=== PATIENT | male | born 1950 | race Caucasian/White ===

== ENCOUNTER 2023-12-16 09:33 | Outpatient (OUT) | payer MEDICARE, SELFPAY ==
--- OUTSIDE RECORDS SUMMARY | 2023-12-16 09:43 | XMS_ITS | CCD ---
Author Name Unknown Address [address] [place] [address] Organization [facility] Care Team Providers Care Linux Programmer Name Role Phone PHYSICIAN, DEFAULT Unavailable Unavailable PHYSICIAN, DEFAULT Unavailable Unavailable PHYSICIAN, DEFAULT Unavailable Unavailable PHYSICIAN, DEFAULT Unavailable Unavailable Cabrera Dupont Unavailable Cabrera Dupont MD Primary Care Provider Unavailable Unavailable Dr. Cabrera Dupont Primary Care Unavailab delilah Osborne, Dr. Mandie Piper Attending Irmai tiffanyle India, Dr. Mandie Piper Referring Unavai lable Self, Referral Referring Unavailable Hatipoglu, Dr. Mandie Piper Attending Syed Dupnot, Dr. Cabrera Gaspar Primary Care Unavailab delilah QUIROZ, DR JOSELUIS Austin Primary Care Unavailable TONY ADHIKARI Attending Unavailable TONY ADHIKARI Admitting Unavailable MISC, DR LOZADA Attending Unavailable GLOUCESTER, DR GEORGIE Erwin Consulting Unavailable QUIROZ, DR JOSELUIS Austin Primary Care Unavailable MISC, DR LOZADA Admitting Unavailable MISC, DR LOZADA Consulting Unavailable ELICEO ROSENBERG Admitting Unavailable QUIROZ, DR JOSELUIS Austin Primary Care Unavailable ELICEO ROSENBERG Attending Unavailable SHAKIRAELICEO Shepherd Consulting Unavailable MAUREENJANEE Consulting Unavailable MAUREENJANEE Admitting Unavailable MAUREENJANEE Attending Unavailable QUIROZ, DR JOSELUIS Austin Primary Care Unavailable QUIROZ, DR JOSELUIS Austin Consulting Unavailable RICHIE, DR JOSELUIS Austin Primary Care Unavailable MISC, DR LOZADA Attending Unavailable MISC, DR LOZADA Admitting Unavailable RICHIE, DR JOSELUIS Austin Primary Care Unavailable QUIROZ, DR JOSELUIS Austin Attending Unavailable QUIROZ, DR JOSELUIS Austin Admitting Unavailable ZIEBER, DR RAPHAEL Dacosta Consulting Unavailable PAY ., DR CARDOSO Attending Unavailable QUIROZ, DR JOSELUIS Austin Primary Care Unavailable PAY ., DR CARDOSO Admitting Unavailable PAY ., DR CARDOSO Consulting Unavailable HAY ., DR ANGEL Admitting Unavailable RICHIE, DR JOSELUIS Austin Primary Care Unavailable ALEJANDRO ., DR ANGEL Attending Unavailable HAY ., DR ANGEL Consulting Unavailable OZ, RY Consulting Unavailable BARAMALIAI, JESÚS Attending Unavailable SHAKIRA, ELICEO Attending Unavailable BARAZI, JESÚS Attending Unavailable SHAKIRA, ELICEO Admitting Unavailable SHAKIRA, ELICEO Attending Unavailable JACOB, DIDI Admitting Unavailable MEGAN, MARY Attending Unavailable SHAKIRA, ELICEO Admitting Unavailable SHAKIRA, ELICEO Attending Unavailable YEARTY, TONY Attending Unavailable BARAZI, JESÚS Attending Unavailable BARAZI, JESÚS Attending Unavailable SHAKIRA, ELICEO Referring Unavailable SHAKIRA, ELICEO Referring Unavailable SHAKIRA, ELICEO Referring Unavailable SHAKIRA, ELICEO Referring Unavailable SHAKIRA, ELICEO Attending Unavailable SHAKIRA, ELICEO Referring Unavailable MCKOY, LORY Referring Unavailable MCKOY, LORY Referring Unavailable MAUREEN, JANEE Attending Unavailable Joseluis Quiroz Unavailable Allergies Allergy Classification Reported Allergen(s) Allergy Type Date of Onset Reaction(s) Facility (2 sources) Lisinopril; Translations: [LISINOPRIL] Drug Allergy 04-28-2015 Other: See Comments [facility] Work Phone: Medications Current Medications Medication Drug Class(es) Dates Sig (Normalized) Sig (Original) Amiodarone (1 source) Antiarrhythmic Amiodarone Activ e apixaban 5 mg oral tablet (6 sources) Factor Xa Inhibitor take 1 tablet by mouth every twelve hours Eliquis 5 MG 1 tablet twice a day Active Ascorbic Acid / Beta Carotene / cuprous oxide / Lutein / sodium selenate / Vitamin E / Zinc Oxide (20 sources) Vitamin C Start: 07-12-2022 Ocuvite Adult 50+ Ocuvite Adult 50+( Oral 1 capusle every other day ) Active -Hx Entry Oral every other day for 0 *Pick strength-form from [facility] for eRX* Jul, Active Ocuvite TABS WYATT E 1 TABLET DAILY. Quantity: 0 Refills: 0 Ordered: 30-Nov-2020 DO Active BD Pen Needle Mini U/F (6 sources) BD Pen Needle Mi ni U/F BD Pen Needle Mini U/F , 2 (two) Injection Injection as directed # 2, 11/16/2021, Ref. x1. Active as directed for 90 days patient takes 2 injections daily Active 24 hr buPROPion hydrochloride 150 mg extended release oral tablet (20 sources) Aminoketone Start: 07-23-2022 take 1 tablet by mouth every twenty-four hours buPROPion HCl ER (XL) 150 MG 1 tablet in the morning Oral Once a day *Pick strength-form from [facility] for eRX* Jul, Active Start: 07-23-2022 take 1 tablet by woody th twice daily buPROPion HCl ER (XL) 150MG buPROPion HCl ER (XL) 150MG, 1 (one) Tablet Tablet two times daily # 180, 07/23/2022, Ref. x1. Active Oral two times daily for 0 *Pick strength-form from [facility] for eRX* Jul, Active Start: 04-13-2020 take 1 tablet by woody th twice daily buPROPion SR (ZYBAN SR; WELLBUTRIN SR) 150 mg 12 hr tablet Take 1 tablet by mouth twice daily. 180 tablet 1 04/13/2020 Active take 1 tablet by woody twice daily buPROPion HCl ER (XL) 150 MG TAKE 1 TABLET BY MOUTH TWICE A DAY Active take 1 tablet by woody once daily Wellbutrin SR 150 MG Oral Tablet Extended Release 12 Hour TAKE 1 TABLET EVERY 12 HOURS DAILY. Quantity: 0 Refills: 0 Ordered: 30-Nov-2020 DO Active Comment on above: Take 1 tablet by woody th twice daily. cabergoline 0.5 mg oral tablet (20 sources) Ergot Derivative Start: 04-13-20 20 Cabergoline 0.5MG Cabergoline( 0.5MG Oral every other day ) Active -Hx Entry Oral every other day for 0 *Pick strength-form from [facility] for eRX* Jul, Active Comment on above: Take one tablet ever y other day carvedilol 6.25 mg oral tablet (6 sources) alpha-Adrenergic Argelia, beta-Adrenergic Argelia take 1 tablet by mouth every twelve hours Carvedilol 6.25 MG 1 tablet twice a day Active Citracal Plus (5 sources) Citracal Plus Ac tive dapagliflozin 10 mg oral tablet (6 sources) Sodium-Glucose Cotransporter 2 Inhibitor take 1 tablet by mouth every twenty-four hours Farxiga 10 MG 1 tablet once a day Active escitalopram 10 mg oral tablet (5 sources) Serotonin Reuptake Inhibitor Start: 08-19-20 23 take 1 tablet by mouth every twenty-four hours Lexapro 10 MG 1 tablet Orally Once a day for 30 day(s) Aug, Active esomeprazole 40 mg delayed release oral capsule (20 sources) Proton Pump Inhibitor Esomeprazo le Magnesium 40 MG TAKE 1 CAPSULE DAILY for 90 Active take 1 capsule by mouth once karen ly esomeprazole 20 mg capsule Indications: Thyroid nodule , 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HCC) , Type II or unspecified type diabetes mellitus without mention of complication, uncontrolled , Hypogonadism male , Hypercalcemia Take 20 mg by mouth once daily. 0 Active Comment on above: Take 20 mg by mouth once daily. lisinopril 5 mg oral tablet (6 sources) Angiotensin Converting Enzyme Inhibitor take 1 tablet by mouth every twenty-four hours Lisinopril 5 MG 1 tablet once a day for 90 days Active sildenafil 25 mg oral tablet (6 sources) Phosphodiesterase 5 Inhibitor Start: 07-12-20 22 take 1 tablet by mouth once daily Sildenafil Citrate 25MG Sildenafil Citrate 25MG, 1 (one) Tablet daily as directed # 10, 07/12/2022, Ref. x2. Active Oral daily as directed for 30 *Pick strength-form from [facility] for eRX* Jul, Active take 1 tablet by woody once daily as needed Sildenafil Citrate 50 MG 1 tablet as nee ded Orally daily as directed for 30 days *Pick strength-form from [facility] for eRX* Active spironolactone 25 mg oral tablet (6 sources) Aldosterone Antagonist Aldactone 25 MG 1/2 tablet once a day Active Testosterone (20 sources) Androgen Start: 07-12-2022 AndroGel 50 MG/5GM(1%) AndroGel( 50 MG/5GM(1%) Transdermal daily ) Active -Hx Entry Transdermal daily for 0 *Reorder from [facility] for eRx and Interaction Alerts* Jul, Active Start: 11-30-2020 Testosterone 5 0 MG/5GM (1%) Transdermal Gel APPLY 1 PACKET ONE TIME DAILY DIRECTED Quantity: 90 Refills: 1 Ordered: 10-Oct-2022 Mandie Osborne MD Start : 30-Nov-2020 Active Start: 05-27-2020 End: 05-22-2024 Testosterone 50 MG/5GM (1%) 1 pump to skin in the morning to the underarm Transdermal Once a day for 90 days Jul, Active Comment on above: APPLY CONTENTS OF 1 PACKET TO AFFECTED AREA ONCE DAILY DIRECTED Completed/Discontinued Medications Medication Drug Class(es) Dates Sig (Normalized) Sig (Original) Ascorbic Acid (1 source) Vitamin C ASCORBIC ACID (VITAMIN C ORAL) Take by mouth once daily. 0 Active Comment on above: Take by mouth once d aily. aspirin 81 mg delayed release oral tablet (1 source) Platelet Aggregation Inhibitor, Nonsteroidal Anti-inflammatory Drug take 1 tablet by mouth once daily aspirin, enteric coated (ASPIRIN, ENTERIC COATED) 81 mg EC tablet Take 81 mg by mouth once daily. 0 Active Comment on above: Take 81 mg by mouth once daily. atorvastatin 10 mg oral tablet (20 sources) HMG-CoA Reductase Inhibitor Start: 01-21-2019 take 1 tablet by mouth once daily at bedtime atorvastatin (LIPITOR) 10 mg tablet Take 1 tablet by mouth daily at bedtime. 0 01/21/2019 Active Atorvastatin Wilfrid cium 40 MG 1/2 tab once a day Active take 1 tablet by mouth once chip y Atorvastatin Calcium 20 MG Oral Tablet TAKE 1 TABLET DAILY. Quantity: 90 Refills: 3 Ordered: 24-Apr-2022 Mandie Osborne MD Active Comment on above: Take 1 tablet by woody th daily at bedtime. Calcium Citrate (16 sources) Citracal TABS TA KE 1 TABLET TWICE DAILY. Quantity: 0 Refills: 0 Ordered: 30-Nov-2020 DO Active clopidogrel 75 mg oral tablet (16 sources) P2Y12 Platelet Inhibitor take 1 tablet by mouth once daily Plavix 75 MG Oral Tablet TAKE 1 TABLET DAILY. Quantity: 30 Refills: 6 Ordered: 30-Nov-2020 DO Active CYANOCOBALAMIN, VITAMIN B-12, (VITAMIN B-12 ORAL) (1 source) CYANOCOBALAMIN, VITAMIN B-12, (VITAMIN B-12 ORAL) Take by mouth once daily. 0 Active Comment on above: Take by mouth once d aily. docosahexaenoic acid 120 mg / eicosapentaenoic acid 180 mg oral capsule (16 sources) take 1 capsule by mouth once daily Fish Oil 1000 MG Oral Capsule Take one capsule daily Quantity: 0 Refills: 0 Ordered: 30-Nov-2020 DO Active hydrOXYzine hydrochloride 25 mg oral tablet (6 sources) Antihistamine take 1 tablet by mouth at bedtime as needed hydrOXYzine HCl - 25 MG Oral Tablet TAKE 1 TABLET AT BEDTIME NEEDED Quantity: 0 Refills: 0 Ordered: 30-Nov-2020 DO Active 3 ml insulin glargine 100 unt/ml pen injector (20 sources) Insulin Analog Start: 04-13-20 20 insulin glargine (LANTUS SOLOSTAR U-100 INSULIN) 100 unit/mL (3 mL) INJECT 50 UNITS UNDER THE SKIN TWICE A DAY 45 mL 1 04/13/2020 Active Lantus 30 Subcut aneous daily Active Lantus SoloStar 100 UNIT/ML Subcutaneous Solution Pen-injector INJECT 30 UNITS IN THE MORNING Quantity: 3 Refills: 3 Ordered: 10-Oct-2022 Mandie Osborne MD Active inject 25 [IU] by berrios bcutaneous injection in the morning, then inject 12 [IU] by subcutaneous injection at bedtime Lantus SoloStar 100 UNIT/ML Subcutaneous Solution Pen-injector Inject 25 units in the morning and 12 units at bedtime Quantity: 3 Refills: 3 Ordered: 21-Aug-2021 Mandie Osborne MD Active Comment on above: INJECT 50 UNITS UNDE R THE SKIN TWICE A DAY iv contrast (will be provided with radiology test) (1 source) Start: 01-22-20 19 iv contrast (will be provided with radiology test) Indications: Abnormal weight loss , Pituitary adenoma with extrasellar extension (HCC) MRI Pituitary Inject, intravenously, once for 1 dose. No IV access, insert saline lock prior to the beginning of sedation, infusion, injection of imaging exam. Discontinue saline lock post exam. If Pt. has a central line or IVAD, may access for administration according to line specific nursing protocol. Once exam is complete flush line and de-access according to line specific nursing protocol in the MR contrast administration guidelines link. 1 Each 1 01/21/2019 Active Comment on above: MRI Pituitary Inject , intravenously, once for 1 dose. No IV access, insert saline lock prior to the beginning of sedation, infusion, injection of imaging exam. Discontinue saline lock post exam. If Pt. has a central line or IVAD, may access for administration according to line specific nursing protocol. Once exam is complete flush line and de-access according to line specific nursing protocol in the MR contrast administration guidelines link. levothyroxine sodium 0.075 mg oral tablet (20 sources) l-Thyroxine Start: 04-13-20 take 0.5 tablet by mouth once daily Levothyroxine Sodium 75 MCG Oral Tablet take 1/2 tablet daily Quantity: 45 Refills: 1 Ordered: 29-May-2023 Mandie Osborne MD Start : 14-Nov-2021 Active Levothyroxine So dium 75 MCG 1/2 tab once a day Active Comment on above: Take 0.5 tablets by mouth once daily. melatonin 5 mg oral capsule (10 sources) Start: 04-24-2022 Melatonin 5 MG Oral Capsule TAKE 1 CAPSULE BY MOUTH NEEDED. Quantity: 0 Refills: 0 Ordered: 24-Apr-2022 DO Start : 24-Apr-2022 Active metFORMIN hydrochloride 500 mg oral tablet (20 sources) Biguanide Start: 12-20-2021 metFORMIN HCl - 1000 MG Oral Tablet Quantity: 180 Refills: 0 Ordered: 20-Dec-2021 DO Start : 20-Dec-2021 Active Start: 11-27-2021 take 1 tablet by woody th twice daily metFORMIN HCl 500 MG metFORMIN HCl 500MG, 1 (one) Tablet Tablet two times daily # 60, 11/27/2021, No Refill. Active Oral nightly for 0 days Nov, Active Start: 09-25-2019 metFORMIN (GLU COPHAGE) 500 mg tablet TAKE 2 TABLETS TWICE A DAY WITH MEALS 360 tablet 4 09/25/2019 Active take 1 tablet by woody th once daily metFORMIN HCl - 500 MG Oral Tablet TAKE 1 TABLET DAILY. Quantity: 90 Refills: 1 Ordered: 08-Nov-2021 Mandie Osborne MD Active Comment on above: TAKE 2 TABLETS TWICE A DAY WITH MEALS MULTIVIT &MINERALS/FERROUS FUM (MULTI VITAMIN ORAL) (1 source) MULTIVIT &MINERALS/FERROUS FUM (MULTI VITAMIN ORAL) Take by mouth once daily. 0 Active Comment on above: Take by mouth once d aily. 24 hr oxybutynin chloride 5 mg extended release oral tablet (6 sources) Cholinergic Muscarinic Antagonist take 1 tablet by mouth twice daily Oxybutynin Chloride ER 5 MG Oral Tablet Extended Release 24 Hour Take one tablet twice daily Quantity: 0 Refills: 0 Ordered: 30-Nov-2020 DO Active ramipril 5 mg oral capsule (6 sources) Angiotensin Converting Enzyme Inhibitor Start: take 1 capsule by mouth once daily Ramipril 5 MG Oral Capsule TAKE 1 CAPSULE ONCE DAILY. Quantity: 30 Refills: 11 Ordered: 10-Oct-2022 Mandie Osborne MD Start : 10-Oct-2022 Active Problems Active Problems Problem Classification Problem Date Documented Date Episodic/Chronic Abdominal pain (6 sources) Abdominal pain; Translations: [Unspecified abdominal pain] Episodic Anxiety disorders (9 sources) Anxiety; Translations: [Anxiety disorder, unspecified] Chronic Cardiac and circulatory congenital anomalies (2 sources) Patent foramen ovale; Translations: [Patent foramen ovale] Onset: 11-28-2022 Chronic Cardiac dysrhythmias (15 sources) Paroxysmal atrial fibrillation; Translations: [Unspecified atrial fibrillation] Onset: 10-16-2022 Chronic Conduction disorders (1 source) Unspecified right bundle-branch block; Translations: [UNSPECIFIED RT BUNDLE-BRANCH BLOCK] Onset: 11-13-2022 Chronic Congestive heart failure; nonhypertensive (15 sources) Chronic systolic (congestive) heart failure; Translations: [Acute on chronic systolic (congestive) heart failure] Onset: 11-13-2022 Chronic Diabetes mellitus with complications (20 sources) Type 2 diabetes mellitus; Translations: [Diabetes with other specified manifestations, type II or unspecified type, not stated as uncontrolled] Onset: 09-24-2012 09-08-2015 Chronic Diabetes mellitus without complication (3 sources) Type 2 diabetes mellitus without complications; Translations: [TYPE 2 DM WITHOUT COMPLICATIONS] Onset: 10-26-2022 Chronic Disorders of lipid metabolism (20 sources) Hyperlipidemia; Translations: [Other and unspecified hyperlipidemia] Onset: 06-26-2022 Chronic Esophageal disorders (1 source) Gastro-esophageal reflux disease without esophagitis; Translations: [GERD WITHOUT ESOPHAGITIS] Onset: 11-13-2022 Chronic Nausea and vomiting (6 sources) Nausea; Translations: [Nausea] Episodic Osteoarthritis (1 source) Unspecified osteoarthritis, unspecified site; Translations: [UNSPECIFIED OSTEOARTHRITIS UNS SITE] Onset: 11-13-2022 Chronic Other aftercare (6 sources) Long-term current use of insulin; Translations: [MCC (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 insulin] Episodic Other and unspecified benign neoplasm (16 sources) Pituitary macroadenoma; 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] Episodic Other circulatory disease (2 sources) Personal history of other diseases of the circulatory system; Translations: [Personal history of other diseases of the circulatory system] Onset: 05-03-2023 Episodic Other endocrine disorders (17 sources) Male hypogonadism; Translations: [Other testicular hypofunction] Onset: 12-23-2012 12-23-2012 Chronic Other endocrine disorders (6 sources) Hypogonadotropic hypogonadism; Translations: [Other anterior pituitary disorders] Chronic Other endocrine disorders (1 source) Testicular hypofunction; Translations: [TESTICULAR HYPOFUNCTION] Onset: 11-13-2022 Chronic Other male genital disorders (5 sources) Secondary erectile dysfunction; Translations: [Erectile dysfunction due to diseases classified elsewhere] Chronic Other male genital disorders (1 source) Erectile dysfunction due to diseases classified elsewhere Chronic Other nutritional; endocrine; and metabolic disorders (1 source) Hypercalcemia; Translations: [Hypercalcemia] Onset: 12-23-2012 12-23-2012 Chronic Other nutritional; endocrine; and metabolic disorders (6 sources) Loss of appetite; Translations: [Anorexia] Episodic Other nutritional; endocrine; and metabolic disorders (6 sources) Weight loss; Translations: [Abnormal weight loss] Episodic Other screening for suspected conditions (not mental disorders or infectious disease) (2 sources) Cardiovascular stress test abnormal; Translations: [Abnormal result of other cardiovascular function study] Onset: 04-28-2015 04-28-2015 Episodic Angelica-; endo-; and myocarditis; cardiomyopathy (except that caused by tuberculosis or sexually transmitted disease) (2 sources) Cardiomyopathy, unspecified; Translations: [Cardiomyopathy, unspecified] Onset: 10-26-2022 Chronic Residual codes; unclassified (2 sources) Other specified postprocedural states; Translations: [Other specified postprocedural states] Onset: 05-03-2023 Episodic 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; 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] Onset: 11-16-2009 11-16-2009 Chronic Unclassified (1 source) CONTACT W/AND (SUSP) EXPOS COVID-19; Translations: [CONTACT W/AND (SUSP) EXPOS COVID-19] Onset: 11-13-2022 Unclassified (2 sources) Other persistent atrial fibrillation; Translations: [Other persistent atrial fibrillation] Onset: 05-03-2023 Past or Other Problems Problem Classification Problem Date Documented Da te Episodic/Chronic Menopausal disorders (1 source) Hormone replacement therapy; Translations: [HORMONE REPLACEMENT THERAPY] Onset: 11-13-2022 Episodic Other aftercare (1 source) Other precision lens polisher (current) drug therapy; Translations: [OTH SNF CURRENT DRUG THERAPY] Onset: 11-13-2022 Episodic Other aftercare (1 source) budget counselor (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 oral hypoglycemic drugs; Translations: [SNF USE ORAL HYPOGLYCEMIC DX] Onset: 11-13-2022 Episodic Other aftercare (1 source) MCC (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 insulin; Translations: [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 CONVERTER OPERATOR CURRENT USE OF INSULIN] Onset: 11-13-2022 Episodic Other aftercare (1 source) MCC (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 aspirin; Translations: [SNF CURRENT USE OF ASPIRIN] Onset: 10-17-2022 Episodic Other and unspecified benign neoplasm (1 source) Prolactinoma; 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 gland] Onset: 11-16-2009 11-16-2009 Episodic Other and unspecified benign neoplasm (4 sources) Benign neoplasm of pituitary gland; Translations: [BENIGN NEOPLASM OF PITUITARY GLAND] Onset: 06-22-2022 Episodic Other circulatory disease (1 source) Personal history of transient ischemic attack (TIA), and cerebral infarction without residual deficits; Translations: [PERS HX TIA AND CI NO RESID DEFICIT] Onset: 11-13-2022 Episodic Other lower respiratory disease (5 sources) Shortness of breath; Translations: [SHORTNESS OF BREATH] Onset: 10-26-2022 Episodic Other lower respiratory disease (1 source) Dyspnea, unspecified; Translations: [DYSPNEA UNSPECIFIED] Onset: 10-17-2022 Episodic Screening and history of mental health and substance abuse codes (1 source) Personal history of nicotine dependence; Translations: [PERSONAL HISTORY OF NICOTINE DEPEND] Onset: 11-13-2022 Episodic Sprains and strains (1 source) Strain of rotator cuff of shoulder; Translations: [Strain of muscle(s) and tendon(s) of the rotator cuff of unspecified shoulder, initial encounter] Onset: 06-16-2013 06-16-2013 Episodic Syncope (2 sources) Syncope and collapse; Translations: [Syncope and collapse] Onset: 10-26-2022 Episodic Results Test Name Value Interpretation Reference Range Facility Office Visiton 07-30-2023 Follow-up visit [id number] Gadiel Liang 1950 M Date Provider Department Center 07/30/2023 JESÚS SIMPSON [facility] Family History Problem Relation Age of Onset No Known Problems Mother No Known Problems Father No Known Problems Sister No Known Problems Brother No Known Problems Mother's Sister No Known Problems Mother's Brother No Known Problems Father's Sister No Known Problems Father's Brother No Known Problems Maternal Grandmother No Known Problems Maternal Grandfather No Known Problems Paternal Grandmother No Known Problems Paternal Grandfather No Known Problems Other Family Status - Relation Status Age at Mother Father Sister Brother Mother's Sister Mother's Brother Father's Sister Father's Brother Maternal Grandmother Maternal Grandfather Paternal Grandmother Paternal Grandfather Other Level of Service:69171 [place] OFFICE/OUTPATIENT ESTABLISHED MOD MDM 30-39 MIN Normal [facility] Follow-Upon 06-05-2023 Follow-Up [id number] Gadiel Liang 1950 [facility] Provider Department Center 06/05/2023 JESÚS SIMPSON Family History Problem Relation Age of Onset No Known Problems Mother No Known Problems Father No Known Problems Sister No Known Problems Brother No Known Problems Mother's Sister No Known Problems Mother's Brother No Known Problems Father's Sister No Known Problems Father's Brother No Known Problems Maternal Grandmother No Known Problems Maternal Grandfather No Known Problems Paternal Grandmother No Known Problems Paternal Grandfather No Known Problems Other Family Status - Relation Status Age at Mother Father Sister Brother Mother's Sister Mother's Brother Father's Sister Father's Brother Maternal Grandmother Maternal Grandfather Paternal Grandmother Paternal Grandfather Other Level of Service:[id number] [place] OFFICE/OUTPATIENT ESTABLISHED MOD MDM 30-39 MIN Normal [facility] Telephoneon 05-30-2023 Telephone [id number] Gadiel Liang 1950 Date Provider Department Center 05/30/2023 Faride[facility] Family History Problem Relation Age of Onset No Known Problems Mother No Known Problems Father No Known Problems Sister No Known Problems Brother No Known Problems Mother's Sister No Known Problems Mother's Brother No Known Problems Father's Sister No Known Problems Father's Brother No Known Problems Maternal Grandmother No Known Problems Maternal Grandfather No Known Problems Paternal Grandmother No Known Problems Paternal Grandfather No Known Problems Other Family Status - Relation Status Age at Mother Father Sister Brother Mother's Sister Mother's Brother Father's Sister Father's Brother Maternal Grandmother Maternal Grandfather Paternal Grandmother Paternal Grandfather Other Normal [facility] Telephone [id number] GarthGadiel 1950 [facility] Provider Department Cyril 05/30/20231986MARLEY MORALES [facility] Family History Problem Relation Age of Onset No Known Problems Mother No Known Problems Father No Known Problems Sister No Known Problems Brother No Known Problems Mother's Sister No Known Problems Mother's Brother No Known Problems Father's Sister No Known Problems Father's Brother No Known Problems Maternal Grandmother No Known Problems Maternal Grandfather No Known Problems Paternal Grandmother No Known Problems Paternal Grandfather No Known Problems Other Family Status - Relation Status Age at Mother Father Sister Brother Mother's Sister Mother's Brother Father's Sister Father's Brother Maternal Grandmother Maternal Grandfather Paternal Grandmother Paternal Grandfather Other Reason for Visit and Comments: 3 week post ablation f/u [Other] [facility] Telephoneon 05-10-2023 Telephone [phone] GarthGadiel 1950 [facility] Department Cyril 05/10/20231986-[facility] [place] HeartVAS Family History Problem Relation Age of Onset No Known Problems Mother No Known Problems Father No Known Problems Sister No Known Problems Brother No Known Problems Mother's Sister No Known Problems Mother's Brother No Known Problems Father's Sister No Known Problems Father's Brother No Known Problems Maternal Grandmother No Known Problems Maternal Grandfather No Known Problems Paternal Grandmother No Known Problems Paternal Grandfather No Known Problems Other Family Status - Relation Status Age at Mother Father Sister Brother Mother's Sister Mother's Brother Father's Sister Father's Brother Maternal Grandmother Maternal Grandfather Paternal Grandmother Paternal Grandfather Other Reason for Visit and Comments: week f/u post ablation [Other] Normal [facility] BASIC METABOLIC PANELon 06-2 Anion gap [Moles/Vol] 9 mmol/L Normal 7-20 [facility] Comment on above: Performed By: #### L [id number] #### [facility] ([facility]) [address] [place] [address] Calcium [Mass/Vol] 8.9 mg/dL Normal 8.6-10.3 [facility] Comment on above: Performed By: #### L [id number] #### [facility] ([facility]) [address] [place] [address] Chloride [Moles/Vol] 104 mmol/L Normal 98-107 [facility] Comment on above: Performed By: #### L [id number] #### [facility] ([facility]) [address] [place] [address] CO2 [Moles/Vol] 28 mmol/L Normal 21-31 [facility] Comment on above: Performed By: #### L [id number] #### [facility] ([facility]) [address] [place] [address] Creatinine [Mass/Vol] 0.79 mg/dL Normal 0.70-1.30 [facility] Comment on above: Performed By: #### L [id number] #### [facility] ([facility]) [address] [place] [address] GLOMERULAR FILTRATION RATE ML/MIN/1.73 SQ M.PREDICTED 95.0 mL/min/1.73m*2 Normal >60.0 [place] [facility] Comment on above: Result Comment: The [facility]???s estimated glomerular filtration rate (eGFR) will no longer include consideration of race in its calculation. The National Kidney Foundation???s eGFR Task Force developed new recommendations for the estimation of the glomerular filtration rate in the [place] They recommend immediate implementation of the new equation refit without the race variable in all laboratories because the calculation does not include race. In addition to not including race in the calculation and reporting, it included diversity in its development, and has acceptable performance characteristics and potential consequences that do not disproportionately affect any one group of individuals. Performed By: #### L [id number] #### [facility] ([facility]) [address] [place] [address] Glucose [Mass/Vol] 176 mg/dL High 70-100 [facility] Comment on above: Performed By: #### L [id number] #### [facility] ([facility]) [address] [place] [address] Potassium [Moles/Vol] 3.6 mmol/L Normal 3.5-5.1 [facility] Comment on above: Performed By: #### L [id number] #### [facility] ([facility]) [address] [place] [address] Sodium [Moles/Vol] 137 mmol/L Normal 136-145 [facility] Comment on above: Performed By: #### L [id number] #### [facility] ([facility]) [address] [place] [address] Urea nitrogen [Mass/Vol] 11 mg/dL Normal 7-25 [facility] Comment on above: Performed By: #### L [id number] #### [facility] ([facility]) [address] [place] [address] UREA NITROGEN/CREATININE (MASS RATIO) IN SER/PLAS 13.9 Normal [facility] Comment on above: Performed By: #### L [id number] #### [facility] ([facility]) [address] [place] [address] CBCon 05-03-2023 Erythrocyte distribution width (RBC) [Ratio] 12.8 % Normal 11.5-15.0 [facility] Comment on above: Performed By: #### L [id number] #### [facility] ([facility]) [address] [place] [address] ERYTHROCYTE MEAN CORPUSCULAR HEMOGLOBIN CONCENTRATION (G/DL) BY AUTOMATED 32.1 g/dL Normal 32.0-35.0 [facility] Comment on above: Performed By: #### L [id number] #### [facility] ([facility]) [address] [place] [address] Hematocrit (Bld) [Volume fraction] 39.3 % Normal 39.0-55.0 [facility] Comment on above: Performed By: #### L [id number] #### [facility] ([facility]) [address] [place] [address] Hemoglobin (Bld) [Mass/Vol] 12.6 g/dL Low 13.0-17.0 [facility] Comment on above: Performed By: #### L [id number] #### [facility] ([facility]) [address] [place] [address] MCH (RBC) [Entitic mass] 29.9 pg Normal 27.0-33.0 [facility] Comment on above: Performed By: #### L [id number] #### [facility] ([facility]) [address] [place] [address] MCV (RBC) [Entitic vol] 93.3 fL Normal 82.0-98.0 [facility] Comment on above: Performed By: #### L [id number] #### [facility] ([facility]) [address] [place] [address] PLATELETS (10*3/UL) IN BLOOD AUTOMATED COUNT 179 10*3/uL Normal 150-400 [facility] Comment on above: Performed By: #### L [id number] #### [facility] ([facility]) [address] [place] [address] RBC (Bld) [#/Vol] 4.21 10*6/uL Normal 4.20-5.70 [facility] Comment on above: Performed By: #### L [id number] #### [facility] ([facility]) [address] [place] [address] WBC (Bld) [#/Vol] 8.32 10*3/uL Normal 4.00-10.60 [facility] Comment on above: Performed By: #### L [id number] #### [facility]) [place] [address] DSon 05-03-2023 DS -- Attestation signed by Eliceo Rosenberg MD at 05/05/2023 4:30 PM By using the attestations below, the signing clinician agrees that I have read and verify that the documentation has been personally reviewed by me and ensure that the documentation accurately reflects the encounter. GC: I personally saw this patient on the day of the encounter, performed the chappell portion(s) of the service and participated in the management and confirm the resident's documentation. Please note there may be an additional personal documentation from me. Admission Admitted 05/02/2023 for Persistent atrial fibrillation (CM* Discharge Diagnosis Persistent atrial fibrillation (CMS/HCC) s/p ablation Discharge Disposition Home or Self Care Discharge Medications Your medication list START taking these medications Instructions Last Dose Given Next Dose Due famotidine 20 mg tablet Commonly known as: Pepcid Take 1 tablet (20 mg) by mouth in the morning and at bedtime. sucralfate 1 gram tablet Commonly known as: Carafate Take 1 tablet (1 g) by mouth in the morning, at noon, and at bedtime for 14 days. CHANGE how you take these medications Instructions Last Dose Given Next Dose Due amiodarone 200 mg tablet Commonly known as: Pacerone What changed: Another medication with the same name was removed. Continue taking this medication, and follow the directions you see here. Take 1 tablet (200 mg) by mouth in the morning. atorvastatin 40 mg tablet Commonly known as: Lipitor What changed: Another medication with the same name was removed. Continue taking this medication, and follow the directions you see here. Take 1 tablet (40 mg) by mouth at bedtime for 30 doses. carvedilol 6.25 mg tablet Commonly known as: Coreg What changed: Another medication with the same name was removed. Continue taking this medication, and follow the directions you see here. Take 1 tablet (6.25 mg) by mouth in the morning and at bedtime for 60 doses. dapagliflozin 10 mg Commonly known as: Farxiga What changed: Another medication with the same name was removed. Continue taking this medication, and follow the directions you see here. Take 1 tablet (10 mg) by mouth in the morning. furosemide 40 mg tablet Commonly known as: Lasix What changed: when to take this reasons to take this Take 1 tablet by mouth daily for fluid retention as directed CONTINUE taking these medications Instructions Last Dose Given Next Dose Due apixaban 5 mg tablet Commonly known as: Eliquis Take 1 tablet (5 mg) by mouth in the morning and at bedtime. buPROPion SR 150 mg 12 hr tablet Commonly known as: Wellbutrin SR cabergoline 0.5 mg tablet Commonly known as: Dostinex esomeprazole [address] capsule Commonly known as: NexIUM Lantus Solostar U-100 Insulin 100 unit/mL (3 mL) pen Generic drug: insulin glargine levothyroxine 75 mcg tablet Commonly known as: Synthroid, Levoxyl lisinopril 5 mg tablet Take 1 tablet (5 mg) by mouth in the morning. metFORMIN 500 mg tablet Commonly known as: Glucophage sildenafil 25 mg tablet Commonly known as: Viagra spironolactone 25 mg tablet Commonly known as: Aldactone Take 0.5 tablets (12.5 mg) by mouth in the evening. Do not start before November 02, 2022. testosterone 50 mg/5 gram (1 %) gel Commonly known as: Androgel STOP taking these medications donepezil 5 mg tablet Commonly known as: Aricept oxybutynin 5 mg tablet Commonly known as: Ditropan Where to Get Your Medications These medications were sent to [facility]/pharmacy #[id number] - [place], [facility] [address] [facility] [address] [address] famotidine 20 mg tablet sucralfate 1 gram tablet Activity No lifting > / = 5 lbs for 1 week No strenuous activity for 1 week No driving for 24 hours following surgery or while using narcotic pain medication. May shower starting 24 hours after procedure May tub bathe/swim starting 1 week after procedure Diet Resume previous diet Allergies Lisinopril and No known allergies Hospital Course Patient is a 72 y/o M with known PMHx of PAF, HFrEF (recovered after sustaining SR), TIA x2, DM type II, HTN, vasovagal syncope who presented to [facility] for an elective a.fib ablation on 05/02/2023. He tolerated procedure well. No acute events overnight. He denies c/o CP, dyspnea, orthopnea, PND, LE edema, dizziness/LH, palpitations, bleeding issues. His BP has been higher than goal. He reports it is typically well controlled when he goes to cardiac rehab. Discussed increasing medications. He would like to hold off on increasing his medications and he will monitor his BP at home. He will call the clinic if he continues to have issues with high BP readings, otherwise he will (more content not included)... Normal [facility] POCT GLUCOSE METER UNSOLICIT ED RESULTSon 05-03-2023 Glucose [Mass/Vol] 289 mg/dL High 70-105 [facility] Comment on above: Order Comment: Waive d Testing in the ED is performed under the ED CLIA certificate #[id number]. Result Comment: libia [email or web address] Performed By: #### L [id number] #### [facility] ([facility]) [address] [place] [address] Glucose [Mass/Vol] 176 mg/dL High 70-105 [facility] Comment on above: Order Comment: Waive d Testing in the ED is performed under the ED CLIA certificate #[id number]. Result Comment: libia dou2 Performed By: #### L [id number] ####[facility] ([facility])[address] [place] [address] HPon 05-02-2023 HP -- Attestation signed by Eliceo Rosenberg MD at 05/05/2023 4:30 PM By using the attestations below, the signing clinician agrees that I have read and verify that the documentation has been personally reviewed by me and ensure that the documentation accurately reflects the encounter. GC: I personally saw this patient on the day of the encounter, performed the chappell portion(s) of the service and participated in the management and confirm the resident's documentation. Please note there may be an additional personal documentation from me. H&P reviewed. The patient was examined and there are no changes to the H&P. Normal [facility] NURSNOTEon 05-02-2023 NURSNOTE went home for t he evening. Will call with room number when patient gets a bed. Normal [facility] POCT GLUCOSE METER UNSOLICIT ED RESULTSon 05-02-2023 Glucose [Mass/Vol] 125 mg/dL High 70-105 [facility] Comment on above: Order Comment: Waive d Testing in the ED is performed under the ED CLIA certificate #[id number]. Result Comment: [email or web address] Performed By: #### L [id number] #### [facility] ([place]) [address] [place] [address] Glucose [Mass/Vol] 113 mg/dL High 70-105 [facility] Comment on above: Order Comment: Waive d Testing in the ED is performed under the ED CLIA certificate #[id number]. Result Comment: lwag enh Performed By: #### L [id number] #### [facility] ([facility]) [address] [place] [address] Glucose [Mass/Vol] 108 mg/dL High 70-105 [facility] Comment on above: Order Comment: Waive d Testing in the ED is performed under the ED CLIA certificate #[id number]. Result Comment: mwer nert Performed By: #### L [id number] #### [facility] ([facility]) [address] [place] [address] Glucose [Mass/Vol] 198 mg/dL High 70-105 [facility] Comment on above: Order Comment: Waive d Testing in the ED is performed under the ED CLIA certificate #[id number]. Result Comment: aepp ink Performed By: #### L [id number] #### [facility] ([facility]) [address] [place] [address] PROTIME-INRon 05-02-2023 INR IN PPP BY COAGULATION ASSAY 0.98 Normal 0.90-1.10 [facility] Comment on above: Result Comment: ACCC P RECOMMENDED INR FOR WARFARIN THERAPY CONDITION INR PROPHYLAXIS OF VENOUS THROMBOSIS 2-3 (HIGH-RISK SURGERY) TREATMENT OF VENOUS THROMBOSIS 2-3 TREATMENT OF PULMONARY EMBOLISM 2-3 PREVENTION OF SYSTEMIC EMBOLISM: 2-3 ACUTE MYOCARDIAL INFARCTION TISSUE HEART VALVES VALVULAR HEART DISEASE ATRIAL FIBRILLATION RECURRENT SYSTEMIC EMBOLISM MECHANICAL HEART VALVE 2.5-3.5 FROM: ORAL ANTICOAGULANTS. MECHANISM OF ACTION, CLINICAL EFFECTIVENESS, AND OPTIMAL THERAPEUTIC RANGE. CHEST 1995;108:231S-246S. Performed By: #### L [id number] #### [facility] ([facility]) [address] [place] [address] PROTHROMBIN TIME (PT) IN PPP BY COAGULATION ASSAY 12.9 Seconds Normal 12.3-14.8 [facility] Comment on above: Performed By: #### L [id number] #### [facility] ([place]) [address] [place] [address] HPon 04-30-2023 [facility] Electrophysiology Consult Note [facility] Date of Telehealth Visit: 04/30/23 The patient was notified that using 3rd republican telecommunication application (e.g., [employer]) is not HIPPA compliant and may carry some privacy risks. Yes The visit was conducted [id number] with the use of audio and video technology Doxy[employer] between patient and provider for a virtual visit. Verbal consent to provide and bill this service was obtained on 04/30/23 . No signature was obtained due to the COVID-19 pandemic. Patient Location: Patient Home I spent 16 minutes of total time on the day of the visit. This time was spent preparing for the visit, obtaining and reviewing any outside history/data, taking a history, performing an exam/evaluation, counseling and educating patient/family about the diagnosis and plan, performing medical decision making, referring to and communicating with other health care referrals, independently interpreting results and documenting in the EMR, and coordinating care. Please see the additional documentation in this note for specific details. Reason for Consultation: Atrial fibrillation HPI: Patient is wanting to discuss about ablation as he s/p conversion to sinus rhythm with Amio. Echocardiogram showed improved EF which was done 02/28/2023 shows normal EF 55 to 60%, moderate dilatation of left atrium. Patient feels well denies any chest pain, shortness of breath, LE edema, EKG 01/29/23 SR. Prior HPI: Gadiel Liang is a 72 y.o. 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 Gadiel is here regarding feeling lightheaded with palpitations on 10/15 and he went to the [facility] emergency department was found to be in A. fib. They did not start him on anything for rate control, rhythm control, or blood thinners. He has not had a cardioversion in the past. And has not received treatment for A. fib in the past. At this time he denies chest pain palpitations lightheadedness dizziness and presyncope. His is on the phone on speaker phone during exam. PMH: Past Medical History: Diagnosis Date Atrial fibrillation (CMS/HCC) AV block, 1st degree CHF (congestive heart failure) (CMS/HCC) Diabetes mellitus (CMS/HCC) GERD (gastroesophageal reflux disease) Hypothyroidism Memory changes PFO (patent foramen ovale) 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CMS/HCC) Stroke (CMS/HCC) TIA (transient ischemic attack) PSH: Past Surgical History: Procedure Laterality Date CARDIAC CATHETERIZATION CARPAL TUNNEL RELEASE CATARACT EXTRACTION COLONOSCOPY PARATHYROIDECTOMY SHOULDER SURGERY VASECTOMY SH: Social Determinants of Health Tobacco Use: Medium Risk Smoking Tobacco Use: Former Smokeless Tobacco Use: Never Passive Exposure: Not on file Alcohol Use: Not on file Financial Resource Strain: Not on file Food Insecurity: Not on file Transportation Needs: Not on file Physical Activity: Not on file Stress: Not on file Social Connections: Not on file Intimate Partner Violence: Not on file Depression: Not on file Housing Stability: Not on file Allergies: Allergies Allergen Reactions Lisinopril Overwhelming fatigue still takes daily Weight: No results found for: PTWEIGHT Meds: Current Outpatient Medications on File Prior to Visit Medication Sig Dispense Refill amiodarone (Pacerone) 200 mg tablet Take 1 tablet (200 mg) by mouth with breakfast and with evening meal for 198 doses. Do not start before November 27, 2022. 60 tablet 3 amiodarone (Pacerone) 200 mg tablet Take 1 tablet (200 mg) by mouth in the morning. 90 tablet 3 apixaban (Eliquis) 5 mg tablet Take 1 tablet (5 mg) by mouth in the morning and at bedtime. 60 tablet 11 atorvastatin (Lipitor) 40 mg tablet Take 1 tablet (40 mg) by mouth at bedtime for 30 doses. 90 tablet 3 atorvastatin (Lipitor) 40 mg tablet Take 40 mg by mouth in the morning. buPROPion SR (Wellbutrin SR) 150 mg 12 hr tablet Take 1 tablet twice a day by oral route. cabergoline (Dostinex) 0.5 mg tablet Take 1 tablet every other day by oral route. carvedilol (Coreg) 6.25 mg tablet Take 1 tablet (6.25 mg) by mouth in the morning and at bedtime for 60 doses. 180 tablet 3 carvedilol (Coreg) 6.25 mg tablet Take by mouth with breakfast and with evening meal. dapagliflozin (Farxiga) 10 mg Take 1 tablet (10 mg) by mouth in the morning. 90 tablet 3 dapagliflozin (Farxiga) 10 mg Take by mouth. donepezil (Aricept) 5 mg tablet TAKE 1 TABLET BY MOUTH EVERY DAY AT BEDTIME FOR 30 DAYS esomeprazole (NexIUM) [address] capsule Take 40 mg by mouth before breakfast. Do not open capsule. furosemide (Lasix) 40 mg tablet Take 1 tablet by mouth daily for fluid retention as directed (Patient taking differently: if needed each day. Take 1 tablet by mouth daily for fluid retention as directed) 90 tablet 3 Lantus Solost (more content not included)... [facility] Telemedicineon 04-30-2023 Telemedicine [id number] Gadiel Liang 1950 M Date Provider Department Center 04/30/2023 ELICEO FORTE RO [facility] Family History Problem Relation Age of Onset No Known Problems Mother No Known Problems Father No Known Problems Sister No Known Problems Brother No Known Problems Mother's Sister No Known Problems Mother's Brother No Known Problems Father's Sister No Known Problems Father's Brother No Known Problems Maternal Grandmother No Known Problems Maternal Grandfather No Known Problems Paternal Grandmother No Known Problems Paternal Grandfather No Known Problems Other Family Status - Relation Status Age at Mother Father Sister Brother Mother's Sister Mother's Brother Father's Sister Father's Brother Maternal Grandmother Maternal Grandfather Paternal Grandmother Paternal Grandfather Other Level of Service:[address] [place] PHYS/QHP TELEPHONE EVALUATION 11-20 MIN [facility] [id number] 04-26-2023 [id number] Nothing to eat or drink after midnight Hold MVI, Herbal Supplements, NSAIDS x 7 days Hold the prescription meds we spoke about: ELIQUIS 48 HRS PRIOR TO PROCEDURE Take the meds we spoke about w/a sip of water DOS: LANTUS, SYNTHROID, AMIODARONE, COREG, WELBUTRIN, NEXIUM [facility] B-TYPE NATRIURETIC PEPTIDEon 04-26-2023 Natriuretic peptide B (Bld) [Mass/Vol] 87 pg/mL Normal 0-100 [facility] Comment on above: Performed By: #### L [id number] #### [facility] ([facility]) [address] [place] [address] CBC WITH AUTO DIFFERENTIALon 04-26-2023 Basophils (Bld) [#/Vol] 0.04 10*3/uL Normal 0.00-0.20 [facility] Comment on above: Performed By: #### L [id number] #### [facility] ([facility]) [address] [place] [address] Basophils/100 WBC (Bld) 0.6 % Normal 0.0-1.0 [facility] Comment on above: Performed By: #### L [id number] #### [facility] ([facility]) [address] [place] [address] Eosinophils (Bld) [#/Vol] 0.21 10*3/uL Normal 0.00-0.50 [facility] Comment on above: Performed By: #### L [id number] #### [facility] ([facility]) [address] [place] [address] Eosinophils/100 WBC (Bld) 3.2 % Normal 0.0-6.0 [facility] Comment on above: Performed By: #### L [id number] #### [facility] ([facility]) [address] [place] [address] Erythrocyte distribution width (RBC) [Ratio] 13.2 % Normal 11.5-15.0 [facility] Comment on above: Performed By: #### L [id number] #### [facility] ([facility]) [address] [place] [address] ERYTHROCYTE MEAN CORPUSCULAR HEMOGLOBIN CONCENTRATION (G/DL) BY AUTOMATED 33.6 g/dL Normal 32.0-35.0 [facility] Comment on above: Performed By: #### L [id number] #### [facility] ([facility]) [address] [place] [address] Hematocrit (Bld) [Volume fraction] 39.9 % Normal 39.0-55.0 [facility] Comment on above: Performed By: #### L [id number] #### [facility] ([facility]) [address] [place] [address] Hemoglobin (Bld) [Mass/Vol] 13.4 g/dL Normal 13.0-17.0 [facility] Comment on above: Performed By: #### L [id number] #### [facility] ([facility]) [address] [place] [address] Immature granulocytes (Bld) [#/Vol] 0.09 10*3/uL Normal 0.00-0.20 [facility] Comment on above: Performed By: #### L [id number] #### [facility] ([facility]) [address] [place] [address] Immature granulocytes/100 WBC (Bld) 1.4 % High 0.0-1.0 [facility] Comment on above: Performed By: #### L [id number] #### [facility] ([facility]) [address] [place] [address] Lymphocytes (Bld) [#/Vol] 1.30 10*3/uL Normal 1.20-4.00 [facility] Comment on above: Performed By: #### L [id number] #### [facility] ([facility]) [address] [place] [address] Lymphocytes/100 WBC (Bld) 19.9 % Low 20.0-45.0 [facility] Comment on above: Performed By: #### L [id number] #### [facility] (BEAKER) [address] [place] [address] MCH (RBC) [Entitic mass] 30.8 pg Normal 27.0-33.0 [facility] Comment on above: Performed By: #### L [id number] #### [facility] (BEAKER) [address] [place] [address] MCV (RBC) [Entitic vol] 91.7 fL Normal 82.0-98.0 [facility] Comment on above: Performed By: #### L [id number] #### [facility] (BANNER) [address] [place] [address] Monocytes (Bld) [#/Vol] 0.77 10*3/uL Normal 0.10-1.00 [facility] Comment on above: Performed By: #### L [id number] #### [facility] ([facility]) [address] [place] [address] Monocytes/100 WBC (Bld) 11.8 % Normal 5.0-12.0 [facility] Comment on above: Performed By: #### L [id number] #### [facility] ([facility]) [address] [place] [address] Neutrophils (Bld) [#/Vol] 4.12 10*3/uL Normal 1.60-7.60 [facility] Comment on above: Performed By: #### L [id number] #### [facility] ([facility]) [address] [place] [address] Neutrophils/100 WBC (Bld) 63.1 % Normal 40.0-72.0 [facility] Comment on above: Performed By: #### L [id number] #### [facility] ([facility]) [address] [place] [address] NRBC (PER 100 WBCS) BY AUTOMATED COUNT 0.0 % Normal 0 [facility] Comment on above: Performed By: #### L [id number] #### [facility] ([facility]) [address] [place] [address] PLATELETS (10*3/UL) IN BLOOD AUTOMATED COUNT 183 10*3/uL Normal 150-400 [facility] Comment on above: Performed By: #### L [id number] #### [facility] ([facility]) [address] [place] [address] RBC (Bld) [#/Vol] 4.35 10*6/uL Normal 4.20-5.70 [facility] Comment on above: Performed By: #### L [id number] #### [facility] ([facility]) [address] [place] [address] WBC (Bld) [#/Vol] 6.53 10*3/uL Normal 4.00-10.60 [facility] Comment on above: Performed By: #### L [id number] #### [facility] ([facility]) [address] [place] [address] COMPREHENSIVE METABOLIC PANE Harlan 04-26-2023 Albumin [Mass/Vol] 4.1 g/dL Normal 3.5-5.7 [facility] Comment on above: Performed By: #### L [id number] ####[facility] ([facility])[address] [place] [address] ALP [Catalytic activity/Vol] 57 U/L Normal 34-104 [facility] Comment on above: Performed By: #### L [id number] ####[facility] ([facility])[address] [place] [address] ALT [Catalytic activity/Vol] 42 U/L Normal 7-52 [facility] Comment on above: Performed By: #### L [id number] ####[facility] ([facility])[address] [place] [address] Anion gap [Moles/Vol] 13 mmol/L Normal 7-20 [facility] Comment on above: Performed By: #### L [id number] ####[facility] ([facility])[address] [place] [address] AST [Catalytic activity/Vol] 29 U/L Normal 13-39 [facility] Comment on above: Performed By: #### L [id number] ####[facility] ([facility])[address] [place] [address] Bilirubin [Mass/Vol] 0.9 mg/dL Normal 0.3-1.0 [facility] Comment on above: Performed By: #### L [id number] ####[facility] (BEAKER)[address] [place] [address] Calcium [Mass/Vol] 9.2 mg/dL Normal 8.6-10.3 [facility] Comment on above: Performed By: #### L [id number] ####[facility] ([facility])[address] [place] [address] Chloride [Moles/Vol] 106 mmol/L Normal 98-107 [facility] Comment on above: Performed By: #### L [id number] ####[facility] ([facility]NER)[address] [place] [address] CO2 [Moles/Vol] 23 mmol/L Normal 21-31 [facility] Comment on above: Performed By: #### L [id number] ####[facility] ([facility])[address] [place] [address] Creatinine [Mass/Vol] 1.11 mg/dL Normal 0.70-1.30 [facility] Comment on above: Performed By: #### L [id number] ####[facility] ([facility])[address] [place] [address] GLOMERULAR FILTRATION RATE ML/MIN/1.73 SQ M.PREDICTED 71.0 mL/min/1.73m*2 Normal >60.0 [facility] Comment on above: Result Comment: The [facility]???s estimated glomerular filtration rate (eGFR) will no longer include consideration of race in its calculation. The National Kidney Foundation???s eGFR Task Force developed new recommendations for the estimation of the glomerular filtration rate in the [place] They recommend immediate implementation of the new equation refit without the race variable in all laboratories because the calculation does not include race. In addition to not including race in the calculation and reporting, it included diversity in its development, and has acceptable performance characteristics and potential consequences that do not disproportionately affect any one group of individuals. Performed By: #### L [id number] ####[facility] ([facility])[address] [place] [address] Glucose [Mass/Vol] 224 mg/dL High 70-100 [facility] Comment on above: Performed By: #### L [id number] ####[facility] ([facility])[address] [place] [address] Potassium [Moles/Vol] 4.2 mmol/L Normal 3.5-5.1 [facility] Comment on above: Performed By: #### L [id number] ####[facility] ([facility])[address] [place] [address] Protein [Mass/Vol] 6.9 g/dL Normal 6.0-8.3 [facility] Comment on above: Performed By: #### L [id number] ####[facility] ([facility])[address] [place] [address] Sodium [Moles/Vol] 138 mmol/L Normal 136-145 [facility] Comment on above: Performed By: #### L [id number] ####[facility] ([facility])[address] [place] [address] Urea nitrogen [Mass/Vol] 22 mg/dL Normal 7-25 [facility] Comment on above: Performed By: #### L [id number] ####[facility] ([facility])[address] [place] [address] UREA NITROGEN/CREATININE (MASS RATIO) IN SER/PLAS 19.8 Normal [facility] Comment on above: Performed By: #### L [id number] ####[facility] ([facility])[address] [place] [address] MAGNESIUMon 04-26-2023 Magnesium [Mass/Vol] 1.9 mg/dL Normal 1.9-2.7 [facility] Comment on above: Performed By: #### L [id number] #### [facility] ([facility]) [address] [place] [address] Orders Onlyon 04-26-2023 Orders Only [id number] Gadiel Liang 1950 M Date Provider Department Center 04/26/2023 [id number], TONY Alt[place]irano Family History Problem Relation Age of Onset No Known Problems Mother No Known Problems Father No Known Problems Sister No Known Problems Brother No Known Problems Mother's Sister No Known Problems Mother's Brother No Known Problems Father's Sister No Known Problems Father's Brother No Known Problems Maternal Grandmother No Known Problems Maternal Grandfather No Known Problems Paternal Grandmother No Known Problems Paternal Grandfather No Known Problems Other Family Status - Relation Status Age at Mother Father Sister Brother Mother's Sister Mother's Brother Father's Sister Father's Brother Maternal Grandmother Maternal Grandfather Paternal Grandmother Paternal Grandfather Other Normal [facility] Orders Only [id number] Gadiel Liang 1950 [facility] Provider Department Center 04/26/2023 JES[facility]S SIMPSON [facility] Family History Problem Relation Age of Onset No Known Problems Mother No Known Problems Father No Known Problems Sister No Known Problems Brother No Known Problems Mother's Sister No Known Problems Mother's Brother No Known Problems Father's Sister No Known Problems Father's Brother No Known Problems Maternal Grandmother No Known Problems Maternal Grandfather No Known Problems Paternal Grandmother No Known Problems Paternal Grandfather No Known Problems Other Family Status - Relation Status Age at Mother Father Sister Brother Mother's Sister Mother's Brother Father's Sister Father's Brother Maternal Grandmother Maternal Grandfather Paternal Grandmother Paternal Grandfather Other Normal [facility] Orders Only [id number] Gadiel Liang 1950 [facility] Department Center 04/26/2023 JANEE JAIME [facility] Family History Problem Relation Age of Onset No Known Problems Mother No Known Problems Father No Known Problems Sister No Known Problems Brother No Known Problems Mother's Sister No Known Problems Mother's Brother No Known Problems Father's Sister No Known Problems Father's Brother No Known Problems Maternal Grandmother No Known Problems Maternal Grandfather No Known Problems Paternal Grandmother No Known Problems Paternal Grandfather No Known Problems Other Family Status - Relation Status Age at Mother Father Sister Brother Mother's Sister Mother's Brother Father's Sister Father's Brother Maternal Grandmother Maternal Grandfather Paternal Grandmother Paternal Grandfather Other Normal [facility] PROTIME-INRon 04-26-2023 INR IN PPP BY COAGULATION ASSAY 1.27 High 0.90-1.10 [facility] Comment on above: Result Comment: ACCC P RECOMMENDED INR FOR WARFARIN THERAPY CONDITION INR PROPHYLAXIS OF VENOUS THROMBOSIS 2-3 (HIGH-RISK SURGERY) TREATMENT OF VENOUS THROMBOSIS 2-3 TREATMENT OF PULMONARY EMBOLISM 2-3 PREVENTION OF SYSTEMIC EMBOLISM: 2-3 ACUTE MYOCARDIAL INFARCTION TISSUE HEART VALVES VALVULAR HEART DISEASE ATRIAL FIBRILLATION RECURRENT SYSTEMIC EMBOLISM MECHANICAL HEART VALVE 2.5-3.5 FROM: ORAL ANTICOAGULANTS. MECHANISM OF ACTION, CLINICAL EFFECTIVENESS, AND OPTIMAL THERAPEUTIC RANGE. CHEST 1995;108:231S-246S. Performed By: #### L [id number] ####[facility] (BEAKER)[address] [place] [address] PROTHROMBIN TIME (PT) IN PPP BY COAGULATION ASSAY 15.9 Seconds High 12.3-14.8 [facility] Comment on above: Performed By: #### L [id number] ####[facility] (BEAKER)[address] [place] [address] Prep for Procedureon 023 Prep for Procedure [id number] Gadiel Liang 1950 M Date Provider Department Center 03/29/20231986-MARLEY MORALES [facility] Count includes the [facility] Family History Problem Relation Age of Onset No Known Problems Mother No Known Problems Father No Known Problems Sister No Known Problems Brother No Known Problems Mother's Sister No Known Problems Mother's Brother No Known Problems Father's Sister No Known Problems Father's Brother No Known Problems Maternal Grandmother No Known Problems Maternal Grandfather No Known Problems Paternal Grandmother No Known Problems Paternal Grandfather No Known Problems Other Family Status - Relation Status Age at Mother Father Sister Brother Mother's Sister Mother's Brother Father's Sister Father's Brother Maternal Grandmother Maternal Grandfather Paternal Grandmother Paternal Grandfather Other Normal [facility] Office Visiton 03-20-2023 Follow-up visit [id number] Gadiel Liang 1950 M Date Provider Department Center 03/20/2023 Uriah6-JESÚS BOLA[facility]OS [facility] Family History Problem Relation Age of Onset No Known Problems Mother No Known Problems Father No Known Problems Sister No Known Problems Brother No Known Problems Mother's Sister No Known Problems Mother's Brother No Known Problems Father's Sister No Known Problems Father's Brother No Known Problems Maternal Grandmother No Known Problems Maternal Grandfather No Known Problems Paternal Grandmother No Known Problems Paternal Grandfather No Known Problems Other Family Status - Relation Status Age at Mother Father Sister Brother Mother's Sister Mother's Brother Father's Sister Father's Brother Maternal Grandmother Maternal Grandfather Paternal Grandmother Paternal Grandfather Other Level of Service:19184 [place] OFFICE/OUTPATIENT ESTABLISHED MOD MDM 30-39 MIN Reason for Visit and Comments: Atrial Fibrillation [80] Congestive Heart Failure [127] Normal [facility] ECHOCARDIO M/2D COMPLETEon 0 02-28-2023 ECHOCARDIO M/2D COMPLETE Patient: GADIEL LIANG Exam Date: 02/28/2023 : 1950 Gender:M Ordering : ELICEO ROSENBERG Admission #: [id number] Family : DR JOSELUIS QUIROZ M.D. Order #: [id number] CLICK HERE TO VIEW EXAM ECHOCARDIOGRAM REPORT PROCEDURE: CARDIO PULMONARY ECHOCARDIO M/2D COMP INDICATIONS: Paroxysmal atrial fibrilation COMPARISON: None. DESCRIPTION: COMPLETE ECHOCARDIOGRAM Real-time transthoracic echocardiography with 2D, M-mode, spectral and color flow Doppler performed. QUALITY: Technical quality was good. LEFT VENTRICLE: Normal chamber size. Mild concentric left ventricular hypertrophy. Systolic function is normal. LV EF: Normal left ventricular ejection fraction, (55-60%). DIASTOLIC: Diastolic function is indeterminate. ATRIAL SEPTUM: LEFT ATRIUM: Moderate dilatation. RIGHT ATRIUM: Mild dilatation. RIGHT VENTRICLE: Normal chamber size. Normal right ventricular systolic function. TRICUSPID VALVE: Normal mobility and thickness. No stenosis with trivial regurgitation. No evidence of pulmonary hypertension. RVSP 30 mmHg MITRAL VALVE: Normal mobility and thickness. No mitral valve prolapse. No evidence of mitral valve stenosis. There is no mitral annular calcification. Mild mitral regurgitation. AORTIC VALVE: Normal trileaflet appearance. Mildly calcified aortic valve. Normal leaflet mobility. No evidence of aortic valve stenosis. Trivial aortic regurgitation. AORTIC ROOT: Normal diameter and appearance. PULMONIC VALVE: Normal thickness and mobility. No stenosis. Trivial regurgitation. PERICARDIUM: No evidence of pericardial effusion. IVC: Collapses with inspirations. Normal size. PLEURA: CONCLUSION: 1. Mild concentric left ventricular hypertrophy. Normal ventricular systolic function. LVEF is 55 to 60%. 2. Normal right ventricular size and systolic function. 3. Mild to moderate biatrial dilatation. 4. Mild mitral regurgitation. 5. Normal right-sided pressures. 6. No pericardial effusion. Adult Echocardiography Procedure Report Left Ventricle LVEDD (3.7 - 5.6 cm): 4.78 cm LVESD (2.2 - 4.0 cm): 3.57 cm LVIVS thickness (0.6 - 1.2 cm): 1.22 cm LVPW thickness (0.5 - 1.0 cm): 1.10 cm LVOT Max Gradient: 3 mm[Hg] Peak Velocity (LVOT): 80.50 cm/s Mean Velocity (LVOT): 54.80 cm/s LVOT Diameter 2.50 cm Left Ventricular Ejection Fraction: 55-60 % Left Atrium LA Volume Index (2D A2C): 57712 mm3 Left Atrium Systolic Dimension: 4.90 cm Mitral Valve MV E to A Ratio: 0.60 Mitral Valve A-Wave Peak Velocity: 70.30 cm/s Mitral Valve E-Wave Peak Velocity: 40.10 cm/s Right Ventricle Aorta AO Root Diam: 3.50 cm Aortic Valve AoV Area (Peak Sean): 3.27 cm2 AoV Area (VTI): 3.73 cm2 Peak Velocity(Antegrade Flow): 121.00 cm/s Peak Gradient(Antegrade Flow): 6 mm[Hg] Mean Velocity(Antegrade Flow): 83.60 cm/s Mean Gradient(Antegrade Flow): 3 mm[Hg] Velocity Time Integral: 22.90 cm Tricuspid Valve Peak Velocity (Regurgitant Flow): 261.00 cm/s Peak Velocity: 38.70 cm/s Pulmonic Valve Peak Velocity: 81.40 cm/s, 86.90 cm/s Peak Gradient: 3 mm[Hg] Right Atrium Dictated by: Bryant Patten M.D. on 02/28/2023 at 20:09 Approved by: Bryant Patten M.D. on 02/28/2023 at 20:13 Normal [facility] Office Visiton 01-29-2023 Follow-up visit [id number] Gadiel Liang 1950 [facility] Provider Department Center 01/29/2023 ELICEO FORTE [facility] Family History Problem Relation Age of Onset No Known Problems Mother No Known Problems Father No Known Problems Sister No Known Problems Brother No Known Problems Mother's Sister No Known Problems Mother's Brother No Known Problems Father's Sister No Known Problems Father's Brother No Known Problems Maternal Grandmother No Known Problems Maternal Grandfather No Known Problems Paternal Grandmother No Known Problems Paternal Grandfather No Known Problems Other Family Status - Relation Status Age at Mother Father Sister Brother Mother's Sister Mother's Brother Father's Sister Father's Brother Maternal Grandmother Maternal Grandfather Paternal Grandmother Paternal Grandfather Other Level of Service:44878 [place] OFFICE/OUTPATIENT NEW MODERATE MDM 45-59 MINUTES Reason for Visit and Comments: Follow-up [240421] - 2 month Normal [facility] Orders Onlyon 12-04-2022 Orders Only [id number] Gadiel Liang 1950 [facility] Provider Department Center 12/04/2022 TONY MARIEE [facility] Family History Problem Relation Age of Onset No Known Problems Mother No Known Problems Father No Known Problems Sister No Known Problems Brother No Known Problems Mother's Sister No Known Problems Mother's Brother No Known Problems Father's Sister No Known Problems Father's Brother No Known Problems Maternal Grandmother No Known Problems Maternal Grandfather No Known Problems Paternal Grandmother No Known Problems Paternal Grandfather No Known Problems Other Family Status - Relation Status Age at Mother Father Sister Brother Mother's Sister Mother's Brother Father's Sister Father's Brother Maternal Grandmother Maternal Grandfather Paternal Grandmother Paternal Grandfather Other Normal [facility] Follow-Upon 11-28-2022 Follow-Up [id number] Gadiel Liang Geovanna 1950 M Date Provider Department Center 11/28/2022 JANEE JAIME [facility] Family History Problem Relation Age of Onset No Known Problems Mother No Known Problems Father No Known Problems Sister No Known Problems Brother No Known Problems Mother's Sister No Known Problems Mother's Brother No Known Problems Father's Sister No Known Problems Father's Brother No Known Problems Maternal Grandmother No Known Problems Maternal Grandfather No Known Problems Paternal Grandmother No Known Problems Paternal Grandfather No Known Problems Other Family Status - Relation Status Age at Mother Father Sister Brother Mother's Sister Mother's Brother Father's Sister Father's Brother Maternal Grandmother Maternal Grandfather Paternal Grandmother Paternal Grandfather Other Level of Service:93806 [place] TRANSJ CARE MGMT HIGH MDM F2F 7 WILFRID D DISCHARGE Reason for Visit and Comments: Congestive Heart Failure [127] Atrial Fibrillation [80] Normal [facility] PROF 14(COMP METB)on 023 Albumin [Mass/Vol] 3.7 g/dL Normal 3.4-5.0 [facility] Comment on above: Performed By: #### C MP #### [facility] [address] [place] [address] Dr. Esme Jackson Albumin/Globulin [Mass ratio] 1.1 {ratio} Normal [facility] Comment on above: Performed By: #### C MP #### [facility] [address] [address] [address] Esme Jackson ALP [Catalytic activity/Vol] 65 U/L Normal 46-116 [facility] Comment on above: Performed By: #### C MP #### [facility] [address] [address] [address] Esme Jackson ALT [Catalytic activity/Vol] 26 U/L Normal 16-63 [facility] Comment on above: Performed By: #### C MP #### [facility] [address] [address] [address] Esme Jackson Anion gap [Moles/Vol] 10.8 mmol/L Normal [facility] Comment on above: Performed By: #### C MP #### [facility] [address] [address] [address] Esme Jackson AST [Catalytic activity/Vol] 16 U/L Normal 15-37 [facility] Comment on above: Performed By: #### C MP #### [facility] [address] [address] [address] Esme Jackson Bilirubin [Mass/Vol] 1.1 mg/dL Critically high 0.2-1.0 [facility] Comment on above: Performed By: #### C MP #### [facility] [address] [address] [address] Esme Jackson Calcium [Mass/Vol] 9.4 mg/dL Normal 8.5-10.1 [facility] Comment on above: Performed By: #### C MP #### [facility] [address] [address] [address] Esme Jackson Chloride [Moles/Vol] 103 mmol/L Normal 98-107 [facility] Comment on above: Performed By: #### C MP #### [facility] [address] [address] [address] Esme Jackson CO2 [Moles/Vol] 28.5 mmol/L Normal 21.0-32.0 [facility] Comment on above: Performed By: #### C MP #### [facility] [address] [address] [address] Esme Jackson Creatinine [Mass/Vol] 1.07 mg/dL Normal 0.70-1.30 [facility] Comment on above: Performed By: #### C MP #### [facility] [address] [address] [address] Esme Jackson EGFR-AF EMIRATI >60 Normal >=60 [facility] Comment on above: Performed By: #### C MP #### [facility] [address] [address] [address] Esme Jackson EGFR-NON AF EMIRATI >60 Normal >=60 [facility] Comment on above: Performed By: #### C MP #### [facility] [address] [address] [address] Esme Jackson Globulin (S) [Mass/Vol] 3.5 g/dL Normal [facility] Comment on above: Performed By: #### C MP #### [facility] [address] [address] [address] Esme Jackson Glucose [Mass/Vol] 190 mg/dL Critically high 74-106 [facility] Comment on above: Performed By: #### C MP #### [facility] [address] [address] [address] Esme Jackson Potassium [Moles/Vol] 5.3 mmol/L Critically high 3.5-5.1 [facility] Comment on above: Performed By: #### C MP #### [facility] [address] [place] [address] Dr. Esme Jackson Protein [Mass/Vol] 7.2 g/dL Normal 6.4-8.[address] [facility] Comment on above: Performed By: #### C MP #### [facility] [address] [address] [address] Esme Jackson Sodium [Moles/Vol] 137 mmol/L Normal 136-145 [facility] Comment on above: Performed By: #### C MP #### [facility] [address] [address] [address] Esme Jackson Urea nitrogen [Mass/Vol] 14.0 mg/dL Normal 7.0-18.0 [facility] Comment on above: Performed By: #### C MP #### [facility] [address] [address] [address] Esme Jackson Urea nitrogen/Creatinine [Mass ratio] 13.1 mg/mg Normal [facility] Comment on above: Performed By: #### C MP #### [facility] [address] [place] [address] Dr. Esme Jackson 36on 11-21-2022 36 Heart failure discharge call back Normal [facility] Telephoneon 11-21-2022 Telephone [id number] Gadiel Liang 1950 M Date Provider Department Center 11/21/2022 [facility] F[facility] Family History Problem Relation Age of Onset No Known Problems Mother No Known Problems Father No Known Problems Sister No Known Problems Brother No Known Problems Mother's Sister No Known Problems Mother's Brother No Known Problems Father's Sister No Known Problems Father's Brother No Known Problems Maternal Grandmother No Known Problems Maternal Grandfather No Known Problems Paternal Grandmother No Known Problems Paternal Grandfather No Known Problems Other Family Status - Relation Status Age at Mother Father Sister Brother Mother's Sister Mother's Brother Father's Sister Father's Brother Maternal Grandmother Maternal Grandfather Paternal Grandmother Paternal Grandfather Other Reason for Visit and Comments: Heart Failure Discharge Call Back [Other] - Discharge date: 11/20/22 Call date: 11/21/22 Spoke with: Dia Follow-up date: 11/28/22 at 14:55 Home meds were reviewed with pt's . stated pt no longer takes the hydroxyzine and oxybutynin that is on his med list. She acknowledged the follow-up appt on 11/28. Per , pt is doing well and able to breathe now. Normal [facility] 30on 11-20-2022 30 The patient is Moderately Stable - Low risk of patient condition declining or worsening The patient's goals for the shift include comfort The clinical goals for the shift include comfort and safety Over the shift, the patient did not make progress toward the following goals. Barriers to progression include . Recommendations to address these barriers include . Problem: Pain - Adult Goal: Verbalizes/displays adequate comfort level or baseline comfort level Outcome: Progressing Note: Pt states no pain at this time Problem: Safety - Adult Goal: Free from fall injury Outcome: Progressing Flowsheets (Taken 11/20/2022 1335) Free from fall injury: Assess patient frequently for physical needs Sidell fall precautions as indicated by assessment Educate patient/family on patient safety, including physical limitations Note: Pt free from falls, safety maintained with call light in reach. Normal [facility] APTTon 11-20-2022 ACTIVATED PARTIAL THROMBOPLASTIN TIME IN PPP BY COAGULATION ASSAY 83.5 Seconds Critically high 25.0-35.0 [facility] Comment on above: Result Comment: Clin ical significance of the PTT result is questionable in the presence of Heparin. Performed By: #### L [id number] ####[facility] ([facility])[address] [facility] [place] [address] BASIC METABOLIC PANELon 11-11 Anion gap [Moles/Vol] 11 mmol/L Normal 7-20 [facility] Comment on above: Performed By: #### L [id number] ####[facility] ([facility])[address] [place] [address] Calcium [Mass/Vol] 9.0 mg/dL Normal 8.6-10.3 [facility] Comment on above: Performed By: #### L [id number] ####[facility] [place] [address] Chloride [Moles/Vol] 101 mmol/L Normal 98-107 [facility] Comment on above: Performed By: #### L [id number] ####[facility])[address] [place] [address] CO2 [Moles/Vol] 26 mmol/L Normal 21-31 [facility] Comment on above: Performed By: #### L [id number] ####[facility] ([facility])[address] [place] [address] Creatinine [Mass/Vol] 1.13 mg/dL Normal 0.70-1.30 [facility] Comment on above: Performed By: #### L [id number] ####[facility] ([facility])[address] [place] [address] GLOMERULAR FILTRATION RATE ML/MIN/1.73 SQ M.PREDICTED 65.0 mL/min/1.73m*2 Normal >60.0 [facility] Comment on above: Result Comment: The [facility]???s estimated glomerular filtration rate (eGFR) will no longer include consideration of race in its calculation. The National Kidney Foundation???s eGFR Task Force developed new recommendations for the estimation of the glomerular filtration rate in the [place] They recommend immediate implementation of the new equation refit without the race variable in all laboratories because the calculation does not include race. In addition to not including race in the calculation and reporting, it included diversity in its development, and has acceptable performance characteristics and potential consequences that do not disproportionately affect any one group of individuals. Performed By: #### L [id number] ####[facility] ([facility])[address] [place] [address] Glucose [Mass/Vol] 135 mg/dL High 70-100 [facility] Comment on above: Performed By: #### L [id number] ####[facility] ([facility])[address] [place] [address] Potassium [Moles/Vol] 4.1 mmol/L Normal 3.5-5.1 [facility] Comment on above: Performed By: #### L [id number] ####[facility] ([facility])[address] [place] [address] Sodium [Moles/Vol] 138 mmol/L Normal 136-145 [facility] Comment on above: Performed By: #### L [id number] ####[facility] ([facility])[address] [place] [address] Urea nitrogen [Mass/Vol] 22 mg/dL Normal 7-25 [facility] Comment on above: Performed By: #### L [id number] ####[facility] ([facility])[address] [place] [address] UREA NITROGEN/CREATININE (MASS RATIO) IN SER/PLAS 19.47 Normal [facility] Comment on above: Performed By: #### L [id number] ####[facility] ([facility])[address] [place] [address] CBC WITH AUTO DIFFERENTIALon 11-20-2022 Basophils (Bld) [#/Vol] 0.03 10*3/uL Normal 0.00-0.20 [facility] Comment on above: Performed By: #### L [id number] #### [facility] ([facility]) [address] [place] [address] Basophils/100 WBC (Bld) 0.5 % Normal 0.0-1.0 [facility] Comment on above: Performed By: #### L [id number] #### [facility] ([facility]) [address] [place] [address] Eosinophils (Bld) [#/Vol] 0.23 10*3/uL Normal 0.00-0.50 [facility] Comment on above: Performed By: #### L [id number] #### [facility] ([facility]) [address] [place] [address] Eosinophils/100 WBC (Bld) 3.6 % Normal 0.0-6.0 [facility] Comment on above: Performed By: #### L [id number] #### [facility] ([facility]) [address] [place] [address] Erythrocyte distribution width (RBC) [Ratio] 14.8 % Normal 11.5-15.0 [facility] Comment on above: Performed By: #### L [id number] #### [facility] ([facility]) [address] [place] [address] ERYTHROCYTE MEAN CORPUSCULAR HEMOGLOBIN CONCENTRATION (G/DL) BY AUTOMATED 32.3 g/dL Normal 32.0-35.0 [facility] Comment on above: Performed By: #### L [id number] #### [facility] ([facility]) [address] [place] [address] Hematocrit (Bld) [Volume fraction] 40.9 % Normal 39.0-55.0 [facility] Comment on above: Performed By: #### L [id number] #### [facility]) [address] [place] [address] Hemoglobin (Bld) [Mass/Vol] 13.2 g/dL Normal 13.0-17.0 [facility] Comment on above: Performed By: #### L [id number] #### [facility] ([facility]) [address] [place] [address] Immature granulocytes (Bld) [#/Vol] 0.01 10*3/uL Normal 0.00-0.20 [facility] Comment on above: Performed By: #### L [id number] #### [facility] ([facility]) [address] [place] [address] Immature granulocytes/100 WBC (Bld) 0.2 % Normal 0.0-1.0 [facility] Comment on above: Performed By: #### L [id number] #### [facility]) [address] [address] Lymphocytes (Bld) [#/Vol] 1.39 10*3/uL Normal 1.20-4.00 [facility] Comment on above: Performed By: #### L [id number] #### [facility]) [address] [place] [address] Lymphocytes/100 WBC (Bld) 21.8 % Normal 20.0-45.0 [facility] Comment on above: Performed By: #### L [id number] #### [facility] ([facility]) [address] [place] [address] MCH (RBC) [Entitic mass] 27.8 pg Normal 27.0-33.0 [facility] Comment on above: Performed By: #### L [id number] #### [facility] ([facility]) [address] [place] [address] MCV (RBC) [Entitic vol] 86.3 fL Normal 82.0-98.0 [facility] Comment on above: Performed By: #### L [id number] #### [facility]) [address] [facility] [place] [address] Monocytes (Bld) [#/Vol] 0.79 10*3/uL Normal 0.10-1.00 [facility] Comment on above: Performed By: #### L [id number] #### [facility] ([facility]) [address] [place] [address] Monocytes/100 WBC (Bld) 12.4 % High 5.0-12.0 [facility] Comment on above: Performed By: #### L [id number] #### [facility] ([facility]) [address] [place] [address] Neutrophils (Bld) [#/Vol] 3.93 10*3/uL Normal 1.60-7.60 [facility] Comment on above: Performed By: #### L [id number] #### [facility]) [address] [place] [address] Neutrophils/100 WBC (Bld) 61.5 % Normal 40.0-72.0 [facility] Comment on above: Performed By: #### L [id number] #### [facility] ([facility]) [address] [place] [address] NRBC (PER 100 WBCS) BY AUTOMATED COUNT 0.0 % Normal 0.0-0.0 [facility] Comment on above: Performed By: #### L [id number] #### [facility] ([facility]) [address] [place] [address] PLATELETS (10*3/UL) IN BLOOD AUTOMATED COUNT 222 10*3/uL Normal 150-400 [facility] Comment on above: Performed By: #### L [id number] #### [facility] ([facility]) [address] [place] [address] RBC (Bld) [#/Vol] 4.74 10*6/uL Normal 4.20-5.70 [facility] Comment on above: Performed By: #### L [id number] #### [facility] ([facility]) [address] [place] [address] WBC (Bld) [#/Vol] 6.38 10*3/uL Normal 4.00-10.60 [facility] Comment on above: Performed By: #### L [id number] #### [facility] ([facility]) [address] [place] [address] HEPARIN LEVELon 11-20-2022 HEPARIN UNFRACTIONATED (U/ML) IN PPP BY CHROMOGENIC METHOD >1.00 Critically high 0.3-0.7 [facility] Comment on above: Result Comment: [place] roxaban and Apixaban will interfere with the anti Xa assay used to monitor UFH and LMWH. Performed By: #### L [id number] ####[facility] ([facility])[address] [place] [place] [address] MAGNESIUMon 11-20-2022 Magnesium [Mass/Vol] 2.4 mg/dL Normal 1.9-2.7 [facility] Comment on above: Performed By: #### L [id number] ####[facility] ([facility])[address] [place] [place] [address] POCT GLUCOSE METER UNSOLICIT ED RESULTSon 11-20-2022 Glucose [Mass/Vol] 194 mg/dL High 70-105 [facility] Comment on above: Result Comment: mtuc ker Performed By: #### L [id number] #### [facility]) [address] [place] [address] Glucose [Mass/Vol] 140 mg/dL High 70-105 [facility] Comment on above: Result Comment: mtuc ker Performed By: #### L [id number] #### [facility]) [address] [place] [address] 30on 11-19-2022 30 The patient is Moderately Stable - Low risk of patient condition declining or worsening The patient's goals for the shift include comfort The clinical goals for the shift include comfort, safety Over the shift, the patient did not make progress toward the following goals. Barriers to progression include poc. Recommendations to address these barriers include teaching. Problem: Pain - Adult Goal: Verbalizes/displays adequate comfort level or baseline comfort level Outcome: Progressing Problem: Safety - Adult Goal: Free from fall injury Outcome: Progressing Problem: Discharge Planning Goal: Discharge to home or other facility with appropriate resources Outcome: Progressing Problem: Chronic Conditions and Co-morbidities Goal: Patient's chronic conditions and co-morbidity symptoms are monitored and maintained or improved Outcome: Progressing Problem: Risk for excess fluid volume Goal: I will remain free from complications r/t CHF Outcome: Progressing Problem: Heart Failure diagnosis knowledge deficit Goal: Patient will verbalize understanding of how heart failure affects the body Outcome: Progressing Goal: Patient will verbalize understanding of how other conditions affect the heart Outcome: Progressing Problem: Fluid retention/overload Goal: Patient will be able to identify signs and symptoms of fluid retention Outcome: Progressing Problem: Heart failure medication adherence Goal: Consistently take heart failure medication as prescribed Outcome: Progressing Problem: Insufficient exercise regimen Goal: Patient will engage in physical activity safely Outcome: Progressing Problem: Heart failure progression and care needs Goal: Patient will verbalize understanding of heart failure progression Outcome: Progressing Problem: Heart failure maintenance Goal: Patient will not experience any symptoms of shortness of breath or body swelling over the next 3 months Outcome: Progressing Normal [facility] APTTon 11-19-2022 ACTIVATED PARTIAL THROMBOPLASTIN TIME IN PPP BY COAGULATION ASSAY 90.3 Seconds Critically high 25.0-35.0 [facility] Comment on above: Result Comment: Clin ical significance of the PTT result is questionable in the presence of Heparin. Performed By: #### L [id number] ####[facility] ([facility])[address] [place] [address] BASIC METABOLIC PANELon Anion gap [Moles/Vol] 10 mmol/L Normal 7-20 [facility] Comment on above: Performed By: #### L [id number] #### [facility]) [address] [place] [address] Calcium [Mass/Vol] 8.9 mg/dL Normal 8.6-10.3 [facility] Comment on above: Performed By: #### L [id number] #### [facility] ([facility]) [address] [place] [address] Chloride [Moles/Vol] 103 mmol/L Normal 98-107 [facility] Comment on above: Performed By: #### L [id number] #### [facility] ([facility]) [address] [place] [address] CO2 [Moles/Vol] 26 mmol/L Normal 21-31 [facility] Comment on above: Performed By: #### L [id number] #### [facility]) [address] [facility] [place] [address] Creatinine [Mass/Vol] 1.13 mg/dL Normal 0.70-1.30 [facility] Comment on above: Performed By: #### L [id number] #### [facility] ([facility]) [address] [place] [address] GLOMERULAR FILTRATION RATE ML/MIN/1.73 SQ M.PREDICTED 65.0 mL/min/1.73m*2 Normal >60.0 [facility] Comment on above: Result Comment: The [facility]???s estimated glomerular filtration rate (eGFR) will no longer include consideration of race in its calculation. The National Kidney Foundation???s eGFR Task Force developed new recommendations for the estimation of the glomerular filtration rate in the [place] They recommend immediate implementation of the new equation refit without the race variable in all laboratories because the calculation does not include race. In addition to not including race in the calculation and reporting, it included diversity in its development, and has acceptable performance characteristics and potential consequences that do not disproportionately affect any one group of individuals. Performed By: #### L [id number] #### [facility]) [address] [place] [address] Glucose [Mass/Vol] 112 mg/dL High 70-100 [facility] Comment on above: Performed By: #### L [id number] #### [facility]) [address] [place] [address] Potassium [Moles/Vol] 3.9 mmol/L Normal 3.5-5.1 [facility] Comment on above: Performed By: #### L [id number] #### [facility]) [address] [place] [address] Sodium [Moles/Vol] 139 mmol/L Normal 136-145 [facility] Comment on above: Performed By: #### L [id number] #### [facility]) [address] [place] [address] Urea nitrogen [Mass/Vol] 17 mg/dL Normal 7-25 [facility] Comment on above: Performed By: #### L [id number] #### [facility]) [address] [place] [address] UREA NITROGEN/CREATININE (MASS RATIO) IN SER/PLAS 15.04 Normal [facility] Comment on above: Performed By: #### L [id number] #### [facility]) [address] [place] [address] CBC WITH AUTO DIFFERENTIALon 11-19-2022 Basophils (Bld) [#/Vol] 0.03 10*3/uL Normal 0.00-0.20 [facility] Comment on above: Performed By: #### L [id number] #### [facility]) [address] [place] [address] Basophils/100 WBC (Bld) 0.5 % Normal 0.0-1.0 [facility] Comment on above: Performed By: #### L [id number] #### [facility]) [address] [place] [address] Eosinophils (Bld) [#/Vol] 0.24 10*3/uL Normal 0.00-0.50 [facility] Comment on above: Performed By: #### L [id number] #### [facility]) [address] [place] [address] Eosinophils/100 WBC (Bld) 3.8 % Normal 0.0-6.0 [facility] Comment on above: Performed By: #### L [id number] #### [facility]) [address] [place] [address] Erythrocyte distribution width (RBC) [Ratio] 14.8 % Normal 11.5-15.0 [facility] Comment on above: Performed By: #### L [id number] #### [facility]) [address] [place] [address] ERYTHROCYTE MEAN CORPUSCULAR HEMOGLOBIN CONCENTRATION (G/DL) BY AUTOMATED 32.5 g/dL Normal 32.0-35.0 [facility] Comment on above: Performed By: #### L [id number] #### [facility] ([facility]) [address] [place] [address] Hematocrit (Bld) [Volume fraction] 39.1 % Normal 39.0-55.0 [facility] Comment on above: Performed By: #### L [id number] #### [facility] ([facility]) [address] [place] [address] Hemoglobin (Bld) [Mass/Vol] 12.7 g/dL Low 13.0-17.0 [facility] Comment on above: Performed By: #### L [id number] #### [facility]) [address] [place] [address] Immature granulocytes (Bld) [#/Vol] 0.03 10*3/uL Normal 0.00-0.20 [facility] Comment on above: Performed By: #### L [id number] #### [facility]) [address] [place] [address] Immature granulocytes/100 WBC (Bld) 0.5 % Normal 0.0-1.0 [facility] Comment on above: Performed By: #### L [id number] #### [facility]) [address] [place] [address] Lymphocytes (Bld) [#/Vol] 1.62 10*3/uL Normal 1.20-4.00 [facility] Comment on above: Performed By: #### L [id number] #### [facility]) [address] [place] [address] Lymphocytes/100 WBC (Bld) 25.7 % Normal 20.0-45.0 [facility] Comment on above: Performed By: #### L [id number] #### [facility]) [address] [place] [address] MCH (RBC) [Entitic mass] 28.0 pg Normal 27.0-33.0 [facility] Comment on above: Performed By: #### L [id number] #### [facility] ([facility]) [address] [place] [address] MCV (RBC) [Entitic vol] 86.3 fL Normal 82.0-98.0 [facility] Comment on above: Performed By: #### L [id number] #### [facility]) [address] [place] [address] Monocytes (Bld) [#/Vol] 0.73 10*3/uL Normal 0.10-1.00 [facility] Comment on above: Performed By: #### L [id number] #### [facility]) [address] [place] [address] Monocytes/100 WBC (Bld) 11.6 % Normal 5.0-12.0 [facility] Comment on above: Performed By: #### L [id number] #### [facility]) [address] [place] [address] Neutrophils (Bld) [#/Vol] 3.66 10*3/uL Normal 1.60-7.60 [facility] Comment on above: Performed By: #### L [id number] #### [facility]) [address] [place] [address] Neutrophils/100 WBC (Bld) 57.9 % Normal 40.0-72.0 [facility] Comment on above: Performed By: #### L [id number] #### [facility]) [address] [place] [address] NRBC (PER 100 WBCS) BY AUTOMATED COUNT 0.0 % Normal 0.0-0.0 [facility] Comment on above: Performed By: #### L [id number] #### [facility]) [address] [place] [address] PLATELETS (10*3/UL) IN BLOOD AUTOMATED COUNT 218 10*3/uL Normal 150-400 [facility] Comment on above: Performed By: #### L [id number] #### [facility]) [address] [place] [address] RBC (Bld) [#/Vol] 4.53 10*6/uL Normal 4.20-5.70 [facility] Comment on above: Performed By: #### L [id number] #### [facility]) [address] [place] [address] WBC (Bld) [#/Vol] 6.31 10*3/uL Normal 4.00-10.60 [facility] Comment on above: Performed By: #### L [id number] #### [facility]) [address] [place] [address] HEPARIN LEVELon 11-19-2022 HEPARIN UNFRACTIONATED (U/ML) IN PPP BY CHROMOGENIC METHOD >1.00 Critically high 0.3-0.7 [facility] Comment on above: Result Comment: [place] roxaban and Apixaban will interfere with the anti Xa assay used to monitor UFH and LMWH. Performed By: #### L [id number] #### [facility]) [address] [place] [address] HPon 11-19-2022 HP H&P reviewed. The patient was examined and there are no changes to the H&P. Normal [facility] MAGNESIUMon 11-19-2022 Magnesium [Mass/Vol] 2.2 mg/dL Normal 1.9-2.7 [facility] Comment on above: Performed By: #### L [id number] #### [facility]) [address] [place] [address] POCT GLUCOSE METER UNSOLICIT ED RESULTSon 11-19-2022 Glucose [Mass/Vol] 372 mg/dL High 70-105 [facility] Comment on above: Result Comment: troy adams Performed By: #### L [id number] #### [facility]) [address] [place] [address] Glucose [Mass/Vol] 149 mg/dL High 70-105 [facility] Comment on above: Result Comment: lisha braun Performed By: #### L [id number] #### [facility] ([facility]) [address] [place] [address] APTTon 11-18-2022 ACTIVATED PARTIAL THROMBOPLASTIN TIME IN PPP BY COAGULATION ASSAY 89.9 Seconds Critically high 25.0-35.0 [facility] Comment on above: Performed By: #### L [id number] ####[facility] ([facility])[address] [place] [address] ACTIVATED PARTIAL THROMBOPLASTIN TIME IN PPP BY COAGULATION ASSAY 83.7 Seconds Critically high 25.0-35.0 [facility] Comment on above: Order Comment: Check aPTT every 6 hours while on heparin infusion, or per protocol. Result Comment: Clin ical significance of the PTT result is questionable in the presence of Heparin. Performed By: #### L [id number] #### [facility] ([facility]) [address] [place] [address] BASIC METABOLIC PANELon Anion gap [Moles/Vol] 12 mmol/L Normal 7-20 [facility] Comment on above: Performed By: #### L [id number] ####[facility] ([facility])[address] [place] [address] Calcium [Mass/Vol] 9.0 mg/dL Normal 8.6-10.3 [facility] Comment on above: Performed By: #### L [id number] ####[facility] ([facility])[address] [place] [address] Chloride [Moles/Vol] 103 mmol/L Normal 98-107 [facility] Comment on above: Performed By: #### L [id number] ####[facility] ([facility])[address] [place] [address] CO2 [Moles/Vol] 24 mmol/L Normal 21-31 [facility] Comment on above: Performed By: #### L [id number] ####[facility] ([facility])[address] [place] [address] Creatinine [Mass/Vol] 0.98 mg/dL Normal 0.70-1.30 [facility] Comment on above: Performed By: #### L [id number] ####[facility] ([facility])[address] [place] [address] GLOMERULAR FILTRATION RATE ML/MIN/1.73 SQ M.PREDICTED 77.3 mL/min/1.73m*2 Normal >60.0 [facility] Comment on above: Result Comment: [facility]???s estimated glomerular filtration rate (eGFR) will no longer include consideration of race in its calculation. The National Kidney Foundation???s eGFR Task Force developed new recommendations for the estimation of the glomerular filtration rate in the [place] They recommend immediate implementation of the new equation refit without the race variable in all laboratories because the calculation does not include race. In addition to not including race in the calculation and reporting, it included diversity in its development, and has acceptable performance characteristics and potential consequences that do not disproportionately affect any one group of individuals. Performed By: #### L [id number] ####[facility] ([facility])[address] [place] [address] Glucose [Mass/Vol] 132 mg/dL High 70-100 [facility] Comment on above: Performed By: #### L [id number] ####[facility] ([facility])[address] [place] [address] Potassium [Moles/Vol] 4.1 mmol/L Normal 3.5-5.1 [facility] Comment on above: Performed By: #### L [id number] ####[facility] ([facility])[address] [place] [address] Sodium [Moles/Vol] 139 mmol/L Normal 136-145 [facility] Comment on above: Performed By: #### L [id number] ####[facility] ([facility])[address] [place] [address] Urea nitrogen [Mass/Vol] 17 mg/dL Normal 7-25 [facility] Comment on above: Performed By: #### L [id number] ####[facility] ([facility])[address] [place] [address] UREA NITROGEN/CREATININE (MASS RATIO) IN SER/PLAS 17.35 Normal [facility] Comment on above: Performed By: #### L [id number] ####[facility] ([facility])[address] [place] [address] CBC WITH AUTO DIFFERENTIALon 11-18-2022 Basophils (Bld) [#/Vol] 0.05 10*3/uL Normal 0.00-0.20 [facility] Comment on above: Performed By: #### L [id number] ####[facility] ([facility])[address] [place] [address] Basophils/100 WBC (Bld) 0.7 % Normal 0.0-1.0 [facility] Comment on above: Performed By: #### L [id number] ####[facility] ([facility])[address] [place] [address] Eosinophils (Bld) [#/Vol] 0.34 10*3/uL Normal 0.00-0.50 [facility] Comment on above: Performed By: #### L [id number] ####[facility] ([facility])[address] [place] [address] Eosinophils/100 WBC (Bld) 4.7 % Normal 0.0-6.0 [facility] Comment on above: Performed By: #### L [id number] ####[facility] ([facility])[address] [place] [address] Erythrocyte distribution width (RBC) [Ratio] 14.5 % Normal 11.5-15.0 [facility] Comment on above: Performed By: #### L [id number] ####[facility] ([facility])[address] [place] [address] ERYTHROCYTE MEAN CORPUSCULAR HEMOGLOBIN CONCENTRATION (G/DL) BY AUTOMATED 32.1 g/dL Normal 32.0-35.0 [facility] Comment on above: Performed By: #### L [id number] ####[facility] ([facility])[address] [place] [address] Hematocrit (Bld) [Volume fraction] 41.4 % Normal 39.0-55.0 [facility] Comment on above: Performed By: #### L [id number] ####[facility] ([facility])[address] [place] [address] Hemoglobin (Bld) [Mass/Vol] 13.3 g/dL Normal 13.0-17.0 [facility] Comment on above: Performed By: #### L [id number] ####[facility] ([facility])[address] [place] [address] Immature granulocytes (Bld) [#/Vol] 0.03 10*3/uL Normal 0.00-0.20 [facility] Comment on above: Performed By: #### L [id number] ####[facility] ([facility])[address] [place] [address] Immature granulocytes/100 WBC (Bld) 0.4 % Normal 0.0-1.0 [facility] Comment on above: Performed By: #### L [id number] ####[facility] ([facility])[address] [place] [address] Lymphocytes (Bld) [#/Vol] 1.48 10*3/uL Normal 1.20-4.00 [facility] Comment on above: Performed By: #### L [id number] ####[facility] ([facility])[address] [place] [address] Lymphocytes/100 WBC (Bld) 20.5 % Normal 20.0-45.0 [facility] Comment on above: Performed By: #### L [id number] ####[facility] ([facility])[address] [place] [address] MCH (RBC) [Entitic mass] 27.4 pg Normal 27.0-33.0 [facility] Comment on above: Performed By: #### L [id number] ####[facility] ([facility])[address] [place] [address] MCV (RBC) [Entitic vol] 85.2 fL Normal 82.0-98.0 [facility] Comment on above: Performed By: #### L [id number] ####[facility] ([facility])[address] [place] [address] Monocytes (Bld) [#/Vol] 0.61 10*3/uL Normal 0.10-1.00 [facility] Comment on above: Performed By: #### L [id number] ####[facility] ([facility])[address] [place] [address] Monocytes/100 WBC (Bld) 8.5 % Normal 5.0-12.0 [facility] Comment on above: Performed By: #### L [id number] ####[facility] ([facility])[address] [place] [address] Neutrophils (Bld) [#/Vol] 4.70 10*3/uL Normal 1.60-7.60 [facility] Comment on above: Performed By: #### L [id number] ####[facility] ([facility])[address] [place] [address] Neutrophils/100 WBC (Bld) 65.2 % Normal 40.0-72.0 [facility] Comment on above: Performed By: #### L [id number] ####[facility] ([facility])[address] [place] [address] NRBC (PER 100 WBCS) BY AUTOMATED COUNT 0.0 % Normal 0.0-0.0 [facility] Comment on above: Performed By: #### L [id number] ####[facility] ([facility])[address] [place] [address] PLATELETS (10*3/UL) IN BLOOD AUTOMATED COUNT 238 10*3/uL Normal 150-400 [facility] Comment on above: Performed By: #### L [id number] ####[facility] ([facility])[address] [place] [address] RBC (Bld) [#/Vol] 4.86 10*6/uL Normal 4.20-5.70 [facility] Comment on above: Performed By: #### L [id number] ####[facility] ([facility])[address] [place] [address] WBC (Bld) [#/Vol] 7.21 10*3/uL Normal 4.00-10.60 [facility] Comment on above: Performed By: #### L [id number] ####[facility] ([facility])[address] [place] [address] HEPARIN LEVELon 11-18-2022 HEPARIN UNFRACTIONATED (U/ML) IN PPP BY CHROMOGENIC METHOD >1.00 Critically high 0.3-0.7 [facility] Comment on above: Result Comment: Annabelle roxaban and Apixaban will interfere with the anti Xa assay used to monitor UFH and LMWH. Performed By: #### L [id number] #### [facility] ([facility]) [address] [place] [address] HEPARIN UNFRACTIONATED (U/ML) IN PPP BY CHROMOGENIC METHOD >1.00 Critically high 0.3-0.7 [facility] Comment on above: Result Comment: UFH added per protocol UFH=1.85 Performed By: #### L [id number] ####[facility] ([facility])[address] [place] [address] MAGNESIUMon 11-18-2022 Magnesium [Mass/Vol] 2.2 mg/dL Normal 1.9-2.7 [facility] Comment on above: Performed By: #### L [id number] #### [facility] ([facility]) [address] [place] [address] NURSNOTEon 11-18-2022 NURSNOTE Lab contacted regarding patient's ptt level being drawn. Lab worker states somebody will be up to draw the blood Normal [facility] POCT GLUCOSE METER UNSOLICIT ED RESULTSon 11-18-2022 Glucose [Mass/Vol] 215 mg/dL High 70-105 [facility] Comment on above: Result Comment: [email or web address] Performed By: #### L [id number] #### [facility] ([facility]) [address] [place] [address] Glucose [Mass/Vol] 171 mg/dL High 70-105 [facility] Comment on above: Result Comment: ybak er Performed By: #### L [id number] #### [facility] ([facility]) [address] [place] [address] Glucose [Mass/Vol] 217 mg/dL High 70-105 [facility] Comment on above: Result Comment: lhal co Performed By: #### L [id number] #### [facility] ([facility]) [address] [place] [address] Glucose [Mass/Vol] 131 mg/dL High 70-105 [facility] Comment on above: Result Comment: lhal co Performed By: #### L [id number] #### [facility] ([facility]) [address] [place] [address] BASIC METABOLIC PANELon 01-0 Anion gap [Moles/Vol] 9 mmol/L Normal 7-20 [facility] Comment on above: Performed By: #### L [id number] ####[facility] ([facility])[address] [place] [address] Calcium [Mass/Vol] 9.0 mg/dL Normal 8.6-10.3 [facility] Comment on above: Performed By: #### L [id number] ####[facility] ([facility])[address] [place] [address] Chloride [Moles/Vol] 105 mmol/L Normal 98-107 [facility] Comment on above: Performed By: #### L [id number] ####[facility] ([facility])[address] [place] [address] CO2 [Moles/Vol] 24 mmol/L Normal 21-31 [facility] Comment on above: Performed By: #### L [id number] ####[facility] ([facility])[address] [place] [address] Creatinine [Mass/Vol] 1.00 mg/dL Normal 0.70-1.30 [facility] Comment on above: Performed By: #### L [id number] ####[facility] ([facility])[address] [place] [address] GLOMERULAR FILTRATION RATE ML/MIN/1.73 SQ M.PREDICTED 75.4 mL/min/1.73m*2 Normal >60.0 [facility] Comment on above: Result Comment: The [facility]???s estimated glomerular filtration rate (eGFR) will no longer include consideration of race in its calculation. The National Kidney Foundation???s eGFR Task Force developed new recommendations for the estimation of the glomerular filtration rate in the [place] They recommend immediate implementation of the new equation refit without the race variable in all laboratories because the calculation does not include race. In addition to not including race in the calculation and reporting, it included diversity in its development, and has acceptable performance characteristics and potential consequences that do not disproportionately affect any one group of individuals. Performed By: #### L [id number] ####[facility] ([facility])[address] [place] [address] Glucose [Mass/Vol] 103 mg/dL High 70-100 [facility] Comment on above: Performed By: #### L [id number] ####[facility] ([facility])[address] [place] [address] Potassium [Moles/Vol] 4.1 mmol/L Normal 3.5-5.1 [facility] Comment on above: Performed By: #### L [id number] ####[facility] ([facility])[address] [place] [address] Sodium [Moles/Vol] 138 mmol/L Normal 136-145 [facility] Comment on above: Performed By: #### L [id number] ####[facility] ([facility])[address] [place] [address] Urea nitrogen [Mass/Vol] 18 mg/dL Normal 7-25 [facility] Comment on above: Performed By: #### L [id number] ####[facility] ([facility])[address] [facility] [place] [address] UREA NITROGEN/CREATININE (MASS RATIO) IN SER/PLAS 18.00 Normal [facility] Comment on above: Performed By: #### L [id number] ####[facility] ([facility])[address] [place] [address] CBC WITH AUTO DIFFERENTIALon 11-17-2022 Basophils (Bld) [#/Vol] 0.03 10*3/uL Normal 0.00-0.20 [facility] Comment on above: Performed By: #### L [id number] #### [facility] ([facility]) [address] [place] [address] Basophils/100 WBC (Bld) 0.4 % Normal 0.0-1.0 [facility] Comment on above: Performed By: #### L [id number] #### [facility] ([facility]) [address] [place] [address] Eosinophils (Bld) [#/Vol] 0.35 10*3/uL Normal 0.00-0.50 [facility] Comment on above: Performed By: #### L [id number] #### [facility] ([facility]) [address] [place] [address] Eosinophils/100 WBC (Bld) 4.8 % Normal 0.0-6.0 [facility] Comment on above: Performed By: #### L [id number] #### [facility] ([facility]) [address] [place] [address] Erythrocyte distribution width (RBC) [Ratio] 14.6 % Normal 11.5-15.0 [facility] Comment on above: Performed By: #### L [id number] #### [facility] ([facility]) [address] [place] [address] ERYTHROCYTE MEAN CORPUSCULAR HEMOGLOBIN CONCENTRATION (G/DL) BY AUTOMATED 32.1 g/dL Normal 32.0-35.0 [facility] Comment on above: Performed By: #### L [id number] #### [facility] ([facility]) [address] [place] [address] Hematocrit (Bld) [Volume fraction] 38.3 % Low 39.0-55.0 [facility] Comment on above: Performed By: #### L [id number] #### [facility] ([facility]) [address] [place] [address] Hemoglobin (Bld) [Mass/Vol] 12.3 g/dL Low 13.0-17.0 [facility] Comment on above: Performed By: #### L [id number] #### [facility] ([facility]) [address] [place] [address] Immature granulocytes (Bld) [#/Vol] 0.03 10*3/uL Normal 0.00-0.20 [facility] Comment on above: Performed By: #### L [id number] #### [facility] ([facility]) [address] [place] [address] Immature granulocytes/100 WBC (Bld) 0.4 % Normal 0.0-1.0 [facility] Comment on above: Performed By: #### L [id number] #### [facility] ([facility]) [address] [place] [address] Lymphocytes (Bld) [#/Vol] 1.80 10*3/uL Normal 1.20-4.00 [facility] Comment on above: Performed By: #### L [id number] #### [facility] ([facility]) [address] [place] [address] Lymphocytes/100 WBC (Bld) 24.8 % Normal 20.0-45.0 [facility] Comment on above: Performed By: #### L [id number] #### [facility] ([facility]) [address] [place] [address] MCH (RBC) [Entitic mass] 27.5 pg Normal 27.0-33.0 [facility] Comment on above: Performed By: #### L [id number] #### [facility] ([facility]) [address] [place] [address] MCV (RBC) [Entitic vol] 85.5 fL Normal 82.0-98.0 [facility] Comment on above: Performed By: #### L [id number] #### [facility] ([facility]) [address] [place] [address] Monocytes (Bld) [#/Vol] 0.62 10*3/uL Normal 0.10-1.00 [facility] Comment on above: Performed By: #### L [id number] #### [facility] ([facility]) [address] [place] [address] Monocytes/100 WBC (Bld) 8.5 % Normal 5.0-12.0 [facility] Comment on above: Performed By: #### L [id number] #### [facility] ([facility]) [address] [place] [address] Neutrophils (Bld) [#/Vol] 4.43 10*3/uL Normal 1.60-7.60 [facility] Comment on above: Performed By: #### L [id number] #### [facility] ([facility]) [address] [place] [address] Neutrophils/100 WBC (Bld) 61.1 % Normal 40.0-72.0 [facility] Comment on above: Performed By: #### L [id number] #### [facility] ([facility]) [address] [place] [address] NRBC (PER 100 WBCS) BY AUTOMATED COUNT 0.0 % Normal 0.0-0.0 [facility] Comment on above: Performed By: #### L [id number] #### [facility] ([facility]) [address] [place] [address] PLATELETS (10*3/UL) IN BLOOD AUTOMATED COUNT 228 10*3/uL Normal 150-400 [facility] Comment on above: Performed By: #### L [id number] #### [facility] ([facility]) [address] [place] [address] RBC (Bld) [#/Vol] 4.48 10*6/uL Normal 4.20-5.70 [facility] Comment on above: Performed By: #### L [id number] #### [facility] ([facility]) [address] [place] [address] WBC (Bld) [#/Vol] 7.26 10*3/uL Normal 4.00-10.60 [facility] Comment on above: Performed By: #### L [id number] #### [facility] ([facility]) [address] [place] [address] MAGNESIUMon 11-17-2022 Magnesium [Mass/Vol] 2.2 mg/dL Normal 1.9-2.7 [facility] Comment on above: Performed By: #### L [id number] #### [facility] ([facility]) [address] [place] [address] PLATELET COUNTon 11-17-2022 PLATELETS (10*3/UL) IN BLOOD AUTOMATED COUNT 225 10*3/uL Normal 150-400 [facility] Comment on above: Order Comment: Waive d Testing in the ED is performed under the ED CLIA certificate #[id number]. Performed By: #### L [id number] #### [facility] ([facility]) [address] [place] [address] POCT GLUCOSE METER UNSOLICIT ED RESULTSon 11-17-2022 Glucose [Mass/Vol] 156 mg/dL High 70-105 [facility] Comment on above: Result Comment: sros [email or web address] Performed By: #### L [id number] #### [facility] ([facility]) [address] [place] [address] Glucose [Mass/Vol] 163 mg/dL High 70-105 [facility] Comment on above: Result Comment: ybak er Performed By: #### L [id number] ####[facility] ([facility])[address] [place] [address] Glucose [Mass/Vol] 190 mg/dL High 70-105 [facility] Comment on above: Result Comment: scam [email or web address] Performed By: #### L [id number] #### [facility] ([facility]) [address] [place] [address] Glucose [Mass/Vol] 131 mg/dL High 70-105 [facility] Comment on above: Result Comment: scam [email or web address] Performed By: #### L [id number] #### [facility] ([facility]) [address] [place] [address] B-TYPE NATRIURETIC PEPTIDEon 11-16-2022 Natriuretic peptide B (Bld) [Mass/Vol] 1630 pg/mL High 0-100 [facility] Comment on above: Performed By: #### L [id number] #### [facility] ([facility]) [address] [place] [address] BASIC METABOLIC PANELon Anion gap [Moles/Vol] 8 mmol/L Normal 7-20 [facility] Comment on above: Performed By: #### L [id number] #### [facility] ([facility]) [address] [place] [address] Calcium [Mass/Vol] 9.1 mg/dL Normal 8.6-10.3 [facility] Comment on above: Performed By: #### L [id number] #### [facility] ([facility]) [address] [place] [address] Chloride [Moles/Vol] 103 mmol/L Normal 98-107 [facility] Comment on above: Performed By: #### L [id number] #### [facility] ([facility]) [address] [place] [address] CO2 [Moles/Vol] 27 mmol/L Normal 21-31 [facility] Comment on above: Performed By: #### L [id number] #### [facility] ([facility]) [address] [place] [address] Creatinine [Mass/Vol] 1.07 mg/dL Normal 0.70-1.30 [facility] Comment on above: Performed By: #### L [id number] #### [facility] ([facility]) [address] [place] [address] GLOMERULAR FILTRATION RATE ML/MIN/1.73 SQ M.PREDICTED 69.5 mL/min/1.73m*2 Normal >60.0 [facility] Comment on above: Result Comment: [facility]???s estimated glomerular filtration rate (eGFR) will no longer include consideration of race in its calculation. The National Kidney Foundation???s eGFR Task Force developed new recommendations for the estimation of the glomerular filtration rate in the [place] They recommend immediate implementation of the new equation refit without the race variable in all laboratories because the calculation does not include race. In addition to not including race in the calculation and reporting, it included diversity in its development, and has acceptable performance characteristics and potential consequences that do not disproportionately affect any one group of individuals. Performed By: #### L [id number] #### [facility] ([facility]) [address] [place] [address] Glucose [Mass/Vol] 149 mg/dL High 70-100 [facility] Comment on above: Performed By: #### L [id number] #### [facility] ([facility]) [address] [place] [address] Potassium [Moles/Vol] 3.9 mmol/L Normal 3.5-5.1 [facility] Comment on above: Performed By: #### L [id number] #### [facility] ([facility]) [address] [place] [address] Sodium [Moles/Vol] 138 mmol/L Normal 136-145 [facility] Comment on above: Performed By: #### L [id number] #### [facility] ([facility]) [address] [place] [address] Urea nitrogen [Mass/Vol] 20 mg/dL Normal 7-25 [facility] Comment on above: Performed By: #### L [id number] #### [facility] ([facility]) [address] [place] [address] UREA NITROGEN/CREATININE (MASS RATIO) IN SER/PLAS 18.69 Normal [facility] Comment on above: Performed By: #### L [id number] #### [facility] ([facility]) [address] [place] [address] CBCon 11-16-2022 Erythrocyte distribution width (RBC) [Ratio] 14.6 % Normal 11.5-15.0 [facility] Comment on above: Performed By: #### L [id number] #### [facility] ([facility]) [address] [place] [address] ERYTHROCYTE MEAN CORPUSCULAR HEMOGLOBIN CONCENTRATION (G/DL) BY AUTOMATED 31.9 g/dL Low 32.0-35.0 [facility] Comment on above: Performed By: #### L [id number] #### [facility] ([facility]) [address] [place] [address] Hematocrit (Bld) [Volume fraction] 37.9 % Low 39.0-55.0 [facility] Comment on above: Performed By: #### L [id number] #### [facility] ([facility]) [address] [place] [address] Hemoglobin (Bld) [Mass/Vol] 12.1 g/dL Low 13.0-17.0 [facility] Comment on above: Performed By: #### L [id number] #### [facility] ([facility]) [address] [place] [address] MCH (RBC) [Entitic mass] 27.4 pg Normal 27.0-33.0 [facility] Comment on above: Performed By: #### L [id number] #### [facility] ([facility]) [address] [place] [address] MCV (RBC) [Entitic vol] 85.9 fL Normal 82.0-98.0 [facility] Comment on above: Performed By: #### L [id number] #### [facility] ([facility]) [address] [place] [address] PLATELETS (10*3/UL) IN BLOOD AUTOMATED COUNT 224 10*3/uL Normal 150-400 [facility] Comment on above: Performed By: #### L [id number] #### [facility] ([facility]) [address] [place] [address] RBC (Bld) [#/Vol] 4.41 10*6/uL Normal 4.20-5.70 [facility] Comment on above: Performed By: #### L [id number] #### [facility] ([facility]) [address] [place] [address] WBC (Bld) [#/Vol] 8.23 10*3/uL Normal 4.00-10.60 [facility] Comment on above: Performed By: #### L [id number] #### [facility] ([facility]) [address] [place] [address] CONSULTon 11-16-2022 CONSULT Adult Nutrition Consult Name: Gadiel Liang Date: 1950 Date of Visit: 11/16/22 Admission Dx: Acute on chronic systolic congestive heart failure ([facility]/HCC) [I50.23] Reason for assessment: high risk and HF Past Medical History: Diagnosis Date Atrial fibrillation ([facility]) AV block, 1st degree CHF (congestive heart failure) ([facility]) Stroke ([facility]) Additional: DM, hypothyroid, GERD, TIA Information obtained from: patient and medical record Nutrition Problems: Swallowing Assessment: Pt denies difficulty swallowing Mouth: Pt denies difficulty chewing Abdominal Assessment: Pt denies N/V/D/C Cognition: A/O x4 Appetite: Pt reports good appetite now but stated it was decreased for the past few weeks [employer] Other factors: edema and SOB, generalized fatigue, weakness [employer] with worsening BLE edema: 1+ pitting upon admission Allergies: No Known Allergies Pt confirms NKFA Current Medications: apixaban, 5 mg, oral, BID atorvastatin, 20 mg, oral, Nightly buPROPion SR, 150 mg, oral, BID carvedilol, 6.25 mg, oral, BID dapagliflozin, 10 mg, oral, Daily furosemide, 40 mg, intravenous, Daily insulin aspart, 0-20 Units, subcutaneous, TID with meals And insulin aspart, 0-20 Units, subcutaneous, Nightly levothyroxine, 37.5 mcg, oral, Daily lisinopril, 5 mg, oral, Daily [Held by provider] metoprolol succinate XL, 50 mg, oral, Daily oxybutynin, 5 mg, oral, BID pantoprazole, 40 mg, oral, Daily Anthropometrics: Height: 182.9 cm (6') Weight: 81.6 kg (179 lb 14.3 oz) BMI (Calculated): 24.39 Wt change: Per Epic review: 88.5kg 12/29/2019 85.7kg 10/16/2022 Diet Info: Dietary Orders (From admission, onward) Start Ordered 11/15/22 1512 Regular Diet Yes Diet effective now Question Answer Comment Room Service? Yes Sodium restriction: HF/Cirrhosis/CKD/ESRD( 2gm NA) Carbohydrate restriction: Diabetic Male (carb 60g/meal) 11/15/22 1514 Percent Meals Eaten (%): 75 (11/16/22 0900 : Nickie Schwarz RN) Meal Intakes: 75-100% Labs: 0 Lab Value Date/Time POCGLU 233 (H) 11/16/2022 1216 BUN 20 11/16/2022 0418 CREATININE 1.07 11/16/2022 0418 NA 138 11/16/2022 0418 K 3.9 11/16/2022 0418 MG 1.9 11/16/2022 0418 HGB 12.1 (L) 11/16/2022 0418 WBC 8.23 11/16/2022 0418 I/O: Intake/Output Summary (Last 24 hours) at 11/16/2022 1356 Last data filed at 11/16/2022 1130 Gross per 24 hour Intake 460 ml Output 500 ml Net -40 ml Nutrition Data: Nutrition history: Pt weighs himself daily and states it ranges 181-185# (82.3-84.1kg). He does not add salt when cooking or eating but otherwise does not limit sodium in his diet. Avoids eating high sugar foods r/t DM. 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 Nutrition Recommendations Check weight: daily Plan: Discussed rationale for diet <2g Na/day as well as daily weights r/t HF. Encouraged pt to continue to weigh himself daily and to continue to avoid adding extra salt when cooking and eating. Discussed label reading to keep total Na intake to <2g/day. Pt verbalized understanding. Diet Education: Diet: 2g Na Diet Literature: given to patient: Heart Failure Nutrition Therapy from Nutrition Care Manual Expect Comply: good Teach back method: teach back used to show pt understanding: pt stated he will look at the food he has at home and review the label for Na content Goals: Nutrition Goals: intake > 75% meals and compliance w/ MNT Normal [facility] CONSULT Consults Heart failu re with reduced ejection fraction. History Of Present Illness Gadiel Liang is a 72 y.o. male presenting with Past medical history of heart failure with reduced ejection fraction 20 to 25%, paroxysmal atrial fibrillation on anticoagulation, insulin-dependent diabetes mellitus, hypothyroidism who presented to the ER for shortness of breath and orthopnea. Patient denied any previous left heart catheterization. Patient has been compliant with GDMT. Patient denied any syncope or presyncope. Patient denied any chest pain.BNP on admission 1500. Bilateral vascular congestion on chest x-ray. Past Medical History He has a past medical history of Atrial fibrillation (CMS/HCC), AV block, 1st degree, CHF (congestive heart failure) (CMS/HCC), and Stroke (CMS/HCC). Surgical History He has a past surgical history that includes Carpal tunnel release; Shoulder surgery; and Vasectomy. Social History He reports that he quit smoking about 31 years ago. His smoking use included cigarettes. He has never used smokeless tobacco. He reports that he does not currently use alcohol. He reports that he does not use drugs. Allergies Patient has no known allergies. Medications Medications Prior to Admission Medication Sig Dispense Refill Last Dose apixaban (Eliquis) 5 mg tablet Take 1 tablet (5 mg) by mouth in the morning and at bedtime. 60 tablet 11 atorvastatin (Lipitor) 20 mg tablet Take 20 mg by mouth at bedtime. buPROPion SR (Wellbutrin SR) 150 mg 12 hr tablet Take 1 tablet twice a day by oral route. 11/15/2022 cabergoline (Dostinex) 0.5 mg tablet Take 1 tablet every other day by oral route. 11/14/2022 esomeprazole (NexIUM) [address] capsule Take 40 mg by mouth before breakfast. Do not open capsule. 11/15/2022 furosemide (Lasix) 20 mg tablet Take 1 tablet by mouth daily for fluid retention as directed 30 tablet 11 11/15/2022 hydrOXYzine HCL (Atarax) 25 mg tablet Take 25 mg by mouth 1 (one) time. Lantus Solostar U-100 Insulin 100 unit/mL (3 mL) pen Inject 30 Units under the skin in the morning. 11/15/2022 levothyroxine (Synthroid, Levoxyl) 75 mcg tablet 37.5 mcg in the morning. 11/15/2022 lisinopril 5 mg tablet Take 1 tablet (5 mg) by mouth in the morning. 30 tablet 11 11/15/2022 metFORMIN (Glucophage) 500 mg tablet Take 500 mg by mouth with breakfast and with evening meal. 11/15/2022 metoprolol succinate XL (Toprol-XL) 50 mg 24 hr tablet Take 1 tablet (50 mg) by mouth in the morning. Do not crush or chew. 30 tablet 11 11/15/2022 oxybutynin (Ditropan) 5 mg tablet Take 5 mg by mouth in the morning and at bedtime. sildenafil (Viagra) 25 mg tablet TAKE 1 TABLET BY MOUTH DAILY DIRECTED 30 MINUTES BEFORE INTERCOURSE Unknown spironolactone (Aldactone) 25 mg tablet Take 0.5 tablets (12.5 mg) by mouth in the evening. Do not start before November 02, 2022. 15 tablet 6 testosterone (Androgel) 50 mg/5 gram (1 %) gel Place 50 mg on the skin in the morning. As directed 11/15/2022 Review of Systems Constitutional: Negative for activity change. Respiratory: Positive for shortness of breath. Negative for cough and wheezing. Cardiovascular: Positive for leg swelling. Negative for chest pain and palpitations. Gastrointestinal: Negative for abdominal distention. Physical Exam Cardiovascular: Rate and Rhythm: Normal rate. Rhythm irregular. Pulses: Normal pulses. Heart sounds: Normal heart sounds. No murmur heard. No friction rub. No gallop. Pulmonary: Effort: Pulmonary effort is normal. Breath sounds: Rales present. Abdominal: General: Abdomen is flat. Neurological: Mental Status: He is alert. Last Recorded Vitals Blood pressure (!) 153/93, pulse 98, temperature 36.5 ???C (97.7 ???F), temperature source Oral, resp. rate 20, height 1.829 m (6'), weight 81.6 kg (179 lb 14.3 oz), SpO2 98 %. Relevant Results Patient had abnormal myocardial perfusion study in 11/08/2022. Inferior perfusion defect probably related to prior infarct. Perfusion Defect There is a left ventricular function defect that is moderate in size with moderate reduction in uptake present in the apical to mid inferior location(s) that is fixed. The possibility of infarction cannot be excluded. Assessment/Plan Principal Problem: Acute on chronic systolic congestive heart failure (CMS/HCC) Assessment: 1/Acute on chronic systolic congestive heart failure, HFrEF with EF 20 to 25%. NYHA class III 2/paroxysmal atrial fibrillation on anticoagulation. Status post DC cardioversion in 10/24. 3/PFO with [id number] shunt. 4/hypertension, uncontrolled Plan: 1/continue GDMT with lisinopril 5 mg daily. We will switch metoprolol succinate to carvedilol 6.25 twice daily daily. We will start the patient on Farxiga 10 mg daily. 2/continue Lasix 40 mg daily, monitor ins and outs, daily weight, 2 L fluid restriction, 2 g sodium restriction. 3/we will switch Eliquis 5 mg twice daily for high [id number] 2 h (more content not included)... Normal [facility] 11-16-2022 -- Attestation signed by Ever Arora MD at 11/16/2022 1:59 PM I personally saw and examined the patient on the same date of service as resident/fellow Dr. Richards. I discussed the findings and therapeutic plan with the resident/fellow Dr. Richards. I agree with the documentation, except for any edits/updates below. Teaching Physician's Revisions: Physical examination was consistent with atrial fibrllation with fibrillatory waves in the JVP, an irregular pulse, and a variable first heart sound. In addition the JVP is elevated c/w right heart failure. I agree with the residents plan, including right and left heart catheterization for an abnormal stress test, reduced ejection fraction, and heart failure. Consults Heart failure with reduced ejection fraction. History Of Present Illness Gadiel Liang is a 72 y.o. male presenting with Past medical history of heart failure with reduced ejection fraction 20 to 25%, paroxysmal atrial fibrillation on anticoagulation, insulin-dependent diabetes mellitus, hypothyroidism who presented to the ER for shortness of breath and orthopnea. Patient denied any previous left heart catheterization. Patient has been compliant with GDMT. Patient denied any syncope or presyncope. Patient denied any chest pain.BNP on admission 1500. Bilateral vascular congestion on chest x-ray. Past Medical History He has a past medical history of Atrial fibrillation (CMS/[facility]), AV block, 1st degree, CHF (congestive heart failure) ([facility]), and Stroke (CMS/[facility]). Surgical History He has a past surgical history that includes Carpal tunnel release; Shoulder surgery; and Vasectomy. Social History He reports that he quit smoking about 31 years ago. His smoking use included cigarettes. He has never used smokeless tobacco. He reports that he does not currently use alcohol. He reports that he does not use drugs. Allergies Patient has no known allergies. Medications Medications Prior to Admission Medication Sig Dispense Refill Last Dose apixaban (Eliquis) 5 mg tablet Take 1 tablet (5 mg) by mouth in the morning and at bedtime. 60 tablet 11 atorvastatin (Lipitor) 20 mg tablet Take 20 mg by mouth at bedtime. buPROPion SR (Wellbutrin SR) 150 mg 12 hr tablet Take 1 tablet twice a day by oral route. 11/15/2022 cabergoline (Dostinex) 0.5 mg tablet Take 1 tablet every other day by oral route. 11/14/2022 esomeprazole (NexIUM) [address] capsule Take 40 mg by mouth before breakfast. Do not open capsule. 11/15/2022 furosemide (Lasix) 20 mg tablet Take 1 tablet by mouth daily for fluid retention as directed 30 tablet 11 11/15/2022 hydrOXYzine HCL (Atarax) 25 mg tablet Take 25 mg by mouth 1 (one) time. Lantus Solostar U-100 Insulin 100 unit/mL (3 mL) pen Inject 30 Units under the skin in the morning. 11/15/2022 levothyroxine (Synthroid, Levoxyl) 75 mcg tablet 37.5 mcg in the morning. 11/15/2022 lisinopril 5 mg tablet Take 1 tablet (5 mg) by mouth in the morning. 30 tablet 11 11/15/2022 metFORMIN (Glucophage) 500 mg tablet Take 500 mg by mouth with breakfast and with evening meal. 11/15/2022 metoprolol succinate XL (Toprol-XL) 50 mg 24 hr tablet Take 1 tablet (50 mg) by mouth in the morning. Do not crush or chew. 30 tablet 11 11/15/2022 oxybutynin (Ditropan) 5 mg tablet Take 5 mg by mouth in the morning and at bedtime. sildenafil (Viagra) 25 mg tablet TAKE 1 TABLET BY MOUTH DAILY DIRECTED 30 MINUTES BEFORE INTERCOURSE Unknown spironolactone (Aldactone) 25 mg tablet Take 0.5 tablets (12.5 mg) by mouth in the evening. Do not start before November 02, 2022. 15 tablet 6 testosterone (Androgel) 50 mg/5 gram (1 %) gel Place 50 mg on the skin in the morning. As directed 11/15/2022 Review of Systems Constitutional: Negative for activity change. Respiratory: Positive for shortness of breath. Negative for cough and wheezing. Cardiovascular: Positive for leg swelling. Negative for chest pain and palpitations. Gastrointestinal: Negative for abdominal distention. Physical Exam Cardiovascular: Rate and Rhythm: Normal rate. Rhythm irregular. Pulses: Normal pulses. Heart sounds: Normal heart sounds. No murmur heard. No friction rub. No gallop. Pulmonary: Effort: Pulmonary effort is normal. Breath sounds: Rales present. Abdominal: General: Abdomen is flat. Neurological: Mental Status: He is alert. Last Recorded Vitals Blood pressure (!) 153/93, pulse 98, temperature 36.5 ???C (97.7 ???F), temperature source Oral, resp. rate 20, height 1.829 m (6'), weight 81.6 kg (179 lb 14.3 oz), SpO2 98 %. Relevant Results Patient had abnormal myocardial perfusion study in 11/08/2022. Inferior perfusion defect probably related to prior infarct. Perfusion Defect There is a left ventricular function defect that is moderate in (more content not included)... Normal [facility] MAGNESIUMon 11-16-2022 Magnesium [Mass/Vol] 2.3 mg/dL Normal 1.9-2.7 [facility] Comment on above: Performed By: #### L [id number] #### [facility] ([facility]) [address] [place] [address] Magnesium [Mass/Vol] 1.9 mg/dL Normal 1.9-2.7 [facility] Comment on above: Performed By: #### L [id number] #### [facility] ([facility]) [address] [place] [address] NURSNOTEon 11-16-2022 NURSNOTE Personnel Clerk Notified Sri MALCOLM that [facility] stated this pt was in 80 A-Flutter. No new orders given. Will continue to monitor. Normal [facility] POCT GLUCOSE METER UNSOLICIT ED RESULTSon 11-16-2022 Glucose [Mass/Vol] 151 mg/dL High 70-105 [facility] Comment on above: Result Comment: [email or web address] Performed By: #### L [id number] ####[facility] ([facility])[address] [place] [address] Glucose [Mass/Vol] 118 mg/dL High 70-105 [facility] Comment on above: Result Comment: [email or web address] Performed By: #### L [id number] ####[facility] ([facility])[address] [place] [address] Glucose [Mass/Vol] 233 mg/dL High 70-105 [facility] Comment on above: Result Comment: anau Performed By: #### L [id number] #### [facility] ([facility]) [address] [place] [address] Glucose [Mass/Vol] 121 mg/dL High 70-105 [facility] Comment on above: Result Comment: anau Performed By: #### L [id number] ####[facility] ([facility])[address] [place] [address] Glucose [Mass/Vol] 144 mg/dL High 70-105 [facility] Comment on above: Result Comment: [email or web address] Performed By: #### L [id number] #### [facility] ([facility]) [address] [place] [address] APTTon 11-15-2022 ACTIVATED PARTIAL THROMBOPLASTIN TIME IN PPP BY COAGULATION ASSAY 30.7 Seconds Normal 25.0-35.0 [facility] Comment on above: Performed By: #### L [id number] #### [facility] ([facility]) [address] [place] [address] B-TYPE NATRIURETIC PEPTIDEon 11-15-2022 Natriuretic peptide B (Bld) [Mass/Vol] 1517 pg/mL High 0-100 [facility] Comment on above: Performed By: #### L [id number] #### [facility] ([facility]) [address] [place] [address] BASIC METABOLIC PANELon Anion gap [Moles/Vol] 10 mmol/L Normal 7-20 [facility] Comment on above: Performed By: #### L [id number] #### [facility] ([facility]) [address] [place] [address] Calcium [Mass/Vol] 9.3 mg/dL Normal 8.6-10.3 [facility] Comment on above: Performed By: #### L [id number] #### [facility] ([facility]) [address] [place] [address] Chloride [Moles/Vol] 104 mmol/L Normal 98-107 [facility] Comment on above: Performed By: #### L [id number] #### [facility] ([facility]) [address] [place] [address] CO2 [Moles/Vol] 22 mmol/L Normal 21-31 [facility] Comment on above: Performed By: #### L [id number] #### [facility] ([facility]) [address] [place] [address] Creatinine [Mass/Vol] 1.05 mg/dL Normal 0.70-1.30 [facility] Comment on above: Performed By: #### L [id number] #### [facility] ([facility]) [address] [place] [address] GLOMERULAR FILTRATION RATE ML/MIN/1.73 SQ M.PREDICTED 71.1 mL/min/1.73m*2 Normal >60.0 [facility] Comment on above: Result Comment: The [facility]???s estimated glomerular filtration rate (eGFR) will no longer include consideration of race in its calculation. The National Kidney Foundation???s eGFR Task Force developed new recommendations for the estimation of the glomerular filtration rate in the [place] They recommend immediate implementation of the new equation refit without the race variable in all laboratories because the calculation does not include race. In addition to not including race in the calculation and reporting, it included diversity in its development, and has acceptable performance characteristics and potential consequences that do not disproportionately affect any one group of individuals. Performed By: #### L [id number] #### [facility] ([facility]) [address] [place] [address] Glucose [Mass/Vol] 229 mg/dL High 70-100 [facility] Comment on above: Performed By: #### L [id number] #### [facility] ([facility]) [address] [place] [address] Potassium [Moles/Vol] 4.2 mmol/L Normal 3.5-5.1 [facility] Comment on above: Performed By: #### L [id number] #### [facility] ([facility]) [address] [place] [address] Sodium [Moles/Vol] 136 mmol/L Normal 136-145 [facility] Comment on above: Performed By: #### L [id number] #### [facility] ([facility]) [address] [place] [address] Urea nitrogen [Mass/Vol] 20 mg/dL Normal 7-25 [facility] Comment on above: Performed By: #### L [id number] #### [facility] ([facility]) [address] [place] [address] UREA NITROGEN/CREATININE (MASS RATIO) IN SER/PLAS 19.05 Normal [facility] Comment on above: Performed By: #### L [id number] #### [facility] ([facility]) [address] [place] [address] CBC WITH AUTO DIFFERENTIALon 11-15-2022 Basophils (Bld) [#/Vol] 0.03 10*3/uL Normal 0.00-0.20 [facility] Comment on above: Performed By: #### L [id number] #### [facility] ([facility]) [address] [place] [address] Basophils/100 WBC (Bld) 0.4 % Normal 0.0-1.0 [facility] Comment on above: Performed By: #### L [id number] #### [facility] ([facility]) [address] [place] [address] Eosinophils (Bld) [#/Vol] 0.07 10*3/uL Normal 0.00-0.50 [facility] Comment on above: Performed By: #### L [id number] #### [facility] ([facility]) [address] [place] [address] Eosinophils/100 WBC (Bld) 1.0 % Normal 0.0-6.0 [facility] Comment on above: Performed By: #### L [id number] #### [facility] ([facility]) [address] [place] [address] Erythrocyte distribution width (RBC) [Ratio] 14.7 % Normal 11.5-15.0 [facility] Comment on above: Performed By: #### L [id number] #### [facility] ([facility]) [address] [place] [address] ERYTHROCYTE MEAN CORPUSCULAR HEMOGLOBIN CONCENTRATION (G/DL) BY AUTOMATED 31.8 g/dL Low 32.0-35.0 [facility] Comment on above: Performed By: #### L [id number] #### [facility] ([facility]) [address] [place] [address] Hematocrit (Bld) [Volume fraction] 40.2 % Normal 39.0-55.0 [facility] Comment on above: Performed By: #### L [id number] #### [facility] ([facility]) [address] [place] [address] Hemoglobin (Bld) [Mass/Vol] 12.8 g/dL Low 13.0-17.0 [facility] Comment on above: Performed By: #### L [id number] #### [facility] ([facility]) [address] [place] [address] Immature granulocytes (Bld) [#/Vol] 0.04 10*3/uL Normal 0.00-0.20 [facility] Comment on above: Performed By: #### L [id number] #### [facility] ([facility]) [address] [place] [address] Immature granulocytes/100 WBC (Bld) 0.6 % Normal 0.0-1.0 [facility] Comment on above: Performed By: #### L [id number] #### [facility] ([facility]) [address] [place] [address] Lymphocytes (Bld) [#/Vol] 0.73 10*3/uL Low 1.20-4.00 [facility] Comment on above: Performed By: #### L [id number] #### [facility] ([facility]) [address] [place] [address] Lymphocytes/100 WBC (Bld) 10.2 % Low 20.0-45.0 [facility] Comment on above: Performed By: #### L [id number] #### [facility] ([facility]) [address] [place] [address] MCH (RBC) [Entitic mass] 27.4 pg Normal 27.0-33.0 [facility] Comment on above: Performed By: #### L [id number] #### [facility] ([facility]) [address] [place] [address] MCV (RBC) [Entitic vol] 85.9 fL Normal 82.0-98.0 [facility] Comment on above: Performed By: #### L [id number] #### [facility] ([facility]) [address] [place] [address] Monocytes (Bld) [#/Vol] 0.59 10*3/uL Normal 0.10-1.00 [facility] Comment on above: Performed By: #### L [id number] #### [facility] ([facility]) [address] [place] [address] Monocytes/100 WBC (Bld) 8.2 % Normal 5.0-12.0 [facility] Comment on above: Performed By: #### L [id number] #### [facility] [address] [place] [address] Neutrophils (Bld) [#/Vol] 5.72 10*3/uL Normal 1.60-7.60 [facility] Comment on above: Performed By: #### L [id number] #### [facility] ([facility] [address] [place] [address] Neutrophils/100 WBC (Bld) 79.6 % High 40.0-72.0 [facility] Comment on above: Performed By: #### L [id number] #### [facility] ([facility] [address] [place] [address] NRBC (PER 100 WBCS) BY AUTOMATED COUNT 0.0 % Normal 0.0-0.0 [facility] Comment on above: Performed By: #### L [id number] #### [facility] ([facility]) [address] [place] [address] PLATELETS (10*3/UL) IN BLOOD AUTOMATED COUNT 245 10*3/uL Normal 150-400 [facility] Comment on above: Performed By: #### L [id number] #### [facility] ([facility]) [address] [facility] [place] [address] RBC (Bld) [#/Vol] 4.68 10*6/uL Normal 4.20-5.70 [facility] Comment on above: Performed By: #### L [id number] #### [facility] ([facility]) [address] [place] [address] WBC (Bld) [#/Vol] 7.18 10*3/uL Normal 4.00-10.60 [facility] Comment on above: Performed By: #### L [id number] #### [facility] ([facility]) [address] [facility] [address] EDPROVon 11-15-2022 EDPROV [facility] [address] [facility] [address] EMERGENCY DEPARTMENT ENCOUNTER CHIEF COMPLAINT Chief Complaint Patient presents with Shortness of Breath Dec the it all started with the Sob HISTORY OF PRESENT ILLNESS 72-year-old male with past medical history of recently diagnosed systolic congestive heart failure and persistent atrial fibrillation is brought to the emergency department by his from the town of [place] for progressive fatigue, weakness, decreased appetite and shortness of breath. Patient and his state that he was initially diagnosed with atrial fibrillation back in October. He underwent a MOMO which demonstrated an EF of 20% . He then underwent electrical cardioversion which successfully restored sinus rhythm however he subsequently went back into atrial fibrillation and according to the patient, he has remained in A. fib since that time. He follows with our [facility] cardiology clinic. He was seen at the [facility] emergency department on November 10 for the same symptoms of today. They state that he had a chest x-ray and some lab work done but was ultimately discharged home. He reports that the next appointment for him to be seen in the cardiology clinic is not until November 20 and his does not believe he will make it that far due to his progressive decline. Patient states he is not currently short of breath at rest but with minimal exertion he becomes very winded. He denies any chest pain or angina. He denies any history of coronary artery disease or heart attack. His believes he had an abnormal stress test at the very end of October but he has not followed up with cardiology since this. He denies any history of lung disease or smoking. He denies any fever, chills or flulike symptoms. No cough or congestion. REVIEW OF SYSTEMS Review of Systems Constitutional: Negative for chills and fever. Negative other than stated in HPI, ten systems reviewed. HENT: Negative for congestion, ear pain, postnasal drip, rhinorrhea and sore throat. Eyes: Negative for visual disturbance. Respiratory: Negative for cough, shortness of breath and wheezing. Cardiovascular: Negative for chest pain, palpitations and leg swelling. Gastrointestinal: Negative for abdominal pain, constipation, diarrhea, nausea and vomiting. Genitourinary: Negative for dysuria, flank pain and hematuria. Musculoskeletal: Negative for myalgias. Skin: Negative for rash and wound. Neurological: Negative for syncope, weakness and headaches. Psychiatric/Behavioral : Negative for behavioral problems, confusion, hallucinations and suicidal ideas. All other systems reviewed and are negative. PAST MEDICAL HISTORY has a past medical history of Atrial fibrillation ([facility]), AV block, 1st degree, CHF (congestive heart failure) ([facility]), and Stroke ([facility]). SURGICAL HISTORY has a past surgical history that includes Carpal tunnel release; Shoulder surgery; and Vasectomy. CURRENT MEDICATIONS Discharge Medication List as of 11/20/2022 4:58 PM CONTINUE these medications which have NOT CHANGED Details apixaban (Eliquis) 5 mg tablet Take 1 tablet (5 mg) by mouth in the morning and at bedtime., Starting Sat10/16/2022, Until Sat10/16/2023, Normal buPROPion SR (Wellbutrin SR) 150 mg 12 hr tablet Take 1 tablet twice a day by oral route., Historical Med cabergoline (Dostinex) 0.5 mg tablet Take 1 tablet every other day by oral route., Historical Med esomeprazole (NexIUM) [address] capsule Take 40 mg by mouth before breakfast. Do not open capsule., Historical Med levothyroxine (Synthroid, Levoxyl) 75 mcg tablet 37.5 mcg in the morning., Starting Sat04/13/2020, Historical Med lisinopril 5 mg tablet Take 1 tablet (5 mg) by mouth in the morning., Starting Sat10/26/2022, Normal metFORMIN (Glucophage) 500 mg tablet Take 500 mg by mouth with breakfast and with evening meal., Starting Sat10/14/2022, Historical Med spironolactone (Aldactone) 25 mg tablet Take 0.5 tablets (12.5 mg) by mouth in the evening. Do not start before November 02, 2022., Starting Sat11/02/2022, Normal Lantus Solostar U-100 Insulin 100 unit/mL (3 mL) pen Inject 30 Units under the skin in the morning., Starting Sat10/10/2022, Historical Med testosterone (Androgel) 50 mg/5 gram (1 %) gel Place 50 mg on the skin in the morning. As directed, Historical Med hydrOXYzine HCL (Atarax) 25 mg tablet Take 25 mg by mouth 1 (one) time., Historical Med oxybutynin (Ditropan) 5 mg tablet Take 5 mg by mouth in the morning and at bedtime., Historical Med sildenafil (Viagra) 25 mg tablet TAKE 1 TABLET BY MOUTH DAILY DIRECTED 30 MINUTES BEFORE INTERCOURSE, Historical Med ALLERGIES is allergic to lisinopril. FAMILY HISTORY He indicated that the status of his mother is unknown. He indicated that the status of his father is unknown. He indic (more content not included)... Normal [facility] MAGNESIUMon 11-15-2022 Magnesium [Mass/Vol] 1.9 mg/dL Normal 1.9-2.7 [facility] Comment on above: Performed By: #### L [id number] #### [facility] ([facility]AKER) [address] [place] [address] POCT GLUCOSE METER UNSOLICIT ED RESULTSon 11-15-2022 Glucose [Mass/Vol] 268 mg/dL High 70-105 [facility] Comment on above: Result Comment: bpen anita Performed By: #### L [id number] #### [facility] ([place]) [address] [place] [address] PROTIME-INRon 11-15-2022 INR IN PPP BY COAGULATION ASSAY 1.87 High 0.90-1.10 [facility] Comment on above: Result Comment: ACCC P RECOMMENDED INR FOR WARFARIN THERAPY CONDITION INR PROPHYLAXIS OF VENOUS THROMBOSIS 2-3 (HIGH-RISK SURGERY) TREATMENT OF VENOUS THROMBOSIS 2-3 TREATMENT OF PULMONARY EMBOLISM 2-3 PREVENTION OF SYSTEMIC EMBOLISM: 2-3 ACUTE MYOCARDIAL INFARCTION TISSUE HEART VALVES VALVULAR HEART DISEASE ATRIAL FIBRILLATION RECURRENT SYSTEMIC EMBOLISM MECHANICAL HEART VALVE 2.5-3.5 FROM: ORAL ANTICOAGULANTS. MECHANISM OF ACTION, CLINICAL EFFECTIVENESS, AND OPTIMAL THERAPEUTIC RANGE. CHEST 1995;108:231S-246S. Performed By: #### L [id number] #### [facility] Prep[employer]amps) [address] [place] [address] PROTHROMBIN TIME (PT) IN PPP BY COAGULATION ASSAY 21.2 Seconds High 12.3-14.8 [facility] Comment on above: Performed By: #### L [id number] #### [facility] ([place]) [address] [place] [address] TROPONIN Ion 11-15-2022 Troponin I.cardiac [Mass/Vol] 0.03 ng/mL Normal 0.00-0.04 [facility] Comment on above: Performed By: #### L [id number] #### [facility] ([place]) [address] [place] [address] TSH3 REFLEX TO FT4on 023 THYROTROPIN (MIU/L) IN SER/PLAS BY DETECTION LIMIT <= 0.05 MIU/L 4.08 mIU/L Normal 0.34-5.60 [facility] Comment on above: Performed By: #### L [id number] ####[facility] ([facility])[address] [place] [address] URINALYSIS MICROSCOPIC WITH REFLEX CULTUREon 11-15-2022 CASTS IN URINE Present Abnormal None Seen [facility] Comment on above: Performed By: #### L [id number] #### [facility] ([place]) [address] [place] [address] CRYSTALS IN URINE Normal [facility] Comment on above: Performed By: #### L [id number] #### [facility] ([facility]) [address] [facility] [place] [address] HYALINE CASTS /LPF IN URINE SEDIMENT BY MICROSCOPY 1 /LPF High <1 [facility] Comment on above: Performed By: #### L [id number] #### [facility] ([facility]) [address] [place] [address] LEUKOCYTE ESTERASE PRESENCE IN URINE BY TEST STRIP Negative Normal Negative [facility] Comment on above: Performed By: #### L [id number] #### [facility] ([facility]) [address] [place] [address] Order Comment: 0000 MUCUS (#/HPF) IN URINE SEDIMENT Occasional Normal None Seen, Occasional, Few [facility] Comment on above: Performed By: #### L [id number] #### [facility] ([facility]) [address] [place] [address] NITRITE PRESENCE IN URINE Negative Normal Negative [facility] Comment on above: Performed By: #### L [id number] #### [facility] ([facility]) [address] [place] [address] Order Comment: 0000 OTHER MICROSCOPIC ELEMENTS Normal [facility] Comment on above: Performed By: #### L [id number] #### [facility] ([facility]AKER) [address] [place] [address] RBC (#/HPF) IN URINE SEDIMENT 0-2 Abnormal None Seen [facility] Comment on above: Performed By: #### L [id number] #### [facility] ([facility]ER) [address] [place] [address] SQUAMOUS EPITHELIAL CELLS (#/HPF) IN URINE SEDIMENT Occasional Normal None Seen, Occasional [facility] Comment on above: Performed By: #### L [id number] #### [facility] ([facility]ER) [address] [place] [address] WBC (LEUKOCYTE) (#/HPF) IN URINE SEDIMENT 0-2 Abnormal None Seen [facility] Comment on above: Performed By: #### L [id number] #### [facility] ([facility]) [address] [place] [address] URINALYSIS WITH REFLEX CULTU REon 11-15-2022 BILIRUBIN, TOTAL PRESENCE IN URINE Negative Normal Negative [facility] Comment on above: Order Comment: 0000 Performed By: #### L [id number] #### [facility] ([facility]) [address] [place] [address] Clarity (U) Clear Normal Clear [facility] Comment on above: Order Comment: 0000 Performed By: #### L [id number] #### [facility] ([facility]) [address] [place] [address] Color (U) Yellow Normal Yellow, Dark Yellow, Straw [facility] Comment on above: Order Comment: 0000 Performed By: #### L [id number] #### [facility] ([facility]) [address] [place] [address] Glucose (U) [Mass/Vol] Negative Normal Negative [facility] Comment on above: Order Comment: 0000 Performed By: #### L [id number] #### [facility] ([facility]) [address] [place] [address] HEMOGLOBIN PRESENCE IN URINE Negative Normal Negative [facility] Comment on above: Order Comment: 0000 Performed By: #### L [id number] #### [facility] ([facility]) [address] [place] [address] Ketones Ql (U) Negative Normal Negative [facility] Comment on above: Order Comment: 0000 Performed By: #### L [id number] #### [facility] ([facility]) [address] [place] [address] pH (U) 6.0 [pH] Normal 5.0-8.0 [facility] Comment on above: Order Comment: 0000 Performed By: #### L [id number] #### [facility] ([facility]) [address] [place] [address] Protein (U) [Mass/Vol] 30 mg/dL Abnormal Negative [facility] Comment on above: Order Comment: 0000 Performed By: #### L [id number] #### [facility] ([facility]) [address] [place] [address] Specific gravity (U) [Rel density] 1.020 Normal 1.015-1.020 [facility] Comment on above: Order Comment: 0000 Performed By: #### L [id number] #### [facility] ([place]) [address] [place] [address] UROBILINOGEN (EU/DL) IN URINE 1.0 EU/dL Normal Negative [facility] Comment on above: Order Comment: 0000 Performed By: #### L [id number] #### [facility] ([place]) [address] [place] [address] BNPon 11-10-2022 Natriuretic peptide B (Bld) [Mass/Vol] 6259.0 pg/mL Critically high <=900.0 [facility] Comment on above: Performed By: #### B CHIEF INTERNAL AUDITOR, BMP, HSTROPN #### [facility] [address] [place] [address] Dr. Esme Jackson CBC AUTO DIFFon 11-10-2022 BASO # 0.0 103/ul Normal 0.0-0.1 [facility] Comment on above: Performed By: #### C BC #### [facility] [address] [place] [address] [address] Esme Jackson Basophils/100 WBC (Bld) 0.5 % Normal 0.2-2.0 [facility] Comment on above: Performed By: #### C BC #### [facility] [address] [place] [address] Dr. Esme Jackson EO # 0.3 103/ul Normal 0.0-0.7 [facility] Comment on above: Performed By: #### C BC #### [facility] [address] [address] [address] Esme Jackson Eosinophils/100 WBC (Bld) 3.6 % Normal 0.9-7.0 [facility] Comment on above: Performed By: #### C BC #### [facility] [address] [place] [address] Dr. Esme Jackson Erythrocyte distribution width (RBC) [Ratio] 14.8 % Normal 11.0-15.0 [facility] Comment on above: Performed By: #### C BC #### [facility] [address] [place] [address] Dr. Esme Jackson Hematocrit (Bld) [Volume fraction] 36.9 % Critically low 42.0-54.0 [facility] Comment on above: Performed By: #### C BC #### [facility] [address] [place] [address] Dr. Esme Jackson Hemoglobin (Bld) [Mass/Vol] 12.0 g/dL Critically low 14.0-18.0 [facility] Comment on above: Performed By: #### C BC #### [facility] [address] [place] [address] Dr. Esme Jackson IG # 0.04 10e3/ul Critically high 0.00-0.03 [facility] Comment on above: Performed By: #### C BC #### [facility] [address] [place] [address] Dr. Esme Jackson IG % 0.5 % Normal 0.0-0.5 [facility] Comment on above: Performed By: #### C BC #### [facility] [address] [place] [address] Dr. Esme Jackson LYMPH # 1.3 103/ul Normal 1.2-3.8 [facility] Comment on above: Performed By: #### C BC #### [facility] [address] [place] [address] Dr. Esme Jackson Lymphocytes/100 WBC (Bld) 18.2 % Critically low 20.5-60.0 [facility] Comment on above: Performed By: #### C BC #### [facility] [address] [place] [address] Dr. Esme Jackson MANUAL DIFF REQ NO Normal [facility] Comment on above: Performed By: #### C BC #### [facility] [address] [place] [address] Dr. Esme aJckson MCH (RBC) [Entitic mass] 28.0 pg Normal 25.9-34.0 [facility] Comment on above: Performed By: #### C BC #### [facility] [address] [place] [address] Dr. Esme Jackson MCHC (RBC) [Mass/Vol] 32.5 g/dL Normal 29.9-35.2 [facility] Comment on above: Performed By: #### C BC #### [facility] [address] [place] [address] Dr. Esme Jackson MCV (RBC) [Entitic vol] 86.0 fL Normal 80.0-94.0 [facility] Comment on above: Performed By: #### C BC #### [facility] [address] [place] [address] Dr. Esme Jackson MONO # 0.5 103/ul Normal 0.3-0.8 [facility] Comment on above: Performed By: #### C BC #### [facility] [address] [place] [address] Dr. Esme Jackson Monocytes/100 WBC (Bld) 7.3 % Normal 1.7-12.0 [facility] Comment on above: Performed By: #### C BC #### [facility] [address] [place] [address] Dr. Esme Jackson NEUT # 5.1 103/ul Normal 1.4-6.5 [facility] Comment on above: Performed By: #### C BC #### [facility] [address] [place] [address] Dr. Esme Jackson Neutrophils/100 WBC (Bld) 69.9 % Normal 43.0-75.0 [facility] Comment on above: Performed By: #### C BC #### [facility] [address] [place] [address] Dr. Esme Jackson Platelet mean volume (Bld) [Entitic vol] 10.3 fL Normal 9.5-13.5 [facility] Comment on above: Performed By: #### C BC #### [facility] [address] [place] [address] Dr. Esme Jackson PLT 220 103/ul Normal 150-450 [facility] Comment on above: Performed By: #### C BC #### [facility] [address] [place] [address] Dr. Esme Jackson RBC 4.29 106/ul Critically low 4.70-6.10 [facility] Comment on above: Performed By: #### C BC #### [facility] [address] [place] [address] Dr. Esme Jackson WBC 7.3 103/ul Normal 4.0-11.0 [facility] Comment on above: Performed By: #### C BC #### [facility] [address] [place] [address] Dr. Esme Jackson [facility]13 SARS-CoV-2 (COVID-19) RNA HANSA+probe Ql (Unsp spec) Not detected Normal NOT DETECTED [facility] Comment on above: Result Comment: When diagnostic testing is negative, the possibility of a false negative should be considered in the context of a patient's recent exposures and the presence of clinical signs and symptoms consistent with SARS-CoV-2. This test is not yet approved or cleared by the [place] FDA. When there are no FDA-approved or cleared tests available, and other criteria are met, FDA can make tests available under an emergency access mechanism called an Emergency Use Authorization (EUA). The EUA for this test is supported by the [place] of Health and Human Service's declaration that circumstances exist to justify the emergency use of in vitro diagnostics for the detection and/or diagnosis of the virus that causes COVID-19. This EUA will remain in effect for the duration of the COVID-19 declaration justifying emergency of IVDs, unless it is terminated or revoked by the FDA (after which the test may no longer be used). Performed By: #### C VDTBH #### [facility] [address] [place] [address] Dr. Esme Jackson INFL[facility]ENZA [facility] Normal [facility] Comment on above: Result Comment: Nega tive for Flu A protein angiten. Infection due to Flu A cannot be ruled out. Flu A angiten in the sample may be below the detection limit of the test. Performed By: #### F T4 #### [facility] [address] [place] [address] Dr. [facility] Normal [facility] Comment on above: Result Comment: Nega tive for Flu B protein antigen. Infection due to Flu B cannot be ruled out. Flu B antigen in the sample may be below the detection limit of the test. Performed By: #### F T4 #### [facility] [address] [place] [address] Dr. Esme Jackson INFLUENZA A AG Negative Normal NEGATIVE SEE COMMENT [facility] Comment on above: Performed By: #### F T4 #### [facility] [address] [place] [address] Dr. Esme Jackson INFLUENZA B AG Negative Normal NEGATIVE SEE COMMENT [facility] Comment on above: Performed By: #### F T4 #### [facility] [address] [place] [address] Dr. Esme Jacskon PROF CHEM 8 (BAS METB)on Anion gap [Moles/Vol] 13.9 mmol/L Normal [facility] Comment on above: Performed By: #### B CHIEF INTERNAL AUDITOR, BMP, HSTROPN #### [facility] [address] [address] [address] Esme Jackson Calcium [Mass/Vol] 8.7 mg/dL Normal 8.5-10.1 [facility] Comment on above: Performed By: #### B CHIEF INTERNAL AUDITOR, BMP, HSTROPN #### [facility] [address] [address] [address] Esme Jackson Chloride [Moles/Vol] 104 mmol/L Normal 98-107 [facility] Comment on above: Performed By: #### B CHIEF INTERNAL AUDITOR, BMP, HSTROPN #### [facility] [address] [address] [address] Esme Jackson CO2 [Moles/Vol] 25.2 mmol/L Normal 21.0-32.0 [facility] Comment on above: Performed By: #### B CHIEF INTERNAL AUDITOR, BMP, HSTROPN #### [facility] [address] [place] [address] Dr. Esme Jackson Creatinine [Mass/Vol] 1.04 mg/dL Normal 0.70-1.30 [facility] Comment on above: Performed By: #### B CHIEF INTERNAL AUDITOR, BMP, HSTROPN #### [facility] [address] [place] [address] Dr. Esme Jackson EGFR-AF EMIRATI >60 Normal >=60 [facility] Comment on above: Performed By: #### B CHIEF INTERNAL AUDITOR, BMP, HSTROPN #### [facility] [address] [place] [address] Dr. Esme Jackson EGFR-NON AF EMIRATI >60 Normal >=60 [facility] Comment on above: Performed By: #### B CHIEF INTERNAL AUDITOR, BMP, HSTROPN #### [facility] [address] [place] [address] Dr. Esme Jackson Glucose [Mass/Vol] 199 mg/dL Critically high 74-106 [facility] Comment on above: Performed By: #### B CHIEF INTERNAL AUDITOR, BMP, HSTROPN #### [facility] [address] [place] [address] Dr. Esme Jackson Potassium [Moles/Vol] 4.1 mmol/L Normal 3.5-5.1 [facility] Comment on above: Performed By: #### B CHIEF INTERNAL AUDITOR, BMP, HSTROPN #### [facility] [address] [address] [address] Esme Jackson Sodium [Moles/Vol] 139 mmol/L Normal 136-145 [facility] Comment on above: Performed By: #### B CHIEF INTERNAL AUDITOR, BMP, HSTROPN #### [facility] [address] [address] [address] Esme Jackson Urea nitrogen [Mass/Vol] 18.0 mg/dL Normal 7.0-18.0 [facility] Comment on above: Performed By: #### B CHIEF INTERNAL AUDITOR, BMP, HSTROPN #### [facility] [address] [place] [address] Dr. Esme Jackson Urea nitrogen/Creatinine [Mass ratio] 17.3 mg/mg Normal [facility] Comment on above: Performed By: #### B CHIEF INTERNAL AUDITOR, BMP, HSTROPN #### [facility] [address] [place] [address] Dr. Esme Jackson TROPONIN, HIGH SENSITIVITYon 11-10-2022 HSTROP 35.5 pg/mL Normal 4.0-76.1 [facility] Comment on above: Result Comment: CUT- OFF POINTS HAVE BEEN ESTABLISHED BASED ON THE FOURTH UNIVERSAL DEFINITIONS OF MYOCARDIAL INFARCTION. THE UPPER REFERENCE LIMIT (URL) OF TROPONIN, DEFINED THE 99TH PERCENTILE OF cTnI DISTRIBUTION IN A REFERENCE POPULATION, HAS BEEN CONFIRMED THE DECISION THRESHOLD FOR [place] DIAGNOSIS. Performed By: #### B CHIEF INTERNAL AUDITOR, BMP, HSTROPN #### [facility] [address] [place] [address] Dr. Esme Jackson XR CHEST 1 Von 11-10-2022 XR CHEST 1 V EXAM: XR CHEST 1 V 11/10/2022 COMPARISON STUDY: PA and lateral chest 10/15/2022. FINDINGS: Upright AP chest image was obtained. HISTORY: SHORTNESS OF BREATH. IMPRESSION: 1. The cardiomediastinal contours are stable. Mild enlargement of the cardiac silhouette noted. 2. Mild acute interstitial edema pattern persists. Small bilateral pleural effusions with bibasilar atelectatic changes suspected again. There is no pneumothorax. The osseous structures are stable. Electronically authenticated by: RY [place] Date: 2022-11-10 09:24 [facility] 29on 10-26-2022 29 Addended by: TONY ADHIKARI on: 10/26/2022 06:54 PM Modules accepted: Level of Service [facility] 29 Addended by: VINI CRAWFORD on: 10/26/2022 12:29 PM Modules accepted: Orders [facility] 29 Addended by: TONY ADHIKARI on: 10/26/2022 12:21 PM Modules accepted: Orders [facility] 37on 10-26-2022 37 Take Furosemide 20mg once per day for 3 days. If this makes your breathing better, then continue daily. If not, then only take for weight gain of 2lbs in 1 day or 5lbs in 1 233k. Stop metoprolol tartrate Start Metoprolol: Succinate (long acting) 50mg daily. Start Lisinopril 5mg daily (instead of Ramipril). Take in evening if this makes you dizzy during daytime After 1 week, start Spironolactone 1/2 of 25mg tablet, in the evening. Weigh daily. Call for wt up 2lbs in 1 day or 5lbs in 1 week. Call for BP top number below 100 AND lighteaded or dizzy. Continue very low salt Limit oral fluids to 1 1/2 Liters/Quarts or 46 ounces. Labs in 2 weeks, okay to eat prior Kind Tony briones [facility] Cardiovascular Medicine [phone] [facility] Appointmenton 10-26-2022 Appointment [phone] Gadiel Liang 1950 M Date Provider Department Center 10/26/2022 [id number] ADHIKARI [facility] Family History Problem Relation Age of Onset No Known Problems Mother No Known Problems Father No Known Problems Sister No Known Problems Brother No Known Problems Mother's Sister No Known Problems Mother's Brother No Known Problems Father's Sister No Known Problems Father's Brother No Known Problems Maternal Grandmother No Known Problems Maternal Grandfather No Known Problems Paternal Grandmother No Known Problems Paternal Grandfather No Known Problems Other Family Status - Relation Status Age at Mother Father Sister Brother Mother's Sister Mother's Brother Father's Sister Father's Brother Maternal Grandmother Maternal Grandfather Paternal Grandmother Paternal Grandfather Other Level of Service:[address] [place] OFFICE/OUTPATIENT ESTABLISHED MOD [facility] 30-39 MIN Reason for Visit and Comments: Atrial Fibrillation [80] Congestive Heart Failure [127] Normal [facility] ANESon 10-24-2022 ANES -- Attestation signed by Clem Wylie MD at 10/24/2022 7:05 PM By using the attestations below, the signing clinician agrees that I have read and verify that the documentation has been personally reviewed by me and ensure that the documentation accurately reflects the encounter. GC: I personally saw this patient on the day of the encounter, performed the chappell portion(s) of the service and participated in the management and confirm the resident's documentation. Please note there may be an additional personal documentation from me. Patient: Gadiel Liang Procedure Information Date/Time: 10/24/22 1200 Procedure: Cardioversion - w MOMO to be done the week of Oct 22 2022 Location: [facility] 3 / [facility] (Cath) Providers: Eliceo Rosenberg MD Clinical information reviewed: Allergies Meds Physical Exam Airway Mallampati: II TM distance: >3 FB Neck ROM: full Cardiovascular Rhythm: irregular Rate: normal Dental Pulmonary Abdominal Anesthesia Plan ASA 3 Anesthetic plan and risks discussed with patient. Use of blood products discussed with patient who consented to blood products. Plan discussed with attending. Additional Equipment Requests Lavern Lang MD Major Assembly Lineman - PGY4 [facility] Normal [facility] BASIC METABOLIC PANELon 12-1 Anion gap [Moles/Vol] 10 mmol/L Normal 7-20 [facility] Comment on above: Performed By: #### L [id number] #### [facility] ([facility]) [address] [place] [address] Calcium [Mass/Vol] 8.7 mg/dL Normal 8.6-10.3 [facility] Comment on above: Performed By: #### L [id number] #### [facility] ([facility]) [address] [place] [address] Chloride [Moles/Vol] 109 mmol/L High 98-107 [facility] Comment on above: Performed By: #### L [id number] #### [facility] ([facility]) [address] [place] [address] CO2 [Moles/Vol] 22 mmol/L Normal 21-31 [facility] Comment on above: Performed By: #### L [id number] #### [facility] ([facility]) [address] [place] [address] Creatinine [Mass/Vol] 0.78 mg/dL Normal 0.70-1.30 [facility] Comment on above: Performed By: #### L [id number] #### [facility] ([facility]) [address] [place] [address] GLOMERULAR FILTRATION RATE ML/MIN/1.73 SQ M.PREDICTED 90.8 mL/min/1.73m*2 Normal >60.0 [facility] Comment on above: Result Comment: The [facility]???s estimated glomerular filtration rate (eGFR) will no longer include consideration of race in its calculation. The National Kidney Foundation???s eGFR Task Force developed new recommendations for the estimation of the glomerular filtration rate in the [place] They recommend immediate implementation of the new equation refit without the race variable in all laboratories because the calculation does not include race. In addition to not including race in the calculation and reporting, it included diversity in its development, and has acceptable performance characteristics and potential consequences that do not disproportionately affect any one group of individuals. Performed By: #### L [id number] #### [facility] ([facility]) [address] [place] [address] Glucose [Mass/Vol] 171 mg/dL High 70-100 [facility] Comment on above: Performed By: #### L [id number] #### [facility] ([facility]) [address] [place] [address] Potassium [Moles/Vol] 4.0 mmol/L Normal 3.5-5.1 [facility] Comment on above: Performed By: #### L [id number] #### [facility] ([facility]) [address] [place] [address] Sodium [Moles/Vol] 141 mmol/L Normal 136-145 [facility] Comment on above: Performed By: #### L [id number] #### [facility] ([facility] [address] [place] [address] Urea nitrogen [Mass/Vol] 21 mg/dL Normal 7-25 [facility] Comment on above: Performed By: #### L [id number] #### [facility] ([facility]) [address] [place] [address] UREA NITROGEN/CREATININE (MASS RATIO) IN SER/PLAS 26.92 Normal [facility] Comment on above: Performed By: #### L [id number] #### [facility] ([facility]) [address] [place] [address] CBCon 10-24-2022 Erythrocyte distribution width (RBC) [Ratio] 14.4 % Normal 11.5-15.0 [facility] Comment on above: Performed By: #### L [id number] #### [facility] ([facility]) [address] [place] [address] ERYTHROCYTE MEAN CORPUSCULAR HEMOGLOBIN CONCENTRATION (G/DL) BY AUTOMATED 33.0 g/dL Normal 32.0-35.0 [facility] Comment on above: Performed By: #### L [id number] #### [facility] ([facility]) [address] [place] [address] Hematocrit (Bld) [Volume fraction] 36.1 % Low 39.0-55.0 [facility] Comment on above: Performed By: #### L [id number] #### [facility] ([facility]) [address] [place] [address] Hemoglobin (Bld) [Mass/Vol] 11.9 g/dL Low 13.0-17.0 [facility] Comment on above: Performed By: #### L [id number] #### [facility] ([facility]) [address] [place] [address] MCH (RBC) [Entitic mass] 28.2 pg Normal 27.0-33.0 [facility] Comment on above: Performed By: #### L [id number] #### [facility]) [address] [place] [address] MCV (RBC) [Entitic vol] 85.5 fL Normal 82.0-98.0 [facility] Comment on above: Performed By: #### L [id number] #### [facility] ([facility]) [address] [place] [address] PLATELETS (10*3/UL) IN BLOOD AUTOMATED COUNT 241 10*3/uL Normal 150-400 [facility] Comment on above: Performed By: #### L [id number] #### [facility] ([facility]) [address] [place] [address] RBC (Bld) [#/Vol] 4.22 10*6/uL Normal 4.20-5.70 [facility] Comment on above: Performed By: #### L [id number] #### [facility] ([facility]) [address] [place] [address] WBC (Bld) [#/Vol] 8.39 10*3/uL Normal 4.00-10.60 [facility] Comment on above: Performed By: #### L [id number] #### [facility] [address]) [place] [address] HPon 10-24-2022 HP -- Attestation signed by Clem Wylie MD at 10/24/2022 7:05 PM By using the attestations below, the signing clinician agrees that I have read and verify that the documentation has been personally reviewed by me and ensure that the documentation accurately reflects the encounter. GC: I personally saw this patient on the day of the encounter, performed the chappell portion(s) of the service and participated in the management and confirm the resident's documentation. Please note there may be an additional personal documentation from me. H&P reviewed. The patient was examined and there are no changes to the H&P. Risks and benefits of the procedure were explained to the patient who has elected to move forward with the procedure. Lavern Lang MD Major Assembly Lineman - PGY4 [facility] Office Visiton 10-16-2022 Follow-up visit [id number] Gadiel Liang 1950 M Date Provider Department Center 10/16/2022 [id number]-[id number] [facility] Family History Problem Relation Age of Onset No Known Problems Mother No Known Problems Father No Known Problems Sister No Known Problems Brother No Known Problems Mother's Sister No Known Problems Mother's Brother No Known Problems Father's Sister No Known Problems Father's Brother No Known Problems Maternal Grandmother No Known Problems Maternal Grandfather No Known Problems Paternal Grandmother No Known Problems Paternal Grandfather No Known Problems Other Family Status - Relation Status Age at Mother Father Sister Brother Mother's Sister Mother's Brother Father's Sister Father's Brother Maternal Grandmother Maternal Grandfather Paternal Grandmother Paternal Grandfather Other Level of Service:[address] [place] OFFICE/OUTPATIENT NEW LOW MDM 30-44 MINUTES Normal [facility] Covid-19 PCR (CVDTB)on SARS-CoV-2 (COVID-19) RNA HANSA+probe Ql (Unsp spec) Not detected Normal NOT DETECTED [facility] Comment on above: Result Comment: When diagnostic testing is negative, the possibility of a false negative should be considered in the context of a patient's recent exposures and the presence of clinical signs and symptoms consistent with SARS-CoV-2. This test is not yet approved or cleared by the [place] FDA. When there are no FDA-approved or cleared tests available, and other criteria are met, FDA can make tests available under an emergency access mechanism called an Emergency Use Authorization (EUA). The EUA for this test is supported by the [employer] Supervisor of Health and Human Service's declaration that circumstances exist to justify the emergency use of in vitro diagnostics for the detection and/or diagnosis of the virus that causes COVID-19. This EUA will remain in effect for the duration of the COVID-19 declaration justifying emergency of IVDs, unless it is terminated or revoked by the FDA (after which the test may no longer be used). Performed By: #### C VDTB #### [facility] [address] [place] [address] Dr. Esme Jackson INFLUENZA A AND B AGon 10-15 INFLUANE SEE BELOW Normal [facility] Comment on above: Result Comment: Nega tive for Flu A protein angiten. Infection due to Flu A cannot be ruled out. Flu A angiten in the sample may be below the detection limit of the test. Performed By: #### F T4 #### [facility] [address] [place] [address] Dr. Esme Jackson INFLUBNEG SEE BELOW Normal [facility] Comment on above: Result Comment: Nega tive for Flu B protein antigen. Infection due to Flu B cannot be ruled out. Flu B antigen in the sample may be below the detection limit of the test. Performed By: #### F T4 #### [facility] [address] [place] [address] Dr. Esme Jackson INFLUENZA A AG Negative Normal NEGATIVE SEE COMMENT [facility] Comment on above: Performed By: #### F T4 #### [facility] [address] [address] [address] Esme Jackson INFLUENZA B AG Negative Normal NEGATIVE SEE COMMENT [facility] Comment on above: Performed By: #### F T4 #### [facility] [address] [place] [address] Dr. Esme Jackson INTERNAL CONTROLS Within Normal Limits Normal Wi thin Normal Limits [facility] Comment on above: Performed By: #### F T4 #### [facility] [address] [place] [address] Dr. Esme Jackson XR CHEST 2 Von 10-15-2022 XR CHEST 2 V EXAMINATION: XR CHES T 2 V HISTORY: SHORTNESS OF BREATH COMPARISON: No relevant comparison available. FINDINGS: LUNGS: Mild haziness and stranding throughout the lungs. Bilateral peripheral septal thickening. VASCULATURE: No increased pulmonary vasculature. PLEURA: Blunting of posterior costophrenic angles suggestive of pleural fluid. No pneumothorax. CARDIAC: No cardiomegaly or cardiac silhouette abnormality. MEDIASTINUM: No visible mass or adenopathy. BONES: No fracture or visible bone lesion. OTHER: Negative. IMPRESSION: 1. Mild bilateral pulmonary edema and small pleural effusions. 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) Orders Central hypogonadism, Central hypothyroidism, Hyperlipemia, Hypogonadism male, Pituitary macroadenoma, Thyroid nodule, Type 2 diabetes mellitus with other specified complication, with long-term current use of insulin Dexa Bone Density Axial Skeleton; Status:Hold For - Scheduling; Requested for:10Oct2022; Perform: Radiology Services Imaging; Due:08Jan2023;Ordered; For:Central hypogonadism, Central hypothyroidism, Hyperlipemia, Hypogonadism male, Pituitary macroadenoma, Thyroid nodule, Type 2 diabetes mellitus with other specified complication, with long-term current use of insulin; Ordered By:Mandie Osborne; Radiologist to Determine Optimal Study : Y What are the patient's signs and symptoms? : pituitary insufficiency Central hypothyroidism, Hyperlipemia, Hypogonadism male, Pituitary macroadenoma, Thyroid nodule, Type 2 diabetes mellitus with other specified complication, with long-term current use of insulin Start: Ramipril 5 MG Oral Capsule; TAKE 1 CAPSULE ONCE DAILY Rx By: Mandie Osborne; Dispense: 30 Days ; #:30 Capsule; Refill: 11;For: Central hypothyroidism, Hyperlipemia, Hypogonadism male, Pituitary macroadenoma, Thyroid nodule, Type 2 diabetes mellitus with other specified complication, with long-term current use of insulin; CATIE = N; Verified Transmission to [id number]; Last Updated By: GabbyQuintiles; 10/10/2022 11:29:03 AM Albumin, Urine Spot; Status:Active; Requested for:10Oct2022; Perform:Lab Services - Lab To Draw (Non-Blood Test); Due:08Jan2023;Ordered; For:Central hypothyroidism, Hyperlipemia, Hypogonadism male, Pituitary macroadenoma, Thyroid nodule, Type 2 diabetes mellitus with other specified complication, with long-term current use of insulin; Ordered By:Mandie Osborne; Brain Natriuretic Peptide BNP; Status:Active; Requested for:10Oct2022; Perform:Lab Services - Lab To Draw (Blood Test); Due:08Jan2023;Ordered; For:Central hypothyroidism, Hyperlipemia, Hypogonadism male, Pituitary macroadenoma, Thyroid nodule, Type 2 diabetes mellitus with other specified complication, with long-term current use of insulin; Ordered By:Mandie Osborne; Complete Blood Count + Differential; Status:Active; Requested for:10Oct2022; Perform:Lab Services - Lab To Draw (Blood Test); Due:[id number];Ordered; For:Central hypothyroidism, Hyperlipemia, Hypogonadism male, Pituitary macroadenoma, Thyroid nodule, Type 2 diabetes mellitus with other specified complication, with long-term current use of insulin; Ordered By:Mandie Osborne; Comprehensive Metabolic Panel; Status:Active; Requested for:10Oct2022; Perform:Lab Services - Lab To Draw (Blood Test); Due:[id number];Ordered; For:Central hypothyroidism, Hyperlipemia, Hypogonadism male, Pituitary macroadenoma, Thyroid nodule, Type 2 diabetes mellitus with other specified complication, with long-term current use of insulin; Ordered By:Mandie Osborne; Cortisol, Unspecified; Status:Active; Requested for:10Oct2022; Perform:Lab Services - Lab To Draw (Blood Test); Due:[id number];Ordered; For:Central hypothyroidism, Hyperlipemia, Hypogonadism male, Pituitary macroadenoma, Thyroid nodule, Type 2 diabetes mellitus with other specified complication, with long-term current use of insulin; Ordered By:Mandie Osborne; Hemoglobin A1C; Status:Active; Requested for:10Oct2022; Perform:Lab Services - Lab To Draw (Blood Test); Due:[id number];Ordered; For:Central hypothyroidism, Hyperlipemia, Hypogonadism male, Pituitary macroadenoma, Thyroid nodule, Type 2 diabetes mellitus with other specified complication, with long-term current use of insulin; Ordered By:Mandie Osborne; Lipid Panel; Status:Active; Requested for:10Oct2022; Perform:Lab Services - Lab To Draw (Blood Test); Due:[id number];Ordered; For:Central hypothyroidism, Hyperlipemia, Hypogonadism male, Pituitary macroadenoma, Thyroid nodule, Type 2 diabetes mellitus with other specified complication, with long-term current use of insulin; Ordered By:Mandie Osborne; Prolactin, Serum; Status:Active; Requested for:10Oct2022; Perform:Lab Services - Lab To Draw (Blood Test); Due:[id number];Ordered; For:Central hypothyroidism, Hyperlipemia, Hypogonadism male, Pituitary macroadenoma, Thyroid nodule, Type 2 diabetes mellitus with other specified complication, with long-term current use of insulin; Ordered By:Mandie Osborne; T4 - Free Thyroxine, Serum; Status:Active; Requested for:10Oct2022; Perform:Lab Services - Lab To Draw (Blood Test); Due:08Jan2023;Ordered; For:Central hypothyroidism, Hyperlipemia, Hypogonadism male, Pituitary macroadenoma, Thyroid nodule, Type 2 (more content not included)... Normal [facility] CNPNon 07-02-2022 CNPN Telephone (ENDOMN) GADIEL LIANG ([id number]) 1950 M Date Time Provider Department 07/02/22 MANDIE OSBORNE ENDOMN During your visit today, we recorded the following information about you: Janee Saul 07/02/2022 2:40 PM Signed Received Thyroid US report from [facility]. Indexed into chart. Allergies As of Date: 07/02/2022 Noted Allergy Reaction LISINOPRIL 04/28/2015 14 - Other: See Comments Comments: Fatigue Date Reviewed: 01/21/2019 Reviewed by: Maricruz Allison Ma - Fully Assessed Reason for Visit: Received Outside Medical Records [[id number]] Cmt: Received Thyroid US report from [facility]. Indexed into chart. Prescriptions as of 07/02/2022 - testosterone (ANDROGEL) 50 mg / 5 g (1%) APPLY CONTENTS OF 1 PACKET TO AFFECTED AREA ONCE DAILY DIRECTED - buPROPion SR (ZYBAN SR; WELLBUTRIN SR) 150 mg 12 hr tablet Take 1 tablet by mouth twice daily. - levothyroxine (SYNTHROID) 75 mcg tablet Take 0.5 tablets by mouth once daily. - cabergoline (DOSTINEX) 0.5 mg tablet Take one tablet every other day - insulin glargine (LANTUS SOLOSTAR U-100 INSULIN) 100 unit/mL (3 mL) INJECT 50 UNITS UNDER THE SKIN TWICE A DAY - metFORMIN (GLUCOPHAGE) 500 mg tablet TAKE 2 TABLETS TWICE A DAY WITH MEALS - atorvastatin (LIPITOR) 10 mg tablet Take 1 tablet by mouth daily at bedtime. - iv contrast (will be provided with radiology test) MRI Pituitary Inject, intravenously, once for 1 dose. No IV access, insert saline lock prior to the beginning of sedation, infusion, injection of imaging exam. Discontinue saline lock post exam. If Pt. has a central line or IVAD, may access for administration according to line specific nursing protocol. Once exam is complete flush line and de-access according to line specific nursing protocol in the MR contrast administration guidelines link. - blood sugar diagnostic (ACCU-CHEK ALICIA PLUS TEST STRP) test strip Use as instructed - Lancets (ACCU-CHEK SOFTCLIX LANCETS) lancets Use as instructed - Insulin [place], Disposable, (BD ULTRAFINE III MINI PEN) 31 gauge x 3/16 ndle USE WITH INSULIN PENS three times a day - aspirin, enteric coated (ASPIRIN, ENTERIC COATED) 81 mg EC tablet Take 81 mg by mouth once daily. - MULTIVIT ANDMINERALS/FERROUS FUM (MULTI VITAMIN ORAL) Take by mouth once daily. - ASCORBIC ACID (VITAMIN C ORAL) Take by mouth once daily. - CYANOCOBALAMIN, VITAMIN B-12, (VITAMIN B-12 ORAL) Take by mouth once daily. - esomeprazole 20 mg capsule Take 20 mg by mouth once daily. 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 Esme Jackson MICROALBUMIN URINEon 022 Albumin, Urine 36.5 ug/mL Normal Not Estab. [facility] Comment on above: Performed By: #### F T4 #### [facility] [address] [address] [address] Esme Jackson FREE T4on 06-22-2022 Free T4 [Mass/Vol] 1.22 ng/dL Normal 0.76-1.[address] [facility] Comment on above: Performed By: #### F T4 #### [facility] [address] [place] [address] Dr. Esme Jackson GLYCOHEMOGLOBIN A1Con 2021 ADA RECOMMENDATION SEE BELOW Normal [facility] Comment on above: Result Comment: ADA RECOMMENDED LIMIT 4.0 - 6.0 ADA THERAPEUTIC TARGET < 7.0 ACTION SUGGESTED > 7.0 Performed By: #### F T4 #### [facility] [address] [place] [address] Dr. Esme Jackson Glucose [Mass/Vol] 194 mg/dL Normal [facility] Comment on above: Performed By: #### F T4 #### [facility] [address] [place] [address] Dr. Esme Jackson HbA1c (Bld) [Mass fraction] 8.4 % Critically high 4.5-6.2 [facility] Comment on above: Performed By: #### F T4 #### [facility] [address] [place] [address] Dr. Esme Jackson LIPID PROFILEon 06-22-2022 CHOL-HDL RATIO NORM SEE BELOW Normal [facility] Comment on above: Result Comment: 3.3 - 4.4 LOW RISK 4.4 - 7.1 AVERAGE RISK 7.1 - 11.0 MODERATE RISK >11.0 HIGH RISK Performed By: #### F T4 #### [facility] [address] [place] [address] Dr. Esme Jackson Cholesterol [Mass/Vol] 153 mg/dL Normal <=200 [facility] Comment on above: Performed By: #### F T4 #### [facility] [address] [address] [address] Esme Jackson Cholesterol in HDL [Mass/Vol] 55 mg/dL Normal 40-60 [facility] Comment on above: Performed By: #### F T4 #### [facility] [address] [address] [address] Esme Jackson Cholesterol in LDL [Mass/Vol] 82.2 mg/dL Normal [facility] Comment on above: Performed By: #### F T4 #### [facility] [address] [address] [address] Esme Jackson Cholesterol.total/C holesterol in HDL [Mass ratio] 2.8 {ratio} Normal [facility] Comment on above: Performed By: #### F T4 #### [facility] [address] [place] [address] Dr. Esme Jackson HDL NORMAL > or = 60 mg/dl - LO W CARDIOVASCULAR RISK <40 mg/dl - HIGH CARDIOVASCULAR RISK Normal [facility] Comment on above: Performed By: #### F T4 #### [facility] [address] [place] [address] Dr. Esme Jackson LDL CALC NORMAL SEE BELOW Normal [facility] Comment on above: Result Comment: <100 mg/dl OPTIMAL 100 - 129 mg/dl NEAR OR ABOVE OPTIMAL 130 - 159 mg/dl BORDERLINE HIGH 160 - 189 mg/dl HIGH >190 mg/dl VERY HIGH Performed By: #### F T4 #### [facility] [address] [place] [address] Dr. Esme Jackson Triglyceride [Mass/Vol] 79 mg/dL Normal <=150 [facility] Comment on above: Performed By: #### F T4 #### [facility] [address] [place] [address] Dr. Esme Jackson VLDL CALC 15.8 mg/dL Normal [facility] Comment on above: Performed By: #### F T4 #### [facility] [address] [address] [address] Esme Jackson PROF 14(COMP METB)on 022 Albumin [Mass/Vol] 3.9 g/dL Normal 3.4-5.0 [facility] Comment on above: Performed By: #### F T4 #### [facility] [address] [place] [address] Dr. Esme Jackson Albumin/Globulin [Mass ratio] 1.1 {ratio} Normal [facility] Comment on above: Performed By: #### F T4 #### [facility] [address] [place] [address] Dr. Esme Jackson ALP [Catalytic activity/Vol] 57 U/L Normal 46-116 [facility] Comment on above: Performed By: #### F T4 #### [facility] [address] [place] [address] Dr. Esme Jackson ALT [Catalytic activity/Vol] 22 U/L Normal 16-63 [facility] Comment on above: Performed By: #### F T4 #### [facility] [address] [place] [address] Dr. Esme Jackson Anion gap [Moles/Vol] 12.6 mmol/L Normal [facility] Comment on above: Performed By: #### F T4 #### [facility] [address] [place] [address] Dr. Esme Jackson AST [Catalytic activity/Vol] 18 U/L Normal 15-37 [facility] Comment on above: Performed By: #### F T4 #### [facility] [address] [place] [address] Dr. Esme Jackson Bilirubin [Mass/Vol] 1.1 mg/dL Critically high 0.2-1.0 [facility] Comment on above: Performed By: #### F T4 #### [facility] [address] [place] [address] Dr. Esme Jackson Calcium [Mass/Vol] 9.0 mg/dL Normal 8.5-10.[address] [facility] Comment on above: Performed By: #### F T4 #### [facility] [address] [place] [address] Dr. Esme Jackson Chloride [Moles/Vol] 103 mmol/L Normal 98-107 [facility] Comment on above: Performed By: #### F T4 #### [facility] [address] [place] [address] Dr. Esme Jackson CO2 [Moles/Vol] 27.2 mmol/L Normal 21.0-32.0 [facility] Comment on above: Performed By: #### F T4 #### [facility] [address] [address] [address] Esme Jackson Creatinine [Mass/Vol] 0.90 mg/dL Normal 0.70-1.30 [facility] Comment on above: Performed By: #### F T4 #### [facility] [address] [place] [address] Dr. Esme Jackson EGFR-AF EMIRATI >60 Normal >=60 [facility] Comment on above: Performed By: #### F T4 #### [facility] [address] [place] [address] Dr. Esme Jackson EGFR-NON AF EMIRATI >60 Normal >=60 [facility] Comment on above: Performed By: #### F T4 #### [facility] [address] [address] [address] Esme Jackson Globulin (S) [Mass/Vol] 3.4 g/dL Normal [facility] Comment on above: Performed By: #### F T4 #### [facility] [address] [place] [address] Dr. Esme Jackson Glucose [Mass/Vol] 185 mg/dL Critically high 74-106 [facility] Comment on above: Performed By: #### F T4 #### [facility] [address] [place] [address] Dr. Esme Jackson Potassium [Moles/Vol] 3.8 mmol/L Normal 3.5-5.1 [facility] Comment on above: Performed By: #### F T4 #### [facility] [address] [place] [address] Dr. Esme Jackson Protein [Mass/Vol] 7.3 g/dL Normal 6.4-8.2 [facility] Comment on above: Performed By: #### F T4 #### [facility] [address] [place], [place] [address] Dr. Esme Jackson Sodium [Moles/Vol] 139 mmol/L Normal 136-145 [facility] Comment on above: Performed By: #### F T4 #### [facility] [address] [place], [place] [address] Dr. Esme Jackson Urea nitrogen [Mass/Vol] 12.0 mg/dL Normal 7.0-18.0 [facility] Comment on above: Performed By: #### F T4 #### [facility] [address] [place], [place] [address] Dr. Esme Jackson Urea nitrogen/Creatinine [Mass ratio] 13.3 mg/mg Normal [facility] Comment on above: Performed By: #### F T4 #### [facility] [address] [place], [place] [address] Dr. Esme Jackson US THYROIDon 06-22-2022 US THYROID EXAMINATION: US THYROID HISTORY: Non-toxic uninodular goiter COMPARISON: 12/31/2020 TECHNIQUE: Sonographic images of the thyroid gland were obtained. FINDINGS: The right thyroid lobe measures 4.4 x 2.1 x 1.2 cm. 2 focal nodules. Nodule 1: Inferior. 0.9 x 0.7 x 0.8 cm. Solid, hypoechoic, tall, ill-defined margins, macrocalcifications. TR 5 Nodule 2: Inferior. 1.0 x 0.9 x 0.8 cm. Solid, hypoechoic, wide, lobular margins, no calcifications. TR 4 Thyroid isthmus is thickened measuring 5 mm, nodule The left thyroid lobe measures 3.4 x 1.7 x 1.0 cm. Single nodule over 5 mm Nodule 1: Inferior. 0.7 0.5 to 0.6 cm. Mixed solid and cystic, hypoechoic, wide, smooth margins, no calcifications. TR 3 IMPRESSION: Stable bilateral thyroid nodules. 1 year follow-up recommended TI-RADS: The [employer] TI-RADS committee's white paper recommendations for thyroid lesions classified as TR5 (highly suspicious) are listed below: > 0.5 cm. Annual ultrasound follow-up for up to 5 years. > 1.0 cm. FNA. J. Am Dionicio Radiol 2017;14:587-595. 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) Thyroid nodule (241.0) (E04.1) Type 2 diabetes mellitus with other specified complication, with long-term current use of insulin (250.80,V58.67) (E11.69,Z79.4) Orders Central hypothyroidism, Hyperlipemia, Hypogonadism male, Pituitary macroadenoma, Thyroid nodule, Type 2 diabetes mellitus with other specified complication, with long-term current use of insulin Albumin, Urine Spot; Status:Active; Requested for:24Apr2022; Perform:Lab Services - Lab To Draw (Non-Blood Test); Due:23Jul2022;Ordered; For:Central hypothyroidism, Hyperlipemia, Hypogonadism male, Pituitary macroadenoma, Thyroid nodule, Type 2 diabetes mellitus with other specified complication, with long-term current use of insulin; Ordered By:Mandie Osborne; Comprehensive Metabolic Panel; Status:Active; Requested for:24Apr2022; Perform:Lab Services - Lab To Draw (Blood Test); Due:[id number];Ordered; For:Central hypothyroidism, Hyperlipemia, Hypogonadism male, Pituitary macroadenoma, Thyroid nodule, Type 2 diabetes mellitus with other specified complication, with long-term current use of insulin; Ordered By:Mandie Osborne; Cortisol A.M.; Status:Active; Requested for:24Apr2022; Perform:Lab Services - Lab To Draw (Blood Test); Due:[id number];Ordered; For:Central hypothyroidism, Hyperlipemia, Hypogonadism male, Pituitary macroadenoma, Thyroid nodule, Type 2 diabetes mellitus with other specified complication, with long-term current use of insulin; Ordered By:Mandie Osborne; Hemoglobin A1C; Status:Active; Requested for:24Apr2022; Perform:Lab Services - Lab To Draw (Blood Test); Due:23Jul2022;Ordered; For:Central hypothyroidism, Hyperlipemia, Hypogonadism male, Pituitary macroadenoma, Thyroid nodule, Type 2 diabetes mellitus with other specified complication, with long-term current use of insulin; Ordered By:Mandie Osborne; Lipid Panel; Status:Active; Requested for:24Apr2022; Perform:Lab Services - Lab To Draw (Blood Test); Due:23Jul2022;Ordered; For:Central hypothyroidism, Hyperlipemia, Hypogonadism male, Pituitary macroadenoma, Thyroid nodule, Type 2 diabetes mellitus with other specified complication, with long-term current use of insulin; Ordered By:Mandie Osborne; T4 - Free Thyroxine, Serum; Status:Active; Requested for:24Apr2022; Perform:Lab Services - Lab To Draw (Blood Test); Due:23Jul2022;Ordered; For:Central hypothyroidism, Hyperlipemia, Hypogonadism male, Pituitary macroadenoma, Thyroid nodule, Type 2 diabetes mellitus with other specified complication, with long-term current use of insulin; Ordered By:Mandie Osborne; Testosterone, Level; Status:Active; Requested for:24Apr2022; Perform:Lab Services - Lab To Draw (Blood Test); Due:23Jul2022;Ordered; For:Central hypothyroidism, Hyperlipemia, Hypogonadism male, Pituitary macroadenoma, Thyroid nodule, Type 2 diabetes mellitus with other specified complication, with long-term current use of insulin; Ordered By:Mandie Osborne; Ultrasound Thyroid; Status:Hold For - Scheduling; Requested for:24Apr2022; Perform:[facility]; Due:23Jul2022;Ordered; For:Central hypothyroidism, Hyperlipemia, Hypogonadism male, Pituitary macroadenoma, Thyroid nodule, Type 2 diabetes mellitus with other specified complication, with long-term current use of insulin; Ordered By:Mandie Osborne; Radiologist to Determine Optimal Study : Y What are the patient's signs and symptoms? : thyroid nodule Central hypothyroidism, Thyroid nodule Renew: Levothyroxine Sodium 75 MCG Oral Tablet (Synthroid); TAKE 1/2 TABLET DAILY. Please make a follow up appointment Rx By: Mandie Osborne; Dispense: 90 Days ; #:45 Tablet; Refill: 3;For: Central hypothyroidism, Thyroid nodule; CATIE = N; Verified Transmission to [facility]; Last Updated By: [employer]; 04/24/2022 10:33:22 AM Hypogonadism male, Pituitary macroadenoma Renew: Testosterone 50 MG/5GM (1%) Transdermal Gel; APPLY 1 PACKET ONE TIME DAILY DIRECTED Rx By: Mandie Osborne; Dispense: 0 Days ; #:90 X 5 GM Package; Refill: 1;For: Hypogonadism male, Pituitary macroadenoma; CATIE = N; [facility]; Last Updated By: [employer]; 04/24/2022 10:33:21 AM Pituitary macroadenoma Renew: Cabergoline 0.5 MG Oral Tablet; Take 1 tablet every other day Rx By: Mandie Osborne; Dispense: 80 Days ; #:40 Tablet; Refill: 3;For: Pituitary macroadenoma; CATIE = N; Verified [facility]; Last Updated By: [employer]; 04/24/2022 10:33:26 AM Type 2 diabetes mellitus with other specified complication, with long-term current use of insulin Renew: Accu-Chek Alicia Plus In Vitro Strip; TEST TWICE DAILY Rx B (more content not included)... Normal [facility] Tobacco Screening.on 022 Adult depression screening assessment No [facility] [address] Work Phone: Fall risk assessment a) No falls within the last year [facility] [address] Work Phone: Tobacco use status [facility] b) No [facility] [address] Work Phone: ISTAT XRay CREon 10-13-2021 Creatinine [Mass/Vol] 0.8 mg/dL Normal 0.6-1.3 [facility] Comment on above: Result Comment: ER/E SD physician is notified/shown all ISTAT results. Critical values may be confirmed by laboratory testing if deemed necessary by ER attending doctor. Performed By: #### I SCRE #### [address] Point of Care testing , ISTAT GFR ( > 60 Normal [facility] Comment on above: Result Comment: GFR estimated reference range: According to KDOQI guidelines, <60 ml/min/1.73m2 is sufficient to diagnose a patient with chronic kidney disease. PERFORMED BY: [place] [address] PATHOLOGIST [employer]EDER ANJANA SEWELL M.D. Performed By: #### I SCRE #### [address] Point of Care testing , ISTAT GFR (Non- Am > 60 Normal [facility] Comment on above: Performed By: #### I SCRE #### [address] Point of Care testing , MR head/brain wo/w conon MR head/brain wo/w con [facility] [place] [address] [place] [address] MRI Report Signed Patient: Gadiel Liang MR#: [id number] : 1950 Acct:[id number] Age/Sex: 71 / M ADM Date: 10/13/21 Loc: [facility] Room: Type: [facility] Attending Dr: Rj Oropeza DO Ordering Provider: Ever Oropeza DO Date of Service: 10/13/21 MR/MR head/brain wo/w con: G30.1, Z86.73, F02.80 Copies to: Ever Oropeza DO MRI head 10/13/2021. CLINICAL DATA: Late onset Alzheimer disease. Dementia. History of ischemic stroke. TECHNIQUE: MRI of the head was performed without and with intravenous contrast. COMPARISON: None. FINDINGS: There is generalized parenchymal volume loss. There are also nonspecific cerebral white matter changes most consistent with chronic microvascular ischemic disease. There is a remote white matter infarct adjacent to the body of the right lateral ventricle. Other smaller remote infarcts are suspected in both lentiform nuclei and in the subinsular region posteriorly on the right. This findings could alternatively represent enlarged perivascular spaces. There is no restricted diffusion to indicate acute ischemia or infarction. 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 The pituitary gland is compressed and the sella is expanded. Differential considerations include but are not limited to Rathke cleft cyst, craniopharyngioma, and cystic pituitary adenoma. No other intracranial mass or abnormal contrast enhancement is identified. No abnormal extra-axial fluid collection is seen. The paranasal sinuses and the mastoids appear unremarkable. MR/MR head/brain wo/w con IMPRESSION: 1. Chronic findings as described. 2. 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 Follow-up high-field MRI with attention to the pituitary/sella turcica without and with int ravenous contrast is suggested. Impression dictated by: Carlos Lugo Jr., M.D.10/13/2021 2:48 PM Dictation Location: [place] [address] Transcribed By: [facility] 10/13/21 1448 Dictated By: Carlos Lugo Jr, MD 10/13/21 1423 Signed By: 10/13/21 1448 [facility] Vital Signs Date Time Vital Sign Value Performing Clinician Facility 10-29-2023 13:30-0500 Body height 182.88 cm Joseluis Quiroz [facility] [employer] [facility] Other 10-29-2023 13:30-0500 Body mass index (BMI) [Ratio] 26.09 kg/m2 Joseluis Quiroz [facility] [employer] [facility] Other 10-29-2023 13:30-0500 Body weight 87.27 kg Joseluis Quiroz [facility] [employer] [facility] Other 10-29-2023 13:30-0500 Diastolic blood pressure 72 mm[Hg] Joseluis Quiroz [facility] [employer] [facility] Other 10-29-2023 13:30-0500 SaO2% (BldA) [Mass fraction] 93 % Joseluis Quiroz [facility] [employer] [facility] Other 10-29-2023 13:30-0500 Systolic blood pressure 130 mm[Hg] Joseluis Quiroz [facility] [employer] [facility] Other 08-19-2023 11:00-0400 Body height 182.88 cm Joseluis Quiroz [facility] [employer] [facility] Other 08-19-2023 11:00-0400 Body mass index (BMI) [Ratio] 25.36 kg/m2 Joseluis Quiroz [facility] [employer] [facility] Other 08-19-2023 11:00-0400 Body weight 84.82 kg Joseluis Quiroz [facility] [employer] [facility] Other 08-19-2023 11:00-0400 Diastolic blood pressure 61 mm[Hg] Joseluis Quiroz [facility] [employer] [facility] Other 08-19-2023 11:00-0400 Systolic blood pressure 126 mm[Hg] Joseluis Quiroz [facility] [employer] [facility] Other Encounters Encounter Date Encounter Type Care Provider Facility Start: 10-29-2023 End: 10-29-2023 ambulatory Joseluis Quiroz [facility] [employer] [facility] Other Start: 10-29-2023 Office outpatient visit 15 minutes Joseluis Quiroz [facility] Start: 10-16-2023 End: 10-16-2023 ambulatory Joseluis Quiroz [facility] [employer] [facility] Other Start: 10-16-2023 Telephone encounter Joseluis Quiroz [facility] Start: 09-13-2023 End: 09-13-2023 ambulatory Joseluis Quiroz [facility] [employer] [facility] Other Start: 09-13-2023 Telephone encounter Joseluis Quiroz [facility] Start: 09-10-2023 End: 09-10-2023 ambulatory Joseluis Quiroz [facility] [employer] [facility] Other Start: 09-10-2023 Telephone encounter Joseluis Quiroz [facility] Start: 08-19-2023 End: 08-19-2023 ambulatory Joseluis Quiroz [facility] [employer] [facility] Other Start: 08-19-2023 Office outpatient visit 15 minutes Joseluis Quiroz [facility] Start: 07-31-2023 End: 07-31-2023 ambulatory Joseluis Quiroz [facility] [employer] [facility] Other Start: 07-31-2023 Telephone encounter Joseluis Quiroz [facility] Start: 07-30-2023 End: 07-30-2023 ambulatory [facility] Start: 06-05-2023 End: 06-05-2023 ambulatory [facility] Start: 05-29-2023 Rx Renewal Cabrera Dupont Work Phone: [facility] [address] Work Phone: Start: 05-02-2023 ambulatory [facility] Start: 05-02-2023 End: 05-03-2023 Evaluation and management of inpatient [facility] Start: 04-30-2023 End: 05-03-2023 ambulatory [facility] Start: 04-26-2023 End: 04-27-2023 ambulatory [facility] Start: 04-08-2023 Rx Renewal Cabrera Dupont Work Phone: [facility] [address] [place] Work Phone: Start: 03-20-2023 End: 03-20-2023 ambulatory [facility] Start: 02-28-2023 End: 03-01-2023 ambulatory ELICEO ROSENBERG Facility:H1 Start: 01-30-[address] JOSELUIS QUIROZ Facil ity:H1 Start: 01-29-2023 End: 01-29-2023 ambulatory [facility] Start: 01-22-2023 AUDIT Cabrera Dupont Work Phone: [facility] Work Phone: Start: 01-22-2023 Rx Renewal Carbera Dupont Work Phone: [facility] [address] [place] Work Phone: Start: 01-03-2023 End: 01-29-[address] JOSELUIS QUIROZ Facility:H1 Start: 11-28-2022 End: 11-29-2022 ambulatory JANEE REDDY Facility:H1 Start: 11-28-2022 End: 11-28-[address] [facility] Start: 11-15-2022 [facility] Start: 11-15-2022 End: 11-20-2022 [facility] Start: 11-12-[address] JOSELUIS QUIROZ Facil ity:H1 Start: 11-10-2022 End: 11-10-[address] JEANNE ALLEN . Facility:H1 Start: 10-26-2022 End: 10-26-2022 ambulatory TONY ADHIKARI [facility] Start: 10-24-2022 ambulatory [facility] Start: 10-24-2022 End: 10-24-2022 ambulatory [facility] Start: 10-16-2022 ambulatory JESÚS BOLAÑOS [facility] Start: 10-15-2022 End: 10-15-[address] RAPHAEL NUNEZ Facility:H1 Start: 10-10-2022 Office outpatient visit 25 minutes Cabrera Dupont Work Phone: LZ-Kzuafomcpazkx-PWE [address] Work Phone: Start: 10-10-2022 ambulatory Referral Self Facility: [id number] Start: 09-28-2022 AUDIT Cabrera Dupont Work Phone: [facility] Work Phone: Start: 07-13-2022 Rx Renewal Cabrera Dupont Work Phone: [facility] [place] [address] [place] Work Phone: Start: 07-02-2022 Telephone encounter Mandie sun MD Work Phone: Endocrinology Comment on above: Received Outside [employer] Records (Received Thyroid US report from [facility]. Indexed into chart. ) Start: 06-22-2022 End: 06-23-[address] DOCTOR BUSBY Facility:H1 Start: 04-24-2022 Office outpatient visit 40 minutes Cabrera Dupont Work Phone: [facility] [address] Work Phone: Start: 04-24-[address] Cabrera Duenas acility:[id number] Start: 03-27-2022 AUDIT Cabrera Dupont Work Phone: NT[facility]cse[facility]xdafaen[facility] Work Phone: Start: 01-23-2022 KALPESH Dupont Work Phone: WP-Vxssturqojcsq-[facility]sg[facility] Work Phone: Start: 12-11-2021 Rx Renewal Cabrera Dupont Work Phone: [place]Rvnzqpyxnksbp[facility] Work Phone: Start: 11-08-2021 KALPESH Dupont Work Phone: EA[facility]Zokzzqjamxdyj[facility] Work Phone: Start: 08-21-2021 AUDIT Cabrera Dupont Work Phone: XH-Nmmshqitwcezy-CDE [address] Work Phone: Start: 05-31-2021 AUDIT Cabrera Dupont Work Phone: MX-Gpmiijghsglym-QRB [address] Work Phone: Start: 06-20-2017 End: 06-21-2017 Ambulatory DEFAULT PHYSICIAN Facility:[facility] Procedures Date Procedure Procedure Detail Performing Clinician Start: 01-29-2023 Follow-up visit Follow-up ELICEO PARKER ACKVNG Appendectomy Cabrera Dupont Work Phone: Arthroscopy of knee Cabrera Austin Cresencio Work Phone: Parathyroidectomy Cabrera Geovanna Dacosta oss Work Phone: Vasectomy [facility]rera [facility] Work Phone: Plan of Treatment Date Care Activity Detail Author Start: 10-10-2022 AMY, Provider: Mandie Osborne, Status: Pen, Time: 11:15 AM AMY, Provider: Mandie Osborne, Status: Pen, Time: 11:15 AM [facility] Work Phone: Start: 07-12-2022 Influenza vaccination INFLUENZA (#1) [facility] Start: 04-24-2022 AMY, Provider: Ynes Sahni, Status: Pen, Time: 1:00 PM [facility]: Ynes Sahni, Status: Pen, Time: 1:00 PM [facility] Work Phone: Start: 11-11-2021 ADVANCE DIRECTIVE DISCUSSION ADVANCE DIRECTIVE DISCUSSION [facility] Start: 07-24-2019 Hemoglobin A1c/Hemoglobin.total in Blood HBA1C [facility] Start: 08-24-2017 Hepatitis B screening URINE ALBUMIN:CREATININE RATIO [facility] Start: 08-24-2017 Hepatitis B surface antibody level LDL CHOLESTEROL [facility] Start: 08-14-2017 3 comp foot exam completed DIABETIC FOOT EXAM [facility] Start: 11-22-2016 Hepatitis C antibody, confirmatory test DILATED RETINAL EXAM [facility] Start: 2016 PNEUMOCOCCAL: 65+ (1 - PCV) PNEUMOCOCCAL: 65+ (1 - PCV) [facility] Start: 2001 SHINGRIX VACCINE (1 of 2) SHINGRIX VACCINE (1 of 2) [facility] Start: 1996 COLOGUARD (FIT-DNA) COLOGUARD (FIT-DNA) [facility] Start: 1996 Colonoscopy COLONOSCOPY [facility] Start: 1996 COLORECTAL CANCER SCREENING COLORECTAL CANCER SCREENING [facility] Start: [address] COLONOGRAPHY [facility] Start: 1996 FECAL OCCULT BLOOD FECAL OCCULT BLOOD [facility] Start: 1996 SIGMOIDOSCOPY SIGMOIDOSCOPY [facility] Start: 1970 Urine microalbumin profile DTAP,TDAP,TD (1 - Tdap) [facility] Start: 1969 HEPATITIS C SCREENING HEPATITIS C SCREENING [facility] Start: 1963 Adult depression screening assessment DEPRESSION SCREENING [facility] Start: 02-08-1951 COVID-19 VACCINE (#1) COVID-19 VACCINE (#1) [facility] Start: 1950 ABDOMINAL AORTIC ANEURYSM SCREENING ABDOMINAL AORTIC ANEURYSM SCREENING [facility] Immunizations Immunization Date Immunization Notes Care Provider Kennedy lowe 08-15-2022 Fluzone High-Dose Quadrivalent 0.7 ML Intramuscular Suspension Prefilled Syringe Cabrera Dupont Work Phone: UY-Vloengbbprcwx-R [facility] [place] [address] Work Phone: 09-06-2021 Fluad Quadrivalent 0 .5 ML Intramuscular Prefilled Syringe Cabrera Dupont Work Phone: BP-Iiskdhhudkmmo-G [facility] [address] Work Phone: 01-18-2021 Neva COVID-19 Vac cine 0.5 ML Intramuscular Suspension Cabrera Dupont Work Phone: GW-Oytjgpnjuhfcy-O [facility] [place] [address] Work Phone: 09-08-2020 Fluad Quadrivalent 0 .5 ML Intramuscular Prefilled Syringe Cabrera Dupont Work Phone: HV-Yxtnoyoqmioya-E [facility] [address] Work Phone: 08-24-2020 influenza, seasonal, injectable Cabrera Dupont Work Phone: FP-Diayyzdohkjns-L [facility] [place] [address] Work Phone: 08-24-2019 Seasonal trivalent influenza vaccine, adjuvanted, preservative free Cabrera Dupont Work Phone: QL-Dqazrmzssunui-I [facility] [address] Work Phone: 08-04-2018 influenza, injectabl e, quadrivalent, preservative free Cabrera Dupont Work Phone: JG-Ilqisbyjsqown-Y [facility] [place] [address] Work Phone: 07-19-2018 influenza, high dose seasonal, preservative-free Cabrera Dupont Work Phone: OY-Epydpkyrvxlcu-H [facility] [place] [address] Work Phone: 08-21-2017 influenza, high dose seasonal, preservative-free Cabrera Dupont Work Phone: UO-Xeojpdvihczhw-S [facility] [address] Work Phone: 08-12-2017 pneumococcal polysaccharide vaccine, 23 valent Cabrera Dupont Work Phone: WT-Hdzzjhmvveepi-L [facility] [place] [facility] Work Phone: 08-12-2017 zoster vaccine recombinant [facility]rera Dupont Work Phone: VX-Bykhjdgtbwovs-E [facility] [address] Work Phone: 08-21-2016 influenza, high dose seasonal, preservative-free Cabrera Dupont Work Phone: NJ-Xwdbjfbsfeucs-X [facility] Work Phone: 2015 influenza, seasonal, injectable, preservative free Cabrera Dupont Work Phone: HR-Fohjzvjklcxms-C [facility] [place] [facility] Work Phone: 08-04-2014 influenza, seasonal, injectable Cabrera Austin Cresencio Work Phone: GB-Nveusoqpsuldz-E [facility] [place] [facility] Work Phone: 08-04-2014 pneumococcal polysaccharide vaccine, 23 valent Cabrera Austin Cresencio Work Phone: ZI-Ylbsmhjqnarub-R [facility] [address] Work Phone: 08-04-2014 zoster vaccine, live Cabrera Dupont Work Phone: IQ-Pgzphgpkygejb-J [facility] [address] Work Phone: Payers Date Payer Category Payer Unknown 1958 Self-pay [id number] 1958 Unknown [id number] 1950 Unknown [id number] 2.16. [id number] 1950 Unknown [id number] 2.16. [id number] 1950 Unknown [id number] 2.16.84 [id number] 1950 Unknown [id number] 2.16.84 [id number] 1950 Unknown [id number] 2.16.84 [id number] 1950 Unknown [id number] 2.16.84 [id number] 1950 Unknown [id number] 2.16.84 [id number] 1950 Unknown [id number] 2.16.84 [id number] 1950 Unknown [id number] 2.16.84 [id number] Unknown [id number] 2.16.84 [id number] Social History Date Type Detail Facility Former smoker Former smoker [facility] [place] [facility] Work Phone: Start: 06-30-2013 Tobacco smoking status NHIS Ex-smoker [facility] End: 12-12-1992 History of tobacco use Current smoker [facility] End: 12-12-1992 History of tobacco use Cigarette Smoker [facility] Start: 06-30-2013 Tobacco use and exposure Smokeless tobacco non-user [facility] Start: 01-21-2019 Alcohol intake Current non-dr hand presser of alcohol (finding) [facility] Start: 1950 Sex Assigned At Not on file C [facility] Sex Assigned At Sex Assigned At Bir th [employer] Other Medical Equipment Procedure Code Equipment Code Equipment Original Text Equipment Identifier Dates Start: 09-15-2018 Comment on above: Use as instructed USE WITH INSULIN PEN S three times a day Clinical Notes 04-24-2022 to 10-29-2023 Note Date & Type Note Facility 10-29-2023 Evaluation note Encounter Date Diagnosis Assessment Notes Oct, Type 2 diabetes mellitus with hyperglycemia (ICD-10 - E11.65) Educated patient on the importance of meal content and meal timing. Patient is to have a snack at bedtime to avoid Hypoglycemic episodes. Increase daily exercise routine and watch diet. Continue with above medication and we will continue to monitor every 3 months. Oct, Mixed hyperlipidemia (ICD-10 - E78.2) Patient to continue to watch diet and increase exercise routine. Remain active as tolerated and we will continue to monitor with routine blood work. Patient is to continue with above medication as directed. Oct, Screening PSA (prostate specific antigen) (ICD-10 - Z12.5) Oct, Anxiety (ICD-10 - F41.9) Pt improved w present med increase in dose. [employer] Other 11-03-2023 Evaluation note* Encounter Date Diagnosis Assessment Notes Treatment Notes Treatment Clinical Notes Sep, Anxiety (ICD-10 - F41.9) [employer] Other 10-31-2023 Evaluation note* Encounter Date Diagnosis Assessment Notes Treatment Notes Treatment Clinical Notes Aug, Anxiety (ICD-10 - F41.9) [employer] Other 10-09-2023 Evaluation note* Encounter Date Diagnosis Assessment Notes Treatment Notes Treatment Clinical Notes Aug, Anxiety (ICD-10 - F41.9) Has been on the wellbutren at the same dose for 30 years. Notes increased anxiety. Denies insomnia. Denies headaches. Agrees to decrease to 1 tablet daily and add lexapro. Explained that med is often used more for depression than anxiety. Possibly SNRIs are actually increasing his anxiety. Will monitor in 3-4 weeks. 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 [employer] Other 09-19-2023 NotePatient here for 2 mo follow up persistent afib and systolic heart failure. Doing great. Denies chest pain, SOB, palpitations, and bleeding on Eliquis. Review of Systems All other systems reviewed and are negative.[facility] 07-30-2023 NoteUT Electrophysiology Consult Note [facility] Reason for Consultation: Atrial fibrillation, s/p PVI/CTI 04/2023 HPI: Patient here for 3 month follow-up s/p A-fib ablation patient had A-fib ablation s/p PVI, circumferential lesion on all 4 veins as well as CTI ablation with confirmed block 04/2023 He was also noted to have mildly elevated LA filling pressures with tachycardia during EP study of ablation. Patient has been doing well with no complaints of palpitations, chest pain, shortness of breath, MANNING, LE edema. Has been increasing his activity and has been tolerating it well. Continues to tolerate Eliquis with no concerns for bleeding, we discussed risk of bleeding with Eliquis and fear of falls and at that warrant an ER visit for CT scan. We discussed trialing off antiarrhythmics now that we are 3 months post ablation and patient opted to trial off amiodarone and see how he does. Discussed with patient and if he ever has symptoms of palpitations, racing heart, MANNING, LE edema could be indicative of him going back in A-fib and return to clinic sooner than 6 months EC07/30/23 SR 06/05/2023 SR 1st degree Av block 01/29/[address] Rosenberg 04/2023: HPI: Patient is wanting to discuss about ablation as he s/p conversion to sinus rhythm with Amio. Echocardiogram showed improved EF which was done 02/28/2023 shows normal EF 55 to 60%, moderate dilatation of left atrium. Patient feels well denies any chest pain, shortness of breath, LE edema, EKG 01/29/23 SR. Prior HPI: Gadiel Liang is a 72 y.o. 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 Gadiel is here regarding feeling lightheaded with palpitations on 10/15 and he went to the [facility] emergency department was found to be in A. fib. They did not start him on anything for rate control, rhythm control, or blood thinners. He has not had a cardioversion in the past. And has not received treatment for A. fib in the past. At this time he denies chest pain palpitations lightheadedness dizziness and presyncope. His is on the phone on speaker phone during exam. PMH: Past Medical History: Diagnosis Date Atrial fibrillation (CMS/HCC) AV block, 1st degree CHF (congestive heart failure) (CMS/HCC) Diabetes mellitus (CMS/HCC) GERD (gastroesophageal reflux disease) Hypothyroidism Memory changes PFO (patent foramen ovale) 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CMS/HCC) Stroke (CMS/HCC) TIA (transient ischemic attack) PSH: Past Surgical History: Procedure Laterality Date CARDIAC CATHETERIZATION CARPAL TUNNEL RELEASE CATARACT EXTRACTION COLONOSCOPY PARATHYROIDECTOMY SHOULDER SURGERY VASECTOMY SH: Social Determinants of Health Tobacco Use: Medium Risk (05/02/2023) Patient History Smoking Tobacco Use: Former Smokeless Tobacco Use: Never Passive Exposure: Not on file Alcohol Use: Not on file Financial Resource Strain: Low Risk (05/02/2023) Overall Financial Resource Strain (CARDIA) Difficulty of Paying Living Expenses: Not hard at all Food Insecurity: Unknown (05/02/2023) Hunger Vital Sign Worried About Running Out of Food in the Last Year: Never true Ran Out of Food in the Last Year: Not on file Transportation Needs: Unknown (05/02/2023) PRAPARE - Transportation Lack of Transportation (Medical): No Lack of Transportation (Non-Medical): Not on file Physical Activity: Not on file Stress: Not on file Social Connections: Not on file Intimate Partner Violence: Unknown (05/02/2023) Humiliation, Afraid, Rape, and Kick questionnaire Fear of Current or Ex-Partner: No Emotionally Abused: Not on file Physically Abused: Not on file Sexually Abused: Not on file Depression: Not on file Housing Stability: Unknown (05/02/2023) Housing Stability Vital Sign Unable to Pay for Housing in the Last Year: Not on file Number of Places Lived in the Last Year: Not on file Unstable Housing in the Last Year: No Allergies: Allergies Allergen Reactions No Known Allergies Weight: No results found for: PTWEIGHT Meds: Current Outpatient Medications on File Prior to Visit Medication Sig Dispense Refill amiodarone (Pacerone) 200 mg tablet Take 1 tablet (200 mg) by mouth in the morning. 90 tablet 3 apixaban (Eliquis) 5 mg tablet Take 1 tablet (5 mg) by mouth in the morning and at bedtime. 60 tablet 11 atorvastatin (Lipitor) 20 mg tablet Take 20 mg by mouth in the morning. buPROPion SR (Wellbutrin SR) 150 mg 12 hr tablet Take 1 tablet twice a day by oral route. cabergoline (Dostinex) 0.5 mg tablet Take 1 tablet every other day by oral route. carvedilol (Coreg) 6.25 mg tablet Take 1 tablet (6.25 mg) by mouth in the morning and at bedtime for 60 doses. 180 tablet 3 dapagliflozin (Farx (more content not included)...[facility]07-26-2023 NoteUT Electrophysiology Consult Note [facility] Reason for Consultation: Atrial fibrillation, s/p PVI/CTI 04/2023 HPI: Patient here for 1 month follow-up s/p A-fib ablation patient had A-fib ablation s/p PVI, circumferential lesion on all 4 veins as well as CTI ablation with confirmed block. He was also noted to have mildly elevated LA filling pressures with tachycardia. he completed all GI medications with no concern. Groin site has healed well with no concern for hematoma or ecchymosis. EC06/05/2023 SR 1st degree Av block 01/29/[address] Rosenberg 04/2023: HPI: Patient is wanting to discuss about ablation as he s/p conversion to sinus rhythm with Amio. Echocardiogram showed improved EF which was done 02/28/2023 shows normal EF 55 to 60%, moderate dilatation of left atrium. Patient feels well denies any chest pain, shortness of breath, LE edema, EKG 01/29/23 SR. Prior HPI: Gadiel Liang is a 72 y.o. 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 Gadiel is here regarding feeling lightheaded with palpitations on 10/15 and he went to the [facility] emergency department was found to be in A. fib. They did not start him on anything for rate control, rhythm control, or blood thinners. He has not had a cardioversion in the past. And has not received treatment for A. fib in the past. At this time he denies chest pain palpitations lightheadedness dizziness and presyncope. His is on the phone on speaker phone during exam. PMH: Past Medical History: Diagnosis Date Atrial fibrillation (CMS/HCC) AV block, 1st degree CHF (congestive heart failure) (CMS/HCC) Diabetes mellitus (CMS/HCC) GERD (gastroesophageal reflux disease) Hypothyroidism Memory changes PFO (patent foramen ovale) 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CMS/HCC) Stroke (CMS/HCC) TIA (transient ischemic attack) PSH: Past Surgical History: Procedure Laterality Date CARDIAC CATHETERIZATION CARPAL TUNNEL RELEASE CATARACT EXTRACTION COLONOSCOPY PARATHYROIDECTOMY SHOULDER SURGERY VASECTOMY SH: Social Determinants of Health Tobacco Use: Medium Risk (05/02/2023) Patient History Smoking Tobacco Use: Former Smokeless Tobacco Use: Never Passive Exposure: Not on file Alcohol Use: Not on file Financial Resource Strain: Low Risk (05/02/2023) Overall Financial Resource Strain (CARDIA) Difficulty of Paying Living Expenses: Not hard at all Food Insecurity: Unknown (05/02/2023) Hunger Vital Sign Worried About Running Out of Food in the Last Year: Never true Ran Out of Food in the Last Year: Not on file Transportation Needs: Unknown (05/02/2023) PRAPARE - Transportation Lack of Transportation (Medical): No Lack of Transportation (Non-Medical): Not on file Physical Activity: Not on file Stress: Not on file Social Connections: Not on file Intimate Partner Violence: Unknown (05/02/2023) Humiliation, Afraid, Rape, and Kick questionnaire Fear of Current or Ex-Partner: No Emotionally Abused: Not on file Physically Abused: Not on file Sexually Abused: Not on file Depression: Not on file Housing Stability: Unknown (05/02/2023) Housing Stability Vital Sign Unable to Pay for Housing in the Last Year: Not on file Number of Places Lived in the Last Year: Not on file Unstable Housing in the Last Year: No Allergies: Allergies Allergen Reactions Lisinopril Overwhelming fatigue still takes daily No Known Allergies Weight: No results found for: PTWEIGHT Meds: Current Outpatient Medications on File Prior to Visit Medication Sig Dispense Refill amiodarone (Pacerone) 200 mg tablet Take 1 tablet (200 mg) by mouth in the morning. 90 tablet 3 apixaban (Eliquis) 5 mg tablet Take 1 tablet (5 mg) by mouth in the morning and at bedtime. 60 tablet 11 atorvastatin (Lipitor) 40 mg tablet Take 1 tablet (40 mg) by mouth at bedtime for 30 doses. 90 tablet 3 buPROPion SR (Wellbutrin SR) 150 mg 12 hr tablet Take 1 tablet twice a day by oral route. cabergoline (Dostinex) 0.5 mg tablet Take 1 tablet every other day by oral route. carvedilol (Coreg) 6.25 mg tablet Take 1 tablet (6.25 mg) by mouth in the morning and at bedtime for 60 doses. 180 tablet 3 dapagliflozin (Farxiga) 10 mg Take 1 tablet (10 mg) by mouth in the morning. 90 tablet 3 esomeprazole (NexIUM) [address] capsule Take 40 mg by mouth before breakfast. Do not open capsule. famotidine (Pepcid) 20 mg tablet Take 1 tablet (20 mg) by mouth in the morning and at bedtime. 60 tablet 0 furosemide (Lasix) 40 mg tablet Take 1 tablet by mouth daily for fluid retention as directed (Patient taking differently: if needed each day. Take 1 tablet by mouth daily for fluid retention as directed) 90 tablet 3 Lantus Solostar U-100 Insul (more content not included)...[facility]07-26-2023 NotePatient here for follow up ablation. Doing very well. Denies chest pain, SOB, palpitations, and bleeding on Eliquis. Review of Systems All other systems reviewed and are negative.[facility] 05-03-2023 NoteProblem: Safety - Adult Goal: Free from fall injury Outcome: Progressing Problem: Chronic Conditions and Co-morbidities Goal: Patient's chronic conditions and co-morbidity symptoms are monitored and maintained or improved Outcome: Progressing Problem: Cardiovascular - Adult Goal: Maintains optimal cardiac output and hemodynamic stability Outcome: Progressing The patient is Moderately Stable - Low risk of patient condition declining or worsening The patient's goals for the shift include comfort The clinical goals for the shift include comfortUnDayton [facility]06-[facility]-2023 NoteATRIAL FIBRILLATION ABLATION PROCEDURE NOTE DATE OF PROCEDURE: 05/02/2023 PERFORMING PHYSICIAN: Dr. Eliceo Rosenberg AMMUNITION AND EXPLOSIVES HANDLER: Dr. Louisa Bowers CONSENT: Patient NAME OF THE PROCEDURE: Pulmonary Vein Isolation and Comprehensive EP study. INDICATIONS FOR PROCEDURE: 1. Persistent atrial fibrillation. FLUROSCOPY: 2.1minutes/11mGy. EBL: 25cc SPECIMEN REMOVED: None PROCEDURES PERFORMED: 1. Sonosite guided venous access as noted below and images stored in PACS. 2. Comprehensive EP study and catheter ablation for persistent atrial fibrillation through the pulmonary vein isolation technique. This includes right atrial recording and pacing, His bundle recording and right ventricular recording and pacing. 3. Intracardiac EP 3D mapping. 4. Intracardiac echocardiogram 5. Left atrial and coronary sinus recording and pacing to assess ablation results. 6. Left heart pressure measurements and LV pacing and recording. 7. Induction of arrhythmia and testing of ablation results using intravenous adenosine infusion. 8. Fluroscopy. INDICATION: 72 y.o. 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 He was diagnosed at [facility] emergency department with Chris andrade. He was then seen in clinic and opted for ablation over medications due to side effects. PROCEDURE NOTE: On the day of presentation, he was noted to be in sinus rhythm following which the MOMO was deferred. Risks, benefits and alternatives of the procedure were discussed with the patient and family who agreed to proceed. Please refer to my consult note for details of the discussion and of indications. The patient was prepped and draped following which four venous access was procured on right side as noted below. Ultrasound was used to determine the course and patency of the femoral veins on both sides and they were noted to be patent and the image stored in PACS. After infiltration with 1% lidocaine, 4 venous sheaths were placed in the right as noted below and a radial arterial line was placed by Anesthesia team. RFV: 8Fx3, [employer] ThermoCool SF Bi-Directional over SL1/ Vizigo, SL1: Pentaray, CS Catheter (EZ Steer). 9F: ICE catheter, Following venous access, heparin bolus was given followed by continuous intravenous drip to target ACT around 350. An intracardiac ultrasound catheter was inserted into the right atrium to examine the right atrial anatomy, atrial septum, pulmonary vein anatomy and to monitor for pericardial effusion and guide transseptal access. The LA and RA was only moderately dilated. At baseline, there was no pericardial effusion and no LALO clot but noted a very prominent Coumadin ridge. Esophagus was mapped using the Litigain[employer] 3D mapping software and noted to be towards the middle of LA. Transeptal access was procured with ICE guidance using a SL-1 sheath and Silviano needle. LV pacing was performed and no VA conduction was seen. Following this, pentaray catheter was advanced and the multipolar mapping performed of the LA creating a geometry as well as bipolar voltage assessment was made. The LA was noted to be healthy. After FAM geometry was performed, a 2nd transseptal was performed with an SL1 sheath using a Silviano needle. Following transseptal, the SL1 sheath was removed and Vizigo sheath was advanced over which the ablation catheter ST-SF thermocol ablation catheter was advanced. Ablation was then performed. A temperature probe was advanced to the middle of the LA to monitor the temperature. Ablation was performed using 40 barros for 10-12s in the anterior LA and 5-8seconds in the posterior wall and roof area. Since the veins were seperated I decided to perform individual circumferential ablation. After completion of the left sided ablation, no signals were noted in the LSPV or LIPV and entrance and exit block was noted. After this, I proceeded to perform ablation of the right-sided vein. Following right circumferential ablation, the veins were isolated. I ensured that on the anterior aspect of right veins and in soto area, phrenic capture was ruled out before any ablation was performed. A temperature elevation was noted from a baseline of 35.2 and remained steady. After this, perivenous pacing was performed around each individual vein, ensuring there was isolation. Adenosine was given a 12 mg dose and AV block and hypotension was noted. No reconnection was seen. Burst pacing at 300ms induced non sustained atrial flutter. I proceeded to perform CTI ablation. Using ICE, the His and IVC junctions were marked with 3D CARTO mapping software. ICE revealed a small subeustachian pouch. Vizigo sheath was dana to the right side. Ablation was performed on the CTI line starting at the tricuspid valve aspect. 40W was utilized and I extended the ablation from the TV to the IVC aspect. Foll (more content not included)...[facility]06-22-2023 Note Patient: Gadiel Liang Procedure Summary Date: 05/02/23 Room / Location: [facility] AIR INTERCEPT [facility]OLL[facility] 1 / [facility]ASCULAR [facility] (Cath) Anesthesia Start: 1357 Anesthesia Stop: 1710 Procedure: Ablation atrial fibrillation Diagnosis: Persistent atrial fibrillation (CMS/HCC) (Persistent atrial fibrillation (CMS/HCC) [I48.19]) Providers: Eliceo Rosenberg MD Responsible Provider: Rony Pretty MD Anesthesia Type: general ASA Status: 4 Anesthesia Type: general Vitals Value Taken Time BP 164/68 05/02/231709 Temp 36.4 ???C (97.5 ???F) 05/02/231709 Pulse 58 05/02/231709 Resp 14 05/02/231709 SpO2 99 % 05/02/231709 Anesthesia Post Evaluation Patient location during evaluation: PACU Patient participation: complete - patient participated Level of consciousness: awake and alert Pain management: adequate Multimodal analgesia pain management approach Airway patency: patent Cardiovascular status: acceptable Respiratory status: acceptable and room air Hydration status: acceptable Patient is hemodynamically stable and is able to be discharged from PACU per anesthesia protocol. No notable events documented.[facility]06-22-2023 Note Patient: Gadiel Liang Procedure Summary Date: 05/02/23 Room / Location: [facility] AIR INTERCEPT CONTROLL[facility] 1 / [facility] VASCULAR LAB (Cath) Anesthesia Start: 1357 Anesthesia Stop: Procedure: Ablation atrial fibrillation Diagnosis: Persistent atrial fibrillation (CMS/HCC) (Persistent atrial fibrillation (CMS/HCC) [I48.19]) Providers: Eliceo Rosenberg MD Responsible Provider: Rony Pretty MD Anesthesia Type: general ASA Status: 4 Anesthesia Post Transport Note Transport to: PACU O2 Route: room air Patient Monitor: transport monitor Transport monitor type: Art Line Transport: uneventful Patient condition is: stable Comments: ECG, SuF2FhfcwblpgaDayton [facility]06-22-2023 NoteArterial Line: Date/Time: 05/02/2023 1:55 PM An arterial line was placed Procedure performed using surface landmarks.in the pre-op for the following indication(s): continuous blood pressure monitoring and blood sampling needed. A 22 G (size), 1 and 3/4 inch (length), Arrow (type) catheter was placed, Seldinger technique used , into the Left radial artery, secured by tape, Tegaderm and Biodisc/Biopatch. Events: patient tolerated procedure well with no complications. Medications Administered Lidocaine (XYLOCAINE) 1 % SubQ, 2 mL Staffing Performed: resident/CHIEF ENVIRONMENTAL COMMITMENT OFFICER/CAA Anesthesiologist: Rony Pretty MD Resident/CHIEF ENVIRONMENTAL COMMITMENT OFFICER: Wallace Atkinson MDUnDayton Children's Hospital06-22-2023 Note Airway Date/Time: 05/02/2023 2:19 PM Urgency: elective Airway not difficult General Information and Staff Patient location during procedure: OR Anesthesiologist: Rony Pretty MD Resident/CHIEF ENVIRONMENTAL COMMITMENT OFFICER/CAA: Dean Madison DO Performed: resident/CHIEF ENVIRONMENTAL COMMITMENT OFFICER/SANTOS Indications and Patient Condition Indications for airway management: anesthesia Spontaneous Ventilation: absent Sedation level: deep Preoxygenated: yes Patient position: sniffing Mask difficulty assessment: 1 - vent by mask Final Airway Details Final airway type: endotracheal airway Successful airway: ETT Cuffed: yes Successful intubation technique: video laryngoscopy Facilitating devices/methods: intubating stylet Endotracheal tube insertion site: oral Blade: Crooks Blade size: #3 ETT size (mm): 7.5 Cormack-Lehane Classification: grade I - full view of glottis Placement verified by: chest auscultation and capnometry Measured from: lips ETT to lips (cm): 22 Number of attempts at approach: 1 Number of other approaches attempted: 0[facility] 05-02-2023 NotePatient: Gadiel Liang Procedure Information Date/Time: 05/02/23 1230 Procedure: Ablation atrial fibrillation Location: [facility] AIR INTERCEPT CONTROLLER 1 EP / [facility] (Cath) Providers: Eliceo Rosenberg MD Relevant Problems Cardio (+) Acute on chronic systolic congestive heart failure (CMS/HCC) (+) Atrial flutter (CMS/HCC) (+) Paroxysmal atrial fibrillation (CMS/HCC) (+) Persistent atrial fibrillation (CMS/HCC) Endo (+) 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+) Diabetes mellitus type II, non insulin dependent (CMS/HCC) Neuro/Psych (+) CVA (cerebral vascular accident) (CMS/HCC) Clinical information reviewed: Tobacco Allergies Meds Problems Med Hx Surg Hx Fam Hx Soc Hx Physical Exam Airway Mallampati: I TM distance: >3 FB Neck ROM: full Cardiovascular Rhythm: regular Rate: normal Dental (+) upper dentures, lower dentures Pulmonary Abdominal - normal exam Other findings: Quit smoking 1991; 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 Converted to SR on amiodarone; 11/19/2022 showed diffuse noncritical stenosis - no intervention; 02/28/2023 Echo showed EF 55-60% in sinus rhythm (CHF much improved per pt.'s ); patient is insulin dependent diabetic (takes Lantus) with poor control - DOS FSBS is 198. Bilateral hearing aids; had cataract surgery recently per . Anesthesia Plan ASA 4 general The patient is not a current smoker. intravenous induction Anesthetic plan and risks discussed with patient and spouse. Use of blood products discussed with patient and spouse who. Plan discussed with resident. Additional [facility] Note [place] Electrophysiology Consult Note [facility] Date of Telehealth Visit: 04/30/23 The patient was notified that using 3rd republican telecommunication application (e.g., [employer]) is not HIPPA compliant and may carry some privacy risks. Yes The visit was conducted [id number] with the use of audio and video technology between patient and provider for a virtual visit. Verbal consent to provide and bill this service was obtained on 04/30/23 . No signature was obtained due to the COVID-19 pandemic. Patient Location: Patient Home I spent 16 minutes of total time on the day of the visit. This time was spent preparing for the visit, obtaining and reviewing any outside history/data, taking a history, performing an exam/evaluation, counseling and educating patient/family about the diagnosis and plan, performing medical decision making, referring to and communicating with other health care referrals, independently interpreting results and documenting in the EMR, and coordinating care. Please see the additional documentation in this note for specific details. Reason for Consultation: Atrial fibrillation HPI: Patient is wanting to discuss about ablation as he s/p conversion to sinus rhythm with Amio. Echocardiogram showed improved EF which was done 02/28/2023 shows normal EF 55 to 60%, moderate dilatation of left atrium. Patient feels well denies any chest pain, shortness of breath, LE edema, EKG 01/29/23 SR. Prior HPI: Gadiel Liang is a 72 y.o. 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 Gadiel is here regarding feeling lightheaded with palpitations on 10/15 and he went to the [facility] emergency department was found to be in A. fib. They did not start him on anything for rate control, rhythm control, or blood thinners. He has not had a cardioversion in the past. And has not received treatment for A. fib in the past. At this time he denies chest pain palpitations lightheadedness dizziness and presyncope. His is on the phone on speaker phone during exam. PMH: Past Medical History: Diagnosis Date Atrial fibrillation (CMS/HCC) AV block, 1st degree CHF (congestive heart failure) (CMS/HCC) Diabetes mellitus (CMS/HCC) GERD (gastroesophageal reflux disease) Hypothyroidism Memory changes PFO (patent foramen ovale) 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CMS/HCC) Stroke (CMS/HCC) TIA (transient ischemic attack) PSH: Past Surgical History: Procedure Laterality Date CARDIAC CATHETERIZATION CARPAL TUNNEL RELEASE CATARACT EXTRACTION COLONOSCOPY PARATHYROIDECTOMY SHOULDER SURGERY VASECTOMY SH: Social Determinants of Health Tobacco Use: Medium Risk Smoking Tobacco Use: Former Smokeless Tobacco Use: Never Passive Exposure: Not on file Alcohol Use: Not on file Financial Resource Strain: Not on file Food Insecurity: Not on file Transportation Needs: Not on file Physical Activity: Not on file Stress: Not on file Social Connections: Not on file Intimate Partner Violence: Not on file Depression: Not on file Housing Stability: Not on file Allergies: Allergies Allergen Reactions Lisinopril Overwhelming fatigue still takes daily Weight: No results found for: PTWEIGHT Meds: Current Outpatient Medications on File Prior to Visit Medication Sig Dispense Refill amiodarone (Pacerone) 200 mg tablet Take 1 tablet (200 mg) by mouth with breakfast and with evening meal for 198 doses. Do not start before November 27, 2022. 60 tablet 3 amiodarone (Pacerone) 200 mg tablet Take 1 tablet (200 mg) by mouth in the morning. 90 tablet 3 apixaban (Eliquis) 5 mg tablet Take 1 tablet (5 mg) by mouth in the morning and at bedtime. 60 tablet 11 atorvastatin (Lipitor) 40 mg tablet Take 1 tablet (40 mg) by mouth at bedtime for 30 doses. 90 tablet 3 atorvastatin (Lipitor) 40 mg tablet Take 40 mg by mouth in the morning. buPROPion SR (Wellbutrin SR) 150 mg 12 hr tablet Take 1 tablet twice a day by oral route. cabergoline (Dostinex) 0.5 mg tablet Take 1 tablet every other day by oral route. carvedilol (Coreg) 6.25 mg tablet Take 1 tablet (6.25 mg) by mouth in the morning and at bedtime for 60 doses. 180 tablet 3 carvedilol (Coreg) 6.25 mg tablet Take by mouth with breakfast and with evening meal. dapagliflozin (Farxiga) 10 mg Take 1 tablet (10 mg) by mouth in the morning. 90 tablet 3 dapagliflozin (Farxiga) 10 mg Take by mouth. donepezil (Aricept) 5 mg tablet TAKE 1 TABLET BY MOUTH EVERY DAY AT BEDTIME FOR 30 DAYS esomeprazole (NexIUM) [address] capsule Take 40 mg by mouth before breakfast. Do not open capsule. furosemide (Lasix) 40 mg tablet Take 1 tablet by mouth daily for fluid retention as directed (Patient taking differently: if needed each day. Take 1 tablet by mouth daily for fluid retention as directed) 90 tablet 3 Lantus Solost (more content not included)...[facility] 04-26-2023 NoteProcedure: Multidetector CT thoracic Angiogram performed with IV contrast without complication, including 3 -D Maximum intensity projection reconstructions constructed under concurrent physician supervision on a independent workstation to optimize sensitivity for pulmonary emboli.. Automated exposure control was utilized. CTA CHEST W AND/OR WO IV CONTRAST 05/08/2023 3:34 PM History: pre ablation Findings: The lungs demonstrate no acute changes. The mediastinum and allan show no acute changes. Thoracic aorta appropriate caliber No thrombi within left atrium or left atrial appendage Left atrial appendage ostial 1.65 x 1.81 cm Left superior pulmonary vein 15 mm. Left inferior pulmonary vein 10 mm Right inferior pulmonary vein 15 mm and right superior pulmonary vein 12 mm 3D reformatted images confirm the source data findings. IMPRESSION: Impression: *Measurements performed for preprocedure planning for atrial fibrillation *No acute pulmonary abnormality. All CT scans at this facility use dose modulation, iterative reconstruction, and/or weight based dosing when appropriate to reduce radiation dose to as low as reasonably achievable. Electronically signed: Eulalio Georges.[facility] HospitalComment on above:Order Comment: Please schedule prior to April [id number] NotePatient here for follow up echo done 02/28/2023. Review of Systems Constitutional: Positive for malaise/fatigue. Cardiovascular: Positive for dyspnea on exertion. Musculoskeletal: Positive for muscle weakness. Neurological: Positive for excessive daytime sleepiness, loss of balance and weakness. All other systems reviewed and are negative.[facility] 03-20-2023 NoteUT Electrophysiology Consult Note [facility] Reason for Consultation: Atrial fibrillation HPI: Patient is here for follow-up s/p initiation of amiodarone with conversion to sinus rhythm. he had echocardiogram to reevaluate ejection fraction as it was reduced when he was in A-fib. echocardiogram done 02/28/2023 shows normal EF 55 to 60%, moderate dilatation of left atrium. Discussed with patient per previous documentation since he is improved EF and normal rhythm we should aim for ablation. Patient feels well denies any chest pain, shortness of breath, LE edema, 01/29/23 HPI: Pt feels better. DCCV was attempted without Amio and he did not convert. So Amio was started and he converted to SR. He feels better and more energy. EKG 01/29/23 SR. Prior HPI: Gadiel Liang is a 72 y.o. 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 Gadiel is here regarding feeling lightheaded with palpitations on 10/15 and he went to the [facility] emergency department was found to be in A. fib. They did not start him on anything for rate control, rhythm control, or blood thinners. He has not had a cardioversion in the past. And has not received treatment for A. fib in the past. At this time he denies chest pain palpitations lightheadedness dizziness and presyncope. His is on the phone on speaker phone during exam. PMH: Past Medical History: Diagnosis Date Atrial fibrillation ([facility]) AV block, 1st degree CHF (congestive heart failure) ([facility]) Stroke ([facility]) PSH: Past Surgical History: Procedure Laterality Date CARPAL TUNNEL RELEASE SHOULDER SURGERY VASECTOMY SH: Social Determinants of Health Tobacco Use: Medium Risk Smoking Tobacco Use: Former Smokeless Tobacco Use: Never Passive Exposure: Not on file Alcohol Use: Not on file Financial Resource Strain: Not on file Food Insecurity: Not on file Transportation Needs: Not on file Physical Activity: Not on file Stress: Not on file Social Connections: Not on file Intimate Partner Violence: Not on file Depression: Not on file Housing Stability: Not on file Allergies: Allergies Allergen Reactions Lisinopril Overwhelming fatigue Weight: No results found for: PTWEIGHT Meds: Current Outpatient Medications on File Prior to Visit Medication Sig Dispense Refill amiodarone (Pacerone) 200 mg tablet Take 1 tablet (200 mg) by mouth in the morning. 90 tablet 3 apixaban (Eliquis) 5 mg tablet Take 1 tablet (5 mg) by mouth in the morning and at bedtime. 60 tablet 11 atorvastatin (Lipitor) 40 mg tablet Take 40 mg by mouth in the morning. buPROPion SR (Wellbutrin SR) 150 mg 12 hr tablet Take 1 tablet twice a day by oral route. cabergoline (Dostinex) 0.5 mg tablet Take 1 tablet every other day by oral route. carvedilol (Coreg) 6.25 mg tablet Take by mouth with breakfast and with evening meal. celecoxib (CeleBREX) 200 mg capsule 1 capsule in the morning. dapagliflozin (Farxiga) 10 mg Take by mouth. donepezil (Aricept) 5 mg tablet TAKE 1 TABLET BY MOUTH EVERY DAY AT BEDTIME FOR 30 DAYS esomeprazole (NexIUM) [address] capsule Take 40 mg by mouth before breakfast. Do not open capsule. furosemide (Lasix) 40 mg tablet Take 1 tablet by mouth daily for fluid retention as directed (Patient taking differently: if needed each day. Take 1 tablet by mouth daily for fluid retention as directed) 90 tablet 3 Lantus Solostar U-100 Insulin 100 unit/mL (3 mL) pen Inject 30 Units under the skin in the morning. levothyroxine (Synthroid, Levoxyl) 75 mcg tablet 37.5 mcg in the morning. lisinopril 5 mg tablet Take 1 tablet (5 mg) by mouth in the morning. 30 tablet 11 metFORMIN (Glucophage) 500 mg tablet Take 500 mg by mouth 1 (one) time each day. oxybutynin (Ditropan) 5 mg tablet every 12 (twelve) hours. sildenafil (Viagra) 25 mg tablet Take 25 mg by mouth if needed each day. spironolactone (Aldactone) 25 mg tablet Take 0.5 tablets (12.5 mg) by mouth in the evening. Do not start before November 02, 2022. 15 tablet 6 testosterone (Androgel) 50 mg/5 gram (1 %) gel Place 50 mg on the skin in the morning. As directed [DISCONTINUED] aspirin 81 mg EC tablet in the morning. amiodarone (Pacerone) 200 mg tablet Take 1 tablet (200 mg) by mouth with breakfast and with evening meal for 198 doses. Do not start before November 27, 2022. 60 tablet 3 atorvastatin (Lipitor) 40 mg tablet Take 1 tablet (40 mg) by mouth at bedtime for 30 doses. 90 tablet 3 carvedilol (Coreg) 6.25 mg tablet Take 1 tablet (6.25 mg) by mouth in the morning and at bedtime for 60 doses. 180 tablet 3 dapagliflozin (Farxiga) 10 mg Take 1 tablet (10 mg) by mouth in the morning. 90 tablet 3 [DISCONTINUED] Accu-Chek Alicia Plus test strp strip [DISCONTINUED (more content not included)...[facility] 01-29-2023 NoteUT Electrophysiology Consult Note [facility] Reason for Consultation: Atrial fibrillation HPI: Pt feels better. DCCV was attempted without Amio and he did not convert. So Amio was started and he converted to SR. He feels better and more energy. EKG 01/29/23 SR. Prior HPI: Gadiel Liang is a 72 y.o. 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 Gadiel is here regarding feeling lightheaded with palpitations on 10/15 and he went to the [facility] emergency department was found to be in A. fib. They did not start him on anything for rate control, rhythm control, or blood thinners. He has not had a cardioversion in the past. And has not received treatment for A. fib in the past. At this time he denies chest pain palpitations lightheadedness dizziness and presyncope. His is on the phone on speaker phone during exam. PMH: Past Medical History: Diagnosis Date Atrial fibrillation (CMS/HCC) AV block, 1st degree CHF (congestive heart failure) (CMS/HCC) Stroke (CMS/HCC) PSH: Past Surgical History: Procedure Laterality Date CARPAL TUNNEL RELEASE SHOULDER SURGERY VASECTOMY SH: Social Determinants of Health Tobacco Use: Medium Risk Smoking Tobacco Use: Former Smokeless Tobacco Use: Never Passive Exposure: Not on file Alcohol Use: Not on file Financial Resource Strain: Not on file Food Insecurity: Not on file Transportation Needs: Not on file Physical Activity: Not on file Stress: Not on file Social Connections: Not on file Intimate Partner Violence: Not on file Depression: Not on file Housing Stability: Not on file Allergies: Allergies Allergen Reactions Lisinopril Overwhelming fatigue Weight: No results found for: PTWEIGHT Meds: Current Outpatient Medications on File Prior to Visit Medication Sig Dispense Refill Accu-Chek Alicia Plus test strp strip amiodarone (Pacerone) 200 mg tablet Take 1 tablet (200 mg) by mouth with breakfast and with evening meal for 198 doses. Do not start before November 27, 2022. 60 tablet 3 apixaban (Eliquis) 5 mg tablet Take 1 tablet (5 mg) by mouth in the morning and at bedtime. 60 tablet 11 atorvastatin (Lipitor) 40 mg tablet Take 40 mg by mouth in the morning. buPROPion SR (Wellbutrin SR) 150 mg 12 hr tablet Take 1 tablet twice a day by oral route. cabergoline (Dostinex) 0.5 mg tablet Take 1 tablet every other day by oral route. carvedilol (Coreg) 6.25 mg tablet Take by mouth with breakfast and with evening meal. dapagliflozin (Farxiga) 10 mg Take by mouth. esomeprazole (NexIUM) [address] capsule Take 40 mg by mouth before breakfast. Do not open capsule. lancets [facility] See administration instructions. levothyroxine (Synthroid, Levoxyl) 75 mcg tablet 37.5 mcg in the morning. lisinopril 5 mg tablet Take 1 tablet (5 mg) by mouth in the morning. 30 tablet 11 metFORMIN (Glucophage) 500 mg tablet Take 500 mg by mouth 1 (one) time each day. pen needle, diabetic 31 gauge x 3/16 needle USE WITH INSULIN PENS three times a day spironolactone (Aldactone) 25 mg tablet Take 0.5 tablets (12.5 mg) by mouth in the evening. Do not start before November 02, 2022. 15 tablet 6 amiodarone (Pacerone) 200 mg tablet Take 1 tablet (200 mg) by mouth in the morning. (Patient not taking: Reported on 01/29/2023) 90 tablet 3 aspirin 81 mg EC tablet in the morning. atorvastatin (Lipitor) 40 mg tablet Take 1 tablet (40 mg) by mouth at bedtime for 30 doses. 90 tablet 3 carvedilol (Coreg) 6.25 mg tablet Take 1 tablet (6.25 mg) by mouth in the morning and at bedtime for 60 doses. 180 tablet 3 celecoxib (CeleBREX) 200 mg capsule 1 capsule in the morning. dapagliflozin (Farxiga) 10 mg Take 1 tablet (10 mg) by mouth in the morning. 90 tablet 3 donepezil (Aricept) 5 mg tablet TAKE 1 TABLET BY MOUTH EVERY DAY AT BEDTIME FOR 30 DAYS furosemide (Lasix) 40 mg tablet Take 1 tablet by mouth daily for fluid retention as directed 90 tablet 3 Lantus Solostar U-100 Insulin 100 unit/mL (3 mL) pen Inject 30 Units under the skin in the morning. oxybutynin (Ditropan) 5 mg tablet every 12 (twelve) hours. sildenafil (Viagra) 25 mg tablet Take 25 mg by mouth if needed each day. testosterone (Androgel) 50 mg/5 gram (1 %) gel Place 50 mg on the skin in the morning. As directed No current facility-administered medications on file prior to visit. ROS: Cardio Basic Cardiovascular Symptoms: + lightheadedness, no leg edema, no syncope, no orthopnea, no PND, no claudication, +shortness of breath and palpitations Constitutional Constitutional: no fever, no night sweats, no significant weight gain, no significant weight loss, no exercise intolerance Eyes Eyes: no dry eyes, no irritation, no vision change ENMT Ears: no difficulty hearing, no ear pain Nose: no frequent nosebleeds, Mouth/Throat: no so (more content not included)...[facility]01-18-2023 [facility] Note Continue to monitorUnDayton Children's Hospital01-18-2023 Noteas above- s/p DCCV on 10/24. Continue Eliquis and Carvedilol. [id number], D/W Dr Rosenberg- EP and he recommends pt to start amiodarone for antiarrythmic and plan for outpt cardioversionUnDayton Children's Hospital01-18-2023 Note Plan for cardioversion outpt- CVL to call with scheduling s/p DCCV on 10/24. Continue Eliquis and Carvedilol. [id number], D/W Dr Rosenberg- DIMA and he recommends pt to start amiodarone for antiarrythmic and plan for outpt cardioversionUnDayton Children's Hospital01-18-2023 NoteNYHC II-III Currently euvolemic, without excerbation. Continue GDMT- lipitor, coreg, farxiga, lasix, lisinopril and aldactone Check CMP today Monitor daily weights, I&O, fluid restriction 1.5-2L/day, renal function and electrolytesUnDayton Children's Hospital01-18-2023 NotePatient here for follow up right heart cath and [facility] for CHF. states he's still very weak s/p hospital stay. She says he isn't eating like he should. Denies chest pain and bleeding on Eliquis. Review of Systems Constitutional: Positive for malaise/fatigue. Musculoskeletal: Positive for muscle weakness. Neurological: Positive for excessive daytime sleepiness and weakness. All other systems reviewed and are negative.[facility] 11-28-2022 NoteUTP CARDIOLOGY PROGRESS NOTE HPI: Gadiel Liang is a 72 y.o. male here for Congestive Heart Failure and Atrial Fibrillation Patient here for follow up right heart cath and [facility] for CHF. states he's still very weak s/p hospital stay. She says he isn't eating like he should. Denies chest pain and bleeding on Eliquis. Weight remains stable, denied chest pain, SOB or orthopnea. Denied any leg swelling. Admits generalized fatigue and poor appetite. Denied palpitations, lightheadedness/dizziness. Review of Systems Constitutional: Positive for malaise/fatigue. Musculoskeletal: Positive for muscle weakness. Neurological: Positive for excessive daytime sleepiness and weakness. All other systems reviewed and are negative. Visit Vitals BP 109/72 (BP Location: Left arm, Patient Position: Sitting) Pulse 79 Ht 1.829 m (6') Wt 79.4 kg (175 lb) SpO2 98% BMI 23.73 kg/m??? Smoking Status Former BSA 2.01 m??? No Known Allergies Medications: Current Outpatient Medications on File Prior to Visit Medication Sig Dispense Refill amiodarone (Pacerone) 200 mg tablet Take 1 tablet (200 mg) by mouth with breakfast and with evening meal for 198 doses. Do not start before November 27, 2022. 60 tablet 3 apixaban (Eliquis) 5 mg tablet Take 1 tablet (5 mg) by mouth in the morning and at bedtime. 60 tablet 11 buPROPion SR (Wellbutrin SR) 150 mg 12 hr tablet Take 1 tablet twice a day by oral route. cabergoline (Dostinex) 0.5 mg tablet Take 1 tablet every other day by oral route. esomeprazole (NexIUM) [address] capsule Take 40 mg by mouth before breakfast. Do not open capsule. Lantus Solostar U-100 Insulin 100 unit/mL (3 mL) pen Inject 30 Units under the skin in the morning. levothyroxine (Synthroid, Levoxyl) 75 mcg tablet 37.5 mcg in the morning. lisinopril 5 mg tablet Take 1 tablet (5 mg) by mouth in the morning. 30 tablet 11 metFORMIN (Glucophage) 500 mg tablet Take 500 mg by mouth 1 (one) time each day. spironolactone (Aldactone) 25 mg tablet Take 0.5 tablets (12.5 mg) by mouth in the evening. Do not start before November 02, 2022. 15 tablet 6 testosterone (Androgel) 50 mg/5 gram (1 %) gel Place 50 mg on the skin in the morning. As directed [DISCONTINUED] atorvastatin (Lipitor) 40 mg tablet Take 1 tablet (40 mg) by mouth at bedtime for 30 doses. 30 tablet 0 [DISCONTINUED] carvedilol (Coreg) 6.25 mg tablet Take 1 tablet (6.25 mg) by mouth in the morning and at bedtime for 60 doses. 60 tablet 0 [DISCONTINUED] dapagliflozin (Farxiga) 10 mg Take 1 tablet (10 mg) by mouth in the morning. Do not start before November 21, 2022. 30 tablet 0 [DISCONTINUED] furosemide (Lasix) 40 mg tablet Take 1 tablet by mouth daily for fluid retention as directed 30 tablet 0 [START ON 12/04/2022] amiodarone (Pacerone) 200 mg tablet Take 1 tablet (200 mg) by mouth in the morning for 99 doses. Do not start before December 04, 2022. (Patient not taking: Reported on 11/28/2022 Do not start before December 04, 2022.) 30 tablet 3 amiodarone (Pacerone) 400 mg tablet Take 1 tablet (400 mg) by mouth in the morning for 99 doses. (Patient not taking: Reported on 11/28/2022) 30 tablet 3 [DISCONTINUED] hydrOXYzine HCL (Atarax) 25 mg tablet Take 25 mg by mouth 1 (one) time. [DISCONTINUED] oxybutynin (Ditropan) 5 mg tablet Take 5 mg by mouth in the morning and at bedtime. [DISCONTINUED] sildenafil (Viagra) 25 mg tablet TAKE 1 TABLET BY MOUTH DAILY DIRECTED 30 MINUTES BEFORE INTERCOURSE No current facility-administered medications on file prior to visit. Physical Exam: Constitutional: Appearance: Normal appearance. Without apparent distress, chronically ill, thin appearing HENT: Head: Normocephalic and atraumatic. Nose: Nose normal. Mouth/Throat: Mouth: Mucous membranes are moist. Eyes: Extraocular Movements: Extraocular movements intact. Conjunctiva/sclera: Conjunctivae normal. Neck: Vascular: No JVD. Cardiovascular: Rate and Rhythm: Irreg/Irreg rhythm. Pulses: Dorsalis pedis pulses are 3 on the right side and 3on the left side. Posterior tibial pulses are 3 on the right side and 3 on the left side. Heart sounds: Normal heart sounds, S1 normal and S2 normal. Pulmonary: Effort: Pulmonary effort is normal. Breath sounds: Normal breath sounds. Abdominal: General: Bowel sounds are normal. Palpations: Abdomen is soft. Musculoskeletal: General: Normal range of motion. Cervical back: Normal range of motion. Right lower leg: No edema. Left lower leg: No edema. Skin: General: Skin is warm and dry. Capillary Refill: Capillary refill takes less than 2 seconds. Neurological: General: No focal deficit present. Mental Status: alert and oriented to person, place, and time. Psychiatric: Mood and Affect: Mood normal. Behavior: Behavior normal. Thought Content: Thought content normal. Judgment: Judgment normal. Labs: Sending pt for CMP today Last lab values have been (more content not included)...[facility]01-10-2023 NoteHospital Medicine Discharge Summary Final Discharge Diagnosis: Acute on chronic systolic congestive heart failure (CMS/HCC) Acute on Chronic HFrEF 20%, improved Positive stress s/p heart cath Afib, on eliquis IDDM, controlled Hypothyroidism GERD Admission Diagnosis: Acute on chronic systolic congestive heart failure ([facility]) [I50.23] Hospital course: Gadiel Liang is an 72 y.o. male with PMH significant for PAF on eliquis, chronic HFrEF (EF of 20%), PFO per MOMO, IDDM, hypothyroidism, and GERD who presents to [facility] ED with chief complaint of shortness of breath . Dyspnea has been present for the past several weeks and progressively worsening. Patient also reports significant generalized fatigue and weakness that is worsening with the dyspnea. He also reports worsening BLE edema. Patient recently underwent DC cardioversion on 10/24 at [facility] that was successful. He does not know when he converted back to A. Fib. About 1 week ago, he had a positive outpatient stress test. He was recently seen at the [facility] ED on 11/10 for the same symptoms of today. He was given IV diuresis and discharged from ED at that time. In the ED, he was found to have BNP of 1500 with normal first troponin. Vital signs are stable and he is on room air. He was given 20 mg IV lasix in ED. Patient was successfully diuresed with IV lasix and transitioned to oral on discharge. Heart cath was completed and showed mild to moderate CAD. Cardiology optimized medical management, as well as added Amiodorone loading on discharge with follow up with EP for potential ablation for his afib outpatient. Dear Dr. Richie MD, Gadiel is advised to follow up with you within 1-2 weeks. Follow-up with: Cardiology Scheduled appointments: Future Appointments Date Time Provider Department Center 11/28/2022 2:55 PM Janee Reddy NP [facility] Your medication list START taking these medications Instructions Last Dose Given Next Dose Due amiodarone 400 mg tablet Commonly known as: Pacerone Take 1 tablet (400 mg) by mouth in the morning for 99 doses. amiodarone 200 mg tablet Commonly known as: Pacerone Start taking on: November 27, 2022 Take 1 tablet (200 mg) by mouth with breakfast and with evening meal for 198 doses. Do not start before November 27, 2022. amiodarone 200 mg tablet Commonly known as: Pacerone Start taking on: December 04, 2022 Take 1 tablet (200 mg) by mouth in the morning for 99 doses. Do not start before December 04, 2022. carvedilol 6.25 mg tablet Commonly known as: Coreg Take 1 tablet (6.25 mg) by mouth in the morning and at bedtime for 60 doses. dapagliflozin 10 mg Commonly known as: Farxiga Start taking on: November 21, 2022 Take 1 tablet (10 mg) by mouth in the morning. Do not start before November 21, 2022. CHANGE how you take these medications Instructions Last Dose Given Next Dose Due atorvastatin 40 mg tablet Commonly known as: Lipitor What changed: medication strength how much to take Take 1 tablet (40 mg) by mouth at bedtime for 30 doses. furosemide 40 mg tablet Commonly known as: Lasix What changed: medication strength Take 1 tablet by mouth daily for fluid retention as directed CONTINUE taking these medications Instructions Last Dose Given Next Dose Due apixaban 5 mg tablet Commonly known as: Eliquis Take 1 tablet (5 mg) by mouth in the morning and at bedtime. buPROPion SR 150 mg 12 hr tablet Commonly known as: Wellbutrin SR cabergoline 0.5 mg tablet Commonly known as: Dostinex esomeprazole [address] capsule Commonly known as: NexIUM hydrOXYzine HCL 25 mg tablet Commonly known as: Atarax Lantus Solostar U-100 Insulin 100 unit/mL (3 mL) pen Generic drug: insulin glargine levothyroxine 75 mcg tablet Commonly known as: Synthroid, Levoxyl lisinopril 5 mg tablet Take 1 tablet (5 mg) by mouth in the morning. metFORMIN 500 mg tablet Commonly known as: Glucophage oxybutynin 5 mg tablet Commonly known as: Ditropan sildenafil 25 mg tablet Commonly known as: Viagra spironolactone 25 mg tablet Commonly known as: Aldactone Take 0.5 tablets (12.5 mg) by mouth in the evening. Do not start before November 02, 2022. testosterone 50 mg/5 gram (1 %) gel Commonly known as: Androgel STOP taking these medications metoprolol succinate XL 50 mg 24 hr tablet Commonly known as: Toprol-XL Where to Get Your Medications These medications were sent to [facility] - [place], [place] - [address] [place] [address] [place] [address], [facility] [address] amiodarone 200 mg tablet amiodarone 200 mg tablet amiodarone 400 mg tablet atorvastatin 40 mg tablet carvedilol 6.25 mg tablet dapagliflozin 10 mg furosemide 40 mg tablet Gadiel has No Known Allergies. Disposition: Home or Self Care Discharge Condition: Good Code Status: Prior Diagnostic Results Hematol (more content not included)...[facility] 11-20-2022 NoteCardiology Progress Note Reason for follow up: Subjective Patient seen and examined, no acute events overnight Reports shortness of breath has improved, denied orthopnea, or chest pain Denied any bleeding tendencies, palpitations ALLERGIES No Known Allergies CURRENT MEDS apixaban, 5 mg, oral, BID atorvastatin, 40 mg, oral, Nightly buPROPion SR, 150 mg, oral, BID carvedilol, 6.25 mg, oral, BID dapagliflozin, 10 mg, oral, Daily furosemide, 40 mg, intravenous, Daily insulin aspart, 0-20 Units, subcutaneous, TID with meals And insulin aspart, 0-20 Units, subcutaneous, Nightly levothyroxine, 37.5 mcg, oral, Daily lisinopril, 5 mg, oral, Daily [Held by provider] metoprolol succinate XL, 50 mg, oral, Daily oxybutynin, 5 mg, oral, BID pantoprazole, 40 mg, oral, Daily polyethylene glycol, 17 g, oral, Daily PRN medications: glucose OR dextrose 50 % in water (D50W), melatonin, sennosides-docusate sodium Objective Patient Vitals for the past 24 hrs: BP Temp Temp src Pulse Resp SpO2 11/20/22 0900 130/55 36.7 ???C (98 ???F) Oral 92 16 96 % 11/20/22 0300 128/51 36.7 ???C (98 ???F) Oral 91 16 96 % 11/19/22 2002 105/51 36.8 ???C (98.2 ???F) Oral (!) 48 16 99 % 11/19/22 1757 127/66 -- -- 93 12 98 % 11/19/22 1702 133/71 -- -- (!) 47 16 98 % 11/19/22 1649 119/60 -- -- 97 16 98 % 11/19/22 1559 -- -- -- -- -- 98 % BP 130/55 Pulse 92 Temp 36.7 ???C (98 ???F) (Oral) Resp 16 Ht 1.829 m (6') Wt 81.6 kg (179 lb 14.3 oz) SpO2 96% Comment: RA BMI 24.40 kg/m??? General: Awake, alert, NAD Eyes: anicteric sclera. Non-injected conjunctiva. No xanthelasmas Neck: No elevated JVP. No carotid bruit Pulm: Bibasilar crackles Cards: Irregular rate and rhythm,S1, S2. No S3 or S4 gallop. Murmur: none Abd: Soft, Nontender, physiologic bowel sounds are present Extr: Lower extremity edema: None. B/l Radial, DP pulses: 2+ Skin: warm, dry, well perfused. Lt radial site C/D/I without hematoma or bruit, mild ecchymosis noted Neuro: A&Ox3, No gross deficits Lab Results Component Value Date NA 138 11/20/2022 K 4.1 11/20/2022 CL 101 11/20/2022 ANIONGAP 11 11/20/2022 BUN 22 11/20/2022 CREATININE 1.13 11/20/2022 CALCIUM 9.0 11/20/2022 MG 2.4 11/20/2022 No results found for: BILITOT, BILIDIR, ALKPHOS, AST, ALT, PROT, ALBUMIN No results found for: CHOLESTEROL, CHOLESTEROL, CHOLESTEROL, CHOLESTEROL TOTAL, TRIGLYCERIDES, TRIGLYCERIDES, TRIGLYCERIDES, HDL, HDL, HDL, LDL CHOLESTEROL, LDL CHOLESTEROL, LDL CHOLESTEROL, LDL DIRECT, LDL CALC Lab Results Component Value Date BNP 1,630 (H) 11/16/2022 Lab Results Component Value Date TSH 4.08 11/15/2022 No results found for: DIGOXIN LVL Lab Results Component Value Date WBC 6.38 11/20/2022 RBC 4.74 11/20/2022 HGB 13.2 11/20/2022 HCT 40.9 11/20/2022 MCV 86.3 11/20/2022 MCH 27.8 11/20/2022 MCHC 32.3 11/20/2022 RDW 14.8 11/20/2022 NEUTOPHILPCT 61.5 11/20/2022 LYMPHOPCT 21.8 11/20/2022 MONOPCT 12.4 (H) 11/20/2022 EOSPCT 3.6 11/20/2022 BASOPCT 0.5 11/20/2022 NEUTROABS 3.93 11/20/2022 LYMPHSABS 1.39 11/20/2022 MONOSABS 0.79 11/20/2022 EOSABS 0.23 11/20/2022 BASOSABS 0.03 11/20/2022 PLT 222 11/20/2022 NRBC 0.0 11/20/2022 No X-ray results found for the past 24 hours CV Testing: Final Impression: 1) Coronary angiogram reveals mild to moderate CAD 2) Right heart catheterization is normal Plan: 1) optimal med therapy for CAD and systolic CHF and afib 2) Aspirin and high intensity statin therapy for CAD 3) med therapy for HFrEF as appropriate 4) referral to EP for consideration for afib ablation 5) anticoagulation as appropriate for prevention of stroke XR chest 2 views Narrative: XR CHEST 2 VIEWS HISTORY: Dyspnea. COMPARISON: None. Impression: 1. Small pleural effusions noted with some probable adjacent lung base atelectasis. 2. Slightly tortuous thoracic aorta, borderline cardiomegaly. Assessment Acute on chronic systolic congestive heart failure (CMS/HCC) Assessment: 1/Acute on chronic systolic congestive heart failure, HFrEF with EF 20 to 25%. NYHA class III 2/paroxysmal atrial fibrillation on anticoagulation. Status post DC cardioversion in 10/24. 3/PFO with [id number] shunt. 4/hypertension, uncontrolled Plan -HFrEF 20-25% NYHA class II-III. Continue GDMT- No ASA with eliquis, continue lipitor 40 mg daily, Lisinopril 5mg, Carvedilol 6.25mg BID, Farxiga 10 mg and Lasix 40mg daily. Continue to monitor strict intake and output, daily weights, and maintain fluid restriction. -AF s/p DCCV on 10/24. Continue Eliquis and Carvedilol. [id number], D/W Dr Rosenberg- EP and he recommends pt to start amiodarone for antiarrythmic and plan for outpt cardioversion and f/U with EP in [facility]. F/U with Cardiology heart failure clinic as scheduled, will need repeat CMP in 1 week after discharge. Janee Reddy NP Division of Cardiology, [facility] Ph- [phone] P (more content not included)...[facility]01-10-2023 NoteHospital Medicine Daily Progress Note - 11/20/2022 4:20 PM; Room: [address] [place] [address] Admission: 11/15/2022 12:31 PM; Length of stay: 5 days THE HOSPITALIST TEAM PREFERS TO USE [employer] FOR COMMUNICATION 7AM-7PM. IF I DO NOT RESPOND WITHIN 15 MINUTES, PLEASE PAGE ME/CALL THROUGH THE PHARMACY SCHEDULER. FROM 7PM-7AM, PLEASE PAGE [phone](COVR) Code Status: Full Code Discharge Destination: home Expected Discharge: today Overview Patient is seen for evaluation and management of acute on chronic systolic congestive heart failure. Subjective Patient was assessed at bedside. He denies shortness of breath or chest pain. He would like to discharge home today. Physical Exam Visit Vitals BP 130/55 Pulse 92 Temp 36.7 ???C (98 ???F) (Oral) Resp 16 Intake/Output Summary (Last 24 hours) at 11/20/2022 1620 Last data filed at 11/20/2022 0300 Gross per 24 hour Intake 616.37 ml Output 1060 ml Net -443.63 ml Physical Exam Vitals reviewed. Constitutional: General: He is awake. He is not in acute distress. Appearance: Normal appearance. He is not ill-appearing. Cardiovascular: Rate and Rhythm: Normal rate. Rhythm irregular. Pulses: Radial pulses are 2+ on the right side and 2+ on the left side. Dorsalis pedis pulses are 2+ on the right side and 2+ on the left side. Pulmonary: Effort: Pulmonary effort is normal. Breath sounds: Normal breath sounds. Abdominal: General: Bowel sounds are normal. There is no distension. Palpations: Abdomen is soft. Tenderness: There is no abdominal tenderness. Musculoskeletal: Right lower leg: No edema. Left lower leg: No edema. Skin: General: Skin is warm and dry. Neurological: Mental Status: He is alert and oriented to person, place, and time. Mental status is at baseline. Psychiatric: Attention and Perception: Attention normal. Mood and Affect: Mood normal. Speech: Speech normal. Behavior: Behavior normal. Behavior is cooperative. Thought Content: Thought content normal. Estimated body mass index is 24.4 kg/m??? as calculated from the following: Height as of this encounter: 1.829 m (6'). Weight as of this encounter: 81.6 kg (179 lb 14.3 oz). Active Inpatient Problems Principal Problem: Acute on chronic systolic congestive heart failure (CMS/HCC) Assessment and Plan Acute on Chronic HFrEF 20%, improved Positive stress s/p heart cath Afib, on eliquis IDDM, controlled Hypothyroidism GERD Appreciate cardiology recommendations Continue GDMT- No ASA with eliquis, continue lipitor 40 mg daily, Lisinopril 5mg, Carvedilol 6.25mg BID, Farxiga 10 mg and Lasix 40mg daily. Continue to monitor strict intake and output, daily weights, and maintain fluid restriction. Added amiodorone loading doses with follow up with EP outpatient for ablation CMP in 1 week Follow up in heart failure clinic Diabetic male diet, sliding scale insulin, ACHS glucose checks Continue synthroid and protonix VTE Prophylaxis: Eliquis Scheduled Meds [START ON 11/28/2022] amiodarone, 200 mg, oral, BID with meals [START ON 12/05/2022] amiodarone, 200 mg, oral, Daily amiodarone, 400 mg, oral, BID apixaban, 5 mg, oral, BID atorvastatin, 40 mg, oral, Nightly buPROPion SR, 150 mg, oral, BID carvedilol, 6.25 mg, oral, BID dapagliflozin, 10 mg, oral, Daily furosemide, 40 mg, intravenous, Daily insulin aspart, 0-20 Units, subcutaneous, TID with meals And insulin aspart, 0-20 Units, subcutaneous, Nightly levothyroxine, 37.5 mcg, oral, Daily lisinopril, 5 mg, oral, Daily [Held by provider] metoprolol succinate XL, 50 mg, oral, Daily oxybutynin, 5 mg, oral, BID pantoprazole, 40 mg, oral, Daily polyethylene glycol, 17 g, oral, Daily Pertinent Investigations Hematology: Results from last 7 days Lab Units 11/20/22 0454 11/19/22 0423 11/16/22 0418 11/15/22 1255 WBC AUTO 10*3/uL 6.38 6.31 < > 7.18 HEMOGLOBIN g/dL 13.2 12.7* < > 12.8* HEMATOCRIT % 40.9 39.1 < > 40.2 MCV fL 86.3 86.3 < > 85.9 PLATELETS AUTO 10*3/uL 222 218 < > 245 INR -- -- -- 1.87* < > = values in this interval not displayed. Chemistry: Results from last 7 days Lab Units 11/20/22 0454 11/19/22 0423 11/18/22 0540 SODIUM mmol/L 138 139 139 POTASSIUM mmol/L 4.1 3.9 4.1 CHLORIDE mmol/L 101 103 103 CO2 mmol/L 26 26 24 BUN mg/dL 22 17 17 CREATININE mg/dL 1.13 1.13 0.98 GLUCOSE mg/dL 135* 112* 132* MAGNESIUM mg/dL 2.4 2.2 2.2 CALCIUM mg/dL 9.0 8.9 9.0 No lab exists for component: AFIO2, APHT, APCOT, APOT, ATCO2, CK, ALB, IBILI Results from last 7 days Lab Units 11/20/22 1218 11/20/22 0842 11/19/22 2006 11/19/22 1136 11/18/22 2118 11/18/22 1641 POCT GLUCOSE mg/dL 194* 140* 372* 149* 215* 171* Historical Values: (Includes values prior to this admission) Lab Results Component Value Date TSH 4.08 11/15/2022 No results found for: [id number], IRON, TIBC, C3, C4, YING, CANCA, ASO, PSA, CEA, CA125, CA199, AFP, CA153 Imaging Cardiac (more content not included)...[facility] 11-19-2022 NotePatient: Gadiel Austin Garth Procedure Information Date/Time: 11/19/22 1535 Procedures: Coronary angiography (Left) RIGHT HEART CATH Location: [facility] AIR INTERCEPT CONTROLLER 2 BIPLANE / [facility] HV VASCULAR LAB (Cath) Providers: Esteban Do MD Clinical information reviewed: Tobacco Allergies Meds Med Hx Surg Hx Fam Hx Soc Hx Physical Exam Airway Mallampati: III Cardiovascular - normal exam Dental Pulmonary - normal exam Abdominal - normal exam Anesthesia Plan ASA 3 other (Conscious sedation) Anesthetic plan and risks discussed with patient. Use of blood products discussed with patient who consented to blood products. Plan discussed with fellow. Additional Equipment [facility]01-09-2023 Note Attestation signed by Clem Wylie MD at 11/19/2022 6:13 PM I personally saw and examined the patient on the same date of service as resident/fellow Dr. Richards. I discussed the findings and therapeutic plan with the resident/fellow Dr. Richards. I agree with the documentation, except for any edits/updates below. Teaching Physician's Revisions: None. Cardiology Progress Note Reason for follow up: Subjective Patient seen and examined, clinically he is doing well. Reports shortness of breath has improved. ALLERGIES No Known Allergies CURRENT MEDS [Held by provider] apixaban, 5 mg, oral, BID atorvastatin, 20 mg, oral, Nightly buPROPion SR, 150 mg, oral, BID carvedilol, 6.25 mg, oral, BID dapagliflozin, 10 mg, oral, Daily furosemide, 40 mg, intravenous, Daily insulin aspart, 0-20 Units, subcutaneous, TID with meals And insulin aspart, 0-20 Units, subcutaneous, Nightly levothyroxine, 37.5 mcg, oral, Daily lisinopril, 5 mg, oral, Daily [Held by provider] metoprolol succinate XL, 50 mg, oral, Daily oxybutynin, 5 mg, oral, BID pantoprazole, 40 mg, oral, Daily polyethylene glycol, 17 g, oral, Daily heparin, 15 Units/kg/hr, Last Rate: 15 Units/kg/hr (11/19/22 1106) PRN medications: glucose OR dextrose 50 % in water (D50W), melatonin, sennosides-docusate sodium Objective Patient Vitals for the past 24 hrs: BP Temp Temp src Pulse Resp SpO2 11/19/22 0943 140/73 36.5 ???C (97.7 ???F) Oral 86 17 98 % 11/18/222012 131/76 36.6 ???C (97.8 ???F) -- 58 18 96 % 11/18/22 1538 133/65 36.5 ???C (97.7 ???F) Oral 84 19 98 % BP 140/73 (BP Location: Right arm, Patient Position: Lying) Pulse 86 Temp 36.5 ???C (97.7 ???F) (Oral) Resp 17 Ht 1.829 m (6') Wt 81.6 kg (179 lb 14.3 oz) SpO2 98% BMI 24.40 kg/m??? General: Awake, alert, NAD Eyes: anicteric sclera. Non-injected conjunctiva. No xanthelasmas Neck: No elevated JVP. No carotid bruit Pulm: Bibasilar crackles Cards: Irregular rate and rhythm,S1, S2. No S3 or S4 gallop. Murmur: none Abd: Soft, Nontender, physiologic bowel sounds are present Extr: Lower extremity edema: None. DP pulses: 2+ Skin: warm, dry, well perfused Neuro: A&Ox3, No gross deficits Lab Results Component Value Date NA 139 11/19/2022 K 3.9 11/19/2022 CL 103 11/19/2022 ANIONGAP 10 11/19/2022 BUN 17 11/19/2022 CREATININE 1.13 11/19/2022 CALCIUM 8.9 11/19/2022 MG 2.2 11/19/2022 No results found for: BILITOT, BILIDIR, ALKPHOS, AST, ALT, PROT, ALBUMIN No results found for: CHOLESTEROL, CHOLESTEROL, CHOLESTEROL, CHOLESTEROL TOTAL, TRIGLYCERIDES, TRIGLYCERIDES, TRIGLYCERIDES, HDL, HDL, HDL, LDL CHOLESTEROL, LDL CHOLESTEROL, LDL CHOLESTEROL, LDL DIRECT, LDL CALC Lab Results Component Value Date BNP 1,630 (H) 11/16/2022 Lab Results Component Value Date TSH 4.08 11/15/2022 No results found for: DIGOXIN LVL Lab Results Component Value Date WBC 6.31 11/19/2022 RBC 4.53 11/19/2022 HGB 12.7 (L) 11/19/2022 HCT 39.1 11/19/2022 MCV 86.3 11/19/2022 MCH 28.0 11/19/2022 MCHC 32.5 11/19/2022 RDW 14.8 11/19/2022 NEUTOPHILPCT 57.9 11/19/2022 LYMPHOPCT 25.7 11/19/2022 MONOPCT 11.6 11/19/2022 EOSPCT 3.8 11/19/2022 BASOPCT 0.5 11/19/2022 NEUTROABS 3.66 11/19/2022 LYMPHSABS 1.62 11/19/2022 MONOSABS 0.73 11/19/2022 EOSABS 0.24 11/19/2022 BASOSABS 0.03 11/19/2022 PLT 218 11/19/2022 NRBC 0.0 11/19/2022 No X-ray results found for the past 24 hours CV Testing: ECG 12 lead Atrial fibrillation Right bundle branch block Left anterior fascicular block Bifascicular block Abnormal ECG When compared with ECG of 24-OCT-2022 11:48, Atrial fibrillation has replaced Sinus rhythm Left anterior fascicular block is now Present Confirmed by Binh TORIBIO, L.S. (2) on 11/15/2022 2:26:54 PM XR chest 2 views Narrative: XR CHEST 2 VIEWS HISTORY: Dyspnea. COMPARISON: None. Impression: 1. Small pleural effusions noted with some probable adjacent lung base atelectasis. 2. Slightly tortuous thoracic aorta, borderline cardiomegaly. Assessment Gadiel Liang is a 72 y.o. male presenting with Past medical history of heart failure with reduced ejection fraction 20 to 25%, paroxysmal atrial fibrillation on anticoagulation, TIAs, insulin-dependent diabetes mellitus, hypothyroidism who presented to the ER for shortness of breath and orthopnea. Patient denied any previous left heart catheterization. Patient has been compliant with GDMT. Patient denied any syncope or presyncope. Patient denied any chest pain.BNP on admission 1500. Bilateral vascular congestion on chest x-ray. Plan -HFrEF 20-25% NYHA class II-III. He has previously had a positive outpatient stress test but no cath. Continue GDMT Lisinopril 5mg/Carvedilol 6.25mg BID, Farxiga, and (more content not included)...[facility] 11-19-2022 NoteHospital Medicine Daily Progress Note - 11/19/2022 10:19 AM; Room: [address] [place] [address] Admission: 11/15/2022 12:31 PM; Length of stay: 4 days THE HOSPITALIST TEAM PREFERS TO USE [employer] FOR COMMUNICATION 7AM-7PM. IF I DO NOT RESPOND WITHIN 15 MINUTES, PLEASE PAGE ME/CALL THROUGH THE PHARMACY SCHEDULER. FROM 7PM-7AM, PLEASE PAGE [phone](COVR) Code Status: Full Code Discharge Destination: home Expected Discharge: 2-3 days Overview Patient is seen for evaluation and management of SOB. Subjective Patient resting in bed with significant other at bedside. He denies pain, sob, swelling to extremities. Both patient and spouse agreeable to plan for cardiac procedure today. Physical Exam Visit Vitals BP 140/73 (BP Location: Right arm, Patient Position: Lying) Pulse 86 Temp 36.5 ???C (97.7 ???F) (Oral) Resp 17 Intake/Output Summary (Last 24 hours) at 11/19/2022 1019 Last data filed at 11/19/2022 0620 Gross per 24 hour Intake 1103.44 ml Output 550 ml Net 553.44 ml Physical Exam Vitals and nursing note reviewed. Constitutional: General: He is not in acute distress. Appearance: Normal appearance. He is not ill-appearing. HENT: Head: Normocephalic and atraumatic. Right Ear: External ear normal. Left Ear: External ear normal. Nose: Nose normal. Mouth/Throat: Mouth: Mucous membranes are moist. Pharynx: Oropharynx is clear. Eyes: Extraocular Movements: Extraocular movements intact. Conjunctiva/sclera: Conjunctivae normal. Pupils: Pupils are equal, round, and reactive to light. Cardiovascular: Rate and Rhythm: Normal rate. Rhythm irregularly irregular. Pulses: Normal pulses. Heart sounds: Normal heart sounds. Pulmonary: Effort: Pulmonary effort is normal. No respiratory distress. Breath sounds: Rales (fine rales to bilateral bases, overall improving) present. No decreased breath sounds, wheezing or rhonchi. Abdominal: General: Bowel sounds are normal. There is no distension. Palpations: Abdomen is soft. Tenderness: There is no abdominal tenderness. Musculoskeletal: General: No swelling. Normal range of motion. Cervical back: Normal range of motion and neck supple. Right lower leg: Edema (trace) present. Left lower leg: Edema (trace) present. Skin: General: Skin is warm and dry. Capillary Refill: Capillary refill takes less than 2 seconds. Neurological: General: No focal deficit present. Mental Status: He is alert and oriented to person, place, and time. Mental status is at baseline. Psychiatric: Mood and Affect: Mood normal. Speech: Speech normal. Behavior: Behavior normal. Behavior is cooperative. Thought Content: Thought content normal. Estimated body mass index is 24.4 kg/m??? as calculated from the following: Height as of this encounter: 1.829 m (6'). Weight as of this encounter: 81.6 kg (179 lb 14.3 oz). Active Inpatient Problems Principal Problem: Acute on chronic systolic congestive heart failure (CMS/[facility]) Assessment and Plan # Acute on chronic HFrEF (EF of 20%), improving with diuresis # Positive stress test [employer], heart cath 11/19/22, follow up on findings and cardiology recommendations # PFO per MOMO: # Afib on Eliquis: # Generalized weakness, likely 2/2 above: - Monitor I's and O's. Low-sodium diet. Fluid restriction. Daily weights. - Monitor renal function and electrolytes with diuresis. - Cardiology service consult, adjusting heart failure GDMT medications. Changing home metoprolol to carvedilol, started . - continue IV lasix 40 mg daily -Heparin infusion while Eliquis on hold for heart cath # IDDM: - continue Diabetic-male diet. -SSI and bedside glucose checks ACHS # Hypothyroidism: # GERD: - continue home medications. VTE Prophylaxis: Heparin infusion while eliquis on hold Scheduled Meds [Held by provider] apixaban, 5 mg, oral, BID atorvastatin, 20 mg, oral, Nightly buPROPion SR, 150 mg, oral, BID carvedilol, 6.25 mg, oral, BID dapagliflozin, 10 mg, oral, Daily furosemide, 40 mg, intravenous, Daily insulin aspart, 0-20 Units, subcutaneous, TID with meals And insulin aspart, 0-20 Units, subcutaneous, Nightly levothyroxine, 37.5 mcg, oral, Daily lisinopril, 5 mg, oral, Daily [Held by provider] metoprolol succinate XL, 50 mg, oral, Daily oxybutynin, 5 mg, oral, BID pantoprazole, 40 mg, oral, Daily polyethylene glycol, 17 g, oral, Daily heparin, 15 Units/kg/hr, Last Rate: 15 Units/kg/hr (11/19/22 0607) Pertinent Investigations Hematology: Results from last 7 days Lab Units 11/19/22 0423 11/18/22 0540 11/16/22 0418 11/15/22 1255 WBC AUTO 10*3/uL 6.31 7.21 < > 7.18 HEMOGLOBIN g/dL 12.7* 13.3 < > 12.8* HEMATOCRIT % 39.1 41.4 < > 40.2 MCV fL 86.3 85.2 < > 85.9 PLATELETS AUTO 10*3/uL 218 238 < > 245 INR -- -- -- 1.87* < > = values in this interval not displayed. Chemistry: Results from last 7 days Lab Units 11/19/2242211/18/22 0540 11/17/22 0631 SODIUM mmol/L 13 (more content not included)...[facility]01-08-2023 NoteHospital Medicine Daily Progress Note - 11/18/2022 12:47 PM; Room: [address] [place] [address] Admission: 11/15/2022 12:31 PM; Length of stay: 3 days THE HOSPITALIST TEAM PREFERS TO USE [employer] FOR COMMUNICATION 7AM-7PM. IF I DO NOT RESPOND WITHIN 15 MINUTES, PLEASE PAGE ME/CALL THROUGH THE PHARMACY SCHEDULER. FROM 7PM-7AM, PLEASE PAGE [phone](COVR) Code Status: Full Code Discharge Destination: home Expected Discharge: 2-3 days Overview Patient is seen for evaluation and management of SOB. Subjective Denies cp, sob, swelling to extremities. Heparin drip infusing. He states understanding that cardiac procedure will happen tomorrow. Physical Exam Visit Vitals BP (!) 145/95 (Patient Position: Lying) Pulse 95 Temp 36.5 ???C (97.7 ???F) (Oral) Resp 18 Intake/Output Summary (Last 24 hours) at 11/18/2022 1247 Last data filed at 11/18/2022 1103 Gross per 24 hour Intake 1968.09 ml Output 1850 ml Net 118.09 ml Physical Exam Vitals and nursing note reviewed. Constitutional: General: He is not in acute distress. Appearance: Normal appearance. He is not ill-appearing. HENT: Head: Normocephalic and atraumatic. Right Ear: External ear normal. Left Ear: External ear normal. Nose: Nose normal. Mouth/Throat: Mouth: Mucous membranes are moist. Pharynx: Oropharynx is clear. Eyes: Extraocular Movements: Extraocular movements intact. Conjunctiva/sclera: Conjunctivae normal. Pupils: Pupils are equal, round, and reactive to light. Cardiovascular: Rate and Rhythm: Normal rate. Rhythm irregularly irregular. Pulses: Normal pulses. Heart sounds: Normal heart sounds. Pulmonary: Effort: Pulmonary effort is normal. No respiratory distress. Breath sounds: Examination of the right-lower field reveals rales. Examination of the left-lower field reveals rales. Rales present. No decreased breath sounds, wheezing or rhonchi. Abdominal: General: Bowel sounds are normal. There is no distension. Palpations: Abdomen is soft. Tenderness: There is no abdominal tenderness. Musculoskeletal: General: No swelling. Normal range of motion. Cervical back: Normal range of motion and neck supple. Right lower leg: Edema (trace) present. Left lower leg: Edema (trace) present. Skin: General: Skin is warm and dry. Capillary Refill: Capillary refill takes less than 2 seconds. Neurological: General: No focal deficit present. Mental Status: He is alert and oriented to person, place, and time. Mental status is at baseline. Psychiatric: Mood and Affect: Mood normal. Speech: Speech normal. Behavior: Behavior normal. Behavior is cooperative. Thought Content: Thought content normal. Estimated body mass index is 24.4 kg/m??? as calculated from the following: Height as of this encounter: 1.829 m (6'). Weight as of this encounter: 81.6 kg (179 lb 14.3 oz). Active Inpatient Problems Principal Problem: Acute on chronic systolic congestive heart failure (CMS/[facility]) Assessment and Plan # Acute on chronic HFrEF (EF of 20%): # Positive stress test: # PFO per MOMO: # Afib on Eliquis: # Generalized weakness, likely 2/2 above: - Monitor I's and O's. Low-sodium diet. Fluid restriction. Daily weights. - Monitor renal function and electrolytes with diuresis. - Cardiology service consult, adjusting heart failure GDMT medications. Changing home metoprolol to carvedilol, will start Farxiga. - continue IV lasix 40 mg daily -Heparin infusion while Eliquis on hold for heart cath tomorrow, NPO after MN # IDDM: - continue Diabetic-male diet. -SSI and bedside glucose checks ACHS # Hypothyroidism: # GERD: - continue home medications. VTE Prophylaxis: Heparin infusion while eliquis on hold Scheduled Meds [Held by provider] apixaban, 5 mg, oral, BID atorvastatin, 20 mg, oral, Nightly buPROPion SR, 150 mg, oral, BID carvedilol, 6.25 mg, oral, BID dapagliflozin, 10 mg, oral, Daily furosemide, 40 mg, intravenous, Daily insulin aspart, 0-20 Units, subcutaneous, TID with meals And insulin aspart, 0-20 Units, subcutaneous, Nightly levothyroxine, 37.5 mcg, oral, Daily lisinopril, 5 mg, oral, Daily [Held by provider] metoprolol succinate XL, 50 mg, oral, Daily oxybutynin, 5 mg, oral, BID pantoprazole, 40 mg, oral, Daily heparin, 15 Units/kg/hr, Last Rate: 15 Units/kg/hr (11/18/22 1103) Pertinent Investigations Hematology: Results from last 7 days Lab Units 11/18/22 0540 11/17/22 1636 11/17/22 0631 11/16/22 0418 11/15/22 1255 WBC AUTO 10*3/uL 7.21 -- 7.26 < > 7.18 HEMOGLOBIN g/dL 13.3 -- 12.3* < > 12.8* HEMATOCRIT % 41.4 -- 38.3* < > 40.2 MCV fL 85.2 -- 85.5 < > 85.9 PLATELETS AUTO 10*3/uL 238 225 228 < > 245 INR -- -- -- -- 1.87* < > = values in this interval not displayed. Chemistry: Results from last 7 days Lab Units 11/18/22 0540 11/17/22 0631 11/16/22 1613 11/16/22 0418 SODIUM mmol/L 139 138 -- 138 POTASSIUM mmol/L 4.1 4.1 -- 3.9 CHLORIDE mmol/L 103 105 - (more content not included)...[facility]01-08-2023 NoteCardiology Progress Note Reason for follow up: Subjective Patient seen and examined, clinically he is doing well. Reports shortness of breath has improved. ALLERGIES No Known Allergies CURRENT MEDS [Held by provider] apixaban, 5 mg, oral, BID atorvastatin, 20 mg, oral, Nightly buPROPion SR, 150 mg, oral, BID carvedilol, 6.25 mg, oral, BID dapagliflozin, 10 mg, oral, Daily furosemide, 40 mg, intravenous, Daily insulin aspart, 0-20 Units, subcutaneous, TID with meals And insulin aspart, 0-20 Units, subcutaneous, Nightly levothyroxine, 37.5 mcg, oral, Daily lisinopril, 5 mg, oral, Daily [Held by provider] metoprolol succinate XL, 50 mg, oral, Daily oxybutynin, 5 mg, oral, BID pantoprazole, 40 mg, oral, Daily heparin, 15 Units/kg/hr, Last Rate: 15 Units/kg/hr (11/18/22 1103) PRN medications: glucose OR dextrose 50 % in water (D50W), melatonin Objective Patient Vitals for the past 24 hrs: BP Temp Temp src Pulse Resp SpO2 11/18/22 0750 (!) 145/95 36.5 ???C (97.7 ???F) Oral 95 18 94 % 11/18/22 0300 140/84 36.4 ???C (97.6 ???F) Oral 94 18 95 % 11/17/22 1900 123/81 36.6 ???C (97.8 ???F) Oral 77 18 100 % 11/17/22 1525 115/70 36.4 ???C (97.5 ???F) Oral 76 19 95 % BP (!) 145/95 (Patient Position: Lying) Pulse 95 Temp 36.5 ???C (97.7 ???F) (Oral) Resp 18 Ht 1.829 m (6') Wt 81.6 kg (179 lb 14.3 oz) SpO2 94% BMI 24.40 kg/m??? General: Awake, alert, NAD Eyes: anicteric sclera. Non-injected conjunctiva. No xanthelasmas Neck: No elevated JVP. No carotid bruit Pulm: Bibasilar crackles Cards: Irregular rate and rhythm,S1, S2. No S3 or S4 gallop. Murmur: none Abd: Soft, Nontender, physiologic bowel sounds are present Extr: Lower extremity edema: None. DP pulses: 2+ Skin: warm, dry, well perfused Neuro: A&Ox3, No gross deficits Lab Results Component Value Date NA 139 11/18/2022 K 4.1 11/18/2022 CL 103 11/18/2022 ANIONGAP 12 11/18/2022 BUN 17 11/18/2022 CREATININE 0.98 11/18/2022 CALCIUM 9.0 11/18/2022 MG 2.2 11/18/2022 No results found for: BILITOT, BILIDIR, ALKPHOS, AST, ALT, PROT, ALBUMIN No results found for: CHOLESTEROL, CHOLESTEROL, CHOLESTEROL, CHOLESTEROL TOTAL, TRIGLYCERIDES, TRIGLYCERIDES, TRIGLYCERIDES, HDL, HDL, HDL, LDL CHOLESTEROL, LDL CHOLESTEROL, LDL CHOLESTEROL, LDL DIRECT, LDL CALC Lab Results Component Value Date BNP 1,630 (H) 11/16/2022 Lab Results Component Value Date TSH 4.08 11/15/2022 No results found for: DIGOXIN LVL Lab Results Component Value Date WBC 7.21 11/18/2022 RBC 4.86 11/18/2022 HGB 13.3 11/18/2022 HCT 41.4 11/18/2022 MCV 85.2 11/18/2022 MCH 27.4 11/18/2022 MCHC 32.1 11/18/2022 RDW 14.5 11/18/2022 NEUTOPHILPCT 65.2 11/18/2022 LYMPHOPCT 20.5 11/18/2022 MONOPCT 8.5 11/18/2022 EOSPCT 4.7 11/18/2022 BASOPCT 0.7 11/18/2022 NEUTROABS 4.70 11/18/2022 LYMPHSABS 1.48 11/18/2022 MONOSABS 0.61 11/18/2022 EOSABS 0.34 11/18/2022 BASOSABS 0.05 11/18/2022 PLT 238 11/18/2022 NRBC 0.0 11/18/2022 No X-ray results found for the past 24 hours CV Testing: ECG 12 lead Atrial fibrillation Right bundle branch block Left anterior fascicular block Bifascicular block Abnormal ECG When compared with ECG of 24-OCT-2022 11:48, Atrial fibrillation has replaced Sinus rhythm Left anterior fascicular block is now Present Confirmed by Binh TORIBIO, L.S. (2) on 11/15/2022 2:26:54 PM XR chest 2 views Narrative: XR CHEST 2 VIEWS HISTORY: Dyspnea. COMPARISON: None. Impression: 1. Small pleural effusions noted with some probable adjacent lung base atelectasis. 2. Slightly tortuous thoracic aorta, borderline cardiomegaly. Assessment Gadiel Liang is a 72 y.o. male presenting with Past medical history of heart failure with reduced ejection fraction 20 to 25%, paroxysmal atrial fibrillation on anticoagulation, TIAs, insulin-dependent diabetes mellitus, hypothyroidism who presented to the ER for shortness of breath and orthopnea. Patient denied any previous left heart catheterization. Patient has been compliant with GDMT. Patient denied any syncope or presyncope. Patient denied any chest pain.BNP on admission 1500. Bilateral vascular congestion on chest x-ray. Plan -HFrEF 20-25% NYHA class II-III. He has previously had a positive outpatient stress test but no cath. Continue GDMT Lisinopril 5mg/Carvedilol 6.25mg BID, Farxiga, and Lasix 40mg daily. Continue to monitor strict intake and output, daily weights, and maintain fluid restriction. Plans for right and left heart cath tomorrow. -AF s/p DCCV on 10/24. Continue heparin and Carvedilol. [id number], previously on Eliquis for anticoagulation. Soraida Goetz NP [facility] Cardiovascular Medicine [phone] Note Attestation signed by Clem Wylie MD at 11/17/2022 5:25 PM I personally saw and examined the patient on the same date of service as resident/fellow Dr. Richards. I discussed the findings and therapeutic plan with the resident/fellow Dr. Richards. I agree with the documentation, except for any edits/updates below. Teaching Physician's Revisions: None Subjective Patient was seen and examined at bedside. Denied any chest pain. Reported his shortness of breath improved. No acute events overnight. Objective Patient Vitals for the past 24 hrs: BP Temp Temp src Pulse Resp SpO2 Weight 11/17/22 1525 115/70 36.4 ???C (97.5 ???F) Oral 76 19 95 % -- 11/17/22 1014 (!) 146/95 36.4 ???C (97.5 ???F) Oral 72 16 94 % -- 11/17/22 0500 149/84 37.1 ???C (98.8 ???F) -- 94 18 100 % -- 11/17/22 0449 -- -- -- -- -- -- 81.6 kg (179 lb 14.3 oz) 11/16/22 2100 143/88 36.8 ???C (98.2 ???F) Oral 73 18 98 % -- Physical Exam Cardiovascular: Rate and Rhythm: Normal rate and regular rhythm. Pulses: Normal pulses. Heart sounds: Normal heart sounds. No murmur heard. No friction rub. Pulmonary: Effort: Pulmonary effort is normal. No respiratory distress. Musculoskeletal: General: No swelling. Skin: Capillary Refill: Capillary refill takes less than 2 seconds. Neurological: Mental Status: He is alert. Lab Results Component Value Date NA 138 11/17/2022 K 4.1 11/17/2022 CL 105 11/17/2022 ANIONGAP 9 11/17/2022 BUN 18 11/17/2022 CREATININE 1.00 11/17/2022 CALCIUM 9.0 11/17/2022 MG 2.2 11/17/2022 No results found for: BILITOT, BILIDIR, ALKPHOS, AST, ALT, PROT, ALBUMIN Lab Results Component Value Date WBC 7.26 11/17/2022 RBC 4.48 11/17/2022 HGB 12.3 (L) 11/17/2022 HCT 38.3 (L) 11/17/2022 MCV 85.5 11/17/2022 MCH 27.5 11/17/2022 MCHC 32.1 11/17/2022 RDW 14.6 11/17/2022 NEUTOPHILPCT 61.1 11/17/2022 LYMPHOPCT 24.8 11/17/2022 MONOPCT 8.5 11/17/2022 EOSPCT 4.8 11/17/2022 BASOPCT 0.4 11/17/2022 NEUTROABS 4.43 11/17/2022 LYMPHSABS 1.80 11/17/2022 MONOSABS 0.62 11/17/2022 EOSABS 0.35 11/17/2022 BASOSABS 0.03 11/17/2022 PLT 228 11/17/2022 NRBC 0.0 11/17/2022 No results found for this or any previous visit from the past 1 day. Assessment/Plan Principal Problem: Acute on chronic systolic congestive heart failure (CMS/HCC) Assessment: 1/Acute on chronic systolic congestive heart failure, HFrEF with EF 20 to 25%. NYHA class III 2/paroxysmal atrial fibrillation on anticoagulation. Status post DC cardioversion in 10/24. 3/PFO with [id number] shunt. 4/hypertension, uncontrolled Plan: 1/continue GDMT with lisinopril 5 mg daily. We will switch metoprolol succinate to carvedilol 6.25 twice daily daily. Continue Farxiga 10 mg daily. 2/continue Lasix 40 mg daily, monitor ins and outs, daily weight, 2 L fluid restriction, 2 g sodium restriction. 3/will switch Eliquis 5 mg twice daily for high [id number] 2 heparin drip in preparation for lt heart cath. 4/patient will have left and right heart catheterization Saturday for ischemic evaluation.[facility]01-07-2023 NoteHospital Medicine Daily Progress Note - 11/17/2022 9:06 AM; Room: [address] [place] [address] Admission: 11/15/2022 12:31 PM; Length of stay: 2 days THE HOSPITALIST TEAM PREFERS TO USE [employer] FOR COMMUNICATION 7AM-7PM. IF I DO NOT RESPOND WITHIN 15 MINUTES, PLEASE PAGE ME/CALL THROUGH THE PHARMACY SCHEDULER. FROM 7PM-7AM, PLEASE PAGE [phone](COVR) Code Status: Full Code Discharge Destination: home Expected Discharge: 2-3 days Overview Patient is seen for evaluation and management of SOB. Subjective Patient with family at bedside. Denies chest pain, sob. He does not have as labored of breathing today. Appears in NAD. Encouraged patient to ambulate today. Physical Exam Visit Vitals BP 149/84 Pulse 94 Temp 37.1 ???C (98.8 ???F) Resp 18 Intake/Output Summary (Last 24 hours) at 11/17/2022 0906 Last data filed at 11/16/2022 2300 Gross per 24 hour Intake 460 ml Output 1950 ml Net -1490 ml Physical Exam Vitals and nursing note reviewed. Constitutional: General: He is not in acute distress. Appearance: Normal appearance. He is not ill-appearing. HENT: Head: Normocephalic and atraumatic. Right Ear: External ear normal. Left Ear: External ear normal. Nose: Nose normal. Mouth/Throat: Mouth: Mucous membranes are moist. Pharynx: Oropharynx is clear. Eyes: Extraocular Movements: Extraocular movements intact. Conjunctiva/sclera: Conjunctivae normal. Pupils: Pupils are equal, round, and reactive to light. Cardiovascular: Rate and Rhythm: Normal rate. Rhythm irregularly irregular. Pulses: Normal pulses. Heart sounds: Normal heart sounds. Pulmonary: Effort: Pulmonary effort is normal. No respiratory distress. Breath sounds: Examination of the right-lower field reveals rales. Examination of the left-lower field reveals rales. Rales present. No decreased breath sounds, wheezing or rhonchi. Abdominal: General: Bowel sounds are normal. There is no distension. Palpations: Abdomen is soft. Tenderness: There is no abdominal tenderness. Musculoskeletal: General: No swelling. Normal range of motion. Cervical back: Normal range of motion and neck supple. Right lower le+ Edema present. Left lower le+ Edema present. Skin: General: Skin is warm and dry. Capillary Refill: Capillary refill takes less than 2 seconds. Neurological: General: No focal deficit present. Mental Status: He is alert and oriented to person, place, and time. Mental status is at baseline. Psychiatric: Mood and Affect: Mood normal. Speech: Speech normal. Behavior: Behavior normal. Behavior is cooperative. Thought Content: Thought content normal. Estimated body mass index is 24.4 kg/m??? as calculated from the following: Height as of this encounter: 1.829 m (6'). Weight as of this encounter: 81.6 kg (179 lb 14.3 oz). Active Inpatient Problems Principal Problem: Acute on chronic systolic congestive heart failure (CMS/HCC) Assessment and Plan # Acute on chronic HFrEF (EF of 20%): # Positive stress test: # PFO per MOMO: # Afib on Eliquis: # Generalized weakness, likely 2/2 above: - Monitor I's and O's. Low-sodium diet. Fluid restriction. Daily weights. - Monitor renal function and electrolytes with diuresis. - Cardiology service consult, adjusting heart failure GDMT medications. Changing home metoprolol to carvedilol, will start . -continue IV lasix 40 mg daily -plan to switch Eliquis to heparin drip prior to right and left heart cath tentatively Saturday # IDDM: - continue Diabetic-male diet. -SSI and bedside glucose checks ACHS # Hypothyroidism: # GERD: - Resume home medications. VTE Prophylaxis: Eliquis Scheduled Meds apixaban, 5 mg, oral, BID atorvastatin, 20 mg, oral, Nightly buPROPion SR, 150 mg, oral, BID carvedilol, 6.25 mg, oral, BID dapagliflozin, 10 mg, oral, Daily furosemide, 40 mg, intravenous, Daily insulin aspart, 0-20 Units, subcutaneous, TID with meals And insulin aspart, 0-20 Units, subcutaneous, Nightly levothyroxine, 37.5 mcg, oral, Daily lisinopril, 5 mg, oral, Daily [Held by provider] metoprolol succinate XL, 50 mg, oral, Daily oxybutynin, 5 mg, oral, BID pantoprazole, 40 mg, oral, Daily Pertinent Investigations Hematology: Results from last 7 days Lab Units 11/17/22 0631 11/16/22 0418 11/15/22 1255 WBC AUTO 10*3/uL 7.26 8.23 7.18 HEMOGLOBIN g/dL 12.3* 12.1* 12.8* HEMATOCRIT % 38.3* 37.9* 40.2 MCV fL 85.5 85.9 85.9 PLATELETS AUTO 10*3/uL 228 224 245 INR -- -- 1.87* Chemistry: Results from last 7 days Lab Units 11/17/22 0631 11/16/22 1613 11/16/22 0418 11/15/22 1255 SODIUM mmol/L 138 -- 138 136 POTASSIUM mmol/L 4.1 -- 3.9 4.2 CHLORIDE mmol/L 105 -- 103 104 CO2 mmol/L 24 -- 27 22 BUN mg/dL 18 -- 20 20 CREATININE mg/dL 1.00 -- 1.07 1.05 GLUCOSE mg/dL 103* -- 149* 229* MAGNESIUM mg/dL 2.2 2.3 1.9 1.9 CALCIUM mg/dL 9.0 -- 9.1 9.3 No lab exists for component: AFIO2, APHT, APCOT, APOT, A (more content not included)...[facility]01-06-2023 NoteHospital Medicine Daily Progress Note - 11/16/2022 3:47 PM; Room: [address] [place] [address] Admission: 11/15/2022 12:31 PM; Length of stay: 1 days THE HOSPITALIST TEAM PREFERS TO USE [employer] FOR COMMUNICATION 7AM-7PM. IF I DO NOT RESPOND WITHIN 15 MINUTES, PLEASE PAGE ME/CALL THROUGH THE PHARMACY SCHEDULER. FROM 7PM-7AM, PLEASE PAGE [phone](COVR) Code Status: Full Code Discharge Destination: home Expected Discharge: 2-3 days Overview Patient is seen for evaluation and management of SOB. Subjective Patient in bed with at bedside. Denies chest pain, n/v/d, abdominal swelling. reports patient's BLE edema has improved significantly. Reports SOB improved. Physical Exam Visit Vitals BP 124/81 (BP Location: Right arm, Patient Position: Sitting) Pulse 79 Temp 36.4 ???C (97.5 ???F) (Axillary) Resp 16 Intake/Output Summary (Last 24 hours) at 11/16/2022 1547 Last data filed at 11/16/2022 1130 Gross per 24 hour Intake 460 ml Output 500 ml Net -40 ml Physical Exam Vitals and nursing note reviewed. Constitutional: General: He is not in acute distress. Appearance: Normal appearance. He is not ill-appearing. HENT: Head: Normocephalic and atraumatic. Right Ear: External ear normal. Left Ear: External ear normal. Nose: Nose normal. Mouth/Throat: Mouth: Mucous membranes are moist. Pharynx: Oropharynx is clear. Eyes: Extraocular Movements: Extraocular movements intact. Conjunctiva/sclera: Conjunctivae normal. Pupils: Pupils are equal, round, and reactive to light. Cardiovascular: Rate and Rhythm: Normal rate. Rhythm irregularly irregular. Pulses: Normal pulses. Heart sounds: Normal heart sounds. Pulmonary: Effort: Pulmonary effort is normal. No respiratory distress. Breath sounds: Normal breath sounds. No decreased breath sounds, wheezing, rhonchi or rales. Abdominal: General: Bowel sounds are normal. There is no distension. Palpations: Abdomen is soft. Tenderness: There is no abdominal tenderness. Musculoskeletal: General: No swelling. Normal range of motion. Cervical back: Normal range of motion and neck supple. Right lower le+ Edema present. Left lower le+ Edema present. Skin: General: Skin is warm and dry. Capillary Refill: Capillary refill takes less than 2 seconds. Neurological: General: No focal deficit present. Mental Status: He is alert and oriented to person, place, and time. Mental status is at baseline. Psychiatric: Mood and Affect: Mood normal. Speech: Speech normal. Behavior: Behavior normal. Behavior is cooperative. Thought Content: Thought content normal. Estimated body mass index is 24.4 kg/m??? as calculated from the following: Height as of this encounter: 1.829 m (6'). Weight as of this encounter: 81.6 kg (179 lb 14.3 oz). Active Inpatient Problems Principal Problem: Acute on chronic systolic congestive heart failure ([facility]) Assessment and Plan # Acute on chronic HFrEF (EF of 20%): # Positive stress test: # PFO per MOMO: # Afib on Eliquis: # Generalized weakness, likely 2/2 above: - Monitor I's and O's. Low-sodium diet. Fluid restriction. Daily weights. - Monitor renal function and electrolytes with diuresis. - Cardiology service consult, adjusting heart failure GDMT medications. Changing home metoprolol to carvedilol, will start Farxiga. -continue IV lasix 40 mg daily -plan to switch Eliquis to heparin drip prior to right and left heart cath tentatively Saturday # IDDM: - continue Diabetic-male diet. -SSI and bedside glucose checks ACHS # Hypothyroidism: # GERD: - Resume home medications. VTE Prophylaxis: Eliquis Scheduled Meds apixaban, 5 mg, oral, BID atorvastatin, 20 mg, oral, Nightly buPROPion SR, 150 mg, oral, BID carvedilol, 6.25 mg, oral, BID dapagliflozin, 10 mg, oral, Daily furosemide, 40 mg, intravenous, Daily insulin aspart, 0-20 Units, subcutaneous, TID with meals And insulin aspart, 0-20 Units, subcutaneous, Nightly levothyroxine, 37.5 mcg, oral, Daily lisinopril, 5 mg, oral, Daily [Held by provider] metoprolol succinate XL, 50 mg, oral, Daily oxybutynin, 5 mg, oral, BID pantoprazole, 40 mg, oral, Daily Pertinent Investigations Hematology: Results from last 7 days Lab Units 11/16/22 0418 11/15/22 1255 WBC AUTO 10*3/uL 8.23 7.18 HEMOGLOBIN g/dL 12.1* 12.8* HEMATOCRIT % 37.9* 40.2 MCV fL 85.9 85.9 PLATELETS AUTO 10*3/uL 224 245 INR -- 1.87* Chemistry: Results from last 7 days Lab Units 11/16/22 0418 11/15/22 1255 SODIUM mmol/L 138 136 POTASSIUM mmol/L 3.9 4.2 CHLORIDE mmol/L 103 104 CO2 mmol/L 27 22 BUN mg/dL 20 20 CREATININE mg/dL 1.07 1.05 GLUCOSE mg/dL 149* 229* MAGNESIUM mg/dL 1.9 1.9 CALCIUM mg/dL 9.1 9.3 No lab exists for component: AFIO2, APHT, APCOT, APOT, ATCO2, CK, ALB, IBILI Results from last 7 days Lab Units 11/16/22 1216 11/16/22 0801 11/15/22 2346 11/15/22 1818 POCT GLUCOSE mg/dL 233* 121* 144* 268* (more content not included)...[facility]01-06-2023 Note Attestation signed by Charlotte Mast PharmD at 11/16/2022 1:38 PM Gadiel Liang completed heart failure education. Disease state, signs and symptoms of heart failure, diet/lifestyle, and when to seek medical attention were discussed along with medications and their dose, directions, and side effects. Time spent providing education was 15 minutes. Thanks, Shelbi Roa, 11/16/22[facility] NotePt admitted to hospital for acute on chronic systolic HF; hx of HFrEF. Pt's most recent echo from 10/24/22 estimated EF 20-25%, which qualifies pt for cardiac rehab (CR) therapy. Pt will be given the benefits of CR as it relates to heart health once order is obtained. I will watch for updates and follow-up with pt, as appropriate. Gayle Fan, ANDREIN marine diesel mechanic Outpatient Coordinator Cardiac RehabUnDayton [facility]01-05-2023 NoteHospital Medicine History and Physical 11/15/2022 3:48 PM THE HOSPITALIST TEAM PREFERS TO USE [employer] FOR COMMUNICATION 7AM-7PM. IF I DO NOT RESPOND WITHIN 15 MINUTES, PLEASE PAGE ME/CALL THROUGH THE PHARMACY SCHEDULER. FROM 7PM-7AM, PLEASE PAGE [phone](COVR) Chief Complaint Chief Complaint Patient presents with Shortness of Breath Dec the it all started with the Sob History of Present Illness Gadiel Liang is an 72 y.o. male with PMH significant for PAF on eliquis, chronic HFrEF (EF of 20%), PFO per MOMO, IDDM, hypothyroidism, and GERD who presents to [facility] ED with chief complaint of shortness of breath . Dyspnea has been present for the past several weeks and progressively worsening. Patient also reports significant generalized fatigue and weakness that is worsening with the dyspnea. He also reports worsening BLE edema. Patient recently underwent DC cardioversion on 10/24 at [facility] that was successful. He does not know when he converted back to A. Fib. About 1 week ago, he had a positive outpatient stress test. He was recently seen at the [facility] ED on 11/10 for the same symptoms of today. He was given IV diuresis and discharged from ED at that time. In the ED, he was found to have BNP of 1500 with normal first troponin. Vital signs are stable and he is on room air. He was given 20 mg IV lasix in ED. Review of System and Physical Exam Temp: [36.8 ???C (98.3 ???F)] 36.8 ???C (98.3 ???F) Heart Rate: [49-95] 95 Resp: [18-21] 21 BP: (145-150)/(75-100) 145/75 Physical Exam Vitals reviewed. Constitutional: General: He is not in acute distress. Appearance: He is not ill-appearing, toxic-appearing or diaphoretic. HENT: Mouth/Throat: Mouth: Mucous membranes are moist. Cardiovascular: Rate and Rhythm: Normal rate. Rhythm irregular. Pulses: Normal pulses. Heart sounds: Normal heart sounds. No murmur heard. Pulmonary: Effort: Pulmonary effort is normal. No respiratory distress. Breath sounds: Rales present. Abdominal: General: Bowel sounds are normal. Tenderness: There is no abdominal tenderness. There is no guarding or rebound. Musculoskeletal: Right lower le+ Pitting Edema present. Left lower le+ Pitting Edema present. Neurological: General: No focal deficit present. Mental Status: He is oriented to person, place, and time. Mental status is at baseline. Review of Systems Constitutional: Positive for activity change (decreased) and fatigue. Negative for appetite change, chills, diaphoresis and fever. HENT: Negative. Eyes: Negative for visual disturbance. Respiratory: Positive for shortness of breath. Negative for cough and wheezing. Cardiovascular: Positive for leg swelling. Negative for chest pain and palpitations. Gastrointestinal: Negative for abdominal pain, diarrhea, nausea and vomiting. Endocrine: Negative. Genitourinary: Negative. Musculoskeletal: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
[2023-12-16 10:53] LABS: Basophils Percent Auto 0.7 % (0.2-2.0); Eosinophils Absolute Auto 0.2 10^3/uL (0.0-0.7); Eosinophils Percent Auto 4.1 % (0.9-7.0); Hematocrit 43.6 % (42.0-54.0); Hemoglobin 13.8 g/dL (14.0-18.0); Immature Granulocytes Abs Auto 0.06 10^3/uL (0.00-0.03); Lymphocytes Absolute Auto 1.3 10^3/uL (1.2-3.8); Lymphocytes Percent Auto 22.6 % (20.5-60.0); Mean Corpuscular HGB Conc 31.7 g/dL (29.9-35.2); Mean Corpuscular Hemoglobin 28.2 pg (25.9-34.0); Mean Platelet Volume 9.8 fL (9.5-13.5); Monocytes Absolute Auto 0.5 10^3/uL (0.3-0.8); Monocytes Percent Auto 8.7 % (1.7-12.0); Neutrophils Absolute Auto 3.7 10^3/uL (1.4-6.5); Neutrophils Percent Auto 62.9 % (43.0-75.0); Platelet Count 236 10^3/uL (150-450); Red Cell Distribution Width 13.6 % (11.0-15.0); White Blood Count 5.9 10^3/uL (4.0-11.0)
[2023-12-16 11:11] LABS: Estimated Average Glucose 229 mg/dL; Glycohemoglobin A1C 9.6 % (4.5-6.2)
[2023-12-16 11:29] LABS: Alanine Aminotransferase 19 U/L (16-63); Albumin Level 3.8 g/dL (3.4-5.0); Alkaline Phosphatase 55 U/L (46-116); Anion Gap 13.2; Aspartate Amino Transferase 12 U/L (15-37); BUN Creatinine Ratio 13.3; Bilirubin Total 1.5 mg/dL (0.2-1.0); Calcium 9.2 mg/dL (8.5-10.1); Carbon Dioxide 28.8 mmol/L (21.0-32.0); Chloride 105 mmol/L (98-107); Chol HDL Ratio 3.3; Cholesterol 174 mg/dL (<=200); Estimated GFR (African America >60 (>=60); Estimated GFR (Non-African Ame >60 (>=60); Globulin 3.9 g/dL; Glucose 176 mg/dL (74-106); HDL Cholesterol 53 mg/dL (40-60); LDL Cholesterol Calculated 98.8 mg/dL; Sodium 143 mmol/L (136-145); Total Protein 7.7 g/dL (6.4-8.2); Triglycerides 111 mg/dL (<=150); VLDL CHOLESTEROL 22.2 mg/dL
[2023-12-16 18:44] LABS: Prostate Specific Antigen Scrn 0.76 ng/mL (<=4.00)
== END 2023-12-16 09:34 | disposition home or self-care (01) ==
LOC: LAB 09:40
PROVIDERS: PCP Family Medicine; Visit Provider Family Medicine
DX: E11.65 Type 2 diabetes mellitus with hyperglycemia (principal); E78.2 Mixed hyperlipidemia; Z12.5 Encounter for screening for malignant neoplasm of prostate
CPT/HCPCS: 36415; 80053; 80061; 83036; 85025; G0103

== ENCOUNTER 2024-03-07 21:03 | Emergency (ER) | payer MEDICARE, SELFPAY ==
[2024-03-07] VITALS (15 sets, daily range): BP systolic 129–143; BP diastolic 65–82; PULSE 68–78; TEMP 37.4; O2SAT 93–97; BMI 26.2
--- OUTSIDE RECORDS SUMMARY | 2024-03-07 21:12 | XMS_ITS | CCD ---
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 Cabrera Dupont Primary Care Unavailab le Maryoglleticia, Dr. Mandie Piper Attending Syed Hernandezoglu, Dr. Mandie Piper Referring Unavai lable Self, Referral Referring Unavailable Hatipoglu, Dr. Mandie Piper Attending Syed Dupont, Dr. Cabrera Gaspar Primary Care Unavailab le QUIROZ, DR JOSELUIS Austin Primary Care Unavailable YEARTYTONY Attending Unavailable YEARTYTONY Admitting Unavailable MISC, DR LOZADA Attending Unavailable GARFIELD, DR GEORGIE Erwin Consulting Unavailable QUIROZ, DR JOSELUIS Austin Primary Care Unavailable MISC, DR LOZADA Admitting Unavailable MISC, DR LOZADA Consulting Unavailable ELICEO ROSENBERG Admitting Unavailable QUIROZ, DR JOSELUIS Austin Primary Care Unavailable SHAKIRAELICEO Shepherd Attending Unavailable SHAKIRAELICEO Consulting Unavailable MAUREENJANEE Consulting Unavailable MAUREEN, JANEE Admitting Unavailable MAUREEN, JANEE Attending Unavailable QUIROZ, DR JOSELUIS Austin Primary Care Unavailable QUIROZ, DR JOSELUIS Austin Consulting Unavailable QUIROZ, DR JOSELUIS Austin Primary Care Unavailable MISC, DR LOZADA Attending Unavailable MISC, DR LOZADA Admitting Unavailable QUIROZ, DR JOSELUIS Austin Primary Care Unavailable QUIROZ, DR JOSELUIS Austin Attending Unavailable QUIROZ, DR JOSELUIS Austin Admitting Unavailable ZIEBER, DR RAPHAEL Dacosta Consulting Unavailable PAY ., DR CARDOSO Attending Unavailable QUIROZ, DR JOSELUIS Austin Primary Care Unavailable PAY ., DR CARDOSO Admitting Unavailable PAY ., DR CARDOSO Consulting Unavailable HAY ., DR ANGEL Admitting Unavailable QUIROZ, DR JOSELUIS E Primary Care Unavailable HAY ., DR ANGEL Attending Unavailable ALEJANDRO ., DR ANGEL Consulting Unavailable RY [place] Consulting Unavailable JESÚS BOLAÑOS Attending Unavailable SHAKIRA, ELICEO Attending Unavailable MAMI, JESÚS Attending Unavailable SHAKIRA, ELICEO Admitting Unavailable SHAKIRA, ELICEO Attending Unavailable JACOB, DIDI Admitting Unavailable MEGANMARY Attending Unavailable SHAKIRA, ELICEO Admitting Unavailable SHAKIRA, ELICEO Attending Unavailable TONY ADHIKARI Attending Unavailable MAMI, JESÚS Attending Unavailable MAMI, JESÚS Attending Unavailable SHAKIRA, ELICEO Referring Unavailable SHAKIRA, ELICEO Referring Unavailable SHAKIRA, ELICEO Referring Unavailable SHAKIRA, ELICEO Referring Unavailable SHAKIRA, ELICEO Attending Unavailable SHAKIRA, ELICEO Referring Unavailable MCKOY, LORY Referring Unavailable MCKOY, LORY Referring Unavailable JANEE REDDY Attending Unavailable Joseluis Quiroz Unavailable Allergies Allergy Classification Reported Allergen(s) Allergy Type Date of Onset Reaction(s) Facility (2 sources) Lisinopril; Translations: [LISINOPRIL] Drug Allergy 04-28-2015 Other: See Comments [facility] Work Phone: Medications Current Medications Medication Drug Class(es) Dates Sig (Normalized) Sig (Original) Amiodarone (1 source) Antiarrhythmic Amiodarone Activ e apixaban 5 mg oral tablet (7 sources) Factor Xa Inhibitor take 1 tablet by mouth every twelve hours Eliquis 5 MG 1 tablet twice a day for 90 days Active Ascorbic Acid / Beta Carotene / cuprous oxide / Lutein / sodium selenate / Vitamin E / Zinc Oxide (20 sources) Vitamin C Start: 07-12-2022 Ocuvite Adult 50+ Ocuvite Adult 50+( Oral 1 capusle every other day ) Active -Hx Entry Oral every other day for 0 *Pick strength-form from [employer] for eRX* Jul, Active Ocuvite TABS WYATT E 1 TABLET DAILY. Quantity: 0 Refills: 0 Ordered: 30-Nov-2020 DO Active BD Pen Needle Mini U/F (7 sources) BD Pen Needle Mi ni U/F [...] Oral Once a day *Pick strength-form from [facility] for eRX* Jul, Active Start: 07-23-2022 take 1 tablet by woody twice daily buPROPion HCl ER (XL) 150MG buPROPion HCl ER (XL) 150MG, 1 (one) Tablet Tablet two times daily # 180, 07/23/2022, Ref. x1. Active Oral two times daily for 0 *Pick strength-form from [facility] for eRX* Jul, Active Start: 04-13-2020 take 1 tablet by woody twice daily buPROPion SR (ZYBAN SR; WELLBUTRIN SR) 150 mg 12 hr tablet Take 1 tablet by mouth twice daily. 180 tablet 1 04/13/2020 Active take 1 tablet by woody twice daily buPROPion HCl ER (XL) 150 MG TAKE 1 TABLET BY MOUTH TWICE A DAY Active take 1 tablet by [facility] once daily Wellbutrin SR 150 MG Oral Tablet Extended Release 12 Hour TAKE 1 TABLET EVERY 12 HOURS DAILY. Quantity: 0 Refills: 0 Ordered: 30-Nov-2020 DO Active Comment on above: Take 1 tablet by woody twice daily. cabergoline 0.5 mg oral tablet (20 sources) Ergot Derivative Start: 04-13-20 Cabergoline 0.5MG Cabergoline( 0.5MG Oral every other day ) Active -Hx Entry Oral every other day for 0 *Pick strength-form from [facility] for eRX* Jul, Active Comment on above: Take one tablet ever y other day carvedilol 6.25 mg oral tablet (7 sources) alpha-Adrenergic Argelia, beta-Adrenergic Argelia take 1 tablet by mouth every twelve hours Carvedilol 6.25 MG 1 tablet Orally twice a day for 90 days Active Citracal Plus (5 sources) Citracal Plus Ac tive dapagliflozin 10 mg oral tablet (7 sources) Sodium-Glucose Cotransporter 2 Inhibitor take 1 tablet by mouth every twenty-four hours Farxiga 10 MG 1 tablet once a day Active escitalopram 10 mg oral tablet (6 sources) Serotonin Reuptake Inhibitor Start: 08-19-20 23 [...] once daily. lisinopril 5 mg oral tablet (7 sources) Angiotensin Converting Enzyme Inhibitor take 1 tablet by mouth every twenty-four hours Lisinopril 5 MG 1 tablet once a day for 90 days Active sildenafil 25 mg oral tablet (7 sources) Phosphodiesterase 5 Inhibitor Start: 07-12-20 22 take 1 tablet by mouth once daily Sildenafil Citrate 25MG Sildenafil Citrate 25MG, 1 (one) Tablet daily as directed # 10, 07/12/2022, Ref. x2. Active Oral daily as directed for 30 *Pick strength-form from [employer] for eRX* Jul, Active take 1 tablet by woody once daily as needed Sildenafil Citrate 50 MG 1 tablet as nee ded Orally daily as directed for 30 days *Pick strength-form from [employer] for eRX* Active spironolactone 25 mg oral tablet (7 sources) Aldosterone Antagonist Aldactone 25 MG 1/2 tablet once a day Active Testosterone (20 sources) Androgen Start: 07-12-2022 AndroGel 50 MG/5GM(1%) AndroGel( 50 MG/5GM(1%) Transdermal daily ) Active -Hx Entry Transdermal daily for 0 *Reorder from [employer] for eRx and Interaction Alerts* Jul, Active [...] oral tablet (20 sources) l-Thyroxine Start: 04-13-20 20 take 0.5 tablet by mouth once daily [...] (6 sources) Angiotensin Converting Enzyme Inhibitor Start: 2 take 1 capsule by mouth once daily Ramipril 5 MG Oral Capsule TAKE 1 CAPSULE ONCE DAILY. Quantity: 30 Refills: 11 Ordered: 10-Oct-2022 Mandie Osborne MD Start : 10-Oct-2022 Active Problems Active Problems Problem Classification Problem Date Documented Date Episodic/Chronic Abdominal pain (7 sources) Abdominal pain; Translations: [Unspecified abdominal pain] Episodic Anxiety disorders (10 sources) Anxiety; Translations: [Anxiety disorder, unspecified] Chronic [...] ESOPHAGITIS] Onset: 11-13-2022 Chronic Nausea and vomiting (7 sources) Nausea; Translations: [Nausea] Episodic Osteoarthritis (1 source) Unspecified osteoarthritis, unspecified site; Translations: [UNSPECIFIED OSTEOARTHRITIS UNS SITE] Onset: 11-13-2022 Chronic Other aftercare (7 sources) Long-term current use of insulin; Translations: [fitness consultant (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 insulin] Episodic Other and [...] Onset: 11-13-2022 Chronic Other male genital disorders (6 sources) Secondary erectile dysfunction; Translations: [Erectile dysfunction due to diseases classified elsewhere] Chronic Other male genital disorders (1 source) Erectile dysfunction due to diseases classified elsewhere Chronic Other nutritional; endocrine; and metabolic disorders (1 source) Hypercalcemia; Translations: [Hypercalcemia] Onset: 12-23-2012 12-23-2012 Chronic Other nutritional; endocrine; and metabolic disorders (7 sources) Loss of appetite; Translations: [Anorexia] Episodic Other nutritional; endocrine; and metabolic disorders (6 sources) Weight loss; Translations: [Abnormal weight loss] Episodic Other nutritional; endocrine; and metabolic disorders (1 source) Abnormal weight loss; Translations: [Weight loss] Episodic Other screening for suspected conditions [...] 11-13-2022 Episodic Other aftercare (1 source) Other 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 carpenter (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) drug therapy; Translations: [OTH DETENTION CURRENT DRUG THERAPY] Onset: 11-13-2022 Episodic Other aftercare (1 source) fitness consultant (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 oral hypoglycemic drugs; Translations: [BUNGY JUMP MASTER USE ORAL HYPOGLYCEMIC DX] Onset: 11-13-2022 Episodic Other aftercare (1 source) fitness consultant (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 insulin; Translations: [DETENTION CURRENT USE OF INSULIN] Onset: 11-13-2022 Episodic Other aftercare (1 source) fitness consultant (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 aspirin; Translations: [BUNGY JUMP MASTER CURRENT USE OF ASPIRIN] Onset: 10-17-2022 Episodic [...] Range Facility Office Visiton 07-30-2023 Follow-up visit [id number] Gadiel Liang 1950 M Date Provider Department Center 07/30/2023 JESÚS SIMPSON Family History Problem Relation Age [...] Paternal Grandmother Paternal Grandfather Other Level of Service:80873 DE OFFICE/OUTPATIENT ESTABLISHED MOD MDM 30-39 MIN Normal [facility] Follow-Upon 06-05-2023 Follow-Up [id number] Gadiel Liang 1950 Date Provider Department Center 06/05/2023 JESÚS SIMPSON Family [...] Paternal Grandmother Paternal Grandfather Other Level of Service:41623 DE OFFICE/OUTPATIENT ESTABLISHED MOD MDM 30-39 MIN Normal [facility] Telephoneon 05-30-2023 Telephone [id number] Gadiel Liang 1950 M Date Provider Department Center 05/30/2023 Farideh-MARLEY MORALES [facility] Family History Problem [...] Grandfather Paternal Grandmother Paternal Grandfather Other Normal [facility] Telephone [id number] GarthGadiel Austin 1950 Date Provider Department Center 05/30/20231986MONTSE MORALESISHA [facility] Family History Problem Relation Age of [...] Comments: 3 week post ablation f/u [Other] Normal [facility] Telephoneon 05-10-2023 Telephone [id number] GarthGadiel 1950 [facility] Provider Department Center 05/10/2023 FaridehMARLEY MORALES [facility] Family History Problem Relation Age of [...] Comments: week f/u post ablation [Other] Normal [facility] BASIC METABOLIC PANELon 06-2 Anion gap [Moles/Vol] 9 mmol/L Normal 7-20 [facility] Comment on above: Performed By: #### L [id number] #### [facility] ([facility]) [address] [place] [address] Calcium [Mass/Vol] 8.9 mg/dL Normal 8.6-10.3 [facility] Comment on above: Performed By: #### L [id number] #### [facility] ([facility]) [address] [place] [address] Chloride [Moles/Vol] 104 mmol/L Normal 98-107 [facility] Comment on above: Performed By: #### L [id number] #### [facility] ([facility]) [address] [place] [address] CO2 [Moles/Vol] 28 mmol/L Normal 21-31 [facility] Comment on above: Performed By: #### L [id number] #### [facility] ([facility]) [address] [place] [address] Creatinine [Mass/Vol] 0.79 mg/dL Normal 0.70-1.30 [facility] Comment on above: Performed By: #### L [id number] #### [facility] ([facility]) [address] [place] [address] GLOMERULAR FILTRATION RATE ML/MIN/1.73 SQ M.PREDICTED 95.0 mL/min/1.73m*2 Normal >60.0 [place] [facility] Comment on above: Result Comment: [facility]???s estimated glomerular filtration rate (eGFR) will [...] individuals. Performed By: #### L [id number] #### [facility] ([facility]) [address] [place] [address] Glucose [Mass/Vol] 176 mg/dL High 70-100 [facility] Comment on above: Performed By: #### L [id number] #### [facility] ([facility]) [address] [place] [address] Potassium [Moles/Vol] 3.6 mmol/L Normal 3.5-5.1 [facility] Comment on above: Performed By: #### L [id number] #### [facility] ([facility]) [address] [place] [address] Sodium [Moles/Vol] 137 mmol/L Normal 136-145 [facility] Comment on above: Performed By: #### L [id number] #### [facility] ([facility]) [address] [place] [address] Urea nitrogen [Mass/Vol] 11 mg/dL Normal 7-25 [facility] Comment on above: Performed By: #### L [id number] #### [facility] ([facility]) [address] [place] [address] UREA NITROGEN/CREATININE (MASS RATIO) IN SER/PLAS 13.9 Normal [facility] Comment on above: Performed By: #### L [id number] #### [facility] ([facility]) [address] [place] [address] CBCon 05-03-2023 Erythrocyte distribution width (RBC) [Ratio] 12.8 % Normal 11.5-15.0 [facility] Comment on above: Performed By: #### L [id number] #### [facility] ([facility]) [address] [facility] [facility] [address] ERYTHROCYTE MEAN CORPUSCULAR HEMOGLOBIN CONCENTRATION (G/DL) BY AUTOMATED 32.1 g/dL Normal 32.0-35.0 [facility] Comment on above: Performed By: #### L [id number] #### [facility] ([facility]) [address] [place] [address] Hematocrit (Bld) [Volume fraction] 39.3 % Normal 39.0-55.0 [facility] Comment on above: Performed By: #### L [id number] #### [facility] ([facility]) [address] [place] [address] Hemoglobin (Bld) [Mass/Vol] 12.6 g/dL Low 13.0-17.0 [facility] Comment on above: Performed By: #### L [id number] #### [facility] ([facility]) [address] [place] [address] MCH (RBC) [Entitic mass] 29.9 pg Normal 27.0-33.0 [facility] Comment on above: Performed By: #### L [id number] #### [facility] ([facility]) [address] [place] [address] MCV (RBC) [Entitic vol] 93.3 fL Normal 82.0-98.0 [facility] Comment on above: Performed By: #### L [id number] #### [facility] ([facility]) [address] [place] [address] PLATELETS (10*3/UL) IN BLOOD AUTOMATED COUNT 179 10*3/uL Normal 150-400 [facility] Comment on above: Performed By: #### L [id number] #### [facility] ([facility]) [address] [place] [address] RBC (Bld) [#/Vol] 4.21 10*6/uL Normal 4.20-5.70 [facility] Comment on above: Performed By: #### L [id number] #### [facility] ([facility]) [address] [place] [address] WBC (Bld) [#/Vol] 8.32 10*3/uL Normal 4.00-10.60 [facility] Comment on above: Performed By: #### L [id number] #### [facility] [place]) [place] [address] DSon 05-03-2023 DS -- Attestation signed by [...] Your Medications These medications were sent to [facility]/pharmacy #[id number] OF [address] [address] famotidine 20 mg tablet sucralfate 1 gram [...] II, HTN, vasovagal syncope who presented to [facility] for an elective a.fib ablation on 05/02/2023. [...] he will (more content not included)... Normal [facility] POCT GLUCOSE METER UNSOLICIT ED RESULTSon 05-03-2023 Glucose [Mass/Vol] 289 mg/dL High 70-105 [facility] Comment on above: Order Comment: Waive d Testing in the ED is performed under the ED CLIA certificate #[id number]. Result Comment: libia dou2 Performed By: #### L [id number] #### [facility] (BEAKER) [address] [place] [address] Glucose [Mass/Vol] 176 mg/dL High 70-105 [facility] Comment on above: Order Comment: Waive d Testing in the ED is performed under the ED CLIA certificate #[id number]. Result Comment: libia dou2 Performed By: #### L [id number] ####[facility] (BEAKER)[address] [place] [address] HPon 05-02-2023 HP -- Attestation signed by [...] are no changes to the H&P. Normal [facility] NURSNOTEon 05-02-2023 LENNY went home for t he evening. Will call with room number when patient gets a bed. Normal [facility] POCT GLUCOSE METER UNSOLICIT ED RESULTSon 05-02-2023 Glucose [Mass/Vol] 125 mg/dL High 70-105 [facility] Comment on above: Order Comment: Waive d Testing in the ED is performed under the ED CLIA certificate #[id number]. Result Comment: ab [email or web address] Performed By: #### L [id number] #### [facility] (REGGIE) [address] [place] [address] Glucose [Mass/Vol] 113 mg/dL High 70-105 [facility] Comment on above: Order Comment: Waive d Testing in the ED is performed under the ED CLIA certificate #[id number]. Result Comment: lwag enh Performed By: #### L [id number] #### [facility] ([facility]) [address] [place] [address] Glucose [Mass/Vol] 108 mg/dL High 70-105 [facility] Comment on above: Order Comment: Waive d Testing in the ED is performed under the ED CLIA certificate #[id number]. Result Comment: mwer nert Performed By: #### L [id number] #### [facility] ([facility]) [address] [place] [address] Glucose [Mass/Vol] 198 mg/dL High 70-105 [facility] Comment on above: Order Comment: Waive d Testing in the ED is performed under the ED CLIA certificate #[id number]. Result Comment: aepp ink Performed By: #### L [id number] #### [facility] ([facility]) [address] [place] [address] PROTIME-INRon 05-02-2023 INR IN PPP BY COAGULATION ASSAY 0.98 Normal 0.90-1.10 [facility] Comment on above: Result Comment: ACCC [...] RANGE. CHEST 1995;108:[id number]. Performed By: #### L [id number] #### [facility] ([facility]GGIE) [address] [place] [address] PROTHROMBIN TIME (PT) IN PPP BY COAGULATION ASSAY 12.9 Seconds Normal 12.3-14.8 [facility] Comment on above: Performed By: #### L [id number] #### [facility] (REGGIE) [address] [address] HPon 04-30-2023 [facility] Electrophysiology Consult Note [facility] Date of Telehealth Visit: 04/30/23 The patient was notified that using 3rd democrat telecommunication application (e.g., [employer]) is not HIPPA compliant and may carry some privacy risks. Yes The visit was conducted [id number] with the use of audio and video technology Rogerio. between patient and provider for a virtual [...] on 10/15 and he went to the [facility] emergency department was found to be in [...] 3 Lantus Solost (more content not included)... [facility] Telemedicineon 04-30-2023 Telemedicine [id number] Gadiel Liang 1950 M Date Provider Department Center 04/30/2023 ELICEO [facility] Family History Problem Relation Age of [...] Paternal Grandmother Paternal Grandfather Other Level of Service:13738 DE PHYS/QHP TELEPHONE EVALUATION 11-20 MIN [facility] [id number] 04-26-2023 [id number] Nothing to eat or drink after midnight Hold MVI, Herbal Supplements, NSAIDS x 7 days Hold the prescription meds we spoke about: ELIQUIS 48 HRS PRIOR TO PROCEDURE Take the meds we spoke about w/a sip of water DOS: LANTUS, SYNTHROID, AMIODARONE, COREG, WELBUTRIN, NEXIUM [facility] B-TYPE NATRIURETIC PEPTIDEon 04-26-2023 Natriuretic peptide B (Bld) [Mass/Vol] 87 pg/mL Normal 0-100 [facility] Comment on above: Performed By: #### L [id number] #### [facility] ([facility]) [address] [place] [address] CBC WITH AUTO DIFFERENTIALon 04-26-2023 Basophils (Bld) [#/Vol] 0.04 10*3/uL Normal 0.00-0.20 [facility] Comment on above: Performed By: #### L [id number] #### [facility] ([facility]) [address] [place] [address] Basophils/100 WBC (Bld) 0.6 % Normal 0.0-1.0 [facility] Comment on above: Performed By: #### L [id number] #### [facility] ([facility]) [address] [place] [address] Eosinophils (Bld) [#/Vol] 0.21 10*3/uL Normal 0.00-0.50 [facility] Comment on above: Performed By: #### L [id number] #### [facility] ([facility]) [address] [place] [address] Eosinophils/100 WBC (Bld) 3.2 % Normal 0.0-6.0 [facility] Comment on above: Performed By: #### L [id number] #### [facility] ([facility]) [address] [place] [address] Erythrocyte distribution width (RBC) [Ratio] 13.2 % Normal 11.5-15.0 [facility] Comment on above: Performed By: #### L [id number] #### [facility] ([facility]) [address] [place] [address] ERYTHROCYTE MEAN CORPUSCULAR HEMOGLOBIN CONCENTRATION (G/DL) BY AUTOMATED 33.6 g/dL Normal 32.0-35.0 [facility] Comment on above: Performed By: #### L [id number] #### [facility] ([facility]) [address] [place] [address] Hematocrit (Bld) [Volume fraction] 39.9 % Normal 39.0-55.0 [facility] Comment on above: Performed By: #### L [id number] #### [facility] (BEAKER) [address] [place] [address] Hemoglobin (Bld) [Mass/Vol] 13.4 g/dL Normal 13.0-17.0 [facility] Comment on above: Performed By: #### L [id number] #### [facility] (BEAKER) [address] [place] [address] Immature granulocytes (Bld) [#/Vol] 0.09 10*3/uL Normal 0.00-0.20 [facility] Comment on above: Performed By: #### L [id number] #### [facility] (BEAKER) [address] [place] [address] Immature granulocytes/100 WBC (Bld) 1.4 % High 0.0-1.0 [facility] Comment on above: Performed By: #### L [id number] #### [facility] (BEAKER) [address] [place] [address] Lymphocytes (Bld) [#/Vol] 1.30 10*3/uL Normal 1.20-4.00 [facility] Comment on above: Performed By: #### L [id number] #### [facility] (BEAKER) [address] [place] [address] Lymphocytes/100 WBC (Bld) 19.9 % Low 20.0-45.0 [facility] Comment on above: Performed By: #### L [id number] #### [facility] (BEAKER) [address] [place] [address] MCH (RBC) [Entitic mass] 30.8 pg Normal 27.0-33.0 [facility] Comment on above: Performed By: #### L [id number] #### [facility] (BEAKER) [address] [place] [address] MCV (RBC) [Entitic vol] 91.7 fL Normal 82.0-98.0 [facility] Comment on above: Performed By: #### L [id number] #### [facility] ([facility]) [address] [place] [address] Monocytes (Bld) [#/Vol] 0.77 10*3/uL Normal 0.10-1.00 [facility] Comment on above: Performed By: #### L [id number] #### [facility] ([facility]) [address] [place] [address] Monocytes/100 WBC (Bld) 11.8 % Normal 5.0-12.0 [facility] Comment on above: Performed By: #### L [id number] #### [facility] ([facility]) [address] [place] [address] Neutrophils (Bld) [#/Vol] 4.12 10*3/uL Normal 1.60-7.60 [facility] Comment on above: Performed By: #### L [id number] #### [facility] ([facility]) [address] [place] [address] Neutrophils/100 WBC (Bld) 63.1 % Normal 40.0-72.0 [facility] Comment on above: Performed By: #### L [id number] #### [facility] ([facility]) [address] [place] [address] NRBC (PER 100 WBCS) BY AUTOMATED COUNT 0.0 % Normal 0 [facility] Comment on above: Performed By: #### L [id number] #### [facility] ([facility]) [address] [place] [address] PLATELETS (10*3/UL) IN BLOOD AUTOMATED COUNT 183 10*3/uL Normal 150-400 [facility] Comment on above: Performed By: #### L [id number] #### [facility] ([facility]) [address] [place] [address] RBC (Bld) [#/Vol] 4.35 10*6/uL Normal 4.20-5.70 [facility] Comment on above: Performed By: #### L [id number] #### [facility] ([facility]) [address] [place] [address] WBC (Bld) [#/Vol] 6.53 10*3/uL Normal 4.00-10.60 [facility] Comment on above: Performed By: #### L [id number] #### [facility] ([facility]) [address] [place] [address] COMPREHENSIVE METABOLIC PANE Harlan 04-26-2023 Albumin [Mass/Vol] 4.1 g/dL Normal 3.5-5.7 [facility] Comment on above: Performed By: #### L [id number] ####[facility] ([facility])[address] [place] [address] ALP [Catalytic activity/Vol] 57 U/L Normal 34-104 [facility] Comment on above: Performed By: #### L [id number] ####[facility] ([facility])[address] [place] [address] ALT [Catalytic activity/Vol] 42 U/L Normal 7-52 [facility] Comment on above: Performed By: #### L [id number] ####[facility] ([facility])[address] [place] [address] Anion gap [Moles/Vol] 13 mmol/L Normal 7-20 [facility] Comment on above: Performed By: #### L [id number] ####[facility] ([facility])[address] [place] [address] AST [Catalytic activity/Vol] 29 U/L Normal 13-39 [facility] Comment on above: Performed By: #### L [id number] ####[facility] ([facility])[address] [place] [address] Bilirubin [Mass/Vol] 0.9 mg/dL Normal 0.3-1.0 [facility] Comment on above: Performed By: #### L [id number] ####[facility] ([facility])[address] [place] [address] Calcium [Mass/Vol] 9.2 mg/dL Normal 8.6-10.3 [facility] Comment on above: Performed By: #### L [id number] ####[facility] ([facility])[address] [place] [address] Chloride [Moles/Vol] 106 mmol/L Normal 98-107 [facility] Comment on above: Performed By: #### L [id number] ####[facility] ([facility])[address] [place] [address] CO2 [Moles/Vol] 23 mmol/L Normal 21-31 [facility] Comment on above: Performed By: #### L [id number] ####[facility] ([facility])[address] [place] [address] Creatinine [Mass/Vol] 1.11 mg/dL Normal 0.70-1.30 [facility] Comment on above: Performed By: #### L [id number] ####[facility] ([facility])[address] [place] [address] GLOMERULAR FILTRATION RATE ML/MIN/1.73 SQ M.PREDICTED 71.0 mL/min/1.73m*2 Normal >60.0 [facility] Comment on above: Result Comment: [facility]???s estimated glomerular filtration rate (eGFR) will [...] of individuals. Performed By: #### L [id number] ####[facility] ([facility])[address] [place] [address] Glucose [Mass/Vol] 224 mg/dL High 70-100 [facility] Comment on above: Performed By: #### L [id number] ####[facility] ([facility])[address] [place] [address] Potassium [Moles/Vol] 4.2 mmol/L Normal 3.5-5.1 [facility] Comment on above: Performed By: #### L [id number] ####[facility] ([facility])[address] [place] [address] Protein [Mass/Vol] 6.9 g/dL Normal 6.0-8.3 [facility] Comment on above: Performed By: #### L [id number] ####[facility] ([facility])[address] [place] [address] Sodium [Moles/Vol] 138 mmol/L Normal 136-145 [facility] Comment on above: Performed By: #### L [id number] ####[facility] ([facility])[address] [place] [address] Urea nitrogen [Mass/Vol] 22 mg/dL Normal 7-25 [facility] Comment on above: Performed By: #### L [id number] ####[facility] ([facility])[address] [place] [address] UREA NITROGEN/CREATININE (MASS RATIO) IN SER/PLAS 19.8 Normal [facility] Comment on above: Performed By: #### L [id number] ####[facility] ([facility])[address] [place] [address] MAGNESIUMon 04-26-2023 Magnesium [Mass/Vol] 1.9 mg/dL Normal 1.9-2.7 [facility] Comment on above: Performed By: #### L [id number] #### [facility] ([facility]) [address] [place] [address] Orders Onlyon 04-26-2023 Orders Only [id number] Gadiel Liang 1950 M Date Provider Department Center 04/26/2023 [id number], TONY RO [facility] Family History Problem Relation Age of [...] Grandfather Paternal Grandmother Paternal Grandfather Other Normal [facility] Orders Only [id number] Gadiel Liang 1950 [facility] Provider Department Center 04/26/2023 1596-JESÚS BOLAÑOS CARD [facility] Family History Problem Relation Age of [...] Grandfather Paternal Grandmother Paternal Grandfather Other Normal [facility] Orders Only [id number] Gadiel Liang 1950 M Date Provider Department Center 04/26/2023 120JANEE CANO CARD [facility] Family History Problem Relation [...] Grandfather Paternal Grandmother Paternal Grandfather Other Normal [facility] PROTIME-INRon 04-26-2023 INR IN PPP BY COAGULATION ASSAY 1.27 High 0.90-1.10 [facility] Comment on above: Result Comment: ACCC [...] CHEST 1995;108:231S-246S. Performed By: #### L [id number] ####[facility] ([facility])[address] [place] [address] PROTHROMBIN TIME (PT) IN PPP BY COAGULATION ASSAY 15.9 Seconds High 12.3-14.8 [facility] Comment on above: Performed By: #### L [id number] ####[facility] ([facility])[address] [place] [address] Prep for Procedureon 023 Prep for Procedure [id number] Gadiel Liang 1950 M Date Provider Department Center 03/29/20231986-[facility] Family History Problem Relation Age of Onset [...] Grandfather Paternal Grandmother Paternal Grandfather Other Normal [facility] Office Visiton 03-20-2023 Follow-up visit [id number] Gadiel Liang 1950 M Date Provider Department Center 03/20/2023 Uriah6-JESÚS BOLAÑOS CARD [facility] Family History Problem Relation Age of [...] Paternal Grandmother Paternal Grandfather Other Level of Service:78340 DE OFFICE/OUTPATIENT ESTABLISHED MOD MDM 30-39 MIN Reason for Visit and Comments: Atrial Fibrillation [80] Congestive Heart Failure [127] Normal [facility] ECHOCARDIO M/2D COMPLETEon 0 02-28-2023 ECHOCARDIO M/2D COMPLETE Patient: GADIEL LIANG Exam Date: 02/28/2023 : 1950 Gender:M Ordering : ELICEO ROSENBERG Admission #: [id number] Family : DR JOSELUIS QUIROZ M.D. Order #: [id number] CLICK HERE TO VIEW EXAM ECHOCARDIOGRAM REPORT [...] Left Atrium LA Volume Index (2D A2C): 99641 mm3 Left [facility] Systolic Dimension: 4.90 cm [...] Patten M.D. on 02/28/2023 at 20:13 Normal [facility] Office Visiton 01-29-2023 Follow-up visit [id number] Gadiel Liang 1950 [facility] Provider Department Center 01/29/2023 GemmaELICEO STONER [facility] Family History Problem Relation Age of [...] Paternal Grandmother Paternal Grandfather Other Level of Service:10552 DE OFFICE/OUTPATIENT NEW MODERATE MDM 45-59 MINUTES Reason for Visit and Comments: Follow-up [747953] - 2 month Normal [facility] Orders Onlyon 12-04-2022 Orders Only [id number] Gadiel Liang 1950 [facility] Provider Department Center 12/04/2022 TONY MARIEE [facility] Family History Problem Relation Age of [...] Grandfather Paternal Grandmother Paternal Grandfather Other Normal [facility] [facility] Follow-Upon 11-28-2022 Follow-Up [id number] Barber Liangeliseo Austin 1950 M Date Provider Department Center 11/28/2022 JANEE JAIME [facility] Problem Relation Age of [...] Paternal Grandmother Paternal Grandfather Other Level of Service:73865 DE TRANSJ CARE MGMT HIGH MDM F2F 7 WILFRID D DISCHARGE Reason for Visit and Comments: Congestive Heart Failure [127] Atrial Fibrillation [80] Normal [facility] PROF 14(COMP METB)on 023 Albumin [Mass/Vol] 3.7 g/dL Normal 3.4-5.0 [facility] Comment on above: Performed By: #### C MP #### [facility] [address] [place] [address] Dr. Esme Jackson Albumin/Globulin [Mass ratio] 1.1 {ratio} Normal [facility] Comment on above: Performed By: #### C MP #### [facility] [address] [address] [address] Esme Jackson ALP [Catalytic activity/Vol] 65 U/L Normal 46-116 [facility] Comment on above: Performed By: #### C MP #### [facility] [address] [address] [address] Esme Jackson ALT [Catalytic activity/Vol] 26 U/L Normal 16-63 [facility] Comment on above: Performed By: #### C MP #### [facility] [address] [place] [address] Dr. Esme Jackson Anion gap [Moles/Vol] 10.8 mmol/L Normal [facility] Comment on above: Performed By: #### C MP #### [facility] [address] [address] [address] Esme Jackson AST [Catalytic activity/Vol] 16 U/L Normal 15-37 [facility] Comment on above: Performed By: #### C MP #### [facility] [address] [address] [address] Esme Jackson Bilirubin [Mass/Vol] 1.1 mg/dL Critically high 0.2-1.0 [facility] Comment on above: Performed By: #### C MP #### [facility] [address] [address] [address] Esme Jackson Calcium [Mass/Vol] 9.4 mg/dL Normal 8.5-10.1 [facility] Comment on above: Performed By: #### C MP #### [facility] [address] [place] [address] Dr. Esme Jackson Chloride [Moles/Vol] 103 mmol/L Normal 98-107 [facility] Comment on above: Performed By: #### C MP #### [facility] [address] [address] [address] Esme Jackson CO2 [Moles/Vol] 28.5 mmol/L Normal 21.0-32.0 [facility] Comment on above: Performed By: #### C MP #### [facility] [address] [address] [address] Esme Jackson Creatinine [Mass/Vol] 1.07 mg/dL Normal 0.70-1.30 [facility] Comment on above: Performed By: #### C MP #### [facility] [address] [address] [address] Esme Jackson EGFR-AF CITIZEN OF [place] >60 Normal >=60 [facility] Comment on above: Performed By: #### C MP #### [facility] [address] [place] [address] Dr. Esme Jackson EGFR-NON AF CITIZEN OF [place] >60 Normal >=60 [facility] Comment on above: Performed By: #### C MP #### [facility] [address] [address] [address] Esme Jackson Globulin (S) [Mass/Vol] 3.5 g/dL Normal [facility] Comment on above: Performed By: #### C MP #### [facility] [address] [address] [address] Esme Jackson Glucose [Mass/Vol] 190 mg/dL Critically high 74-106 [facility] Comment on above: Performed By: #### C MP #### [facility] [address] [address] [address] Esme Jackson Potassium [Moles/Vol] 5.3 mmol/L Critically high 3.5-5.1 [facility] Comment on above: Performed By: #### C MP #### [facility] [address] [place] [address] Dr. Esme Jackson Protein [Mass/Vol] 7.2 g/dL Normal 6.4-8.2 [facility] Comment on above: Performed By: #### C MP #### [facility] [address] [place] [address] Dr. Esme Jackson Sodium [Moles/Vol] 137 mmol/L Normal 136-145 [facility] Comment on above: Performed By: #### C MP #### [facility] [address] [place] [address] Dr. Esme Jackson Urea nitrogen [Mass/Vol] 14.0 mg/dL Normal 7.0-18.0 [facility] Comment on above: Performed By: #### C MP #### [facility] [address] [place] [address] Dr. Esme Jackson Urea nitrogen/Creatinine [Mass ratio] 13.1 mg/mg Normal [facility] Comment on above: Performed By: #### C MP #### [facility] [address] [place] [address] Dr. Esme Jackson 36on 11-21-2022 36 Heart failure discharge call back Normal [facility] Telephoneon 11-21-2022 Telephone [id number] Gadiel Liang 1950 M Date Provider Department Center 11/21/2022 [facility] C[facility] Family History [...] 11/20/22 Call date: 11/21/22 Spoke with: Dia jones Follow-up date: 11/28/22 at 14:55 Home meds were reviewed with pt's . stated pt no longer takes the hydroxyzine and oxybutynin that is on his med list. She acknowledged the follow-up appt on 11/28. Per , pt is doing well and able to breathe now. Normal [facility] 30on 11-20-2022 30 The patient is [...] injury: Assess patient frequently for physical needs [place] fall precautions as indicated by assessment Educate patient/family on patient safety, including physical limitations Note: Pt free from falls, safety maintained with call light in reach. Normal [facility] APTTon 11-20-2022 ACTIVATED PARTIAL THROMBOPLASTIN TIME IN PPP BY COAGULATION ASSAY 83.5 Seconds Critically high 25.0-35.0 [facility] Comment on above: Result Comment: Clin ical significance of the PTT result is questionable in the presence of Heparin. Performed By: #### L [id number] ####[facility] ([facility])[address] [place] [address] BASIC METABOLIC PANELon 11-11 Anion gap [Moles/Vol] 11 mmol/L Normal 7-20 [facility] Comment on above: Performed By: #### L [id number] ####[facility] ([facility])[address] [place] [address] Calcium [Mass/Vol] 9.0 mg/dL Normal 8.6-10.3 [facility] Comment on above: Performed By: #### L [id number] ####[facility] ([facility])[address] [place] [address] Chloride [Moles/Vol] 101 mmol/L Normal 98-107 [facility] Comment on above: Performed By: #### L [id number] ####[facility] ([facility])[address] [place] [address] CO2 [Moles/Vol] 26 mmol/L Normal 21-31 [facility] Comment on above: Performed By: #### L [id number] ####[facility] ([facility])[address] [place] [address] Creatinine [Mass/Vol] 1.13 mg/dL Normal 0.70-1.30 [facility] Comment on above: Performed By: #### L [id number] ####[facility] ([facility])[address] [place] [address] GLOMERULAR FILTRATION RATE ML/MIN/1.73 SQ M.PREDICTED 65.0 mL/min/1.73m*2 Normal >60.0 [facility] Comment on above: Result Comment: [facility]???s estimated glomerular filtration rate (eGFR) will [...] of individuals. Performed By: #### L [id number] ####[facility] ([facility])[address] [place] [address] Glucose [Mass/Vol] 135 mg/dL High 70-100 [facility] Comment on above: Performed By: #### L [id number] ####[facility] ([facility])[address] [address] Potassium [Moles/Vol] 4.1 mmol/L Normal 3.5-5.1 [facility] Comment on above: Performed By: #### L [id number] ####[facility] ([facility])[address] [place] [address] Sodium [Moles/Vol] 138 mmol/L Normal 136-145 [facility] Comment on above: Performed By: #### L [id number] ####[facility] ([facility])[address] [facility] [address] Urea nitrogen [Mass/Vol] 22 mg/dL Normal 7-25 [facility] Comment on above: Performed By: #### L [id number] ####[facility] ([facility])[address] [place] [address] UREA NITROGEN/CREATININE (MASS RATIO) IN SER/PLAS 19.47 Normal [facility] Comment on above: Performed By: #### L [id number] ####[facility] ([facility])[address] [place] [address] CBC WITH AUTO DIFFERENTIALon 11-20-2022 Basophils (Bld) [#/Vol] 0.03 10*3/uL Normal 0.00-0.20 [facility] Comment on above: Performed By: #### L [id number] #### [facility] ([facility]) [address] [place] [address] Basophils/100 WBC (Bld) 0.5 % Normal 0.0-1.0 [facility] Comment on above: Performed By: #### L [id number] #### [facility] ([facility]) [address] [place] [address] Eosinophils (Bld) [#/Vol] 0.23 10*3/uL Normal 0.00-0.50 [facility] Comment on above: Performed By: #### L [id number] #### [facility] ([facility]) [address] [place] [address] Eosinophils/100 WBC (Bld) 3.6 % Normal 0.0-6.0 [facility] Comment on above: Performed By: #### L [id number] #### [facility] ([facility]) [address] [place] [address] Erythrocyte distribution width (RBC) [Ratio] 14.8 % Normal 11.5-15.0 [facility] Comment on above: Performed By: #### L [id number] #### [facility] ([facility]) [address] [place] [address] ERYTHROCYTE MEAN CORPUSCULAR HEMOGLOBIN CONCENTRATION (G/DL) BY AUTOMATED 32.3 g/dL Normal 32.0-35.0 [facility] Comment on above: Performed By: #### L [id number] #### [facility] ([facility]) [address] [place] [address] Hematocrit (Bld) [Volume fraction] 40.9 % Normal 39.0-55.0 [facility] Comment on above: Performed By: #### L [id number] #### [facility] ([facility]) [address] [place] [address] Hemoglobin (Bld) [Mass/Vol] 13.2 g/dL Normal 13.0-17.0 [facility] Comment on above: Performed By: #### L [id number] #### [facility] ([facility]) [address] [place] [address] Immature granulocytes (Bld) [#/Vol] 0.01 10*3/uL Normal 0.00-0.20 [facility] Comment on above: Performed By: #### L [id number] #### [facility] ([facility]) [address] [place] [address] Immature granulocytes/100 WBC (Bld) 0.2 % Normal 0.0-1.0 [facility] Comment on above: Performed By: #### L [id number] #### [facility] ([facility]) [address] [place] [address] Lymphocytes (Bld) [#/Vol] 1.39 10*3/uL Normal 1.20-4.00 [facility] Comment on above: Performed By: #### L [id number] #### [facility] ([facility]) [address] [place] [address] Lymphocytes/100 WBC (Bld) 21.8 % Normal 20.0-45.0 [facility] Comment on above: Performed By: #### L [id number] #### [facility] ([facility]) [address] [place] [address] MCH (RBC) [Entitic mass] 27.8 pg Normal 27.0-33.0 [facility] Comment on above: Performed By: #### L [id number] #### [facility] ([facility]) [address] [place] [address] MCV (RBC) [Entitic vol] 86.3 fL Normal 82.0-98.0 [facility] Comment on above: Performed By: #### L [id number] #### [facility] ([facility]) [address] [place] [address] Monocytes (Bld) [#/Vol] 0.79 10*3/uL Normal 0.10-1.00 [facility] Comment on above: Performed By: #### L [id number] #### [facility] ([facility]) [address] [place] [address] Monocytes/100 WBC (Bld) 12.4 % High 5.0-12.0 [facility] Comment on above: Performed By: #### L [id number] #### [facility] ([facility]) [address] [place] [address] Neutrophils (Bld) [#/Vol] 3.93 10*3/uL Normal 1.60-7.60 [facility] Comment on above: Performed By: #### L [id number] #### [facility] ([facility]) [address] [place] [address] Neutrophils/100 WBC (Bld) 61.5 % Normal 40.0-72.0 [facility] Comment on above: Performed By: #### L [id number] #### [facility] ([facility]) [address] [place] [address] NRBC (PER 100 WBCS) BY AUTOMATED COUNT 0.0 % Normal 0.0-0.0 [facility] Comment on above: Performed By: #### L [id number] #### [facility] ([facility]) [address] [place] [address] PLATELETS (10*3/UL) IN BLOOD AUTOMATED COUNT 222 10*3/uL Normal 150-400 [facility] Comment on above: Performed By: #### L [id number] #### [facility] ([facility]) [address] [place] [address] RBC (Bld) [#/Vol] 4.74 10*6/uL Normal 4.20-5.70 [facility] Comment on above: Performed By: #### L [id number] #### [facility] ([facility]) [address] [place] [address] WBC (Bld) [#/Vol] 6.38 10*3/uL Normal 4.00-10.60 [facility] Comment on above: Performed By: #### L [id number] #### [facility] ([facility]) [address] [place] [address] HEPARIN LEVELon 11-20-2022 HEPARIN UNFRACTIONATED (U/ML) IN PPP BY CHROMOGENIC METHOD >1.00 Critically high 0.3-0.7 [facility] Comment on above: Result Comment: Flomot roxaban and Apixaban will interfere with the anti Xa assay used to monitor UFH and LMWH. Performed By: #### L [id number] ####[facility] ([facility])[address] [place] [address] MAGNESIUMon 11-20-2022 Magnesium [Mass/Vol] 2.4 mg/dL Normal 1.9-2.7 [facility] Comment on above: Performed By: #### L [id number] ####[facility] ([facility] [facility] [place] [address] POCT GLUCOSE METER UNSOLICIT ED RESULTSon 11-20-2022 Glucose [Mass/Vol] 194 mg/dL High 70-105 [facility] Comment on above: Result Comment: mtuc ker Performed By: #### L [id number] #### [facility] ([facility]) [address] [place] [address] Glucose [Mass/Vol] 140 mg/dL High 70-105 [facility] Comment on above: Result Comment: mtuc ker Performed By: #### L [id number] #### [facility] ([facility]) [address] [place] [address] 30on 11-19-2022 30 The patient is Moderately [...] the next 3 months Outcome: Progressing Normal [facility] APTTon 11-19-2022 ACTIVATED PARTIAL THROMBOPLASTIN TIME IN PPP BY COAGULATION ASSAY 90.3 Seconds Critically high 25.0-35.0 [facility] Comment on above: Result Comment: Clin ical significance of the PTT result is questionable in the presence of Heparin. Performed By: #### L [id number] ####[facility] ([facility])[address] [place] [address] BASIC METABOLIC PANELon Anion gap [Moles/Vol] 10 mmol/L Normal 7-20 [facility] Comment on above: Performed By: #### L [id number] #### [facility] ([facility]) [address] [place] [address] Calcium [Mass/Vol] 8.9 mg/dL Normal 8.6-10.3 [facility] Comment on above: Performed By: #### L [id number] #### [facility] ([facility]) [address] [place] [address] Chloride [Moles/Vol] 103 mmol/L Normal 98-107 [facility] Comment on above: Performed By: #### L [id number] #### [facility] ([facility]) [address] [facility] [place] [address] CO2 [Moles/Vol] 26 mmol/L Normal 21-31 [facility] Comment on above: Performed By: #### L [id number] #### [facility] ([facility]) [address] [place] [address] Creatinine [Mass/Vol] 1.13 mg/dL Normal 0.70-1.30 [facility] Comment on above: Performed By: #### L [id number] #### [facility] ([facility]) [address] [place] [address] GLOMERULAR FILTRATION RATE ML/MIN/1.73 SQ M.PREDICTED 65.0 mL/min/1.73m*2 Normal >60.0 [facility] Comment on above: Result Comment: [facility]???s estimated glomerular filtration rate (eGFR) will [...] group of individuals. Performed By: #### L [id number] #### [facility] ([facility]) [address] [place] [address] Glucose [Mass/Vol] 112 mg/dL High 70-100 [facility] Comment on above: Performed By: #### L [id number] #### [facility] ([facility]) [address] [place] [address] Potassium [Moles/Vol] 3.9 mmol/L Normal 3.5-5.1 [facility] Comment on above: Performed By: #### L [id number] #### [facility] ([facility]) [address] [place] [address] Sodium [Moles/Vol] 139 mmol/L Normal 136-145 [facility] Comment on above: Performed By: #### L [id number] #### [facility] ([facility]) [address] [place] [address] Urea nitrogen [Mass/Vol] 17 mg/dL Normal 7-25 [facility] Comment on above: Performed By: #### L [id number] #### [facility] ([facility]) [address] [place] [address] UREA NITROGEN/CREATININE (MASS RATIO) IN SER/PLAS 15.04 Normal [facility] Comment on above: Performed By: #### L [id number] #### [facility] ([facility]) [address] [place] [address] CBC WITH AUTO DIFFERENTIALon 11-19-2022 Basophils (Bld) [#/Vol] 0.03 10*3/uL Normal 0.00-0.20 [facility] Comment on above: Performed By: #### L [id number] #### [facility] ([facility]) [address] [place] [address] Basophils/100 WBC (Bld) 0.5 % Normal 0.0-1.0 [facility] Comment on above: Performed By: #### L [id number] #### [facility] ([facility]) [address] [place] [address] Eosinophils (Bld) [#/Vol] 0.24 10*3/uL Normal 0.00-0.50 [facility] Comment on above: Performed By: #### L [id number] #### [facility] ([facility]) [address] [place] [address] Eosinophils/100 WBC (Bld) 3.8 % Normal 0.0-6.0 [facility] Comment on above: Performed By: #### L [id number] #### [facility] ([facility]) [address] [place] [address] Erythrocyte distribution width (RBC) [Ratio] 14.8 % Normal 11.5-15.0 [facility] Comment on above: Performed By: #### L [id number] #### [facility] ([facility]) [address] [facility] [place] [address] ERYTHROCYTE MEAN CORPUSCULAR HEMOGLOBIN CONCENTRATION (G/DL) BY AUTOMATED 32.5 g/dL Normal 32.0-35.0 [facility] Comment on above: Performed By: #### L [id number] #### [facility] ([facility]) [address] [place] [address] Hematocrit (Bld) [Volume fraction] 39.1 % Normal 39.0-55.0 [facility] Comment on above: Performed By: #### L [id number] #### [facility] ([facility]) [address] [place] [address] Hemoglobin (Bld) [Mass/Vol] 12.7 g/dL Low 13.0-17.0 [facility] Comment on above: Performed By: #### L [id number] #### [facility] ([facility]) [address] [place] [address] Immature granulocytes (Bld) [#/Vol] 0.03 10*3/uL Normal 0.00-0.20 [facility] Comment on above: Performed By: #### L [id number] #### [facility] ([facility]) [address] [place] [address] Immature granulocytes/100 WBC (Bld) 0.5 % Normal 0.0-1.0 [facility] Comment on above: Performed By: #### L [id number] #### [facility] ([facility]) [address] [place] [address] Lymphocytes (Bld) [#/Vol] 1.62 10*3/uL Normal 1.20-4.00 [facility] Comment on above: Performed By: #### L [id number] #### [facility] ([facility]) [address] [facility] [place] [address] Lymphocytes/100 WBC (Bld) 25.7 % Normal 20.0-45.0 [facility] Comment on above: Performed By: #### L [id number] #### [facility] ([facility]) [address] [facility] [place] [address] MCH (RBC) [Entitic mass] 28.0 pg Normal 27.0-33.0 [facility] Comment on above: Performed By: #### L [id number] #### [facility] ([facility]) [address] [place] [address] MCV (RBC) [Entitic vol] 86.3 fL Normal 82.0-98.0 [facility] Comment on above: Performed By: #### L [id number] #### [facility] ([facility]) [address] [place] [address] Monocytes (Bld) [#/Vol] 0.73 10*3/uL Normal 0.10-1.00 [facility] Comment on above: Performed By: #### L [id number] #### [facility] ([facility]) [address] [place] [address] Monocytes/100 WBC (Bld) 11.6 % Normal 5.0-12.0 [facility] Comment on above: Performed By: #### L [id number] #### [facility] ([facility]) [address] [place] [address] Neutrophils (Bld) [#/Vol] 3.66 10*3/uL Normal 1.60-7.60 [facility] Comment on above: Performed By: #### L [id number] #### [facility] ([facility]) [address] [place] [address] Neutrophils/100 WBC (Bld) 57.9 % Normal 40.0-72.0 [facility] Comment on above: Performed By: #### L [id number] #### [facility] ([facility]) [address] [place] [address] NRBC (PER 100 WBCS) BY AUTOMATED COUNT 0.0 % Normal 0.0-0.0 [facility] Comment on above: Performed By: #### L [id number] #### [facility] ([facility]) [address] [place] [address] PLATELETS (10*3/UL) IN BLOOD AUTOMATED COUNT 218 10*3/uL Normal 150-400 [facility] Comment on above: Performed By: #### L [id number] #### [facility] ([facility]) [address] [place] [address] RBC (Bld) [#/Vol] 4.53 10*6/uL Normal 4.20-5.70 [facility] Comment on above: Performed By: #### L [id number] #### [facility] ([facility]) [address] [place] [address] WBC (Bld) [#/Vol] 6.31 10*3/uL Normal 4.00-10.60 [facility] Comment on above: Performed By: #### L [id number] #### [facility] ([facility]) [address] [facility] [place] [address] HEPARIN LEVELon 11-19-2022 HEPARIN UNFRACTIONATED (U/ML) IN PPP BY CHROMOGENIC METHOD >1.00 Critically high 0.3-0.7 [facility] Comment on above: Result Comment: Flomot roxaban and Apixaban will interfere with the anti Xa assay used to monitor UFH and LMWH. Performed By: #### L [id number] #### [facility] ([facility]) [address] [facility] [place] [address] HPon 11-19-2022 HP H&P reviewed. The patient was examined and there are no changes to the H&P. Normal [facility] MAGNESIUMon 11-19-2022 Magnesium [Mass/Vol] 2.2 mg/dL Normal 1.9-2.7 [facility] Comment on above: Performed By: #### L [id number] #### [facility] ([facility]) [address] [place] [address] POCT GLUCOSE METER UNSOLICIT ED RESULTSon 11-19-2022 Glucose [Mass/Vol] 372 mg/dL High 70-105 [facility] Comment on above: Result Comment: troy adams Performed By: #### L [id number] #### [facility] ([facility]) [address] [facility] [place] [address] Glucose [Mass/Vol] 149 mg/dL High 70-105 [facility] Comment on above: Result Comment: lisha braun Performed By: #### L [id number] #### [facility] ([facility]) [address] [place] [address] APTTon 11-18-2022 ACTIVATED PARTIAL THROMBOPLASTIN TIME IN PPP BY COAGULATION ASSAY 89.9 Seconds Critically high 25.0-35.0 [facility] Comment on above: Performed By: #### L [id number] ####[facility] ([facility])[address] [place] [address] ACTIVATED PARTIAL THROMBOPLASTIN TIME IN PPP BY COAGULATION ASSAY 83.7 Seconds Critically high 25.0-35.0 [facility] Comment on above: Order Comment: Check aPTT every 6 hours while on heparin infusion, or per protocol. Result Comment: Clin ical significance of the PTT result is questionable in the presence of Heparin. Performed By: #### L [id number] #### [facility] ([facility]) [address] [place] [address] BASIC METABOLIC PANELon Anion gap [Moles/Vol] 12 mmol/L Normal 7-20 [facility] Comment on above: Performed By: #### L [id number] ####[facility] ([facility])[address] [place] [address] Calcium [Mass/Vol] 9.0 mg/dL Normal 8.6-10.3 [facility] Comment on above: Performed By: #### L [id number] ####[facility] ([facility])[address] [place] [address] Chloride [Moles/Vol] 103 mmol/L Normal 98-107 [facility] Comment on above: Performed By: #### L [id number] ####[facility] ([facility])[address] [place] [address] CO2 [Moles/Vol] 24 mmol/L Normal 21-31 [facility] Comment on above: Performed By: #### L [id number] ####[facility] ([facility])[address] [place] [address] Creatinine [Mass/Vol] 0.98 mg/dL Normal 0.70-1.30 [facility] Comment on above: Performed By: #### L [id number] ####[facility] ([facility])[address] [place] [address] GLOMERULAR FILTRATION RATE ML/MIN/1.73 SQ M.PREDICTED 77.3 mL/min/1.73m*2 Normal >60.0 [facility] Comment on above: Result Comment: [facility]???s estimated glomerular filtration rate (eGFR) will [...] of individuals. Performed By: #### L [id number] ####[facility] ([facility])[address] [place] [address] Glucose [Mass/Vol] 132 mg/dL High 70-100 [facility] Comment on above: Performed By: #### L [id number] ####[facility] ([facility])[address] [place] [address] Potassium [Moles/Vol] 4.1 mmol/L Normal 3.5-5.1 [facility] Comment on above: Performed By: #### L [id number] ####[facility] ([facility])[address] [place] [address] Sodium [Moles/Vol] 139 mmol/L Normal 136-145 [facility] Comment on above: Performed By: #### L [id number] ####[facility] ([facility])[address] [place] [address] Urea nitrogen [Mass/Vol] 17 mg/dL Normal 7-25 [facility] Comment on above: Performed By: #### L [id number] ####[facility] ([facility])[address] [place] [address] UREA NITROGEN/CREATININE (MASS RATIO) IN SER/PLAS 17.35 Normal [facility] Comment on above: Performed By: #### L [id number] ####[facility] ([facility])[address] [place] [address] CBC WITH AUTO DIFFERENTIALon 11-18-2022 Basophils (Bld) [#/Vol] 0.05 10*3/uL Normal 0.00-0.20 [facility] Comment on above: Performed By: #### L [id number] ####[facility] ([facility])[address] [place] [address] Basophils/100 WBC (Bld) 0.7 % Normal 0.0-1.0 [facility] Comment on above: Performed By: #### L [id number] ####[facility] ([facility])[address] [place] [address] Eosinophils (Bld) [#/Vol] 0.34 10*3/uL Normal 0.00-0.50 [facility] Comment on above: Performed By: #### L [id number] ####[facility] ([facility])[address] [place] [address] Eosinophils/100 WBC (Bld) 4.7 % Normal 0.0-6.0 [facility] Comment on above: Performed By: #### L [id number] ####[facility] ([facility])[address] [place] [address] Erythrocyte distribution width (RBC) [Ratio] 14.5 % Normal 11.5-15.0 [facility] Comment on above: Performed By: #### L [id number] ####[facility] ([facility])[address] [place] [address] ERYTHROCYTE MEAN CORPUSCULAR HEMOGLOBIN CONCENTRATION (G/DL) BY AUTOMATED 32.1 g/dL Normal 32.0-35.0 [facility] Comment on above: Performed By: #### L [id number] ####[facility] ([facility])[address] [place] [address] Hematocrit (Bld) [Volume fraction] 41.4 % Normal 39.0-55.0 [facility] Comment on above: Performed By: #### L [id number] ####[facility] ([facility])[address] [place] [address] Hemoglobin (Bld) [Mass/Vol] 13.3 g/dL Normal 13.0-17.0 [facility] Comment on above: Performed By: #### L [id number] ####[facility] ([facility])[address] [place] [address] Immature granulocytes (Bld) [#/Vol] 0.03 10*3/uL Normal 0.00-0.20 [facility] Comment on above: Performed By: #### L [id number] ####[facility] ([facility])[address] [place] [address] Immature granulocytes/100 WBC (Bld) 0.4 % Normal 0.0-1.0 [facility] Comment on above: Performed By: #### L [id number] ####[facility] ([facility])[address] [place] [address] Lymphocytes (Bld) [#/Vol] 1.48 10*3/uL Normal 1.20-4.00 [facility] Comment on above: Performed By: #### L [id number] ####[facility] ([facility])[address] [place] [address] Lymphocytes/100 WBC (Bld) 20.5 % Normal 20.0-45.0 [facility] Comment on above: Performed By: #### L [id number] ####[facility] ([facility])[address] [place] [address] MCH (RBC) [Entitic mass] 27.4 pg Normal 27.0-33.0 [facility] Comment on above: Performed By: #### L [id number] ####[facility] ([facility])[address] [place] [address] MCV (RBC) [Entitic vol] 85.2 fL Normal 82.0-98.0 [facility] Comment on above: Performed By: #### L [id number] ####[facility] ([facility])[address] [place] [address] Monocytes (Bld) [#/Vol] 0.61 10*3/uL Normal 0.10-1.00 [facility] Comment on above: Performed By: #### L [id number] ####[facility] ([facility])[address] [place] [address] Monocytes/100 WBC (Bld) 8.5 % Normal 5.0-12.0 [facility] Comment on above: Performed By: #### L [id number] ####[facility] ([facility])[address] [place] [address] Neutrophils (Bld) [#/Vol] 4.70 10*3/uL Normal 1.60-7.60 [facility] Comment on above: Performed By: #### L [id number] ####[facility] ([facility])[address] [place] [address] Neutrophils/100 WBC (Bld) 65.2 % Normal 40.0-72.0 [facility] Comment on above: Performed By: #### L [id number] ####[facility] ([facility])[address] [place] [address] NRBC (PER 100 WBCS) BY AUTOMATED COUNT 0.0 % Normal 0.0-0.0 [facility] Comment on above: Performed By: #### L [id number] ####[facility] ([facility])[address] [place] [address] PLATELETS (10*3/UL) IN BLOOD AUTOMATED COUNT 238 10*3/uL Normal 150-400 [facility] Comment on above: Performed By: #### L [id number] ####[facility] ([facility])[address] [place] [address] RBC (Bld) [#/Vol] 4.86 10*6/uL Normal 4.20-5.70 [facility] Comment on above: Performed By: #### L [id number] ####[facility] ([facility])[address] [place] [address] WBC (Bld) [#/Vol] 7.21 10*3/uL Normal 4.00-10.60 [facility] Comment on above: Performed By: #### L [id number] ####[facility] ([facility])[address] [place] [address] HEPARIN LEVELon 11-18-2022 HEPARIN UNFRACTIONATED (U/ML) IN PPP BY CHROMOGENIC METHOD >1.00 Critically high 0.3-0.7 [facility] Comment on above: Result Comment: Flomot roxaban and Apixaban will interfere with the anti Xa assay used to monitor UFH and LMWH. Performed By: #### L [id number] #### [facility] ([facility]) [address] [place] [address] HEPARIN UNFRACTIONATED (U/ML) IN PPP BY CHROMOGENIC METHOD >1.00 Critically high 0.3-0.7 [facility] Comment on above: Result Comment: UFH added per protocol UFH=1.85 Performed By: #### L [id number] ####[facility] ([facility])[address] [place] [address] MAGNESIUMon 11-18-2022 Magnesium [Mass/Vol] 2.2 mg/dL Normal 1.9-2.7 [facility] Comment on above: Performed By: #### L [id number] #### [facility] ([facility]) [address] [place] [address] NURSNOTEon 11-18-2022 NURSNOTE Lab contacted regarding patient's ptt level being drawn. Lab worker states somebody will be up to draw the blood Normal [facility] POCT GLUCOSE METER UNSOLICIT ED RESULTSon 11-18-2022 Glucose [Mass/Vol] 215 mg/dL High 70-105 [facility] Comment on above: Result Comment: [email or web address] Performed By: #### L [id number] #### [facility] ([facility]) [address] [place] [address] Glucose [Mass/Vol] 171 mg/dL High 70-105 [facility] Comment on above: Result Comment: ybak er Performed By: #### L [id number] #### [facility] ([facility]) [address] [place] [address] Glucose [Mass/Vol] 217 mg/dL High 70-105 [facility] Comment on above: Result Comment: lhal co Performed By: #### L [id number] #### [facility] ([facility]) [address] [place] [address] Glucose [Mass/Vol] 131 mg/dL High 70-105 [facility] Comment on above: Result Comment: lhal co Performed By: #### L [id number] #### [facility] ([facility]) [address] [place] [address] BASIC METABOLIC PANELon 01-0 Anion gap [Moles/Vol] 9 mmol/L Normal 7-20 [facility] Comment on above: Performed By: #### L [id number] ####[facility] ([facility])[address] [place] [address] Calcium [Mass/Vol] 9.0 mg/dL Normal 8.6-10.3 [facility] Comment on above: Performed By: #### L [id number] ####[facility] ([facility])[address] [place] [address] Chloride [Moles/Vol] 105 mmol/L Normal 98-107 [facility] Comment on above: Performed By: #### L [id number] ####[facility] ([facility])[address] [place] [address] CO2 [Moles/Vol] 24 mmol/L Normal 21-31 [facility] Comment on above: Performed By: #### L [id number] ####[facility] ([facility])[address] [place] [address] Creatinine [Mass/Vol] 1.00 mg/dL Normal 0.70-1.30 [facility] Comment on above: Performed By: #### L [id number] ####[facility] ([facility])[address] [place] [address] GLOMERULAR FILTRATION RATE ML/MIN/1.73 SQ M.PREDICTED 75.4 mL/min/1.73m*2 Normal >60.0 [facility] Comment on above: Result Comment: [facility]???s estimated glomerular filtration rate (eGFR) will [...] of individuals. Performed By: #### L [id number] ####[facility] ([facility])[address] [place] [address] Glucose [Mass/Vol] 103 mg/dL High 70-100 [facility] Comment on above: Performed By: #### L [id number] ####[facility] ([facility])[address] [place] [address] Potassium [Moles/Vol] 4.1 mmol/L Normal 3.5-5.1 [facility] Comment on above: Performed By: #### L [id number] ####[facility] ([facility])[address] [place] [place] [address] Sodium [Moles/Vol] 138 mmol/L Normal 136-145 [facility] Comment on above: Performed By: #### L [id number] ####[facility] ([facility])[address] [facility] [address] Urea nitrogen [Mass/Vol] 18 mg/dL Normal 7-25 [facility] Comment on above: Performed By: #### L [id number] ####[facility] [facility] ([facility])[address] [place] [address] UREA NITROGEN/CREATININE (MASS RATIO) IN SER/PLAS 18.00 Normal [facility] Comment on above: Performed By: #### L [id number] ####[facility] ([facility])[address] [place] [address] CBC WITH AUTO DIFFERENTIALon 11-17-2022 Basophils (Bld) [#/Vol] 0.03 10*3/uL Normal 0.00-0.20 [facility] Comment on above: Performed By: #### L [id number] #### [facility] ([facility]) [address] [place] [address] Basophils/100 WBC (Bld) 0.4 % Normal 0.0-1.0 [facility] Comment on above: Performed By: #### L [id number] #### [facility] ([facility]) [address] [place] [address] Eosinophils (Bld) [#/Vol] 0.35 10*3/uL Normal 0.00-0.50 [facility] Comment on above: Performed By: #### L [id number] #### [facility] ([facility]) [address] [place] [address] Eosinophils/100 WBC (Bld) 4.8 % Normal 0.0-6.0 [facility] Comment on above: Performed By: #### L [id number] #### [facility] ([facility]) [address] [place] [address] Erythrocyte distribution width (RBC) [Ratio] 14.6 % Normal 11.5-15.0 [facility] Comment on above: Performed By: #### L [id number] #### [facility] ([facility]) [address] [place] [address] ERYTHROCYTE MEAN CORPUSCULAR HEMOGLOBIN CONCENTRATION (G/DL) BY AUTOMATED 32.1 g/dL Normal 32.0-35.0 [facility] Comment on above: Performed By: #### L [id number] #### [facility] ([facility]) [address] [place] [address] Hematocrit (Bld) [Volume fraction] 38.3 % Low 39.0-55.0 [facility] Comment on above: Performed By: #### L [id number] #### [facility] ([facility]) [address] [place] [address] Hemoglobin (Bld) [Mass/Vol] 12.3 g/dL Low 13.0-17.0 [facility] Comment on above: Performed By: #### L [id number] #### [facility] ([facility]) [address] [place] [address] Immature granulocytes (Bld) [#/Vol] 0.03 10*3/uL Normal 0.00-0.20 [facility] Comment on above: Performed By: #### L [id number] #### [facility] ([facility]) [address] [place] [address] Immature granulocytes/100 WBC (Bld) 0.4 % Normal 0.0-1.0 [facility] Comment on above: Performed By: #### L [id number] #### [facility] ([facility]) [address] [place] [address] Lymphocytes (Bld) [#/Vol] 1.80 10*3/uL Normal 1.20-4.00 [facility] Comment on above: Performed By: #### L [id number] #### [facility] ([facility]) [address] [place] [address] Lymphocytes/100 WBC (Bld) 24.8 % Normal 20.0-45.0 [facility] Comment on above: Performed By: #### L [id number] #### [facility] ([facility]) [address] [place] [address] MCH (RBC) [Entitic mass] 27.5 pg Normal 27.0-33.0 [facility] Comment on above: Performed By: #### L [id number] #### [facility] ([facility]) [address] [place] [address] MCV (RBC) [Entitic vol] 85.5 fL Normal 82.0-98.0 [facility] Comment on above: Performed By: #### L [id number] #### [facility] ([facility]) [address] [place] [address] Monocytes (Bld) [#/Vol] 0.62 10*3/uL Normal 0.10-1.00 [facility] Comment on above: Performed By: #### L [id number] #### [facility] ([facility]) [address] [place] [address] Monocytes/100 WBC (Bld) 8.5 % Normal 5.0-12.0 [facility] Comment on above: Performed By: #### L [id number] #### [facility] ([facility]) [address] [place] [address] Neutrophils (Bld) [#/Vol] 4.43 10*3/uL Normal 1.60-7.60 [facility] Comment on above: Performed By: #### L [id number] #### [facility] ([facility]) [address] [place] [address] Neutrophils/100 WBC (Bld) 61.1 % Normal 40.0-72.0 [facility] Comment on above: Performed By: #### L [id number] #### [facility] ([facility]) [address] [place] [address] NRBC (PER 100 WBCS) BY AUTOMATED COUNT 0.0 % Normal 0.0-0.0 [facility] Comment on above: Performed By: #### L [id number] #### [facility] ([facility]) [address] [place] [address] PLATELETS (10*3/UL) IN BLOOD AUTOMATED COUNT 228 10*3/uL Normal 150-400 [facility] Comment on above: Performed By: #### L [id number] #### [facility] ([facility]) [address] [place] [address] RBC (Bld) [#/Vol] 4.48 10*6/uL Normal 4.20-5.70 [facility] Comment on above: Performed By: #### L [id number] #### [facility] ([facility]) [address] [place] [address] WBC (Bld) [#/Vol] 7.26 10*3/uL Normal 4.00-10.60 [facility] Comment on above: Performed By: #### L [id number] #### [facility] ([facility]) [address] [place] [address] MAGNESIUMon 11-17-2022 Magnesium [Mass/Vol] 2.2 mg/dL Normal 1.9-2.7 [facility] Comment on above: Performed By: #### L [id number] #### [facility] ([facility]) [address] [place] [address] PLATELET COUNTon 11-17-2022 PLATELETS (10*3/UL) IN BLOOD AUTOMATED COUNT 225 10*3/uL Normal 150-400 [facility] Comment on above: Order Comment: Waive d Testing in the ED is performed under the ED CLIA certificate #[id number]. Performed By: #### L [id number] #### [facility] ([facility]) [address] [place] [address] POCT GLUCOSE METER UNSOLICIT ED RESULTSon 11-17-2022 Glucose [Mass/Vol] 156 mg/dL High 70-105 [facility] Comment on above: Result Comment: [email or web address] Performed By: #### L [id number] #### [facility] ([facility]) [address] [place] [address] Glucose [Mass/Vol] 163 mg/dL High 70-105 [facility] Comment on above: Result Comment: [email or web address] [email or web address] Performed By: #### L [id number] ####[facility] ([facility])[address] [place] [address] Glucose [Mass/Vol] 190 mg/dL High 70-105 [facility] Comment on above: Result Comment: [email or web address] Performed By: #### L [id number] #### [facility] ([facility]) [address] [place] [address] Glucose [Mass/Vol] 131 mg/dL High 70-105 [facility] Comment on above: Result Comment: [email or web address] Performed By: #### L [id number] #### [facility] ([facility]) [address] [place] [address] B-TYPE NATRIURETIC PEPTIDEon 11-16-2022 Natriuretic peptide B (Bld) [Mass/Vol] 1630 pg/mL High 0-100 [facility] Comment on above: Performed By: #### L [id number] #### [facility] ([facility]) [address] [place] [address] BASIC METABOLIC PANELon Anion gap [Moles/Vol] 8 mmol/L Normal 7-20 [facility] Comment on above: Performed By: #### L [id number] #### [facility] ([facility]) [address] [place] [address] Calcium [Mass/Vol] 9.1 mg/dL Normal 8.6-10.3 [facility] Comment on above: Performed By: #### L [id number] #### [facility] ([facility]) [address] [place] [address] Chloride [Moles/Vol] 103 mmol/L Normal 98-107 [facility] Comment on above: Performed By: #### L [id number] #### [facility] ([facility]) [address] [place] [address] CO2 [Moles/Vol] 27 mmol/L Normal 21-31 [facility] Comment on above: Performed By: #### L [id number] #### [facility] ([facility]) [address] [place] [address] Creatinine [Mass/Vol] 1.07 mg/dL Normal 0.70-1.30 [facility] Comment on above: Performed By: #### L [id number] #### [facility] ([facility]) [address] [place] [address] GLOMERULAR FILTRATION RATE ML/MIN/1.73 SQ M.PREDICTED 69.5 mL/min/1.73m*2 Normal >60.0 [facility] Comment on above: Result Comment: [facility]???s estimated glomerular filtration rate (eGFR) will [...] group of individuals. Performed By: #### L [id number] #### [facility] ([facility]) [address] [place] [address] Glucose [Mass/Vol] 149 mg/dL High 70-100 [facility] Comment on above: Performed By: #### L [id number] #### [facility] ([facility]) [address] [place] [address] Potassium [Moles/Vol] 3.9 mmol/L Normal 3.5-5.1 [facility] Comment on above: Performed By: #### L [id number] #### [facility] ([facility]) [address] [place] [address] Sodium [Moles/Vol] 138 mmol/L Normal 136-145 [facility] Comment on above: Performed By: #### L [id number] #### [facility] ([facility]) [address] [place] [address] Urea nitrogen [Mass/Vol] 20 mg/dL Normal 7-25 [facility] Comment on above: Performed By: #### L [id number] #### [facility] ([facility]) [address] [place] [address] UREA NITROGEN/CREATININE (MASS RATIO) IN SER/PLAS 18.69 Normal [facility] Comment on above: Performed By: #### L [id number] #### [facility] ([facility]) [address] [place] [address] CBCon 11-16-2022 Erythrocyte distribution width (RBC) [Ratio] 14.6 % Normal 11.5-15.0 [facility] Comment on above: Performed By: #### L [id number] #### [facility] ([facility]) [address] [place] [address] ERYTHROCYTE MEAN CORPUSCULAR HEMOGLOBIN CONCENTRATION (G/DL) BY AUTOMATED 31.9 g/dL Low 32.0-35.0 [facility] Comment on above: Performed By: #### L [id number] #### [facility] ([facility]) [address] [place] [address] Hematocrit (Bld) [Volume fraction] 37.9 % Low 39.0-55.0 [facility] Comment on above: Performed By: #### L [id number] #### [facility] ([facility]) [address] [place] [address] Hemoglobin (Bld) [Mass/Vol] 12.1 g/dL Low 13.0-17.0 [facility] Comment on above: Performed By: #### L [id number] #### [facility] ([facility]) [address] [place] [address] MCH (RBC) [Entitic mass] 27.4 pg Normal 27.0-33.0 [facility] Comment on above: Performed By: #### L [id number] #### [facility] ([facility]) [address] [place] [address] MCV (RBC) [Entitic vol] 85.9 fL Normal 82.0-98.0 [facility] Comment on above: Performed By: #### L [id number] #### [facility] ([facility]) [address] [place] [address] PLATELETS (10*3/UL) IN BLOOD AUTOMATED COUNT 224 10*3/uL Normal 150-400 [facility] Comment on above: Performed By: #### L [id number] #### [facility] ([facility]) [address] [place] [address] RBC (Bld) [#/Vol] 4.41 10*6/uL Normal 4.20-5.70 [facility] Comment on above: Performed By: #### L [id number] #### [facility] ([facility]) [address] [place] [address] WBC (Bld) [#/Vol] 8.23 10*3/uL Normal 4.00-10.60 [facility] Comment on above: Performed By: #### L [id number] #### [facility] ([facility]) [address] [place] [address] CONSULTon 11-16-2022 CONSULT Adult Nutrition Consult Name: Gadiel Liang Date: 1950 Date of Visit: 11/16/22 Admission Dx: Acute on chronic systolic congestive heart failure (CMS/HCC) [I50.23] Reason for assessment: high risk and HF Past Medical History: Diagnosis Date Atrial fibrillation (CMS/HCC) AV block, 1st degree CHF (congestive heart failure) ([facility]/HCC) Stroke ([facility]) Additional: DM, hypothyroid, GERD, TIA Information obtained from: patient and medical record Nutrition Problems: Swallowing Assessment: Pt denies difficulty swallowing Mouth: Pt denies difficulty chewing Abdominal Assessment: Pt denies N/V/D/C Cognition: A/O x4 Appetite: Pt reports good appetite now but stated it was decreased for the past few weeks [employer] Other factors: edema and SOB, generalized fatigue, weakness [employer]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 3/PFO with [id number] shunt. 4/hypertension, uncontrolled Plan: 1/continue GDMT with lisinopril 5 mg daily. We will switch metoprolol succinate to carvedilol 6.25 twice daily daily. We will start the patient on Farxiga 10 mg daily. 2/continue Lasix 40 mg daily, monitor ins and outs, daily weight, 2 L fluid restriction, 2 g sodium restriction. 3/we will switch Eliquis 5 mg twice daily for high [id number] 2 h (more content not included)... Normal [facility] 11-16-2022 -- Attestation signed by Ever Arora [...] a past medical history of Atrial fibrillation ([facility]), AV block, 1st degree, CHF (congestive heart failure) ([facility]), and Stroke ([facility]). Surgical History He has a past surgical [...] moderate in (more content not included)... Normal [facility] MAGNESIUMon 11-16-2022 Magnesium [Mass/Vol] 2.3 mg/dL Normal 1.9-2.7 [facility] Comment on above: Performed By: #### L [id number] #### [facility] ([facility]) [address] [facility] [address] Magnesium [Mass/Vol] 1.9 mg/dL Normal 1.9-2.7 [facility] Comment on above: Performed By: #### L [id number] #### [facility] ([facility]) [address] [place] [address] NURSNOTEon 11-16-2022 NURSNOTE [employer] Notified Sri MALCOLM that [facility] stated this pt was in 80 A-Flutter. No new orders given. Will continue to monitor. Normal [facility] POCT GLUCOSE METER UNSOLICIT ED RESULTSon 11-16-2022 Glucose [Mass/Vol] 151 mg/dL High 70-105 [facility] Comment on above: Result Comment: [email or web address] Performed By: #### L [id number] ####[facility] ([facility])[address] [place] [address] Glucose [Mass/Vol] 118 mg/dL High 70-105 [facility] Comment on above: Result Comment: anau Performed By: #### L [id number] ####[facility] ([facility])[address] [employer] [facility] [place] [address] Glucose [Mass/Vol] 233 mg/dL High 70-105 [facility] Comment on above: Result Comment: anau Performed By: #### L [id number] #### [facility] ([facility]) [address] [place] [address] Glucose [Mass/Vol] 121 mg/dL High 70-105 [facility] Comment on above: Result Comment: anau Performed By: #### L [id number] ####[facility] ([facility])[address] [place] [address] Glucose [Mass/Vol] 144 mg/dL High 70-105 [facility] Comment on above: Result Comment: [email or web address] Performed By: #### L [id number] #### [facility] ([facility]) [address] [place] [address] APTTon 11-15-2022 ACTIVATED PARTIAL THROMBOPLASTIN TIME IN PPP BY COAGULATION ASSAY 30.7 Seconds Normal 25.0-35.0 [facility] Comment on above: Performed By: #### L [id number] #### [facility] ([facility]) [address] [place] [address] B-TYPE NATRIURETIC PEPTIDEon 11-15-2022 Natriuretic peptide B (Bld) [Mass/Vol] 1517 pg/mL High 0-100 [facility] Comment on above: Performed By: #### L [id number] #### [facility] ([facility]) [address] [place] [address] BASIC METABOLIC PANELon Anion gap [Moles/Vol] 10 mmol/L Normal 7-20 [facility] Comment on above: Performed By: #### L [id number] #### [facility] ([facility]) [address] [place] [address] Calcium [Mass/Vol] 9.3 mg/dL Normal 8.6-10.3 [facility] Comment on above: Performed By: #### L [id number] #### [facility] ([facility]) [address] [place] [address] Chloride [Moles/Vol] 104 mmol/L Normal 98-107 [facility] Comment on above: Performed By: #### L [id number] #### [facility] ([facility]) [address] [place] [address] CO2 [Moles/Vol] 22 mmol/L Normal 21-31 [facility] Comment on above: Performed By: #### L [id number] #### [facility] ([facility]) [address] [place] [address] Creatinine [Mass/Vol] 1.05 mg/dL Normal 0.70-1.30 [facility] Comment on above: Performed By: #### L [id number] #### [facility] ([facility]) [address] [place] [address] GLOMERULAR FILTRATION RATE ML/MIN/1.73 SQ M.PREDICTED 71.1 mL/min/1.73m*2 Normal >60.0 [facility] Comment on above: Result Comment: [facility]???s estimated glomerular filtration rate (eGFR) will [...] individuals. Performed By: #### L [id number] #### [facility] ([facility]) [address] [place] [address] Glucose [Mass/Vol] 229 mg/dL High 70-100 [facility] Comment on above: Performed By: #### L [id number] #### [facility] ([facility]) [address] [place] [address] Potassium [Moles/Vol] 4.2 mmol/L Normal 3.5-5.1 [facility] Comment on above: Performed By: #### L [id number] #### [facility] ([facility]) [address] [place] [address] Sodium [Moles/Vol] 136 mmol/L Normal 136-145 [facility] Comment on above: Performed By: #### L [id number] #### [facility] ([facility]) [address] [place] [address] Urea nitrogen [Mass/Vol] 20 mg/dL Normal 7-25 [facility] Comment on above: Performed By: #### L [id number] #### [facility] ([facility]) [address] [place] [address] UREA NITROGEN/CREATININE (MASS RATIO) IN SER/PLAS 19.05 Normal [facility] Comment on above: Performed By: #### L [id number] #### [facility] ([facility]) [address] [place] [address] CBC WITH AUTO DIFFERENTIALon 11-15-2022 Basophils (Bld) [#/Vol] 0.03 10*3/uL Normal 0.00-0.20 [facility] Comment on above: Performed By: #### L [id number] #### [facility] ([facility]) [address] [place] [address] Basophils/100 WBC (Bld) 0.4 % Normal 0.0-1.0 [facility] Comment on above: Performed By: #### L [id number] #### [facility] ([facility]) [address] [place] [address] Eosinophils (Bld) [#/Vol] 0.07 10*3/uL Normal 0.00-0.50 [facility] Comment on above: Performed By: #### L [id number] #### [facility] ([facility]) [address] [place] [address] Eosinophils/100 WBC (Bld) 1.0 % Normal 0.0-6.0 [facility] Comment on above: Performed By: #### L [id number] #### [facility] ([facility]) [address] [place] [address] Erythrocyte distribution width (RBC) [Ratio] 14.7 % Normal 11.5-15.0 [facility] Comment on above: Performed By: #### L [id number] #### [facility] ([facility]) [address] [place] [address] ERYTHROCYTE MEAN CORPUSCULAR HEMOGLOBIN CONCENTRATION (G/DL) BY AUTOMATED 31.8 g/dL Low 32.0-35.0 [facility] Comment on above: Performed By: #### L [id number] #### [facility] ([facility]) [address] [place] [address] Hematocrit (Bld) [Volume fraction] 40.2 % Normal 39.0-55.0 [facility] Comment on above: Performed By: #### L [id number] #### [facility] ([facility]) [address] [place] [address] Hemoglobin (Bld) [Mass/Vol] 12.8 g/dL Low 13.0-17.0 [facility] Comment on above: Performed By: #### L [id number] #### [facility] ([facility]) [address] [place] [address] Immature granulocytes (Bld) [#/Vol] 0.04 10*3/uL Normal 0.00-0.20 [facility] Comment on above: Performed By: #### L [id number] #### [facility] ([facility]) [address] [place] [address] Immature granulocytes/100 WBC (Bld) 0.6 % Normal 0.0-1.0 [facility] Comment on above: Performed By: #### L [id number] #### [facility] ([facility]) [address] [place] [address] Lymphocytes (Bld) [#/Vol] 0.73 10*3/uL Low 1.20-4.00 [facility] Comment on above: Performed By: #### L [id number] #### [facility] ([facility]ER) [address] [place] [address] Lymphocytes/100 WBC (Bld) 10.2 % Low 20.0-45.0 [facility] Comment on above: Performed By: #### L [id number] #### [facility] ([facility]) [address] [place] [address] MCH (RBC) [Entitic mass] 27.4 pg Normal 27.0-33.0 [facility] Comment on above: Performed By: #### L [id number] #### [facility] ([facility]) [address] [place] [address] MCV (RBC) [Entitic vol] 85.9 fL Normal 82.0-98.0 [facility] Comment on above: Performed By: #### L [id number] #### [facility] ([facility]) [address] [place] [address] Monocytes (Bld) [#/Vol] 0.59 10*3/uL Normal 0.10-1.00 [facility] Comment on above: Performed By: #### L [id number] #### [facility] ([facility]) [address] [place] [address] Monocytes/100 WBC (Bld) 8.2 % Normal 5.0-12.0 [facility] Comment on above: Performed By: #### L [id number] #### [facility] ([facility]) [address] [place] [address] Neutrophils (Bld) [#/Vol] 5.72 10*3/uL Normal 1.60-7.60 [facility] Comment on above: Performed By: #### L [id number] #### [facility] ([facility]) [address] [place] [address] Neutrophils/100 WBC (Bld) 79.6 % High 40.0-72.0 [facility] Comment on above: Performed By: #### L [id number] #### [facility] ([facility]) [address] [place] [address] NRBC (PER 100 WBCS) BY AUTOMATED COUNT 0.0 % Normal 0.0-0.0 [facility] Comment on above: Performed By: #### L [id number] #### [facility] ([facility]) [address] [facility] [place] [address] PLATELETS (10*3/UL) IN BLOOD AUTOMATED COUNT 245 10*3/uL Normal 150-400 [facility] Comment on above: Performed By: #### L [id number] #### [facility] ([facility]) [address] [facility] [place] [address] RBC (Bld) [#/Vol] 4.68 10*6/uL Normal 4.20-5.70 [facility] Comment on above: Performed By: #### L [id number] #### [facility] ([facility]) [address] [facility] [place] [address] WBC (Bld) [#/Vol] 7.18 10*3/uL Normal 4.00-10.60 [facility] Comment on above: Performed By: #### L [id number] #### [facility] ([facility]) [address] [place] [address] EDPROVon 11-15-2022 EDPROV [facility] [address] [facility] [address] EMERGENCY DEPARTMENT ENCOUNTER CHIEF COMPLAINT Chief Complaint Patient presents with Shortness of Breath Dec the it all started with the Sob HISTORY OF PRESENT ILLNESS 72-year-old male with past medical history of recently diagnosed systolic congestive heart failure and persistent atrial fibrillation is brought to the emergency department by his from the town of [place] for progressive fatigue, weakness, decreased appetite and [...] since that time. He follows with our [facility] cardiology clinic. He was seen at the [facility] emergency department on November 10 for the [...] a past medical history of Atrial fibrillation ([facility]), AV block, 1st degree, CHF (congestive heart failure) ([facility]), and Stroke ([facility]). SURGICAL HISTORY has a past surgical history [...] He indic (more content not included)... Normal [facility] MAGNESIUMon 11-15-2022 Magnesium [Mass/Vol] 1.9 mg/dL Normal 1.9-2.7 [facility] Comment on above: Performed By: #### L [id number] #### [facility] (BEAKER) [address] [facility] [place] [address] POCT GLUCOSE METER UNSOLICIT ED RESULTSon 11-15-2022 Glucose [Mass/Vol] 268 mg/dL High 70-105 [facility] Comment on above: Result Comment: en anita Performed By: #### L [id number] #### [facility] (Aviir) [address] [place] [address] PROTIME-INRon 11-15-2022 INR IN PPP BY COAGULATION ASSAY 1.87 High 0.90-1.10 [facility] Comment on above: Result Comment: ACCC [...] RANGE. CHEST 1995;[id number]. Performed By: #### L [id number] #### [facility]) [address] [place] [address] PROTHROMBIN TIME (PT) IN PPP BY COAGULATION ASSAY 21.2 Seconds High 12.3-14.8 [facility] Comment on above: Performed By: #### L [id number] #### [facility]) [address] [place] [address] TROPONIN Ion 11-15-2022 Troponin I.cardiac [Mass/Vol] 0.03 ng/mL Normal 0.00-0.04 [facility] Comment on above: Performed By: #### L [id number] #### [facility]) [address] [place] [address] TSH3 REFLEX TO FT4on 023 THYROTROPIN (MIU/L) IN SER/PLAS BY DETECTION LIMIT <= 0.05 MIU/L 4.08 mIU/L Normal 0.34-5.60 [facility] Comment on above: Performed By: #### L [id number] ####[facility] ([facility])[address] [facility] [place] [address] URINALYSIS MICROSCOPIC WITH REFLEX CULTUREon 11-15-2022 CASTS IN URINE Present Abnormal None Seen [facility] Comment on above: Performed By: #### L [id number] #### [facility] ([facility]) [address] [place] [address] CRYSTALS IN URINE Normal [facility] Comment on above: Performed By: #### L [id number] #### [facility] ([facility]) [address] [place] [address] HYALINE CASTS /LPF IN URINE SEDIMENT BY MICROSCOPY 1 /LPF High <1 [facility] Comment on above: Performed By: #### L [id number] #### [facility] ([facility]) [address] [place] [address] LEUKOCYTE ESTERASE PRESENCE IN URINE BY TEST STRIP Negative Normal Negative [facility] Comment on above: Performed By: #### L [id number] #### [facility] ([facility]) [address] [place] [address] Order Comment: 0000 MUCUS (#/HPF) IN URINE SEDIMENT Occasional Normal None Seen, Occasional, Few [facility] Comment on above: Performed By: #### L [id number] #### [facility] ([facility]) [address] [place] [address] NITRITE PRESENCE IN URINE Negative Normal Negative [facility] Comment on above: Performed By: #### L [id number] #### [facility] ([facility]) [address] [place] [address] Order Comment: 0000 OTHER MICROSCOPIC ELEMENTS Normal [facility] Comment on above: Performed By: #### L [id number] #### [facility] (BEAKER) [address] [place] [address] RBC (#/HPF) IN URINE SEDIMENT 0-2 Abnormal None Seen [facility] Comment on above: Performed By: #### L [id number] #### [facility] ([facility]) [address] [place] [address] SQUAMOUS EPITHELIAL CELLS (#/HPF) IN URINE SEDIMENT Occasional Normal None Seen, Occasional [facility] Comment on above: Performed By: #### L [id number] #### [facility] ([facility]) [address] [place] [address] WBC (LEUKOCYTE) (#/HPF) IN URINE SEDIMENT 0-2 Abnormal None Seen [facility] Comment on above: Performed By: #### L [id number] #### [facility] ([facility]) [address] [place] [address] URINALYSIS WITH REFLEX CULTU REon 11-15-2022 BILIRUBIN, TOTAL PRESENCE IN URINE Negative Normal Negative [facility] Comment on above: Order Comment: 0000 Performed By: #### L [id number] #### [facility] ([facility]) [address] [place] [address] Clarity (U) Clear Normal Clear [facility] Comment on above: Order Comment: 0000 Performed By: #### L [id number] #### [facility] ([facility]) [address] [place] [address] Color (U) Yellow Normal Yellow, Dark Yellow, Straw [facility] Comment on above: Order Comment: 0000 Performed By: #### L [id number] #### [facility] ([facility]) [address] [place] [address] Glucose (U) [Mass/Vol] Negative Normal Negative [facility] Comment on above: Order Comment: 0000 Performed By: #### L [id number] #### [facility] (BEAKER) [address] [place] [address] HEMOGLOBIN PRESENCE IN URINE Negative Normal Negative [facility] Comment on above: Order Comment: 0000 Performed By: #### L [id number] #### [facility] ([facility]) [address] [place] [address] Ketones Ql (U) Negative Normal Negative [facility] Comment on above: Order Comment: 0000 Performed By: #### L [id number] #### [facility] ([facility]) [address] [place] [address] pH (U) 6.0 [pH] Normal 5.0-8.0 [facility] Comment on above: Order Comment: 0000 Performed By: #### L [id number] #### [facility] ([facility]) [address] [place] [address] Protein (U) [Mass/Vol] 30 mg/dL Abnormal Negative [facility] Comment on above: Order Comment: 0000 Performed By: #### L [id number] #### [facility] ([facility]) [address] [place] [address] Specific gravity (U) [Rel density] 1.020 Normal 1.015-1.020 [facility] Comment on above: Order Comment: 0000 Performed By: #### L [id number] #### [facility] ([facility]) [address] [place] [address] UROBILINOGEN (EU/DL) IN URINE 1.0 EU/dL Normal Negative [facility] Comment on above: Order Comment: 0000 Performed By: #### L [id number] #### [facility] ([facility]) [address] [place] [address] BNPon 11-10-2022 Natriuretic peptide B (Bld) [Mass/Vol] 6259.0 pg/mL Critically high <=900.0 [facility] Comment on above: Performed By: #### B CHARGE HISTOTECHNOLOGIST, BMP, HSTROPN #### [facility] [address] [place] [address] [address] Esme Jackson CBC AUTO DIFFon 11-10-2022 BASO # 0.0 103/ul Normal 0.0-0.1 [facility] Comment on above: Performed By: #### C BC #### [facility] [address] [address] [address] Esme Jackson Basophils/100 WBC (Bld) 0.5 % Normal 0.2-2.0 [facility] Comment on above: Performed By: #### C BC #### [facility] [address] [address] [address] Esme Jackson EO # 0.3 103/ul Normal 0.0-0.7 [facility] Comment on above: Performed By: #### C BC #### [facility] [address] [place] [address] Dr. Esme Jackson Eosinophils/100 WBC (Bld) 3.6 % Normal 0.9-7.0 [facility] Comment on above: Performed By: #### C BC #### [facility] [address] [place] [address] Dr. Esme Jackson Erythrocyte distribution width (RBC) [Ratio] 14.8 % Normal 11.0-15.0 [facility] Comment on above: Performed By: #### C BC #### [facility] [address] [place] [address] Dr. Esme Jackson Hematocrit (Bld) [Volume fraction] 36.9 % Critically low 42.0-54.0 [facility] Comment on above: Performed By: #### C BC #### [facility] [address] [place] [address] Dr. Esme Jackson Hemoglobin (Bld) [Mass/Vol] 12.0 g/dL Critically low 14.0-18.0 [facility] Comment on above: Performed By: #### C BC #### [facility] [address] [place] [address] Dr. Esme Jackson IG # 0.04 10e3/ul Critically high 0.00-0.03 [facility] Comment on above: Performed By: #### C BC #### [facility] [address] [place] [address] Dr. Esme Jackson IG % 0.5 % Normal 0.0-0.5 [facility] Comment on above: Performed By: #### C BC #### [facility] [address] [place] [address] Dr. Esme Jackson LYMPH # 1.3 103/ul Normal 1.2-3.8 [facility] Comment on above: Performed By: #### C BC #### [facility] [address] [place] [address] Dr. Esme Jackson Lymphocytes/100 WBC (Bld) 18.2 % Critically low 20.5-60.0 [facility] Comment on above: Performed By: #### C BC #### [facility] [address] [place] [address] Dr. Esme Jackson MANUAL DIFF REQ NO Normal [facility] Comment on above: Performed By: #### C BC #### [facility] [address] [place] [address] Dr. Esme Jackson MCH (RBC) [Entitic mass] 28.0 pg Normal 25.9-34.0 [facility] Comment on above: Performed By: #### C BC #### [facility] [address] [place] [address] Dr. Esme Jackson MCHC (RBC) [Mass/Vol] 32.5 g/dL Normal 29.9-35.2 [facility] Comment on above: Performed By: #### C BC #### [facility] [address] [place] [address] Dr. Esme Jackson MCV (RBC) [Entitic vol] 86.0 fL Normal 80.0-94.0 [facility] Comment on above: Performed By: #### C BC #### [facility] [address] [place] [address] Dr. Esme Jackson MONO # 0.5 103/ul Normal 0.3-0.8 [facility] Comment on above: Performed By: #### C BC #### [facility] [address] [place] [address] Dr. Esme Jackson Monocytes/100 WBC (Bld) 7.3 % Normal 1.7-12.0 [facility] Comment on above: Performed By: #### C BC #### [facility] [address] [place] [address] Dr. Esme Jackson NEUT # 5.1 103/ul Normal 1.4-6.5 [facility] Comment on above: Performed By: #### C BC #### [facility] [address] [place] [address] Dr. Esme Jackson Neutrophils/100 WBC (Bld) 69.9 % Normal 43.0-75.0 [facility] Comment on above: Performed By: #### C BC #### [facility] [address] [place] [address] Dr. Esme Jackson Platelet mean volume (Bld) [Entitic vol] 10.3 fL Normal 9.5-13.5 [facility] Comment on above: Performed By: #### C BC #### [facility] [address] [place] [address] Dr. Esme Jackson PLT 220 103/ul Normal 150-450 [facility] Comment on above: Performed By: #### C BC #### [facility] [address] [place] [address] Dr. Esme Jackson RBC 4.29 106/ul Critically low 4.70-6.10 [facility] Comment on above: Performed By: #### C BC #### [facility] [address] [place] [address] Dr. Esme Jackson WBC 7.3 103/ul Normal 4.0-11.0 [facility] Comment on above: Performed By: #### C BC #### [facility] [address] [place] [address] Dr. Esme Jackson Covid-19 PCR ([facility])on 10-13 SARS-CoV-2 (COVID-19) RNA HANSA+probe Ql (Unsp spec) Not detected Normal NOT DETECTED [facility] Comment on above: Result Comment: When diagnostic [...] for this test is supported by the [place] of Health and Human Service's declaration that [...] used). Performed By: #### C [id number] #### [facility] [address] [place] [address] Dr. Esme Jackson INFLUENZA A AND B AGon 11-10 [facility] SEE BELOW Normal [facility] Comment on above: Result Comment: Nega tive for Flu A protein angiten. Infection due to Flu A cannot be ruled out. Flu A angiten in the sample may be below the detection limit of the test. Performed By: #### F T4 #### [facility] [address] [place] [address] Dr. Esme [facility] BEL[facility] Normal [facility] Comment on above: Result Comment: Nega tive for Flu B protein antigen. Infection due to Flu B cannot be ruled out. Flu B antigen in the sample may be below the detection limit of the test. Performed By: #### F T4 #### [facility] [address] [place] [address] Dr. Esme Jackson INFLUENZA A AG Negative Normal NEGATIVE SEE COMMENT [facility] Comment on above: Performed By: #### F T4 #### [facility] [address] [place] [address] Dr. Esme Jackson INFLUENZA B AG Negative Normal NEGATIVE SEE COMMENT [facility] Comment on above: Performed By: #### F T4 #### [facility] [address] [place] [address] Dr. Esme Jackson PROF CHEM 8 (BAS METB)on Anion gap [Moles/Vol] 13.9 mmol/L Normal [facility] Comment on above: Performed By: #### B CHARGE HISTOTECHNOLOGIST, BMP, HSTROPN #### [facility] [address] [address] [address] Esme Jackson Calcium [Mass/Vol] 8.7 mg/dL Normal 8.5-10.1 [facility] Comment on above: Performed By: #### B CHARGE HISTOTECHNOLOGIST, BMP, HSTROPN #### [facility] [address] [address] [address] Esme Jackson Chloride [Moles/Vol] 104 mmol/L Normal 98-107 [facility] Comment on above: Performed By: #### B CHARGE HISTOTECHNOLOGIST, BMP, HSTROPN #### [facility] [address] [address] [address] Esme Jackson CO2 [Moles/Vol] 25.2 mmol/L Normal 21.0-32.0 [facility] Comment on above: Performed By: #### B CHARGE HISTOTECHNOLOGIST, BMP, HSTROPN #### [facility] [address] [place] [address] Dr. Esme Jackson Creatinine [Mass/Vol] 1.04 mg/dL Normal 0.70-1.30 [facility] Comment on above: Performed By: #### B CHARGE HISTOTECHNOLOGIST, BMP, HSTROPN #### [facility] [address] [address] [address] Esme Jackson EGFR-AF CITIZEN OF [place] >60 Normal >=60 [facility] Comment on above: Performed By: #### B CHARGE HISTOTECHNOLOGIST, BMP, HSTROPN #### [facility] [address] [place] [address] Dr. Esme Jackson EGFR-NON AF CITIZEN OF [place] >60 Normal >=60 [facility] Comment on above: Performed By: #### B CHARGE HISTOTECHNOLOGIST, BMP, HSTROPN #### [facility] [address] [address] [address] Esme Jackson Glucose [Mass/Vol] 199 mg/dL Critically high 74-106 [facility] Comment on above: Performed By: #### B CHARGE HISTOTECHNOLOGIST, BMP, HSTROPN #### [facility] [address] [address] [address] Esme Jackson Potassium [Moles/Vol] 4.1 mmol/L Normal 3.5-5.1 [facility] Comment on above: Performed By: #### B CHARGE HISTOTECHNOLOGIST, BMP, HSTROPN #### [facility] [address] [place] [address] Dr. Esme Jackson Sodium [Moles/Vol] 139 mmol/L Normal 136-145 [facility] Comment on above: Performed By: #### B CHARGE HISTOTECHNOLOGIST, BMP, HSTROPN #### [facility] [address] [place] [address] Dr. Esme Jackson Urea nitrogen [Mass/Vol] 18.0 mg/dL Normal 7.0-18.0 [facility] Comment on above: Performed By: #### B CHARGE HISTOTECHNOLOGIST, BMP, HSTROPN #### [facility] [address] [place] [address] Dr. Esme Jackson Urea nitrogen/Creatinine [Mass ratio] 17.3 mg/mg Normal [facility] Comment on above: Performed By: #### B CHARGE HISTOTECHNOLOGIST, BMP, HSTROPN #### [facility] [address] [place] [address] Dr. Esme Jackson TROPONIN, HIGH SENSITIVITYon 11-10-2022 HSTROP 35.5 pg/mL Normal 4.0-76.1 [facility] Comment on above: Result Comment: CUT- OFF POINTS HAVE BEEN ESTABLISHED BASED ON THE FOURTH UNIVERSAL DEFINITIONS OF MYOCARDIAL INFARCTION. THE UPPER REFERENCE LIMIT (URL) OF TROPONIN, DEFINED THE 99TH PERCENTILE OF cTnI DISTRIBUTION IN A REFERENCE POPULATION, HAS BEEN CONFIRMED THE DECISION THRESHOLD FOR [place] DIAGNOSIS. Performed By: #### B CHARGE HISTOTECHNOLOGIST, BMP, HSTROPN #### [facility] [address] [place] [address] Dr. Esme Jackson XR CHEST 1 Von [...] authenticated by: RY CLINTON Date: 2022-11-10 09:24 [facility] 29on 10-26-2022 29 Addended by: TONY ADHIKARI on: 10/26/2022 06:54 PM Modules accepted: Level of Service [facility] 29 Addended by: VINI CRAWFORD on: 10/26/2022 12:29 PM Modules accepted: Orders [facility] 29 Addended by: TONY ADHIKARI on: 10/26/2022 12:21 PM Modules accepted: Orders [facility] 37on 10-26-2022 37 Take Furosemide 20mg once [...] okay to eat prior Kind Tony briones [facility] Cardiovascular Medicine [phone] [facility] Appointmenton 10-26-2022 Appointment [phone] Gadiel Liang 1950 M Date Provider Department Center 10/26/2022 [id number]-NCHSYCTONY ADHIKARI [facility] Family History Problem Relation Age of [...] Paternal Grandmother Paternal Grandfather Other Level of Service:64402 DE OFFICE/OUTPATIENT ESTABLISHED [facility] 30-39 MIN Reason for Visit and Comments: Atrial Fibrillation [80] Congestive Heart Failure [127] Normal [facility] ANENolan 10-24-2022 ANES -- Attestation signed by Clem [...] the week of Oct 22 2022 Location: [facility] HEMATOLOGY TECHNOLOGIST 3 / [facility] (Cath) Providers: Eliceo Rosenberg MD Clinical information reviewed: Allergies Meds Physical Exam Airway Mallampati: II TM distance: >3 FB Neck ROM: full Cardiovascular Rhythm: irregular Rate: normal Dental Pulmonary Abdominal Anesthesia Plan ASA 3 Anesthetic plan and risks discussed with patient. Use of blood products discussed with patient who consented to blood products. Plan discussed with attending. Additional Equipment Requests Alvern Lang, MD Production Support Consultant - PGY4 [facility] Normal [facility] BASIC METABOLIC PANELon 12-1 Anion gap [Moles/Vol] 10 mmol/L Normal 7-20 [facility] Comment on above: Performed By: #### L [id number] #### [facility] ([facility]) [address] [place] [address] Calcium [Mass/Vol] 8.7 mg/dL Normal 8.6-10.3 [facility] Comment on above: Performed By: #### L [id number] #### [facility] ([facility]) [address] [place] [address] Chloride [Moles/Vol] 109 mmol/L High 98-107 [facility] Comment on above: Performed By: #### L [id number] #### [facility] ([facility]) [address] [place] [address] CO2 [Moles/Vol] 22 mmol/L Normal 21-31 [facility] Comment on above: Performed By: #### L [id number] #### [facility] ([facility]) [address] [place] [address] Creatinine [Mass/Vol] 0.78 mg/dL Normal 0.70-1.30 [facility] Comment on above: Performed By: #### L [id number] #### [facility] ([facility]) [address] [place] [address] GLOMERULAR FILTRATION RATE ML/MIN/1.73 SQ M.PREDICTED 90.8 mL/min/1.73m*2 Normal >60.0 [facility] Comment on above: Result Comment: [facility]???s estimated glomerular filtration rate (eGFR) will [...] group of individuals. Performed By: #### L [id number] #### [facility] ([facility]) [address] [place] [address] Glucose [Mass/Vol] 171 mg/dL High 70-100 [facility] Comment on above: Performed By: #### L [id number] #### [facility] ([facility]) [address] [place] [address] Potassium [Moles/Vol] 4.0 mmol/L Normal 3.5-5.1 [facility] Comment on above: Performed By: #### L [id number] #### [facility] ([facility]) [address] [place] [address] Sodium [Moles/Vol] 141 mmol/L Normal 136-145 [facility] Comment on above: Performed By: #### L [id number] #### [facility] ([facility]) [address] [place] [address] Urea nitrogen [Mass/Vol] 21 mg/dL Normal 7-25 [facility] Comment on above: Performed By: #### L [id number] #### [facility] ([facility]) [address] [place] [address] UREA NITROGEN/CREATININE (MASS RATIO) IN SER/PLAS 26.92 Normal [facility] Comment on above: Performed By: #### L [id number] #### [facility] ([facility]) [address] [place] [address] CBCon 10-24-2022 Erythrocyte distribution width (RBC) [Ratio] 14.4 % Normal 11.5-15.0 [facility] Comment on above: Performed By: #### L [id number] #### [facility] ([facility]) [address] [place] [address] ERYTHROCYTE MEAN CORPUSCULAR HEMOGLOBIN CONCENTRATION (G/DL) BY AUTOMATED 33.0 g/dL Normal 32.0-35.0 [facility] Comment on above: Performed By: #### L [id number] #### [facility] ([facility]) [address] [place] [address] Hematocrit (Bld) [Volume fraction] 36.1 % Low 39.0-55.0 [facility] Comment on above: Performed By: #### L [id number] #### [facility] ([facility]) [address] [place] [address] Hemoglobin (Bld) [Mass/Vol] 11.9 g/dL Low 13.0-17.0 [facility] Comment on above: Performed By: #### L [id number] #### [facility] ([facility]) [address] [place] [address] MCH (RBC) [Entitic mass] 28.2 pg Normal 27.0-33.0 [facility] Comment on above: Performed By: #### L [id number] #### [facility] ([facility]) [address] [place] [address] MCV (RBC) [Entitic vol] 85.5 fL Normal 82.0-98.0 [facility] Comment on above: Performed By: #### L [id number] #### [facility] ([facility]) [address] [place] [address] PLATELETS (10*3/UL) IN BLOOD AUTOMATED COUNT 241 10*3/uL Normal 150-400 [facility] Comment on above: Performed By: #### L [id number] #### [facility] ([facility]) [address] [place] [address] RBC (Bld) [#/Vol] 4.22 10*6/uL Normal 4.20-5.70 [facility] Comment on above: Performed By: #### L [id number] #### [facility] ([facility]) [address] [place] [address] WBC (Bld) [#/Vol] 8.39 10*3/uL Normal 4.00-10.60 [facility] Comment on above: Performed By: #### L [id number] #### [facility] TIFFANY DRUMMOND) [address] [place] [address] HPon 10-24-2022 HP -- Attestation signed by [...] forward with the procedure. Lavern Lang MD Production Support Consultant - PGY4 [facility] Normal [facility] Office Visiton 10-16-2022 Follow-up visit [id number] Gadiel Liang 1950 M Date Provider Department Center 10/16/2022 Uriah6-JESÚS BOLAÑOS RO [place] Family History Problem Relation Age of [...] Paternal Grandmother Paternal Grandfather Other Level of Service:[address] DE OFFICE/OUTPATIENT NEW LOW MDM 30-44 MINUTES Normal [facility] Covid-19 PCR (CVDTB)on SARS-CoV-2 (COVID-19) RNA HANSA+probe Ql (Unsp spec) Not detected Normal NOT DETECTED [facility] Comment on above: Result Comment: When diagnostic [...] for this test is supported by the [place] of Health and Human Service's declaration that [...] used). Performed By: #### C VDTBH #### [facility] [address] [place] [address] Dr. Esme Jackson INFLUENZA A AND B AGon 10-15 INFLUANE SEE BELOW Normal [facility] Comment on above: Result Comment: Nega tive for Flu A protein angiten. Infection due to Flu A cannot be ruled out. Flu A angiten in the sample may be below the detection limit of the test. Performed By: #### F T4 #### [facility] [address] [address] [address] Es[facility] SEE BELOW Normal [facility] Comment on above: Result Comment: Nega tive for Flu B protein antigen. Infection due to Flu B cannot be ruled out. Flu B antigen in the sample may be below the detection limit of the test. Performed By: #### F T4 #### [facility] [address] [place] [address] Dr. Esme Jackson INFLUENZA A AG Negative Normal NEGATIVE SEE COMMENT [facility] Comment on above: Performed By: #### F T4 #### [facility] [address] [address] [address] Esme Jackson INFLUENZA B AG Negative Normal NEGATIVE SEE COMMENT [facility] Comment on above: Performed By: #### F T4 #### [facility] [address] [place] [address] Dr. Esme Jackson INTERNAL CONTROLS Within Normal Limits Normal Wi thin Normal Limits [facility] Comment on above: Performed By: #### F T4 #### [facility] [address] [place] [address] Dr. Esme Jackson XR CHEST 2 Von [...] RAPHAEL NUNEZ Date: 2022-10-15 10:08 Normal [facility] Follow Up (Endocrinology)on 10-10-2022 Follow Up (Endocrinology) [...] insulin; CATIE = N; Verified Transmission to [id number]; Last Updated By: [employer]; 10/10/2022 11:29:03 AM Albumin, Urine Spot; Status:Active; [...] Type 2 (more content not included)... Normal [facility] CNPNon 07-02-2022 CNPN Telephone (ENDOMN) GADIEL LIANG ([id number]) 1950 M Date Time Provider Department 07/02/22 MANDIE OSBORNE ENDOMN During your visit today, we recorded the following information about you: Janee Sorensencci 07/02/2022 2:40 PM Signed Received Thyroid US report from [facility]. Indexed into chart. Allergies As of Date: 07/02/2022 Noted Allergy Reaction LISINOPRIL 04/28/2015 14 - Other: See Comments Comments: Fatigue Date Reviewed: 01/21/2019 Reviewed by: Maricruz Allison Ma - Fully Assessed Reason for Visit: Received Outside Medical Records [[id number]] Cmt: Received Thyroid US report from [facility]. Indexed into chart. Prescriptions as of 07/02/2022 [...] LANCETS) lancets Use as instructed - Insulin Bellerose, Disposable, (BD ULTRAFINE III MINI PEN) 31 [...] Status:Closed by JANEE HUGHES on 07/02/22 Normal [facility] CORTISOL Bri 06-25-2022 Cortisol AM 19.6 ug/dL Critically high 6.2-19.4 [facility] Comment on above: Performed By: #### C ORTAM #### [facility] [address] [address] [address] Esme Jackson MICROALBUMIN URINEon 022 Albumin, Urine 36.5 ug/mL Normal Not Estab. [facility] Comment on above: Performed By: #### F T4 #### [facility] [address] [address] [address] Esme Jackson FREE T4on 06-22-2022 Free T4 [Mass/Vol] 1.22 ng/dL Normal 0.76-1.46 [facility] Comment on above: Performed By: #### F T4 #### [facility] [address] [place] [address] Dr. Esme Jackson GLYCOHEMOGLOBIN A1Con 2021 ADA RECOMMENDATION SEE BELOW Normal [facility] Comment on above: Result Comment: ADA RECOMMENDED LIMIT 4.0 - 6.0 ADA THERAPEUTIC TARGET < 7.0 ACTION SUGGESTED > 7.0 Performed By: #### F T4 #### [facility] [address] [address] [address] Esme Jackson Glucose [Mass/Vol] 194 mg/dL Normal [facility] Comment on above: Performed By: #### F T4 #### [facility] [address] [place] [address] Dr. Esme Jackson HbA1c (Bld) [Mass fraction] 8.4 % Critically high 4.5-6.2 [facility] Comment on above: Performed By: #### F T4 #### [facility] [address] [place] [address] Dr. Esme Jackson LIPID PROFILEon 06-22-2022 CHOL-HDL RATIO NORM SEE BELOW Normal [facility] Comment on above: Result Comment: 3.3 - 4.4 LOW RISK 4.4 - 7.1 AVERAGE RISK 7.1 - 11.0 MODERATE RISK >11.0 HIGH RISK Performed By: #### F T4 #### [facility] [address] [place] [address] Dr. Esme Jackson Cholesterol [Mass/Vol] 153 mg/dL Normal <=200 [facility] Comment on above: Performed By: #### F T4 #### [facility] [address] [address] [address] Esme Jackson Cholesterol in HDL [Mass/Vol] 55 mg/dL Normal 40-60 [facility] Comment on above: Performed By: #### F T4 #### [facility] [address] [address] [address] Esme Jackson Cholesterol in LDL [Mass/Vol] 82.2 mg/dL Normal [facility] Comment on above: Performed By: #### F T4 #### [facility] [address] [address] [address] Esme Jackson Cholesterol.total/C holesterol in HDL [Mass ratio] 2.8 {ratio} Normal [facility] Comment on above: Performed By: #### F T4 #### [facility] [address] [address] [address] Esme Jackson HDL NORMAL > or = 60 mg/dl - LO W CARDIOVASCULAR RISK <40 mg/dl - HIGH CARDIOVASCULAR RISK Normal [facility] Comment on above: Performed By: #### F T4 #### [facility] [address] [address] [address] Esme Jackson LDL CALC NORMAL SEE BELOW Normal [facility] Comment on above: Result Comment: <100 mg/dl OPTIMAL 100 - 129 mg/dl NEAR OR ABOVE OPTIMAL 130 - 159 mg/dl BORDERLINE HIGH 160 - 189 mg/dl HIGH >190 mg/dl VERY HIGH Performed By: #### F T4 #### [facility] [address] [address] [address] Esme Jackson Triglyceride [Mass/Vol] 79 mg/dL Normal <=150 [facility] Comment on above: Performed By: #### F T4 #### [facility] [address] [place] [address] Dr. Esme Jackson VLDL CALC 15.8 mg/dL Normal [facility] Comment on above: Performed By: #### F T4 #### [facility] [address] [address] [address] Esme Jackson PROF 14(COMP METB)on 022 Albumin [Mass/Vol] 3.9 g/dL Normal 3.4-5.0 [facility] Comment on above: Performed By: #### F T4 #### [facility] [address] [address] [address] Esme Jackson Albumin/Globulin [Mass ratio] 1.1 {ratio} Normal [facility] Comment on above: Performed By: #### F T4 #### [facility] [address] [address] [address] Esme Jackson ALP [Catalytic activity/Vol] 57 U/L Normal 46-116 [facility] Comment on above: Performed By: #### F T4 #### [facility] [address] [place] [address] Dr. Esme Jackson ALT [Catalytic activity/Vol] 22 U/L Normal 16-63 [facility] Comment on above: Performed By: #### F T4 #### [facility] [address] [address] [address] Esme Jackson Anion gap [Moles/Vol] 12.6 mmol/L Normal [facility] Comment on above: Performed By: #### F T4 #### [facility] [address] [place] [address] Dr. Esme Jackson AST [Catalytic activity/Vol] 18 U/L Normal 15-37 [facility] Comment on above: Performed By: #### F T4 #### [facility] [address] [address] [address] Esme Jackson Bilirubin [Mass/Vol] 1.1 mg/dL Critically high 0.2-1.0 [facility] Comment on above: Performed By: #### F T4 #### [facility] [address] [address] [address] Esme Jackson Calcium [Mass/Vol] 9.0 mg/dL Normal 8.5-10.1 [facility] Comment on above: Performed By: #### F T4 #### [facility] [address] [place] [address] Dr. Esme Jackson Chloride [Moles/Vol] 103 mmol/L Normal 98-107 [facility] Comment on above: Performed By: #### F T4 #### [facility] [address] [place] [address] Dr. Esme Jackson CO2 [Moles/Vol] 27.2 mmol/L Normal 21.0-32.0 [facility] Comment on above: Performed By: #### F T4 #### [facility] [address] [address] [address] Esme Jackson Creatinine [Mass/Vol] 0.90 mg/dL Normal 0.70-1.30 [facility] Comment on above: Performed By: #### F T4 #### [facility] [address] [place] [address] Dr. Esme Jackson EGFR-AF CITIZEN OF [place] >60 Normal >=60 [facility] Comment on above: Performed By: #### F T4 #### [facility] [address] [place] [address] Dr. Esme Jackson EGFR-NON AF CITIZEN OF [place] >60 Normal >=60 [facility] Comment on above: Performed By: #### F T4 #### [facility] [address] [place] [address] Dr. Esme Jackson Globulin (S) [Mass/Vol] 3.4 g/dL Normal [facility] Comment on above: Performed By: #### F T4 #### [facility] [address] [place] [address] Dr. Esme Jackson Glucose [Mass/Vol] 185 mg/dL Critically high 74-106 [facility] Comment on above: Performed By: #### F T4 #### [facility] [address] [place] [address] Dr. Esme Jackson Potassium [Moles/Vol] 3.8 mmol/L Normal 3.5-5.1 [facility] Comment on above: Performed By: #### F T4 #### [facility] [address] [place] [address] Dr. Esme Jackson Protein [Mass/Vol] 7.3 g/dL Normal 6.4-8.2 [facility] Comment on above: Performed By: #### F T4 #### [facility] [address] [place], [place] [address] Dr. Esme Jackson Sodium [Moles/Vol] 139 mmol/L Normal 136-145 [facility] Comment on above: Performed By: #### F T4 #### [facility] [address] [place], [place] [address] Dr. Esme Jackson Urea nitrogen [Mass/Vol] 12.0 mg/dL Normal 7.0-18.0 [facility] Comment on above: Performed By: #### F T4 #### [facility] [address] [place], [place] [address] Dr. Esme Jackson Urea nitrogen/Creatinine [Mass ratio] 13.3 mg/mg Normal [facility] Comment on above: Performed By: #### F T4 #### [facility] [address] [place], [place] [address] Dr. Esme Jackson US THYROIDon 06-22-2022 US [...] nodules. 1 year follow-up recommended TI-RADS: The [employer] TI-RADS committee's white paper recommendations for thyroid lesions classified as TR5 (highly suspicious) are listed below: > 0.5 cm. Annual ultrasound follow-up for up to 5 years. > 1.0 cm. FNA. J. Am Dionicio Radiol 2017;14:587-595. Electronically authenticated by: GEORGIE DAVIES Date: 2022-06-22 17:28 Normal [facility] Follow Up (Endocrinology)on 04-24-2022 Follow Up (Endocrinology) [...] Services - Lab To Draw (Blood Test); Due:[id number];Ordered; For:Central hypothyroidism, Hyperlipemia, Hypogonadism male, Pituitary macroadenoma, Thyroid nodule, Type 2 diabetes mellitus with other specified complication, with long-term current use of insulin; Ordered By:Mandie Osborne; Cortisol A.M.; Status:Active; Requested for:24Apr2022; Perform:Lab Services - Lab To Draw (Blood Test); Due:[id number];Ordered; For:Central hypothyroidism, Hyperlipemia, Hypogonadism male, Pituitary macroadenoma, [...] Thyroid; Status:Hold For - Scheduling; Requested for:24Apr2022; Perform:[facility]; Due:23Jul2022;Ordered; For:Central hypothyroidism, Hyperlipemia, [...] nodule; CATIE = N; Verified Transmission to [facility]; Last Updated By: Chun PierreNetzoptiker; 04/24/2022 10:33:22 AM Hypogonadism male, Pituitary macroadenoma Renew: Testosterone 50 MG/5GM (1%) Transdermal Gel; APPLY 1 PACKET ONE TIME DAILY DIRECTED Rx By: Mandie Osborne; Dispense: 0 Days ; #:90 X 5 GM Package; Refill: 1;For: Hypogonadism male, Pituitary macroadenoma; CATIE = N; Verified Transmission to [facility]; Last Updated By: Chun PierreNetzoptiker; 04/24/2022 10:33:21 AM Pituitary macroadenoma Renew: Cabergoline 0.5 MG Oral Tablet; Take 1 tablet every other day Rx By: Mandie Osborne; Dispense: 80 Days ; #:40 Tablet; Refill: 3;For: Pituitary macroadenoma; CATIE = N; Verified Transmission to [facility]; Last Updated By: Henry [employer]; 04/24/2022 10:33:26 AM Type 2 diabetes mellitus with other specified complication, with long-term current use of insulin Renew: Accu-Chek Alicia Plus In Vitro Strip; TEST TWICE DAILY Rx B (more content not included)... Normal [facility] Tobacco Screening.on 022 Adult depression screening assessment No [facility]ad[facility] [address] Work Phone: Fall risk assessment a) No falls within the last year BE-Acvkaezi-[facility] [address] Work Phone: Tobacco use status [facility]PH[facility] b) No GY-Zcpiwmhc-Lr[facility] [address] Work Phone: ISTAT XRay CREon 10-13-2021 Creatinine [Mass/Vol] 0.8 mg/dL Normal 0.6-1.3 [facility] Comment on above: Result Comment: ER/E SD physician is notified/shown all ISTAT results. Critical values may be confirmed by laboratory testing if deemed necessary by ER attending doctor. Performed By: #### I SCRE #### [address] Point of Care testing , ISTAT GFR ( > 60 Normal [facility] Comment on above: Result Comment: GFR estimated reference range: According to KDOQI guidelines, <60 ml/min/1.73m2 is sufficient to diagnose a patient with chronic kidney disease. PERFORMED BY: [place] [address] PATHOLOGIST SIDE STITCHER ANJANA SEWELL M.D. Performed By: #### I SCRE #### [facility] [address] [place] [address] Point of Care testing , ISTAT GFR (Non- Am > 60 Normal [facility] Comment on above: Performed By: #### I SCRE #### [address] Point of Care testing , MR head/brain wo/w conon MR head/brain wo/w con [facility] [place] [address] [place] [address] MRI Report Signed Patient: Gadiel Liang MR#: [id number] : 1950 Acct:[id number] Age/Sex: 71 / M ADM Date: 10/13/21 Loc: [facility] Room: Type: [facility] Attending Dr: Rj Oropeza DO Ordering [...] Lugo Jr., M.D.10/13/2021 2:48 PM Dictation Location: [place] [address] Transcribed By: [facility] 10/13/21 1448 Dictated By: Carlos Lugo Jr, MD 10/13/21 1423 Signed By: 10/13/[address] [facility] Vital Signs Date Time Vital Sign Value Performing Clinician Facility 10-29-2023 13:30-0500 Body height 182.88 cm Joseluis Quiroz Other [facility] Other 10-29-2023 13:30-0500 Body mass index (BMI) [Ratio] 26.09 kg/m2 Joseluis Quiroz Other [facility] Other 10-29-2023 13:30-0500 Body weight 87.27 kg Joseluis Quiroz Other [facility] Other 10-29-2023 13:30-0500 Diastolic blood pressure 72 mm[Hg] Joseluis Quiroz Other [facility] Other 10-29-2023 13:30-0500 SaO2% (BldA) [Mass fraction] 93 % Joseluis Quiroz Other [facility] Other 10-29-2023 13:30-0500 Systolic blood pressure 130 mm[Hg] Joseluis Quiroz Other [facility] Other 08-19-2023 11:00-0400 Body height 182.88 cm Joseluis Quiroz Other [facility] Other 08-19-2023 11:00-0400 Body mass index (BMI) [Ratio] 25.36 kg/m2 Joseluis Quiroz Other [facility] Other 08-19-2023 11:00-0400 Body weight 84.82 kg Joseluis Quiroz Other [facility] Other 08-19-2023 11:00-0400 Diastolic blood pressure 61 mm[Hg] Joseluis Quiroz Other [facility] Other 08-19-2023 11:00-0400 Systolic blood pressure 126 mm[Hg] Joseluis Quiroz Other [facility] Other Encounters Encounter Date Encounter Type Care Provider Facility Start: 12-23-2023 End: 12-23-2023 ambulatory Joseluis Quiroz Other [facility] Other Start: 12-23-2023 Telephone encounter Joseluis Quiroz [facility] Start: 10-29-2023 End: 10-29-2023 ambulatory Jsoeluis Quiroz Other [facility] Other Start: 10-29-2023 Office outpatient visit 15 minutes Joseluis Quiroz [facility] Start: 10-16-2023 End: 10-16-2023 ambulatory Joseluis Quiroz Other [facility] Other Start: 10-16-2023 Telephone encounter Joseluis Quiroz [facility] Start: 09-13-2023 End: 09-13-2023 ambulatory Joseluis Quiroz Other [facility] Other Start: 09-13-2023 Telephone encounter Joseluis Quiroz [facility] Start: 09-10-2023 End: 09-10-2023 ambulatory Joseluis Quiroz Other [facility] Other Start: 09-10-2023 Telephone encounter Joseluis Quiroz [facility] Start: 08-19-2023 End: 08-19-2023 ambulatory Joseluis Quiroz Other [facility] Other Start: 08-19-2023 Office outpatient visit 15 minutes Joseluis Quiroz [facility] Start: 07-31-2023 End: 07-31-2023 ambulatory Joseluis Quiroz Other [facility] Other Start: 07-31-2023 Telephone encounter Joseluis Quiroz [facility] Start: 07-30-2023 End: 07-30-2023 ambulatory [facility] Start: 06-05-2023 End: 06-05-2023 ambulatory [facility] Start: 05-29-2023 Rx Renewal [address] Work Phone: [facility] [address] Work Phone: Start: 05-02-2023 ambulatory [facility] Start: 05-02-2023 End: 05-03-2023 Evaluation and management of inpatient [facility] Start: 04-30-2023 End: 05-03-2023 ambulatory [facility] Start: 04-26-2023 End: 04-27-2023 ambulatory [facility] Start: 04-08-2023 Rx Renewal [address] Work Phone: [facility] [place] [address] [place] Work Phone: Start: 03-20-2023 End: 03-20-2023 ambulatory [facility] Start: 02-28-2023 End: 03-01-2023 ambulatory [facility] Facility:H1 Start: 01-30-[address] JOSELUIS QUIROZ Facil ity:H1 Start: 01-29-2023 End: 01-29-2023 ambulatory [facility] Start: 01-22-2023 AUDIT [address] Work Phone: [facility] Work Phone: Start: 01-22-2023 Rx Renewal [address] Work Phone: [facility] [place] [address] [place] Work Phone: Start: 01-03-2023 End: 01-29-[address] JOSELUIS QUIROZ Facility:H1 Start: 11-28-2022 End: 11-29-2022 ambulatory JANEE REDDY Facility:H1 Start: 11-28-2022 End: 11-28-2022 ambulatory JANEE REDDY [facility] Start: 11-15-2022 Emergency department patient visit LORY [facility] Start: 11-15-2022 End: 11-20-2022 Evaluation and management of inpatient ESTEBANJavon JAMES [facility] Start: 11-12-[address] JOSELUIS Vargas ity:H1 Start: 11-10-2022 End: 11-10-[address] JEANNE ALLEN . Facility:H1 Start: 10-26-2022 End: 10-26-2022 ambulatory TONY ADHIKARI [facility] Start: 10-24-2022 ambulatory [facility] Start: 10-24-2022 End: 10-24-2022 ambulatory [facility] Start: 10-16-2022 ambulatory [facility] Start: 10-15-2022 End: 10-15-[address] RAPHAEL NUNEZ Facility:H1 Start: 10-10-2022 Office outpatient visit 25 minutes [address] Work Phone: ER-Tpwunyjfpcuxf-[facility] [place] [address] Work Phone: Start: 10-10-2022 ambulatory Referral Self Facility: [id number] Start: 09-28-2022 AUDIT [address] Work Phone: [facility] Work Phone: Start: 07-13-2022 Rx Renewal [address] Work Phone: [facility] [address] [place] Work Phone: Start: 07-02-2022 Telephone encounter Mandie sun MD Work Phone: Endocrinology Comment on above: [facility] (Received Thyroid US report from [facility]. Indexed into chart. ) Start: 06-22-2022 End: 06-23-[address] DOCTOR BUSBY Facility:H1 Start: 04-24-2022 Office outpatient visit 40 minutes [address] Work Phone: TO-Qpyiarss-[facility]umwr[facility] [address] Work Phone: Start: 04-24-[address] Cabrera Duenas acility:[id number] Start: 03-27-2022 AUDIT [address] Work Phone: QB-Zicomfngayjxg-YbybhjaChi [facility] Work Phone: Start: 01-23-2022 AUDIT [address] Work Phone: YP-Msdwgtemtljno-DixwxibChi [facility] Work Phone: Start: 12-11-2021 Rx Renewal [address] Work Phone: IQ-Azpfjcpkpnscr-RjoydcmChi [facility] Work Phone: Start: 11-08-2021 AUDIT [address] Work Phone: [facility] Work Phone: Start: 08-21-2021 AUDIT [address] Work Phone: SH-Eszlenbgueozs-YCL [place] [address] Work Phone: Start: 05-31-2021 AUDIT [address] Work Phone: KX-Waerbhkuoiwap-JCU [address] Work Phone: Start: 06-20-2017 End: 06-21-2017 Ambulatory DEFAULT PHYSICIAN Facility:[facility] Procedures Date Procedure Procedure Detail Performing Clinician Start: 01-29-2023 Follow-up visit Follow-up ELICEO PARKER ACKVNG Appendectomy [facility] [address] Work Phone: Arthroscopy of knee [facility] [address] Work Phone: Parathyroidectomy [facility] oss Work Phone: Vasectomy [facility] [address] Work Phone: Plan of Treatment Date Care Activity Detail Author Start: 10-10-2022 AMY, Provider: Mandie Osborne, Status: Pen, Time: 11:15 AM AMY, Provider: Mandie Osborne, Status: Pen, Time: 11:15 AM [facility] Work Phone: Start: 07-12-2022 Influenza vaccination INFLUENZA (#1) [facility] Start: 04-24-2022 AMY, Provider: Ynes Sahni, Status: Pen, Time: 1:00 PM AMY, Provider: Ynes Sahni, Status: Pen, Time: 1:00 PM [facility] Work Phone: Start: 11-11-2021 ADVANCE DIRECTIVE DISCUSSION ADVANCE DIRECTIVE DISCUSSION [facility] Start: 07-24-2019 Hemoglobin A1c/Hemoglobin.total in Blood HBA1C [facility] Start: 08-24-2017 Hepatitis B screening URINE ALBUMIN:CREATININE RATIO [facility] Start: 08-24-2017 Hepatitis B surface antibody level LDL CHOLESTEROL [facility] Start: 08-14-2017 3 comp foot exam completed DIABETIC FOOT EXAM [facility] Start: 11-22-2016 Hepatitis C antibody, confirmatory test DILATED RETINAL EXAM [facility] Start: 2016 PNEUMOCOCCAL: 65+ (1 - PCV) PNEUMOCOCCAL: 65+ (1 - PCV) [facility] Start: 2001 SHINGRIX VACCINE (1 of 2) SHINGRIX VACCINE (1 of 2) [facility] Start: 1996 COLOGUARD (FIT-DNA) COLOGUARD (FIT-DNA) [facility] Start: 1996 Colonoscopy COLONOSCOPY [facility] Start: 1996 COLORECTAL CANCER SCREENING COLORECTAL CANCER SCREENING [facility] Start: [address] COLONOGRAPHY [facility] Start: 1996 FECAL OCCULT BLOOD FECAL OCCULT BLOOD [facility] Start: 1996 SIGMOIDOSCOPY SIGMOIDOSCOPY [facility] Start: 1970 Urine microalbumin profile DTAP,TDAP,TD (1 - Tdap) [facility] Start: 1969 HEPATITIS C SCREENING HEPATITIS C SCREENING [facility] Start: 1963 Adult depression screening assessment DEPRESSION SCREENING [facility] Start: 02-08-1951 COVID-19 VACCINE (#1) COVID-19 VACCINE (#1) [facility] Start: 1950 ABDOMINAL AORTIC ANEURYSM SCREENING ABDOMINAL AORTIC ANEURYSM SCREENING [facility] Immunizations Immunization Date Immunization Notes Care Provider Kennedy lowe 08-15-2022 Fluzone High-Dose Quadrivalent 0.7 ML Intramuscular Suspension Prefilled Syringe [facility] Work Phone: GO-Bvrehivtlprkj-T [facility] Work Phone: 09-06-2021 Fluad Quadrivalent 0 .5 ML Intramuscular Prefilled Syringe [facility] Work Phone: EG-Intmkfjbwhnnv-U [facility] Work Phone: 01-18-2021 Neva COVID-19 Vac cine 0.5 ML Intramuscular Suspension [facility] Work Phone: SV-Kiftjsfgmuosa-G [facility] [address] Work Phone: 09-08-2020 Fluad Quadrivalent 0 .5 ML Intramuscular Prefilled Syringe [facility] Work Phone: XJ-Spqnzujfvqfcr-S [facility] Work Phone: 08-24-2020 influenza, seasonal, injectable [facility] Work Phone: CI-Ykkujednmhhtw-P [facility] Work Phone: 08-24-2019 Seasonal trivalent influenza vaccine, adjuvanted, preservative free [facility] Work Phone: QB-Vobfahjseqxta-Y [facility] [address] Work Phone: 08-04-2018 influenza, injectabl e, quadrivalent, preservative free [facility] Work Phone: XQ-Emwcegwdqxmxy-B [facility] Work Phone: 07-19-2018 influenza, high dose seasonal, preservative-free [facility] Work Phone: VW-Eiwhrulehrymr-O [facility] Work Phone: 08-21-2017 influenza, high dose seasonal, preservative-free [facility] Work Phone: NA-Pgqhjfewiyhbx-J [facility] Work Phone: 08-12-2017 pneumococcal polysaccharide vaccine, 23 valent [facility] Work Phone: ZX-Wtcrzdtalopcy-Z [facility] Work Phone: 08-12-2017 zoster vaccine recombinant [facility] Work Phone: ZN-Eibogzmoukjeh-T [facility] Work Phone: 08-21-2016 influenza, high dose seasonal, preservative-free [facility] Work Phone: JK-Fjdqzavomxmmd-U [facility] Work Phone: 2015 influenza, seasonal, injectable, preservative free [facility] Work Phone: OZ-Efdipkedysxjj-E [facility] Work Phone: 08-04-2014 influenza, seasonal, injectable [facility] Work Phone: NK-Xubjvktisnuvi-Z [facility] [address] Work Phone: 08-04-2014 pneumococcal polysaccharide vaccine, 23 valent [facility] Work Phone: VB-Rvctdjzdynree-O [facility] [address] Work Phone: 08-04-2014 zoster vaccine, live [facility] Work Phone: FD-Dddqxekvymfqk-L [facility] [address] Work Phone: Payers Date Payer Category Payer Unknown 1958 Self-pay [id number] 1958 Unknown [id number] 1950 Unknown [id number] 2.16. [id number] 1950 Unknown [id number] 2.16. [id number] 1951 Unknown [id number] 2.16.84 [id number] 1951 Unknown [id number] 2.16.84 [id number] 1951 Unknown [id number] 2.16.84 [id number] 1951 Unknown [id number] 2.16.84 [id number] 1951 Unknown [id number] 2.16.84 [id number] 1950 Unknown [id number] 2.16.84 [id number] 1950 Unknown [id number] 2.16.84 [id number] Unknown [id number] 2.16.84 [id number] Social History Date Type Detail Facility Former smoker Former smoker [facility] [address] Work Phone: Start: 06-30-2013 Tobacco smoking status NHIS Ex-smoker [facility] End: 12-12-1992 History of tobacco use Current smoker [facility] End: 12-12-1992 History of tobacco use Cigarette Smoker [facility] Start: 06-30-2013 Tobacco use and exposure Smokeless tobacco non-user [facility] Start: 01-21-2019 Alcohol intake Current non-dr pattern changer of alcohol (finding) [facility] Start: 1950 Sex Assigned At Not on file C [facility] Sex Assigned At Sex Assigned At [facility] th [employer] Other Medical Equipment Procedure Code Equipment Code [...] improved w present med increase in dose. [employer] Other 11-03-2023 Evaluation note* Encounter Date Diagnosis Assessment Notes Treatment Notes Treatment Clinical Notes Sep, Anxiety (ICD-10 - F41.9) [employer] Other 10-31-2023 Evaluation note* Encounter Date Diagnosis Assessment Notes Treatment Notes Treatment Clinical Notes Aug, Anxiety (ICD-10 - F41.9) [employer] Other 10-09-2023 Evaluation note* Encounter Date Diagnosis [...] from 25mg to 50mg for better results. [employer] Other 09-19-2023 NotePatient here for 2 mo follow up persistent afib and systolic heart failure. Doing great. Denies chest pain, SOB, palpitations, and bleeding on Eliquis. Review of Systems All other systems reviewed and are negative.[facility] 07-30-2023 NoteUT Electrophysiology Consult Note [facility] Reason for Consultation: Atrial fibrillation, s/p [...] on 10/15 and he went to the [facility] emergency department was found to be in [...] tablet 3 dapagliflozin (Farx (more content not included)...[facility]07-26-2023 NoteUT Electrophysiology Consult Note [facility] Reason for Consultation: Atrial fibrillation, s/p [...] on 10/15 and he went to the [facility] emergency department was found to be in [...] Lantus Solostar U-100 Insul (more content not included)...[facility]07-26-2023 NotePatient here for follow up ablation. Doing very well. Denies chest pain, SOB, palpitations, and bleeding on Eliquis. Review of Systems All other systems reviewed and are negative.[facility] 05-03-2023 NoteProblem: Safety - Adult Goal: [...] The clinical goals for the shift include comfortUnOhioHealth Grove City Methodist Hospital06-22-2023 NoteATRIAL FIBRILLATION ABLATION PROCEDURE NOTE DATE OF PROCEDURE: 05/02/2023 PERFORMING PHYSICIAN: Dr. Eliceo Rosenberg PERSONAL HEALTH COACH: Dr. Louisa Bowers CONSENT: Patient NAME OF [...] insulin, vasovagal syncope. He was diagnosed at [facility] emergency department with Chris andrade. He was [...] Coumadin ridge. Esophagus was mapped using the [employer] 3D mapping software and noted to be [...] from the TV to the IVC aspect. Anayeli (more content not included)...[facility]06-22-2023 Note Patient: Gadiel Liang Procedure Summary Date: 05/02/23 Room / Location: [facility] HEMATOLOGY TECHNOLOGIST 1 EP / [facility] HV VASCULAR LAB (Cath) Anesthesia Start: 1357 Anesthesia Stop: 1710 Procedure: Ablation atrial fibrillation Diagnosis: Persistent atrial fibrillation (CMS/HCC) (Persistent atrial fibrillation (CMS/HCC) [I48.19]) Providers: Eliceo Rosenberg MD Responsible Provider: Rony Pretty MD Anesthesia Type: general ASA Status: 4 Anesthesia Type: general Vitals Value Taken Time BP 164/68 05/02/23 1710 Temp 36.4 ???C (97.5 ???F) 05/02/23 1710 Pulse 58 05/02/23 1710 Resp 14 05/02/23 1710 SpO2 99 % 05/02/23 1710 Anesthesia Post Evaluation Patient location during evaluation: PACU Patient participation: complete - patient participated Level of consciousness: awake and alert Pain management: adequate Multimodal analgesia pain management approach Airway patency: patent Cardiovascular status: acceptable Respiratory status: acceptable and room air Hydration status: acceptable Patient is hemodynamically stable and is able to be discharged from PACU per anesthesia protocol. No notable events documented.[facility]06-22-2023 Note Patient: Gadiel Liang Procedure Summary Date: 05/02/23 Room / Location: [facility] HEMATOLOGY TECHNOLOGIST 1 / [facility] VASCULAR LAB (Cath) Anesthesia Start: 1357 [...] uneventful Patient condition is: stable Comments: ECG, [id number] Grove City Methodist Hospital06-22-2023 NoteArterial Line: Date/Time: 05/02/2023 1:55 PM [...] 1 % SubQ, 2 mL Staffing Performed: resident/BENCH TOOL MAKER/CAA Anesthesiologist: Rony Pretty MD Resident/BENCH TOOL MAKER: Wallace Atkinson MDUnOhioHealth Grove City Methodist Hospital06-22-2023 Note Airway Date/Time: 05/02/2023 2:19 PM Urgency: elective Airway not difficult General Information and Staff Patient location during procedure: OR Anesthesiologist: Rony Pretty MD Resident/BENCH TOOL MAKER/CAA: Dean Rajguru, DO Performed: resident/BENCH TOOL MAKER/CAA Indications and Patient Condition Indications for airway [...] approach: 1 Number of other approaches attempted: 0[facility] 05-02-2023 NotePatient: Gadiel Liang Procedure Information Date/Time: 05/02/23 1230 Procedure: Ablation atrial fibrillation Location: [facility] HEMATOLOGY TECHNOLOGIST 1 EP / [facility] HVC VASCULAR LAB (Cath) Providers: Eliceo Rosenberg [...] who. Plan discussed with resident. Additional Equipment RequestsKnox Community Hospital06-20-[address] Electrophysiology Consult Note [facility] Date of Telehealth Visit: 04/30/23 The patient was notified that using 3rd democrat telecommunication application (e.g., [employer]) is not HIPPA compliant and may carry some privacy risks. Yes The visit was conducted [id number] with the use of audio and video [...] on 10/15 and he went to the [facility] emergency department was found to be in [...] tablet 3 Lantus Solost (more content not included)...[facility] 04-26-2023 NoteProcedure: Multidetector CT thoracic Angiogram [...] low as reasonably achievable. Electronically signed: Eulalio Georges.[facility] HospitalComment on above:Order Comment: Please schedule prior to April [id number] NotePatient here for follow up echo done 02/28/2023. Review of Systems Constitutional: Positive for malaise/fatigue. Cardiovascular: Positive for dyspnea on exertion. Musculoskeletal: Positive for muscle weakness. Neurological: Positive for excessive daytime sleepiness, loss of balance and weakness. All other systems reviewed and are negative.[facility] 03-20-2023 NoteUT Electrophysiology Consult Note [facility] Reason for Consultation: Atrial fibrillation HPI: Patient [...] on 10/15 and he went to the [facility] emergency department was found to be in [...] test strp strip [DISCONTINUED (more content not included)...[facility] 01-29-2023 NoteUT Electrophysiology Consult Note [facility] Reason for Consultation: Atrial fibrillation HPI: Pt [...] on 10/15 and he went to the [facility] emergency department was found to be in [...] before breakfast. Do not open capsule. lancets [facility] See administration instructions. levothyroxine (Synthroid, Levoxyl) 75 [...] nosebleeds, Mouth/Throat: no so (more content not included)...[facility]01-18-2023 NotecasUniversity of [facility]01-18-2023 Note Continue to monitorUnOhioHealth Grove City Methodist Hospital01-18-2023 Noteas above- s/p DCCV on 10/24. Continue Eliquis and Carvedilol. [id number] 7, D/W Dr Shakira- EP and he recommends pt to start amiodarone for antiarrythmic and plan for outpt cardioversionUnOhioHealth Grove City Methodist Hospital01-18-2023 Note Plan for cardioversion outpt- CVL to call with scheduling s/p DCCV on 10/24. Continue Eliquis and Carvedilol. [id number]- 7, D/W Dr Fabián CH and he recommends pt to start amiodarone for antiarrythmic and plan for outpt cardioversionUnOhioHealth Grove City Methodist Hospital01-18-2023 NoteNYHC II-III Currently euvolemic, without excerbation. Continue GDMT- lipitor, coreg, farxiga, lasix, lisinopril and aldactone Check CMP today Monitor daily weights, I&O, fluid restriction 1.5-2L/day, renal function and electrolytesUnOhioHealth Grove City Methodist Hospital01-18-2023 NotePatient here for follow up right heart cath and [facility] for CHF. states he's still very weak s/p hospital stay. She says he isn't eating like he should. Denies chest pain and bleeding on Eliquis. Review of Systems Constitutional: Positive for malaise/fatigue. Musculoskeletal: Positive for muscle weakness. Neurological: Positive for excessive daytime sleepiness and weakness. All other systems reviewed and are negative.[facility] 11-28-2022 NoteUTP CARDIOLOGY PROGRESS NOTE HPI: Gadiel Liang is a 72 y.o. male here for Congestive Heart Failure and Atrial Fibrillation Patient here for follow up right heart cath and [facility] for CHF. states he's still very weak [...] lab values have been (more content not included)...[facility]01-10-2023 NoteHospital Medicine Discharge Summary Final Discharge Diagnosis: Acute on chronic systolic congestive heart failure (CMS/HCC) Acute on Chronic HFrEF 20%, improved Positive stress s/p heart cath Afib, on eliquis IDDM, controlled Hypothyroidism GERD Admission Diagnosis: Acute on chronic systolic congestive heart failure (CMS/HCC) [I50.23] Hospital course: Gadiel Liang is an 72 y.o. male with PMH significant for PAF on eliquis, chronic HFrEF (EF of 20%), PFO per MOMO, IDDM, hypothyroidism, and GERD who presents to [facility] ED with chief complaint of shortness of breath . Dyspnea has been present for the past several weeks and progressively worsening. Patient also reports significant generalized fatigue and weakness that is worsening with the dyspnea. He also reports worsening BLE edema. Patient recently underwent DC cardioversion on 10/24 at [facility] that was successful. He does not know when he converted back to A. Fib. About 1 week ago, he had a positive outpatient stress test. He was recently seen at the [facility] ED on 11/10 for the same symptoms [...] ablation for his afib outpatient. Dear Dr. Ellie MD, Gadiel is advised to follow up with you within 1-2 weeks. Follow-up with: Cardiology Scheduled appointments: Future Appointments Date Time Provider Department Center 11/28/2022 2:55 PM Janee Reddy NP [facility] Your medication list START taking these medications [...] Medications These medications were sent to [facility] - [place], [place] - [address], [facility] [address] amiodarone 200 mg tablet amiodarone 200 mg tablet amiodarone 400 mg tablet atorvastatin 40 mg tablet carvedilol 6.25 mg tablet dapagliflozin 10 mg furosemide 40 mg tablet Gadiel has No Known Allergies. Disposition: Home or Self Care Discharge Condition: Good Code Status: Prior Diagnostic Results Hematol (more content not included)...[facility] 11-20-2022 NoteCardiology Progress Note Reason for [...] post DC cardioversion in 10/24. 3/PFO with xlyz-sw-erlrb shunt. 4/hypertension, uncontrolled Plan -HFrEF 20-25% NYHA class II-III. Continue GDMT- No ASA with eliquis, continue lipitor 40 mg daily, Lisinopril 5mg, Carvedilol 6.25mg BID, Farxiga 10 mg and Lasix 40mg daily. Continue to monitor strict intake and output, daily weights, and maintain fluid restriction. -AF s/p DCCV on 10/24. Continue Eliquis and Carvedilol. [id number]- 7, D/W Dr Rosenberg- EP and he recommends pt to start amiodarone for antiarrythmic and plan for outpt cardioversion and f/U with EP in [facility]. F/U with Cardiology heart failure clinic as scheduled, will need repeat CMP in 1 week after discharge. Janee Reddy CHARGE HISTOTECHNOLOGIST Division of Cardiology, [facility] Ph- [phone] P (more content not included)...[facility]01-10-2023 NoteHospital Medicine Daily Progress Note - 11/20/2022 4:20 PM; Room: [address] [place] [address] Admission: 11/15/2022 12:31 PM; Length of stay: 5 days THE HOSPITALIST TEAM PREFERS TO USE [employer] CHAT FOR COMMUNICATION 7AM-7PM. IF I DO NOT RESPOND WITHIN 15 MINUTES, PLEASE PAGE ME/CALL THROUGH THE PIPELINES LABORER. FROM 7PM-7AM, PLEASE PAGE [phone](COVR) Code Status: Full Code Discharge Destination: home [...] from last 7 days Lab Units 11/20/22 04511/19/223 11/18/22 0540 SODIUM mmol/L 138 139 139 [...] TSH 4.08 11/15/2022 No results found for: [id number], IRON, TIBC, C3, C4, YING, CANCA, ASO, PSA, CEA, CA125, CA199, AFP, CA153 Imaging Cardiac (more content not included)...[facility] 11-19-2022 NotePatient: Gadiel Liang Procedure Information Date/Time: 11/19/22 1535 Procedures: Coronary angiography (Left) RIGHT HEART CATH Location: [facility] HEMATOLOGY TECHNOLOGIST 2 [address] / [facility] VASCULAR LAB (Cath) Providers: Esteban Do MD [...] products. Plan discussed with fellow. Additional Equipment RequestsKnox Community Hospital01-09-2023 Note Attestation signed by Clem Wylie [...] 6.25mg BID, Farxiga, and (more content not included)...[facility] 11-19-2022 NoteHospital Medicine Daily Progress Note - 11/19/2022 10:19 AM; Room: 4162/4162-01 Admission: 11/15/2022 12:31 PM; Length of stay: 4 days THE HOSPITALIST TEAM PREFERS TO USE [employer] CHAT FOR COMMUNICATION 7AM-7PM. IF I DO NOT RESPOND WITHIN 15 MINUTES, PLEASE PAGE ME/CALL THROUGH THE PIPELINES LABORER. 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 IF I DO NOT RESPOND WITHIN 15 MINUTES, PLEASE PAGE ME/CALL THROUGH THE PIPELINES LABORER. FROM 7PM-7AM, PLEASE PAGE [phone](COVR) Code Status: Full Code Discharge Destination: home [...] Acute on chronic systolic congestive heart failure ([facility]) Assessment and Plan # Acute on chronic [...] mmol/L 103 105 - (more content not included)...[facility]01-08-2023 NoteCardiology Progress Note Reason for follow [...] DCCV on 10/24. Continue heparin and Carvedilol. [id number], previously on Eliquis for anticoagulation. Soraida Goetz NP [facility] [phone] Community Hospital01-07-2023 Note Attestation signed by Clem Wylie [...] post DC cardioversion in 10/24. 3/PFO with eezz-nj-vimoc shunt. 4/hypertension, uncontrolled Plan: 1/continue GDMT with lisinopril 5 mg daily. We will switch metoprolol succinate to carvedilol 6.25 twice daily daily. Continue Farxiga 10 mg daily. 2/continue Lasix 40 mg daily, monitor ins and outs, daily weight, 2 L fluid restriction, 2 g sodium restriction. 3/will switch Eliquis 5 mg twice daily for high [id number] 2 heparin drip in preparation for lt heart cath. 4/patient will have left and right heart catheterization Saturday for ischemic evaluation.[facility]01-07-2023 NoteHospital Medicine Daily Progress Note - 11/17/2022 9:06 AM; Room: [address] [place] [address] Admission: 11/15/2022 12:31 PM; Length of stay: 2 days THE HOSPITALIST TEAM PREFERS TO USE [employer] FOR COMMUNICATION 7AM-7PM. IF I DO NOT RESPOND WITHIN 15 MINUTES, PLEASE PAGE ME/CALL THROUGH THE PIPELINES LABORER. FROM 7PM-7AM, PLEASE PAGE [phone](COVR) Code Status: Full Code Discharge Destination: home [...] Changing home metoprolol to carvedilol, will start ga. -continue IV lasix 40 mg daily -plan [...] last 7 days Lab Units 11/17/22 0631 11/16/228 11/15/22 1255 WBC AUTO 10*3/uL 7.26 8.23 7.18 HEMOGLOBIN g/dL 12.3* 12.1* 12.8* HEMATOCRIT % 38.3* 37.9* 40.2 MCV fL 85.5 85.9 85.9 PLATELETS AUTO 10*3/uL 228 224 245 INR -- -- 1.87* Chemistry: Results from last 7 days Lab Units 11/17/22 0631 11/16/22 1613 11/16/228 11/15/22 1255 SODIUM mmol/L 138 -- 138 [...] APHT, APCOT, APOT, A (more content not included)...[facility]01-06-2023 NoteHospital Medicine Daily Progress Note - 11/16/2022 3:47 PM; Room: [address] [place] [address] Admission: 11/15/2022 12:31 PM; Length of stay: 1 days THE HOSPITALIST TEAM PREFERS TO USE [employer] CHAT FOR COMMUNICATION 7AM-7PM. IF I DO NOT RESPOND WITHIN 15 MINUTES, PLEASE PAGE ME/CALL THROUGH THE PIPELINES LABORER. FROM 7PM-7AM, PLEASE PAGE [phone](COVR) Code Status: Full Code Discharge Destination: home [...] Acute on chronic systolic congestive heart failure ([facility]) Assessment and Plan # Acute on chronic [...] 233* 121* 144* 268* (more content not included)...[facility]01-06-2023 Note Attestation signed by Charlotte Mast PharmD at 11/16/2022 1:38 PM Gadiel Liang completed heart failure education. Disease state, signs and symptoms of heart failure, diet/lifestyle, and when to seek medical attention were discussed along with medications and their dose, directions, and side effects. Time spent providing education was 15 minutes. Thanks, Shelbi Roa, 11/16/22UnOhioHealth Grove City Methodist Hospital01-06-2023 NotePt admitted to hospital for acute on chronic systolic HF; hx of HFrEF. Pt's most recent echo from 10/24/22 estimated EF 20-25%, which qualifies pt for cardiac rehab (CR) therapy. Pt will be given the benefits of CR as it relates to heart health once order is obtained. I will watch for updates and follow-up with pt, as appropriate. ANDREI PopN rail specialist Outpatient Coordinator Cardiac RehabKnox Community Hospital01-05-2023 NoteHospital Medicine History and Physical 11/15/2022 3:48 PM THE HOSPITALIST TEAM PREFERS TO USE [employer] CHAT FOR COMMUNICATION 7AM-7PM. IF I DO NOT RESPOND WITHIN 15 MINUTES, PLEASE PAGE ME/CALL THROUGH THE PIPELINES LABORER. FROM 7PM-7AM, PLEASE PAGE [phone](COVR) Chief Complaint Chief Complaint Patient presents with Shortness of Breath Dec the it all started with the Sob History of Present Illness Gadiel Liang is an 72 y.o. male with PMH significant for PAF on eliquis, chronic HFrEF (EF of 20%), PFO per MOMO, IDDM, hypothyroidism, and GERD who presents to [facility] ED with chief complaint of shortness of breath . Dyspnea has been present for the past several weeks and progressively worsening. Patient also reports significant generalized fatigue and weakness that is worsening with the dyspnea. He also reports worsening BLE edema. Patient recently underwent DC cardioversion on 10/24 at [facility] that was successful. He does not know when he converted back to A. Fib. About 1 week ago, he had a positive outpatient stress test. He was recently seen at the [facility] ED on 11/10 for the same symptoms [...] Acute on chronic systolic congestive heart failure ([facility]) 11/15/2022 Vasovagal syncope 10/26/2022 History of transient ischemic attack (TIA) 10/26/2022 Persistent atrial fibrillation ([facility]) 10/16/2022 Primary hyperparathyroidism ([facility]) 12/24/2019 Abnormal stress test 04/28/2015 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 Rotator cuff strain 06/16/2013 Hypogonadism male 12/23/2012 Hypercalcemia 12/23/2012 Diabetes mellitus type II, non insulin dependent ([facility]) 09/24/2012 Thyroid nodule 11/16/2009 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[facility]) 11/16/2009 CVA (cerebral vascular accident) ([facility]) 10/26/2022 Paroxysmal atrial fibrillation ([facility]) 10/18/2022 Assessment and Plan # Acute on chronic HFrEF (EF of 20%): # Positive stress test: # PFO per MOMO: # Afib on Eliquis: # Generalized weakness, likely 2/2 above: - Admit patient to hospital medicine service on MedSurg unit. - We will give another 20 [...] be ordered as ap (more content not included)...[facility]12-16-2022 NotePatient here for follow up MOMO/cardioversion. [...] weakness. All other systems reviewed and are negative.[facility] 10-26-2022 NoteUTP CARDIOLOGY PROGRESS NOTE [facility] HPI: Gadiel Liang is a 72 y.o. 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 History of paroxysmal atrial fibrillation, right side CVA in 2016, TIA in 2020, type 2 diabetes, vasovagal syncope. He was evaluated via telemedicine on 10/16/2022 after ER evaluation at [facility] found to be in atrial fibrillation, not [...] BUN 21 10/24/2022 0900 CREATININE 0.78 10/24/2022 09 Lab Results Component Value Date/Time CALCIUM 8.7 10/24/2022 09 Last lab values have been reviewed CV [...] normal. Diffuse global hy (more content not included)...[facility]12-14-2022 Note Attestation signed by Clem Wylie [...] patient and his family. Lavern Lang MD Production Support Consultant - PGY4 [facility]12-07-2022 [place] [facility]12-06-2022 Note-[id number] - 4 (age, hx cva, DM, htn) -start eliquis, stop plavix and aspirin -start metoprolol 12.5mg BID -MOMO with [facility] NoteUT Cardiology Consult Note [facility] Reason for Consultation: Atrial fibrillation HPI: Gadiel Liang is a 72 y.o. 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 Gadiel is here regarding feeling lightheaded with palpitations on 10/15 and he went to the [facility] emergency department was found to be in [...] Skin Inspection and Palpati (more content not included)...[facility]12-06-2022 NoteNew patient here to re-establish care. He was last seen in Sep [address] Henderson for syncope. He recently presented to [facility] ED for SOB. Was found to be in afib w/ RVR. Takes Plavix for hx of stroke. C/o SOB w/wo exertion. Told his his chest feels funny . ED at [facility] did not start any AC or beta argelia. Review of Systems Cardiovascular: Positive for chest pain and dyspnea on exertion. Respiratory: Positive for shortness of breath. All other systems reviewed and are negative.[facility] 10-16-2022 NoteUT Cardiology Consult Note [facility] Reason for Consultation: Atrial fibrillation HPI: Gadiel Liang is a 72 y.o. 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 Gadiel is here regarding feeling lightheaded with palpitations on 10/15 and he went to the [facility] emergency department was found to be in [...] Skin Inspection and Palpati (more content not included)...[facility]11-30-2022 Chief complaint Narrative - Reported* An interactive audio and video telecommunication system which permits real time communications between the patient (at the originating site) and provider (at the distant site) was utilized to providethis telehealth service. * Verbal consent was requested and obtained from GADEIL LIANG on this date, 10/10/2022 11:15 AM , for a telehealth visit. * Patient presents for a follow up visit. NK-Gnldfaehpsgtc-RKR [place] [address] Work Phone: [phone] Miscellaneous Notes* Telephone Encounter - Janee Hughes - 07/02/2022 2:37 PM EDT Received Thyroid US report from [facility]. Indexed into chart. documented in this encounterToledo [facility]06-[facility]22 Chief complaint Narrative - Reported* An interactive [...] follow-up for hypothyroidism, pituitary, and diabetes today. VB-Rnwndtcj-[facility]jon[facility] [address] Work Phone: Evaluation noteNo InformationNoKirkbride Center [employer] Other History general Narrative - Reported* Type Description Date Medical History Diabetes mellitus Medical History Hyperlipemia Medical History Acid reflux Medical History Hiatal hernia Medical History Pituitary tumor Surgical History knee surgery Surgical History shoulder surgery Surgical History thyroid nodule removed Hospitalization History hematoma related to fall 2011 Hospitalization History TIA 03/2020 Hospitalization History DEHYDRATION 09/2020 [facility] Other History of Present illness Narrative* This [...] * -Most recent US on 12/2019 in [place], records not available * -Due for US [...] severe hypoglycemia episode to 30s requiring third democrat assistance. Patient confused during the event. 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 X[facility] [address] Work Phone: History of Present [...] * -Most recent US on 12/2019 in [place], records not available * -Due for US [...] severe hypoglycemia episode to 30s requiring third democrat assistance. Patient confused during the event. 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 LA-Vpkqhoqqumpjp-EAC [address] Work Phone: Summary Purpose Family History [...] section and content) DATE CREATED AUTHOR 05/07/2018 [facility] DATE CREATED AUTHOR AUTHOR'S ORGANIZ ATION 02/28/2022 [facility] DATE CREATED AUTHOR AUTHOR'S ORGANIZ ATION 07/06/2022 [facility] DATE CREATED AUTHOR AUTHOR'S ORGANIZ ATION 10/11/2022 [facility] DATE CREATED AUTHOR AUTHOR'S ORGANIZ ATION 10/11/2022 [facility] DATE CREATED AUTHOR AUTHOR'S ORGANIZ ATION 03/04/2023 [facility] CREATED AUTHOR AUTHOR'S CORTES MEDRANO 07/31/2023 [facility] Source Comments (unrecognize d section and content) In the event this informatio n is protected by the Federal Confidentiality of Alcohol and Drug Abuse Patient Records regulations: The Federal rules restrict any use of the information to criminally investigate or prosecute any alcohol or drug abuse patient.[facility] Reason for Visit (unrecogniz ed section and content) refill Reason Comments Received Outside Medical Records Receive d Thyroid US report from [facility]. Indexed into chart. 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 [employer] provides no warranty or guarantee of the accuracy or completeness of information in this document.
--- NOTE | 2024-03-07 21:17 | XR_ITS ---
The [address] [address] Patient Name: SANTA SMITH MRN: [id number] date: 1950 Sex: M Assigned Patient Location: ER Current Patient Location: ER Accession/Order Number: [id number] Exam Date: 03/07/2024 21:30 Report Date: 03/07/2024 22:04 At the request of: BRIGIDA MENDOZA Procedure: XR chest 1V EXAM: XR chest 1V HISTORY: SOB COMPARISON: 11/10/2022 and earlier. TECHNIQUE: AP portable upright chest x-ray. FINDINGS: Heart size borderline decreased from previous. Lungs clear without infiltrate or edema. Vascular prominence and congestion noted previously has resolved. No pleural effusion. XR/XR chest 1V IMPRESSION: Negative chest x-ray, no acute findings. Clear lungs without infiltrate or edema. Electronically authenticated by: LIZBETH FAULKNER Date: 03/07/2024 22:04
--- NOTE | 2024-03-07 21:17 | ECG_ITS ---
The 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
--- NOTE | 2024-03-07 21:17 | ED.SOB1 ---
HPI - SOB/Dyspnea General Chief Complaint: Shortness of Breath/Dyspnea Stated Complaint: sob, cough Time Seen by Provider: 03/07/24 21:05 History of Present Illness HPI Narrative: 73-year-old male presents for shortness of breath and cough. He has had the symptoms for nearly the past week. His cough has been nonproductive but his states it sounds like he has phlegm that needs to be coughed up. He quit smoking in 1992 and does not have COPD. He has not had a fever. No known ill contacts. Related Data Home Medications ?Medication ?Instructions ?Recorded ?Confirmed apixaban 5 mg tablet (Eliquis) 5 mg PO Q12H 03/07/24 03/07/24 atorvastatin 40 mg tablet 80 mg PO DAILY 03/07/24 03/07/24 bupropion HCl 150 mg 24 hr tablet, 150 mg PO DAILY 03/07/24 03/07/24 extended release cabergoline 0.5 mg tablet 0.5 mg PO .every other day 03/07/24 03/07/24 carvedilol 6.25 mg tablet 6.25 mg PO Q12H 03/07/24 03/07/24 dapagliflozin propanediol 10 mg 10 mg PO DAILY 03/07/24 03/07/24 tablet (Farxiga) doxycycline hyclate 100 mg capsule 100 mg PO Q12H 03/07/24 03/07/24 escitalopram oxalate 10 mg tablet 10 mg PO DAILY 03/07/24 03/07/24 esomeprazole magnesium 40 mg 40 mg PO DAILY 03/07/24 03/07/24 capsule,delayed release furosemide 40 mg tablet 40 mg PO PRN edema 03/07/24 insulin glargine 100 unit/mL (3 35 unit subcut DAILY 03/07/24 03/07/24 mL) subcutaneous pen (Lantus Solostar U-100 Insulin) levothyroxine 75 mcg tablet 75 mcg PO DAILY 03/07/24 03/07/24 (Synthroid) lisinopril 5 mg tablet 5 mg PO DAILY 03/07/24 03/07/24 metformin 500 mg tablet 500 mg PO DAILY 03/07/24 03/07/24 spironolactone 25 mg tablet 25 mg PO DAILY 03/07/24 03/07/24 testosterone 1 % (50 mg/5 gram) 1 packet topical DAILY 03/07/24 03/07/24 transdermal gel packet Previous Rx's ?Medication ?Instructions ?Recorded albuterol sulfate 90 mcg/actuation 2 inh inhalation Q4H PRN shortness 03/07/24 aerosol inhaler of breath or wheezing #8.5 grams Allergies Allergy/AdvReac Type Severity Reaction Status Date / Time No Known Drug Allergies Allergy Verified 03/07/24 21:10 Review of Systems ROS Narrative A ten point review of systems is negative except as noted above. Exam Narrative Exam Narrative: Nurses note and vital signs reviewed and patient is not hypoxic. General: The patient appears well and in no apparent distress. Patient is resting comfortably on cart. Skin: Warm, dry, no pallor noted. There is no rash noted. Head: Normocephalic, atraumatic Eye: Normal conjunctiva, no drainage Ears, Nose, Mouth, and Throat: oral mucosa is moist. Nares patent. Cardiovascular: Regular Rate and Rhythm Respiratory: Bilateral faint rhonchi present. Breath sounds equal. Back: non-tender GI: Soft and nontender Musculoskeletal: The patient has no evidence of calf tenderness, no pitting edema, symmetrical pulses noted bilaterally Neurological: A&O, normal speech Psychiatric: Cooperative Constitutional Vital Signs, click to edit/add: Last Vital Signs Temp 99.3 F 03/07/24 21:06 Pulse 71 03/07/24 22:10 Resp 17 03/07/24 22:10 BP 129/65 03/07/24 22:01 Pulse Ox 94 L 03/07/24 22:10 O2 Del Method Room Air 03/07/24 21:49 Course Vital Signs Vital signs: Vital Signs Temperature 99.3 F 03/07/24 21:06 Pulse Rate 72 03/07/24 21:06 Respiratory Rate 18 03/07/24 21:06 Blood Pressure 143/76 H 03/07/24 21:06 Pulse Oximetry 97 03/07/24 21:06 Oxygen Delivery Method Room Air 03/07/24 21:06 Temperature 99.3 F 03/07/24 21:06 Pulse Rate 71 03/07/24 22:10 Respiratory Rate 17 03/07/24 22:10 Blood Pressure 129/65 03/07/24 22:01 Pulse Oximetry 94 L 03/07/24 22:10 Oxygen Delivery Method Room Air 03/07/24 21:49 MDM - SOB/Dyspnea MDM Narrative Medical decision making narrative: COVID and influenza test are negative and chest x-ray shows no pneumonia. He feels improved after aerosol treatment and he is discharged home on albuterol. He is already on doxycycline, started yesterday. Treatment diagnosis and follow-up were discussed with the patient and his . Differential Diagnosis Differential diagnosis: Likely congestive heart failure, community acquired pneumonia and other (COVID, influenza, bronchitis) Lab Data Attestation: I reviewed the patient's lab results. Labs: Lab Results 03/07/24 Range/Units 21:14 WBC 7.8 (4.0-11.0) 10^3/uL RBC 4.89 (4.70-6.10) 10^6/uL Hgb 13.7 L (14.0-18.0) g/dL Hct 42.5 (42.0-54.0) % MCV 86.9 (80.0-94.0) fL MCH 28.0 (25.9-34.0) pg MCHC 32.2 (29.9-35.2) g/dL RDW 12.6 (11.0-15.0) % Plt Count 228 (150-450) 10^3/uL MPV 9.8 (9.5-13.5) fL Neut % (Auto) 60.8 (43.0-75.0) % Lymph % (Auto) 22.2 (20.5-60.0) % [place] % (Auto) 13.9 H (1.7-12.0) % Eos % (Auto) 2.3 (0.9-7.0) % Baso % (Auto) 0.4 (0.2-2.0) % Neut # (Auto) 4.8 (1.4-6.5) 10^3/uL Lymph # (Auto) 1.7 (1.2-3.8) 10^3/uL [place] # (Auto) 1.1 H (0.3-0.8) 10^3/uL Eos # (Auto) 0.2 (0.0-0.7) 10^3/uL Baso # (Auto) 0.0 (0.0-0.1) 10^3/uL Abs Immat Gran (auto) 0.03 (0.00-0.03) 10^3/uL Imm/Tot Granulo (auto) 0.4 (0.0-0.5) % Sodium 138 (136-145) mmol/L Potassium 4.2 (3.5-5.1) mmol/L Chloride 102 (98-107) mmol/L Carbon Dioxide 24.2 (21.0-32.0) mmol/L Anion Gap 16.0 BUN 15.0 (7.0-18.0) mg/dL Creatinine 1.12 (0.70-1.30) mg/dL Est GFR ( Amer) >60 (>=60) Est GFR (Non-Af Amer) >60 (>=60) BUN/Creatinine Ratio 13.4 Glucose 143 H (74-106) mg/dL Calcium 9.5 (8.5-10.1) mg/dL Influenza Type A Ag Negative Influenza Type B Ag Negative SARS-CoV-2 Ag (CV2AG) Negative (NEGATIVE) Imaging Data Chest x-ray: Radiologist's impression: ITS Impressions Chest X-Ray 03/07/24 21:17 IMPRESSION: Negative chest x-ray, no acute findings. Clear lungs without infiltrate or edema. Electronically authenticated by: LIZBETH FAULKNER Date: 03/07/2024 22:04 ECG Data Attestation: I personally reviewed and interpreted this ECG as follows: (EKG on my interpretation shows sinus rhythm with first-degree AV block and no acute findings) Discharge Plan Discharge Stand Alone Forms: Portal Instructions Chief Complaint: Shortness of Breath/Dyspnea Clinical Impression: Acute bronchitis Patient Disposition: Home, Self-Care Time of Disposition Decision: 22:14 Condition: Good Mode of Transportation: Private Vehicle Prescriptions / Home Meds: New albuterol sulfate 90 mcg/actuation HFA aerosol inhaler 2 inh inhalation Q4H PRN (Reason: shortness of breath or wheezing) Qty: 8.5 0RF No Action Eliquis 5 mg tablet 5 mg PO Q12H atorvastatin 40 mg tablet 80 mg PO DAILY bupropion HCl 150 mg tablet extended release 24 hr 150 mg PO DAILY cabergoline 0.5 mg tablet 0.5 mg PO .every other day carvedilol 6.25 mg tablet 6.25 mg PO Q12H dapagliflozin propanediol [Farxiga] 10 mg tablet 10 mg PO DAILY doxycycline hyclate 100 mg capsule 100 mg PO Q12H escitalopram oxalate 10 mg tablet 10 mg PO DAILY esomeprazole magnesium 40 mg capsule,delayed release(DR/EC) 40 mg PO DAILY furosemide 40 mg tablet 40 mg PO PRN (Reason: edema) levothyroxine [Synthroid] 75 mcg tablet 75 mcg PO DAILY lisinopril 5 mg tablet 5 mg PO DAILY metformin 500 mg tablet 500 mg PO DAILY spironolactone 25 mg tablet 25 mg PO DAILY testosterone 1 % (50 mg/5 gram) gel in packet 1 packet topical DAILY insulin glargine [Lantus Solostar U-100 Insulin] 100 unit/mL (3 mL) insulin pen 35 unit SUBCUT DAILY Print Language: Singaporean Instructions: Acute Bronchitis (ED) Referrals: Haritha Argueta MD [Primary Care Provider] - 1 week
[2024-03-07 21:40] LABS: BUN Creatinine Ratio 13.4; Calcium 9.5 mg/dL (8.5-10.1); Carbon Dioxide 24.2 mmol/L (21.0-32.0); Chloride 102 mmol/L (98-107); Estimated GFR (African America >60 (>=60); Estimated GFR (Non-African Ame >60 (>=60); Glucose 143 mg/dL (74-106); Potassium 4.2 mmol/L (3.5-5.1); Sodium 138 mmol/L (136-145)
[2024-03-07 21:41] LABS: Basophils Percent Auto 0.4 % (0.2-2.0); Eosinophils Absolute Auto 0.2 10^3/uL (0.0-0.7); Eosinophils Percent Auto 2.3 % (0.9-7.0); Hematocrit 42.5 % (42.0-54.0); Hemoglobin 13.7 g/dL (14.0-18.0); Immature Granulocytes Abs Auto 0.03 10^3/uL (0.00-0.03); Immature Granulocytes Pct Auto 0.4 % (0.0-0.5); Lymphocytes Absolute Auto 1.7 10^3/uL (1.2-3.8); Lymphocytes Percent Auto 22.2 % (20.5-60.0); Mean Corpuscular HGB Conc 32.2 g/dL (29.9-35.2); Mean Corpuscular Volume 86.9 fL (80.0-94.0); Mean Platelet Volume 9.8 fL (9.5-13.5); Monocytes Absolute Auto 1.1 10^3/uL (0.3-0.8); Monocytes Percent Auto 13.9 % (1.7-12.0); Neutrophils Absolute Auto 4.8 10^3/uL (1.4-6.5); Neutrophils Percent Auto 60.8 % (43.0-75.0); Platelet Count 228 10^3/uL (150-450); Red Blood Count 4.89 10^6/uL (4.70-6.10); Red Cell Distribution Width 12.6 % (11.0-15.0); White Blood Count 7.8 10^3/uL (4.0-11.0)
[2024-03-07 21:43] LABS: Influenza Virus A Antigen Negative; Influenza Virus B Antigen Negative; Internal Control Within Normal Limits; SARS-CoV-2 Ag NEGATIVE (NEGATIVE)
[2024-03-07] MEDS: ALBUTEROL SULFATE 2.5 MG/3 ML VIAL NEB IH (21:49)
== END 2024-03-07 22:27 | disposition home or self-care (01) ==
PROVIDERS: Emergency Provider Emergency Medicine; PCP Family Medicine
DX: J20.9 Acute bronchitis, unspecified (principal); Z87.891 Personal history of nicotine dependence; Z79.01 Long term (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 anticoagulants; Z79.899 Other long term (current) drug therapy; Z79.890 Hormone replacement therapy; Z79.84 Long term (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 oral hypoglycemic drugs; Z20.822 Contact with and (suspected) exposure to COVID-19
CPT/HCPCS: 36415; 71045; 80048; 85025; 87804; 87811; 93005; 94640; 99285

== ENCOUNTER 2024-03-20 12:38 | Outpatient (OUT) | payer MEDICARE, SELFPAY ==
--- NOTE | 2024-03-20 12:50 | XR_ITS ---
The [address] [address] Patient Name: SANTA SMITH MRN: [id number] date: 1950 Sex: M Assigned Patient Location: [facility] Current Patient Location: Accession/Order Number: [id number] Exam Date: 03/20/2024 12:55 Report Date: 03/22/2024 05:40 At the request of: NON-STAFF PHYSICIAN Procedure: XR abdomen 1V EXAMINATION: XR abdomen 1V HISTORY: Constipation, Diarrhea COMPARISON: No relevant comparison available. FINDINGS: BOWEL GAS PATTERN: No abnormal dilation or deviation. No significant stool burden. CALCIFICATIONS: None significant. OTHER: Negative. No abnormal gaseous collections. XR/XR abdomen 1V IMPRESSION: 1. No bowel obstruction or appreciable acute abnormality. 2. Mild to moderate stool burden. Electronically authenticated by: RAPHAEL NUNEZ Date: 03/22/2024 05:40
== END 2024-03-20 12:39 | disposition home or self-care (01) ==
PROVIDERS: PCP Family Medicine
DX: K59.00 Constipation, unspecified (principal); R19.7 Diarrhea, unspecified
CPT/HCPCS: 74018

== ENCOUNTER 2024-04-16 09:21 | Outpatient (OUT) | payer MEDICARE, SELFPAY ==
--- NOTE | 2024-04-16 09:30 | US_ITS ---
[address] [address] Patient Name: SANTA SMITH MRN: [id number] date: 1950 Sex: M Assigned Patient Location: Current Patient Location: US Accession/Order Number: [id number] Exam Date: 04/16/2024 09:45 Report Date: 04/16/2024 11:39 At the request of: LUANA REDDY Procedure: US carotid duplex BI EXAMINATION: US carotid duplex BI HISTORY: Bilateral Carotid Artery Stenosis I65.23 COMPARISON: No relevant comparison available. TECHNIQUE: Duplex Doppler ultrasound analysis of carotid and vertebral arteries. . Bilateral carotid arterial duplex examination was performed using B-mode, color flow and spectral analysis. Carotid stenosis is reported according to validated velocity parameters, similar to NASCET criteria. FINDINGS: RIGHT CAROTID ARTERY: Moderate atherosclerotic disease within bulb and proximal ICA with up to 53% area reduction within the bulb. RIGHT VERTEBRAL: Antegrade flow. Subclavian: PSV: 109.7 cm/s EDV: 0.0 cm/s CCA: Prox: PSV: 58.0 cm/s EDV: 6.3 cm/s Mid: PSV: 82.2 cm/s EDV: 12.8 cm/s Distal: PSV: 70.9 cm/s EDV: 14.4 cm/s BULB: PSV: 54.7 cm/s EDV: 7.9 cm/s ICA: Prox: PSV: 43.8 cm/s EDV: 10.9 cm/s Mid: PSV: 79.0 cm/s EDV: 19.7 cm/s Distal: PSV: 85.3 cm/s EDV: 24.5 cm/s ECA: PSV: 143.7 cm/s EDV: 5.7 cm/s VERTEBRAL: PSV: 54.2 cm/s EDV: 14.1 cm/s ICA/CCA ratio: PSV: 1.0 EDV: 1.9 LEFT CAROTID ARTERY: Moderate atherosclerotic disease within bulb and proximal ICA with up to 60% area reduction within the bulb. LEFT VERTEBRAL: Antegrade flow. Subclavian: PSV: 143.7 cm/s EDV: 0.0 cm/s CCA: Prox: PSV: 82.6 cm/s EDV: 15.6 cm/s Mid: PSV: 80.5 cm/s EDV: 19.5 cm/s Distal: PSV: 78.6 cm/s EDV: 15.6 cm/s BULB: PSV: 78.6 cm/s EDV: 19.5 cm/s ICA: Prox: PSV: 76.6 cm/s EDV: 13.6 cm/s Mid: PSV: 66.7 cm/s EDV: 17.5 cm/s Distal: PSV: 65.9 cm/s EDV: 20.6 cm/s ECA: PSV: 228.2 cm/s EDV: 16.4 cm/s VERTEBRAL: PSV: 62.8 cm/s EDV: 19.2 cm/s ICA/CCA ratio: PSV: 1.0 EDV: 1.3 US/US carotid duplex BI IMPRESSION: 1. Moderate atherosclerotic disease within bulb and proximal ICA bilaterally. 2. 0-49% flow stenosis bilaterally. Spectral Doppler US Thresholds Stenosis (%) PSV (cm/sec) VICA/VCCA 0-49 <150 <2.5 50-69 150-225 2.5-4.0 >70 >225 >4.0 Electronically authenticated by: RAPHAEL NUNEZ Date: 04/16/2024 11:39
--- OUTSIDE RECORDS SUMMARY | 2024-04-16 09:35 | XMS_ITS | CCD ---
Author Organization [facility] Care Team Providers Care Beater Engineer Helper Name Role Phone PHYSICIAN, DEFAULT Unavailable Unavailable PHYSICIAN, DEFAULT Unavailable Unavailable PHYSICIAN, DEFAULT Unavailable Unavailable PHYSICIAN, DEFAULT Unavailable Unavailable Cabrera Dupont Unavailable Cabrera Dupont MD Primary Care Provider [phone] Cabrera Dupont Primary Care Unavailab le [place], Dr. Mandie Piper Attending Syed Salamanca, Dr. Mandie Piper Referring Windyvai lable Self, Referral Referring Unavailable Hatipoglu, Dr. Mandie Piper Attending Syed Dupont, Dr. Cabrera Gaspar Primary Care Unavailab le RICHIE, DR JOSELUIS Austin Primary Care Unavailable YEARTYTONY Attending Unavailable YEARTONY QUIROS Admitting Unavailable MISC, DR LOZADA Attending Unavailable CROSSVILLE, DR GEORGIE Erwin Consulting Unavailable QUIROZ, DR JOSELUIS Austin Primary Care Unavailable MISC, DR LOZADA Admitting Unavailable MISC, DR LOZADA Consulting Unavailable ELICEO ESPINOZA Admitting Unavailable QUIROZ, DR JOSELUIS Austin Primary Care Unavailable SHAKIRAELICEO RENEE Attending Unavailable SHAKIRAELICEO Consulting Unavailable MAUREENJANEE Consulting [...] DR ANGEL Admitting Unavailable QUIROZ, DR JOSELUIS Austin Primary Care Unavailable HAY ., DR ANGEL Attending Unavailable ALEJANDRO ., DR ANGEL Consulting Unavailable RY CLINTON Consulting Unavailable Joseluis Quiroz Unavailable RAPHAEL SPRINGER Attending Unavailable ELICEO ESPINOZA Admitting Unavailable ELICEO ESPINOZA Attending Unavailable JESÚS WHITTINGTON Attending Unavailable ELICEO ESPINOZA Attending Unavailable JANEE REDDY Attending Unavailable JESÚS WHITTINGTON Attending Unavailable ELICEO ESPINOZA Referring Unavailable ELICEO ESPINOZA Referring Unavailable MD Joseluis Quiroz Primary Care Provider DO Merly Paul Attending Provider [phone] Merly Paul Attending Unavailable Merly Paul Admitting Unavailable Joseluis Quiroz Primary Care Unavailable Allergies Allergy Classification Reported Allergen(s) Allergy Type Date of Onset Reaction(s) Facility (2 sources) Lisinopril; Translations: [LISINOPRIL] Drug Allergy 04-28-2015 Other: See Comments [facility] Work Phone: Medications Current Medications Medication Drug Class(es) Dates Sig (Normalized) Sig (Original) Amiodarone (1 source) Antiarrhythmic Amiodarone Activ e apixaban 5 mg oral tablet (9 sources) Factor Xa Inhibitor Start: 01-28-2024 take 1 tablet by mouth twice daily Apixaban (Eliquis) 5 mg tablet Active 0 .ROUTE .COMPLEX 180 January 28, 2024 3:49pm TAKE 1 TABLET BY MOUTH TWICE A DAY Start: 01-28-2024 End: 01-28-2024 take 5 mg by mouth twice daily Apixaban Discontinued 5 MG PO Twice daily January 28, 2024 12:00am January 28, 2024 3:49pm take 1 tablet by woody th every twelve hours Eliquis 5 MG 1 [...] other day for 0 *Pick strength-form from [facility] for eRX* Jul, Active Ocuvite TABS WYATT E 1 TABLET DAILY. Quantity: 0 Refills: 0 Ordered: 30-Nov-2020 DO Active atorvastatin 20 mg oral tablet (20 sources) HMG-CoA Reductase Inhibitor Start: 03-06-2024 take 20 mg by mouth once daily at bedtime Atorvastatin Active 20 MG PO Daily at bedtime March 06, 2024 12:00am Start: 01-21-2019 take 1 tablet by woody th once daily at bedtime atorvastatin (LIPITOR) 10 mg tablet Take 1 tablet by mouth daily at bedtime. 0 01/21/2019 Active Atorvastatin Juventino cium 40 MG 1/2 tab once a day Active take 1 tablet by woody th once daily Atorvastatin Calcium 20 MG Oral Tablet TAKE 1 TABLET DAILY. Quantity: 90 Refills: 3 Ordered: 24-Apr-2022 [place] GUILLORY, Mandie Active Comment on above: Take 1 tablet by woody th daily at bedtime. BD Pen Needle Mini U/F (7 sources) BD Pen Needle Mi ni U/F BD Pen Needle Mini U/F , 2 (two) Injection Injection as directed # 2, 11/16/2021, Ref. x1. Active as directed for 90 days patient takes 2 injections daily Active 24 hr buPROPion hydrochloride 150 mg extended release oral tablet (20 sources) Aminoketone Start: take 150 mg by mouth once daily Bupropion Hcl Active 150 MG PO Daily March 06, 2024 12:00am Start: 07-23-2022 take 1 tablet by woody th every twenty-four hours buPROPion HCl ER (XL) 150 MG 1 tablet in the morning Oral Once a day *Pick strength-form from [employer] for eRX* Jul, Active Start: 07-23-2022 take 1 tablet by woody th twice daily buPROPion HCl ER (XL) 150MG buPROPion HCl ER (XL) 150MG, 1 (one) Tablet Tablet two times daily # 180, 07/23/2022, Ref. x1. Active Oral two times daily for 0 *Pick strength-form from [employer] for eRX* Jul, Active Start: 04-13-2020 take 1 tablet by woody th twice daily buPROPion SR (ZYBAN SR; WELLBUTRIN SR) 150 mg 12 hr tablet Take 1 tablet by mouth twice daily. 180 tablet 1 04/13/2020 Active take 1 tablet by woody th twice daily buPROPion HCl ER (XL) 150 MG TAKE 1 TABLET BY MOUTH TWICE A DAY Active take 1 tablet by mouth once chip y Wellbutrin SR 150 MG Oral Tablet Extended Release 12 Hour TAKE 1 TABLET EVERY 12 HOURS DAILY. Quantity: 0 Refills: 0 Ordered: 30-Nov-2020 DO Active Comment on above: Take 1 tablet by woody th twice daily. cabergoline 0.5 mg oral tablet (20 sources) Ergot Derivative Start: 03-06-2024 take 0.5 mg by mouth every other day Cabergoline Active 0.5 MG PO .qod March 06, 2024 12:00am Start: 04-13-2020 Cabergoline 0. 5MG Cabergoline( 0.5MG Oral every other day ) Active -Hx Entry Oral every other day for 0 *Pick strength-form from [employer] for eRX* Jul, Active Comment on above: Take one tablet ever y other day carvedilol 6.25 mg oral tablet (8 sources) alpha-Adrenergic Veronica, beta-Adrenergic Veronica Start: 03-06-2024 take 6.25 mg by mouth twice daily Carvedilol Active 6.25 MG PO Twice daily March 06, 2024 12:00am take 1 tablet by woody th every twelve hours Carvedilol 6.25 MG 1 tablet Orally twice a day for 90 days Active Citracal Plus (5 sources) Citracal Plus Ac tive dapagliflozin 10 mg oral tablet (8 sources) Sodium-Glucose Cotransporter 2 Inhibitor Start: 03-06-20 take 1 tablet by mouth once daily Dapagliflozin Propanediol (Farxiga) 10 mg tablet Active 10 MG PO Daily March 06, 2024 12:00am take 1 tablet by woody th every twenty-four hours Farxiga 10 MG 1 tablet once a day Active escitalopram 10 mg oral tablet (7 sources) Serotonin Reuptake Inhibitor Start: 03-31-2024 take 1 tablet by mouth once daily in the evening Escitalopram Oxalate Active 10 MG PO Every evening March 31, 2024 12:00am Free[employer] tablet Orally Once a day; Note: Source Status: Taking; Refills: 3; Provider: Richie Austin Start: 08-19-2023 take 1 tablet by woody th every twenty-four hours Lexapro 10 MG 1 tablet Orally Once a day for 30 day(s) Aug, Active esomeprazole 40 mg delayed release oral capsule (20 sources) Proton Pump Inhibitor Start: 03-06-2024 End: 03-16-2024 take 1 capsule by mouth once daily Esomeprazole Magnesium (Nexium) 40 mg capsule,delayed release(DR/EC) Active 40 MG PO Daily March 16, 2024 8:39am Esomeprazole Mag nesium 40 MG TAKE 1 CAPSULE DAILY for [...] Take 20 mg by mouth once daily. 3 ml insulin glargine 100 unt/ml pen injector (20 sources) Insulin Analog Start: 03-31-2024 Insulin Glargine (Lantus Solostar U-100 Insulin) 100 unit/mL (3 mL) insulin pen Active 35 UNIT SUBCUT Every morning March 31, 2024 12:00am Start: 04-13-2020 insulin glargi ne (LANTUS SOLOSTAR U-100 INSULIN) 100 unit/mL (3 mL) INJECT 50 UNITS UNDER THE SKIN TWICE A DAY 45 mL 1 04/13/2020 Active Lantus 30 Subcut aneous daily Active Lantus SoloStar 100 UNIT/ML Subcutaneous Solution Pen-injector INJECT 30 UNITS IN THE MORNING Quantity: 3 Refills: 3 Ordered: 10-Oct-2022 Mandie Salamanca MD Active inject 25 [IU] by berrios bcutaneous injection in the morning, then inject 12 [IU] by subcutaneous injection at bedtime Lantus SoloStar 100 UNIT/ML Subcutaneous Solution Pen-injector Inject 25 units in the morning and 12 units at bedtime Quantity: 3 Refills: 3 Ordered: 21-Aug-2021 Mandie Salamanca MD Active Comment on above: INJECT 50 UNITS UNDE R THE SKIN TWICE A DAY levothyroxine sodium 0.075 mg oral tablet (20 sources) l-Thyroxine Start: 03-31-2024 Levothyroxine (Synthroid) 75 mcg tablet Active 37.5 MCG PO Daily March 31, 2024 12:00am Start: 03-06-2024 End: 03-31-2024 take 1 tablet by mouth once daily Levothyroxine (Synthroid) 75 mcg tablet Discontinued 75 MCG PO Daily March 20, 2024 1:31pm March 31, 2024 9:55am Start: 04-13-2020 take 0.5 tablet by m outh once daily Levothyroxine Sodium 75 MCG Oral Tablet take 1/2 tablet daily Quantity: 45 Refills: 1 Ordered: 29-May-2023 Mandie Salamanca MD Start : 14-Nov-2021 Active Levothyroxine So dium 75 MCG 1/2 tab once a day Active Comment on above: Take 0.5 tablets by mouth once daily. lisinopril 5 mg oral tablet (9 sources) Angiotensin Converting Enzyme Inhibitor Start: 01-10-2024 End: 01-10-2024 take 5 mg by mouth once daily Lisinopril Active 5 MG PO Daily January 10, 2024 3:59pm take 1 tablet by woody th every twenty-four hours Lisinopril 5 MG 1 tablet once a day for 90 days Active sildenafil 50 mg oral tablet (8 sources) Phosphodiesterase 5 Inhibitor Start: 03-06-2024 take 50 mg by mouth once daily Sildenafil Active 50 MG PO Daily March 06, 2024 12:00am Start: 07-12-2022 take 1 tablet by woody th once daily Sildenafil Citrate 25MG Sildenafil Citrate 25MG, 1 (one) Tablet daily as directed # 10, 07/12/2022, Ref. x2. Active Oral daily as directed for 30 *Pick strength-form from [employer] for eRX* Jul, Active take 1 tablet by woody th once daily as needed Sildenafil Citrate 50 MG 1 tablet as needed Orally daily as directed for 30 days *Pick strength-form from [employer] for eRX* Active spironolactone 25 mg oral tablet (8 sources) Aldosterone Antagonist Start: 03-06-2024 take 12.5 mg by mouth once daily in the evening Spironolactone Active 12.5 MG PO Every evening March 06, 2024 12:00am Aldactone 25 MG 1/2 tablet once a day Active 5000 mg testosterone 0.01 mg/mg topical gel (20 sources) Androgen Start: 03-06-2024 Testosterone A ctive 1 PACKET TRANSDERML Daily March 06, 2024 12:00am Start: 07-12-2022 AndroGel 50 MG /5GM(1%) AndroGel( 50 MG/5GM(1%) Transdermal daily ) Active -Hx Entry Transdermal daily for 0 *Reorder from [facility] for eRx and Interaction Alerts* Jul, Active Start: 11-30-2020 Testosterone 5 0 MG/5GM (1%) Transdermal Gel APPLY 1 PACKET ONE TIME DAILY DIRECTED Quantity: 90 Refills: 1 Ordered: 10-Oct-2022 Mandie Salamanca MD Start : 30-Nov-2020 Active Start: 05-27-2020 [...] Take 81 mg by mouth once daily. Calcium Citrate (16 sources) Citracal TABS TA [...] 0 Refills: 0 Ordered: 30-Nov-2020 DO Active doxycycline hyclate 100 mg oral capsule (1 source) Tetracycline-class Drug Start: 03-06-2024 End: 03-18-2024 take 100 mg by mouth twice daily Doxycycline Hyclate Discontinued 100 MG PO Twice daily 30 08March 06, 2024 12:00am March 18, 2024 10:40am hydrOXYzine hydrochloride 25 mg oral tablet (6 sources) Antihistamine take 1 tablet by mouth at bedtime as needed hydrOXYzine HCl - 25 MG Oral Tablet TAKE 1 TABLET AT BEDTIME NEEDED Quantity: 0 Refills: 0 Ordered: 30-Nov-2020 DO Active iv contrast (will be provided with radiology test) (1 source) Start: 01-21-2019 iv contrast (will be provided with radiology [...] MR contrast administration guidelines link. 1 Each 01/21/2019 Active Comment on above: MRI Pituitary [...] in the MR contrast administration guidelines link. melatonin 5 mg oral capsule (10 sources) Start: 04-24-2022 Melatonin 5 MG Oral Capsule TAKE 1 CAPSULE BY MOUTH NEEDED. Quantity: 0 Refills: 0 Ordered: 24-Apr-2022 DO Start : 24-Apr-2022 Active metFORMIN hydrochloride 500 mg oral tablet (20 sources) Biguanide Start: 03-06-2024 End: 04-14-2024 take 500 mg by mouth once daily in the evening Metformin Discontinued 500 MG PO Every evening March 06, 2024 12:00am April 14, 2024 10:49am Start: 12-20-2021 metFORMIN HCl - 1000 MG [...] Quantity: 90 Refills: 1 Ordered: 08-Nov-2021 Mandie Salamanca MD Active Comment on above: TAKE 2 [...] Quantity: 30 Refills: 11 Ordered: 10-Oct-2022 Mandie Salamanca MD Start : 10-Oct-2022 Active Problems Active Problems Problem Classification Problem Date Documented Da te Episodic/Chronic Abdominal pain (7 sources) Abdominal pain; Translations: [Unspecified abdominal pain] Episodic Administrative/social admission (1 source) Patient encounter status; Translations: [Dietary counseling and surveillance] 02-11-2024 Episodic Anxiety disorders (10 sources) Anxiety; Translations: [Anxiety disorder, unspecified] Chronic Cardiac and circulatory congenital anomalies (2 sources) Patent foramen ovale; Translations: [Patent foramen ovale] Onset: 3 Chronic Cardiac dysrhythmias (12 sources) Paroxysmal atrial fibrillation; Translations: [Unspecified atrial fibrillation] Onset: 2 Chronic Chronic obstructive pulmonary disease and bronchiectasis (1 source) Bronchitis, not specified as acute or chronic; Translations: [Bronchitis, not specified as acute or chronic] 03-06-2024 Episodic Conduction disorders (1 source) Unspecified right bundle-branch block; Translations: [UNSPECIFIED RT BUNDLE-BRANCH BLOCK] Onset: 3 Chronic Congestive heart failure; nonhypertensive (13 sources) Chronic systolic (congestive) heart failure; Translations: [Acute on chronic systolic (congestive) heart failure] Onset: 3 Chronic Diabetes mellitus with complications (20 sources) Type 2 diabetes mellitus; Translations: [Diabetes with other specified manifestations, type II or unspecified type, not stated as uncontrolled] Onset: 2 09-08-2015 Chronic Diabetes mellitus without complication (4 sources) Type 2 diabetes mellitus without complications; Translations: [Diabetes mellitus] Onset: 2 Chronic Disorders of lipid metabolism (20 sources) Hyperlipidemia; Translations: [Other and unspecified hyperlipidemia] Onset: 2 Chronic Esophageal disorders (1 source) Gastro-esophageal reflux disease without esophagitis; Translations: [GERD WITHOUT ESOPHAGITIS] Onset: 3 Chronic Essential hypertension (1 source) Hypertensive disorder; Translations: [Essential (primary) hypertension] 02-11-2024 Chronic Nausea and vomiting (7 sources) Nausea; Translations: [Nausea] Episodic Occlusion or stenosis of precerebral arteries (2 sources) Occlusion and stenosis of bilateral carotid arteries; Translations: [Occlusion and stenosis of bilateral carotid arteries] Onset: 4 Chronic Osteoarthritis (1 source) Unspecified osteoarthritis, unspecified site; Translations: [UNSPECIFIED OSTEOARTHRITIS UNS SITE] Onset: 3 Chronic Other aftercare (7 sources) Long-term current use of insulin; 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] Episodic Other and unspecified benign neoplasm (16 sources) Pituitary macroadenoma; 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] Episodic Other endocrine disorders (17 sources) Male hypogonadism; Translations: [Other testicular hypofunction] Onset: 3 12-23-2012 Chronic Other endocrine disorders (6 sources) Hypogonadotropic hypogonadism; Translations: [Other anterior pituitary disorders] Chronic Other endocrine disorders (1 source) Testicular hypofunction; Translations: [TESTICULAR HYPOFUNCTION] Onset: 3 Chronic Other gastrointestinal disorders (1 source) Diarrhea; Translations: [Diarrhea, unspecified] 03-18-2024 Episodic Other gastrointestinal disorders (1 source) Fecal incontinence with fecal urgency; Translations: [Full incontinence of feces] 03-18-2024 Episodic Other gastrointestinal disorders (1 source) Constipation; Translations: [Constipation, unspecified] 03-18-2024 Episodic Other gastrointestinal disorders (1 source) Constipation, unspecified; Translations: [Constipation, unspecified] 03-18-2024 Episodic Other gastrointestinal disorders (1 source) Full incontinence of feces; Translations: [Fecal urgency] 03-18-2024 Episodic Other male genital disorders (6 sources) Secondary erectile dysfunction; Translations: [Erectile dysfunction due to diseases classified elsewhere] Chronic Other male genital disorders (1 source) Erectile dysfunction due to diseases classified elsewhere Chronic Other nutritional; endocrine; and metabolic disorders (1 source) Hypercalcemia; Translations: [Hypercalcemia] Onset: 3 12-23-2012 Chronic Other nutritional; endocrine; and metabolic [...] result of other cardiovascular function study] Onset: 5 04-28-2015 Episodic 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; 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] Onset: 0 11-16-2009 Chronic Unclassified (1 source) CONTACT W/AND (SUSP) EXPOS COVID-19; Translations: [CONTACT W/AND (SUSP) EXPOS COVID-19] Onset: 3 Unclassified (2 sources) Other persistent atrial fibrillation; Translations: [Other persistent atrial fibrillation] Onset: 3 Past or Other Problems Problem Classification Problem Date Documented Date Episodic/Chronic Menopausal disorders (1 source) Hormone replacement therapy; Translations: [HORMONE REPLACEMENT THERAPY] Onset: 11-13-2022 Episodic Other aftercare (1 source) 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; Translations: [OTH ORACLE HRMS DEVELOPER CURRENT DRUG THERAPY] Onset: 11-13-2022 Episodic Other aftercare (1 source) halfway (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 oral hypoglycemic drugs; Translations: [MCFP USE ORAL HYPOGLYCEMIC DX] Onset: 11-13-2022 Episodic Other aftercare (1 source) halfway (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 insulin; Translations: [ORACLE HRMS DEVELOPER CURRENT USE OF INSULIN] Onset: 11-13-2022 Episodic Other aftercare (1 source) 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; Translations: [MCFP CURRENT USE OF ASPIRIN] Onset: 10-17-2022 Episodic [...] NO RESID DEFICIT] Onset: 11-13-2022 Episodic Other circulatory disease (2 sources) Personal history of other diseases of the circulatory system; Translations: [Personal history of other diseases of the circulatory system] Onset: 05-02-2023 Episodic Other lower respiratory disease (3 sources) Shortness of breath; Translations: [SHORTNESS OF BREATH] Onset: 11-10-2022 Episodic Other lower respiratory disease (1 source) Dyspnea, unspecified; Translations: [DYSPNEA UNSPECIFIED] Onset: 10-17-2022 Episodic Residual codes; unclassified (2 sources) Other specified postprocedural states; Translations: [Other specified postprocedural states] Onset: 05-02-2023 Episodic Screening and history of mental health and substance abuse codes (1 source) Personal history of nicotine dependence; Translations: [PERSONAL HISTORY OF NICOTINE DEPEND] Onset: 11-13-2022 Episodic Sprains and strains (1 source) Strain of rotator cuff of shoulder; Translations: [Strain of muscle(s) and tendon(s) of the rotator cuff of unspecified shoulder, initial encounter] Onset: 06-16-2013 06-16-2013 Episodic Results Test Name Value Interpretation Reference Range Facility Capillary blood glucose corey urement by glucometer (mass/volume)Ordered By: Merly Paul on 04-14-2024 Glucose [Mass/Vol] 73 mg/dL Normal [facility] Comment on above: Random Glucose Refer ence Range is dependent on time and content of last meal. Glucose of more than 200 mg/dL in a nonstressed, ambulatory subject supports the diagnosis of Diabetes Mellitus. Result Comment: [place] om Glucose Reference Range is dependent on time and content of last meal. Glucose of more than 200 mg/dL in a nonstressed, ambulatory subject supports the diagnosis of Diabetes Mellitus. PERFORMED BY: [facility] [place] [id number] [place] [address] PATHOLOGIST LIEUTENANT/DEPUTY ANJANA SEWELL M.D. Performed By: #### G URIEL #### Point of Care testing , Office Visiton 04-01-2024 Follow-up visit [id number] Gadiel Smith 1950 M [facility] Provider Department Center 04/01/2024 JANEE JIAME RO [place] Family History Problem Relation Age [...] Paternal Grandmother Paternal Grandfather Other Level of Service:33690 [place] OFFICE/OUTPATIENT ESTABLISHED MOD MDM 30 MIN Reason for Visit and Comments: Follow-up [612339] - 7 month follow up Normal [facility] Office Visiton 07-30-2023 Follow-up visit [id number] Gadiel Smith 1950 M Date Provider Department Center 07/30/2023 JESÚS SIMPSON RO [place] Family History Problem Relation Age [...] Paternal Grandmother Paternal Grandfather Other Level of Service:49192 [place] OFFICE/OUTPATIENT ESTABLISHED MOD [facility] 30-39 MIN Normal [facility] Follow-Upon 06-05-2023 Follow-Up [id number] Gadiel Smith 1950 M Date Provider Department Center 06/05/2023 1596-JESÚS WHITTINGTON [facility] Family History Problem Relation Age of [...] Paternal Grandmother Paternal Grandfather Other Level of Service:72847 [place] OFFICE/OUTPATIENT ESTABLISHED MOD [facility] 30-39 MIN Normal [facility] Telephoneon 05-30-2023 Telephone [id number] Gadiel Smith 1950 M Date Provider Department Center 05/30/2023 1987-MARLEY MORALES [facility] Family History Problem [...] 3 week post ablation f/u [Other] Normal [facility] Telephone [id number] Barber Smitheliseo Austin 1950 Date Provider Department Center 05/30/2023 FaridehMARLEY MORALES [facility] MD [facility] Family History Problem Relation Age of [...] Grandfather Paternal Grandmother Paternal Grandfather Other Normal [facility] Telephoneon 05-10-2023 Telephone [id number] GarthGadiel Austin 1950 [facility] Provider Department Center 05/10/20231986-MARLEY MORALES [facility] MD [facility] Family History Problem Relation Age of [...] Comments: week f/u post ablation [Other] Normal [facility] BASIC METABOLIC PANELon 06- Anion gap [Moles/Vol] 9 mmol/L Normal - [facility] Comment on above: Performed By: #### L [id number] #### [facility] ([facility] [address] [place] [address] Calcium [Mass/Vol] 8.9 mg/dL Normal 8.6-10.3 [facility] Comment on above: Performed By: #### L [id number] #### [facility] ([facility]) [address] [place] [address] Chloride [Moles/Vol] 104 mmol/L Normal 98-107 [facility] Comment on above: Performed By: #### L [id number] #### [facility] ([facility]) [address] [place] [address] CO2 [Moles/Vol] 28 mmol/L Normal 21-31 [facility] Comment on above: Performed By: #### L [id number] #### [facility] ([facility]) [address] [place] [address] Creatinine [Mass/Vol] 0.79 mg/dL Normal 0.70-1.30 [facility] Comment on above: Performed By: #### L [id number] #### [facility] ([facility]) [address] [place] [address] GLOMERULAR FILTRATION RATE ML/MIN/1.73 SQ M.PREDICTED 95.0 mL/min/1.73m*2 Normal >60.0 [facility] Comment on above: Result Comment: The [facility]???s estimated glomerular filtration rate (eGFR) will no [...] group of individuals. Performed By: #### L [id number] #### [facility] ([facility]) [address] [place] [address] Glucose [Mass/Vol] 176 mg/dL High 70-100 [facility] Comment on above: Performed By: #### L [id number] #### [facility] ([facility]) [address] [place] [address] Potassium [Moles/Vol] 3.6 mmol/L Normal 3.5-5.1 [facility] Comment on above: Performed By: #### L [id number] #### [facility] ([facility]) [address] [place] [address] Sodium [Moles/Vol] 137 mmol/L Normal 136-145 [facility] Comment on above: Performed By: #### L [id number] #### [facility] ([facility]) [address] [place] [address] Urea nitrogen [Mass/Vol] 11 mg/dL Normal 7-25 [facility] Comment on above: Performed By: #### L [id number] #### [facility] ([facility]) [address] [place] [address] UREA NITROGEN/CREATININE (MASS RATIO) IN SER/PLAS 13.9 Normal [facility] Comment on above: Performed By: #### L [id number] #### [facility] ([facility]) [address] [place] [address] CBCon 05-03-2023 Erythrocyte distribution width (RBC) [Ratio] 12.8 % Normal 11.5-15.0 [facility] Comment on above: Performed By: #### L [id number] #### [facility] ([facility]) [address] [place] [address] ERYTHROCYTE MEAN CORPUSCULAR HEMOGLOBIN CONCENTRATION (G/DL) BY AUTOMATED 32.1 g/dL Normal 32.0-35.0 [facility] Comment on above: Performed By: #### L [id number] #### [facility] ([facility]) [address] [place] [address] Hematocrit (Bld) [Volume fraction] 39.3 % Normal 39.0-55.0 [facility] Comment on above: Performed By: #### L [id number] #### [facility] ([facility]) [address] [place] [address] Hemoglobin (Bld) [Mass/Vol] 12.6 g/dL Low 13.0-17.0 [facility] Comment on above: Performed By: #### L [id number] #### [facility] ([facility]) [address] [place] [address] MCH (RBC) [Entitic mass] 29.9 pg Normal 27.0-33.0 [facility] Comment on above: Performed By: #### L [id number] #### [facility] ([facility]) [address] [place] [address] MCV (RBC) [Entitic vol] 93.3 fL Normal 82.0-98.0 [facility] Comment on above: Performed By: #### L [id number] #### [facility] ([facility]) [address] [place] [address] PLATELETS (10*3/UL) IN BLOOD AUTOMATED COUNT 179 10*3/uL Normal 150-400 [facility] Comment on above: Performed By: #### L [id number] #### [facility] ([facility]) [address] [place] [address] RBC (Bld) [#/Vol] 4.21 10*6/uL Normal 4.20-5.70 [facility] Comment on above: Performed By: #### L [id number] #### [facility] ([facility]) [address] [place] [address] WBC (Bld) [#/Vol] 8.32 10*3/uL Normal 4.00-10.60 [facility] Comment on above: Performed By: #### L [id number] #### [facility] ([facility] [address] [place] [address] DSon 05-03-2023 DS -- Attestation signed by Eliceo Espinoza MD at 05/05/2023 4:30 PM By using [...] fibrillation (CM* Discharge Diagnosis Persistent atrial fibrillation (CMS/[facility]) s/p ablation Discharge Disposition Home or Self [...] Your Medications These medications were sent to [facility]/pharmacy #[id number] [place] [address] famotidine 20 mg tablet sucralfate 1 gram [...] II, HTN, vasovagal syncope who presented to [facility] for an elective a.fib ablation on [...] he will (more content not included)... Normal [facility] POCT GLUCOSE METER UNSOLICIT ED RESULTSon 05-03-2023 Glucose [Mass/Vol] 289 mg/dL High 70-105 [facility] Comment on above: Order Comment: Waive d Testing in the ED is performed under the ED CLIA certificate #[id number]. Result Comment: libia dou2 Performed By: #### L [id number] ####[facility] ([facility])[address] [place] [address] Glucose [Mass/Vol] 176 mg/dL High 70-105 [facility] Comment on above: Order Comment: Waive d Testing in the ED is performed under the ED CLIA certificate #[id number]. Result Comment: libia dou2 Performed By: #### L [id number] #### [facility] ([facility]) [address] [place] [address] HPon 05-02-2023 -- Attestation signed by Eliceo Espinoza MD at 05/05/2023 4:30 PM By using [...] there are no changes to the H&P. [facility] NURSNOTEon 05-02-2023 NURSNOTE went home for t he evening. Will call with room number when patient gets a bed. Normal [facility] POCT GLUCOSE METER UNSOLICIT ED RESULTSon 05-02-2023 Glucose [Mass/Vol] 125 mg/dL High 70-105 [facility] Comment on above: Order Comment: Waive d Testing in the ED is performed under the ED CLIA certificate #[id number]. Result Comment: [email or web address] Performed By: #### L [id number] ####[facility] ([facility])[address] [place] [address] Glucose [Mass/Vol] 113 mg/dL High 70-105 [facility] Comment on above: Order Comment: Waive d Testing in the ED is performed under the ED CLIA certificate #[id number]. Result Comment: lwag enh Performed By: #### L [id number] #### [facility] ([facility]) [address] [place] [address] Glucose [Mass/Vol] 108 mg/dL High 70-105 [facility] Comment on above: Order Comment: Waive d Testing in the ED is performed under the ED CLIA certificate #[id number]. Result Comment: mwer nert Performed By: #### L [id number] #### [facility] ([employer]) [address] [place] [address] Glucose [Mass/Vol] 198 mg/dL High 70-105 [facility] Comment on above: Order Comment: Waive d Testing in the ED is performed under the ED CLIA certificate #[id number]. Result Comment: aepp ink Performed By: #### L [id number] #### [facility] ([employer]) [address] [place] [address] PROTIME-INRon 05-02-2023 INR IN PPP BY COAGULATION ASSAY 0.98 Normal 0.90-1.10 [facility] Comment on above: Result Comment: ACCC P [...] CHEST 1995;108:231S-246S. Performed By: #### L [id number] #### [facility] ([facility]) [address] [place] [address] PROTHROMBIN TIME (PT) IN PPP BY COAGULATION ASSAY 12.9 Seconds Normal 12.3-14.8 [facility] Comment on above: Performed By: #### L [id number] #### [facility] ([facility]) [address] [place] [address] HPon 04-30-2023 [facility] Electrophysiology Consult Note [facility] Date of Telehealth Visit: 04/30/23 The patient was notified that using 3rd green party telecommunication application (e.g., [employer]) is not HIPPA compliant and may carry some privacy risks. Yes The visit was conducted [id number] with the use of audio and video [...] edema, EKG 01/29/23 SR. Prior HPI: Gadiel Smith is a 72 y.o. 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 Gadiel is here regarding feeling lightheaded with palpitations on 10/15 and he went to the [facility] emergency department was found to be [...] 3 Lantus Solost (more content not included)... Normal [facility] Telemedicineon 04-30-2023 Telemedicine [id number] Gadiel Smith 1950 M Date Provider Department Center 04/30/2023 ELICEO FORTE RO [place] Family History Problem Relation Age [...] Paternal Grandmother Paternal Grandfather Other Level of Service:[address] [place] PHYS/QHP TELEPHONE EVALUATION 11-20 MIN [facility] [id number] 04-26-2023 [id number] Nothing to eat or drink after midnight Hold MVI, Herbal Supplements, NSAIDS x 7 days Hold the prescription meds we spoke about: ELIQUIS 48 HRS PRIOR TO PROCEDURE Take the meds we spoke about w/a sip of water DOS: LANTUS, SYNTHROID, AMIODARONE, COREG, WELBUTRIN, NEXIUM [facility] B-TYPE NATRIURETIC PEPTIDEon 04-26-2023 Natriuretic peptide B (Bld) [Mass/Vol] 87 pg/mL Normal 0-100 [facility] Comment on above: Performed By: #### L [id number] #### [facility] ([facility]) [address] [place] [address] CBC WITH AUTO DIFFERENTIALon 04-26-2023 Basophils (Bld) [#/Vol] 0.04 10*3/uL Normal 0.00-0.20 [facility] Comment on above: Performed By: #### L [id number] #### [facility] ([facility]) [address] [place] [address] Basophils/100 WBC (Bld) 0.6 % Normal 0.0-1.0 [facility] Comment on above: Performed By: #### L [id number] #### [facility] ([facility]) [address] [place] [address] Eosinophils (Bld) [#/Vol] 0.21 10*3/uL Normal 0.00-0.50 [facility] Comment on above: Performed By: #### L [id number] #### [facility] ([facility]) [address] [place] [address] Eosinophils/100 WBC (Bld) 3.2 % Normal 0.0-6.0 [facility] Comment on above: Performed By: #### L [id number] #### [facility] ([facility]) [address] [place] [address] Erythrocyte distribution width (RBC) [Ratio] 13.2 % Normal 11.5-15.0 [facility] Comment on above: Performed By: #### L [id number] #### [facility] ([facility]) [address] [place] [address] ERYTHROCYTE MEAN CORPUSCULAR HEMOGLOBIN CONCENTRATION (G/DL) BY AUTOMATED 33.6 g/dL Normal 32.0-35.0 [facility] Comment on above: Performed By: #### L [id number] #### [facility] ([facility]) [address] [place] [address] Hematocrit (Bld) [Volume fraction] 39.9 % Normal 39.0-55.0 [facility] Comment on above: Performed By: #### L [id number] #### [facility] ([facility]) [address] [place] [address] Hemoglobin (Bld) [Mass/Vol] 13.4 g/dL Normal 13.0-17.0 [facility] Comment on above: Performed By: #### L [id number] #### [facility] ([facility]) [address] [place] [address] Immature granulocytes (Bld) [#/Vol] 0.09 10*3/uL Normal 0.00-0.20 [facility] Comment on above: Performed By: #### L [id number] #### [facility] ([facility]) [address] [place] [address] Immature granulocytes/100 WBC (Bld) 1.4 % High 0.0-1.0 [facility] Comment on above: Performed By: #### L [id number] #### [facility] ([facility]) [address] [place] [address] Lymphocytes (Bld) [#/Vol] 1.30 10*3/uL Normal 1.20-4.00 [facility] Comment on above: Performed By: #### L [id number] #### [facility] ([facility]) [address] [place] [address] Lymphocytes/100 WBC (Bld) 19.9 % Low 20.0-45.0 [facility] Comment on above: Performed By: #### L [id number] #### [facility] ([facility]) [address] [place] [address] MCH (RBC) [Entitic mass] 30.8 pg Normal 27.0-33.0 [facility] Comment on above: Performed By: #### L [id number] #### [facility] ([facility]) [address] [place] [address] MCV (RBC) [Entitic vol] 91.7 fL Normal 82.0-98.0 [facility] Comment on above: Performed By: #### L [id number] #### [facility] ([facility]) [address] [place] [address] Monocytes (Bld) [#/Vol] 0.77 10*3/uL Normal 0.10-1.00 [facility] Comment on above: Performed By: #### L [id number] #### [facility] ([facility]) [address] [place] [address] Monocytes/100 WBC (Bld) 11.8 % Normal 5.0-12.0 [facility] Comment on above: Performed By: #### L [id number] #### [facility] ([facility]) [address] [place] [address] Neutrophils (Bld) [#/Vol] 4.12 10*3/uL Normal 1.60-7.60 [facility] Comment on above: Performed By: #### L [id number] #### [facility] ([facility] [address] [place] [address] Neutrophils/100 WBC (Bld) 63.1 % Normal 40.0-72.0 [facility] Comment on above: Performed By: #### L [id number] #### [facility] ([facility]) [address] [place] [address] NRBC (PER 100 WBCS) BY AUTOMATED COUNT 0.0 % Normal 0 [facility] Comment on above: Performed By: #### L [id number] #### [facility] ([facility]) [address] [place] [address] PLATELETS (10*3/UL) IN BLOOD AUTOMATED COUNT 183 10*3/uL Normal 150-400 [facility] Comment on above: Performed By: #### L [id number] #### [facility] ([facility]) [address] [place] [address] RBC (Bld) [#/Vol] 4.35 10*6/uL Normal 4.20-5.70 [facility] Comment on above: Performed By: #### L [id number] #### [facility] ([facility]) [address] [place] [address] WBC (Bld) [#/Vol] 6.53 10*3/uL Normal 4.00-10.60 [facility] Comment on above: Performed By: #### L [id number] #### [facility] ([facility]) [address] [place] [address] COMPREHENSIVE METABOLIC PANE Harlan 04-26-2023 Albumin [Mass/Vol] 4.1 g/dL Normal 3.5-5.7 [facility] Comment on above: Performed By: #### L [id number] #### [facility] ([facility]) [address] [place] [address] ALP [Catalytic activity/Vol] 57 U/L Normal 34-104 [facility] Comment on above: Performed By: #### L [id number] #### [facility] ([facility]) [address] [place] [address] ALT [Catalytic activity/Vol] 42 U/L Normal 7-52 [facility] Comment on above: Performed By: #### L [id number] #### [facility] ([facility]) [address] [place] [address] Anion gap [Moles/Vol] 13 mmol/L Normal 7-20 [facility] Comment on above: Performed By: #### L [id number] #### [facility] ([facility]) [address] [place] [address] AST [Catalytic activity/Vol] 29 U/L Normal 13-39 [facility] Comment on above: Performed By: #### L [id number] #### [facility] ([facility]) [address] [place] [address] Bilirubin [Mass/Vol] 0.9 mg/dL Normal 0.3-1.0 [facility] Comment on above: Performed By: #### L [id number] #### [facility] ([facility]) [address] [place] [address] Calcium [Mass/Vol] 9.2 mg/dL Normal 8.6-10.3 [facility] Comment on above: Performed By: #### L [id number] #### [facility] ([facility] [address] [place] [address] Chloride [Moles/Vol] 106 mmol/L Normal 98-107 [facility] Comment on above: Performed By: #### L [id number] #### [facility] ([facility]) [address] [place] [address] CO2 [Moles/Vol] 23 mmol/L Normal 21-31 [facility] Comment on above: Performed By: #### L [id number] #### [facility] ([facility]) [address] [place] [address] Creatinine [Mass/Vol] 1.11 mg/dL Normal 0.70-1.30 [facility] Comment on above: Performed By: #### L [id number] #### [facility] ([facility]) [address] [place] [address] GLOMERULAR FILTRATION RATE ML/MIN/1.73 SQ M.PREDICTED 71.0 mL/min/1.73m*2 Normal >60.0 [facility] Comment on above: Result Comment: The [facility]???s estimated glomerular filtration rate (eGFR) will no [...] of individuals. Performed By: #### L [id number] #### [facility] ([facility]) [address] [place] [address] Glucose [Mass/Vol] 224 mg/dL High 70-100 [facility] Comment on above: Performed By: #### L [id number] #### [facility] ([facility]) [address] [place] [address] Potassium [Moles/Vol] 4.2 mmol/L Normal 3.5-5.1 [facility] Comment on above: Performed By: #### L [id number] #### [facility] ([facility]) [address] [place] [address] Protein [Mass/Vol] 6.9 g/dL Normal 6.0-8.3 [facility] Comment on above: Performed By: #### L [id number] #### [facility] ([facility]) [address] [place] [address] Sodium [Moles/Vol] 138 mmol/L Normal 136-145 [facility] Comment on above: Performed By: #### L [id number] #### [facility] ([facility]) [address] [place] [address] Urea nitrogen [Mass/Vol] 22 mg/dL Normal 7-25 [facility] Comment on above: Performed By: #### L [id number] #### [facility] ([facility]) [address] [place] [address] UREA NITROGEN/CREATININE (MASS RATIO) IN SER/PLAS 19.8 Normal [facility] Comment on above: Performed By: #### L [id number] #### [facility] ([facility]) [address] [place] [address] MAGNESIUMon 04-26-2023 Magnesium [Mass/Vol] 1.9 mg/dL Normal 1.9-2.7 [facility] Comment on above: Performed By: #### L [id number] #### [facility] ([facility]) [address] [place] [address] Orders Onlyon 04-26-2023 Orders Only [id number] Gadiel Smith 1950 M Date Provider Department Center 04/26/2023 [id number] ADHIKARI RO [place] Family History Problem Relation Age [...] Grandfather Paternal Grandmother Paternal Grandfather Other Normal [facility] Orders Only [id number] Gadiel Smith 1950 [facility] Provider Department [place] 04/26/2023 JANEE JAIME CARD [place] [facility] Family History Problem Relation Age of [...] Grandfather Paternal Grandmother Paternal Grandfather Other Normal [facility] Orders Only [id number] Gadiel Smith 1950 [facility] Provider Department [place] 04/26/2023 JESÚS SIMPSON CARD [place] [facility] Family History Problem Relation Age of [...] Grandfather Paternal Grandmother Paternal Grandfather Other Normal [facility] PROTIME-INRon 04-26-2023 INR IN PPP BY COAGULATION ASSAY 1.27 High 0.90-1.10 [facility] Comment on above: Result Comment: ACCC P [...] CHEST 1995;108:231S-246S. Performed By: #### L [id number] #### [facility] ([facility]) [address] [place] [address] PROTHROMBIN TIME (PT) IN PPP BY COAGULATION ASSAY 15.9 Seconds High 12.3-14.8 [facility] Comment on above: Performed By: #### L [id number] #### [facility] ([facility]) [address] [place] [address] ECHOCARDIO M/2D COMPLETEon 0 02-28-2023 ECHOCARDIO M/2D COMPLETE Patient: GADIEL SMITH Exam Date: 02/28/2023 : 1950 Gender:M Ordering : ELICEO ESPINOZA Admission #: [id number] Family : DR JOSELUIS QUIROZ M.D. Order #: [id number] CLICK HERE TO VIEW EXAM ECHOCARDIOGRAM REPORT [...] Left Atrium LA Volume Index (2D A2C): 60307 mm3 Left Atrium Systolic Dimension: 4.90 cm [...] Patten M.D. on 02/28/2023 at 20:13 Normal [facility] PROF 14(COMP METB)on 023 Albumin [Mass/Vol] 3.7 g/dL Normal 3.4-5.0 [facility] Comment on above: Performed By: #### C MP #### [facility] [address] [place] [address] Dr. Esme Jackson Albumin/Globulin [Mass ratio] 1.1 {ratio} Normal [facility] Comment on above: Performed By: #### C MP #### [facility] [address] [place] [address] Dr. Esme Jackson ALP [Catalytic activity/Vol] 65 U/L Normal 46-116 [facility] Comment on above: Performed By: #### C MP #### [facility] [address] [place] [address] Dr. Esme Jackson ALT [Catalytic activity/Vol] 26 U/L Normal 16-63 [facility] Comment on above: Performed By: #### C MP #### [facility] [address] [place] [address] Dr. Esme Jackson Anion gap [Moles/Vol] 10.8 mmol/L Normal [facility] Comment on above: Performed By: #### C MP #### [facility] [address] [place] [address] Dr. Esme Jackson AST [Catalytic activity/Vol] 16 U/L Normal 15-37 [facility] Comment on above: Performed By: #### C MP #### [facility] [address] [place] [address] Dr. Esme Jackson Bilirubin [Mass/Vol] 1.1 mg/dL Critically high 0.2-1.0 [facility] Comment on above: Performed By: #### C MP #### [facility] [address] [place] [address] [address] Esme Jackson Calcium [Mass/Vol] 9.4 mg/dL Normal 8.5-10.1 [facility] Comment on above: Performed By: #### C MP #### [facility] [address] [place] [address] [address] Esme Jackson Chloride [Moles/Vol] 103 mmol/L Normal 98-107 [facility] Comment on above: Performed By: #### C MP #### [facility] [address] [place] [address] [address] Esme Jackson CO2 [Moles/Vol] 28.5 mmol/L Normal 21.0-32.0 [facility] Comment on above: Performed By: #### C MP #### [facility] [address] [place] [address] [address] Esme Jackson Creatinine [Mass/Vol] 1.07 mg/dL Normal 0.70-1.30 [facility] Comment on above: Performed By: #### C MP #### [facility] [address] [place] [address] Dr. Esme Jackson EGFR-AF VIETNAMESE >60 Normal >=60 [facility] Comment on above: Performed By: #### C MP #### [facility] [address] [place] [address] Dr. Esme Jackson EGFR-NON AF VIET[place]ESE >60 Normal >=60 [facility] Comment on above: Performed By: #### C MP #### [facility] [address] [address] [address] Esme Jackson Globulin (S) [Mass/Vol] 3.5 g/dL Normal [facility] Comment on above: Performed By: #### C MP #### [facility] [address] [place] [address] Dr. Esme Jackson Glucose [Mass/Vol] 190 mg/dL Critically high 74-106 [facility] Comment on above: Performed By: #### C MP #### [facility] [address] [address] [address] Esme Jackson Potassium [Moles/Vol] 5.3 mmol/L Critically high 3.5-5.1 [facility] Comment on above: Performed By: #### C MP #### [facility] [address] [address] [address] Esme Jackson Protein [Mass/Vol] 7.2 g/dL Normal 6.4-8.2 [facility] Comment on above: Performed By: #### C MP #### [facility] [address] [place] [address] Dr. Esme Jackson Sodium [Moles/Vol] 137 mmol/L Normal 136-145 [facility] Comment on above: Performed By: #### C MP #### [facility] [facility] [address] [place] [address] Dr. Esme Jackson Urea nitrogen [Mass/Vol] 14.0 mg/dL Normal 7.0-18.0 [facility] Comment on above: Performed By: #### C MP #### [facility] [address] [place] [address] Dr. Esme Jackson Urea nitrogen/Creatinine [Mass ratio] 13.1 mg/mg Normal [facility] Comment on above: Performed By: #### C MP #### [facility] [address] [place] [address] Dr. Esme Jackson BNPon 11-10-2022 Natriuretic peptide B (Bld) [Mass/Vol] 6259.0 pg/mL Critically high <=900.0 [facility] Comment on above: Performed By: #### B VP AD PRODUCTS AND PLANNING, BMP, HSTROPN #### [facility] [address] [place] [address] Dr. Esme Jackson CBC AUTO DIFFon 11-10-2022 BASO # 0.0 103/ul Normal 0.0-0.1 [facility] Comment on above: Performed By: #### C BC #### [facility] [address] [place] [address] Dr. Esme Jackson Basophils/100 WBC (Bld) 0.5 % Normal 0.2-2.0 [facility] Comment on above: Performed By: #### C BC #### [facility] [address] [place] [address] Dr. Esme Jackson EO # 0.3 103/ul Normal 0.0-0.7 [facility] Comment on above: Performed By: #### C BC #### [facility] [address] [place] [address] Dr. Esme Jackson Eosinophils/100 WBC (Bld) 3.6 % Normal 0.9-7.0 [facility] Comment on above: Performed By: #### C BC #### [facility] [address] [place] [address] Dr. Esme Jackson Erythrocyte distribution width (RBC) [Ratio] 14.8 % Normal 11.0-15.0 [facility] Comment on above: Performed By: #### C BC #### [facility] [address] [place] [address] Dr. Esme Jackson Hematocrit (Bld) [Volume fraction] 36.9 % Critically low 42.0-54.0 [facility] Comment on above: Performed By: #### C BC #### [facility] [address] [place] [address] Dr. Esme Jackson Hemoglobin (Bld) [Mass/Vol] 12.0 g/dL Critically low 14.0-18.0 [facility] Comment on above: Performed By: #### C BC #### [facility] [address] [place] [address] Dr. Esme Jackson IG # 0.04 10e3/ul Critically high 0.00-0.03 [facility] Comment on above: Performed By: #### C BC #### [facility] [address] [place] [address] Dr. Esme Jackson IG % 0.5 % Normal 0.0-0.5 [facility] Comment on above: Performed By: #### C BC #### [facility] [address] [place] [address] Dr. Esme Jackson LYMPH # 1.3 103/ul Normal 1.2-3.8 [facility] Comment on above: Performed By: #### C BC #### [facility] [address] [place] [address] Dr. Esme Jackson Lymphocytes/100 WBC (Bld) 18.2 % Critically low 20.5-60.0 [facility] Comment on above: Performed By: #### C BC #### [facility] [address] [place] [address] Dr. Esme Jackson MANUAL DIFF REQ NO Normal [facility] Comment on above: Performed By: #### C BC #### [facility] [address] [place] [address] Dr. Esme Jackson MCH (RBC) [Entitic mass] 28.0 pg Normal 25.9-34.0 [facility] Comment on above: Performed By: #### C BC #### [facility] [address] [place] [address] Dr. Esme Jackson MCHC (RBC) [Mass/Vol] 32.5 g/dL Normal 29.9-35.2 [facility] Comment on above: Performed By: #### C BC #### [facility] [address] [place] [address] Dr. Esme Jackson MCV (RBC) [Entitic vol] 86.0 fL Normal 80.0-94.0 [facility] Comment on above: Performed By: #### C BC #### [facility] [address] [place] [address] Dr. Esme Jackson MONO # 0.5 103/ul Normal 0.3-0.8 [facility] Comment on above: Performed By: #### C BC #### [facility] [address] [place] [address] Dr. Esme Jackson Monocytes/100 WBC (Bld) 7.3 % Normal 1.7-12.0 [facility] Comment on above: Performed By: #### C BC #### [facility] [address] [place] [address] Dr. Esme Jackson NEUT # 5.1 103/ul Normal 1.4-6.5 [facility] Comment on above: Performed By: #### C BC #### [facility] [address] [place] [address] Dr. Esme Jackson Neutrophils/100 WBC (Bld) 69.9 % Normal 43.0-75.0 [facility] Comment on above: Performed By: #### C BC #### [facility] [address] [place] [address] Dr. Esme Jackson Platelet mean volume (Bld) [Entitic vol] 10.3 fL Normal 9.5-13.5 [facility] Comment on above: Performed By: #### C BC #### [facility] [address] [place] [address] Dr. Esme Jackson PLT 220 103/ul Normal 150-450 [facility] Comment on above: Performed By: #### C BC #### [facility] [address] [place] [address] Dr. Esme Jackson RBC 4.29 106/ul Critically low 4.70-6.10 [facility] Comment on above: Performed By: #### C BC #### [facility] [address] [place] [address] Dr. Esme Jackson WBC 7.3 103/ul Normal 4.0-11.0 [facility] Comment on above: Performed By: #### C BC #### [facility] [address] [place] [address] Dr. Esme Jackson Covid-19 PCR ([facility])on 10-13 SARS-CoV-2 (COVID-19) RNA HANSA+probe Ql (Unsp spec) Not detected Normal NOT DETECTED [facility] Comment on above: Result Comment: When [...] for this test is supported by the [employer] of Health and Human Service's declaration that [...] used). Performed By: #### C VDTBH #### [facility] [address] [place] [address] Dr. Esme Jackson INFLUENZA A [facility] B [facility] Normal [facility] Comment on above: Result Comment: Nega tive for Flu A protein angiten. Infection due to Flu A cannot be ruled out. Flu A angiten in the sample may be below the detection limit of the test. Performed By: #### F T4 #### [facility] [address] [place] [address] Dr. Esme Jackson [facility] SEE BELOW Normal [facility] Comment on above: Result Comment: Nega tive for Flu B protein antigen. Infection due to Flu B cannot be ruled out. Flu B antigen in the sample may be below the detection limit of the test. Performed By: #### F T4 #### [facility] [address] [place] [address] Dr. Esme Jackson INFLUENZA A AG Negative Normal NEGATIVE SEE COMMENT [facility] Comment on above: Performed By: #### F T4 #### [facility] [address] [place] [address] Dr. Esme Jackson INFLUENZA B AG Negative Normal NEGATIVE SEE COMMENT [facility] Comment on above: Performed By: #### F T4 #### [facility] [address] [place] [address] Dr. Esme Jackson PROF CHEM 8 (BAS METB)on Anion gap [Moles/Vol] 13.9 mmol/L Normal [facility] Comment on above: Performed By: #### B VP [employer], BMP, HSTROPN #### [facility] [address] [place] [address] Dr. Esme Jackson Calcium [Mass/Vol] 8.7 mg/dL Normal 8.5-10.1 [facility] Comment on above: Performed By: #### B VP [employer], BMP, HSTROPN #### [facility] [address] [address] [address] Esme Jackson Chloride [Moles/Vol] 104 mmol/L Normal 98-107 [facility] Comment on above: Performed By: #### B VP [employer]ANNING, BMP, HSTROPN #### [facility] [address] [address] [address] Esme Jackson CO2 [Moles/Vol] 25.2 mmol/L Normal 21.0-32.0 [facility] Comment on above: Performed By: #### B VP [employer]CTS [employer] PLANNING, BMP, HSTROPN #### [facility] [address] [place] [address] Dr. Esme Jackson Creatinine [Mass/Vol] 1.04 mg/dL Normal 0.70-1.30 [facility] Comment on above: Performed By: #### B VP [employer] PLANNING, BMP, HSTROPN #### [facility] [address] [place] [address] Dr. Esme Jackson EGFR-AF VIET[place]ESE >60 Normal >=60 [facility] Comment on above: Performed By: #### B VP AD [employer]ODUCTS [employer] PLANNING, BMP, HSTROPN #### [facility] [address] [place] [address] Dr. Esme Jackson EGFR-NON AF VIET[place]ESE >60 Normal >=60 [facility] Comment on above: Performed By: #### B VP AD [employer]ODUCTS [employer] PLANNING, BMP, HSTROPN #### [facility] [address] [address] [address] Esme Jackson Glucose [Mass/Vol] 199 mg/dL Critically high 74-106 [facility] Comment on above: Performed By: #### B VP AD [employer]ODUCTS [employer] PLANNING, BMP, HSTROPN #### [facility] [address] [address] [address] Esme Jackson Potassium [Moles/Vol] 4.1 mmol/L Normal 3.5-5.1 [facility] Comment on above: Performed By: #### B VP [employer]ODUCTS [employer] PLANNING, BMP, HSTROPN #### [facility] [address] [address] [address] Esme Jackson Sodium [Moles/Vol] 139 mmol/L Normal 136-145 [facility] Comment on above: Performed By: #### B VP [employer]CTS [employer] PLANNING, BMP, HSTROPN #### [facility] [address] [address] [address] Esme Jackson Urea nitrogen [Mass/Vol] 18.0 mg/dL Normal 7.0-18.0 [facility] Comment on above: Performed By: #### B VP [employer]CTS [employer] PLANNING, BMP, HSTROPN #### [facility] [address] [address] [address] Esme Jackson Urea nitrogen/Creatinine [Mass ratio] 17.3 mg/mg Normal [facility] Comment on above: Performed By: #### B VP [employer]ODUCTS [employer] PLANNING, BMP, HSTROPN #### [facility] [address] [place] [address] Dr. Esme Jackson TROPONIN, HIGH SENSITIVITYon 11-10-2022 HSTROP 35.5 pg/mL Normal 4.0-76.1 [facility] Comment on above: Result Comment: CUT- OFF POINTS HAVE BEEN ESTABLISHED BASED ON THE FOURTH UNIVERSAL DEFINITIONS OF MYOCARDIAL INFARCTION. THE UPPER REFERENCE LIMIT (URL) OF TROPONIN, DEFINED THE 99TH PERCENTILE OF cTnI DISTRIBUTION IN A REFERENCE POPULATION, HAS BEEN CONFIRMED THE DECISION THRESHOLD FOR [place] DIAGNOSIS. Performed By: #### B VP [employer]ODUCTS [employer] PLANNING, BMP, HSTROPN #### [facility] [address] [place] [address] Dr. Esme Jackson XR CHEST 1 Von [...] authenticated by: RY CLINTON Date: 2022-11-10 09:24 Normal [facility] Covid-19 PCR ([facility])on SARS-CoV-2 (COVID-19) RNA HANSA+probe Ql (Unsp spec) Not detected Normal NOT DETECTED [facility] Comment on above: Result Comment: When [...] for this test is supported by the [employer] of Health and Human Service's declaration that [...] used). Performed By: #### C VDTBH #### [facility] [address] [place] [address] Dr. Esme Jackson INFLUENZA A AND B AGon 10-15 [facility] SEE BELOW Normal [facility] Comment on above: Result Comment: Nega tive for Flu A protein angiten. Infection due to Flu A cannot be ruled out. Flu A angiten in the sample may be below the detection limit of the test. Performed By: #### F T4 #### [facility] [address] [place] [address] Dr. Esme Jackson [facility]LOCATED WITHIN [facility] SEE BELOW Normal [facility] Comment on above: Result Comment: Nega tive for Flu B protein antigen. Infection due to Flu B cannot be ruled out. Flu B antigen in the sample may be below the detection limit of the test. Performed By: #### F T4 #### [facility] [address] [place] [address] Dr. Esme Jackson INFLUENZA A AG Negative Normal NEGATIVE SEE COMMENT [facility] Comment on above: Performed By: #### F T4 #### [facility] [address] [place], [place] [address] Dr. Esme Jackson INFLUENZA B AG Negative Normal NEGATIVE SEE COMMENT [facility] Comment on above: Performed By: #### F T4 #### [facility] [address] [place], [place] [address] Dr. Esme Jackson INTERNAL CONTROLS Within Normal Limits Normal Wi thin Normal Limits [facility] Comment on above: Performed By: #### F T4 #### [facility] [address] [place], [place] [address] Dr. Esme Jackson XR CHEST 2 Von [...] RAPHAEL NUNEZ Date: 2022-10-15 10:08 Normal [facility] Follow Up (Endocrinology)on 10-10-2022 Follow Up [...] long-term current use of insulin; Ordered By:Mandie Salamanca; Radiologist to Determine Optimal Study : Y What are the patient's signs and symptoms? : pituitary insufficiency Central hypothyroidism, Hyperlipemia, Hypogonadism male, Pituitary macroadenoma, Thyroid nodule, Type 2 diabetes mellitus with other specified complication, with long-term current use of insulin Start: Ramipril 5 MG Oral Capsule; TAKE 1 CAPSULE ONCE DAILY Rx By: Mandie Salamanca; Dispense: 30 Days ; #:30 Capsule; Refill: 11;For: Central hypothyroidism, Hyperlipemia, Hypogonadism male, Pituitary macroadenoma, Thyroid nodule, Type 2 diabetes mellitus with other specified complication, with long-term current use of insulin; CATIE = N; Verified Transmission to [id number]; Last Updated By: Veronique Pierre; 10/10/2022 11:29:03 AM Albumin, Urine Spot; Status:Active; Requested for:10Oct2022; Perform:Lab Services - Lab To Draw (Non-Blood Test); Due:08Jan2023;Ordered; For:Central hypothyroidism, Hyperlipemia, Hypogonadism male, Pituitary macroadenoma, Thyroid nodule, Type 2 diabetes mellitus with other specified complication, with long-term current use of insulin; Ordered By:Mandie Salamanca; Brain Natriuretic Peptide BNP; Status:Active; Requested for:10Oct2022; Perform:Lab Services - Lab To Draw (Blood Test); Due:[id number];Ordered; For:Central hypothyroidism, Hyperlipemia, Hypogonadism male, Pituitary macroadenoma, Thyroid nodule, Type 2 diabetes mellitus with other specified complication, with long-term current use of insulin; Ordered By:Mandie Salamanca; Complete Blood Count + Differential; Status:Active; Requested for:10Oct2022; Perform:Lab Services - Lab To Draw (Blood Test); Due:[id number];Ordered; For:Central hypothyroidism, Hyperlipemia, Hypogonadism male, Pituitary macroadenoma, Thyroid nodule, Type 2 diabetes mellitus with other specified complication, with long-term current use of insulin; Ordered By:Mandie Salamanca; Comprehensive Metabolic Panel; Status:Active; Requested for:10Oct2022; Perform:Lab Services - Lab To Draw (Blood Test); Due:[id number];Ordered; For:Central hypothyroidism, Hyperlipemia, Hypogonadism male, Pituitary macroadenoma, Thyroid nodule, Type 2 diabetes mellitus with other specified complication, with long-term current use of insulin; Ordered By:Mandie Salamanca; Cortisol, Unspecified; Status:Active; Requested for:10Oct2022; Perform:Lab Services - Lab To Draw (Blood Test); Due:[id number];Ordered; For:Central hypothyroidism, Hyperlipemia, Hypogonadism male, Pituitary macroadenoma, Thyroid nodule, Type 2 diabetes mellitus with other specified complication, with long-term current use of insulin; Ordered By:Mandie Salamanca; Hemoglobin A1C; Status:Active; Requested for:10Oct2022; Perform:Lab Services - Lab To Draw (Blood Test); Due:[id number];Ordered; For:Central hypothyroidism, Hyperlipemia, Hypogonadism male, Pituitary macroadenoma, Thyroid nodule, Type 2 diabetes mellitus with other specified complication, with long-term current use of insulin; Ordered By:Mandie Salamanca; Lipid Panel; Status:Active; Requested for:10Oct2022; Perform:Lab Services - Lab To Draw (Blood Test); Due:[id number];Ordered; For:Central hypothyroidism, Hyperlipemia, Hypogonadism male, Pituitary macroadenoma, Thyroid nodule, Type 2 diabetes mellitus with other specified complication, with long-term current use of insulin; Ordered By:Mandie Salamanca; Prolactin, Serum; Status:Active; Requested for:10Oct2022; Perform:Lab Services - Lab To Draw (Blood Test); Due:[id number];Ordered; For:Central hypothyroidism, Hyperlipemia, Hypogonadism male, Pituitary macroadenoma, Thyroid nodule, Type 2 diabetes mellitus with other specified complication, with long-term current use of insulin; Ordered By:Mandie Salamanca; T4 - Free Thyroxine, Serum; Status:Active; Requested for:10Oct2022; Perform:Lab Services - Lab To Draw (Blood Test); Due:[id number];Ordered; For:Central hypothyroidism, Hyperlipemia, Hypogonadism male, Pituitary macroadenoma, Thyroid nodule, Type 2 (more content not included)... Normal [facility] CNPMirta 07-02-2022 CNPN Telephone (ENDOMN) GADIEL SMITH ([id number]) 1950 M Date Time Provider Department 07/02/22 MANDIE SALAMANCA ENDOMN During your visit today, we recorded the following information about you: Janee Saul 07/02/2022 2:40 PM Signed Received Thyroid US report from [facility]. Indexed into chart. Allergies As of Date: 07/02/2022 Noted Allergy Reaction LISINOPRIL 04/28/2015 14 - Other: See Comments Comments: Fatigue Date Reviewed: 01/21/2019 Reviewed by: Maricruz Allison Ma - Fully Assessed Reason for Visit: Received Outside Medical Records [[id number]] Cmt: Received Thyroid US report from [facility]. Indexed into chart. Prescriptions as of [...] LANCETS) lancets Use as instructed - Insulin Coello, Disposable, (BD ULTRAFINE III MINI PEN) 31 [...] test [R94.39] 04/28/2015 Encounter Status:Closed by JANEE BUTCHER on 07/02/22 Normal [facility] CORTISOL Bri 06-25-2022 Cortisol AM 19.6 ug/dL Critically high 6.2-19.4 [facility] Comment on above: Performed By: #### C ORTAM #### [facility] [address] [address] [address] Esme Jackson MICROALBUMIN URINEon 022 Albumin, Urine 36.5 ug/mL Normal Not Estab. The [facility] Comment on above: Performed By: #### F T4 #### [facility] [address] [address] [address] Esme Jackson FREE T4on 06-22-2022 Free T4 [Mass/Vol] 1.22 ng/dL Normal 0.76-1.46 [facility] Comment on above: Performed By: #### F T4 #### [facility] [address] [address] [address] Esme Jackson GLYCOHEMOGLOBIN A1Con 2021 ADA RECOMMENDATION SEE BELOW Normal [facility] Comment on above: Result Comment: ADA RECOMMENDED LIMIT 4.0 - 6.0 ADA THERAPEUTIC TARGET < 7.0 ACTION SUGGESTED > 7.0 Performed By: #### F T4 #### [facility] [address] [address] [address] Esme Jackson Glucose [Mass/Vol] 194 mg/dL Normal [facility] Comment on above: Performed By: #### F T4 #### [facility] [address] [address] [address] Esme Jackson HbA1c (Bld) [Mass fraction] 8.4 % Critically high 4.5-6.2 [facility] Comment on above: Performed By: #### F T4 #### [facility] [address] [place] [address] Dr. Esme Jackson LIPID PROFILEon 06-22-2022 CHOL-HDL RATIO NORM SEE BELOW Normal [facility] Comment on above: Result Comment: 3.3 - 4.4 LOW RISK 4.4 - 7.1 AVERAGE RISK 7.1 - 11.0 MODERATE RISK >11.0 HIGH RISK Performed By: #### F T4 #### [facility] [address] [address] [address] Esme Jackson Cholesterol [Mass/Vol] 153 mg/dL Normal <=200 [facility] Comment on above: Performed By: #### F T4 #### [facility] [address] [address] [address] Esme Jackson Cholesterol in HDL [Mass/Vol] 55 mg/dL Normal 40-60 [facility] Comment on above: Performed By: #### F T4 #### [facility] [address] [address] [address] Esme Jackson Cholesterol in LDL [Mass/Vol] 82.2 mg/dL Normal [facility] Comment on above: Performed By: #### F T4 #### [facility] [address] [address] [address] Esme Jackson Cholesterol.total/Ch olesterol in HDL [Mass ratio] 2.8 {ratio} Normal [facility] Comment on above: Performed By: #### F T4 #### [facility] [address] [address] [address] Esme Jackson HDL NORMAL > or = 60 mg/dl - LO W CARDIOVASCULAR RISK <40 mg/dl - HIGH CARDIOVASCULAR RISK Normal [facility] Comment on above: Performed By: #### F T4 #### [facility] [address] [address] [address] Esme Jackson LDL CALC NORMAL SEE BELOW Normal [facility] Comment on above: Result Comment: <100 mg/dl OPTIMAL 100 - 129 mg/dl NEAR OR ABOVE OPTIMAL 130 - 159 mg/dl BORDERLINE HIGH 160 - 189 mg/dl HIGH >190 mg/dl VERY HIGH Performed By: #### F T4 #### [facility] [address] [place] [address] Dr. Esme Jackson Triglyceride [Mass/Vol] 79 mg/dL Normal <=150 [facility] Comment on above: Performed By: #### F T4 #### [facility] [address] [address] [address] Esme Jackson VLDL CALC 15.8 mg/dL Normal [facility] Comment on above: Performed By: #### F T4 #### [facility] [address] [address] [address] Esme Jackson PROF 14(COMP METB)on 022 Albumin [Mass/Vol] 3.9 g/dL Normal 3.4-5.0 [facility] Comment on above: Performed By: #### F T4 #### [facility] [address] [place] [address] Dr. Esme Jackosn Albumin/Globulin [Mass ratio] 1.1 {ratio} Normal [facility] Comment on above: Performed By: #### F T4 #### [facility] [address] [place] [address] Dr. Esme Jackson ALP [Catalytic activity/Vol] 57 U/L Normal 46-116 [facility] Comment on above: Performed By: #### F T4 #### [facility] [address] [place] [address] Dr. Esme Jackson ALT [Catalytic activity/Vol] 22 U/L Normal 16-63 [facility] Comment on above: Performed By: #### F T4 #### [facility] [address] [place] [address] Dr. Esme Jackson Anion gap [Moles/Vol] 12.6 mmol/L Normal [facility] Comment on above: Performed By: #### F T4 #### [facility] [address] [place] [address] Dr. Esme Jackson AST [Catalytic activity/Vol] 18 U/L Normal 15-37 [facility] Comment on above: Performed By: #### F T4 #### [facility] [address] [place] [address] Dr. Esme Jackson Bilirubin [Mass/Vol] 1.1 mg/dL Critically high 0.2-1.0 [facility] Comment on above: Performed By: #### F T4 #### [facility] [address] [place] [address] Dr. Esme Jackson Calcium [Mass/Vol] 9.0 mg/dL Normal 8.5-10.1 [facility] Comment on above: Performed By: #### F T4 #### [facility] [address] [place] [address] Dr. Esme Jackson Chloride [Moles/Vol] 103 mmol/L Normal 98-107 [facility] Comment on above: Performed By: #### F T4 #### [facility] [address] [place] [address] Dr. Esme Jackson CO2 [Moles/Vol] 27.2 mmol/L Normal 21.0-32.0 [facility] Comment on above: Performed By: #### F T4 #### [facility] [address] [address] [address] Esme Jackson Creatinine [Mass/Vol] 0.90 mg/dL Normal 0.70-1.30 [facility] Comment on above: Performed By: #### F T4 #### [facility] [address] [address] [address] Esme Jackson EGFR-AF VIETNAMESE >60 Normal >=60 [facility] Comment on above: Performed By: #### F T4 #### [facility] [address] [address] [address] Esme Jackson EGFR-NON AF VIETNAMESE >60 Normal >=60 [facility] Comment on above: Performed By: #### F T4 #### [facility] [address] [place] [address] Dr. Esme Jackson Globulin (S) [Mass/Vol] 3.4 g/dL Normal [facility] Comment on above: Performed By: #### F T4 #### [facility] [address] [place] [address] Dr. Esme Jackson Glucose [Mass/Vol] 185 mg/dL Critically high 74-106 [facility] Comment on above: Performed By: #### F T4 #### [facility] [address] [place] [address] Dr. Esme Jackson Potassium [Moles/Vol] 3.8 mmol/L Normal 3.5-5.1 [facility] Comment on above: Performed By: #### F T4 #### [facility] [address] [place] [address] Dr. Esme Jackson Protein [Mass/Vol] 7.3 g/dL Normal 6.4-8.2 [facility] Comment on above: Performed By: #### F T4 #### [facility] [address] [place] [address] Dr. Esme Jackson Sodium [Moles/Vol] 139 mmol/L Normal 136-145 [facility] Comment on above: Performed By: #### F T4 #### [facility] [address] [place], [place] [address] Dr. Esme Jackson Urea nitrogen [Mass/Vol] 12.0 mg/dL Normal 7.0-18.0 [facility] Comment on above: Performed By: #### F T4 #### [facility] [address] [place], [place] [address] Dr. Esme Jackson Urea nitrogen/Creatinine [Mass ratio] 13.3 mg/mg Normal [facility] Comment on above: Performed By: #### F T4 #### [facility] [address] [place], [place] [address] Dr. Esme Jackson US THYROIDon 06-22-2022 US [...] nodules. 1 year follow-up recommended TI-RADS: The [employer] TI-RADS committee's white paper recommendations for thyroid lesions classified as TR5 (highly suspicious) are listed below: > 0.5 cm. Annual ultrasound follow-up for up to 5 years. > 1.0 cm. FNA. J. Am Dionicio Radiol 2017;14:587-595. Electronically authenticated by: GEORGIE DAVIES Date: 2022-06-22 17:28 Normal [facility] Follow Up (Endocrinology)on 04-24-2022 Follow Up [...] long-term current use of insulin; Ordered By:Mandie Salamanca; Comprehensive Metabolic Panel; Status:Active; Requested for:24Apr2022; Perform:Lab Services - Lab To Draw (Blood Test); Due:23Jul2022;Ordered; For:Central hypothyroidism, Hyperlipemia, Hypogonadism male, Pituitary macroadenoma, Thyroid nodule, Type 2 diabetes mellitus with other specified complication, with long-term current use of insulin; Ordered By:Mandie Salamanca; Cortisol A.M.; Status:Active; Requested for:24Apr2022; Perform:Lab Services - Lab To Draw (Blood Test); Due:23Jul2022;Ordered; For:Central hypothyroidism, Hyperlipemia, Hypogonadism male, Pituitary macroadenoma, Thyroid nodule, Type 2 diabetes mellitus with other specified complication, with long-term current use of insulin; Ordered By:Mandie Salamanca; Hemoglobin A1C; Status:Active; Requested for:24Apr2022; Perform:Lab Services - Lab To Draw (Blood Test); Due:23Jul2022;Ordered; For:Central hypothyroidism, Hyperlipemia, Hypogonadism male, Pituitary macroadenoma, Thyroid nodule, Type 2 diabetes mellitus with other specified complication, with long-term current use of insulin; Ordered By:Mandie Salamanca; Lipid Panel; Status:Active; Requested for:24Apr2022; Perform:Lab Services - Lab To Draw (Blood Test); Due:23Jul2022;Ordered; For:Central hypothyroidism, Hyperlipemia, Hypogonadism male, Pituitary macroadenoma, Thyroid nodule, Type 2 diabetes mellitus with other specified complication, with long-term current use of insulin; Ordered By:Mandie Salamanca; T4 - Free Thyroxine, Serum; Status:Active; Requested for:24Apr2022; Perform:Lab Services - Lab To Draw (Blood Test); Due:23Jul2022;Ordered; For:Central hypothyroidism, Hyperlipemia, Hypogonadism male, Pituitary macroadenoma, Thyroid nodule, Type 2 diabetes mellitus with other specified complication, with long-term current use of insulin; Ordered By:Mandie Salamanca; Testosterone, Level; Status:Active; Requested for:24Apr2022; Perform:Lab Services - Lab To Draw (Blood Test); Due:23Jul2022;Ordered; For:Central hypothyroidism, Hyperlipemia, Hypogonadism male, Pituitary macroadenoma, Thyroid nodule, Type 2 diabetes mellitus with other specified complication, with long-term current use of insulin; Ordered By:Mandie Salamanca; Ultrasound Thyroid; Status:Hold For - Scheduling; Requested for:24Apr2022; Perform:[facility] Imaging; Due:23Jul2022;Ordered; For:Central hypothyroidism, Hyperlipemia, Hypogonadism male, Pituitary macroadenoma, Thyroid nodule, Type 2 diabetes mellitus with other specified complication, with long-term current use of insulin; Ordered By:Mandie Salamanca; Radiologist to Determine Optimal Study : Y What are the patient's signs and symptoms? : thyroid nodule Central hypothyroidism, Thyroid nodule Renew: Levothyroxine Sodium 75 MCG Oral Tablet (Synthroid); TAKE 1/2 TABLET DAILY. Please make a follow up appointment Rx By: Mandie Salamanca; Dispense: 90 Days ; #:45 Tablet; Refill: 3;For: Central hypothyroidism, Thyroid nodule; CATIE = N; Verified Transmission to [email or web address]; Last Updated By: Veronique Pierre; 04/24/2022 10:33:22 AM Hypogonadism male, Pituitary macroadenoma Renew: Testosterone 50 MG/5GM (1%) Transdermal Gel; APPLY 1 PACKET ONE TIME DAILY DIRECTED Rx By: Mandie Salamanca; Dispense: 0 Days ; #:90 X 5 GM Package; Refill: 1;For: Hypogonadism male, Pituitary macroadenoma; CATIE = N; [email or web address]; Last Updated By: Hashdoc; 04/24/2022 10:33:21 AM Pituitary macroadenoma Renew: Cabergoline 0.5 MG Oral Tablet; Take 1 tablet every other day Rx By: Mandie Salamanca; Dispense: 80 Days ; #:40 Tablet; Refill: 3;For: Pituitary macroadenoma; CATIE = N; Verified Transmission to [email or web address]; Last Updated By: Hashdoc; 04/24/2022 10:33:26 AM Type 2 diabetes mellitus with other specified complication, with long-term current use of insulin Renew: Accu-Chek Alicia Plus In Vitro Strip; TEST TWICE DAILY Rx B (more content not included)... Normal [employer] Tobacco Screening.on 022 Adult depression screening assessment No [facility] [address] Work Phone: Fall risk assessment a) No falls within the last year [facility] [address] Work Phone: Tobacco use status CPH[facility] b) No [facility] [address] Work Phone: Vital Signs Date Time Vital Sign Value Performing Clinician Facility 04-14-2024 12:35-0400 Diastolic blood pressure 63 mm[Hg] MD Joseluis Quiroz Work Phone: [facility] 04-14-2024 12:35-0400 Heart rate 54 /min MD Joseluis Quiroz Work Phone: [facility] 04-14-2024 12:35-0400 Respiratory rate 18 /min MD Joseluis Quiroz Work Phone: [facility] 04-14-2024 12:35-0400 SaO2% (BldA) [Mass fraction] 99 % MD Joseluis Quiroz Work Phone: [facility] 04-14-2024 12:35-0400 Systolic blood pressure 125 mm[Hg] MD Joseluis Quiroz Work Phone: [facility] 04-14-2024 11:02-0400 Body height 182.88 cm MD Joseluis Quiroz Work Phone: [facility] 04-14-2024 11:02-0400 Body weight 86.18 kg MD Joseluis Quiroz Work Phone: [facility] 03-18-2024 10:35-0400 Body height 182.88 cm MD Joseluis Quiroz Work Phone: [facility] 03-18-2024 10:35-0400 Body mass index (BMI) [Ratio] 25.7 kg/m2 MD Joseluis Quiroz Work Phone: [facility] 03-18-2024 10:35-0400 Body weight 86.18 kg MD Joseluis Quiroz Work Phone: [facility] 03-06-2024 10:52-0400 Body height 182.88 cm MD Joseluis Quiroz Work Phone: [facility] 03-06-2024 10:52-0400 Body mass index (BMI) [Ratio] 26.9 kg/m2 MD Joseluis Quiroz Work Phone: [facility] 03-06-2024 10:52-0400 Body temperature 99.2 [degF] MD Joseluis Quiroz Work Phone: [facility] 03-06-2024 10:52-0400 Body weight 89.98 kg MD Joseluis Quiroz Work Phone: [facility] 03-06-2024 10:52-0400 Diastolic blood pressure 60 mm[Hg] MD Joseluis Quiroz Work Phone: [facility] 03-06-2024 10:52-0400 Heart rate 69 /min MD Joseluis Quiroz Work Phone: [facility] 03-06-2024 10:52-0400 Respiratory rate 18 /min MD Joseluis Quiroz Work Phone: [facility] 03-06-2024 10:52-0400 SaO2% (BldA) [Mass fraction] 95 % MD Joseluis Quiroz Work Phone: [facility] 03-06-2024 10:52-0400 Systolic blood pressure 127 mm[Hg] MD Joseluis Quiroz Work Phone: [facility] 10-29-2023 13:30-0500 Body height 182.88 cm Joseluis Quiroz Other [facility] Other 10-29-2023 13:30-0500 Body mass index (BMI) [Ratio] 26.09 kg/m2 Joseluis Quiroz Other [facility] Other 10-29-2023 13:30-0500 Body weight 87.27 kg Joseluis Quiroz Other [facility] Other 10-29-2023 13:30-0500 Diastolic blood pressure 72 mm[Hg] Joseluis Quiroz Other [facility] Other 10-29-2023 13:30-0500 SaO2% (BldA) [Mass fraction] 93 % Joseluis Quiroz Other [facility] Other 10-29-2023 13:30-0500 Systolic blood pressure 130 mm[Hg] Joseluis Quiroz Other [facility] Other 08-19-2023 11:00-0400 Body height 182.88 cm Joseluis Quiroz Other [facility] Other 08-19-2023 11:00-0400 Body mass index (BMI) [Ratio] 25.36 kg/m2 Joseluis Quiroz Other [facility] Other 08-19-2023 11:00-0400 Body weight 84.82 kg Joseluis Quiroz Other [facility] Other 08-19-2023 11:00-0400 Diastolic blood pressure 61 mm[Hg] Joseluis Quiroz Other [facility] Other 08-19-2023 11:00-0400 Systolic blood pressure 126 mm[Hg] Joseluis Quiroz Other [employer] Other Encounters Encounter Date Encounter Type Care Provider Facility Start: 04-14-2024 Non-patient / Non-visit MD Joseluis Quiroz Work Phone: [facility] Work Phone: Start: 04-14-2024 End: 04-14-2024 Admission to same day surgery center MD Joseluis Quiroz Work Phone: [facility] Work Phone: Start: 04-14-2024 End: 04-14-2024 ambulatory MD Joseluis Quiroz Work Phone: [facility] Work Phone: Start: 04-01-2024 End: 04-01-2024 ambulatory JANEE MAURENE [facility] Start: 03-23-2024 End: 03-23-2024 ambulatory RAPHAEL SPRINGER Not Available Start: 03-18-2024 End: 03-18-2024 Patient encounter procedure MD Joseluis Quiroz Work Phone: [facility] Work Phone: Start: 03-06-2024 End: 03-06-2024 Patient encounter procedure MD Joseluis Quiroz Work Phone: [facility] Work Phone: Start: 12-23-2023 End: 12-23-2023 ambulatory Joseluis Quiroz Other [facility] Other Start: 12-23-2023 Telephone encounter Joseluis Quiroz [facility] Start: 10-29-2023 End: 10-29-2023 ambulatory Joseluis Quiroz Other [facility] Other Start: 10-29-2023 Office outpatient visit 15 minutes Joseluis Richie [facility] Start: 10-16-2023 End: 10-16-2023 ambulatory Joseluis Quiroz Other [facility] Other Start: 10-16-2023 Telephone encounter Joseluis Richie [facility] Start: 09-13-2023 End: 09-13-2023 ambulatory Joseluis Quiroz Other [facility] Other Start: 09-13-2023 Telephone encounter Joseluis Quiroz [facility] Start: 09-10-2023 End: 09-10-2023 ambulatory Joseluis Quiroz Other [facility] Other Start: 09-10-2023 Telephone encounter Joseluis Quiroz [facility] Start: 08-19-2023 End: 08-19-2023 ambulatory Joseluis Quiroz Other [facility] Other Start: 08-19-2023 Office outpatient visit 15 minutes Joseluis Quiroz [facility] Start: 07-31-2023 End: 07-31-2023 ambulatory Joseluis Quiroz Other [facility] Other Start: 07-31-2023 Telephone encounter Joseluis Quiroz [facility] Start: 07-30-2023 End: 07-30-2023 ambulatory [facility] Start: 06-05-2023 End: 06-05-2023 ambulatory [facility] Start: 05-29-2023 Rx Renewal Cabrera [facility]ont Work Phone: [facility] [address] Work Phone: Start: 05-02-2023 ambulatory [facility] Start: 05-02-2023 End: 05-03-2023 Evaluation and management of inpatient [facility] Start: 04-30-2023 End: 05-03-2023 ambulatory [facility] Start: 04-26-2023 End: 04-27-2023 ambulatory [facility] Start: 04-08-2023 Rx Renewal [facility]rera [facility]ont Work Phone: [facility] [place] Work Phone: Start: 02-28-2023 End: 03-01-2023 ambulatory ELICEO SUGGSCKO Facility:H1 Start: 01-30-[address] JOSELUIS QUIROZ Facil ity:H1 Start: 01-22-2023 AUDIT [facility]rera [facility] Work Phone: [facility] Work Phone: Start: 01-22-2023 Rx Renewal [facility] Work Phone: [facility] [address] [place] Work Phone: Start: 01-03-2023 End: 01-29-[address] JOSELUIS QUIROZ Facility:H1 Start: 11-28-2022 End: 11-29-2022 ambulatory JANEE REDDY Facility:H1 Start: 11-12-[address] JOSELUIS QUIROZ Facil ity:H1 Start: 11-10-2022 End: 11-10-[address] JEANNE Pierre Facility:H1 Start: 10-15-2022 End: 10-15-[address] RAPHAEL NUNEZ Facility:H1 Start: 10-10-2022 Office outpatient visit 25 minutes [facility] Work Phone: ZO-Ubtphnvcctzrs-AMP [address] Work Phone: Start: 10-10-2022 ambulatory Referral Self Facility: [id number] Start: 09-28-2022 AUDIT [facility]rera [facility] Work Phone: WS-Xqhtbdptcqchj-Xycsykp [facility] Work Phone: Start: 07-13-2022 Rx Renewal [facility]rera [address] Work Phone: [facility] [address] [place] Work Phone: Start: 07-02-2022 Telephone encounter Mandie sun MD Work Phone: Endocrinology Comment on above: Received Outside Med ical Records (Received Thyroid US report from [facility]. Indexed into chart. ) Start: 06-22-2022 End: 06-23-[address] DOCTOR BUSBY Facility:H1 Start: 04-24-2022 Office outpatient visit 40 minutes [facility] [address] Work Phone: YT-Gnmtgmgo-Rruyvev [address] Work Phone: Start: 04-24-[address] Cabrera Dupont Facility:[id number] Start: 03-27-2022 AUDIT Cabrera [facility]ont Work Phone: PU-Tkglqsqgmvypo-Thcoenc Work Phone: Start: 01-23-2022 KALPESH Dupont Work Phone: XM-Gwctgybnlvyzp-Kaleaem [facility] Work Phone: Start: 12-11-2021 Rx Renewal [facility]rera [facility] Work Phone: HX-Wcnmmabjnglpl-Hvlkmus [facility] Work Phone: Start: 11-08-2021 KALPESH Dupont Work Phone: RF-Vtzpqclrtmwct-Qabjhmm [facility] Work Phone: Start: 08-21-2021 KALPESH Dupont Work Phone: HH-Quhwiomeorhnx-WXI [address] Work Phone: Start: 05-31-2021 KALPESH Dupont Work Phone: HT-Jqfkhxdlbxvpy-FWQ [address] Work Phone: Start: 06-20-2017 End: 06-21-2017 Ambulatory DEFAULT PHYSICIAN Facility:[facility] Procedures Date Procedure Procedure Detail Performing Clinician Start: 04-14-2024 Colonoscopy MD Joseluis Quiroz Work Phone: Appendectomy [facility] Work Phone: Arthroscopy of knee [facility] Work Phone: Parathyroidectomy [facility] Work Phone: Vasectomy [facility] Work Phone: Plan of Treatment Date Care Activity Detail Author Start: 04-14-2024 [facility] Start: 10-10-2022 AMY, Provider: Mandie Salamanca, Status: Pen, Time: 11:15 AM AMY, Provider: Mandie Salamanca, Status: Pen, Time: 11:15 AM [facility] Work Phone: Start: 07-12-2022 Influenza vaccination INFLUENZA (#1) [facility] Start: 04-24-2022 AMY, Provider: Ynes Sahni, Status: Pen, Time: 1:00 PM [facility]: Ynes Sahni, Status: Pen, Time: 1:00 PM [facility] Work Phone: Start: 11-11-2021 ADVANCE DIRECTIVE DISCUSSION ADVANCE DIRECTIVE DISCUSSION [facility] Start: 07-24-2019 Hemoglobin A1c/Hemoglobin.total in Blood HBA1C [facility] Start: 08-24-2017 Hepatitis B screening URINE ALBUMIN:CREATININE RATIO [facility] Start: 08-24-2017 Hepatitis B surface antibody level LDL CHOLESTEROL [facility] Start: 08-14-2017 3 comp foot exam completed DIABETIC FOOT EXAM [facility] Start: 11-22-2016 Hepatitis C antibody, confirmatory test DILATED RETINAL EXAM [facility] Start: 2016 PNEUMOCOCCAL: 65+ (1 - PCV) PNEUMOCOCCAL: 65+ (1 - PCV) [facility] Start: 2001 SHINGRIX VACCINE (1 of 2) SHINGRIX VACCINE (1 of 2) [facility] Start: 1996 COLOGUARD (FIT-DNA) COLOGUARD (FIT-DNA) [facility] Start: 1996 Colonoscopy COLONOSCOPY [facility] Start: 1996 COLORECTAL CANCER SCREENING COLORECTAL CANCER SCREENING [facility] Start: [address] COLONOGRAPHY [facility] Start: 1996 FECAL OCCULT BLOOD FECAL OCCULT BLOOD [facility] Start: 1996 SIGMOIDOSCOPY SIGMOIDOSCOPY [facility] Start: 1970 Urine microalbumin profile DTAP,TDAP,TD (1 - Tdap) [facility] Start: 1969 HEPATITIS C SCREENING HEPATITIS C SCREENING [facility] Start: 1963 Adult depression screening assessment DEPRESSION SCREENING [facility] Start: 02-08-1951 COVID-19 VACCINE (#1) COVID-19 VACCINE (#1) [facility] Start: 1951 ABDOMINAL AORTIC ANEURYSM SCREENING ABDOMINAL AORTIC ANEURYSM SCREENING [facility] Patient Education Colon polyps Diverticulosis (DC) [facility] Work Phone: XR Abdomen Single view [facility] Immunizations Immunization Date Immunization Notes Care Provider Fa cility 08-15-2022 Fluzone High-Dose Quadrivalent 0.7 ML Intramuscular Suspension Prefilled Syringe [facility] Work Phone: CP-Olkncqdlcrcxa-L [facility] [place] Work Phone: 09-06-2021 Fluad Quadrivalent 0 .5 ML Intramuscular Prefilled Syringe [facility] Work Phone: QB-Oqlmwpnsgajdx-B [facility] [address] Work Phone: 01-18-2021 Neva COVID-19 Vac cine 0.5 ML Intramuscular Suspension [facility] Work Phone: PJ-Rolotzgmjmmbw-W [facility] [place] Work Phone: 09-08-2020 Fluad Quadrivalent 0 .5 ML Intramuscular Prefilled Syringe [facility]rera [facility] Work Phone: CA-Atrqxajmrkaku-Q [facility] Work Phone: 08-24-2020 influenza, seasonal, injectable [facility] Work Phone: GC-Osgsdwnyalsxz-D [facility] [address] Work Phone: 08-24-2019 Seasonal trivalent influenza vaccine, adjuvanted, preservative free [facility] Work Phone: JM-Jcorrutoprwsb-G [facility] [place] [address] Work Phone: 08-04-2018 influenza, injectabl e, quadrivalent, preservative free [facility] Work Phone: MB-Kqwmsmbsgvqxe-N [facility] [place] [address] Work Phone: 07-19-2018 influenza, high dose seasonal, preservative-free [facility] Work Phone: FE-Optjevywjhwjh-Z [facility] [place] [address] Work Phone: 08-21-2017 influenza, high dose seasonal, preservative-free [facility] Work Phone: AU-Pwbtihbyrqlml-C [facility] [address] Work Phone: 08-12-2017 pneumococcal polysaccharide vaccine, 23 valent [facility] Work Phone: VL-Lupnmqflaahnb-D [facility] [address] Work Phone: 08-12-2017 zoster vaccine recombinant [facility] Work Phone: HJ-Khahxyosjgzxn-G [facility] [place] [address] Work Phone: 08-21-2016 influenza, high dose seasonal, preservative-free [facility] Work Phone: IU-Lkuuqqcyzcshj-M [facility] [place] [address] Work Phone: 2015 influenza, seasonal, injectable, preservative free [facility] Work Phone: VV-Oazapteujqsce-E [facility] [place] [address] Work Phone: 08-04-2014 influenza, seasonal, injectable [facility] Work Phone: SQ-Slesotdzlrvvk-H [facility] [address] Work Phone: 08-04-2014 pneumococcal polysaccharide vaccine, 23 valent [facility] Work Phone: NV-Xmhajunqhjamw-F [facility] [address] Work Phone: 08-04-2014 zoster vaccine, live [facility] Work Phone: FC-Hjdbvqmwqmcya-D [facility] [address] Work Phone: Payers Date Payer Category Payer Self-pay [id number] 2013 Unknown 1959 Self-pay [id number] 1959 Unknown [id number] 1951 Unknown [id number] 2.16. [id number] 1951 Unknown [id number] 2.16. [id number] 1951 Unknown [id number] 2.16.84 [id number] 1951 Unknown [id number] 2.16.84 [id number] 1951 Unknown [id number] 2.16.84 [id number] 1951 Unknown [id number] 2.16.84 [id number] 1951 Unknown [id number] 2.16.84 [id number] 1951 Unknown [id number] 2.16.84 [id number] 1951 Unknown [id number] 2.16.84 [id number] 1951 Unknown [id number] 2.16.84 [id number] Unknown [id number] 2.16.84 [id number] Unknown [employer] [id number] Unknown [id number] 2.16.8 [id number] Social History Date Type Detail Facility Former smoker Former smoker [facility] [address] Work Phone: Start: 06-30-2013 End: 04-14-2024 Tobacco smoking status NHIS Ex-smoker [facility] End: 12-12-1992 History of tobacco use Current smoker [facility] End: 12-12-1992 History of tobacco use Cigarette Smoker [facility] Start: 06-30-2013 Tobacco use and exposure Smokeless tobacco non-user [facility] Start: 01-21-2019 Alcohol intake 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 (finding) [facility] Start: 1950 Sex Assigned At Not on file C [facility] Sex Assigned At Sex Assigned At [facility] Other Start: 1950 Sex Assigned At Male F [facility] Medical Equipment Procedure Code Equipment Code Equipment Original Text Equipment Identifier Dates Start: 09-15-2018 Comment on above: Use as instructed USE WITH INSULIN PEN S three times a day Pen Needle, Diabetic (Bd Ultra-Fine Mini Pen Needle) 31 gauge x 3/16 needle Start: 01-07-2024 Goals Date Patient Goal Desired Activity /State Clinical Notes 04-24-2022 to 04-14-2024 Note Date & Type Note Facility 04-14-2024 Procedure note [facility] 04-01-2024 Note In light pt LDL 98.8 with noted moderate carotid stenosis and DM will increase statin- he states lipitor 40 mg in past caused myalgias therefore will switch to crestor 40 mg daily, repeat Carotid US to assess stenosis and LFT with lipid level in 3 months- he voiced agreement and understanding to call office for any myalgias or concerns [facility] 04-01-2024 Note [id number]= 6 Continue eliquis anticoagulation. Continue coreg- rate is well controlled and pt remains in Sinus rhythm RTC [address] Espinoza [facility] 04-01-2024 Note Congestive heart martha lure due to NICM Heart failure is stable . NYHA Class II. Continue current treatment regimen. Dietary sodium restriction. Encouraged daily monitoring of the patient's weight. Regular aerobic exercise. Continue current medications. Refer to Cardiology. Heart failure will be reassessed in 6 months. Currently euvolemic without exacerbation [facility] 04-01-2024 Note Remains is sinus rhy thm on ECG today [facility] 04-01-2024 Note Diabetes is uncontro lled A1C 9.6 in December- states that he eats doughnuts most mornings, and that his diet could be better F/U with PCP [facility] 04-01-2024 Note [facility] CARDIOLOGY PROGR ESS NOTE HPI: Gadiel Smith is a 73 y.o. 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 Currently pt states that he feels quite well, denied palpitations, bleeding tendencies, lightheadedness/dizziness or syncope. Review of Systems Constitutional: Negative. Respiratory: Negative. Cardiovascular: Negative. Neurological: Negative. All other systems reviewed and are negative. Previous HPI per Nydia Whittington NP HPI: Patient here for 3 month follow-up [...] degree Av block 01/29/[address] Espinoza 04/2023: HPI: Patient is wanting to discuss about ablation as he s/p conversion to sinus rhythm with Amio. Echocardiogram showed improved EF which was done 02/28/2023 shows normal EF 55 to 60%, moderate dilatation of left atrium. Patient feels well denies any chest pain, shortness of breath, LE edema, EKG 01/29/23 SR. Prior HPI: Gadiel Smith is a 72 y.o. 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 Gadiel is here regarding feeling lightheaded with palpitations on 10/15 and he went to the [facility] emergency department was found to be [...] the phone on speaker phone during exam. Visit Vitals BP 120/50 (BP Location: Left arm, Patient Position: Sitting, BP Cuff Size: Adult) Pulse 71 Resp 12 Ht 1.829 m (6') Wt 69.5 kg (153 lb 3.2 oz) SpO2 96% BMI 20.78 kg/m??? Smoking Status Former BSA 1.88 m??? Allergies Allergen Reactions No Known Allergies Medications: Current Outpatient Medications [...] mouth in the morning and at bedtime. 180 tablet 3 esomeprazole (NexIUM) [address] capsule Take 40 mg by mouth before breakfast. Do not open capsule. Farxiga 10 mg TAKE 1 TABLET BY MOUTH EVERY DAY IN THE MORNING 90 tablet 3 furosemide (Lasix) 40 mg tablet Take 1 [...] mg tablet Take 500 mg by mouth at bedtime. sildenafil (Viagra) 25 mg tablet Take 25 mg by mouth if needed each day. spironolactone (Aldactone) 25 mg tablet Take 0.5 tablets (12.5 mg) by mouth in the morning. 45 tablet 3 testosterone (Androgel) 50 mg/5 gram (1 %) gel Place 50 mg on the skin in the morning. As directed [DISCONTINUED] atorvastatin (Lipitor) 20 mg tablet Take 20 mg by mouth in the morning. No current facility-administered medications on file prior to visit. Physical Exam: Constitutional: Appearance: Normal appearance. Without apparent distress HENT: Head: Normocephalic and atraumatic. Nose: Nose normal. Mouth/Throat: Mouth: Mucous membranes are moist. Eyes: E (more content not included)... [facility] 10-29-2023 Evaluation note Encounter Date Diagnosis Assessment [...] improved w present med increase in dose. [facility] Other 11-03-2023 Evaluation note* Encounter Date Diagnosis Assessment Notes Treatment Notes Treatment Clinical Notes Sep, Anxiety (ICD-10 - F41.9) [facility] Other 10-31-2023 Evaluation note* Encounter Date Diagnosis Assessment Notes Treatment Notes Treatment Clinical Notes Aug, Anxiety (ICD-10 - F41.9) [facility] Other 10-09-2023 Evaluation note* Encounter Date Diagnosis [...] from 25mg to 50mg for better results. [facility] Other 09-19-2023 NoteUT Electrophysiology Consult Note [facility] Reason for Consultation: Atrial fibrillation, s/p PVI/CTI [...] degree Av block 01/29/[address] Espinoza 04/2023: HPI: Patient is wanting to discuss about ablation as he s/p conversion to sinus rhythm with Amio. Echocardiogram showed improved EF which was done 02/28/2023 shows normal EF 55 to 60%, moderate dilatation of left atrium. Patient feels well denies any chest pain, shortness of breath, LE edema, EKG 01/29/23 SR. Prior HPI: Gadiel Smith is a 72 y.o. 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 Gadiel is here regarding feeling lightheaded with palpitations on 10/15 and he went to the [facility] emergency department was found to be [...] tablet 3 dapagliflozin (Farx (more content not included)...[facility]09-19-2023 NotePatient here for 2 mo follow up persistent afib and systolic heart failure. Doing great. Denies chest pain, SOB, palpitations, and bleeding on Eliquis. Review of Systems All other systems reviewed and are negative.[facility] 06-05-2023 NotePatient here for follow up ablation. Doing very well. Denies chest pain, SOB, palpitations, and bleeding on Eliquis. Review of Systems All other systems reviewed and are negative.[facility] 06-05-2023 NoteUT Electrophysiology Consult Note [facility] Reason for Consultation: Atrial fibrillation, s/p [...] degree Av block 01/29/[address] Espinoza 04/2023: HPI: Patient is wanting to discuss about ablation as he s/p conversion to sinus rhythm with Amio. Echocardiogram showed improved EF which was done 02/28/2023 shows normal EF 55 to 60%, moderate dilatation of left atrium. Patient feels well denies any chest pain, shortness of breath, LE edema, EKG 01/29/23 SR. Prior HPI: Gadiel Smith is a 72 y.o. 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 Gadiel is here regarding feeling lightheaded with palpitations on 10/15 and he went to the [facility] emergency department was found to be [...] Lantus Solostar U-100 Insul (more content not included)...[facility]06-23-2023 NoteProblem: Safety - Adult Goal: Free from [...] The clinical goals for the shift include comfortSelect [facility]ty [facility] - [facility]06-22-2023 NoteATRIAL FIBRILLATION ABLATION PROCEDURE NOTE DATE OF PROCEDURE: 05/02/2023 PERFORMING PHYSICIAN: Dr. Eliceo Espinoza GARMENT TURNER: Dr. Louisa Bowers CONSENT: Patient NAME OF [...] insulin, vasovagal syncope. He was diagnosed at [place] emergency department with Chris andrade. He was [...] Coumadin ridge. Esophagus was mapped using the [employer] 3D mapping software and noted to be [...] the IVC aspect. Foll (more content not included)...[facility]06-22-2023 Note Patient: Gadiel Smith Procedure Summary Date: 05/02/23 Room / Location: [facility] / [facility] (Cath) Anesthesia Start: 1356 Anesthesia Stop: 1710 Procedure: Ablation atrial fibrillation Diagnosis: Persistent atrial fibrillation (CMS/HCC) (Persistent atrial fibrillation (CMS/HCC) [I48.19]) Providers: Eliceo Espinoza MD Responsible Provider: Rony Pretty MD Anesthesia Type: general ASA Status: 4 Anesthesia Type: general Vitals Value Taken Time BP 164/68 05/02/230 Temp 36.4 ???C (97.5 ???F) 05/02/230 Pulse 58 05/02/23 1710 Resp 14 05/02/23 1710 SpO2 99 % 05/02/231709 Anesthesia Post Evaluation [...] PACU per anesthesia protocol. No notable events documented.[facility] Note Patient: Gadiel Smith Procedure Summary Date: 05/02/23 Room / Location: [facility] EP / [facility] (Cath) Anesthesia Start: 1356 Anesthesia Stop: Procedure: Ablation atrial fibrillation Diagnosis: Persistent atrial fibrillation (CMS/HCC) (Persistent atrial fibrillation (CMS/HCC) [I48.19]) Providers: Eliceo Espinoza MD Responsible Provider: Rony Pretty MD Anesthesia Type: general ASA Status: 4 Anesthesia Post Transport Note Transport to: PACU O2 Route: room air Patient Monitor: transport monitor Transport monitor type: Art Line Transport: uneventful Patient condition is: stable Comments: ECG, [facility]ioReg[facility]23 NoteArterial Line: Date/Time: 05/02/2023 1:55 PM An [...] 1 % SubQ, 2 mL Staffing Performed: resident/SSAS DEVELOPER/CAA Anesthesiologist: Rony Pretty MD Resident/SSAS DEVELOPER: Wallace Atkinson MDSelect [facility] Note Airway Date/Time: 05/02/2023 2:19 PM Urgency: elective Airway not difficult General Information and Staff Patient location during procedure: [place] Anesthesiologist: Rony Pretty MD Resident/SSAS DEVELOPER/CAA: Dean Madison DO Performed: resident/SSAS DEVELOPER/CAA Indications and Patient Condition Indications for airway [...] approach: 1 Number of other approaches attempted: 0UnReg[facility] 05-02-2023 NotePatient: Gadiel Smith Procedure Information Date/Time: 05/02/23 1230 Procedure: Ablation atrial fibrillation Location: [facility] / [facility] (Cath) Providers: Eliceo Espinoza MD Relevant Problems Cardio (+) Acute on chronic systolic congestive heart failure (CMS/HCC) (+) Atrial flutter (CMS/HCC) (+) Paroxysmal atrial fibrillation (CMS/HCC) (+) Persistent atrial fibrillation (CMS/HCC) Endo (+) 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+) Diabetes mellitus type II, non insulin dependent ([facility]/HCC) Neuro/Psych (+) CVA (cerebral vascular accident) ([facility]) Clinical information reviewed: Tobacco Allergies Meds Problems [...] who. Plan discussed with resident. Additional Equipment RequestsSelect [facility]-2023 Note MD Electrophysiology Consult Note [facility] Date of Telehealth Visit: 04/30/23 The patient was notified that using 3rd green party telecommunication application (e.g., [employer]) is not HIPPA compliant and may carry some privacy risks. Yes The visit was conducted [id number] with the use of audio and video [...] edema, EKG 01/29/23 SR. Prior HPI: Gadiel Smith is a 72 y.o. 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 Gadiel is here regarding feeling lightheaded with palpitations on 10/15 and he went to the [facility] emergency department was found to be [...] tablet 3 Lantus Solost (more content not included)...[facility] 04-26-2023 NoteProcedure: Multidetector CT thoracic Angiogram performed [...] low as reasonably achievable. Electronically signed: Eulalio Georges.[facility] on above:Order Comment: Please schedule prior to April [id number] Chief complaint Narrative - Reported* An interactive audio and video telecommunication system which permits real time communications between the patient (at the originating site) and provider (at the distant site) was utilized to providethis telehealth service. * Verbal consent was requested and obtained from GADIEL SMITH on this date, 10/10/2022 11:15 AM , for a telehealth visit. * Patient presents for a follow up visit. LO-Spavbdbjufcef-YQX [address] Work Phone: [phone]) 918-364308-22-2022 Miscellaneous Notes* Telephone Encounter - Janee Butcher - 07/02/2022 2:37 PM EDT Received Thyroid US report from [facility]. Indexed into chart. documented in this encounterA[facility]06-[facility]22 Chief complaint Narrative - Reported* An interactive audio and video telecommunication system which permits real time communications between the patient (at the originating site) and provider (at the distant site) was utilized to providethis telehealth service. * Verbal consent was requested and obtained from GADIEL SMITH on this date, 04/24/2022 09:00 AM , for a telehealth visit. * Patient has a follow-up for hypothyroidism, pituitary, and diabetes today. WO-Skenxryt-LbjytvhWest [facility] [address] Work Phone: Evaluation noteNo [employer] Other Evaluation note* Diagnosis Onset Date Resolution Status Bronchitis noneactive Constipation acute Incontinence of feces with fecal urgency acute [facility] Work Phone: History and physical note Author Merly Paul [facility] April 14, 2024 11:26am Note Date/Time April 14, 2024 11:[address] [facility] [address] [place] [address] Gastroenterology H&P Signed Patient: Gadiel Smith MR#: [id number] : 1950 Acct:[id number] Age/Sex: 73 / M Adm Date: 4 Loc: Room: Type: [facility] Attending Dr: Merly Paul DO Copies to: DO Joseluis Chery MD~ Date of Service: 04/14/2024 HISTORY & PHYSICAL: Patient's history with special attention to the cardiovascular, pulmonary systems and the current problem was reviewed with the patient immediately prior to the procedure. Present medications and doses reviewed in the EMR. Allergies and pertinent laboratory tests were also reviewedat this time in the EMR. The physical examination, as below, was then performed. Indication, assessment and HPI: 83-year-old male who presents for colonoscopy for constipation and fecal incontinence. Last colonoscopy was in [address] Mcqueen. Family history of GI malignancy? No PHYSICAL EXAMINATION General appearance: cooperative, NAD Skin: No jaundice, no rash or lesions Head: NCAT Eyes: Anicteric Neck: Supple Lungs: Normal respiratory effort, no use of accessory muscles Abdomen: Soft, nondistended Neuro: No focal deficits, Ox3. REVIEW OF SYSTEMS Constitutional: Denies malaise, fevers Cardiovascular: Denies chest pain, palpitations Respiratory: Denies shortness of breath, wheezing Gastrointestinal: As per HPI Genitourinary: Denies dysuria, polyuria Musculoskeletal: Denies joint swelling, joint stiffness Neurological: Denies confusion, numbness, tingling Endocrine: Denies fatigue Written informed consent obtained from the patient. Risks (including but not limited to perforation, infection, bloating, bleeding, need for emergent surgeryand loss of life), benefits and alternatives explained and questions answered. The patient verbalized understanding. Based on history patient is an appropriate candidate for the procedure. Merly Paul DO Documented By: Merly Paul DO 04/14/24 1125 Signed By: <Electronically signed by Merly Paul DO> 04/14/24 1126 [facility] Work Phone: Hishoym general Narrative - Reported* Type Description Date Medical History Diabetes mellitus Medical History Hyperlipemia Medical History Acid reflux Medical History Hiatal hernia Medical History Pituitary tumor Surgical History knee surgery Surgical History shoulder surgery Surgical History thyroid nodule removed Hospitalization History hematoma related to fall 2011 Hospitalization History TIA 03/2020 Hospitalization History DEHYDRATION 09/2020 [facility] Other History of Present illness Narrative* This [...] * -Most recent US on 12/2019 in [place], records not available * -Due for US [...] severe hypoglycemia episode to 30s requiring third green party assistance. Patient confused during the event. 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 XA-Pdsasceh-Ovcviox [address] Work Phone: History of Present [...] * -Most recent US on 12/2019 in [place], records not available * -Due for US [...] severe hypoglycemia episode to 30s requiring third green party assistance. Patient confused during the event. 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 VQ-Mhvssemfcwbau-IFD [address] Work Phone: Summary Purpose Family History No Family History Records FoundUnknown Family Member Name Dates Details : Mother, [...] of diabetes m ellitus: Mother(V18.0, Z83.3) Status:Active Relationship Condition Age at Onset Recorded Date/T abhijit brother Unknown Malignant neoplasm of pancreas Unknown father Unknown Malignant neoplasm of urinary bladder Unk nown Not Specified Unknown Diabetes mellitus Unknown Hypertension Unknown Advance Directives No Advanced Directives Records Found Advance Directive Response Recorded Date/ Time Advance Directives No October 17, 2021 8:22am Chief Complaint and Reason for Visit Chief Complaint Cough bowel urgency- more frequent in the last month. diarrhea/constipation diarrhea/constipation Reason for Visit Bronchitis Constipation Incontinence of feces with fecal urgency Additional Source Comments (unrecognized sect ion and content) No Status Records FoundNo Status Records FoundNo Status Records FoundNo Status Records FoundNo Status Records FoundNo Status Records FoundNo Status Records FoundNo Status Records Found INFORMATION SOURCE (unrecogn ized section and content) DATE CREATED AUTHOR 05/07/2018 [facility] DATE CREATED AUTHOR AUTHOR'S ORGANIZ ATION 07/06/2022 [facility] DATE CREATED AUTHOR AUTHOR'S ORGANIZ ATION 10/11/2022 [facility] DATE CREATED AUTHOR AUTHOR'S ORGANIZ ATION 10/11/2022 [facility] DATE CREATED AUTHOR AUTHOR'S ORGANIZ ATION 03/04/2023 [facility] pital DATE CREATED AUTHOR AUTHOR'S ORGANIZ ATION 03/24/2024 [facility] dical [facility] DATE CREATED AUTHOR AUTHOR'S ORGANIZ ATION 04/03/2024 [facility] DATE CREATED AUTHOR AUTHOR'S ORGANIZ ATION 04/15/2024 [facility] Source Comments (unrecognize d section and content) In the event this informatio n is protected by the Federal Confidentiality of Alcohol and Drug Abuse Patient Records regulations: The Federal rules restrict any use of the information to criminally investigate or prosecute any alcohol or drug abuse patient.[facility] Reason for Visit (unrecogniz ed section and content) Reason Comments Received Outside Medical Records Receive d Thyroid US report from [facility]. Indexed into chart. 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 Relationship Specialty Start Date End Date Cabrera Dupont MD PCP - General Family Practice 01/21/19 Team Status: Active Member Role Status Dates Joseluis Quiroz MD Primary Care Provider Active Team Status: Inactive Member Role Status Dates Joseluis Quiroz MD Primary Care Provider Active Start: March 06, 2024 End: March 06, 2024 AZIZA OlearyC Attending Provider Active S tart: March 06, 2024 End: March 06, 2024 Team Status: Inactive Member Role Status Dates Joseluis Quiroz MD Primary Care Provider Active Start: March 18, 2024 End: March 18, 2024 Merly Paul , DO Attending Provider Active St art: March 18, 2024 End: March 18, 2024 Team Status: Inactive Member Role Status Dates Joseluis Quiroz MD Primary Care Provider Active Start: April 14, 2024 End: April 14, 2024 Merly Norma Paul , DO Attending Provider Active St art: April 14, 2024 End: April 14, 2024 Team Status: Active Member Role Status Dates Joseluis Quiroz MD Primary Care Provider Active Start: April 14, 2024 Merly Paul , DO Attending Provider, Other Provider Active Start: April 14, 2024 FOR RECORDS PERTAINING TO PATIENTS WHO ARE [...] BE BASED ON THE PRIMARY CLINICAL RECORDS. [employer] [facility]. provides no warranty or guarantee of the accuracy or completeness of information in this document.
[2024-04-16 14:46] LABS: Alanine Aminotransferase 22 U/L (16-63); Albumin Level 3.7 g/dL (3.4-5.0); Alkaline Phosphatase 68 U/L (46-116); Aspartate Amino Transferase 13 U/L (15-37); Bilirubin Direct 0.2 mg/dL (0.0-0.2); Bilirubin Total 0.9 mg/dL (0.2-1.0); Chol HDL Ratio 2.4; Cholesterol 124 mg/dL (<=200); Globulin 3.6 g/dL; HDL Cholesterol 52 mg/dL (40-60); LDL Cholesterol Calculated 56.4 mg/dL; Total Protein 7.3 g/dL (6.4-8.2); Triglycerides 78 mg/dL (<=150); VLDL CHOLESTEROL 15.6 mg/dL
== END 2024-04-16 09:22 | disposition home or self-care (01) ==
LOC: US 09:21
PROVIDERS: PCP Family Medicine; Visit Provider Nurse Practitioner
DX: E78.2 Mixed hyperlipidemia (principal); I65.23 Occlusion and stenosis of bilateral carotid arteries
CPT/HCPCS: 36415; 80061; 80076; 93880

== ENCOUNTER 2024-06-04 12:05 | Outpatient (OUT) | payer MEDICARE, SELFPAY ==
--- OUTSIDE RECORDS SUMMARY | 2024-06-04 12:10 | XMS_ITS | CCD ---
Author Organization 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 Cabrera Dupont Primary Care Unavailab le Hatipoglu, Dr. Mandie Piper Attending Syed Hernandezoglu, Dr. Mandie Piper Referring Unavai lable Self, Referral Referring Unavailable Hatipoglu, Dr. Mandie Piper Attending Syed Dupont, Dr. Cabrera Gaspar Primary Care Unavailab le QUIROZ, DR JOSELUIS Austin Primary Care Unavailable YEARTYTONY Attending Unavailable YEARTONY QUIROS Admitting Unavailable MISC, DR LOZADA Attending Unavailable WEST, DR GEORGIE Erwin Consulting Unavailable QUIROZ, DR JOSELUIS Austin Primary Care Unavailable MISC, DR LOZADA Admitting Unavailable MISC, DR LOZADA Consulting Unavailable ELICEO ESPINOZA Admitting Unavailable QUIROZ, DR JOSELUIS Austin Primary Care Unavailable ELICEO ESPINOZA Attending Unavailable SHAKIRAELICEO Consulting Unavailable MAUREENJANEE Consulting Unavailable MAUREEN, JANEE Admitting Unavailable MAUREENJANEE Waggoner Attending Unavailable QUIROZ, DR JOSELUIS Austin Primary [...] QUIROZ, DR JOSELUIS Austin Primary Care Unavailable ALEJANDRO Pierre, DR ANGEL Attending Unavailable ALEJANDRO ., DR ANGEL Consulting Unavailable RY CLINTON Consulting Unavailable Joseluis Quiroz Unavailable RAPHAEL SPRINGER Attending Unavailable MD Joseluis Quiroz Primary Care Provider [phone] DO Merly Paul Attending Provider [phone] ELICEO ESPINOZA Referring Unavailable ELICEO ESPINOZA Referring Unavailable JANEE REDDY Attending Unavailable JESÚS WHITTINGTON Attending Unavailable JESÚS WHITTINGTON Attending Unavailable ELICEO ESPINOZA Attending Unavailable ELICEO ESPINOZA Attending Unavailable ELICEO ESPINOZA Admitting Unavailable Joseluis Quiroz Primary Care Unavailable Merly Paul Admitting Unavailable Merly Paul Attending Unavailable Allergies Allergy Classification Reported Allergen(s) Allergy Type Date of Onset Reaction(s) Facility (2 sources) Lisinopril; Translations: [LISINOPRIL] Drug Allergy 04-28-2015 Other: See Comments [facility] Work Phone: Medications Current Medications Medication [...] other day for 0 *Pick strength-form from [employer] for eRX* Jul, Active Ocuvite TABS WYATT [...] Quantity: 90 Refills: 3 Ordered: 24-Apr-2022 Mandie Salamanca MD Active Comment on above: Take 1 [...] release oral tablet (20 sources) Aminoketone Start: 4 take 150 mg by mouth once daily Bupropion Hcl Active 150 MG PO Daily March 06, 2024 12:00am Start: 07-23-2022 take 1 tablet by woody th every twenty-four hours buPROPion HCl ER (XL) 150 MG 1 tablet in the morning Oral Once a day *Pick strength-form from [employer] for eRX* Jul, Active Start: 07-23-2022 take 1 tablet by woody th twice daily buPROPion HCl ER (XL) 150MG buPROPion HCl ER (XL) 150MG, 1 (one) Tablet Tablet two times daily # 180, 07/23/2022, Ref. x1. Active Oral two times daily for 0 *Pick strength-form from [employer] for eRX* Jul, Active Start: 04-13-2020 take [...] other day for 0 *Pick strength-form from [employer] for eRX* Jul, Active Comment on above: [...] capsule,delayed release(DR/EC) Active 40 MG PO Daily 90 March 16, 2024 8:39am Esomeprazole Mag nesium [...] 10, 2024 3:59pm take 1 tablet by owody th every twenty-four hours Lisinopril 5 MG [...] as directed for 30 *Pick strength-form from [employer] for eRX* Jul, Active take 1 tablet by woody th once daily as needed Sildenafil Citrate 50 MG 1 tablet as needed Orally daily as directed for 30 days *Pick strength-form from [employer] for eRX* Active spironolactone 25 mg oral [...] Entry Transdermal daily for 0 *Reorder from [employer] for eRx and Interaction Alerts* Jul, Active [...] without complications; Translations: [Diabetes mellitus] Onset: 2 03-06-2024 Chronic Disorders of lipid metabolism (20 sources) [...] sources) Long-term current use of insulin; Translations: [medical terminologist (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 insulin] Episodic Other and unspecified benign neoplasm (16 sources) Pituitary macroadenoma; 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] Episodic Other circulatory disease (2 sources) Personal history of other diseases of the circulatory system; Translations: [Personal history of other diseases of the circulatory system] Onset: 3 Episodic Other endocrine disorders (17 sources) Male [...] [Constipation, unspecified] 03-18-2024 Episodic Other gastrointestinal disorders (2 sources) Constipation, unspecified; Translations: [Constipation, unspecified] Onset: 4 03-18-2024 Episodic Other gastrointestinal disorders (1 source) [...] cardiovascular function study] Onset: 5 04-28-2015 Episodic Residual codes; unclassified (2 sources) Other specified postprocedural states; Translations: [Other specified postprocedural states] Onset: 3 Episodic 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; [...] 11-13-2022 Episodic Other aftercare (1 source) Other prison (current) drug therapy; Translations: [OTH PRIEST CURRENT DRUG THERAPY] Onset: 11-13-2022 Episodic Other aftercare (1 source) medical terminologist (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 oral hypoglycemic drugs; Translations: [[facility] USE ORAL HYPOGLYCEMIC DX] Onset: 11-13-2022 Episodic Other aftercare (1 source) [facility] (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 insulin; Translations: [PRIEST CURRENT USE OF INSULIN] Onset: 11-13-2022 Episodic Other aftercare (1 source) [facility] (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 aspirin; Translations: [[facility] CURRENT USE OF ASPIRIN] Onset: 10-17-2022 Episodic [...] Onset: 11-13-2022 Episodic Other lower respiratory disease (3 sources) [...] Test Name Value Interpretation Reference Range Facility 36on 04-21-2024 36 Regarding lab result s from 04/16/2024: YUN Gustafson MA Let him know liver function is perfect and cholesterol levels also are great- continue all meds and see you next time. Good job!! Spoke with patient's and made her aware. Normal [facility] Capillary blood glucose corey urement by glucometer (mass/volume)Ordered By: Merly Paul on 04-14-2024 Glucose [Mass/Vol] 73 mg/dL Normal [facility] Comment on above: Random Glucose Refer ence Range is dependent on time and content of last meal. Glucose of more than 200 mg/dL in a nonstressed, ambulatory subject supports the diagnosis of Diabetes Mellitus. Result Comment: [place] Glucose Reference Range is dependent on time and content of last meal. Glucose of more than 200 mg/dL in a nonstressed, ambulatory subject supports the diagnosis of Diabetes Mellitus. PERFORMED BY: [facility] [address] [place] [address] PATHOLOGIST SUPPORT SERVICES SPECIALIST ANJANA SEWELL M.D. Performed By: #### G LULS #### Point of Care testing , [facility] 04-14-2024 L Specimen: [id number] Received: 04/14/24 Status: MAYO Shi Num: [id number] Spec Type: Surgical Subm Dr: Merly Paul DO Tissues: A Colon Biopsy (CECAL POLYP) B Colon Biopsy (ASC POLYPS) C Colon Biopsy (TRANSV POLYP) D Colon Biopsy (DESC POLYP) Procedures: HE/8, Gross/Micro L4/4 Age/ Patient Sex Location Account Attending Physician Gadiel Smith 73/M [id number] Merly Paul DO SPEC NUM: [id number] RECD: 04/14/24 STATUS: MAYO SHI NUM: [id number] DIONICIO: 04/14/24- SUBM DR: Merly Paul DO ENTERED: 04/14/[address] [facility] [address]: Joseluis Quiroz MD SPEC TYPE: Surgical DEPT: S ORDERED: , Gross/Micro L4/4 ORDERED: , Gross/Micro L4/4 Pathological Diagnosis A, cecal polyp biopsy: -Multiple fragments of tubular adenoma without high-grade features B, ascending colon polyps biopsy: -Tubular adenoma in at least 1 fragment C, transverse colon polyp biopsy removal: -Multiple fragments of tubular adenomatous polyp without high-grade dysplasia D, descending colon polyp biopsy: -Tubular adenoma Clinical Information Diarrhea, constipation ---- Specimen: [id number] Received: 04/14/24 Status: MAYO Yuridia Num: [id number] Spec Type: Surgical Subm Dr: Merly Paul DO Tissues: A Colon Biopsy (CECAL POLYP) B Colon Biopsy (ASC POLYPS) C Colon Biopsy (TRANSV POLYP) D Colon Biopsy (DESC POLYP) Procedures: , Gross/Micro L4/4 ---- Patient: Gadiel Smith [id number] (Continued) ---- Specimen: [id number] Received: 04/14/24 (Continued) Signed (signature on file) Suki Jackson MD 04/16/24 1330 ---- Specimen: [id number] Received: 04/14/24 Status: MAYO Chatterjeeumberto Num: [id number] Spec Type: Surgical Subm Dr: Merly Paul DO Tissues: A Colon Biopsy (CECAL POLYP) B Colon Biopsy (ASC POLYPS) C Colon Biopsy (TRANSV POLYP) D Colon Biopsy (DESC POLYP) Procedures: LILI/Claribel, Gross/Micro L4/4 ---- Patient: Gadiel Smith [id number] (Continued) ---- Specimen: [id number] Received: 04/14/24 (Continued) Gross Description Received are 4 formalin filled containers each labeled with the patient's name, date of and specific specimen site. A. Further labeled cecal polyp are multiple espinosa mucosal tissue fragments measuring in aggregate 1.2 x 0.3 x 0.1 cm, entirely submitted in A1. B. Further labeled ascending polyps are 4 espinosa polypoid tissue fragments ranging from 0.4 x 0.3 x 0.1 cm to 0.2 x 0.2 x 0.1 cm, entirely submitted in B1. C. Further labeled transverse colon are multiple espinosa mucosal tissue fragments admixed with mucus measuring in aggregate 1.7 x 0.5 x 0.1 cm, entirely submitted in C1. D. Further labeled descending colon is a 0.5 x 0.3 x 0.2 cm espinosa mucosal tissue fragment, entirely submitted in D1. TW [facility] Codes 21042P1 ---- ---- Specimen: [id number] Received: 04/14/24 Status: MAYO Shi Num: [id number] Spec Type: Surgical Subm Dr: Merly Paul DO Tissues: A Colon Biopsy (CECAL POLYP) B Colon Biopsy (ASC POLYPS) C Colon Biopsy (TRANSV POLYP) D Colon Biopsy (DESC POLYP) Procedures: HE/Claribel, Gross/Micro L4/4 ---- Patient: Gadiel Smith [id number] (Continued) ---- Signed (signature on file) Suki Jackson MD 04/16/24 1330 Normal [facility] Office Visiton 04-01-2024 Follow-up visit [id number] Gadiel Smith 1950 M Date Provider Department Center 04/01/2024 JANEE JAIME Family History Problem Relation Age of Onset [...] Paternal Grandmother Paternal Grandfather Other Level of Service:28352 MA OFFICE/OUTPATIENT ESTABLISHED MOD MDM 30 MIN Reason for Visit and Comments: Follow-up [503500] - [address] [facility] Office Visiton 07-30-2023 Follow-up visit [id number] Gadiel Smith 1950 M Date Provider Department [...] Paternal Grandmother Paternal Grandfather Other Level of Service:87773 MA OFFICE/OUTPATIENT ESTABLISHED MOD MDM 30-39 MIN Normal [facility] Follow-Upon 06-05-2023 Follow-Up [id number] Gadiel Smith 1950 M Date Provider Department Center 06/05/2023 1596-JESÚS WHITTINGTON [facility] Family History Problem Relation [...] Paternal Grandmother Paternal Grandfather Other Level of Service:09442 MA OFFICE/OUTPATIENT ESTABLISHED MOD MDM 30-39 MIN Normal [facility] Telephoneon 05-30-2023 Telephone [id number] Gadiel Smith 1950 M Date Provider Department Center 05/30/2023 Farideh-MARLEY MORALES [facility] VASC LAB UT HeartVAS Family History [...] 3 week post ablation f/u [Other] Normal [facility] Telephone [id number] Gadiel Smith 1950 M Date Provider Department Center 05/30/20[facility] Family History Problem Relation Age of [...] Grandfather Paternal Grandmother Paternal Grandfather Other Normal [facility] Telephoneon 05-10-2023 Telephone [id number] Barber Smitheliseo Austin 1950 M Date Provider Department Center 05/10/2023 MARLEY GRAY [facility] VAS LAB [facility] HeartVAS Family History Problem Relation Age of [...] Comments: week f/u post ablation [Other] Normal [facility] BASIC METABOLIC PANELon 04-12 Anion gap [Moles/Vol] 9 mmol/L Normal 05-30 [facility] Comment on above: Performed By: #### L [id number] #### [facility] (BEAKER) [address] [place] [address] Calcium [Mass/Vol] 8.9 mg/dL Normal 8.6-10.3 [facility] Comment on above: Performed By: #### L [id number] #### [facility] ([facility]) [address] [place] [address] Chloride [Moles/Vol] 104 mmol/L Normal 98-107 [facility] Comment on above: Performed By: #### L [id number] #### [facility] ([facility]) [address] [place] [address] CO2 [Moles/Vol] 28 mmol/L Normal 21-31 [facility] Comment on above: Performed By: #### L [id number] #### [facility] ([facility]) [address] [place] [address] Creatinine [Mass/Vol] 0.79 mg/dL Normal 0.70-1.30 [facility] Comment on above: Performed By: #### L [id number] #### [facility] ([facility]) [address] [place] [address] GLOMERULAR FILTRATION RATE ML/MIN/1.73 SQ M.PREDICTED 95.0 mL/min/1.73m*2 Normal >60.0 [facility] Comment on above: Result Comment: The [facility]???s estimated glomerular filtration rate (eGFR) will no [...] individuals. Performed By: #### L [id number] #### [facility] ([facility]) [address] [place] [address] Glucose [Mass/Vol] 176 mg/dL High 70-100 [facility] Comment on above: Performed By: #### L [id number] #### [facility] ([facility]) [address] [place] [address] Potassium [Moles/Vol] 3.6 mmol/L Normal 3.5-5.1 [facility] Comment on above: Performed By: #### L [id number] #### [facility] (BE[facility]) [address] [place] [address] Sodium [Moles/Vol] 137 mmol/L Normal 136-145 [facility] Comment on above: Performed By: #### L [id number] #### [facility] [address] [place] [address] Urea nitrogen [Mass/Vol] 11 mg/dL Normal 7-25 [facility] Comment on above: Performed By: #### L [id number] #### [facility] [address] [place] [address] UREA NITROGEN/CREATININE (MASS RATIO) IN SER/PLAS 13.9 Normal [facility] Comment on above: Performed By: #### L [id number] #### [facility] [address] [place] [address] CBCon 05-03-2023 Erythrocyte distribution width (RBC) [Ratio] 12.8 % Normal 11.5-15.0 [facility] Comment on above: Performed By: #### L [id number] #### [facility] [address] [place] [address] ERYTHROCYTE MEAN CORPUSCULAR HEMOGLOBIN CONCENTRATION (G/DL) BY AUTOMATED 32.1 g/dL Normal 32.0-35.0 [facility] Comment on above: Performed By: #### L [id number] #### [facility] [address] [place] [address] Hematocrit (Bld) [Volume fraction] 39.3 % Normal 39.0-55.0 [facility] Comment on above: Performed By: #### L [id number] #### [facility] (BEAKER) [address] [place] [address] Hemoglobin (Bld) [Mass/Vol] 12.6 g/dL Low 13.0-17.0 [facility] Comment on above: Performed By: #### L [id number] #### [facility] ([facility]) [address] [place] [address] MCH (RBC) [Entitic mass] 29.9 pg Normal 27.0-33.0 [facility] Comment on above: Performed By: #### L [id number] #### [facility] ([facility]) [address] [place] [address] MCV (RBC) [Entitic vol] 93.3 fL Normal 82.0-98.0 [facility] Comment on above: Performed By: #### L [id number] #### [facility] ([facility]) [address] [place] [address] PLATELETS (10*3/UL) IN BLOOD AUTOMATED COUNT 179 10*3/uL Normal 150-400 [facility] Comment on above: Performed By: #### L [id number] #### [facility] ([facility]) [address] [place] [address] RBC (Bld) [#/Vol] 4.21 10*6/uL Normal 4.20-5.70 [facility] Comment on above: Performed By: #### L [id number] #### [facility] ([facility]) [address] [place] [address] WBC (Bld) [#/Vol] 8.32 10*3/uL Normal 4.00-10.60 [facility] Comment on above: Performed By: #### L [id number] #### [facility] ([facility]) [address] [place] [address] Saroj 05-03-2023 DS -- Attestation signed by Eliceo [...] sent to [facility]/pharmacy #[id number] [place] [address] famotidine 20 mg tablet sucralfate 1 gram [...] he will (more content not included)... Normal [facility] POCT GLUCOSE METER UNSOLICIT ED RESULTSon 05-03-2023 Glucose [Mass/Vol] 289 mg/dL High 70-105 [facility] Comment on above: Order Comment: Waive d Testing in the ED is performed under the ED CLIA certificate #[id number]. Result Comment: libia dou2 Performed By: #### L [id number] ####[facility] (BEAKER)[address] [place] [address] Glucose [Mass/Vol] 176 mg/dL High 70-105 [facility] Comment on above: Order Comment: Waive d Testing in the ED is performed under the ED CLIA certificate #[id number]. Result Comment: libia dou2 Performed By: #### L [id number] #### [facility] ([facility]) [address] [place] [address] HPon 05-02-2023 -- Attestation signed by Eliceo [...] there are no changes to the H&P. [facility] NURSNOTEon 05-02-2023 NURSNOTE went home for t he evening. Will call with room number when patient gets a bed. [facility] POCT GLUCOSE METER UNSOLICIT ED RESULTSon 05-02-2023 Glucose [Mass/Vol] 125 mg/dL High 70-105 [facility] Comment on above: Order Comment: Waive d Testing in the ED is performed under the ED CLIA certificate #[id number]. Result Comment: ab [email or web address] Performed By: #### L [id number] ####[facility] ([employer])[address] [facility] [place] [address] Glucose [Mass/Vol] 113 mg/dL High 70-105 [facility] Comment on above: Order Comment: Waive d Testing in the ED is performed under the ED CLIA certificate #[id number]. Result Comment: lwag enh Performed By: #### L [id number] #### [facility] ([employer]) [address] [place] [address] Glucose [Mass/Vol] 108 mg/dL High 70-105 [facility] Comment on above: Order Comment: Waive d Testing in the ED is performed under the ED CLIA certificate #[id number]. Result Comment: mwer nert Performed By: #### L [id number] #### [facility] ([employer]) [address] [place] [address] Glucose [Mass/Vol] 198 mg/dL High 70-105 [facility] Comment on above: Order Comment: Waive d Testing in the ED is performed under the ED CLIA certificate #[id number]. Result Comment: aepp ink Performed By: #### Norma [id number] #### [facility] ([facility]) [address] [facility] [place] [address] PROTIME-INRon 05-02-2023 INR IN PPP BY COAGULATION ASSAY 0.98 Normal 0.90-1.10 [facility] Comment on above: Result Comment: ACCC P [...] RANGE. CHEST 1995;108:231S-246S. Performed By: #### L [id number] #### [facility] (BEAKER) [address] [place] [address] PROTHROMBIN TIME (PT) IN PPP BY COAGULATION ASSAY 12.9 Seconds Normal 12.3-14.8 [facility] Comment on above: Performed By: #### L [id number] #### [facility] (BEAKER) [address] [place] [address] HPon 04-30-2023 [facility] Date of Telehealth Visit: 04/30/23 The patient was notified that using 3rd constitution party telecommunication application (e.g., Satarii) is not HIPPA compliant and may carry some privacy risks. Yes The visit was conducted [id number] with the use of audio and video [...] on 10/15 and he went to the [facility] emergency department was found to be in [...] Lantus Solost (more content not included)... Normal [facility] Telemedicineon 04-30-2023 Telemedicine [id number] Gadiel Smith [place] 1950 M Date Provider Department Center 04/30/2023 ELICEO FORTE [facility] Family History Problem Relation Age [...] Paternal Grandmother Paternal Grandfather Other Level of Service:98013 MA PHYS/QHP TELEPHONE EVALUATION 11-20 MIN Normal [facility] [id number] 04-26-2023 [id number] Nothing to eat or drink after midnight Hold MVI, Herbal Supplements, NSAIDS x 7 days Hold the prescription meds we spoke about: ELIQUIS 48 HRS PRIOR TO PROCEDURE Take the meds we spoke about w/a sip of water DOS: LANTUS, SYNTHROID, AMIODARONE, COREG, WELBUTRIN, NEXIUM Normal [facility] B-TYPE NATRIURETIC PEPTIDEon 04-26-2023 Natriuretic peptide B (Bld) [Mass/Vol] 87 pg/mL Normal 0-100 [facility] Comment on above: Performed By: #### L [id number] #### [facility] ([facility]ER) [address] [place] [address] CBC WITH AUTO DIFFERENTIALon 04-26-2023 Basophils (Bld) [#/Vol] 0.04 10*3/uL Normal 0.00-0.20 [facility] Comment on above: Performed By: #### L [id number] #### [facility] ([facility]ER) [address] [place] [address] Basophils/100 WBC (Bld) 0.6 % Normal 0.0-1.0 [facility] Comment on above: Performed By: #### L [id number] #### [facility] ([facility]ER) [address] [place] [address] Eosinophils (Bld) [#/Vol] 0.21 10*3/uL Normal 0.00-0.50 [facility] Comment on above: Performed By: #### L [id number] #### [facility] (BEAKER) [address] [place] [address] Eosinophils/100 WBC (Bld) 3.2 % Normal 0.0-6.0 [facility] Comment on above: Performed By: #### L [id number] #### [facility] [address] [place] [address] Erythrocyte distribution width (RBC) [Ratio] 13.2 % Normal 11.5-15.0 [facility] Comment on above: Performed By: #### L [id number] #### [facility] ([facility]) [address] [place] [address] ERYTHROCYTE MEAN CORPUSCULAR HEMOGLOBIN CONCENTRATION (G/DL) BY AUTOMATED 33.6 g/dL Normal 32.0-35.0 [facility] Comment on above: Performed By: #### L [id number] #### [facility] ([facility]ER) [address] [place] [address] Hematocrit (Bld) [Volume fraction] 39.9 % Normal 39.0-55.0 [facility] Comment on above: Performed By: #### L [id number] #### [facility] ([facility]ER) [address] [place] [address] Hemoglobin (Bld) [Mass/Vol] 13.4 g/dL Normal 13.0-17.0 [facility] Comment on above: Performed By: #### L [id number] #### [facility] ([facility]ER) [address] [place] [address] Immature granulocytes (Bld) [#/Vol] 0.09 10*3/uL Normal 0.00-0.20 [facility] Comment on above: Performed By: #### L [id number] #### [facility] ([facility]) [address] [place] [address] Immature granulocytes/100 WBC (Bld) 1.4 % High 0.0-1.0 [facility] Comment on above: Performed By: #### L [id number] #### [facility] ([facility]) [address] [place] [id number] Lymphocytes (Bld) [#/Vol] 1.30 10*3/uL Normal 1.20-4.00 [facility] Comment on above: Performed By: #### L [id number] #### [facility] ([facility]) [address] [place] [address] Lymphocytes/100 WBC (Bld) 19.9 % Low 20.0-45.0 [facility] Comment on above: Performed By: #### L [id number] #### [facility] ([facility]) [address] [place] [address] MCH (RBC) [Entitic mass] 30.8 pg Normal 27.0-33.0 [facility] Comment on above: Performed By: #### L [id number] #### [facility] ([facility]) [address] [place] [address] MCV (RBC) [Entitic vol] 91.7 fL Normal 82.0-98.0 [facility] Comment on above: Performed By: #### L [id number] #### [facility] ([facility]) [address] [place] [address] Monocytes (Bld) [#/Vol] 0.77 10*3/uL Normal 0.10-1.00 [facility] Comment on above: Performed By: #### L [id number] #### [facility] [address] [place] [address] Monocytes/100 WBC (Bld) 11.8 % Normal 5.0-12.0 [facility] Comment on above: Performed By: #### L [id number] #### [facility] [address] [place] [address] Neutrophils (Bld) [#/Vol] 4.12 10*3/uL Normal 1.60-7.60 [facility] Comment on above: Performed By: #### L [id number] #### [facility] ([facility]) [address] [place] [address] Neutrophils/100 WBC (Bld) 63.1 % Normal 40.0-72.0 [facility] Comment on above: Performed By: #### L [id number] #### [facility] ([facility]) [address] [place] [address] NRBC (PER 100 WBCS) BY AUTOMATED COUNT 0.0 % Normal 0 [facility] Comment on above: Performed By: #### L [id number] #### [facility] ([facility]) [address] [place] [address] PLATELETS (10*3/UL) IN BLOOD AUTOMATED COUNT 183 10*3/uL Normal 150-400 [facility] Comment on above: Performed By: #### L [id number] #### [facility] ([facility]) [address] [place] [address] RBC (Bld) [#/Vol] 4.35 10*6/uL Normal 4.20-5.70 [facility] Comment on above: Performed By: #### L [id number] #### [facility] [address] [place] [address] WBC (Bld) [#/Vol] 6.53 10*3/uL Normal 4.00-10.60 [facility] Comment on above: Performed By: #### L [id number] #### [facility] [address] [place] [address] COMPREHENSIVE METABOLIC PANE Harlan 06-16-2023 Albumin [Mass/Vol] 4.1 g/dL Normal 3.5-5.7 [facility] Comment on above: Performed By: #### L [id number] #### [facility] ([facility]) [address] [place] [address] ALP [Catalytic activity/Vol] 57 U/L Normal 34-104 [facility] Comment on above: Performed By: #### L [id number] #### [facility] [address] [place] [address] ALT [Catalytic activity/Vol] 42 U/L Normal 7-52 [facility] Comment on above: Performed By: #### L [id number] #### [facility] [address] [place] [address] Anion gap [Moles/Vol] 13 mmol/L Normal 7-20 [facility] Comment on above: Performed By: #### L [id number] #### [facility] ([facility] [address] [place] [address] AST [Catalytic activity/Vol] 29 U/L Normal 13-39 [facility] Comment on above: Performed By: #### L [id number] #### [facility] ([facility] [address] [place] [address] Bilirubin [Mass/Vol] 0.9 mg/dL Normal 0.3-1.0 [facility] Comment on above: Performed By: #### L [id number] #### [facility] ([facility] [address] [place] [address] Calcium [Mass/Vol] 9.2 mg/dL Normal 8.6-10.3 [facility] Comment on above: Performed By: #### L [id number] #### [facility] ([facility]) [address] [place] [address] Chloride [Moles/Vol] 106 mmol/L Normal 98-107 [facility] Comment on above: Performed By: #### L [id number] #### [facility] ([facility] [address] [place] [address] CO2 [Moles/Vol] 23 mmol/L Normal 21-31 [facility] Comment on above: Performed By: #### L [id number] #### [facility] ([facility]) [address] [place] [address] Creatinine [Mass/Vol] 1.11 mg/dL Normal 0.70-1.30 [facility] Comment on above: Performed By: #### L [id number] #### [facility] ([facility]) [address] [place] [address] GLOMERULAR FILTRATION RATE ML/MIN/1.73 SQ M.PREDICTED 71.0 mL/min/1.73m*2 Normal >60.0 [facility] Comment on above: Result Comment: [facility]???s estimated glomerular filtration rate (eGFR) will no [...] individuals. Performed By: #### L [id number] #### [facility] ([facility]) [address] [place] [address] Glucose [Mass/Vol] 224 mg/dL High 70-100 [facility] Comment on above: Performed By: #### L [id number] #### [facility] [address] [place] [address] Potassium [Moles/Vol] 4.2 mmol/L Normal 3.5-5.1 [facility] Comment on above: Performed By: #### L [id number] #### [facility] [address] [place] [address] Protein [Mass/Vol] 6.9 g/dL Normal 6.0-8.3 [facility] Comment on above: Performed By: #### L [id number] #### [facility] ([facility]) [address] [place] [address] Sodium [Moles/Vol] 138 mmol/L Normal 136-145 [facility] Comment on above: Performed By: #### L [id number] #### [facility] ([facility]) [address] [place] [address] Urea nitrogen [Mass/Vol] 22 mg/dL Normal 7-25 [facility] Comment on above: Performed By: #### L [id number] #### [facility] ([facility]) [address] [place] [address] UREA NITROGEN/CREATININE (MASS RATIO) IN SER/PLAS 19.8 Normal [facility] Comment on above: Performed By: #### L [id number] #### [facility] ([facility]) [address] [place] [address] MAGNESIUMon 04-26-2023 Magnesium [Mass/Vol] 1.9 mg/dL Normal 1.9-2.7 [facility] Comment on above: Performed By: #### L [id number] #### [facility] ([facility]) [address] [place] [address] Orders Onlyon 04-26-2023 Orders Only [id number] Gadiel Smith 1950 M Date Provider Department [place] 04/26/2023 TONY MARIEE [facility] Family History Problem Relation Age of Onset [...] Grandfather Paternal Grandmother Paternal Grandfather Other Normal [facility] Orders Only [id number] Gadile Smith 1950 Date Provider Department [facility] 04/26/2023 JANEE JAIME RO [place] Family History Problem Relation Age [...] Grandfather Paternal Grandmother Paternal Grandfather Other Normal [facility] Orders Only [id number] Gadiel Smith Geovanna 1950 Date Provider Department Center 04/26/2023 JESÚS SIMPSON Family History Problem Relation Age [...] Grandfather Paternal Grandmother Paternal Grandfather Other Normal [facility] PROTIME-INRon 04-26-2023 INR IN PPP BY COAGULATION ASSAY 1.27 High 0.90-1.10 [facility] Comment on above: Result Comment: ACCC P [...] 1995;108:[id number]-246S. Performed By: #### L [id number] #### [facility] ([facility]) [address] [place] [address] PROTHROMBIN TIME (PT) IN PPP BY COAGULATION ASSAY 15.9 Seconds High 12.3-14.8 [facility] Comment on above: Performed By: #### L [id number] #### [facility] ([facility]) [address] [place] [address] ECHOCARDIO M/2D COMPLETEon 0 02-28-2023 ECHOCARDIO M/2D COMPLETE Patient: GADIEL SMITH Exam Date: 02/28/2023 : 1950 Gender:M Ordering : ELICEO ESPINOZA Admission #: [id number] Family : DR JOSELUIS QUIROZ M.D. Order #: [id number] CLICK HERE TO VIEW EXAM ECHOCARDIOGRAM REPORT [...] Left Atrium LA Volume Index (2D A2C): 68301 mm3 Left Atrium Systolic Dimension: 4.90 cm [...] Patten M.D. on 02/28/2023 at 20:13 Normal [facility] PROF 14(COMP METB)on 023 Albumin [Mass/Vol] 3.7 g/dL Normal 3.4-5.0 [facility] Comment on above: Performed By: #### C MP #### [facility] [address] [place] [address] Dr. Esme Jackson Albumin/Globulin [Mass ratio] 1.1 {ratio} Normal [facility] Comment on above: Performed By: #### C MP #### [facility] [address] [place] [address] Dr. Esme Jackson ALP [Catalytic activity/Vol] 65 U/L Normal 46-116 [facility] Comment on above: Performed By: #### C MP #### [facility] [address] [place] [address] Dr. Esme Jackson ALT [Catalytic activity/Vol] 26 U/L Normal 16-63 [facility] Comment on above: Performed By: #### C MP #### [facility] [address] [address] [address] Esme Jackson Anion gap [Moles/Vol] 10.8 mmol/L Normal [facility] Comment on above: Performed By: #### C MP #### [facility] [address] [address] [address] Esme Jackson AST [Catalytic activity/Vol] 16 U/L Normal 15-37 [facility] Comment on above: Performed By: #### C MP #### [facility] [address] [place] [address] Dr. Esme Jackson Bilirubin [Mass/Vol] 1.1 mg/dL Critically high 0.2-1.0 [facility] Comment on above: Performed By: #### C MP #### [facility] [address] [place] [address] Dr. Esme Jackson Calcium [Mass/Vol] 9.4 mg/dL Normal 8.5-10.1 [facility] Comment on above: Performed By: #### C MP #### [facility] [address] [place] [address] Dr. Esme Jackson Chloride [Moles/Vol] 103 mmol/L Normal 98-107 [facility] Comment on above: Performed By: #### C MP #### [facility] [address] [place] [address] Dr. Esme Jackson CO2 [Moles/Vol] 28.5 mmol/L Normal 21.0-32.0 [facility] Comment on above: Performed By: #### C MP #### [facility] [address] [place] [address] Dr. Esme Jackson Creatinine [Mass/Vol] 1.07 mg/dL Normal 0.70-1.30 [facility] Comment on above: Performed By: #### C MP #### [facility] [address] [place] [address] Dr. Esme Jackson EGFR-AF FRENCH >60 Normal >=60 [facility] Comment on above: Performed By: #### C MP #### [facility] [address] [place] [address] Dr. Esme Jackson EGFR-NON AF FRENCH >60 Normal >=60 [facility] Comment on above: Performed By: #### C MP #### [facility] [address] [place] [address] Dr. Esme Jackson Globulin (S) [Mass/Vol] 3.5 g/dL Normal [facility] Comment on above: Performed By: #### C MP #### [facility] [address] [place] [address] Dr. Esme Jackson Glucose [Mass/Vol] 190 mg/dL Critically high 74-106 [facility] Comment on above: Performed By: #### C MP #### [facility] [address] [place] [address] Dr. Esme Jackson Potassium [Moles/Vol] 5.3 mmol/L Critically high 3.5-5.1 [facility] Comment on above: Performed By: #### C MP #### [facility] [address] [place] [address] Dr. Esme Jackson Protein [Mass/Vol] 7.2 g/dL Normal 6.4-8.2 [facility] Comment on above: Performed By: #### C MP #### [facility] [address] [place] [address] Dr. Esme Jackson Sodium [Moles/Vol] 137 mmol/L Normal 136-145 [facility] Comment on above: Performed By: #### C MP #### [facility] [address] [place] [address] Dr. Esme Jackson Urea nitrogen [Mass/Vol] 14.0 mg/dL Normal 7.0-18.0 [facility] Comment on above: Performed By: #### C MP #### [facility] [address] [place] [address] Dr. Esme Jackson Urea nitrogen/Creatinine [Mass ratio] 13.1 mg/mg Normal [facility] Comment on above: Performed By: #### C MP #### [facility] [address] [place] [address] Dr. Esme Jackson BNPon 11-10-2022 Natriuretic peptide B (Bld) [Mass/Vol] 6259.0 pg/mL Critically high <=900.0 [facility] Comment on above: Performed By: #### B JEWISH THOUGHT PROFESSOR, BMP, HSTROPN #### [facility] [address] [place] [address] Dr. Esme Jackson CBC AUTO DIFFon 11-10-2022 BASO # 0.0 103/ul Normal 0.0-0.1 [facility] Comment on above: Performed By: #### C BC #### [facility] [address] [place] [address] Dr. Esme Jackson Basophils/100 WBC (Bld) 0.5 % Normal 0.2-2.0 [facility] Comment on above: Performed By: #### C BC #### [facility] [address] [place] [address] Dr. Esme Jackson EO # 0.3 103/ul Normal 0.0-0.7 [facility] Comment on above: Performed By: #### C BC #### [facility] [address] [place] [address] Dr. Esme Jackson Eosinophils/100 WBC (Bld) 3.6 % Normal 0.9-7.0 [facility] Comment on above: Performed By: #### C BC #### [facility] [address] [place] [address] Dr. Esme Jackson Erythrocyte distribution width (RBC) [Ratio] 14.8 % Normal 11.0-15.0 [facility] Comment on above: Performed By: #### C BC #### [facility] [address] [place] [address] Dr. Esme Jackson Hematocrit (Bld) [Volume fraction] 36.9 % Critically low 42.0-54.0 [facility] Comment on above: Performed By: #### C BC #### [facility] [address] [place] [address] Dr. Esme Jackson Hemoglobin (Bld) [Mass/Vol] 12.0 g/dL Critically low 14.0-18.0 [facility] Comment on above: Performed By: #### C BC #### [facility] [address] [place] [address] Dr. Esme Jackson IG # 0.04 10e3/ul Critically high 0.00-0.03 [facility] Comment on above: Performed By: #### C BC #### [facility] [address] [place] [address] Dr. Esme Jackson IG % 0.5 % Normal 0.0-0.5 [facility] Comment on above: Performed By: #### C BC #### [facility] [address] [place] [address] Dr. Esme Jackson LYMPH # 1.3 103/ul Normal 1.2-3.8 [facility] Comment on above: Performed By: #### C BC #### [facility] [address] [place] [address] Dr. Esme Jackson Lymphocytes/100 WBC (Bld) 18.2 % Critically low 20.5-60.0 [facility] Comment on above: Performed By: #### C BC #### [facility] [address] [place] [address] Dr. Esme Jackson MANUAL DIFF REQ NO Normal [facility] Comment on above: Performed By: #### C BC #### [facility] [address] [place] [address] Dr. Esme Jackson MCH (RBC) [Entitic mass] 28.0 pg Normal 25.9-34.0 [facility] Comment on above: Performed By: #### C BC #### [facility] [address] [place] [address] Dr. Esme Jackson MCHC (RBC) [Mass/Vol] 32.5 g/dL Normal 29.9-35.2 [facility] Comment on above: Performed By: #### C BC #### [facility] [address] [place] [address] Dr. Esme Jackson MCV (RBC) [Entitic vol] 86.0 fL Normal 80.0-94.0 [facility] Comment on above: Performed By: #### C BC #### [facility] [address] [place] [address] Dr. Esme Jackson MONO # 0.5 103/ul Normal 0.3-0.8 [facility] Comment on above: Performed By: #### C BC #### [facility] [address] [place] [address] Dr. Esme Jackson Monocytes/100 WBC (Bld) 7.3 % Normal 1.7-12.0 [facility] Comment on above: Performed By: #### C BC #### [facility] [address] [place] [address] Dr. Esme Jackson NEUT # 5.1 103/ul Normal 1.4-6.5 [facility] Comment on above: Performed By: #### C BC #### [facility] [address] [place] [address] Dr. Esme Jackson Neutrophils/100 WBC (Bld) 69.9 % Normal 43.0-75.0 [facility] Comment on above: Performed By: #### C BC #### [facility] [address] [address] [address] Esme Jackson Platelet mean volume (Bld) [Entitic vol] 10.3 fL Normal 9.5-13.5 [facility] Comment on above: Performed By: #### C BC #### [facility] [address] [address] [address] Esme Jackson PLT 220 103/ul Normal 150-450 [facility] Comment on above: Performed By: #### C BC #### [facility] [address] [address] [address] Esme Jackson RBC 4.29 106/ul Critically low 4.70-6.10 [facility] Comment on above: Performed By: #### C BC #### [facility] [address] [address] [address] Esme Jackson WBC 7.3 103/ul Normal 4.0-11.0 [facility] Comment on above: Performed By: #### C BC #### [facility] [address] [address] [address] Esme Jackson Covid-19 PCR ([facility])on 10-13 SARS-CoV-2 (COVID-19) RNA HANSA+probe Ql (Unsp spec) Not detected Normal NOT DETECTED [facility] Comment on above: Result Comment: When diagnostic [...] for this test is supported by the [place] of Health and Human Service's declaration that [...] used). Performed By: #### C VDTBH #### [facility] [address] [place] [address] Dr. Esme Jackson INFLUENZA A AND B AGon 11-10 [facility] SEE BELOW Normal [facility] Comment on above: Result Comment: Nega tive for Flu A protein angiten. Infection due to Flu A cannot be ruled out. Flu A angiten in the sample may be below the detection limit of the test. Performed By: #### F T4 #### [facility] [address] [place] [address] Dr. [facility] Normal [facility] Comment on above: Result Comment: Nega tive for Flu B protein antigen. Infection due to Flu B cannot be ruled out. Flu B antigen in the sample may be below the detection limit of the test. Performed By: #### F T4 #### [facility] [address] [place] [address] Dr. Esme Jackson INFLUENZA A AG Negative Normal NEGATIVE SEE COMMENT [facility] Comment on above: Performed By: #### F T4 #### [facility] [address] [place] [address] Dr. Esme Jackson INFLUENZA B AG Negative Normal NEGATIVE SEE COMMENT [facility] Comment on above: Performed By: #### F T4 #### [facility] [address] [place] [address] Dr. Esme Jackson PROF CHEM 8 (BAS METB)on Anion gap [Moles/Vol] 13.9 mmol/L Normal [facility] Comment on above: Performed By: #### B JEWISH THOUGHT PROFESSOR, BMP, HSTROPN #### [facility] [address] [place] [address] Dr. Esme Jackson Calcium [Mass/Vol] 8.7 mg/dL Normal 8.5-10.1 [facility] Comment on above: Performed By: #### B JEWISH THOUGHT PROFESSOR, BMP, HSTROPN #### [facility] [address] [place] [address] Dr. Esme Jackson Chloride [Moles/Vol] 104 mmol/L Normal 98-107 [facility] Comment on above: Performed By: #### B JEWISH THOUGHT PROFESSOR, BMP, HSTROPN #### [facility] [address] [address] [address] Esme Jackson CO2 [Moles/Vol] 25.2 mmol/L Normal 21.0-32.0 [facility] Comment on above: Performed By: #### B JEWISH THOUGHT PROFESSOR, BMP, HSTROPN #### [facility] [address] [address] [address] Esme Jackson Creatinine [Mass/Vol] 1.04 mg/dL Normal 0.70-1.30 [facility] Comment on above: Performed By: #### B JEWISH THOUGHT PROFESSOR, BMP, HSTROPN #### [facility] [address] [address] [address] Esme Jackson EGFR-AF FRENCH >60 Normal >=60 [facility] Comment on above: Performed By: #### B JEWISH THOUGHT PROFESSOR, BMP, HSTROPN #### [facility] [address] [address] [address] Esme Jackson EGFR-NON AF FRENCH >60 Normal >=60 [facility] Comment on above: Performed By: #### B JEWISH THOUGHT PROFESSOR, BMP, HSTROPN #### [facility] [address] [address] [address] Esme Jackson Glucose [Mass/Vol] 199 mg/dL Critically high 74-106 [facility] Comment on above: Performed By: #### B JEWISH THOUGHT PROFESSOR, BMP, HSTROPN #### [facility] [address] [address] [address] Esme Jackson Potassium [Moles/Vol] 4.1 mmol/L Normal 3.5-5.1 [facility] Comment on above: Performed By: #### B JEWISH THOUGHT PROFESSOR, BMP, HSTROPN #### [facility] [address] [address] [address] Esme Jackson Sodium [Moles/Vol] 139 mmol/L Normal 136-145 [facility] Comment on above: Performed By: #### B JEWISH THOUGHT PROFESSOR, BMP, HSTROPN #### [facility] [address] [address] [address] Esme Jackson Urea nitrogen [Mass/Vol] 18.0 mg/dL Normal 7.0-18.0 [facility] Comment on above: Performed By: #### B JEWISH THOUGHT PROFESSOR, BMP, HSTROPN #### [facility] [address] [address] [address] Esme Jackson Urea nitrogen/Creatinine [Mass ratio] 17.3 mg/mg Normal [facility] Comment on above: Performed By: #### B JEWISH THOUGHT PROFESSOR, BMP, HSTROPN #### [facility] [address] [address] [address] Esme Jackson TROPONIN, HIGH SENSITIVITYon 11-10-2022 HSTROP 35.5 pg/mL Normal 4.0-76.1 [facility] Comment on above: Result Comment: CUT- OFF POINTS HAVE BEEN ESTABLISHED BASED ON THE FOURTH UNIVERSAL DEFINITIONS OF MYOCARDIAL INFARCTION. THE UPPER REFERENCE LIMIT (URL) OF TROPONIN, DEFINED THE 99TH PERCENTILE OF cTnI DISTRIBUTION IN A REFERENCE POPULATION, HAS BEEN CONFIRMED THE DECISION THRESHOLD FOR IN DIAGNOSIS. Performed By: #### B JEWISH THOUGHT PROFESSOR, BMP, HSTROPN #### [facility] [address] [place] [address] Dr. Esme Jackson XR CHEST 1 Von [...] osseous structures are stable. Electronically authenticated by: [email or web address] Date: 2022-11-10 09:24 Normal [facility] Covid-19 PCR ([facility])on SARS-CoV-2 (COVID-19) RNA HANSA+probe Ql (Unsp spec) Not detected Normal NOT DETECTED The [facility] Comment on above: Result Comment: When diagnostic [...] for this test is supported by the Director Commercial Sales of Health and Human Service's declaration that [...] used). Performed By: #### C VDTB #### [facility] Laboratory [address] [place] [address] Dr. Esme Jackson INFLUENZA A AND B AGon 10-15 [facility] SEE BELOW Normal [facility] Comment on above: Result Comment: Nega tive for Flu A protein angiten. Infection due to Flu A cannot be ruled out. Flu A angiten in the sample may be below the detection limit of the test. Performed By: #### F T4 #### [facility] [address] [place] [address] Dr. [facility] Normal [facility] Comment on above: Result Comment: Nega tive for Flu B protein antigen. Infection due to Flu B cannot be ruled out. Flu B antigen in the sample may be below the detection limit of the test. Performed By: #### F T4 #### [facility] [address] [place] [address] Dr. Esme Jackson INFLUENZA A AG Negative Normal NEGATIVE SEE COMMENT [facility] Comment on above: Performed By: #### F T4 #### [facility] [address] [place] [address] Dr. Esme Jackson INFLUENZA B AG Negative Normal NEGATIVE SEE COMMENT [facility] Comment on above: Performed By: #### F T4 #### [facility] [address], [place] [address] Dr. Esme Jackson INTERNAL CONTROLS Within Normal Limits Normal Wi thin Normal Limits [facility] Comment on above: Performed By: #### F T4 #### [facility] [address], [place] [address] Dr. Esme Jackson XR CHEST 2 Von [...] RAPHAEL NUNEZ Date: 2022-10-15 10:08 Normal The [facility] Follow Up (Endocrinology)on 10-10-2022 Follow Up (Endocrinology) [...] Transmission to [id number]; Last Updated By: Antwan PierreGENIUS CENTRAL SYSTEMSjohn paul; 10/10/2022 11:29:03 AM Albumin, Urine Spot; Status:Active; Requested for:10Oct2022; Perform:Lab Services - Lab To Draw (Non-Blood Test); Due:[id number];Ordered; For:Central hypothyroidism, Hyperlipemia, Hypogonadism male, Pituitary macroadenoma, Thyroid nodule, Type 2 diabetes mellitus with other specified complication, with long-term current use of insulin; Ordered By:Mandie Salamanca; Brain Natriuretic Peptide BNP; Status:Active; Requested for:10Oct2022; Perform:Lab Services - Lab To Draw (Blood Test); Due:[id number];Ordered; For:Central hypothyroidism, Hyperlipemia, Hypogonadism male, Pituitary macroadenoma, Thyroid nodule, Type 2 diabetes mellitus with other specified complication, with long-term current use of insulin; Ordered By:Mandie Salamanca; Complete Blood Count + Differential; Status:Active; Requested for:10Oct2022; Perform:Lab Services - Lab To Draw (Blood Test); Due:[id number];Ordered; For:Central hypothyroidism, Hyperlipemia, Hypogonadism male, Pituitary macroadenoma, Thyroid nodule, Type 2 diabetes mellitus with other specified complication, with long-term current use of insulin; Ordered By:Mandie Salamanca; Comprehensive Metabolic Panel; Status:Active; Requested for:10Oct2022; Perform:Lab Services - Lab To Draw (Blood Test); Due:[id number];Ordered; For:Central hypothyroidism, Hyperlipemia, Hypogonadism male, Pituitary macroadenoma, Thyroid nodule, Type 2 diabetes mellitus with other specified complication, with long-term current use of insulin; Ordered By:Mandie Salamanca; Cortisol, Unspecified; Status:Active; Requested for:10Oct2022; Perform:Lab Services - Lab To Draw (Blood Test); Due:[id number];Ordered; For:Central hypothyroidism, Hyperlipemia, Hypogonadism male, Pituitary macroadenoma, Thyroid nodule, Type 2 diabetes mellitus with other specified complication, with long-term current use of insulin; Ordered By:Mandie Salamanca; Hemoglobin A1C; Status:Active; Requested for:10Oct2022; Perform:Lab Services - Lab To Draw (Blood Test); Due:[id number];Ordered; For:Central hypothyroidism, Hyperlipemia, Hypogonadism male, Pituitary macroadenoma, Thyroid nodule, Type 2 diabetes mellitus with other specified complication, with long-term current use of insulin; Ordered By:Mandie Salamanca; Lipid Panel; Status:Active; Requested for:10Oct2022; Perform:Lab Services - Lab To Draw (Blood Test); Due:[id number];Ordered; For:Central hypothyroidism, Hyperlipemia, Hypogonadism male, Pituitary macroadenoma, Thyroid nodule, Type 2 diabetes mellitus with other specified complication, with long-term current use of insulin; Ordered By:Mandie Salamanca; Prolactin, Serum; Status:Active; Requested for:10Oct2022; Perform:Lab Services - Lab To Draw (Blood Test); Due:[id number];Ordered; For:Central hypothyroidism, Hyperlipemia, Hypogonadism male, Pituitary macroadenoma, Thyroid nodule, Type 2 diabetes mellitus with other specified complication, with long-term current use of insulin; Ordered By:Mandie Salamanca; T4 - Free Thyroxine, Serum; Status:Active; Requested for:10Oct2022; Perform:Lab Services - Lab To Draw (Blood Test); Due:08Jan2023;Ordered; For:Central hypothyroidism, Hyperlipemia, Hypogonadism male, Pituitary macroadenoma, Thyroid nodule, Type 2 (more content not included)... Normal [facility] LUISGADIEL LAUREN ([id number]) 1950 M Date Time Provider Department 07/02/22 MANDIE SALAMANCA During your visit today, we recorded the following information about you: Janee Butcher 07/02/2022 2:40 PM Signed Received Thyroid US report from [facility]. Indexed into chart. Allergies As of Date: 07/02/2022 Noted Allergy Reaction LISINOPRIL 04/28/2015 14 - Other: See Comments Comments: Fatigue Date Reviewed: 01/21/2019 Reviewed by: Maricruz Allison Ma - Fully Assessed Reason for Visit: Received Outside Medical Records [[id number]] Cmt: Received Thyroid US report from [facility]. Indexed into chart. Prescriptions as of 07/02/2022 [...] LANCETS) lancets Use as instructed - Insulin Leopold, Disposable, (BD ULTRAFINE III MINI PEN) 31 [...] Status:Closed by JANEE BUTCHER on 07/02/22 Normal [facility] CORTISOL Bri 06-25-2022 Cortisol AM 19.6 ug/dL Critically high 6.2-19.4 The [facility] Comment on above: Performed By: #### C ORTAM #### [facility] [address] [address] [address] Esme Jackson MICROALBUMIN URINEon 022 Albumin, Urine 36.5 ug/mL Normal Not Estab. The [facility] Comment on above: Performed By: #### F T4 #### [facility] [address], [place] [address] Dr. Esme Jackson FREE T4on 06-22-2022 Free T4 [Mass/Vol] 1.22 ng/dL Normal 0.76-1.46 The [facility] Comment on above: Performed By: #### F T4 #### [facility] [address] [address] [address] Esme Jackson GLYCOHEMOGLOBIN A1Con 2021 ADA RECOMMENDATION SEE BELOW Normal [facility] Comment on above: Result Comment: ADA RECOMMENDED LIMIT 4.0 - 6.0 ADA THERAPEUTIC TARGET < 7.0 ACTION SUGGESTED > 7.0 Performed By: #### F T4 #### [facility] [address] [address] [address] Esme Jackson Glucose [Mass/Vol] 194 mg/dL Normal [facility] Comment on above: Performed By: #### F T4 #### [facility] [address] [address] [address] Esme Jackson HbA1c (Bld) [Mass fraction] 8.4 % Critically high 4.5-6.2 [facility] Comment on above: Performed By: #### F T4 #### [facility] [address] [address] [address] Esme Jackson LIPID PROFILEon 06-22-2022 CHOL-HDL RATIO NORM SEE BELOW Normal [facility] Comment on above: Result Comment: 3.3 - 4.4 LOW RISK 4.4 - 7.1 AVERAGE RISK 7.1 - 11.0 MODERATE RISK >11.0 HIGH RISK Performed By: #### F T4 #### [facility] [address] [address] [address] Esme Jackson Cholesterol [Mass/Vol] 153 mg/dL Normal <=200 [facility] Comment on above: Performed By: #### F T4 #### [facility] [address] [address] [address] Esme Jackson Cholesterol in HDL [Mass/Vol] 55 mg/dL Normal 40-60 [facility] Comment on above: Performed By: #### F T4 #### [facility] [address] [address] [address] Esme Jackson Cholesterol in LDL [Mass/Vol] 82.2 mg/dL Normal [facility] Comment on above: Performed By: #### F T4 #### [facility] [address] [address] [address] Esme Jackson Cholesterol.total/Ch olesterol in HDL [Mass ratio] 2.8 {ratio} Normal [facility] Comment on above: Performed By: #### F T4 #### [facility] [address] [address] [address] Esme Jackson HDL NORMAL > or = 60 mg/dl - LO W CARDIOVASCULAR RISK <40 mg/dl - HIGH CARDIOVASCULAR RISK Normal [facility] Comment on above: Performed By: #### F T4 #### [facility] [address] [address] [address] Esme Jackson LDL CALC NORMAL SEE BELOW Normal [facility] Comment on above: Result Comment: <100 mg/dl OPTIMAL 100 - 129 mg/dl NEAR OR ABOVE OPTIMAL 130 - 159 mg/dl BORDERLINE HIGH 160 - 189 mg/dl HIGH >190 mg/dl VERY HIGH Performed By: #### F T4 #### [facility] [address] [address] [address] Esme Jackson Triglyceride [Mass/Vol] 79 mg/dL Normal <=150 [facility] Comment on above: Performed By: #### F T4 #### [facility] [address] [address] [address] Esme Jackson VLDL CALC 15.8 mg/dL Normal [facility] Comment on above: Performed By: #### F T4 #### [facility] [address] [address] [address] Esme Jackson PROF 14(COMP METB)on 022 Albumin [Mass/Vol] 3.9 g/dL Normal 3.4-5.0 [facility] Comment on above: Performed By: #### F T4 #### [facility] [address] [place] [address] Dr. Esme Jackson Albumin/Globulin [Mass ratio] 1.1 {ratio} Normal [facility] Comment on above: Performed By: #### F T4 #### [facility] [address] [address] [address] Esme Jackson ALP [Catalytic activity/Vol] 57 U/L Normal 46-116 [facility] Comment on above: Performed By: #### F T4 #### [facility] [address] [address] [address] Esme Jackson ALT [Catalytic activity/Vol] 22 U/L Normal 16-63 [facility] Comment on above: Performed By: #### F T4 #### [facility] [address] [address] [address] Esme Jackson Anion gap [Moles/Vol] 12.6 mmol/L Normal [facility] Comment on above: Performed By: #### F T4 #### [facility] [address] [address] [address] Esme Jackson AST [Catalytic activity/Vol] 18 U/L Normal 15-37 [facility] Comment on above: Performed By: #### F T4 #### [facility] [address] [place] [address] Dr. Esme Jackson Bilirubin [Mass/Vol] 1.1 mg/dL Critically high 0.2-1.0 [facility] Comment on above: Performed By: #### F T4 #### [facility] [address] [address] [address] Esme Jackson Calcium [Mass/Vol] 9.0 mg/dL Normal 8.5-10.1 [facility] Comment on above: Performed By: #### F T4 #### [facility] [address] [address] [address] Esme Jackson Chloride [Moles/Vol] 103 mmol/L Normal 98-107 [facility] Comment on above: Performed By: #### F T4 #### [facility] [address] [address] [address] Esme Jackson CO2 [Moles/Vol] 27.2 mmol/L Normal 21.0-32.0 [facility] Comment on above: Performed By: #### F T4 #### [facility] [address] [address] [address] Esme Jackson Creatinine [Mass/Vol] 0.90 mg/dL Normal 0.70-1.30 [facility] Comment on above: Performed By: #### F T4 #### [facility] [address] [address] [address] Esme Jackson EGFR-AF FRENCH >60 Normal >=60 [facility] Comment on above: Performed By: #### F T4 #### [facility] [address] [address] [address] Esme Jackson EGFR-NON AF FRENCH >60 Normal >=60 [facility] Comment on above: Performed By: #### F T4 #### [facility] [address] [address] [address] Esme Jackson Globulin (S) [Mass/Vol] 3.4 g/dL Normal [facility] Comment on above: Performed By: #### F T4 #### [facility] [address] [address] [address] Esme Jackson Glucose [Mass/Vol] 185 mg/dL Critically high 74-106 [facility] Comment on above: Performed By: #### F T4 #### [facility] [address] [address] [address] Esme Jackson Potassium [Moles/Vol] 3.8 mmol/L Normal 3.5-5.1 [facility] Comment on above: Performed By: #### F T4 #### [facility] [address] [address] [address] Esme Jackosn Protein [Mass/Vol] 7.3 g/dL Normal 6.4-8.2 [facility] Comment on above: Performed By: #### F T4 #### [facility] [address] [address] [address] Esme Jackson Sodium [Moles/Vol] 139 mmol/L Normal 136-145 [facility] Comment on above: Performed By: #### F T4 #### [facility] [address] [address] [address] Esme Jackson Urea nitrogen [Mass/Vol] 12.0 mg/dL Normal 7.0-18.0 [facility] Comment on above: Performed By: #### F T4 #### [facility] [address], [place] [address] Dr. Esme Jackson Urea nitrogen/Creatinine [Mass ratio] 13.3 mg/mg Normal [facility] Comment on above: Performed By: #### F T4 #### [facility] [address] [place] [address] [address] [address] Esme Jackson US THYROIDon 06-22-2022 US [...] nodules. 1 year follow-up recommended TI-RADS: The [employer] TI-RADS committee's white paper recommendations for thyroid lesions classified as TR5 (highly suspicious) are listed below: > 0.5 cm. Annual ultrasound follow-up for up to 5 years. > 1.0 cm. FNA. J. Am Dionicio Radiol 2017;14:587-595. Electronically authenticated by: GEORGIE DAVIES Date: 2022-06-22 17:28 Normal [facility] Follow Up (Endocrinology)on 04-24-2022 Follow Up (Endocrinology) [...] Thyroid; Status:Hold For - Scheduling; Requested for:24Apr2022; Perform:[facility]; Due:23Jul2022;Ordered; For:Central hypothyroidism, Hyperlipemia, [...] nodule; CATIE = N; Verified Transmission to [facility]; Last Updated By: Veronique Pierre; 04/24/2022 10:33:22 AM Hypogonadism male, Pituitary macroadenoma Renew: Testosterone 50 MG/5GM (1%) Transdermal Gel; APPLY 1 PACKET ONE TIME DAILY DIRECTED Rx By: Mandie Salamanca; Dispense: 0 Days ; #:90 X 5 GM Package; Refill: 1;For: Hypogonadism male, Pituitary macroadenoma; CATIE = N; [facility]; Last Updated By: Papirus; 04/24/2022 10:33:21 AM Pituitary macroadenoma Renew: Cabergoline 0.5 MG Oral Tablet; Take 1 tablet every other day Rx By: Mandie Salamanca; Dispense: 80 Days ; #:40 Tablet; Refill: 3;For: Pituitary macroadenoma; CATIE = N; [facility]; Last Updated By: Gabby [employer]; 04/24/2022 10:33:26 AM Type 2 diabetes mellitus with other specified complication, with long-term current use of insulin Renew: Accu-Chek Alicia Plus In Vitro Strip; TEST TWICE DAILY Rx B (more content not included)... Normal [employer] Tobacco Screening.on 022 Adult depression screening assessment No [facility] [address] Work Phone: Fall risk assessment a) No falls within the last year [facility] [address] Work Phone: Tobacco use status [facility]PH[facility] b) [facility] [address] Work Phone: Vital Signs Date Time Vital Sign Value Performing Clinician Facility 04-14-2024 12:35-0400 Diastolic blood pressure 63 mm[Hg] MD Joseluis Quiroz Work Phone: [facility] 04-14-2024 12:35-0400 Heart rate 54 /min MD Joseluis Quiroz Work Phone: [facility] 04-14-2024 12:35-0400 Respiratory rate 18 /min MD Joseluis Quiroz Work Phone: [facility] 04-14-2024 12:35-0400 SaO2% (BldA) [Mass fraction] 99 % MD Joseluis Quiroz Work Phone: [facility] 04-14-2024 12:35-0400 Systolic blood pressure 125 mm[Hg] MD Joseluis Quiroz Work Phone: [facility] 04-14-2024 11:02-0400 Body height 182.88 cm MD Joseluis Quiroz Work Phone: [facility] 04-14-2024 11:020400 Body weight 86.18 kg MD Joseluis Quiroz Work Phone: [facility] 03-18-2024 10:35-0400 Body height 182.88 cm MD Joseluis Quiroz Work Phone: [facility] 03-18-2024 10:35-0400 Body mass index (BMI) [Ratio] 25.7 kg/m2 MD Joseluis Quiroz Work Phone: [facility] 03-18-2024 10:35-0400 Body weight 86.18 kg MD Joseluis Quiroz Work Phone: [facility] 03-06-2024 10:52-0400 Body height 182.88 cm MD Joseluis Quiroz Work Phone: [facility] 03-06-2024 10:52-0400 Body mass index (BMI) [Ratio] 26.9 kg/m2 MD Joseluis Quiroz Work Phone: [facility] 03-06-2024 10:52-0400 Body temperature 99.2 [degF] MD Joseluis Quiroz Work Phone: [facility] 03-06-2024 10:52-0400 Body weight 89.98 kg MD Joseluis Quiroz Work Phone: [facility] 03-06-2024 10:52-0400 Diastolic blood pressure 60 mm[Hg] MD Joseluis Quiroz Work Phone: [facility] 03-06-2024 10:52-0400 Heart rate 69 /min MD Joseluis Quiroz Work Phone: [facility] 03-06-2024 10:52-0400 Respiratory rate 18 /min MD Joseluis Quiroz Work Phone: [facility] 03-06-2024 10:52-0400 SaO2% (BldA) [Mass fraction] 95 % MD Joseluis Quiroz Work Phone: [facility] 03-06-2024 10:52-0400 Systolic blood pressure 127 mm[Hg] MD Joseluis Quiroz Work Phone: [facility] 10-29-2023 13:30-0500 Body height 182.88 cm Joseluis Quiroz Other [facility] Other 10-29-2023 13:30-0500 Body mass index (BMI) [Ratio] 26.09 kg/m2 Joseluis Quiroz Other [facility] Other 10-29-2023 13:30-0500 Body weight 87.27 kg Joseluis Quiroz Other [facility] Other 10-29-2023 13:30-0500 Diastolic blood pressure 72 mm[Hg] Joseluis Quiroz Other [facility] Other 10-29-2023 13:30-0500 SaO2% (BldA) [Mass fraction] 93 % Joseluis Quiroz Other [facility] Other 10-29-2023 13:30-0500 Systolic blood pressure 130 mm[Hg] Joseluis Quiroz Other [facility] Other 08-19-2023 11:00-0400 Body height 182.88 cm Joseluis Quiroz Other [facility] Other 08-19-2023 11:00-0400 Body mass index (BMI) [Ratio] 25.36 kg/m2 Joseluis Quiroz Other [facility] Other 08-19-2023 11:00-0400 Body weight 84.82 kg Joseluis Quiroz Other [facility] Other 08-19-2023 11:00-0400 Diastolic blood pressure 61 mm[Hg] Joseluis Quiroz Other [facility] Other 08-19-2023 11:00-0400 Systolic blood pressure 126 mm[Hg] Joseluis Quiroz Other [facility] Other Encounters Encounter Date Encounter Type Care Provider Facility Start: 04-14-2024 Non-patient / Non-visit MD Joseluis Quiroz Work Phone: [facility] Work Phone: Start: 04-14-2024 End: 04-14-2024 Admission to same day surgery center MD Joseluis Quiroz Work Phone: [facility] Work Phone: Start: 04-14-2024 End: 04-14-2024 ambulatory MD Joseluis Quiroz Work Phone: [facility] Work Phone: Start: 04-01-2024 End: 04-01-2024 ambulatory JANEE REDDY [facility] Start: 03-23-2024 End: 03-23-2024 ambulatory RAPHAEL SPRINGER Not Available Start: 03-18-2024 End: 03-18-2024 Patient encounter procedure MD Joseluis Quiroz Work Phone: [facility] Work Phone: Start: 03-06-2024 End: 03-06-2024 Patient encounter procedure MD Joseluis Quiroz Work Phone: [facility] Work Phone: Start: 12-23-2023 End: 12-23-2023 ambulatory Joseluis Quiroz Other [facility] Other Start: 12-23-2023 Telephone encounter Joseluis Quiroz [facility] Start: 10-29-2023 End: 10-29-2023 ambulatory Joseluis Quiroz Other [facility] Other Start: 10-29-2023 Office outpatient visit 15 minutes Joseluis Quiroz [facility] Start: 10-16-2023 End: 10-16-2023 ambulatory Joseluis Quiroz Other [facility] Other Start: 10-16-2023 Telephone encounter Joseluis Quiroz [facility] Start: 09-13-2023 End: 09-13-2023 ambulatory Joseluis Quiroz Other [facility] Other Start: 09-13-2023 Telephone encounter Joseluis Quiroz [facility] Start: 09-10-2023 End: 09-10-2023 ambulatory Joseluis Quiroz Other [facility] Other Start: 09-10-2023 Telephone encounter Joseluis Quiroz [facility] Start: 08-19-2023 End: 08-19-2023 ambulatory Joseluis Quiroz Other [facility] Other Start: 08-19-2023 Office outpatient visit 15 minutes Joseluis Quiroz [facility] Start: 07-31-2023 End: 07-31-2023 ambulatory Joseluis Quiroz Other [facility] Other Start: 07-31-2023 Telephone encounter Joseluis Quiroz [facility] Start: 07-30-2023 End: 07-30-2023 ambulatory [facility] Start: 06-05-2023 End: 06-05-2023 ambulatory [facility] Start: 05-29-2023 Rx Renewal Cabrera Dupont Work Phone: [facility] [address] Work Phone: Start: 05-02-2023 ambulatory [facility] Start: 05-02-2023 End: 05-03-2023 Evaluation and management of inpatient [facility] Start: 04-30-2023 End: 05-03-2023 ambulatory [facility] Start: 04-26-2023 End: 04-26-2023 ambulatory [facility] Start: 04-08-2023 Rx Renewal [place]rera [address]ont Work Phone: [facility] [address] [place] Work Phone: Start: 02-28-2023 End: 03-01-2023 ambulatory ELICEO SUGGSCKO Facility:H1 Start: 01-30-[address] JOSELUIS QUIROZ Facil ity:H1 Start: 01-22-2023 AUDIT [address] Work Phone: [facility] Work Phone: Start: 01-22-2023 Rx Renewal [address] Work Phone: [facility] [address] [place] Work Phone: Start: 01-03-2023 End: 01-29-[address] JOSELUIS QUIROZ Facility:H1 Start: 11-28-2022 End: 11-29-2022 ambulatory JANEE REDDY Facility:[facility]1 Start: 11-12-[address] JOSELUIS QUIROZ Facil ity:H1 Start: 11-10-2022 End: 11-10-[address] JEANNE ALLEN . Facility:[facility]1 Start: 10-15-2022 End: 10-15-[address] RAPHAEL NUNEZ Facility:H1 Start: 10-10-2022 Office outpatient visit 25 minutes [address] Work Phone: [facility] [address] Work Phone: Start: 10-10-2022 ambulatory Referral Self Facility: [id number] Start: 09-28-2022 AUDIT [address] Work Phone: [facility] Work Phone: Start: 07-13-2022 Rx Renewal [address] Work Phone: [facility] [address] [place] Work Phone: Start: 07-02-2022 Telephone encounter Mandie sun MD Work Phone: Endocrinology Comment on above: Received Outside [employer] Records (Received Thyroid US report from [facility]. Indexed into chart. ) Start: 06-22-2022 End: 06-23-[address] DOCTOR BUSBY Facility:H1 Start: 04-24-2022 Office outpatient visit 40 minutes [address] Work Phone: [facility] [facility] Work Phone: Start: 04-24-[address] Cabrera Dupont Facility:[id number] Start: 03-27-2022 AUDIT Cabrera Dupont Work Phone: SU-Yuthrwjisolbb-StxajbgChi [facility] Work Phone: Start: 01-23-2022 AUDIT Cabrera Dupont Work Phone: [facility] Work Phone: Start: 12-11-2021 Rx Renewal Cabrera Dupont Work Phone: UV-Vtwxeceqxfega-CzeugzaChi [facility] Work Phone: Start: 11-08-2021 AUDIT Cabrera Dupont Work Phone: TO-Nvmskmswrudky-AjigehgChi [facility] Work Phone: Start: 08-21-2021 AUDIT Cabrera Dupont Work Phone: TP-Icliqodegzjjx-FAX [address] Work Phone: Start: 05-31-2021 AUDIT Cabrera Dupont Work Phone: QX-Mcqtwahwrpygc-UGI [address] Work Phone: Start: 06-20-2017 End: 06-21-2017 Ambulatory DEFAULT PHYSICIAN Facility:[facility] Procedures Date Procedure Procedure Detail Performing Clinician Start: 04-14-2024 Colonoscopy MD Joseluis Quiroz Work Phone: Appendectomy [facility] Work Phone: Arthroscopy of knee Cabrera Dupont Work Phone: Parathyroidectomy Cabrera Dacosta oss Work Phone: Vasectomy [facility] Work Phone: Plan of Treatment Date Care Activity Detail Author Start: 04-14-2024 [facility] Start: 10-10-2022 AMY, Provider: Mandie Salamanca, Status: Pen, Time: 11:15 AM AMY, Provider: Mandie Salamanca, Status: Pen, Time: 11:15 AM [facility] Work Phone: Start: 07-12-2022 Influenza vaccination INFLUENZA (#1) [facility] Start: 04-24-2022 AMY, Provider: Ynes Sahni, Status: Pen, Time: 1:00 PM [facility] Provider: Ynes Sahni, Status: Pen, Time: 1:00 PM [facility] Work Phone: Start: 11-11-2021 ADVANCE DIRECTIVE DISCUSSION ADVANCE DIRECTIVE DISCUSSION [facility] Start: 07-24-2019 Hemoglobin A1c/Hemoglobin.total in Blood HBA1C [facility] Start: 08-24-2017 Hepatitis B screening URINE ALBUMIN:CREATININE RATIO [facility] Start: 08-24-2017 Hepatitis B surface antibody level LDL CHOLESTEROL [facility] Start: 08-14-2017 3 comp foot exam completed DIABETIC FOOT EXAM [facility] Start: 11-22-2016 Hepatitis C antibody, confirmatory test DILATED RETINAL EXAM [facility] Start: 2016 PNEUMOCOCCAL: 65+ (1 - PCV) PNEUMOCOCCAL: 65+ (1 - PCV) [facility] Start: 2001 SHINGRIX VACCINE (1 of 2) SHINGRIX VACCINE (1 of 2) [facility] Start: 1996 COLOGUARD (FIT-DNA) COLOGUARD (FIT-DNA) [facility] Start: 1996 Colonoscopy COLONOSCOPY [facility] Start: 1996 COLORECTAL CANCER SCREENING COLORECTAL CANCER SCREENING [facility] Start: [address] COLONOGRAPHY [facility] Start: 1996 FECAL OCCULT BLOOD FECAL OCCULT BLOOD [facility] Start: 1996 SIGMOIDOSCOPY SIGMOIDOSCOPY [facility] Start: 1970 Urine microalbumin profile DTAP,TDAP,TD (1 - Tdap) [facility] Start: 1969 HEPATITIS C SCREENING HEPATITIS C SCREENING [facility] Start: 1963 Adult depression screening assessment DEPRESSION SCREENING [facility] Start: 02-08-1951 COVID-19 VACCINE (#1) COVID-19 VACCINE (#1) [facility] Start: 1950 ABDOMINAL AORTIC ANEURYSM SCREENING ABDOMINAL AORTIC ANEURYSM SCREENING [facility] Patient Education Colon polyps Diverticulosis (DC) [facility] Work Phone: XR Abdomen Single view [facility] Immunizations Immunization Date Immunization Notes Care Provider Fa cility 08-15-2022 Fluzone High-Dose Quadrivalent 0.7 ML Intramuscular Suspension Prefilled Syringe Cabrera [facility]ont Work Phone: PO-Fqmhcwybqrvra-W [facility] [address] Work Phone: 09-06-2021 Fluad Quadrivalent 0 .5 ML Intramuscular Prefilled Syringe Cabrera Dupont Work Phone: FB-Vofxdqxlkiusb-H [facility] [address] Work Phone: 01-18-2021 Neva COVID-19 Vac cine 0.5 ML Intramuscular Suspension Cabrera Dupont Work Phone: QF-Azapufogjndba-F [facility] Work Phone: 09-08-2020 Fluad Quadrivalent 0 .5 ML Intramuscular Prefilled Syringe Cabrera Dupont Work Phone: QS-Dcnltyvevzebt-Y [facility] [address] Work Phone: 08-24-2020 influenza, seasonal, injectable Cabrera Dupont Work Phone: MP-Mcjwxvzaptpih-P [facility] [address] Work Phone: 08-24-2019 Seasonal trivalent influenza vaccine, adjuvanted, preservative free Cabrera Dupont Work Phone: SJ-Innhyesckekul-H [facility] [address] Work Phone: 08-04-2018 influenza, injectabl e, quadrivalent, preservative free Cabrera Dupont Work Phone: IZ-Ircuidynhbust-D [facility] [address] Work Phone: 07-19-2018 influenza, high dose seasonal, preservative-free Cabrera Dupont Work Phone: LN-Zejnrcmhcrydg-J [facility] [address] Work Phone: 08-21-2017 influenza, high dose seasonal, preservative-free Cabrera Austin Cresencio Work Phone: JU-Iyixlclenrptt-B [facility] [address] Work Phone: 08-12-2017 pneumococcal polysaccharide vaccine, 23 valent Cabrera Austin Cresencio Work Phone: MJ-Vpvdculvzbjzd-C [facility] [address] Work Phone: 08-12-2017 zoster vaccine recombinant Cabrera Dupont Work Phone: VJ-Vhhbjmijafnhd-A [facility] [address] Work Phone: 08-21-2016 influenza, high dose seasonal, preservative-free Cabrera Dupont Work Phone: SH-Imwofyqanmygk-O [facility] [address] Work Phone: 2015 influenza, seasonal, injectable, preservative free Cabrera Austin Cresencio Work Phone: VP-Bmnridtmllexd-Q [facility] [address] Work Phone: 08-04-2014 influenza, seasonal, injectable Cabrera Austin Cresencio Work Phone: HM-Nxdkigevjbcfv-P [facility] [address] Work Phone: 08-04-2014 pneumococcal polysaccharide vaccine, 23 valent Cabrera Austin Cresencio Work Phone: HN-Ajjlrqzmcwqvt-S [facility] [address] Work Phone: 08-04-2014 zoster vaccine, live Cabrera Austin Cresencio Work Phone: [facility] [address] Work Phone: Payers Date Payer Category Payer Self-pay [id number] 2013 Unknown 1959 Self-pay [id number] 1959 Unknown [id number] 1950 Unknown [id number] 2.16. [id number] 1951 Unknown [id number] 2.16. [id number] 1951 Unknown [id number] 2.16.84 [id number] 1951 Unknown [id number] 2.16.84 [id number] 1951 Unknown [id number] 2.16.84 [id number] 1951 Unknown [id number] 2.16.84 [id number] 1951 Unknown [id number] 2.16.84 [id number] 1951 Unknown [id number] 2.16.84 [id number] 1951 Unknown [id number] 2.16.84 [id number] 1950 Unknown [id number] 2.16.84 [id number] Unknown [id number] 2.16.84 [id number] Unknown [employer] [id number] Unknown [id number] 2.16.8 [id number] Social History Date Type Detail Facility Former smoker Former smoker [facility] [address] Work Phone: Start: 06-30-2013 End: 04-14-2024 Tobacco smoking status NHIS Ex-smoker [facility] End: 12-12-1992 History of tobacco use Current smoker [facility] End: 12-12-1992 History of tobacco use Cigarette Smoker [facility] Start: 06-30-2013 Tobacco use and exposure Smokeless tobacco non-user [facility] Start: 01-21-2019 Alcohol intake Current non-dr noah of alcohol (finding) [facility] Start: 1950 Sex Assigned At Not on file [facility] Sex Assigned At Sex Assigned At [facility] Other Start: 1950 Sex Assigned At Male F [facility] Medical Equipment Procedure Code Equipment Code [...] & Type Note Facility 04-14-2024 Procedure note [facility] 04-01-2024 Note In light pt LDL 98.8 with noted moderate carotid stenosis and DM will increase statin- he states lipitor 40 mg in past caused myalgias therefore will switch to crestor 40 mg daily, repeat Carotid US to assess stenosis and LFT with lipid level in 3 months- he voiced agreement and understanding to call office for any myalgias or concerns [facility] 04-01-2024 Note [id number]= 6 Continue eliquis anticoagulation. Continue coreg- rate is well controlled and pt remains in Sinus rhythm RTC [address] Espinoza [facility] 04-01-2024 Note Congestive heart martha lure due to NICM Heart failure is stable . NYHA Class II. Continue current treatment regimen. Dietary sodium restriction. Encouraged daily monitoring of the patient's weight. Regular aerobic exercise. Continue current medications. Refer to Cardiology. Heart failure will be reassessed in 6 months. Currently euvolemic without exacerbation [facility] 04-01-2024 Note Remains is sinus rhy thm on ECG today [facility] 04-01-2024 Note Diabetes is uncontro lled A1C 9.6 in December- states that he eats doughnuts most mornings, and that his diet could be better F/U with PCP [facility] 04-01-2024 Note UTP CARDIOLOGY PROGR ESS NOTE HPI: Gadiel Smith is a 73 y.o. male here for Follow-up (7 month follow up ) HPI Cary presents today for known past medical history [...] on 10/15 and he went to the [facility] emergency department was found to be in [...] moist. Eyes: E (more content not included)... [facility] 10-29-2023 Evaluation note Encounter Date Diagnosis Assessment [...] improved w present med increase in dose. [facility] Other 11-03-2023 Evaluation note* Encounter Date Diagnosis Assessment Notes Treatment Notes Treatment Clinical Notes Sep, Anxiety (ICD-10 - F41.9) [facility] 10-31-2023 Evaluation note* Encounter Date Diagnosis Assessment Notes Treatment Notes Treatment Clinical Notes Aug, Anxiety (ICD-10 - F41.9) [facility] 10-09-2023 Evaluation note* Encounter Date Diagnosis [...] from 25mg to 50mg for better results. [facility] Other 09-19-2023 NoteUT Electrophysiology Consult Note [facility] Reason for Consultation: Atrial fibrillation, s/p [...] on 10/15 and he went to the [facility] emergency department was found to be in [...] tablet 3 dapagliflozin (Farx (more content not included)...[facility]09-19-2023 NotePatient here for 2 mo follow up persistent afib and systolic heart failure. Doing great. Denies chest pain, SOB, palpitations, and bleeding on Eliquis. Review of Systems All other systems reviewed and are negative.[facility] 06-05-2023 NotePatient here for follow up ablation. Doing very well. Denies chest pain, SOB, palpitations, and bleeding on Eliquis. Review of Systems All other systems reviewed and are negative.[facility] 06-05-2023 NoteUT Electrophysiology Consult Note [facility] Reason for Consultation: Atrial fibrillation, s/p [...] on 10/15 and he went to the [facility] emergency department was found to be in [...] Lantus Solostar U-100 Insul (more content not included)...[facility]06-22-2023 NoteProblem: Safety - Adult Goal: Free from [...] The clinical goals for the shift include comfortUnAvita Health System06-22-2023 NoteATRIAL FIBRILLATION ABLATION PROCEDURE NOTE DATE OF PROCEDURE: 05/02/2023 PERFORMING PHYSICIAN: Dr. Eliceo Espinoza FILM SORTER: Dr. Louisa Bowers CONSENT: Patient NAME OF [...] insulin, vasovagal syncope. He was diagnosed at [place] emergency department with Chris andrade. He was [...] Coumadin ridge. Esophagus was mapped using the [employer]SOUND 3D mapping software and noted to be [...] the IVC aspect. Anayeli (more content not included)...[facility]06-22-2023 Note Patient: Gadiel Smith Procedure Summary Date: 05/02/23 Room / Location: [facility] HEEL MOLDER 1 EP / [facility] (Cath) Anesthesia Start: 1357 Anesthesia [...] PACU per anesthesia protocol. No notable events documented.[facility]06-22-2023 Note Patient: Gadiel Smith Procedure Summary Date: 05/02/23 Room / Location: [facility] HEEL MOLDER 1 / [facility] (Cath) Anesthesia Start: 1356 Anesthesia [...] uneventful Patient condition is: stable Comments: ECG, VsO7UwrkhwarraAvita Health System06-22-2023 NoteArterial Line: Date/Time: 05/02/2023 1:55 PM An [...] 1 % SubQ, 2 mL Staffing Performed: resident/PUG MILL OPERATOR HELPER/CAA Anesthesiologist: Rony Pretty MD Resident/PUG MILL OPERATOR HELPER: Wallace Atkinson MDLakeHealth TriPoint Medical Center06-22-2023 Note Airway Date/Time: 05/02/2023 2:19 PM Urgency: elective Airway not difficult General Information and Staff Patient location during procedure: OR Anesthesiologist: Rony Pretty MD Resident/PUG MILL OPERATOR HELPER/CAA: Dean Madison DO Performed: resident/PUG MILL OPERATOR HELPER/CAA Indications and Patient Condition Indications for airway [...] approach: 1 Number of other approaches attempted: 0UnAvita Health System 05-02-2023 NotePatient: Gadiel Smith Procedure Information Date/Time: 05/02/23 1230 Procedure: Ablation atrial fibrillation Location: [facility] HEEL MOLDER 1 / [facility] (Cath) Providers: Eliceo Espinoza MD [...] who. Plan discussed with resident. Additional Equipment RequestsLakeHealth TriPoint Medical Center06-20-2023 Note [place] Electrophysiology Consult Note [facility] Date of Telehealth Visit: 04/30/23 The patient was notified that using 3rd constitution party telecommunication application (e.g., Satarii) is not HIPPA compliant and may carry some privacy risks. Yes The visit was conducted tyxo-ac-dbta with the use of audio and video [...] on 10/15 and he went to the [facility] emergency department was found to be in [...] tablet 3 Lantus Solost (more content not included)...[facility] 04-26-2023 NoteProcedure: Multidetector CT thoracic Angiogram performed [...] low as reasonably achievable. Electronically signed: Eulalio Georges.[facility] TriPoint Medical CenterComment on above:Order Comment: Please schedule prior to April [id number] Chief complaint Narrative - Reported* An interactive [...] Patient presents for a follow up visit. LT-Mrvpqqollmldz-KIV [address] Work Phone: [phone] Miscellaneous Notes* Telephone Encounter - Janee Butcher - 07/02/2022 2:37 PM EDT Received Thyroid US report from [facility]. Indexed into chart. documented in this encounter[facility] Chief complaint Narrative - Reported* An [...] follow-up for hypothyroidism, pituitary, and diabetes today. DW-Aaqffuvv-RsicoknCab[facility] [address] Work Phone: Evaluation noteNo [employer] America[employer] Other Evaluation note* Diagnosis Onset Date Resolution Status Bronchitis noneactive Constipation acute Incontinence of feces with fecal urgency acute [facility] Work Phone: History and physical note Author Merly Paul [facility] April 14, 2024 11:26am Note Date/Time April 14, 2024 11:26 am [facility] [address] [place] [address] Gastroenterology H&P Signed Patient: Gadiel Smith MR#: [id number] : 1950 Acct:[id number] Age/Sex: 73 / M Adm Date: 4 Loc: Room: Type: [facility] Attending Dr: Merly Paul DO Copies [...] 04/14/24 1126 [facility] Work Phone: History general Narrative - Reported* Type Description Date Medical History Diabetes mellitus Medical History Hyperlipemia Medical History Acid reflux Medical History Hiatal hernia Medical History Pituitary tumor Surgical History knee surgery Surgical History shoulder surgery Surgical History thyroid nodule removed Hospitalization History hematoma related to fall 2011 Hospitalization History TIA 03/2020 Hospitalization History DEHYDRATION 09/2020 [facility] Other History of Present illness Narrative* This [...] * -Most recent US on 12/2019 in [place], records not available * -Due for US [...] severe hypoglycemia episode to 30s requiring third constitution party assistance. Patient confused during the event. 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 XR-Nlqmtcgs-[facility]edcbgiCab[facility] [address] Work Phone: History of [...] * -Most recent US on 12/2019 in [place], records not available * -Due for US [...] severe hypoglycemia episode to 30s requiring third constitution party assistance. Patient confused during the event. 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 XR-Dbdomsacecsuf-JGY [address] Work Phone: Summary Purpose Family [...] section and content) DATE CREATED AUTHOR 05/07/2018 [facility] DATE CREATED AUTHOR AUTHOR'S ORGANIZ ATION 07/06/2022 [facility] DATE CREATED AUTHOR AUTHOR'S ORGANIZ ATION 10/11/2022 [facility] DATE CREATED AUTHOR AUTHOR'S ORGANIZ ATION 10/11/2022 [employer] DATE CREATED AUTHOR AUTHOR'S ORGANIZ ATION 03/04/2023 [facility] DATE CREATED AUTHOR AUTHOR'S ORGANIZ ATION 03/24/2024 [facility] DATE CREATED AUTHOR AUTHOR'S ORGANIZ ATION 04/21/2024 [facility] DATE CREATED AUTHOR AUTHOR'S ORGANIZ ATION 04/22/2024 [facility] Source Comments (unrecognize d section and content) In the event this informatio n is protected by the Federal Confidentiality of Alcohol and Drug Abuse Patient Records regulations: The Federal rules restrict any use of the information to criminally investigate or prosecute any alcohol or drug abuse patient.[facility] Reason for Visit (unrecogniz ed section and content) Reason Comments Received Outside Medical Records Receive d Thyroid US report from [facility]. Indexed into chart. 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 [employer] provides no warranty or guarantee of the accuracy or completeness of information in this document.
[2024-06-04 13:46] LABS: Estimated Average Glucose 217 mg/dL; Glycohemoglobin A1C 9.2 % (4.5-6.2)
[2024-06-04 13:48] LABS: Alanine Aminotransferase 22 U/L (16-63); Albumin Globulin Ratio 1.1; Albumin Level 4.1 g/dL (3.4-5.0); Alkaline Phosphatase 67 U/L (46-116); Anion Gap 13.8; Aspartate Amino Transferase 18 U/L (15-37); BUN Creatinine Ratio 8.9; Bilirubin Total 1.6 mg/dL (0.2-1.0); Calcium 9.4 mg/dL (8.5-10.1); Carbon Dioxide 26.4 mmol/L (21.0-32.0); Chloride 104 mmol/L (98-107); Chol HDL Ratio 2.6; Cholesterol 153 mg/dL (<=200); Estimated GFR (African America >60 (>=60); Estimated GFR (Non-African Ame >60 (>=60); Globulin 3.7 g/dL; Glucose 183 mg/dL (74-106); HDL Cholesterol 59 mg/dL (40-60); Potassium 4.2 mmol/L (3.5-5.1); Sodium 140 mmol/L (136-145); Total Protein 7.8 g/dL (6.4-8.2); Triglycerides 152 mg/dL (<=150); VLDL CHOLESTEROL 30.4 mg/dL
[2024-06-05 04:07] LABS: Prolactin 6.5 ng/mL (3.6-25.2)
[2024-06-05 11:09] LABS: PTH, Intact 33 pg/mL (15-65)
[2024-06-06 20:11] LABS: Free Testosterone(Direct) 4.5 pg/mL (6.6-18.1); Testosterone 384 ng/dL (264-916)
== END 2024-06-04 12:06 | disposition home or self-care (01) ==
PROVIDERS: PCP Family Medicine
DX: E23.0 Hypopituitarism (principal); E21.3 Hyperparathyroidism, unspecified; E22.1 Hyperprolactinemia; E11.9 Type 2 diabetes mellitus without complications; Z79.4 Long term (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 insulin; E04.1 Nontoxic single thyroid nodule
CPT/HCPCS: 36415; 80053; 80061; 82043; 82533; 82570; 83036; 83970; 84146; 84402; 84403; 84439

== ENCOUNTER 2024-06-05 15:11 | Outpatient (REF) | payer MEDICARE, SELFPAY ==
--- OUTSIDE RECORDS SUMMARY | 2024-06-05 15:19 | XMS_ITS ---
Patient Summarization (C-CDA 2.1 CCD) Created on: June 05, 2024 GADIEL SMITH : 1950 Sex: Male Author Organization Sample organization Care Team Providers Care Associate Vice President Name Role Phone PHYSICIAN, DEFAULT Unavailable Unavailable PHYSICIAN, DEFAULT Unavailable Unavailable PHYSICIAN, DEFAULT Unavailable Unavailable PHYSICIAN, DEFAULT Unavailable Unavailable Cabrera Dupont Unavailable Cabrera Dupont MD Primary Care Provider [phone] Cabrera Dupont Primary Care Unavailab le Hatrossioglleticia, Dr. Mandie Piper Attending Syed Hernandezoglu, Dr. Mandie Piper Referring Unavai lable Self, Referral Referring Unavailable Hatipoglu, Dr. Mandie Piper Attending Syed Dupont, Dr. Cabrera Gaspar Primary Care Unavailab le QUIROZ, DR JOSELUIS Austin Primary Care Unavailable YEARTYTONY Attending Unavailable YEARTYTONY Admitting Unavailable MISC, DR LOZADA Attending Unavailable TOGIAK, DR GEORGIE Erwin Consulting Unavailable QUIROZ, DR JOSELUIS Austin Primary Care Unavailable MISC, DR LOZADA Admitting Unavailable MISC, DR LOZADA Consulting Unavailable ELICEO ESPINOZA Admitting Unavailable QUIROZ, DR JOSELUIS Austin Primary Care Unavailable SHAKIRAELICEO Shephedr Attending Unavailable SHAKIRAELICEO Consulting Unavailable MAUREENJANEE Consulting [...] Unavailable ALEJANDRO ., DR ANGEL Consulting Unavailable OZ, RY Consulting Unavailable Joseluis Quiroz Unavailable RAPHAEL SPRINGER Attending Unavailable MD Joseluis Quiroz Primary Care Provider [phone] DO Merly Paul Attending Provider [phone] ELICEO ESPINOZA Referring Unavailable SHAKIRA, ELICEO Referring Unavailable JANEE REDDY Attending Unavailable JESÚS WHITTINGTON Attending Unavailable JESÚS WHITTINGTON Attending Unavailable SHAKIRA, ELICEO Attending Unavailable SHAKIRA, ELICEO Attending Unavailable ELICEO ESPINOZA Admitting Unavailable Joseluis Quiroz Primary Care Unavailable Merly Paul Admitting Unavailable Merly Paul Attending Unavailable Allergies Allergy Classification Reported Allergen(s) Allergy Type Date of Onset Reaction(s) Facility (2 sources) Lisinopril; Translations: [LISINOPRIL] Drug Allergy 04-28-2015 Other: See Comments [facility] Work Phone: Encounters Encounter Date Encounter Type Care Provider Facility Start: 04-14-2024 Non-patient / Non-visit MD Joseluis Quiroz Work Phone: [facility] Gastroenterology Work Phone: Start: 04-14-2024 End: 04-14-2024 Admission to same day surgery center MD Joseluis Quiroz Work Phone: [facility] Work Phone: Start: 04-14-2024 End: 04-14-2024 ambulatory MD Joseluis Quiroz Work Phone: [facility] Work Phone: Start: 04-01-2024 End: 04-01-2024 ambulatory JANEE REDDY [facility] Start: 03-23-2024 End: 03-23-2024 ambulatory RAPHAEL SPRINGER Not Available Start: 03-18-2024 End: 03-18-2024 Patient encounter procedure MD Joseluis Quiroz Work Phone: [facility] G[facility] Work Phone: Start: 03-06-2024 End: 03-06-2024 Patient encounter procedure MD Joseluis Quiroz Work Phone: [facility] Urgent Care Emanuel Work Phone: Start: 12-23-2023 End: 12-23-2023 ambulatory Joseluis Quiroz Other [employer] Other Start: 12-23-2023 Telephone encounter Joseluis Ellie [facility] Start: 10-29-2023 End: 10-29-2023 ambulatory Joseluis Quiroz Other [employer] Other Start: 10-29-2023 Office outpatient visit 15 minutes Joseluis Quiroz [facility] Start: 10-16-2023 End: 10-16-2023 ambulatory Joseluis Quiroz Other [employer] Other Start: 10-16-2023 Telephone encounter Joseluis Ellie [facility] Start: 09-13-2023 End: 09-13-2023 ambulatory Joseluis Ellie Other [employer] Other Start: 09-13-2023 Telephone encounter Joseluis Ellie [facility] Start: 09-10-2023 End: 09-10-2023 ambulatory Joseluis Ellie Other [employer] Other Start: 09-10-2023 Telephone encounter Joseluis Ellie [facility] Start: 08-19-2023 End: 08-19-2023 ambulatory Joseluis Ellie Other [employer] Other Start: 08-19-2023 Office outpatient visit 15 minutes Joseluis Ellie [facility] Start: 07-31-2023 End: 07-31-2023 ambulatory Joseluis Ellie Other [employer] Other Start: 07-31-2023 Telephone encounter Joseluis Ellie [facility] Start: 07-30-2023 End: 07-30-2023 ambulatory [facility] Start: 06-05-2023 End: 06-05-2023 ambulatory [facility] Start: 05-29-2023 Rx Renewal Cabrera Dupont Work Phone: [facility] [address] Work Phone: Start: 05-02-2023 ambulatory [facility] Start: 05-02-2023 End: 05-03-2023 Evaluation and management of inpatient [facility] Start: 04-30-2023 End: 05-03-2023 ambulatory [facility] Start: 04-26-2023 End: 04-26-2023 ambulatory [facility] Start: 04-08-2023 Rx Renewal Cabrera Dupont Work Phone: [facility] [address] [place] Work Phone: Start: 02-28-2023 End: 03-01-2023 ambulatory ELICEO SHAKIRA Facility:H1 Start: 01-30-[address] JOSELUIS QUIROZ Facil ity:H1 Start: 01-22-2023 AUDIT Cabrera Dupont Work Phone: [facility] Work Phone: Start: 01-22-2023 Rx Renewal Cabrera Dupont Work Phone: [facility] [address] [place] Work Phone: Start: 01-03-2023 End: 01-29-[address] JOSELUIS QUIROZ Facility:H1 Start: 11-28-2022 End: 11-29-2022 ambulatory JANEE REDDY Facility:H1 Start: 11-12-[address] JOSELUIS QUIROZ Facil ity:H1 Start: 11-10-2022 End: 11-10-[address] JEANNE Pierre Facility:H1 Start: 10-15-2022 End: 10-15-[address] RPAHAEL NUNEZ Facility:H1 Start: 10-10-2022 Office outpatient visit 25 minutes Cabrera Dupont Work Phone: PW-Txtwysfcirrhy-IFL [address] Work Phone: Start: 10-10-2022 ambulatory Referral Self Facility: [id number] Start: 09-28-2022 AUDIT Cabrera Dupont Work Phone: [facility] Work Phone: Start: 07-13-2022 Rx Renewal Cabrera Dupont Work Phone: Pharmac[facility] [address] [place] Work Phone: Start: 07-02-2022 Telephone encounter Mandie sun MD Work Phone: Endocrinology Comment on above: Received Outside [employer] Records (Received Thyroid US report from [facility]. Indexed into chart. ) Start: 06-22-2022 End: 06-23-[address] DOCTOR BUSBY Facility:H1 Start: 04-24-2022 Office outpatient visit 40 minutes Cabrera Dupont Work Phone: [facility] [address] Work Phone: Start: 04-24-[address] Cabrera Dupont Facility:[id number] Start: 03-27-2022 AUDIT Cabrera Dupont Work Phone: [facility] Work Phone: Start: 01-23-2022 AUDIT Cabrera Dupont Work Phone: KT-Xlnzyjpecfzmr-Nkasupe [facility] Work Phone: Start: 12-11-2021 Rx Renewal Cabrera Dupont Work Phone: HP-Hawprizaeuaqd-Fcqxsax [facility] Work Phone: Start: 11-08-2021 AUDIT Cabrera Dupont Work Phone: OP-Cesnboaepgzrg-Xrvactq [facility] Work Phone: Start: 08-21-2021 KALPESH Dupont Work Phone: FQ-Brhmkdehnehlg-YLG [address] Work Phone: Start: 05-31-2021 AUDIT Cabrera Dupont Work Phone: IU-Twrnjdfdfxlry-MIN [address] Work Phone: Start: 06-20-2017 End: 06-21-2017 Ambulatory DEFAULT PHYSICIAN Facility:[facility] Medical Equipment Procedure Code Equipment Code Equipment Original Text Equipment Identifier Dates Start: 09-15-2018 Comment on above: Use as instructed USE WITH INSULIN PEN S three times a day Pen Needle, Diabetic (Bd Ultra-Fine Mini Pen Needle) 31 gauge x 3/16 needle Start: 01-07-2024 Goals Date Patient Goal Desired Activity /State Immunizations Immunization Date Immunization Notes Care Provider Fa cammy 08-15-2022 Fluzone High-Dose Quadrivalent 0.7 ML Intramuscular Suspension Prefilled Syringe Cabrera Dupont Work Phone: NM-Vxusgmnuvsqsx-B [facility] [address] Work Phone: 09-06-2021 Fluad Quadrivalent 0 .5 ML Intramuscular Prefilled Syringe Cabrera Dupont Work Phone: UQ-Aomtvqcqndqui-J [facility] [address] Work Phone: 01-18-2021 Neva COVID-19 Vac cine 0.5 ML Intramuscular Suspension Cabrera Dupont Work Phone: ET-Hlhswplmvnhnx-E [facility] [address] Work Phone: 09-08-2020 Fluad Quadrivalent 0 .5 ML Intramuscular Prefilled Syringe Cabrera Dupont Work Phone: HP-Gxfulgpncnkqs-O [facility] [address] Work Phone: 08-24-2020 influenza, seasonal, injectable Cabrera Dupont Work Phone: OS-Vzwdmwjuluhic-F [address] Work Phone: 08-24-2019 Seasonal trivalent influenza vaccine, adjuvanted, preservative free Cabrera Dupont Work Phone: GX-Tivbfflohtvvp-U [facility] [place] [address] Work Phone: 08-04-2018 influenza, injectabl e, quadrivalent, preservative free Cabrera Dupont Work Phone: DE-Jiuakmqqthire-B [address] Work Phone: 07-19-2018 influenza, high dose seasonal, preservative-free Cabrera Dupont Work Phone: IQ-Ljtlmoarryuog-R [facility] [address] Work Phone: 08-21-2017 influenza, high dose seasonal, preservative-free Cabrera Dupont Work Phone: DZ-Zptootgzmywbh-J [facility] [address] Work Phone: 08-12-2017 pneumococcal polysaccharide vaccine, 23 valent Cabrera Dupont Work Phone: CN-Cehgyphivhvzv-D [facility] [address] Work Phone: 08-12-2017 zoster vaccine recombinant Cabrera Dupont Work Phone: JC-Nerfaldbwfujr-G [facility] [address] Work Phone: 08-21-2016 influenza, high dose seasonal, preservative-free Cabrera Dupont Work Phone: VR-Lvjobbutkcixy-I [facility] [place] [address] Work Phone: 2015 influenza, seasonal, injectable, preservative free Cabrera Dupont Work Phone: WT-Mdmclddemvfvg-F [facility] [address] Work Phone: 08-04-2014 influenza, seasonal, injectable Cabrera Austin Cresencio Work Phone: AU-Emwxvhjxmwits-C [facility] [place] Work Phone: 08-04-2014 pneumococcal polysaccharide vaccine, 23 valent Cabrera Dupont Work Phone: DZ-Xnaydiuvolldt-T [facility] [place] [address] Work Phone: 08-04-2014 zoster vaccine, live Cabrera Austin Cresencio Work Phone: FW-Dsvpvmserlppq-J [facility] [place] Work Phone: Medications Current Medications Medication Drug [...] other day for 0 *Pick strength-form from [employer] for eRX* Jul, Active Ocuvite TABS WYATT [...] Start: 07-23-2022 take 1 tablet by woody every twenty-four hours buPROPion HCl ER (XL) 150 MG 1 tablet in the morning Oral Once a day *Pick strength-form from [employer] for eRX* Jul, Active Start: 07-23-2022 take 1 tablet by woody twice daily buPROPion HCl ER (XL) 150MG buPROPion HCl ER (XL) 150MG, 1 (one) Tablet Tablet two times daily # 180, 07/23/2022, Ref. x1. Active Oral two times daily for 0 *Pick strength-form from [employer] for eRX* Jul, Active Start: 04-13-2020 take [...] other day for 0 *Pick strength-form from [employer] for eRX* Jul, Active Comment on above: [...] Note: Source Status: Taking; Refills: 3; Provider: Ellie Austin Start: 08-19-2023 take 1 tablet by [...] as directed for 30 *Pick strength-form from [employer] for eRX* Jul, Active take 1 tablet by woody th once daily as needed Sildenafil Citrate 50 MG 1 tablet as needed Orally daily as directed for 30 days *Pick strength-form from [employer] for eRX* Active spironolactone 25 mg oral [...] Entry Transdermal daily for 0 *Reorder from [employer] for eRx and Interaction Alerts* Jul, Active [...] Mandie Salamanca MD Start : 10-Oct-2022 Active Payers Date Payer Category Payer Self-pay [id number] 2013 Unknown 1959 Self-pay [id number] 1959 Unknown [id number] 1950 Unknown [id number] 2.16. [id number] 1950 Unknown [id number] 2.16. [id number] 1950 Unknown [id number] 2.16.84 [id number] 1950 Unknown [id number] 2.16.84 0.1.301159.3.579.2.593 1950 Unknown [id number] 2.16.84 0.1.090930.3.579.2.593 1950 Unknown [id number] 2.16.84 0.1.281265.3.579.2.593 1950 Unknown [id number] 2.16.84 0.1.009306.3.579.2.593 1950 Unknown [id number] 2.16.84 [id number] 1950 Unknown [id number] 2.16.84 0.1.119876.3.579.2.593 1950 Unknown [id number] 2.16.84 [id number] Unknown [id number] 2.16.84 [id number] Unknown [employer] [id number] Unknown [id number] 2.16.8 [id number] Plan of Treatment Date Care Activity Detail Author Start: 04-14-2024 [facility] Start: 10-10-2022 AMY, Provider: Mandie Salamanca, Status: Pen, Time: 11:15 AM AMY, Provider: Mandie Salamanca, Status: Nick, Time: 11:15 AM [facility] Work Phone: Start: 07-12-2022 Influenza vaccination INFLUENZA (#1) [facility] Start: 04-24-2022 AMY, Provider: Ynes Sahni, Status: Nick, Time: 1:00 PM LEONTOBY, Provider: Ynes Sahni, Status: Pen, Time: 1:00 PM [facility] Work Phone: Start: 11-11-2021 ADVANCE DIRECTIVE DISCUSSION ADVANCE DIRECTIVE DISCUSSION [facility] Start: 07-24-2019 Hemoglobin A1c/Hemoglobin.total in Blood HBA1C [facility] Start: 08-24-2017 Hepatitis B screening URINE ALBUMIN:CREATININE RATIO [facility] Start: 08-24-2017 Hepatitis B surface antibody level LDL CHOLESTEROL [facility] Start: 08-14-2017 3 comp foot exam completed DIABETIC FOOT EXAM [facility] Start: 11-22-2016 Hepatitis C antibody, confirmatory test DILATED RETINAL EXAM [facility] Start: 2016 PNEUMOCOCCAL: 65+ (1 - PCV) PNEUMOCOCCAL: 65+ (1 - PCV) [facility] Start: 2001 SHINGRIX VACCINE (1 of 2) SHINGRIX VACCINE (1 of 2) [facility] Start: 1996 COLOGUARD (FIT-DNA) COLOGUARD (FIT-DNA) [facility] Start: 1996 Colonoscopy COLONOSCOPY [facility] Start: 1996 COLORECTAL CANCER SCREENING COLORECTAL CANCER SCREENING [facility] Start: [address] COLONOGRAPHY [facility] Start: 1996 FECAL OCCULT BLOOD FECAL OCCULT BLOOD [facility] Start: 1996 SIGMOIDOSCOPY SIGMOIDOSCOPY [facility] Start: 1970 Urine microalbumin profile DTAP,TDAP,TD (1 - Tdap) [facility] Start: 1969 HEPATITIS C SCREENING HEPATITIS C SCREENING [facility] Start: 1963 Adult depression screening assessment DEPRESSION SCREENING [facility] Start: 02-08-1951 COVID-19 VACCINE (#1) COVID-19 VACCINE (#1) [facility] Start: 1950 ABDOMINAL AORTIC ANEURYSM SCREENING ABDOMINAL AORTIC ANEURYSM SCREENING [facility] Patient Education Colon polyps Diverticulosis (DC) [facility] Work Phone: XR Abdomen Single view [facility] Problems Active Problems Problem Classification Problem Date [...] sources) Long-term current use of insulin; Translations: [alf (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 insulin] Episodic Other and [...] replacement therapy; Translations: [HORMONE REPLACEMENT THERAPY] Onset: 01-03-2023 Episodic Other aftercare (1 source) Other mcfp (current) drug therapy; Translations: [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 THERAPY] Onset: 11-13-2022 Episodic Other aftercare (1 source) 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; Translations: [CRIPPLE WORKER USE ORAL HYPOGLYCEMIC DX] Onset: 11-13-2022 Episodic Other aftercare (1 source) alf (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 insulin; Translations: [FDC CURRENT USE OF INSULIN] Onset: 11-13-2022 Episodic Other aftercare (1 source) alf (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 aspirin; Translations: [FDC CURRENT USE OF ASPIRIN] Onset: 10-17-2022 Episodic [...] shoulder, initial encounter] Onset: 06-16-2013 06-16-2013 Episodic Procedures Date Procedure Procedure Detail Performing Clinician Start: 04-14-2024 Colonoscopy MD Joseluis Quiroz Work Phone: Appendectomy Cabrera Dupont Work Phone: Arthroscopy of knee Cabrera Dupont Work Phone: Parathyroidectomy Cabrera calderón Work Phone: Vasectomy Cabrera Dupont Work Phone: Results Test Name Value Interpretation Reference Range Facility 36on 04-21-2024 36 Regarding lab result s from 04/16/2024: Janee Reddy, YUN Figueroa MA Let him know liver function is perfect and cholesterol levels also are great- continue all meds and see you next time. Good job!! Spoke with patient's and made her aware. Normal [facility] Capillary blood glucose corey urement by glucometer (mass/volume)Ordered By: Merly Paul on 04-14-2024 Glucose [Mass/Vol] 73 mg/dL Normal [facility] Comment on above: Random Glucose Refer ence Range is dependent on time and content of last meal. Glucose of more than 200 mg/dL in a nonstressed, ambulatory subject supports the diagnosis of Diabetes Mellitus. Result Comment: [place] om Glucose Reference Range is dependent on time and content of last meal. Glucose of more than 200 mg/dL in a nonstressed, ambulatory subject supports the diagnosis of Diabetes Mellitus. PERFORMED BY: [facility] [address] [place] [address] PATHOLOGIST FITTER'S ASSISTANT ANJANA SEWELL M.D. Performed By: #### G URIEL #### Point of Care testing , [facility] 04-14-2024 Specimen: [id number] Received: 04/14/24 Status: MAYO Shi Num: [id number] Spec Type: Surgical Subm Dr: Merly Paul DO Tissues: A Colon Biopsy (CECAL POLYP) B Colon Biopsy (ASC POLYPS) C Colon Biopsy (TRANSV POLYP) D Colon Biopsy (DESC POLYP) Procedures: HE/8, Gross/Micro L4/4 Age/ Patient Sex Location Account Attending Physician Gadiel Smith 73/M [id number] Merly Paul DO SPEC NUM: [id number] RECD: 04/14/24 STATUS: MAYO SHI NUM: [id number] DIONICIO: 04/14/24- SUBM DR: Merly Paul DO ENTERED: 04/14/[address] [facility] [address]: Joseluis Quiroz MD SPEC TYPE: [...] adenoma Clinical Information Diarrhea, constipation ---- Specimen: [id number] Received: 04/14/24 Status: MAYO Shi Num: [id number] Spec Type: Surgical Subm Dr: Merly Paul, DO Tissues: A Colon Biopsy (CECAL POLYP) B Colon Biopsy (ASC POLYPS) C Colon Biopsy (TRANSV POLYP) D Colon Biopsy (DESC POLYP) Procedures: , Gross/Micro L4/4 ---- Patient: Gadiel Smith [id number] (Continued) ---- Specimen: [id number] Received: 04/14/24 (Continued) Signed (signature on file) Suki Jackson MD 04/16/24 1330 ---- Specimen: [id number] Received: 04/14/24 Status: MAYO Chatterjeeumberto Num: [id number] Spec Type: Surgical Subm Dr: Merly Paul DO Tissues: A Colon Biopsy (CECAL POLYP) B Colon Biopsy (ASC POLYPS) C Colon Biopsy (TRANSV POLYP) D Colon Biopsy (DESC POLYP) Procedures: /Claribel, Gross/Micro L4/4 ---- Patient: Gadiel Smith [id number] (Continued) ---- Specimen: [id number] Received: 04/14/24 (Continued) Gross Description Received are [...] mucosal tissue fragment, entirely submitted in D1. [facility] Codes 24023X3 ---- ---- Specimen: [id number] Received: 04/14/24 Status: MAYO Shi Num: [id number] Spec Type: Surgical Subm Dr: Merly Paul DO Tissues: A Colon Biopsy (CECAL POLYP) B Colon Biopsy (ASC POLYPS) C Colon Biopsy (TRANSV POLYP) D Colon Biopsy (DESC POLYP) Procedures: HE/Claribel, Gross/Micro L4/4 ---- Patient: Gadiel Smith [id number] (Continued) ---- Signed (signature on file) Suik Jackson MD 04/16/24 1330 Normal [facility] Office Visiton 04-01-2024 Follow-up visit [id number] Gadiel Smith 1950 M Date Provider Department Center 04/01/2024 Jo-Ann-JANEE REDDY Family History Problem Relation Age of Onset [...] Paternal Grandmother Paternal Grandfather Other Level of Service:61852 RI OFFICE/OUTPATIENT ESTABLISHED MOD MDM 30 MIN Reason for Visit and Comments: Follow-up [108237] - 7 month follow up [facility] Office Visiton 07-30-2023 Follow-up visit [id number] Gadiel Smith 1950 M Date Provider Department Center 07/30/2023 Uriah6-JESÚS WHITTINGTON Family History Problem Relation Age of Onset [...] Paternal Grandmother Paternal Grandfather Other Level of Service:11423 RI OFFICE/OUTPATIENT ESTABLISHED MOD MDM 30-39 MIN Normal [facility] Follow-Upon 06-05-2023 Follow-Up [id number] Gadiel Smith 1950 M Date Provider Department Center 06/05/2023 Uriah6-JESÚS WHITTINGTON [facility] Family History Problem Relation Age [...] Paternal Grandmother Paternal Grandfather Other Level of Service:76194 RI OFFICE/OUTPATIENT ESTABLISHED MOD MDM 30-39 MIN Normal [facility] Telephoneon 05-30-2023 Telephone [id number] Gadiel Smith 1950 M Date Provider Department [place] 05/30/2023 Farideh-MARLEY MORALES [facility] [...] 3 week post ablation f/u [Other] Normal [facility] Telephone [id number] Gadiel Smith 1950 M Date Provider Department Center 05/30/2023 FaridehMARLEY MORALES [facility] VASC [facility] OR [facility] Family History Problem Relation Age of [...] Grandfather Paternal Grandmother Paternal Grandfather Other Normal [facility] Telephoneon 05-10-2023 Telephone [id number] aGdiel Smith 1950 M Date Provider Department Center 05/10/2023 Farideh-MARLEY MORALES [facility] VAS LAB OR [facility] Family History Problem Relation Age of [...] Comments: week f/u post ablation [Other] Normal [facility] BASIC METABOLIC PANELon 04-12 Anion gap [Moles/Vol] 9 mmol/L Normal - [facility] Comment on above: Performed By: #### L AB15 #### [facility] ([facility]) [address] [place] [address] Calcium [Mass/Vol] 8.9 mg/dL Normal 8.6-10.3 [facility] Comment on above: Performed By: #### L AB15 #### [facility] ([facility]) [address] [place] [address] Chloride [Moles/Vol] 104 mmol/L Normal 98-107 [facility] Comment on above: Performed By: #### L AB15 #### [facility] ([facility]) [address] [place] [address] CO2 [Moles/Vol] 28 mmol/L Normal 21-31 [facility] Comment on above: Performed By: #### L AB15 #### [facility] ([facility]) [address] [place] [address] Creatinine [Mass/Vol] 0.79 mg/dL Normal 0.70-1.30 [facility] Comment on above: Performed By: #### L AB15 #### [facility] ([facility]) [address] [place] [address] GLOMERULAR FILTRATION RATE ML/MIN/1.73 SQ M.PREDICTED 95.0 mL/min/1.73m*2 Normal >60.0 [facility] Comment on above: Result Comment: [facility]???s estimated glomerular filtration rate (eGFR) [...] AB15 #### [facility] ([facility]) [address] [place] [address] Glucose [Mass/Vol] 176 mg/dL High 70-100 [facility] Comment on above: Performed By: #### L AB15 #### [facility] ([facility]) [address] [place] [address] Potassium [Moles/Vol] 3.6 mmol/L Normal 3.5-5.1 [facility] Comment on above: Performed By: #### L AB15 #### [facility] ([facility]) [address] [place] [address] Sodium [Moles/Vol] 137 mmol/L Normal 136-145 [facility] Comment on above: Performed By: #### L AB15 #### [facility] ([facility]) [address] [place] [address] Urea nitrogen [Mass/Vol] 11 mg/dL Normal 7-25 [facility] Comment on above: Performed By: #### L [id number] #### [facility] ([facility]) [address] [place] [address] UREA NITROGEN/CREATININE (MASS RATIO) IN SER/PLAS 13.9 Normal [facility] Comment on above: Performed By: #### L [id number] #### [facility] ([facility]) [address] [place] [address] CBCon 05-03-2023 Erythrocyte distribution width (RBC) [Ratio] 12.8 % Normal 11.5-15.0 [facility] Comment on above: Performed By: #### L [id number] #### [facility] ([facility]) [address] [place] [address] ERYTHROCYTE MEAN CORPUSCULAR HEMOGLOBIN CONCENTRATION (G/DL) BY AUTOMATED 32.1 g/dL Normal 32.0-35.0 [facility] Comment on above: Performed By: #### L [id number] #### [facility] ([facility]) [address] [place] [address] Hematocrit (Bld) [Volume fraction] 39.3 % Normal 39.0-55.0 [facility] Comment on above: Performed By: #### L [id number] #### [facility] ([facility]) [address] [place] [address] Hemoglobin (Bld) [Mass/Vol] 12.6 g/dL Low 13.0-17.0 [facility] Comment on above: Performed By: #### L [id number] #### [facility] ([facility]) [address] [place] [address] MCH (RBC) [Entitic mass] 29.9 pg Normal 27.0-33.0 [facility] Comment on above: Performed By: #### L [id number] #### [facility] ([facility]) [address] [place] [address] MCV (RBC) [Entitic vol] 93.3 fL Normal 82.0-98.0 [facility] Comment on above: Performed By: #### L [id number] #### [facility] ([facility]) [address] [place] [address] PLATELETS (10*3/UL) IN BLOOD AUTOMATED COUNT 179 10*3/uL Normal 150-400 [facility] Comment on above: Performed By: #### L [id number] #### [facility] ([facility]) [address] [place] [address] RBC (Bld) [#/Vol] 4.21 10*6/uL Normal 4.20-5.70 [facility] Comment on above: Performed By: #### L [id number] #### [facility] ([facility]) [address] [place] [address] WBC (Bld) [#/Vol] 8.32 10*3/uL Normal 4.00-10.60 [facility] Comment on above: Performed By: #### L [id number] #### [facility] ([facility]) [address] [place] [address] DSon 05-03-2023 DS -- Attestation signed by [...] Your Medications These medications were sent to [facility]/pharmacy #[id number] [place] [id number] famotidine 20 mg tablet sucralfate 1 gram [...] II, HTN, vasovagal syncope who presented to [facility] for an elective a.fib ablation on 05/02/2023. [...] he will (more content not included)... Normal [facility] POCT GLUCOSE METER UNSOLICIT ED RESULTSon 05-03-2023 Glucose [Mass/Vol] 176 mg/dL High 70-105 [facility] Comment on above: Order Comment: Waive d Testing in the ED is performed under the ED CLIA certificate #[id number]. Result Comment: libia dou2 Performed By: #### L [id number] #### [facility] ([facility]) [address] [place] [address] Glucose [Mass/Vol] 289 mg/dL High 70-105 [facility] Comment on above: Order Comment: Waive d Testing in the ED is performed under the ED CLIA certificate #[id number]. Result Comment: libia dou2 Performed By: #### L [id number] ####[facility] ([facility])[address] [place] [address] HPon 05-02-2023 -- Attestation signed by Eliceo [...] there are no changes to the H&P. [facility] NURSNOTEon 05-02-2023 LENNY went home for t he evening. Will call with room number when patient gets a bed. [facility] POCT GLUCOSE METER UNSOLICIT ED RESULTSon 05-02-2023 Glucose [Mass/Vol] 198 mg/dL High 70-105 [facility] Comment on above: Order Comment: Waive d Testing in the ED is performed under the ED CLIA certificate #[id number]. Result Comment: aepp ink Performed By: #### L [id number] #### [facility] ([facility]) [address] [place] [address] Glucose [Mass/Vol] 108 mg/dL High 70-105 [facility] Comment on above: Order Comment: Waive d Testing in the ED is performed under the ED CLIA certificate #[id number]. Result Comment: mwer nert Performed By: #### L [id number] #### [facility] ([facility]) [address] [place] [address] Glucose [Mass/Vol] 113 mg/dL High 70-105 [facility] Comment on above: Order Comment: Waive d Testing in the ED is performed under the ED CLIA certificate #[id number]. Result Comment: lwag enh Performed By: #### L [id number] #### [facility] ([facility]) [address] [place] [address] Glucose [Mass/Vol] 125 mg/dL High 70-105 [facility] Comment on above: Order Comment: Waive d Testing in the ED is performed under the ED CLIA certificate #[id number]. Result Comment: [email or web address] Performed By: #### L [id number] ####[facility] ([facility])[address] [facility] [place] [address] PROTIME-INRon 05-02-2023 INR IN PPP BY COAGULATION ASSAY 0.98 Normal 0.90-1.10 [facility] Comment on above: Result Comment: [...] RANGE. CHEST 1995;108:231S-246S. Performed By: #### L [id number] #### [facility] ([facility]) [address] [place] [address] PROTHROMBIN TIME (PT) IN PPP BY COAGULATION ASSAY 12.9 Seconds Normal 12.3-14.8 [facility] Comment on above: Performed By: #### L [id number] #### [facility] ([facility]) [address] [place] [address] HPon 04-30-2023 [facility] Electrophysiology Consult Note [facility] Date of Telehealth Visit: 04/30/23 The patient was notified that using 3rd green party telecommunication application (e.g., [employer]) is not HIPPA compliant and may carry some privacy risks. Yes The visit was conducted [id number] with the use of audio and video [...] on 10/15 and he went to the [facility] emergency department was found to [...] Lantus Solost (more content not included)... Normal [facility] Telemedicineon 04-30-2023 Telemedicine [id number] Gadiel Smith Geovanna 1950 M Date Provider Department Center 04/30/2023 ELICEO FORTE RO [facility] Family History Problem Relation Age [...] Paternal Grandmother Paternal Grandfather Other Level of Service:37[address] RI PHYS/QHP TELEPHONE EVALUATION 11-20 MIN Normal [facility] [id number] 04-26-2023 [id number] Nothing to eat or drink after midnight Hold MVI, Herbal Supplements, NSAIDS x 7 days Hold the prescription meds we spoke about: ELIQUIS 48 HRS PRIOR TO PROCEDURE Take the meds we spoke about w/a sip of water DOS: LANTUS, SYNTHROID, AMIODARONE, COREG, WELBUTRIN, NEXIUM Normal [facility] B-TYPE NATRIURETIC PEPTIDEon 04-26-2023 Natriuretic peptide B (Bld) [Mass/Vol] 87 pg/mL Normal 0-100 [facility] Comment on above: Performed By: #### L [id number] #### [facility] ([facility]) [address] [place] [address] CBC WITH AUTO DIFFERENTIALon 04-26-2023 Basophils (Bld) [#/Vol] 0.04 10*3/uL Normal 0.00-0.20 [facility] Comment on above: Performed By: #### L [id number] #### [facility] ([facility]) [address] [place] [address] Basophils/100 WBC (Bld) 0.6 % Normal 0.0-1.0 [facility] Comment on above: Performed By: #### L [id number] #### [facility] ([facility]) [address] [place] [address] Eosinophils (Bld) [#/Vol] 0.21 10*3/uL Normal 0.00-0.50 [facility] Comment on above: Performed By: #### L [id number] #### [facility] ([facility]) [address] [place] [address] Eosinophils/100 WBC (Bld) 3.2 % Normal 0.0-6.0 [facility] Comment on above: Performed By: #### L [id number] #### [facility] ([facility]) [address] [place] [address] Erythrocyte distribution width (RBC) [Ratio] 13.2 % Normal 11.5-15.0 [facility] Comment on above: Performed By: #### L [id number] #### [facility]) [address] [place] [address] ERYTHROCYTE MEAN CORPUSCULAR HEMOGLOBIN CONCENTRATION (G/DL) BY AUTOMATED 33.6 g/dL Normal 32.0-35.0 [facility] Comment on above: Performed By: #### L [id number] #### [facility] ([facility]) [address] [place] [address] Hematocrit (Bld) [Volume fraction] 39.9 % Normal 39.0-55.0 [facility] Comment on above: Performed By: #### L [id number] #### [facility] ([facility]) [address] [place] [address] Hemoglobin (Bld) [Mass/Vol] 13.4 g/dL Normal 13.0-17.0 [facility] Comment on above: Performed By: #### L [id number] #### [facility] ([facility]) [address] [place] [address] Immature granulocytes (Bld) [#/Vol] 0.09 10*3/uL Normal 0.00-0.20 [facility] Comment on above: Performed By: #### L [id number] #### [facility] ([facility]) [address] [place] [address] Immature granulocytes/100 WBC (Bld) 1.4 % High 0.0-1.0 [facility] Comment on above: Performed By: #### L [id number] #### [facility] ([facility]) [address] [place] [address] Lymphocytes (Bld) [#/Vol] 1.30 10*3/uL Normal 1.20-4.00 [facility] Comment on above: Performed By: #### L [id number] #### [facility] ([facility]) [address] [place] [address] Lymphocytes/100 WBC (Bld) 19.9 % Low 20.0-45.0 [facility] Comment on above: Performed By: #### L [id number] #### [facility] ([facility]) [address] [place] [address] MCH (RBC) [Entitic mass] 30.8 pg Normal 27.0-33.0 [facility] Comment on above: Performed By: #### L [id number] #### [facility] ([facility]) [address] [place] [address] MCV (RBC) [Entitic vol] 91.7 fL Normal 82.0-98.0 [facility] Comment on above: Performed By: #### L [id number] #### [facility] ([facility]) [address] [place] [address] Monocytes (Bld) [#/Vol] 0.77 10*3/uL Normal 0.10-1.00 [facility] Comment on above: Performed By: #### L [id number] #### [facility] ([facility]) [address] [place] [address] Monocytes/100 WBC (Bld) 11.8 % Normal 5.0-12.0 [facility] Comment on above: Performed By: #### L [id number] #### [facility] ([facility]) [address] [place] [address] Neutrophils (Bld) [#/Vol] 4.12 10*3/uL Normal 1.60-7.60 [facility] Comment on above: Performed By: #### L [id number] #### [facility] ([facility]) [address] [place] [address] Neutrophils/100 WBC (Bld) 63.1 % Normal 40.0-72.0 [facility] Comment on above: Performed By: #### L [id number] #### [facility] ([facility]) [address] [place] [address] NRBC (PER 100 WBCS) BY AUTOMATED COUNT 0.0 % Normal 0 [facility] Comment on above: Performed By: #### L [id number] #### [facility] ([facility]) [address] [place] [address] PLATELETS (10*3/UL) IN BLOOD AUTOMATED COUNT 183 10*3/uL Normal 150-400 [facility] Comment on above: Performed By: #### L [id number] #### [facility] ([facility]) [address] [place] [address] RBC (Bld) [#/Vol] 4.35 10*6/uL Normal 4.20-5.70 [facility] Comment on above: Performed By: #### L [id number] #### [facility] ([facility]) [address] [place] [address] WBC (Bld) [#/Vol] 6.53 10*3/uL Normal 4.00-10.60 [facility] Comment on above: Performed By: #### L [id number] #### [facility] ([facility]) [address] [place] [address] COMPREHENSIVE METABOLIC PANE Harlan 04-26-2023 Albumin [Mass/Vol] 4.1 g/dL Normal 3.5-5.7 [facility] Comment on above: Performed By: #### L [id number] #### [facility] ([facility]) [address] [place] [address] ALP [Catalytic activity/Vol] 57 U/L Normal 34-104 [facility] Comment on above: Performed By: #### L [id number] #### [facility] ([facility]) [address] [place] [address] ALT [Catalytic activity/Vol] 42 U/L Normal 7-52 [facility] Comment on above: Performed By: #### L [id number] #### [facility] ([facility]) [address] [place] [address] Anion gap [Moles/Vol] 13 mmol/L Normal 7-20 [facility] Comment on above: Performed By: #### L [id number] #### [facility] ([facility]) [address] [place] [address] AST [Catalytic activity/Vol] 29 U/L Normal 13-39 [facility] Comment on above: Performed By: #### L [id number] #### [facility] ([facility]) [address] [place] [address] Bilirubin [Mass/Vol] 0.9 mg/dL Normal 0.3-1.0 [facility] Comment on above: Performed By: #### L [id number] #### [facility] ([facility]) [address] [place] [address] Calcium [Mass/Vol] 9.2 mg/dL Normal 8.6-10.3 [facility] Comment on above: Performed By: #### L [id number] #### [facility] ([facility]) [address] [place] [address] Chloride [Moles/Vol] 106 mmol/L Normal 98-107 [facility] Comment on above: Performed By: #### L [id number] #### [facility] ([facility]) [address] [place] [address] CO2 [Moles/Vol] 23 mmol/L Normal 21-31 [facility] Comment on above: Performed By: #### L [id number] #### [facility] ([facility]) [address] [place] [address] Creatinine [Mass/Vol] 1.11 mg/dL Normal 0.70-1.30 [facility] Comment on above: Performed By: #### L [id number] #### [facility] ([facility]) [address] [place] [address] GLOMERULAR FILTRATION RATE ML/MIN/1.73 SQ M.PREDICTED 71.0 mL/min/1.73m*2 Normal >60.0 [facility] Comment on above: Result Comment: [facility]???s estimated glomerular filtration rate (eGFR) [...] individuals. Performed By: #### L [id number] #### [facility] ([facility]) [address] [place] [address] Glucose [Mass/Vol] 224 mg/dL High 70-100 [facility] Comment on above: Performed By: #### L [id number] #### [facility] ([facility]) [address] [place] [address] Potassium [Moles/Vol] 4.2 mmol/L Normal 3.5-5.1 [facility] Comment on above: Performed By: #### L [id number] #### [facility] ([facility]) [address] [place] [address] Protein [Mass/Vol] 6.9 g/dL Normal 6.0-8.3 [facility] Comment on above: Performed By: #### L [id number] #### [facility] ([facility]) [address] [place] [address] Sodium [Moles/Vol] 138 mmol/L Normal 136-145 [facility] Comment on above: Performed By: #### L [id number] #### [facility] ([facility]) [address] [place] [address] Urea nitrogen [Mass/Vol] 22 mg/dL Normal 7-25 [facility] Comment on above: Performed By: #### L [id number] #### [facility] ([facility]) [address] [place] [address] UREA NITROGEN/CREATININE (MASS RATIO) IN SER/PLAS 19.8 Normal [facility] Comment on above: Performed By: #### L [id number] #### [facility] ([facility]) [address] [place] [address] MAGNESIUMon 04-26-2023 Magnesium [Mass/Vol] 1.9 mg/dL Normal 1.9-2.7 [facility] Comment on above: Performed By: #### L [id number] #### [facility] ([facility]) [address] [place] [address] Orders Onlyon 04-26-2023 Orders Only [id number] Gadiel Smith 1950 M Date Provider Department Center 04/26/2023 [id number]-TLBNFLTONY ADHIKARI RO [facility] Family History Problem Relation Age [...] Grandfather Paternal Grandmother Paternal Grandfather Other Normal [facility] Orders Only [id number] Gadiel Smith 1950 Date Provider Department [place] 04/26/2023 JANEE JAIME RO [facility] Family History Problem Relation [...] Grandfather Paternal Grandmother Paternal Grandfather Other Normal [facility] Orders Only [id number] Gadiel Smith 1950 [facility] Provider Department [place] 04/26/2023 JESÚS SIMPSON RO [facility] Family History Problem Relation [...] Grandfather Paternal Grandmother Paternal Grandfather Other Normal [facility] PROTIME-INRon 04-26-2023 INR IN PPP BY COAGULATION ASSAY 1.27 High 0.90-1.10 [facility] Comment on above: Result Comment: [facility] P RECOMMENDED INR FOR WARFARIN THERAPY CONDITION [...] 1995;108:231S-246S. Performed By: #### L [id number] #### [facility] ([facility]) [address] [place] [address] PROTHROMBIN TIME (PT) IN PPP BY COAGULATION ASSAY 15.9 Seconds High 12.3-14.8 [facility] Comment on above: Performed By: #### L [id number] #### [facility] ([facility]) [address] [place] [address] ECHOCARDIO M/2D COMPLETEon 0 02-28-2023 ECHOCARDIO M/2D COMPLETE Patient: GADIEL SMITH Exam Date: 02/28/2023 : 1950 Gender:M Ordering : ELICEO MoniqueIgnacio ESPINOZA Admission #: [id number] Family : DR JOSELUIS QUIROZ M.D. Order #: [id number] CLICK HERE TO VIEW EXAM ECHOCARDIOGRAM REPORT [...] Left Atrium LA Volume Index (2D A2C): 75269 mm3 Left Atrium Systolic Dimension: 4.90 cm [...] Patten M.D. on 02/28/2023 at 20:13 Normal [facility] PROF 14(COMP METB)on 023 Albumin [Mass/Vol] 3.7 g/dL Normal 3.4-5.0 [facility] Comment on above: Performed By: #### C MP #### [facility] [address] [place] [address] Dr. Esme Jackson Albumin/Globulin [Mass ratio] 1.1 {ratio} Normal [facility] Comment on above: Performed By: #### C MP #### [facility] [address] [place] [address] Dr. Esme Jackson ALP [Catalytic activity/Vol] 65 U/L Normal 46-116 [facility] Comment on above: Performed By: #### C MP #### [facility] [address] [place] [address] [address] Esme Jackson ALT [Catalytic activity/Vol] 26 U/L Normal 16-63 [facility] Comment on above: Performed By: #### C MP #### [facility] [address] [address] [address] Esme Jackson Anion gap [Moles/Vol] 10.8 mmol/L Normal [facility] Comment on above: Performed By: #### C MP #### [facility] [address] [address] [address] Esme Jackson AST [Catalytic activity/Vol] 16 U/L Normal 15-37 [facility] Comment on above: Performed By: #### C MP #### [facility] [address] [place] [address] Dr. Esme Jackson Bilirubin [Mass/Vol] 1.1 mg/dL Critically high 0.2-1.0 [facility] Comment on above: Performed By: #### C MP #### [facility] [address] [place] [address] Dr. Esme Jackson Calcium [Mass/Vol] 9.4 mg/dL Normal 8.5-10.1 [facility] Comment on above: Performed By: #### C MP #### [facility] [address] [place] [address] Dr. Esme Jackson Chloride [Moles/Vol] 103 mmol/L Normal 98-107 [facility] Comment on above: Performed By: #### C MP #### [facility] [address] [place] [address] Dr. Esme Jackson CO2 [Moles/Vol] 28.5 mmol/L Normal 21.0-32.0 [facility] [place] [facility] Comment on above: Performed By: #### C MP #### [facility] [address] [place] [address] Dr. Esme Jackson Creatinine [Mass/Vol] 1.07 mg/dL Normal 0.70-1.30 [facility] Comment on above: Performed By: #### C MP #### [facility] [address] [place] [address] Dr. Esme Jackson EGFR-AF KOSOVAN >60 Normal >=60 [facility] [place] [facility] Comment on above: Performed By: #### C MP #### [facility] [address] [place] [address] Dr. Esme Jackson EGFR-NON AF KOSOVAN >60 Normal >=60 [facility] Comment on above: Performed By: #### C MP #### [facility] [address] [place] [address] Dr. Esme Jackson Globulin (S) [Mass/Vol] 3.5 g/dL Normal [facility] Comment on above: Performed By: #### C MP #### [facility] [address] [place] [address] Dr. Esme Jackson Glucose [Mass/Vol] 190 mg/dL Critically high 74-106 [facility] Comment on above: Performed By: #### C MP #### [facility] [address] [place] [address] Dr. Esme Jackson Potassium [Moles/Vol] 5.3 mmol/L Critically high 3.5-5.1 [facility] Comment on above: Performed By: #### C MP #### [facility] [address] [place] [address] Dr. Esme Jackson Protein [Mass/Vol] 7.2 g/dL Normal 6.4-8.2 [facility] Comment on above: Performed By: #### C MP #### [facility] [address] [place] [address] Dr. Esme Jackson Sodium [Moles/Vol] 137 mmol/L Normal 136-145 [facility] Comment on above: Performed By: #### C MP #### [facility] [address] [place] [address] Dr. Esme Jackson Urea nitrogen [Mass/Vol] 14.0 mg/dL Normal 7.0-18.0 [facility] Comment on above: Performed By: #### C MP #### [facility] [address] [place] [address] Dr. Esme Jackson Urea nitrogen/Creatinine [Mass ratio] 13.1 mg/mg Normal [facility] Comment on above: Performed By: #### C MP #### [facility] [address] [place] [address] Dr. Esme Jackson BNPon 11-10-2022 Natriuretic peptide B (Bld) [Mass/Vol] 6259.0 pg/mL Critically high <=900.0 [facility] Comment on above: Performed By: #### B TRAINING FACILITATOR, BMP, HSTROPN #### [facility] [address] [place] [address] Dr. Esme Jackson CBC AUTO DIFFon 11-10-2022 BASO # 0.0 103/ul Normal 0.0-0.1 [facility] Comment on above: Performed By: #### C BC #### [facility] [address] [place] [address] Dr. Esme Jackson Basophils/100 WBC (Bld) 0.5 % Normal 0.2-2.0 [facility] Comment on above: Performed By: #### C BC #### [facility] [address] [place] [address] Dr. Esme Jackson EO # 0.3 103/ul Normal 0.0-0.7 [facility] Comment on above: Performed By: #### C BC #### [facility] [address] [place] [address] Dr. Esme Jackson Eosinophils/100 WBC (Bld) 3.6 % Normal 0.9-7.0 [facility] Comment on above: Performed By: #### C BC #### [facility] [address] [place] [address] Dr. Esme Jackson Erythrocyte distribution width (RBC) [Ratio] 14.8 % Normal 11.0-15.0 [facility] Comment on above: Performed By: #### C BC #### [facility] [address] [place] [address] Dr. Esme Jackson Hematocrit (Bld) [Volume fraction] 36.9 % Critically low 42.0-54.0 [facility] Comment on above: Performed By: #### C BC #### [facility] [address] [place] [address] Dr. Esme Jackson Hemoglobin (Bld) [Mass/Vol] 12.0 g/dL Critically low 14.0-18.0 [facility] Comment on above: Performed By: #### C BC #### [facility] [address] [place] [address] Dr. Esme Jackson IG # 0.04 10e3/ul Critically high 0.00-0.03 [facility] Comment on above: Performed By: #### C BC #### [facility] [address] [place] [address] Dr. Esme Jackson IG % 0.5 % Normal 0.0-0.5 [facility] Comment on above: Performed By: #### C BC #### [facility] [address] [place] [address] Dr. Esme Jackson LYMPH # 1.3 103/ul Normal 1.2-3.8 [facility] Comment on above: Performed By: #### C BC #### [facility] [address] [place] [address] Dr. Esme Jackson Lymphocytes/100 WBC (Bld) 18.2 % Critically low 20.5-60.0 [facility] Comment on above: Performed By: #### C BC #### [facility] [address] [place] [address] Dr. Esme Jackson MANUAL DIFF REQ NO Normal [facility] Comment on above: Performed By: #### C BC #### [facility] [address] [place] [address] Dr. Esme Jackson MCH (RBC) [Entitic mass] 28.0 pg Normal 25.9-34.0 [facility] Comment on above: Performed By: #### C BC #### [facility] [address] [place] [address] Dr. Esme Jackson MCHC (RBC) [Mass/Vol] 32.5 g/dL Normal 29.9-35.2 [facility] Comment on above: Performed By: #### C BC #### [facility] [address] [place] [address] Dr. Esme Jackson MCV (RBC) [Entitic vol] 86.0 fL Normal 80.0-94.0 [facility] Comment on above: Performed By: #### C BC #### [facility] [address] [place] [address] Dr. Esme Jackson MONO # 0.5 103/ul Normal 0.3-0.8 [facility] Comment on above: Performed By: #### C BC #### [facility] [address] [place] [address] Dr. Esme Jackson Monocytes/100 WBC (Bld) 7.3 % Normal 1.7-12.0 [facility] Comment on above: Performed By: #### C BC #### [facility] [address] [place] [address] Dr. Esme Jackson NEUT # 5.1 103/ul Normal 1.4-6.5 [facility] Comment on above: Performed By: #### C BC #### [facility] [address] [place] [address] Dr. Esme Jackson Neutrophils/100 WBC (Bld) 69.9 % Normal 43.0-75.0 [facility] Comment on above: Performed By: #### C BC #### [facility] [address] [place], [place] [address] Dr. Esme Jackson Platelet mean volume (Bld) [Entitic vol] 10.3 fL Normal 9.5-13.5 [facility] Comment on above: Performed By: #### C BC #### [facility] [address] [address] [address] Esme Jackson PLT 220 103/ul Normal 150-450 [facility] Comment on above: Performed By: #### C BC #### [facility] [address] [address] [address] Esme Jackson RBC 4.29 106/ul Critically low 4.70-6.10 [facility] Comment on above: Performed By: #### C BC #### [facility] [address] [address] [address] Esme Jackson WBC 7.3 103/ul Normal 4.0-11.0 [facility] Comment on above: Performed By: #### C BC #### [facility] [address] [address] [address] Esme Jackson Covid-19 PCR ([facility])on 10-13 SARS-CoV-2 (COVID-19) RNA HANSA+probe Ql (Unsp spec) Not detected Normal NOT DETECTED [facility] Comment on above: Result Comment: [...] for this test is supported by the Senior Director Of Strategy of Health and Human Service's declaration that [...] used). Performed By: #### C VDTBH #### [facility] [address] [place] [address] Dr. Esme Jackson INFLUENZA A AND B AGon 11-10 [facility] SEE BELOW Normal [facility] Comment on above: Result Comment: Nega tive for Flu A protein angiten. Infection due to Flu A cannot be ruled out. Flu A angiten in the sample may be below the detection limit of the test. Performed By: #### F T4 #### [facility] [address] [place] [address] Dr. Esme Jackson INFLUBNEG SEE BELOW Normal [facility] Comment on above: Result Comment: Nega tive for Flu B protein antigen. Infection due to Flu B cannot be ruled out. Flu B antigen in the sample may be below the detection limit of the test. Performed By: #### F T4 #### [facility] [address] [place] [address] Dr. Esme Jackson INFLUENZA A AG Negative Normal NEGATIVE SEE COMMENT [facility] Comment on above: Performed By: #### F T4 #### [facility] [address] [place] [address] Dr. Esme Jackson INFLUENZA B AG Negative Normal NEGATIVE SEE COMMENT [facility] Comment on above: Performed By: #### F T4 #### [facility] [address] [place] [address] Dr. Esme Jackson PROF CHEM 8 (BAS METB)on Anion gap [Moles/Vol] 13.9 mmol/L Normal [facility] Comment on above: Performed By: #### B TRAINING FACILITATOR, BMP, HSTROPN #### [facility] [address] [place] [address] Dr. Esme Jackson Calcium [Mass/Vol] 8.7 mg/dL Normal 8.5-10.1 [facility] Comment on above: Performed By: #### B TRAINING FACILITATOR, BMP, HSTROPN #### [facility] [address] [place] [address] Dr. Esme Jackson Chloride [Moles/Vol] 104 mmol/L Normal 98-107 [facility] Comment on above: Performed By: #### B TRAINING FACILITATOR, BMP, HSTROPN #### [facility] [address] [address] [address] Esme Jackson CO2 [Moles/Vol] 25.2 mmol/L Normal 21.0-32.0 [facility] [place] [facility] Comment on above: Performed By: #### B TRAINING FACILITATOR, BMP, HSTROPN #### [facility] [address] [address] [address] Esme Jackson Creatinine [Mass/Vol] 1.04 mg/dL Normal 0.70-1.30 [facility] Comment on above: Performed By: #### B TRAINING FACILITATOR, BMP, HSTROPN #### [facility] [address] [address] [address] Esme Jackson EGFR-AF KOSOVAN >60 Normal >=60 [facility] [place] [facility] Comment on above: Performed By: #### B TRAINING FACILITATOR, BMP, HSTROPN #### [facility] [address] [address] [address] Esme Jackson EGFR-NON AF KOSOVAN >60 Normal >=60 [facility] Comment on above: Performed By: #### B TRAINING FACILITATOR, BMP, HSTROPN #### [facility] [address] [address] [address] Esme Jackson Glucose [Mass/Vol] 199 mg/dL Critically high 74-106 [facility] Comment on above: Performed By: #### B TRAINING FACILITATOR, BMP, HSTROPN #### [facility] [address] [address] [address] Esme Jackson Potassium [Moles/Vol] 4.1 mmol/L Normal 3.5-5.1 [facility] Comment on above: Performed By: #### B TRAINING FACILITATOR, BMP, HSTROPN #### [facility] [address] [address] [address] Esme Jackson Sodium [Moles/Vol] 139 mmol/L Normal 136-145 [facility] Comment on above: Performed By: #### B TRAINING FACILITATOR, BMP, HSTROPN #### [facility] [address] [place], [place] [address] Dr. Esme Jackson Urea nitrogen [Mass/Vol] 18.0 mg/dL Normal 7.0-18.0 [facility] Comment on above: Performed By: #### B TRAINING FACILITATOR, BMP, HSTROPN #### [facility] [address] [place], [place] [address] Dr. Esme Jackson Urea nitrogen/Creatinine [Mass ratio] 17.3 mg/mg Normal [facility] Comment on above: Performed By: #### B TRAINING FACILITATOR, BMP, HSTROPN #### [facility] [address] [address] [address] Esme Jackson TROPONIN, HIGH SENSITIVITYon 11-10-2022 HSTROP 35.5 pg/mL Normal 4.0-76.1 [facility] Comment on above: Result Comment: CUT- OFF POINTS HAVE BEEN ESTABLISHED BASED ON THE FOURTH UNIVERSAL DEFINITIONS OF MYOCARDIAL INFARCTION. THE UPPER REFERENCE LIMIT (URL) OF TROPONIN, DEFINED THE 99TH PERCENTILE OF cTnI DISTRIBUTION IN A REFERENCE POPULATION, HAS BEEN CONFIRMED THE DECISION THRESHOLD FOR PA DIAGNOSIS. Performed By: #### B TRAINING FACILITATOR, BMP, HSTROPN #### [facility] [address] [address] [address] Esme Jackson XR CHEST 1 Von [...] structures are stable. Electronically authenticated by: RY RAYMONDH Date: 2022-11-10 09:24 Normal [facility] Covid-19 PCR ([facility])on SARS-CoV-2 (COVID-19) RNA HANSA+probe Ql (Unsp spec) Not detected Normal NOT DETECTED [facility] Comment on above: Result Comment: [...] for this test is supported by the [place] of Health and Human Service's declaration that [...] used). Performed By: #### C VDTB #### [facility] [address] [place] [address] Dr. Esme Jackson INFLUENZA A AND B [facility] 10-15 [facility] SEE BELOW Normal [facility] Comment on above: Result Comment: Nega tive for Flu A protein angiten. Infection due to Flu A cannot be ruled out. Flu A angiten in the sample may be below the detection limit of the test. Performed By: #### F T4 #### [facility] [address] [place] [address] Dr. Esme Jackson [facility] SEE BELOW Normal [facility] Comment on above: Result Comment: Nega tive for Flu B protein antigen. Infection due to Flu B cannot be ruled out. Flu B antigen in the sample may be below the detection limit of the test. Performed By: #### F T4 #### [facility] [address] [place] [address] Dr. Esme Jackson INFLUENZA A AG Negative Normal NEGATIVE SEE COMMENT [facility] Comment on above: Performed By: #### F T4 #### [facility] [address] [place] [address] Dr. Esme Jackson INFLUENZA B AG Negative Normal NEGATIVE SEE COMMENT [facility] Comment on above: Performed By: #### F T4 #### [facility] [address] [place], [place] [address] Dr. Emse Jackson INTERNAL CONTROLS Within Normal Limits Normal Wi thin Normal Limits [facility] Comment on above: Performed By: #### F T4 #### [facility] [address] [place], [place] [address] Dr. Esme Jackson XR CHEST 2 Von [...] RAPHAEL NUNEZ Date: 2022-10-15 10:08 Normal [facility] Follow Up (Endocrinology)on 10-10-2022 Follow [...] insulin; CATIE = N; Verified Transmission to [id number]; Last Updated By: Veronique Pierre; 10/10/2022 11:29:03 AM Albumin, Urine Spot; Status:Active; Requested for:10Oct2022; Perform:Lab Services - Lab To Draw (Non-Blood Test); Due:[id number];Ordered; For:Central hypothyroidism, Hyperlipemia, Hypogonadism male, Pituitary macroadenoma, Thyroid nodule, Type 2 diabetes mellitus with other specified complication, with long-term current use of insulin; Ordered By:Mandie Salamanca; Brain Natriuretic Peptide BNP; Status:Active; Requested for:10Oct2022; Perform:Lab Services - Lab To Draw (Blood Test); Due:[id number];Ordered; For:Central hypothyroidism, Hyperlipemia, Hypogonadism male, Pituitary macroadenoma, Thyroid nodule, Type 2 diabetes mellitus with other specified complication, with long-term current use of insulin; Ordered By:Mandie Salamanca; Complete Blood Count + Differential; Status:Active; Requested for:10Oct2022; Perform:Lab Services - Lab To Draw (Blood Test); Due:[id number];Ordered; For:Central hypothyroidism, Hyperlipemia, Hypogonadism male, Pituitary macroadenoma, Thyroid nodule, Type 2 diabetes mellitus with other specified complication, with long-term current use of insulin; Ordered By:Mandie Salamanca; Comprehensive Metabolic Panel; Status:Active; Requested for:10Oct2022; Perform:Lab Services - Lab To Draw (Blood Test); Due:[id number];Ordered; For:Central hypothyroidism, Hyperlipemia, Hypogonadism male, Pituitary macroadenoma, Thyroid nodule, Type 2 diabetes mellitus with other specified complication, with long-term current use of insulin; Ordered By:Mandie Salamanca; Cortisol, Unspecified; Status:Active; Requested for:10Oct2022; Perform:Lab Services - Lab To Draw (Blood Test); Due:[id number];Ordered; For:Central hypothyroidism, Hyperlipemia, Hypogonadism male, Pituitary macroadenoma, Thyroid nodule, Type 2 diabetes mellitus with other specified complication, with long-term current use of insulin; Ordered By:Mandie Salamanca; Hemoglobin A1C; Status:Active; Requested for:10Oct2022; Perform:Lab Services - Lab To Draw (Blood Test); Due:[id number];Ordered; For:Central hypothyroidism, Hyperlipemia, Hypogonadism male, Pituitary macroadenoma, Thyroid nodule, Type 2 diabetes mellitus with other specified complication, with long-term current use of insulin; Ordered By:Mandie Salamanca; Lipid Panel; Status:Active; Requested for:10Oct2022; Perform:Lab Services - Lab To Draw (Blood Test); Due:[id number];Ordered; For:Central hypothyroidism, Hyperlipemia, Hypogonadism male, Pituitary macroadenoma, [...] 2 (more content not included)... Normal [employer] Claribel 07-02-2022 ARPITA Telephone (ENDOMN) LUISGADIEL ([id number]) 1950 M Date Time Provider Department 07/02/22 MANDIE SALAMANCA During your visit today, we recorded the following information about you: Janee Butcher 07/02/2022 2:40 PM Signed Received Thyroid US report from [facility]. Indexed into chart. Allergies As of Date: 07/02/2022 Noted Allergy Reaction LISINOPRIL 04/28/2015 14 - Other: See Comments Comments: Fatigue Date Reviewed: 01/21/2019 Reviewed by: Maricruz Allison Ma - Fully Assessed Reason for Visit: Received Outside Medical Records [[id number]] Cmt: Received Thyroid US report from [facility]. Indexed into chart. Prescriptions as [...] LANCETS) lancets Use as instructed - Insulin [place], Disposable, (BD ULTRAFINE III MINI PEN) 31 [...] Status:Closed by JANEE BUTCHER on 07/02/22 Normal [facility] CORTISOL Bri 06-25-2022 Cortisol AM 19.6 ug/dL Critically high 6.2-19.4 [facility] Comment on above: Performed By: #### C ORTAM #### [facility] [address] [address] [address] Esme Jackson MICROALBUMIN URINEon 022 Albumin, Urine 36.5 ug/mL Normal Not Estab. [facility] Comment on above: Performed By: #### F T4 #### [facility] [address] [place], [place] [address] Dr. Esme Jackson FREE T4on 06-22-2022 Free T4 [Mass/Vol] 1.22 ng/dL Normal 0.76-1.46 [facility] Comment on above: Performed By: #### F T4 #### [facility] [address] [address] [address] Esme Jackson GLYCOHEMOGLOBIN A1Con 2021 ADA RECOMMENDATION SEE BELOW Normal [facility] Comment on above: Result Comment: ADA RECOMMENDED LIMIT 4.0 - 6.0 ADA THERAPEUTIC TARGET < 7.0 ACTION SUGGESTED > 7.0 Performed By: #### F T4 #### [facility] [address] [address] [address] Esme Jackson Glucose [Mass/Vol] 194 mg/dL Normal [facility] Comment on above: Performed By: #### F T4 #### [facility] [address] [address] [address] Esme Jackson HbA1c (Bld) [Mass fraction] 8.4 % Critically high 4.5-6.2 [facility] Comment on above: Performed By: #### F T4 #### [facility] [address] [address] [address] Esme Jackson LIPID PROFILEon 06-22-2022 CHOL-HDL RATIO NORM SEE BELOW Normal [facility] Comment on above: Result Comment: 3.3 - 4.4 LOW RISK 4.4 - 7.1 AVERAGE RISK 7.1 - 11.0 MODERATE RISK >11.0 HIGH RISK Performed By: #### F T4 #### [facility] [address] [address] [address] Esme Jackson Cholesterol [Mass/Vol] 153 mg/dL Normal <=200 [facility] Comment on above: Performed By: #### F T4 #### [facility] [address] [address] [address] Esme Jackson Cholesterol in HDL [Mass/Vol] 55 mg/dL Normal 40-60 [facility] Comment on above: Performed By: #### F T4 #### [facility] [address] [address] [address] Esme Jackson Cholesterol in LDL [Mass/Vol] 82.2 mg/dL Normal [facility] Comment on above: Performed By: #### F T4 #### [facility] [address] [address] [address] Esme Jackson Cholesterol.total/Ch olesterol in HDL [Mass ratio] 2.8 {ratio} Normal [facility] Comment on above: Performed By: #### F T4 #### [facility] [address] [address] [address] Esme Jackson HDL NORMAL > or = 60 mg/dl - LO W CARDIOVASCULAR RISK <40 mg/dl - HIGH CARDIOVASCULAR RISK Normal [facility] Comment on above: Performed By: #### F T4 #### [facility] [address] [address] [address] Esme Jackson LDL CALC NORMAL SEE BELOW Normal [facility] Comment on above: Result Comment: <100 mg/dl OPTIMAL 100 - 129 mg/dl NEAR OR ABOVE OPTIMAL 130 - 159 mg/dl BORDERLINE HIGH 160 - 189 mg/dl HIGH >190 mg/dl VERY HIGH Performed By: #### F T4 #### [facility] [address] [address] [address] Esme Jackson Triglyceride [Mass/Vol] 79 mg/dL Normal <=150 [facility] Comment on above: Performed By: #### F T4 #### [facility] [address] [address] [address] Esme Jackson VLDL CALC 15.8 mg/dL Normal [facility] Comment on above: Performed By: #### F T4 #### [facility] [address] [address] [address] Esme Jackson PROF 14(COMP METB)on 022 Albumin [Mass/Vol] 3.9 g/dL Normal 3.4-5.0 [facility] Comment on above: Performed By: #### F T4 #### [facility] [address] [place] [address] Dr. Esme Jackson Albumin/Globulin [Mass ratio] 1.1 {ratio} Normal [facility] Comment on above: Performed By: #### F T4 #### [facility] [address] [address] [address] Esme Jackson ALP [Catalytic activity/Vol] 57 U/L Normal 46-116 [facility] Comment on above: Performed By: #### F T4 #### [facility] [address] [address] [address] Esme Jackson ALT [Catalytic activity/Vol] 22 U/L Normal 16-63 [facility] Comment on above: Performed By: #### F T4 #### [facility] [address] [address] [address] Esme Jackson Anion gap [Moles/Vol] 12.6 mmol/L Normal [facility] Comment on above: Performed By: #### F T4 #### [facility] [address] [address] [address] Esme Jackson AST [Catalytic activity/Vol] 18 U/L Normal 15-37 [facility] Comment on above: Performed By: #### F T4 #### [facility] [address] [place] [address] Dr. Esme Jackson Bilirubin [Mass/Vol] 1.1 mg/dL Critically high 0.2-1.0 [facility] Comment on above: Performed By: #### F T4 #### [facility] [address] [place] [address] Dr. Esme Jackson Calcium [Mass/Vol] 9.0 mg/dL Normal 8.5-10.1 [facility] Comment on above: Performed By: #### F T4 #### [facility] [address] [place] [address] Dr. Esme Jackson Chloride [Moles/Vol] 103 mmol/L Normal 98-107 [facility] Comment on above: Performed By: #### F T4 #### [facility] [address] [address] [address] Esme Jackson CO2 [Moles/Vol] 27.2 mmol/L Normal 21.0-32.0 [facility] [place] [facility] Comment on above: Performed By: #### F T4 #### [facility] [address] [address] [address] Esme Jackson Creatinine [Mass/Vol] 0.90 mg/dL Normal 0.70-1.30 [facility] Comment on above: Performed By: #### F T4 #### [facility] [address] [address] [address] Esme Jackson EGFR-AF KOSOVAN >60 Normal >=60 [facility] [place] [facility] Comment on above: Performed By: #### F T4 #### [facility] [address] [address] [address] Esme Jackson EGFR-NON AF KOSOVAN >60 Normal >=60 [facility] Comment on above: Performed By: #### F T4 #### [facility] [address] [address] [address] Esme Jackson Globulin (S) [Mass/Vol] 3.4 g/dL Normal [facility] Comment on above: Performed By: #### F T4 #### [facility] [address] [place] [address] Dr. Esme Jackson Glucose [Mass/Vol] 185 mg/dL Critically high 74-106 [facility] Comment on above: Performed By: #### F T4 #### [facility] [address] [place] [address] Dr. Esme Jackson Potassium [Moles/Vol] 3.8 mmol/L Normal 3.5-5.1 [facility] Comment on above: Performed By: #### F T4 #### [facility] [address] [place] [address] Dr. Esme Jackson Protein [Mass/Vol] 7.3 g/dL Normal 6.4-8.2 The [facility] Comment on above: Performed By: #### F T4 #### [facility] [address] [place] [address] Dr. Esme Jackson Sodium [Moles/Vol] 139 mmol/L Normal 136-145 [facility] Comment on above: Performed By: #### F T4 #### [facility] [address] [place] [address] Dr. Esme Jackson Urea nitrogen [Mass/Vol] 12.0 mg/dL Normal 7.0-18.0 [facility] Comment on above: Performed By: #### F T4 #### [facility] [address] [place] [address] Dr. Esme Jackson Urea nitrogen/Creatinine [Mass ratio] 13.3 mg/mg Normal [facility] Comment on above: Performed By: #### F T4 #### [facility] [address] [place], [place] [address] Dr. Esme Jackson US THYROIDon 06-22-2022 US [...] nodules. 1 year follow-up recommended TI-RADS: The [employer] TI-RADS committee's white paper recommendations for thyroid lesions classified as TR5 (highly suspicious) are listed below: > 0.5 cm. Annual ultrasound follow-up for up to 5 years. > 1.0 cm. FNA. J. Am Dionicio Radiol 2017;14:587-595. Electronically authenticated by: GEORGIE DAVIES Date: 2022-06-22 17:28 Normal The [facility] Follow Up (Endocrinology)on 04-24-2022 Follow Up (Endocrinology) [...] Thyroid; Status:Hold For - Scheduling; Requested for:24Apr2022; Perform:[facility]; Due:23Jul2022;Ordered; For:Central hypothyroidism, [...] nodule; CATIE = N; Verified Transmission to [email or web address]; Last Updated By: [employer]; 04/24/2022 10:33:22 AM Hypogonadism male, Pituitary macroadenoma Renew: Testosterone 50 MG/5GM (1%) Transdermal Gel; APPLY 1 PACKET ONE TIME DAILY DIRECTED Rx By: Mandie Salamanca; Dispense: 0 Days ; #:90 X 5 GM Package; Refill: 1;For: Hypogonadism male, Pituitary macroadenoma; CATIE = N; Verified Transmission to [email or web address]; Last Updated By: [employer]; 04/24/2022 10:33:21 AM Pituitary macroadenoma Renew: Cabergoline 0.5 MG Oral Tablet; Take 1 tablet every other day Rx By: Mandie Salamanca; Dispense: 80 Days ; #:40 Tablet; Refill: 3;For: Pituitary macroadenoma; CATIE = N; Verified Transmission to [email or web address]; Last Updated By: Chun [employer]; 04/24/2022 10:33:26 AM Type 2 diabetes mellitus with other specified complication, with long-term current use of insulin Renew: Accu-Chek Alicia Plus In Vitro Strip; TEST TWICE DAILY Rx B (more content not included)... Normal [employer] Tobacco Screening.on 022 Adult depression screening assessment No [facility] [address] Work Phone: Fall risk assessment a) No falls within the last year [facility] [address] Work Phone: Tobacco use status CPHS b) No [facility] [address] Work Phone: Social History Date Type Detail Facility Start: 01-21-2019 Alcohol intake Current non-dr hog man of alcohol (finding) [facility] [place] Start: 06-30-2013 End: 04-14-2024 Tobacco smoking status NHIS Ex-smoker [facility] [place] Start: 06-30-2013 Tobacco use and exposure Smokeless tobacco non-user [facility] [place] Start: 1950 Sex Assigned At Not on file C [facility] Start: 1950 Sex Assigned At Male F [facility] Former smoker Former smoker [facility] [address] Work Phone: End: 12-12-1992 History of tobacco use Current smoker [facility] [place] End: 12-12-1992 History of tobacco use Cigarette Smoker [facility] [place] Sex Assigned At Sex Assigned At [facility] [employer] Other Vital Signs Date Time Vital Sign Value Performing Clinician Facility 04-14-2024 12:35-0400 Diastolic blood pressure 63 mm[Hg] MD Joseluis Quiroz Work Phone: [facility] 04-14-2024 12:35-0400 Heart rate 54 /min MD Joseluis Quiroz Work Phone: [facility] 04-14-2024 12:35-0400 Respiratory rate 18 /min MD Joseluis Quiroz Work Phone: [facility] 04-14-2024 12:35-0400 SaO2% (BldA) [Mass fraction] 99 % MD Joseluis Quiroz Work Phone: [facility] 04-14-2024 12:35-0400 Systolic blood pressure 125 mm[Hg] MD Joseluis Quiroz Work Phone: [facility] 04-14-2024 11:02-0400 Body height 182.88 cm MD Joseluis Quiroz Work Phone: [facility] 04-14-2024 11:02-0400 Body weight 86.18 kg MD Joseluis Quiroz Work Phone: [facility] 03-18-2024 10:35-0400 Body height 182.88 cm MD Joseluis Quiroz Work Phone: [facility] 03-18-2024 10:35-0400 Body mass index (BMI) [Ratio] 25.7 kg/m2 MD Joseluis Quiroz Work Phone: [facility] 03-18-2024 10:35-0400 Body weight 86.18 kg MD Joseluis Quiroz Work Phone: [facility] 03-06-2024 10:52-0400 Body height 182.88 cm MD Joseluis Quiroz Work Phone: [facility] 03-06-2024 10:52-0400 Body mass index (BMI) [Ratio] 26.9 kg/m2 MD Joseluis Quiroz Work Phone: [facility] 03-06-2024 10:52-0400 Body temperature 99.2 [degF] MD Joseluis Quiroz Work Phone: [facility] 03-06-2024 10:52-0400 Body weight 89.98 kg MD Joseluis Quiroz Work Phone: [facility] 03-06-2024 10:52-0400 Diastolic blood pressure 60 mm[Hg] MD Joseluis Quiroz Work Phone: [facility] 03-06-2024 10:52-0400 Heart rate 69 /min MD Joseluis Quiroz Work Phone: [facility] 03-06-2024 10:52-0400 Respiratory rate 18 /min MD Joseluis Quiroz Work Phone: [facility] 03-06-2024 10:52-0400 SaO2% (BldA) [Mass fraction] 95 % MD Joseluis Quiroz Work Phone: [facility] 03-06-2024 10:52-0400 Systolic blood pressure 127 mm[Hg] MD Joseluis Quiroz Work Phone: [facility] 10-29-2023 13:30-0500 Body height 182.88 cm Joseluis Quiroz Other [facility] [employer] Other 10-29-2023 13:30-0500 Body mass index (BMI) [Ratio] 26.09 kg/m2 Joseluis Quiroz Other [facility] [employer] Other 10-29-2023 13:30-0500 Body weight 87.27 kg Joseluis Quiroz Other [employer] Other 10-29-2023 13:30-0500 Diastolic blood pressure 72 mm[Hg] Joseluis Quiroz Other [employer] Other 10-29-2023 13:30-0500 SaO2% (BldA) [Mass fraction] 93 % Joseluis Quiroz Other [employer] Other 10-29-2023 13:30-0500 Systolic blood pressure 130 mm[Hg] Joseluis Quiroz Other [employer] Other 08-19-2023 11:00-0400 Body height 182.88 cm Joseluis Ellie Other [employer] Other 08-19-2023 11:00-0400 Body mass index (BMI) [Ratio] 25.36 kg/m2 Joseluis Quiroz Other [employer] Other 08-19-2023 11:00-0400 Body weight 84.82 kg Joseluis Ellie Other [employer] Other 08-19-2023 11:00-0400 Diastolic blood pressure 61 mm[Hg] Joseluis Ellie Other [employer] Other 08-19-2023 11:00-0400 Systolic blood pressure 126 mm[Hg] Joseluis Quiroz Other [employer] Other Clinical Notes 04-24-2022 to 04-14-2024 Note Date & Type Note Facility 04-14-2024 Procedure note [facility] 04-01-2024 Note In light pt LDL 98.8 with noted moderate carotid stenosis and DM will increase statin- he states lipitor 40 mg in past caused myalgias therefore will switch to crestor 40 mg daily, repeat Carotid US to assess stenosis and LFT with lipid level in 3 months- he voiced agreement and understanding to call office for any myalgias or concerns [facility] 04-01-2024 Note [id number]= 6 Continue eliquis anticoagulation. Continue coreg- rate is well controlled and pt remains in Sinus rhythm RTC [address] Espinoza [facility] 04-01-2024 Note Congestive heart martha lure due to NICM Heart failure is stable . NYHA Class II. Continue current treatment regimen. Dietary sodium restriction. Encouraged daily monitoring of the patient's weight. Regular aerobic exercise. Continue current medications. Refer to Cardiology. Heart failure will be reassessed in 6 months. Currently euvolemic without exacerbation [facility] 04-01-2024 Note Remains is sinus rhy thm on ECG today [facility] 04-01-2024 Note Diabetes is uncontro lled A1C 9.6 in December- states that he eats doughnuts most mornings, and that his diet could be better F/U with PCP [facility] 04-01-2024 Note UTP CARDIOLOGY PROGR ESS NOTE [...] on 10/15 and he went to the [facility] emergency department was found to [...] moist. Eyes: E (more content not included)... [facility] 10-29-2023 Evaluation note Encounter Date Diagnosis Assessment [...] improved w present med increase in dose. [employer] Other 11-03-2023 Evaluation note* Encounter Date Diagnosis Assessment Notes Treatment Notes Treatment Clinical Notes Sep, Anxiety (ICD-10 - F41.9) [employer] Other 10-31-2023 Evaluation note* Encounter Date Diagnosis Assessment Notes Treatment Notes Treatment Clinical Notes Aug, Anxiety (ICD-10 - F41.9) [employer] Other 10-09-2023 Evaluation note* Encounter Date Diagnosis [...] from 25mg to 50mg for better results. [employer] Other 09-19-2023 NoteUT Electrophysiology Consult Note [facility] Reason for Consultation: Atrial fibrillation, s/p PVI/CTI [...] on 10/15 and he went to the [facility] emergency department was found to [...] tablet 3 dapagliflozin (Farx (more content not included)...[facility]09-19-2023 NotePatient here for 2 mo follow up persistent afib and systolic heart failure. Doing great. Denies chest pain, SOB, palpitations, and bleeding on Eliquis. Review of Systems All other systems reviewed and are negative.[facility] 06-05-2023 NotePatient here for follow up ablation. Doing very well. Denies chest pain, SOB, palpitations, and bleeding on Eliquis. Review of Systems All other systems reviewed and are negative.[facility] 06-05-2023 NoteUT Electrophysiology Consult Note [facility] Reason for Consultation: Atrial fibrillation, s/p PVI/CTI [...] on 10/15 and he went to the [facility] emergency department was found to [...] Lantus Solostar U-100 Insul (more content not included)...[facility]06-22-2023 NoteProblem: Safety - Adult Goal: Free from [...] The clinical goals for the shift include comfortHolmes County [facility]06-22-2023 NoteATRIAL FIBRILLATION ABLATION PROCEDURE NOTE DATE OF PROCEDURE: 05/02/2023 PERFORMING PHYSICIAN: Dr. Eliceo Espinoza DESKTOP SUPPORT CONSULTANT: Dr. Louisa Bowers CONSENT: Patient NAME OF [...] insulin, vasovagal syncope. He was diagnosed at [place] emergency department with Chris andrade. He was [...] Coumadin ridge. Esophagus was mapped using the [employer] 3D mapping software and noted to be [...] the IVC aspect. Anayeli (more content not included)...[facility]06-22-2023 Note Patient: Gadiel Smith Procedure Summary Date: 05/02/23 Room / Location: [facility] DIRECTOR OF MARKETING AND PROMOTIONS 1 / [facility] (Cath) Anesthesia Start: 135 Anesthesia Stop: 1710 Procedure: Ablation atrial fibrillation [...] PACU per anesthesia protocol. No notable events documented.[facility] Note Patient: Gadiel Smith Procedure Summary Date: 05/02/23 Room / Location: [facility] DIRECTOR OF MARKETING AND PROMOTIONS 1 / [facility] (Cath) Anesthesia Start: 1356 [...] uneventful Patient condition is: stable Comments: ECG, [id number] NoteArterial Line: Date/Time: 05/02/2023 1:55 PM [...] 1 % SubQ, 2 mL Staffing Performed: resident/LENS BLOCKER/CAA Anesthesiologist: Rony Pretty MD Resident/LENS BLOCKER: Wallace Atkinson MDHolmes County [facility]06-22-2023 Note Airway Date/Time: 05/02/2023 2:19 PM Urgency: elective Airway not difficult General Information and Staff Patient location during procedure: OR Anesthesiologist: Rony Pretty MD Resident/LENS BLOCKER/CAA: Dean Madison DO Performed: resident/LENS BLOCKER/CAA Indications and Patient Condition Indications for airway [...] approach: 1 Number of other approaches attempted: 0UnBlanchard [facility] Health [facility] 05-02-2023 NotePatient: Gadiel Smith Procedure Information Date/Time: 05/02/23 1230 Procedure: Ablation atrial fibrillation Location: [facility] DIRECTOR OF MARKETING AND PROMOTIONS 1 / [facility] (Cath) Providers: Eliceo Espinoza [...] who. Plan discussed with resident. Additional Equipment RequestsHolmes County Joel [facility]06-20-2023 Note OR Electrophysiology Consult Note [facility] Date of Telehealth Visit: 04/30/23 The patient was notified that using 3rd green party telecommunication application (e.g., [employer]) is not HIPPA compliant and may carry some privacy risks. Yes The visit was conducted [id number] with the use of audio and video [...] on 10/15 and he went to the [facility] emergency department was found to [...] tablet 3 Lantus Solost (more content not included)...[facility] 04-26-2023 NoteProcedure: Multidetector CT thoracic [...] low as reasonably achievable. Electronically signed: Eulalio Georges.[facility] HospitalComment on above:Order Comment: Please schedule prior to April [id number] Chief complaint Narrative - Reported* An interactive [...] Patient presents for a follow up visit. CB-Fyhrnftxuayla-[facility] [address] Work Phone: [phone]) 168-426808-22-2022 Miscellaneous Notes* Telephone Encounter - Janee Butcher - 07/02/2022 2:37 PM EDT Received Thyroid US report from [facility]. Indexed into chart. documented in this encounterKing[facility] [place] Chief complaint Narrative - Reported* An interactive [...] follow-up for hypothyroidism, pituitary, and diabetes today. [facility] [address] Work Phone: Evaluation noteNo [email or web address] Other Evaluation note* Diagnosis Onset Date Resolution Status Bronchitis noneactive Constipation acute Incontinence of feces with fecal urgency acute [facility] Work Phone: History and physical note Author Merly Paul [facility] April 14, 2024 11:26am Note Date/Time April 14, 2024 11:26 am [facility] [address] [place] [address] Gastroenterology H&P Signed Patient: Gaidel Smith MR#: [id number] : 1950 Acct:[id number] Age/Sex: 73 / M Adm Date: 4 Loc: Room: Type: [facility] Attending Dr: Merly Paul DO Copies to: [...] signed by Merly Paul DO> 04/14/24 1126 [facility] Work Phone: History general Narrative - Reported* Type Description Date Medical History Diabetes mellitus Medical History Hyperlipemia Medical History Acid reflux Medical History Hiatal hernia Medical History Pituitary tumor Surgical History knee surgery Surgical History shoulder surgery Surgical History thyroid nodule removed Hospitalization History hematoma related to fall 2011 Hospitalization History TIA 03/2020 Hospitalization History DEHYDRATION 09/2020 [employer] Other History of Present illness Narrative* This [...] * -Most recent US on 12/2019 in [place], records not available * -Due for US [...] on file * Occupational History * Occupation: [employer] * Employer: [employer] * Comment: retired * Tobacco Use * Smoking status: Former Smoker * Years: 16.00 * Quit date: 12/12/1992 * Years since quittin.1 * Smokeless tobacco: Never Used * Substance and Sexual Activity * Alcohol use: No * Drug use: No * Sexual activity: Not on file * Other Topics * Concerns: * Not on file * Social History Narrative * resides in [place] 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 [facility]jbowu-[facility]id[facility]ke[facility] [address] Work Phone: History of [...] * -Most recent US on 12/2019 in [place], records not available * -Due for US [...] on file * Occupational History * Occupation: [employer] * Employer: [employer] * Comment: retired * Tobacco Use * Smoking status: Former Smoker * Years: 16.00 * Quit date: 12/12/1992 * Years since quittin.1 * Smokeless tobacco: Never Used * Substance and Sexual Activity * Alcohol use: No * Drug use: No * Sexual activity: Not on file * Other Topics * Concerns: * Not on file * Social History Narrative * resides in [place] 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 PI-Hrtrcorrsynmw-RMW [address] [address] Work Phone: Summary Purpose Family History [...] section and content) DATE CREATED AUTHOR 05/07/2018 [facility] DATE CREATED AUTHOR AUTHOR'S ORGANIZ ATION 07/06/2022 [facility] [place] DATE CREATED AUTHOR AUTHOR'S ORGANIZ ATION 10/11/2022 [facility] DATE CREATED AUTHOR AUTHOR'S ORGANIZ ATION 10/11/2022 [employer] DATE CREATED AUTHOR AUTHOR'S ORGANIZ ATION 03/04/2023 [facility] p[facility] DATE CREATED AUTHOR AUTHOR'S ORGANIZ ATION 03/24/2024 [facility] EPIC DATE CREATED AUTHOR AUTHOR'S ORGANIZ ATION 04/21/2024 [facility] DATE CREATED AUTHOR AUTHOR'S ORGANIZ ATION 04/22/2024 [facility] y[facility] Source Comments (unrecognize d section and content) In the event this informatio n is protected by the Federal Confidentiality of Alcohol and Drug Abuse Patient Records regulations: The Federal rules restrict any use of the information to criminally investigate or prosecute any alcohol or drug abuse patient.[facility] [place] Reason for Visit (unrecogniz ed section and content) Reason Comments Received Outside Medical Records Receive d Thyroid US report from [facility]. Indexed into chart. Care Teams (unrecognized sec tion and content) Associate Vice President Relationship Specialty Start Date End Date Cabrera [...] BE BASED ON THE PRIMARY CLINICAL RECORDS. [employer] provides no warranty or guarantee of the accuracy or completeness of information in this document.
[2024-06-05 15:40] LABS: Creatinine Urine Random 73.45 mg/dL (20.00-300.00); Microalbum Creatinine Ratio Ur 77.6 mg/g (0.0-29.9); Microalbumin Urine Random 5.7 mg/dL (<=30.0)
== END 2024-06-05 15:12 | disposition home or self-care (01) ==
LOC: LAB 15:11
PROVIDERS: PCP Family Medicine
DX: E23.0 Hypopituitarism (principal); E21.3 Hyperparathyroidism, unspecified; E22.1 Hyperprolactinemia; E11.9 Type 2 diabetes mellitus without complications; Z79.4 Long term (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 insulin
CPT/HCPCS: 82043; 82570

== ENCOUNTER 2024-06-09 13:17 | Outpatient (OUT) | payer MEDICARE, SELFPAY ==
--- NOTE | 2024-06-09 13:25 | MR_ITS ---
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 FINDINGS: The cerebral sulci as well as ventricular system are appropriate for age. There is no restricted diffusion. Hyperintensities on T2 and FLAIR images in the marisela and vigil radiata and centrum semiovale with sparing of U fibers are nonspecific, statistically most likely consistent with moderate microvascular ischemic changes. 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 No other abnormality of the pituitary gland is noted. The pituitary stalk is deviated to the left. The cavernous sinuses and optic chiasma are unremarkable. There is no intracranial mass, mass effect, midline shift, intra or extra-axial fluid collection or large hemorrhage. Normal flow-void in the intracranial vessels is noted. The visualized portions of orbits, mastoid air cells as well as paranasal sinuses are unremarkable. MR/MR pituitary wo/w con IMPRESSION: No acute intracranial process is noted. Stable cyst within the right side of the pituitary gland. Otherwise, no significant abnormality of pituitary gland is noted. Electronically authenticated by: LANCE IVERSON Date: 06/10/2024 09:13
--- NOTE | 2024-06-09 13:28 | US_ITS ---
The [address] [address] Patient Name: SANTA SMITH MRN: [id number] date: 1950 Sex: M Assigned Patient Location: MRI Current Patient Location: MRI Accession/Order Number: [id number] Exam Date: 06/09/2024 15:10 Report Date: 06/09/2024 16:15 At the request of: NON-STAFF PHYSICIAN Procedure: US thyroid EXAMINATION: US thyroid HISTORY: Hypopituitarism E23.0, Hypogonadism E29.1 COMPARISON: No relevant comparison available. TECHNIQUE: Sonographic images of the thyroid gland were obtained. FINDINGS: The right thyroid lobe measures 3.9 x 1.4 x 2.6 cm. Heterogeneous echotexture with 1 subcentimeter nodule. The thyroid isthmus measures 3.5 mm. No focal nodule. The left thyroid lobe measures 3.3 x 1.1 x 1.4 cm. Heterogeneous echotexture with 2 subcentimeter nodules The most suspicious nodule: Nodule 1. Right thyroid lobe. 0.7 x 0.8 x 0.6 cm. Solid, hypoechoic, tall, lobular margins, no calcifications TR 5 US/US thyroid IMPRESSION: 8 mm right thyroid TR 5 nodule. 1 year follow-up recommended TI-RADS: The [place] [employer] TI-RADS committee's white paper recommendations for thyroid lesions classified as TR5 (highly suspicious) are listed below: > 0.5 cm. Annual ultrasound follow-up for up to 5 years. > 1.0 cm. FNA. J. Am Dionicio Radiol 2017;14:587-595. Electronically authenticated by: GEORGIE DAVIES Date: 06/09/2024 16:15
== END 2024-06-09 13:18 | disposition home or self-care (01) ==
LOC: MRI 13:17
PROVIDERS: PCP Family Medicine
DX: E23.0 Hypopituitarism (principal); E21.3 Hyperparathyroidism, unspecified; E22.1 Hyperprolactinemia; E11.9 Type 2 diabetes mellitus without complications; Z79.4 Long term (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 insulin; E04.1 Nontoxic single thyroid nodule
CPT/HCPCS: 70553; 76536; A9575

== ENCOUNTER 2024-12-10 08:49 | Outpatient (OUT) | payer MEDICARE, SELFPAY ==
--- OUTSIDE RECORDS SUMMARY | 2024-12-10 08:56 | XMS_ITS | CCD ---
Author Organization [facility] CliniSynm Care Team Providers Care Fire Apparatus Engineer Name Role Phone PHYSICIAN, DEFAULT Unavailable Unavailable [...] Admitting Unavailable MISC, DR LOZADA Consulting Unavailable TONA ESPINOZA Admitting Unavailable QUIROZ, DR JOSELUIS Austin Primary Care Unavailable TONA ESPINOZA Attending Unavailable SHAKIRATONA Consulting Unavailable MAUREENJANEE Consulting Unavailable MAUREEN, JANEE [...] ALEJANDRO Pierre, DR ANGEL Attending Unavailable ALEJANDRO Pierre, DR ANGEL Consulting Unavailable RY CLINTON Consulting Unavailable Joseluis Quiroz Unavailable MD Joseluis Quiroz Primary Care Provider [phone] DO Merly Paul Attending Provider Joseluis Quiroz Primary Care Unavailable Merly Paul Admitting Unavailable Merly Paul Attending Unavailable Cabrera Dupont MD Primary Care Provider [phone] RAPHAEL SPRINGER Attending Unavailable HENRRY JOHNSON Attending Unavailable JOSELUIS QUIROZ Referring Unavailable MILAN PEÑA Attending Unavailable JANEE REDDY Attending Unavailable Cabrera Dupont MD Primary Care Provider Joseluis Quiroz MD Primary Care Provider Allergies Allergy Classification Reported Allergen(s) Allergy Type Date of Onset Reaction(s) Facility (2 sources) Lisinopril Drug Allergy 5 Other: See Comments [facility] Work Phone: (1 source) Lisinopril Propensity to adverse reactions 5 [facility] Work Phone: Medications Current Medications Medication Drug Class(es) Dates Sig (Normalized) Sig (Original) [id number] actuat albuterol 0.09 mg/actuat metered dose inhaler (3 sources) beta2-Adrenergic Agonist Start: 03-08-2024 take 2 puff(s) by inhalation every four hours albuterol HFA 90 mcg/act inhaler Inhale 2 puffs every 4 (four) hours if needed 03/08/2024 Active Amiodarone (1 source) Antiarrhythmic Amiodarone Active apixaban 5 mg oral tablet (13 sources) Factor Xa Inhibitor Start: 02-26-2024 take 1 tablet by mouth every twelve hours Eliquis 5 mg tablet Take 1 tablet (5 mg) by mouth every 12 hours. 02/26/2024 Active Start: 01-28-2024 take 1 tablet by woody th twice daily Apixaban (Eliquis) 5 mg tablet [...] day for 90 days Active Ascorbic Acid (2 sources) Vitamin C ASCORBIC ACID (V ITAMIN C ORAL) Take by mouth once daily. 0 Active Comment on above: Take by mouth once d aily. Ascorbic Acid / Beta Carotene / cuprous oxide / Lutein / sodium selenate / Vitamin E / Zinc Oxide (20 sources) Vitamin C Start: 07-12-2022 Ocuvite Adult 50+ Ocuvite Adult 50+( Oral 1 capusle every other day ) Active -Hx Entry Oral every other day for 0 *Pick strength-form from [employer] for eRX* Jul, Active Ocuvite TABS WYATT E 1 TABLET DAILY. Quantity: 0 Refills: 0 Ordered: 30-Nov-2020 DO Active aspirin 81 mg delayed release oral tablet (2 sources) Platelet Aggregation Inhibitor, Nonsteroidal Anti-inflammatory Drug take 1 tablet by mouth once daily aspirin, enteric coated (ASPIRIN, ENTERIC COATED) 81 mg EC tablet Take 81 mg by mouth once daily. 0 Active Comment on above: Take 81 mg by mouth once daily. atorvastatin 20 mg oral tablet (20 sources) HMG-CoA Reductase Inhibitor Start: 024 take 20 mg by mouth once daily [...] PO Daily March 06, 2024 12:00am Start: 01-10-2024 take 1 tablet by woody th every twelve hours buPROPion XL (Wellbutrin XL) 150 mg 24 hr tablet Take 1 tablet (150 mg) by mouth every 12 hours. 01/10/2024 Active Start: 07-23-2022 take 1 tablet by woody th every twenty-four hours buPROPion HCl ER (XL) 150 MG 1 tablet in the morning Oral Once a day *Pick strength-form from [employer] for eRX* Jul, Active Start: 07-23-2022 take 1 tablet by woody th twice daily buPROPion HCl ER (XL) 150MG buPROPion HCl ER (XL) 150MG, 1 (one) Tablet Tablet two times daily # 180, 07/23/2022, Ref. x1. Active Oral two times daily for 0 *Pick strength-form from [employer] for eRX* Jul, Active Start: 04-13-2020 take 1 tablet by woody th twice daily buPROPion SR (ZYBAN SR; WELLBUTRIN SR) 150 mg 12 hr tablet Take 1 tablet by mouth twice daily. 180 tablet 1 04/13/2020 Active buPROPion SR (We llbutrin SR) 150 MG 12 hr tablet every 12 (twelve) hours Active take 1 tablet by woody th twice daily buPROPion HCl ER (XL) 150 MG TAKE 1 TABLET BY MOUTH TWICE A DAY Active take 1 tablet by woody th once daily Wellbutrin SR 150 MG Oral Tablet Extended Release 12 Hour TAKE 1 TABLET EVERY 12 HOURS DAILY. Quantity: 0 Refills: 0 Ordered: 30-Nov-2020 DO Active Comment on above: Take 1 tablet by woody th twice daily. cabergoline 0.5 mg oral tablet (20 sources) Ergot Derivative Start: 04-13-20 take 1 tablet by mouth every other day cabergoline (Dostinex) 0.5 MG tablet Take 0.5 mg by mouth every other day 10/10/2023 Active Comment on above: Take one tablet ever y other day carvedilol 6.25 mg oral tablet (12 sources) alpha-Adrenergic Veronica, beta-Adrenergic Veronica Start: 02-26-20 take 6.25 mg by mouth twice daily Carvedilol Active 6.25 MG PO Twice daily March 06, 2024 12:00am Citracal Plus (5 sources) Citracal Plus Active CYANOCOBALAMIN, VITAMIN B-12, (VITAMIN B-12 ORAL) (2 sources) CYANOCOBALAMIN, VITAMIN B-12, (VITAMIN B-12 ORAL) Take by mouth once daily. 0 Active Comment on above: Take by mouth once d aily. dapagliflozin 10 mg oral tablet (12 sources) Sodium-Glucose Cotransporter 2 Inhibitor Start: 03-06-20 24 take 1 tablet by mouth once daily before mealtime Farxiga 10 mg Take 1 tablet (10 mg) by mouth once daily in the morning. Take before meals. 05/05/2024 Active escitalopram 10 mg oral tablet (11 sources) Serotonin Reuptake Inhibitor Start: 08-19-20 23 take 1 tablet by mouth once daily in the evening Escitalopram Oxalate Active 10 MG PO Every evening March 31, 2024 12:00am FreeTextSi tablet Orally Once a day; Note: Source Status: Taking; Refills: 3; Provider: Richie Austin esomeprazole 40 mg delayed release oral capsule (20 sources) Proton Pump Inhibitor Start: 03-06-20 End: 03-16-20 24 take 1 capsule by mouth once daily Esomeprazole Magnesium (Nexium) 40 mg capsule,delayed release(DR/EC) Active 40 MG PO Daily March 16, 2024 8:39am esomeprazole (Ne xIUM) [address] capsule 2 capsules 1 (one) time each day at the same time Active take 1 capsule by mouth once karen ly esomeprazole 20 mg capsule Indications: Thyroid nodule , 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HCC) , Type II or unspecified type diabetes mellitus without mention of complication, uncontrolled , Hypogonadism male , Hypercalcemia Take 20 mg by mouth once daily. 0 Active Comment on above: Take 20 mg by mouth once daily. furosemide 40 mg oral tablet (3 sources) Loop Diuretic take 1 tablet by mouth once daily for edema furosemide (Lasix) 40 MG tablet TAKE 1 TABLET BY MOUTH DAILY FOR FLUID RETENTION DIRECTED Active 3 ml insulin glargine 100 unt/ml pen injector (20 sources) Insulin Analog Start: 05-07-20 Lantus Solostar U-100 Insulin 100 unit/mL (3 mL) pen Indications: Hypopituitarism (Multi) , Hypogonadism male , Hyperparathyroidism (Multi) , Hyperprolactinemia (Multi) , Type 2 diabetes mellitus without complication, with long-term current use of insulin (Multi) Inject 35 Units under the skin once daily in the morning. 15 mL 11 05/07/2024 Active Start: 03-31-2024 Insulin Glargi ne (Lantus Solostar U-100 Insulin) 100 unit/mL (3 mL) insulin pen Active 35 UNIT SUBCUT Every morning March 31, 2024 12:00am Start: 04-13-2020 insulin glargi ne (LANTUS SOLOSTAR U-100 INSULIN) 100 unit/mL (3 mL) INJECT 50 UNITS UNDER THE SKIN TWICE A DAY 45 mL 1 04/13/2020 Active inject 30 [IU] by berrios bcutaneous injection in the morning, then inject 15 [IU] by subcutaneous injection in the evening insulin glargine (Lantus) 100 UNIT/ML injection as directed Subcutaneous 30 units in AM 15 units in PM Active End: 05-07-2024 Lantus Solostar U-100 Insuli n 100 unit/mL (3 mL) pen Inject under the skin. 05/07/2024 Discontinued (Reorder) Lantus 30 Subcut aneous daily Active Lantus [...] contrast (will be provided with radiology test) (2 sources) Start: 01-21-2019 iv contrast (will be provided [...] March 31, 2024 12:00am Start: 03-06-2024 End: 05-07-2024 levothyroxine (Synthroid, Le voxyl) 75 mcg tablet Indications: Hypopituitarism (Multi) , Hypogonadism male , Hyperparathyroidism (Multi) , Hyperprolactinemia (Multi) , Type 2 diabetes mellitus without complication, with long-term current use of insulin (Multi) Take 1 tablet (75 mcg) by mouth once daily. 90 tablet 3 05/07/2024 Active Start: 04-13-2020 take 0.5 tablet by m outh once daily levothyroxine (SYNTHROID) 75 mcg tablet Indications: Thyroid disease Take 0.5 tablets by mouth once daily. 45 tablet 1 04/13/2020 Active Levothyroxine So dium 75 MCG 1/2 tab once a day Active Comment on above: Take 0.5 tablets by mouth once daily. lisinopril 5 mg oral tablet (13 sources) Angiotensin Converting Enzyme Inhibitor Start: 05-04-2024 lisinopril 5 mg tablet 05/04/2024 Active Start: 01-10-2024 End: 01-10-2024 take 5 mg by mouth once daily Lisinopril Active 5 MG P O Daily January 10, 2024 3:59pm MULTIVIT &MINERALS/FERROUS FUM (MULTI VITAMIN ORAL) (2 sources) MULTIVIT &MINERALS/FERROUS FUM (MULTI VITAMIN ORAL) Take by mouth once daily. 0 Active Comment on above: Take by mouth once d aily. rosuvastatin calcium 40 mg oral tablet (4 sources) HMG-CoA Reductase Inhibitor Start: 2023 take 1 tablet by mouth once daily rosuvastatin (Crestor) 40 MG tablet Take 40 mg by mouth Daily 04/01/2024 Active sildenafil 50 mg oral tablet (9 sources) Phosphodiesterase 5 Inhibitor Start: 2023 take 1 tablet by mouth once daily as needed sildenafil (Viagra) 50 mg tablet TAKE 1 TABLET BY MOUTH ONCE A DAY NEEDED DIRECTED FOR 30 DAYS 04/06/2024 Active Start: 07-12-2022 take 1 tablet by woody th once daily Sildenafil Citrate 25MG Sildenafil Citrate 25MG, 1 (one) Tablet daily as directed # 10, 07/12/2022, Ref. x2. Active Oral daily as directed for 30 *Pick strength-form from [employer] for eRX* Jul, Active take 1 tablet by woody th once daily as needed Sildenafil Citrate 50 MG 1 tablet as needed Orally daily as directed for 30 days *Pick strength-form from [employer] for eRX* Active spironolactone 25 mg oral tablet (12 sources) Aldosterone Antagonist Start: 03-06-2024 take 12.5 mg by mouth once daily in the evening Spironolactone Active 12.5 MG PO Every evening March 06, 2024 12:00am Start: 03-05-2024 take 0.5 tablet by m outh in the morning spironolactone (Aldactone) 25 mg tablet TAKE 1/2 TABLET BY MOUTH IN THE MORNING 03/05/2024 Active spironolactone ( Aldactone) 25 MG tablet Take by mouth Daily Active Aldactone 25 MG 1/2 tablet once a day Active 5000 mg testosterone 0.01 mg/mg topical gel (20 sources) Androgen Start: 05-07-2024 End: 11-03-2024 testosterone 1 % (50 mg/5 gr am) gel in packet Indications: Hypopituitarism (Multi) , Hypogonadism male , Hyperparathyroidism (Multi) , Hyperprolactinemia (Multi) , Type 2 diabetes mellitus without complication, with long-term current use of insulin (Multi) Place 1 packet (50 mg) on the skin once daily. 90 packet 1 05/07/2024 11/03/2024 Active Start: 03-06-2024 Testosterone A ctive 1 PACKET TRANSDERML Daily March 06, 2024 12:00am Start: 07-12-2022 AndroGel 50 MG /5GM(1%) AndroGel( 50 MG/5GM(1%) Transdermal daily ) Active -Hx Entry Transdermal daily for 0 *Reorder from [employer] for eRx and Interaction Alerts* Jul, Active Start: 11-30-2020 Testosterone 5 0 MG/5GM (1%) Transdermal Gel APPLY 1 PACKET ONE TIME DAILY DIRECTED Quantity: 90 Refills: 1 Ordered: 10-Oct-2022 Mandie Salamanca MD Start : 30-Nov-2020 Active Start: 05-27-2020 End: 05-22-2024 testosterone 1 % (50 mg/5 gr am) gel in packet 1 packet (50 mg) once daily. 03/02/2024 05/07/2024 Discontinued (Reorder) Comment on above: APPLY CONTENTS OF 1 PACKET TO AFFECTED AREA ONCE DAILY DIRECTED Completed/Discontinued Medications Medication Drug Class(es) Dates Sig (Normalized) Sig (Original) Calcium Citrate (16 sources) Citracal TABS TAKE 1 TABLET TWICE DAILY. Quantity: 0 Refills: 0 Ordered: 30-Nov-2020 DO Active clopidogrel 75 mg oral tablet (16 sources) P2Y12 Platelet Inhibitor take 1 tablet by mouth once daily Plavix 75 MG Oral Tablet TAKE 1 TABLET DAILY. Quantity: 30 Refills: 6 Ordered: 30-Nov-2020 DO Active docosahexaenoic acid 120 mg / eicosapentaenoic acid [...] 0 Refills: 0 Ordered: 30-Nov-2020 DO Active melatonin 5 mg oral capsule (10 sources) [...] WITH MEALS 360 tablet 4 09/25/2019 Active metFORMIN (Gluco phage) 1000 MG tablet Take 500 mg by mouth in the morning. Take with meals. Active Comment on above: TAKE 2 TABLETS TWICE A DAY WITH MEALS 24 hr oxybutynin chloride 5 mg extended [...] Abdominal pain; Translations: [Unspecified abdominal pain] Episodic Acute cerebrovascular disease (3 sources) Cerebrovascular accident; Translations: [Cerebral infarction, unspecified] Onset: 2 07-09-2024 Chronic Anxiety disorders (10 sources) Anxiety; Translations: [Anxiety disorder, unspecified] Chronic Cardiac and circulatory congenital anomalies (3 sources) Patent foramen ovale; Translations: [PFO (patent foramen ovale)] Onset: 3 07-09-2024 Chronic Cardiac dysrhythmias (19 sources) Paroxysmal atrial fibrillation; Translations: [Unspecified atrial fibrillation] Onset: 2 Chronic Chronic obstructive pulmonary disease and bronchiectasis (1 source) Bronchitis, not specified as acute or chronic; Translations: [Bronchitis, not specified as acute or chronic] 03-06-2024 Episodic Conduction disorders (1 source) Unspecified right bundle-branch block; Translations: [UNSPECIFIED RT BUNDLE-BRANCH BLOCK] Onset: 3 Chronic Congestive heart failure; nonhypertensive (14 sources) Chronic systolic (congestive) heart failure; Translations: [Acute on chronic systolic (congestive) heart failure] Onset: 3 Chronic Delirium, dementia, and amnestic and other cognitive disorders (6 sources) Alzheimer's disease; Translations: [Alzheimer's disease with late onset] Onset: 4 06-27-2024 Chronic Diabetes mellitus with complications (20 sources) Type 2 diabetes mellitus; Translations: [Diabetes with other specified manifestations, type II or unspecified type, not stated as uncontrolled] Onset: 2 09-08-2015 Chronic Diabetes mellitus without complication (5 sources) Type 2 diabetes mellitus without complications; Translations: [Diabetes mellitus] Onset: 2 03-06-2024 Chronic Disorders of lipid metabolism (20 sources) Hyperlipidemia; Translations: [Other and unspecified hyperlipidemia] Onset: 2 Chronic Diverticulosis and diverticulitis (3 sources) Diverticulosis of colon; Translations: [Diverticulosis of large intestine without perforation or abscess without bleeding] Onset: 4 07-09-2024 Chronic Esophageal disorders (1 source) Gastro-esophageal reflux disease without esophagitis; Translations: [GERD WITHOUT ESOPHAGITIS] Onset: 3 Chronic Essential hypertension (4 sources) Hypertensive disorder; Translations: [Essential (primary) hypertension] Onset: 4 02-11-2024 Chronic Miscellaneous mental health disorders (3 sources) 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; Translations: [Other specified disorders of adult personality and behavior] Onset: 4 06-27-2024 Chronic Mood disorders (3 sources) Depressive disorder; Translations: [Depression] Onset: 4 06-27-2024 Chronic Nausea and vomiting (7 sources) Nausea; Translations: [Nausea] Episodic Occlusion or stenosis of precerebral arteries (5 sources) Occlusion and stenosis of bilateral carotid arteries; Translations: [Bilateral stenosis of carotid arteries] Onset: 4 Chronic Osteoarthritis (1 source) Unspecified osteoarthritis, unspecified site; Translations: [UNSPECIFIED OSTEOARTHRITIS UNS SITE] Onset: 3 Chronic Other aftercare (7 sources) Long-term current use of insulin; Translations: [predatory animal exterminator (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 insulin] Episodic Other and unspecified benign neoplasm (16 sources) Pituitary macroadenoma; 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] Episodic Other endocrine disorders (20 sources) Male hypogonadism; Translations: [Other testicular hypofunction] Onset: 3 12-23-2012 Chronic Other endocrine disorders (6 sources) Hypogonadotropic hypogonadism; Translations: [Other anterior pituitary disorders] Chronic Other endocrine disorders (1 source) Testicular hypofunction; Translations: [TESTICULAR HYPOFUNCTION] Onset: 3 Chronic Other endocrine disorders (1 source) Hypopituitarism; Translations: [Hypopituitarism] 05-07-2024 Chronic Other endocrine disorders (1 source) Hyperparathyroidism; Translations: [Hyperparathyroidism, unspecified] 05-07-2024 Chronic Other endocrine disorders (1 source) Hyperprolactinemia; Translations: [Hyperprolactinemia] 05-07-2024 Chronic Other endocrine disorders (3 sources) Pituitary mass; Translations: [Other disorders of pituitary gland] Onset: 4 06-27-2024 Chronic Other endocrine disorders (3 sources) Primary hyperparathyroidism; Translations: [Primary hyperparathyroidism] Onset: 0 07-09-2024 Chronic Other gastrointestinal disorders (2 sources) Constipation, unspecified; [...] Chronic Other nutritional; endocrine; and metabolic disorders (5 sources) Hypercalcemia; Translations: [Hypercalcemia] Onset: 3 12-23-2012 Chronic Other nutritional; endocrine; and metabolic disorders (7 sources) Loss of appetite; Translations: [Anorexia] Episodic Other nutritional; endocrine; and metabolic disorders (6 sources) Weight loss; Translations: [Abnormal weight loss] Episodic Other nutritional; endocrine; and metabolic disorders (1 source) Abnormal weight loss; Translations: [Weight loss] Episodic 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; 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] Onset: 0 11-16-2009 Chronic Unclassified (1 source) CONTACT W/AND (SUSP) EXPOS COVID-19; Translations: [CONTACT W/AND (SUSP) EXPOS COVID-19] Onset: 3 Past or Other Problems Problem Classification Problem Date Documented Da te Episodic/Chronic Administrative/social admission (4 sources) Patient encounter status; Translations: [Dietary counseling and surveillance] Onset: 07-09-2024 Resolved: 07-09-2024 02-11-2024 Episodic Menopausal disorders (1 source) Hormone replacement therapy; Translations: [HORMONE REPLACEMENT THERAPY] Onset: 11-13-2022 Episodic Other aftercare (1 source) Other watermaster (current) drug therapy; Translations: [OTH SNF CURRENT DRUG THERAPY] Onset: 11-13-2022 Episodic Other aftercare (1 source) predatory animal exterminator (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 oral hypoglycemic drugs; Translations: [PERSONAL LINES UNDERWRITER USE ORAL HYPOGLYCEMIC DX] Onset: 11-13-2022 Episodic Other aftercare (1 source) predatory animal exterminator (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 insulin; Translations: [SNF CURRENT USE OF INSULIN] Onset: 11-13-2022 Episodic Other aftercare (1 source) shelter (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 aspirin; Translations: [PERSONAL LINES UNDERWRITER CURRENT USE OF ASPIRIN] Onset: 10-17-2022 Episodic Other and unspecified benign neoplasm (5 sources) Prolactinoma; 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 gland] [...] the circulatory system] Onset: 05-03-2023 Episodic Other circulatory disease (3 sources) History of cerebrovascular accident due to ischemia; Translations: [Personal history of transient ischemic attack (TIA), and cerebral infarction without residual deficits] Onset: 06-27-2024 06-27-2024 Episodic Other circulatory disease (3 sources) History of transient ischemic attack; Translations: [Personal history of transient ischemic attack (TIA), and cerebral infarction without residual deficits] Onset: 10-26-2022 07-09-2024 Episodic Other gastrointestinal disorders (4 sources) Diarrhea; Translations: [Diarrhea, unspecified] Onset: 07-09-2024 Resolved: 07-09-2024 03-18-2024 Episodic Other gastrointestinal disorders (4 sources) Fecal incontinence with fecal urgency; Translations: [Full incontinence of feces] Onset: 07-09-2024 03-18-2024 Episodic Other gastrointestinal disorders (4 sources) Constipation; Translations: [Constipation, unspecified] Onset: 07-09-2024 03-18-2024 Episodic Other lower respiratory disease (3 sources) Shortness of breath; Translations: [SHORTNESS OF BREATH] Onset: 11-10-2022 Episodic Other lower respiratory disease (1 source) Dyspnea, unspecified; Translations: [DYSPNEA UNSPECIFIED] Onset: 10-17-2022 Episodic Other screening for suspected conditions (not mental disorders or infectious disease) (6 sources) Cardiovascular stress test abnormal; Translations: [Abnormal result of other cardiovascular function study] Onset: 04-28-2015 04-28-2015 Episodic Residual codes; unclassified (2 sources) Other specified postprocedural states; Translations: [Other specified postprocedural states] Onset: 05-03-2023 Episodic Residual codes; unclassified (3 sources) Memory impairment; Translations: [Other amnesia] Onset: 06-27-2024 06-27-2024 Episodic Residual codes; unclassified (3 sources) H/O: atrial fibrillation; Translations: [Other specified postprocedural states] Onset: 05-02-2023 Resolved: 07-09-2024 07-09-2024 Episodic Screening and history of mental health and substance abuse codes (1 source) Personal history of nicotine dependence; Translations: [PERSONAL HISTORY OF NICOTINE DEPEND] Onset: 11-13-2022 Episodic Sprains and strains (5 sources) Strain of rotator cuff of shoulder; Translations: [Strain of muscle(s) and tendon(s) of the rotator cuff of unspecified shoulder, initial encounter] Onset: 06-16-2013 Resolved: 07-09-2024 06-16-2013 Episodic Results Test Name Value Interpretation Reference Range Facility Office Visiton 09-16-2024 Follow-up visit [id number] Gadiel Smith 1950 M Date Provider Department Center 09/16/2024 [id number] PEÑA [facility] Family History Problem Relation Age of [...] Paternal Grandmother Paternal Grandfather Other Level of Service:78640 NM OFFICE/OUTPATIENT ESTABLISHED MOD MDM 30 MIN Reason for Visit and Comments: Atrial Fibrillation [80] - S/p afib ablation vasovagal syncope [Other] Transient Ischemic Attack [576946] - X2 Carotid stenosis, bilateral [Other] Hyperlipidemia [182] - HAD LABS 09/15/24 Chronic systolic congestive heart failure [Other] - Congestive heart failure due to NICM Heart failure is stable . NYHA Class II Normal [facility] CNPMirta 06-18-2024 CNPN Telephone (PULMMN) GADIEL SMITH ([id number]) 1950 M Date Time Provider Department 06/18/24 RICKEY SALAMANCA PULROCKY During your visit today, we recorded the following information about you: Greg River 06/18/2024 4:24 PM Signed Received a mail from Sav with a notice on the Authorization for MRI, Brain, W/O Contrast Dated: 06/04/24 Status: Approve Service Requested: MRI, Brain, W/O Contrast Effective Dates: 06/04/2024 - 09/01/2024 Reference #: [id number] Uploaded into scan docs. Please allow time for upload. Allergies As of Date: 06/18/2024 Noted Allergy Reaction LISINOPRIL 04/28/2015 14 - Other: See Comments Comments: Fatigue Date Reviewed: 01/21/2019 Reviewed by: Maricruz Diaz) - Fully Assessed Reason for Visit: Insurance Authorization [[id number]] Cmt: Sav Prescriptions as of 06/18/2024 - testosterone (ANDROGEL) 50 mg / 5 [...] LANCETS) lancets Use as instructed - Insulin [place], Disposable, (BD ULTRAFINE III MINI PEN) 31 [...] once daily. 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 Good job!! Spoke with patient's and made her aware. Normal [facility] Capillary blood glucose corey urement by glucometer (mass/volume)Ordered By: Merly Paul on 04-14-2024 Glucose [Mass/Vol] 73 mg/dL Normal [facility] Comment on above: Random Glucose Refer ence Range is dependent on time and content of last meal. Glucose of more than 200 mg/dL in a nonstressed, ambulatory subject supports the diagnosis of Diabetes Mellitus. Result Comment: [place] om Glucose Reference Range is dependent on time and content of last meal. Glucose of more than 200 mg/dL in a nonstressed, ambulatory subject supports the diagnosis of Diabetes Mellitus. PERFORMED BY: [place] [id number] [place] [address] PATHOLOGIST MEETING/EVENT PLANNER ANJANA SEWELL M.D. Performed By: #### G LULS #### Point of Care testing , Harlan 04-14-2024 L Specimen: [id number] Received: 04/14/24 Status: MAYO Shi Num: [id number] Spec Type: Surgical Subm Dr: Merly Paul DO Tissues: A Colon Biopsy (CECAL POLYP) B Colon Biopsy (ASC POLYPS) C Colon Biopsy (TRANSV POLYP) D Colon Biopsy (DESC POLYP) Procedures: HE/8, Gross/Micro L4/4 Age/ Patient Sex Location Account Attending Physician Gadiel Smith 73/M [id number] Merly Paul DO SPEC NUM: [id number] RECD: 04/14/24 STATUS: MAYO SHI NUM: [id number] DIONICIO: 04/14/24- SUBM DR: Merly Paul DO ENTERED: 04/14/24 [facility] DR: Joseluis Quiroz MD SPEC TYPE: Surgical DEPT: S ORDERED: HE/8, Gross/Micro L4/4 ORDERED: HE/8, Gross/Micro L4/4 Pathological Diagnosis A, cecal polyp biopsy: -Multiple fragments of tubular adenoma without high-grade features B, ascending colon polyps biopsy: -Tubular adenoma in at least 1 fragment C, transverse colon polyp biopsy removal: -Multiple fragments of tubular adenomatous polyp without high-grade dysplasia D, descending colon polyp biopsy: -Tubular adenoma Clinical Information Diarrhea, constipation ---- Specimen: [id number] Received: 04/14/24 Status: MAYO Shi Num: [id number] Spec Type: Surgical Subm Dr: Merly Paul, DO Tissues: A Colon Biopsy (CECAL POLYP) B Colon Biopsy (ASC POLYPS) C Colon Biopsy (TRANSV POLYP) D Colon Biopsy (DESC POLYP) Procedures: LILI/Claribel, Rivas/Micro L4/4 ---- Patient: Gadiel Smith [id number] (Continued) ---- Specimen: [id number] Received: 04/14/24 (Continued) Signed (signature on file) Suki Jackson MD 04/16/24 3670 ---- Specimen: [id number] Received: 04/14/24 Status: MAYO Shi Num: [id number] Spec Type: Surgical Subm Dr: Merly Paul, DO Tissues: A Colon Biopsy (CECAL POLYP) B Colon Biopsy (ASC POLYPS) C Colon Biopsy (TRANSV POLYP) D Colon Biopsy (DESC POLYP) Procedures: HE/8, Gross/Micro L4/4 ---- Patient: Gadiel Smith [id number] (Continued) ---- Specimen: [id number] Received: 04/14/24 (Continued) Gross Description Received are [...] tissue fragment, entirely submitted in D1. TW CPT Codes 08176J6 ---- ---- Specimen: [id number] Received: 04/14/24 Status: MAYO Shi Num: [id number] Spec Type: Surgical Subm Dr: Merly Paul DO Tissues: A Colon Biopsy (CECAL POLYP) B Colon Biopsy (ASC POLYPS) C Colon Biopsy (TRANSV POLYP) D Colon Biopsy (DESC POLYP) Procedures: LILI/Rivas Sanford/Andrew L4/4 ---- Patient: Gadiel Smith [id number] (Continued) ---- Signed (signature on file) Bulmaro-Kalia Jackson MD 04/16/24 1330 Normal [facility] Office Visiton 04-01-2024 Follow-up visit [id number] Gadiel Smith 1950 M Date Provider Department Center 04/01/2024 Jo-Ann-MAUREEN JANEE CARD [facility] Family History Problem Relation Age of [...] Paternal Grandmother Paternal Grandfather Other Level of Service:31520 NM OFFICE/OUTPATIENT ESTABLISHED MOD MDM 30 MIN Reason for Visit and Comments: Follow-up [458952] - 7 month follow up Normal [facility] ECHOCARDIO M/2D COMPLETEon 0 02-28-2023 ECHOCARDIO M/2D COMPLETE Patient: GADIEL SMITH Exam Date: 02/28/2023 : 1950 Gender:M Ordering : TONA ESPINOZA Admission #: [id number] Family : DR JOSELUIS QUIROZ M.D. Order #: [id number] CLICK HERE TO VIEW EXAM ECHOCARDIOGRAM REPORT [...] Left Atrium LA Volume Index (2D A2C): 80633 mm3 Left Atrium Systolic Dimension: 4.90 cm [...] Patten M.D. on 02/28/2023 at 20:13 Normal [facility] PROF 14(COMP METB)on 023 Albumin [Mass/Vol] 3.7 g/dL Normal 3.4-5.0 [facility] Comment on above: Performed By: #### C MP #### [facility] [address] [place] [address] Dr. Esme Jackson Albumin/Globulin [Mass ratio] 1.1 {ratio} Normal [facility] Comment on above: Performed By: #### C MP #### [facility] [address] [place] [address] Dr. Esme Jackson ALP [Catalytic activity/Vol] 65 U/L Normal 46-116 [facility] Comment on above: Performed By: #### C MP #### [facility] [address] [address] [address] Esme Jackson ALT [Catalytic activity/Vol] 26 U/L Normal 16-63 [facility] Comment on above: Performed By: #### C MP #### [facility] [address] [address] [address] Esme Jackson Anion gap [Moles/Vol] 10.8 mmol/L Normal [facility] Comment on above: Performed By: #### C MP #### [facility] [address] [address] [address] Esme Jackson AST [Catalytic activity/Vol] 16 U/L Normal 15-37 [facility] Comment on above: Performed By: #### C MP #### [facility] [address] [place] [address] Dr. Esme Jackson Bilirubin [Mass/Vol] 1.1 mg/dL Critically high 0.2-1.0 [facility] Comment on above: Performed By: #### C MP #### [facility] [address] [address] [address] Esme Jackson Calcium [Mass/Vol] 9.4 mg/dL Normal 8.5-10.1 [facility] Comment on above: Performed By: #### C MP #### [facility] [address] [address] [address] Esme Jackson Chloride [Moles/Vol] 103 mmol/L Normal 98-107 [facility] Comment on above: Performed By: #### C MP #### [facility] [address] [place] [address] Dr. Esme Jackson CO2 [Moles/Vol] 28.5 mmol/L Normal 21.0-32.[address] [facility] Comment on above: Performed By: #### C MP #### [facility] [address] [place] [address] Dr. Esme Jackson Creatinine [Mass/Vol] 1.07 mg/dL Normal 0.70-1.30 [facility] Comment on above: Performed By: #### C MP #### [facility] [address] [place] [address] Dr. Esme Jackson EGFR-AF BANGLADESHI >60 Normal >=[address] [facility] Comment on above: Performed By: #### C MP #### [facility] [address] [place] [address] Dr. Esme Jackson EGFR-NON AF BANGLADESHI >60 Normal >=60 [facility] Comment on above: Performed By: #### C MP #### [facility] [address] [address] [address] Esme Jackson Globulin (S) [Mass/Vol] 3.5 g/dL Normal [facility] Comment on above: Performed By: #### C MP #### [facility] [address] [place] [address] Dr. Esme Jackson Glucose [Mass/Vol] 190 mg/dL Critically high 74-106 [facility] Comment on above: Performed By: #### C MP #### [facility] [address] [address] [address] Esme Jackson Potassium [Moles/Vol] 5.3 mmol/L Critically high 3.5-5.1 [facility] Comment on above: Performed By: #### C MP #### [facility] [address] [place] [address] Dr. Esme Jackson Protein [Mass/Vol] 7.2 g/dL Normal 6.4-8.2 [facility] Comment on above: Performed By: #### C MP #### [facility] [address] [place] [address] Dr. Esme Jackson Sodium [Moles/Vol] 137 mmol/L Normal 136-145 [facility] Comment on above: Performed By: #### C MP #### [facility] [address] [place] [address] Dr. Esme Jackson Urea nitrogen [Mass/Vol] 14.0 mg/dL Normal 7.0-18.0 [facility] Comment on above: Performed By: #### C MP #### [facility] [address] [place] [address] Dr. Esme Jackson Urea nitrogen/Creatinine [Mass ratio] 13.1 mg/mg Normal [facility] Comment on above: Performed By: #### C MP #### [facility] [address] [place] [address] Dr. Esme Jackson BNPon 11-10-2022 Natriuretic peptide B (Bld) [Mass/Vol] 6259.0 pg/mL Critically high <=900.0 [facility] Comment on above: Performed By: #### B ALLIED HEALTH TEACHER, BMP, HSTROPN #### [facility] [address] [place] [address] Dr. Esme Jackson CBC AUTO DIFFon 11-10-2022 BASO # 0.0 103/ul Normal 0.0-0.1 [facility] Comment on above: Performed By: #### C BC #### [facility] [address] [place] [address] Dr. Esme Jackson Basophils/100 WBC (Bld) 0.5 % Normal 0.2-2.0 [facility] Comment on above: Performed By: #### C BC #### [facility] [address] [place] [address] Dr. Esme Jackson EO # 0.3 103/ul Normal 0.0-0.7 [facility] Comment on above: Performed By: #### C BC #### [facility] [address] [place] [address] Dr. Esme Jackson Eosinophils/100 WBC (Bld) 3.6 % Normal 0.9-7.0 [facility] Comment on above: Performed By: #### C BC #### [facility] [address] [place] [address] Dr. Esme Jackson Erythrocyte distribution width (RBC) [Ratio] 14.8 % Normal 11.0-15.0 [facility] Comment on above: Performed By: #### C BC #### [facility] [address] [place] [address] Dr. Esme Jackson Hematocrit (Bld) [Volume fraction] 36.9 % Critically low 42.0-54.0 [facility] Comment on above: Performed By: #### C BC #### [facility] [address] [place] [address] Dr. Esme Jackson Hemoglobin (Bld) [Mass/Vol] 12.0 g/dL Critically low 14.0-18.0 [facility] Comment on above: Performed By: #### C BC #### [facility] [address] [place] [address] Dr. Esme Jackson IG # 0.04 10e3/ul Critically high 0.00-0.03 [facility] Comment on above: Performed By: #### C BC #### [facility] [address] [place] [address] Dr. Esme Jackson IG % 0.5 % Normal 0.0-0.5 [facility] Comment on above: Performed By: #### C BC #### [facility] [address] [place] [address] Dr. Esme Jackson LYMPH # 1.3 103/ul Normal 1.2-3.8 [facility] Comment on above: Performed By: #### C BC #### [facility] [address] [place] [address] Dr. Esme Jackson Lymphocytes/100 WBC (Bld) 18.2 % Critically low 20.5-60.0 [facility] Comment on above: Performed By: #### C BC #### [facility] [address] [place] [address] Dr. Esme Jackson MANUAL DIFF REQ NO Normal [facility] Comment on above: Performed By: #### C BC #### [facility] [address] [place] [address] Dr. Esme Jackson MCH (RBC) [Entitic mass] 28.0 pg Normal 25.9-34.0 [facility] Comment on above: Performed By: #### C BC #### [facility] [address] [place] [address] Dr. Esme Jackson MCHC (RBC) [Mass/Vol] 32.5 g/dL Normal 29.9-35.2 [facility] Comment on above: Performed By: #### C BC #### [facility] [address] [place] [address] Dr. Esme Jackson MCV (RBC) [Entitic vol] 86.0 fL Normal 80.0-94.0 [facility] Comment on above: Performed By: #### C BC #### [facility] [address] [place] [address] Dr. Esme Jackson MONO # 0.5 103/ul Normal 0.3-0.8 [facility] Comment on above: Performed By: #### C BC #### [facility] [address] [place] [address] Dr. Esme Jackson Monocytes/100 WBC (Bld) 7.3 % Normal 1.7-12.0 [facility] Comment on above: Performed By: #### C BC #### [facility] [address] [place] [address] Dr. Esme Jackson NEUT # 5.1 103/ul Normal 1.4-6.5 [facility] Comment on above: Performed By: #### C BC #### [facility] [address] [place] [address] Dr. Esme Jackson Neutrophils/100 WBC (Bld) 69.9 % Normal 43.0-75.0 [facility] Comment on above: Performed By: #### C BC #### [facility] [address] [place] [address] Dr. Esme Jackson Platelet mean volume (Bld) [Entitic vol] 10.3 fL Normal 9.5-13.5 [facility] Comment on above: Performed By: #### C BC #### [facility] [address] [place] [address] Dr. Esme Jackson PLT 220 103/ul Normal 150-450 [facility] Comment on above: Performed By: #### C BC #### [facility] [address] [place] [address] Dr. Esme Jackson RBC 4.29 106/ul Critically low 4.70-6.10 [facility] Comment on above: Performed By: #### C BC #### [facility] [address] [place] [address] Dr. Esme Jackson WBC 7.3 103/ul Normal 4.0-11.0 [facility] Comment on above: Performed By: #### C BC #### [facility] [address] [place] [address] Dr. Esme Jackson Covid-19 PCR ([facility])on 10-13 SARS-CoV-2 (COVID-19) RNA HANSA+probe Ql (Unsp spec) Not detected Normal NOT DETECTED [facility] Comment on above: Result Comment: When [...] for this test is supported by the Development System Efficiency Manager of Health and Human Service's declaration that [...] used). Performed By: #### C VDTBH #### [facility] [address] [place] [address] Dr. Esme Jackson INFLUENZA A AND B AGon 11-[address] [facility] SEE BELOW Normal [facility] Comment on above: Result Comment: Nega tive for Flu A protein angiten. Infection due to Flu A cannot be ruled out. Flu A angiten in the sample may be below the detection limit of the test. Performed By: #### F T4 #### [facility] [address] [place] [address] Dr. Es[facility] Normal [facility] Comment on above: Result Comment: Nega tive for Flu B protein antigen. Infection due to Flu B cannot be ruled out. Flu B antigen in the sample may be below the detection limit of the test. Performed By: #### F T4 #### [facility] [address] [place] [address] Dr. Esme Jackson INFLUENZA A AG Negative Normal NEGATIVE SEE COMMENT [facility] Comment on above: Performed By: #### F T4 #### [facility] [address] [place] [address] Dr. Esme Jackson INFLUENZA B AG Negative Normal NEGATIVE SEE COMMENT [facility] Comment on above: Performed By: #### F T4 #### [facility] [address] [place] [address] Dr. Esme Jackson PROF CHEM 8 (BAS METB)on Anion gap [Moles/Vol] 13.9 mmol/L Normal [facility] Comment on above: Performed By: #### B ALLIED HEALTH TEACHER, BMP, HSTROPN #### [facility] [address] [place] [address] Dr. Esme Jackson Calcium [Mass/Vol] 8.7 mg/dL Normal 8.5-10.[address] [facility] Comment on above: Performed By: #### B ALLIED HEALTH TEACHER, BMP, HSTROPN #### [facility] [address] [address] [address] Esme Jackson Chloride [Moles/Vol] 104 mmol/L Normal 98-107 [facility] Comment on above: Performed By: #### B ALLIED HEALTH TEACHER, BMP, HSTROPN #### [facility] [address] [address] [address] Esme Jackson CO2 [Moles/Vol] 25.2 mmol/L Normal 21.0-32.[address] [facility] Comment on above: Performed By: #### B ALLIED HEALTH TEACHER, BMP, HSTROPN #### [facility] [address] [address] [address] Esme Jackson Creatinine [Mass/Vol] 1.04 mg/dL Normal 0.70-1.30 [facility] Comment on above: Performed By: #### B ALLIED HEALTH TEACHER, BMP, HSTROPN #### [facility] [address] [address] [address] Esme Jackson EGFR-AF BANGLADESHI >60 Normal >=[address] [facility] Comment on above: Performed By: #### B ALLIED HEALTH TEACHER, BMP, HSTROPN #### [facility] [address] [address] [address] Esme Jackson EGFR-NON AF BANGLADESHI >60 Normal >=60 [facility] Comment on above: Performed By: #### B ALLIED HEALTH TEACHER, BMP, HSTROPN #### [facility] [address] [address] [address] Esme Jackson Glucose [Mass/Vol] 199 mg/dL Critically high 74-106 [facility] Comment on above: Performed By: #### B ALLIED HEALTH TEACHER, BMP, HSTROPN #### [facility] [address] [address] [address] Esme Jackson Potassium [Moles/Vol] 4.1 mmol/L Normal 3.5-5.1 [facility] Comment on above: Performed By: #### B ALLIED HEALTH TEACHER, BMP, HSTROPN #### [facility] [address] [address] [address] Esme Jackson Sodium [Moles/Vol] 139 mmol/L Normal 136-145 [facility] Comment on above: Performed By: #### B ALLIED HEALTH TEACHER, BMP, HSTROPN #### [facility] [address] [address] [address] Esme Jackson Urea nitrogen [Mass/Vol] 18.0 mg/dL Normal 7.0-18.0 [facility] Comment on above: Performed By: #### B ALLIED HEALTH TEACHER, BMP, HSTROPN #### [facility] [address] [address] [address] Esme Jackson Urea nitrogen/Creatinine [Mass ratio] 17.3 mg/mg Normal [facility] Comment on above: Performed By: #### B ALLIED HEALTH TEACHER, BMP, HSTROPN #### [facility] [address] [address] [address] Esme Jackson TROPONIN, HIGH SENSITIVITYon 11-10-2022 HSTROP 35.5 pg/mL Normal 4.0-76.1 [facility] Comment on above: Result Comment: CUT- OFF POINTS HAVE BEEN ESTABLISHED BASED ON THE FOURTH UNIVERSAL DEFINITIONS OF MYOCARDIAL INFARCTION. THE UPPER REFERENCE LIMIT (URL) OF TROPONIN, DEFINED THE 99TH PERCENTILE OF cTnI DISTRIBUTION IN A REFERENCE POPULATION, HAS BEEN CONFIRMED THE DECISION THRESHOLD FOR [place] DIAGNOSIS. Performed By: #### B ALLIED HEALTH TEACHER, BMP, HSTROPN #### [facility] [address] [place] [address] Dr. Esme Jackson XR CHEST 1 Von [...] osseous structures are stable. Electronically authenticated by: [employer] Date: 2022-11-10 09:24 Normal [facility]on SARS-CoV-2 (COVID-19) RNA HANSA+probe Ql (Unsp spec) Not detected Normal NOT DETECTED [facility] Comment on above: Result Comment: When [...] for this test is supported by the Development System Efficiency Manager of Health and Human Service's declaration that [...] used). Performed By: #### C VDTB #### [facility] [address] [place] [address] Dr. Esme Jackson INFLUENZA A AND B [facility] 10-15 [facility] SEE BELOW Normal [facility] Comment on above: Result Comment: Nega tive for Flu A protein angiten. Infection due to Flu A cannot be ruled out. Flu A angiten in the sample may be below the detection limit of the test. Performed By: #### F T4 #### [facility] [address] [place] [address] Dr. Esme [facility] BEL[facility] Normal [facility] Comment on above: Result Comment: Nega tive for Flu B protein antigen. Infection due to Flu B cannot be ruled out. Flu B antigen in the sample may be below the detection limit of the test. Performed By: #### F T4 #### [facility] [address] [place] [address] Dr. Esme Jackson INFLUENZA A AG Negative Normal NEGATIVE SEE COMMENT [facility] Comment on above: Performed By: #### F T4 #### [facility] [address] [place] [address] Dr. Esme Jackson INFLUENZA B AG Negative Normal NEGATIVE SEE COMMENT [facility] Comment on above: Performed By: #### F T4 #### [facility] [address] [place], [place] [address] Dr. Esme Jackson INTERNAL CONTROLS Within Normal Limits Normal Wi thin Normal Limits [facility] Comment on above: Performed By: #### F T4 #### [facility] [address] [place], [place] [address] Dr. Esme Jackson XR CHEST 2 Von [...] RAPHAEL NUNEZ Date: 2022-10-15 10:08 Normal [facility] Follow Up (Endocrinology)on 10-10-2022 Follow Up [...] insulin; CATIE = N; Verified Transmission to [id number]; Last Updated By: [employer]; 10/10/2022 11:29:03 AM Albumin, Urine Spot; Status:Active; Requested for:10Oct2022; Perform:Lab Services - Lab To Draw (Non-Blood Test); Due:[id number];Ordered; For:Central hypothyroidism, Hyperlipemia, Hypogonadism male, Pituitary macroadenoma, Thyroid nodule, Type 2 diabetes mellitus with other specified complication, with long-term current use of insulin; Ordered By:Mandie Salamanca; Brain Natriuretic Peptide BNP; Status:Active; Requested for:10Oct2022; Perform:Lab Services - Lab To Draw (Blood Test); Due:[id number];Ordered; For:Central hypothyroidism, Hyperlipemia, Hypogonadism male, Pituitary macroadenoma, Thyroid nodule, Type 2 diabetes mellitus with other specified complication, with long-term current use of insulin; Ordered By:Mandie Salamanca; Complete Blood Count + Differential; Status:Active; Requested for:10Oct2022; Perform:Lab Services - Lab To Draw (Blood Test); Due:[id number];Ordered; For:Central hypothyroidism, Hyperlipemia, Hypogonadism male, Pituitary macroadenoma, Thyroid nodule, Type 2 diabetes mellitus with other specified complication, with long-term current use of insulin; Ordered By:Mandie Salamanca; Comprehensive Metabolic Panel; Status:Active; Requested for:10Oct2022; Perform:Lab Services - Lab To Draw (Blood Test); Due:[id number];Ordered; For:Central hypothyroidism, Hyperlipemia, Hypogonadism male, Pituitary macroadenoma, [...] (more content not included)... Normal [facility] CORTISOL Bri 08-15-2022 Cortisol AM 19.6 ug/dL Critically high 6.2-19.[address] [facility] Comment on above: Performed By: #### C ORTAM #### [facility] [address] [address] [address] Esme Jackson MICROALBUMIN URINEon 022 Albumin, Urine 36.5 ug/mL Normal Not Estab. [facility] Comment on above: Performed By: #### F T4 #### [facility] [address] [address] [address] Esme Jackson FREE T4on 06-22-2022 Free T4 [Mass/Vol] 1.22 ng/dL Normal 0.76-1.46 [facility] Comment on above: Performed By: #### F T4 #### [facility] [address] [place] [address] Dr. Esme Jackson GLYCOHEMOGLOBIN A1Con 2021 ADA RECOMMENDATION SEE BELOW Normal [facility] Comment on above: Result Comment: ADA RECOMMENDED LIMIT 4.0 - 6.0 ADA THERAPEUTIC TARGET < 7.0 ACTION SUGGESTED > 7.0 Performed By: #### F T4 #### [facility] [address] [place] [address] Dr. Esme Jackson Glucose [Mass/Vol] 194 mg/dL Normal [facility] Comment on above: Performed By: #### F T4 #### [facility] [address] [address] [address] Esme Jackson HbA1c (Bld) [Mass fraction] 8.4 % Critically high 4.5-6.2 [facility] Comment on above: Performed By: #### F T4 #### [facility] [address] [address] [address] Esme Jackson LIPID PROFILEon 06-22-2022 CHOL-HDL RATIO NORM SEE BELOW Normal [facility] Comment on above: Result Comment: 3.3 - 4.4 LOW RISK 4.4 - 7.1 AVERAGE RISK 7.1 - 11.0 MODERATE RISK >11.0 HIGH RISK Performed By: #### F T4 #### [facility] [address] [address] [address] Esme Jackson Cholesterol [Mass/Vol] 153 mg/dL Normal <=200 [facility] Comment on above: Performed By: #### F T4 #### [facility] [address] [address] [address] Esme Jackson Cholesterol in HDL [Mass/Vol] 55 mg/dL Normal 40-60 [facility] Comment on above: Performed By: #### F T4 #### [facility] [address] [address] [address] Esme Jackson Cholesterol in LDL [Mass/Vol] 82.2 mg/dL Normal [facility] Comment on above: Performed By: #### F T4 #### [facility] [address] [address] [address] Esme Jackson Cholesterol.total/Ch olesterol in HDL [Mass ratio] 2.8 {ratio} Normal [facility] Comment on above: Performed By: #### F T4 #### [facility] [address] [address] [address] Esme Jackson HDL NORMAL > or = 60 mg/dl - LO W CARDIOVASCULAR RISK <40 mg/dl - HIGH CARDIOVASCULAR RISK Normal [facility] Comment on above: Performed By: #### F T4 #### [facility] [address] [address] [address] Esme Jackson LDL CALC NORMAL SEE BELOW Normal [facility] Comment on above: Result Comment: <100 mg/dl OPTIMAL 100 - 129 mg/dl NEAR OR ABOVE OPTIMAL 130 - 159 mg/dl BORDERLINE HIGH 160 - 189 mg/dl HIGH >190 mg/dl VERY HIGH Performed By: #### F T4 #### [facility] [address] [address] [address] Esme Jackson Triglyceride [Mass/Vol] 79 mg/dL Normal <=150 [facility] Comment on above: Performed By: #### F T4 #### [facility] [address] [address] [address] Esme Jackson VLDL CALC 15.8 mg/dL Normal [facility] Comment on above: Performed By: #### F T4 #### [facility] [address] [place] [address] Dr. Esme Jackson PROF 14(COMP METB)on 022 Albumin [Mass/Vol] 3.9 g/dL Normal 3.4-5.0 [facility] Comment on above: Performed By: #### F T4 #### [facility] [address] [place] [address] Dr. Esme Jackson Albumin/Globulin [Mass ratio] 1.1 {ratio} Normal [facility] Comment on above: Performed By: #### F T4 #### [facility] [address] [place] [address] Dr. Esme Jackson ALP [Catalytic activity/Vol] 57 U/L Normal 46-116 [facility] Comment on above: Performed By: #### F T4 #### [facility] [address] [place] [address] Dr. Esme Jackson ALT [Catalytic activity/Vol] 22 U/L Normal 16-63 [facility] Comment on above: Performed By: #### F T4 #### [facility] [address] [place] [address] Dr. Esme Jackson Anion gap [Moles/Vol] 12.6 mmol/L Normal [facility] Comment on above: Performed By: #### F T4 #### [facility] [address] [place] [address] Dr. Esme Jackson AST [Catalytic activity/Vol] 18 U/L Normal 15-37 [facility] Comment on above: Performed By: #### F T4 #### [facility] [address] [place] [address] Dr. Esme Jackson Bilirubin [Mass/Vol] 1.1 mg/dL Critically high 0.2-1.0 [facility] Comment on above: Performed By: #### F T4 #### [facility] [address] [place] [address] Dr. Esme Jackson Calcium [Mass/Vol] 9.0 mg/dL Normal 8.5-10.[address] [facility] Comment on above: Performed By: #### F T4 #### [facility] [address] [address] [address] Esme Jackson Chloride [Moles/Vol] 103 mmol/L Normal 98-107 [facility] Comment on above: Performed By: #### F T4 #### [facility] [address] [place] [address] Dr. Esme Jackson CO2 [Moles/Vol] 27.2 mmol/L Normal 21.0-32.0 [facility] Comment on above: Performed By: #### F T4 #### [facility] [address] [place] [address] Dr. Esme Jackson Creatinine [Mass/Vol] 0.90 mg/dL Normal 0.70-1.30 [facility] Comment on above: Performed By: #### F T4 #### [facility] [address] [place] [address] Dr. Esme Jackson EGFR-AF BANGLADESHI >60 Normal >=60 [facility] Comment on above: Performed By: #### F T4 #### [facility] [address] [place] [address] Dr. Esme Jackson EGFR-NON AF BANGLADESHI >60 Normal >=60 [facility] Comment on above: Performed By: #### F T4 #### [facility] [address] [place] [address] Dr. Esme Jackson Globulin (S) [Mass/Vol] 3.4 g/dL Normal [facility] Comment on above: Performed By: #### F T4 #### [facility] [address] [place] [address] Dr. Esme Jackson Glucose [Mass/Vol] 185 mg/dL Critically high 74-106 [facility] Comment on above: Performed By: #### F T4 #### [facility] [address] [place] [address] Dr. Esme Jackson Potassium [Moles/Vol] 3.8 mmol/L Normal 3.5-5.1 [facility] Comment on above: Performed By: #### F T4 #### [facility] [address] [place] [address] Dr. Esme Jackson Protein [Mass/Vol] 7.3 g/dL Normal 6.4-8.2 [facility] Comment on above: Performed By: #### F T4 #### [facility] [address] [address] [address] Esme Jackson Sodium [Moles/Vol] 139 mmol/L Normal 136-[address] [facility] Comment on above: Performed By: #### F T4 #### [facility] [address] [address] [address] Esme Jackson Urea nitrogen [Mass/Vol] 12.0 mg/dL Normal 7.0-18.0 [facility] Comment on above: Performed By: #### F T4 #### [facility] [address] [place] [address] Dr. Esme Jackson Urea nitrogen/Creatinine [Mass ratio] 13.3 mg/mg Normal [facility] Comment on above: Performed By: #### F T4 #### [facility] [address] [place] [address] Dr. Esme Jackson US THYROIDon 06-22-2022 US [...] nodules. 1 year follow-up recommended TI-RADS: The [employer] TI-RADS committee's white paper recommendations for thyroid lesions classified as TR5 (highly suspicious) are listed below: > 0.5 cm. Annual ultrasound follow-up for up to 5 years. > 1.0 cm. FNA. J. Am Dionicio Radiol 2017;14:587-595. Electronically authenticated by: GEORGIE DAVIES Date: 2022-06-22 17:28 Normal [facility] Follow Up (Endocrinology)on 04-24-2022 Follow [...] Services - Lab To Draw (Blood Test); Due:[id number];Ordered; For:Central hypothyroidism, Hyperlipemia, Hypogonadism male, Pituitary macroadenoma, Thyroid nodule, Type 2 diabetes mellitus with other specified complication, with long-term current use of insulin; Ordered By:Mandie Salamanca; Cortisol A.M.; Status:Active; Requested for:24Apr2022; Perform:Lab Services - Lab To Draw (Blood Test); Due:[id number];Ordered; For:Central hypothyroidism, Hyperlipemia, Hypogonadism male, Pituitary macroadenoma, [...] For - Scheduling; Requested for:24Apr2022; Perform:[facility] Imaging; Due:23Jul2022;Ordered; For:Central [...] nodule; CATIE = N; Verified Transmission [facility]; Last Updated By: Paxata Machinio; 04/24/2022 10:33:22 AM Hypogonadism male, Pituitary macroadenoma Renew: Testosterone 50 MG/5GM (1%) Transdermal Gel; APPLY 1 PACKET ONE TIME DAILY DIRECTED Rx By: Mandie Salamanca; Dispense: 0 Days ; #:90 X 5 GM Package; Refill: 1;For: Hypogonadism male, Pituitary macroadenoma; CATIE = N; Verified Transmission to [employer] [facility]; Last Updated By: Paxata Machinio; 04/24/2022 10:33:21 AM Pituitary macroadenoma Renew: Cabergoline 0.5 MG Oral Tablet; Take 1 tablet every other day Rx By: Mandie Salamanca; Dispense: 80 Days ; #:40 Tablet; Refill: 3;For: Pituitary macroadenoma; CATIE = N; Verified Transmission to [employer] [facility]; Last Updated By: TRAFI; 04/24/2022 10:33:26 AM Type 2 diabetes mellitus with other specified complication, with long-term current use of insulin Renew: Accu-Chek Alicia Plus In Vitro Strip; TEST TWICE DAILY Rx B (more content not included)... Normal [employer] Tobacco Screening.on 022 Adult depression screening assessment No -Medicine [facility] [address] Work Phone: Fall risk assessment a) No falls within the last year [facility] [address] Work Phone: Tobacco use status CPHS b) No [facility]ggdodn[facility] [address] Work Phone: Vital Signs Date Time Vital Sign Value Performing Clinician Facility 07-14-2024 11:22-0400 Body height 182.9 cm Henrry Johnson MD Work Phone: [facility] 07-14-2024 11:22-0400 Body mass index (BMI) [Ratio] 26.31 kg/m2 Henrry Johnson MD Work Phone: [facility] 07-14-2024 11:22-0400 Body weight 88 kg Henrry Johnson MD Work Phone: [facility] 07-14-2024 11:22-0400 Diastolic blood pressure 62 mm[Hg] Henrry Johnson MD Work Phone: [facility] 07-14-2024 11:22-0400 Systolic blood pressure 131 mm[Hg] Henrry Johnson MD Work Phone: [facility] 04-14-2024 12:35-0400 Diastolic blood pressure 63 mm[Hg] MD Joseluis Quiroz Work Phone: [facility] 04-14-2024 12:35-0400 Heart rate 54 /min MD Joseluis Quiroz Work Phone: [facility] 04-14-2024 12:35-0400 Respiratory rate 18 /min MD Joseluis Quiroz Work Phone: [facility] 04-14-2024 12:35-0400 SaO2% (BldA) [Mass fraction] 99 % MD Joseluis Quiroz Work Phone: [facility] 04-14-2024 12:35-0400 Systolic blood pressure 125 mm[Hg] MD Joseluis Quiroz Work Phone: [facility] 04-14-2024 11:02-0400 Body height 182.88 cm MD Joseluis Quiroz Work Phone: [facility] 04-14-2024 11:02-0400 Body weight 86.18 kg MD Joseluis Quiroz Work Phone: [facility] 03-18-2024 10:35-0400 Body height 182.88 cm MD Joseluis Quiroz Work Phone: [facility] 03-18-2024 10:35-0400 Body mass index (BMI) [Ratio] 25.7 kg/m2 MD Joseluis Quiroz Work Phone: [facility] 03-18-2024 10:35-0400 Body weight 86.18 kg MD Joseluis Quiroz Work Phone: [facility] 03-06-2024 10:52-0400 Body height 182.88 cm MD Joseluis Quiroz Work Phone: [facility] 03-06-2024 10:52-0400 Body mass index (BMI) [Ratio] 26.9 kg/m2 MD Joseluis Quiroz Work Phone: [facility] 03-06-2024 10:52-0400 Body temperature 99.2 [degF] MD Joseluis Quiroz Work Phone: [facility] 03-06-2024 10:52-0400 Body weight 89.98 kg MD Joseluis Quiroz Work Phone: [facility] 03-06-2024 10:52-0400 Diastolic blood pressure 60 mm[Hg] MD Joseluis Quiroz Work Phone: [facility] 03-06-2024 10:52-0400 Heart rate 69 /min MD Joseluis Quiroz Work Phone: [facility] 03-06-2024 10:52-0400 Respiratory rate 18 /min MD Joseluis Quiroz Work Phone: [facility] 03-06-2024 10:52-0400 SaO2% (BldA) [Mass fraction] 95 % MD Joseluis Quiroz Work Phone: [facility] 03-06-2024 10:52-0400 Systolic blood pressure 127 mm[Hg] MD Joseluis Quiroz Work Phone: [facility] 10-29-2023 13:30-0500 Body height 182.88 cm Joseluis Quiroz Other [facility] Other 10-29-2023 13:30-0500 Body mass index (BMI) [Ratio] 26.09 kg/m2 Joseluis Quiroz Other [facility] Other 10-29-2023 13:30-0500 Body weight 87.27 kg Joseluis Quiroz Other [facility] Other 10-29-2023 13:30-0500 Diastolic blood pressure 72 mm[Hg] Joseluis Quiroz Other [facility] Other 10-29-2023 13:30-0500 SaO2% (BldA) [Mass fraction] 93 % Joseluis Quiroz Other [facility] Other 10-29-2023 13:30-0500 Systolic blood pressure 130 mm[Hg] Joseluis Quiroz Other [facility] Other 08-19-2023 11:00-0400 Body height 182.88 cm Joseluis Quiroz Other [facility] Other 08-19-2023 11:00-0400 Body mass index (BMI) [Ratio] 25.36 kg/m2 Joseluis Quiroz Other [facility] Other 08-19-2023 11:00-0400 Body weight 84.82 kg Joseluis Quiroz Other [facility] Other 08-19-2023 11:00-0400 Diastolic blood pressure 61 mm[Hg] Joseluis Quiroz Other [facility] Other 08-19-2023 11:00-0400 Systolic blood pressure 126 mm[Hg] Joseluis Quiroz Other [facility] Other Encounters Encounter Date Encounter Type Care Provider Facility Start: 09-16-2024 End: 09-16-2024 [facility] Start: 07-14-2024 End: 07-14-2024 Brittany Garrido H Timmis MD Work Phone: [facility] Start: 07-14-2024 End: 07-14-2024 Bamboo flowsheet Henrry Johnson MD Work Phone: [facility] Start: 07-14-2024 End: 07-14-2024 Office outpatient new 45 minutes Henrry Johnson MD Work Phone: [facility] Comment on above: Thyroid nodule (CMS/ HCC) (Primary Dx) Start: 07-14-2024 End: 07-14-2024 ambulatory HENRRY JOHNSON Not Available Start: 06-18-2024 Telephone encounter Rickey leos MD Work Phone: Pulmonary Medicine Comment on above: Insurance Authorizat ion ([place]) Start: 05-07-2024 End: 05-07-2024 Office outpatient visit 40 minutes Mandie Salamanca MD Work Phone: [facility] Comment on above: Hypopituitarism (Mul ti) (Primary Dx); Hypogonadism male; Hyperparathyroidism (Multi); Hyperprolactinemia (Multi); Type 2 diabetes mellitus without complication, with long-term current use of insulin (Multi); Thyroid nodule Start: 04-14-2024 Non-patient / Non-visit MD Hiral Quiroz Work Phone: [facility] Gastroenterology Work Phone: Start: 04-14-2024 End: 04-14-2024 Admission to same day surgery center MD Joseluis Quiroz Work Phone: [facility] Work Phone: Start: 04-14-2024 End: 04-14-2024 ambulatory MD Joseluis Quiroz Work Phone: [facility] Work Phone: Start: 04-01-2024 End: 04-01[facility] Start: 03-23-2024 End: 03-23-2024 ambulatory RAPHAEL SPRINGER Not Available Start: 03-18-2024 End: 03-18-2024 Patient encounter procedure MD Joseluis Quiroz Work Phone: [facility] Gastroenterology Work Phone: Start: 03-06-2024 End: 03-06-2024 Patient encounter procedure MD Joseluis Quiroz Work Phone: [facility] Urgent Care Emanuel Work Phone: Start: 12-23-2023 End: 12-23-2023 ambulatory Joseluis Quiroz Other [facility] Other Start: 12-23-2023 Telephone encounter Joseluis Quiroz [facility] Start: 10-29-2023 End: 10-29-2023 ambulatory Joseluis Quiroz Other [facility] Other Start: 10-29-2023 Office outpatient vi sit 15 minutes Joseluis Quiroz [facility] Start: 10-16-2023 End: 10-16-2023 ambulatory Joseluis Quiroz Other [facility] Other Start: 10-16-2023 Telephone encounter Joseluis Richie [facility] Start: 09-13-2023 End: 09-13-2023 ambulatory Joseluis Quiroz Other [facility] Other Start: 09-13-2023 Telephone encounter Joseluis Richie [facility] Start: 09-10-2023 End: 09-10-2023 ambulatory Joseluis Richie Other [facility] Other Start: 09-10-2023 Telephone encounter Joseluis Richie [facility] Start: 08-19-2023 End: 08-19-2023 ambulatory Joseluis Quiroz Other [facility] Other Start: 08-19-2023 Office outpatient vi sit 15 minutes Joseluis Quiroz [facility] Start: 07-31-2023 End: 07-31-2023 ambulatory Joseluis Quiroz Other [facility] Other Start: 07-31-2023 Telephone encounter Joseluis Quiroz [facility] Start: 05-29-2023 Rx Renewal [facility] [address] Work Phone: MW-Kdtsduvp-Oqnesae [facility] [address] Work Phone: Start: 04-08-2023 Rx Renewal [facility]rera [address] Work Phone: [facility] [address] [place] Work Phone: Start: 02-28-2023 End: 03-01-2023 ambulatory TONA SHAKIRA Facility:H1 Start: 01-30-[address] JOSELUIS QUIROZ Facil ity:H1 Start: 01-22-2023 AUDIT [facility] Work Phone: [facility] Work Phone: Start: 01-22-2023 Rx Renewal Cabrera [...] RAPHAEL NUNEZ Facility:H1 Start: 10-10-2022 Office outpatient vi sit 25 minutes [address] Work Phone: NR-Ajhsmjjmultlj-GNQ [place] [address] Work Phone: Start: 10-10-2022 ambulatory Referral Self Facility: [id number] Start: 09-28-2022 AUDIT [address] Work Phone: EU-Ekshucohxrwkj-[facility]ymhds[facility] Work Phone: Start: 07-13-2022 Rx Renewal [address] Work Phone: [facility] [address] [place] Work Phone: Start: 07-02-2022 Telephone encounter Mandie sun MD Work Phone: Endocrinology Comment on above: Received Outside Med ical Records (Received Thyroid US report from [facility]. Indexed into chart. ) Start: 06-22-2022 End: 06-23-[address] DOCTOR BUSBY Facility:H1 Start: 04-24-2022 Office outpatient vi sit 40 minutes [address] Work Phone: LO-Vjdcczdh-[facility] [address] Work Phone: Start: 04-24-[address] Cabrera Dupont Facility:[id number] Start: 03-27-2022 AUDIT [address] Work Phone: OK-Cagroltlbizih[facility] Work Phone: Start: 01-23-2022 AUDIT [address] Work Phone: EA-Amvaqtvuihywe-BfmgkesJac[facility] Work Phone: Start: 12-11-2021 Rx Renewal [address] Work Phone: CO-Jhlyoaigwojkv-Ccqblbi[facility] Work Phone: Start: 11-08-2021 AUDIT [address] Work Phone: FY-Dzdsupltntzvr-Ftovzsg [facility] Work Phone: Start: 08-21-2021 AUDIT [address] Work Phone: IK-Lpipqrwzvogkt-DYG [address] Work Phone: Start: 05-31-2021 AUDIT [address] Work Phone: [place]-Htwluzyfnuyep-LYW [place] [address] Work Phone: Start: 06-20-2017 End: 06-21-2017 Ambulatory DEFAULT PHYSICIAN Facility:[facility] Procedures Date Procedure Procedure Detail Performing Clinician Start: 04-14-2024 End: 04-14-2024 Colonoscopy MD Joseluis Quiroz Work Phone: Start: 08-24-2016 Lipid 1996 panel - S jaz or Plasma Rickey Salamanca MD Work Phone: Appendectomy [address] [address] Work Phone: Arthroscopy of knee [address] Work Phone: Parathyroidectomy [facility] Work Phone: Vasectomy [address] [address] Work Phone: Plan of Treatment Date Care Activity Detail Author Start: 04-14-2034 Screening for malignant neoplasm of colon [facility] Start: 07-14-2024 End: 07-14-2024 Patient encounter procedure 07/14/2024 11:30 AM EDT Office Visit [facility] [address] [facility] [address] [place] [id number] Henrry Johnson MD [address] [facility] [address] [place] [address] Arrived [facility] Comment on above: Arrived Start: 07-12-2024 Influenza vaccination [facility] Start: 05-07-2024 End: 05-07-2025 Comprehensive metabolic 2000 panel - Serum or Plasma Comprehensive Metabolic Panel Lab Routine Hypopituitarism (Multi) Hypogonadism male Hyperparathyroidism (Multi) Hyperprolactinemia (Multi) Type 2 diabetes mellitus without complication, with long-term current use of insulin (Multi) Expected: 05/07/2024 (Approximate), Expires: 05/07/2025 [facility] Work Phone: Comment on above: Expected: 05/07/2024 (Approximate), Expi res: 05/07/2025 Start: 05-07-2024 End: 05-07-2025 Cortisol [Mass/volume] in Serum or Plasma Cortisol Lab Routine Hypopituitarism (Multi) Hypogonadism male Hyperparathyroidism (Multi) Hyperprolactinemia (Multi) Type 2 diabetes mellitus without complication, with long-term current use of insulin (Multi) Expected: 05/07/2024 (Approximate), Expires: 05/07/2025 [facility] Service Area Work Phone: Comment on above: Expected: 05/07/2024 (Approximate), Expi res: 05/07/2025 Start: 05-07-2024 End: 05-07-2025 Hemoglobin A1c/Hemoglobin.total in Blood Hemoglobin A1C Lab Routine Hypopituitarism (Multi) Hypogonadism male Hyperparathyroidism (Multi) Hyperprolactinemia (Multi) Type 2 diabetes mellitus without complication, with long-term current use of insulin (Multi) Expected: 05/07/2024 (Approximate), Expires: 05/07/2025 [facility] Work Phone: Comment on above: Expected: 05/07/2024 (Approximate), Expi res: 05/07/2025 Start: 05-07-2024 End: 05-07-2025 Lipid 1996 panel - Serum or Plasma Lipid Panel Lab Routine Hypopituitarism (Multi) Hypogonadism male Hyperparathyroidism (Multi) Hyperprolactinemia (Multi) Type 2 diabetes mellitus without complication, with long-term current use of insulin (Multi) Expected: 05/07/2024 (Approximate), Expires: 05/07/2025 [facility] Work Phone: Comment on above: Expected: 05/07/2024 (Approximate), Expi res: 05/07/2025 Start: 05-07-2024 End: 05-07-2025 Microalbumin/Creatinin e [Mass Ratio] in Urine Albumin-Creatinine Ratio, Urine Random Lab Routine Hypopituitarism (Multi) Hypogonadism male Hyperparathyroidism (Multi) Hyperprolactinemia (Multi) Type 2 diabetes mellitus without complication, with long-term current use of insulin (Multi) Expected: 05/07/2024 (Approximate), Expires: 05/07/2025 [facility] Work Phone: Comment on above: Expected: 05/07/2024 (Approximate), Expi res: 05/07/2025 Start: 05-07-2024 End: 05-07-2025 MR Pituitary and Sella turcica WO and W contrast IV MR sella w and wo IV contrast Imaging Routine Hypopituitarism (Multi) Hypogonadism male Hyperparathyroidism (Multi) Hyperprolactinemia (Multi) Type 2 diabetes mellitus without complication, with long-term current use of insulin (Multi) Thyroid nodule Expected: 05/07/2024, Expires: 05/07/2025 [facility] Work Phone: Comment on above: Expected: 05/07/2024, Expires: Start: 05-07-2024 End: 05-07-2025 Parathyrin.intact [Mass/volume] in Serum or Plasma Parathyroid Hormone, Intact Lab Routine Hypopituitarism (Multi) Hypogonadism male Hyperparathyroidism (Multi) Hyperprolactinemia (Multi) Type 2 diabetes mellitus without complication, with long-term current use of insulin (Multi) Thyroid nodule Expected: 05/07/2024 (Approximate), Expires: 05/07/2025 [facility] Work Phone: Comment on above: Expected: 05/07/2024 (Approximate), Expi res: 05/07/2025 Start: 05-07-2024 End: 05-07-2025 Prolactin [Mass/volume] in Serum or Plasma Prolactin Lab Routine Hypopituitarism (Multi) Hypogonadism male Hyperparathyroidism (Multi) Hyperprolactinemia (Multi) Type 2 diabetes mellitus without complication, with long-term current use of insulin (Multi) Expected: 05/07/2024 (Approximate), Expires: 05/07/2025 [facility] Work Phone: Comment on above: Expected: 05/07/2024 (Approximate), Expi res: 05/07/2025 Start: 05-07-2024 End: 05-07-2025 Testosterone,Free and Total Testosterone,Free and Total Lab Routine Hypopituitarism (Multi) Hypogonadism male Hyperparathyroidism (Multi) Hyperprolactinemia (Multi) Type 2 diabetes mellitus without complication, with long-term current use of insulin (Multi) Expected: 05/07/2024 (Approximate), Expires: 05/07/2025 [facility] Work Phone: Comment on above: Expected: 05/07/2024 (Approximate), Expi res: 05/07/2025 Start: 05-07-2024 End: 05-07-2025 Thyroxine (T4) free [Mass/volume] in Serum or Plasma Thyroxine, Free Lab Routine Hypopituitarism (Multi) Hypogonadism male Hyperparathyroidism (Multi) Hyperprolactinemia (Multi) Type 2 diabetes mellitus without complication, with long-term current use of insulin (Multi) Expected: 05/07/2024 (Approximate), Expires: 05/07/2025 [facility] Work Phone: Comment on above: Expected: 05/07/2024 (Approximate), Expi res: 05/07/2025 Start: 04-14-2024 [facility] Start: 11-11-2023 Advance Directive Discussion Advance Directive Discussion [facility] Start: 07-12-2023 Covid-19 Vaccine () Covid-19 Vaccine () [facility] Start: 10-10-2022 AMY, Provider: Mandie Salamanca, Status: Pen, Time: 11:15 AM AMY, Provider: Mandie Salamanca, Status: Pen, Time: 11:15 AM [facility]yr[facility] Work Phone: Start: 07-12-2022 Influenza vaccination INFLUENZA (#1) [facility] Start: 04-24-2022 AMY, Provider: Ynes Sahni, Status: Pen, Time: 1:00 PM AMY, Provider: Ynes Sahni, Status: Pen, Time: 1:00 PM YW-Zkgregyzwspym[facility] Work Phone: Start: 01-21-2022 Diabetes Screening Diabetes Screening [facility] Start: 11-11-2021 ADVANCE DIRECTIVE DISCUSSION ADVANCE DIRECTIVE DISCUSSION [facility] Start: 08-24-2021 Lipid panel Lipid Screening [facility] Start: 07-24-2019 Hemoglobin A1c/Hemoglobin.total in Blood HBA1C [facility] Start: 08-12-2018 Pneumococcal Vaccine: 65+ (2 of 2 - PCV) Pneumococcal Vaccine: 65+ (2 of 2 - PCV) [facility] Start: 08-12-2018 Pneumococcal Vaccine: 65+ Years (2 of 2 - PCV) Pneumococcal Vaccine: 65+ Years (2 of 2 - PCV) [facility] Start: 10-07-2017 Shingrix Vaccine (3 of 3) Shingrix Vaccine (3 of 3) [facility] Start: 08-24-2017 Hepatitis B screening URINE ALBUMIN:CREATININE RATIO [facility] Start: 08-24-2017 Hepatitis B surface antibody level LDL CHOLESTEROL [facility] Start: 08-14-2017 3 comp foot exam completed DIABETIC FOOT EXAM [facility] Start: 11-22-2016 Hepatitis C antibody, confirmatory test DILATED RETINAL EXAM [facility] Start: 2016 PNEUMOCOCCAL: 65+ (1 - PCV) PNEUMOCOCCAL: 65+ (1 - PCV) [facility] Start: 2011 RSV patients and/or patients aged 60+ years (1 - 1-dose 60+ series) RSV patients and/or patients aged 60+ years (1 - 1-dose 60+ series) [facility] Start: 2011 RSV Vaccine (1 - 1-dose 60+ series) RSV Vaccine (1 - 1-dose 60+ series) [facility] Start: 2001 SHINGRIX VACCINE (1 of 2) SHINGRIX VACCINE (1 of 2) [facility] Start: 2001 Zoster Vaccines (1 of 2) Zoster Vaccines (1 of 2) [facility] Start: 1996 COLOGUARD (FIT-DNA) COLOGUARD (FIT-DNA) [facility] Start: 1996 Colonoscopy COLONOSCOPY [facility] Start: 1996 COLORECTAL CANCER SCREENING COLORECTAL CANCER SCREENING [facility] Start: [address] COLONOGRAPHY [facility] Start: 1996 FECAL OCCULT BLOOD FECAL OCCULT BLOOD [facility] Start: 1996 Screening for malignant neoplasm of colon [facility] Start: 1996 SIGMOIDOSCOPY SIGMOIDOSCOPY [facility] Start: 1973 DTaP/Tdap/Td Vaccines (1 - Tdap) DTaP/Tdap/Td Vaccines (1 - Tdap) [facility] Start: 1970 Urine microalbumin profile [facility] Start: 1970 Urine screening for protein Diabetes: Urine Protein Screening [facility] Start: 1969 Anxiety Screening Anxiety Screening [facility] Start: 1969 Depression Screening Depression Screening [facility] Start: 1969 HEPATITIS C SCREENING HEPATITIS C SCREENING [facility] Start: 1969 Hepatitis C screening Hepatitis C Screening [facility] Start: 1963 Adult depression screening assessment DEPRESSION SCREENING [facility] Start: 1961 Diabetic foot examination Diabetes: Foot Exam [facility] Start: 1961 Glaucoma screening Diabetes: Retinopathy Screening [facility] Start: 1957 Pneumococcal Vaccine: 65+ Years (1 of 2 - PCV) Pneumococcal Vaccine: 65+ Years (1 of 2 - PCV) [facility] Start: 02-08-1952 COVID-19 VACCINE (#1) COVID-19 VACCINE (#1) [facility] Start: 1951 ABDOMINAL AORTIC ANEURYSM SCREENING ABDOMINAL AORTIC ANEURYSM SCREENING [facility] Start: 1951 Abdominal aortic aneurysm screening Abdominal Aortic Aneurysm Screening [facility] Start: 1951 Hemoglobin A1c measurement Diabetes: Hemoglobin A1C [facility] Start: 1951 Lipid panel Lipid Panel [facility] Start: 1951 Medicare Annual Wellness Visit Medicare Annual Wellness Visit (AWV) [facility] Start: 1951 Screening for malignant neoplasm of colon [facility] Start: 1951 Thyroid stimulating hormone measurement TSH Level [facility] Patient Education Colon polyps D iverticulosis (DC) [facility] Work Phone: US Thyroid gland US thyroid Imag ing Routine Hypopituitarism (Multi) Hypogonadism male Hyperparathyroidism (Multi) Hyperprolactinemia (Multi) Type 2 diabetes mellitus without complication, with long-term current use of insulin (Multi) Thyroid nodule Ordered: 05/07/2024 [facility] Work Phone: Comment on above: Ordered: 05/07/2024 XR Abdomen Single view [facility] Immunizations Immunization Date Immunization Notes Care Provider Fa cility 10-12-2023 influenza virus vacc ine, unspecified formulation Henrry Johnson MD Work Phone: [facility] 08-15-2022 Fluzone High-Dose Quadrivalent 0.7 ML Intramuscular Suspension Prefilled Syringe [employer]rera [facility]ont Work Phone: ST-Cqhptyltcnyad-HI [facility] [place] [address] Work Phone: 09-06-2021 Fluad Quadrivalent 0 .5 ML Intramuscular Prefilled Syringe [employer] Work Phone: VW-Qfrllwbtvflei-ZP [facility] [place] [address] Work Phone: 01-18-2021 Neva COVID-19 Vac cine 0.5 ML Intramuscular Suspension [employer]rera Dupont Work Phone: PJ-Oexllpaplslgy-WT [facility] [place] [address] Work Phone: 09-08-2020 Fluad Quadrivalent 0 .5 ML Intramuscular Prefilled Syringe [employer]rera Dupont Work Phone: OQ-Ggnucjoyimjkh-AU [facility] [place] [address] Work Phone: 08-24-2020 influenza, seasonal, injectable [employer]rera Dupont Work Phone: IM-Ckicghofkelvd-ZV [facility] [place] [address] Work Phone: 08-24-2019 Seasonal trivalent influenza vaccine, adjuvanted, preservative free [employer]rera Dupont Work Phone: DY-Kaczihmlllubh-SD [facility] [place] [address] Work Phone: 08-04-2018 influenza, injectabl e, quadrivalent, preservative free [employer]rera [employer]ont Work Phone: VP-Juylpwtroijbb-XO [facility] [place] [address] Work Phone: 08-04-2018 influenza virus vacc ine, unspecified formulation Rickey Salamanca MD Work Phone: [facility] 07-19-2018 influenza, high dose seasonal, preservative-free [employer] [employer] Work Phone: ED-Vqvcpkywnkeky-AQ [facility] [place] [address] Work Phone: 08-21-2017 influenza, high dose seasonal, preservative-free [employer] [employer] Work Phone: IY-Lgtkbfrrtkduc-TT [facility] [place] [address] Work Phone: 08-12-2017 pneumococcal polysaccharide vaccine, 23 valent [facility] Work Phone: XL-Inyktarqvejlh-II [facility] [place] [address] Work Phone: 08-12-2017 zoster vaccine recombinant [employer] [employer] Work Phone: QU-Hbmruigeuoopq-AA [facility] [place] [address] Work Phone: 08-21-2016 influenza, high dose seasonal, preservative-free [employer]rera [employer] Work Phone: FM-Shadmdouviyne-ES [facility] [place] [address] Work Phone: 2015 influenza, seasonal, injectable, preservative free [employer]rera [employer] Work Phone: RC-Xvxzuccltmkjd-QK [facility] [place] [address] Work Phone: 08-04-2014 influenza, seasonal, injectable [employer]rera [employer] Work Phone: ZO-Xcfqaoyzpsoaj-AO [facility] [place] [address] Work Phone: 08-04-2014 pneumococcal polysaccharide vaccine, 23 valent [facility] Work Phone: UA-Qzywjgsnkznyr-NX [facility] [place] [address] Work Phone: 08-04-2014 zoster vaccine, live [employer] Work Phone: PC-Xzpmfvwrladvm-AC [facility] [place] [address] Work Phone: Payers Date Payer Category Payer Self-pay [id number] 2018 Medicare [id number] 2013 Unknown 1959 Self-pay [id number] 1959 Unknown [id number] 1951 Unknown [id number] 2.16. [id number] 1951 Unknown [id number] 2.16. [id number] 1951 Unknown [id number] 2.16.84 [id number] 1951 Unknown [id number] 2.16.84 [id number] 1951 Unknown [id number] 2.16.84 [id number] 1951 Unknown [id number] 2.16.84 [id number] 1951 Unknown [id number] 2.16.84 [id number] 1951 Unknown [id number] 2.16.84 [id number] 1951 Unknown [id number] 2.16.84 [id number] 1951 Unknown [id number] 2.16.84 [id number] 1951 Unknown [id number] 2.16.84 [id number] Unknown [id number] 2.16.84 [id number] Unknown [facility] [id number] Unknown [id number] 2.16.8 [id number] Social History Date Type Detail Facility Start: 01-21-2019 End: 07-09-2024 Former smoker Former smoker PV-Gdablwggdxbkp-DGB [facility] Work Phone: Start: 06-30-2013 End: 07-09-2024 Tobacco smoking status WVIS Ex-smoker [facility] Start: 11-11-1966 End: 12-12-1992 History of tobacco use Current smoker [facility] Start: 11-11-1966 End: 12-12-1992 History of tobacco use Cigarette Smoker [facility] Start: 06-30-2013 End: 07-09-2024 Tobacco use and exposure Smokeless tobacco non-user [facility] Start: 01-21-2019 Alcohol intake Current non-dr 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 of alcohol (finding) [facility] Start: 1950 Sex Assigned At Not on file [facility] Start: 01-21-2019 End: 07-09-2024 Sex Assigned At [facility] Other Start: 1950 Sex Assigned At Male F [facility] National Score (1-100), lower number is lower risk Not on file [facility] Tobacco smoking status NHIS Tobacco smoking consumption unknown [facility] Work Phone: Start: 07-09-2024 End: 07-14-2024 Alcoholic beverage intake Lifetime non-drinker (finding) [facility] Medical Equipment Procedure Code Equipment Code Equipment Original Text Equipment Identifier Dates [id number], [id number], [id number] Start: 09-15-2018 Comment on above: Use as instructed USE WITH INSULIN PEN S three times a day Pen Needle, Diabetic (Bd Ultra-Fine Mini Pen Needle) 31 gauge x 3/16 needle Start: 01-07-2024 Goals Date Patient Goal Desired Activity /State Clinical Notes 04-24-2022 to 09-16-2024 Henrry Johnson MD - 07/14/2024 11:30 AM EDTTelephone Encounter - Greg River - 06/18/2024 4:18 PM EDTTelephone Encounter - Greg River - 06/18/2024 4:18 PM EDT Note Date & Type Note Facility 09-16-2024 [facility] Subjective Gadiel Smith is a 74 y.o. year old male patient being seen for Atrial Fibrillation (S/p afib ablation); vasovagal syncope; Transient Ischemic Attack (X2); Carotid stenosis, bilateral; Hyperlipidemia ([facility] 09/15/24); and Chronic systolic congestive heart failure (Congestive heart failure due to NICM/Heart failure is stable . NYHA Class II/) Patient Active Problem List Diagnosis Diabetes mellitus type II, non insulin dependent (CMS/HCC) Thyroid nodule Rotator cuff strain 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CMS/HCC) Primary hyperparathyroidism (CMS/HCC) Hypogonadism male Hypercalcemia Central hypothyroidism Abnormal stress test Persistent atrial fibrillation (CMS/HCC) Paroxysmal atrial fibrillation (CMS/HCC) Vasovagal syncope History of transient ischemic attack (TIA) CVA (cerebral vascular accident) (CMS/HCC) Chronic systolic congestive heart failure (CMS/HCC) Atrial flutter (CMS/HCC) PFO (patent foramen ovale) Chronic systolic heart failure (CMS/HCC) S/P ablation of atrial fibrillation Carotid stenosis, bilateral HPI Patient has history of mild to moderate coronary artery disease, atrial fibrillation status post ablation,, nonischemic cardiomyopathy with recovery of left ventricular systolic function, chronic systolic heart failure, hypertension, hyperlipidemia, diabetes mellitus and history of transient ischemic attack. Patient is here today for follow-up visit and he states that he has been doing well. He denies any chest pain or shortness of breath at rest or with exertion. He tries to stay active. Denies orthopnea or paroxysmal nocturnal dyspnea or dizziness or palpitations or legs edema or legs comfort on exertion. He reports occasional numbness in the feet. His reports that they are not following good low-carb diet. ROS All systems were reviewed and they were negative except for the positive findings noted above in the history Past Medical History: Diagnosis Date Atrial fibrillation (CMS/HCC) AV block, 1st degree CHF (congestive heart failure) (CMS/HCC) Diabetes mellitus (CMS/HCC) GERD (gastroesophageal reflux disease) Hypothyroidism Memory changes PFO (patent foramen ovale) 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CMS/HCC) Stroke (CMS/HCC) TIA (transient ischemic attack) Past Surgical History: Procedure Laterality Date CARDIAC CATHETERIZATION CARPAL TUNNEL RELEASE CATARACT EXTRACTION COLONOSCOPY PARATHYROIDECTOMY SHOULDER SURGERY VASECTOMY Family History Problem Relation Name Age of Onset No Known Problems Mother No Known Problems Father No Known Problems Sister No Known Problems Brother No Known Problems Mother's Sister No Known Problems Mother's Brother No Known Problems Father's Sister No Known Problems Father's Brother No Known Problems Maternal Grandmother No Known Problems Maternal Grandfather No Known Problems Paternal Grandmother No Known Problems Paternal Grandfather No Known Problems Other Social History Tobacco Use Smoking status: Former Types: Cigarettes Quit date: 1992 Years since quittin.8 Smokeless tobacco: Never Vaping Use Vaping Use: Never used Substance Use Topics Alcohol use: Not Currently Drug use: Never Allergies Allergies Allergen Reactions No Known Allergies Medications Current Outpatient Medications: apixaban (Eliquis) 5 mg tablet, Take 1 tablet (5 mg) by mouth in the morning and at bedtime., Disp: 60 tablet, Rfl: 11 buPROPion SR (Wellbutrin SR) 150 mg 12 hr tablet, Take 1 tablet twice a day by oral route., Disp: , Rfl: cabergoline (Dostinex) 0.5 mg tablet, Take 1 tablet every other day by oral route., Disp: , Rfl: carvedilol (Coreg) 6.25 mg tablet, Take 1 tablet (6.25 mg) by mouth in the morning and at bedtime., Disp: 180 tablet, Rfl: 3 esomeprazole (NexIUM) [address] capsule, Take 40 mg by mouth before breakfast. Do not open capsule., Disp: , Rfl: Farxiga 10 mg, TAKE 1 TABLET BY MOUTH EVERY DAY IN THE MORNING, Disp: 90 tablet, Rfl: 3 furosemide (Lasix) 40 mg tablet, Take 1 tablet by mouth daily for fluid retention as directed, Disp: 90 tablet, Rfl: 3 Lantus Solostar U-100 Insulin 100 unit/mL (3 mL) pen, Inject 30 Units under the skin in the morning., Disp: , Rfl: levothyroxine (Synthroid, Levoxyl) 75 mcg tablet, 37.5 mcg in the morning., Disp: , Rfl: lisinopril 5 mg tablet, Take 1 tablet (5 mg) by mouth in the morning., Disp: 30 tablet, Rfl: 11 metFORMIN (Glucophage) 500 mg tablet, Take 500 mg by mouth at bedtime., Disp: , Rfl: rosuvastatin (Crestor) 40 mg tablet, Take 1 tablet (40 mg) by mouth in the morning., Disp: 90 tablet, Rfl: 3 sildenafil (Viagra) 25 mg tablet, Take 25 mg by mouth if needed each day., Disp: , Rfl: spironolactone (Aldactone) 25 mg tablet, TAKE 1/2 TABLET BY MOUTH IN THE MORNING, Disp: 45 tablet, Rfl: 3 testosterone (Androgel) 50 mg/5 gram (1 %) gel, Place 50 mg on the skin in the mor (more content not included)... [facility] 07-14-2024 History of Present illness Narrative Subjective Patient ID: Alexis Smith is a 73 y.o. male who presents for Thyroid Nodule (Ultrasound 06/09/24. ) Pt has a long h/o thyroid nodules and a remote h/o parathyroidectomy. H/O prolactinoma tx medically. 05/3024 thyroid US shows a [id number] RT TR5 nodule. Pt's lead pressman would like the nodule biopsied. Review of Systems All other systems reviewed and are negative. Family History Problem Relation Name Age of Onset Diabetes type II Mother Active Ambulatory Problems Diagnosis Date Noted Alzheimer's disease with late onset ([facility]) 06/27/2024 Dementia in other diseases classified elsewhere, unspecified severity, without behavioral disturbance, psychotic disturbance, mood disturbance, and anxiety ([facility]) 06/27/2024 History of ischemic stroke 06/27/2024 Personality change 06/27/2024 Pituitary mass ([facility]/HCC) 06/27/2024 Depression ([facility]) 06/27/2024 Memory impairment 06/27/2024 Abnormal stress test 04/28/2015 Acquired hypothyroidism ([facility]/HCC) 07/09/2024 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[facility]) 02/23/2015 Atrial flutter ([facility]) 11/28/2022 Carotid stenosis, bilateral 04/01/2024 Chronic systolic heart failure (CMS/HCC) 11/15/2022 Constipation 07/09/2024 CVA (cerebral vascular accident) (CMS/HCC) 10/26/2022 Diverticulosis of colon 07/09/2024 History of transient ischemic attack (TIA) 10/26/2022 Hypercalcemia 12/23/2012 Hyperlipidemia (CMS/HCC) 07/09/2024 Hypertension (CMS/HCC) 07/09/2024 Hypogonadism male 12/23/2012 Incontinence of feces with fecal urgency 07/09/2024 Paroxysmal atrial fibrillation (CMS/HCC) 10/18/2022 Persistent atrial fibrillation (HCC) (CMS/HCC) 10/16/2022 PFO (patent foramen ovale) 11/28/2022 Primary hyperparathyroidism (CMS/HCC) 12/24/2019 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CMS/HCC) 11/16/2009 Pure hypercholesterolemia ([facility]) 07/09/2024 Thyroid nodule ([facility]) 11/16/2009 Type 2 diabetes mellitus with hyperglycemia ([facility]) 07/09/2024 Resolved Ambulatory Problems Diagnosis Date Noted Diarrhea 07/09/2024 Dietary counseling and surveillance 07/09/2024 Rotator cuff strain 06/16/2013 S/P ablation of atrial fibrillation 05/02/2023 Past Medical History: Diagnosis Date Afib ([facility]) CHF (congestive heart failure) ([facility]) Diabetes mellitus type II, controlled ([facility]) GERD (gastroesophageal reflux disease) Hypercholesterolemia ([facility]) Hypogonadism in male Hypothyroid ([facility]) Stroke ([facility]) 2016 Past Surgical History: Procedure Laterality Date CARDIAC ELECTROPHYSIOLOGY MAPPING AND ABLATION CARPAL TUNNEL RELEASE Right 2014 CT ANGIOGRAM HEART CORONARY 04/26/2023 CT ANGIOGRAM TAVR 04/26/2023 PARATHYROIDECTOMY 12/2019 SHOULDER SURGERY Right 2009 and 2012 tendon repair THYROID 2009 VASECTOMY No Active Allergies Current Outpatient Medications on File Prior to Visit Medication Sig Dispense Refill albuterol HFA 90 mcg/act inhaler Inhale 2 puffs every 4 (four) hours if needed buPROPion SR (Wellbutrin SR) 150 MG 12 hr tablet every 12 (twelve) hours cabergoline (Dostinex) 0.5 MG tablet Take 0.5 mg by mouth every other day carvedilol (Coreg) 6.25 MG tablet TAKE 1 TABLET (6.25 MG) BY MOUTH IN THE MORNING AND AT BEDTIME. Eliquis 5 MG tablet Take 5 mg by mouth in the morning and 5 mg before bedtime. escitalopram (Lexapro) 10 MG tablet Take 10 mg by mouth Daily esomeprazole (NexIUM) [address] capsule 2 capsules 1 (one) time each day at the same time Farxiga 10 MG Take 10 mg by mouth in the morning. furosemide (Lasix) 40 MG tablet TAKE 1 TABLET BY MOUTH DAILY FOR FLUID RETENTION DIRECTED insulin glargine (Lantus) 100 UNIT/ML injection as directed Subcutaneous 30 units in AM 15 units in PM levothyroxine (Synthroid, Levoxyl) 75 MCG tablet Take by mouth Daily before meals lisinopril 5 MG tablet TAKE 1 TABLET BY MOUTH EVERYDAY metFORMIN (Glucophage) 1000 MG tablet Take 500 mg by mouth in the morning. Take with meals. rosuvastatin (Crestor) 40 MG tablet Take 40 mg by mouth Daily spironolactone (Aldactone) 25 MG tablet Take by mouth Daily testosterone (AndroGel) 50 MG/5GM (1%) gel 1 (one) time each day at the same time [DISCONTINUED] atorvastatin (Lipitor) 20 MG tablet Take 20 mg by mouth in the morning. No current facility-administered medications on file prior to visit. Objective Last Recorded Vitals Vitals: 07/14/24 1122 BP: 131/62 ENT Physical Exam Constitutional Appearance: patient appears well-developed and well-nourished, Head and Face Appearance: head appears normal and face appears atraumatic; Ear Ear comments: To ears normal Nose External Nose: nares patent bilaterally; external nose normal; Internal Nose: nasal mucosa normal; Oral Cavity/Oropharynx Lips: normal; Teeth: normal; Gums: gingiva normal; Tongue: normal; Oral mucosa: normal; Hard palate: normal; Neck Neck: neck normal; neck palpation normal; Thyroid: thyroid normal; Respiratory Inspection: breathing unlabored; normal breathing rate; Auscultation: breath sounds are clear; Cardiovascular Inspection: extremities are warm and well perfused; no peripheral edema present; Auscultation: regular rate and rhythm; Assessment/Plan Diagnoses and all orders for this visit: Thyroid nodule (CMS/HCC) Pt has a very small TR5 nodule. It is probably to small to reliably biopsy, even with US guidance. I will plan to follow closely with periodic US, starting in 5 mo, and get an FNA if sig growth found documented in this encounter [facility] 06-18-2024 Telephone encounter Note Summary: Sav Received a mail from Sav with a notice on the Authorization for MRI, Brain, W/O Contrast Dated: 06/04/24 Status: Approve Service Requested: MRI, Brain, W/O Contrast Effective Dates: 06/04/2024 - 09/01/2024 Reference #: [id number] Uploaded into scan docs. Please allow time for upload. [facility] 06-18-2024 Miscellaneous Notes Summary: Sav Received a mail from Sav with a notice on the Authorization for MRI, Brain, W/O Contrast Dated: 06/04/24 Status: Approve Service Requested: MRI, Brain, W/O Contrast Effective Dates: 06/04/2024 - 09/01/2024 Reference #: [id number] Uploaded into scan docs. Please allow time for upload. documented in this encounter [facility] 05-07-2024 History of Present illness Narrative Consults Reason For Consult Pituitary d, high prolactin, hypogonadism History Of Present Illness Gadiel Smith is a 73 y.o. male presenting with With multiple medical conditions atrial fibrillation is stable Treate dby cardiology Type 2 diabetes mellitus w/o microvascular complications, he has a history of stroke -Up to date with optho follow up yearly he did this yearly and recently in 2022 -recent hba1c done by primary care -We will continue his insulin regimen to once a day lantus, 30 units QAM -Continue metformin 500 mg twice a day -Due for microalb urine, lipid profile as well He see his primary care for follow-up he has a new primary care was taking care of him Pituitary macroprolactinoma c/w central hypogonadism, central hypothyroidism -Stable, doing well on current therapy, we will need to repeat Testosterone is due -We will check , ft4, , cortisol, total and free testosterone today and adjust medication dose accordingly. -MRI on 01/01 stable, Primary hyperparathyroidism s/p partial parathyroidectomy (12/2001) -Calcium levels stable in 8.0 range -Continue citracal BID Thyroid nodules -Prior FNA bx benign follicular nodule -Due for yearly thyroid US for surveillance, we are ordering one today last 2018 Any family history of thyroid cancer? no Any personal history of radiation to your head/neck? no Past Medical History He has a past medical history of Benign neoplasm of pituitary gland (Multi) (10/10/2022), Hyperlipidemia, unspecified (10/10/2022), Nontoxic single thyroid nodule (10/10/2022), Other specified hypothyroidism (10/10/2022), Testicular hypofunction (10/10/2022), and Type 2 diabetes mellitus with other specified complication (Multi) (10/10/2022). Surgical History He has a past surgical history that includes Other surgical history (11/30/2020); Other surgical history (11/30/2020); Other surgical history (11/30/2020); and Other surgical history (11/30/2020). Social History He has no history on file for tobacco use, alcohol use, and drug use. Family History No family history on file. Allergies Patient has no known allergies. Review of Systems Past Medical History: Diagnosis Date Benign neoplasm of pituitary gland (Multi) 10/10/2022 Pituitary macroadenoma Hyperlipidemia, unspecified 10/10/2022 Hyperlipemia Nontoxic single thyroid nodule 10/10/2022 Thyroid nodule Other specified hypothyroidism 10/10/2022 Central hypothyroidism Testicular hypofunction 10/10/2022 Hypogonadism male Type 2 diabetes mellitus with other specified complication (Multi) 10/10/2022 Type 2 diabetes mellitus with other specified complication, with long-term current use of insulin Past Surgical History: Procedure Laterality Date OTHER SURGICAL HISTORY 11/30/2020 Knee arthroscopy OTHER SURGICAL HISTORY 11/30/2020 Appendectomy OTHER SURGICAL HISTORY 11/30/2020 Vasectomy OTHER SURGICAL HISTORY 11/30/2020 Parathyroidectomy Social History Socioeconomic History Marital status: Unknown Spouse name: Not on file Number of children: Not on file Years of education: Not on file Highest education level: Not on file Occupational History Not on file Tobacco Use Smoking status: Not on file Smokeless tobacco: Not on file Substance and Sexual Activity Alcohol use: Not on file Drug use: Not on file Sexual activity: Not on file Other Topics Concern Not on file Social History Narrative Not on file Social Determinants of Health Financial Resource Strain: Not on file Food Insecurity: Not on file Transportation Needs: Not on file Physical Activity: Not on file Stress: Not on file Social Connections: Not on file Intimate Partner Violence: Not on file Housing Stability: Not on file Physical Exam ROS, PMH, FH/SH, surgical history and allergies have been reviewed. Last Recorded Vitals There were no vitals taken for this visit. Relevant Results If you would like to pull in Medications, type .meds If you would like to pull in Lab results for the last 24 hours, type . If you would like to pull in specific Lab results, type .ll If you would like to pull in Imaging results, type .imgrslt :[id number]} Lab Review No results found for: BILITOT , CALCIUM , CO2 , CL , CREATININE , GLUCOSE , ALKPHOS , K , PROT , NA , AST , ALT , BUN , ANIONGAP , MG , PHOS , GGT , LDH , ALBUMIN , AMYLASE , LIPASE , GFRF , GFRMALE No results found for: TRIG , CHOL , LDLCALC , HDL No results found for: HGBA1C The ASCVD Risk score (Jamal JIMENEZ, et al., 2019) failed to calculate for the following reasons: The systolic blood pressure is missing Cannot find a previous HDL lab Cannot find a previous total cholesterol lab The smoking status is invalid Unable to determine if patient is Non- Assessment/Plan Problem List Items Addressed This Visit None Visit Diagnoses Codes 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 Relevant Medications Lantus Solostar U-100 Insulin 100 unit/mL (3 mL) pen levothyroxine (Synthroid, Levoxyl) 75 mcg tablet testosterone 1 % (50 mg/5 gram) gel in packet Other Relevant Orders Cortisol Prolactin Testosterone,Free and Total Albumin-Creatinine Ratio, Urine Random Hemoglobin A1C Lipid Panel Comprehensive Metabolic Panel Thyroxine, Free US thyroid Parathyroid Hormone, Intact MR sella w and wo IV contrast Hypogonadism male E29.1 Relevant Medications Lantus Solostar U-100 Insulin 100 unit/mL (3 mL) pen levothyroxine (Synthroid, Levoxyl) 75 mcg tablet testosterone 1 % (50 mg/5 gram) gel in packet Other Relevant Orders Cortisol Prolactin Testosterone,Free and Total Albumin-Creatinine Ratio, Urine Random Hemoglobin A1C Lipid Panel Comprehensive Metabolic Panel Thyroxine, Free US thyroid Parathyroid Hormone, Intact MR sella w and wo IV contrast Hyperparathyroidism (Multi) E21.3 Relevant Medications Lantus Solostar U-100 Insulin 100 unit/mL (3 mL) pen levothyroxine (Synthroid, Levoxyl) 75 mcg tablet testosterone 1 % (50 mg/5 gram) gel in packet Other Relevant Orders Cortisol Prolactin Testosterone,Free and Total Albumin-Creatinine Ratio, Urine Random Hemoglobin A1C Lipid Panel Comprehensive Metabolic Panel Thyroxine, Free US thyroid Parathyroid Hormone, Intact MR sella w and wo IV contrast Hyperprolactinemia (Multi) E22.1 Relevant Medications Lantus Solostar U-100 Insulin 100 unit/mL (3 mL) pen levothyroxine (Synthroid, Levoxyl) 75 mcg tablet testosterone 1 % (50 mg/5 gram) gel in packet Other Relevant Orders Cortisol Prolactin Testosterone,Free and Total Albumin-Creatinine Ratio, Urine Random Hemoglobin A1C Lipid Panel Comprehensive Metabolic Panel Thyroxine, Free US thyroid Parathyroid Hormone, Intact MR sella w and wo IV contrast Type 2 diabetes mellitus without complication, with long-term current use of insulin (Multi) E11.9, Z79.4 Relevant Medications Lantus Solostar U-100 Insulin 100 unit/mL (3 mL) pen levothyroxine (Synthroid, Levoxyl) 75 mcg tablet testosterone 1 % (50 mg/5 gram) gel in packet Other Relevant Orders Cortisol Prolactin Testosterone,Free and Total Albumin-Creatinine Ratio, Urine Random Hemoglobin A1C Lipid Panel Comprehensive Metabolic Panel Thyroxine, Free US thyroid Parathyroid Hormone, Intact MR sella w and wo IV contrast Thyroid nodule E04.1 Relevant Orders US thyroid Parathyroid Hormone, Intact MR sella w and wo IV contrast Hyperlipemia (272.4) (E78.5) 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244.9) (E03.8) Hypogonadism male (257.2) (E29.1) Pituitary macroadenoma (227.3) (D35.2) Thyroid nodule (241.0) (E04.1) Type 2 diabetes mellitus with other specified complication, with long-term current use of insulin (250.80,V58.67) (E11.69,Z79.4) Type 2 diabetes mellitus w/o microvascular complications, he has a history of stroke -[facility] yearly he did this yearly and recently in 2022 -We will continue his insulin regimen to once a day lantus, 35units QAM -Continue metformin 500 mg twice a day -Due for microalb urine, lipid profile as well Orders placed 2. Pituitary macroprolactinoma c/w central hypogonadism, central hypothyroidism -Stable, doing well on current therapy, we will need to repeat -We will check , ft4, , cortisol, total and free testosterone today and adjust medication dose accordingly. -MRI on 01/01 stable, we will order MRI 3. Primary hyperparathyroidism s/p partial parathyroidectomy (12/2001) -Calcium levels stable in 8.0 range -Continue citracal BID 4. Thyroid nodules -Prior FNA bx benign follicular nodule -Due for yearly thyroid US for surveillance, we are ordering one today I spent a total of 45+ minutes on the date of the service which included preparing to see the patient, prev-yx-soba patient care, completing clinical documentation, obtaining and / or reviewing separately obtained history, counseling and educating the patient/family/caregiver, ordering medications, tests, or procedures, communicating with other healthcare providers (not separately reported), independently interpreting results, not separately reported, and communicating results to the patient/family/caregiver, real-time telemedicine visit using audiovisual technology with patient's verbal consent. Name and date of verified. Mandie Salamanca MD documented in this encounter [facility] Work Phone: 04-14-2024 Procedure note [facility] 04-01-2024 Note In light pt LDL 98.8 with noted moderate carotid stenosis and DM will increase statin- he states lipitor 40 mg in past caused myalgias therefore will switch to crestor 40 mg daily, repeat Carotid US to assess stenosis and LFT with lipid level in 3 months- he voiced agreement and understanding to call office for any myalgias or concerns [facility] 04-01-2024 Note [id number]= 6 Continue eliquis anticoagulation. Continue coreg- rate is well controlled and pt remains in Sinus rhythm RTC [address] Espinoza [facility] 04-01-2024 Note Congestive heart martha lure due to NICM Heart failure is stable . NYHA Class II. Continue current treatment regimen. Dietary sodium restriction. Encouraged daily monitoring of the patient's weight. Regular aerobic exercise. Continue current medications. Refer to Cardiology. Heart failure will be reassessed in 6 months. Currently euvolemic without exacerbation [facility] 04-01-2024 Note Remains is sinus rhy thm on ECG today [facility] 04-01-2024 Note Diabetes is uncontro lled A1C 9.6 in December- states that he eats doughnuts most mornings, and that his diet could be better F/U with PCP [facility] 04-01-2024 Note [facility]TP CARDIOLOGY PROGR ESS NOTE [...] on 10/15 and he went to the [facility] emergency department was found to be [...] moist. Eyes: E (more content not included)... [facility] 10-29-2023 Evaluation note Encounter Date Diagnosis Assessment [...] improved w present med increase in dose. [facility] Other 11-03-2023 Evaluation note* Encounter Date Diagnosis Assessment Notes Treatment Notes Treatment Clinical Notes Sep, Anxiety (ICD-10 - F41.9) [facility] 10-31-2023 Evaluation note* Encounter Date Diagnosis Assessment Notes Treatment Notes Treatment Clinical Notes Aug, Anxiety (ICD-10 - F41.9) [facility] 10-09-2023 Evaluation note* Encounter Date Diagnosis [...] from 25mg to 50mg for better results. [facility] Other 11-30-2022 Chief complaint Narrative - Reported* An interactive [...] Patient presents for a follow up visit. BK-Nzyllgmnduzzv-FFX [address] Work Phone: [phone] 238-921808-22-2022 Miscellaneous Notes* Telephone Encounter - Janee Hughes - 07/02/2022 2:37 PM EDT Received Thyroid US report from [facility]. Indexed into chart. [facility] Chief complaint Narrative - Reported* An [...] follow-up for hypothyroidism, pituitary, and diabetes today. [facility] [address] Work Phone: Evaluation noteNo [employer] Other Evaluation note* Diagnosis Onset Date Resolution Status Bronchitis noneactive Constipation acute Incontinence of feces with fecal urgency acute [facility] Work Phone: Evaluation note* Diagnosis Hypopituitarism (Multi)- Primary Panhypopituitarism Hypogonadism male Other testicular hypofunction Hyperparathyroidism (Multi) Hyperparathyroidism, unspecified Hyperprolactinemia (Multi) Other and unspecified anterior pituitary hyperfunction Type 2 diabetes mellitus without complication, with long-term current use of insulin (Multi) Thyroid nodule Nontoxic uninodular goiter documented in this encounter [facility] Work Phone: Evaluation note* Diagnosis Thyroid nodule (CMS/HCC)- Primary Nontoxic uninodular goiter documented in this encounter [facility] Author Merly [facility] April 14, 2024 11:26am Note Date/Time April 14, 2024 11:26 am [facility] [address] [place] [address] Gastroenterology H&P Signed Patient: Gadiel Smith MR#: [id number] : 1950 Acct:[id number] Age/Sex: 73 / M Adm Date: 4 Loc: Room: Type: [facility] Attending Dr: Merly Paul DO Copies to: Merly Paul, DO Joseluis Quiroz MD~ Date of Service: 04/14/2024 HISTORY & [...] signed by Merly Paul DO> 04/14/24 1126 [facility] Work Phone: Hisgpxl general Narrative - Reported* Type Description Date Medical History Diabetes mellitus Medical History Hyperlipemia Medical History Acid reflux Medical History Hiatal hernia Medical History Pituitary tumor Surgical History knee surgery Surgical History shoulder surgery Surgical History thyroid nodule removed Hospitalization History hematoma related to fall 2011 Hospitalization History TIA 03/2020 Hospitalization History DEHYDRATION 09/2020 [facility] Other History of Present illness Narrative* This [...] * -Most recent US on 12/2019 in [place], records not available * -Due for US [...] severe hypoglycemia episode to 30s requiring third alliance party assistance. Patient confused during the event. 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 [facility]ev[facility]sezd[facility] [address] Work Phone: History of Present [...] * -Most recent US on 12/2019 in [place], records not available * -Due for US [...] severe hypoglycemia episode to 30s requiring third alliance party assistance. Patient confused during the event. 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 FV-Soflppjnkmxhy-ULP [address] Work Phone: Summary Purpose Family [...] Diabetes mellitus Unknown Hypertension Unknown Advance Directives Advance Directive Response Recorded Date/ Time Advance Directives No October 17, 2021 8:22am Chief Complaint and Reason for Visit Chief Complaint Cough bowel urgency- more frequent in the last month. diarrhea/constipation diarrhea/constipation Reason for Visit Bronchitis Constipation Incontinence of feces with fecal urgency Reason for Referral Specialty Diagnoses / Procedures Referred By Saeid t Referred To Contact Radiology Diagnoses Hypopituitarism (Multi) Hypogonadism male Hyperparathyroidism (Multi) Hyperprolactinemia (Multi) Type 2 diabetes mellitus without complication, with long-term current use of insulin (Multi) Thyroid nodule Procedures MR sella w [place] [id number] [facility] Department of [place] [address] Referral ID Status Reason Start Date Expiration Date Visits Requested Visits Authorized [id number] Pending Review Perform Procedure 05/07/2024 05/07/2025 1 1 Specialty Diagnoses / Procedures Referred By Saeid vences Referred To Contact Radiology Diagnoses Hypopituitarism (Multi) Hypogonadism male Hyperparathyroidism (Multi) Hyperprolactinemia (Multi) Type 2 diabetes mellitus without complication, with long-term current use of insulin (Multi) Thyroid nodule [place] [address] [facility] Department [place] [address] Referral ID Status Reason Start Date Expiration Date Visits Requested Visits Authorized [id number] Authorized Perform Procedure 05/07/2024 05/07/2025 1 1 Additional Source Comments (unrecognized sect ion and content) No Status Records FoundNo Status Records FoundNo Status Records FoundNo Status Records FoundNo Status Records FoundNo Status Records FoundNo Status Records FoundNo Status Records Found INFORMATION SOURCE (unrecogn ized section and content) DATE CREATED AUTHOR 05/07/2018 [facility] DATE CREATED AUTHOR AUTHOR'S ORGANIZ ATION 10/11/2022 [facility] [place] DATE CREATED AUTHOR AUTHOR'S ORGANIZ ATION 10/11/2022 [employer] DATE CREATED AUTHOR AUTHOR'S ORGANIZ ATION 03/04/2023 [facility] DATE CREATED AUTHOR AUTHOR'S ORGANIZ ATION 04/22/2024 [facility] DATE CREATED AUTHOR AUTHOR'S ORGANIZ ATION 06/21/2024 [facility] DATE CREATED AUTHOR AUTHOR'S ORGANIZ ATION 07/15/2024 [facility] DATE CREATED AUTHOR AUTHOR'S ORGANIZ ATION 09/18/2024 [facility] Source Comments (unrecognize d section and content) In the event this informatio n is protected by the Federal Confidentiality of Alcohol and Drug Abuse Patient Records regulations: The Federal rules restrict any use of the information to criminally investigate or prosecute any alcohol or drug abuse patient.[facility] HospitalIn the event this information is protected by the Federal Confidentiality of Alcohol and Drug Abuse Patient Records regulations: The Federal rules restrict any use of the information to criminally investigate or prosecute any alcohol or drug abuse patient.[facility] Reason for Visit (unrecogniz ed section and content) Reason Comments Received Outside Medical Records Receive d Thyroid US report from [facility]. Indexed into chart. Reason Comments Insurance Authorization [place] Reason Comments Follow-up Pituitary Problem Reason Comments Thyroid Nodule Ultrasound 06/09/24. Care Teams (unrecognized sec tion and content) Fire Apparatus Engineer Relationship Specialty Start Date End Date Cabrera Dupont MD PCP - General Family Practice 01/21/19 Team Status: Active Member Role Status Dates Joseluis Quiroz MD Primary Care Provider Active Team Status: Inactive Member Role Status Dates Joseluis Quiroz MD Primary Care Provider Active Start: March 06, 2024 End: March 06, 2024 SELVIN Oleary Attending Provider Active S tart: March 06, 2024 End: March 06, 2024 Team Status: Inactive Member Role Status Dates Joseluis Quiroz MD Primary Care Provider Active Start: March 18, 2024 End: March 18, 2024 Merly Paul DO Attending Provider Active St art: March 18, 2024 End: March 18, 2024 Team Status: Inactive Member Role Status Dates Joseluis Quiroz MD Primary Care Provider Active Start: April 14, 2024 End: April 14, 2024 Merly Paul DO Attending Provider Active St art: April 14, 2024 End: April 14, 2024 Team Status: Active Member Role Status Dates Joseluis Quiroz MD Primary Care Provider Active Start: April 14, 2024 Merly Paul DO Attending Provider, Other Provider Active Start: April 14, 2024 Fire Apparatus Engineer Relationship Specialty Start Date End Date Cabrera Dupont MD PCP - General Family Medicine 01/21/19 Fire Apparatus Engineer Relationship Specialty Start Date End Date Cabrera Dupont MD [address] [place] [address] PCP - General 11/30/20 Fire Apparatus Engineer Relationship Specialty Start Date End Date Joseluis Quiroz MD [address] [facility] [place] [address] PCP - [facility] Medicine 03/23/24 Fire Apparatus Engineer Relationship Specialty Start Date End Date Joseluis Quiroz MD [address] [place] [facility] [place] [address] PCP - General Family Medicine 03/23/24 FOR RECORDS PERTAINING TO PATIENTS WHO ARE [...] BE BASED ON THE PRIMARY CLINICAL RECORDS. [facility] [employer] provides no warranty or guarantee of the accuracy or completeness of information in this document.
[2024-12-10 11:00] LABS: Estimated Average Glucose 214 mg/dL; Glycohemoglobin A1C 9.1 % (4.5-6.2)
[2024-12-10 11:01] LABS: Free T4 1.46 ng/dL (0.76-1.46)
[2024-12-10 11:29] LABS: Thyroid Stimulating Hormone 1.297 uIU/mL (0.358-3.740)
== END 2024-12-10 08:50 | disposition home or self-care (01) ==
LOC: LAB 08:50
PROVIDERS: PCP Family Medicine; Visit Provider Family Medicine
DX: E11.65 Type 2 diabetes mellitus with hyperglycemia (principal); E03.9 Hypothyroidism, unspecified
CPT/HCPCS: 36415; 82043; 82570; 83036; 84439; 84443

== ENCOUNTER 2024-12-10 08:54 | Outpatient (OUT) | payer MEDICARE, SELFPAY ==
--- OUTSIDE RECORDS SUMMARY | 2024-12-10 09:00 | XMS_ITS | CCD ---
Author Organization [facility] CliniSymn Care Team Providers Care Double End Trimmer Name Role Phone PHYSICIAN, DEFAULT Unavailable Unavailable PHYSICIAN, DEFAULT Unavailable Unavailable PHYSICIAN, DEFAULT Unavailable Unavailable PHYSICIAN, DEFAULT Unavailable Unavailable Cabrera Dupont Unavailable Cabrera Dupont MD Primary Care Provider Unavailable Unavailable Dr. Cabrera Dupont Primary Care Unavailab le Hatipoglu, Dr. Mandie Piper Attending Syed Hernandezoglu, Dr. Mandie Pipre Referring Unavai lable Self, Referral Referring Unavailable Hatipoglu, Dr. Mandie Piper Attending Syed Dupont, Dr. Cabrera Gaspar Primary Care Unavailab le QUIROZ, DR JOSELUIS Austin Primary Care Unavailable YEARTYTONY Attending Unavailable YEARTONY QUIROS Admitting Unavailable MISC, DR LOZADA Attending Unavailable WEST, DR GEORGIE Erwin Consulting Unavailable QUIROZ, DR JOSELUIS Austin Primary Care Unavailable MISC, DR LOZADA Admitting Unavailable MISC, DR LZOADA Consulting Unavailable TONA ESPINOZA Admitting Unavailable QUIROZ, [...] Care Provider DO Merly Paul Attending Provider [phone] Joseluis Quiroz Primary Care Unavailable Merly Paul Admitting Unavailable Merly Paul Attending Unavailable Cabrera Dupont MD Primary Care Provider RAPHAEL SPRINGER Attending Unavailable HENRRY JOHNSON Attending Unavailable JOSELUIS QUIROZ Referring Unavailable MILAN PEÑA Attending Unavailable JANEE REDDY Attending Unavailable Cabrera Dupont MD Primary Care Provider [phone] Joseulis Quiroz MD Primary Care Provider Allergies Allergy Classification Reported Allergen(s) Allergy Type Date of Onset Reaction(s) Facility (2 sources) Lisinopril Drug Allergy 5 Other: See Comments [facility] Work Phone: (1 source) Lisinopril Propensity to adverse reactions 5 [facility] Work Phone: Medications Current Medications Medication Drug Class(es) Dates Sig (Normalized) Sig (Original) [id number] 200 actuat albuterol 0.09 mg/actuat metered dose [...] other day for 0 *Pick strength-form from SureDone for eRX* Jul, Active Ocuvite TABS WYATT [...] Oral Once a day *Pick strength-form from SureDone for eRX* Jul, Active Start: 07-23-2022 take 1 tablet by woody th twice daily buPROPion HCl ER (XL) 150MG buPROPion HCl ER (XL) 150MG, 1 (one) Tablet Tablet two times daily # 180, 07/23/2022, Ref. x1. 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 insulin] Episodic Other and [...] 11-13-2022 Episodic Other aftercare (1 source) Other long term care pharmacist (current) drug therapy; Translations: [OTH RESIDENTIAL CURRENT DRUG THERAPY] Onset: 11-13-2022 Episodic Other aftercare (1 source) tank terminal gauger (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 oral hypoglycemic drugs; Translations: [HOMEMAKER COMPANION USE ORAL HYPOGLYCEMIC DX] Onset: 11-13-2022 Episodic Other aftercare (1 source) tank terminal gauger (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 insulin; Translations: [RESIDENTIAL CURRENT USE OF INSULIN] Onset: 11-13-2022 Episodic Other aftercare (1 source) skilled nursing (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 aspirin; Translations: [HOMEMAKER COMPANION CURRENT USE OF ASPIRIN] Onset: 10-17-2022 Episodic [...] Range Facility Office Visiton 09-16-2024 Follow-up visit [id number] Gadiel Smith 1950 M Date Provider Department Center 09/16/2024 [id number]-VUXMCEMILAN PEÑA [facility] Family History Problem Relation Age of [...] Paternal Grandmother Paternal Grandfather Other Level of Service:10899 MD OFFICE/OUTPATIENT ESTABLISHED MOD MDM 30 MIN Reason for Visit and Comments: Atrial Fibrillation [80] - S/p afib ablation vasovagal syncope [Other] Transient Ischemic Attack [538942] - X2 Carotid stenosis, bilateral [Other] Hyperlipidemia [182] - HAD LABS 09/15/24 Chronic systolic congestive heart failure [Other] - Congestive heart failure due to NICM Heart failure is stable . NYHA Class II Normal [facility] CNPMirta 06-18-2024 CNPN Telephone (PULMMN) GAIDEL SMITH ([id number]) 1950 M Date Time Provider Department 06/18/24 RICKEY SALAMANCA PULROCKY During your visit today, we recorded the following information about you: Greg River 06/18/2024 4:24 PM Signed Received a mail from Sav with a notice on the Authorization for MRI, Brain, W/O Contrast Dated: 06/04/24 Status: Approve Service Requested: MRI, Brain, W/O Contrast Effective Dates: 06/04/2024 - 09/01/2024 Reference #: [id number] Uploaded into scan docs. Please allow time [...] LANCETS) lancets Use as instructed - Insulin [place], Disposable, (BD ULTRAFINE III MINI PEN) 31 [...] Status:Closed by GREG RIVER on 06/18/24 Normal [facility] 36on 04-21-2024 36 Regarding lab result s from 04/16/2024: YUN Gustafson MA Let him know liver function is perfect and cholesterol levels also are great- continue all meds and see you next time. Good job!! Spoke with patient's and made her aware. Normal [facility] Capillary blood glucose corey urement by glucometer (mass/volume)Ordered By: Merly Paul on 04-14-2024 Glucose [Mass/Vol] 73 mg/dL Normal [facility] Comment on above: Random Glucose Refer ence Range is dependent on time and content of last meal. Glucose of more than 200 mg/dL in a nonstressed, ambulatory subject supports the diagnosis of Diabetes Mellitus. Result Comment: [place] om Glucose Reference Range is dependent on time and content of last meal. Glucose of more than 200 mg/dL in a nonstressed, ambulatory subject supports the diagnosis of Diabetes Mellitus. PERFORMED BY: [place] [address] [place] [address] PATHOLOGIST B2B ACCOUNT EXECUTIVE ANJANA SEWELL M.D. Performed By: #### G LULS #### Point of Care testing , Harlan 04-14-2024 L Specimen: [id number] Received: 04/14/24 Status: MAYO Shi Num: [id number] Spec Type: Surgical Subm Dr: Merly Paul DO Tissues: A Colon Biopsy (CECAL POLYP) B Colon Biopsy (ASC POLYPS) C Colon Biopsy (TRANSV POLYP) D Colon Biopsy (DESC POLYP) Procedures: HE/8, Gross/Micro L4/4 Age/ Patient Sex Location Account Attending Physician Gadiel Smith 73/M [id number] Merly Paul DO SPEC NUM: [id number] RECD: 04/14/24 STATUS: MAYO SHI NUM: [id number] DIONICIO: 04/14/24- SUBM DR: Merly Paul DO ENTERED: 04/14/24 [facility] DR: Joseluis Quiroz MD SPEC TYPE: [...] adenoma Clinical Information Diarrhea, constipation ---- Specimen: [id number] Received: 04/14/24 Status: MAYO Shi Num: [id number] Spec Type: Surgical Subm Dr: Merly Paul, DO Tissues: A Colon Biopsy (CECAL POLYP) B Colon Biopsy (ASC POLYPS) C Colon Biopsy (TRANSV POLYP) D Colon Biopsy (DESC POLYP) Procedures: LILI/Claribel, Rivas/Micro L4/4 ---- Patient: Gadiel Smith [id number] (Continued) ---- Specimen: [id number] Received: 04/14/24 (Continued) Signed (signature on file) Suki Jackson MD 04/16/24 1270 ---- Specimen: [id number] Received: 04/14/24 Status: MAYO Shi Num: [id number] Spec Type: Surgical Subm Dr: Merly Paul, DO Tissues: A Colon Biopsy (CECAL POLYP) B Colon Biopsy (ASC POLYPS) C Colon Biopsy (TRANSV POLYP) D Colon Biopsy (DESC POLYP) Procedures: HE/8, Gross/Micro L4/4 ---- Patient: Gadiel Smith [id number] (Continued) ---- Specimen: [id number] Received: 04/14/24 (Continued) Gross Description Received are [...] entirely submitted in D1. TW CPT Codes 98776J1 ---- ---- Specimen: [id number] Received: 04/14/24 Status: MAYO Shi Num: [id number] Spec Type: Surgical Subm Dr: Merly Paul DO Tissues: A Colon Biopsy (CECAL POLYP) B Colon Biopsy (ASC POLYPS) C Colon Biopsy (TRANSV POLYP) D Colon Biopsy (DESC POLYP) Procedures: LILI/Rivas Sanford/Andrew L4/4 ---- Patient: Gadiel Smith [id number] (Continued) ---- Signed (signature on file) Bulmaro-Kalia Jackson MD 04/16/24 1330 Normal [facility] Office Visiton 04-01-2024 Follow-up visit [id number] Gadile Smith 1950 M Date Provider Department Center 04/01/2024 Jo-Ann-MAUREEN JANEE CARD [facility] Family History Problem Relation Age of [...] Paternal Grandmother Paternal Grandfather Other Level of Service:99549 MD OFFICE/OUTPATIENT ESTABLISHED MOD MDM 30 MIN Reason for Visit and Comments: Follow-up [617875] - 7 month follow up Normal [facility] ECHOCARDIO M/2D COMPLETEon 0 02-28-2023 ECHOCARDIO M/2D COMPLETE Patient: GADIEL SMITH Exam Date: 02/28/2023 : 1950 Gender:M Ordering : TONA ESPINOZA Admission #: [id number] Family : DR JOSELUIS QUIROZ M.D. Order #: [id number] CLICK HERE TO VIEW EXAM ECHOCARDIOGRAM REPORT [...] Left Atrium LA Volume Index (2D A2C): 66892 mm3 Left Atrium Systolic Dimension: 4.90 cm [...] Patten M.D. on 02/28/2023 at 20:13 Normal [facility] PROF 14(COMP METB)on 023 Albumin [Mass/Vol] 3.7 g/dL Normal 3.4-5.0 [facility] Comment on above: Performed By: #### C MP #### [facility] [address] [place] [address] Dr. Esme Jackson Albumin/Globulin [Mass ratio] 1.1 {ratio} Normal [facility] Comment on above: Performed By: #### C MP #### [facility] [address] [place] [address] Dr. Esme Jackson ALP [Catalytic activity/Vol] 65 U/L Normal 46-116 [facility] Comment on above: Performed By: #### C MP #### [facility] [address] [address] [address] Esme Jackson ALT [Catalytic activity/Vol] 26 U/L Normal 16-63 [facility] Comment on above: Performed By: #### C MP #### [facility] [address] [address] [address] Esme Jackson Anion gap [Moles/Vol] 10.8 mmol/L Normal [facility] Comment on above: Performed By: #### C MP #### [facility] [address] [address] [address] Esme Jackson AST [Catalytic activity/Vol] 16 U/L Normal 15-37 [facility] Comment on above: Performed By: #### C MP #### [facility] [address] [place] [address] Dr. Esme Jackson Bilirubin [Mass/Vol] 1.1 mg/dL Critically high 0.2-1.0 [facility] Comment on above: Performed By: #### C MP #### [facility] [address] [address] [address] Esme Jackson Calcium [Mass/Vol] 9.4 mg/dL Normal 8.5-10.1 [facility] Comment on above: Performed By: #### C MP #### [facility] [address] [address] [address] Esme Jackson Chloride [Moles/Vol] 103 mmol/L Normal 98-107 [facility] Comment on above: Performed By: #### C MP #### [facility] [address] [place] [address] Dr. Esme Jackson CO2 [Moles/Vol] 28.5 mmol/L Normal 21.0-32.0 [facility] Comment on above: Performed By: #### C MP #### [facility] [address] [place] [address] Dr. Esme Jackson Creatinine [Mass/Vol] 1.07 mg/dL Normal 0.70-1.30 [facility] Comment on above: Performed By: #### C MP #### [facility] [address] [place] [address] Dr. Esme Jackson EGFR-AF AZERBAIJANI >60 Normal >=60 [facility] Comment on above: Performed By: #### C MP #### [facility] [address] [place] [address] Dr. Esme Jackson EGFR-NON AF AZERBAIJANI >60 Normal >=60 [facility] Comment on above: Performed By: #### C MP #### [facility] [address] [address] [address] Esme Jackson Globulin (S) [Mass/Vol] 3.5 g/dL Normal [facility] Comment on above: Performed By: #### C MP #### [facility] [address] [place] [address] Dr. Esme Jackson Glucose [Mass/Vol] 190 mg/dL Critically high 74-106 [facility] Comment on above: Performed By: #### C MP #### [facility] [address] [address] [address] Esme Jackson Potassium [Moles/Vol] 5.3 mmol/L Critically high 3.5-5.1 [facility] Comment on above: Performed By: #### C MP #### [facility] [address] [place] [address] Dr. Esme Jackson Protein [Mass/Vol] 7.2 g/dL Normal 6.4-8.2 [facility] Comment on above: Performed By: #### C MP #### [facility] [address] [place] [address] Dr. Esme Jackson Sodium [Moles/Vol] 137 mmol/L Normal 136-145 [facility] Comment on above: Performed By: #### C MP #### [facility] [address] [place] [address] Dr. Esme Jackson Urea nitrogen [Mass/Vol] 14.0 mg/dL Normal 7.0-18.0 [facility] Comment on above: Performed By: #### C MP #### [facility] [address] [place] [address] Dr. Esme Jackson Urea nitrogen/Creatinine [Mass ratio] 13.1 mg/mg Normal [facility] Comment on above: Performed By: #### C MP #### [facility] [address] [place] [address] Dr. Esme Jackson BNPon 11-10-2022 Natriuretic peptide B (Bld) [Mass/Vol] 6259.0 pg/mL Critically high <=900.0 [facility] Comment on above: Performed By: #### B GAS PLANT REPAIRER, BMP, HSTROPN #### [facility] [address] [place] [address] Dr. Esme Jackson CBC AUTO DIFFon 11-10-2022 BASO # 0.0 103/ul Normal 0.0-0.1 [facility] Comment on above: Performed By: #### C BC #### [facility] [address] [place] [address] Dr. Esme Jackson Basophils/100 WBC (Bld) 0.5 % Normal 0.2-2.0 [facility] Comment on above: Performed By: #### C BC #### [facility] [address] [place] [address] Dr. Esme Jackson EO # 0.3 103/ul Normal 0.0-0.7 [facility] Comment on above: Performed By: #### C BC #### [facility] [address] [place] [address] Dr. Esme Jackson Eosinophils/100 WBC (Bld) 3.6 % Normal 0.9-7.0 [facility] Comment on above: Performed By: #### C BC #### [facility] [address] [place] [address] Dr. Esme Jackson Erythrocyte distribution width (RBC) [Ratio] 14.8 % Normal 11.0-15.0 [facility] Comment on above: Performed By: #### C BC #### [facility] [address] [place] [address] Dr. Esme Jackson Hematocrit (Bld) [Volume fraction] 36.9 % Critically low 42.0-54.0 [facility] Comment on above: Performed By: #### C BC #### [facility] [address] [place] [address] Dr. Esme Jackson Hemoglobin (Bld) [Mass/Vol] 12.0 g/dL Critically low 14.0-18.0 [facility] Comment on above: Performed By: #### C BC #### [facility] [address] [place] [address] Dr. Esme Jackson IG # 0.04 10e3/ul Critically high 0.00-0.03 [facility] Comment on above: Performed By: #### C BC #### [facility] [address] [place] [address] Dr. Esme Jackson IG % 0.5 % Normal 0.0-0.5 [facility] Comment on above: Performed By: #### C BC #### [facility] [address] [place] [address] Dr. Esme Jackson LYMPH # 1.3 103/ul Normal 1.2-3.8 [facility] Comment on above: Performed By: #### C BC #### [facility] [address] [place] [address] Dr. Esme Jackson Lymphocytes/100 WBC (Bld) 18.2 % Critically low 20.5-60.0 [facility] Comment on above: Performed By: #### C BC #### [facility] [address] [place] [address] Dr. Esme Jackson MANUAL DIFF REQ NO Normal [facility] Comment on above: Performed By: #### C BC #### [facility] [address] [place] [address] Dr. Esme Jackson MCH (RBC) [Entitic mass] 28.0 pg Normal 25.9-34.0 [facility] Comment on above: Performed By: #### C BC #### [facility] [address] [place] [address] Dr. Esme Jackson MCHC (RBC) [Mass/Vol] 32.5 g/dL Normal 29.9-35.2 [facility] Comment on above: Performed By: #### C BC #### [facility] [address] [place] [address] Dr. Esme Jackson MCV (RBC) [Entitic vol] 86.0 fL Normal 80.0-94.0 [facility] Comment on above: Performed By: #### C BC #### [facility] [address] [place] [address] Dr. Esme Jackson MONO # 0.5 103/ul Normal 0.3-0.8 [facility] Comment on above: Performed By: #### C BC #### [facility] [address] [place] [address] Dr. Esme Jackson Monocytes/100 WBC (Bld) 7.3 % Normal 1.7-12.0 [facility] Comment on above: Performed By: #### C BC #### [facility] [address] [place] [address] Dr. Esme Jackson NEUT # 5.1 103/ul Normal 1.4-6.5 [facility] Comment on above: Performed By: #### C BC #### [facility] [address] [place] [address] Dr. Esme Jackson Neutrophils/100 WBC (Bld) 69.9 % Normal 43.0-75.0 [facility] Comment on above: Performed By: #### C BC #### [facility] [address] [place] [address] Dr. Esme Jackson Platelet mean volume (Bld) [Entitic vol] 10.3 fL Normal 9.5-13.5 [facility] Comment on above: Performed By: #### C BC #### [facility] [address] [place] [address] Dr. Esme Jackson PLT 220 103/ul Normal 150-450 [facility] Comment on above: Performed By: #### C BC #### [facility] [address] [place] [address] Dr. Esme Jackson RBC 4.29 106/ul Critically low 4.70-6.10 [facility] Comment on above: Performed By: #### C BC #### [facility] [address] [place] [address] Dr. Esme Jackson WBC 7.3 103/ul Normal 4.0-11.0 [facility] Comment on above: Performed By: #### C BC #### [facility] [address] [place] [address] Dr. Esme Jackson Covid-19 PCR ([facility])on 10-13 SARS-CoV-2 (COVID-19) RNA HANSA+probe Ql (Unsp spec) Not detected Normal NOT DETECTED [facility] Comment on above: Result Comment: When [...] for this test is supported by the Translator And Interpreter of Health and Human Service's declaration that [...] used). Performed By: #### C VDTBH #### [facility] [address] [place] [address] Dr. Esme Jackson INFLUENZA A AND B AGon 11-10 [facility] BELOW Normal [facility] Comment on above: Result Comment: Nega tive for Flu A protein angiten. Infection due to Flu A cannot be ruled out. Flu A angiten in the sample may be below the detection limit of the test. Performed By: #### F T4 #### [facility] [address] [place] [address] Dr. Esme [facility] BEL[facility] Normal [facility] Comment on above: Result Comment: Nega tive for Flu B protein antigen. Infection due to Flu B cannot be ruled out. Flu B antigen in the sample may be below the detection limit of the test. Performed By: #### F T4 #### [facility] [address] [place] [address] Dr. Esme Jackson INFLUENZA A AG Negative Normal NEGATIVE SEE COMMENT [facility] Comment on above: Performed By: #### F T4 #### [facility] [address] [place] [address] Dr. Esme Jackson INFLUENZA B AG Negative Normal NEGATIVE SEE COMMENT [facility] Comment on above: Performed By: #### F T4 #### [facility] [address] [place] [address] Dr. Esme Jackson PROF CHEM 8 (BAS METB)on Anion gap [Moles/Vol] 13.9 mmol/L Normal [facility] Comment on above: Performed By: #### B GAS PLANT REPAIRER, BMP, HSTROPN #### [facility] [address] [place] [address] Dr. Esme Jackson Calcium [Mass/Vol] 8.7 mg/dL Normal 8.5-10.1 [facility] Comment on above: Performed By: #### B GAS PLANT REPAIRER, BMP, HSTROPN #### [facility] [address] [address] [address] Esme Jackson Chloride [Moles/Vol] 104 mmol/L Normal 98-107 [facility] Comment on above: Performed By: #### B GAS PLANT REPAIRER, BMP, HSTROPN #### [facility] [address] [address] [address] Esme Jackson CO2 [Moles/Vol] 25.2 mmol/L Normal 21.0-32.0 [facility] Comment on above: Performed By: #### B GAS PLANT REPAIRER, BMP, HSTROPN #### [facility] [address] [address] [address] Esme Jackson Creatinine [Mass/Vol] 1.04 mg/dL Normal 0.70-1.30 [facility] Comment on above: Performed By: #### B GAS PLANT REPAIRER, BMP, HSTROPN #### [facility] [address] [address] [address] Esme Jackson EGFR-AF AZERBAIJANI >60 Normal >=60 [facility] Comment on above: Performed By: #### B GAS PLANT REPAIRER, BMP, HSTROPN #### [facility] [address] [address] [address] Esme Jackson EGFR-NON AF AZERBAIJANI >60 Normal >=60 [facility] Comment on above: Performed By: #### B GAS PLANT REPAIRER, BMP, HSTROPN #### [facility] [address] [address] [address] Esme Jackson Glucose [Mass/Vol] 199 mg/dL Critically high 74-106 [facility] Comment on above: Performed By: #### B GAS PLANT REPAIRER, BMP, HSTROPN #### [facility] [address] [address] [address] Esme Jackson Potassium [Moles/Vol] 4.1 mmol/L Normal 3.5-5.1 [facility] Comment on above: Performed By: #### B GAS PLANT REPAIRER, BMP, HSTROPN #### [facility] [address] [address] [address] Esme Jackson Sodium [Moles/Vol] 139 mmol/L Normal 136-145 [facility] Comment on above: Performed By: #### B GAS PLANT REPAIRER, BMP, HSTROPN #### [facility] [address] [address] [address] Esme Jackson Urea nitrogen [Mass/Vol] 18.0 mg/dL Normal 7.0-18.0 [facility] Comment on above: Performed By: #### B GAS PLANT REPAIRER, BMP, HSTROPN #### [facility] [address] [address] [address] Esme Jackson Urea nitrogen/Creatinine [Mass ratio] 17.3 mg/mg Normal [facility] Comment on above: Performed By: #### B GAS PLANT REPAIRER, BMP, HSTROPN #### [facility] [address] [address] [address] Esme Jackson TROPONIN, HIGH SENSITIVITYon 11-10-2022 HSTROP 35.5 pg/mL Normal 4.0-76.1 [facility] Comment on above: Result Comment: CUT- OFF POINTS HAVE BEEN ESTABLISHED BASED ON THE FOURTH UNIVERSAL DEFINITIONS OF MYOCARDIAL INFARCTION. THE UPPER REFERENCE LIMIT (URL) OF TROPONIN, DEFINED THE 99TH PERCENTILE OF cTnI DISTRIBUTION IN A REFERENCE POPULATION, HAS BEEN CONFIRMED THE DECISION THRESHOLD FOR [place] DIAGNOSIS. Performed By: #### B GAS PLANT REPAIRER, BMP, HSTROPN #### [facility] [address] [place] [address] Dr. Esme Jackson XR CHEST 1 Von [...] osseous structures are stable. Electronically authenticated by: [employer] Date: 2022-11-10 09:24 Normal [facility] Covid-19 [facility]on SARS-CoV-2 (COVID-19) RNA HANSA+probe Ql (Unsp spec) Not detected Normal NOT DETECTED [facility] Comment on above: Result Comment: When [...] for this test is supported by the Translator And Interpreter of Health and Human Service's declaration that [...] used). Performed By: #### C VDTB #### [facility] [address] [place] [address] Dr. Esme Jackson INFLUENZA A AND B [facility] 10-15 [facility] SEE BELOW Normal [facility] Comment on above: Result Comment: Nega tive for Flu A protein angiten. Infection due to Flu A cannot be ruled out. Flu A angiten in the sample may be below the detection limit of the test. Performed By: #### F T4 #### [facility] [address] [place] [address] Dr. [facility] Normal [facility] Comment on above: Result Comment: Nega tive for Flu B protein antigen. Infection due to Flu B cannot be ruled out. Flu B antigen in the sample may be below the detection limit of the test. Performed By: #### F T4 #### [facility] [address] [place] [address] Dr. Esme Jackson INFLUENZA A AG Negative Normal NEGATIVE SEE COMMENT [facility] Comment on above: Performed By: #### F T4 #### [facility] [address] [place] [address] Dr. Esme Jackson INFLUENZA B AG Negative Normal NEGATIVE SEE COMMENT [facility] Comment on above: Performed By: #### F T4 #### [facility] [address] [place], [place] [address] Dr. Esme Jackson INTERNAL CONTROLS Within Normal Limits Normal Wi thin Normal Limits [facility] Comment on above: Performed By: #### F T4 #### [facility] [address] [place], [place] [address] Dr. Esme Jackson XR CHEST 2 Von [...] RAPHAEL NUNEZ Date: 2022-10-15 10:08 Normal [facility] Follow Up (Endocrinology)on 10-10-2022 Follow Up [...] insulin; CATIE = N; Verified Transmission to [id number]; Last Updated By: [employer]; 10/10/2022 11:29:03 AM Albumin, Urine Spot; Status:Active; Requested for:10Oct2022; Perform:Lab Services - Lab To Draw (Non-Blood Test); Due:[id number];Ordered; For:Central hypothyroidism, Hyperlipemia, Hypogonadism male, Pituitary macroadenoma, Thyroid nodule, Type 2 diabetes mellitus with other specified complication, with long-term current use of insulin; Ordered By:Mandie Salamanca; Brain Natriuretic Peptide BNP; Status:Active; Requested for:10Oct2022; Perform:Lab Services - Lab To Draw (Blood Test); Due:[id number];Ordered; For:Central hypothyroidism, Hyperlipemia, Hypogonadism male, Pituitary macroadenoma, Thyroid nodule, Type 2 diabetes mellitus with other specified complication, with long-term current use of insulin; Ordered By:Mandie Salamanca; Complete Blood Count + Differential; Status:Active; Requested for:10Oct2022; Perform:Lab Services - Lab To Draw (Blood Test); Due:[id number];Ordered; For:Central hypothyroidism, Hyperlipemia, Hypogonadism male, Pituitary macroadenoma, Thyroid nodule, Type 2 diabetes mellitus with other specified complication, with long-term current use of insulin; Ordered By:Mandie Salamanca; Comprehensive Metabolic Panel; Status:Active; Requested for:10Oct2022; Perform:Lab Services - Lab To Draw (Blood Test); Due:[id number];Ordered; For:Central hypothyroidism, Hyperlipemia, Hypogonadism male, Pituitary macroadenoma, [...] Cortisol AM 19.6 ug/dL Critically high 6.2-19.4 [facility] Comment on above: Performed By: #### C ORTAM #### [facility] [address] [address] [address] Esme Jackson MICROALBUMIN URINEon 022 Albumin, Urine 36.5 ug/mL Normal Not Estab. [facility] Comment on above: Performed By: #### F T4 #### [facility] [address] [address] [address] Esme Jackson FREE T4on 06-22-2022 Free T4 [Mass/Vol] 1.22 ng/dL Normal 0.76-1.46 [facility] Comment on above: Performed By: #### F T4 #### [facility] [address] [place] [address] Dr. Esme Jackson GLYCOHEMOGLOBIN A1Con 2021 ADA RECOMMENDATION SEE BELOW Normal [facility] Comment on above: Result Comment: ADA RECOMMENDED LIMIT 4.0 - 6.0 ADA THERAPEUTIC TARGET < 7.0 ACTION SUGGESTED > 7.0 Performed By: #### F T4 #### [facility] [address] [place] [address] Dr. Esme Jackson Glucose [Mass/Vol] 194 mg/dL Normal [facility] Comment on above: Performed By: #### F T4 #### [facility] [address] [address] [address] Esme Jackson HbA1c (Bld) [Mass fraction] 8.4 % Critically high 4.5-6.2 [facility] Comment on above: Performed By: #### F T4 #### [facility] [address] [address] [address] Esme Jackson LIPID PROFILEon 06-22-2022 CHOL-HDL RATIO NORM SEE BELOW Normal [facility] Comment on above: Result Comment: 3.3 - 4.4 LOW RISK 4.4 - 7.1 AVERAGE RISK 7.1 - 11.0 MODERATE RISK >11.0 HIGH RISK Performed By: #### F T4 #### [facility] [address] [address] [address] Esme Jackson Cholesterol [Mass/Vol] 153 mg/dL Normal <=200 [facility] Comment on above: Performed By: #### F T4 #### [facility] [address] [address] [address] Esme Jackson Cholesterol in HDL [Mass/Vol] 55 mg/dL Normal 40-60 [facility] Comment on above: Performed By: #### F T4 #### [facility] [address] [address] [address] Esme Jackson Cholesterol in LDL [Mass/Vol] 82.2 mg/dL Normal [facility] Comment on above: Performed By: #### F T4 #### [facility] [address] [address] [address] Esme aJckson Cholesterol.total/Ch olesterol in HDL [Mass ratio] 2.8 {ratio} Normal [facility] Comment on above: Performed By: #### F T4 #### [facility] [address] [address] [address] Esme Jackson HDL NORMAL > or = 60 mg/dl - LO W CARDIOVASCULAR RISK <40 mg/dl - HIGH CARDIOVASCULAR RISK Normal [facility] Comment on above: Performed By: #### F T4 #### [facility] [address] [address] [address] Esme Jackson LDL CALC NORMAL SEE BELOW Normal [facility] Comment on above: Result Comment: <100 mg/dl OPTIMAL 100 - 129 mg/dl NEAR OR ABOVE OPTIMAL 130 - 159 mg/dl BORDERLINE HIGH 160 - 189 mg/dl HIGH >190 mg/dl VERY HIGH Performed By: #### F T4 #### [facility] [address] [address] [address] Esme Jackson Triglyceride [Mass/Vol] 79 mg/dL Normal <=150 [facility] Comment on above: Performed By: #### F T4 #### [facility] [address] [address] [address] Esme Jackson VLDL CALC 15.8 mg/dL Normal [facility] Comment on above: Performed By: #### F T4 #### [facility] [address] [place] [address] Dr. Esme Jackson PROF 14(COMP METB)on 022 Albumin [Mass/Vol] 3.9 g/dL Normal 3.4-5.0 [facility] Comment on above: Performed By: #### F T4 #### [facility] [address] [place] [address] Dr. Esme Jackson Albumin/Globulin [Mass ratio] 1.1 {ratio} Normal [facility] Comment on above: Performed By: #### F T4 #### [facility] [address] [place] [address] Dr. Esme Jackson ALP [Catalytic activity/Vol] 57 U/L Normal 46-116 [facility] Comment on above: Performed By: #### F T4 #### [facility] [address] [place] [address] Dr. Esme Jackson ALT [Catalytic activity/Vol] 22 U/L Normal 16-63 [facility] Comment on above: Performed By: #### F T4 #### [facility] [address] [place] [address] Dr. Esme Jackson Anion gap [Moles/Vol] 12.6 mmol/L Normal [facility] Comment on above: Performed By: #### F T4 #### [facility] [address] [place] [address] Dr. Esme Jackson AST [Catalytic activity/Vol] 18 U/L Normal 15-37 [facility] Comment on above: Performed By: #### F T4 #### [facility] [address] [place] [address] Dr. Esme Jackson Bilirubin [Mass/Vol] 1.1 mg/dL Critically high 0.2-1.0 [facility] Comment on above: Performed By: #### F T4 #### [facility] [address] [place] [address] Dr. Esme Jackson Calcium [Mass/Vol] 9.0 mg/dL Normal 8.5-10.1 [facility] Comment on above: Performed By: #### F T4 #### [facility] [address] [address] [address] Esme Jackson Chloride [Moles/Vol] 103 mmol/L Normal 98-107 [facility] Comment on above: Performed By: #### F T4 #### [facility] [address] [place] [address] Dr. Esme Jackson CO2 [Moles/Vol] 27.2 mmol/L Normal 21.0-32.0 [facility] Comment on above: Performed By: #### F T4 #### [facility] [address] [place] [address] Dr. Esme Jackson Creatinine [Mass/Vol] 0.90 mg/dL Normal 0.70-1.30 [facility] Comment on above: Performed By: #### F T4 #### [facility] [address] [place] [address] Dr. Esme Jackson EGFR-AF AZERBAIJANI >60 Normal >=60 [facility] Comment on above: Performed By: #### F T4 #### [facility] [address] [place] [address] Dr. Esme Jackson EGFR-NON AF AZERBAIJANI >60 Normal >=60 [facility] Comment on above: Performed By: #### F T4 #### [facility] [address] [place] [address] Dr. Esme Jackson Globulin (S) [Mass/Vol] 3.4 g/dL Normal [facility] Comment on above: Performed By: #### F T4 #### [facility] [address] [place] [address] Dr. Esme Jackson Glucose [Mass/Vol] 185 mg/dL Critically high 74-106 [facility] Comment on above: Performed By: #### F T4 #### [facility] [address] [place] [address] Dr. Esme Jackson Potassium [Moles/Vol] 3.8 mmol/L Normal 3.5-5.1 [facility] Comment on above: Performed By: #### F T4 #### [facility] [address] [place] [address] Dr. Esme Jackson Protein [Mass/Vol] 7.3 g/dL Normal 6.4-8.2 [facility] Comment on above: Performed By: #### F T4 #### [facility] [address] [address] [address] Esme Jackson Sodium [Moles/Vol] 139 mmol/L Normal 136-145 [facility] Comment on above: Performed By: #### F T4 #### [facility] [address] [address] [address] Esme Jackson Urea nitrogen [Mass/Vol] 12.0 mg/dL Normal 7.0-18.0 [facility] Comment on above: Performed By: #### F T4 #### [facility] [address] [place] [address] Dr. Esme Jackson Urea nitrogen/Creatinine [Mass ratio] 13.3 mg/mg Normal [facility] Comment on above: Performed By: #### F T4 #### [facility] [address] [place] [address] Dr. Esme Jackson US THYROIDon 06-22-2022 US [...] nodules. 1 year follow-up recommended TI-RADS: The [employer] TI-RADS committee's white paper recommendations for thyroid lesions classified as TR5 (highly suspicious) are listed below: > 0.5 cm. Annual ultrasound follow-up for up to 5 years. > 1.0 cm. FNA. J. Am Dionicio Radiol 2017;14:587-595. Electronically authenticated by: GEORGIE DAVIES Date: 2022-06-22 17:28 Normal [facility] Follow Up (Endocrinology)on 04-24-2022 Follow Up [...] Services - Lab To Draw (Blood Test); Due:[id number];Ordered; For:Central hypothyroidism, Hyperlipemia, Hypogonadism male, Pituitary macroadenoma, Thyroid nodule, Type 2 diabetes mellitus with other specified complication, with long-term current use of insulin; Ordered By:Mandie Salamanca; Cortisol A.M.; Status:Active; Requested for:24Apr2022; Perform:Lab Services - Lab To Draw (Blood Test); Due:[id number];Ordered; For:Central hypothyroidism, Hyperlipemia, Hypogonadism male, Pituitary macroadenoma, [...] Thyroid; Status:Hold For - Scheduling; Requested for:24Apr2022; Perform:[facility]; Due:23Jul2022;Ordered; For:Central hypothyroidism, [...] nodule; CATIE = N; [facility]; Last Updated By: [employer]; 04/24/2022 10:33:22 AM Hypogonadism male, Pituitary macroadenoma Renew: Testosterone 50 MG/5GM (1%) Transdermal Gel; APPLY 1 PACKET ONE TIME DAILY DIRECTED Rx By: Mandie Salamanca; Dispense: 0 Days ; #:90 X 5 GM Package; Refill: 1;For: Hypogonadism male, Pituitary macroadenoma; CATIE = N; Verified Transmission to [employer] [facility]; Last Updated By: [employer]; 04/24/2022 10:33:21 AM Pituitary macroadenoma Renew: Cabergoline 0.5 MG Oral Tablet; Take 1 tablet every other day Rx By: Mandie Salamanca; Dispense: 80 Days ; #:40 Tablet; Refill: 3;For: Pituitary macroadenoma; CATIE = N; Verified Transmission to [facility]; Last Updated By: [email or web address]; 04/24/2022 10:33:26 AM Type 2 diabetes mellitus with other specified complication, with long-term current use of insulin Renew: Accu-Chek Alicia Plus In Vitro Strip; TEST TWICE DAILY Rx B (more content not included)... Normal [employer] Tobacco Screening.on 022 Adult depression screening assessment No -[facility] [address] Work Phone: Fall risk assessment a) No falls within the last year [facility] [address] Work Phone: Tobacco use status CPHS b) No [facility] [address] Work Phone: Vital Signs Date Time Vital Sign Value Performing Clinician Facility 07-14-2024 11:22-0400 Body height 182.9 cm Henrry Johnson MD Work Phone: [facility] 07-14-2024 11:22-0400 Body mass index (BMI) [Ratio] 26.31 kg/m2 Henrry Johnson MD Work Phone: [facility] 07-14-2024 11:22-0400 Body weight 88 kg Henrry Johnson MD Work Phone: [facility] 07-14-2024 11:22-0400 Diastolic blood pressure 62 mm[Hg] Henrry Johnson MD Work Phone: [facility] 07-14-2024 11:22-0400 Systolic blood pressure 131 mm[Hg] Henrry Johnson MD Work Phone: [facility] 04-14-2024 12:35-0400 Diastolic blood pressure 63 mm[Hg] MD Joseluis Quiroz Work Phone: [facility] 04-14-2024 12:35-0400 Heart rate 54 /min MD Joseluis Quiroz Work Phone: [facility] 04-14-2024 12:35-0400 Respiratory rate 18 /min MD Joseluis Quiroz Work Phone: [facility] 04-14-2024 12:35-0400 SaO2% (BldA) [Mass fraction] 99 % MD Joseluis Quiroz Work Phone: [facility] 04-14-2024 12:35-0400 Systolic blood pressure 125 mm[Hg] MD Joseluis Quiroz Work Phone: [facility] 04-14-2024 11:02-0400 Body height 182.88 cm MD Joseluis Quiroz Work Phone: [facility] 04-14-2024 11:02-0400 Body weight 86.18 kg MD Joseluis Quiroz Work Phone: [facility] 03-18-2024 10:35-0400 Body height 182.88 cm MD Joseluis Quiroz Work Phone: [facility] 03-18-2024 10:35-0400 Body mass index (BMI) [Ratio] 25.7 kg/m2 MD Joseluis Quiroz Work Phone: [facility] 03-18-2024 10:35-0400 Body weight 86.18 kg MD Joseluis Quiroz Work Phone: [facility] 03-06-2024 10:52-0400 Body height 182.88 cm MD Joseluis Quiroz Work Phone: [facility] 03-06-2024 10:52-0400 Body mass index (BMI) [Ratio] 26.9 kg/m2 MD Joseluis Quiroz Work Phone: [facility] 03-06-2024 10:52-0400 Body temperature 99.2 [degF] MD Joseluis Quiroz Work Phone: [facility] 03-06-2024 10:52-0400 Body weight 89.98 kg MD Joseluis Quiroz Work Phone: [facility] 03-06-2024 10:52-0400 Diastolic blood pressure 60 mm[Hg] MD Joseluis Quiroz Work Phone: [facility] 03-06-2024 10:52-0400 Heart rate 69 /min MD Joseluis Quiroz Work Phone: [facility] 03-06-2024 10:52-0400 Respiratory rate 18 /min MD Joseluis Quiroz Work Phone: [facility] 03-06-2024 10:52-0400 SaO2% (BldA) [Mass fraction] 95 % MD Joseluis Quiroz Work Phone: [facility] 03-06-2024 10:52-0400 Systolic blood pressure 127 mm[Hg] MD Joseluis Quiroz Work Phone: [facility] 10-29-2023 13:30-0500 Body height 182.88 cm Joseluis Quiroz Other [facility] [employer] Other 10-29-2023 13:30-0500 Body mass index (BMI) [Ratio] 26.09 kg/m2 Joseluis Quiroz Other [employer] Other 10-29-2023 13:30-0500 Body weight 87.27 kg Joseluis Quiroz Other [employer] Other 10-29-2023 13:30-0500 Diastolic blood pressure 72 mm[Hg] Joseluis Quiroz Other [employer] Other 10-29-2023 13:30-0500 SaO2% (BldA) [Mass fraction] 93 % Joseluis Quiroz Other [employer] Other 10-29-2023 13:30-0500 Systolic blood pressure 130 mm[Hg] oJseluis Quiroz Other [employer] Other 08-19-2023 11:00-0400 Body height 182.88 cm Joseluis Quiroz Other [employer] Other 08-19-2023 11:00-0400 Body mass index (BMI) [Ratio] 25.36 kg/m2 Joseluis Quiroz Other [employer] Other 08-19-2023 11:00-0400 Body weight 84.82 kg Joseluis Quiroz Other [employer] Other 08-19-2023 11:00-0400 Diastolic blood pressure 61 mm[Hg] Joseluis Quiroz Other [employer] Other 08-19-2023 11:00-0400 Systolic blood pressure 126 mm[Hg] Joseluis Quiroz Other [employer] Other Encounters Encounter Date Encounter Type Care Provider Facility Start: 09-16-2024 End: 09-16-2024 [facility] Start: 07-14-2024 End: 07-14-2024 Brittany Garrido H [...] Medicine Comment on above: Insurance Authorizat ion ([place]) Start: 05-07-2024 End: 05-07-2024 Office outpatient visit 40 minutes Mandie Salamanca MD Work Phone: [facility] Comment on above: Hypopituitarism ([place]) (Primary Dx); Hypogonadism male; Hyperparathyroidism (Multi); Hyperprolactinemia (Multi); Type 2 diabetes mellitus without complication, with long-term current use of insulin (Multi); Thyroid nodule Start: 04-14-2024 Non-patient / Non-visit MD Hiral Quiroz Work Phone: [facility] G[facility] Work Phone: Start: 04-14-2024 End: 04-14-2024 Admission to same day surgery center MD Joseluis Quiroz Work Phone: [facility] Work Phone: Start: 04-14-2024 End: 04-14-2024 ambulatory MD Joseluis Quiroz Work Phone: [facility] Work Phone: Start: 04-01-2024 End: 04-01[facility]20[facility] Start: 03-23-2024 End: 03-23-2024 ambulatory RAPHAEL SPRINGER Not Available Start: 03-18-2024 End: 03-18-2024 Patient encounter procedure MD Joseluis Quiroz Work Phone: [facility] Gastroenterology Work Phone: Start: 03-06-2024 End: 03-06-2024 Patient encounter procedure MD Joseluis Quiroz Work Phone: [facility] Work Phone: Start: 12-23-2023 End: 12-23-2023 ambulatory Joseluis Quiroz Other [employer] Other Start: 12-23-2023 Telephone encounter Joseluis Quiroz [facility] Start: 10-29-2023 End: 10-29-2023 ambulatory Joseluis Quiroz Other [employer] Other Start: 10-29-2023 Office outpatient vi sit 15 minutes Joseluis Quiroz [facility] Start: 10-16-2023 End: 10-16-2023 ambulatory Joseluis Quiroz Other [employer] Other Start: 10-16-2023 Telephone encounter Joseluis Richie [facility] Start: 09-13-2023 End: 09-13-2023 ambulatory Joseluis Quiroz Other [employer] Other Start: 09-13-2023 Telephone encounter Joseluis Richie [facility] Start: 09-10-2023 End: 09-10-2023 ambulatory Joseluis Richie Other [employer] Other Start: 09-10-2023 Telephone encounter Joseluis Richie [facility] Start: 08-19-2023 End: 08-19-2023 ambulatory Joseluis Quiroz Other [employer] Other Start: 08-19-2023 Office outpatient vi sit 15 minutes Joseluis Quiroz [facility] Start: 07-31-2023 End: 07-31-2023 ambulatory Joseluis Quiroz Other [facility] [employer] Other Start: 07-31-2023 Telephone encounter Joseluis Quiroz [facility] Start: 05-29-2023 Rx Renewal [employer] [place] Work Phone: [facility] [address] Work Phone: Start: 04-08-2023 Rx Renewal [facility]rera [place] Work Phone: [facility] [address] [place] Work Phone: Start: 02-28-2023 End: 03-01-2023 ambulatory TONA SHAKIRA Facility:[facility] Start: 01-30-[address] JOSELUIS QUIROZ Facil ity:[facility]1 Start: 01-22-2023 AUDIT [facility] Work Phone: [facility] Work Phone: Start: 01-22-2023 Rx Renewal Cabrera [...] sit 25 minutes [address] Work Phone: GT-Taoyisrebublb-WWI [place] [address] Work Phone: Start: 10-10-2022 ambulatory Referral Self Facility: [id number] Start: 09-28-2022 AUDIT Cabrera Dupont Work Phone: [facility] Work Phone: Start: 07-13-2022 Rx Renewal Cabrera [place]ont Work Phone: [facility] [place] [address] [place] Work Phone: Start: 07-02-2022 Telephone encounter Mandie sun MD Work Phone: Endocrinology Comment on above: Received Outside Med ical Records (Received Thyroid US report from [facility]. Indexed into chart. ) Start: 06-22-2022 End: 06-23-[address] DOCTOR BUSBY Facility:H1 Start: 04-24-2022 Office outpatient vi sit 40 minutes Cab[address] Work Phone: [facility] [address] Work Phone: Start: 04-24-[address] Cabrera Dupont Facility:[id number] Start: 03-27-2022 AUDIT Cabrera Dupont Work Phone: PF[facility]mrwmtqihylgy[facility] Work Phone: Start: 01-23-2022 AUDIT Cabrera Dupont Work Phone: TL[facility]ciryt[facility]fa[facility] Work Phone: Start: 12-11-2021 Rx Renewal Cabrera Dupont Work Phone: CK[facility]drvpgixcvjbs[facility] Work Phone: Start: 11-08-2021 AUDIT Cabrera Dupont Work Phone: GT-Roqeljolqliie-Pfyohbd [facility] Work Phone: Start: 08-21-2021 AUDIT Cabrera Dupont Work Phone: KK-Nmpxzrngzvaio-QHH [place] [address] Work Phone: Start: 05-31-2021 AUDIT Cabrera Dupont Work Phone: IM-Lafhjcgtxajzr-WQK [place] [address] Work Phone: Start: 06-20-2017 End: 06-21-2017 Ambulatory DEFAULT PHYSICIAN Facility:[facility] Procedures Date Procedure Procedure Detail Performing Clinician [...] EDT Office Visit [facility] [address] [facility] [address] [place] [id number] Henrry Johnson MD [address] [facility] [address] [place] [address] Arrived [facility] Comment on above: Arrived Start: 07-12-2024 Influenza vaccination [facility] Start: 05-07-2024 End: 05-07-2025 Comprehensive metabolic 2000 panel - Serum or Plasma Comprehensive Metabolic Panel Lab Routine Hypopituitarism (Multi) Hypogonadism male Hyperparathyroidism (Multi) Hyperprolactinemia (Multi) Type 2 diabetes mellitus without complication, with long-term current use of insulin (Multi) Expected: 05/07/2024 (Approximate), Expires: 05/07/2025 [facility] Work Phone: Comment on above: Expected: 05/07/2024 (Approximate), Expi res: 05/07/2025 Start: 05-07-2024 End: 05-07-2025 Cortisol [Mass/volume] in Serum or Plasma Cortisol Lab Routine Hypopituitarism (Multi) Hypogonadism male Hyperparathyroidism (Multi) Hyperprolactinemia (Multi) Type 2 diabetes mellitus without complication, with long-term current use of insulin (Multi) Expected: 05/07/2024 (Approximate), Expires: 05/07/2025 [facility] Service Area Work Phone: Comment on above: Expected: 05/07/2024 (Approximate), Expi res: 05/07/2025 Start: 05-07-2024 End: 05-07-2025 Hemoglobin A1c/Hemoglobin.total in Blood Hemoglobin A1C Lab Routine Hypopituitarism (Multi) Hypogonadism male Hyperparathyroidism (Multi) Hyperprolactinemia (Multi) Type 2 diabetes mellitus without complication, with long-term current use of insulin (Multi) Expected: 05/07/2024 (Approximate), Expires: 05/07/2025 [facility] Work Phone: Comment on above: Expected: 05/07/2024 (Approximate), Expi res: 05/07/2025 Start: 05-07-2024 End: 05-07-2025 Lipid 1996 panel - Serum or Plasma Lipid Panel Lab Routine Hypopituitarism (Multi) Hypogonadism male Hyperparathyroidism (Multi) Hyperprolactinemia (Multi) Type 2 diabetes mellitus without complication, with long-term current use of insulin (Multi) Expected: 05/07/2024 (Approximate), Expires: 05/07/2025 [facility] Work Phone: Comment on above: Expected: 05/07/2024 (Approximate), Expi res: 05/07/2025 Start: 05-07-2024 End: 05-07-2025 Microalbumin/Creatinin e [Mass Ratio] in Urine Albumin-Creatinine Ratio, Urine Random Lab Routine Hypopituitarism (Multi) Hypogonadism male Hyperparathyroidism (Multi) Hyperprolactinemia (Multi) Type 2 diabetes mellitus without complication, with long-term current use of insulin (Multi) Expected: 05/07/2024 (Approximate), Expires: 05/07/2025 [facility] Work Phone: Comment on above: Expected: 05/07/2024 (Approximate), Expi res: 05/07/2025 Start: 05-07-2024 End: 05-07-2025 MR Pituitary and Sella turcica WO and W contrast IV MR sella w and wo IV contrast Imaging Routine Hypopituitarism (Multi) Hypogonadism male Hyperparathyroidism (Multi) Hyperprolactinemia (Multi) Type 2 diabetes mellitus without complication, with long-term current use of insulin (Multi) Thyroid nodule Expected: 05/07/2024, Expires: 05/07/2025 [facility] Work Phone: Comment on above: Expected: 05/07/2024, Expires: Start: 05-07-2024 End: 05-07-2025 Parathyrin.intact [Mass/volume] in Serum or Plasma Parathyroid Hormone, Intact Lab Routine Hypopituitarism (Multi) Hypogonadism male Hyperparathyroidism (Multi) Hyperprolactinemia (Multi) Type 2 diabetes mellitus without complication, with long-term current use of insulin (Multi) Thyroid nodule Expected: 05/07/2024 (Approximate), Expires: 05/07/2025 [facility] Work Phone: Comment on above: Expected: 05/07/2024 (Approximate), Expi res: 05/07/2025 Start: 05-07-2024 End: 05-07-2025 Prolactin [Mass/volume] in Serum or Plasma Prolactin Lab Routine Hypopituitarism (Multi) Hypogonadism male Hyperparathyroidism (Multi) Hyperprolactinemia (Multi) Type 2 diabetes mellitus without complication, with long-term current use of insulin (Multi) Expected: 05/07/2024 (Approximate), Expires: 05/07/2025 [facility] Work Phone: Comment on above: Expected: 05/07/2024 (Approximate), Expi res: 05/07/2025 Start: 05-07-2024 End: 05-07-2025 Testosterone,Free and Total Testosterone,Free and Total Lab Routine Hypopituitarism (Multi) Hypogonadism male Hyperparathyroidism (Multi) Hyperprolactinemia (Multi) Type 2 diabetes mellitus without complication, with long-term current use of insulin (Multi) Expected: 05/07/2024 (Approximate), Expires: 05/07/2025 [facility] Work Phone: Comment on above: Expected: 05/07/2024 (Approximate), Expi res: 05/07/2025 Start: 05-07-2024 End: 05-07-2025 Thyroxine (T4) free [Mass/volume] in Serum or Plasma Thyroxine, Free Lab Routine Hypopituitarism (Multi) Hypogonadism male Hyperparathyroidism (Multi) Hyperprolactinemia (Multi) Type 2 diabetes mellitus without complication, with long-term current use of insulin (Multi) Expected: 05/07/2024 (Approximate), Expires: 05/07/2025 [facility] Work Phone: Comment on above: Expected: 05/07/2024 (Approximate), Expi res: 05/07/2025 Start: 04-14-2024 [facility] Start: 11-11-2023 Advance Directive Discussion Advance Directive Discussion [facility] Start: 07-12-2023 Covid-19 Vaccine () Covid-19 Vaccine () [facility] Start: 10-10-2022 AMY, Provider: Mandie Salamanca, Status: Pen, Time: 11:15 AM AMY, Provider: Mandie Salamanca, Status: Pen, Time: 11:15 AM [facility] Work Phone: Start: 07-12-2022 Influenza vaccination INFLUENZA (#1) [facility] Start: 04-24-2022 AMY, Provider: Ynes Sahni, Status: Pen, Time: 1:00 PM AMY, Provider: Ynes Sahni, Status: Pen, Time: 1:00 PM [facility]ol[facility] Work Phone: Start: 01-21-2022 Diabetes Screening Diabetes Screening [facility] Start: 11-11-2021 ADVANCE DIRECTIVE DISCUSSION ADVANCE DIRECTIVE DISCUSSION [facility] Start: 08-24-2021 Lipid panel Lipid Screening [facility] Start: 07-24-2019 Hemoglobin A1c/Hemoglobin.total in Blood HBA1C [facility] Start: 08-12-2018 Pneumococcal Vaccine: 65+ (2 of 2 - PCV) Pneumococcal Vaccine: 65+ (2 of 2 - PCV) [facility] Start: 08-12-2018 Pneumococcal Vaccine: 65+ Years (2 of 2 - PCV) Pneumococcal Vaccine: 65+ Years (2 of 2 - PCV) [facility] Start: 10-07-2017 Shingrix Vaccine (3 of 3) Shingrix Vaccine (3 of 3) [facility] Start: 08-24-2017 Hepatitis B screening URINE ALBUMIN:CREATININE RATIO [facility] Start: 08-24-2017 Hepatitis B surface antibody level LDL CHOLESTEROL [facility] Start: 08-14-2017 3 comp foot exam completed DIABETIC FOOT EXAM [facility] Start: 11-22-2016 Hepatitis C antibody, confirmatory test DILATED RETINAL EXAM [facility] Start: 2016 PNEUMOCOCCAL: 65+ (1 - PCV) PNEUMOCOCCAL: 65+ (1 - PCV) [facility] Start: 2011 RSV patients and/or patients aged 60+ years (1 - 1-dose 60+ series) RSV patients and/or patients aged 60+ years (1 - 1-dose 60+ series) [facility] Start: 2011 RSV Vaccine (1 - 1-dose 60+ series) RSV Vaccine (1 - 1-dose 60+ series) [facility] Start: 2001 SHINGRIX VACCINE (1 of 2) SHINGRIX VACCINE (1 of 2) [facility] Start: 2001 Zoster Vaccines (1 of 2) Zoster Vaccines (1 of 2) [facility] Start: 1996 COLOGUARD (FIT-DNA) COLOGUARD (FIT-DNA) [facility] Start: 1996 Colonoscopy COLONOSCOPY [facility] Start: 1996 COLORECTAL CANCER SCREENING COLORECTAL CANCER SCREENING [facility] Start: [address] COLONOGRAPHY [facility] Start: 1996 FECAL OCCULT BLOOD FECAL OCCULT BLOOD [facility] Start: 1996 Screening for malignant neoplasm of colon [facility] Start: 1996 SIGMOIDOSCOPY SIGMOIDOSCOPY [facility] Start: 1973 DTaP/Tdap/Td Vaccines (1 - Tdap) DTaP/Tdap/Td Vaccines (1 - Tdap) [facility] Start: 1970 Urine microalbumin profile [facility] Start: 1970 Urine screening for protein Diabetes: Urine Protein Screening [facility] Start: 1969 Anxiety Screening Anxiety Screening [facility] Start: 1969 Depression Screening Depression Screening [facility] Start: 1969 HEPATITIS C SCREENING HEPATITIS C SCREENING [facility] Start: 1969 Hepatitis C screening Hepatitis C Screening [facility] Start: 1963 Adult depression screening assessment DEPRESSION SCREENING [facility] Start: 1961 Diabetic foot examination Diabetes: Foot Exam [facility] Start: 1961 Glaucoma screening Diabetes: Retinopathy Screening [facility] Start: 1957 Pneumococcal Vaccine: 65+ Years (1 of 2 - PCV) Pneumococcal Vaccine: 65+ Years (1 of 2 - PCV) [facility] Start: 02-08-1952 COVID-19 VACCINE (#1) COVID-19 VACCINE (#1) [facility] Start: 1951 ABDOMINAL AORTIC ANEURYSM SCREENING ABDOMINAL AORTIC ANEURYSM SCREENING [facility] Start: 1951 Abdominal aortic aneurysm screening Abdominal Aortic Aneurysm Screening [facility] Start: 1951 Hemoglobin A1c measurement Diabetes: Hemoglobin A1C [facility] Start: 1951 Lipid panel Lipid Panel [facility] Start: 1951 Medicare Annual Wellness Visit Medicare Annual Wellness Visit (AWV) [facility] Start: 1951 Screening for malignant neoplasm of colon [facility] Start: 1951 Thyroid stimulating hormone measurement TSH Level [facility] Patient Education Colon polyps D iverticulosis (DC) [facility] Work Phone: US Thyroid gland US thyroid Imag ing Routine Hypopituitarism (Multi) Hypogonadism male Hyperparathyroidism (Multi) Hyperprolactinemia (Multi) Type 2 diabetes mellitus without complication, with long-term current use of insulin (Multi) Thyroid nodule Ordered: 05/07/2024 [facility] Work Phone: Comment on above: Ordered: 05/07/2024 XR Abdomen Single view [facility] Immunizations Immunization Date Immunization Notes Care Provider Fa cility 10-12-2023 influenza virus vacc ine, unspecified formulation Henrry Johnson MD Work Phone: [facility] 08-15-2022 Fluzone High-Dose Quadrivalent 0.7 ML Intramuscular Suspension Prefilled Syringe Cabrera Dupont Work Phone: EB-Xixnmhmjsjlfp-DS C [place] [address] Work Phone: 09-06-2021 Fluad Quadrivalent 0 .5 ML Intramuscular Prefilled Syringe Cabrera Dupont Work Phone: TB-Rktscquzpgcal-ED C [place] [address] Work Phone: 01-18-2021 Neva COVID-19 Vac cine 0.5 ML Intramuscular Suspension Cabrera Dupont Work Phone: AB-Npqyrcwapkmef-SD C [place] [address] Work Phone: 09-08-2020 Fluad Quadrivalent 0 .5 ML Intramuscular Prefilled Syringe Cabrera Dupont Work Phone: QF-Qttiflpyfuazp-UN C [place] [address] Work Phone: 08-24-2020 influenza, seasonal, injectable Cabrera Dupont Work Phone: JB-Zfcxugfdmhndy-OS C [place] [address] Work Phone: 08-24-2019 Seasonal trivalent influenza vaccine, adjuvanted, preservative free Cabrera Dupont Work Phone: GX-Duawxahnsyqyd-QF C [place] [address] Work Phone: 08-04-2018 influenza, injectabl e, quadrivalent, preservative free Cabrera Dupont Work Phone: GA-Ffseauxiftyfb-RK C [place] [address] Work Phone: 08-04-2018 influenza virus vacc ine, unspecified formulation Rickey Salamanca MD Work Phone: [facility] 07-19-2018 influenza, high dose seasonal, preservative-free Cabrera Dupont Work Phone: KJ-Cyyhyzgoczgur-ZU C [place] [address] Work Phone: 08-21-2017 influenza, high dose seasonal, preservative-free Cabrera [address]ont Work Phone: LT-Nhigjjnkhroux-QK C [place] [address] Work Phone: 08-12-2017 pneumococcal polysaccharide vaccine, 23 valent Cabrera [address]ont Work Phone: GX-Btuwvurujxifc-ND C [place] [address] Work Phone: 08-12-2017 zoster vaccine recombinant Cabrera Dupont Work Phone: YD-Cvwaskyewifjv-DV C [place] [address] Work Phone: 08-21-2016 influenza, high dose seasonal, preservative-free Cabrera Dupont Work Phone: LN-Azmmenimynbtj-NO C [place] [address] Work Phone: 2015 influenza, seasonal, injectable, preservative free Cabrera Dupont Work Phone: VR-Nqtcvimkxdjxh-MK C [place] [address] Work Phone: 08-04-2014 influenza, seasonal, injectable Cabrera Dupont Work Phone: WT-Pssuueqvnqgjd-MC C [place] [address] Work Phone: 08-04-2014 pneumococcal polysaccharide vaccine, 23 valent Cabrera Dupont Work Phone: KZ-Cnkakzdymnsyr-ON C [place] [address] Work Phone: 08-04-2014 zoster vaccine, live Cabrera Dupont Work Phone: TI-Ghiayarxeabnr-DU C [place] [address] Work Phone: Payers Date Payer Category Payer Self-pay [id number] 2018 Medicare [id number] 2013 Unknown 1959 Self-pay [id number] 1959 Unknown [id number] 1951 Unknown [id number] 2.16. [id number] 1951 Unknown [id number] 2.16. [id number] 1951 Unknown [id number] 2.16.84 [id number] 1951 Unknown [id number] 2.16.84 [id number] 1951 Unknown [id number] 2.16.84 [id number] 1951 Unknown [id number] 2.16.84 [id number] 1951 Unknown [id number] 2.16.84 [id number] 1951 Unknown [id number] 2.16.84 [id number] 1951 Unknown [id number] 2.16.84 [id number] 1951 Unknown [id number] 2.16.84 [id number] 1951 Unknown [id number] 2.16.84 [id number] Unknown [id number] 2.16.84 [id number] Unknown [facility] [id number] Unknown [id number] 2.16.8 [id number] Social History Date Type Detail Facility Start: 01-21-2019 End: 07-09-2024 Former smoker Former smoker NG-Vyrlqydcsaayh-TDL [place] Work Phone: Start: 06-30-2013 End: 07-09-2024 Tobacco smoking status AKIS Ex-smoker [facility] Start: 11-11-1966 End: 12-12-1992 History of tobacco use Current smoker [facility] Start: 11-11-1966 End: 12-12-1992 History of tobacco use Cigarette Smoker [facility] Start: 06-30-2013 End: 07-09-2024 Tobacco use and exposure Smokeless tobacco non-user [facility] Start: 01-21-2019 Alcohol intake Current non-dr comfort filler of alcohol (finding) [facility] Start: 1950 Sex Assigned At Not on file [facility] Start: 01-21-2019 End: 07-09-2024 Sex Assigned At [facility] [employer] Other Start: 1950 Sex Assigned At Male F [facility] National Score (1-100), lower number is lower risk Not on file [facility] Tobacco smoking status NHIS Tobacco smoking consumption unknown [facility] Work Phone: Start: 07-09-2024 End: 07-14-2024 Alcoholic beverage intake Lifetime non-drinker (finding) [facility] Medical Equipment Procedure Code Equipment Code Equipment Original Text Equipment Identifier Dates [id number], [id number], [id number] Start: 09-15-2018 Comment on above: Use as [...] Date & Type Note Facility 09-16-2024 Note [place] Cardiology - [facility] Subjective Gadiel Smith is a 74 [...] in the mor (more content not included)... [facility] 07-14-2024 History of Present illness Narrative Subjective Patient ID: Alexis Smith is a 73 y.o. male who presents for Thyroid Nodule (Ultrasound 06/09/24. ) Pt has a long h/o thyroid nodules and a remote h/o parathyroidectomy. H/O prolactinoma tx medically. 05/3024 thyroid US shows a [id number] RT TR5 nodule. 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 Review of Systems All other systems reviewed and are negative. Family History Problem Relation Name Age of Onset Diabetes type II Mother Active Ambulatory Problems Diagnosis Date Noted Alzheimer's disease with late onset ([facility]) 06/27/2024 Dementia in other diseases classified elsewhere, unspecified severity, without behavioral disturbance, psychotic disturbance, mood disturbance, and anxiety ([facility]) 06/27/2024 History of ischemic stroke 06/27/2024 Personality change 06/27/2024 Pituitary mass ([facility]) 06/27/2024 Depression ([facility]) 06/27/2024 Memory impairment 06/27/2024 Abnormal stress test 04/28/2015 Acquired hypothyroidism (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) 11/28/2022 Carotid stenosis, bilateral 04/01/2024 Chronic [...] (CMS/HCC) 12/24/2019 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CMS/HCC) 11/16/2009 Pure hypercholesterolemia ([facility]) 07/09/2024 Thyroid nodule ([facility]) 11/16/2009 Type 2 diabetes mellitus with hyperglycemia ([facility]) 07/09/2024 Resolved Ambulatory Problems Diagnosis Date Noted Diarrhea 07/09/2024 Dietary counseling and surveillance 07/09/2024 Rotator cuff strain 06/16/2013 S/P ablation of atrial fibrillation 05/02/2023 Past Medical History: Diagnosis Date Afib ([facility]) CHF (congestive heart failure) ([facility]) Diabetes mellitus type II, controlled ([facility]) GERD (gastroesophageal reflux disease) Hypercholesterolemia ([facility]) Hypogonadism in male Hypothyroid ([facility]) Stroke ([facility]) 2016 Past Surgical History: Procedure Laterality Date [...] sig growth found documented in this encounter [facility] 06-18-2024 Telephone encounter Note Summary: Sav Received a mail from Sav with a notice on the Authorization for MRI, Brain, W/O Contrast Dated: 06/04/24 Status: Approve Service Requested: MRI, Brain, W/O Contrast Effective Dates: 06/04/2024 - 09/01/2024 Reference #: [id number] Uploaded into scan docs. Please allow time for upload. [facility] 06-18-2024 Miscellaneous Notes Summary: Sav Received a mail from Sav with a notice on the Authorization for MRI, Brain, W/O Contrast Dated: 06/04/24 Status: Approve Service Requested: MRI, Brain, W/O Contrast Effective Dates: 06/04/2024 - 09/01/2024 Reference #: [id number] Uploaded into scan docs. Please allow time for upload. documented in this encounter [facility] 05-07-2024 History of Present illness Narrative Consults [...] results for the last 24 hours, type .[id number] If you would like to pull in [...] history of stroke -Up to date with [facility] follow up yearly he did this [...] which included preparing to see the patient, [id number] patient care, completing clinical documentation, obtaining and [...] Mandie Salamanca MD documented in this encounter [facility] Work Phone: 04-14-2024 Procedure note [facility] 04-01-2024 Note In light pt LDL 98.8 with noted moderate carotid stenosis and DM will increase statin- he states lipitor 40 mg in past caused myalgias therefore will switch to crestor 40 mg daily, repeat Carotid US to assess stenosis and LFT with lipid level in 3 months- he voiced agreement and understanding to call office for any myalgias or concerns [facility] 04-01-2024 Note [id number] Continue eliquis anticoagulation. Continue coreg- rate is well controlled and pt remains in Sinus rhythm RTC [address] Espinoza [facility] 04-01-2024 Note Congestive heart martha lure due to NICM Heart failure is stable . NYHA Class II. Continue current treatment regimen. Dietary sodium restriction. Encouraged daily monitoring of the patient's weight. Regular aerobic exercise. Continue current medications. Refer to Cardiology. Heart failure will be reassessed in 6 months. Currently euvolemic without exacerbation [facility] 04-01-2024 Note Remains is sinus rhy thm on ECG today [facility] 04-01-2024 Note Diabetes is uncontro lled A1C 9.6 in December- states that he eats doughnuts most mornings, and that his diet could be better F/U with PCP [facility] 04-01-2024 Note UTP CARDIOLOGY PROGR [...] on 10/15 and he went to the [facility] emergency department was found to be [...] moist. Eyes: E (more content not included)... [facility] 10-29-2023 Evaluation note Encounter Date [...] improved w present med increase in dose. [facility] Other 11-03-2023 Evaluation note* Encounter Date Diagnosis Assessment Notes Treatment Notes Treatment Clinical Notes Sep, Anxiety (ICD-10 - F41.9) [facility] Other 10-31-2023 Evaluation note* Encounter Date Diagnosis Assessment Notes Treatment Notes Treatment Clinical Notes Aug, Anxiety (ICD-10 - F41.9) [facility] Other 10-09-2023 Evaluation note* Encounter Date Diagnosis [...] from 25mg to 50mg for better results. [facility] Other 11-30-2022 Chief complaint Narrative - Reported* [...] Patient presents for a follow up visit. YX-Carxqacisralu-CQV [address] Work Phone: 1(397) 749-720508-22-2022 Miscellaneous Notes* Telephone Encounter - Janee Hughes - 07/02/2022 2:37 PM EDT Received Thyroid US report from [facility]. Indexed into chart. [facility] Chief complaint Narrative - Reported* An interactive [...] follow-up for hypothyroidism, pituitary, and diabetes today. [facility] [address] Work Phone: Evaluation noteNo [employer] Other Evaluation note* Diagnosis Onset Date Resolution [...] Nontoxic uninodular goiter documented in this encounter [facility] Work Phone: Evaluation note* Diagnosis Thyroid nodule (CMS/HCC)- Primary Nontoxic uninodular goiter documented in this encounter [facility] and physical note Author Merly Paul [facility] April 14, 2024 11:26am Note Date/Time April 14, 2024 11:26 am [facility] [address] [place] [address] Gastroenterology H&P Signed Patient: Gadiel Smith MR#: [id number] : 1950 Acct:[id number] Age/Sex: 73 / M Adm Date: 4 Loc: Room: Type: [facility] Attending Dr: Merly Paul DO Copies to: [...] signed by Merly Paul DO> 04/14/24 112[address] [facility] Work Phone: Hiswlqd general Narrative - Reported* Type Description Date Medical History Diabetes mellitus Medical History Hyperlipemia Medical History Acid reflux Medical History Hiatal hernia Medical History Pituitary tumor Surgical History knee surgery Surgical History shoulder surgery Surgical History thyroid nodule removed Hospitalization History hematoma related to fall 2011 Hospitalization History TIA 03/2020 Hospitalization History DEHYDRATION 09/2020 [facility] Other History of Present illness Narrative* This [...] * -Most recent US on 12/2019 in [place], records not available * -Due for US [...] severe hypoglycemia episode to 30s requiring third libertarian assistance. Patient confused during the event. 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 [facility] [address] Work Phone: History of Present [...] * -Most recent US on 12/2019 in [place], records not available * -Due for US [...] severe hypoglycemia episode to 30s requiring third libertarian assistance. Patient confused during the event. 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 QB-Gspyqwervgqvg-GVT [address] Work Phone: Summary Purpose Family [...] [place] [address] [facility] Department of Medicine-[place] [address] Referral ID Status Reason Start Date Expiration Date Visits Requested Visits Authorized [id number] Pending Review Perform Procedure 05/07/2024 05/07/2025 1 1 Specialty Diagnoses / Procedures Referred By Saeid vences Referred To Contact Radiology Diagnoses Hypopituitarism (Multi) Hypogonadism male Hyperparathyroidism (Multi) Hyperprolactinemia (Multi) Type 2 diabetes mellitus without complication, with long-term current use of insulin (Multi) Thyroid nodule [place] [address] [address] [facility] Department of Medicine-[place] [address] Referral ID Status Reason Start Date Expiration Date Visits Requested Visits Authorized [id number] Authorized Perform Procedure 05/07/2024 05/07/2025 1 1 Additional Source Comments (unrecognized sect ion and content) No Status Records FoundNo Status Records FoundNo Status Records FoundNo Status Records FoundNo Status Records FoundNo Status Records FoundNo Status Records FoundNo Status Records Found INFORMATION SOURCE (unrecogn ized section and content) DATE CREATED AUTHOR 05/07/2018 [facility] DATE CREATED AUTHOR AUTHOR'S ORGANIZ ATION 10/11/2022 [facility] [place] DATE CREATED AUTHOR AUTHOR'S ORGANIZ ATION 10/11/2022 [employer] DATE CREATED AUTHOR AUTHOR'S ORGANIZ ATION [facility]/04/2023 [facility] DATE CREATED AUTHOR AUTHOR'S ORGANIZ ATION 04/22/2024 [facility] DATE CREATED AUTHOR AUTHOR'S ORGANIZ ATION 06/21/2024 [facility] DATE CREATED AUTHOR AUTHOR'S ORGANIZ ATION 07/15/2024 [facility] DATE CREATED AUTHOR AUTHOR'S ORGANIZ ATION 09/18/2024 [facility] Source Comments (unrecognize d section and content) In the event this informatio n is protected by the Federal Confidentiality of Alcohol and Drug Abuse Patient Records regulations: The Federal rules restrict any use of the information to criminally investigate or prosecute any alcohol or drug abuse patient.[facility] the event this information is protected by the Federal Confidentiality of Alcohol and Drug Abuse Patient Records regulations: The Federal rules restrict any use of the information to criminally investigate or prosecute any alcohol or drug abuse patient.[facility] Reason for Visit (unrecogniz ed section and content) Reason Comments Received Outside Medical Records Receive d Thyroid US report from [facility]. Indexed into chart. Reason Comments Insurance Authorization [place] Reason Comments Follow-up Pituitary Problem Reason Comments Thyroid Nodule Ultrasound 06/09/24. Care Teams (unrecognized sec tion and content) Double End Trimmer Relationship Specialty Start Date End Date Cabrera [...] Other Provider Active Start: April 14, 2024 Double End Trimmer Relationship Specialty Start Date End Date Cabrera Dupont MD PCP - General Family Medicine 01/21/19 Double End Trimmer Relationship Specialty Start Date End Date Cabrera Dupont MD [address] [facility] [place] [address] PCP - General 11/30/20 Double End Trimmer Relationship Specialty Start Date End Date Joseluis Quiroz MD [address] [place] [facility] [address] PCP - [facility] Medicine 03/23/24 Double End Trimmer Relationship Specialty Start Date End Date Joseluis Quiroz MD [address] [place] [facility] [address] PCP - General Family Medicine 03/23/24 [...] BE BASED ON THE PRIMARY CLINICAL RECORDS. [facility] [employer] provides no warranty or guarantee of the accuracy or completeness of information in this document.
[2024-12-10 11:14] LABS: Alanine Aminotransferase 16 U/L (16-63); Aspartate Amino Transferase 12 U/L (15-37); Chol HDL Ratio 2.2; Cholesterol 112 mg/dL (<=200); HDL Cholesterol 51 mg/dL (40-60); LDL Cholesterol Calculated 37.4 mg/dL; Triglycerides 118 mg/dL (<=150); VLDL CHOLESTEROL 23.6 mg/dL
== END 2024-12-10 08:55 | disposition home or self-care (01) ==
LOC: LAB 08:55
PROVIDERS: PCP Family Medicine; Visit Provider Internal Medicine Cardiovascular Disease
DX: E78.5 Hyperlipidemia, unspecified (principal); E11.65 Type 2 diabetes mellitus with hyperglycemia; E03.9 Hypothyroidism, unspecified
CPT/HCPCS: 36415; 80061; 83036; 84439; 84443; 84450; 84460

== ENCOUNTER 2024-12-11 11:59 | Outpatient (REF) | payer MEDICARE, SELFPAY ==
--- OUTSIDE RECORDS SUMMARY | 2024-12-11 12:05 | XMS_ITS | CCD ---
Author Organization [facility] CliniSyme Care Team Providers Care Social Insurance Specialist Name Role Phone PHYSICIAN, DEFAULT Unavailable Unavailable [...] Care Provider DO Merly Paul Attending Provider [phone] Joseluis Quiroz Primary Care Unavailable Merly Paul Admitting Unavailable Merly Paul Attending Unavailable Cabrera Dupont MD Primary Care Provider RAPHAEL SPRINGER Attending Unavailable HENRRY JOHNSON Attending Unavailable JOSELUIS QUIROZ Referring Unavailable MILAN PEÑA Attending Unavailable JANEE REDDY Attending Unavailable Cabrera Dupont MD Primary Care Provider [phone] Joseluis Quiroz MD Primary Care Provider [phone] Allergies Allergy Classification Reported Allergen(s) Allergy Type Date of Onset Reaction(s) Facility (2 sources) Lisinopril Drug Allergy 5 Other: See Comments [facility] Work Phone: (1 source) Lisinopril Propensity to adverse reactions 5 [facility] Work Phone: Medications Current Medications Medication Drug Class(es) Dates Sig (Normalized) Sig (Original) [id number] actuat albuterol 0.09 mg/actuat metered dose [...] other day for 0 *Pick strength-form from [employer] for eRX* Jul, Active Ocuvite TABS WYATT [...] Oral Once a day *Pick strength-form from [employer] for eRX* Jul, Active Start: 07-23-2022 take 1 tablet by woody th twice daily buPROPion HCl ER (XL) 150MG buPROPion HCl ER (XL) 150MG, 1 (one) Tablet Tablet two times daily # 180, 07/23/2022, Ref. x1. Active Oral two times daily for 0 *Pick strength-form from [facility] for eRX* Jul, Active Start: 04-13-2020 take [...] Status: Taking; Refills: 3; Provider: Ellie Austin esomeprazole 40 mg delayed release oral [...] as directed for 30 *Pick strength-form from [facility] for eRX* Jul, Active take 1 tablet by woody th once daily as needed Sildenafil Citrate 50 MG 1 tablet as needed Orally daily as directed for 30 days *Pick strength-form from [facility] for eRX* Active spironolactone 25 mg oral [...] Entry Transdermal daily for 0 *Reorder from [employer] for eRx and Interaction Alerts* Jul, Active [...] sources) Long-term current use of insulin; Translations: [long term (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 insulin] Episodic Other and [...] 11-13-2022 Episodic Other aftercare (1 source) Other 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 churn buttermaker (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) drug therapy; Translations: [OTH INTERMEDIATE CURRENT DRUG THERAPY] Onset: 11-13-2022 Episodic Other aftercare (1 source) long term (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 oral hypoglycemic drugs; Translations: [INFORMATION OPERATOR USE ORAL HYPOGLYCEMIC DX] Onset: 11-13-2022 Episodic Other aftercare (1 source) long term (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 insulin; Translations: [INTERMEDIATE CURRENT USE OF INSULIN] Onset: 11-13-2022 Episodic Other aftercare (1 source) intermediate (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 aspirin; Translations: [INFORMATION OPERATOR CURRENT USE OF ASPIRIN] Onset: 10-17-2022 Episodic [...] Range Facility Office Visiton 09-16-2024 Follow-up visit [id number] Gadiel Smith 1950 M Date Provider Department Center 09/16/2024 [id number] EPÑA [facility] Family History Problem Relation Age of [...] Paternal Grandmother Paternal Grandfather Other Level of Service:97569 ID OFFICE/OUTPATIENT ESTABLISHED MOD MDM 30 MIN Reason for Visit and Comments: Atrial Fibrillation [80] - S/p afib ablation vasovagal syncope [Other] Transient Ischemic Attack [994239] - X2 Carotid stenosis, bilateral [Other] Hyperlipidemia [182] - HAD LABS 09/15/24 Chronic systolic congestive heart failure [Other] - Congestive heart failure due to NICM Heart failure is stable . NYHA Class II Normal [facility] CNPMirta 06-18-2024 CNPN Telephone (PULMMN) GADIEL SMITH ([id number]) 1950 M Date Time Provider Department 06/18/24 RICKEY SALAMANCA PULROCKY During your visit today, we recorded the following information about you: Greg River 06/18/2024 4:24 PM Signed Received a mail from Sav with a notice on the Authorization for MRI, Brain, W/O Contrast Dated: 06/04/24 Status: Approve Service Requested: MRI, Brain, W/O Contrast Effective Dates: 06/04/2024 - 09/01/2024 Reference #: [id number] Uploaded into scan docs. Please allow time [...] LANCETS) lancets Use as instructed - Insulin [place], Disposable, (BD ULTRAFINE III MINI PEN) 31 [...] Status:Closed by GREG RIVER on 06/18/24 Normal [facility] 36on 04-21-2024 36 Regarding lab result s from 04/16/2024: YUN Gustafson MA Let him know liver function is perfect and cholesterol levels also are great- continue all meds and see you next time. Good job!! Spoke with patient's and made her aware. Normal [facility] Capillary blood glucose corey urement by glucometer (mass/volume)Ordered By: Merly Paul on 04-14-2024 Glucose [Mass/Vol] 73 mg/dL Normal [facility] Comment on above: Random Glucose Refer ence Range is dependent on time and content of last meal. Glucose of more than 200 mg/dL in a nonstressed, ambulatory subject supports the diagnosis of Diabetes Mellitus. Result Comment: [place] om Glucose Reference Range is dependent on time and content of last meal. Glucose of more than 200 mg/dL in a nonstressed, ambulatory subject supports the diagnosis of Diabetes Mellitus. PERFORMED BY: [place] [id number] [place] [address] PATHOLOGIST [employer] ANJANA SEWELL M.D. Performed By: #### G LULS #### Point of Care testing , [place] 04-14-2024 L Specimen: [id number] Received: 04/14/24 Status: MAYO Shi Num: [id number] Spec Type: Surgical Subm Dr: Merly Paul DO Tissues: A Colon Biopsy (CECAL POLYP) B Colon Biopsy (ASC POLYPS) C Colon Biopsy (TRANSV POLYP) D Colon Biopsy (DESC POLYP) Procedures: HE/8, Gross/Micro L4/4 Age/ Patient Sex Location Account Attending Physician Gadiel Smith 73/M [id number] Merly Paul DO SPEC NUM: [id number] RECD: 04/14/24 STATUS: MAYO SHI NUM: [id number] DIONICIO: 04/14/24- SUBM DR: Merly Paul DO ENTERED: 04/14/[address] [facility] [address]: Joseluis Quiroz MD SPEC TYPE: [...] adenoma Clinical Information Diarrhea, constipation ---- Specimen: [id number] Received: 04/14/24 Status: MAYO Shi Num: [id number] Spec Type: Surgical Subm Dr: Merly Paul, DO Tissues: A Colon Biopsy (CECAL POLYP) B Colon Biopsy (ASC POLYPS) C Colon Biopsy (TRANSV POLYP) D Colon Biopsy (DESC POLYP) Procedures: LILI/Claribel, Rivas/Micro L4/4 ---- Patient: Gadiel Smith [id number] (Continued) ---- Specimen: [id number] Received: 04/14/24 (Continued) Signed (signature on file) Suki Jackson MD 04/16/24 7240 ---- Specimen: [id number] Received: 04/14/24 Status: MAYO Shi Num: [id number] Spec Type: Surgical Subm Dr: Merly Paul, DO Tissues: A Colon Biopsy (CECAL POLYP) B Colon Biopsy (ASC POLYPS) C Colon Biopsy (TRANSV POLYP) D Colon Biopsy (DESC POLYP) Procedures: HE/8, Gross/Micro L4/4 ---- Patient: Gadiel Smith [id number] (Continued) ---- Specimen: [id number] Received: 04/14/24 (Continued) Gross Description Received are [...] entirely submitted in D1. TW CPT Codes 97724P4 ---- ---- Specimen: [id number] Received: 04/14/24 Status: MAYO Shi Num: [id number] Spec Type: Surgical Subm Dr: Merly Paul DO Tissues: A Colon Biopsy (CECAL POLYP) B Colon Biopsy (ASC POLYPS) C Colon Biopsy (TRANSV POLYP) D Colon Biopsy (DESC POLYP) Procedures: LILI/Rivas Sanford/Andrew L4/4 ---- Patient: Gadiel Smith [id number] (Continued) ---- Signed (signature on file) Bulmaro-Kalia Jackson MD 04/16/24 1330 Normal [facility] Office Visiton 04-01-2024 Follow-up visit [id number] Gadiel Smith 1950 M Date Provider Department Center 04/01/2024 Jo-Ann-MAUREEN JANEE CARD [facility] Family History Problem Relation Age of [...] Paternal Grandmother Paternal Grandfather Other Level of Service:18073 ID OFFICE/OUTPATIENT ESTABLISHED MOD MDM 30 MIN Reason for Visit and Comments: Follow-up [130035] - 7 month follow up Normal [facility] ECHOCARDIO M/2D COMPLETEon 0 02-28-2023 ECHOCARDIO M/2D COMPLETE Patient: GADIEL SMITH Exam Date: 02/28/2023 : 1950 Gender:M Ordering : TONA ESPINOZA Admission #: [id number] Family : DR JOSELUIS QUIROZ M.D. Order #: [id number] CLICK HERE TO VIEW EXAM ECHOCARDIOGRAM REPORT [...] Left Atrium LA Volume Index (2D A2C): 04333 mm3 Left Atrium Systolic Dimension: 4.90 cm [...] 023 Albumin [Mass/Vol] 3.7 g/dL Normal 3.4-5.0 [facility] Comment on above: Performed By: #### C MP #### [facility] [address] [place] [address] Dr. Esme Jackson Albumin/Globulin [Mass ratio] 1.1 {ratio} Normal [facility] Comment on above: Performed By: #### C MP #### [facility] [address] [place] [address] Dr. Esme Jackson ALP [Catalytic activity/Vol] 65 U/L Normal 46-116 [facility] Comment on above: Performed By: #### C MP #### [facility] [address] [address] [address] Esme Jackson ALT [Catalytic activity/Vol] 26 U/L Normal 16-63 [facility] Comment on above: Performed By: #### C MP #### [facility] [address] [address] [address] Esme Jackson Anion gap [Moles/Vol] 10.8 mmol/L Normal [facility] Comment on above: Performed By: #### C MP #### [facility] [address] [address] [address] Esme Jackson AST [Catalytic activity/Vol] 16 U/L Normal 15-37 [facility] Comment on above: Performed By: #### C MP #### [facility] [address] [place] [address] Dr. Esme Jackson Bilirubin [Mass/Vol] 1.1 mg/dL Critically high 0.2-1.0 [facility] Comment on above: Performed By: #### C MP #### [facility] [address] [address] [address] Esme Jackson Calcium [Mass/Vol] 9.4 mg/dL Normal 8.5-10.1 [facility] Comment on above: Performed By: #### C MP #### [facility] [address] [address] [address] Esme Jackson Chloride [Moles/Vol] 103 mmol/L Normal 98-107 [facility] Comment on above: Performed By: #### C MP #### [facility] [address] [place] [address] Dr. Esme Jackson CO2 [Moles/Vol] 28.5 mmol/L Normal 21.0-32.0 [facility] Comment on above: Performed By: #### C MP #### [facility] [address] [place] [address] Dr. Esme Jackson Creatinine [Mass/Vol] 1.07 mg/dL Normal 0.70-1.30 [facility] Comment on above: Performed By: #### C MP #### [facility] [address] [place] [address] Dr. Esme Jackson EGFR-AF KYRGYZ >60 Normal >=60 [facility] Comment on above: Performed By: #### C MP #### [facility] [address] [place] [address] Dr. Esme Jackson EGFR-NON AF KYRGYZ >60 Normal >=60 [facility] Comment on above: Performed By: #### C MP #### [facility] [address] [address] [address] Esme Jackson Globulin (S) [Mass/Vol] 3.5 g/dL Normal [facility] Comment on above: Performed By: #### C MP #### [facility] [address] [place] [address] Dr. Esme Jackson Glucose [Mass/Vol] 190 mg/dL Critically high 74-106 [facility] Comment on above: Performed By: #### C MP #### [facility] [address] [address] [address] Esme Jackson Potassium [Moles/Vol] 5.3 mmol/L Critically high 3.5-5.1 [facility] Comment on above: Performed By: #### C MP #### [facility] [address] [place] [address] Dr. Esme Jackson Protein [Mass/Vol] 7.2 g/dL Normal 6.4-8.2 [facility] Comment on above: Performed By: #### C MP #### [facility] [address] [place] [address] Dr. Esme Jackson Sodium [Moles/Vol] 137 mmol/L Normal 136-145 [facility] Comment on above: Performed By: #### C MP #### [facility] [address] [place] [address] Dr. Esme Jackson Urea nitrogen [Mass/Vol] 14.0 mg/dL Normal 7.0-18.0 [facility] Comment on above: Performed By: #### C MP #### [facility] [address] [place] [address] Dr. Esme Jackson Urea nitrogen/Creatinine [Mass ratio] 13.1 mg/mg Normal [facility] Comment on above: Performed By: #### C MP #### [facility] [address] [place] [address] Dr. Esme Jackson BNPon 11-10-2022 Natriuretic peptide B (Bld) [Mass/Vol] 6259.0 pg/mL Critically high <=900.0 [facility] Comment on above: Performed By: #### B ENVIRONMENTAL TEST TECHNICIAN, BMP, HSTROPN #### [facility] [address] [place] [address] Dr. Esme Jackson CBC AUTO DIFFon 11-10-2022 BASO # 0.0 103/ul Normal 0.0-0.1 [facility] Comment on above: Performed By: #### C BC #### [facility] [address] [place] [address] Dr. Esme Jackson Basophils/100 WBC (Bld) 0.5 % Normal 0.2-2.0 [facility] Comment on above: Performed By: #### C BC #### [facility] [address] [place] [address] Dr. Esme Jackson EO # 0.3 103/ul Normal 0.0-0.7 [facility] Comment on above: Performed By: #### C BC #### [facility] [address] [place] [address] Dr. Esme Jackson Eosinophils/100 WBC (Bld) 3.6 % Normal 0.9-7.0 [facility] Comment on above: Performed By: #### C BC #### [facility] [address] [place] [address] Dr. Esme Jackson Erythrocyte distribution width (RBC) [Ratio] 14.8 % Normal 11.0-15.0 [facility] Comment on above: Performed By: #### C BC #### [facility] [address] [place] [address] Dr. Esme Jackson Hematocrit (Bld) [Volume fraction] 36.9 % Critically low 42.0-54.0 [facility] Comment on above: Performed By: #### C BC #### [facility] [address] [place] [address] Dr. Esme Jackson Hemoglobin (Bld) [Mass/Vol] 12.0 g/dL Critically low 14.0-18.0 [facility] Comment on above: Performed By: #### C BC #### [facility] [address] [place] [address] Dr. Esme Jackson IG # 0.04 10e3/ul Critically high 0.00-0.03 [facility] Comment on above: Performed By: #### C BC #### [facility] [address] [place] [address] Dr. Esme Jackson IG % 0.5 % Normal 0.0-0.5 [facility] Comment on above: Performed By: #### C BC #### [facility] [address] [place] [address] Dr. Esme Jackson LYMPH # 1.3 103/ul Normal 1.2-3.8 [facility] Comment on above: Performed By: #### C BC #### [facility] [address] [place] [address] Dr. Esme Jackson Lymphocytes/100 WBC (Bld) 18.2 % Critically low 20.5-60.0 [facility] Comment on above: Performed By: #### C BC #### [facility] [address] [place] [address] Dr. Esme Jackson MANUAL DIFF REQ NO Normal [facility] Comment on above: Performed By: #### C BC #### [facility] [address] [place] [address] Dr. Esme Jackson MCH (RBC) [Entitic mass] 28.0 pg Normal 25.9-34.0 [facility] Comment on above: Performed By: #### C BC #### [facility] [address] [place] [address] Dr. Esme Jackson MCHC (RBC) [Mass/Vol] 32.5 g/dL Normal 29.9-35.2 [facility] Comment on above: Performed By: #### C BC #### [facility] [address] [place] [address] Dr. Esme Jackson MCV (RBC) [Entitic vol] 86.0 fL Normal 80.0-94.0 [facility] Comment on above: Performed By: #### C BC #### [facility] [address] [place] [address] Dr. Esme Jackson MONO # 0.5 103/ul Normal 0.3-0.8 [facility] Comment on above: Performed By: #### C BC #### [facility] [address] [place] [address] Dr. Esme Jackson Monocytes/100 WBC (Bld) 7.3 % Normal 1.7-12.0 [facility] Comment on above: Performed By: #### C BC #### [facility] [address] [place] [address] Dr. Esme Jackson NEUT # 5.1 103/ul Normal 1.4-6.5 [facility] Comment on above: Performed By: #### C BC #### [facility] [address] [place] [address] Dr. Esme Jackson Neutrophils/100 WBC (Bld) 69.9 % Normal 43.0-75.0 [facility] Comment on above: Performed By: #### C BC #### [facility] [address] [place] [address] Dr. Esme Jackson Platelet mean volume (Bld) [Entitic vol] 10.3 fL Normal 9.5-13.5 [facility] Comment on above: Performed By: #### C BC #### [facility] [address] [place] [address] Dr. Esme Jackson PLT 220 103/ul Normal 150-450 [facility] Comment on above: Performed By: #### C BC #### [facility] [address] [place] [address] Dr. Esme Jackson RBC 4.29 106/ul Critically low 4.70-6.10 [facility] Comment on above: Performed By: #### C BC #### [facility] [address] [place] [address] Dr. Esme Jackson WBC 7.3 103/ul Normal 4.0-11.0 [facility] Comment on above: Performed By: #### C BC #### [facility] [address] [place] [address] Dr. Esme Jackson Covid-19 PCR ([facility])on 10-13 SARS-CoV-2 (COVID-19) RNA HANSA+probe Ql (Unsp spec) Not detected Normal NOT DETECTED [facility] Comment on above: Result Comment: When diagnostic [...] for this test is supported by the Curriculum Supervisor of Health and Human Service's declaration [...] used). Performed By: #### C VDTBH #### [facility] [address] [place] [address] Dr. Esme Jackson INFLUENZA A AND B AGon 11-10 [facility]OW Normal [facility] Comment on above: Result Comment: Nega tive for Flu A protein angiten. Infection due to Flu A cannot be ruled out. Flu A angiten in the sample may be below the detection limit of the test. Performed By: #### F T4 #### [facility] [address] [place] [address] Dr. Esme Jackson [facility] BEL[facility] Normal [facility] Comment on above: Result Comment: Nega tive for Flu B protein antigen. Infection due to Flu B cannot be ruled out. Flu B antigen in the sample may be below the detection limit of the test. Performed By: #### F T4 #### [facility] [address] [place] [address] Dr. Esme Jackson INFLUENZA A AG Negative Normal NEGATIVE SEE COMMENT [facility] Comment on above: Performed By: #### F T4 #### [facility] [address] [place] [address] Dr. Esme Jackson INFLUENZA B AG Negative Normal NEGATIVE SEE COMMENT [facility] Comment on above: Performed By: #### F T4 #### [facility] [address] [place] [address] Dr. Esme Jackson PROF CHEM 8 (BAS METB)on Anion gap [Moles/Vol] 13.9 mmol/L Normal [facility] Comment on above: Performed By: #### B ENVIRONMENTAL TEST TECHNICIAN, BMP, HSTROPN #### [facility] [address] [place] [address] Dr. Esme Jackson Calcium [Mass/Vol] 8.7 mg/dL Normal 8.5-10.1 [facility] Comment on above: Performed By: #### B ENVIRONMENTAL TEST TECHNICIAN, BMP, HSTROPN #### [facility] [address] [address] [address] Esme Jackson Chloride [Moles/Vol] 104 mmol/L Normal 98-107 [facility] Comment on above: Performed By: #### B ENVIRONMENTAL TEST TECHNICIAN, BMP, HSTROPN #### [facility] [address] [address] [address] Esme Jackson CO2 [Moles/Vol] 25.2 mmol/L Normal 21.0-32.0 [facility] Comment on above: Performed By: #### B ENVIRONMENTAL TEST TECHNICIAN, BMP, HSTROPN #### [facility] [address] [address] [address] Esme Jackson Creatinine [Mass/Vol] 1.04 mg/dL Normal 0.70-1.30 [facility] Comment on above: Performed By: #### B ENVIRONMENTAL TEST TECHNICIAN, BMP, HSTROPN #### [facility] [address] [address] [address] Esme Jackson EGFR-AF KYRGYZ >60 Normal >=60 [facility] Comment on above: Performed By: #### B ENVIRONMENTAL TEST TECHNICIAN, BMP, HSTROPN #### [facility] [address] [address] [address] Esme Jackson EGFR-NON AF KYRGYZ >60 Normal >=60 [facility] Comment on above: Performed By: #### B ENVIRONMENTAL TEST TECHNICIAN, BMP, HSTROPN #### [facility] [address] [address] [address] Esme Jackson Glucose [Mass/Vol] 199 mg/dL Critically high 74-106 [facility] Comment on above: Performed By: #### B ENVIRONMENTAL TEST TECHNICIAN, BMP, HSTROPN #### [facility] [address] [address] [address] Esme Jackson Potassium [Moles/Vol] 4.1 mmol/L Normal 3.5-5.1 [facility] Comment on above: Performed By: #### B ENVIRONMENTAL TEST TECHNICIAN, BMP, HSTROPN #### [facility] [address] [address] [address] Esme Jackson Sodium [Moles/Vol] 139 mmol/L Normal 136-145 [facility] Comment on above: Performed By: #### B ENVIRONMENTAL TEST TECHNICIAN, BMP, HSTROPN #### [facility] [address] [address] [address] Esme Jackson Urea nitrogen [Mass/Vol] 18.0 mg/dL Normal 7.0-18.0 [facility] Comment on above: Performed By: #### B ENVIRONMENTAL TEST TECHNICIAN, BMP, HSTROPN #### [facility] [address] [address] [address] Esme Jackson Urea nitrogen/Creatinine [Mass ratio] 17.3 mg/mg Normal [facility] Comment on above: Performed By: #### B ENVIRONMENTAL TEST TECHNICIAN, BMP, HSTROPN #### [facility] [address] [address] [address] Esme Jackson TROPONIN, HIGH SENSITIVITYon 11-10-2022 [...] FOR [place] DIAGNOSIS. Performed By: #### B ENVIRONMENTAL TEST TECHNICIAN, BMP, HSTROPN #### [facility] [address] [place] [address] Dr. Esme Jackson XR CHEST 1 Von [...] osseous structures are stable. Electronically authenticated by: [employer] Date: 2022-11-10 09:24 Normal [facility]on SARS-CoV-2 (COVID-19) RNA HANSA+probe Ql (Unsp spec) Not detected Normal NOT DETECTED [facility] Comment on above: Result Comment: When diagnostic [...] for this test is supported by the Curriculum Supervisor of Health and Human Service's declaration [...] used). Performed By: #### C VDTB #### [facility] [address] [place] [address] Dr. Esme Jackson INFLUENZA A AND B [facility] 10-15 [facility] SEE BELOW Normal [facility] Comment on above: Result Comment: Nega tive for Flu A protein angiten. Infection due to Flu A cannot be ruled out. Flu A angiten in the sample may be below the detection limit of the test. Performed By: #### F T4 #### [facility] [address] [place] [address] Dr. Esme Jackson [facility] SEE BEL[facility] Normal [facility] Comment on above: Result Comment: Nega tive for Flu B protein antigen. Infection due to Flu B cannot be ruled out. Flu B antigen in the sample may be below the detection limit of the test. Performed By: #### F T4 #### [facility] [address] [place] [address] Dr. Esme Jackson INFLUENZA A AG Negative Normal NEGATIVE SEE COMMENT [facility] Comment on above: Performed By: #### F T4 #### [facility] [address] [place] [address] Dr. Esme Jackson INFLUENZA B AG Negative Normal NEGATIVE SEE COMMENT [facility] Comment on above: Performed By: #### F T4 #### [facility] [address], [place] [address] Dr. Esme Jackson INTERNAL CONTROLS Within Normal Limits Normal Wi thin Normal Limits [facility] Comment on above: Performed By: #### F T4 #### [facility] [address], [place] [address] Dr. Esme Jackson XR CHEST 2 Von [...] RAPHAEL NUNEZ Date: 2022-10-15 10:08 Normal [facility] Follow Up (Endocrinology)on 10-10-2022 Follow Up (Endocrinology) [...] insulin; CATIE = N; [id number]; Last Updated By: SystemLuqit; 10/10/2022 11:29:03 AM Albumin, Urine Spot; Status:Active; Requested for:10Oct2022; Perform:Lab Services - Lab To Draw (Non-Blood Test); Due:[id number];Ordered; For:Central hypothyroidism, Hyperlipemia, Hypogonadism male, Pituitary macroadenoma, Thyroid nodule, Type 2 diabetes mellitus with other specified complication, with long-term current use of insulin; Ordered By:Mandie Salamanca; Brain Natriuretic Peptide BNP; Status:Active; Requested for:10Oct2022; Perform:Lab Services - Lab To Draw (Blood Test); Due:[id number];Ordered; For:Central hypothyroidism, Hyperlipemia, Hypogonadism male, Pituitary macroadenoma, Thyroid nodule, Type 2 diabetes mellitus with other specified complication, with long-term current use of insulin; Ordered By:Mandie Salamanca; Complete Blood Count + Differential; Status:Active; Requested for:10Oct2022; Perform:Lab Services - Lab To Draw (Blood Test); Due:[id number];Ordered; For:Central hypothyroidism, Hyperlipemia, Hypogonadism male, Pituitary macroadenoma, Thyroid nodule, Type 2 diabetes mellitus with other specified complication, with long-term current use of insulin; Ordered By:Mandie Salamanca; Comprehensive Metabolic Panel; Status:Active; Requested for:10Oct2022; Perform:Lab Services - Lab To Draw (Blood Test); Due:[id number];Ordered; For:Central hypothyroidism, Hyperlipemia, Hypogonadism male, Pituitary macroadenoma, [...] Cortisol AM 19.6 ug/dL Critically high 6.2-19.4 [facility] Comment on above: Performed By: #### C ORTAM #### [facility] [address] [place] [address] [address] Esme Jackson MICROALBUMIN URINEon 022 Albumin, Urine 36.5 ug/mL Normal Not Estab. The [facility] Comment on above: Performed By: #### F T4 #### [facility] [address] [address] [address] Esme Jackson FREE T4on 06-22-2022 Free T4 [Mass/Vol] 1.22 ng/dL Normal 0.76-1.46 [facility] Comment on above: Performed By: #### F T4 #### [facility] [address] [place] [address] Dr. Esme Jackson GLYCOHEMOGLOBIN A1Con 2021 ADA RECOMMENDATION SEE BELOW Normal [facility] Comment on above: Result Comment: ADA RECOMMENDED LIMIT 4.0 - 6.0 ADA THERAPEUTIC TARGET < 7.0 ACTION SUGGESTED > 7.0 Performed By: #### F T4 #### [facility] [address] [place] [address] Dr. Esme Jackson Glucose [Mass/Vol] 194 mg/dL Normal [facility] Comment on above: Performed By: #### F T4 #### [facility] [address] [address] [address] Esme Jackson HbA1c (Bld) [Mass fraction] 8.4 % Critically high 4.5-6.2 [facility] Comment on above: Performed By: #### F T4 #### [facility] [address] [address] [address] Esme Jackson LIPID PROFILEon 06-22-2022 CHOL-HDL RATIO NORM SEE BELOW Normal [facility] Comment on above: Result Comment: 3.3 - 4.4 LOW RISK 4.4 - 7.1 AVERAGE RISK 7.1 - 11.0 MODERATE RISK >11.0 HIGH RISK Performed By: #### F T4 #### [facility] [address] [address] [address] Esme Jackson Cholesterol [Mass/Vol] 153 mg/dL Normal <=200 [facility] Comment on above: Performed By: #### F T4 #### [facility] [address] [address] [address] Esme Jackson Cholesterol in HDL [Mass/Vol] 55 mg/dL Normal 40-60 [facility] Comment on above: Performed By: #### F T4 #### [facility] [address] [address] [address] Esme Jackson Cholesterol in LDL [Mass/Vol] 82.2 mg/dL Normal [facility] Comment on above: Performed By: #### F T4 #### [facility] [address] [address] [address] Esme Jackson Cholesterol.total/Ch olesterol in HDL [Mass ratio] 2.8 {ratio} Normal [facility] Comment on above: Performed By: #### F T4 #### [facility] [address] [address] [address] Esme Jackson HDL NORMAL > or = 60 mg/dl - LO W CARDIOVASCULAR RISK <40 mg/dl - HIGH CARDIOVASCULAR RISK Normal [facility] Comment on above: Performed By: #### F T4 #### [facility] [address] [address] [address] Esme Jackson LDL CALC NORMAL SEE BELOW Normal [facility] Comment on above: Result Comment: <100 mg/dl OPTIMAL 100 - 129 mg/dl NEAR OR ABOVE OPTIMAL 130 - 159 mg/dl BORDERLINE HIGH 160 - 189 mg/dl HIGH >190 mg/dl VERY HIGH Performed By: #### F T4 #### [facility] [address] [address] [address] Esme Jackson Triglyceride [Mass/Vol] 79 mg/dL Normal <=150 [facility] Comment on above: Performed By: #### F T4 #### [facility] [address] [address] [address] Esme Jackson VLDL CALC 15.8 mg/dL Normal [facility] Comment on above: Performed By: #### F T4 #### [facility] [address] [place] [address] Dr. Esme Jackson PROF 14(COMP METB)on 022 Albumin [Mass/Vol] 3.9 g/dL Normal 3.4-5.0 [facility] Comment on above: Performed By: #### F T4 #### [facility] [address] [place] [address] Dr. Esme Jackson Albumin/Globulin [Mass ratio] 1.1 {ratio} Normal [facility] Comment on above: Performed By: #### F T4 #### [facility] [address] [place] [address] Dr. Esme Jackson ALP [Catalytic activity/Vol] 57 U/L Normal 46-116 [facility] Comment on above: Performed By: #### F T4 #### [facility] [address] [place] [address] Dr. Esme Jackson ALT [Catalytic activity/Vol] 22 U/L Normal 16-63 [facility] Comment on above: Performed By: #### F T4 #### [facility] [address] [place] [address] Dr. Esme Jackson Anion gap [Moles/Vol] 12.6 mmol/L Normal [facility] Comment on above: Performed By: #### F T4 #### [facility] [address] [place] [address] Dr. Esme Jackson AST [Catalytic activity/Vol] 18 U/L Normal 15-37 [facility] Comment on above: Performed By: #### F T4 #### [facility] [address] [place] [address] Dr. Esme Jackson Bilirubin [Mass/Vol] 1.1 mg/dL Critically high 0.2-1.0 [facility] Comment on above: Performed By: #### F T4 #### [facility] [address] [place] [address] Dr. Esme Jackson Calcium [Mass/Vol] 9.0 mg/dL Normal 8.5-10.1 [facility] Comment on above: Performed By: #### F T4 #### [facility] [address] [place] [address] [address] Esme Jackson Chloride [Moles/Vol] 103 mmol/L Normal 98-107 [facility] Comment on above: Performed By: #### F T4 #### [facility] [address] [place] [address] Dr. Esme Jackson CO2 [Moles/Vol] 27.2 mmol/L Normal 21.0-32.0 [facility] Comment on above: Performed By: #### F T4 #### [facility] [address] [place] [address] Dr. Esme Jackson Creatinine [Mass/Vol] 0.90 mg/dL Normal 0.70-1.30 [facility] Comment on above: Performed By: #### F T4 #### [facility] [address] [place] [address] Dr. Esme Jackson EGFR-AF KYRGYZ >60 Normal >=60 [facility] Comment on above: Performed By: #### F T4 #### [facility] [address] [place] [address] Dr. Esme Jackson EGFR-NON AF KYRGYZ >60 Normal >=60 [facility] Comment on above: Performed By: #### F T4 #### [facility] [address] [place] [address] Dr. Esme Jackson Globulin (S) [Mass/Vol] 3.4 g/dL Normal [facility] Comment on above: Performed By: #### F T4 #### [facility] [address] [place] [address] Dr. Esme Jackson Glucose [Mass/Vol] 185 mg/dL Critically high 74-106 [facility] Comment on above: Performed By: #### F T4 #### [facility] [address] [place] [address] Dr. Esme Jackson Potassium [Moles/Vol] 3.8 mmol/L Normal 3.5-5.1 [facility] Comment on above: Performed By: #### F T4 #### [facility] [address] [place] [address] Dr. Esme Jackson Protein [Mass/Vol] 7.3 g/dL Normal 6.4-8.2 [facility] Comment on above: Performed By: #### F T4 #### [facility] [address] [place] [address] [address] Esme Jackson Sodium [Moles/Vol] 139 mmol/L Normal 136-145 [facility] Comment on above: Performed By: #### F T4 #### [facility] [address] [place] [address] [address] Esme Jackson Urea nitrogen [Mass/Vol] 12.0 mg/dL Normal 7.0-18.0 [facility] Comment on above: Performed By: #### F T4 #### [facility] [address] [place] [address] Dr. Esme Jackson Urea nitrogen/Creatinine [Mass ratio] 13.3 mg/mg Normal [facility] Comment on above: Performed By: #### F T4 #### [facility] [address] [place] [address] Dr. Esme Jackson US THYROIDon 06-22-2022 US [...] nodules. 1 year follow-up recommended TI-RADS: The [employer] TI-RADS committee's white paper recommendations for thyroid lesions classified as TR5 (highly suspicious) are listed below: > 0.5 cm. Annual ultrasound follow-up for up to 5 years. > 1.0 cm. FNA. J. Am Dionicio Radiol 2017;14:587-595. Electronically authenticated by: GEORGIE DAVIES Date: 2022-06-22 17:28 Normal [facility] Follow Up (Endocrinology)on 04-24-2022 Follow Up [...] Services - Lab To Draw (Blood Test); Due:[id number];Ordered; For:Central hypothyroidism, Hyperlipemia, Hypogonadism male, Pituitary macroadenoma, Thyroid nodule, Type 2 diabetes mellitus with other specified complication, with long-term current use of insulin; Ordered By:Mandie Salamanca; Cortisol A.M.; Status:Active; Requested for:24Apr2022; Perform:Lab Services - Lab To Draw (Blood Test); Due:[id number];Ordered; For:Central hypothyroidism, Hyperlipemia, Hypogonadism male, Pituitary macroadenoma, [...] Thyroid; Status:Hold For - Scheduling; Requested for:24Apr2022; Perform:[facility]; Due:23Jul2022;Ordered; For:Central hypothyroidism, [...] nodule; CATIE = N; [facility]; Last Updated By: Superhuman appEatIT; 04/24/2022 10:33:22 AM Hypogonadism male, Pituitary macroadenoma Renew: Testosterone 50 MG/5GM (1%) Transdermal Gel; APPLY 1 PACKET ONE TIME DAILY DIRECTED Rx By: Mandie Salamanca; Dispense: 0 Days ; #:90 X 5 GM Package; Refill: 1;For: Hypogonadism male, Pituitary macroadenoma; CATIE = N; Verified Transmission to [facility]; Last Updated By: Superhuman appEatIT; 04/24/2022 10:33:21 AM Pituitary macroadenoma Renew: Cabergoline 0.5 MG Oral Tablet; Take 1 tablet every other day Rx By: Mandie Salamanca; Dispense: 80 Days ; #:40 Tablet; Refill: 3;For: Pituitary macroadenoma; CATIE = N; Verified Transmission to [facility]; Last Updated By: PANOSOL; 04/24/2022 10:33:26 AM Type 2 diabetes mellitus with other specified complication, with long-term current use of insulin Renew: Accu-Chek Alicia Plus In Vitro Strip; TEST TWICE DAILY Rx B (more content not included)... Normal [facility] Tobacco Screening.on 022 Adult depression screening assessment No -Med[facility] [address] Work Phone: Fall risk assessment a) No falls within the last year [facility] [address] Work Phone: Tobacco use status CPHS b) No [place] [address] Work Phone: Vital Signs Date Time Vital Sign Value Performing Clinician Facility 07-14-2024 11:22-0400 Body height 182.9 cm Henrry Johnson MD Work Phone: [facility] 07-14-2024 11:22-0400 Body mass index (BMI) [Ratio] 26.31 kg/m2 Henrry Johnson MD Work Phone: [facility] 07-14-2024 11:22-0400 Body weight 88 kg Henrry Johnson MD Work Phone: [facility] 07-14-2024 11:22-0400 Diastolic blood pressure 62 mm[Hg] Henrry Johnson MD Work Phone: [facility] 07-14-2024 11:22-0400 Systolic blood pressure 131 mm[Hg] Henrry Johnson MD Work Phone: [facility] 04-14-2024 12:35-0400 Diastolic blood pressure 63 mm[Hg] MD Joseluis Quiroz Work Phone: [facility] 04-14-2024 12:35-0400 Heart rate 54 /min MD Joseluis Quiroz Work Phone: [facility] 04-14-2024 12:35-0400 Respiratory rate 18 /min MD Joseluis Quiroz Work Phone: [facility] 04-14-2024 12:35-0400 SaO2% (BldA) [Mass fraction] 99 % MD Joseluis Quiroz Work Phone: [facility] 04-14-2024 12:35-0400 Systolic blood pressure 125 mm[Hg] MD Joseluis Quiroz Work Phone: [facility] 04-14-2024 11:02-0400 Body height 182.88 cm MD Joseluis Quiroz Work Phone: [facility] 04-14-2024 11:02-0400 Body weight 86.18 kg MD Joseluis Quiroz Work Phone: [facility] 03-18-2024 10:35-0400 Body height 182.88 cm MD Joseluis Quiroz Work Phone: [facility] 03-18-2024 10:35-0400 Body mass index (BMI) [Ratio] 25.7 kg/m2 MD Joseluis Quiroz Work Phone: [facility] 03-18-2024 10:35-0400 Body weight 86.18 kg MD Joseluis Quiroz Work Phone: [facility] 03-06-2024 10:52-0400 Body height 182.88 cm MD Joseluis Quiroz Work Phone: [facility] 03-06-2024 10:52-0400 Body mass index (BMI) [Ratio] 26.9 kg/m2 MD Joseluis Quiroz Work Phone: [facility] 03-06-2024 10:52-0400 Body temperature 99.2 [degF] MD Joseluis Quiroz Work Phone: [facility] 03-06-2024 10:52-0400 Body weight 89.98 kg MD Joseluis Quiroz Work Phone: [facility] 03-06-2024 10:52-0400 Diastolic blood pressure 60 mm[Hg] MD Joseluis Quiroz Work Phone: [facility] 03-06-2024 10:52-0400 Heart rate 69 /min MD Joseluis Quiroz Work Phone: [facility] 03-06-2024 10:52-0400 Respiratory rate 18 /min MD Joseluis Quiroz Work Phone: [facility] 03-06-2024 10:52-0400 SaO2% (BldA) [Mass fraction] 95 % MD Joseluis Quiroz Work Phone: [facility] 03-06-2024 10:52-0400 Systolic blood pressure 127 mm[Hg] MD Joseluis Quiroz Work Phone: [facility] 10-29-2023 13:30-0500 Body height 182.88 cm Joseluis Quiroz Other [facility] [employer] Other 10-29-2023 13:30-0500 Body mass index (BMI) [Ratio] 26.09 kg/m2 Joseluis Quiroz Other [facility] Other 10-29-2023 13:30-0500 Body weight 87.27 kg Joseluis Quiroz Other [facility] Other 10-29-2023 13:30-0500 Diastolic blood pressure 72 mm[Hg] Joseluis Quiroz Other [facility] Other 10-29-2023 13:30-0500 SaO2% (BldA) [Mass fraction] 93 % Joseulis Quiroz Other [facility] Other 10-29-2023 13:30-0500 Systolic blood pressure 130 mm[Hg] Joseluis Quiroz Other [facility] Other 08-19-2023 11:00-0400 Body height 182.88 cm Joseluis Quiroz Other [facility] Other 08-19-2023 11:00-0400 Body mass index (BMI) [Ratio] 25.36 kg/m2 Joseluis Quiroz Other [facility] Other 08-19-2023 11:00-0400 Body weight 84.82 kg Joseluis Quiroz Other [facility] Other 08-19-2023 11:00-0400 Diastolic blood pressure 61 mm[Hg] Joseluis Quiroz Other [facility] Other 08-19-2023 11:00-0400 Systolic blood pressure 126 mm[Hg] Joseluis Quiroz Other [facility] Other Encounters Encounter Date Encounter Type Care Provider Facility Start: 09-16-2024 End: 09-16-2024 [facility] Start: 07-14-2024 End: 07-14-2024 Brittany Garrido H [...] Medicine Comment on above: Insurance Authorizat ion ([place]) Start: 05-07-2024 End: 05-07-2024 Office outpatient visit 40 minutes Mandie Salamanca MD Work Phone: [facility] Comment on above: Hypopituitarism ([place]) (Primary Dx); Hypogonadism male; Hyperparathyroidism (Multi); Hyperprolactinemia (Multi); Type 2 diabetes mellitus without complication, with long-term current use of insulin (Multi); Thyroid nodule Start: 04-14-2024 Non-patient / Non-visit MD Hiral Quiroz Work Phone: [facility] Gastroenterology Work Phone: Start: 04-14-2024 End: 04-14-2024 Admission to same day surgery center MD Joseluis Quiroz Work Phone: [facility] Work Phone: Start: 04-14-2024 End: 04-14-2024 ambulatory MD Joseluis Quiroz Work Phone: [facility] Work Phone: Start: 04-01-2024 End: 04-01-2024 [facility] Start: 03-23-2024 End: 03-23-2024 ambulatory RAPHAEL SPRINGER Not Available Start: 03-18-2024 End: 03-18-2024 Patient encounter procedure MD Joselius Quiroz Work Phone: [facility] Gastroenterology Work Phone: Start: 03-06-2024 End: 03-06-2024 Patient encounter procedure MD Joseluis Quiroz Work Phone: [facility] Work Phone: Start: 12-23-2023 End: 12-23-2023 ambulatory Joseluis Quiroz Other [facility] Other Start: 12-23-2023 Telephone encounter Joseluis Quiroz [facility] Start: 10-29-2023 End: 10-29-2023 ambulatory Joseluis Quiroz Other [facility] Other Start: 10-29-2023 Office outpatient vi sit 15 minutes Joseluis Quiroz [facility] Start: 10-16-2023 End: 10-16-2023 ambulatory Joseluis Quiroz Other [facility] Other Start: 10-16-2023 Telephone encounter Joseluis Ellie [facility] Start: 09-13-2023 End: 09-13-2023 ambulatory Joseluis Quiroz Other [facility] Other Start: 09-13-2023 Telephone encounter Joseluis Ellie [facility] Start: 09-10-2023 End: 09-10-2023 ambulatory Joseluis Ellie Other [facility] Other Start: 09-10-2023 Telephone encounter Joseluis Ellie [facility] Start: 08-19-2023 End: 08-19-2023 ambulatory Joseluis Quiroz Other [facility] Other Start: 08-19-2023 Office outpatient vi sit 15 minutes Joseluis Quiroz [facility] Start: 07-31-2023 End: 07-31-2023 ambulatory Joseluis Quiroz Other [facility] [employer] Other Start: 07-31-2023 Telephone encounter Joseluis Quiroz [facility] Start: 05-29-2023 Rx Renewal Cabrera Dupont Work Phone: [facility] [address] Work Phone: Start: 04-08-2023 Rx Renewal Cabrera [place]ont Work Phone: [facility] [place] [address] [place] Work Phone: Start: 02-28-2023 End: 03-01-2023 ambulatory TONA SHAKIRA Facility:H1 Start: 01-30-[address] JOSELUIS QUIROZ Facil ity:H1 Start: 01-22-2023 AUDIT Cabrera [address]ont Work Phone: [facility] Work Phone: Start: 01-22-2023 Rx [...] sit 25 minutes Cabrera Dupont Work Phone: VB-Ubxhwjtvcqxme-MUB [place] [address] Work Phone: Start: 10-10-2022 ambulatory Referral Self Facility: [id number] Start: 09-28-2022 AUDIT Cab[address]ont Work Phone: QC[facility]ijf[facility] Work Phone: Start: 07-13-2022 Rx Renewal [address] Work Phone: [facility] [address] [place] Work Phone: Start: 07-02-2022 Telephone encounter Mandie sun MD Work Phone: Endocrinology Comment on above: Received Outside Med ical Records (Received Thyroid US report from [facility]. Indexed into chart. ) Start: 06-22-2022 End: 06-23-[address] DOCTOR BUSBY Facility:H1 Start: 04-24-2022 Office outpatient vi sit 40 minutes [address] Work Phone: [facility] [address] Work Phone: Start: 04-24-[address] Cabrera Dupont Facility:[id number] Start: 03-27-2022 AUDIT Cabrera [address] Work Phone: DZ[facility]ryh[facility]akviwje[facility] Work Phone: Start: 01-23-2022 AUDIT [address] Work Phone: PB[facility]Nhzcylstrloqm[facility] Work Phone: Start: 12-11-2021 Rx Renewal [address]rera [address] Work Phone: GC[facility]Tdnaqnxiuwlsq[facility] Work Phone: Start: 11-08-2021 AUDIT Cabrera [address]ont Work Phone: LK-Iuckvcclmfzbe-Vuwjhcz [facility] Work Phone: Start: 08-21-2021 AUDIT Cabrera [address] Work Phone: II-Cxfodvojqcsvq-FEE [place] [address] Work Phone: Start: 05-31-2021 AUDIT [address]rera [address] Work Phone: AM-Ciortlzivcxvx-MRH [place] [address] Work Phone: Start: 06-20-2017 End: 06-21-2017 Ambulatory DEFAULT PHYSICIAN Facility:[facility] Procedures Date Procedure Procedure Detail Performing [...] EDT Office Visit [facility] [address] [facility] [address] [place] [id number] Henrry Jhonson MD [address] [facility] [address] [place] [address] Arrived [facility] Comment on above: Arrived Start: 07-12-2024 Influenza vaccination [facility] Start: 05-07-2024 End: 05-07-2025 Comprehensive metabolic 2000 panel - Serum or Plasma Comprehensive Metabolic Panel Lab Routine Hypopituitarism (Multi) Hypogonadism male Hyperparathyroidism (Multi) Hyperprolactinemia (Multi) Type 2 diabetes mellitus without complication, with long-term current use of insulin (Multi) Expected: 05/07/2024 (Approximate), Expires: 05/07/2025 [facility] Work Phone: Comment on above: Expected: 05/07/2024 (Approximate), Expi res: 05/07/2025 Start: 05-07-2024 End: 05-07-2025 Cortisol [Mass/volume] in Serum or Plasma Cortisol Lab Routine Hypopituitarism (Multi) Hypogonadism male Hyperparathyroidism (Multi) Hyperprolactinemia (Multi) Type 2 diabetes mellitus without complication, with long-term current use of insulin (Multi) Expected: 05/07/2024 (Approximate), Expires: 05/07/2025 [facility] Service Area Work Phone: Comment on above: Expected: 05/07/2024 (Approximate), Expi res: 05/07/2025 Start: 05-07-2024 End: 05-07-2025 Hemoglobin A1c/Hemoglobin.total in Blood Hemoglobin A1C Lab Routine Hypopituitarism (Multi) Hypogonadism male Hyperparathyroidism (Multi) Hyperprolactinemia (Multi) Type 2 diabetes mellitus without complication, with long-term current use of insulin (Multi) Expected: 05/07/2024 (Approximate), Expires: 05/07/2025 [facility] Work Phone: Comment on above: Expected: 05/07/2024 (Approximate), Expi res: 05/07/2025 Start: 05-07-2024 End: 05-07-2025 Lipid 1996 panel - Serum or Plasma Lipid Panel Lab Routine Hypopituitarism (Multi) Hypogonadism male Hyperparathyroidism (Multi) Hyperprolactinemia (Multi) Type 2 diabetes mellitus without complication, with long-term current use of insulin (Multi) Expected: 05/07/2024 (Approximate), Expires: 05/07/2025 [facility] Work Phone: Comment on above: Expected: 05/07/2024 (Approximate), Expi res: 05/07/2025 Start: 05-07-2024 End: 05-07-2025 Microalbumin/Creatinin e [Mass Ratio] in Urine Albumin-Creatinine Ratio, Urine Random Lab Routine Hypopituitarism (Multi) Hypogonadism male Hyperparathyroidism (Multi) Hyperprolactinemia (Multi) Type 2 diabetes mellitus without complication, with long-term current use of insulin (Multi) Expected: 05/07/2024 (Approximate), Expires: 05/07/2025 [facility] Work Phone: Comment on above: Expected: 05/07/2024 (Approximate), Expi res: 05/07/2025 Start: 05-07-2024 End: 05-07-2025 MR Pituitary and Sella turcica WO and W contrast IV MR sella w and wo IV contrast Imaging Routine Hypopituitarism (Multi) Hypogonadism male Hyperparathyroidism (Multi) Hyperprolactinemia (Multi) Type 2 diabetes mellitus without complication, with long-term current use of insulin (Multi) Thyroid nodule Expected: 05/07/2024, Expires: 05/07/2025 [facility] Work Phone: Comment on above: Expected: 05/07/2024, Expires: Start: 05-07-2024 End: 05-07-2025 Parathyrin.intact [Mass/volume] in Serum or Plasma Parathyroid Hormone, Intact Lab Routine Hypopituitarism (Multi) Hypogonadism male Hyperparathyroidism (Multi) Hyperprolactinemia (Multi) Type 2 diabetes mellitus without complication, with long-term current use of insulin (Multi) Thyroid nodule Expected: 05/07/2024 (Approximate), Expires: 05/07/2025 [facility] Work Phone: Comment on above: Expected: 05/07/2024 (Approximate), Expi res: 05/07/2025 Start: 05-07-2024 End: 05-07-2025 Prolactin [Mass/volume] in Serum or Plasma Prolactin Lab Routine Hypopituitarism (Multi) Hypogonadism male Hyperparathyroidism (Multi) Hyperprolactinemia (Multi) Type 2 diabetes mellitus without complication, with long-term current use of insulin (Multi) Expected: 05/07/2024 (Approximate), Expires: 05/07/2025 [facility] Work Phone: Comment on above: Expected: 05/07/2024 (Approximate), Expi res: 05/07/2025 Start: 05-07-2024 End: 05-07-2025 Testosterone,Free and Total Testosterone,Free and Total Lab Routine Hypopituitarism (Multi) Hypogonadism male Hyperparathyroidism (Multi) Hyperprolactinemia (Multi) Type 2 diabetes mellitus without complication, with long-term current use of insulin (Multi) Expected: 05/07/2024 (Approximate), Expires: 05/07/2025 [facility] Work Phone: Comment on above: Expected: 05/07/2024 (Approximate), Expi res: 05/07/2025 Start: 05-07-2024 End: 05-07-2025 Thyroxine (T4) free [Mass/volume] in Serum or Plasma Thyroxine, Free Lab Routine Hypopituitarism (Multi) Hypogonadism male Hyperparathyroidism (Multi) Hyperprolactinemia (Multi) Type 2 diabetes mellitus without complication, with long-term current use of insulin (Multi) Expected: 05/07/2024 (Approximate), Expires: 05/07/2025 [facility] Work Phone: Comment on above: Expected: 05/07/2024 (Approximate), Expi res: 05/07/2025 Start: 04-14-2024 [facility] Start: 11-11-2023 Advance Directive Discussion Advance Directive Discussion [facility] Start: 07-12-2023 Covid-19 Vaccine () Covid-19 Vaccine () [facility] Start: 10-10-2022 AMY, Provider: Mandie Salamanca, Status: Pen, Time: 11:15 AM AMY, Provider: Mandie Salamanca, Status: Pen, Time: 11:15 AM [facility] Start: 07-12-2022 Influenza vaccination INFLUENZA (#1) [facility] Start: 04-24-2022 AMY, Provider: Ynes Sahni, Status: Pen, Time: 1:00 PM AMY, Provider: Ynes Sahni, Status: Pen, Time: 1:00 PM [facility] Work Phone: Start: 01-21-2022 Diabetes Screening Diabetes Screening [facility] Start: 11-11-2021 ADVANCE DIRECTIVE DISCUSSION ADVANCE DIRECTIVE DISCUSSION [facility] Start: 08-24-2021 Lipid panel Lipid Screening [facility] Start: 07-24-2019 Hemoglobin A1c/Hemoglobin.total in Blood HBA1C [facility] Start: 08-12-2018 Pneumococcal Vaccine: 65+ (2 of 2 - PCV) Pneumococcal Vaccine: 65+ (2 of 2 - PCV) [facility] Start: 08-12-2018 Pneumococcal Vaccine: 65+ Years (2 of 2 - PCV) Pneumococcal Vaccine: 65+ Years (2 of 2 - PCV) [facility] Start: 10-07-2017 Shingrix Vaccine (3 of 3) Shingrix Vaccine (3 of 3) [facility] Start: 08-24-2017 Hepatitis B screening URINE ALBUMIN:CREATININE RATIO [facility] Start: 08-24-2017 Hepatitis B surface antibody level LDL CHOLESTEROL [facility] Start: 08-14-2017 3 comp foot exam completed DIABETIC FOOT EXAM [facility] Start: 11-22-2016 Hepatitis C antibody, confirmatory test DILATED RETINAL EXAM [facility] Start: 2016 PNEUMOCOCCAL: 65+ (1 - PCV) PNEUMOCOCCAL: 65+ (1 - PCV) [facility] Start: 2011 RSV patients and/or patients aged 60+ years (1 - 1-dose 60+ series) RSV patients and/or patients aged 60+ years (1 - 1-dose 60+ series) [facility] Start: 2011 RSV Vaccine (1 - 1-dose 60+ series) RSV Vaccine (1 - 1-dose 60+ series) [facility] Start: 2001 SHINGRIX VACCINE (1 of 2) SHINGRIX VACCINE (1 of 2) [facility] Start: 2001 Zoster Vaccines (1 of 2) Zoster Vaccines (1 of 2) [facility] Start: 1996 COLOGUARD (FIT-DNA) COLOGUARD (FIT-DNA) [facility] Start: 1996 Colonoscopy COLONOSCOPY [facility] Start: 1996 COLORECTAL CANCER SCREENING COLORECTAL CANCER SCREENING [facility] Start: [address] COLONOGRAPHY [facility] Start: 1996 FECAL OCCULT BLOOD FECAL OCCULT BLOOD [facility] Start: 1996 Screening for malignant neoplasm of colon [facility] Start: 1996 SIGMOIDOSCOPY SIGMOIDOSCOPY [facility] Start: 1973 DTaP/Tdap/Td Vaccines (1 - Tdap) DTaP/Tdap/Td Vaccines (1 - Tdap) [facility] Start: 1970 Urine microalbumin profile [facility] Start: 1970 Urine screening for protein Diabetes: Urine Protein Screening [facility] Start: 1969 Anxiety Screening Anxiety Screening [facility] Start: 1969 Depression Screening Depression Screening [facility] Start: 1969 HEPATITIS C SCREENING HEPATITIS C SCREENING [facility] Start: 1969 Hepatitis C screening Hepatitis C Screening [facility] Start: 1963 Adult depression screening assessment DEPRESSION SCREENING [facility] Start: 1961 Diabetic foot examination Diabetes: Foot Exam [facility] Start: 1961 Glaucoma screening Diabetes: Retinopathy Screening [facility] Start: 1957 Pneumococcal Vaccine: 65+ Years (1 of 2 - PCV) Pneumococcal Vaccine: 65+ Years (1 of 2 - PCV) [facility] Start: 02-08-1952 COVID-19 VACCINE (#1) COVID-19 VACCINE (#1) [facility] Start: 1951 ABDOMINAL AORTIC ANEURYSM SCREENING ABDOMINAL AORTIC ANEURYSM SCREENING [facility] Start: 1951 Abdominal aortic aneurysm screening Abdominal Aortic Aneurysm Screening [facility] Start: 1951 Hemoglobin A1c measurement Diabetes: Hemoglobin A1C [facility] Start: 1951 Lipid panel Lipid Panel [facility] Start: 1951 Medicare Annual Wellness Visit Medicare Annual Wellness Visit (AWV) [facility] Start: 1951 Screening for malignant neoplasm of colon [facility] Start: 1951 Thyroid stimulating hormone measurement TSH Level [facility] Patient Education Colon polyps D iverticulosis (DC) [facility] Work Phone: US Thyroid gland US thyroid Imag ing Routine Hypopituitarism (Multi) Hypogonadism male Hyperparathyroidism (Multi) Hyperprolactinemia (Multi) Type 2 diabetes mellitus without complication, with long-term current use of insulin (Multi) Thyroid nodule Ordered: 05/07/2024 [facility] Work Phone: Comment on above: Ordered: 05/07/2024 XR Abdomen Single view [facility] Immunizations Immunization Date Immunization Notes Care Provider Fa cility 10-12-2023 influenza virus vacc ine, unspecified formulation Henrry Johnson MD Work Phone: [facility] 08-15-2022 Fluzone High-Dose Quadrivalent 0.7 ML Intramuscular Suspension Prefilled Syringe [facility] Work Phone: QM-Egoonkiclvmql-OC [address] Work Phone: 09-06-2021 Fluad Quadrivalent 0 .5 ML Intramuscular Prefilled Syringe [facility] Work Phone: WV-Fzaykqdplfveu-IX [address] Work Phone: 01-18-2021 Neva COVID-19 Vac cine 0.5 ML Intramuscular Suspension [facility] Work Phone: PR-Ztyozmojdvjao-SU [address] Work Phone: 09-08-2020 Fluad Quadrivalent 0 .5 ML Intramuscular Prefilled Syringe [facility] Work Phone: MY-Ymlyuuobavthz-GL [facility] [address] Work Phone: 08-24-2020 influenza, seasonal, injectable [facility] Work Phone: YY-Zsqzshdrydeer-MD [address] Work Phone: 08-24-2019 Seasonal trivalent influenza vaccine, adjuvanted, preservative free [facility] Work Phone: MK-Fuigfswfxpxvm-EE [facility] [address] Work Phone: 08-04-2018 influenza, injectabl e, quadrivalent, preservative free [facility] Work Phone: CE-Hwwqjrcvguqzt-LQ [address] Work Phone: 08-04-2018 influenza virus vacc ine, unspecified formulation Rickey Salamanca MD Work Phone: [facility] 07-19-2018 influenza, high dose seasonal, preservative-free [facility] Work Phone: TZ-Ggzcdxthewcyj-EL [address] Work Phone: 08-21-2017 influenza, high dose seasonal, preservative-free [facility] Work Phone: YY-Jjevxyjfdoqzz-OD [facility] [address] Work Phone: 08-12-2017 pneumococcal polysaccharide vaccine, 23 valent [facility] Work Phone: LA-Qilhgjtwkiyzv-NK [address] Work Phone: 08-12-2017 zoster vaccine recombinant [facility] Work Phone: JJ-Frvsvmusefimo-HS [address] Work Phone: 08-21-2016 influenza, high dose seasonal, preservative-free [facility] Work Phone: ZR-Nfdxhmcirapil-TQ [address] Work Phone: 2015 influenza, seasonal, injectable, preservative free [facility] Work Phone: EW-Zxrswenouegvm-QL [facility] [address] Work Phone: 08-04-2014 influenza, seasonal, injectable [facility] Work Phone: UO-Aospjdbcjzvat-VA [address] Work Phone: 08-04-2014 pneumococcal polysaccharide vaccine, 23 valent [facility] Work Phone: RO-Ycanynhgpzkdn-WD [facility] [address] Work Phone: 08-04-2014 zoster vaccine, live [facility] Work Phone: TP-Qfbtpwvdaytks-MZ [address] Work Phone: Payers Date Payer Category Payer Self-pay [id number] 2018 Medicare [id number] 2013 Unknown 1959 Self-pay [id number] 1959 Unknown [id number] 1950 Unknown [id number] 2.16. [id number] 1951 Unknown [id number] 2.16. [id number] 1950 Unknown [id number] 2.16.84 [id number] 1951 Unknown [id number] 2.16.84 [id number] 1951 Unknown [id number] 2.16.84 [id number] 1951 Unknown [id number] 2.16.84 [id number] 1951 Unknown [id number] 2.16.84 [id number] 1951 Unknown [id number] 2.16.84 [id number] 1951 Unknown [id number] 2.16.84 [id number] 1951 Unknown [id number] 2.16.84 [id number] 1951 Unknown [id number] 2.16.84 [id number] Unknown [id number] 2.16.84 [id number] Unknown [facility] [id number] Unknown [id number] 2.16.8 [id number] Social History Date Type Detail Facility Start: 01-21-2019 End: 07-09-2024 Former smoker Former smoker HX-Oysdkyaptijto-XZI [facility] Work Phone: Start: 06-30-2013 End: 07-09-2024 Tobacco smoking status OHIS Ex-smoker [facility] Start: 11-11-1966 End: 12-12-1992 History of tobacco use Current smoker [facility] Start: 11-11-1966 End: 12-12-1992 History of tobacco use Cigarette Smoker [facility] Start: 06-30-2013 End: 07-09-2024 Tobacco use and exposure Smokeless tobacco non-user [facility] Start: 01-21-2019 Alcohol intake Current non-dr psychology intern of alcohol (finding) [facility] Start: 1950 Sex Assigned At Not on file [facility] Start: 01-21-2019 End: 07-09-2024 Sex Assigned At [facility] [employer] Other Start: 1950 Sex Assigned At Male F [facility] National Score (1-100), lower number is lower risk Not on file [facility] Tobacco smoking status NHIS Tobacco smoking consumption unknown [facility] Work Phone: Start: 07-09-2024 End: 07-14-2024 Alcoholic beverage intake Lifetime non-drinker (finding) [facility] Medical Equipment Procedure Code Equipment Code Equipment Original Text Equipment Identifier Dates [id number], [id number], [id number] Start: 09-15-2018 Comment on above: Use as [...] Date & Type Note Facility 09-16-2024 Note [place] [facility] - [facility] Subjective Gadiel Smith is [...] in the mor (more content not included)... [facility] 07-14-2024 History of Present illness Narrative Subjective Patient ID: Alexis Smith is a 73 y.o. male who presents for Thyroid Nodule (Ultrasound 06/09/24. ) Pt has a long h/o thyroid nodules and a remote h/o parathyroidectomy. H/O prolactinoma tx medically. 05/3024 thyroid US shows a [id number] RT TR5 nodule. 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 Review of Systems All other systems reviewed and are negative. Family History Problem Relation Name Age of Onset Diabetes type II Mother Active Ambulatory Problems Diagnosis Date Noted Alzheimer's disease with late onset ([facility]) 06/27/2024 Dementia in other diseases classified elsewhere, unspecified severity, without behavioral disturbance, psychotic disturbance, mood disturbance, and anxiety ([facility]) 06/27/2024 History of ischemic stroke 06/27/2024 Personality change 06/27/2024 Pituitary mass ([facility]/HCC) 06/27/2024 Depression ([facility]/HCC) 06/27/2024 Memory impairment 06/27/2024 Abnormal stress test 04/28/2015 Acquired hypothyroidism ([facility]/HCC) 07/09/2024 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 Atrial flutter ([facility]/HCC) 11/28/2022 Carotid stenosis, bilateral 04/01/2024 Chronic [...] (CMS/HCC) 12/24/2019 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CMS/HCC) 11/16/2009 Pure hypercholesterolemia ([facility]) 07/09/2024 Thyroid nodule ([facility]) 11/16/2009 Type 2 diabetes mellitus with hyperglycemia ([facility]) 07/09/2024 Resolved Ambulatory Problems Diagnosis Date Noted Diarrhea 07/09/2024 Dietary counseling and surveillance 07/09/2024 Rotator cuff strain 06/16/2013 S/P ablation of atrial fibrillation 05/02/2023 Past Medical History: Diagnosis Date Afib ([facility]) CHF (congestive heart failure) ([facility]) Diabetes mellitus type II, controlled ([facility]) GERD (gastroesophageal reflux disease) Hypercholesterolemia ([facility]) Hypogonadism in male Hypothyroid ([facility]) Stroke ([facility]) 2016 Past Surgical History: Procedure Laterality Date [...] sig growth found documented in this encounter [facility] 06-18-2024 Telephone encounter Note Summary: Sav Received a mail from Sav with a notice on the Authorization for MRI, Brain, W/O Contrast Dated: 06/04/24 Status: Approve Service Requested: MRI, Brain, W/O Contrast Effective Dates: 06/04/2024 - 09/01/2024 Reference #: [id number] Uploaded into scan docs. Please allow time for upload. [facility] 06-18-2024 Miscellaneous Notes Summary: Sav Received a mail from Sav with a notice on the Authorization for MRI, Brain, W/O Contrast Dated: 06/04/24 Status: Approve Service Requested: MRI, Brain, W/O Contrast Effective Dates: 06/04/2024 - 09/01/2024 Reference #: [id number] Uploaded into scan docs. Please allow time for upload. documented in this encounter [facility] 05-07-2024 History of Present illness Narrative [...] history of stroke -Up to date with [facility] follow up yearly he did this [...] which included preparing to see the patient, jpox-jy-kqnj patient care, completing clinical documentation, obtaining and [...] Mandie Salamanca MD documented in this encounter [facility] Work Phone: 04-14-2024 Procedure note [facility] 04-01-2024 Note In light pt LDL 98.8 with noted moderate carotid stenosis and DM will increase statin- he states lipitor 40 mg in past caused myalgias therefore will switch to crestor 40 mg daily, repeat Carotid US to assess stenosis and LFT with lipid level in 3 months- he voiced agreement and understanding to call office for any myalgias or concerns [facility] 04-01-2024 Note [id number]= 6 Continue eliquis anticoagulation. Continue coreg- rate is well controlled and pt remains in Sinus rhythm RTC [address] Espinoza [facility] 04-01-2024 Note Congestive heart martha lure due to NICM Heart failure is stable . NYHA Class II. Continue current treatment regimen. Dietary sodium restriction. Encouraged daily monitoring of the patient's weight. Regular aerobic exercise. Continue current medications. Refer to Cardiology. Heart failure will be reassessed in 6 months. Currently euvolemic without exacerbation [facility] 04-01-2024 Note Remains is sinus rhy thm on ECG today [facility] 04-01-2024 Note Diabetes is uncontro lled A1C 9.6 in December- states that he eats doughnuts most mornings, and that his diet could be better F/U with PCP [facility] 04-01-2024 Note [facility] C[facility] PROGR [...] ever has symptoms of palpitations, racing heart, MNANING, LE edema could be indicative of him [...] on 10/15 and he went to the [facility] emergency department was found to be in [...] moist. Eyes: E (more content not included)... [facility] 10-29-2023 Evaluation note Encounter Date [...] improved w present med increase in dose. [facility] Other 11-03-2023 Evaluation note* Encounter Date Diagnosis Assessment Notes Treatment Notes Treatment Clinical Notes Sep, Anxiety (ICD-10 - F41.9) [facility] Other 10-31-2023 Evaluation note* Encounter Date Diagnosis Assessment Notes Treatment Notes Treatment Clinical Notes Aug, Anxiety (ICD-10 - F41.9) [facility] Other 10-09-2023 Evaluation note* Encounter Date Diagnosis [...] from 25mg to 50mg for better results. [facility] Other 11-30-2022 Chief complaint Narrative - Reported* [...] Patient presents for a follow up visit. FV-Wshuuidjlxief-YCU [address] Work Phone: [phone] Miscellaneous Notes* Telephone Encounter - Janee Hughes - 07/02/2022 2:37 PM EDT Received Thyroid US report from [facility]. Indexed into chart. [facility] Chief complaint Narrative - Reported* An [...] follow-up for hypothyroidism, pituitary, and diabetes today. [facility] [address] Work Phone: Evaluation noteNo [employer] Other Evaluation note* Diagnosis Onset Date Resolution Status Bronchitis noneactive Constipation acute Incontinence of feces with fecal urgency acute [facility] Work Phone: Evaluation note* Diagnosis Hypopituitarism (Multi)- Primary Panhypopituitarism Hypogonadism male Other testicular hypofunction Hyperparathyroidism (Multi) Hyperparathyroidism, unspecified Hyperprolactinemia (Multi) Other and unspecified anterior pituitary hyperfunction Type 2 diabetes mellitus without complication, with long-term current use of insulin (Multi) Thyroid nodule Nontoxic uninodular goiter documented in this encounter [facility] Work Phone: Evaluation note* Diagnosis Thyroid nodule (CMS/HCC)- Primary Nontoxic uninodular goiter documented in this encounter [facility] Author Merly Paul [facility] April 14, 2024 11:26am Note Date/Time April 14, 2024 11:26 am [facility] [address] [place] [address] Gastroenterology H&P Signed Patient: Gadiel Smith MR#: [id number] : 1950 Acct:[id number] Age/Sex: 73 / M Adm Date: 4 Loc: Room: Type: [facility] Attending Dr: Merly Paul DO [...] 04/14/24 1125 Signed By: <Electronically signed by Mrely Paul DO> 04/14/24 1126 [facility] Work Phone: Hiszodp general Narrative - Reported* Type Description Date Medical History Diabetes mellitus Medical History Hyperlipemia Medical History Acid reflux Medical History Hiatal hernia Medical History Pituitary tumor Surgical History knee surgery Surgical History shoulder surgery Surgical History thyroid nodule removed Hospitalization History hematoma related to fall 2011 Hospitalization History TIA 03/2020 Hospitalization History DEHYDRATION 09/2020 [facility] Other History of Present illness Narrative* This [...] * -Most recent US on 12/2019 in [place], records not available * -Due for US [...] on file * Occupational History * Occupation: [employer] * Employer: [employer] * Comment: retired * Tobacco [...] * Social History Narrative * 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 QK-Alhdvhexacugs-YLH [address] Work Phone: Summary Purpose Family [...] and [place] [id number] [facility] Department [place] [address] Referral ID Status Reason Start Date Expiration Date Visits Requested Visits Authorized [id number] Pending Review Perform Procedure 05/07/2024 05/07/2025 1 1 Specialty Diagnoses / Procedures Referred By Saeid vences Referred To Contact Radiology Diagnoses Hypopituitarism (Multi) Hypogonadism male Hyperparathyroidism (Multi) Hyperprolactinemia (Multi) Type 2 diabetes mellitus without complication, with long-term current use of insulin (Multi) Thyroid nodule [place] [id number] [address] Department [place] [address] Referral ID Status Reason Start Date Expiration Date Visits Requested Visits Authorized [id number] Authorized Perform Procedure 05/07/2024 05/07/2025 1 1 Additional Source Comments (unrecognized sect ion and content) No Status Records FoundNo Status Records FoundNo Status Records FoundNo Status Records FoundNo Status Records FoundNo Status Records FoundNo Status Records FoundNo Status Records Found INFORMATION SOURCE (unrecogn ized section and content) DATE CREATED AUTHOR 05/07/2018 [facility] DATE CREATED AUTHOR AUTHOR'S ORGANIZ ATION 10/11/2022 [facility] DATE CREATED AUTHOR AUTHOR'S ORGANIZ ATION 10/11/2022 [employer] DATE CREATED AUTHOR AUTHOR'S ORGANIZ ATION 03/04/2023 [facility] DATE CREATED AUTHOR AUTHOR'S ORGANIZ ATION 04/22/2024 [facility] DATE CREATED AUTHOR AUTHOR'S ORGANIZ ATION 06/21/2024 [facility] DATE CREATED AUTHOR AUTHOR'S ORGANIZ ATION 07/15/2024 [facility] DATE CREATED AUTHOR AUTHOR'S ORGANIZ ATION 09/18/2024 [facility] Source Comments (unrecognize d section and content) In the event this informatio n is protected by the Federal Confidentiality of Alcohol and Drug Abuse Patient Records regulations: The Federal rules restrict any use of the information to criminally investigate or prosecute any alcohol or drug abuse patient.[facility] the event this information is protected by the Federal Confidentiality of Alcohol and Drug Abuse Patient Records regulations: The Federal rules restrict any use of the information to criminally investigate or prosecute any alcohol or drug abuse patient.[facility] Reason for Visit (unrecogniz ed section and content) Reason Comments Received Outside Medical Records Receive d Thyroid US report from [facility]. Indexed into chart. Reason Comments Insurance Authorization [place] Reason Comments Follow-up Pituitary Problem Reason Comments Thyroid Nodule Ultrasound 06/09/24. Care Teams (unrecognized sec tion and content) Social Insurance Specialist Relationship Specialty Start Date End Date Cabrera [...] Other Provider Active Start: April 14, 2024 Social Insurance Specialist Relationship Specialty Start Date End Date Cabrera Dupont MD PCP - General Family Medicine 01/21/19 Social Insurance Specialist Relationship Specialty Start Date End Date Cabrera Dupnot MD [address] [place] [address] PCP - General 11/30/20 Social Insurance Specialist Relationship Specialty Start Date End Date Joseluis Quiroz MD [address] [facility] [place] [address] PCP - [facility] Medicine 03/23/24 Social Insurance Specialist Relationship Specialty Start Date End Date Joseluis Quiroz MD [address] [facility] [place] [address] PCP - General Family Medicine 03/23/24 [...] BE BASED ON THE PRIMARY CLINICAL RECORDS. [facility] [employer] provides no warranty or guarantee of the accuracy or completeness of information in this document.
[2024-12-11 12:21] LABS: Creatinine Urine Random 58.29 mg/dL (20.00-300.00); Microalbum Creatinine Ratio Ur 90.9 mg/g (0.0-29.9); Microalbumin Urine Random 5.3 mg/dL (<=30.0)
== END 2024-12-11 12:00 | disposition home or self-care (01) ==
LOC: LAB 11:59
PROVIDERS: PCP Family Medicine; Visit Provider Family Medicine
DX: E03.9 Hypothyroidism, unspecified (principal); E11.65 Type 2 diabetes mellitus with hyperglycemia
CPT/HCPCS: 82043; 82570

== ENCOUNTER 2024-12-23 12:17 | Outpatient (OUT) | payer MEDICARE, SELFPAY ==
--- NOTE | 2024-12-23 12:19 | US_ITS ---
[address] [address] Patient Name: SANTA SMITH MRN: [id number] date: 1950 Sex: M Assigned Patient Location: US Current Patient Location: US Accession/Order Number: [id number] Exam Date: 12/23/2024 12:20 Report Date: 12/23/2024 13:12 At the request of: HENRRY JOHNSON Procedure: US thyroid EXAMINATION: US thyroid HISTORY: Thyroid Nodule COMPARISON: 06/09/2024 TECHNIQUE: Sonographic images of the thyroid gland were obtained. FINDINGS: The right thyroid lobe measures 3.8 x 1.7 x 1.1 cm. 6 mm TR 4 nodule. The thyroid isthmus measures 5 mm, thickened. No focal nodule The left thyroid lobe measures 3.7 x 1.6 x 1.5 cm. Single 9 mm TR 4 nodule US/US thyroid IMPRESSION: Bilateral subcentimeter TR 4 nodules TI-RADS: The [employer] TI-RADS committee's white paper recommendations for thyroid lesions classified as TR4 (moderately suspicious) are listed below: > 1.0 cm. Follow-up ultrasound in 1, 2, 3, and 5 years. > 1.5 cm. FNA. J. Am Dionicio Radiol 2017;14:587-595. Electronically authenticated by: GEORGIE DAVIES Date: 12/23/2024 13:12
--- OUTSIDE RECORDS SUMMARY | 2024-12-23 12:37 | XMS_ITS | CCD ---
Author Organization [facility] CliniSyaz Care Team Providers Care Humidifier Maintenance Worker Name Role Phone PHYSICIAN, DEFAULT Unavailable Unavailable [...] Primary Care Unavailable TONA ESPINOZA Attending Unavailable SHAKRIATONA Consulting Unavailable MAUREENJANEE Consulting Unavailable MAUREEN, JANEE [...] Care Provider DO Merly Paul Attending Provider Joseluis Quiroz Primary Care Unavailable Merly Paul Admitting Unavailable Merly Paul Attending Unavailable Cabrera Dupont MD Primary Care Provider [phone] RAPHAEL SPRINGER Attending Unavailable HENRRY JOHNSON Attending Unavailable JOSELUIS QUIROZ Referring Unavailable MILAN PEÑA Attending Unavailable JANEE REDDY Attending Unavailable Cabrera Dupont MD Primary Care Provider [phone] Joseluis Quiroz MD Primary Care Provider [phone] Allergies Allergy Classification Reported Allergen(s) Allergy Type Date of Onset Reaction(s) Facility (2 sources) Lisinopril Drug Allergy 5 Other: See Comments [facility] Work Phone: (1 source) Lisinopril Propensity to adverse reactions 5 [facility] Work Phone: Medications Current Medications Medication Drug Class(es) Dates Sig (Normalized) Sig (Original) [id number] 200 actuat albuterol 0.09 mg/actuat metered dose [...] other day for 0 *Pick strength-form from [employer] for eRX* Jul, Active Ocuvite TABS WYATT [...] Oral Once a day *Pick strength-form from [employer] for eRX* Jul, Active Start: 07-23-2022 take 1 tablet by woody th twice daily buPROPion HCl ER (XL) 150MG buPROPion HCl ER (XL) 150MG, 1 (one) Tablet Tablet two times daily # 180, 07/23/2022, Ref. x1. Active Oral two times daily for 0 *Pick strength-form from [employer] for eRX* Jul, Active Start: 04-13-2020 take [...] as directed for 30 *Pick strength-form from [employer] for eRX* Jul, Active take 1 tablet by woody th once daily as needed Sildenafil Citrate 50 MG 1 tablet as needed Orally daily as directed for 30 days *Pick strength-form from [employer] for eRX* Active spironolactone 25 mg oral [...] Entry Transdermal daily for 0 *Reorder from [employer] for eRx and Interaction Alerts* Jul, Active [...] sources) Long-term current use of insulin; Translations: [USP (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 insulin] Episodic Other and [...] 11-13-2022 Episodic Other aftercare (1 source) Other exterminator (current) drug therapy; Translations: [OTH MCFP CURRENT DRUG THERAPY] Onset: 11-13-2022 Episodic Other aftercare (1 source) USP (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 oral hypoglycemic drugs; Translations: [ART EDUCATOR USE ORAL HYPOGLYCEMIC DX] Onset: 11-13-2022 Episodic Other aftercare (1 source) intermodal customer service (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 insulin; Translations: [MCFP CURRENT USE OF INSULIN] Onset: 11-13-2022 Episodic Other aftercare (1 source) USP (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 aspirin; Translations: [MCFP CURRENT [...] Range Facility Office Visiton 09-16-2024 Follow-up visit [id number] Gadiel Smith 1950 M Date Provider Department Center 09/16/2024 [id number] PEÑA [facility] Family History Problem Relation Age of [...] Paternal Grandmother Paternal Grandfather Other Level of Service:[address] [place] OFFICE/OUTPATIENT ESTABLISHED MOD MDM 30 MIN Reason for Visit and Comments: Atrial Fibrillation [80] - S/p afib ablation vasovagal syncope [Other] Transient Ischemic Attack [284358] - X2 Carotid stenosis, bilateral [Other] Hyperlipidemia [182] - HAD LABS 09/15/24 Chronic systolic congestive heart failure [Other] - Congestive heart failure due to NICM Heart failure is stable . NYHA Class II [facility] CNPMirta 06-18-2024 CNPN Telephone (PULMMN) GADIEL SMITH ([id number]) 1950 M Date Time Provider Department 06/18/24 RICKEY SALAMANCA PULROCKY During your visit today, we recorded the following information about you: Greg River 06/18/2024 4:24 PM Signed Received a mail from Sav with a notice on the Authorization for MRI, Brain, W/O Contrast Dated: 06/04/24 Status: Approve Service Requested: MRI, Brain, W/O Contrast Effective Dates: 06/04/2024 - 09/01/2024 Reference #: [id number] Uploaded into scan docs. Please allow time [...] LANCETS) lancets Use as instructed - Insulin Shannon, Disposable, (BD ULTRAFINE III MINI PEN) 31 [...] Status:Closed by GREG RIVER on 06/18/24 Normal [facility] 36on 04-21-2024 36 Regarding lab result s from 04/16/2024: YUN Gustafson MA Let him know liver function is perfect and cholesterol levels also are great- continue all meds and see you next time. Good job!! Spoke with patient's and made her aware. [facility] Capillary blood glucose corey urement by glucometer (mass/volume)Ordered By: Merly Paul on 04-14-2024 Glucose [Mass/Vol] 73 mg/dL Normal [facility] Comment on above: Random Glucose Refer ence Range is dependent on time and content of last meal. Glucose of more than 200 mg/dL in a nonstressed, ambulatory subject supports the diagnosis of Diabetes Mellitus. Result Comment: [place] om Glucose Reference Range is dependent on time and content of last meal. Glucose of more than 200 mg/dL in a nonstressed, ambulatory subject supports the diagnosis of Diabetes Mellitus. PERFORMED BY: [place] [address] [place] [address] PATHOLOGIST AUTOMOTIVE MANUFACTURER ANJANA SEWELL M.D. Performed By: #### G LULS #### Point of Care testing , Harlan 04-14-2024 L Specimen: [id number] Received: 04/14/24 Status: MAYO Shi Num: [id number] Spec Type: Surgical Subm Dr: Merly Paul DO Tissues: A Colon Biopsy (CECAL POLYP) B Colon Biopsy (ASC POLYPS) C Colon Biopsy (TRANSV POLYP) D Colon Biopsy (DESC POLYP) Procedures: HE/8, Gross/Micro L4/4 Age/ Patient Sex Location Account Attending Physician Gadiel Smith 73/M [id number] Merly Paul DO SPEC NUM: [id number] RECD: 04/14/24 STATUS: MAYO SIH NUM: [id number] DIONICIO: 04/14/24- SUBM DR: Merly Paul DO ENTERED: 04/14/[address] [facility] [address]: Joseluis Quiroz MD SPEC TYPE: [...] adenoma Clinical Information Diarrhea, constipation ---- Specimen: [id number] Received: 04/14/24 Status: MAYO Shi Num: [id number] Spec Type: Surgical Subm Dr: Merly Paul, DO Tissues: A Colon Biopsy (CECAL POLYP) B Colon Biopsy (ASC POLYPS) C Colon Biopsy (TRANSV POLYP) D Colon Biopsy (DESC POLYP) Procedures: LILI/Claribel, Rivas/Micro L4/4 ---- Patient: Gadiel Smith [id number] (Continued) ---- Specimen: [id number] Received: 04/14/24 (Continued) Signed (signature on file) Suki Jackson MD 04/16/24 4980 ---- Specimen: [id number] Received: 04/14/24 Status: MAYO Shi Num: [id number] Spec Type: Surgical Subm Dr: Merly Paul, DO Tissues: A Colon Biopsy (CECAL POLYP) B Colon Biopsy (ASC POLYPS) C Colon Biopsy (TRANSV POLYP) D Colon Biopsy (DESC POLYP) Procedures: HE/8, Gross/Micro L4/4 ---- Patient: Gadiel Smith [id number] (Continued) ---- Specimen: [id number] Received: 04/14/24 (Continued) Gross Description Received are [...] entirely submitted in D1. TW CPT Codes 45312Z8 ---- ---- Specimen: [id number] Received: 04/14/24 Status: MAYO Shi Num: [id number] Spec Type: Surgical Subm Dr: Merly Paul DO Tissues: A Colon Biopsy (CECAL POLYP) B Colon Biopsy (ASC POLYPS) C Colon Biopsy (TRANSV POLYP) D Colon Biopsy (DESC POLYP) Procedures: LILI/Rivas Sanford/Andrew L4/4 ---- Patient: Gadiel Smith [id number] (Continued) ---- Signed (signature on file) Bulmaro-Kalia Jackson MD 04/16/24 1330 Normal [facility] Office Visiton 04-01-2024 Follow-up visit [id number] Gadiel Smith 1950 M Date Provider Department Center 04/01/2024 Jo-Ann-MAUREEN JANEE CARD [facility] Family History Problem Relation Age of [...] Paternal Grandmother Paternal Grandfather Other Level of Service:[address] [place] OFFICE/OUTPATIENT ESTABLISHED MOD MDM 30 MIN Reason for Visit and Comments: Follow-up [525745] - 7 month follow up [facility] ECHOCARDIO M/2D COMPLETEon 0 02-28-2023 ECHOCARDIO M/2D COMPLETE Patient: GADIEL SMITH Exam Date: 02/28/2023 : 1950 Gender:M Ordering : TONA ESPINOZA Admission #: [id number] Family : DR JOSELUIS QUIROZ M.D. Order #: [id number] CLICK HERE TO VIEW EXAM ECHOCARDIOGRAM REPORT [...] Left Atrium LA Volume Index (2D A2C): 17962 mm3 Left Atrium Systolic Dimension: 4.90 cm [...] Patten M.D. on 02/28/2023 at 20:13 Normal [facility] PROF 14(COMP METB)on 023 Albumin [Mass/Vol] 3.7 g/dL Normal 3.4-5.0 [facility] Comment on above: Performed By: #### C MP #### [facility] [address] [place] [address] Dr. Esme Jackson Albumin/Globulin [Mass ratio] 1.1 {ratio} Normal [facility] Comment on above: Performed By: #### C MP #### [facility] [address] [place] [address] Dr. Esme Jackson ALP [Catalytic activity/Vol] 65 U/L Normal 46-116 [facility] Comment on above: Performed By: #### C MP #### [facility] [address] [address] [address] Esme Jackson ALT [Catalytic activity/Vol] 26 U/L Normal 16-63 [facility] Comment on above: Performed By: #### C MP #### [facility] [address] [address] [address] Esme Jackson Anion gap [Moles/Vol] 10.8 mmol/L Normal [facility] Comment on above: Performed By: #### C MP #### [facility] [address] [address] [address] Esme Jackson AST [Catalytic activity/Vol] 16 U/L Normal 15-37 [facility] Comment on above: Performed By: #### C MP #### [facility] [address] [place] [address] Dr. Esme Jackson Bilirubin [Mass/Vol] 1.1 mg/dL Critically high 0.2-1.0 [facility] Comment on above: Performed By: #### C MP #### [facility] [address] [address] [address] Esme Jackson Calcium [Mass/Vol] 9.4 mg/dL Normal 8.5-10.1 [facility] Comment on above: Performed By: #### C MP #### [facility] [address] [address] [address] Esme Jackson Chloride [Moles/Vol] 103 mmol/L Normal 98-107 [facility] Comment on above: Performed By: #### C MP #### [facility] [address] [place] [address] Dr. Esme Jackson CO2 [Moles/Vol] 28.5 mmol/L Normal 21.0-32.0 [facility] Comment on above: Performed By: #### C MP #### [facility] [address] [place] [address] Dr. Esme Jackson Creatinine [Mass/Vol] 1.07 mg/dL Normal 0.70-1.30 [facility] Comment on above: Performed By: #### C MP #### [facility] [address] [place] [address] Dr. Esme Jackson EGFR-AF ROMANIAN >60 Normal >=60 [facility] Comment on above: Performed By: #### C MP #### [facility] [address] [place] [address] Dr. Esme Jackson EGFR-NON AF ROMANIAN >60 Normal >=60 [facility] Comment on above: Performed By: #### C MP #### [facility] [address] [address] [address] Esme Jackson Globulin (S) [Mass/Vol] 3.5 g/dL Normal [facility] Comment on above: Performed By: #### C MP #### [facility] [address] [place] [address] Dr. Esme Jackson Glucose [Mass/Vol] 190 mg/dL Critically high 74-106 [facility] Comment on above: Performed By: #### C MP #### [facility] [address] [address] [address] Esme Jackson Potassium [Moles/Vol] 5.3 mmol/L Critically high 3.5-5.1 [facility] Comment on above: Performed By: #### C MP #### [facility] [address] [place] [address] Dr. Esme Jackson Protein [Mass/Vol] 7.2 g/dL Normal 6.4-8.2 [facility] Comment on above: Performed By: #### C MP #### [facility] [address] [place] [address] Dr. Esme Jackson Sodium [Moles/Vol] 137 mmol/L Normal 136-145 [facility] Comment on above: Performed By: #### C MP #### [facility] [address] [place] [address] Dr. Esme Jackson Urea nitrogen [Mass/Vol] 14.0 mg/dL Normal 7.0-18.0 [facility] Comment on above: Performed By: #### C MP #### [facility] [address] [place] [address] Dr. Esme Jackson Urea nitrogen/Creatinine [Mass ratio] 13.1 mg/mg Normal [facility] Comment on above: Performed By: #### C MP #### [facility] [address] [place] [address] Dr. Esme Jackson BNPon 11-10-2022 Natriuretic peptide B (Bld) [Mass/Vol] 6259.0 pg/mL Critically high <=900.0 [facility] Comment on above: Performed By: #### B QUILLER TENDER, BMP, HSTROPN #### [facility] [address] [place] [address] Dr. Esme Jackson CBC AUTO DIFFon 11-10-2022 BASO # 0.0 103/ul Normal 0.0-0.1 [facility] Comment on above: Performed By: #### C BC #### [facility] [address] [place] [address] Dr. Esme Jackson Basophils/100 WBC (Bld) 0.5 % Normal 0.2-2.0 [facility] Comment on above: Performed By: #### C BC #### [facility] [address] [place] [address] Dr. Esme Jackson EO # 0.3 103/ul Normal 0.0-0.7 [facility] Comment on above: Performed By: #### C BC #### [facility] [address] [place] [address] Dr. Esme Jackson Eosinophils/100 WBC (Bld) 3.6 % Normal 0.9-7.0 [facility] Comment on above: Performed By: #### C BC #### [facility] [address] [place] [address] Dr. Esme Jackson Erythrocyte distribution width (RBC) [Ratio] 14.8 % Normal 11.0-15.0 [facility] Comment on above: Performed By: #### C BC #### [facility] [address] [place] [address] Dr. Esme Jackson Hematocrit (Bld) [Volume fraction] 36.9 % Critically low 42.0-54.0 [facility] Comment on above: Performed By: #### C BC #### [facility] [address] [place] [address] Dr. Esme Jackson Hemoglobin (Bld) [Mass/Vol] 12.0 g/dL Critically low 14.0-18.0 [facility] Comment on above: Performed By: #### C BC #### [facility] [address] [place] [address] Dr. Esme Jackson IG # 0.04 10e3/ul Critically high 0.00-0.03 [facility] Comment on above: Performed By: #### C BC #### [facility] [address] [place] [address] Dr. Esme Jackson IG % 0.5 % Normal 0.0-0.5 [facility] Comment on above: Performed By: #### C BC #### [facility] [address] [place] [address] Dr. Esme Jackson LYMPH # 1.3 103/ul Normal 1.2-3.8 [facility] Comment on above: Performed By: #### C BC #### [facility] [address] [place] [address] Dr. Esme Jackson Lymphocytes/100 WBC (Bld) 18.2 % Critically low 20.5-60.0 [facility] Comment on above: Performed By: #### C BC #### [facility] [address] [place] [address] Dr. Esme Jackson MANUAL DIFF REQ NO Normal [facility] Comment on above: Performed By: #### C BC #### [facility] [address] [place] [address] Dr. Esme Jackson MCH (RBC) [Entitic mass] 28.0 pg Normal 25.9-34.0 [facility] Comment on above: Performed By: #### C BC #### [facility] [address] [place] [address] Dr. Esme Jackson MCHC (RBC) [Mass/Vol] 32.5 g/dL Normal 29.9-35.2 [facility] Comment on above: Performed By: #### C BC #### [facility] [address] [place] [address] Dr. Esme Jackson MCV (RBC) [Entitic vol] 86.0 fL Normal 80.0-94.0 [facility] Comment on above: Performed By: #### C BC #### [facility] [address] [place] [address] Dr. Esme Jackson MONO # 0.5 103/ul Normal 0.3-0.8 [facility] Comment on above: Performed By: #### C BC #### [facility] [address] [place] [address] Dr. Esme Jackson Monocytes/100 WBC (Bld) 7.3 % Normal 1.7-12.0 [facility] Comment on above: Performed By: #### C BC #### [facility] [address] [place] [address] Dr. Esme Jackson NEUT # 5.1 103/ul Normal 1.4-6.5 [facility] Comment on above: Performed By: #### C BC #### [facility] [address] [place] [address] Dr. Esme Jackson Neutrophils/100 WBC (Bld) 69.9 % Normal 43.0-75.0 [facility] Comment on above: Performed By: #### C BC #### [facility] [address] [place] [address] Dr. Esme Jackson Platelet mean volume (Bld) [Entitic vol] 10.3 fL Normal 9.5-13.5 [facility] Comment on above: Performed By: #### C BC #### [facility] [address] [place] [address] Dr. Esme Jackson PLT 220 103/ul Normal 150-450 [facility] Comment on above: Performed By: #### C BC #### [facility] [address] [place] [address] Dr. Esme Jackson RBC 4.29 106/ul Critically low 4.70-6.10 [facility] Comment on above: Performed By: #### C BC #### [facility] [address] [place] [address] Dr. Esme Jackson WBC 7.3 103/ul Normal 4.0-11.0 [facility] Comment on above: Performed By: #### C BC #### [facility] [address] [place] [address] Dr. Esme Jackson Covid-19 PCR ([facility])on 10-13 SARS-CoV-2 (COVID-19) RNA HANSA+probe Ql (Unsp spec) Not detected Normal NOT DETECTED [facility] Comment on above: Result Comment: When [...] for this test is supported by the [place] of Health and Human Service's declaration that [...] Performed By: #### C VDTBH #### [facility] [address] [place] [address] Dr. Esme Jackson INFLUENZA A AND B AGon 11-[facility] Normal [facility] Comment on above: Result Comment: Nega tive for Flu A protein angiten. Infection due to Flu A cannot be ruled out. Flu A angiten in the sample may be below the detection limit of the test. Performed By: #### F T4 #### [facility] [address] [place] [address] Dr. Es[facility] Jackson [facility] Normal [facility] Comment on above: Result Comment: Nega tive for Flu B protein antigen. Infection due to Flu B cannot be ruled out. Flu B antigen in the sample may be below the detection limit of the test. Performed By: #### F T4 #### [facility] [address] [place] [address] Dr. Esme Jackson INFLUENZA A AG Negative Normal NEGATIVE SEE COMMENT [facility] Comment on above: Performed By: #### F T4 #### [facility] [address] [place] [address] Dr. Esme Jackson INFLUENZA B AG Negative Normal NEGATIVE SEE COMMENT [facility] Comment on above: Performed By: #### F T4 #### [facility] [address] [place] [address] Dr. Esme Jackson PROF CHEM 8 (BAS METB)on Anion gap [Moles/Vol] 13.9 mmol/L Normal [facility] Comment on above: Performed By: #### B QUILLER TENDER, BMP, HSTROPN #### [facility] [address] [place] [address] Dr. Esme Jackson Calcium [Mass/Vol] 8.7 mg/dL Normal 8.5-10.1 [facility] Comment on above: Performed By: #### B QUILLER TENDER, BMP, HSTROPN #### [facility] [address] [address] [address] Esme Jackson Chloride [Moles/Vol] 104 mmol/L Normal 98-107 [facility] Comment on above: Performed By: #### B QUILLER TENDER, BMP, HSTROPN #### [facility] [address] [address] [address] Esme Jackson CO2 [Moles/Vol] 25.2 mmol/L Normal 21.0-32.0 [facility] Comment on above: Performed By: #### B QUILLER TENDER, BMP, HSTROPN #### [facility] [address] [address] [address] Esme Jackson Creatinine [Mass/Vol] 1.04 mg/dL Normal 0.70-1.30 [facility] Comment on above: Performed By: #### B QUILLER TENDER, BMP, HSTROPN #### [facility] [address] [address] [address] Esme Jackson EGFR-AF ROMANIAN >60 Normal >=60 [facility] Comment on above: Performed By: #### B QUILLER TENDER, BMP, HSTROPN #### [facility] [address] [address] [address] Esme Jackson EGFR-NON AF ROMANIAN >60 Normal >=60 [facility] Comment on above: Performed By: #### B QUILLER TENDER, BMP, HSTROPN #### [facility] [address] [address] [address] Esme Jackson Glucose [Mass/Vol] 199 mg/dL Critically high 74-106 [facility] Comment on above: Performed By: #### B QUILLER TENDER, BMP, HSTROPN #### [facility] [address] [address] [address] Esme Jackson Potassium [Moles/Vol] 4.1 mmol/L Normal 3.5-5.1 [facility] Comment on above: Performed By: #### B QUILLER TENDER, BMP, HSTROPN #### [facility] [address] [address] [address] Esme Jackson Sodium [Moles/Vol] 139 mmol/L Normal 136-145 [facility] Comment on above: Performed By: #### B QUILLER TENDER, BMP, HSTROPN #### [facility] [address] [address] [address] Esme Jackson Urea nitrogen [Mass/Vol] 18.0 mg/dL Normal 7.0-18.0 [facility] Comment on above: Performed By: #### B QUILLER TENDER, BMP, HSTROPN #### [facility] [address] [address] [address] Esme Jackson Urea nitrogen/Creatinine [Mass ratio] 17.3 mg/mg Normal [facility] Comment on above: Performed By: #### B QUILLER TENDER, BMP, HSTROPN #### [facility] [address] [address] [address] Esme Jackson TROPONIN, HIGH SENSITIVITYon 11-10-2022 HSTROP 35.5 pg/mL Normal 4.0-76.1 [facility] Comment on above: Result Comment: CUT- OFF POINTS HAVE BEEN ESTABLISHED BASED ON THE FOURTH UNIVERSAL DEFINITIONS OF MYOCARDIAL INFARCTION. THE UPPER REFERENCE LIMIT (URL) OF TROPONIN, DEFINED THE 99TH PERCENTILE OF cTnI DISTRIBUTION IN A REFERENCE POPULATION, HAS BEEN CONFIRMED THE DECISION THRESHOLD FOR LA DIAGNOSIS. Performed By: #### B QUILLER TENDER, BMP, HSTROPN #### [facility] [address] [place] [address] Dr. Esme Jackson XR CHEST 1 Von [...] osseous structures are stable. Electronically authenticated by: [employer] Date: 2022-11-10 09:24 Normal [facility]on SARS-CoV-2 (COVID-19) RNA HANSA+probe Ql (Unsp spec) Not detected Normal NOT DETECTED [facility] Comment on above: Result Comment: When [...] for this test is supported by the [employer] of Health and Human Service's declaration that [...] used). Performed By: #### C VDTB #### [facility] [address] [place] [address] Dr. Esme Jackson INFLUENZA A AND B [facility] 10-15 [facility] SEE BELOW Normal [facility] [facility] Comment on above: Result Comment: Nega tive for Flu A protein angiten. Infection due to Flu A cannot be ruled out. Flu A angiten in the sample may be below the detection limit of the test. Performed By: #### F T4 #### [facility] [address] [place] [address] Dr. Es[facility] SEE BELOW Normal [facility] Comment on above: Result Comment: Nega tive for Flu B protein antigen. Infection due to Flu B cannot be ruled out. Flu B antigen in the sample may be below the detection limit of the test. Performed By: #### F T4 #### [facility] [address] [place] [address] Dr. Esme Jackson INFLUENZA A AG Negative Normal NEGATIVE SEE COMMENT [facility] Comment on above: Performed By: #### F T4 #### [facility] [address] [place] [address] Dr. Esme Jackson INFLUENZA B AG Negative Normal NEGATIVE SEE COMMENT [facility] Comment on above: Performed By: #### F T4 #### [facility] [address] [place], [place] [address] Dr. Esme Jackson INTERNAL CONTROLS Within Normal Limits Normal Wi thin Normal Limits [facility] Comment on above: Performed By: #### F T4 #### [facility] [address] [place], [place] [address] Dr. Esme Jackson XR CHEST 2 Von [...] NUNEZ Date: 2022-10-15 10:08 Normal [facility] Follow Up (Endocrinology)on 10-10-2022 Follow Up [...] insulin; CATIE = N; Verified Transmission to [id number]; Last Updated By: [employer]; 10/10/2022 11:29:03 AM Albumin, Urine Spot; Status:Active; Requested for:10Oct2022; Perform:Lab Services - Lab To Draw (Non-Blood Test); Due:[id number];Ordered; For:Central hypothyroidism, Hyperlipemia, Hypogonadism male, Pituitary macroadenoma, Thyroid nodule, Type 2 diabetes mellitus with other specified complication, with long-term current use of insulin; Ordered By:Mandie Salamanca; Brain Natriuretic Peptide BNP; Status:Active; Requested for:10Oct2022; Perform:Lab Services - Lab To Draw (Blood Test); Due:[id number];Ordered; For:Central hypothyroidism, Hyperlipemia, Hypogonadism male, Pituitary macroadenoma, Thyroid nodule, Type 2 diabetes mellitus with other specified complication, with long-term current use of insulin; Ordered By:Mandie Salamanca; Complete Blood Count + Differential; Status:Active; Requested for:10Oct2022; Perform:Lab Services - Lab To Draw (Blood Test); Due:[id number];Ordered; For:Central hypothyroidism, Hyperlipemia, Hypogonadism male, Pituitary macroadenoma, Thyroid nodule, Type 2 diabetes mellitus with other specified complication, with long-term current use of insulin; Ordered By:Mandie Salamanca; Comprehensive Metabolic Panel; Status:Active; Requested for:10Oct2022; Perform:Lab Services - Lab To Draw (Blood Test); Due:[id number];Ordered; For:Central hypothyroidism, Hyperlipemia, Hypogonadism male, Pituitary macroadenoma, [...] Cortisol AM 19.6 ug/dL Critically high 6.2-19.4 [facility] Comment on above: Performed By: #### C ORTAM #### [facility] [address] [place] [address] [address] Esme Jackson MICROALBUMIN URINEon 022 Albumin, Urine 36.5 ug/mL Normal Not Estab. The [facility] Comment on above: Performed By: #### F T4 #### [facility] [address] [place] [address] [address] Esme Jackson FREE T4on 06-22-2022 Free T4 [Mass/Vol] 1.22 ng/dL Normal 0.76-1.46 [facility] Comment on above: Performed By: #### F T4 #### [facility] [address] [place] [address] Dr. Esme Jackson GLYCOHEMOGLOBIN A1Con 2021 ADA RECOMMENDATION SEE BELOW Normal [facility] Comment on above: Result Comment: ADA RECOMMENDED LIMIT 4.0 - 6.0 ADA THERAPEUTIC TARGET < 7.0 ACTION SUGGESTED > 7.0 Performed By: #### F T4 #### [facility] [address] [place] [address] Dr. Esme Jackson Glucose [Mass/Vol] 194 mg/dL Normal [facility] Comment on above: Performed By: #### F T4 #### [facility] [address] [place] [address] [address] Esme Jackson HbA1c (Bld) [Mass fraction] 8.4 % Critically high 4.5-6.2 [facility] Comment on above: Performed By: #### F T4 #### [facility] [address] [place] [address] [address] Esme Jackson LIPID PROFILEon 06-22-2022 CHOL-HDL RATIO NORM SEE BELOW Normal [facility] Comment on above: Result Comment: 3.3 - 4.4 LOW RISK 4.4 - 7.1 AVERAGE RISK 7.1 - 11.0 MODERATE RISK >11.0 HIGH RISK Performed By: #### F T4 #### [facility] [address] [place] [address] [address] Esme Jackson Cholesterol [Mass/Vol] 153 mg/dL Normal <=200 [facility] Comment on above: Performed By: #### F T4 #### [facility] [address] [place] [address] [address] Esme Jackson Cholesterol in HDL [Mass/Vol] 55 mg/dL Normal 40-60 [facility] Comment on above: Performed By: #### F T4 #### [facility] [address] [place] [address] [address] Esme Jackson Cholesterol in LDL [Mass/Vol] 82.2 mg/dL Normal [facility] Comment on above: Performed By: #### F T4 #### [facility] [address] [place] [address] [address] Esme Jackson Cholesterol.total/Ch olesterol in HDL [Mass ratio] 2.8 {ratio} Normal [facility] Comment on above: Performed By: #### F T4 #### [facility] [address] [place] [address] [address] Esme Jackson HDL NORMAL > or = 60 mg/dl - LO W CARDIOVASCULAR RISK <40 mg/dl - HIGH CARDIOVASCULAR RISK Normal [facility] Comment on above: Performed By: #### F T4 #### [facility] [address] [place] [address] [address] Esme Jackson LDL CALC NORMAL SEE BELOW Normal [facility] Comment on above: Result Comment: <100 mg/dl OPTIMAL 100 - 129 mg/dl NEAR OR ABOVE OPTIMAL 130 - 159 mg/dl BORDERLINE HIGH 160 - 189 mg/dl HIGH >190 mg/dl VERY HIGH Performed By: #### F T4 #### [facility] [address] [place] [address] [address] Esme Jackson Triglyceride [Mass/Vol] 79 mg/dL Normal <=150 [facility] Comment on above: Performed By: #### F T4 #### [facility] [address] [place] [address] [address] Esme Jackson VLDL CALC 15.8 mg/dL Normal [facility] Comment on above: Performed By: #### F T4 #### [facility] [address] [place] [address] Dr. Esme Jackson PROF 14(COMP METB)on 022 Albumin [Mass/Vol] 3.9 g/dL Normal 3.4-5.0 [facility] Comment on above: Performed By: #### F T4 #### [facility] [address] [place] [address] Dr. Esme Jackson Albumin/Globulin [Mass ratio] 1.1 {ratio} Normal [facility] Comment on above: Performed By: #### F T4 #### [facility] [address] [place] [address] Dr. Esme Jackson ALP [Catalytic activity/Vol] 57 U/L Normal 46-116 [facility] Comment on above: Performed By: #### F T4 #### [facility] [address] [place] [address] Dr. Esme Jackson ALT [Catalytic activity/Vol] 22 U/L Normal 16-63 [facility] Comment on above: Performed By: #### F T4 #### [facility] [address] [place] [address] Dr. Esme Jackson Anion gap [Moles/Vol] 12.6 mmol/L Normal [facility] Comment on above: Performed By: #### F T4 #### [facility] [address] [place] [address] Dr. Esme Jackson AST [Catalytic activity/Vol] 18 U/L Normal 15-37 [facility] Comment on above: Performed By: #### F T4 #### [facility] [address] [place] [address] Dr. Esme Jackson Bilirubin [Mass/Vol] 1.1 mg/dL Critically high 0.2-1.0 [facility] Comment on above: Performed By: #### F T4 #### [facility] [address] [place] [address] Dr. Esme Jackson Calcium [Mass/Vol] 9.0 mg/dL Normal 8.5-10.1 [facility] Comment on above: Performed By: #### F T4 #### [facility] [address] [place] [address] [address] Esme Jackson Chloride [Moles/Vol] 103 mmol/L Normal 98-107 [facility] Comment on above: Performed By: #### F T4 #### [facility] [address] [place] [address] Dr. Esme Jackson CO2 [Moles/Vol] 27.2 mmol/L Normal 21.0-32.0 [facility] Comment on above: Performed By: #### F T4 #### [facility] [address] [place] [address] Dr. Esme Jackson Creatinine [Mass/Vol] 0.90 mg/dL Normal 0.70-1.30 [facility] Comment on above: Performed By: #### F T4 #### [facility] [address] [place] [address] Dr. Esme Jackson EGFR-AF ROMANIAN >60 Normal >=60 [facility] Comment on above: Performed By: #### F T4 #### [facility] [address] [place] [address] Dr. Esme Jackson EGFR-NON AF ROMANIAN >60 Normal >=60 [facility] Comment on above: Performed By: #### F T4 #### [facility] [address] [place] [address] Dr. Esme Jackson Globulin (S) [Mass/Vol] 3.4 g/dL Normal [facility] Comment on above: Performed By: #### F T4 #### [facility] [address] [place] [address] Dr. Esme Jackson Glucose [Mass/Vol] 185 mg/dL Critically high 74-106 [facility] Comment on above: Performed By: #### F T4 #### [facility] [address] [place] [address] Dr. Esme Jacskon Potassium [Moles/Vol] 3.8 mmol/L Normal 3.5-5.1 [facility] Comment on above: Performed By: #### F T4 #### [facility] [address] [place] [address] Dr. Esme Jackson Protein [Mass/Vol] 7.3 g/dL Normal 6.4-8.2 [facility] Comment on above: Performed By: #### F T4 #### [facility] [address] [place] [address] [address] Esme Jackson Sodium [Moles/Vol] 139 mmol/L Normal 136-145 [facility] Comment on above: Performed By: #### F T4 #### [facility] [address] [place] [address] [address] Esme Jackson Urea nitrogen [Mass/Vol] 12.0 mg/dL Normal 7.0-18.0 [facility] Comment on above: Performed By: #### F T4 #### [facility] [address] [place] [address] Dr. Esme Jackson Urea nitrogen/Creatinine [Mass ratio] 13.3 mg/mg Normal [facility] Comment on above: Performed By: #### F T4 #### [facility] [address] [place] [address] Dr. Esme Jackson US THYROIDon 06-22-2022 US [...] nodules. 1 year follow-up recommended TI-RADS: The [employer] TI-RADS committee's white paper recommendations for thyroid lesions classified as TR5 (highly suspicious) are listed below: > 0.5 cm. Annual ultrasound follow-up for up to 5 years. > 1.0 cm. FNA. J. Am Dionicio Radiol 2017;14:587-595. Electronically authenticated by: GEORGIE DAVIES Date: 2022-06-22 17:28 Normal [facility] Follow Up (Endocrinology)on 04-24-2022 Follow Up [...] Services - Lab To Draw (Blood Test); Due:[id number];Ordered; For:Central hypothyroidism, Hyperlipemia, Hypogonadism male, Pituitary macroadenoma, Thyroid nodule, Type 2 diabetes mellitus with other specified complication, with long-term current use of insulin; Ordered By:Mandie Salamanca; Cortisol A.M.; Status:Active; Requested for:24Apr2022; Perform:Lab Services - Lab To Draw (Blood Test); Due:[id number];Ordered; For:Central hypothyroidism, Hyperlipemia, Hypogonadism male, Pituitary macroadenoma, [...] Thyroid; Status:Hold For - Scheduling; Requested for:24Apr2022; Perform:[facility] Services Imaging; Due:23Jul2022;Ordered; For:Central [...] nodule; CATIE = N; [facility]; Last Updated By: [employer]; 04/24/2022 10:33:22 AM Hypogonadism male, Pituitary macroadenoma Renew: Testosterone 50 MG/5GM (1%) Transdermal Gel; APPLY 1 PACKET ONE TIME DAILY DIRECTED Rx By: Mandie Salamanca; Dispense: 0 Days ; #:90 X 5 GM Package; Refill: 1;For: Hypogonadism male, Pituitary macroadenoma; CATIE = N; Verified Transmission to [facility]; Last Updated By: [employer]; 04/24/2022 10:33:21 AM Pituitary macroadenoma Renew: Cabergoline 0.5 MG Oral Tablet; Take 1 tablet every other day Rx By: Mandie Salamanca; Dispense: 80 Days ; #:40 Tablet; Refill: 3;For: Pituitary macroadenoma; CATIE = N; Verified Transmission to [facility]; Last Updated By: [employer]; 04/24/2022 10:33:26 AM Type 2 diabetes mellitus with other specified complication, with long-term current use of insulin Renew: Accu-Chek Alicia Plus In Vitro Strip; TEST TWICE DAILY Rx B (more content not included)... Normal [facility] Tobacco Screening.on 022 Adult depression screening assessment No -Medicine [facility] [address] Work Phone: Fall risk assessment a) No falls within the last year [facility] [address] Work Phone: Tobacco use status [facility] b) No [facility] [address] Work Phone: Vital Signs Date Time Vital Sign Value Performing Clinician Facility 07-14-2024 11:22-0400 Body height 182.9 cm Henrry Johnson MD Work Phone: [facility] 07-14-2024 11:22-0400 Body mass index (BMI) [Ratio] 26.31 kg/m2 Henrry Johnson MD Work Phone: [facility] 07-14-2024 11:22-0400 Body weight 88 kg Henrry Johnson MD Work Phone: [facility] 07-14-2024 11:22-0400 Diastolic blood pressure 62 mm[Hg] Henrry Johnson MD Work Phone: [facility] 07-14-2024 11:22-0400 Systolic blood pressure 131 mm[Hg] Henrry Johnson MD Work Phone: [facility] 04-14-2024 12:35-0400 Diastolic blood pressure 63 mm[Hg] MD Joseluis Quiroz Work Phone: [facility] 04-14-2024 12:35-0400 Heart rate 54 /min MD Joseluis Quiroz Work Phone: [facility] 04-14-2024 12:35-0400 Respiratory rate 18 /min MD Joseluis Quiroz Work Phone: [facility] 04-14-2024 12:35-0400 SaO2% (BldA) [Mass fraction] 99 % MD Joseluis Quiroz Work Phone: [facility] 04-14-2024 12:35-0400 Systolic blood pressure 125 mm[Hg] MD Joseluis Quiroz Work Phone: [facility] 04-14-2024 11:02-0400 Body height 182.88 cm MD Joseluis uQiroz Work Phone: [facility] 04-14-2024 11:02-0400 Body weight 86.18 kg MD Joseluis Quiroz Work Phone: [facility] 03-18-2024 10:35-0400 Body height 182.88 cm MD Joseluis Quiroz Work Phone: [facility] 03-18-2024 10:35-0400 Body mass index (BMI) [Ratio] 25.7 kg/m2 MD Joseluis Quiroz Work Phone: [facility] 03-18-2024 10:35-0400 Body weight 86.18 kg MD Joseluis Quiroz Work Phone: [facility] 03-06-2024 10:52-0400 Body height 182.88 cm MD Joseluis Quiroz Work Phone: [facility] 03-06-2024 10:52-0400 Body mass index (BMI) [Ratio] 26.9 kg/m2 MD Joseluis Quiroz Work Phone: [facility] 03-06-2024 10:52-0400 Body temperature 99.2 [degF] MD Joseluis Quiroz Work Phone: [facility] 03-06-2024 10:52-0400 Body weight 89.98 kg MD Joseluis Quiroz Work Phone: [facility] 03-06-2024 10:52-0400 Diastolic blood pressure 60 mm[Hg] MD Joseluis Quiroz Work Phone: [facility] 03-06-2024 10:52-0400 Heart rate 69 /min MD Joseluis Quiroz Work Phone: [facility] 03-06-2024 10:52-0400 Respiratory rate 18 /min MD Joseluis Quiroz Work Phone: [facility] 03-06-2024 10:52-0400 SaO2% (BldA) [Mass fraction] 95 % MD Joseluis Quiroz Work Phone: [facility] 03-06-2024 10:52-0400 Systolic blood pressure 127 mm[Hg] MD Joseluis Quiroz Work Phone: [facility] 10-29-2023 13:30-0500 Body height 182.88 cm Joseluis Quiroz Other [facility] [email or web address] Other 10-29-2023 13:30-0500 Body mass index (BMI) [Ratio] 26.09 kg/m2 Joseluis Quiroz Other [employer] Other 10-29-2023 13:30-0500 Body weight 87.27 kg Joseluis Quiroz Other [employer] Other 10-29-2023 13:30-0500 Diastolic blood pressure 72 mm[Hg] Joseluis Quiroz Other [employer] Other 10-29-2023 13:30-0500 SaO2% (BldA) [Mass fraction] 93 % Joseluis Quiroz Other [employer] Other 10-29-2023 13:30-0500 Systolic blood pressure 130 mm[Hg] Joseluis Quiroz Other [employer] Other 08-19-2023 11:00-0400 Body height 182.88 cm Joseluis Quiroz Other [employer] Other 08-19-2023 11:00-0400 Body mass index (BMI) [Ratio] 25.36 kg/m2 Joseluis Quiroz Other [employer] Other 08-19-2023 11:00-0400 Body weight 84.82 kg Joseluis Quiroz Other [employer] Other 08-19-2023 11:00-0400 Diastolic blood pressure 61 mm[Hg] Joseluis Quiroz Other [employer] Other 08-19-2023 11:00-0400 Systolic blood pressure 126 mm[Hg] Joseluis Quiroz Other [employer] Other Encounters Encounter Date Encounter Type Care Provider Facility Start: 09-16-2024 End: 09-16-2024 [facility] Start: 07-14-2024 End: 07-14-2024 Brittany Garrido [...] Medicine Comment on above: Insurance Authorizat ion ([place]) Start: 05-07-2024 End: 05-07-2024 Office outpatient visit 40 minutes Mandie Salamanca MD Work Phone: [facility] Comment on above: Hypopituitarism (Mul ti) (Primary Dx); Hypogonadism male; Hyperparathyroidism (Multi); Hyperprolactinemia (Multi); Type 2 diabetes mellitus without complication, with long-term current use of insulin (Multi); Thyroid nodule Start: 04-14-2024 Non-patient / Non-visit MD Hiral Quiroz Work Phone: [facility] Work Phone: Start: 04-14-2024 End: 04-14-2024 Admission to same day surgery center MD Joseluis Quiroz Work Phone: [facility] Work Phone: Start: 04-14-2024 End: 04-14-2024 ambulatory MD Joseluis Quiroz Work Phone: [facility] Work Phone: Start: 04-01-2024 End: [facility] Start: 03-23-2024 End: 03-23-2024 ambulatory RAPHAEL SPRINGER Not Available Start: 03-18-2024 End: 03-18-2024 Patient encounter procedure MD Joseluis Quiroz Work Phone: [facility] Gastroenter[facility] Work Phone: Start: 03-06-2024 End: 03-06-2024 Patient encounter procedure MD Joseluis Quiroz Work Phone: [facility] Ur[facility] Emanuel Work Phone: Start: 12-23-2023 End: 12-23-2023 ambulatory Joseluis Quiroz Other [employer] Other Start: 12-23-2023 Telephone encounter Joseluis Quiroz [facility] Start: 10-29-2023 End: 10-29-2023 ambulatory Joseluis Quiroz Other [employer] Other Start: 10-29-2023 Office outpatient vi sit 15 minutes Joseluis Quiroz [facility] Start: 10-16-2023 End: 10-16-2023 ambulatory Joseluis Quiroz Other [employer] Other Start: 10-16-2023 Telephone encounter Joseluis Ellie [facility] Start: 09-13-2023 End: 09-13-2023 ambulatory Joseluis Quiroz Other [employer] Other Start: 09-13-2023 Telephone encounter Joseluis Ellie [facility] Start: 09-10-2023 End: 09-10-2023 ambulatory Joseluis Ellie Other [employer] Other Start: 09-10-2023 Telephone encounter Joseluis Ellie [facility] Start: 08-19-2023 End: 08-19-2023 ambulatory Joseluis Quiroz Other [employer] Other Start: 08-19-2023 Office outpatient vi sit 15 minutes Joseluis Quiroz [facility] Start: 07-31-2023 End: 07-31-2023 ambulatory Joseluis Quiroz Other [facility] [email or web address] Other Start: 07-31-2023 Telephone encounter Joseluis Quiroz [facility] Start: 05-29-2023 Rx Renewal Cabrera [facility]ont Work Phone: FZ-Syhqvahz-Oytfedh [facility] [address] Work Phone: Start: 04-08-2023 Rx Renewal Cabrera [address]ont Work Phone: [facility] [address] [place] Work Phone: Start: 02-28-2023 End: 03-01-2023 ambulatory TONA SHAKIRA Facility:H1 Start: 01-30-[address] JOSELUIS QUIROZ Facil ity:H1 Start: 01-22-2023 AUDIT [address] Work Phone: [facility] Work Phone: Start: 01-22-2023 Rx Renewal [...] sit 25 minutes Cabrera [address]ont Work Phone: VY-Yweldjsipbifl-BZY [address] Work Phone: Start: 10-10-2022 ambulatory Referral Self Facility: [id number] Start: 09-28-2022 AUDIT [address] Work Phone: NQ-Hxjjzonasjzhk-[facility] Work Phone: Start: 07-13-2022 Rx Renewal [address] Work Phone: [facility] [address] [place] Work Phone: Start: 07-02-2022 Telephone encounter Mandie sun MD Work Phone: Endocrinology Comment on above: Received Outside Med ical Records (Received Thyroid US report from [facility]. Indexed into chart. ) Start: 06-22-2022 End: 06-23-[address] DOCTOR BUSBY Facility:H1 Start: 04-24-2022 Office outpatient vi sit 40 minutes [address] Work Phone: DM-Cgbhkwem-Onif[facility] [address] Work Phone: Start: 04-24-[address] Cabrera Dupont Facility:[id number] Start: 03-27-2022 AUDIT [address] Work Phone: IR-Ykaoozfrsdjod-[facility]hrqv[facility] Work Phone: Start: 01-23-2022 AUDIT [address] Work Phone: EE-Kepqhmapcejhw-Zdapgkw[facility] Work Phone: Start: 12-11-2021 Rx Renewal [address] Work Phone: BY-Pekrwloboqagy-Lviczb[facility] Work Phone: Start: 11-08-2021 AUDIT [address] Work Phone: PE-Gqowgcrgjhhjp-Skbduhd [facility] Work Phone: Start: 08-21-2021 AUDIT [address] Work Phone: KH-Vebzcwapjiwxv-IPJ [address] Work Phone: Start: 05-31-2021 AUDIT [address] Work Phone: EN-Rdgttmxqzhelo-CFR [address] Work Phone: Start: 06-20-2017 End: 06-21-2017 Ambulatory DEFAULT PHYSICIAN Facility:[facility] Procedures Date Procedure Procedure Detail Performing Clinician [...] EDT Office Visit [facility] [address] [facility] [address] [place] [id number] Henrry Johnson MD [address] [facility] [address] [place] [address] Arrived [facility] Comment on above: Arrived Start: 07-12-2024 Influenza vaccination [facility] Start: 05-07-2024 End: 05-07-2025 Comprehensive metabolic 2000 panel - Serum or Plasma Comprehensive Metabolic Panel Lab Routine Hypopituitarism (Multi) Hypogonadism male Hyperparathyroidism (Multi) Hyperprolactinemia (Multi) Type 2 diabetes mellitus without complication, with long-term current use of insulin (Multi) Expected: 05/07/2024 (Approximate), Expires: 05/07/2025 [facility] Work Phone: Comment on above: Expected: 05/07/2024 (Approximate), Expi res: 05/07/2025 Start: 05-07-2024 End: 05-07-2025 Cortisol [Mass/volume] in Serum or Plasma Cortisol Lab Routine Hypopituitarism (Multi) Hypogonadism male Hyperparathyroidism (Multi) Hyperprolactinemia (Multi) Type 2 diabetes mellitus without complication, with long-term current use of insulin (Multi) Expected: 05/07/2024 (Approximate), Expires: 05/07/2025 [facility] Service Area Work Phone: Comment on above: Expected: 05/07/2024 (Approximate), Expi res: 05/07/2025 Start: 05-07-2024 End: 05-07-2025 Hemoglobin A1c/Hemoglobin.total in Blood Hemoglobin A1C Lab Routine Hypopituitarism (Multi) Hypogonadism male Hyperparathyroidism (Multi) Hyperprolactinemia (Multi) Type 2 diabetes mellitus without complication, with long-term current use of insulin (Multi) Expected: 05/07/2024 (Approximate), Expires: 05/07/2025 [facility] Work Phone: Comment on above: Expected: 05/07/2024 (Approximate), Expi res: 05/07/2025 Start: 05-07-2024 End: 05-07-2025 Lipid 1996 panel - Serum or Plasma Lipid Panel Lab Routine Hypopituitarism (Multi) Hypogonadism male Hyperparathyroidism (Multi) Hyperprolactinemia (Multi) Type 2 diabetes mellitus without complication, with long-term current use of insulin (Multi) Expected: 05/07/2024 (Approximate), Expires: 05/07/2025 [facility] Work Phone: Comment on above: Expected: 05/07/2024 (Approximate), Expi res: 05/07/2025 Start: 05-07-2024 End: 05-07-2025 Microalbumin/Creatinin e [Mass Ratio] in Urine Albumin-Creatinine Ratio, Urine Random Lab Routine Hypopituitarism (Multi) Hypogonadism male Hyperparathyroidism (Multi) Hyperprolactinemia (Multi) Type 2 diabetes mellitus without complication, with long-term current use of insulin (Multi) Expected: 05/07/2024 (Approximate), Expires: 05/07/2025 [facility] Work Phone: Comment on above: Expected: 05/07/2024 (Approximate), Expi res: 05/07/2025 Start: 05-07-2024 End: 05-07-2025 MR Pituitary and Sella turcica WO and W contrast IV MR sella w and wo IV contrast Imaging Routine Hypopituitarism (Multi) Hypogonadism male Hyperparathyroidism (Multi) Hyperprolactinemia (Multi) Type 2 diabetes mellitus without complication, with long-term current use of insulin (Multi) Thyroid nodule Expected: 05/07/2024, Expires: 05/07/2025 [facility] Work Phone: Comment on above: Expected: 05/07/2024, Expires: Start: 05-07-2024 End: 05-07-2025 Parathyrin.intact [Mass/volume] in Serum or Plasma Parathyroid Hormone, Intact Lab Routine Hypopituitarism (Multi) Hypogonadism male Hyperparathyroidism (Multi) Hyperprolactinemia (Multi) Type 2 diabetes mellitus without complication, with long-term current use of insulin (Multi) Thyroid nodule Expected: 05/07/2024 (Approximate), Expires: 05/07/2025 [facility] Work Phone: Comment on above: Expected: 05/07/2024 (Approximate), Expi res: 05/07/2025 Start: 05-07-2024 End: 05-07-2025 Prolactin [Mass/volume] in Serum or Plasma Prolactin Lab Routine Hypopituitarism (Multi) Hypogonadism male Hyperparathyroidism (Multi) Hyperprolactinemia (Multi) Type 2 diabetes mellitus without complication, with long-term current use of insulin (Multi) Expected: 05/07/2024 (Approximate), Expires: 05/07/2025 [facility] Work Phone: Comment on above: Expected: 05/07/2024 (Approximate), Expi res: 05/07/2025 Start: 05-07-2024 End: 05-07-2025 Testosterone,Free and Total Testosterone,Free and Total Lab Routine Hypopituitarism (Multi) Hypogonadism male Hyperparathyroidism (Multi) Hyperprolactinemia (Multi) Type 2 diabetes mellitus without complication, with long-term current use of insulin (Multi) Expected: 05/07/2024 (Approximate), Expires: 05/07/2025 [facility] Work Phone: Comment on above: Expected: 05/07/2024 (Approximate), Expi res: 05/07/2025 Start: 05-07-2024 End: 05-07-2025 Thyroxine (T4) free [Mass/volume] in Serum or Plasma Thyroxine, Free Lab Routine Hypopituitarism (Multi) Hypogonadism male Hyperparathyroidism (Multi) Hyperprolactinemia (Multi) Type 2 diabetes mellitus without complication, with long-term current use of insulin (Multi) Expected: 05/07/2024 (Approximate), Expires: 05/07/2025 [facility] Work Phone: Comment on above: Expected: 05/07/2024 (Approximate), Expi res: 05/07/2025 Start: 04-14-2024 [facility] Start: 11-11-2023 Advance Directive Discussion Advance Directive Discussion [facility] Start: 07-12-2023 Covid-19 Vaccine () Covid-19 Vaccine () [facility] Start: 10-10-2022 AMY, Provider: Mandie Salamanca, Status: Pen, Time: 11:15 AM AMY, Provider: Mandie Salamanca, Status: Pen, Time: 11:15 AM [facility] Work Phone: Start: 07-12-2022 Influenza vaccination INFLUENZA (#1) [facility] Start: 04-24-2022 AMY, Provider: Ynes Sahni, Status: Pen, Time: 1:00 PM AMY, Provider: Ynes Sahni, Status: Pen, Time: 1:00 PM [facility]psju[facility] Work Phone: Start: 01-21-2022 Diabetes Screening Diabetes Screening [facility] Start: 11-11-2021 ADVANCE DIRECTIVE DISCUSSION ADVANCE DIRECTIVE DISCUSSION [facility] Start: 08-24-2021 Lipid panel Lipid Screening [facility] Start: 07-24-2019 Hemoglobin A1c/Hemoglobin.total in Blood HBA1C [facility] Start: 08-12-2018 Pneumococcal Vaccine: 65+ (2 of 2 - PCV) Pneumococcal Vaccine: 65+ (2 of 2 - PCV) [facility] Start: 08-12-2018 Pneumococcal Vaccine: 65+ Years (2 of 2 - PCV) Pneumococcal Vaccine: 65+ Years (2 of 2 - PCV) [facility] Start: 10-07-2017 Shingrix Vaccine (3 of 3) Shingrix Vaccine (3 of 3) [facility] Start: 08-24-2017 Hepatitis B screening URINE ALBUMIN:CREATININE RATIO [facility] Start: 08-24-2017 Hepatitis B surface antibody level LDL CHOLESTEROL [facility] Start: 08-14-2017 3 comp foot exam completed DIABETIC FOOT EXAM [facility] Start: 11-22-2016 Hepatitis C antibody, confirmatory test DILATED RETINAL EXAM [facility] Start: 2016 PNEUMOCOCCAL: 65+ (1 - PCV) PNEUMOCOCCAL: 65+ (1 - PCV) [facility] Start: 2011 RSV patients and/or patients aged 60+ years (1 - 1-dose 60+ series) RSV patients and/or patients aged 60+ years (1 - 1-dose 60+ series) [facility] Start: 2011 RSV Vaccine (1 - 1-dose 60+ series) RSV Vaccine (1 - 1-dose 60+ series) [facility] Start: 2001 SHINGRIX VACCINE (1 of 2) SHINGRIX VACCINE (1 of 2) [facility] Start: 2001 Zoster Vaccines (1 of 2) Zoster Vaccines (1 of 2) [facility] Start: 1996 COLOGUARD (FIT-DNA) COLOGUARD (FIT-DNA) [facility] Start: 1996 Colonoscopy COLONOSCOPY [facility] Start: 1996 COLORECTAL CANCER SCREENING COLORECTAL CANCER SCREENING [facility] Start: [address] COLONOGRAPHY [facility] Start: 1996 FECAL OCCULT BLOOD FECAL OCCULT BLOOD [facility] Start: 1996 Screening for malignant neoplasm of colon [facility] Start: 1996 SIGMOIDOSCOPY SIGMOIDOSCOPY [facility] Start: 1973 DTaP/Tdap/Td Vaccines (1 - Tdap) DTaP/Tdap/Td Vaccines (1 - Tdap) [facility] Start: 1970 Urine microalbumin profile [facility] Start: 1970 Urine screening for protein Diabetes: Urine Protein Screening [facility] Start: 1969 Anxiety Screening Anxiety Screening [facility] Start: 1969 Depression Screening Depression Screening [facility] Start: 1969 HEPATITIS C SCREENING HEPATITIS C SCREENING [facility] Start: 1969 Hepatitis C screening Hepatitis C Screening [facility] Start: 1963 Adult depression screening assessment DEPRESSION SCREENING [facility] Start: 1961 Diabetic foot examination Diabetes: Foot Exam [facility] Start: 1961 Glaucoma screening Diabetes: Retinopathy Screening [facility] Start: 1957 Pneumococcal Vaccine: 65+ Years (1 of 2 - PCV) Pneumococcal Vaccine: 65+ Years (1 of 2 - PCV) [facility] Start: 02-08-1952 COVID-19 VACCINE (#1) COVID-19 VACCINE (#1) [facility] Start: 1951 ABDOMINAL AORTIC ANEURYSM SCREENING ABDOMINAL AORTIC ANEURYSM SCREENING [facility] Start: 1951 Abdominal aortic aneurysm screening Abdominal Aortic Aneurysm Screening [facility] Start: 1951 Hemoglobin A1c measurement Diabetes: Hemoglobin A1C [facility] Start: 1950 Lipid panel Lipid Panel [facility] Start: 1950 Medicare Annual Wellness Visit Medicare Annual Wellness Visit (AWV) [facility] Start: 1950 Screening for malignant neoplasm of colon [facility] Start: 1951 Thyroid stimulating hormone measurement TSH Level [facility] Patient Education Colon polyps D iverticulosis (DC) [facility] Work Phone: US Thyroid gland US thyroid Imag ing Routine Hypopituitarism (Multi) Hypogonadism male Hyperparathyroidism (Multi) Hyperprolactinemia (Multi) Type 2 diabetes mellitus without complication, with long-term current use of insulin (Multi) Thyroid nodule Ordered: 05/07/2024 [facility] Work Phone: Comment on above: Ordered: 05/07/2024 XR Abdomen Single view [facility] Immunizations Immunization Date Immunization Notes Care Provider Fa cility 10-12-2023 influenza virus vacc ine, unspecified formulation Henrry Johnson MD Work Phone: [facility] 08-15-2022 Fluzone High-Dose Quadrivalent 0.7 ML Intramuscular Suspension Prefilled Syringe [facility] Work Phone: MU-Nbkdaopfzvezw-BB [facility] [address] Work Phone: 09-06-2021 Fluad Quadrivalent 0 .5 ML Intramuscular Prefilled Syringe [facility] Work Phone: JG-Arkvmebjcnkvt-IQ [facility] [address] Work Phone: 01-18-2021 Neva COVID-19 Vac cine 0.5 ML Intramuscular Suspension [facility] Work Phone: NK-Dmpfnllncolgu-UI [facility] [address] Work Phone: 09-08-2020 Fluad Quadrivalent 0 .5 ML Intramuscular Prefilled Syringe [facility] Work Phone: BD-Twzknrdqsdzux-GS [facility] [address] Work Phone: 08-24-2020 influenza, seasonal, injectable [facility] Work Phone: ME-Uumwozoacgfid-SZ [facility] [address] Work Phone: 08-24-2019 Seasonal trivalent influenza vaccine, adjuvanted, preservative free [facility] Work Phone: LO-Wyxictqfwqrhh-RP [facility] [address] Work Phone: 08-04-2018 influenza, injectabl e, quadrivalent, preservative free [facility] Work Phone: RE-Xghivquwixssk-LK [address] Work Phone: 08-04-2018 influenza virus vacc ine, unspecified formulation Rickey Salamanca MD Work Phone: [facility] 07-19-2018 influenza, high dose seasonal, preservative-free [facility] Work Phone: BP-Jcrzejrtpqymi-KG [facility] [address] Work Phone: 08-21-2017 influenza, high dose seasonal, preservative-free [facility] Work Phone: VN-Tdmbwaolgfalb-NJ [facility] [address] Work Phone: 08-12-2017 pneumococcal polysaccharide vaccine, 23 valent [facility] Work Phone: VS-Ologbqvradhcj-UI [address] Work Phone: 08-12-2017 zoster vaccine recombinant [facility] Work Phone: DK-Mehgnkzenaxng-WA [facility] [address] Work Phone: 08-21-2016 influenza, high dose seasonal, preservative-free [facility] Work Phone: WV-Rciytkpkqchkg-VL [address] Work Phone: 2015 influenza, seasonal, injectable, preservative free [facility] Work Phone: SG-Azmdxehgmxkrc-SQ [address] Work Phone: 08-04-2014 influenza, seasonal, injectable [facility] Work Phone: QU-Llhuengysgijc-PG [address] Work Phone: 08-04-2014 pneumococcal polysaccharide vaccine, 23 valent [facility] Work Phone: XJ-Nbfqbqismvsxa-DS [facility] [address] Work Phone: 08-04-2014 zoster vaccine, live [facility] Work Phone: MH-Hbgssvnlcjstb-OD [address] Work Phone: Payers Date Payer Category Payer Self-pay [id number] 2018 Medicare [id number] 2013 Unknown 1959 Self-pay [id number] 1959 Unknown [id number] 1951 Unknown [id number] 2.16. [id number] 1951 Unknown [id number] 2.16. [id number] 1951 Unknown [id number] 2.16.84 [id number] 1951 Unknown [id number] 2.16.84 [id number] 1951 Unknown [id number] 2.16.84 [id number] 1951 Unknown [id number] 2.16.84 [id number] 1951 Unknown [id number] 2.16.84 [id number] 1951 Unknown [id number] 2.16.84 [id number] 1951 Unknown [id number] 2.16.84 [id number] 1951 Unknown [id number] 2.16.84 [id number] 1951 Unknown [id number] 2.16.84 [id number] Unknown [id number] 2.16.84 [id number] Unknown [facility] [id number] Unknown [id number] 2.16.8 [id number] Social History Date Type Detail Facility Start: 01-21-2019 End: 07-09-2024 Former smoker Former smoker LM-Zoldcdirrljpy-BWG [facility] Work Phone: Start: 06-30-2013 End: 07-09-2024 Tobacco smoking status KSIS Ex-smoker [facility] Start: 11-11-1966 End: 12-12-1992 History of tobacco use Current smoker [facility] Start: 11-11-1966 End: 12-12-1992 History of tobacco use Cigarette Smoker [facility] Start: 06-30-2013 End: 07-09-2024 Tobacco use and exposure Smokeless tobacco non-user [facility] Start: 01-21-2019 Alcohol intake Current non-dr pediatric rn of alcohol (finding) [facility] Start: 1950 Sex Assigned At Not on file [facility] Start: 01-21-2019 End: 07-09-[address] [facility] [employer] Other Start: 1950 Sex Assigned At Male F [facility] National Score (1-100), lower number is lower risk Not on file [facility] Tobacco smoking status NHIS Tobacco smoking consumption unknown [facility] Work Phone: Start: 07-09-2024 End: 07-14-2024 Alcoholic beverage intake Lifetime non-drinker (finding) [facility] Medical Equipment Procedure Code Equipment Code Equipment Original Text Equipment Identifier Dates [id number], [id number], [id number] Start: 09-15-2018 Comment on above: Use as [...] Date & Type Note Facility 09-16-2024 Note [place] Cardiology - [facility] Subjective Gadiel Smith is [...] in the mor (more content not included)... [facility] 07-14-2024 History of Present illness Narrative Subjective Patient ID: Alexis Smith is a 73 y.o. male who presents for Thyroid Nodule (Ultrasound 06/09/24. ) Pt has a long h/o thyroid nodules and a remote h/o parathyroidectomy. H/O prolactinoma tx medically. 05/3024 thyroid US shows a [id number] RT TR5 nodule. Pt's cosmetologist apprentice would like the nodule biopsied. Review of Systems All other systems reviewed and are negative. Family History Problem Relation Name Age of Onset Diabetes type II Mother Active Ambulatory Problems Diagnosis Date Noted Alzheimer's disease with late onset ([facility]) 06/27/2024 Dementia in other diseases classified elsewhere, unspecified severity, without behavioral disturbance, psychotic disturbance, mood disturbance, and anxiety ([facility]) 06/27/2024 History of ischemic stroke 06/27/2024 Personality change 06/27/2024 Pituitary mass ([facility]) 06/27/2024 Depression ([facility]/HCC) 06/27/2024 Memory impairment 06/27/2024 Abnormal stress test 04/28/2015 Acquired hypothyroidism ([facility]/HCC) 07/09/2024 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 Atrial flutter ([facility]/H[facility]) 11/28/2022 Carotid stenosis, bilateral 04/01/2024 Chronic systolic [...] (CMS/HCC) 12/24/2019 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CMS/HCC) 11/16/2009 Pure hypercholesterolemia ([facility]) 07/09/2024 Thyroid nodule ([facility]) 11/16/2009 Type 2 diabetes mellitus with hyperglycemia ([facility]) 07/09/2024 Resolved Ambulatory Problems Diagnosis Date Noted Diarrhea 07/09/2024 Dietary counseling and surveillance 07/09/2024 Rotator cuff strain 06/16/2013 S/P ablation of atrial fibrillation 05/02/2023 Past Medical History: Diagnosis Date Afib ([facility]) CHF (congestive heart failure) ([facility]) Diabetes mellitus type II, controlled ([facility]) GERD (gastroesophageal reflux disease) Hypercholesterolemia ([facility]) Hypogonadism in male Hypothyroid ([facility]) Stroke ([facility]) 2016 Past Surgical History: Procedure Laterality Date [...] sig growth found documented in this encounter [facility] 06-18-2024 Telephone encounter Note Summary: Sav Received a mail from Sav with a notice on the Authorization for MRI, Brain, W/O Contrast Dated: 06/04/24 Status: Approve Service Requested: MRI, Brain, W/O Contrast Effective Dates: 06/04/2024 - 09/01/2024 Reference #: [id number] Uploaded into scan docs. Please allow time for upload. [facility] 06-18-2024 Miscellaneous Notes Summary: Sav Received a mail from Sav with a notice on the Authorization for MRI, Brain, W/O Contrast Dated: 06/04/24 Status: Approve Service Requested: MRI, Brain, W/O Contrast Effective Dates: 06/04/2024 - 09/01/2024 Reference #: [id number] Uploaded into scan docs. Please allow time for upload. documented in this encounter [facility] 05-07-2024 History of Present illness Narrative Consults [...] history of stroke -Up to date with [facility] follow up yearly he did this yearly [...] which included preparing to see the patient, ruao-mr-lybt patient care, completing clinical documentation, obtaining and [...] Mandie Salamanca MD documented in this encounter [facility] Work Phone: 04-14-2024 Procedure note [facility] 04-01-2024 Note In light pt LDL 98.8 with noted moderate carotid stenosis and DM will increase statin- he states lipitor 40 mg in past caused myalgias therefore will switch to crestor 40 mg daily, repeat Carotid US to assess stenosis and LFT with lipid level in 3 months- he voiced agreement and understanding to call office for any myalgias or concerns [facility] 04-01-2024 Note [id number]= 6 Continue eliquis anticoagulation. Continue coreg- rate is well controlled and pt remains in Sinus rhythm RTC [address] Espinoza [facility] 04-01-2024 Note Congestive heart martha lure due to NICM Heart failure is stable . NYHA Class II. Continue current treatment regimen. Dietary sodium restriction. Encouraged daily monitoring of the patient's weight. Regular aerobic exercise. Continue current medications. Refer to Cardiology. Heart failure will be reassessed in 6 months. Currently euvolemic without exacerbation [facility] 04-01-2024 Note Remains is sinus rhy thm on ECG today [facility] 04-01-2024 Note Diabetes is uncontro lled A1C 9.6 in December- states that he eats doughnuts most mornings, and that his diet could be better F/U with PCP [facility] 04-01-2024 Note [facility] CARDIOLOGY PROGR [...] 10/15 and he went to the [facility] emergency department was found to be [...] moist. Eyes: E (more content not included)... [facility] 10-29-2023 Evaluation note Encounter Date [...] improved w present med increase in dose. [facility] Other 11-03-2023 Evaluation note* Encounter Date Diagnosis Assessment Notes Treatment Notes Treatment Clinical Notes Sep, Anxiety (ICD-10 - F41.9) [facility] Other 10-31-2023 Evaluation note* Encounter Date Diagnosis Assessment Notes Treatment Notes Treatment Clinical Notes Aug, Anxiety (ICD-10 - F41.9) [facility] Other 10-09-2023 Evaluation note* Encounter Date Diagnosis [...] from 25mg to 50mg for better results. [facility] Other 11-30-2022 Chief complaint Narrative - Reported* [...] Patient presents for a follow up visit. QG-Klvsnpcpwddam-FFQ [address] Work Phone: [phone] 281-760108-22-2022 Miscellaneous Notes* Telephone Encounter - Janee Hughes - 07/02/2022 2:37 PM EDT Received Thyroid US report from [facility]. Indexed into chart. [facility] Chief complaint Narrative - Reported* An interactive [...] follow-up for hypothyroidism, pituitary, and diabetes today. [facility] [address] Work Phone: Evaluation noteNo [employer] Other Evaluation note* Diagnosis Onset Date Resolution Status Bronchitis noneactive Constipation acute Incontinence of feces with fecal urgency acute [facility] Work Phone: Evaluation note* Diagnosis Hypopituitarism (Multi)- Primary Panhypopituitarism Hypogonadism male Other testicular hypofunction Hyperparathyroidism (Multi) Hyperparathyroidism, unspecified Hyperprolactinemia (Multi) Other and unspecified anterior pituitary hyperfunction Type 2 diabetes mellitus without complication, with long-term current use of insulin (Multi) Thyroid nodule Nontoxic uninodular goiter documented in this encounter [facility] Work Phone: Evaluation note* Diagnosis Thyroid nodule (CMS/HCC)- Primary Nontoxic uninodular goiter documented in this encounter [facility] Author Merly Paul [facility] April 14, 2024 11:26am Note Date/Time April 14, 2024 11:26 am [facility] [address] [place] [address] Gastroenterology H&P Signed Patient: Gadiel Smith MR#: [id number] : 1950 Acct:[id number] Age/Sex: 73 / M Adm Date: 4 Loc: Room: Type: [facility] Attending Dr: Merly Paul DO Copies [...] signed by Merly Paul DO> 04/14/24 1126 [facility] Work Phone: [employer] general Narrative - Reported* Type Description Date Medical History Diabetes mellitus Medical History Hyperlipemia Medical History Acid reflux Medical History Hiatal hernia Medical History Pituitary tumor Surgical History knee surgery Surgical History shoulder surgery Surgical History thyroid nodule removed Hospitalization History hematoma related to fall 2011 Hospitalization History TIA 03/2020 Hospitalization History DEHYDRATION 09/2020 [facility] Other History of Present illness Narrative* This [...] * -Most recent US on 12/2019 in [place], records not available * -Due for US [...] on file * Occupational History * Occupation: [employer] * Employer: [employer] * Comment: retired * Tobacco Use * Smoking status: Former Smoker * Years: 16.00 * Quit date: 12/12/1992 * Years since quittin.1 * Smokeless tobacco: Never Used * Substance and Sexual Activity * Alcohol use: No * Drug use: No * Sexual activity: Not on file * Other Topics * Concerns: * Not on file * Social History Narrative * 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 [facility] [address] Work Phone: History of Present [...] * -Most recent US on 12/2019 in [place], records not available * -Due for US [...] on file * Occupational History * Occupation: 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 [id number] Work Phone: Summary Purpose Family [...] [place] [address] [facility] Department [place] [address] Referral ID Status Reason Start Date Expiration Date Visits Requested Visits Authorized [id number] Pending Review Perform Procedure 05/07/2024 05/07/2025 1 1 Specialty Diagnoses / Procedures Referred By Saeid vences Referred To Contact Radiology Diagnoses Hypopituitarism (Multi) Hypogonadism male Hyperparathyroidism (Multi) Hyperprolactinemia (Multi) Type 2 diabetes mellitus without complication, with long-term current use of insulin (Multi) Thyroid nodule [place] [address] [facility] Department [place] [address] Referral ID Status Reason Start Date Expiration Date Visits Requested Visits Authorized [id number] Authorized Perform Procedure 05/07/2024 05/07/2025 1 1 Additional Source Comments (unrecognized sect ion and content) No Status Records FoundNo Status Records FoundNo Status Records FoundNo Status Records FoundNo Status Records FoundNo Status Records FoundNo Status Records FoundNo Status Records Found INFORMATION SOURCE (unrecogn ized section and content) DATE CREATED AUTHOR 05/07/2018 [facility] DATE CREATED AUTHOR AUTHOR'S ORGANIZ ATION 10/11/2022 [facility] DATE CREATED AUTHOR AUTHOR'S ORGANIZ ATION 10/11/2022 [facility] DATE CREATED AUTHOR AUTHOR'S ORGANIZ ATION 03/04/2023 [facility] DATE CREATED AUTHOR AUTHOR'S ORGANIZ ATION 04/22/2024 [facility] DATE CREATED AUTHOR AUTHOR'S ORGANIZ ATION 06/21/2024 [facility] DATE CREATED AUTHOR AUTHOR'S ORGANIZ ATION 07/15/2024 [facility] DATE CREATED AUTHOR AUTHOR'S ORGANIZ ATION 09/18/[address] [facility] Source Comments (unrecognize d section and content) In the event this informatio n is protected by the Federal Confidentiality of Alcohol and Drug Abuse Patient Records regulations: The Federal rules restrict any use of the information to criminally investigate or prosecute any alcohol or drug abuse patient[facility] the event this information is protected by the Federal Confidentiality of Alcohol and Drug Abuse Patient Records regulations: The Federal rules restrict any use of the information to criminally investigate or prosecute any alcohol or drug abuse patient.[facility] Reason for Visit (unrecogniz ed section and content) Reason Comments Received Outside Medical Records Receive d Thyroid US report from [facility]. Indexed into chart. Reason Comments Insurance Authorization [place] Reason Comments Follow-up Pituitary Problem Reason Comments Thyroid Nodule Ultrasound 06/09/24. Care Teams (unrecognized sec tion and content) Humidifier Maintenance Worker Relationship Specialty Start Date End Date Cabrera [...] Other Provider Active Start: April 14, 2024 Humidifier Maintenance Worker Relationship Specialty Start Date End Date Cabrera Dupont MD PCP - General Family Medicine 01/21/19 Humidifier Maintenance Worker Relationship Specialty Start Date End Date Cabrera Dupont MD [address] [place] [address] PCP - General 11/30/20 Humidifier Maintenance Worker Relationship Specialty Start Date End Date Joseluis Quiroz MD [address] [place] [address] PCP - [facility] Medicine 03/23/24 Humidifier Maintenance Worker Relationship Specialty Start Date End Date Joseluis Quiroz MD [address] [place] [address] PCP - General Family Medicine 03/23/24 [...] BE BASED ON THE PRIMARY CLINICAL RECORDS. [facility] [employer] provides no warranty or guarantee of the accuracy or completeness of information in this document.
== END 2024-12-23 12:18 | disposition home or self-care (01) ==
LOC: US 12:17
PROVIDERS: PCP Family Medicine; Visit Provider Otolaryngology
DX: E04.1 Nontoxic single thyroid nodule (principal)
CPT/HCPCS: 76536

== ENCOUNTER 2025-04-15 08:40 | Outpatient (OUT) | payer MEDICARE, SELFPAY ==
--- OUTSIDE RECORDS SUMMARY | 2015-10-17 08:10 | XMS_ITS | Continuity of Care Document ---
Author Organization [facility] Address [address] [place] [address] Phone Care Team Providers Care Utility Manager Name Role Phone Eva GUILLORY, Radha Unavailable Unavailable Allergies, Adverse Reactions, Alerts Substance Reaction Status Criticality No Known Allergies Active No Inform ation Medications Medication Instructions Dosage Effective Dates (start - stop) Status Comments APPLE CIDER VINEGAR (unknown strength) daily Not Available - Active multivitamin tablet take 1 tablet by oral route every day with food - Active levothyroxine 75 mcg tablet /2 tab daily - Active Victoza 2-Edgardo 0.6 mg/0.1 mL (18 mg/3 mL) subcutaneous pen injector inject 0.2 milliliter by subcutaneous route every day - Active glimepiride 2 mg tablet take 1 tablet by oral route 2 times every day - Active metformin 1,000 mg tablet take 1 tablet by oral route 2 times every day with morning and evening meals - Active bupropion HCl SR 150 mg tablet,sustained-re lease take 1 tablet by oral route 2 times every day - Active Nexium 24HR 22.3 mg capsule,delayed release qd - Active simvastatin 20 mg tablet take 1 tablet by oral route every day in the evening 20 MG - Active cabergoline 0.5 mg tablet every other day - Active Tirosint 75 mcg capsule 1/2 daily - No Longer Active Procedures Procedure Date Fluorescein Angiography Fundus Photos New Patient, Moderate Advance Directives Directive Yes / No Effective Date File Name No Information Encounters Encounter Description Practice Location Reason(s) For Visit Diagnoses Date Provider Providers Copied on Encounter New Patient, Moderate [facility], [address] [place], [address], [place] tel:[phone] HOWARD [place] second opinion for ERM (chief complaint) fuzzy spot (chief complaint) Blood pressure reading (chief complaint) Type 2 diabetes mellitus w/o complicationPuckering of macula, left eyeSecondary pigmentary degeneration, bilateralAge-related nuclear cataract, bilateral [address], [address], [place], [place], [id number] , [place]. tel:[phone] Specialist : Carrington Bran, [address] [place], [address]. tel:[phone] erring Provider: Carrington Bran [facility] [place], [address]. tel:[phone] Family History Family Member Type Diagnosis Age At Onset Problem (finding) Family history of Breas t Problem (finding) Family history of Diabe ángel mellitus Problem (finding) Family history of malignant neoplasm of urinary bladder Problem (finding) Family history of malignant neoplasm of pancreas Payers Payer name Insurance type Covered constitution party ID Authoriza tion(s) No Information Social History Type Description Quantity Date Captured Comments Alcohol Use Details No Caffeine Use Details > 6 cups per day 15 Tobacco Use Status Ex-cigarette smoker 015 Smoking Status Former smoker Non-Smoking Tobacco Use Details : No Details Available : No Details Available Sex Male Vital Signs Date / Time: Height Weight BMI Pulse Rate Blood Pressure Temperature Respiratory Rate Body Surface Area Head Circumference Head Circ. Percentile Wt./Brian. Percentile BMI percentile Pulse Ox Inhaled Ox 12:32 PM 132/77 mm[Hg] Chief Complaint And Reason For Visit From encounter dated '10/17/2015 12:10'. second opinion for ERM (chief complaint). Description: The 65 year old male presents for a second opinion for ERM in the left eye. fuzzy spot (chief complaint). Description: The patient reports a fuzzy spot in the left eye. It started about 2 months ago. The onset was sudden. It affects both near and far vision. The symptom is constant. The condition is severe. In addition, the condition is associated with daily activity and chores. The patient denies flashes and floaters. Blood pressure reading (chief complaint). Description: Blood pressure reading was 132/77 and this morning blood sugar was 179. Last A1C was taken in August 2015 at a reading below 7. Reason For Referral Reason For Referral No Information History Of Present Illness Encounter Date Complaint History Of Prese nt Illness fuzzy spot The patient repo rts a fuzzy spot in the left eye. It started about 2 months ago. The onset was sudden. It affects both near and far vision. The symptom is constant. The condition is severe. In addition, the condition is associated with daily activity and chores. The patient denies flashes and floaters. Blood pressure reading Blood pre ssure reading was 132/77 and this morning blood sugar was 179. Last A1C was taken in August 2015 at a reading below 7. second opinion for ERM The 65 ye ar old male presents for a second opinion for ERM in the left eye. Functional Status Date Functional Assessmen t No Information Instructions Date Instruction Additional Infor reji - Macular Pucker was noted on examination today and explained to the patient. Surgical intervention is not indicated at this time. The patient was advised to return to Dr. Bran for ongoing observation and to call with vision changes. Related to Puckering of macula, left eye - No evidence of obdulia betic retinopathy was noted on examination today and discussed with the patient. Discussed ocular and systemic benefits of blood sugar control as well as the importance of follow up compliance from a retinal standpoint and with the PCP/[facility]. Related to Type 2 diabetes mellitus w/o complication - Advised that he re turn to Dr. Bran for ongoing observation. Related to Secondary pigmentary degeneration, bilateral - Regular follow up appointments with the patient's comprehensive eye doctor was again recommended, to monitor the patients cataract for progression. It is acceptable for him to get new glasses and referral for surgical intervention is not indicated at this time. Related to Age-related nuclear cataract, bilateral - Advised that he re turn to Dr. Bran for ongoing care. Return PRN with Dr. Velasquez. Related to Puckering of macula, left eye Assessments Type Assessment Date assessment Type 2 diabetes mellitus w/o com plication assessment Puckering of macula, left eye De assessment Secondary pigmentary degeneratio n, bilateral assessment Age-related nuclear cataract, bi lateral Patient Care Teams Name Effective Dates (start - stop) Status Members No Information
--- OUTSIDE RECORDS SUMMARY | 2024-09-05 17:30 | XMS_ITS ---
Author Organization [place] [facility] Address [address] [place] [phone] Care Team Providers Care Belting Inspector Name Role Phone Cabrera Calderón Unavailable [phone] . Unavailable Unavailabl e Migration, Provider Unavailable Unavailable REASON FOR VISIT [facility] To [facility] Conversion Encounter Medications Medication SIG (Take, Route, Frequency, Duration) Notes Start Date End Date Status NexIUM 20 MG 1 cap(s) orally once a day Active metFORMIN HCl 1000 MG 1 tab(s) orally 2 times a day Active ANDROGEL *Please review f or potential replacement for e-prescription and drug interaction check* Active Cabergoline 0.5 MG 1 tab(s) orally 2 times a week Active Simvastatin 20 MG 1 tab(s) orally once a day (at bedtime) Active Wellbutrin XL 150 MG 1 tab(s) orally every 24 hours Active Encounters Encounter Location Date Provider Diagnosis [facility] [address] [id number] 09/05/2024 Provider Migration Plan Of Treatment No Information Progress Notes * Gadiel LIANGDOB: (74 yo M)Acc No.[id number]:09/05/2024 Patient: Gadiel DONOVAN Provider: Thuan mares Migration :1950 A ge:74 Y S ex:Male Date:09/05/2024 [facility] [place] [id number] Subjective: * Chief Complaints: * 1 . [facility] To Medispan Conversion Encounter. * Medical History: * Medications: T aking Wellbutrin XL 150 MG Tablet Extended Release 24 Hour 1 tab(s) orally every 24 hours , Taking Simvastatin 20 MG Tablet 1 tab(s) orally once a day (at bedtime) , Taking Cabergoline 0.5 MG Tablet 1 tab(s) orally 2 times a week , Taking ANDROGEL , Notes to Pharmacist: *Please review for potential replacement for e-prescription and drug interaction check*, Taking metFORMIN HCl 1000 MG Tablet 1 tab(s) orally 2 times a day , Taking NexIUM 20 MG Capsule Delayed Release 1 cap(s) orally once a day Objective: * Vitals: Assessment: Plan: * Treatment: * Billing Information: * Visit Code: * Procedure Codes: * Electronic signature of Prov ider Migration on 04/15/2025 at 05:50 AM [facility] Sign off status: Pending * Provider: Thuan mares Migration Date: 1 Generated for Westley correa/Violet/Mike on: 0 04/15/2025 05:50 AM [facility]
--- OUTSIDE RECORDS SUMMARY | 2025-04-15 08:50 | XMS_ITS | Encounter Summary ---
Author Organization [facility] Address [facility] [place] [address] Care Team Providers Care Customer Advocate Name Role Phone Carlos Andersen DO Primary Care Provider Mandie Osborne MD Unavailable [phone] Cabrera Dupont MD Primary Care Provider [phone] Source Comments In the event this information is protected by the Federal Confidentiality of Alcohol and Drug AbusePatient Records regulations: The Federal rules restrict any use of the information to criminally investigate or prosecute any alcohol or drug abuse patient.[facility] Encounter Details Date Type Department Care Team (Late st Contact Info) Description 05/27/2014 Patient Msg Medical Records [address] [place] [id number] Provider, Ccf Social History Tobacco Use Types Packs/Day Years Used Date Smoking Tobacco: Former Cigarettes 0 12/12/1976 - 12/12/1992 Smokeless Tobacco: Never Alcohol Use Standard Drinks/Week Comments No 0 (1 standard drink = 0.6 oz pur e alcohol) Sex and Gender Information Value Date Recorded Sex Assigned at Not on file Legal Sex Male 8:26 AM EST Gender Identity Not on file Sexual Orientation Not on file Occupation Industry Job Start Date Job End Date [employer] Not on file Not on file Not on file documented as of this encounter Functional Status * Are you deaf or do you have serious difficulty hearing? Answer Date of Assessment Author Yes 05/13/2014 2:05 PM Colette Encarnacion RN * Are you blind or do you have serious difficulty seeing, even when wearing glasses? Answer Date of Assessment Author No 05/13/2014 2:05 PM Colette Encarnacion RN * Do you have serious difficulty walking or climbing stairs? Answer Date of Assessment Author No 05/13/2014 2:05 PM Colette Encarnacion RN * Do you have difficulty dressing or bathing? Answer Date of Assessment Author No 05/13/2014 2:05 PM Colette Encarnacion RN * Because of a physical, mental, or emotional condition, do you have difficulty doing errands alone such as visiting a doctor's office or shopping? Answer Date of Assessment Author No 05/13/2014 2:05 PM Colette Encarnacion RN documented as of this encounter Mental Status * Because of a physical, mental, or emotional condition, do you have serious difficulty concentrating, remembering, or making decisions? Answer Entry Date Author No 05/13/2014 2:05 PM Colette Encarnacion RN documented in this encounter Plan of Treatment Not on file documented as of this encounter Visit Diagnoses Not on filedocumented in this encounter Care Teams Customer Advocate Relationship Specialty Start Date End Date Carlos Andersen DO PCP - General Family Medicine 05/13/14 01/20/19 Cabrera Dupont MD PCP - General Family Medicine 01/21/19 Mandie Osborne MD Primary Staff Physician Cardiology 02/09/15 6 documented as of this encounter
--- OUTSIDE RECORDS SUMMARY | 2025-04-15 08:50 | XMS_ITS | Encounter Summary ---
Author Organization [facility] Address [address] [place] [address] Care Team Providers Care Product Accountant Name Role Phone GaneshCarlos DO Primary Care Provider Mandie Osborne MD Unavailable [phone] Cabrera Dupont MD Primary Care Provider [phone] Source Comments In the event this information is protected by the Federal Confidentiality of Alcohol and Drug AbusePatient Records regulations: The Federal rules restrict any use of the information to criminally investigate or prosecute any alcohol or drug abuse patient.[facility] Encounter Details Date Type Department Care Team (Late st Contact Info) Description 04/16/2015 Get Medical Advice Endocrinology [address] [place] [address] Mandie Osborne MD [address] [facility] [address] [address] RE: Medication Question (Not Renewal) Social History Tobacco Use Types Packs/Day Years [...] hearing? Answer Date of Assessment Author Yes 02/23/2015 1:39 PM EDT Caio, Radha jesenia L, HIDE MEASURING MACHINE OPERATOR * Are you blind or do you have serious difficulty seeing, even when wearing glasses? Answer Date of Assessment Author No 02/23/2015 1:39 PM EDT Caio, Radha jesenia L, HIDE MEASURING MACHINE OPERATOR * Do you have serious difficulty walking or climbing stairs? Answer Date of Assessment Author No 02/23/2015 1:39 PM EDT Caio, Radha jesenia L, HIDE MEASURING MACHINE OPERATOR * Do you have difficulty dressing or bathing? Answer Date of Assessment Author No 02/23/2015 1:39 PM EDT Caio, Radha jesenia L, HIDE MEASURING MACHINE OPERATOR * Because of a physical, mental, or emotional condition, do you have difficulty doing errands alone such as visiting a doctor's office or shopping? Answer Date of Assessment Author No 02/23/2015 1:39 PM EDT Caio, Radha jesenia L, HIDE MEASURING MACHINE OPERATOR documented as of this encounter Mental Status * Because of a physical, mental, or emotional condition, do you have serious difficulty concentrating, remembering, or making decisions? Answer Entry Date Author No 02/23/2015 1:39 PM EDT Radha Kearney jesenia L, HIDE MEASURING MACHINE OPERATOR documented in this encounter Miscellaneous Notes * Telephone Encounter - Kristen Turner) - 04/18/2015 8:09 AM EDT I left a voice message with patient concerning quantity of medication. According to chart, the medication has been filled for a 90 day supply. Kristen Turner Ma documented in this encounter Plan of Treatment Not on file documented as of this encounter Visit Diagnoses Not on filedocumented in this encounter Care Teams Product Accountant Relationship Specialty Start Date End Date Carlos Andersen DO PCP - General Family Medicine 05/13/14 01/20/19 Cabrera Dupont MD PCP - General Family Medicine 01/21/19 Mandie Osborne MD Primary Staff Physician Cardiology 02/09/15 6 documented as of this encounter
--- OUTSIDE RECORDS SUMMARY | 2025-04-15 08:50 | XMS_ITS | Encounter Summary ---
Author Organization [facility] Address [facility] [place] [address] Care Team Providers Care Retail Sales Advisor Name Role Phone Carlos Andersen DO Primary Care Provider Mandie Osborne MD Unavailable Cabrera Dupont MD Primary Care Provider [phone] Source Comments In the event this information is protected by the Federal Confidentiality of Alcohol and Drug AbusePatient Records regulations: The Federal rules restrict any use of the information to criminally investigate or prosecute any alcohol or drug abuse patient.[facility] Encounter Details Date Type Department Care Team (Late st Contact Info) Description 03/03/2015 Patient Msg Medical Records [address] [place] [id number] Provider, Ccf lab orders and appointment Social History Tobacco Use Types Packs/Day Years [...] Assessment Author Yes 02/23/2015 1:39 PM EDT Radha Kearneysa L, QUALITY ASSURANCE SUPERVISOR BODY * Are you blind or do you have serious difficulty seeing, even when wearing glasses? Answer Date of Assessment Author No 02/23/2015 1:39 PM EDT Caio, Radha jesenia L, QUALITY ASSURANCE SUPERVISOR BODY * Do you have serious difficulty walking or climbing stairs? Answer Date of Assessment Author No 02/23/2015 1:39 PM EDT Caio, Radha jesenia L, QUALITY ASSURANCE SUPERVISOR BODY * Do you have difficulty dressing or bathing? Answer Date of Assessment Author No 02/23/2015 1:39 PM EDT Caio, Radha jesenia L, QUALITY ASSURANCE SUPERVISOR BODY * Because of a physical, mental, or emotional condition, do you have difficulty doing errands alone such as visiting a doctor's office or shopping? Answer Date of Assessment Author No 02/23/2015 1:39 PM EDT Caio, Radha jesenia L, QUALITY ASSURANCE SUPERVISOR BODY documented as of this encounter Mental Status * Because of a physical, mental, or emotional condition, do you have serious difficulty concentrating, remembering, or making decisions? Answer Entry Date Author No 02/23/2015 1:39 PM EDT Radha Kearney jesenia L, QUALITY ASSURANCE SUPERVISOR BODY documented in this encounter Plan of Treatment Not on file documented as of this encounter Visit Diagnoses Not on filedocumented in this encounter Care Teams Retail Sales Advisor Relationship Specialty Start Date End Date Carlos Andersen DO PCP - General Family Medicine 05/13/14 01/20/19 Cabrera Dupont MD PCP - General Family Medicine 01/21/19 Mandie Osborne MD Primary Staff Physician Cardiology 02/09/15 6 documented as of this encounter
--- OUTSIDE RECORDS SUMMARY | 2025-04-15 08:50 | XMS_ITS | Encounter Summary ---
Author Organization [facility] Address [address] [place] [address] Care Team Providers Care Ticker Maintainer Name Role Phone GaneshCarlos DO Primary Care Provider Mandie Osborne MD Unavailable [phone] Cabrera Dupont MD Primary Care Provider [phone] Source Comments In the event this information is protected by the Federal Confidentiality of Alcohol and Drug AbusePatient Records regulations: The Federal rules restrict any use of the information to criminally investigate or prosecute any alcohol or drug abuse patient.[facility] Encounter Details Date Type Department Care Team (Late st Contact Info) Description 02/25/2015 Get Medical Advice Endocrinology [address] [place] [address] Mandie Osborne MD [address] [facility] [address] [address] RE: Test Result Question Social History Tobacco Use Types Packs/Day Years [...] 1:39 PM EDT Caio, Radha jesenia L, RN LAB * Are you blind or do you have serious difficulty seeing, even when wearing glasses? Answer Date of Assessment Author No 02/23/2015 1:39 PM EDT Caio, Va jesenia L, RN LAB * Do you have serious difficulty walking or climbing stairs? Answer Date of Assessment Author No 02/23/2015 1:39 PM EDT Caio, Radha jesenia L, RN LAB * Do you have difficulty dressing or bathing? Answer Date of Assessment Author No 02/23/2015 1:39 PM EDT Caio, Va jesenia L, RN LAB * Because of a physical, mental, or emotional condition, do you have difficulty doing errands alone such as visiting a doctor's office or shopping? Answer Date of Assessment Author No 02/23/2015 1:39 PM EDT Caio, Va jesenia L, RN LAB documented as of this encounter Mental Status * Because of a physical, mental, or emotional condition, do you have serious difficulty concentrating, remembering, or making decisions? Answer Entry Date Author No 02/23/2015 1:39 PM EDT Caio, Radha jesenia L, RN LAB documented in this encounter Plan of Treatment Not on file documented as of this encounter Visit Diagnoses Not on filedocumented in this encounter Care Teams Ticker Maintainer Relationship Specialty Start Date End Date Carlos Andersen DO PCP - General Family Medicine 05/13/14 01/20/19 Cabrera Dupont MD PCP - General Family Medicine 01/21/19 Mandie Osborne MD Primary Staff Physician Cardiology 02/09/15 6 documented as of this encounter
--- OUTSIDE RECORDS SUMMARY | 2025-04-15 08:50 | XMS_ITS | Encounter Summary ---
Author Organization [facility] Address [address] [place] [address] Care Team Providers Care Partnership Marketing Manager Name Role Phone GaneshCarlos DO Primary Care Provider Mandie Osborne MD Unavailable [phone] Cabrera Dupont MD Primary Care Provider [phone] Source Comments In the event this information is protected by the Federal Confidentiality of Alcohol and Drug AbusePatient Records regulations: The Federal rules restrict any use of the information to criminally investigate or prosecute any alcohol or drug abuse patient.[facility] Encounter Details Date Type Department Care Team (Late st Contact Info) Description 09/12/2014 Get Medical Advice Endocrinology [address] [place] [address] Mandie Osborne MD [address] [facility] [address] [address] RE: Non-Urgent Medical Question Social History Tobacco Use Types Packs/Day [...] on filedocumented in this encounter Care Teams Partnership Marketing Manager Relationship Specialty Start Date End Date Carlos Andersen DO PCP - General Family Medicine 05/13/14 01/20/19 Cabrera Dupont MD PCP - General Family Medicine 01/21/19 Mandie Osborne MD Primary Staff Physician Cardiology 02/09/15 6 documented as of this encounter
--- OUTSIDE RECORDS SUMMARY | 2025-04-15 08:50 | XMS_ITS | Encounter Summary ---
Author Organization [facility] Address [facility] [place] [address] Care Team Providers Care Hr Shared Services Consultant Name Role Phone Carlos Andersen DO Primary Care Provider Mandie Osborne MD Unavailable [phone] Cabrera Dupont MD Primary Care Provider [phone] Source Comments In the event this information is protected by the Federal Confidentiality of Alcohol and Drug AbusePatient Records regulations: The Federal rules restrict any use of the information to criminally investigate or prosecute any alcohol or drug abuse patient.[facility] Encounter Details Date Type Department Care Team (Late st Contact Info) Description 09/02/2015 Patient Msg Medical Records [address] [place] [id number] Provider, Ccf Social History Tobacco Use Types [...] hearing? Answer Date of Assessment Author Yes 04/28/2015 11:27 AM Jolene Cruz Ma * Are you blind or do you have serious difficulty seeing, even when wearing glasses? Answer Date of Assessment Author Yes 04/28/2015 11:27 AM Jolene Cruz Ma * Do you have serious difficulty walking or climbing stairs? Answer Date of Assessment Author No 04/28/2015 11:27 AM ARIKJolene Medina Ma * Do you have difficulty dressing or bathing? Answer Date of Assessment Author No 04/28/2015 11:27 AM Jolene Cruz Ma * Because of a physical, mental, or emotional condition, do you have difficulty doing errands alone such as visiting a doctor's office or shopping? Answer Date of Assessment Author No 04/28/2015 11:27 AM Jolene Cruz Ma documented as of this encounter Mental Status * Because of a physical, mental, or emotional condition, do you have serious difficulty concentrating, remembering, or making decisions? Answer Entry Date Author No 04/28/2015 11:27 AM Jolene Cruz Ma documented in this encounter Plan of Treatment Not on file documented as of this encounter Visit Diagnoses Not on filedocumented in this encounter Care Teams Hr Shared Services Consultant Relationship Specialty Start Date End Date Carlos Andersen DO PCP - General Family Medicine 05/13/14 01/20/19 Cabrera Dupont MD PCP - General Family Medicine 01/21/19 Mandie Osborne MD Primary Staff Physician Cardiology 02/09/15 6 documented as of this encounter
--- OUTSIDE RECORDS SUMMARY | 2025-04-15 08:50 | XMS_ITS | Encounter Summary ---
Author Organization [facility] Address [facility] [place] [address] Care Team Providers Care Canvas Goods Supervisor Name Role Phone Feliz Mitchell Jr. Primary Care Provider Unava Carlos Bowman DO Primary Care Provider Mandie Osborne MD Unavailable [phone] Cabrera Dupont MD Primary Care Provider [phone] Source Comments In the event this information is protected by the Federal Confidentiality of Alcohol and Drug AbusePatient Records regulations: The Federal rules restrict any use of the information to criminally investigate or prosecute any alcohol or drug abuse patient.[facility] Encounter Details Date Type Department Care Team (Late st Contact Info) Description 03/26/2012 Patient Msg Medical Records [address] [place] [address] Provider, Ccf Social History Tobacco Use Types Packs/Day Years Used Date Smoking Tobacco: Former Cigarettes 0 12/12/1976 - 12/12/1992 Alcohol Use Standard Drinks/Week Comments No 0 (1 standard drink = 0.6 oz pur e alcohol) Sex and Gender Information Value Date Recorded Sex Assigned at Not on file Legal Sex Male 8:26 AM EST Gender Identity Not on file Sexual Orientation Not on file documented as of this encounter Plan of Treatment Not on file documented as of this encounter Visit Diagnoses Not on filedocumented in this encounter Care Teams Canvas Goods Supervisor Relationship Specialty Start Date End Date Feliz Mitchell Jr. PCP - General Family Medicine 03/25/12 05/12/14 Carlos Andersen DO PCP - General Family Medicine 05/13/14 01/20/19 Cabrera Dupont MD PCP - General Family Medicine 01/21/19 Mandie Osborne MD Primary Staff Physician Cardiology 02/09/15 6 documented as of this encounter
--- OUTSIDE RECORDS SUMMARY | 2025-04-15 08:50 | XMS_ITS | Encounter Summary ---
Author Organization [facility] Address [address] [place] [address] Care Team Providers Care Room Maid Name Role Phone Carlos Andersen DO Primary Care Provider Cabrera Dupont MD Primary Care Provider [phone] Source Comments In the event this information is protected by the Federal Confidentiality of Alcohol and Drug AbusePatient Records regulations: The Federal rules restrict any use of the information to criminally investigate or prosecute any alcohol or drug abuse patient.[facility] Encounter Details Date Type Department Care Team (Late st Contact Info) Description 09/14/2018 Get Medical Advice Endocrinology [address] [place] [address] Mandie Osborne MD [address] [facility] [address] [address] RE: Medication Question (Not Renewal) [...] Jolene Cruz Ma * Do you have difficulty dressing [...] Jolene Cruz Ma documented in this encounter Miscellaneous Notes * Telephone Encounter - Silvio Benson - 09/16/2018 1:11 PM EST Celebrex should be ordered by his new PCP. Patient's request for medication is as follows: Signed Prescriptions Disp Refills blood sugar diagnostic (ACCU-CHEK LUIS ANGEL PLUS TEST STRP) test strip 100 Each 1 Sig: Use as instructed Lancets (ACCU-CHEK SOFTCLIX LANCETS) lancets 100 Each 1 Sig: Use as instructed Prescription(s) as above. Please process accordingly. 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
--- OUTSIDE RECORDS SUMMARY | 2025-04-15 08:50 | XMS_ITS | Clinical Summary ---
Author Organization [facility] Address [id number] [address] [place] [address] Care Team Providers Care Weed Science Research Technician Name Role Phone Haritha Argueta MD Primary Care Provider [phone] Allergies No known active allergies Medications apixaban (ELIQUIS) 5 mg tablet Take 1 tablet (5 mg total) by mouth in the morning and 1 tablet (5 mg total) before bedtime. Active atorvastatin (LIPITOR) 20 mg tablet Take 1 tablet (20 mg total) by mouth in the morning. Active buPROPion SR (WELLBUTRIN SR) 150 mg 12 hr tablet Take 1 tablet (150 mg total) by mouth in the morning and 1 tablet (150 mg total) before bedtime. Active cabergoline (DOSTINEX) 0.5 mg tablet Take 0.5 tablets (0.25 mg total) by mouth 2 (two) times a week. Active esomeprazole (NexIUM) 40 mg capsule Take 1 capsule (40 mg total) by mouth every morning before breakfast. Active furosemide (LASIX) 20 mg tablet Take 1 tablet (20 mg total) by mouth daily. Active insulin glargine,hum.re c.anlog (LANTUS SOLOSTAR U-100 INSULIN SUBQ) Inject under the skin. Active levothyroxine (SYNTHROID, LEVOTHROID) 75 MCG tablet Take 1 tablet (75 mcg total) by mouth in the morning. Active lisinopriL (PRINIVIL,ZESTR IL) 5 mg tablet Take 1 tablet (5 mg total) by mouth in the morning. Active metFORMIN (GLUCOPHAGE) 500 mg tablet Take 1 tablet (500 mg total) by mouth in the morning and 1 tablet (500 mg total) before bedtime. Active metoprolol succinate XL (TOPROL XL) 50 mg 24 hr tablet Take 1 tablet (50 mg total) by mouth in the morning. Active sildenafiL (VIAGRA) 25 mg tablet Take 1 tablet (25 mg total) by mouth daily as needed for erectile dysfunction. Active spironolactone (ALDACTONE) 25 mg tablet Take 1 tablet (25 mg total) by mouth in the morning. Active Social History Tobacco Use Types Packs/Day Years Used Date Smoking Tobacco: Never Assessed Childcare Answer Date Recorded Childcare Unknown 04/22/2019 Employment Answer Date Recorded Employment Unknown 04/22/2019 Purpose - Life Answer Date Recorded Purpose and direction in life Unknown Sex and Gender Information Value Date Recorded Sex Assigned at Male 11/10/2022 8:49 AM EST Legal Sex Male 11:59 AM EDT Gender Identity Male 11/10/2022 8:49 AM EST Sexual Orientation Not on file Plan of Treatment Health Maintenance Due Date Last Done Comments Depression Screening 1962 Tobacco Screening 1963 Adult BMI Screening 1969 DTaP,Tdap and Td Vaccines (1 - Tdap) 1970 Fall Risk Screening 2016 Zoster (Shingles) Vaccine (3 of 3) 10/07/2017 08/12/2017, 08/04/2014 COVID-19 Vaccine (2 - 2023-2 5 season) 2024 01/18/2021 Influenza Vaccine 07/12/2025 08/15/2022, , 09/08/2020, Additional history exists Medical Devices Not on file Insurance [employer] Care Teams Weed Science Research Technician Relationship Specialty Start Date End Date Haritha Argueta MD [address] [place] [address] PCP - General Family Medicine 10/31/22
--- OUTSIDE RECORDS SUMMARY | 2025-04-15 08:50 | XMS_ITS | Encounter Summary ---
Author Organization [facility] Address [address] [place] [address] Care Team Providers Care Faculty Physician Name Role Phone Carlos Andersen DO Primary Care Provider Cabrera Dupont MD Primary Care Provider [phone] Source Comments In the event this information is protected by the Federal Confidentiality of Alcohol and Drug AbusePatient Records regulations: The Federal rules restrict any use of the information to criminally investigate or prosecute any alcohol or drug abuse patient.[facility] Encounter Details Date Type Department Care Team (Late st Contact Info) Description 02/26/2017 Patient Msg Endocrinology [address] [place] [address] Mandie Osborne MD [address] [facility] [address] [address] Request an Appointment Social History Tobacco Use Types Packs/Day Years [...] on filedocumented in this encounter Care Teams Faculty Physician Relationship Specialty Start Date End Date Carlos Andersen DO PCP - General Family Medicine 05/13/14 01/20/19 Cabrera Dupont MD PCP - General Family Medicine 01/21/19 documented as of this encounter
--- OUTSIDE RECORDS SUMMARY | 2025-04-15 08:50 | XMS_ITS | Encounter Summary ---
Author Organization [facility] Address [address] [place] [address] Care Team Providers Care Oil Well Engineer Name Role Phone Carlos Andersen DO Primary Care Provider Cabrera Dupont MD Primary Care Provider [phone] Source Comments In the event this information is protected by the Federal Confidentiality of Alcohol and Drug AbusePatient Records regulations: The Federal rules restrict any use of the information to criminally investigate or prosecute any alcohol or drug abuse patient.[facility] Encounter Details Date Type Department Care Team (Late st Contact Info) Description 11/08/2016 Patient Msg Preventive Cardiology [address] [place] [address] Mandie Osborne MD [address] [address] Social History Tobacco Use Types Packs/Day Years [...] on filedocumented in this encounter Care Teams Oil Well Engineer Relationship Specialty Start Date End Date Carlos Andersen DO PCP - General Family Medicine 05/13/14 01/20/19 Cabrera Dupont MD PCP - General Family Medicine 01/21/19 documented as of this encounter
--- OUTSIDE RECORDS SUMMARY | 2025-04-15 08:50 | XMS_ITS | Encounter Summary ---
Author Organization [facility] Address [address] [place] [address] Care Team Providers Care Degreaser Name Role Phone Carlos Andersen DO Primary Care Provider Cabrera Dupont MD Primary Care Provider [phone] Source Comments In the event this information is protected by the Federal Confidentiality of Alcohol and Drug AbusePatient Records regulations: The Federal rules restrict any use of the information to criminally investigate or prosecute any alcohol or drug abuse patient.[facility] Encounter Details Date Type Department Care Team (Late st Contact Info) Description 10/24/2016 Get Medical Advice Endocrinology [address] [place] [address] Mandie Osborne MD [address] [address] RE: Medication Question (Not Renewal) [...] encounter Miscellaneous Notes * Telephone Encounter - Siria Hickey Ma - 10/24/2016 10:50 AM EST Encounter routed to staffing provider for consideration in absence of primary endocrine provider. documented in this encounter Plan of Treatment Not on file documented as of this encounter Visit Diagnoses Not on filedocumented in this encounter Care Teams Degreaser Relationship Specialty Start Date End Date Carlos Andersen DO PCP - General Family Medicine 05/13/14 01/20/19 Cabrera Dupont MD PCP - General Family Medicine 01/21/19 documented as of this encounter
--- OUTSIDE RECORDS SUMMARY | 2025-04-15 08:50 | XMS_ITS | Encounter Summary ---
Author Organization [facility] Address [address] [place] [address] Care Team Providers Care Pottery Machine Operator Name Role Phone Carlos Andersen DO Primary Care Provider Cabrera Dupont MD Primary Care Provider [phone] Source Comments In the event this information is protected by the Federal Confidentiality of Alcohol and Drug AbusePatient Records regulations: The Federal rules restrict any use of the information to criminally investigate or prosecute any alcohol or drug abuse patient.[facility] Encounter Details Date Type Department Care Team (Late st Contact Info) Description 09/03/2016 Patient Msg Medical Records [address] [place] [address] Provider, Ccf Social History Tobacco Use Types [...] on filedocumented in this encounter Care Teams Pottery Machine Operator Relationship Specialty Start Date End Date Carlos Andersen DO PCP - General Family Medicine 05/13/14 01/20/19 Cabrera Dupont MD PCP - General Family Medicine 01/21/19 documented as of this encounter
--- OUTSIDE RECORDS SUMMARY | 2025-04-15 08:50 | XMS_ITS | Encounter Summary ---
Author Organization [facility] Address [facility] [place] [address] Care Team Providers Care Trouble Lineman Name Role Phone Feliz Mitchell Jr. Primary Care Provider Unava Carlos Bowman DO Primary Care Provider Mandie Osborne MD Unavailable [phone] Cabrera Dupont MD Primary Care Provider [phone] Source Comments In the event this information is protected by the Federal Confidentiality of Alcohol and Drug AbusePatient Records regulations: The Federal rules restrict any use of the information to criminally investigate or prosecute any alcohol or drug abuse patient.[facility] Encounter Details Date Type Department Care Team (Late st Contact Info) Description 07/03/2013 Patient Msg Medical Records [address] [place] [address] Provider, Ccf RE:(No subject) Social History Tobacco Use Types Packs/Day Years [...] on filedocumented in this encounter Care Teams Trouble Lineman Relationship Specialty Start Date End Date Feliz Mitchell Jr. PCP - General Family Medicine 03/25/12 05/12/14 Carlos Andersen DO PCP - General Family Medicine 05/13/14 01/20/19 Cabrera Dupont MD PCP - General Family Medicine 01/21/19 Mandie Osborne MD Primary Staff Physician Cardiology 02/09/15 6 documented as of this encounter
--- OUTSIDE RECORDS SUMMARY | 2025-04-15 08:50 | XMS_ITS | Encounter Summary ---
Author Organization [facility] Address [address] [place] [address] Care Team Providers Care Ride Attendant Name Role Phone Carlos Andersen DO Primary Care Provider Cabrera Dupont MD Primary Care Provider [phone] Source Comments In the event this information is protected by the Federal Confidentiality of Alcohol and Drug AbusePatient Records regulations: The Federal rules restrict any use of the information to criminally investigate or prosecute any alcohol or drug abuse patient.[facility] Encounter Details Date Type Department Care Team (Late st Contact Info) Description 02/04/2017 Patient Msg Endocrinology [address] [place] [address] Mandie Osborne MD [address] [facility] [address] [address] RE: Request an Appointment Social History Tobacco Use [...] on filedocumented in this encounter Care Teams Ride Attendant Relationship Specialty Start Date End Date Carlos Andersen DO PCP - General Family Medicine 05/13/14 01/20/19 Cabrera Dupont MD PCP - General Family Medicine 01/21/19 documented as of this encounter
--- OUTSIDE RECORDS SUMMARY | 2025-04-15 08:50 | XMS_ITS | Encounter Summary ---
Author Organization [facility] Address [facility] [place] [address] Care Team Providers Care Bone Char Puller Name Role Phone Carlos Andersen DO Primary Care Provider Mandie Osborne MD Unavailable [phone] Cabrera Dupont MD Primary Care Provider [phone] Source Comments In the event this information is protected by the Federal Confidentiality of Alcohol and Drug AbusePatient Records regulations: The Federal rules restrict any use of the information to criminally investigate or prosecute any alcohol or drug abuse patient.[facility] Encounter Details Date Type Department Care Team (Late st Contact Info) Description 09/03/2014 Patient Msg Medical Records [address] [place] [address] Provider, Ccf Social History Tobacco Use Types [...] on filedocumented in this encounter Care Teams Bone Char Puller Relationship Specialty Start Date End Date Carlos Andersen DO PCP - General Family Medicine 05/13/14 01/20/19 Cabrera Dupont MD PCP - General Family Medicine 01/21/19 Mandie Osborne MD Primary Staff Physician Cardiology 02/09/15 6 documented as of this encounter
--- OUTSIDE RECORDS SUMMARY | 2025-04-15 08:50 | XMS_ITS | Encounter Summary ---
Author Organization [facility] Address [address] [place] [address] Care Team Providers Care Rn Cardiovascular Name Role Phone Carlos Andersen DO Primary Care Provider Cabrera Dupont MD Primary Care Provider Source Comments In the event this information is protected by the Federal Confidentiality of Alcohol and Drug AbusePatient Records regulations: The Federal rules restrict any use of the information to criminally investigate or prosecute any alcohol or drug abuse patient.[facility] Encounter Details Date Type Department Care Team (Late st Contact Info) Description 03/06/2017 Patient Msg Endocrinology [address] [place] [address] Mandie Osborne MD [address] [facility] [address] [address] RE: Request an Appointment Social [...] on filedocumented in this encounter Care Teams Rn Cardiovascular Relationship Specialty Start Date End Date Carlos Andersen DO PCP - General Family Medicine 05/13/14 01/20/19 Cabrera Dupont MD PCP - General Family Medicine 01/21/19 documented as of this encounter
--- OUTSIDE RECORDS SUMMARY | 2025-04-15 08:50 | XMS_ITS | Encounter Summary ---
Author Organization [facility] Address [facility] [place] [address] Care Team Providers Care Gas Turbine Powerplant Mechanic Name Role Phone Carlos Andersen DO Primary Care Provider Mandie Osborne MD Unavailable [phone] Cabrera Dupont MD Primary Care Provider [phone] Source Comments In the event this information is protected by the Federal Confidentiality of Alcohol and Drug AbusePatient Records regulations: The Federal rules restrict any use of the information to criminally investigate or prosecute any alcohol or drug abuse patient.[facility] Encounter Details Date Type Department Care Team (Late st Contact Info) Description 09/02/2015 Patient Msg Medical Records [address] [place] [address] Provider, Ccf RE: Request an Appointment Social History Tobacco [...] on filedocumented in this encounter Care Teams Gas Turbine Powerplant Mechanic Relationship Specialty Start Date End Date Carlos Andersen DO PCP - General Family Medicine 05/13/14 01/20/19 Cabrera Dupont MD PCP - General Family Medicine 01/21/19 Mandie Osborne MD Primary Staff Physician Cardiology 02/09/15 6 documented as of this encounter
--- OUTSIDE RECORDS SUMMARY | 2025-04-15 08:51 | XMS_ITS | Encounter Summary ---
Author Organization [facility] Address [address] [place] [address] Phone Care Team Providers Care Guest Laundry Attendant Name Role Phone Cabrera Dupont MD Primary Care Provider [phone] Encounter Details Date Type Department Care Team (Late st Contact Info) Description 06/27/2022 Orders Only [facility] [address] [place] [address] Conversion, Onbase Social History Tobacco Use Types Packs/Day Years Used Date Smoking Tobacco: Never Assessed Sex and Gender Information Value Date Recorded Sex Assigned at Male 06/16/2024 11:30 AM EDT Legal Sex Male 8:53 AM EST Gender Identity Male 06/16/2024 11:30 AM EDT Sexual Orientation Straight 06/16/2024 11 :30 AM EDT documented as of this encounter Plan of Treatment Scheduled Orders Name Type Priority Associated Diagnoses Orde r Schedule OUTSIDE LAB SCAN Lab Ordered: 06/27/2022 documented as of this encounter Visit Diagnoses Not on filedocumented in this encounter Care Teams Guest Laundry Attendant Relationship Specialty Start Date End Date Cabrera Dupont MD [address] [facility] [address] PCP - General 11/30/20 documented as of this encounter
--- OUTSIDE RECORDS SUMMARY | 2025-04-15 08:51 | XMS_ITS | Encounter Summary ---
Author Organization [facility] Address [address] [place] [address] Care Team Providers Care Pattern Stamper Name Role Phone Cabrera Dupont MD Primary Care Provider [phone] Source Comments In the event this information is protected by the Federal Confidentiality of Alcohol and Drug AbusePatient Records regulations: The Federal rules restrict any use of the information to criminally investigate or prosecute any alcohol or drug abuse patient.[facility] Encounter Details Date Type Department Care Team (Late st Contact Info) Description 10/01/2019 Get Medical Advice Endocrinology [address] [place] [address] Mandie Osborne MD [address] [facility] [address] [address] RE: Medication Question (Not Renewal) [...] on filedocumented in this encounter Care Teams Pattern Stamper Relationship Specialty Start Date End Date Cabrera Dupont MD PCP - General Family Medicine 01/21/19 documented as of this encounter
--- OUTSIDE RECORDS SUMMARY | 2025-04-15 08:51 | XMS_ITS | Clinical Summary ---
Author Organization [facility] Address [address] [place], [place] [id number] Care Team Providers Care Final Inspector Balance Wheel Name Role Phone Cabrera Dupont MD Primary Care Provider Allergies Active Allergy Reactions Criticality Noted Date Comments Lisinopril Other: See Comments 04/28/2015 Fatigue Medications esomeprazole 20 mg capsuleIndicati ons:Thyroid nodule,Prolacti noma (HCC),Type II or unspecified type diabetes mellitus without mention of complication, uncontrolled,Hy pogonadism male,Hypercalce glenn Take 20 mg by mouth once daily. Active aspirin, enteric coated (ASPIRIN, ENTERIC COATED) 81 mg EC tablet Take 81 mg by mouth once daily. Active MULTIVIT &MINERALS/GAURANG US FUM (MULTI VITAMIN ORAL) Take by mouth once daily. Active ASCORBIC ACID (VITAMIN C ORAL) Take by mouth once daily. Active CYANOCOBALAMIN, VITAMIN B-12, (VITAMIN B-12 ORAL) Take by mouth once daily. 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 01/22/20 19 Active iv contrast (will be provided with radiology test)Indication s:Abnormal weight loss,Pituitary adenoma with extrasellar extension (HCC) MRI Pituitary [...] contrast administration guidelines link. 1 Each 1 01/22/20 19 Active metFORMIN (GLUCOPHAGE) 500 mg tablet TAKE 2 TABLETS TWICE A DAY WITH MEALS 360 tablet 4 09/25/20 19 Active buPROPion SR (ZYBAN SR; WELLBUTRIN SR) 150 mg 12 hr tablet Take 1 tablet by mouth twice daily. 180 tablet 1 04/13/20 20 Active levothyroxine (SYNTHROID) 75 mcg tabletIndicatio ns:Thyroid disease Take 0.5 tablets by mouth once daily. 45 tablet 1 04/13/20 20 Active cabergoline (DOSTINEX) 0.5 mg tabletIndicatio ns: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HCC) Take one tablet every other day 45 tablet 1 04/13/20 20 Active insulin glargine (LANTUS SOLOSTAR U-100 INSULIN) 100 unit/mL (3 mL) INJECT 50 UNITS UNDER THE SKIN TWICE A DAY 45 mL 1 04/13/20 20 Active testosterone (ANDROGEL) 50 mg / 5 g (1%)Indications :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, without long-term current use of insulin APPLY CONTENTS OF 1 PACKET TO AFFECTED AREA ONCE DAILY DIRECTED 90 Packet 1 05/27/20 20 Active Active Problems Problem Noted Date Diagnosed Date Abnormal stress test 04/28/2015 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 Rotator cuff strain 06/16/2013 Hypogonadism male 12/23/2012 Hypercalcemia 12/23/2012 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 09/24/2012 Thyroid nodule 11/16/2009 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 Family History Medical History Relation Comments Cancer Brother pancreatic cance r at age 53 heavy smoker Cancer Father bladder cancer a t 73 smoker Diabetes Mother Relation Status Comments Brother Father Mother Social History Tobacco Use Types Packs/Day Years Used Date Smoking Tobacco: Former Cigarettes 0 12/12/1976 - 12/12/1992 Smokeless Tobacco: Never Alcohol Use Standard Drinks/Week Comments No 0 (1 standard drink = 0.6 oz pur e alcohol) Area Deprivation Index Answer Date Gabriel rded National Score (1-100), lower number is lower ri sk Not on file 10/16/2020 State Score (1-10), lower number is lower risk N ot on file 10/16/2020 Data from: https://www.neighborhoodatlas.medicine.[facility]/. Last address used for calculation Not on file 10/16/2020 Sex and Gender Information Value Date Recorded Sex Assigned at Not on file Legal Sex Male 8:26 AM EST Gender Identity Not on file Sexual Orientation Not on file Occupation Industry Job Start Date Job End Date [employer] Not on file Not on file Not on file Last Filed Vital Signs Vital Sign Reading Time Taken Comments Blood Pressure 129/65 01/21/2019 3:12 PM EDT Pulse 76 01/21/2019 3:12 PM EDT Temperature 36.4 C (97.5 F) 08/24/2016 11:04 AM EDT Respiratory Rate 16 08/24/2016 11:04 AM EDT Oxygen Saturation 99% 08/24/2016 11:04 AM EDT ra Inhaled Oxygen Concentration - - Weight 94.5 kg (208 lb 6.4 oz) 01/21/2019 3:10 P M EDT Height 182.9 cm (6') 03/07/2016 1:44 PM EDT Body Mass Index 28.26 03/07/2016 1:44 PM EDT Plan of Treatment Health Maintenance Due Date Last Done Comments Abdominal Aortic Aneurysm Screening 1950 Anxiety Screening 1969 Depression Screening 1969 Hepatitis C Screening 1969 DTaP,Tdap,Td Vaccine (1 - Tdap) 1970 CT Colonography 1996 Cologuard (FIT-DNA) 1996 Colonoscopy 1996 Colorectal Cancer Screening 1996 Fecal Occult Blood 1996 Sigmoidoscopy 1996 Shingrix Vaccine (3 of 3) 10/07/2017 08/12/2017, Pneumococcal Vaccine: 50+ (2 of 2 - PCV) 08/12/2018 08/12/2017, 08/04/2014 Lipid Screening 08/24/2021 08/24/2016, 0403/2015, 12/02/2013, Additional history exists Diabetes Screening 01/21/2022 01/21/2019, 0 01/21/2019, 08/24/2016, Additional history exists Covid-19 Vaccine (1 - 2023-2 5 season) 2024 Advance Directive Discussion 11/11/2024 Influenza Vaccine (Season Ended) 2025 08/04/2018, 07/19/2018, 08/21/2017, Additional history exists RSV Vaccine (1 - 1-dose 75+ series) 2026 Procedures Procedure Name Priority Date/Time Associated Diagnosis Comments COMPREHENSIVE METABOLIC PANEL Routine 01/21/2019 4:04 PM EDT Abnormal weight loss Pituitary adenoma with extrasellar extension (HCC) Abnormal brain MRI LIPID PANEL, FASTING Routine 08/24/2016 11:36 AM EDT 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HCC) Thyroid nodule 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, without long-term current use of insulin (HCC) Hypogonadism male Hypercalcemia Central hypothyroidism Encounter for screening for malignant neoplasm of prostate from Last 3 Months or Most Recently Relevant to Health Maintenance Results * (ABNORMAL) COMP METABOLIC PANEL (01/21/2019 4:04 PM EDT) Pathologist [facility] Protein, Total 7.2 6.3 - 8.0 g/dL 01/21/2019 10:09 PM EDT [facility] Albumin 4.3 3.9 - 4.9 g/dL 01/21/2019 10:09 PM EDT [facility] Calcium 11.9(H) 8.5 - 10.2 mg/dL 01/21/2019 10:09 PM EDT [facility] Bilirubin, Total 0.4 0.2 - 1.3 mg/dL 01/21/2019 10:09 PM EDT [facility] Alkaline Phosphatase 61 38 - 113 U/L 01/21/2019 10:09 PM EDT [facility] AST 15 14 - 40 U/L 01/21/2019 10:09 PM EDT [facility] Glucose 82 74 - 99 mg/dL 01/21/2019 10:09 PM [facility] Comment: The [place] Diabetes Association (ADA) provides guidance for cutoff values for fasting glucose and random glucose. The ADA defines fasting as no caloric intake for at least 8 hours. Fasting plasma glucose results between 100 to 125 mg/dL indicate increased risk for diabetes (prediabetes). Fasting plasma glucose results greater than or equal to 126 mg/dL meet the criteria for diagnosis of diabetes. In the absence of unequivocal hyperglycemia, results should be confirmed by repeat testing. In a patient with classic symptoms of hyperglycemia or hyperglycemic crisis, random plasma glucose results greater than or equal to 200 mg/dL meet the criteria for diagnosis of diabetes. Reference: Standards of Medical Care in Diabetes 2016, [place] Diabetes Association. Diabetes Care. 2016.39(Suppl 1). BUN 11 9 - 24 mg/dL 01/21/2019 10:09 PM [facility] Creatinine 0.97 0.73 - 1.22 mg/dL 01/21/2019 10:09 PM [facility] Sodium 148(H) 136 - 144 mmol/L 01/21/2019 10:09 PM [facility] Potassium 4.7 3.7 - 5.1 mmol/L 01/21/2019 10:09 PM [facility] Chloride 108(H) 97 - 105 mmol/L 01/21/2019 10:09 PM [facility] CO2 25 22 - 30 mmol/L 01/21/2019 10:09 PM [facility] Anion Gap 15 9 - 18 mmol/L 01/21/2019 10:09 PM [facility] ALT 16 10 - 54 U/L 01/21/2019 10:09 PM [facility] eGFR- >60 01/21/2019 10:09 PM [facility] eGFR-All Other Races >60 . 01/21/2019 10:09 PM [facility] Comment: eGFR (Estimated GFR) Units of measure: mL/min/1.73 meters squared eGFR is derived from the reexpressed MDRD Study equation using the following parameters: serum creatinine, age, gender and race. The creatinine assay has been calibrated to be traceable to IDMS. An eGFR <60 mL/min/1.73m2 for >3 months is consistent with chronic kidney disease. Refer to KDOQI guidelines for clinical interpretation. In patients with unstable renal function, e.g. those with acute kidney injury, the eGFR may not accurately reflect actual GFR. Blood specimen (specimen) BLOOD SPECIMEN / Unknown 01/21/2019 4:04 PM EDT 01/21/2019 4:06 PM EDT Mandie Osborne MD LABORATORY Final Resul t Performing Organization Address [facility] Co de Phone Number [facility] [address] [place] [address] [facility] [address] [place] [address] * (ABNORMAL) LIPID PANEL BASIC (08/24/2016 11:36 AM EDT) Triglyceride 209(H) 30 - 149 mg/dL 08/24/2016 2:08 PM EDT [facility] Cholesterol, Total 180 100 - 199 mg/dL 08/24/2016 2:08 PM EDT [facility] HDL Cholesterol 41(L) >45 mg/dL 6 2:08 PM EDT [facility] VLDL Cholesterol 42(H) 6 - 40 mg/dL 08/24/2016 2:08 PM EDT [facility] LDL Cholesterol, Calculated 97 60 - 129 mg/dL 08/24/2016 2:08 PM EDT [facility] Fasting Time 12 hrs 08/24/2016 11:36 AM EDT [facility] TC:HDL Ratio 4.39 1.00 - 5.00 08/24/2016 2:08 PM EDT [facility] LDL:HDL Ratio 2.37 0.50 - 3.55 08/24/2016 2:08 PM EDT [facility] Non HDL Cholesterol 139 90 - 159 mg/dL 08/24/2016 2:08 PM EDT [facility] Blood specimen (specimen) BLOOD SPECIMEN / Unknown 08/24/2016 11:36 AM EDT 08/24/2016 11:40 AM EDT Mandie Osborne MD LABORATORY Final Resul t Performing Organization Address [facility] Co de Phone Number [facility] [address] [place] [address] from Last 3 Months or Most Recently Relevant to Health Maintenance Insurance [employer]VANTAGE PPO [facility] GENERIC Care Teams Final Inspector Balance Wheel Relationship Specialty Start Date End Date Cabrera Dupont MD PCP - General Family Medicine 01/21/19
--- OUTSIDE RECORDS SUMMARY | 2025-04-15 08:51 | XMS_ITS | Encounter Summary ---
Author Organization [facility] Address [address] [place] [address] Care Team Providers Care Reaming Machine Operator Name Role Phone Cabrera Dupont MD Primary Care Provider [phone] Source Comments In the event this information is protected by the Federal Confidentiality of Alcohol and Drug AbusePatient Records regulations: The Federal rules restrict any use of the information to criminally investigate or prosecute any alcohol or drug abuse patient.[facility] Encounter Details Date Type Department Care Team (Late st Contact Info) Description 01/22/2019 Patient Msg Endocrinology [address] [place] [address] Mandie Osborne MD [address] [facility] [address] [address] RE:(No subject) Social History Tobacco Use Types [...] on filedocumented in this encounter Care Teams Reaming Machine Operator Relationship Specialty Start Date End Date Cabrera Dupont MD PCP - General Family Medicine 01/21/19 documented as of this encounter
--- OUTSIDE RECORDS SUMMARY | 2025-04-15 08:51 | XMS_ITS | Encounter Summary ---
Author Organization [facility] Address [address] [facility] [place] [address] Care Team Providers Care Laundry Manager Name Role Phone Ric Ross MD Unavailable [phone] Haritha Argueta MD Primary Care Provider [phone] Encounter Details Date Type Department Care Team (Late st Contact Info) Description 03/23/2022 Abstract [facility] [address] [facility] [place] [address] Ever Oropeza DO Social History Tobacco Use Types Packs/Day Years Used Date Smoking Tobacco: Former Cigarettes 1 24 1 7 1990 Alcohol Use Standard Drinks/Week Comments Never 0 (1 standard drink = 0.6 oz pur e alcohol) Sex and Gender Information Value Date Recorded Sex Assigned at Not on file Legal Sex Male 6:38 PM EDT Gender Identity Not on file Sexual Orientation Not on file documented as of this encounter Plan of Treatment Upcoming Encounters Date Type Department Care Team (Late st Contact Info) Description 07/06/2025 1:30 PM EDT Office Visit [facility] [address] [place] [address] Radhika Spivey MD [address] [place], [place] [phone] documented as of this encounter Visit Diagnoses Not on filedocumented in this encounter Care Teams Laundry Manager Relationship Specialty Start Date End Date Ric Ross MD [address] [place] [address] PCP - Sav SEWELL 11/11/21 05/10/22 Haritha Argueta MD [address] [place] [address] PCP - General Family Medicine 03/23/24 documented as of this encounter
--- OUTSIDE RECORDS SUMMARY | 2025-04-15 08:51 | XMS_ITS | Encounter Summary ---
Author Organization [facility] Address [address] [place] [address] Care Team Providers Care Inpatient Nursing Aide Name Role Phone Carlos Andersen DO Primary Care Provider Cabrera Dupont MD Primary Care Provider [phone] Source Comments In the event this information is protected by the Federal Confidentiality of Alcohol and Drug AbusePatient Records regulations: The Federal rules restrict any use of the information to criminally investigate or prosecute any alcohol or drug abuse patient.[facility] Encounter Details Date Type Department Care Team (Late st Contact Info) Description 10/23/2018 Patient Msg Endocrinology [address] [place] [place] [id number] Provider, [facility] From Dr. Mandie Osborne's office Social History Tobacco Use Types Packs/Day Years [...] on filedocumented in this encounter Care Teams Inpatient Nursing Aide Relationship Specialty Start Date End Date Carlos Andresen DO PCP - General Family Medicine 05/13/14 01/20/19 Cabrera Dupont MD PCP - General Family Medicine 01/21/19 documented as of this encounter
--- OUTSIDE RECORDS SUMMARY | 2025-04-15 08:51 | XMS_ITS | Encounter Summary ---
Author Organization [facility] Address [address] [place] [address] Care Team Providers Care Home Economics Teacher Name Role Phone Cabrera Dupont MD Primary Care Provider [phone] Source Comments In the event this information is protected by the Federal Confidentiality of Alcohol and Drug AbusePatient Records regulations: The Federal rules restrict any use of the information to criminally investigate or prosecute any alcohol or drug abuse patient.[facility] Encounter Details Date Type Department Care Team (Late st Contact Info) Description 10/01/2019 Get Medical Advice Endocrinology [address] [place] [address] Mandie Osborne MD [address] [facility] [address] [address] Medication Question (Not Renewal) Social History Tobacco [...] on filedocumented in this encounter Care Teams Home Economics Teacher Relationship Specialty Start Date End Date Cabrera Dupont MD PCP - General Family Medicine 01/21/19 documented as of this encounter
--- OUTSIDE RECORDS SUMMARY | 2025-04-15 08:51 | XMS_ITS | Encounter Summary ---
Author Organization [facility] Address [address] [place] [address] Care Team Providers Care Ticket Printer Name Role Phone Haritha Argueta MD Primary Care Provider [phone] Reason for Visit * Reason Comments Med Refill Encounter Details Date Type Department Care Team ([facility] st Contact Info) Description 06/04/2023 Refill [facility] [address] [place] [address] Caryn Gillette PA-C [address] [place] [address] Acute on chronic systolic heart failure (CMS/[facility]) Social History Tobacco Use Types Packs/Day Years Used Date Smoking Tobacco: Former Cigarettes Q uit: 1991 Smokeless Tobacco: Never Alcohol Use Standard Drinks/Week Comments Not Currently 0 (1 standard drink = 0.6 oz pur e alcohol) Humiliation, Afraid, Rape, and Kick questionnair e Answer Date Recorded Within the last year, have y ou been afraid of your partner or ex-partner? No 05/02/2023 Emotionally Abused Not on file 05/02/2023 Physically Abused Not on file 05/02/2023 Sexually Abused Not on file 05/02/2023 Overall Financial Resource Strain (CARDIA) Answe r Date Recorded How hard is it for you to pa y for the very basics like food, housing, medical care, and heating? Not hard at all 05/02/2023 ME Safety & Environment Answer Date Rec orded Within the last year, have y ou been afraid of your partner or ex-partner? No 05/02/2023 Emotionally Abused Not on file 05/02/2023 Physically Abused Not on file 05/02/2023 Sexually Abused Not on file 05/02/2023 Physically or Sexually Abused Not on file Transportation Answer Date Recorded In the past 12 months, has l ack of transportation kept you from medical appointments or from getting medications? No 05/02/2023 Lack of Transportation (Non-Medical) Not on file 05/02/2023 Housing Stability Vital Sign Answer Phu e Recorded Unable to Pay for Housing in the Last Year Not o n file 05/02/2023 Number of Places Lived in the Last Year Not on f ile 05/02/2023 In the last 12 months, was t here a time when you did not have a steady place to sleep or slept in a mcfp (including now)? No 05/02/2023 Hunger Vital Sign Answer Date Recorded Within the past 12 months, y ou worried that your food would run out before you got the money to buy more. Never true 05/02/20 23 Ran Out of Food in the Last Year Not on file 05/02/2023 Sex and Gender Information Value Date Recorded Sex Assigned at Not on file Gender Identity Not on file Sexual Orientation Not on file COVID-19 Exposure Response Date Recorded In the last 10 days, have yo u been in contact with someone who was confirmed or suspected to have Coronavirus/COVID-19? No / Unsure 06/05/2023 11:36 AM EDT documented as of this encounter Plan of Treatment Upcoming Encounters Date Type Department Care Team ([facility] st Contact Info) Description 04/20/2025 10:00 AM EDT Office Visit [facility] [address] [place] [address] Eliceo Espinzoa MD [address] [place] [address] documented as of this encounter Visit Diagnoses Diagnosis Acute on chronic systolic heart failure (CMS/HCC) Acute on chronic systolic heart failure documented in this encounter Care Teams Ticket Printer Relationship Specialty Start Date End Date Haritha Argueta MD [address] [facility] [address] PCP - General 10/16/22 documented as of this encounter
--- OUTSIDE RECORDS SUMMARY | 2025-04-15 08:51 | XMS_ITS | Encounter Summary ---
Author Organization [facility] Address [address] [place] [address] Care Team Providers Care Architectural Engineer Name Role Phone Cabrera Dupont MD Primary Care Provider [phone] Source Comments In the event this information is protected by the Federal Confidentiality of Alcohol and Drug AbusePatient Records regulations: The Federal rules restrict any use of the information to criminally investigate or prosecute any alcohol or drug abuse patient.[facility] Encounter Details Date Type Department Care Team (Late st Contact Info) Description 02/24/2019 Get Medical Advice Endocrinology [address] [place] [address] Mandie Osborne MD [address] [facility] [address] [address] RE: Medication Question (Not Renewal) [...] on filedocumented in this encounter Care Teams Architectural Engineer Relationship Specialty Start Date End Date Cabrera Dupont MD PCP - General Family Medicine 01/21/19 documented as of this encounter
--- OUTSIDE RECORDS SUMMARY | 2025-04-15 08:51 | XMS_ITS | Encounter Summary ---
Author Organization [facility] Address [address] [place] [address] Care Team Providers Care Lpn Rn Hospice Name Role Phone Carlos Andersen DO Primary Care Provider Cabrera Dupont MD Primary Care Provider [phone] Source Comments In the event this information is protected by the Federal Confidentiality of Alcohol and Drug AbusePatient Records regulations: The Federal rules restrict any use of the information to criminally investigate or prosecute any alcohol or drug abuse patient.[facility] Encounter Details Date Type Department Care Team (Late st Contact Info) Description 12/20/2017 Get Medical Advice Endocrinology [address] [place] [address] [facility]borne MD [address] [facility] [address] [address] RE: Medication Question (Not Renewal) [...] on filedocumented in this encounter Care Teams Lpn Rn Hospice Relationship Specialty Start Date End Date Carlos Andersen DO PCP - General Family Medicine 05/13/14 01/20/19 Cabrera Dupont MD PCP - General Family Medicine 01/21/19 documented as of this encounter
--- OUTSIDE RECORDS SUMMARY | 2025-04-15 08:51 | XMS_ITS | Encounter Summary ---
Author Organization [facility] Address [address] [place] [address] Care Team Providers Care Pie Bakery Laborer Name Role Phone Cabrera Dupont MD Primary Care Provider [phone] Source Comments In the event this information is protected by the Federal Confidentiality of Alcohol and Drug AbusePatient Records regulations: The Federal rules restrict any use of the information to criminally investigate or prosecute any alcohol or drug abuse patient.[facility] Encounter Details Date Type Department Care Team (Late st Contact Info) Description 10/01/2019 Get Medical Advice Endocrinology [address] [place] [address] Mandie Osborne MD [address] [facility] [address] [address] RE: Medication Question (Not Renewal) [...] on filedocumented in this encounter Care Teams Pie Bakery Laborer Relationship Specialty Start Date End Date Cabrera Dupont MD PCP - General Family Medicine 01/21/19 documented as of this encounter
--- OUTSIDE RECORDS SUMMARY | 2025-04-15 08:51 | XMS_ITS | Clinical Summary ---
Author Organization [facility] Healthcare Address [address] [place] [address] Care Team Providers Care Tableau Lead Name Role Phone Haritha Argueta MD Primary Care Provider [phone] Allergies No known active allergies Medications Eliquis 5 MG tablet Take 5 mg by mouth in the morning and 5 mg before bedtime. Active carvedilol (Coreg) 6.25 MG tablet TAKE 1 TABLET (6.25 MG) BY MOUTH IN THE MORNING AND AT BEDTIME. Active buPROPion SR (Wellbutrin SR) 150 MG 12 hr tablet every 12 (twelve) hours Active lisinopril 5 MG tablet TAKE 1 TABLET BY MOUTH EVERYDAY Active Farxiga 10 MG Take 10 mg by mouth in the morning. Active esomeprazole (NexIUM) [address] capsule 2 capsules 1 (one) time each day at the same time Active testosterone (AndroGel) 50 MG/5GM (1%) gel 1 (one) time each day at the same time Active insulin glargine (Lantus) 100 UNIT/ML injection as directed Subcutaneous 30 units in AM 15 units in PM Active metFORMIN (Glucophage) 1000 MG tablet Take 500 mg by mouth in the morning. Take with meals. Active spironolactone (Aldactone) 25 MG tablet Take by mouth Daily Active levothyroxine (Synthroid, Levoxyl) 75 MCG tablet Take by mouth Daily before meals Active escitalopram (Lexapro) 10 MG tablet Take 10 mg by mouth Daily Active albuterol HFA 90 mcg/act inhaler Inhale 2 puffs every 4 (four) hours if needed Active cabergoline (Dostinex) 0.5 MG tablet Take 0.5 mg by mouth every other day 3 Active rosuvastatin (Crestor) 40 MG tablet Take 40 mg by mouth Daily 4 Active Active Problems Problem Noted Date Diagnosed Date Overweight (BMI 25.0-29.9) 12/29/2024 Coronary artery disease invo lving lower [place] coronary artery of [place] heart without angina pectoris 09/16/2024 Diabetes mellitus due to und erlying condition with diabetic cataract 09/16/2024 Nonischemic cardiomyopathy 09/16/2024 Acquired hypothyroidism 07/09/2024 Constipation 07/09/2024 Diverticulosis of colon 07/09/2024 Hyperlipidemia 07/09/2024 Hypertension 07/09/2024 Incontinence of feces with fecal urgency 024 Pure hypercholesterolemia 07/09/2024 Type 2 diabetes mellitus with hyperglycemia 06/12 Alzheimer's disease with late onset 06/27/2024 Dementia in other diseases c lassified elsewhere, unspecified severity, without behavioral disturbance, psychotic disturbance, mood disturbance, and anxiety 06/27/2024 History of ischemic stroke 06/27/2024 Personality change 06/27/2024 Pituitary mass 06/27/2024 Depression 06/27/2024 Memory impairment 06/27/2024 Carotid stenosis, bilateral 04/01/2024 Overview (07/09/2024): Last Assessment & Plan: In light pt LDL 98.8 with noted moderate carotid stenosis and DM will increase statin- he states lipitor 40 mg in past caused myalgias therefore will switch to crestor 40 mg daily, repeat Carotid US to assess stenosis and LFT with lipid level in 3 months- he voiced agreement and understanding to call office for any myalgias or concerns Atrial flutter 11/28/2022 Overview (07/09/2024): Last Assessment & Plan: Plan for cardioversion outpt- CVL to call with scheduling s/p DCCV on 10/24. Continue Eliquis and Carvedilol. [id number], D/W Dr Espinoza- EP and he recommends pt to start amiodarone for antiarrythmic and plan for outpt cardioversion PFO (patent foramen ovale) 11/28/2022 Overview (07/09/2024): Last Assessment & Plan: Continue to monitor Chronic systolic heart failure 11/15/2022 Overview (07/09/2024): Last Assessment & Plan: Congestive heart failure due to NICM Heart failure is stable . NYHA Class II. Continue current treatment regimen. Dietary sodium restriction. Encouraged daily monitoring of the patient's weight. Regular aerobic exercise. Continue current medications. Refer to Cardiology. Heart failure will be reassessed in 6 months. Currently euvolemic without exacerbation CVA (cerebral vascular accident) 10/26/2022 Overview (07/09/2024): a2017 affecting left side History of transient ischemic attack (TIA) 10/26 Vasovagal syncope 10/26/2022 Paroxysmal atrial fibrillation 10/18/2022 Overview (07/09/2024): Added automatically from request for surgery [id number] Last Assessment & Plan: [id number]= 6 Continue eliquis anticoagulation. Continue coreg- rate is well controlled and pt remains in Sinus rhythm RTC [address] Espinoza Persistent atrial fibrillation (HCC) 10/16/2022 Overview (07/09/2024): Last Assessment & Plan: -[id number] - 4 (age, hx cva, DM, htn) -start eliquis, stop plavix and aspirin -start metoprolol 12.5mg BID -MOMO with possible cardioversion next week with Dr. 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 Hypercalcemia 12/23/2012 Hypogonadism male 12/23/2012 Type 2 diabetes mellitus without complication 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 Thyroid nodule 11/16/2009 Resolved Problems Problem Noted Date Diagnosed Date Resolved Date Diarrhea 07/09/2024 07/09/2024 Dietary counseling and surveillance 07/09/2024 07/09/2024 S/P ablation of atrial fibrillation 05/02/2023 07/09/2024 Overview (07/09/2024): Last Assessment & Plan: Remains is sinus rhythm on ECG today Rotator cuff strain 06/16/2013 07/09/20 24 Encounters Date Type Department Care Team Description 02/11/2025 1:15 PM EDT Office Visit [facility] [address] [facility] [id number] Pranay Hill, Primary osteoarthritis of right hip (Primary Dx) 02/11/2025 Bamboo flowsheet [facility] [address] [place] [id number] Pranay Hill DO 02/11/2025 Travel 02/01/2025 9:45 AM EDT Ancillary Procedure [facility] [place] [phone] 02/01/2025 9:45 AM EDT Office Visit [facility] [place] [phone] Bong Contreras, YUN Primary osteoarthritis of right hip (Primary Dx); Right hip pain 02/01/2025 Bamboo flowsheet [facility] [place] [phone] Bong Contreras NP 02/01/2025 Travel from Last 3 Months Family History Medical History Relation Name Comments Diabetes type II Mother Relation Name Status Comments Father Mother Social History Tobacco Use Types Packs/Day Years Used Date Smoking Tobacco: Former Cigarettes 1 24 1 967 - 1990 Smokeless Tobacco: Never Tobacco Cessation:Counseling Given: Not Answered Alcohol Use Standard Drinks/Week Comments Never 0 (1 standard drink = 0.6 oz pur e alcohol) Sex and Gender Information Value Date Recorded Sex Assigned at Not on file Legal Sex Male 6:38 PM EDT Gender Identity Not on file Sexual Orientation Not on file Last Filed Vital Signs Vital Sign Reading Time Taken Comments Blood Pressure 100/59 12/29/2024 1:31 PM EST Pulse 77 12/29/2024 1:31 PM EST Temperature - - Respiratory Rate - - Oxygen Saturation - - Inhaled Oxygen Concentration - - Weight 88.8 kg (195 lb 12.8 oz) 02/11/2025 1:12 PM EDT Height 182.9 cm (6') 02/11/2025 1:12 PM EDT Body Mass Index 26.56 02/11/2025 1:12 PM EDT Plan of Treatment Upcoming Encounters Date Type Department Care Team (Late st Contact Info) Description 07/06/2025 1:30 PM EDT Office Visit [facility] [address] [facility] [address] [place] [phone] Radhika Spivey MD [address] [facility] [address] [place], [place] [id number] Health Maintenance Due Date Last Done Comments CT Colonography 1951 FIT-DNA 1951 FIT 1950 FOBT 1950 Sigmoidoscopy 1950 Pneumococcal Vaccine: 65+ Ye ars (2 of 2 - PCV) 08/12/2018 08/12/2017, 08/04/2014 Colonoscopy 04/14/2034 04/14/2024 Colorectal Cancer Screening 04/14/2034 Influenza Vaccine Completed 08/21/2024, , 08/15/2022, Additional history exists Procedures Procedure Name Priority Date/Time Associated Diagnosis Comments XR HIP 2 OR 3 VW RIGHT Routine 02/01/2025 9:42 AM EDT Right hip pain from Last 3 Months Results * XR hip right 2 or 3 views (02/01/2025 9:42 AM EDT) Anatomical Region Laterality Modality Lower Extremities, Hip Right Radiograp hic Imaging Narrative 02/01/2025 12:01 PM EDT Imaging Result: 02/01/2025: AP and frog leg of right hip demonstrates no acute fracture of dislocation of the right hip. He does have subchondral sclerosis and decreased joint space with osteophyte formation of the superior acetabular rim. Impression: Osteoarthritis of the right hip. Bong Contreras WASTE DUSTER[employer]FORMULATOR COMPOUNDER Bong Contreras BLOW MACHINE TENDER STARCH SPRAYING IMG XR PROCEDURES Final Result from Last 3 Months Insurance [employer] Care Teams Tableau Lead Relationship Specialty Start Date End Date Haritha Argueta MD PCP - General Family Medicine 03/23/24
--- OUTSIDE RECORDS SUMMARY | 2025-04-15 08:51 | XMS_ITS | Clinical Summary ---
Author Organization [facility] Address [address] [place] [address] Phone Care Team Providers Care Candle Pourer Name Role Phone Cabrera Dupont MD Primary Care Provider [phone] Allergies No known active allergies Medications Eliquis 5 mg tablet Take 1 tablet (5 mg) by mouth every 12 hours. 4 Active Accu-Chek Alicia Plus test strp strip twice a day. Active buPROPion XL (Wellbutrin XL) 150 mg 24 hr tablet Take 1 tablet (150 mg) by mouth every 12 hours. 4 Active carvedilol (Coreg) 6.25 mg tablet TAKE 1 TABLET (6.25 MG) BY MOUTH IN THE MORNING AND AT BEDTIME. 4 Active Farxiga 10 mg Take 1 tablet (10 mg) by mouth once daily in the morning. Take before meals. 4 Active escitalopram (Lexapro) 10 mg tablet Take 1 tablet (10 mg) by mouth early in the morning.. 4 Active esomeprazole (NexIUM) [address] capsule Take 1 capsule (40 mg) by mouth once daily. Active lisinopril 5 mg tablet 4 Active metFORMIN (Glucophage) 500 mg tablet Take by mouth. Active BD Ultra-Fine Mini Pen Needle 31 gauge x 3/16 needle use as directed 4 Active sildenafil (Viagra) 50 mg tablet TAKE 1 TABLET BY MOUTH ONCE A DAY NEEDED DIRECTED FOR 30 DAYS 4 Active spironolactone (Aldactone) 25 mg tablet TAKE 1/2 TABLET BY MOUTH IN THE MORNING 4 Active rosuvastatin (Crestor) 40 mg tablet Take 1 tablet (40 mg) by mouth once daily. Active Lantus Solostar U-100 Insulin 100 unit/mL (3 mL) penIndications:H ypopituitarism (Multi),Hypogona dism male,Hyperparath yroidism (Multi),Hyperpro lactinemia (Multi),Type 2 diabetes mellitus without complication, with long-term current use of insulin Inject 35 Units under the skin once daily in the morning. 15 mL 11 4 Active levothyroxine (Synthroid, Levoxyl) 75 mcg tabletIndication s:Hypopituitaris m (Multi),Hypogona dism male,Hyperparath yroidism (Multi),Hyperpro lactinemia (Multi),Type 2 diabetes mellitus without complication, with long-term current use of insulin Take 1 tablet (75 mcg) by mouth once daily. 90 tablet 3 4 Active testosterone 1 % (50 mg/5 gram) gel in packetIndication s:Hypopituitaris m (Multi),Hypogona dism male,Hyperparath yroidism (Multi),Hyperpro lactinemia (Multi),Type 2 diabetes mellitus without complication, with long-term current use of insulin Place 1 packet (50 mg) on the skin once daily. 90 packet 1 4 Active cabergoline (Dostinex) 0.5 mg tabletIndication s:Healthcare maintenance Take 1 tablet (0.5 mg) by mouth every other day. Please schedule follow up for further refills. 15 tablet 6 5 Active Encounters Date Type Department Care Team Description 01/20/2025 Refill [facility] [address] [facility] [address] [place] [address] Jenifer Aguirre, LEELA Healthcare maintenance from Last 3 Months Social History Tobacco Use Types Packs/Day Years Used Date Smoking Tobacco: Never Assessed Sex and Gender Information Value Date Recorded Sex Assigned at Male 06/16/2024 11:30 AM EDT Legal Sex Male 8:53 AM EST Gender Identity Male 06/16/2024 11:30 AM EDT Sexual Orientation Straight 06/16/2024 11 :30 AM EDT Plan of Treatment Health Maintenance Due Date Last Done Comments CT Colonography 1950 Colonoscopy 1951 Colorectal Cancer Screening 1951 Diabetes: Hemoglobin A1C 1951 Diabetes: Urine Protein Screening 1950 FIT-DNA (Cologuard) 1950 FIT 1950 Lipid Panel 1950 Medicare Annual Wellness Vis it (AWV) 1950 Sigmoidoscopy 1950 TSH Level 1951 Diabetes: Retinopathy Screening 1961 Hepatitis C Screening 1969 Pneumococcal Vaccine (1 of 2 - PCV) 1970 DTaP/Tdap/Td Vaccines (1 - Tdap) 1973 Zoster Vaccines (1 of 2) 2001 RSV High Risk: (Elderly (60+ ) or Population) (1 - Risk 60-74 years 1-dose series) 2011 COVID-19 Vaccine ( - 2023-2 5 season) 2024 Influenza Vaccine (Season Ended) 2025 HIB Vaccines Aged Out No longer eligi ble based on patient's age to complete this topic HPV Vaccines Aged Out No longer eligi ble based on patient's age to complete this topic Hepatitis A Vaccines Aged Out No long er eligible based on patient's age to complete this topic Hepatitis B Vaccines Aged Out No long er eligible based on patient's age to complete this topic IPV Vaccines Aged Out No longer eligi ble based on patient's age to complete this topic Meningococcal Vaccine Aged Out No michele leann eligible based on patient's age to complete this topic Rotavirus Vaccines Aged Out No longer eligible based on patient's age to complete this topic Insurance [employer] MED[employer]ARE ADVANTAGE [employer] Care Teams Candle Pourer Relationship Specialty Start Date End Date Cabrera Dupont MD [address] [facility] [place] [address] PCP - General 11/30/20
--- OUTSIDE RECORDS SUMMARY | 2025-04-15 08:51 | XMS_ITS | Clinical Summary ---
Author Organization [facility] Address [address] [place] [address] Care Team Providers Care Typing Bookkeeper Name Role Phone Haritha Argueta MD Primary Care Provider [phone] Allergies Active Allergy Reactions Criticality Noted Date Comments No Known Allergies Low 05/02/2023 Medications Medication Sig Dispensed Refills Start Date End Date Status buPROPion SR (Wellbutrin SR) 150 mg 12 hr tablet Take 1 tablet twice a day by oral route. 04/13/2020 Active cabergoline (Dostinex) 0.5 mg tablet Take 1 tablet every other day by oral route. 04/13/2020 Active Lantus Solostar U-100 Insulin 100 unit/mL (3 mL) pen Inject 30 Units under the skin in the morning. 10/10/2022 Active levothyroxine (Synthroid, Levoxyl) 75 mcg tablet 37.5 mcg in the morning. 04/13/2020 Active metFORMIN (Glucophage) 500 mg tablet Take 500 mg by mouth at bedtime. 10/14/2022 Active apixaban (Eliquis) 5 mg tabletIndications:Atr ial fibrillation with rapid ventricular response (CMS/HCC) Take 1 tablet (5 mg) by mouth in the morning and at bedtime. 60 tablet 11 10/16/2022 04/01/2026 Active esomeprazole (NexIUM) [address] capsule Take 40 mg by mouth before breakfast. Do not open capsule. Active testosterone (Androgel) 50 mg/5 gram (1 %) gel Place 50 mg on the skin in the morning. As directed Active lisinopril 5 mg tabletIndications:Acu te on chronic systolic heart failure (CMS/HCC) Take 1 tablet (5 mg) by mouth in the morning. 30 tablet 11 10/26/2022 Active furosemide (Lasix) 40 mg tabletIndications:Acu te on chronic systolic heart failure (CMS/HCC) Take 1 tablet by mouth daily for fluid retention as directed 90 tablet 3 11/28/2022 Active sildenafil (Viagra) 25 mg tablet Take 25 mg by mouth if needed each day. Active spironolactone (Aldactone) 25 mg tabletIndications:Acu te on chronic systolic heart failure (CMS/HCC) TAKE 1/2 TABLET BY MOUTH IN THE MORNING 45 tablet 3 06/04/2024 Active escitalopram (Lexapro) 10 mg tablet Take 10 mg by mouth in the morning. Active Farxiga 10 mgIndications:Acute on chronic systolic congestive heart failure (CMS/HCC) TAKE 1 TABLET BY MOUTH EVERY DAY IN THE MORNING 30 tablet 11 11/24/2024 Active carvedilol (Coreg) 6.25 mg tabletIndications:Acu te on chronic systolic congestive heart failure (CMS/HCC) TAKE 1 TABLET (6.25 MG) BY MOUTH IN THE MORNING AND AT BEDTIME. 180 tablet 3 03/03/2025 Active rosuvastatin (Crestor) 40 mg tabletIndications:Mix ed hyperlipidemia TAKE 1 TABLET BY MOUTH EVERY DAY IN THE MORNING 90 tablet 3 03/03/2025 Active Active Problems Patient Care Coordination No te Formatting of this note migh t be different from the original. Patient will be started on eliqiuis Booked for MOMO with possible cardioversion with Dr. 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 09/16/2024 Nonischemic cardiomyopathy 09/16/2024 Coronary artery disease invo lving [place] coronary artery of [place] heart without angina pectoris 09/16/2024 Diarrhea 09/16/2024 Dietary counseling and surveillance 09/16/2024 Constipation 07/09/2024 Diverticulosis of colon 07/09/2024 Essential hypertension 07/09/2024 Incontinence of feces with fecal urgency 024 Pure hypercholesterolemia 07/09/2024 Type 2 diabetes mellitus with hyperglycemia 06/12 Alzheimer's disease with late onset 06/27/2024 Depression 06/27/2024 History of ischemic stroke 06/27/2024 Memory impairment 06/27/2024 Personality change 06/27/2024 Pituitary mass 06/27/2024 Carotid stenosis, bilateral 04/01/2024 Assessment & Plan (04/01/2024 12:55 PM EDT): In light pt LDL 98.8 with noted moderate carotid stenosis and DM will increase statin- he states lipitor 40 mg in past caused myalgias therefore will switch to crestor 40 mg daily, repeat Carotid US to assess stenosis and LFT with lipid level in 3 months- he voiced agreement and understanding to call office for any myalgias or concerns S/P ablation of atrial fibrillation 05/02/2023 Assessment & Plan (04/01/2024 10:20 AM EDT): Remains is sinus rhythm on ECG today Chronic systolic heart failure 12/04/2022 Atrial flutter 11/28/2022 Assessment & Plan (11/28/2022 3:49 PM EST): Plan for cardioversion outpt- CVL to call with scheduling s/p DCCV on 10/24. Continue Eliquis and Carvedilol. [id number]- 7, D/W Dr Espinoza- EP and he recommends pt to start amiodarone for antiarrythmic and plan for outpt cardioversion PFO (patent foramen ovale) 11/28/2022 Assessment & Plan (11/28/2022 3:51 PM EST): Continue to monitor Chronic systolic congestive heart failure 2022 Assessment & Plan (04/01/2024 10:22 AM EDT): Congestive heart failure due to NICM Heart failure is stable . NYHA Class II. Continue current treatment regimen. Dietary sodium restriction. Encouraged daily monitoring of the patient's weight. Regular aerobic exercise. Continue current medications. Refer to Cardiology. Heart failure will be reassessed in 6 months. Currently euvolemic without exacerbation Assessment & Plan (11/28/2022 3:48 PM EST): NYHC II-III Currently euvolemic, without excerbation. Continue GDMT- lipitor, coreg, farxiga, lasix, lisinopril and aldactone Check CMP today Monitor daily weights, I&O, fluid restriction 1.5-2L/day, renal function and electrolytes Vasovagal syncope 10/26/2022 History of transient ischemic attack (TIA) 10/26 CVA (cerebral vascular accident) 10/26/2022 Overview (10/26/2022): a2017 affecting left side Atrial fibrillation 10/18/2022 Overview (10/18/2022): Added automatically from request for surgery [id number] Assessment & Plan (04/01/2024 12:53 PM EDT): [id number]= 6 Continue eliquis anticoagulation. Continue coreg- rate is well controlled and pt remains in Sinus rhythm RTC [address] Espinoza Assessment & Plan (11/28/2022 3:50 PM EST): as above- s/p DCCV on 10/24. Continue Eliquis and Carvedilol. [id number]- 7, D/W Dr Espinoza- EP and he recommends pt to start amiodarone for antiarrythmic and plan for outpt cardioversion Persistent atrial fibrillation 10/16/2022 Assessment & Plan (10/16/2022 4:37 PM EST): -[id number] - 4 (age, hx cva, DM, htn) -start eliquis, stop plavix and aspirin -start metoprolol 12.5mg BID -MOMO with possible cardioversion next week with Dr. 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 Encounters Date Type Department Care Team Description 02/27/2025 Refill [facility] [address] [place] [facility] [place] [address] Janee Rayo CNP Acute on chronic systolic congestive heart failure (CMS/HCC); Mixed hyperlipidemia 02/05/2025 Orders Only [facility] [address] [place] [facility] [place] [id number] Lorie Soliman MA Hyperlipidemia, unspecified hyperlipidemia type from Last 3 Months Family History Medical History Relation Name Comments No Known Problems Brother No Known Problems Father No Known Problems Father's Brother No Known Problems Father's Sister No Known Problems Maternal Grandfather No Known Problems Maternal Grandmother No Known Problems Mother No Known Problems Mother's Brother No Known Problems Mother's Sister No Known Problems Other No Known Problems Paternal Grandfather No Known Problems Paternal Grandmother No Known Problems Sister Relation Name Status Comments Brother Father Father's Brother Father's Sister Maternal Grandfather Maternal Grandmother Mother Mother's Brother Mother's Sister Other Paternal Grandfather Paternal Grandmother Sister Social History Tobacco Use Types Packs/Day Years Used Date Smoking Tobacco: Former Cigarettes Q uit: 1992 Smokeless Tobacco: Never Tobacco Cessation:Counseling Given: Not Answered Alcohol Use Standard Drinks/Week Comments Not Currently [...] and heating? Not hard at all 05/02/2023 [place] Safety & Environment Answer Date Rec orded Fear of Current or Ex-Partner Not on file Emotionally Abused Not on file 05/05/2024 Physically Abused Not on file 05/05/2024 Sexually Abused Not on file 05/05/2024 Physically or Sexually Abused Not on file [...] place to sleep or slept in a chcf (including now)? No 05/02/2023 Hunger Vital Sign [...] Sign Reading Time Taken Comments Blood Pressure 124/69 09/16/2024 11:09 AM EST Pulse 62 09/16/2024 11:09 AM EST Temperature 36.5 C (97.7 F) 05/03/2023 7:00 AM EDT Respiratory Rate 12 04/01/2024 9:49 AM EDT Oxygen Saturation 97% 09/16/2024 11:09 AM EST Inhaled Oxygen Concentration - - Weight 86.6 kg (191 lb) 09/16/2024 11:09 AM EST Height 182.9 cm (6') 04/01/2024 9:49 AM EDT Body Mass Index 25.9 04/01/2024 9:49 AM EDT Plan of Treatment Upcoming Encounters Date Type Department Care Team (Late st Contact Info) Description 04/20/2025 10:00 AM EDT Office Visit [facility] Heart at [facility] [address] [place] [address] Eliceo Espinoza MD [address] [place] [address] Health Maintenance Due Date Last Done Comments CT Colonography 1951 Colonoscopy 1950 Colorectal Cancer Screening 1950 FIT-DNA 1950 FIT 1950 FOBT 1950 Medicare Annual Wellness (AWV) 1950 Sigmoidoscopy 1951 Diabetes: Retinopathy Screening 1961 Depression Screening 1963 Diabetes: Urine Protein Screening 1970 Adult Tetanus 1973 Fall Risk Screening 2016 Zoster Vaccines (2 of 2) 10/07/2017 08/12/2017, 07/13 Pneumococcal Vaccine: 65+ Years (2 of 2 - PCV) 08/12/2018 08/12/2017, 08/04/2014 Diabetes: Hemoglobin A1C 01/22/2022 10/24/2021 COVID-19 Vaccine ( season) 2024 01/18/2021 Influenza Vaccine Completed 08/21/2024, , 08/15/2022, Additional history exists HIB Vaccines Aged Out No longer eligi ble based on patient's age to complete this topic HPV Vaccines Aged Out No longer eligi ble based on patient's age to complete this topic IPV Vaccines Aged Out No longer eligi ble based on patient's age to complete this topic Meningococcal B Vaccine Aged Out No l onger eligible based on patient's age to complete this topic Meningococcal Vaccine Aged Out No michele leann eligible based on patient's age to complete this topic Rotavirus Vaccines Aged Out No longer eligible based on patient's age to complete this topic Advance Directives * Full Code (Latest Code Status on File) Date Activated Date Inactivated Comments 05/02/2023 5:35 PM 05/03/2023 3:13 PM * Full Code Date Activated Date Inactivated Comments 11/15/2022 3:14 PM 11/20/2022 8:07 PM Care Teams Typing Bookkeeper Relationship Specialty Start Date End Date Haritha Argueta MD [address] [facility] #A PCP - General 10/16/22
--- OUTSIDE RECORDS SUMMARY | 2025-04-15 08:51 | XMS_ITS | Referral Summary ---
Author Organization [facility] Address [address] [place] [address] Care Team Providers Care Glass Belt Sander Name Role Phone Haritha Argueta MD Primary Care Provider [phone] Encounters Date Type Department Care Team Description 02/27/2025 Refill [facility] [address] [place] [address] Janee Rayo CNP Acute on chronic systolic congestive heart failure (CMS/HCC); Mixed hyperlipidemia 02/05/2025 Orders Only [facility] [address] [place] [address] Lorie Soliman MA Hyperlipidemia, unspecified hyperlipidemia type from Last 3 Months Allergies Active Allergy Reactions Criticality Noted Date [...] cardiomyopathy 09/16/2024 Coronary artery disease invo lving [place] coronary artery of [place] heart without angina pectoris 09/16/2024 Diarrhea 09/16/2024 [...] DCCV on 10/24. Continue Eliquis and Carvedilol. [id number]- 7, D/W Dr Espinoza- EP and he [...] (10/18/2022): Added automatically from request for surgery [id number] Assessment & Plan (04/01/2024 12:53 PM EDT): [id number]= 6 Continue eliquis anticoagulation. Continue coreg- rate is well controlled and pt remains in Sinus rhythm RTC [address] Espinoza Assessment & Plan (11/28/2022 3:50 PM EST): as above- s/p DCCV on 10/24. Continue Eliquis and Carvedilol. 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 No 05/02/2023 Hunger Vital Sign [...] Description 04/20/2025 10:00 AM EDT Office Visit [facility] Heart at [facility] [address] [place] [address] Eliceo Espinoza MD [address] [place] [address] Advance Directives * Full Code (Latest Code Status on File) Date Activated Date Inactivated Comments 05/02/2023 5:35 PM 05/03/2023 3:13 PM * Full Code Date Activated Date Inactivated Comments 11/15/2022 3:14 PM 11/20/2022 8:07 PM Care Teams Glass Belt Sander Relationship Specialty Start Date End Date Haritha Argueta MD [address] [facility] #A PCP - General 10/16/22
--- OUTSIDE RECORDS SUMMARY | 2025-04-15 08:51 | XMS_ITS | Encounter Summary ---
Author Organization [facility] Address [address] [place] [address] Care Team Providers Care Mold Cooler Name Role Phone Haritha Argueta MD Primary Care Provider [phone] Reason for Visit * Reason Comments Med Refill Encounter Details Date Type Department Care Team ([facility] st Contact Info) Description 12/08/2023 Refill [facility] at [facility] [address] [place] [address] Janee Rayo, PRODUCTION MAINTENANCE TECHNICIAN [address] [place] [phone] Acute on chronic systolic congestive heart failure (CMS/HCC) Social History Tobacco Use Types Packs/Day Years [...] Description 04/20/2025 10:00 AM EDT Office Visit [facility] [address] [place] [address] Eliceo Espinoza MD [address] [place] [address] documented as of this encounter Visit Diagnoses Diagnosis Acute on chronic systolic congestive heart failure (CMS/HCC) documented in this encounter Care Teams Mold Cooler Relationship Specialty Start Date End Date Haritha Argueta MD [address] [facility] #A PCP - General 10/16/22 documented as of this encounter
--- OUTSIDE RECORDS SUMMARY | 2025-04-15 08:51 | XMS_ITS | Patient Health Record ---
Author Organization [facility] Address [address] [place] [id number] Care Team Providers Care Hay Stacker Operator Name Role Phone Cabrera Calderón Unavailable [phone] . Unavailable Unavailabl e Migration, Provider Unavailable Unavailable Reason For Referral No Information Medications Medication SIG (Take, Route, Frequency, Duration) [...] 1 tab(s) orally every 24 hours Active Social History Tobacco Use: Social History Observation Description Date Details (start date - stop date) Former Smoker NA - 02/01/1992 Smoking: Question Answer Notes Are you a: former smoker How long has it been since y ou last smoked? > 10 years When did you stop smoking? 02/01/1992 Tobacco Non-User Additional Findings: Ex-heavy cigarette smoker (20-30/day) 1 pack/day Total Pack Years = 20 Alcohol screen Question Answer Notes Did you have a drink containing alcohol in the p ast year? No Interpretation Negative Problems Problem Type SNOMED Code ICD Code Onset Dates Problem Status W/U Status Risk Notes Problem Onychocryptosis (253853919) Onychocryptosis (703.0) Active confirmed tibial border Problem Pain in limb (31770200) Pain in limb (729.5) Active confirmed Problem Type II diabetes mellitus without complication (676588571) Diabetes mellitus, type II, w/o complications, not stated as uncontrolled (250.00) Active confirmed Encounters Encounter Location Date Provider Diagnosis [facility] [address] [phone] 09/05/2024 Provider Migration Plan Of Treatment No Information Insurance Providers Payer Name Payer Address Payer Phone Subscriber Number Group Number Insured Name Patient Relationship to Insured Coverage Start Date Coverage End Date [employer] Benefits [address] [address] [place] [address] 1603 [id number] Gadiel Liang Self - patient is the insured Medical (General) History Medical History History ICD Code Diabetes Mellitus, type II, non-insulin requiring Hypercholestrolemia Surgical History Surgery Date(Month/Year) Appendectomy Tonsillectomy Shoulder Hospitalization History Reason Date(Month/Year) Related to above listed surgeries
--- OUTSIDE RECORDS SUMMARY | 2025-04-15 08:51 | XMS_ITS | Encounter Summary ---
Author Organization [facility] Address [address] [place] [address] Phone Care Team Providers Care Therapeutic Recreation Leader Name Role Phone Cabrera Dupont MD Primary Care Provider [phone] Encounter Details Date Type Department Care Team (Late st Contact Info) Description 07/04/2022 Orders Only [facility] [address] [place] [address] Conversion, Onbase Social History Tobacco Use Types [...] r Schedule OUTSIDE LAB SCAN Lab Ordered: 07/04/2022 documented as of this encounter Visit Diagnoses Not on filedocumented in this encounter Care Teams Therapeutic Recreation Leader Relationship Specialty Start Date End Date Cabrera Dupont MD [address] [facility] [place] [address] PCP - General 11/30/20 documented as of this encounter
--- OUTSIDE RECORDS SUMMARY | 2025-04-15 08:51 | XMS_ITS | Encounter Summary ---
Author Organization [facility] Address [address] [place] [address] Care Team Providers Care Field Map Editor Name Role Phone Haritha Argueta MD Primary Care Provider [phone] Reason for Visit * Reason Comments Med Refill Encounter Details Date Type Department Care Team (Late st Contact Info) Description 05/26/2023 Refill [facility] Ortho Surgery [address] [place] [address] Alta Schulz, ASSEMBLER INSTALLER STRUCTURES [address] [place] [address] Paroxysmal atrial fibrillation (CMS/HCC); S/P ablation of atrial fibrillation Social History Tobacco Use Types Packs/Day Years [...] and heating? Not hard at all 05/02/2023 [place] Safety & Environment Answer Date Rec orded [...] place to sleep or slept in a detention (including now)? No 05/02/2023 Hunger Vital Sign [...] suspected to have Coronavirus/COVID-19? No / Unsure 05/02/2023 11:32 AM EDT documented as of this encounter Plan of Treatment Upcoming Encounters Date Type Department Care Team ([facility] st Contact Info) Description 04/20/2025 10:00 AM EDT Office Visit [facility] Heart at [facility] [address] [place] [address] Eliceo Espinoza MD [address] [place] [address] documented as of this encounter Visit Diagnoses Diagnosis Paroxysmal atrial fibrillation (CMS/HCC) Atrial fibrillation S/P ablation of atrial fibrillation Other postprocedural status documented in this encounter Care Teams Field Map Editor Relationship Specialty Start Date End Date Haritha Argueta MD [address] [facility] #A PCP - General 10/16/22 documented as of this encounter
--- OUTSIDE RECORDS SUMMARY | 2025-04-15 09:07 | XMS_ITS | CCD ---
Author Organization [facility] Care Team Providers Care Solar Project Coordination Specialist Name Role Phone PHYSICIAN, DEFAULT Unavailable Unavailable PHYSICIAN, DEFAULT Unavailable Unavailable PHYSICIAN, DEFAULT Unavailable Unavailable PHYSICIAN, DEFAULT Unavailable Unavailable Cabrera Dupont Unavailable Cabrera Dupont MD Primary Care Provider [phone] Cabrera Dupont Primary Care Unavailab le Hatipoglu, Dr. Mandie Piper Attending Irmai lable Hatipoglu, Dr. Mandie Piper Referring Unavai lable Self, Referral Referring Unavailable Hatipoglu, Dr. Mandie Piper Attending Syed Dupont, Dr. Cabrera Gaspar Primary Care Unavailab le QUIROZ, DR JOSELUIS Ausitn Primary Care Unavailable YEARTONY QUIROS Attending Unavailable YEARTONY QUIROS Admitting Unavailable MISC, DR LOZADA Attending Unavailable WEST, DR GEORGIE Erwin Consulting Unavailable QUIROZ, DR JOSELUIS Austin Primary Care Unavailable MISC, DR LOZADA Admitting Unavailable MISC, DR LOZADA Consulting Unavailable TONA ESPINOZA Admitting Unavailable QUIROZ, DR JOSELUIS Austin Primary Care Unavailable TONA ESPINOZA Attending Unavailable SHAKIRATONA Shepherd Consulting Unavailable MAUREENJANEE Consulting Unavailable MAUREEN, JANEE [...] ., DR ANGEL Admitting Unavailable QUIROZ, DR WRIGHTIA E Primary Care Unavailable ALEJANDRO ., DR ANGEL Attending Unavailable ALEJANDRO ., DR ANGEL Consulting Unavailable RY CLINTON Consulting Unavailable Joseluis Quirzo Unavailable MD Joseluis Quiroz Primary Care Provider [phone] DO Merly Paul Attending Provider [phone] Joseluis Quiroz Primary Care Unavailable Merly Paul Admitting Unavailable Merly Paul Attending Unavailable Cabrera Dupont MD Primary Care Provider Cabrera Dupont MD Primary Care Provider Joseluis Quiroz MD Primary Care Provider [phone] JANEE REDDY Attending Unavailable MILAN PEÑA Attending Unavailable RAPHAEL SPRINGER Attending Unavailable HENRRY JOHNSON Attending Unavailable JOSELUIS QUIROZ Referring Unavailable HENRRY JOHNSON Attending Unavailable ISAURA GARBER Attending Unavailable ISAURA GARBER Referring Unavailable ANSLEY CHAVES Attending Unavailable ISAURA GARBER Referring Unavailable Allergies Allergy Classification Reported Allergen(s) Allergy Type Date of Onset Reaction(s) Facility (2 sources) Lisinopril Drug Allergy 5 Other: See Comments [facility] Work Phone: (1 source) Lisinopril Propensity to adverse reactions 5 [facility] Work Phone: Medications Current Medications Medication Drug Class(es) Dates Sig (Normalized) Sig (Original) [id number] 200 actuat albuterol 0.09 mg/actuat metered dose inhaler (10 sources) beta2-Adrenergic Agonist Start: 03-08-2024 take 2 puff(s) by inhalation every four hours albuterol HFA 90 mcg/act inhaler Inhale 2 puffs every 4 (four) hours if needed 03/08/2024 Active Amiodarone (1 source) Antiarrhythmic Amiodarone Active apixaban 5 mg oral tablet (20 sources) Factor Xa Inhibitor Start: 02-26-2024 take [...] other day for 0 *Pick strength-form from [employer] for eRX* Jul, Active Ocuvite TABS WYATT [...] Oral Once a day *Pick strength-form from [employer] for eRX* Jul, Active Start: 07-23-2022 take 1 tablet by woody th twice daily buPROPion HCl ER (XL) 150MG buPROPion HCl ER (XL) 150MG, 1 (one) Tablet Tablet two times daily # 180, 07/23/2022, Ref. x1. Active Oral two times daily for 0 *Pick strength-form from [employer] for eRX* Jul, Active Start: 04-13-2020 take [...] (20 sources) Ergot Derivative Start: 04-13-20 20 take 1 tablet by mouth every other day cabergoline (Dostinex) 0.5 MG tablet Take 0.5 mg by mouth every other day 10/10/2023 Active Comment on above: Take one tablet ever y other day carvedilol 6.25 mg oral tablet (19 sources) alpha-Adrenergic Veronica, beta-Adrenergic Veronica Start: 02-26-20 24 take 6.25 mg by mouth twice daily Carvedilol Active 6.25 MG PO Twice daily March 06, 2024 12:00am Citracal Plus (5 sources) Citracal Plus Active CYANOCOBALAMIN, VITAMIN B-12, (VITAMIN B-12 ORAL) (2 sources) CYANOCOBALAMIN, VITAMIN B-12, (VITAMIN B-12 ORAL) Take by mouth once daily. 0 Active Comment on above: Take by mouth once d aily. dapagliflozin 10 mg oral tablet (19 sources) Sodium-Glucose Cotransporter 2 Inhibitor Start: 03-06-20 24 take 1 tablet by mouth once daily before mealtime Farxiga 10 mg Take 1 tablet (10 mg) by mouth once daily in the morning. Take before meals. 05/05/2024 Active escitalopram 10 mg oral tablet (18 sources) Serotonin Reuptake Inhibitor Start: 08-19-20 take 1 tablet by mouth once daily [...] once daily. furosemide 40 mg oral tablet (7 sources) Loop Diuretic End: 12-29-19 take 1 tablet by mouth once daily for edema furosemide (Lasix) 40 MG tablet TAKE 1 TABLET BY MOUTH DAILY FOR FLUID RETENTION DIRECTED 12/29/2024 Discontinued (Therapy completed) 3 ml insulin glargine 100 unt/ml pen [...] once daily. lisinopril 5 mg oral tablet (20 sources) Angiotensin Converting Enzyme Inhibitor Start: 05-04-2024 [...] aily. rosuvastatin calcium 40 mg oral tablet (11 sources) HMG-CoA Reductase Inhibitor Start: 2023 take [...] as directed for 30 *Pick strength-form from [employer] for eRX* Jul, Active take 1 tablet by woody th once daily as needed Sildenafil Citrate 50 MG 1 tablet as needed Orally daily as directed for 30 days *Pick strength-form from [employer] for eRX* Active spironolactone 25 mg oral tablet (19 sources) Aldosterone Antagonist Start: 03-06-2024 take 12.5 [...] Entry Transdermal daily for 0 *Reorder from [employer] for eRx and Interaction Alerts* Jul, Active [...] [Unspecified abdominal pain] Episodic Acute cerebrovascular disease (10 sources) Cerebrovascular accident; Translations: [Cerebral infarction, unspecified] Onset: 2 07-09-2024 Chronic Anxiety disorders (10 sources) Anxiety; Translations: [Anxiety disorder, unspecified] Chronic Cardiac and circulatory congenital anomalies (10 sources) Patent foramen ovale; Translations: [PFO (patent foramen ovale)] Onset: 3 07-09-2024 Chronic Cardiac dysrhythmias (20 sources) Paroxysmal atrial fibrillation; Translations: [Unspecified atrial fibrillation] Onset: 2 Chronic Chronic obstructive pulmonary disease and bronchiectasis (1 source) Bronchitis, not specified as acute or chronic; Translations: [Bronchitis, not specified as acute or chronic] 03-06-2024 Episodic Conduction disorders (1 source) Unspecified right bundle-branch block; Translations: [UNSPECIFIED RT BUNDLE-BRANCH BLOCK] Onset: 3 Chronic Congestive heart failure; nonhypertensive (20 sources) Chronic systolic (congestive) heart failure; Translations: [Acute on chronic systolic (congestive) heart failure] Onset: 3 Chronic Coronary atherosclerosis and other heart disease (5 sources) Coronary arteriosclerosis; Translations: [Atherosclerotic heart disease of [place] coronary artery without angina pectoris] Onset: 4 12-29-2024 Chronic Delirium, dementia, and amnestic and other cognitive disorders (20 sources) Alzheimer's disease; Translations: [Alzheimer's disease with late onset] Onset: 4 06-27-2024 Chronic Diabetes mellitus with complications (20 sources) Type 2 diabetes mellitus; Translations: [Diabetes with other specified manifestations, type II or unspecified type, not stated as uncontrolled] Onset: 2 09-08-2015 Chronic Diabetes mellitus without complication (7 sources) Type 2 diabetes mellitus without complications; Translations: [Diabetes mellitus] Onset: 2 03-06-2024 Chronic Disorders of lipid metabolism (20 sources) Hyperlipidemia; Translations: [Other and unspecified hyperlipidemia] Onset: 2 Chronic Diverticulosis and diverticulitis (10 sources) Diverticulosis of colon; Translations: [Diverticulosis of large intestine without perforation or abscess without bleeding] Onset: 4 07-09-2024 Chronic Esophageal disorders (1 source) Gastro-esophageal reflux disease without esophagitis; Translations: [GERD WITHOUT ESOPHAGITIS] Onset: 3 Chronic Essential hypertension (11 sources) Hypertensive disorder; Translations: [Essential (primary) hypertension] Onset: 4 02-11-2024 Chronic Miscellaneous mental health disorders (10 sources) 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; Translations: [Other specified disorders of adult personality and behavior] Onset: 4 06-27-2024 Chronic Mood disorders (10 sources) Depressive disorder; Translations: [Depression] Onset: 4 06-27-2024 Chronic Nausea and vomiting (7 sources) Nausea; Translations: [Nausea] Episodic Occlusion or stenosis of precerebral arteries (12 sources) Bilateral stenosis of carotid arteries; Translations: [Occlusion and stenosis of bilateral carotid arteries] Onset: 4 07-09-2024 Chronic Osteoarthritis (3 sources) Unspecified osteoarthritis, unspecified site; Translations: [Osteoarthritis of right hip joint] Onset: 3 02-09-2025 Chronic Other aftercare (7 sources) Long-term current use of insulin; Translations: [intermediate teacher (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 insulin] Episodic Other and [...] Translations: [Hyperprolactinemia] 05-07-2024 Chronic Other endocrine disorders (10 sources) Pituitary mass; Translations: [Other disorders of pituitary gland] Onset: 4 06-27-2024 Chronic Other endocrine disorders (10 sources) Primary hyperparathyroidism; Translations: [Primary hyperparathyroidism] Onset: [...] Chronic Other nutritional; endocrine; and metabolic disorders (12 sources) Hypercalcemia; Translations: [Hypercalcemia] Onset: 3 12-23-2012 Chronic Other nutritional; endocrine; and metabolic disorders (7 sources) Loss of appetite; Translations: [Anorexia] Episodic Other nutritional; endocrine; and metabolic disorders (6 sources) Weight loss; Translations: [Abnormal weight loss] Episodic Other nutritional; endocrine; and metabolic disorders (1 source) Abnormal weight loss; Translations: [Weight loss] Episodic Other nutritional; endocrine; and metabolic disorders (5 sources) Body mass index 25-29 - overweight; Translations: [Overweight] Onset: 5 12-29-2024 Episodic Angelica-; endo-; and myocarditis; cardiomyopathy (except that caused by tuberculosis or sexually transmitted disease) (5 sources) Cardiomyopathy; Translations: [Other cardiomyopathies] Onset: 4 12-29-2024 Chronic 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; 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] Onset: 0 11-16-2009 Chronic Unclassified (1 source) CONTACT W/AND (SUSP) EXPOS COVID-19; Translations: [CONTACT W/AND (SUSP) EXPOS COVID-19] Onset: 3 Past or Other Problems Problem Classification Problem Date Documented Da te Episodic/Chronic Administrative/social admission (11 sources) Patient encounter status; Translations: [Dietary counseling and surveillance] Onset: 07-09-2024 Resolved: 07-09-2024 02-11-2024 Episodic Menopausal disorders (1 source) Hormone replacement therapy; Translations: [HORMONE REPLACEMENT THERAPY] Onset: 11-13-2022 Episodic Other aftercare (1 source) Other exterminator termite (current) drug therapy; Translations: [OTH KNIFE SHARPENER CURRENT DRUG THERAPY] Onset: 11-13-2022 Episodic Other aftercare (1 source) intermediate teacher (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 oral hypoglycemic drugs; Translations: [KNIFE SHARPENER USE ORAL HYPOGLYCEMIC DX] Onset: 11-13-2022 Episodic Other aftercare (1 source) intermediate teacher (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 insulin; Translations: [SKILLED NURSING CURRENT USE OF INSULIN] Onset: 11-13-2022 Episodic Other aftercare (1 source) intermediate teacher (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 aspirin; Translations: [SKILLED NURSING CURRENT USE OF ASPIRIN] Onset: 10-17-2022 Episodic Other and unspecified benign neoplasm (12 sources) Prolactinoma; 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 [...] DEFICIT] Onset: 11-13-2022 Episodic Other circulatory disease (10 sources) History of cerebrovascular accident due to ischemia; Translations: [Personal history of transient ischemic attack (TIA), and cerebral infarction without residual deficits] Onset: 06-27-2024 06-27-2024 Episodic Other circulatory disease (10 sources) History of transient ischemic attack; Translations: [Personal history of transient ischemic attack (TIA), and cerebral infarction without residual deficits] Onset: 10-26-2022 07-09-2024 Episodic Other circulatory disease (2 sources) Personal history of other diseases of the circulatory system; Translations: [Personal history of other diseases of the circulatory system] Onset: 05-03-2023 Episodic Other gastrointestinal disorders (11 sources) Diarrhea; Translations: [Diarrhea, unspecified] Onset: 07-09-2024 Resolved: 07-09-2024 03-18-2024 Episodic Other gastrointestinal disorders (11 sources) Fecal incontinence with fecal urgency; Translations: [Full incontinence of feces] Onset: 07-09-2024 03-18-2024 Episodic Other gastrointestinal disorders (11 sources) Constipation; Translations: [Constipation, unspecified] Onset: 07-09-2024 03-18-2024 Episodic Other lower respiratory disease (3 sources) Shortness of breath; Translations: [SHORTNESS OF BREATH] Onset: 11-10-2022 Episodic Other lower respiratory disease (1 source) Dyspnea, unspecified; Translations: [DYSPNEA UNSPECIFIED] Onset: 10-17-2022 Episodic Other screening for suspected conditions (not mental disorders or infectious disease) (13 sources) Cardiovascular stress test abnormal; Translations: [Abnormal result of other cardiovascular function study] Onset: 04-28-2015 04-28-2015 Episodic Residual codes; unclassified (10 sources) Memory impairment; Translations: [Other amnesia] Onset: 06-27-2024 06-27-2024 Episodic Residual codes; unclassified (10 sources) H/O: atrial fibrillation; Translations: [Other specified postprocedural states] Onset: 05-02-2023 Resolved: 07-09-2024 07-09-2024 Episodic Residual codes; unclassified (2 sources) Other specified postprocedural states; Translations: [Other specified postprocedural states] Onset: 05-03-2023 Episodic Screening and history of mental health and substance abuse codes (1 source) Personal history of nicotine dependence; Translations: [PERSONAL HISTORY OF NICOTINE DEPEND] Onset: 11-13-2022 Episodic Sprains and strains (12 sources) Strain of rotator cuff of shoulder; Translations: [Strain of muscle(s) and tendon(s) of the rotator cuff of unspecified shoulder, initial encounter] Onset: 06-16-2013 Resolved: 07-09-2024 06-16-2013 Episodic Syncope (5 sources) Vasovagal syncope; Translations: [Syncope and collapse] Onset: 10-26-2022 12-29-2024 Episodic Results Test Name Value Interpretation Reference Range Facility 36on 12-24-2024 36 Regarding lab result s from 12/10/2024: MD Tarah Pandya MA Good lipids, continue current medications. Recheck lipids and AST ALT in 6-month. LM for patient. Told him we could order repeats labs at his next apt in 3 months (March) with Dr. Espinoza. Asked him to call the office with any questions. [facility] [place] [address] Ultrasound Report Signed Patient: GADIEL SMITH MR#: [id number] : 1950 Acct:[id number] Age/Sex: 74 / M ADM Date: 12/23/24 Loc: US Attending Dr: Henrry Johnson M.D. Ordering Physician: Henrry Johnson M.D. Date of Service: 12/23/24 Procedure(s): US thyroid Accession Number(s): [id number] cc: Joseluis Quiroz M.D.; Henrry Johnson M.D. [place] [address] Patient Name: GADIEL SMITH MRN: [id number] date: 1950 Sex: M Assigned Patient Location: US Current Patient Location: US Accession/Order Number: [id number] Exam Date: 12/23/2024 12:20 Report Date: 12/23/2024 13:12 At the request of: HENRRY JOHNSON Procedure: US thyroid EXAMINATION: US thyroid HISTORY: Thyroid Nodule COMPARISON: 06/09/2024 TECHNIQUE: Sonographic images of the thyroid gland were obtained. FINDINGS: The right thyroid lobe measures 3.8 x 1.7 x 1.1 cm. 6 mm TR 4 nodule. The thyroid isthmus measures 5 mm, thickened. No focal nodule The left thyroid lobe measures 3.7 x 1.6 x 1.5 cm. Single 9 mm TR 4 nodule US/US thyroid IMPRESSION: Bilateral subcentimeter TR 4 nodules TI-RADS: The [employer] TI-RADS committee's white paper recommendations for thyroid lesions classified as TR4 (moderately suspicious) are listed below: > 1.0 cm. Follow-up ultrasound in 1, 2, 3, and 5 years. > 1.5 cm. FNA. J. Am Dionicio Radiol 2017;14:587-595. Electronically authenticated by: GEORGIE DAVIES Date: 12/23/2024 13:12 Dictated By: Georgie Davies M.D. Signed By: 12/23/241314 DD/ 11 TD/TT: Document Review Specialist: [facility] Radiology, Radiologist, - 12/23/2024 [place] [address] Ultrasound Report Signed Patient: GADIEL SMITH MR#: [id number] : 1950 Acct:[id number] Age/Sex: 74 / M ADM Date: 12/23/24 Loc: US Attending Dr: Henrry Johnson M.D. Ordering Physician: Henrry Johnson M.D. Date of Service: 12/23/24 Procedure(s): US thyroid Accession Number(s): [id number] cc: Joseluis Quiroz M.D.; Henrry Johnson M.D. The [place] [id number] Patient Name: GADIEL SMITH MRN: [facility]:[id number] date: 1950 Sex: M Assigned Patient Location: US Current Patient Location: Accession/Order Number: [id number] Exam Date: 12/23/2024 12:20 Report Date: 12/23/2024 13:12 At the request of: HENRRY JOHNSON Procedure: US thyroid EXAMINATION: US thyroid HISTORY: Thyroid Nodule COMPARISON: 06/09/2024 TECHNIQUE: Sonographic images of the thyroid gland were obtained. FINDINGS: The right thyroid lobe measures 3.8 x 1.7 x 1.1 cm. 6 mm TR 4 nodule. The thyroid isthmus measures 5 mm, thickened. No focal nodule The left thyroid lobe measures 3.7 x 1.6 x 1.5 cm. Single 9 mm TR 4 nodule US/US thyroid IMPRESSION: Bilateral subcentimeter TR 4 nodules TI-RADS: The [employer] TI-RADS committee's white paper recommendations for thyroid lesions classified as TR4 (moderately suspicious) are listed below: > 1.0 cm. Follow-up ultrasound in 1, 2, 3, and 5 years. > 1.5 cm. FNA. J. Am Dionicio Radiol 2017;14:587-595. Electronically authenticated by: GEORGIE DAVIES Date: 12/23/2024 13:12 Dictated By: Georgie Davies M.D. Signed By: 12/23/241314 DD/ 11 TD/TT: Document Review Specialist: [facility] Radiology Study observation (narrative) [facility] US Thyroid glandOrdered By: Radiologist Radiology on 12-23-2024 [facility] Work Phone: Office Visiton 09-16-2024 Follow-up visit [id number] Gadiel Smith 1950 Date Provider Department Center 09/16/2024 [id number] PEÑA CARD [facility] Family History Problem Relation Age of [...] Paternal Grandmother Paternal Grandfather Other Level of Service:94306 DC OFFICE/OUTPATIENT ESTABLISHED MOD MDM 30 MIN Reason for Visit and Comments: Atrial Fibrillation [80] - S/p afib ablation vasovagal syncope [Other] Transient Ischemic Attack [385120] - X2 Carotid stenosis, bilateral [Other] Hyperlipidemia [182] - HAD LABS 09/15/24 Chronic systolic congestive heart failure [Other] - Congestive heart failure due to NICM Heart failure is stable . NYHA Class II Normal [facility] Clar[facility] GADIEL SMITH ([id number]) 1950 M Date Time Provider Department 06/18/24 RICKEY SALAMANCA During your visit today, we recorded the following information about you: Greg River 06/18/2024 4:24 PM Signed Received a mail from [facility] with a notice on the Authorization for MRI, Brain, W/O Contrast Dated: 06/04/24 Status: Approve Service Requested: MRI, Brain, W/O Contrast Effective Dates: 06/04/2024 - 09/01/2024 Reference #: [id number] Uploaded into scan docs. Please allow time for upload. Allergies As of Date: 06/18/2024 Noted Allergy Reaction LISINOPRIL 04/28/2015 14 - Other: See Comments Comments: Fatigue Date Reviewed: 01/21/2019 Reviewed by: Maricruz Diaz (Jazmin) - Fully Assessed Reason for Visit: Insurance [...] LANCETS) lancets Use as instructed - Insulin [place], Disposable, (BD ULTRAFINE III MINI PEN) 31 [...] Status:Closed by GREG RIVER on 06/18/24 Normal [facility] 36on 04-21-2024 36 Regarding lab result s from 04/16/2024: YUN Gustafson MA Let him know liver function is perfect and cholesterol levels also are great- continue all meds and see you next time. Good job!! Spoke with patient's and made her aware. Normal [facility] Capillary blood glucose corey urement by glucometer (mass/volume)Ordered By: Merly Paul on 04-14-2024 Glucose [Mass/Vol] 73 mg/dL Normal [facility] Comment on above: Random Glucose Refer ence Range is dependent on time and content of last meal. Glucose of more than 200 mg/dL in a nonstressed, ambulatory subject supports the diagnosis of Diabetes Mellitus. Result Comment: [place] Glucose Reference Range is dependent on time and content of last meal. Glucose of more than 200 mg/dL in a nonstressed, ambulatory subject supports the diagnosis of Diabetes Mellitus. PERFORMED BY: [facility] [place] [address] PATHOLOGIST CUSTOMER SERVICE AND SALES CONSULTANT ANJANA SEWELL M.D. Performed By: #### G LULS #### Point of Care testing , [facility] 04-14-2024 L Specimen: [id number] Received: 04/14/24 Status: MAYO Chatterjeeumberto Num: [id number] Spec Type: Surgical Subm Dr: Merly Paul DO Tissues: A Colon Biopsy (CECAL POLYP) B Colon Biopsy (ASC POLYPS) C Colon Biopsy (TRANSV POLYP) D Colon Biopsy (DESC POLYP) Procedures: HE/8, Gross/Micro L4/4 Age/ Patient Sex Location Account Attending Physician Gadiel Smith 73/M [id number] Merly Paul DO SPEC NUM: [id number] RECD: 04/14/24 STATUS: MAYO SHI NUM: [id number] DIONICIO: 04/14/24- SUBM DR: Merly Paul DO ENTERED: 04/14/[address] [facility] [address]: Joseluis Quiroz MD SPEC TYPE: [...] adenoma Clinical Information Diarrhea, constipation ---- Specimen: [id number] Received: 04/14/24 Status: MAYO Shi Num: [id number] Spec Type: Surgical Subm Dr: Merly Paul DO Tissues: A Colon Biopsy (CECAL POLYP) B Colon Biopsy (ASC POLYPS) C Colon Biopsy (TRANSV POLYP) D Colon Biopsy (DESC POLYP) Procedures: HE/Claribel, Gross/Micro L4/4 ---- Patient: Gadiel Smith [id number] (Continued) ---- Specimen: [id number] Received: 04/14/24 (Continued) Signed (signature on file) Suki Jackson MD 04/16/24 1330 ---- Specimen: [id number] Received: 04/14/24 Status: MAYO Shi Num: [id number] Spec Type: Surgical Subm Dr: Merly Paul, Tissues: A Colon Biopsy (CECAL POLYP) B Colon Biopsy (ASC POLYPS) C Colon Biopsy (TRANSV POLYP) D Colon Biopsy (DESC POLYP) Procedures: , Gross/Micro L4/4 ---- Patient: Gadiel Smith [id number] (Continued) ---- Specimen: [id number] Received: 04/14/24-123 (Continued) Gross Description Received are 4 formalin [...] mucosal tissue fragment, entirely submitted in D1. [facility] Codes [id number] ---- ---- Specimen: [id number] Received: 04/14/24 Status: MAYO Chatterjeeumberto Num: [id number] Spec Type: Surgical Subm Dr: Merly Paul DO Tissues: A Colon Biopsy (CECAL POLYP) B Colon Biopsy (ASC POLYPS) C Colon Biopsy (TRANSV POLYP) D Colon Biopsy (DESC POLYP) Procedures: Rivas LOFTON/Andrew L4/4 ---- Patient: Gadiel Smith [id number] (Continued) ---- Signed (signature on file) Suki Jackson MD 04/16/24 1330 [facility] Office Visiton 04-01-2024 Follow-up visit [id number] Gadiel Smith 1950 M Date Provider Department Center 04/01/2024 JANEE JAIME CARD [facility] Family History [...] Paternal Grandmother Paternal Grandfather Other Level of Service:05446 DC OFFICE/OUTPATIENT ESTABLISHED MOD MDM 30 MIN Reason for Visit and Comments: Follow-up [187272] - 7 month follow up Normal [facility] ECHOCARDIO M/2D COMPLETEon 0 02-28-2023 ECHOCARDIO M/2D COMPLETE Patient: GADIEL SMITH. Exam Date: 02/28/2023 : 1950 Gender:M Ordering : TONA ESPINOZA Admission #: [id number] Family : DR JOSELUIS QUIROZ M.D. Order #: [id number] CLICK HERE TO VIEW EXAM ECHOCARDIOGRAM REPORT [...] Left Atrium LA Volume Index (2D A2C): 37181 mm3 Left Atrium Systolic Dimension: 4.90 cm [...] Patten M.D. on 02/28/2023 at 20:13 Normal [facility] PROF 14(COMP METB)on 023 Albumin [Mass/Vol] 3.7 g/dL Normal 3.4-5.0 [facility] Comment on above: Performed By: #### C MP #### [facility] [address] [place] [address] Dr. Esme Jackson Albumin/Globulin [Mass ratio] 1.1 {ratio} Normal [facility] Comment on above: Performed By: #### C MP #### [facility] [address] [place] [address] Dr. Esme Jackson ALP [Catalytic activity/Vol] 65 U/L Normal 46-116 [facility] Comment on above: Performed By: #### C MP #### [facility] [address] [place] [address] Dr. Esme Jackson ALT [Catalytic activity/Vol] 26 U/L Normal 16-63 [facility] Comment on above: Performed By: #### C MP #### [facility] [address] [place] [address] Dr. Esme Jackson Anion gap [Moles/Vol] 10.8 mmol/L Normal [facility] Comment on above: Performed By: #### C MP #### [facility] [address] [place] [address] Dr. Esme Jackson AST [Catalytic activity/Vol] 16 U/L Normal 15-37 [facility] Comment on above: Performed By: #### C MP #### [facility] [address] [place] [address] Dr. Esme Jackson Bilirubin [Mass/Vol] 1.1 mg/dL Critically high 0.2-1.0 [facility] Comment on above: Performed By: #### C MP #### [facility] [address] [place] [address] Dr. Esme Jackson Calcium [Mass/Vol] 9.4 mg/dL Normal 8.5-10.1 [facility] Comment on above: Performed By: #### C MP #### [facility] [address] [place] [address] Dr. Esme Jackson Chloride [Moles/Vol] 103 mmol/L Normal 98-107 [facility] Comment on above: Performed By: #### C MP #### [facility] [address] [address] [address] Esme Jackson CO2 [Moles/Vol] 28.5 mmol/L Normal 21.0-32.0 [facility] Comment on above: Performed By: #### C MP #### [facility] [address] [address] [address] Esme Jackson Creatinine [Mass/Vol] 1.07 mg/dL Normal 0.70-1.30 [facility] Comment on above: Performed By: #### C MP #### [facility] [address] [place] [address] Dr. Esme Jackson EGFR-AF CONGOLESE >60 Normal >=60 [facility] Comment on above: Performed By: #### C MP #### [facility] [address] [address] [address] Esme Jackson EGFR-NON AF CONGOLESE >60 Normal >=60 [facility] Comment on above: Performed By: #### C MP #### [facility] [address] [address] [address] Esme Jackson Globulin (S) [Mass/Vol] 3.5 g/dL Normal [facility] Comment on above: Performed By: #### C MP #### [facility] [address] [address] [address] Esme Jackson Glucose [Mass/Vol] 190 mg/dL Critically high 74-106 [facility] Comment on above: Performed By: #### C MP #### [facility] [address] [address] [address] Esme Jackson Potassium [Moles/Vol] 5.3 mmol/L Critically high 3.5-5.1 [facility] Comment on above: Performed By: #### C MP #### [facility] [address] [address] [address] Esme Jackson Protein [Mass/Vol] 7.2 g/dL Normal 6.4-8.2 [facility] Comment on above: Performed By: #### C MP #### [facility] [address] [place] [address] Dr. Esme Jackson Sodium [Moles/Vol] 137 mmol/L Normal 136-145 [facility] Comment on above: Performed By: #### C MP #### [facility] [address] [place] [address] Dr. Esme Jackson Urea nitrogen [Mass/Vol] 14.0 mg/dL Normal 7.0-18.0 [facility] Comment on above: Performed By: #### C MP #### [facility] [address] [place] [address] Dr. Esme Jackson Urea nitrogen/Creatinine [Mass ratio] 13.1 mg/mg Normal [facility] Comment on above: Performed By: #### C MP #### [facility] [address] [place] [address] Dr. Esme Jackson BNPon 11-10-2022 Natriuretic peptide B (Bld) [Mass/Vol] 6259.0 pg/mL Critically high <=900.0 [facility] Comment on above: Performed By: #### B HOIST CYLINDER LOADER, BMP, HSTROPN #### [facility] [address] [place] [address] Dr. Esme Jackson CBC AUTO DIFFon 11-10-2022 BASO # 0.0 103/ul Normal 0.0-0.1 [facility] Comment on above: Performed By: #### C BC #### [facility] [address] [place] [address] Dr. Esme Jackson Basophils/100 WBC (Bld) 0.5 % Normal 0.2-2.0 [facility] Comment on above: Performed By: #### C BC #### [facility] [address] [place] [address] Dr. Emse Jackson EO # 0.3 103/ul Normal 0.0-0.7 [facility] Comment on above: Performed By: #### C BC #### [facility] [address] [place] [address] Dr. Esme Jackson Eosinophils/100 WBC (Bld) 3.6 % Normal 0.9-7.0 [facility] Comment on above: Performed By: #### C BC #### [facility] [address] [place] [address] Dr. Esme Jackson Erythrocyte distribution width (RBC) [Ratio] 14.8 % Normal 11.0-15.0 [facility] Comment on above: Performed By: #### C BC #### [facility] [address] [place] [address] Dr. Esme Jackson Hematocrit (Bld) [Volume fraction] 36.9 % Critically low 42.0-54.0 [facility] Comment on above: Performed By: #### C BC #### [facility] [address] [place] [address] Dr. Esme Jackson Hemoglobin (Bld) [Mass/Vol] 12.0 g/dL Critically low 14.0-18.0 [facility] Comment on above: Performed By: #### C BC #### [facility] [address] [place] [address] Dr. Esme Jackson IG # 0.04 10e3/ul Critically high 0.00-0.03 [facility] Comment on above: Performed By: #### C BC #### [facility] [address] [place] [address] Dr. Esme Jackson IG % 0.5 % Normal 0.0-0.5 [facility] Comment on above: Performed By: #### C BC #### [facility] [address] [place] [address] Dr. Esme Jackson LYMPH # 1.3 103/ul Normal 1.2-3.8 [facility] Comment on above: Performed By: #### C BC #### [facility] [address] [place] [address] Dr. Esme Jackson Lymphocytes/100 WBC (Bld) 18.2 % Critically low 20.5-60.0 [facility] Comment on above: Performed By: #### C BC #### [facility] [address] [place] [address] Dr. Esme Jackson MANUAL DIFF REQ NO Normal [facility] Comment on above: Performed By: #### C BC #### [facility] [address] [place] [address] Dr. Esme Jackson MCH (RBC) [Entitic mass] 28.0 pg Normal 25.9-34.0 [facility] Comment on above: Performed By: #### C BC #### [facility] [address] [place] [address] Dr. Esme Jackson MCHC (RBC) [Mass/Vol] 32.5 g/dL Normal 29.9-35.2 [facility] Comment on above: Performed By: #### C BC #### [facility] [address] [place] [address] Dr. Esme Jackson MCV (RBC) [Entitic vol] 86.0 fL Normal 80.0-94.0 [facility] Comment on above: Performed By: #### C BC #### [facility] [address] [place] [address] Dr. Esme Jackson MONO # 0.5 103/ul Normal 0.3-0.8 [facility] Comment on above: Performed By: #### C BC #### [facility] [address] [place] [address] Dr. Esme Jackson Monocytes/100 WBC (Bld) 7.3 % Normal 1.7-12.0 [facility] Comment on above: Performed By: #### C BC #### [facility] [address] [place] [address] Dr. Esme Jackson NEUT # 5.1 103/ul Normal 1.4-6.5 [facility] Comment on above: Performed By: #### C BC #### [facility] [address] [place] [address] Dr. Esme Jackson Neutrophils/100 WBC (Bld) 69.9 % Normal 43.0-75.0 [facility] Comment on above: Performed By: #### C BC #### [facility] [address] [place] [address] Dr. Esme Jackson Platelet mean volume (Bld) [Entitic vol] 10.3 fL Normal 9.5-13.5 [facility] Comment on above: Performed By: #### C BC #### [facility] [address] [place] [address] Dr. Esme Jackson PLT 220 103/ul Normal 150-450 [facility] Comment on above: Performed By: #### C BC #### [facility] [address] [address] [address] Esme Jackson RBC 4.29 106/ul Critically low 4.70-6.10 [facility] Comment on above: Performed By: #### C BC #### [facility] [address] [place] [address] Dr. Esme Jackson WBC 7.3 103/ul Normal 4.0-11.0 [facility] Comment on above: Performed By: #### C BC #### [facility] [address] [place] [address] Dr. Esme Jackson Covid-19 PCR (CVDTB)on 10-13 SARS-CoV-2 (COVID-19) RNA HANSA+probe Ql (Unsp spec) Not detected Normal NOT DETECTED [facility] Comment on above: Result Comment: When [...] for this test is supported by the Chairman Of The Board of Health and Human Service's declaration that [...] used). Performed By: #### C VDTBH #### [facility] [address] [place] [address] Dr. Esme Jackson INFLUENZA A AND B AGon 11-10 INFLUANEGH SEE BELOW Normal [facility] Comment on above: Result Comment: Nega tive for Flu A protein angiten. Infection due to Flu A cannot be ruled out. Flu A angiten in the sample may be below the detection limit of the test. Performed By: #### F T4 #### [facility] [address] [place] [address] Dr. Esme Jackson INFLUBNEGH SEE BELOW Normal [facility] Comment on above: Result Comment: Nega tive for Flu B protein antigen. Infection due to Flu B cannot be ruled out. Flu B antigen in the sample may be below the detection limit of the test. Performed By: #### F T4 #### [facility] [address] [place] [address] Dr. Esme Jackson INFLUENZA A AG Negative Normal NEGATIVE SEE COMMENT [facility] Comment on above: Performed By: #### F T4 #### [facility] [address] [place] [address] Dr. Esme Jackson INFLUENZA B AG Negative Normal NEGATIVE SEE COMMENT [facility] Comment on above: Performed By: #### F T4 #### [facility] [address] [place] [address] Dr. Esme Jackson PROF CHEM 8 (BAS METB)on Anion gap [Moles/Vol] 13.9 mmol/L Normal [facility] Comment on above: Performed By: #### B HOIST CYLINDER LOADER, BMP, HSTROPN #### [facility] [address] [place] [address] Dr. Esme Jackson Calcium [Mass/Vol] 8.7 mg/dL Normal 8.5-10.1 [facility] Comment on above: Performed By: #### B HOIST CYLINDER LOADER, BMP, HSTROPN #### [facility] [address] [place] [address] Dr. Esme Jackson Chloride [Moles/Vol] 104 mmol/L Normal 98-107 [facility] Comment on above: Performed By: #### B HOIST CYLINDER LOADER, BMP, HSTROPN #### [facility] [address] [address] [address] Esme Jackson CO2 [Moles/Vol] 25.2 mmol/L Normal 21.0-32.0 [facility] Comment on above: Performed By: #### B HOIST CYLINDER LOADER, BMP, HSTROPN #### [facility] [address] [address] [address] Esme Jackson Creatinine [Mass/Vol] 1.04 mg/dL Normal 0.70-1.30 [facility] Comment on above: Performed By: #### B HOIST CYLINDER LOADER, BMP, HSTROPN #### [facility] [address] [address] [address] Esme Jackson EGFR-AF CONGOLESE >60 Normal >=60 [facility] Comment on above: Performed By: #### B HOIST CYLINDER LOADER, BMP, HSTROPN #### [facility] [address] [place] [address] Dr. Esme Jackson EGFR-NON AF CONGOLESE >60 Normal >=60 [facility] Comment on above: Performed By: #### B HOIST CYLINDER LOADER, BMP, HSTROPN #### [facility] [address] [address] [address] Esme Jackson Glucose [Mass/Vol] 199 mg/dL Critically high 74-106 [facility] Comment on above: Performed By: #### B HOIST CYLINDER LOADER, BMP, HSTROPN #### [facility] [address] [address] [address] Esme Jackson Potassium [Moles/Vol] 4.1 mmol/L Normal 3.5-5.1 [facility] Comment on above: Performed By: #### B HOIST CYLINDER LOADER, BMP, HSTROPN #### [facility] [address] [address] [address] Esme Jackson Sodium [Moles/Vol] 139 mmol/L Normal 136-145 [facility] Comment on above: Performed By: #### B HOIST CYLINDER LOADER, BMP, HSTROPN #### [facility] [address] [address] [address] Esme Jackson Urea nitrogen [Mass/Vol] 18.0 mg/dL Normal 7.0-18.0 [facility] Comment on above: Performed By: #### B HOIST CYLINDER LOADER, BMP, HSTROPN #### [facility] [address] [address] [address] Esme Jackson Urea nitrogen/Creatinine [Mass ratio] 17.3 mg/mg Normal [facility] Comment on above: Performed By: #### B HOIST CYLINDER LOADER, BMP, HSTROPN #### [facility] [address] [address] [address] Esme Jackson TROPONIN, HIGH SENSITIVITYon 11-10-2022 HSTROP 35.5 pg/mL Normal 4.0-76.1 [facility] Comment on above: Result Comment: CUT- OFF POINTS HAVE BEEN ESTABLISHED BASED ON THE FOURTH UNIVERSAL DEFINITIONS OF MYOCARDIAL INFARCTION. THE UPPER REFERENCE LIMIT (URL) OF TROPONIN, DEFINED THE 99TH PERCENTILE OF cTnI DISTRIBUTION IN A REFERENCE POPULATION, HAS BEEN CONFIRMED THE DECISION THRESHOLD FOR MA DIAGNOSIS. Performed By: #### B HOIST CYLINDER LOADER, BMP, HSTROPN #### [facility] [address] [place] [address] Dr. Esme Jackson XR CHEST 1 Von [...] osseous structures are stable. Electronically authenticated by: SoCloz Date: 2022-11-10 09:24 Normal [facility] Covid-19 PCR (CVDTB)on SARS-CoV-2 (COVID-19) RNA HANSA+probe Ql (Unsp spec) Not detected Normal NOT DETECTED [facility] Comment on above: Result Comment: When [...] for this test is supported by the [place] of Health and Human Service's declaration that [...] used). Performed By: #### C VDTB #### [facility] [address] [place] [address] Dr. Esme Jackson INFLUENZA A AND B [facility] 10-15 [facility] SEE BELOW Normal [facility] Comment on above: Result Comment: Nega tive for Flu A protein angiten. Infection due to Flu A cannot be ruled out. Flu A angiten in the sample may be below the detection limit of the test. Performed By: #### F T4 #### [facility] [address] [place] [address] Dr. Es[facility] Normal [facility] Comment on above: Result Comment: Nega tive for Flu B protein antigen. Infection due to Flu B cannot be ruled out. Flu B antigen in the sample may be below the detection limit of the test. Performed By: #### F T4 #### [facility] [address] [place] [address] Dr. Esme Jackson INFLUENZA A AG Negative Normal NEGATIVE SEE COMMENT [facility] Comment on above: Performed By: #### F T4 #### [facility] [address] [place] [address] Dr. Esme Jackson INFLUENZA B AG Negative Normal NEGATIVE SEE COMMENT [facility] Comment on above: Performed By: #### F T4 #### [facility] [address] [place] [address] Dr. Esme Jackson INTERNAL CONTROLS Within Normal Limits Normal Wi thin Normal Limits [facility] Comment on above: Performed By: #### F T4 #### [facility] [address] [address] [address] Esme Jackson XR CHEST 2 Von [...] RAPHAEL NUNEZ Date: 2022-10-15 10:08 Normal [facility] Follow Up (Endocrinology)on 10-10-2022 Follow Up [...] insulin; CATIE = N; Verified Transmission to [id number]; Last Updated By: Veronique Pierre; 10/10/2022 11:29:03 [...] Services - Lab To Draw (Blood Test); Due:[id number];Ordered; For:Central hypothyroidism, Hyperlipemia, Hypogonadism male, Pituitary macroadenoma, Thyroid nodule, Type 2 diabetes mellitus with other specified complication, with long-term current use of insulin; Ordered By:Mandie Salamanca; Complete Blood Count + Differential; Status:Active; Requested for:10Oct2022; Perform:Lab Services - Lab To Draw (Blood Test); Due:[id number];Ordered; For:Central hypothyroidism, Hyperlipemia, Hypogonadism male, Pituitary macroadenoma, Thyroid nodule, Type 2 diabetes mellitus with other specified complication, with long-term current use of insulin; Ordered By:Mandie Salamanca; Comprehensive Metabolic Panel; Status:Active; Requested for:10Oct2022; Perform:Lab Services - Lab To Draw (Blood Test); Due:[id number];Ordered; For:Central hypothyroidism, Hyperlipemia, Hypogonadism male, Pituitary macroadenoma, [...] Type 2 (more content not included)... Normal [facility] CORTISOL Bri 06-25-2022 Cortisol AM 19.6 ug/dL Critically high 6.2-19.4 [facility] Comment on above: Performed By: #### C [facility] #### [facility] [address] [place] [address] Dr. Esme Jackson MICROALBUMIN URINEon 022 Albumin, Urine 36.5 ug/mL Normal Not Estab. [facility] Comment on above: Performed By: #### F T4 #### [facility] [address] [address] [address] Esme Jackson FREE T4on 06-22-2022 Free T4 [Mass/Vol] 1.22 ng/dL Normal 0.76-1.46 [facility] Comment on above: Performed By: #### F T4 #### [facility] [address] [address] [address] Esme Jackson GLYCOHEMOGLOBIN A1Con 2021 ADA RECOMMENDATION SEE BELOW Normal [facility] Comment on above: Result Comment: ADA RECOMMENDED LIMIT 4.0 - 6.0 ADA THERAPEUTIC TARGET < 7.0 ACTION SUGGESTED > 7.0 Performed By: #### F T4 #### [facility] [address] [place] [address] Dr. Esme Jackson Glucose [Mass/Vol] 194 mg/dL Normal [facility] Comment on above: Performed By: #### F T4 #### [facility] [address] [place] [address] Dr. Esme Jackson HbA1c (Bld) [Mass fraction] 8.4 % Critically high 4.5-6.2 [facility] Comment on above: Performed By: #### F T4 #### [facility] [address] [place] [address] Dr. Esme Jackson LIPID PROFILEon 06-22-2022 CHOL-HDL RATIO NORM SEE BELOW Normal [facility] Comment on above: Result Comment: 3.3 - 4.4 LOW RISK 4.4 - 7.1 AVERAGE RISK 7.1 - 11.0 MODERATE RISK >11.0 HIGH RISK Performed By: #### F T4 #### [facility] [address] [place] [address] Dr. Esme Jackson Cholesterol [Mass/Vol] 153 mg/dL Normal <=200 [facility] Comment on above: Performed By: #### F T4 #### [facility] [address] [place] [address] Dr. Esme Jackson Cholesterol in HDL [Mass/Vol] 55 mg/dL Normal 40-60 [facility] Comment on above: Performed By: #### F T4 #### [facility] [address] [address] [address] Esme Jackson Cholesterol in LDL [Mass/Vol] 82.2 mg/dL Normal [facility] Comment on above: Performed By: #### F T4 #### [facility] [address] [address] [address] Esme Jackson Cholesterol.total/Ch olesterol in HDL [Mass ratio] 2.8 {ratio} Normal [facility] Comment on above: Performed By: #### F T4 #### [facility] [address] [place] [address] Dr. Esme Jackson HDL NORMAL > or = 60 mg/dl - LO W CARDIOVASCULAR RISK <40 mg/dl - HIGH CARDIOVASCULAR RISK Normal [facility] Comment on above: Performed By: #### F T4 #### [facility] [address] [address] [address] Esme Jackson LDL CALC NORMAL SEE BELOW Normal [facility] Comment on above: Result Comment: <100 mg/dl OPTIMAL 100 - 129 mg/dl NEAR OR ABOVE OPTIMAL 130 - 159 mg/dl BORDERLINE HIGH 160 - 189 mg/dl HIGH >190 mg/dl VERY HIGH Performed By: #### F T4 #### [facility] [address] [place] [address] Dr. Esme Jackson Triglyceride [Mass/Vol] 79 mg/dL Normal <=150 [facility] Comment on above: Performed By: #### F T4 #### [facility] [address] [address] [address] Esme Jackson VLDL CALC 15.8 mg/dL Normal [facility] Comment on above: Performed By: #### F T4 #### [facility] [address] [place] [address] Dr. Esme Jackson PROF 14(COMP METB)on 022 Albumin [Mass/Vol] 3.9 g/dL Normal 3.4-5.0 [facility] Comment on above: Performed By: #### F T4 #### [facility] [address] [place] [address] Dr. Esme Jackson Albumin/Globulin [Mass ratio] 1.1 {ratio} Normal [facility] Comment on above: Performed By: #### F T4 #### [facility] [address] [place] [address] Dr. Esme Jackson ALP [Catalytic activity/Vol] 57 U/L Normal 46-116 [facility] Comment on above: Performed By: #### F T4 #### [facility] [address] [place] [address] Dr. Esme Jackson ALT [Catalytic activity/Vol] 22 U/L Normal 16-63 [facility] Comment on above: Performed By: #### F T4 #### [facility] [address] [place] [address] Dr. Esme Jackson Anion gap [Moles/Vol] 12.6 mmol/L Normal [facility] Comment on above: Performed By: #### F T4 #### [facility] [address] [place] [address] Dr. Esme Jackson AST [Catalytic activity/Vol] 18 U/L Normal 15-37 [facility] Comment on above: Performed By: #### F T4 #### [facility] [address] [place] [address] Dr. Esme Jackson Bilirubin [Mass/Vol] 1.1 mg/dL Critically high 0.2-1.0 [facility] Comment on above: Performed By: #### F T4 #### [facility] [address] [place] [address] Dr. Esme Jackson Calcium [Mass/Vol] 9.0 mg/dL Normal 8.5-10.1 [facility] Comment on above: Performed By: #### F T4 #### [facility] [address] [place] [address] Dr. Esme Jackson Chloride [Moles/Vol] 103 mmol/L Normal 98-107 [facility] Comment on above: Performed By: #### F T4 #### [facility] [address] [place] [address] Dr. Esme Jackson CO2 [Moles/Vol] 27.2 mmol/L Normal 21.0-32.0 [facility] Comment on above: Performed By: #### F T4 #### [facility] [address] [place] [address] Dr. Esme Jackson Creatinine [Mass/Vol] 0.90 mg/dL Normal 0.70-1.30 [facility] Comment on above: Performed By: #### F T4 #### [facility] [address] [address] [address] Esme Jackson EGFR-AF CONGOLESE >60 Normal >=60 [facility] Comment on above: Performed By: #### F T4 #### [facility] [address] [place] [address] Dr. Esme Jackson EGFR-NON AF CONGOLESE >60 Normal >=60 [facility] Comment on above: Performed By: #### F T4 #### [facility] [address] [place] [address] Dr. Esme Jackson Globulin (S) [Mass/Vol] 3.4 g/dL Normal [facility] Comment on above: Performed By: #### F T4 #### [facility] [address] [place] [address] Dr. Esme Jackson Glucose [Mass/Vol] 185 mg/dL Critically high 74-106 [facility] Comment on above: Performed By: #### F T4 #### [facility] [address] [place] [address] Dr. Esme Jackson Potassium [Moles/Vol] 3.8 mmol/L Normal 3.5-5.1 [facility] Comment on above: Performed By: #### F T4 #### [facility] [address] [place] [address] Dr. Esme Jackson Protein [Mass/Vol] 7.3 g/dL Normal 6.4-8.2 [facility] Comment on above: Performed By: #### F T4 #### [facility] [address] [place] [address] Dr. Esme Jackson Sodium [Moles/Vol] 139 mmol/L Normal 136-145 [facility] Comment on above: Performed By: #### F T4 #### [facility] [address] [place], [place] [address] Dr. Esme Jackson Urea nitrogen [Mass/Vol] 12.0 mg/dL Normal 7.0-18.0 [facility] Comment on above: Performed By: #### F T4 #### [facility] [address] [place], [place] [address] Dr. Esme Jackson Urea nitrogen/Creatinine [Mass ratio] 13.3 mg/mg Normal [facility] Comment on above: Performed By: #### F T4 #### [facility] [address] [place], [place] [address] Dr. Esme Jackson US THYROIDon 06-22-2022 US [...] nodules. 1 year follow-up recommended TI-RADS: The [employer] TI-RADS committee's white paper recommendations for thyroid lesions classified as TR5 (highly suspicious) are listed below: > 0.5 cm. Annual ultrasound follow-up for up to 5 years. > 1.0 cm. FNA. J. Am Dionicio Radiol 2017;14:[id number]. Electronically authenticated by: GEORGIE DAVIES Date: 2022-06-22 17:28 Normal [facility] Follow Up (Endocrinology)on 04-24-2022 Follow Up [...] For - Scheduling; Requested for:24Apr2022; Perform:[facility]; Due:23Jul2022;Ordered; For:Central [...] nodule; CATIE = N; [facility]; Last Updated By: Veronique Pierre; 04/24/2022 10:33:22 AM Hypogonadism male, Pituitary macroadenoma Renew: Testosterone 50 MG/5GM (1%) Transdermal Gel; APPLY 1 PACKET ONE TIME DAILY DIRECTED Rx By: Mandie Salamanca; Dispense: 0 Days ; #:90 X 5 GM Package; Refill: 1;For: Hypogonadism male, Pituitary macroadenoma; CATIE = N; [facility]; Last Updated By: [employer]; 04/24/2022 10:33:21 AM Pituitary macroadenoma Renew: Cabergoline 0.5 MG Oral Tablet; Take 1 tablet every other day Rx By: Mandie Salamanca; Dispense: 80 Days ; #:40 Tablet; Refill: 3;For: Pituitary macroadenoma; CATIE = N; [facility]; Last Updated By: [employer]; 04/24/2022 10:33:26 AM Type 2 diabetes mellitus with other specified complication, with long-term current use of insulin Renew: Accu-Chek Alicia Plus In Vitro Strip; TEST TWICE DAILY Rx B (more content not included)... Normal [employer] Tobacco Screening.on 022 Adult depression screening assessment No [facility] Work Phone: Fall risk assessment a) No falls within the last year [facility] [address] Work Phone: Tobacco use status CPHS b) No [facility] [address] Work Phone: Vital Signs Date Time Vital Sign Value Performing Clinician Facility 02-11-2025 13:12-0400 Body height 182.9 cm Ansley Chaves DO Work Phone: [facility] 02-11-2025 13:12-0400 Body mass index (BMI) [Ratio] 26.56 kg/m2 Ansley Chaves DO Work Phone: [facility] 02-11-2025 13:12-0400 Body weight 88.81 kg Ansley Chaves DO Work Phone: [facility] 12-29-2024 13:31-0500 Body height 182.9 cm Henrry Johnson MD Work Phone: [facility] 12-29-2024 13:31-0500 Body mass index (BMI) [Ratio] 26.72 kg/m2 Henrry Johnson MD Work Phone: [facility] 12-29-2024 13:31-0500 Body weight 89.36 kg Henrry Johnson MD Work Phone: [facility] 12-29-2024 13:31-0500 Diastolic blood pressure 59 mm[Hg] Henrry Johnson MD Work Phone: [facility] 12-29-2024 13:31-0500 Heart rate 77 /min Henrry Johnson MD Work Phone: [facility] 12-29-2024 13:31-0500 Systolic blood pressure 100 mm[Hg] Henrry Johnson MD Work Phone: [facility] 07-14-2024 11:22-0400 Body height 182.9 cm Henrry Johnson MD Work Phone: [facility] 07-14-2024 11:22-0400 Body mass index (BMI) [Ratio] 26.31 kg/m2 Henrry Johnson MD Work Phone: [facility] 07-14-2024 11:22-0400 Body weight 88 kg Henrry Johnson MD Work Phone: [facility] 07-14-2024 11:22-0400 Diastolic blood pressure 62 mm[Hg] Henrry Johnson MD Work Phone: [facility] 07-14-2024 11:22-0400 Systolic blood pressure 131 mm[Hg] Henrry Johnson MD Work Phone: [facility] 04-14-2024 12:35-0400 Diastolic blood pressure 63 mm[Hg] MD Joseluis Quiroz Work Phone: [facility] 04-14-2024 12:35-0400 Heart rate 54 /min MD Joseluis Quiroz Work Phone: [facility] 04-14-2024 12:35-0400 Respiratory rate 18 /min MD Joseluis Quiroz Work Phone: [facility] 04-14-2024 12:35-0400 SaO2% (BldA) [Mass fraction] 99 % MD Joseluis Quiroz Work Phone: [facility] 04-14-2024 12:35-0400 Systolic blood pressure 125 mm[Hg] MD Joseluis Quiroz Work Phone: [facility] 04-14-2024 11:02-0400 Body height 182.88 cm MD Joseluis Quiroz Work Phone: [facility] 04-14-2024 11:02-0400 Body weight 86.18 kg MD Joseluis Quiroz Work Phone: [facility] 03-18-2024 10:35-0400 Body height 182.88 cm MD Joseluis Quiroz Work Phone: [facility] 03-18-2024 10:35-0400 Body mass index (BMI) [Ratio] 25.7 kg/m2 MD Joseluis Quiroz Work Phone: [facility] 03-18-2024 10:35-0400 Body weight 86.18 kg MD Joseluis Quiroz Work Phone: [facility] 03-06-2024 10:52-0400 Body height 182.88 cm MD Joseluis Quiroz Work Phone: [facility] 03-06-2024 10:52-0400 Body mass index (BMI) [Ratio] 26.9 kg/m2 MD Joseluis Quiroz Work Phone: [facility] 03-06-2024 10:52-0400 Body temperature 99.2 [degF] MD Joseluis Quiroz Work Phone: [facility] 03-06-2024 10:52-0400 Body weight 89.98 kg MD Joseluis Quiroz Work Phone: [facility] 03-06-2024 10:52-0400 Diastolic blood pressure 60 mm[Hg] MD Joseluis Quiroz Work Phone: [facility] 03-06-2024 10:52-0400 Heart rate 69 /min MD Joseluis Quiroz Work Phone: [facility] 03-06-2024 10:52-0400 Respiratory rate 18 /min MD Joseluis Quiroz Work Phone: [facility] 03-06-2024 10:52-0400 SaO2% (BldA) [Mass fraction] 95 % MD Joseluis Quiroz Work Phone: [facility] 03-06-2024 10:52-0400 Systolic blood pressure 127 mm[Hg] MD Joseluis Quiroz Work Phone: [facility] 10-29-2023 13:30-0500 Body height 182.88 cm Joseluis Quiroz Other [facility] Other 10-29-2023 13:30-0500 Body mass index (BMI) [Ratio] 26.09 kg/m2 Joseluis Quiroz Other [facility] Other 10-29-2023 13:30-0500 Body weight 87.27 kg Joseluis Quiroz Other [employer] Other 10-29-2023 13:30-0500 Diastolic blood pressure 72 mm[Hg] Joseluis Quiroz Other [employer] Other 10-29-2023 13:30-0500 SaO2% (BldA) [Mass fraction] 93 % Joseluis Quiroz Other [employer] Other 10-29-2023 13:30-0500 Systolic blood pressure 130 mm[Hg] Joseluis Quiroz Other [employer] Other 08-19-2023 11:00-0400 Body height 182.88 cm Joseluis Quiroz Other [employer] Other 08-19-2023 11:00-0400 Body mass index (BMI) [Ratio] 25.36 kg/m2 Joseluis Quiroz Other [employer] Other 08-19-2023 11:00-0400 Body weight 84.82 kg Joseluis Quiroz Other [employer] Other 08-19-2023 11:00-0400 Diastolic blood pressure 61 mm[Hg] Joseluis Quiroz Other [employer] Other 08-19-2023 11:00-0400 Systolic blood pressure 126 mm[Hg] Joseluis Quiroz Other [employer] Other Encounters Encounter Date Encounter Type Care Provider Facility Start: 02-11-2025 End: 02-11-2025 Bamboo flowsheet Ansley Chaves DO Work Phone: [facility] Start: 02-11-2025 End: 02-11-2025 Bamboo flowsheet Ansley Chaves DO Work Phone: [facility] Start: 02-11-2025 End: 02-11-2025 Patient encounter procedure Ansley Chaves DO Work Phone: [facility] Comment on above: Primary osteoarthrit is of right hip (Primary Dx) Start: 02-11-2025 End: 02-11-2025 ambulatory ANSLEY CHAVES Not Available Start: 02-01-2025 End: 02-01-2025 ambulatory ISAURA GARBER Not Available Start: 12-29-2024 End: 12-29-2024 Bamboo flowsroxanna Johnson MD Work Phone: [facility] Start: 12-29-2024 End: 12-29-2024 Brittany Johnson MD Work Phone: [facility] Start: 12-29-2024 End: 12-29-2024 ambulatory HENRRY JOHNSON Not Available Start: 12-29-2024 End: 12-29-2024 Office outpatient visit 15 minutes Henrry Johnson MD Work Phone: [facility] Comment on above: Thyroid nodule (CMS/ HCC) (Primary Dx) Start: 12-23-2024 End: 12-23-2024 Clinisync Result Encounter Henrry Johnson MD Work Phone: [facility] Unsolicited Start: 12-23-2024 End: 12-23-2024 Clinisync Result Encounter Henrry Johnson MD Work Phone: [facility] Unsolicited Start: 09-16-2024 End: 09-16-2024 ambulatory [facility] Start: 07-14-2024 End: 07-14-2024 Bamboo flowsheet Henrry [...] Medicine Comment on above: Insurance Authorizat ion ([place]) Start: 05-07-2024 End: 05-07-2024 Office outpatient visit 40 minutes Mandie Salamanca MD Work Phone: [facility] Comment on above: Hypopituitarism (Mul ti) (Primary Dx); Hypogonadism male; Hyperparathyroidism (Multi); Hyperprolactinemia (Multi); Type 2 diabetes mellitus without complication, with long-term current use of insulin (Multi); Thyroid nodule Start: 04-14-2024 Non-patient / Non-visit MD Hiral Quiroz Work Phone: [facility] Work Phone: Start: 04-14-2024 End: 04-14-2024 Admission to same day surgery center MD Joseluis Quiroz Work Phone: [facility] Work Phone: Start: 04-14-2024 End: 04-14-2024 ambulatory MD Joseluis Quiroz Work Phone: [facility] Work Phone: Start: 04-01-2024 End: 04-01-2024 ambulatory [facility] Start: 03-23-2024 End: 03-23-2024 ambulatory RAPHAEL SPRINGER Not Available Start: 03-18-2024 End: 03-18-2024 Patient encounter procedure MD Joseluis Quiroz Work Phone: [facility] Work Phone: Start: 03-06-2024 End: 03-06-2024 Patient encounter procedure MD Joseluis Quiroz Work Phone: [facility] [place] Work Phone: Start: 12-23-2023 End: 12-23-2023 ambulatory Joseluis Quiroz Other [employer] Other Start: 12-23-2023 Telephone encounter Joseluis Quiroz [facility] Start: 10-29-2023 End: 10-29-2023 ambulatory Joseluis Quiroz Other [employer] Other Start: 10-29-2023 Office outpatient vi sit 15 minutes Joseluis Quiroz [facility] Start: 10-16-2023 End: 10-16-2023 ambulatory Joseluis Quiroz Other [employer] Other Start: 10-16-2023 Telephone encounter Joseluis Quiroz [facility] Start: 09-13-2023 End: 09-13-2023 ambulatory Joseluis Quiroz Other [employer] Other Start: 09-13-2023 Telephone encounter Joseluis Ellie [facility] Start: 09-10-2023 End: 09-10-2023 ambulatory Joseluis Quiroz Other [employer] Other Start: 09-10-2023 Telephone encounter Joseluis Ellie [facility] Start: 08-19-2023 End: 08-19-2023 ambulatory Joseluis Quiroz Other [employer] Other Start: 08-19-2023 Office outpatient vi sit 15 minutes Joseluis Quiroz [facility] Start: 07-31-2023 End: 07-31-2023 ambulatory Joseluis Ellie Other [employer] Other Start: 07-31-2023 Telephone encounter Joseluis Ellie [facility] Start: 05-29-2023 Rx Renewal Cabrera Dupont Work Phone: [facility] [address] Work Phone: Start: 04-08-2023 Rx Renewal Cabrera Dupont Work Phone: [facility] [address] [place] Work Phone: Start: 02-28-2023 End: 03-01-2023 ambulatory TONA ESPINOZA Facility:H1 Start: 01-30-[address] JOSELUIS QUIROZ Facil ity:H1 Start: 01-22-2023 AUDIT Cabrera Dupont Work Phone: [facility] Work Phone: Start: 01-22-2023 Rx Renewal [...] sit 25 minutes Cabrera Dupont Work Phone: TV-Xaepmrbqkohoq-CUR [address] Work Phone: Start: 10-10-2022 ambulatory Referral Self Facility: [id number] Start: 09-28-2022 AUDIT Cabrera Dupont Work Phone: [facility] Work Phone: Start: 07-13-2022 Rx Renewal Cabrera Dupont Work Phone: [facility] [address] [place] Work Phone: Start: 07-02-2022 Telephone encounter Mandie sun MD Work Phone: Endocrinology Comment on above: Received Outside Med ical Records (Received Thyroid US report from [facility]. Indexed into chart. ) Start: 06-22-2022 End: 06-23-[address] DOCTOR BUSBY Facility:H1 Start: 04-24-2022 Office outpatient vi sit 40 minutes Cabrera Dupont Work Phone: [facility]ak[facility] [address] Work Phone: Start: 04-24-[address] Cabrera Dupont Facility:[id number] Start: 03-27-2022 AUDIT Cabrera Dupont Work Phone: PA[facility]Ywapflwihlysv[facility] Work Phone: Start: 01-23-2022 AUDIT Cabrera Dupont Work Phone: [facility] Work Phone: Start: 12-11-2021 Rx Renewal Cabrera Dupont Work Phone: FY-[facility]yixsppabvtit[facility] Work Phone: Start: 11-08-2021 AUDIT Cabrera Dupont Work Phone: HP-Kwtgpnmiecjdf-[facility] Work Phone: Start: 08-21-2021 AUDIT Cabrera Dupont Work Phone: CY-Kasqliyuzuykl-UKA [address] Work Phone: Start: 05-31-2021 AUDIT Cabrera Dupont Work Phone: OG-Ogqelzfstuzua-LSH [address] Work Phone: Start: 06-20-2017 End: 06-21-2017 Ambulatory DEFAULT PHYSICIAN Facility:[facility] Procedures Date Procedure Procedure Detail Performing Clinician Start: 12-23-2024 Us soft tissue head & neck real time imge docm Henrry Johnson MD Work Phone: Start: 04-14-2024 End: 04-14-2024 Colonoscopy MD Joseluis Quiroz Work Phone: Start: 08-24-2016 Lipid 1996 panel - S jaz or Plasma Rickey Salamanca MD Work Phone: Appendectomy [facility] [address] Work Phone: Arthroscopy of knee [facility] [address] Work Phone: Parathyroidectomy [facility]rera E R oss Work Phone: Vasectomy [address] Work Phone: Plan of Treatment Date Care Activity Detail Author Start: 04-14-2034 Screening for malignant neoplasm of colon [facility] Start: 07-06-2025 End: 07-06-2025 Patient encounter procedure 07/06/2025 1:30 PM EDT Office Visit [facility] [address] [place] [id number] Henrry Johnson MD [address] [place] [address] [facility] Start: 02-11-2025 End: 02-11-2025 Patient encounter procedure 02/11/2025 1:15 PM EDT Office Visit [facility] [address] [place] [address] Ansley Chaves DO [address] [place] [address] Primary osteoarthritis of right hip (Primary Dx) [facility] Comment on above: Primary osteoarthritis of right hip (Jocelynn mary ann Dx) Start: 12-29-2024 End: 12-29-2024 Patient encounter procedure 12/29/2024 1:30 PM EST Office Visit [facility] [address] [place] [address] Henrry Johnson MD [address] [place] [address] [facility] Start: 07-14-2024 End: 07-14-2024 Patient encounter procedure 07/14/2024 11:30 AM EDT Office Visit [facility] [address] [place] [address] Henrry Johnson MD [address] [place] [address] Arrived [facility] Comment on above: Arrived Start: 07-12-2024 Influenza vaccination [facility] Start: 05-07-2024 End: 05-07-2025 Comprehensive metabolic 2000 panel - Serum or Plasma Comprehensive Metabolic Panel Lab Routine Hypopituitarism (Multi) Hypogonadism male Hyperparathyroidism (Multi) Hyperprolactinemia (Multi) Type 2 diabetes mellitus without complication, with long-term current use of insulin (Multi) Expected: 05/07/2024 (Approximate), Expires: 05/07/2025 [facility] Work Phone: Comment on above: Expected: 05/07/2024 (Approximate), Expi res: 05/07/2025 Start: 05-07-2024 End: 05-07-2025 Cortisol [Mass/volume] in Serum or Plasma Cortisol Lab Routine Hypopituitarism (Multi) Hypogonadism male Hyperparathyroidism (Multi) Hyperprolactinemia (Multi) Type 2 diabetes mellitus without complication, with long-term current use of insulin (Multi) Expected: 05/07/2024 (Approximate), Expires: 05/07/2025 [facility] Service Area Work Phone: Comment on above: Expected: 05/07/2024 (Approximate), Expi res: 05/07/2025 Start: 05-07-2024 End: 05-07-2025 Hemoglobin A1c/Hemoglobin.total in Blood Hemoglobin A1C Lab Routine Hypopituitarism (Multi) Hypogonadism male Hyperparathyroidism (Multi) Hyperprolactinemia (Multi) Type 2 diabetes mellitus without complication, with long-term current use of insulin (Multi) Expected: 05/07/2024 (Approximate), Expires: 05/07/2025 [facility] Work Phone: Comment on above: Expected: 05/07/2024 (Approximate), Expi res: 05/07/2025 Start: 05-07-2024 End: 05-07-2025 Lipid 1996 panel - Serum or Plasma Lipid Panel Lab Routine Hypopituitarism (Multi) Hypogonadism male Hyperparathyroidism (Multi) Hyperprolactinemia (Multi) Type 2 diabetes mellitus without complication, with long-term current use of insulin (Multi) Expected: 05/07/2024 (Approximate), Expires: 05/07/2025 [facility] Work Phone: Comment on above: Expected: 05/07/2024 (Approximate), Expi res: 05/07/2025 Start: 05-07-2024 End: 05-07-2025 Microalbumin/Creatinine [Mass Ratio] in Urine Albumin-Creatinine Ratio, Urine Random Lab Routine Hypopituitarism (Multi) Hypogonadism male Hyperparathyroidism (Multi) Hyperprolactinemia (Multi) Type 2 diabetes mellitus without complication, with long-term current use of insulin (Multi) Expected: 05/07/2024 (Approximate), Expires: 05/07/2025 [facility] Work Phone: Comment on above: Expected: 05/07/2024 (Approximate), Expi res: 05/07/2025 Start: 05-07-2024 End: 05-07-2025 MR Pituitary and Sella turcica WO and W contrast IV MR sella w and wo IV contrast Imaging Routine Hypopituitarism (Multi) Hypogonadism male Hyperparathyroidism (Multi) Hyperprolactinemia (Multi) Type 2 diabetes mellitus without complication, with long-term current use of insulin (Multi) Thyroid nodule Expected: 05/07/2024, Expires: 05/07/2025 [facility] Work Phone: Comment on above: Expected: 05/07/2024, Expires: Start: 05-07-2024 End: 05-07-2025 Parathyrin.intact [Mass/volume] in Serum or Plasma Parathyroid Hormone, Intact Lab Routine Hypopituitarism (Multi) Hypogonadism male Hyperparathyroidism (Multi) Hyperprolactinemia (Multi) Type 2 diabetes mellitus without complication, with long-term current use of insulin (Multi) Thyroid nodule Expected: 05/07/2024 (Approximate), Expires: 05/07/2025 [facility] Work Phone: Comment on above: Expected: 05/07/2024 (Approximate), Expi res: 05/07/2025 Start: 05-07-2024 End: 05-07-2025 Prolactin [Mass/volume] in Serum or Plasma Prolactin Lab Routine Hypopituitarism (Multi) Hypogonadism male Hyperparathyroidism (Multi) Hyperprolactinemia (Multi) Type 2 diabetes mellitus without complication, with long-term current use of insulin (Multi) Expected: 05/07/2024 (Approximate), Expires: 05/07/2025 [facility] Work Phone: Comment on above: Expected: 05/07/2024 (Approximate), Expi res: 05/07/2025 Start: 05-07-2024 End: 05-07-2025 Testosterone,Free and Total Testosterone,Free and Total Lab Routine Hypopituitarism (Multi) Hypogonadism male Hyperparathyroidism (Multi) Hyperprolactinemia (Multi) Type 2 diabetes mellitus without complication, with long-term current use of insulin (Multi) Expected: 05/07/2024 (Approximate), Expires: 05/07/2025 [facility] Work Phone: Comment on above: Expected: 05/07/2024 (Approximate), Expi res: 05/07/2025 Start: 05-07-2024 End: 05-07-2025 Thyroxine (T4) free [Mass/volume] in Serum or Plasma Thyroxine, Free Lab Routine Hypopituitarism (Multi) Hypogonadism male Hyperparathyroidism (Multi) Hyperprolactinemia (Multi) Type 2 diabetes mellitus without complication, with long-term current use of insulin (Multi) Expected: 05/07/2024 (Approximate), Expires: 05/07/2025 [facility] Work Phone: Comment on above: Expected: 05/07/2024 (Approximate), Expi res: 05/07/2025 Start: 04-14-2024 [facility] Start: 11-11-2023 Advance Directive Discussion Advance Directive Discussion [facility] Start: 07-12-2023 Covid-19 Vaccine ( season) Covid-19 Vaccine ( season) [facility] Start: 10-10-2022 AMY, Provider: Mandie Salamanca, Status: Pen, Time: 11:15 AM AMY, Provider: Mandie Salamanca, Status: Pen, Time: 11:15 AM ZY-Lgxubdimkywrf-M [facility] Work Phone: Start: 07-12-2022 Influenza vaccination INFLUENZA (#1) [facility] Start: 04-24-2022 AMY, Provider: Ynes Sahni, Status: Pen, Time: 1:00 PM AMY, Provider: Ynes Sahni, Status: Pen, Time: 1:00 PM VQ-Pwzuybcrpsxzy-W [facility] Work Phone: Start: 01-21-2022 Diabetes Screening Diabetes Screening [facility] Start: 11-11-2021 ADVANCE DIRECTIVE DISCUSSION ADVANCE DIRECTIVE DISCUSSION [facility] Start: 08-24-2021 Lipid panel Lipid Screening [facility] Start: 07-24-2019 Hemoglobin A1c/Hemoglobin.total in Blood HBA1C [facility] Start: 08-12-2018 Pneumococcal Vaccine: 65+ (2 of 2 - PCV) Pneumococcal Vaccine: 65+ (2 of 2 - PCV) [facility] Start: 08-12-2018 Pneumococcal Vaccine: 65+ Years (2 of 2 - PCV) Pneumococcal Vaccine: 65+ Years (2 of 2 - PCV) [facility] Start: 10-07-2017 Shingrix Vaccine (3 of 3) Shingrix Vaccine (3 of 3) [facility] Start: 08-24-2017 Hepatitis B screening URINE ALBUMIN:CREATININE RATIO [facility] Start: 08-24-2017 Hepatitis B surface antibody level LDL CHOLESTEROL [facility] Start: 08-14-2017 3 comp foot exam completed DIABETIC FOOT EXAM [facility] Start: 11-22-2016 Hepatitis C antibody, confirmatory test DILATED RETINAL EXAM [facility] Start: 2016 PNEUMOCOCCAL: 65+ (1 - PCV) PNEUMOCOCCAL: 65+ (1 - PCV) [facility] Start: 2011 RSV patients and/or patients aged 60+ years (1 - 1-dose 60+ series) RSV patients and/or patients aged 60+ years (1 - 1-dose 60+ series) [facility] Start: 2011 RSV Vaccine (1 - 1-dose 60+ series) RSV Vaccine (1 - 1-dose 60+ series) [facility] Start: 2001 SHINGRIX VACCINE (1 of 2) SHINGRIX VACCINE (1 of 2) [facility] Start: 2001 Zoster Vaccines (1 of 2) Zoster Vaccines (1 of 2) [facility] Start: 1996 COLOGUARD (FIT-DNA) COLOGUARD (FIT-DNA) [facility] Start: 1996 Colonoscopy COLONOSCOPY [facility] Start: 1996 COLORECTAL CANCER SCREENING COLORECTAL CANCER SCREENING [facility] Start: [address] COLONOGRAPHY [facility] Start: 1996 FECAL OCCULT BLOOD FECAL OCCULT BLOOD [facility] Start: 1996 Screening for malignant neoplasm of colon [facility] Start: 1996 SIGMOIDOSCOPY SIGMOIDOSCOPY [facility] Start: 1973 DTaP/Tdap/Td Vaccines (1 - Tdap) DTaP/Tdap/Td Vaccines (1 - Tdap) [facility] Start: 1970 Urine microalbumin profile [facility] Start: 1970 Urine screening for protein Diabetes: Urine Protein Screening [facility] Start: 1969 Anxiety Screening Anxiety Screening [facility] Start: 1969 Depression Screening Depression Screening [facility] Start: 1969 HEPATITIS C SCREENING HEPATITIS C SCREENING [facility] Start: 1969 Hepatitis C screening Hepatitis C Screening [facility] Start: 1963 Adult depression screening assessment DEPRESSION SCREENING [facility] Start: 1961 Diabetic foot examination Diabetes: Foot Exam [facility] Start: 1961 Glaucoma screening Diabetes: Retinopathy Screening [facility] Start: 1957 Pneumococcal Vaccine: 65+ Years (1 of 2 - PCV) Pneumococcal Vaccine: 65+ Years (1 of 2 - PCV) [facility] Start: 02-08-1952 COVID-19 VACCINE (#1) COVID-19 VACCINE (#1) [facility] Start: 1951 ABDOMINAL AORTIC ANEURYSM SCREENING ABDOMINAL AORTIC ANEURYSM SCREENING [facility] Start: 1951 Abdominal aortic aneurysm screening Abdominal Aortic Aneurysm Screening [facility] Start: 1951 Hemoglobin A1c measurement Diabetes: Hemoglobin A1C [facility] Start: 1951 Lipid panel Lipid Panel [facility] Start: 1951 Medicare Annual Wellness Visit Medicare Annual Wellness Visit (AWV) [facility] Start: 1951 Screening for malignant neoplasm of colon [facility] Start: 1951 Thyroid stimulating hormone measurement TSH Level [facility] Patient Education Colon polyps D iverticulosis (DC) [facility] Work Phone: US Thyroid gland US thyroid Imag ing Routine Hypopituitarism (Multi) Hypogonadism male Hyperparathyroidism (Multi) Hyperprolactinemia (Multi) Type 2 diabetes mellitus without complication, with long-term current use of insulin (Multi) Thyroid nodule Ordered: 05/07/2024 [facility] Work Phone: Comment on above: Ordered: 05/07/2024 XR Abdomen Single view [facility] Immunizations Immunization Date Immunization Notes Care Provider Kennedy chawla 08-21-2024 influenza virus vacc ine, unspecified formulation Henrry Johnson MD Work Phone: [facility] 10-12-2023 influenza virus vacc ine, unspecified formulation Henrry Johnson MD Work Phone: [facility] 08-15-2022 Fluzone High-Dose Quadrivalent 0.7 ML Intramuscular Suspension Prefilled Syringe Cabrera Dupont Work Phone: CT-Gfwgcprbrgshx-VL [facility] [address] Work Phone: 09-06-2021 Fluad Quadrivalent 0 .5 ML Intramuscular Prefilled Syringe Cabrera Dupont Work Phone: ZS-Uqlsflsuzamoq-BY [facility] [address] Work Phone: 01-18-2021 Neva COVID-19 Vac cine 0.5 ML Intramuscular Suspension Cabrera Dupont Work Phone: MG-Zrcsvhxwoauly-AT [facility] [address] Work Phone: 09-08-2020 Fluad Quadrivalent 0 .5 ML Intramuscular Prefilled Syringe Cabrera Dupont Work Phone: VB-Enubfjiqurvqi-XB [facility] [address] Work Phone: 08-24-2020 influenza, seasonal, injectable Cabrera Dupont Work Phone: JH-Blusausxzxmus-IX [facility] [address] Work Phone: 08-24-2019 Seasonal trivalent influenza vaccine, adjuvanted, preservative free Cabrera Dupont Work Phone: IW-Rgdswuoahraoi-TH [facility] [address] Work Phone: 08-04-2018 influenza, injectabl e, quadrivalent, preservative free Cabrera Dupont Work Phone: IO-Picolbcbdlsoo-CP [facility] [address] Work Phone: 08-04-2018 influenza virus vacc ine, unspecified formulation Rickey Salamanca MD Work Phone: [facility] 07-19-2018 influenza, high dose seasonal, preservative-free Cabrera Dupont Work Phone: WY-Ikfdieszjswzr-IK [facility] [address] Work Phone: 08-21-2017 influenza, high dose seasonal, preservative-free Cabrera Austin Cresencio Work Phone: SH-Lgjyvetxyrjyp-FH [facility] [address] Work Phone: 08-12-2017 pneumococcal polysaccharide vaccine, 23 valent Cabrera Dupont Work Phone: NZ-Qgbsdysouikgs-WU [facility] [address] Work Phone: 08-12-2017 zoster vaccine recombinant Cabreradionne Dupont Work Phone: YE-Izlztnqksqcrr-XU [facility] [address] Work Phone: 08-21-2016 influenza, high dose seasonal, preservative-free Cabrera Geovanna Cresencio Work Phone: RT-Esavxunolqyfv-AA [facility] [address] Work Phone: 2015 influenza, seasonal, injectable, preservative free Cabrera Geovanna Cresencio Work Phone: RB-Koljpdjeydtzz-EZ [facility] [address] Work Phone: 08-04-2014 influenza, seasonal, injectable Cabrera Dupont Work Phone: ES-Plefrhbuuketg-WG [facility] [address] Work Phone: 08-04-2014 pneumococcal polysaccharide vaccine, 23 valent Cabrera Dupont Work Phone: MX-Dbwcmrxjovrcl-EA [facility] [address] Work Phone: 08-04-2014 zoster vaccine, live Cabrera Dupont Work Phone: SB-Boikdbamljdxj-PM [facility] [address] Work Phone: Payers Date Payer Category Payer Self-pay [id number] 2023 Medicare (Managed Care) [employer] Member Subscriber Plan / Payer (Effective 2023-Present) Name: Gadiel Smith Relation to Subscriber: Self Name: Gadiel Smith Payer ID: Not on file Group ID: [id number] Type: Not on file Address: [facility] [id number] [place] [id number] 2018 Medicare [id number] 2013 Unknown 1959 Self-pay [id number] 1959 Unknown [id number] 1951 Unknown [id number] 2.16.840.1.661524.3.579. 2.356 1951 Unknown [id number] 2.16.840.1.193233.3.579. 2.356 1951 Unknown [id number] 2.16.840.1.238472.3.579. 2.593 1951 Unknown [id number] 2.16.840.1.576609.3.579. 2.593 1951 Unknown [id number] 2.16.840.1.381022.3.579. 2.593 1951 Unknown [id number] 2.16.840.1.225727.3.579. 2.593 1951 Unknown [id number] 2.16.840.1.713757.3.579. 2.593 1951 Unknown [id number] 2.16.840.1.209575.3.579. 2.593 1951 Unknown [id number] 2.16.840.1.211255.3.579. 2.593 1951 Unknown [id number] 2.16.840.1.015103.3.579. 2.1259 1951 Unknown [id number] 2.16.840.1.916481.3.579. 2.1259 1951 Unknown [id number] 2.16.840.1.664669.3.579. 2.1259 1951 Unknown [id number] 2.16.840.1.745620.3.579. 2.9 1951 Unknown [id number] 2.16.840.1.075364.3.579. 2.1259 1951 Unknown [id number] 2.16.840.1.281922.3.579. 2.1259 Unknown [id number] 2.16.840.1.229387.3.579. 2.593 Unknown [facility] [id number] Unknown [id number] 2.16.840.1.179279.3.579. 2.531 Social History Date Type Detail Facility Start: 01-21-2019 End: 02-11-2025 Former smoker Former smoker [facility] [employer] Work Phone: Start: 06-30-2013 End: 07-09-2024 Tobacco smoking status NHIS Ex-smoker [facility] Start: 11-11-1966 End: 12-12-1992 History of tobacco use Current smoker [facility] Start: 11-11-1966 End: 12-12-1992 History of tobacco use Cigarette Smoker [facility] Start: 06-30-2013 End: 07-09-2024 Tobacco use and exposure Smokeless tobacco non-user [facility] Start: 01-21-2019 Alcohol intake 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 alcohol (finding) [facility] Start: 1950 Sex Assigned At Not on file [facility] Start: 01-21-2019 End: 02-11-2025 Sex Assigned At [facility] [employer] Other Start: 1950 Sex Assigned At Male F [facility] National Score (1-100), lower number is lower risk Not on file [facility] Tobacco smoking status NHIS Tobacco smoking consumption unknown [facility] Work Phone: Start: 07-14-2024 End: 02-11-2025 Alcoholic beverage intake Lifetime non-drinker (finding) [facility] Procedure Code Equipment Code Equipment Original Text Equipment Identifier Dates [id number], [id number], [id number] Start: 09-15-2018 Comment on above: Use as instructed USE WITH INSULIN PEN S three times a day Pen Needle, Diabetic (Bd Ultra-Fine Mini Pen Needle) 31 gauge x 3/16 needle Start: 01-07-2024 Goals Date Patient Goal Desired Activity /State Clinical Notes 04-24-2022 to 02-11-2025 Angela Cortez - 02/11/2025 1:15 PM Salome Johnson MD - 12/29/2024 1:30 PM Miguel Johnson MD - 07/14/2024 11:30 AM EDTTelephone Encounter - Greg River - 06/18/2024 4:18 PM EDT Note Date & Type Note Facility 02-11-2025 History of Present illness Narrative Images from the original note were not included. Gadiel Smith is a 74 y.o. male presents with chief complaint of right hip and thigh, right lower quadrant pain. HPI: Alexis is here referral from Isaura Garber, nurse practitioner, for pain over the last several weeks to the right lower quadrant. He has had a history of an undescended testicle on that side that they have tried to bring down. He has no testicular pain now, no inguinal hernia signs, but his pain is in his right lower quadrant. It has been going on for two to three months. He states he had a colonoscopy in the past. He has not seen a general surgeon. There were some concern that his pain was coming from his hip. He has no groin pain or radicular pattern. He is actually feeling somewhat better. On the way over, he states he had no pain. No significant night disruption. Spouse is present. SUBJECTIVE: MEDICATIONS: Current Outpatient Medications Medication Instructions albuterol HFA 90 mcg/act inhaler 2 puffs, Every 4 hours PRN buPROPion SR (Wellbutrin SR) 150 MG 12 hr tablet Every 12 hours cabergoline (DOSTINEX) 0.5 mg, Every other day carvedilol (Coreg) 6.25 MG tablet TAKE 1 TABLET (6.25 MG) BY MOUTH IN THE MORNING AND AT BEDTIME. Eliquis 5 mg, 2 times daily escitalopram (LEXAPRO) 10 mg, Daily esomeprazole (NexIUM) [address] capsule 2 capsules, Every 24 hours Farxiga 10 mg, Every morning insulin glargine (Lantus) 100 UNIT/ML injection as directed Subcutaneous 30 units in AM 15 units in PM levothyroxine (Synthroid, Levoxyl) 75 MCG tablet Daily before breakfast lisinopril 5 MG tablet TAKE 1 TABLET BY MOUTH EVERYDAY metFORMIN (GLUCOPHAGE) 500 mg, Daily with breakfast rosuvastatin (CRESTOR) 40 mg, Daily spironolactone (Aldactone) 25 MG tablet Daily testosterone (AndroGel) 50 MG/5GM (1%) gel Every 24 hours ALLERGIES: No Known Allergies SURGICAL HISTORY: Past Surgical History: Procedure Laterality Date CARDIAC ELECTROPHYSIOLOGY MAPPING AND ABLATION CARPAL TUNNEL RELEASE Right 2014 CT ANGIOGRAM HEART CORONARY 04/26/2023 CT ANGIOGRAM TAVR 04/26/2023 PARATHYROIDECTOMY 12/2019 SHOULDER SURGERY Right 2009 and 2013 tendon repair THYROID 2009 VASECTOMY FAMILY HISTORY: Family History Problem Relation Name Age of Onset Diabetes type II Mother SOCIAL HISTORY: Social History Tobacco Use Smoking status: Former Current packs/day: 0.00 Average packs/day: 1 pack/day for 24.0 years (24.0 ttl pk-yrs) Types: Cigarettes Start date: 1966 Quit date: 1990 Years since quittin.2 Smokeless tobacco: Never Substance Use Topics Alcohol use: Never Drug use: Never Depression: Not on file REVIEW OF SYMPTOMS: The review of systems, history and current medications list are all reviewed today. OBJECTIVE: Visit Vitals Ht 6' Wt 195 lb 12.8 oz BMI 26.56 kg/m Smoking Status Former BSA 2.12 m Physical Exam On physical exam, the bilateral hips have mild stiffness. There is no intracapsular irritability whatsoever. There is no palpatory pain. He points to his right lower quadrant just above his iliac brim. He has no rebound or signs of tenderness in that area. I do not appreciate a hernia. Scrotal testicular exam is not performed and will be deferred to his primary care physician. There is no intracapsular irritability. Log roll and heel strike is negative. Bench and straight leg raise testing is negative. The patient is neurovascularly intact distally without sign of deficit. X-rays and imaging permanently saved to the patient's record were reviewed taken recently performed by Isaura Garber, nurse practitioner, through the web viewer shows mild to medium degenerative changes. He does have a short neck shaft angle which produces a prominent greater trochanter that is symmetrical on both sides. There is no sign of avascular necrosis. ASSESSMENT AND PLAN: Assessment/Plan Right lower quadrant pain, unknown origin, bilateral hip osteoarthritis, mild to medium. The nature of the findings were discussed at length. It does not appear that his hip is the cause of his pain. He has a negative log roll and heel strike, negative exam. No pain or guarding. He has issues with his right lower quadrant and he has been dealing with some constipation and bowel issues for quite some time. I instructed him on following up with primary care, his endoscopist specialist or a general surgeon. Names were provided for him to check. At this point, I do not see the need for orthopedic surgery. He voices verbal understanding. He is discharged in stable condition. Numerous questions were answered. Follow up here p.r.n.. The patient was seen and examined. From the time of check in, nurse triage, vital signs, x-ray, x-ray interpretation, review of systems, comprehensive history and physical exam as well as setting up treatment plan and further management took 35 minutes. Cosigned by Ansley Chaves DO at 02/16/2025 12:10 PM EDT documented in this encounter [facility] 12-29-2024 History of Present illness Narrative Subjective Patient ID: Alexis Smith is a 74 y.o. male who presents for Thyroid Nodule (5 month ultrasound [facility] 12/23/24) Thyroid US shows a 4mm RT and 9mm LT nodule, compared to an 8mm RT nodule 6 mo ago. Family History Problem Relation Name Age of Onset Diabetes type II Mother Active Ambulatory Problems Diagnosis Date Noted Alzheimer's disease with late onset ([facility]) 06/27/2024 Dementia in other diseases classified elsewhere, unspecified severity, without behavioral disturbance, psychotic disturbance, mood disturbance, and anxiety ([facility]) 06/27/2024 History of ischemic stroke 06/27/2024 Personality change 06/27/2024 Pituitary mass ([facility]) 06/27/2024 Depression ([facility]) 06/27/2024 Memory impairment 06/27/2024 Abnormal stress test 04/28/2015 Acquired hypothyroidism ([facility]) 07/09/2024 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[facility]) 02/23/2015 Atrial flutter ([facility]) 11/28/2022 Carotid stenosis, bilateral 04/01/2024 Chronic systolic heart failure ([facility]) 11/15/2022 Constipation 07/09/2024 CVA (cerebral vascular accident) ([facility]) 10/26/2022 Diverticulosis of colon 07/09/2024 History of transient ischemic attack (TIA) 10/26/2022 Hypercalcemia 12/23/2012 Hyperlipidemia ([facility]) 07/09/2024 Hypertension ([facility]) 07/09/2024 Hypogonadism male 12/23/2012 Incontinence of feces with fecal urgency 07/09/2024 Paroxysmal atrial fibrillation ([facility]) 10/18/2022 Persistent atrial fibrillation (HCC) ([facility]) 10/16/2022 PFO (patent foramen ovale) 11/28/2022 Primary hyperparathyroidism ([facility]) 12/24/2019 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[facility]) 11/16/2009 Pure hypercholesterolemia ([facility]) 07/09/2024 Thyroid nodule ([facility]) 11/16/2009 Type 2 diabetes mellitus with hyperglycemia ([facility]) 07/09/2024 Coronary artery disease involving [place] coronary artery of [place] heart without angina pectoris ([facility]) 09/16/2024 Diabetes mellitus due to underlying condition with diabetic cataract ([facility]) 09/16/2024 Nonischemic cardiomyopathy ([facility]) 09/16/2024 Overweight (BMI 25.0-29.9) 12/29/2024 Type 2 diabetes mellitus without complication ([facility]) 09/24/2012 Vasovagal syncope 10/26/2022 Resolved Ambulatory Problems Diagnosis Date Noted Diarrhea 07/09/2024 Dietary counseling and surveillance 07/09/2024 Rotator cuff strain 06/16/2013 S/P ablation of atrial fibrillation 05/02/2023 Past Medical History: Diagnosis Date Afib ([facility]) CHF (congestive heart failure) ([facility]) Diabetes mellitus type II, controlled ([facility]) GERD (gastroesophageal reflux disease) Hypercholesterolemia ([facility]) Hypogonadism in male Hypothyroid ([facility]) Stroke ([facility]) 2016 Past Surgical History: Procedure Laterality Date CARDIAC ELECTROPHYSIOLOGY MAPPING AND ABLATION CARPAL TUNNEL RELEASE Right 2014 CT ANGIOGRAM HEART CORONARY 04/26/2023 CT ANGIOGRAM TAVR 04/26/2023 PARATHYROIDECTOMY 12/2019 SHOULDER SURGERY Right 2009 and 2012 tendon repair THYROID 2009 VASECTOMY No Known Allergies Current Outpatient Medications on File Prior [...] 10 mg by mouth in the morning. insulin glargine (Lantus) 100 UNIT/ML injection as [...] each day at the same time [DISCONTINUED] furosemide (Lasix) 40 MG tablet TAKE 1 TABLET BY MOUTH DAILY FOR FLUID RETENTION DIRECTED No current facility-administered medications on file prior to visit. Objective Last Recorded Vitals There were no vitals filed for this visit. ENT Physical Exam Constitutional Appearance: patient appears well-developed, well-nourished and well-groomed, Communication/Voice: communication appropriate for developmental age; vocal quality normal; Assessment/Plan Diagnoses and all orders for this visit: Thyroid nodule (CMS/HCC) Reassuring US. Repeat in 6 mo and then annually if stable documented in this encounter [facility] 09-16-2024 Note [place] [facility] - [facility] Subjective Gadiel Smith is a 74 [...] Smoking status: Former Types: Cigarettes Quit date: 1991 Years since quittin.8 Smokeless tobacco: Never Vaping [...] in the mor (more content not included)... [facility] 07-14-2024 History of Present illness Narrative Subjective Patient ID: Alexis Smith is a 73 y.o. male who presents for Thyroid Nodule (Ultrasound 06/09/24. ) Pt has a long h/o thyroid nodules and a remote h/o parathyroidectomy. H/O prolactinoma tx medically. 05/3024 thyroid US shows a [id number] RT TR5 nodule. 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 Review of Systems All other systems reviewed and are negative. Family History Problem Relation Name Age of Onset Diabetes type II Mother Active Ambulatory Problems Diagnosis Date Noted Alzheimer's disease with late onset ([facility]) 06/27/2024 Dementia in other diseases classified elsewhere, unspecified severity, without behavioral disturbance, psychotic disturbance, mood disturbance, and anxiety ([facility]) 06/27/2024 History of ischemic stroke 06/27/2024 Personality change 06/27/2024 Pituitary mass ([facility]) 06/27/2024 Depression ([facility]) 06/27/2024 Memory impairment 06/27/2024 Abnormal stress test 04/28/2015 Acquired hypothyroidism (CMS/HCC) 07/09/2024 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[facility]) 02/23/2015 Atrial flutter ([facility]) 11/28/2022 Carotid stenosis, bilateral 04/01/2024 Chronic systolic heart failure (CMS/HCC) 11/15/2022 Constipation 07/09/2024 CVA (cerebral vascular accident) ([facility]) 10/26/2022 Diverticulosis of colon 07/09/2024 History of transient ischemic attack (TIA) 10/26/2022 Hypercalcemia 12/23/2012 Hyperlipidemia (CMS/HCC) 07/09/2024 Hypertension ([facility]) 07/09/2024 Hypogonadism male 12/23/2012 Incontinence of feces with fecal urgency 07/09/2024 Paroxysmal atrial fibrillation (CMS/HCC) 10/18/2022 Persistent atrial fibrillation (HCC) ([facility]) 10/16/2022 PFO (patent foramen ovale) 11/28/2022 Primary hyperparathyroidism ([facility]) 12/24/2019 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[facility]) 11/16/2009 Pure hypercholesterolemia ([facility]) 07/09/2024 Thyroid nodule ([facility]) 11/16/2009 Type 2 diabetes mellitus with hyperglycemia ([facility]) 07/09/2024 Resolved Ambulatory Problems Diagnosis Date Noted Diarrhea 07/09/2024 Dietary counseling and surveillance 07/09/2024 Rotator cuff strain 06/16/2013 S/P ablation of atrial fibrillation 05/02/2023 Past Medical History: Diagnosis Date Afib ([facility]) CHF (congestive heart failure) ([facility]) Diabetes mellitus type II, controlled (CMS/HCC) GERD (gastroesophageal reflux disease) Hypercholesterolemia (CMS/HCC) Hypogonadism in male Hypothyroid ([facility]) Stroke ([facility]) 2016 Past Surgical History: Procedure Laterality Date [...] sig growth found documented in this encounter [facility] 06-18-2024 Telephone encounter Note Summary: Sav Received a mail from Sav with a notice on the Authorization for MRI, Brain, W/O Contrast Dated: 06/04/24 Status: Approve Service Requested: MRI, Brain, W/O Contrast Effective Dates: 06/04/2024 - 09/01/2024 Reference #: [id number] Uploaded into scan docs. Please allow time for upload. [facility] 06-18-2024 Miscellaneous Notes Summary: [place] Received a mail from Sav with a notice on the Authorization for MRI, Brain, W/O Contrast Dated: 06/04/24 Status: Approve Service Requested: MRI, Brain, W/O Contrast Effective Dates: 06/04/2024 - 09/01/2024 Reference #: [id number] Uploaded into scan docs. Please allow time for upload. documented in this encounter [facility] 05-07-2024 History of Present illness Narrative [...] results for the last 24 hours, type .[id number] If you would like to pull in [...] which included preparing to see the patient, [id number] patient care, completing clinical documentation, obtaining and [...] Mandie Salamanca MD documented in this encounter [facility] Work Phone: 04-14-2024 Procedure note [facility] 04-01-2024 Note In light pt LDL 98.8 with noted moderate carotid stenosis and DM will increase statin- he states lipitor 40 mg in past caused myalgias therefore will switch to crestor 40 mg daily, repeat Carotid US to assess stenosis and LFT with lipid level in 3 months- he voiced agreement and understanding to call office for any myalgias or concerns [facility] 04-01-2024 Note [id number]= 6 Continue eliquis anticoagulation. Continue coreg- rate is well controlled and pt remains in Sinus rhythm RTC [address] Espinoza [facility] 04-01-2024 Note Congestive heart martha lure due to NICM Heart failure is stable . NYHA Class II. Continue current treatment regimen. Dietary sodium restriction. Encouraged daily monitoring of the patient's weight. Regular aerobic exercise. Continue current medications. Refer to Cardiology. Heart failure will be reassessed in 6 months. Currently euvolemic without exacerbation [facility] 04-01-2024 Note Remains is sinus rhy thm on ECG today [facility] 04-01-2024 Note Diabetes is uncontro lled A1C 9.6 in December- states that he eats doughnuts most mornings, and that his diet could be better F/U with PCP [facility] 04-01-2024 Note [facility] CARDIOLOGY PROGR ESS [...] on 10/15 and he went to the [facility] emergency department was found to be [...] moist. Eyes: E (more content not included)... [facility] 10-29-2023 Evaluation note Encounter Date Diagnosis [...] improved w present med increase in dose. [employer] Other 11-03-2023 Evaluation note* Encounter Date Diagnosis Assessment Notes Treatment Notes Treatment Clinical Notes Sep, Anxiety (ICD-10 - F41.9) [facility] Other 10-31-2023 Evaluation note* Encounter Date Diagnosis Assessment Notes Treatment Notes Treatment Clinical Notes Aug, Anxiety (ICD-10 - F41.9) [facility] Other 10-09-2023 Evaluation note* Encounter Date Diagnosis [...] from 25mg to 50mg for better results. [employer] Other [id number] Chief complaint Narrative - Reported* An interactive [...] Patient presents for a follow up visit. PR-Vxnmsqrjhdeao-RVP [facility] [address] Work Phone: 1(729) 299-858408-22-2022 Miscellaneous Notes* Telephone Encounter - Janee Hughes - 07/02/2022 2:37 PM EDT Received Thyroid US report from [facility]. Indexed into chart. [facility] Chief complaint Narrative - Reported* [...] follow-up for hypothyroidism, pituitary, and diabetes today. [facility] [address] Work Phone: Evaluation noteNo [email or web address] Other Evaluation note* Diagnosis Onset Date Resolution Status Bronchitis noneactive Constipation acute Incontinence of feces with fecal urgency [facility] Work Phone: Evaluation note* Diagnosis Hypopituitarism (Multi)- Primary Panhypopituitarism Hypogonadism male Other testicular hypofunction Hyperparathyroidism (Multi) Hyperparathyroidism, unspecified Hyperprolactinemia (Multi) Other and unspecified anterior pituitary hyperfunction Type 2 diabetes mellitus without complication, with long-term current use of insulin (Multi) Thyroid nodule Nontoxic uninodular goiter documented in this encounter [facility] Work Phone: Evaluation note* Diagnosis Thyroid nodule (CMS/HCC)- Primary Nontoxic uninodular goiter documented in this encounter [facility] Diagnosis Thyroid nodule (CMS/HCC)- Primary Nontoxic uninodular goiter documented in this encounter [facility]* Diagnosis Primary osteoarthritis of right hip- Primary documented in this encounter [facility] Author Merly Paul [facility] April 14, 2024 11:26am Note Date/Time April 14, 2024 11:26 am [facility] [address] [place] [address] Gastroenterology H&P Signed Patient: Gadiel Smith MR#: [id number] : 1950 Acct:[id number] Age/Sex: 73 / M Adm Date: 4 Loc: Room: Type: [facility] Attending Dr: Merly Paul DO Copies [...] signed by Merly Paul DO> 04/14/24 1126 [facility] Work Phone: History general Narrative - Reported* Type Description Date Medical History Diabetes mellitus Medical History Hyperlipemia Medical History Acid reflux Medical History Hiatal hernia Medical History Pituitary tumor Surgical History knee surgery Surgical History shoulder surgery Surgical History thyroid nodule removed Hospitalization History hematoma related to fall 2011 Hospitalization History TIA 03/2020 Hospitalization History DEHYDRATION 09/2020 [facility] Other History of Present illness Narrative* This [...] * -Most recent [place] on 12/2019 in [place], records not available * -Due for US [...] on file * Occupational History * Occupation: [employer] * Employer: [employer] * Comment: retired * Tobacco Use * Smoking status: Former Smoker * Years: 16.00 * Quit date: 12/12/1992 * Years since quittin.1 * Smokeless tobacco: Never Used * Substance and Sexual Activity * Alcohol use: No * Drug use: No * Sexual activity: Not on file * Other Topics * Concerns: * Not on file * Social History Narrative * 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 [facility] [address] Work Phone: Summary Purpose Family [...] [place] [id number] [facility] of Medicine-Endocrinology [place] [id number] Referral ID Status Reason Start Date Expiration Date Visits Requested Visits Authorized [id number] Pending Review Perform Procedure 05/07/2024 05/07/2025 1 1 Specialty Diagnoses / Procedures Referred By Saeid vences Referred To Contact Radiology Diagnoses Hypopituitarism (Multi) Hypogonadism male Hyperparathyroidism (Multi) Hyperprolactinemia (Multi) Type 2 diabetes mellitus without complication, with long-term current use of insulin (Multi) Thyroid nodule [place] [address] [facility] of Medicine-[facility]ocrinology [place] [id number] Referral ID Status Reason Start Date Expiration Date Visits Requested Visits Authorized [id number] Authorized Perform Procedure 05/07/2024 05/07/2025 1 1 Additional Source Comments (unrecognized sect ion and content) No Status Records FoundNo Status Records FoundNo Status Records FoundNo Status Records FoundNo Status Records FoundNo Status Records FoundNo Status Records FoundNo Status Records Found INFORMATION SOURCE (unrecogn ized section and content) DATE CREATED AUTHOR 05/07/2018 [facility] DATE CREATED AUTHOR AUTHOR'S ORGANIZ ATION 10/11/2022 [facility] DATE CREATED AUTHOR AUTHOR'S ORGANIZ ATION 10/11/2022 [employer] DATE CREATED AUTHOR AUTHOR'S ORGANIZ ATION 03/04/2023 [facility] [place] [facility] DATE CREATED AUTHOR AUTHOR'S ORGANIZ ATION 04/22/2024 [facility] DATE CREATED AUTHOR AUTHOR'S ORGANIZ ATION 06/21/2024 [facility] DATE CREATED AUTHOR AUTHOR'S ORGANIZ ATION 12/27/2024 [facility] DATE CREATED AUTHOR AUTHOR'S ORGANIZ ATION 02/14/2025 [facility] [employer] Source Comments (unrecognize d section and content) In the event this informatio n is protected by the Federal Confidentiality of Alcohol and Drug Abuse Patient Records regulations: The Federal rules restrict any use of the information to criminally investigate or prosecute any alcohol or drug abuse patient.[facility] the event this information is protected by the Federal Confidentiality of Alcohol and Drug Abuse Patient Records regulations: The Federal rules restrict any use of the information to criminally investigate or prosecute any alcohol or drug abuse patient.[facility] Reason for Visit (unrecogniz ed section and content) Reason Comments Received Outside Medical Records Receive d Thyroid US report from [facility]. Indexed into chart. Reason Comments Insurance Authorization [place] Reason Comments Follow-up Pituitary Problem Reason Comments Thyroid Nodule Ultrasound 06/09/24. Reason Comments Thyroid Nodule 5 month ultrasound T 12/23/24 Reason Comments Osteoarthritis Specialty Diagnoses / Procedures Referred By Contac t Referred To Contact Orthopaedic Surgery Diagnoses Primary osteoarthritis of right hip Isaura Garber, [employer] [address] [place] [address] Phone: tel: fax: Ansley Chaves, [address] [facility] [address] [place], [place] Phone: tel: fax: Referral ID Status Reason Start Date Expiration Date V isits Requested Visits Authorized [id number] Closed Specialty Services Required 02/01/2025 07/31/2025 1 1 Care Teams (unrecognized sec tion and content) [employer] Relationship Specialty Start Date End Date [...] Other Provider Active Start: April 14, 2024 [employer] Specialist Relationship Specialty Start Date End Date Cabrera Dupont MD PCP - General Family Medicine 01/21/19 [employer] Special[employer] Relationship Specialty Start Date End Date Cabrera Dupont MD [address] [facility] [place] [address] PCP - General 11/30/20 [employer] Specialist Relationship Specialty Start Date End Date Joseluis Quiroz MD [address] [facility] [place] [address] PCP - General Family Medicine 03/23/24 [employer] Coord[employer] Specialist Relationship Specialty Start Date End Date Joseluis Quiroz MD [address] [facility] [place] [address] PCP - General Family Medicine 03/23/24 [employer] Coord[employer] Specialist Relationship Specialty Start Date End Date Joseluis Quiroz MD [address] [facility] [place] [address] PCP - General Family Medicine 03/23/24 [employer] Coordination Specialist Relationship Specialty Start Date End Date Joseluis Quiroz MD [address] [facility] [place] [address] PCP - General Family Medicine 03/23/24 [employer] Coordination Specialist Relationship Specialty Start Date End Date Joseluis Quiroz MD [address] [facility] [place] [address] PCP - General Family Medicine 03/23/24 [employer] Coord[employer] Specialist Relationship Specialty Start Date End Date Joseluis Quiroz MD [address] [place] [phone] PCP - General Family Medicine 03/23/24 FOR [...] BE BASED ON THE PRIMARY CLINICAL RECORDS. [facility] [employer] [facility]. provides no warranty or guarantee of the accuracy or completeness of information in this document.
[2025-04-15 09:17] LABS: Alanine Aminotransferase 22 U/L (16-63); Aspartate Amino Transferase 13 U/L (15-37); Chol HDL Ratio 1.9; Cholesterol 109 mg/dL (<=200); HDL Cholesterol 57 mg/dL (40-60); LDL Cholesterol Calculated 36.2 mg/dL; Triglycerides 79 mg/dL (<=150); VLDL CHOLESTEROL 15.8 mg/dL
== END 2025-04-15 08:41 | disposition home or self-care (01) ==
LOC: LAB 08:42
PROVIDERS: PCP Family Medicine; Visit Provider Internal Medicine Cardiovascular Disease
DX: E78.5 Hyperlipidemia, unspecified (principal)
CPT/HCPCS: 36415; 80061; 84450; 84460

== ENCOUNTER 2025-05-24 10:37 | Outpatient (OUT) | payer MEDICARE, SELFPAY ==
[2025-05-24 11:22] LABS: Hematocrit 40.8 % (42.0-54.0); Hemoglobin 13.3 g/dL (14.0-18.0); Immature Granulocytes Abs Auto 0.03 10^3/uL (0.00-0.03); Immature Granulocytes Pct Auto 0.5 % (0.0-0.5); Lymphocytes Absolute Auto 1.2 10^3/uL (1.2-3.8); Mean Corpuscular HGB Conc 32.6 g/dL (29.9-35.2); Mean Corpuscular Hemoglobin 29.6 pg (25.9-34.0); Mean Corpuscular Volume 90.7 fL (80.0-94.0); Platelet Count 195 10^3/uL (150-450); Red Blood Count 4.50 10^6/uL (4.70-6.10); White Blood Count 6.3 10^3/uL (4.0-11.0)
[2025-05-24 11:42] LABS: Microalbum Creatinine Ratio Ur 47.7 mg/g (0.0-29.9)
[2025-05-24 12:06] LABS: Alanine Aminotransferase 14 U/L (16-63); Albumin Globulin Ratio 1.1; Albumin Level 3.6 g/dL (3.4-5.0); Alkaline Phosphatase 59 U/L (46-116); Anion Gap 10.7; Aspartate Amino Transferase 8 U/L (15-37); Blood Urea Nitrogen 13.0 mg/dL (7.0-18.0); Calcium 9.2 mg/dL (8.5-10.1); Carbon Dioxide 29.8 mmol/L (21.0-32.0); Chloride 105 mmol/L (98-107); Cholesterol 125 mg/dL (<=200); Estimated GFR (African America >60 (>=60 mL/min/1.73m^2); Estimated GFR (Non-African Ame >60 (>=60 mL/min/1.73m^2); Globulin 3.4 g/dL; Glucose 240 mg/dL (74-106); HDL Cholesterol 60 mg/dL (40-60); Potassium 4.5 mmol/L (3.5-5.1); Sodium 141 mmol/L (136-145); Thyroid Stimulating Hormone 1.483 uIU/mL (0.358-3.740); Total Protein 7.0 g/dL (6.4-8.2); Triglycerides 86 mg/dL (<=150); VLDL CHOLESTEROL 17.2 mg/dL
== END 2025-05-24 10:38 | disposition home or self-care (01) ==
LOC: LAB 10:40
PROVIDERS: PCP Family Medicine; Visit Provider Family Medicine
DX: Z00.00 Encounter for general adult medical examination without abnormal findings (principal); E03.9 Hypothyroidism, unspecified; E11.65 Type 2 diabetes mellitus with hyperglycemia; Z79.4 Long term (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 insulin; E78.5 Hyperlipidemia, unspecified; I10 Essential (primary) hypertension
CPT/HCPCS: 36415; 80053; 80061; 82043; 82570; 83036; 84439; 84443; 85025

== ENCOUNTER 2025-06-29 11:22 | Outpatient (OUT) | payer MEDICARE, SELFPAY ==
--- NOTE | 2025-06-29 11:24 | US_ITS ---
The [address] [address] Patient Name: SANTA SMITH MRN: [id number] date: 1950 Sex: M Assigned Patient Location: US Current Patient Location: US Accession/Order Number: [id number] Exam Date: 06/29/2025 12:27 Report Date: 06/29/2025 12:30 At the request of: HENRRY JOHNSON MD Procedure: US thyroid Thyroid Ultrasound HISTORY: Follow-up thyroid nodules COMPARISON: 12/23/2024 The RIGHT lobe measures 4.6 x 1.2 x 2.3cm. LEFT lobe measures 3.8 x 1.4 x 1.7 cm. Isthmus has an AP dimension of 0.5cm. Heterogeneous thyroid parenchyma throughout. Right mid 4 mm nodule. 9 mm right mid thyroid nodule. 5 mm left mid thyroid nodule. 1 cm left inferior thyroid nodule.. Similar prior examination. Predominant cystic and solid nodules. No new nodules. No enlarging nodules. No microcalcifications identified. Symmetric blood flow of the thyroid gland identified. US/US thyroid IMPRESSION: Similar small bilateral thyroid nodules. Follow-up assessment in one year recommended. Impression dictated by: Rocky Coello M.D. 06/29/2025 12:30 PM Dictation Location: [id number] Electronically authenticated by: [id number] Y Date: 06/29/2025 12:30
--- OUTSIDE RECORDS SUMMARY | 2025-06-29 14:39 | XMS_ITS | CCD ---
Author Organization [facility] Care Team Providers Care Fryline Attendant Name Role Phone PHYSICIAN, DEFAULT Unavailable Unavailable PHYSICIAN, DEFAULT Unavailable Unavailable PHYSICIAN, DEFAULT Unavailable Unavailable PHYSICIAN, DEFAULT Unavailable Unavailable Cabrera Dupont Unavailable Cabrera Dupont MD Primary Care Provider [phone] Cabrera Dupont Primary Care Unavailab le Hatipoglu, Dr. Mandie Piper Attending Irmai lable Hatipoglu, Dr. Mandie Piper Referring Unavai lable Self, Referral Referring Unavailable Hatipoglu, Dr. Mandie Piper Attending Syed Dupont, Dr. Cabrera Gaspar Primary Care Unavailab le QUIROZ, DR JOSELUIS Austin Primary Care Unavailable YEARTONY QUIROS Attending Unavailable YEARTONY QUIROS Admitting Unavailable MISC, DR LOZADA Attending Unavailable WEST, DR GEORGIE Erwin Consulting Unavailable QUIROZ, DR JOSELUIS Austin Primary Care Unavailable MISC, DR LOZADA Admitting Unavailable MISC, DR LOZADA Consulting Unavailable TONA ROSENBERG Admitting Unavailable QUIROZ, DR JOSELUIS Austin Primary Care Unavailable TONA ROSENBERG Attending Unavailable SHAKIRATONA Shepherd Consulting Unavailable MAUREENJANEE [...] Unavailable Cabrera Dupont MD Primary Care Provider [phone] Cabrera Dupont MD Primary Care Provider Joseluis Quiroz MD Primary Care Provider RAPHAEL SPRINGER Attending Unavailable HENRRY JOHNSON Attending Unavailable JOSELUIS QUIROZ Referring Unavailable HENRRY JOHNSON Attending Unavailable ISAURA GARBER Attending Unavailable ISAURA GARBER Referring Unavailable ANSLEY CHAVES Attending Unavailable ISAURA GARBER Referring Unavailable Joseluis Quiroz MD Primary Care Provider [phone] Milan Peña MD Attending Provider Joseluis Quiroz MD Attending Provider [phone] TONA ROSENBERG Attending Unavailable MILAN PEÑA Attending Unavailable Joseluis Quiroz MD Primary Care Provider [phone] Allergies Allergy Classification Reported Allergen(s) Allergy Type Date of Onset Reaction(s) Facility (2 sources) Lisinopril Drug Allergy 5 Other: See Comments [facility] Work Phone: (1 source) Lisinopril Propensity to adverse reactions 5 [facility] Work Phone: Medications Current Medications Medication Drug Class(es) Dates Sig (Normalized) Sig (Original) [id number] 200 actuat albuterol 0.09 mg/actuat metered dose inhaler (11 sources) beta2-Adrenergic Agonist Start: 03-08-2024 take 2 [...] every 12 hours. 02/26/2024 Active Start: 01-28-2024 End: 03-16-2025 take 1 tablet by mouth twice daily Apixaban (Eliquis) 5 mg tablet Active 0 .ROUTE .COMPLEX 180 March 16, 2025 1:27pm TAKE 1 TABLET BY MOUTH TWICE A DAY Complies with drug therapy Start: 01-28-2024 End: 01-28-2024 take 1 tablet by mouth twice daily Apixaban 5 mg tablet Discontinued 5 MG PO Twice daily January [...] other day for 0 *Pick strength-form from [facility] for eRX* Jul, Active Ocuvite TABS WYATT [...] Take 81 mg by mouth once daily. BD Pen Needle Mini U/F (7 sources) BD Pen Needle Mini U/F BD Pen Needle Mini U/F , 2 (two) Injection Injection as directed # 2, 11/16/2021, Ref. x1. Active as directed for 90 days patient takes 2 injections daily Active 24 hr buPROPion hydrochloride 150 mg extended release oral tablet (20 sources) Aminoketone Start: 03-06-20 End: 04-21-20 take 1 tablet by mouth once daily Bupropion Hcl 150 mg tablet extended release 24 hr Active 150 MG PO Daily April 21, 2025 1:20pm Complies with drug therapy Start: 01-10-2024 take 1 tablet by woody th every twelve hours buPROPion XL (Wellbutrin XL) 150 mg 24 hr tablet Take 1 tablet (150 mg) by mouth every 12 hours. 01/10/2024 Active Start: 07-23-2022 take 1 tablet by woody th every twenty-four hours buPROPion HCl ER (XL) 150 MG 1 tablet in the morning Oral Once a day *Pick strength-form from [facility] for eRX* Jul, Active Start: 07-23-2022 take 1 tablet by woody th twice daily buPROPion HCl ER (XL) 150MG buPROPion HCl ER (XL) 150MG, 1 (one) Tablet Tablet two times daily # 180, 07/23/2022, Ref. x1. Active Oral two times daily for 0 *Pick strength-form from [facility] for eRX* Jul, Active Start: 04-13-2020 take [...] tablet (20 sources) Ergot Derivative Start: 04-13-20 End: 12-18-19 take 1 tablet by mouth every other day cabergoline (Dostinex) 0.5 MG tablet Take 0.5 mg by mouth every other day 10/10/2023 Active Comment on above: Take one tablet ever y other day carvedilol 6.25 mg oral tablet (20 sources) alpha-Adrenergic Veronica, beta-Adrenergic Veronica Start: 02-26-20 take 1 tablet by mouth twice daily Carvedilol 6.25 mg tablet Active 6.25 MG PO Twice daily March 06, 2024 12:00am Complies with drug therapy Citracal Plus (5 sources) Citracal Plus Ac tive CYANOCOBALAMIN, VITAMIN B-12, (VITAMIN B-12 ORAL) (2 sources) CYANOCOBALAMIN, VITAMIN B-12, (VITAMIN B-12 ORAL) Take by mouth once daily. 0 Active Comment on above: Take by mouth once d aily. dapagliflozin 10 mg oral tablet (20 sources) Sodium-Glucose Cotransporter 2 Inhibitor Start: 03-06-20 take 1 tablet by mouth once daily Dapagliflozin Propanediol (Farxiga) 10 mg tablet Active 10 MG PO Daily March 06, 2024 12:00am Complies with drug therapy escitalopram 10 mg oral tablet (20 sources) Serotonin Reuptake Inhibitor Start: 06-10-20 End: 03-05-20 take 1 tablet by mouth once daily Escitalopram Oxalate 10 mg tablet Active 0 .ROUTE .COMPLEX March 05, 2025 1:10pm TAKE 1 TABLET BY MOUTH EVERY DAY FOR 30 DAYS Complies with drug therapy Start: 08-19-2023 End: 06-10-2024 take 1 tablet by mouth once daily in the evening Escitalopram Oxalate 10 mg tablet Discontinued 10 MG PO Every evening March 31, 2024 12:00am June 10, 2024 8:32am FreeTextSi tablet Orally Once a day; Note: Source Status: Taking; Refills: 3; Provider: Ellie Austin esomeprazole 40 mg delayed release oral capsule (20 sources) Proton Pump Inhibitor Start: 06-10-2024 End: 03-05-2025 take 1 capsule by mouth once daily Esomeprazole Magnesium 40 mg capsule,delayed release(DR/EC) Active 0 .ROUTE .COMPLEX March 05, 2025 1:10pm TAKE 1 CAPSULE BY MOUTH DAILY Complies with drug therapy Start: 03-06-2024 End: 06-10-2024 take 1 capsule by mouth once daily Esomeprazole Magnesium (Nexium) 40 mg capsule,delayed release(DR/EC) Discontinued 40 MG PO Daily March 16, 2024 8:39am June 10, 2024 8:32am esomeprazole (Ne xIUM) [address] capsule 2 capsules 1 (one) time each day at the same time Active take 1 capsule by [facility] once daily esomeprazole 20 mg capsule Indications: Thyroid nodule , 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HCC) , Type II or unspecified type diabetes mellitus without mention of complication, uncontrolled , Hypogonadism male , Hypercalcemia Take 20 mg by mouth once daily. 0 Active Comment on above: Take 20 mg by mouth once daily. furosemide 40 mg oral tablet (8 sources) Loop Diuretic Start: 04-23-2025 take 1 tablet by mouth once daily Furosemide 40 mg tablet Active 40 MG PO Daily April 23, 2025 12:00am Complies with drug therapy End: 12-29-2024 take 1 tablet by mouth once daily for edema furosemide (Lasix) 40 MG tablet TAKE 1 TABLET BY MOUTH DAILY FOR FLUID RETENTION DIRECTED 12/29/2024 Discontinued (Therapy completed) 3 ml insulin glargine 100 unt/ml pen injector (20 sources) Insulin Analog Start: 05-03-2025 End: 05-03-2025 Insulin Glargine (Lantus Solostar U-100 Insulin) 100 unit/mL (3 mL) insulin pen Active 45 UNIT SUBCUT Every morning May 03, 2025 10:52am Complies with drug therapy Start: 05-07-2024 Lantus Solosta r U-100 Insulin 100 unit/mL (3 mL) pen Indications: Hypopituitarism (Multi) , Hypogonadism male , Hyperparathyroidism (Multi) , Hyperprolactinemia (Multi) , Type 2 diabetes mellitus without complication, with long-term current use of insulin (Multi) Inject 35 Units under the skin once daily in the morning. 15 mL 11 05/07/2024 Active Start: 03-31-2024 End: 05-03-2025 Insulin Glargine (Lantus Beatriz ostar U-100 Insulin) 100 unit/mL (3 mL) insulin pen Discontinued 35 UNIT SUBCUT Every morning March 31, 2024 12:00am May 03, 2025 10:52am Start: 04-13-2020 insulin glargi ne (LANTUS SOLOSTAR [...] MCG PO Daily March 31, 2024 12:00am Complies with drug therapy Start: 03-06-2024 End: 05-07-2024 take 1 tablet by mouth once daily [...] (20 sources) Angiotensin Converting Enzyme Inhibitor Start: End: take 1 tablet by mouth once daily Lisinopril 5 mg tablet Active 5 MG PO Daily November 30, 2024 4:57pm Complies with drug therapy metFORMIN hydrochloride 500 mg oral tablet (20 sources) Biguanide Start: End: take 1 tablet by mouth once daily Metformin 500 mg tablet Active 500 MG PO Daily December 17, 2024 1:50pm Complies with drug therapy Start: 03-06-2024 End: 04-14-2024 take 1 tablet by mouth once daily in the evening Metformin 500 mg tablet Discontinued 500 MG PO Every evening March [...] MEALS MULTIVIT &MINERALS/FERROUS FUM (MULTI VITAMIN ORAL) (2 sources) MULTIVIT &MINERALS/FERROUS FUM (MULTI VITAMIN ORAL) Take by mouth once daily. 0 Active Comment on above: Take by mouth once d aily. rosuvastatin calcium 40 mg oral tablet (13 sources) HMG-CoA Reductase Inhibitor Start: 04-01-20 take 1 tablet by mouth once daily rosuvastatin (Crestor) 40 MG tablet Take 40 mg by mouth Daily 04/01/2024 Active sildenafil 50 mg oral tablet (11 sources) Phosphodiesterase 5 Inhibitor Start: 09-16-20 take 1 tablet by mouth once daily as needed Sildenafil 50 mg tablet Active 0 .ROUTE .COMPLEX 9 September 16, 2024 2:57pm TAKE 1 TABLET BY MOUTH ONCE A DAY NEEDED DIRECTED FOR 30 DAYS Complies with drug therapy Start: 03-06-2024 End: 09-16-2024 take 1 tablet by mouth once daily Sildenafil 50 mg tablet Discontinued 50 MG PO Daily March 06, 2024 12:00am September 16, 2024 2:57pm Start: 07-12-2022 take 1 tablet by woody th once daily Sildenafil Citrate 25MG Sildenafil Citrate 25MG, 1 (one) Tablet daily as directed # 10, 07/12/2022, Ref. x2. Active Oral daily as directed for 30 *Pick strength-form from [facility] for eRX* Jul, Active take 1 tablet by woody th once daily as needed Sildenafil Citrate 50 MG 1 tablet as needed Orally daily as directed for 30 days *Pick strength-form from [employer] for eRX* Active spironolactone 25 mg oral tablet (20 sources) Aldosterone Antagonist Start: 03-06-2024 Spironolactone 25 mg tablet Active 12.5 MG PO Every evening March 06, 2024 12:00am Complies with drug therapy Start: 03-06-2024 take 12.5 mg by mout h once daily in the evening Spironolactone Active [...] topical gel (20 sources) Androgen Start: 03-06-2024 End: 11-03-2024 testosterone 1 % (50 mg/5 gr am) gel in packet Indications: Hypopituitarism (Multi) , Hypogonadism male , Hyperparathyroidism (Multi) , Hyperprolactinemia (Multi) , Type 2 diabetes mellitus without complication, with long-term current use of insulin (Multi) Place 1 packet (50 mg) on the skin once daily. 90 packet 1 05/07/2024 11/03/2024 Active Start: 07-12-2022 AndroGel 50 MG /5GM(1%) AndroGel( 50 MG/5GM(1%) Transdermal daily ) Active -Hx Entry Transdermal daily for 0 *Reorder from [facility] for eRx and Interaction Alerts* Jul, Active [...] Drug Class(es) Dates Sig (Normalized) Sig (Original) atorvastatin 20 mg oral tablet (20 sources) HMG-CoA Reductase Inhibitor Start: 03-06-2024 End: 05-20-2024 take 1 tablet by mouth once daily at bedtime Atorvastatin 20 mg tablet Discontinued 20 MG PO Daily at bedtime March 06, 2024 12:00am May 20, 2024 10:45am Start: 01-21-2019 take 1 tablet by woody [...] Active doxycycline hyclate 100 mg oral capsule (2 sources) Tetracycline-class Drug Start: End: take 1 capsule by mouth twice daily Doxycycline Hyclate 100 mg capsule Discontinued 100 MG PO Twice daily 30 08March 06, 2024 12:00am March 18, 2024 10:40am hydrOXYzine hydrochloride 25 mg oral tablet (6 sources) Antihistamine take 1 tablet by mouth at bedtime as needed hydrOXYzine HCl - 25 MG Oral Tablet TAKE 1 TABLET AT BEDTIME NEEDED Quantity: 0 Refills: 0 Ordered: 30-Nov-2020 DO Active melatonin 5 mg oral capsule (10 sources) Start: Melatonin 5 MG Oral Capsule TAKE 1 CAPSULE BY MOUTH NEEDED. Quantity: 0 Refills: 0 Ordered: 24-Apr-2022 DO Start : 24-Apr-2022 Active 24 hr oxybutynin chloride 5 mg extended [...] [Unspecified abdominal pain] Episodic Acute cerebrovascular disease (11 sources) Cerebrovascular accident; Translations: [Cerebral infarction, unspecified] Onset: 2 07-09-2024 Chronic Anxiety disorders (10 sources) Anxiety; Translations: [Anxiety disorder, unspecified] Chronic Cardiac and circulatory congenital anomalies (11 sources) Patent foramen ovale; Translations: [PFO (patent foramen ovale)] Onset: 3 07-09-2024 Chronic Cardiac dysrhythmias (20 sources) Paroxysmal atrial fibrillation; Translations: [Unspecified atrial fibrillation] Onset: 2 Chronic Comment on above: nov 2022 Chronic obstructive pulmonary disease and bronchiectasis (1 [...] Chronic Coronary atherosclerosis and other heart disease (6 sources) Coronary arteriosclerosis; Translations: [Atherosclerotic heart disease of [place] coronary artery without angina pectoris] Onset: 4 [...] 2 09-08-2015 Chronic Diabetes mellitus without complication (8 sources) Type 2 diabetes mellitus without complications; Translations: [Diabetes mellitus] Onset: 2 03-06-2024 Chronic Disorders of lipid metabolism (20 sources) Hyperlipidemia; Translations: [Other and unspecified hyperlipidemia] Onset: 2 Chronic Diverticulosis and diverticulitis (11 sources) Diverticulosis of colon; Translations: [Diverticulosis of large intestine without perforation or abscess without bleeding] Onset: 4 07-09-2024 Chronic Esophageal disorders (1 source) Gastro-esophageal reflux disease without esophagitis; Translations: [GERD WITHOUT ESOPHAGITIS] Onset: 3 Chronic Essential hypertension (14 sources) Hypertensive disorder; Translations: [Essential (primary) hypertension] Onset: 4 02-11-2024 Chronic Miscellaneous mental health disorders (11 sources) 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; Translations: [Other specified disorders of adult personality and behavior] Onset: 4 06-27-2024 Chronic Mood disorders (11 sources) Depressive disorder; Translations: [Depression] Onset: 4 06-27-2024 Chronic Nausea and vomiting (7 sources) Nausea; Translations: [Nausea] Episodic Occlusion or stenosis of precerebral arteries (11 sources) Bilateral stenosis of carotid arteries; Translations: [Occlusion and stenosis of bilateral carotid arteries] Onset: 4 07-09-2024 Chronic Osteoarthritis (3 sources) Unspecified osteoarthritis, unspecified site; Translations: [Osteoarthritis of right hip joint] Onset: 3 02-09-2025 Chronic Other aftercare (7 sources) Long-term current use of insulin; 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] Episodic Other [...] Translations: [Hyperprolactinemia] 05-07-2024 Chronic Other endocrine disorders (11 sources) Pituitary mass; Translations: [Other disorders of pituitary gland] Onset: 4 06-27-2024 Chronic Other endocrine disorders (11 sources) Primary hyperparathyroidism; Translations: [Primary hyperparathyroidism] Onset: [...] Chronic Other nutritional; endocrine; and metabolic disorders (13 sources) Hypercalcemia; Translations: [Hypercalcemia] Onset: 3 12-23-2012 Chronic Other nutritional; endocrine; and metabolic disorders (7 sources) Loss of appetite; Translations: [Anorexia] Episodic Other nutritional; endocrine; and metabolic disorders (6 sources) Weight loss; Translations: [Abnormal weight loss] Episodic Other nutritional; endocrine; and metabolic disorders (1 source) Abnormal weight loss; Translations: [Weight loss] Episodic Angelica-; endo-; and myocarditis; cardiomyopathy (except that caused by tuberculosis or sexually transmitted disease) (6 sources) Cardiomyopathy; Translations: [Other cardiomyopathies] Onset: 4 12-29-2024 Chronic 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; 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] Onset: 0 11-16-2009 Chronic Unclassified (1 source) CONTACT W/AND (SUSP) EXPOS COVID-19; Translations: [CONTACT W/AND (SUSP) EXPOS COVID-19] Onset: 3 Unclassified (2 sources) Permanent atrial fibrillation; Translations: [Permanent atrial fibrillation] Onset: 4 Past or Other Problems Problem Classification Problem Date Documented Da te Episodic/Chronic Administrative/social admission (13 sources) Patient encounter status; Translations: [Dietary counseling and surveillance] Onset: 07-09-2024 Resolved: 07-09-2024 02-11-2024 Episodic Menopausal disorders (1 source) Hormone replacement therapy; Translations: [HORMONE REPLACEMENT THERAPY] Onset: 11-13-2022 Episodic Other aftercare (1 source) Other longterm (current) drug therapy; Translations: [OTH GRINDER GEAR CURRENT DRUG THERAPY] Onset: 11-13-2022 Episodic Other aftercare (1 source) 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; Translations: [GRINDER GEAR USE ORAL HYPOGLYCEMIC DX] Onset: 11-13-2022 Episodic Other aftercare (1 source) penitentiary (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 insulin; Translations: [HALFWAY CURRENT USE OF INSULIN] Onset: 11-13-2022 Episodic Other aftercare (1 source) penitentiary (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 aspirin; Translations: [HALFWAY CURRENT USE OF ASPIRIN] Onset: 10-17-2022 Episodic Other and unspecified benign neoplasm (15 sources) Prolactinoma; 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 [...] DEFICIT] Onset: 11-13-2022 Episodic Other circulatory disease (11 sources) History of cerebrovascular accident due to ischemia; Translations: [Personal history of transient ischemic attack (TIA), and cerebral infarction without residual deficits] Onset: 06-27-2024 06-27-2024 Episodic Other circulatory disease (11 sources) History of transient ischemic attack; Translations: [Personal history of transient ischemic attack (TIA), and cerebral infarction without residual deficits] Onset: 10-26-2022 07-09-2024 Episodic Other gastrointestinal disorders (13 sources) Diarrhea; Translations: [Diarrhea, unspecified] Onset: 07-09-2024 Resolved: 07-09-2024 03-18-2024 Episodic Other gastrointestinal disorders (13 sources) Fecal incontinence with fecal urgency; Translations: [Full incontinence of feces] Onset: 07-09-2024 03-18-2024 Episodic Comment on above: Suspect patient has constipation with overflow Other gastrointestinal disorders (13 sources) Constipation; Translations: [Constipation, unspecified] Onset: 07-09-2024 03-18-2024 Episodic Other lower respiratory disease (3 sources) Shortness of breath; Translations: [SHORTNESS OF BREATH] Onset: 11-10-2022 Episodic Other lower respiratory disease (1 source) Dyspnea, unspecified; Translations: [DYSPNEA UNSPECIFIED] Onset: 10-17-2022 Episodic Other nutritional; endocrine; and metabolic disorders (6 sources) Body mass index 25-29 - overweight; Translations: [Overweight] Onset: 12-29-2024 12-29-2024 Episodic Other screening for suspected conditions (not mental disorders or infectious disease) (14 sources) Cardiovascular stress test abnormal; Translations: [Abnormal result of other cardiovascular function study] Onset: 04-28-2015 04-28-2015 Episodic Residual codes; unclassified (11 sources) Memory impairment; Translations: [Other amnesia] Onset: 06-27-2024 06-27-2024 Episodic Residual codes; unclassified (11 sources) H/O: atrial fibrillation; Translations: [Other specified postprocedural states] Onset: 05-02-2023 Resolved: 07-09-2024 07-09-2024 Episodic Screening and history of mental health and substance abuse codes (1 source) Personal history of nicotine dependence; Translations: [PERSONAL HISTORY OF NICOTINE DEPEND] Onset: 11-13-2022 Episodic Sprains and strains (13 sources) Strain of rotator cuff of shoulder; Translations: [Strain of muscle(s) and tendon(s) of the rotator cuff of unspecified shoulder, initial encounter] Onset: 06-16-2013 Resolved: 07-09-2024 06-16-2013 Episodic Syncope (6 sources) Vasovagal syncope; Translations: [Syncope and collapse] Onset: 10-26-2022 12-29-2024 Episodic Results Test Name Value Interpretation Reference Range Facility US Thyroid [facility] [address] [address] Ultrasound Report Signed Patient: GADIEL LIANG MR#: [id number] : 1950 Acct:[id number] Age/Sex: 74 / M ADM Date: 06/29/25 Loc: US Attending Dr: Henrry Johnson M.D. Ordering Physician: Henrry Johnson M.D. Date of Service: 06/29/25 Procedure(s): US thyroid Accession Number(s): [id number] cc: Joseluis Quiroz M.D.; Henrry Johnson M.D. The [place] [address] Patient Name: GADEIL LIANG MRN: [facility]:[id number] date: 1950 Sex: M Assigned Patient Location: US Current Patient Location: US Accession/Order Number: [id number] Exam Date: 06/29/2025 12:27 Report Date: 06/29/2025 12:30 At the request of: HENRRY JOHNSON MD Procedure: US thyroid Thyroid Ultrasound HISTORY: Follow-up thyroid nodules COMPARISON: 12/23/2024 The RIGHT lobe measures 4.6 x 1.2 x 2.3cm. LEFT lobe measures 3.8 x 1.4 x 1.7 cm. Isthmus has an AP dimension of 0.5cm. Heterogeneous thyroid parenchyma throughout. Right mid 4 mm nodule. 9 mm right mid thyroid nodule. 5 mm left mid thyroid nodule. 1 cm left inferior thyroid nodule.. Similar prior examination. Predominant cystic and solid nodules. No new nodules. No enlarging nodules. No microcalcifications identified. Symmetric blood flow of the thyroid gland identified. US/US thyroid IMPRESSION: Similar small bilateral thyroid nodules. Follow-up assessment in one year recommended. Impression dictated by: Rocky Coello M.D. 06/29/2025 12:30 PM Dictation Location: [place] [address] Electronically authenticated by: [id number] Y Date: 06/29/2025 12:30 Dictated By: Rocky Coello D.O. Signed By: 06/29/25 1232 DD/ 1230 TD/TT: Billing Manager: [facility] Radiology, Radiologi MD jake - 06/29/2025 [place] [address] Ultrasound Report Signed Patient: GADIEL LIANG MR#: [id number] : 1950 Acct:[id number] Age/Sex: 74 / M ADM Date: 06/29/25 Loc: US Attending Dr: Henrry Johnson M.D. Ordering Physician: Henrry Johnson M.D. Date of Service: 06/29/25 Procedure(s): US thyroid Accession Number(s): [id number] cc: Joseluis Quiroz M.D.; Henrry Johnson M.D. [place] [address] Patient Name: GADIEL LIANG MRN: [id number] date: 1950 Sex: M Assigned Patient Location: US Current Patient Location: US Accession/Order Number: [id number] Exam Date: 06/29/2025 12:27 Report Date: 06/29/2025 12:30 At the request of: HENRRY JOHNSON MD Procedure: US thyroid Thyroid Ultrasound HISTORY: Follow-up thyroid nodules COMPARISON: 12/23/2024 The RIGHT lobe measures 4.6 x 1.2 x 2.3cm. LEFT lobe measures 3.8 x 1.4 x 1.7 cm. Isthmus has an AP dimension of 0.5cm. Heterogeneous thyroid parenchyma throughout. Right mid 4 mm nodule. 9 mm right mid thyroid nodule. 5 mm left mid thyroid nodule. 1 cm left inferior thyroid nodule.. Similar prior examination. Predominant cystic and solid nodules. No new nodules. No enlarging nodules. No microcalcifications identified. Symmetric blood flow of the thyroid gland identified. US/US thyroid IMPRESSION: Similar small bilateral thyroid nodules. Follow-up assessment in one year recommended. Impression dictated by: Rocky Coello M.D. 06/29/2025 12:30 PM Dictation Location: [place] [address] Electronically authenticated by: [id number] Y Date: 06/29/2025 12:30 Dictated By: Rocky Coello D.O. Signed By: 06/29/25 1232 DD/ 1230 TD/TT: Billing Manager: [facility] Radiology Study observation (narrative) [facility] US Thyroid glandOrdered By: Radiologist Radiology on 06-29-2025 [facility] Healthcare Work Phone: [phone] 05-18-2025 36 Regarding lab result s from 04/15/2025: Milan Peña MD to Ar 04/25/25 5:45 PM Good lipids and AST ALT, continue current management and recheck in 6 months Lab orders to be done prior to Oct 2025 apt were mailed to patient. Normal [facility] Results Follow-Upon 04-25-20 Results Follow-Up [id number] Barber Liang eliseo E 1950 M Date Provider Department Center 04/25/2025 [id number] PEÑA [facility] Family History Problem Relation Age of [...] Grandfather Paternal Grandmother Paternal Grandfather Other Normal [facility] Office Visiton 04-20-2025 Follow-up visit [id number] Barber Liang E 1950 M Date Provider Department Center 04/20/2025 TONA FORTE RO [facility] Family History Problem Relation Age of [...] Paternal Grandmother Paternal Grandfather Other Level of Service:73647 MO OFFICE/OUTPATIENT ESTABLISHED LOW MDM 20 MIN Normal [facility] Cholesterol in LDL Calc [Mas s/Vol]on 04-15-2025 Cholesterol in LDL [Mass/Vol] 36.2 mg/dL [facility] Comment on above: <100 mg/dl [id number] 0-129 mg/dl NEAR OR ABOVE [id number] mg/dl BORDERLINE [id number] mg/dl HIGH>190 mg/dl VERY HIGH Cholesterol in VLDL Calc [Ma ss/Vol]on 04-15-2025 Cholesterol in VLDL [Mass/Vol] 15.8 mg/dL [facility] - Chemistry and C hemistry - challengeon 04-15-2025 ALT [Catalytic activity/Vol] 22 U/L 16-63 [facility] AST [Catalytic activity/Vol] 13 U/L Low 15-37 [facility] Cholesterol [Mass/Vol] 109 mg/dL <=200 [facility] Cholesterol in HDL [Mass/Vol] 57 mg/dL 40-60 [facility] Comment on above: > or =60 mg/dl - LOW CARDIOVASCULAR RISK<40 mg/dl - HIGH CARDIOVASCULAR RISK Triglyceride [Mass/Vol] 79 mg/dL <=150 [facility] Orders Onlyon 04-15-2025 Orders Only [id number] Barber Liang 1950 M Date Provider Department Center 04/15/2025 [id number] PEÑA RO [place] Family History Problem Relation Age [...] Grandfather Paternal Grandmother Paternal Grandfather Other Normal [facility] Serum or plasma total choles terol/high density lipoprotein (HDL) cholesterol mass [place] 04-15-2025 Cholesterol.total/C holesterol in HDL [Mass ratio] 1.9 {ratio} [facility] Comment on above: 3.3 - 4.4 LOW RISK4. 4 - 7.1 AVERAGE RISK7.1 - 11.0 MODERATE RISK>11.0 HIGH RISK 36on 12-24-2024 36 Regarding lab result s from 12/10/2024: MD Tarah Pandya MA Good lipids, continue current medications. Recheck lipids and AST ALT in 6-month. LM for patient. Told him we could order repeats labs at his next apt in 3 months (March) with Dr. Rosenberg. Asked him to call the office with any questions. Normal [facility] [place] [address] Ultrasound Report Signed Patient: GADIEL LIANG MR#: [id number] : 1950 Acct:[id number] Age/Sex: 74 / M ADM Date: 12/23/24 Loc: US Attending Dr: Henrry Johnson M.D. Ordering Physician: Henrry Johnson M.D. Date of Service: 12/23/24 Procedure(s): US thyroid Accession Number(s): [id number] cc: Joseluis Quiroz M.D.; Henrry Johnson M.D. [place] [id number] Patient Name: GADIEL LIANG MRN: [id number] date: 1950 Sex: M Assigned Patient Location: US Current Patient Location: US Accession/Order Number: [id number] Exam Date: 12/23/2024 12:20 Report Date: 12/23/2024 [...] Bilateral subcentimeter TR 4 nodules TI-RADS: The [employer] TI-RADS committee's white paper recommendations for thyroid lesions classified as TR4 (moderately suspicious) are listed below: > 1.0 cm. Follow-up ultrasound in 1, 2, 3, and 5 years. > 1.5 cm. FNA. J. Am Dionicio Radiol 2017;14:587-595. Electronically authenticated by: GEORGIE VIERA Date: 12/23/2024 13:12 Dictated By: Georgie Viera M.D. Signed By: 12/23/241314 DD/ 11 TD/TT: Billing Manager: [facility], Radiologi MD jake - 12/23/2024 [place] [address] Ultrasound Report Signed Patient: GADIEL LIANG MR#: [id number] : 1950 Acct:[id number] Age/Sex: 74 / M ADM Date: 12/23/24 Loc: US Attending Dr: Henrry Johnson M.D. Ordering Physician: Henrry Johnson M.D. Date of Service: 12/23/24 Procedure(s): US thyroid Accession Number(s): [id number] cc: Joseluis Quiroz M.D.; Henrry Johnson M.D. [address] [place] [id number] Patient Name: GADIEL LIANG MRN: [facility]:[id number] date: 1950 Sex: M Assigned Patient Location: US Current Patient Location: US Accession/Order Number: [id number] Exam Date: 12/23/2024 12:20 Report Date: 12/23/2024 [...] Bilateral subcentimeter TR 4 nodules TI-RADS: The [employer] TI-RADS committee's white paper recommendations for thyroid lesions classified as TR4 (moderately suspicious) are listed below: > 1.0 cm. Follow-up ultrasound in 1, 2, 3, and 5 years. > 1.5 cm. FNA. J. Am Dionicio Radiol 2017;14:587-595. Electronically authenticated by: GEORGIE VIERA Date: 12/23/2024 13:12 Dictated By: Georgie Viera M.D. Signed By: 12/23/241314 DD/ 11 TD/TT: Billing Manager: [facility] Radiology Study observation (narrative) [facility] US Thyroid glandOrdered By: Radiologist Radiology on 12-23-2024 [facility] [employer] Work Phone: Office Visiton 09-16-2024 Follow-up visit [id number] Barber Liang 1950 M Date Provider Department Center 09/16/2024 [id number] PEÑA [facility] Family History Problem Relation Age of Onset [...] Paternal Grandmother Paternal Grandfather Other Level of Service:19240 MO OFFICE/OUTPATIENT ESTABLISHED MOD MDM 30 MIN Reason for Visit and Comments: Atrial Fibrillation [80] - S/p afib ablation vasovagal syncope [Other] Transient Ischemic Attack [282741] - X2 Carotid stenosis, bilateral [Other] Hyperlipidemia [182] - HAD LABS 11/5/24 Chronic systolic congestive heart failure [Other] - Congestive heart failure due to NICM Heart failure is stable . NYHA Class II Normal [facility] CNPMirta 06-18-2024 RACHAELN Telephone (PULMMN) GADIEL LIANG ([id number]) 1950 M Date Time Provider Department 06/18/24 RICKEY OSBORNE During your visit today, we recorded the following information about you: Greg River 06/18/2024 4:24 PM Signed Received a mail from [facility] with a notice on the Authorization for MRI, Brain, W/O Contrast Dated: 06/04/24 Status: Approve Service Requested: MRI, Brain, W/O Contrast Effective Dates: 06/04/2024 - 09/01/2024 Reference #: [id number] Uploaded into scan docs. Please allow time [...] LANCETS) lancets Use as instructed - Insulin Weir, Disposable, (BD ULTRAFINE III MINI PEN) 31 [...] test [R94.39] 04/28/2015 Encounter Status:Closed by GREG RIVRE on 06/18/24 Normal [facility] Capillary blood glucose corey urement by glucometer (mass/volume)Ordered By: Merly Paul on 04-14-2024 Glucose [Mass/Vol] 73 mg/dL Normal [facility] Comment on above: Random Glucose Refer ence Range is dependent on time and content of last meal. Glucose of more than 200 mg/dL in a nonstressed, ambulatory subject supports the diagnosis of Diabetes Mellitus. Result Comment: Holly Glucose Reference Range is dependent on time and content of last meal. Glucose of more than 200 mg/dL in a nonstressed, ambulatory subject supports the diagnosis of Diabetes Mellitus. PERFORMED BY: [facility] [place] [address] PATHOLOGIST DECORATING MACHINE OPERATOR ANJANA SEWELL M.D. Performed By: #### G LULS #### Point of Care testing , [place] 04-14-2024 L Specimen: [id number] Received: 04/14/24 Status: MAYO Yuridia Num: [id number] Spec Type: Surgical Subm Dr: Merly Paul DO Tissues: A Colon Biopsy (CECAL POLYP) B Colon Biopsy (ASC POLYPS) C Colon Biopsy (TRANSV POLYP) D Colon Biopsy (DESC POLYP) Procedures: HE/8, Gross/Micro L4/4 Age/ Patient Sex Location Account Attending Physician Gadiel Liang 73/M [id number] Merly Paul DO SPEC NUM: [id number] RECD: 04/14/24 STATUS: MAYO ESCALANTEDevin NUM: [id number] DIONICIO: 04/14/24- DR: Merly Paul DO ENTERED: 04/14/[address] [facility] [address]: Joseluis Quiroz MD SPEC [...] biopsy: -Tubular adenoma Clinical Information Diarrhea, constipation Specimen: [id number] Received: 04/14/24 Status: MAYO Shi Num: [id number] Spec Type: Surgical Subm Dr: Merly Paul DO Tissues: A Colon Biopsy (CECAL POLYP) B Colon Biopsy (ASC POLYPS) C Colon Biopsy (TRANSV POLYP) D Colon Biopsy (DESC POLYP) Procedures: HE/Claribel, Gross/Micro L4/4 Patient: Gadiel Liang [id number] (Continued) Specimen: Received: 04/14/24 (Continued) Signed (signature on file) Ayush Jackson MD 04/16/24 1330 Specimen: Received: 04/14/24 Status: MAYO Shi Num: [id number] Spec Type: Surgical Subm Dr: Merly Paul, Tissues: A Colon Biopsy (CECAL POLYP) B Colon Biopsy (ASC POLYPS) C Colon Biopsy (TRANSV POLYP) D Colon Biopsy (DESC POLYP) Procedures: , Gross/Micro L4/4 Patient: Gadiel Liang [id number] (Continued) Specimen: [id number] Received: 04/14/24 (Continued) Gross Description Received are [...] mucosal tissue fragment, entirely submitted in D1. [facility] Codes 65721R7 Specimen: [id number] Received: 04/14/24 Status: MAYO Escalantedevin Num: [id number] Spec Type: Surgical Subm Dr: Merly Paul DO Tissues: A Colon Biopsy (CECAL POLYP) B Colon Biopsy (ASC POLYPS) C Colon Biopsy (TRANSV POLYP) D Colon Biopsy (DESC POLYP) Procedures: Rivas LOFTON/Andrew L4/4 Patient: Gadiel Liang [id number] (Continued) Signed (signature on file) Suki Jackson MD 04/16/24 7362 [facility] ECHOCARDIO M/2D COMPLETEon 0 02-28-2023 ECHOCARDIO M/2D COMPLETE Patient: GADIEL LIANG Exam Date: 02/28/2023 : 1950 Gender:M Ordering : TONA AmayaIgnacio ROSENBERG Admission #: [id number] Family : DR JOSELUIS QUIROZ M.D. Order #: [id number] CLICK HERE TO VIEW EXAM ECHOCARDIOGRAM REPORT [...] Left Atrium LA Volume Index (2D A2C): 66157 mm3 Left Atrium Systolic Dimension: 4.90 cm [...] Patten M.D. on 02/28/2023 at 20:13 Normal [facility] PROF 14(COMP METB)on 023 Albumin [Mass/Vol] 3.7 g/dL Normal 3.4-5.0 [facility] Comment on above: Performed By: #### C MP #### [facility] [address] [place] [address] Dr. Esme Jackson Albumin/Globulin [Mass ratio] 1.1 {ratio} Normal [facility] Comment on above: Performed By: #### C MP #### [facility] [address] [place] [address] [address] Esme Jackson ALP [Catalytic activity/Vol] 65 U/L Normal 46-116 [facility] Comment on above: Performed By: #### C MP #### [facility] [address] [place] [address] [address] Esme Jackson ALT [Catalytic activity/Vol] 26 U/L Normal 16-63 [facility] Comment on above: Performed By: #### C MP #### [facility] [address] [place] [address] [address] Esme Jackson Anion gap [Moles/Vol] 10.8 mmol/L Normal [facility] Comment on above: Performed By: #### C MP #### [facility] [address] [place] [address] [address] Esme Jackson AST [Catalytic activity/Vol] 16 U/L Normal 15-37 [facility] Comment on above: Performed By: #### C MP #### [facility] [address] [place] [address] [address] Esme Jackson Bilirubin [Mass/Vol] 1.1 mg/dL Critically high 0.2-1.0 [facility] Comment on above: Performed By: #### C MP #### [facility] [address] [place] [address] [address] Esme Jackson Calcium [Mass/Vol] 9.4 mg/dL Normal 8.5-10.1 [facility] Comment on above: Performed By: #### C MP #### [facility] [address] [place] [address] [address] Esme Jackson Chloride [Moles/Vol] 103 mmol/L Normal 98-107 [facility] Comment on above: Performed By: #### C MP #### [facility] [address] [place] [address] [address] Esme Jackson CO2 [Moles/Vol] 28.5 mmol/L Normal 21.0-32.0 [facility] Comment on above: Performed By: #### C MP #### [facility] [address] [place] [address] [address] Esme Jackson Creatinine [Mass/Vol] 1.07 mg/dL Normal 0.70-1.30 [facility] Comment on above: Performed By: #### C MP #### [facility] [address] [place] [address] [address] Esme Jackson EGFR-AF LIBERIAN >60 Normal >=60 [facility] Comment on above: Performed By: #### C MP #### [facility] [address] [place] [address] [address] Esme Jackson EGFR-NON AF LIBERIAN >60 Normal >=60 [facility] Comment on above: Performed By: #### C MP #### [facility] [address] [place] [address] [address] Esme Jackson Globulin (S) [Mass/Vol] 3.5 g/dL Normal [facility] Comment on above: Performed By: #### C MP #### [facility] [address] [place] [address] [address] Esme Jackson Glucose [Mass/Vol] 190 mg/dL Critically high 74-106 [facility] Comment on above: Performed By: #### C MP #### [facility] [address] [place] [address] Dr. Esme Jackson Potassium [Moles/Vol] 5.3 mmol/L Critically high 3.5-5.1 [facility] Comment on above: Performed By: #### C MP #### [facility] [address] [place] [address] Dr. Esme Jackson Protein [Mass/Vol] 7.2 g/dL Normal 6.4-8.2 [facility] Comment on above: Performed By: #### C MP #### [facility] [address] [place] [address] Dr. Esme Jackson Sodium [Moles/Vol] 137 mmol/L Normal 136-145 [facility] Comment on above: Performed By: #### C MP #### [facility] [address] [place] [address] Dr. Esme Jackson Urea nitrogen [Mass/Vol] 14.0 mg/dL Normal 7.0-18.0 [facility] Comment on above: Performed By: #### C MP #### [facility] [address] [place] [address] Dr. Esme Jackson Urea nitrogen/Creatinine [Mass ratio] 13.1 mg/mg Normal [facility] Comment on above: Performed By: #### C MP #### [facility] [address] [place] [address] Dr. Esme Jackson BNPon 11-10-2022 Natriuretic peptide B (Bld) [Mass/Vol] 6259.0 pg/mL Critically high <=900.0 [facility] Comment on above: Performed By: #### B BAR WAITER/WAITRESS, BMP, HSTROPN #### [facility] [address] [place] [address] Dr. Esme Jackson CBC AUTO DIFFon 11-10-2022 BASO # 0.0 103/ul Normal 0.0-0.1 [facility] Comment on above: Performed By: #### C BC #### [facility] [address] [place] [address] Dr. Esme Jackson Basophils/100 WBC (Bld) 0.5 % Normal 0.2-2.0 [facility] Comment on above: Performed By: #### C BC #### [facility] [address] [place] [address] Dr. Esme Jackson EO # 0.3 103/ul Normal 0.0-0.7 [facility] Comment on above: Performed By: #### C BC #### [facility] [address] [place] [address] Dr. Esme Jackson Eosinophils/100 WBC (Bld) 3.6 % Normal 0.9-7.0 [facility] Comment on above: Performed By: #### C BC #### [facility] [address] [place] [address] Dr. Esme Jackson Erythrocyte distribution width (RBC) [Ratio] 14.8 % Normal 11.0-15.0 [facility] Comment on above: Performed By: #### C BC #### [facility] [address] [place] [address] Dr. Esme Jackson Hematocrit (Bld) [Volume fraction] 36.9 % Critically low 42.0-54.0 [facility] Comment on above: Performed By: #### C BC #### [facility] [address] [place] [address] Dr. Esme Jackson Hemoglobin (Bld) [Mass/Vol] 12.0 g/dL Critically low 14.0-18.0 [facility] Comment on above: Performed By: #### C BC #### [facility] [address] [place] [address] [address] Esme Jackson IG # 0.04 10e3/ul Critically high 0.00-0.03 [facility] Comment on above: Performed By: #### C BC #### [facility] [address] [place] [address] [address] Esme Jackson IG % 0.5 % Normal 0.0-0.5 [facility] Comment on above: Performed By: #### C BC #### [facility] [address] [place] [address] Dr. Esme Jackson LYMPH # 1.3 103/ul Normal 1.2-3.8 [facility] Comment on above: Performed By: #### C BC #### [facility] [address] [place] [address] Dr. Esme Jackson Lymphocytes/100 WBC (Bld) 18.2 % Critically low 20.5-60.0 [facility] Comment on above: Performed By: #### C BC #### [facility] [address] [place] [address] Dr. Esme Jackson MANUAL DIFF REQ NO Normal [facility] Comment on above: Performed By: #### C BC #### [facility] [address] [place] [address] Dr. Esme Jackson MCH (RBC) [Entitic mass] 28.0 pg Normal 25.9-34.0 [facility] Comment on above: Performed By: #### C BC #### [facility] [address] [place] [address] Dr. Esme Jackson MCHC (RBC) [Mass/Vol] 32.5 g/dL Normal 29.9-35.2 [facility] Comment on above: Performed By: #### C BC #### [facility] [address] [place] [address] Dr. Esme Jackson MCV (RBC) [Entitic vol] 86.0 fL Normal 80.0-94.0 [facility] Comment on above: Performed By: #### C BC #### [facility] [address] [place] [address] Dr. Esme Jackson MONO # 0.5 103/ul Normal 0.3-0.8 [facility] Comment on above: Performed By: #### C BC #### [facility] [address] [place] [address] [address] Esme Jackson Monocytes/100 WBC (Bld) 7.3 % Normal 1.7-12.0 [facility] Comment on above: Performed By: #### C BC #### [facility] [address] [place] [address] Dr. Esme Jackson NEUT # 5.1 103/ul Normal 1.4-6.5 [facility] Comment on above: Performed By: #### C BC #### [facility] [address] [place] [address] Dr. Esme Jackson Neutrophils/100 WBC (Bld) 69.9 % Normal 43.0-75.0 [facility] Comment on above: Performed By: #### C BC #### [facility] [address] [place] [address] Dr. Esme Jackson Platelet mean volume (Bld) [Entitic vol] 10.3 fL Normal 9.5-13.5 [facility] Comment on above: Performed By: #### C BC #### [facility] [address] [place] [address] Dr. Esme Jackson PLT 220 103/ul Normal 150-450 [facility] Comment on above: Performed By: #### C BC #### [facility] [address] [place] [address] Dr. Esme Jackson RBC 4.29 106/ul Critically low 4.70-6.10 [facility] Comment on above: Performed By: #### C BC #### [facility] [address] [place] [address] Dr. Esme Jackson WBC 7.3 103/ul Normal 4.0-11.0 [facility] Comment on above: Performed By: #### C BC #### [facility] [address] [place] [address] Dr. Esme Jackson Covid-19 PCR (CVDTB)on 10-13 SARS-CoV-2 (COVID-19) RNA HANSA+probe Ql (Unsp spec) Not detected Normal NOT DETECTED [facility] Comment on above: Result Comment: [...] for this test is supported by the Topmost of Health and Human Service's declaration that [...] used). Performed By: #### C VDTB #### [facility] [address] [place] [address] Dr. Esme Jackson INFLUENZA A AND B AGon 11-10 INFLUANEGH SEE BELOW Normal [facility] Comment on above: Result Comment: Nega tive for Flu A protein angiten. Infection due to Flu A cannot be ruled out. Flu A angiten in the sample may be below the detection limit of the test. Performed By: #### F T4 #### [facility] [address] [place] [address] Dr. Esme Jackson INFLUBNEG SEE BELOW Normal [facility] Comment on above: Result Comment: Nega tive for Flu B protein antigen. Infection due to Flu B cannot be ruled out. Flu B antigen in the sample may be below the detection limit of the test. Performed By: #### F T4 #### [facility] [address] [place] [address] Dr. Esme Jackson INFLUENZA A AG Negative Normal NEGATIVE SEE COMMENT [facility] Comment on above: Performed By: #### F T4 #### [facility] [address] [place] [address] Dr. Esme Jackson INFLUENZA B AG Negative Normal NEGATIVE SEE COMMENT [facility] Comment on above: Performed By: #### F T4 #### [facility] [address] [place] [address] Dr. Esme Jackson PROF CHEM 8 (BAS METB)on Anion gap [Moles/Vol] 13.9 mmol/L Normal [facility] Comment on above: Performed By: #### B BAR WAITER/WAITRESS, BMP, HSTROPN #### [facility] [address] [place] [address] Dr. Esme Jackson Calcium [Mass/Vol] 8.7 mg/dL Normal 8.5-10.1 [facility] Comment on above: Performed By: #### B BAR WAITER/WAITRESS, BMP, HSTROPN #### [facility] [address] [place] [address] Dr. Esme Jackson Chloride [Moles/Vol] 104 mmol/L Normal 98-107 [facility] Comment on above: Performed By: #### B BAR WAITER/WAITRESS, BMP, HSTROPN #### [facility] [address] [place] [address] Dr. Esme Jackson CO2 [Moles/Vol] 25.2 mmol/L Normal 21.0-32.0 [facility] Comment on above: Performed By: #### B BAR WAITER/WAITRESS, BMP, HSTROPN #### [facility] [address] [place] [address] Dr. Esme Jackson Creatinine [Mass/Vol] 1.04 mg/dL Normal 0.70-1.30 [facility] Comment on above: Performed By: #### B BAR WAITER/WAITRESS, BMP, HSTROPN #### [facility] [address] [place] [address] Dr. Esme Jackson EGFR-AF LIBERIAN >60 Normal >=60 [facility] Comment on above: Performed By: #### B BAR WAITER/WAITRESS, BMP, HSTROPN #### [facility] [address] [place] [address] Dr. Esme Jackson EGFR-NON AF LIBERIAN >60 Normal >=60 [facility] Comment on above: Performed By: #### B BAR WAITER/WAITRESS, BMP, HSTROPN #### [facility] [address] [address] [address] Esme Jackson Glucose [Mass/Vol] 199 mg/dL Critically high 74-106 [facility] Comment on above: Performed By: #### B BAR WAITER/WAITRESS, BMP, HSTROPN #### [facility] [address] [address] [address] Esme Jackson Potassium [Moles/Vol] 4.1 mmol/L Normal 3.5-5.1 [facility] Comment on above: Performed By: #### B BAR WAITER/WAITRESS, BMP, HSTROPN #### [facility] [address] [place] [address] Dr. Esme Jackson Sodium [Moles/Vol] 139 mmol/L Normal 136-145 [facility] Comment on above: Performed By: #### B BAR WAITER/WAITRESS, BMP, HSTROPN #### [facility] [address] [place] [address] Dr. Esme Jackson Urea nitrogen [Mass/Vol] 18.0 mg/dL Normal 7.0-18.0 [facility] Comment on above: Performed By: #### B BAR WAITER/WAITRESS, BMP, HSTROPN #### [facility] [address] [place] [address] Dr. Esme Jackson Urea nitrogen/Creatinine [Mass ratio] 17.3 mg/mg Normal [facility] Comment on above: Performed By: #### B BAR WAITER/WAITRESS, BMP, HSTROPN #### [facility] [address] [place] [address] Dr. Esme Jackson TROPONIN, HIGH SENSITIVITYon 11-10-2022 HSTROP 35.5 pg/mL Normal 4.0-76.1 [facility] Comment on above: Result Comment: CUT- OFF POINTS HAVE BEEN ESTABLISHED BASED ON THE FOURTH UNIVERSAL DEFINITIONS OF MYOCARDIAL INFARCTION. THE UPPER REFERENCE LIMIT (URL) OF TROPONIN, DEFINED THE 99TH PERCENTILE OF cTnI DISTRIBUTION IN A REFERENCE POPULATION, HAS BEEN CONFIRMED THE DECISION THRESHOLD FOR [place] DIAGNOSIS. Performed By: #### B BAR WAITER/WAITRESS, BMP, HSTROPN #### [facility] [address] [address] [address] Esme Jackson XR CHEST 1 Von [...] RY [place] Date: 2022-11-10 09:24 Normal [facility] Covid-19 PCR (CVDTB)on SARS-CoV-2 (COVID-19) RNA HANSA+probe Ql (Unsp spec) Not detected Normal NOT DETECTED [facility] Comment on above: Result Comment: [...] for this test is supported by the Topmost of Health and Human Service's declaration that [...] used). Performed By: #### C VDTB #### [facility] [address] [address] [address] Esme Jackson INFLUENZA A AND B AGon 10-15 INFLUANEGH SEE BELOW Normal The [facility] Comment on above: Result Comment: Nega tive for Flu A protein angiten. Infection due to Flu A cannot be ruled out. Flu A angiten in the sample may be below the detection limit of the test. Performed By: #### F T4 #### [facility] [address] [place] [address] Dr. Esme Jackson INFLUBNEG SEE BELOW Normal [facility] Comment on above: Result Comment: Nega tive for Flu B protein antigen. Infection due to Flu B cannot be ruled out. Flu B antigen in the sample may be below the detection limit of the test. Performed By: #### F T4 #### [facility] [address] [place] [address] Dr. Esme Jackson INFLUENZA A AG Negative Normal NEGATIVE SEE COMMENT [facility] Comment on above: Performed By: #### F T4 #### [facility] [address] [place] [address] Dr. Esme Jackson INFLUENZA B AG Negative Normal NEGATIVE SEE COMMENT [facility] Comment on above: Performed By: #### F T4 #### [facility] [address] [place] [address] Dr. Esme Jackson INTERNAL CONTROLS Within Normal Limits Normal Wi thin Normal Limits [facility] Comment on above: Performed By: #### F T4 #### [facility] [address] [place] [address] Dr. Esme Jackson XR CHEST 2 Von [...] RAPHAEL NUNEZ Date: 2022-10-15 10:08 Normal [facility] Follow Up (Endocrinology)on 10-10-2022 Follow [...] insulin; CATIE = N; Verified Transmission to [id number]; Last Updated By: Anaplan; 10/10/2022 11:29:03 AM Albumin, Urine Spot; Status:Active; Requested for:10Oct2022; Perform:Lab Services - Lab To Draw (Non-Blood Test); Due:08Jan2023;Ordered; For:Central hypothyroidism, Hyperlipemia, Hypogonadism male, Pituitary macroadenoma, Thyroid nodule, Type 2 diabetes mellitus with other specified complication, with long-term current use of insulin; Ordered By:Manide Osborne; Brain Natriuretic Peptide BNP; Status:Active; Requested for:10Oct2022; Perform:Lab Services - Lab To Draw (Blood Test); Due:[id number];Ordered; For:Central hypothyroidism, Hyperlipemia, Hypogonadism male, Pituitary macroadenoma, Thyroid nodule, Type 2 diabetes mellitus with other specified complication, with long-term current use of insulin; Ordered By:Mandie Osborne; Complete Blood Count + Differential; Status:Active; Requested for:10Oct2022; Perform:Lab Services - Lab To Draw (Blood Test); Due:[id number];Ordered; For:Central hypothyroidism, Hyperlipemia, Hypogonadism male, Pituitary macroadenoma, [...] Services - Lab To Draw (Blood Test); Due:[id number];Ordered; For:Central hypothyroidism, Hyperlipemia, Hypogonadism male, Pituitary macroadenoma, Thyroid nodule, Type 2 diabetes mellitus with other specified complication, with long-term current use of insulin; Ordered By:Mandie Osborne; T4 - Free Thyroxine, Serum; Status:Active; Requested for:10Oct2022; Perform:Lab Services - Lab To Draw (Blood Test); Due:[id number];Ordered; For:Central hypothyroidism, Hyperlipemia, Hypogonadism male, Pituitary macroadenoma, Thyroid nodule, Type 2 (more content not included)... Normal [facility] CORTISOL Bri 06-25-2022 Cortisol AM 19.6 ug/dL Critically high 6.2-19.4 [facility] Comment on above: Performed By: #### C ORTAM #### [facility] [address] [address] [address] Esme Jackson MICROALBUMIN URINEon 022 Albumin, Urine 36.5 ug/mL Normal Not Estab. The [facility] Comment on above: Performed By: #### F T4 #### [facility] [address] [address] [address] Esme Jackson FREE T4on 06-22-2022 Free T4 [Mass/Vol] 1.22 ng/dL Normal 0.76-1.46 [facility] Comment on above: Performed By: #### F T4 #### [facility] [address] [address] [address] Esme Jackson GLYCOHEMOGLOBIN A1Con 2021 ADA RECOMMENDATION SEE BELOW Normal [facility] Comment on above: Result Comment: ADA RECOMMENDED LIMIT 4.0 - 6.0 ADA THERAPEUTIC TARGET < 7.0 ACTION SUGGESTED > 7.0 Performed By: #### F T4 #### [facility] [address] [address] [address] Esme Jackson Glucose [Mass/Vol] 194 mg/dL Normal [facility] Comment on above: Performed By: #### F T4 #### [facility] [address] [address] [address] Esme Jackson HbA1c (Bld) [Mass fraction] 8.4 % Critically high 4.5-6.2 [facility] Comment on above: Performed By: #### F T4 #### [facility] [address] [address] [address] Esme Jackson LIPID PROFILEon 06-22-2022 CHOL-HDL RATIO NORM SEE BELOW Normal [facility] Comment on above: Result Comment: 3.3 - 4.4 LOW RISK 4.4 - 7.1 AVERAGE RISK 7.1 - 11.0 MODERATE RISK >11.0 HIGH RISK Performed By: #### F T4 #### [facility] [address] [address] [address] Esme Jackson Cholesterol [Mass/Vol] 153 mg/dL Normal <=200 [facility] Comment on above: Performed By: #### F T4 #### [facility] [address] [address] [address] Esme Jackson Cholesterol in HDL [Mass/Vol] 55 mg/dL Normal 40-60 [facility] Comment on above: Performed By: #### F T4 #### [facility] [address] [address] [address] Esme Jackson Cholesterol in LDL [Mass/Vol] 82.2 mg/dL Normal [facility] Comment on above: Performed By: #### F T4 #### [facility] [address] [address] [address] Esme Jackson Cholesterol.total/C holesterol in HDL [Mass ratio] 2.8 {ratio} Normal [facility] Comment on above: Performed By: #### F T4 #### [facility] [address] [address] [address] Esme Jackson HDL NORMAL > or = 60 mg/dl - LO W CARDIOVASCULAR RISK <40 mg/dl - HIGH CARDIOVASCULAR RISK Normal [facility] Comment on above: Performed By: #### F T4 #### [facility] [address] [place] [address] Dr. Esme Jackson LDL CALC NORMAL SEE BELOW Normal [facility] Comment on above: Result Comment: <100 mg/dl OPTIMAL 100 - 129 mg/dl NEAR OR ABOVE OPTIMAL 130 - 159 mg/dl BORDERLINE HIGH 160 - 189 mg/dl HIGH >190 mg/dl VERY HIGH Performed By: #### F T4 #### [facility] [address] [address] [address] Esme Jackson Triglyceride [Mass/Vol] 79 mg/dL Normal <=150 [facility] Comment on above: Performed By: #### F T4 #### [facility] [address] [place] [address] Dr. Esme Jackson VLDL CALC 15.8 mg/dL Normal [facility] Comment on above: Performed By: #### F T4 #### [facility] [address] [place] [address] Dr. Esme Jackson PROF 14(COMP METB)on 022 Albumin [Mass/Vol] 3.9 g/dL Normal 3.4-5.0 [facility] Comment on above: Performed By: #### F T4 #### [facility] [address] [place] [address] Dr. Esme Jackson Albumin/Globulin [Mass ratio] 1.1 {ratio} Normal [facility] Comment on above: Performed By: #### F T4 #### [facility] [address] [place] [address] Dr. Esme Jackson ALP [Catalytic activity/Vol] 57 U/L Normal 46-116 [facility] Comment on above: Performed By: #### F T4 #### [facility] [address] [place] [address] Dr. Esme Jackson ALT [Catalytic activity/Vol] 22 U/L Normal 16-63 [facility] Comment on above: Performed By: #### F T4 #### [facility] [address] [place] [address] Dr. Esme Jackson Anion gap [Moles/Vol] 12.6 mmol/L Normal [facility] Comment on above: Performed By: #### F T4 #### [facility] [address] [address] [address] Esme Jackson AST [Catalytic activity/Vol] 18 U/L Normal 15-37 [facility] Comment on above: Performed By: #### F T4 #### [facility] [address] [address] [address] Esme Jackson Bilirubin [Mass/Vol] 1.1 mg/dL Critically high 0.2-1.0 [facility] Comment on above: Performed By: #### F T4 #### [facility] [address] [address] [address] Esme Jackson Calcium [Mass/Vol] 9.0 mg/dL Normal 8.5-10.1 [facility] Comment on above: Performed By: #### F T4 #### [facility] [address] [address] [address] Esme Jackson Chloride [Moles/Vol] 103 mmol/L Normal 98-107 [facility] Comment on above: Performed By: #### F T4 #### [facility] [address] [address] [address] Esme Jackson CO2 [Moles/Vol] 27.2 mmol/L Normal 21.0-32.0 [facility] Comment on above: Performed By: #### F T4 #### [facility] [address] [address] [address] Esme Jackson Creatinine [Mass/Vol] 0.90 mg/dL Normal 0.70-1.30 [facility] Comment on above: Performed By: #### F T4 #### [facility] [address] [address] [address] Esme Jackson EGFR-AF LIBERIAN >60 Normal >=60 [facility] Comment on above: Performed By: #### F T4 #### [facility] [address] [address] [address] Esme Jackson EGFR-NON AF LIBERIAN >60 Normal >=60 [facility] Comment on above: Performed By: #### F T4 #### [facility] [address] [address] [address] Esme Jackson Globulin (S) [Mass/Vol] 3.4 g/dL Normal [facility] Comment on above: Performed By: #### F T4 #### [facility] [address] [place] [address] Dr. Esme Jackson Glucose [Mass/Vol] 185 mg/dL Critically high 74-106 [facility] Comment on above: Performed By: #### F T4 #### [facility] [address] [place] [address] Dr. Esme Jackson Potassium [Moles/Vol] 3.8 mmol/L Normal 3.5-5.1 [facility] Comment on above: Performed By: #### F T4 #### [facility] [address] [place] [address] Dr. Esme Jackson Protein [Mass/Vol] 7.3 g/dL Normal 6.4-8.2 [facility] Comment on above: Performed By: #### F T4 #### [facility] [address] [place] [address] Dr. Esme Jackson Sodium [Moles/Vol] 139 mmol/L Normal 136-145 [facility] Comment on above: Performed By: #### F T4 #### [facility] [address] [place] [address] Dr. Esme Jackson Urea nitrogen [Mass/Vol] 12.0 mg/dL Normal 7.0-18.0 [facility] Comment on above: Performed By: #### F T4 #### [facility] [address] [place] [address] Dr. Esme Jackson Urea nitrogen/Creatinine [Mass ratio] 13.3 mg/mg Normal [facility] Comment on above: Performed By: #### F T4 #### [facility] [address] [place], [place] [id number] Dr. Esme Jackson US THYROIDon 06-22-2022 US THYROID EXAMINATION: US THYR OID HISTORY: Non-toxic uninodular goiter COMPARISON: 12/31/2020 TECHNIQUE: [...] nodules. 1 year follow-up recommended TI-RADS: The [employer] TI-RADS committee's white paper recommendations for thyroid lesions classified as TR5 (highly suspicious) are listed below: > 0.5 cm. Annual ultrasound follow-up for up to 5 years. > 1.0 cm. FNA. J. Am Dionicio Radiol 2017;14:587-595. Electronically authenticated by: GEORGIE VIERA Date: 2022-06-22 17:28 Normal [facility] Follow Up (Endocrinology)on 04-24-2022 Follow Up (Endocrinology) [...] For - Scheduling; Requested for:24Apr2022; Perform:[facility] Imaging; Due:23Jul2022;Ordered; For:Central hypothyroidism, [...] nodule; CATIE = N; Verified Transmission to [facility]; Last Updated By: Anaplan; 04/24/2022 10:33:22 AM Hypogonadism male, Pituitary macroadenoma Renew: Testosterone 50 MG/5GM (1%) Transdermal Gel; APPLY 1 PACKET ONE TIME DAILY DIRECTED Rx By: Mandie Osborne; Dispense: 0 Days ; #:90 X 5 GM Package; Refill: 1;For: Hypogonadism male, Pituitary macroadenoma; CATIE = N; Verified Transmission to [facility]; Last Updated By: [email or web address]; 04/24/2022 10:33:21 AM Pituitary macroadenoma Renew: Cabergoline 0.5 MG Oral Tablet; Take 1 tablet every other day Rx By: Mandie Osborne; Dispense: 80 Days ; #:40 Tablet; Refill: 3;For: Pituitary macroadenoma; CATIE = N; Verified Transmission to [facility]; Last Updated By: [email or web address]; 04/24/2022 10:33:26 AM Type 2 diabetes mellitus with other specified complication, with long-term current use of insulin Renew: Accu-Chek Alicia Plus In Vitro Strip; TEST TWICE DAILY Rx B (more content not included)... Normal [facility] Tobacco Screening.on 022 Adult depression screening assessment No [facility] [address] Work Phone: Fall risk assessment a) No falls within the last year [facility] [address] Work Phone: Tobacco use status [facility] b) No PZ[facility]awjjqgf[facility] [address] Work Phone: Vital Signs Date Time Vital Sign Value Performing Clinician Facility 05-24-2025 10:02-0400 Body height 176.53 cm Joseluis Quiroz MD Work Phone: [facility] 05-24-2025 10:02-0400 Body mass index (BMI) [Ratio] 27.9 kg/m2 Joseluis Quiroz MD Work Phone: [facility] 05-24-2025 10:02-0400 Body weight 87.08 kg Joseluis Quiroz MD Work Phone: [facility] 05-24-2025 10:02-0400 Diastolic blood pressure 62 mm[Hg] Joseluis Quiroz MD Work Phone: [facility] 05-24-2025 10:02-0400 Heart rate 68 /min Joseluis Quiroz MD Work Phone: [facility] 05-24-2025 10:02-0400 Respiratory rate 12 /min Joseluis Quiroz MD Work Phone: [facility] 05-24-2025 10:02-0400 SaO2% (BldA) [Mass fraction] 97 % Joseluis Quiroz MD Work Phone: [facility] 05-24-2025 10:02-0400 Systolic blood pressure 104 mm[Hg] Joseluis Quiroz MD Work Phone: [facility] 02-11-2025 13:12-0400 Body height 182.9 cm Ansley Chaves DO Work Phone: [facility] 02-11-2025 13:12-0400 Body mass index (BMI) [Ratio] 26.56 kg/m2 Ansley Chaves DO Work Phone: [facility] 02-11-2025 13:12-0400 Body weight 88.81 kg Ansley Chaves DO Work Phone: [facility] 12-29-2024 13:31-0500 Body height 182.9 cm Henrry Johnson MD Work Phone: [facility] 12-29-2024 13:31-0500 Body mass index (BMI) [Ratio] 26.72 kg/m2 Henrry Johnson MD Work Phone: [facility] 12-29-2024 13:31-0500 Body weight 89.36 kg Henrry Johnson MD Work Phone: [facility] 12-29-2024 13:31-0500 Diastolic blood pressure 59 mm[Hg] Henrry Johnson MD Work Phone: [facility] 12-29-2024 13:31-0500 Heart rate 77 /min Henrry Johnson MD Work Phone: [facility] 12-29-2024 13:31-0500 Systolic blood pressure 100 mm[Hg] Henrry Johnson MD Work Phone: [facility] 07-14-2024 11:22-0400 Body height 182.9 cm Henrry Johnson MD Work Phone: [facility] 07-14-2024 11:22-0400 Body mass index (BMI) [Ratio] 26.31 kg/m2 Henrry Johnson MD Work Phone: [facility] 07-14-2024 11:22-0400 Body weight 88 kg Henrry Johnson MD Work Phone: [facility] 07-14-2024 11:22-0400 Diastolic blood pressure 62 mm[Hg] Henrry Johnson MD Work Phone: [facility] 07-14-2024 11:22-0400 Systolic blood pressure 131 mm[Hg] Henrry Johnson MD Work Phone: [facility] 04-14-2024 12:35-0400 Diastolic blood pressure 63 mm[Hg] MD Joseluis Quiroz Work Phone: [facility] 04-14-2024 12:35-0400 Heart rate 54 /min MD Joseluis Quiroz Work Phone: [facility] 04-14-2024 12:35-0400 Respiratory rate 18 /min MD Joseluis Quiroz Work Phone: [facility] 04-14-2024 12:35-0400 SaO2% (BldA) [Mass fraction] 99 % MD Joseluis Quiroz Work Phone: [facility] 04-14-2024 12:35-0400 Systolic blood pressure 125 mm[Hg] MD Joseluis Quiroz Work Phone: [facility] 04-14-2024 11:02-0400 Body height 182.88 cm MD Joseluis Quiroz Work Phone: [facility] 04-14-2024 11:02-0400 Body weight 86.18 kg MD Joseluis Quiroz Work Phone: [facility] 03-18-2024 10:35-0400 Body height 182.88 cm MD Joseluis Quiroz Work Phone: [facility] 03-18-2024 10:35-0400 Body mass index (BMI) [Ratio] 25.7 kg/m2 MD Joseluis Quiroz Work Phone: [facility] 03-18-2024 10:35-0400 Body weight 86.18 kg MD Joseluis Quiroz Work Phone: [facility] 03-06-2024 10:52-0400 Body height 182.88 cm MD Joseluis Quiroz Work Phone: [facility] 03-06-2024 10:52-0400 Body mass index (BMI) [Ratio] 26.9 kg/m2 MD Joseluis Quiroz Work Phone: [facility] 03-06-2024 10:52-0400 Body temperature 99.2 [degF] MD Joseluis Quiroz Work Phone: [facility] 03-06-2024 10:52-0400 Body weight 89.98 kg MD Joseluis Quiroz Work Phone: [facility] 03-06-2024 10:52-0400 Diastolic blood pressure 60 mm[Hg] MD Joseluis Quiroz Work Phone: [facility] 03-06-2024 10:52-0400 Heart rate 69 /min MD Joseluis Quiroz Work Phone: [facility] 03-06-2024 10:52-0400 Respiratory rate 18 /min MD Joseluis Quiroz Work Phone: [facility] 03-06-2024 10:52-0400 SaO2% (BldA) [Mass fraction] 95 % MD Joseluis Quiroz Work Phone: [facility] 03-06-2024 10:52-0400 Systolic blood pressure 127 mm[Hg] MD Joseluis Quiroz Work Phone: [facility] 10-29-2023 13:30-0500 Body height 182.88 cm Joseluis Quiroz Other [facility] [email or web address] Other 10-29-2023 13:30-0500 Body mass index (BMI) [Ratio] 26.09 kg/m2 Joseluis Quiroz Other [facility] [email or web address] Other 10-29-2023 13:30-0500 Body weight 87.27 kg Joseluis Quiroz Other [facility] [email or web address] Other 10-29-2023 13:30-0500 Diastolic blood pressure 72 mm[Hg] Joseluis Quiroz Other [facility] [email or web address] Other 10-29-2023 13:30-0500 SaO2% (BldA) [Mass fraction] 93 % Joseluis Quiroz Other [employer] Other 10-29-2023 13:30-0500 Systolic blood pressure 130 mm[Hg] Joseluis Quiroz Other [employer] Other 08-19-2023 11:00-0400 Body height 182.88 cm Joseluis Quiroz Other [employer] Other 08-19-2023 11:00-0400 Body mass index (BMI) [Ratio] 25.36 kg/m2 Joseluis Quiroz Other [employer] Other 08-19-2023 11:00-0400 Body weight 84.82 kg Joseluis Quiroz Other [facility] Other 08-19-2023 11:00-0400 Diastolic blood pressure 61 mm[Hg] Joseluis Quiroz Other [employer] Other 08-19-2023 11:00-0400 Systolic blood pressure 126 mm[Hg] Joseluis Quiroz Other [employer] Other Encounters Encounter Date Encounter Type Care Provider Facility Start: 06-29-2025 End: 06-29-2025 Clinisync Result Encounter Henrry Johnson MD Work Phone: [facility] External Department Unsolicited Start: 06-29-2025 End: 06-29-2025 Clinisync Result Encounter Henrry Johnson MD Work Phone: [facility] Unsolicited Start: 05-24-2025 End: 05-24-2025 ambulatory Joseluis Quiroz MD Work Phone: [facility] Work Phone: Start: 05-24-2025 End: 05-24-2025 Patient encounter procedure Joseluis Quiroz MD -[facility] Work Phone: Start: 04-20-2025 End: 04-20-2025 ambulatory TONA [facility] Start: 04-15-2025 Non-patient / Non-visit Milan Peña MD -[facility] [employer] Work Phone: Start: 02-11-2025 End: 02-11-2025 Bamboo flowsheet Ansley [...] Not Available Start: 12-29-2024 End: 12-29-2024 Bamboo flowsheet Henrry Johnson MD Work Phone: [facility] Start: 12-29-2024 End: 12-29-2024 Bamboo flowsheet Henrry Johnson MD Work Phone: [...] Department Unsolicited Start: 09-16-2024 End: 09-16-2024 ambulatory [facility] Start: 07-14-2024 End: 07-14-2024 Bamboo flowsheet Henrry [...] Medicine Comment on above: Insurance Authorizat ion ([employer]) Start: 05-20-2024 Patient encounter procedure Joseluis Quiroz MD Work Phone: [facility] Start: 05-07-2024 End: 05-07-2024 Office outpatient visit 40 minutes Mandie Osborne MD Work Phone: [facility] Comment on above: Hypopituitarism (Mul ti) (Primary Dx); Hypogonadism male; Hyperparathyroidism (Multi); Hyperprolactinemia (Multi); Type 2 diabetes mellitus without complication, with long-term current use of insulin (Multi); Thyroid nodule Start: 04-14-2024 Non-patient / Non-visit MD Hiral Quiroz Work Phone: [facility] Work Phone: Start: 04-14-2024 End: 04-14-2024 Admission to same day surgery center MD Joseluis Quiroz Work Phone: [facility] Work Phone: Start: 04-14-2024 End: 04-14-2024 ambulatory MD Joseluis Quiroz Work Phone: [facility] Work Phone: Start: 03-23-2024 End: 03-23-2024 ambulatory RAPHAEL SPRINGER Not Available Start: 03-18-2024 End: 03-18-2024 Patient encounter procedure MD Joseluis Quiroz Work Phone: [facility] G[facility] Work Phone: Start: 03-06-2024 End: 03-06-2024 Patient encounter procedure MD Joseluis Quiroz Work Phone: [facility] Work Phone: Start: 12-23-2023 End: 12-23-2023 ambulatory Joseluis Quiroz Other [facility] Other Start: 12-23-2023 Telephone encounter Joseluis Quiroz [facility] Start: 10-29-2023 End: 10-29-2023 ambulatory Joseluis Quiroz Other [facility] Other Start: 10-29-2023 Office outpatient vi sit [address] [facility] Start: 10-16-2023 End: 10-16-2023 ambulatory Joseluis Quiroz Other [facility] Other Start: 10-16-2023 Telephone encounter Joseluis Quiroz [facility] Start: 09-13-2023 End: 09-13-2023 ambulatory Joseluis Quiroz Other [facility] Other Start: 09-13-2023 Telephone encounter Joseluis Quiroz [facility] Start: 09-10-2023 End: 09-10-2023 ambulatory Joseluis Quiroz Other [facility] Other Start: 09-10-2023 Telephone encounter Joseluis Quiroz [facility] Start: 08-19-2023 End: 08-19-2023 ambulatory Joseluis Quiroz Other [employer] Other Start: 08-19-2023 Office outpatient vi sit [address] [facility] Start: 07-31-2023 End: 07-31-2023 ambulatory Joseluis Quiroz Other [employer] Other Start: 07-31-2023 Telephone encounter Joseluis Quiroz [facility] Start: 05-29-2023 Rx Renewal Cabrera [place]ont Work Phone: [facility] [address] Work Phone: Start: 04-08-2023 Rx Renewal [facility]rera [address] Work Phone: [facility] [address] [place] Work Phone: Start: 02-28-2023 End: 03-01-2023 ambulatory TONA ROSENBERG Facility:H1 Start: 01-30-[address] JOSELUIS QUIROZ Facil ity:H1 Start: 01-22-2023 AUDIT Cabrera [address]ont Work Phone: [facility] Work Phone: Start: 01-22-2023 Rx Renewal [...] sit 25 minutes Cabrera [address]ont Work Phone: KX-Rsjaxvtksqccq-BZF [address] Work Phone: Start: 10-10-2022 ambulatory Referral Self Facility: [id number] Start: 09-28-2022 AUDIT Cabrera [address] Work Phone: ZE-Sbzlryvplsgvy-Mljfaem Work Phone: Start: 07-13-2022 Rx Renewal [address]rera [address] Work Phone: [facility] [address] [place] Work Phone: Start: 07-02-2022 Telephone encounter Mandie sun MD Work Phone: Endocrinology Comment on above: Received Outside [employer] Records (Received Thyroid US report from [facility]. Indexed into chart. ) Start: 06-22-2022 End: 06-23-[address] DOCTOR BUSBY Facility:H1 Start: 04-24-2022 Office outpatient vi sit 40 minutes [address] Work Phone: VJ-Ftsetdge-Bhfqqta [address] Work Phone: Start: 04-24-[address] Cabrera Dupont Facility:[id number] Start: 03-27-2022 AUDIT Cabrera [address]ont Work Phone: [facility] Work Phone: Start: 01-23-2022 KALPESH Dupont Work Phone: EQ-Isxjkyceyhtgp-Xfserdv Work Phone: Start: 12-11-2021 Rx Renewal Cabrera [address] Work Phone: [facility]zm[facility] Work Phone: Start: 11-08-2021 KALPESH [address]ont Work Phone: PJ-Rgpsxeryshmab-Sieawel Work Phone: Start: 08-21-2021 KALPESH [address]ont Work Phone: XF-Alnkoscbzrqix-BMV [address] Work Phone: Start: 05-31-2021 AUDIT Cabrera [address] Work Phone: ZE-Rianupkhaowzl-FAQ [place] [address] Work Phone: Start: 06-20-2017 End: 06-21-2017 Ambulatory DEFAULT PHYSICIAN Facility:[facility] [facility] Procedures Date Procedure Procedure Detail Performing Clinician Start: 06-29-2025 Us soft tissue head & neck real time imge docankit Johnson MD Work Phone: Start: 12-23-2024 Us soft tissue head & neck real time imge docankit Johnson MD Work Phone: Start: 04-14-2024 End: 04-14-2024 Colonoscopy MD Joseluis Quiroz Work Phone: Start: 08-24-2016 Lipid 1996 panel - S jaz or Plasma Rickey Osborne MD Work Phone: Appendectomy [facility] Work Phone: Arthroscopy of knee [facility] Work Phone: Parathyroidectomy [facility] Work Phone: Vasectomy [facility] Work Phone: Plan of Treatment Date Care Activity Detail Author Start: 04-14-2034 Screening for malignant neoplasm of colon [facility] Start: 07-12-2025 Influenza vaccination Influenza Vaccine (#1) [facility] Start: 07-06-2025 End: 07-06-2025 Patient encounter procedure [facility] Start: 02-11-2025 End: 02-11-2025 Patient encounter procedure 02/11/2025 1:15 PM EDT Office Visit [facility] [address] [place] [address] Ansley Chaves DO [address] [place], [place] [id number] Primary osteoarthritis of right hip (Primary Dx) [facility] Comment on above: Primary osteoarthritis of right hip (Jocelynn mary ann Dx) Start: 12-29-2024 End: 12-29-2024 Patient encounter procedure 12/29/2024 1:30 PM EST Office Visit [facility] [address] [place] [address] Henrry Johnson MD [address] [place] [address] [facility] Start: 07-14-2024 End: 07-14-2024 Patient encounter procedure 07/14/2024 11:30 AM EDT Office Visit [facility] [address] [place] [address] Henrry Johnson MD [address] [place] [address] Arrived [facility] Comment on above: Arrived Start: 07-12-2024 Influenza vaccination [facility] Start: 05-07-2024 End: 05-07-2025 Comprehensive metabolic 2000 panel - Serum or Plasma Comprehensive Metabolic Panel Lab Routine Hypopituitarism (Multi) Hypogonadism male Hyperparathyroidism (Multi) Hyperprolactinemia (Multi) Type 2 diabetes mellitus without complication, with long-term current use of insulin (Multi) Expected: 05/07/2024 (Approximate), Expires: 05/07/2025 [facility] Work Phone: Comment on above: Expected: 05/07/2024 (Approximate), Expi res: 05/07/2025 Start: 05-07-2024 End: 05-07-2025 Cortisol [Mass/volume] in Serum or Plasma Cortisol Lab Routine Hypopituitarism (Multi) Hypogonadism male Hyperparathyroidism (Multi) Hyperprolactinemia (Multi) Type 2 diabetes mellitus without complication, with long-term current use of insulin (Multi) Expected: 05/07/2024 (Approximate), Expires: 05/07/2025 [facility] Service Area Work Phone: Comment on above: Expected: 05/07/2024 (Approximate), Expi res: 05/07/2025 Start: 05-07-2024 End: 05-07-2025 Hemoglobin A1c/Hemoglobin.total in Blood Hemoglobin A1C Lab Routine Hypopituitarism (Multi) Hypogonadism male Hyperparathyroidism (Multi) Hyperprolactinemia (Multi) Type 2 diabetes mellitus without complication, with long-term current use of insulin (Multi) Expected: 05/07/2024 (Approximate), Expires: 05/07/2025 [facility] Work Phone: Comment on above: Expected: 05/07/2024 (Approximate), Expi res: 05/07/2025 Start: 05-07-2024 End: 05-07-2025 Lipid 1996 panel - Serum or Plasma Lipid Panel Lab Routine Hypopituitarism (Multi) Hypogonadism male Hyperparathyroidism (Multi) Hyperprolactinemia (Multi) Type 2 diabetes mellitus without complication, with long-term current use of insulin (Multi) Expected: 05/07/2024 (Approximate), Expires: 05/07/2025 [facility] Work Phone: Comment on above: Expected: 05/07/2024 (Approximate), Expi res: 05/07/2025 Start: 05-07-2024 End: 05-07-2025 Microalbumin/Creatinine [Mass Ratio] in Urine Albumin-Creatinine Ratio, Urine Random Lab Routine Hypopituitarism (Multi) Hypogonadism male Hyperparathyroidism (Multi) Hyperprolactinemia (Multi) Type 2 diabetes mellitus without complication, with long-term current use of insulin (Multi) Expected: 05/07/2024 (Approximate), Expires: 05/07/2025 [facility] Work Phone: Comment on above: Expected: 05/07/2024 (Approximate), Expi res: 05/07/2025 Start: 05-07-2024 End: 05-07-2025 MR Pituitary and Sella turcica WO and W contrast IV MR sella w and wo IV contrast Imaging Routine Hypopituitarism (Multi) Hypogonadism male Hyperparathyroidism (Multi) Hyperprolactinemia (Multi) Type 2 diabetes mellitus without complication, with long-term current use of insulin (Multi) Thyroid nodule Expected: 05/07/2024, Expires: 05/07/2025 [facility] Work Phone: Comment on above: Expected: 05/07/2024, Expires: Start: 05-07-2024 End: 05-07-2025 Parathyrin.intact [Mass/volume] in Serum or Plasma Parathyroid Hormone, Intact Lab Routine Hypopituitarism (Multi) Hypogonadism male Hyperparathyroidism (Multi) Hyperprolactinemia (Multi) Type 2 diabetes mellitus without complication, with long-term current use of insulin (Multi) Thyroid nodule Expected: 05/07/2024 (Approximate), Expires: 05/07/2025 [facility] Work Phone: Comment on above: Expected: 05/07/2024 (Approximate), Expi res: 05/07/2025 Start: 05-07-2024 End: 05-07-2025 Prolactin [Mass/volume] in Serum or Plasma Prolactin Lab Routine Hypopituitarism (Multi) Hypogonadism male Hyperparathyroidism (Multi) Hyperprolactinemia (Multi) Type 2 diabetes mellitus without complication, with long-term current use of insulin (Multi) Expected: 05/07/2024 (Approximate), Expires: 05/07/2025 [facility] Work Phone: Comment on above: Expected: 05/07/2024 (Approximate), Expi res: 05/07/2025 Start: 05-07-2024 End: 05-07-2025 Testosterone,Free and Total Testosterone,Free and Total Lab Routine Hypopituitarism (Multi) Hypogonadism male Hyperparathyroidism (Multi) Hyperprolactinemia (Multi) Type 2 diabetes mellitus without complication, with long-term current use of insulin (Multi) Expected: 05/07/2024 (Approximate), Expires: 05/07/2025 [facility] Work Phone: Comment on above: Expected: 05/07/2024 (Approximate), Expi res: 05/07/2025 Start: 05-07-2024 End: 05-07-2025 Thyroxine (T4) free [Mass/volume] in Serum or Plasma Thyroxine, Free Lab Routine Hypopituitarism (Multi) Hypogonadism male Hyperparathyroidism (Multi) Hyperprolactinemia (Multi) Type 2 diabetes mellitus without complication, with long-term current use of insulin (Multi) Expected: 05/07/2024 (Approximate), Expires: 05/07/2025 [facility] Work Phone: Comment on above: Expected: 05/07/2024 (Approximate), Expi res: 05/07/2025 Start: 04-14-2024 [facility] Start: 11-11-2023 Advance Directive Discussion Advance Directive Discussion [facility] Start: 07-12-2023 Covid-19 Vaccine ( season) Covid-19 Vaccine () [facility] Start: 10-10-2022 VIRKEENA, Provider: Manide Osborne, Status: Pen, Time: 11:15 AM AMY, Provider: Mandie Osborne, Status: Pen, Time: 11:15 AM [id number]-F [facility] Work Phone: Start: 07-12-2022 Influenza vaccination INFLUENZA (#1) [facility] Start: 04-24-2022 AMY, Provider: Ynes Sahni, Status: Pen, Time: 1:00 PM AMY, Provider: Ynes Sahni, Status: Pen, Time: 1:00 PM CU-Rwrcyqofcekhh-L [facility] Work Phone: Start: 01-21-2022 Diabetes Screening Diabetes Screening [facility] Start: 11-11-2021 ADVANCE DIRECTIVE DISCUSSION ADVANCE DIRECTIVE DISCUSSION [facility] Start: 08-24-2021 Lipid panel Lipid Screening [facility] Start: 07-24-2019 Hemoglobin A1c/Hemoglobin.total in Blood HBA1C [facility] Start: 08-12-2018 Pneumococcal Vaccine: 65+ (2 of 2 - PCV) Pneumococcal Vaccine: 65+ (2 of 2 - PCV) [facility] Start: 08-12-2018 Pneumococcal Vaccine: 65+ Years (2 of 2 - PCV) Pneumococcal Vaccine: 65+ Years (2 of 2 - PCV) [facility] Start: 10-07-2017 Shingrix Vaccine (3 of 3) Shingrix Vaccine (3 of 3) [facility] Start: 08-24-2017 Hepatitis B screening URINE ALBUMIN:CREATININE RATIO [facility] Start: 08-24-2017 Hepatitis B surface antibody level LDL CHOLESTEROL [facility] Start: 08-14-2017 3 comp foot exam completed DIABETIC FOOT EXAM [facility] Start: 11-22-2016 Hepatitis C antibody, confirmatory test DILATED RETINAL EXAM [facility] Start: 2016 PNEUMOCOCCAL: 65+ (1 - PCV) PNEUMOCOCCAL: 65+ (1 - PCV) [facility] Start: 2011 RSV patients and/or patients aged 60+ years (1 - 1-dose 60+ series) RSV patients and/or patients aged 60+ years (1 - 1-dose 60+ series) [facility] Start: 2011 RSV Vaccine (1 - 1-dose 60+ series) RSV Vaccine (1 - 1-dose 60+ series) [facility] Start: 2001 SHINGRIX VACCINE (1 of 2) SHINGRIX VACCINE (1 of 2) [facility] Start: 2001 Zoster Vaccines (1 of 2) Zoster Vaccines (1 of 2) [facility] Start: 1996 COLOGUARD (FIT-DNA) COLOGUARD (FIT-DNA) [facility] Start: 1996 Colonoscopy COLONOSCOPY [facility] Start: 1996 COLORECTAL CANCER SCREENING COLORECTAL CANCER SCREENING [facility] Start: [address] COLONOGRAPHY [facility] Start: 1996 FECAL OCCULT BLOOD FECAL OCCULT BLOOD [facility] Start: 1996 Screening for malignant neoplasm of colon [facility] Start: 1996 SIGMOIDOSCOPY SIGMOIDOSCOPY [facility] Start: 1973 DTaP/Tdap/Td Vaccines (1 - Tdap) DTaP/Tdap/Td Vaccines (1 - Tdap) [facility] Start: 1970 Urine microalbumin profile [facility] Start: 1970 Urine screening for protein Diabetes: Urine Protein Screening [facility] Start: 1969 Anxiety Screening Anxiety Screening [facility] Start: 1969 Depression Screening Depression Screening [facility] Start: 1969 HEPATITIS C SCREENING HEPATITIS C SCREENING [facility] Start: 1969 Hepatitis C screening Hepatitis C Screening [facility] Start: 1963 Adult depression screening assessment DEPRESSION SCREENING [facility] Start: 1961 Diabetic foot examination Diabetes: Foot Exam [facility] Start: 1961 Glaucoma screening Diabetes: Retinopathy Screening [facility] Start: 1957 Pneumococcal Vaccine: 65+ Years (1 of 2 - PCV) Pneumococcal Vaccine: 65+ Years (1 of 2 - PCV) [facility] Start: 02-08-1952 COVID-19 VACCINE (#1) COVID-19 VACCINE (#1) [facility] Start: 1951 ABDOMINAL AORTIC ANEURYSM SCREENING ABDOMINAL AORTIC ANEURYSM SCREENING [facility] Start: 1951 Abdominal aortic aneurysm screening Abdominal Aortic Aneurysm Screening [facility] Start: 1951 Hemoglobin A1c measurement Diabetes: Hemoglobin A1C [facility] Start: 1951 Lipid panel Lipid Panel [facility] Start: 1951 Medicare Annual Wellness Visit Medicare Annual Wellness Visit (AWV) [facility] Start: 1951 Screening for malignant neoplasm of colon [facility] Start: 1951 Thyroid stimulating hormone measurement TSH Level [facility] Comprehensive metabo lic 2000 panel - Serum or Plasma [facility] Patient Education Colon polyps D iverticulosis (DC) [facility] Work Phone: US Thyroid gland US thyroid Imag ing Routine Hypopituitarism (Multi) Hypogonadism male Hyperparathyroidism (Multi) Hyperprolactinemia (Multi) Type 2 diabetes mellitus without complication, with long-term current use of insulin (Multi) Thyroid nodule Ordered: 05/07/2024 [facility] Work Phone: Comment on above: Ordered: 05/07/2024 XR Abdomen Single view [facility] Immunizations Immunization Date Immunization Notes Care Provider Fa cili 08-21-2024 influenza virus vacc ine, unspecified formulation Henrry Johnson MD Work Phone: [facility] 10-12-2023 Influenza vaccine, quadrivalent, adjuvanted Joseluis Quiroz MD Work Phone: [facility] 10-12-2023 influenza virus vacc ine, unspecified formulation Henrry Johnson MD Work Phone: [facility] 08-15-2022 Fluzone High-Dose Quadrivalent 0.7 ML Intramuscular Suspension Prefilled Syringe [facility] Work Phone: [facility] 09-06-2021 Fluad Quadrivalent 0 .5 ML Intramuscular Prefilled Syringe [facility] Work Phone: [facility] 01-18-2021 Neva COVID-19 Vac cine 0.5 ML Intramuscular Suspension [facility] Work Phone: [facility] 09-08-2020 Fluad Quadrivalent 0 .5 ML Intramuscular Prefilled Syringe [facility] Work Phone: [facility] 08-24-2020 influenza, seasonal, injectable [facility] Work Phone: [facility] 08-24-2019 Seasonal trivalent influenza vaccine, adjuvanted, preservative free [facility] Work Phone: [facility] 08-04-2018 influenza, injectabl e, quadrivalent, preservative free [facility] Work Phone: [facility] 08-04-2018 influenza virus vacc ine, unspecified formulation Rickey Osborne MD Work Phone: [facility] 07-19-2018 influenza, high dose seasonal, preservative-free [facility] Work Phone: [facility] 08-21-2017 influenza, high dose seasonal, preservative-free [facility] Work Phone: [facility] 08-12-2017 pneumococcal polysaccharide vaccine, 23 valent [facility] Work Phone: [facility] 08-12-2017 zoster vaccine recombinant [facility] Work Phone: [facility] 08-21-2016 influenza, high dose seasonal, preservative-free [facility] Work Phone: [facility] 2015 influenza, seasonal, injectable, preservative free [facility] Work Phone: [facility] 08-04-2014 influenza, seasonal, injectable [facility] Work Phone: [facility] 08-04-2014 pneumococcal polysaccharide vaccine, 23 valent [facility] Work Phone: [facility] 08-04-2014 zoster vaccine, live [facility] Work Phone: [facility] Payers Date Payer Category Payer Self-pay [id number] 2023 Medicare (Managed Care) [employer] [id number] 2018 Medicare [id number] 2013 Unknown 1959 Self-pay [id number] 1959 Unknown [id number] 1951 Unknown [id number] [id number]. 2.356 1951 Unknown [id number] 2.840.1.294832.3.579. 2.356 1951 Unknown [id number] 2.16.840.1.272912.3.579. 2.593 1951 Unknown [id number] 2.840.1.241945.3.579. 2.593 1951 Unknown [id number] 2.16.840.1.702390.3.579. 2.593 1951 Unknown [id number] 2.16.840.1.023165.3.579. 2.593 1951 Unknown [id number] 2.16.840.1.666696.3.579. 2.593 1951 Unknown [id number] 2.16.840.1.005562.3.579. 2.593 1951 Unknown [id number] 2.16.840.1.257738.3.579. 2.593 1951 Unknown [id number] 2.16.840.1.035304.3.579. 2.1259 1951 Unknown [id number] 2.16.840.1.950051.3.579. 2.1259 1951 Unknown [id number] 2.16.840.1.760666.3.579. 2.1259 1951 Unknown [id number] 2.16.840.1.386845.3.579. 2.1259 1951 Unknown [id number] 2.16.840.1.733460.3.579. 2.1259 1951 Unknown [id number] 2.16.840.1.543607.3.579. 2.1259 Unknown [id number] 2.16.840.1.655494.3.579. 2.593 Unknown [facility] [id number] Unknown [id number] [id number]. 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 (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) [facility] Start: 1950 Sex Assigned At Not on file [facility] Start: 01-21-2019 End: 02-11-2025 Sex Assigned At [facility] Start: 1950 Sex Assigned At Male F [facility] National Score (1-100), lower number is lower risk Not on file [facility] Tobacco smoking status WIIS Tobacco smoking consumption unknown [facility] Work Phone: Start: 07-14-2024 End: 02-11-2025 Alcoholic beverage intake Lifetime non-drinker (finding) [facility] Sex Male (finding) [facility] Medical Equipment Procedure Code Equipment Code Equipment Original Text Equipment Identifier Dates [id number], [id number], [id number] Start: 09-15-2018 Comment on above: Use as instructed USE WITH INSULIN PEN S three times a day Pen Needle, Diabetic (Bd Ultra-Fine Mini Pen Needle) 31 gauge x 3/16 needle Start: 01-07-2024 Pen Needle, Diabetic (Bd Ultra-Fine Mini Pen Needle) 31 gauge x 3/16 needle Start: 11-30-2024 Pen Needle, Diabetic (Bd Ultra-Fine Mini Pen Needle) 31 gauge x 3/16 needle Start: 01-07-2024 End: 11-30-2024 Goals Date Patient Goal Desired Activity /State Clinical Notes 04-24-2022 to 04-20-2025 Angela Cortez - 02/11/2025 1:15 PM Salome Johnson MD - 12/29/2024 1:30 PM Miguel Johnson MD - 07/14/2024 11:30 AM EDTTelephone Encounter - Greg River - 06/18/2024 4:18 PM EDT Note Date & Type Note Facility 04-20-2025 Note [place] Electrophysiology Consult Note [facility] Reason for Consultation: Atrial fibrillation, s/p PVI/CTI 04/202304/20/2025 Patient is here today for a 6 month follow up. Patient states he has SOB, MANNING, fatigue. Review of Systems Constitutional: Positive for malaise/fatigue. Cardiovascular: Positive for dyspnea on exertion. Respiratory: Positive for shortness of breath. EKG 04/20/25 sinus rhythm with PAC 07/30/2023 Prior HPI: Patient here for 3 month follow-up [...] SR. Prior HPI: Gadiel Liang is a 74 y.o. 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 Gadiel is here regarding feeling lightheaded with palpitations on 10/15 and he went to the [facility] emergency department was found to [...] Determinants of Health Tobacco Use: Medium Risk (04/20/2025) Patient History Smoking Tobacco Use: Former Smokeless Tobacco Use: Never Passive Exposure: Not on file Alcohol Use: Not At Risk (12/24/2019) [facility] AUDIT-C Frequency of Alcohol Consumption: Never Average Number of Drinks: Not on file Frequency of Binge Drinking: Not on file Financial Resource Strain: Low Risk (05/02/2023) Overall Financial Resource Strain (CARDIA) Difficulty of Paying Living Expenses: Not hard at all Food Insecurity: No Food Insecurity (05/02/2023) Hunger Vital Sign Worried About Running Out of Food in the Last Year: Never true Ran Out of Food in the Last Year: Not on file Transportation Needs: No Transportation Needs (05/02/2023) Transportation Lack of Transportation (Medical): No Lack of Transportation (Non-Medical): Not on file Physical Activity: Not on file Stress: Not on file Social Connections: Not on file Intimate Partner Violence: Unknown (05/05/2024) [place] Safety & Environment Fear of Current or Ex-Partner: Not on file Emotionally Abused: Not on file Physically Abused: Not on file Sexually Abused: Not on file Physically or Sexually Abused: Not on file Depression: Not on file Housing Stability: Low Risk (05/02/2023) Housing Stability Vital Sign Unable to Pay for Housing in the Last Year: Not on file Number of Places Lived in the Last Year: Not on file Unstable Housing in the Last Year: No Utilities: Not on file Health Literacy: Not on file Allergies: Allergies Allergen Reactions No Known Allergies Weight: No results found for: PTWEIGHT Meds: Current Outpatient Medications on File Prior to Visit Me (more content not included)... [facility] 02-11-2025 History of Present illness Narrative Images from the original note were not included. Gadiel Liang is a 74 y.o. male presents with [...] and 2012 tendon repair THYROID 2009 VASECTOMY FAMILY HISTORY: [...] 12:10 PM EDT documented in this encounter [facility] 12-29-2024 History of Present illness Narrative Subjective Patient ID: Alexis Liang is a 74 y.o. male who presents for Thyroid Nodule (5 month ultrasound [facility] 12/23/24) Thyroid US shows a 4mm RT and 9mm LT nodule, compared to an 8mm RT nodule 6 mo ago. Family History Problem Relation Name Age of Onset Diabetes type II Mother Active Ambulatory Problems Diagnosis Date Noted Alzheimer's disease with late onset ([facility]) 06/27/2024 Dementia in other diseases classified elsewhere, unspecified severity, without behavioral disturbance, psychotic disturbance, mood disturbance, and anxiety ([facility]) 06/27/2024 History of ischemic stroke 06/27/2024 Personality change 06/27/2024 Pituitary mass ([facility]) 06/27/2024 Depression ([facility]) 06/27/2024 Memory impairment 06/27/2024 Abnormal stress test 04/28/2015 Acquired hypothyroidism ([facility]) 07/09/2024 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 Atrial flutter ([facility]) 11/28/2022 Carotid stenosis, bilateral 04/01/2024 Chronic systolic heart failure ([facility]) 11/15/2022 Constipation 07/09/2024 CVA (cerebral vascular accident) ([facility]) 10/26/2022 Diverticulosis of colon 07/09/2024 History of transient ischemic attack (TIA) 10/26/2022 Hypercalcemia 12/23/2012 Hyperlipidemia ([facility]) 07/09/2024 Hypertension ([facility]) 07/09/2024 Hypogonadism male 12/23/2012 Incontinence of feces with fecal urgency 07/09/2024 Paroxysmal atrial fibrillation ([facility]) 10/18/2022 Persistent atrial fibrillation (HCC) ([facility]) 10/16/2022 PFO (patent foramen ovale) 11/28/2022 Primary hyperparathyroidism ([facility]) 12/24/2019 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[facility]) 11/16/2009 Pure hypercholesterolemia ([facility]) 07/09/2024 Thyroid nodule ([facility]) 11/16/2009 Type 2 diabetes mellitus with hyperglycemia ([facility]) 07/09/2024 Coronary artery disease involving [place] coronary artery of [place] heart without angina pectoris ([facility]) 09/16/2024 Diabetes mellitus due to underlying condition with diabetic cataract ([facility]) 09/16/2024 Nonischemic cardiomyopathy ([facility]) 09/16/2024 Overweight (BMI 25.0-29.9) 12/29/2024 Type 2 diabetes mellitus without complication ([facility]) 09/24/2012 Vasovagal syncope 10/26/2022 Resolved Ambulatory Problems Diagnosis Date Noted Diarrhea 07/09/2024 Dietary counseling and surveillance 07/09/2024 Rotator cuff strain 06/16/2013 S/P ablation of atrial fibrillation 05/02/2023 Past Medical History: Diagnosis Date Afib ([facility]) CHF (congestive heart failure) ([facility] [place]) Diabetes mellitus type II, controlled ([facility] [place] GERD (gastroesophageal reflux disease) Hypercholesterolemia ([facility] [place]) Hypogonadism in male Hypothyroid ([facility] [place]) Stroke ([facility] [place] 2016 Past Surgical History: Procedure Laterality Date CARDIAC ELECTROPHYSIOLOGY MAPPING AND ABLATION CARPAL TUNNEL RELEASE Right 2015 CT ANGIOGRAM HEART CORONARY 04/26/2023 CT ANGIOGRAM TAVR 04/26/2023 PARATHYROIDECTOMY 12/2019 SHOULDER SURGERY Right 2010 and 2013 tendon repair THYROID 2009 VASECTOMY No Known [...] annually if stable documented in this encounter [facility] 09-16-2024 Note [place] - [facility] Subjective Gadiel Liang is a 74 y.o. year old male [...] in the mor (more content not included)... [facility] 07-14-2024 History of Present illness Narrative Subjective Patient ID: Alexis Liang is a 73 y.o. male who presents for Thyroid Nodule (Ultrasound 06/09/24. ) Pt has a long h/o thyroid nodules and a remote h/o parathyroidectomy. H/O prolactinoma tx medically. 05/3024 thyroid US shows a [id number] RT TR5 nodule. 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 Review of Systems All other systems reviewed and are negative. Family History Problem Relation Name Age of Onset Diabetes type II Mother Active Ambulatory Problems Diagnosis Date Noted Alzheimer's disease with late onset ([facility]/H[facility]) 06/27/2024 Dementia in other diseases classified elsewhere, unspecified severity, without behavioral disturbance, psychotic disturbance, mood disturbance, and anxiety (CMS/HCC) 06/27/2024 History of ischemic stroke 06/27/2024 Personality change 06/27/2024 Pituitary mass (CMS/HCC) 06/27/2024 Depression (CMS/HCC) 06/27/2024 Memory impairment 06/27/2024 Abnormal stress test 04/28/2015 Acquired hypothyroidism (CMS/HCC) 07/09/2024 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CMS/HCC) 02/23/2015 Atrial flutter (CMS/HCC) 11/28/2022 Carotid stenosis, bilateral 04/01/2024 Chronic systolic heart failure ([facility] [place]) 11/15/2022 Constipation 07/09/2024 CVA (cerebral vascular accident) ([facility] [place]) 10/26/2022 Diverticulosis of colon 07/09/2024 History of transient ischemic attack (TIA) 10/26/2022 Hypercalcemia 12/23/2012 Hyperlipidemia ([facility] [place]) 07/09/2024 Hypertension ([facility] [place]) 07/09/2024 Hypogonadism male 12/23/2012 Incontinence of feces with fecal urgency 07/09/2024 Paroxysmal atrial fibrillation ([facility] [place]) 10/18/2022 Persistent atrial fibrillation (HCC) ([facility] [place]) 10/16/2022 PFO (patent foramen ovale) 11/28/2022 Primary hyperparathyroidism ([facility] [place]) 12/24/2019 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[facility] [place]) 11/16/2009 Pure hypercholesterolemia ([facility] [place]) 07/09/2024 Thyroid nodule ([facility] [place]) 11/16/2009 Type 2 diabetes mellitus with hyperglycemia ([facility]) 07/09/2024 Resolved Ambulatory Problems Diagnosis Date Noted Diarrhea 07/09/2024 Dietary counseling and surveillance 07/09/2024 Rotator cuff strain 06/16/2013 S/P ablation of atrial fibrillation 05/02/2023 Past Medical History: Diagnosis Date Afib ([facility] [place]) CHF (congestive heart failure) ([facility] [place]) Diabetes mellitus type II, controlled ([facility] [place]) GERD (gastroesophageal reflux disease) Hypercholesterolemia ([facility] [place] Hypogonadism in male Hypothyroid ([facility] [place]) Stroke ([facility] [place] 2016 Past Surgical History: Procedure Laterality Date CARDIAC ELECTROPHYSIOLOGY MAPPING AND ABLATION CARPAL TUNNEL RELEASE Right 2014 CT ANGIOGRAM HEART CORONARY 04/26/2023 CT ANGIOGRAM TAVR 04/26/2023 PARATHYROIDECTOMY 12/2019 SHOULDER SURGERY Right 2009 and 2013 tendon repair THYROID 2009 VASECTOMY No Active [...] sig growth found documented in this encounter [facility] 06-18-2024 Telephone encounter Note Summary: [place] Received a mail from [facility] with a notice on the Authorization for MRI, Brain, W/O Contrast Dated: 06/04/24 Status: Approve Service Requested: MRI, Brain, W/O Contrast Effective Dates: 06/04/2024 - 09/01/2024 Reference #: [id number] Uploaded into scan docs. Please allow time for upload. [facility] 06-18-2024 Miscellaneous Notes Summary: [place] Received a mail from [facility] with a notice on the Authorization for MRI, Brain, W/O Contrast Dated: 06/04/24 Status: Approve Service Requested: MRI, Brain, W/O Contrast Effective Dates: 06/04/2024 - 09/01/2024 Reference #: [id number] Uploaded into scan docs. Please allow time for upload. documented in this encounter [facility] 05-07-2024 History of Present illness Narrative Consults Reason For Consult Pituitary d, high prolactin, hypogonadism History Of Present Illness Gadiel Liang is a 73 y.o. male presenting with [...] results for the last 24 hours, type .[id number] If you would like to pull in [...] which included preparing to see the patient, [id number] patient care, completing clinical documentation, obtaining and / or reviewing separately obtained history, counseling and educating the patient/family/caregiver, ordering medications, tests, or procedures, communicating with other healthcare providers (not separately reported), independently interpreting results, not separately reported, and communicating results to the patient/family/caregiver, real-time telemedicine visit using audiovisual technology with patient's verbal consent. Name and date of verified. Mandie Osborne MD documented in this encounter [facility] Work Phone: 04-14-2024 Procedure note [facility] 10-29-2023 Evaluation note Encounter Date [...] improved w present med increase in dose. [facility] Other 11-03-2023 Evaluation note* Encounter Date Diagnosis Assessment Notes Treatment Notes Treatment Clinical Notes Sep, Anxiety (ICD-10 - F41.9) [facility] 10-31-2023 Evaluation note* Encounter Date Diagnosis Assessment Notes Treatment Notes Treatment Clinical Notes Aug, Anxiety (ICD-10 - F41.9) [facility] Other 10-09-2023 Evaluation note* Encounter Date Diagnosis [...] from 25mg to 50mg for better results. [facility] Other 11-30-2022 Chief complaint Narrative - Reported* [...] Patient presents for a follow up visit. NA-Nslkdxhyuozuu-SFK [address] Work Phone: 1(941) 119-261008-22-2022 Miscellaneous Notes* Telephone Encounter - Janee Hughes - 07/02/2022 2:37 PM EDT Received Thyroid US report from [facility]. Indexed into chart. [facility] Chief complaint Narrative - Reported* An interactive [...] follow-up for hypothyroidism, pituitary, and diabetes today. MG-Ownqhwka-Hobfzii [address] Work Phone: Evaluation noteNo [employer] Other Evaluation note* Diagnosis Onset Date Resolution Status Bronchitis noneactive Constipation acute Incontinence of feces with fecal urgency acute [facility] Work Phone: Evaluation note* Diagnosis Hypopituitarism (Multi)- Primary Panhypopituitarism Hypogonadism male Other testicular hypofunction Hyperparathyroidism (Multi) Hyperparathyroidism, unspecified Hyperprolactinemia (Multi) Other and unspecified anterior pituitary hyperfunction Type 2 diabetes mellitus without complication, with long-term current use of insulin (Multi) Thyroid nodule Nontoxic uninodular goiter documented in this encounter [facility] Work Phone: Evaluation note* Diagnosis Thyroid nodule (CMS/HCC)- Primary Nontoxic uninodular goiter [facility] Diagnosis Thyroid nodule (CMS/HCC)- Primary Nontoxic uninodular goiter [facility] Diagnosis Primary osteoarthritis of right hip- Primary [facility]* Diagnosis Onset Date Resolution Status Admit Date Hyperlipidemia acute May 24, 2025 9:50am Hypertension acute May 24, 025 9:50am Hypothyroidism acute May 24, 2025 9:50am Insulin dependent diabetes mellitus acute May 24, 2025 9:50am Medicare annual wellness vis it, subsequent acute May 24, 2025 9:50am Prolactin secreting pituitar y adenoma acute May 24, 2025 9:50am Type 2 diabetes mellitus wit h diabetic polyneuropathy acute May 9:50am Type 2 diabetes mellitus wit h hyperglycemia acute May 24, 2025 9:50am Type 2 diabetes mellitus wit h other circulatory complications acute May 24, 2025 9:50am [facility] Work Phone: History and physical note Author Merly Paul [facility] April 14, 2024 11:26am Note Date/Time April 14, 2024 11:26 am [facility] [address] [place] [address] Gastroenterology H&P Signed Patient: Gadiel Liang MR#: [id number] : 1950 Acct:[id number] Age/Sex: 73 / M Adm Date: 4 Loc: Room: Type: [facility] Attending Dr: Merly Paul DO Copies [...] 1125 Signed By: <Electronically signed by Merly Palu DO> 04/14/24 1126 [facility] Work Phone: History general Narrative - Reported* Type Description Date Medical History Diabetes mellitus Medical History Hyperlipemia Medical History Acid reflux Medical History Hiatal hernia Medical History Pituitary tumor Surgical History knee surgery Surgical History shoulder surgery Surgical History thyroid nodule removed Hospitalization History hematoma related to fall 2011 Hospitalization History TIA 03/2020 Hospitalization History DEHYDRATION 09/2020 [facility] History of Present illness Narrative* This [...] * -Most recent US on 12/2019 in [place], records not available * -Due for US [...] on file * Occupational History * Occupation: [employer] * Employer: [email or web address] * Comment: retired * Tobacco Use * Smoking status: Former Smoker * Years: 16.00 * Quit date: 12/12/1992 * Years since quittin.1 * Smokeless tobacco: Never Used * Substance and Sexual Activity * Alcohol use: No * Drug use: No * Sexual activity: Not on file * Other Topics * Concerns: * Not on file * Social History Narrative * resides in [place] 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 TY-Iqvbuqjcnmcyb-AVH [address] Work Phone: reason for referral (narrative)No reason for referral information availableT[facility] Work Phone: Summary Purpose Family History Unknown [...] Specified Unknown Diabetes mellitus Unknown Hypertension Unknown Relationship Condition Age at Onset Recorded Date/T abhijit brother Unknown Malignant neoplasm of pancreas Unknown father Unknown Malignant neoplasm of urinary bladder Unk nown mother Unknown Diabetes mellitus Unknown Hypertension Unknown Advance Directives Advance Directive Response Recorded Date/ Time Advance Directives No October 17, 2021 8:22am Advance Directive Response Recorded Date/ Time Advance Directives No April 21 9:26am Chief Complaint and Reason for Visit Chief Complaint Cough bowel urgency- more frequent in the last month. diarrhea/constipation diarrhea/constipation Reason for Visit Bronchitis Constipation Incontinence of feces with fecal urgency Chief Complaint Admit Date Wellness May 24, 2025 9:50 am Reason for Visit Admit Date Hyperlipidemia May 24, 2025 9:50 am Hypertension May 24, 2025 9:50 am Hypothyroidism May 24, 2025 9:50 am Insulin dependent diabetes mellitus May 24, 2025 9:50am Medicare annual wellness visit, fercho nt May 24, 2025 9:50am Prolactin secreting pituitary adenoma Ju ly 2024 9:50am Type 2 diabetes mellitus with diabetic p olyneuropathy May 24, 2025 9:50am Type 2 diabetes mellitus with hyperglyce glenn May 24, 2025 9:50am Type 2 diabetes mellitus with other circ ulatory complications May 24, 2025 9:50am Reason for Referral Specialty Diagnoses / Procedures Referred By Contac t Referred To Contact Radiology Diagnoses Hypopituitarism (Multi) Hypogonadism male Hyperparathyroidism (Multi) Hyperprolactinemia (Multi) Type 2 diabetes mellitus without complication, with long-term current use of insulin (Multi) Thyroid nodule Procedures MR sella [place] [address] [address] [facility] [place] [address] Referral ID Status Reason Start Date Expiration Date Visits Requested Visits Authorized [id number] Pending Review Perform Procedure 05/07/2024 05/07/2025 1 1 Specialty Diagnoses / Procedures Referred By Saeid vences Referred To Contact Radiology Diagnoses Hypopituitarism (Multi) Hypogonadism male Hyperparathyroidism (Multi) Hyperprolactinemia (Multi) Type 2 diabetes mellitus without complication, with long-term current use of insulin (Multi) Thyroid nodule [place] [address] [facility] [place] [address] Referral ID Status Reason Start Date Expiration Date Visits Requested Visits Authorized [id number] Authorized Perform Procedure 05/07/2024 05/07/2025 1 1 Additional Source Comments (unrecognized sect ion and content) No Status Records FoundNo Status Records FoundNo Status Records FoundNo Status Records FoundNo Status Records FoundNo Status Records FoundNo Status Records FoundNo Status Records Found INFORMATION SOURCE (unrecogn ized section and content) DATE CREATED AUTHOR 05/07/2018 [facility] DATE CREATED AUTHOR AUTHOR'S ORGANIZ ATION 10/11/2022 [facility] DATE CREATED AUTHOR AUTHOR'S ORGANIZ ATION 10/11/2022 [facility] DATE CREATED AUTHOR AUTHOR'S ORGANIZ ATION 03/04/2023 [facility] DATE CREATED AUTHOR AUTHOR'S ORGANIZ ATION 04/22/2024 [facility] DATE CREATED AUTHOR AUTHOR'S ORGANIZ ATION 06/21/2024 [facility] DATE CREATED AUTHOR AUTHOR'S ORGANIZ ATION 02/14/2025 [facility] EPIC DATE CREATED AUTHOR AUTHOR'S CORTES MEDRANO 06/27/2025 [facility] Source Comments (unrecognize d section and content) In the event this informatio n is protected by the Federal Confidentiality of Alcohol and Drug Abuse Patient Records regulations: The Federal rules restrict any use of the information to criminally investigate or prosecute any alcohol or drug abuse patient.[facility] the event this information is protected by the Federal Confidentiality of Alcohol and Drug Abuse Patient Records regulations: The Federal rules restrict any use of the information to criminally investigate or prosecute any alcohol or drug abuse patient.[facility] Reason for Visit (unrecogniz ed section and content) Reason Comments Received Outside Medical Records Receive d Thyroid US report from [facility]. Indexed into chart. Reason Comments Insurance Authorization [place] Reason Comments Follow-up Pituitary Problem Reason Comments Thyroid Nodule Ultrasound 06/09/24. Reason Comments Thyroid Nodule 5 month ultrasound T 12/23/24 Reason Comments Osteoarthritis Specialty Diagnoses / Procedures Referred By Saeid vences Referred To Contact Orthopaedic Surgery Diagnoses Primary osteoarthritis of right hip Isaura Garber, BAR WAITER/WAITRESS [address] [place] [address] Phone: tel: fax: Ansley Chaves, DO [address] [facility] [address] [place], [place] Phone: tel: fax: Referral ID Status Reason Start Date Expiration Date V isits Requested Visits Authorized [id number] Closed Specialty Services Required 02/01/2025 07/31/2025 1 1 Care Teams (unrecognized sec tion and content) Team Status: Active Member Role Status Dates Joseluis Quiroz MD Primary Care Provider Active Team Status: Active Member Role Status Dates Joseluis Quiroz MD Primary Care Provider Active Start: April 15, 2025 Milan Peña MD Attending Provider Active Star t: April 15, 2025 Team Status: Inactive Member Role Status Dates Joseluis Quiroz MD Primary Care Provider Active Start: May 24, 2025 End: May 24, 2025 Joseluis Quiroz MD Attending Provider Active St art: May 24, 2025 End: May 24, 2025 Fryline Attendant Relationship Specialty Start Date End Date Cabrera Dupont MD PCP - General Family Practice 01/21/19 Team Status: Inactive Member Role Status Dates Joseluis Quiroz MD Primary Care Provider Active Start: March 06, 2024 End: March 06, 2024 Melonie Patel NP-C Attending Provider Active S tart: March 06, [...] Other Provider Active Start: April 14, 2024 Fryline Attendant Relationship Specialty Start Date End Date Cabrera Dupont MD PCP - General Family Medicine 01/21/19 Fryline Attendant Relationship Specialty Start Date End Date Cabrera Dupont MD [address] [place] [facility] [place] [address] PCP - General 11/30/20 Fryline Attendant Relationship Specialty Start Date End Date Joseluis Quiroz MD [address] [facility] [place] [phone] PCP - General Family Medicine 03/23/24 Fryline Attendant Relationship Specialty Start Date End Date Joseluis Quiroz MD [address] [facility] [place] [phone] PCP - General Family Medicine 03/23/24 Fryline Attendant Relationship Specialty Start Date End Date Joseluis Quiroz MD [address] [facility] [place] [phone] PCP - General Family Medicine 03/23/24 Fryline Attendant Relationship Specialty Start Date End Date Joseluis Quiroz MD [address] [facility] [place] [address] PCP - General Family Medicine 03/23/24 Fryline Attendant Relationship Specialty Start Date End Date Joseluis Quiroz MD [address] [facility] [place] [phone] PCP - General Family Medicine 03/23/24 Fryline Attendant Relationship Specialty Start Date End Date Joseluis Quiroz MD [address] [facility] [place] [phone] PCP - General Family Medicine 03/23/24 Fryline Attendant Relationship Specialty Start Date End Date Joseluis Quiroz MD PCP - General Family Medicine 03/23/24 Goals (unrecognized section and content) Goals may be documented in a n alternate section FOR RECORDS PERTAINING TO PATIENTS WHO ARE [...] BE BASED ON THE PRIMARY CLINICAL RECORDS. [facility]. provides no warranty or guarantee of the accuracy or completeness of information in this document.
== END 2025-06-29 11:23 | disposition home or self-care (01) ==
LOC: US 11:22
PROVIDERS: PCP Family Medicine; Visit Provider Otolaryngology
DX: E04.1 Nontoxic single thyroid nodule (principal)
CPT/HCPCS: 76536

== ENCOUNTER 2025-07-07 14:19 | Observation (INO) | payer MEDICARE, SELFPAY ==
--- OUTSIDE RECORDS SUMMARY | 2024-09-05 17:30 | XMS_ITS ---
Author Organization [place] [facility] Address [address] [place] [id number] Care Team Providers Care Engagement Executive Name Role Phone Cabrera Calderón Unavailable [phone] . Unavailable Unavailabl e Migration, Provider Unavailable Unavailable [facility]version Encounter Medications Medication SIG (Take, [...] Active Encounters Encounter Location Date Provider Diagnosis [facility] [address] [id number] 09/05/2024 Provider Migration Plan Of Treatment No Information Progress Notes * Gadiel LIANGDOB: (74 yo M)Acc No.[id number]:09/05/2024 Patient: Barber Eatonnis Provider: Thuan mares Migration :1950 A ge:74 Y S ex:Male Date:09/05/2024 Address:[address] [place] [address], [place] [id number] Subjective: * Chief Complaints: * [facility] * Medications: T akingWellbutrin XL [...] Electronic signature of Prov ider Migration on 07/07/2025 at 11:29 AM [facility] Sign off status: Pending * Provider: Thuan mares Migration Date: Generated for Westley correa/Violet/Mike on: 0 07/07/2025 11:29 AM [facility]
[2025-07-07] VITALS (27 sets, daily range): BP systolic 128–132; BP diastolic 62–82; PULSE 60–76; TEMP 36.4–36.8; O2SAT 95; BMI 25.8; BMI 26.0
--- OUTSIDE RECORDS SUMMARY | 2025-07-07 14:28 | XMS_ITS | Encounter Summary ---
Author Organization [facility] Address [address] [place] [address] Care Team Providers Care Copy Messenger Name Role Phone Cabrera Dupont MD Primary Care Provider [phone] Source Comments In the event this information is protected by the Federal Confidentiality of Alcohol and Drug AbusePatient Records regulations: The Federal rules restrict any use of the information to criminally investigate or prosecute any alcohol or drug abuse patient.[facility] Encounter Details Date Type Department Care Team (Late st Contact Info) Description 10/01/2019 Get Medical Advice Endocrinology [address] [place] [address] Mandie Osborne MD [address] [facility] [address] [address] RE: Medication Question (Not Renewal) [...] on filedocumented in this encounter Care Teams Copy Messenger Relationship Specialty Start Date End Date Cabrera Dupont MD PCP - General Family Medicine 01/21/19 documented as of this encounter
--- OUTSIDE RECORDS SUMMARY | 2025-07-07 14:28 | XMS_ITS | Encounter Summary ---
Author Organization [facility] Address [address] [place] [address] Care Team Providers Care Wind Tunnel Technician Name Role Phone Haritha Argueta MD Primary Care Provider [phone] Encounter Details Date Type Department Care Team (Late st Contact Info) Description 04/25/2025 Results Follow-Up [facility] Cardiology [address] [place] [address] Abiel Hernandez MD [address] [place] [place] [address] Lipid panel, ALT, AST Social History Tobacco Use Types Packs/Day Years [...] and heating? Not hard at all 05/02/2023 [place] Safety & Environment Answer Date Rec orded [...] place to sleep or slept in a fdc (including now)? No 05/02/2023 Hunger Vital Sign [...] at Not on file Legal Sex Male 9:46 PM EDT Gender Identity Not on file Sexual Orientation Not on file documented as of this encounter Plan of Treatment Upcoming Encounters Date Type Department Care Team (Late st Contact Info) Description 07/16/2025 1:40 PM EDT Office Visit [facility] at [facility] [address] [place] [address] Rc Starr, GUM SCORING MACHINE OPERATOR [address] [place] [address] documented as of this encounter Visit Diagnoses Not on filedocumented in this encounter Care Teams Wind Tunnel Technician Relationship Specialty Start Date End Date Haritha Argueta MD [address] [facility] PCP - General 10/16/22 documented as of this encounter
--- OUTSIDE RECORDS SUMMARY | 2025-07-07 14:28 | XMS_ITS | Encounter Summary ---
Author Organization [facility] Address [address] [place] [address] Care Team Providers Care Percolator Operator Name Role Phone Carlos Andersen DO Primary Care Provider Cabrera Dupont MD Primary Care Provider [phone] Source Comments In the event this information is protected by the Federal Confidentiality of Alcohol and Drug AbusePatient Records regulations: The Federal rules restrict any use of the information to criminally investigate or prosecute any alcohol or drug abuse patient.[facility] Encounter Details Date Type Department Care Team (Late st Contact Info) Description 11/08/2016 Patient Msg Preventive Cardiology [address] [place] [address] Mandie Osborne MD [address] [address] Social History Tobacco Use Types [...] on filedocumented in this encounter Care Teams Percolator Operator Relationship Specialty Start Date End Date Carlos Andersen DO PCP - General Family Medicine 05/13/14 01/20/19 Cabrera Dupont MD PCP - General Family Medicine 01/21/19 documented as of this encounter
--- OUTSIDE RECORDS SUMMARY | 2025-07-07 14:28 | XMS_ITS | Encounter Summary ---
Author Organization [facility] Address [address] [place] [address] Care Team Providers Care Supervisor Paste Plant Name Role Phone Cabrera Dupont MD Primary Care Provider [phone] Source Comments In the event this information is protected by the Federal Confidentiality of Alcohol and Drug AbusePatient Records regulations: The Federal rules restrict any use of the information to criminally investigate or prosecute any alcohol or drug abuse patient.[facility] Encounter Details Date Type Department Care Team (Late st Contact Info) Description 01/22/2019 Patient Msg Endocrinology [address] [place] [address] Mandie Osborne MD [address] [facility] [address] [address] RE:(No subject) Social History Tobacco [...] on filedocumented in this encounter Care Teams Supervisor Paste Plant Relationship Specialty Start Date End Date Cabrera Dupont MD PCP - General Family Medicine 01/21/19 documented as of this encounter
--- OUTSIDE RECORDS SUMMARY | 2025-07-07 14:28 | XMS_ITS | Encounter Summary ---
Author Organization [facility] Address [address] [place] [address] Care Team Providers Care Tactical Air Control Party Manager Name Role Phone Carlos Andersen DO Primary Care Provider Cabrera Dupont MD Primary Care Provider [phone] Source Comments In the event this information is protected by the Federal Confidentiality of Alcohol and Drug AbusePatient Records regulations: The Federal rules restrict any use of the information to criminally investigate or prosecute any alcohol or drug abuse patient.[facility] Encounter Details Date Type Department Care Team (Late st Contact Info) Description 09/03/2016 Patient Msg Medical Records [address] [place] [address] Provider, Ccf Social History Tobacco Use Types [...] on filedocumented in this encounter Care Teams Tactical Air Control Party Manager Relationship Specialty Start Date End Date Carlos Andersen DO PCP - General Family Medicine 05/13/14 01/20/19 Cabrera Dupont MD PCP - General Family Medicine 01/21/19 documented as of this encounter
--- OUTSIDE RECORDS SUMMARY | 2025-07-07 14:28 | XMS_ITS | Clinical Summary ---
Author Organization [facility] Address [address] [place] [address] Care Team Providers Care Kindergarten Assistant Name Role Phone Haritha Argueta MD Primary Care Provider [phone] Allergies Active Allergy Reactions Criticality Noted Date Comments No Known Allergies Low 05/02/2023 Medications buPROPion SR (Wellbutrin SR) 150 mg 12 hr tablet Take 1 tablet twice a day by oral route. 04/13/20 Active cabergoline (Dostinex) 0.5 mg tablet Take 1 tablet every other day by oral route. 04/13/20 20 Active Lantus Solostar U-100 Insulin 100 unit/mL (3 mL) pen Inject 45 Units under the skin in the morning. 10/10/20 22 Active levothyroxine (Synthroid, Levoxyl) 75 mcg tablet 37.5 mcg in the morning. 04/13/20 20 Active metFORMIN (Glucophage) 500 mg tablet Take 500 mg by mouth at bedtime. 10/14/20 22 Active apixaban (Eliquis) 5 mg tabletIndications: Atrial fibrillation with rapid ventricular response (CMS/HCC) Take 1 tablet (5 mg) by mouth in the morning and at bedtime. 60 tablet 11 10/16/20 22 026 Active esomeprazole (NexIUM) [address] capsule Take 40 mg by mouth before breakfast. Do not open capsule. Active testosterone (Androgel) 50 mg/5 gram (1 %) gel Place 50 mg on the skin in the morning. As directed Active lisinopril 5 mg tabletIndications: Acute on chronic systolic heart failure (CMS/HCC) Take 1 tablet (5 mg) by mouth in the morning. 30 tablet 11 10/26/20 22 Active furosemide (Lasix) 40 mg tabletIndications: Acute on chronic systolic heart failure (CMS/HCC) Take 1 tablet by mouth daily for fluid retention as directed 90 tablet 3 11/28/19 23 Active Additional Information Patient not taking.Reported on 04/20/2025 sildenafil (Viagra) 25 mg tablet Take 25 mg by mouth if needed each day. Active escitalopram (Lexapro) 10 mg tablet Take 10 mg by mouth in the morning. Active Farxiga 10 mgIndications:Acut e on chronic systolic congestive heart failure (CMS/HCC) TAKE 1 TABLET BY MOUTH EVERY DAY IN THE MORNING 30 tablet 11 11/24/19 25 Active carvedilol (Coreg) 6.25 mg tabletIndications: Acute on chronic systolic congestive heart failure (CMS/HCC) TAKE 1 TABLET (6.25 MG) BY MOUTH IN THE MORNING AND AT BEDTIME. 180 tablet 3 03/03/20 25 Active rosuvastatin (Crestor) 40 mg tabletIndications: Mixed hyperlipidemia TAKE 1 TABLET BY MOUTH EVERY DAY IN THE MORNING 90 tablet 3 03/03/20 25 Active spironolactone (Aldactone) 25 mg tabletIndications: Acute on chronic systolic heart failure (CMS/HCC) TAKE 1/2 TABLET BY MOUTH EVERY MORNING 45 tablet 3 05/28/20 25 Active Active Problems Patient Care Coordination No te Formatting of this note migh t be different from the original. Patient will be started on eliqiuis Booked for MOMO with possible cardioversion with Dr. 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 Continue Eliquis and Carvedilol. [id number], D/W Dr Espinoza- EP and he [...] Assessment & Plan (11/28/2022 3:48 PM EST): [facility] II-III Currently euvolemic, without excerbation. Continue GDMT- lipitor, coreg, farxiga, lasix, lisinopril and aldactone Check CMP today Monitor daily weights, I&O, fluid restriction 1.5-2L/day, renal function and electrolytes Vasovagal syncope 10/26/2022 History of transient ischemic attack (TIA) 10/26 CVA (cerebral vascular accident) 10/26/2022 Overview (10/26/2022): a2017 affecting left side Atrial fibrillation 10/18/2022 Overview (10/18/2022): Added automatically from request for surgery [id number] Assessment & Plan (04/01/2024 12:53 PM EDT): [id number] Continue eliquis anticoagulation. Continue coreg- rate is well controlled and pt remains in Sinus rhythm RTC [address] Espinoza Assessment & Plan (11/28/2022 3:50 PM EST): as above- s/p DCCV on 10/24. Continue Eliquis and Carvedilol. [id number], D/W Dr Espinoza- EP and he recommends pt to start amiodarone for antiarrythmic and plan for outpt cardioversion Persistent atrial fibrillation 10/16/2022 Assessment & Plan (10/16/2022 4:37 PM EST): -[id number] - 4 (age, hx cva, DM, htn) [...] Encounters Date Type Department Care Team Description 05/28/2025 Refill [facility] [address] [place] [facility] [place] [address] Janee Rayo CNP Acute on chronic systolic heart failure (CMS/HCC) (Primary Dx) 05/18/2025 Telephone [place] [address] [place] [facility] [place] [address] Tarah Figueroa MA 04/25/2025 Results Follow-Up [facility] Cardiology [address] [place] [address] Abiel Hernandez MD Lipid panel, ALT, AST 04/20/2025 10:00 AM EDT Office Visit [address] [place] [address] Eliceo Espionza MD Permanent atrial fibrillation (CMS/HCC) 04/15/2025 Orders Only [facility] [address] [place] [facility] [place] [address] Abiel Hernandez MD from Last 3 Months Family History Medical [...] place to sleep or slept in a custodial (including now)? No 05/02/2023 Hunger Vital Sign [...] Sign Reading Time Taken Comments Blood Pressure 123/61 04/20/2025 10:32 AM EDT Pulse 72 04/20/2025 10:32 AM EDT Temperature 36.5 C (97.7 F) 05/03/2023 7:00 AM EDT Respiratory Rate 12 04/01/2024 9:49 AM EDT Oxygen Saturation 96% 04/20/2025 10:32 AM EDT Inhaled Oxygen Concentration - - Weight 89.4 kg (197 lb) 04/20/2025 10:32 AM EDT Height 182.9 cm (6') 04/20/2025 10:32 AM EDT Body Mass Index 26.72 04/20/2025 10:32 AM EDT Plan of Treatment Upcoming Encounters Date Type Department Care Team (Late st Contact Info) Description 07/16/2025 1:40 PM EDT Office Visit [facility] [address] [place] [address] Rc Starr, BROWN STOCK WASHER [address] [place] [address] Health Maintenance Due Date Last Done Comments CT Colonography 1950 Colonoscopy 1950 Colorectal Cancer Screening 1950 FIT-DNA 1951 FIT 1951 FOBT 1950 Medicare Annual Wellness (AWV) 1950 Sigmoidoscopy 1951 Diabetes: Retinopathy Screening 1961 Depression Screening 1963 Diabetes: Urine Protein Screening 1970 Adult Tetanus 1973 Fall Risk Screening 2016 Zoster Vaccines (2 of 2) 10/07/2017 08/12/2017, 07/13 Pneumococcal Vaccine: 50+ Years (2 of 2 - PCV) 08/12/2018 08/12/2017, 08/04/2014 Diabetes: Hemoglobin A1C 01/22/2022 10/24/2021 COVID-19 Vaccine ( - season) 2024 01/18/2021 Influenza Vaccine (#1) 2025 , 10/12/2023, 08/15/2022, Additional history exists HIB Vaccines Aged [...] on patient's age to complete this topic Procedures Procedure Name Priority Date/Time Associated Diagnosis Comments ECG 12 LEAD UNIT PERFORMED Routine 04/20/2025 10:47 AM EDT Permanent atrial fibrillation (CMS/HCC) AST Routine 04/15/2025 12:14 PM EDT ALT Routine 04/15/2025 12:14 PM EDT LIPID PANEL Routine 04/15/2025 12:14 PM EDT from Last 3 Months Results * ECG 12 lead unit performed (04/20/2025 10:47 AM EDT) Eliceo Espinoza MD ECG ORDERABLES Final Result * ALT (04/15/2025 12:14 PM EDT) Blood Venous blood specimen / Unknown Abiel Hernandez MD LAB BLOOD ORDERABLES Final Resul t * AST (04/15/2025 12:14 PM EDT) Blood Venous blood specimen / Unknown Abiel Hernandez MD LAB BLOOD ORDERABLES Final Resul t * Lipid panel (04/15/2025 12:14 PM EDT) Blood Venous blood specimen / Unknown Abiel Hernandez MD LAB BLOOD ORDERABLES Final Resul t from Last [address] [place] [address] MEDICARE ADVANTAGE Advance Directives * Full Code (Latest Code Status on File) Date Activated Date Inactivated Comments 05/02/2023 5:35 PM 05/03/2023 3:13 PM * Full Code Date Activated Date Inactivated Comments 11/15/2022 3:14 PM 11/20/2022 8:07 PM Care Teams Kindergarten Assistant Relationship Specialty Start Date End Date Haritha Argueta MD [address] [place] [address] #A PCP - General 10/16/22
--- OUTSIDE RECORDS SUMMARY | 2025-07-07 14:28 | XMS_ITS | Encounter Summary ---
Author Organization [facility] Address [facility] [place] [address] Care Team Providers Care Tube Drawing Supervisor Name Role Phone Carlos Andersen DO Primary Care Provider Mandie Osborne MD Unavailable [phone] Cabrera Dupont MD Primary Care Provider [phone] Source Comments In the event this information is protected by the Federal Confidentiality of Alcohol and Drug AbusePatient Records regulations: The Federal rules restrict any use of the information to criminally investigate or prosecute any alcohol or drug abuse patient.[facility] Encounter Details Date Type Department Care Team (Late st Contact Info) Description 09/02/2015 Patient Msg Medical Records [address] [place] [address] Provider, Ccf RE: Request an Appointment Social [...] on filedocumented in this encounter Care Teams Tube Drawing Supervisor Relationship Specialty Start Date End Date Carlos Andersen DO PCP - General Family Medicine 05/13/14 01/20/19 Cabrera Dupont MD PCP - General Family Medicine 01/21/19 Mandie Osborne MD Primary Staff Physician Cardiology 02/09/15 6 documented as of this encounter
--- OUTSIDE RECORDS SUMMARY | 2025-07-07 14:28 | XMS_ITS | Encounter Summary ---
Author Organization [facility] Address [facility] [place] [address] Care Team Providers Care Office Rental Clerk Name Role Phone Carlos Andersen DO Primary Care Provider Mandie Osborne MD Unavailable [phone] Cabrera Dupont MD Primary Care Provider [phone] Source Comments In the event this information is protected by the Federal Confidentiality of Alcohol and Drug AbusePatient Records regulations: The Federal rules restrict any use of the information to criminally investigate or prosecute any alcohol or drug abuse patient.[facility] Encounter Details Date Type Department Care Team (Late st Contact Info) Description 03/03/2015 Patient Msg Medical Records [address] [place] [address] Provider, Ccf lab orders and appointment Social [...] 02/23/2015 1:39 PM EDT Caio, Radha jesenia L (Business Continuity Global Director), PATIENT SUPPORT TECH * Are you blind or do you have serious difficulty seeing, even when wearing glasses? Answer Date of Assessment Author No 02/23/2015 1:39 PM EDT Caio, Va jesenia L (Business Continuity Global Director), PATIENT SUPPORT TECH * Do you have serious difficulty walking or climbing stairs? Answer Date of Assessment Author No 02/23/2015 1:39 PM EDT Caio, Va jesenia L (Business Continuity Global Director), PATIENT SUPPORT TECH * Do you have difficulty dressing or bathing? Answer Date of Assessment Author No 02/23/2015 1:39 PM EDT Caio, Radha jesenia L (Business Continuity Global Director), PATIENT SUPPORT TECH * Because of a physical, mental, or emotional condition, do you have difficulty doing errands alone such as visiting a doctor's office or shopping? Answer Date of Assessment Author No 02/23/2015 1:39 PM EDT Caio, Radha jesenia L (Business Continuity Global Director), PATIENT SUPPORT TECH documented as of this encounter Mental Status * Because of a physical, mental, or emotional condition, do you have serious difficulty concentrating, remembering, or making decisions? Answer Entry Date Author No 02/23/2015 1:39 PM EDT Caio, Radha jesenia L (Business Continuity Global Director), PATIENT SUPPORT TECH documented in this encounter Plan of Treatment Not on file documented as of this encounter Visit Diagnoses Not on filedocumented in this encounter Care Teams Office Rental Clerk Relationship Specialty Start Date End Date Carlos Andersen DO PCP - General Family Medicine 05/13/14 01/20/19 Cabrera Dupont MD PCP - General Family Medicine 01/21/19 Mandie Osborne MD Primary Staff Physician Cardiology 02/09/15 6 documented as of this encounter
--- OUTSIDE RECORDS SUMMARY | 2025-07-07 14:28 | XMS_ITS | Encounter Summary ---
Author Organization [facility] Address [address] [place] [address] Care Team Providers Care Mail Processing Associate Name Role Phone Cabrera Dupont MD Primary Care Provider [phone] Source Comments In the event this information is protected by the Federal Confidentiality of Alcohol and Drug AbusePatient Records regulations: The Federal rules restrict any use of the information to criminally investigate or prosecute any alcohol or drug abuse patient.[facility] Encounter Details Date Type Department Care Team (Late st Contact Info) Description 10/01/2019 Get Medical Advice Endocrinology [address] [place] [address] Mandie Osborne MD [address] [facility] [address] [address] RE: Medication Question (Not Renewal) [...] on filedocumented in this encounter Care Teams Mail Processing Associate Relationship Specialty Start Date End Date Cabrera Dupont MD PCP - General Family Medicine 01/21/19 documented as of this encounter
--- OUTSIDE RECORDS SUMMARY | 2025-07-07 14:28 | XMS_ITS | Clinical Summary ---
Author Organization [facility] Address [id number] [address] [place] [address] Care Team Providers Care Sewer Pipe Sorter Name Role Phone Haritha Argueta MD Primary Care Provider [phone] Allergies No known active allergies Medications apixaban [...] on file Insurance [employer] MEDICARE Care Teams Sewer Pipe Sorter Relationship Specialty Start Date End Date Haritha Argueta MD [address] [place] [address] PCP - General Family Medicine 10/31/22
--- OUTSIDE RECORDS SUMMARY | 2025-07-07 14:28 | XMS_ITS | Encounter Summary ---
Author Organization [facility] Address [address] [place] [address] Care Team Providers Care Child Care Nurse Name Role Phone Carlos Andersen DO Primary Care Provider Cabrera Dupont MD Primary Care Provider Source Comments In the event this information is protected by the Federal Confidentiality of Alcohol and Drug AbusePatient Records regulations: The Federal rules restrict any use of the information to criminally investigate or prosecute any alcohol or drug abuse patient.[facility] Encounter Details Date Type Department Care Team (Late st Contact Info) Description 09/14/2018 Get Medical Advice Endocrinology [address] [place] [address] Mandie Osborne MD [address] [facility] [address] [address] RE: Medication Question (Not Renewal) [...] uncontrolled documented in this encounter Care Teams Child Care Nurse Relationship Specialty Start Date End Date Carlos Andersen DO PCP - General Family Medicine 05/13/14 01/20/19 Cabrera Dupont MD PCP - General Family Medicine 01/21/19 documented as of this encounter
--- OUTSIDE RECORDS SUMMARY | 2025-07-07 14:28 | XMS_ITS | Encounter Summary ---
Author Organization [facility] [place] [facility] Address [address] [place] [address] Care Team Providers Care Nib Assembler Name Role Phone GaneshCarlos DO Primary Care Provider Mandie Osborne MD Unavailable [phone] Cabrera Dupont MD Primary Care Provider [phone] Source Comments In the event this information is protected by the Federal Confidentiality of Alcohol and Drug AbusePatient Records regulations: The Federal rules restrict any use of the information to criminally investigate or prosecute any alcohol or drug abuse patient.[facility] [place] [facility] Encounter Details Date Type Department Care Team (Late st Contact Info) Description 02/25/2015 Get Medical Advice Endocrinology [address] [place] [address] Mandie Osborne MD [address] [facility] [address] [address] RE: Test Result Question Social [...] Author Yes 02/23/2015 1:39 PM EDT Caio, Va jesenia L (Folded Cloth Taper), TARGET MAN * Are you blind or do you have serious difficulty seeing, even when wearing glasses? Answer Date of Assessment Author No 02/23/2015 1:39 PM EDT Caio, Va jesenia L (Folded Cloth Taper), TARGET MAN * Do you have serious difficulty walking or climbing stairs? Answer Date of Assessment Author No 02/23/2015 1:39 PM EDT Caio, Va jesenia L (Folded Cloth Taper), TARGET MAN * Do you have difficulty dressing or bathing? Answer Date of Assessment Author No 02/23/2015 1:39 PM EDT Caio, Va jesenia L (Folded Cloth Taper), TARGET MAN * Because of a physical, mental, or emotional condition, do you have difficulty doing errands alone such as visiting a doctor's office or shopping? Answer Date of Assessment Author No 02/23/2015 1:39 PM EDT Caio, Va jesenia L (Folded Cloth Taper), TARGET MAN documented as of this encounter Mental Status * Because of a physical, mental, or emotional condition, do you have serious difficulty concentrating, remembering, or making decisions? Answer Entry Date Author No 02/23/2015 1:39 PM EDT Caio Va jesenia L (Folded Cloth Taper), TARGET MAN documented in this encounter Plan of Treatment Not on file documented as of this encounter Visit Diagnoses Not on filedocumented in this encounter Care Teams Nib Assembler Relationship Specialty Start Date End Date Carlos Andersen DO PCP - General Family Medicine 05/13/14 01/20/19 Cabrera Dupont MD PCP - General Family Medicine 01/21/19 Mandie Osborne MD Primary Staff Physician Cardiology 02/09/15 6 documented as of this encounter
--- OUTSIDE RECORDS SUMMARY | 2025-07-07 14:28 | XMS_ITS | Encounter Summary ---
Author Organization [facility] Address [facility] [place] [address] Care Team Providers Care Gusset Stitcher Name Role Phone Carlos Andersen DO Primary Care Provider Mandie Osborne MD Unavailable Cabrera Dupont MD Primary Care Provider [phone] Source Comments In the event this information is protected by the Federal Confidentiality of Alcohol and Drug AbusePatient Records regulations: The Federal rules restrict any use of the information to criminally investigate or prosecute any alcohol or drug abuse patient.[facility] Encounter Details Date Type Department Care Team (Late st Contact Info) Description 09/02/2015 Patient Msg Medical Records [address] [place] [address] Provider, Ccf Social History Tobacco Use Types [...] on filedocumented in this encounter Care Teams Gusset Stitcher Relationship Specialty Start Date End Date Carlos Andersen DO PCP - General Family Medicine 05/13/14 01/20/19 Cabrera Dupont MD PCP - General Family Medicine 01/21/19 Mandie Osborne MD Primary Staff Physician Cardiology 02/09/15 6 documented as of this encounter
--- OUTSIDE RECORDS SUMMARY | 2025-07-07 14:28 | XMS_ITS | Encounter Summary ---
Author Organization [facility] Address [address] [place] [address] Care Team Providers Care Senior Software Tester Name Role Phone Carlos Andersen DO Primary Care Provider Cabrera Dupont MD Primary Care Provider [phone] Source Comments In the event this information is protected by the Federal Confidentiality of Alcohol and Drug AbusePatient Records regulations: The Federal rules restrict any use of the information to criminally investigate or prosecute any alcohol or drug abuse patient.[facility] Encounter Details Date Type Department Care Team (Late st Contact Info) Description 03/06/2017 Patient Msg Endocrinology [address] [place] [address] Mandie Osborne MD [address] [facility] Farmer [address] [address] RE: Request an Appointment Social [...] on filedocumented in this encounter Care Teams Senior Software Tester Relationship Specialty Start Date End Date Carlos Andersen DO PCP - General Family Medicine 05/13/14 01/20/19 Cabrera Dupont MD PCP - General Family Medicine 01/21/19 documented as of this encounter
--- OUTSIDE RECORDS SUMMARY | 2025-07-07 14:28 | XMS_ITS | Encounter Summary ---
Author Organization [facility] Address [address] [place] [address] Care Team Providers Care Technology Professional Name Role Phone Carlos Andersen DO Primary Care Provider Cabrera Dupont MD Primary Care Provider [phone] Source Comments In the event this information is protected by the Federal Confidentiality of Alcohol and Drug AbusePatient Records regulations: The Federal rules restrict any use of the information to criminally investigate or prosecute any alcohol or drug abuse patient.[facility] Encounter Details Date Type Department Care Team (Late st Contact Info) Description 10/23/2018 Patient Msg Endocrinology [address] [place] [id number] Provider, Ccf From Dr. Mandie Osborne's office [...] on filedocumented in this encounter Care Teams Technology Professional Relationship Specialty Start Date End Date Carlos Andersen DO PCP - General Family Medicine 05/13/14 01/20/19 Cabrera Dupont MD PCP - General Family Medicine 01/21/19 documented as of this encounter
--- OUTSIDE RECORDS SUMMARY | 2025-07-07 14:28 | XMS_ITS | Encounter Summary ---
Author Organization [facility] Address [address] [place] [address] Care Team Providers Care Voice And Data Technician Name Role Phone Carlos Andersen DO Primary Care Provider Cabrera Dupont MD Primary Care Provider [phone] Source Comments In the event this information is protected by the Federal Confidentiality of Alcohol and Drug AbusePatient Records regulations: The Federal rules restrict any use of the information to criminally investigate or prosecute any alcohol or drug abuse patient.[facility] Encounter Details Date Type Department Care Team (Late st Contact Info) Description 02/26/2017 Patient Msg Endocrinology [address] [place] [address] Mandie Osborne MD [address] [facility] [address] [address] Request an Appointment Social History [...] on filedocumented in this encounter Care Teams Voice And Data Technician Relationship Specialty Start Date End Date Carlos Andersen DO PCP - General Family Medicine 05/13/14 01/20/19 Cabrera Dupont MD PCP - General Family Medicine 01/21/19 documented as of this encounter
--- OUTSIDE RECORDS SUMMARY | 2025-07-07 14:28 | XMS_ITS | Encounter Summary ---
Author Organization [facility] Address [facility] [place] [address] Care Team Providers Care Senior Analytical Chemist Name Role Phone aCrlos Andersen DO Primary Care Provider Mandie Osborne MD Unavailable [phone] Cabrera Dupont MD Primary Care Provider Source Comments In the event this information is protected by the Federal Confidentiality of Alcohol and Drug AbusePatient Records regulations: The Federal rules restrict any use of the information to criminally investigate or prosecute any alcohol or drug abuse patient.[facility] Encounter Details Date Type Department Care Team (Late st Contact Info) Description 05/27/2014 Patient Msg Medical Records [address] [place] [address] Provider, Ccf Social History Tobacco Use Types [...] of Assessment Author No 05/13/2014 2:05 PM Haley Encarnacion RN * Because of a physical, [...] filedocumented in this encounter Care Teams Senior Analytical Chemist Relationship Specialty Start Date End Date Carlos Andersen DO PCP - General Family Medicine 05/13/14 01/20/19 Cabrera Dupont MD PCP - General Family Medicine 01/21/19 Mandie Osborne MD Primary Staff Physician Cardiology 02/09/15 6 documented as of this encounter
--- OUTSIDE RECORDS SUMMARY | 2025-07-07 14:28 | XMS_ITS | Encounter Summary ---
Author Organization [facility] Address [facility] [place] [address] Care Team Providers Care Coat Checker Name Role Phone Carlos Andersen DO Primary Care Provider Mandie Osborne MD Unavailable [phone] Cabrera Dupont MD Primary Care Provider [phone] Source Comments In the event this information is protected by the Federal Confidentiality of Alcohol and Drug AbusePatient Records regulations: The Federal rules restrict any use of the information to criminally investigate or prosecute any alcohol or drug abuse patient.[facility] Encounter Details Date Type Department Care Team (Late st Contact Info) Description 09/03/2014 Patient Msg Medical Records [address] [place] [address] Provider, Ccf Social History Tobacco Use Types [...] on filedocumented in this encounter Care Teams Coat Checker Relationship Specialty Start Date End Date Carlos Andersen DO PCP - General Family Medicine 05/13/14 01/20/19 Cabrera Dupont MD PCP - General Family Medicine 01/21/19 Mandie Osborne MD Primary Staff Physician Cardiology 02/09/15 6 documented as of this encounter
--- OUTSIDE RECORDS SUMMARY | 2025-07-07 14:28 | XMS_ITS | Encounter Summary ---
Author Organization [facility] Address [facility] [place] [address] Care Team Providers Care Disaster Response Director Name Role Phone Feliz Mitchell Jr. Primary Care Provider UnaCarlos Martinez DO Primary Care Provider Mandie Osborne MD Unavailable [phone] Cabrera Dupont MD Primary Care Provider [phone] Source Comments In the event this information is protected by the Federal Confidentiality of Alcohol and Drug AbusePatient Records regulations: The Federal rules restrict any use of the information to criminally investigate or prosecute any alcohol or drug abuse patient.[facility] Encounter Details Date Type Department Care Team (Late st Contact Info) Description 03/26/2012 Patient Msg Medical Records [address] [place] [address] Provider, Ccf Social History Tobacco Use Types [...] on filedocumented in this encounter Care Teams Disaster Response Director Relationship Specialty Start Date End Date Feliz Mitchell Jr. PCP - General Family Medicine 03/25/12 05/12/14 Carlos Andersen DO PCP - General Family Medicine 05/13/14 01/20/19 Cabrera Dupont MD PCP - General Family Medicine 01/21/19 Mandie Osborne MD Primary Staff Physician Cardiology 02/09/15 6 documented as of this encounter
--- OUTSIDE RECORDS SUMMARY | 2025-07-07 14:28 | XMS_ITS | Encounter Summary ---
Author Organization [facility] Address [address] [place] [address] Care Team Providers Care Principal Cyber Engineer Name Role Phone Carlos Andersen DO Primary Care Provider Cabrera Dupont MD Primary Care Provider [phone] Source Comments In the event this information is protected by the Federal Confidentiality of Alcohol and Drug AbusePatient Records regulations: The Federal rules restrict any use of the information to criminally investigate or prosecute any alcohol or drug abuse patient.[facility] Encounter Details Date Type Department Care Team (Late st Contact Info) Description 12/20/2017 Get Medical Advice Endocrinology [address] [place] [address] Mandie Osborne MD [address] [facility] Farmer [address] [address] RE: Medication Question (Not Renewal) [...] on filedocumented in this encounter Care Teams Principal Cyber Engineer Relationship Specialty Start Date End Date Carlos Andersen DO PCP - General Family Medicine 05/13/14 01/20/19 Cabrera Dupont MD PCP - General Family Medicine 01/21/19 documented as of this encounter
--- OUTSIDE RECORDS SUMMARY | 2025-07-07 14:28 | XMS_ITS | Encounter Summary ---
Author Organization [facility] Address [facility] [place] [address] Care Team Providers Care Garment Mender Name Role Phone Feliz Mitchell Jr. Primary Care Provider Unava Carlos Bowman DO Primary Care Provider Mandie Osborne MD Unavailable [phone] Cabrera Dupont MD Primary Care Provider [phone] Source Comments In the event this information is protected by the Federal Confidentiality of Alcohol and Drug AbusePatient Records regulations: The Federal rules restrict any use of the information to criminally investigate or prosecute any alcohol or drug abuse patient.[facility] Encounter Details Date Type Department Care Team (Late st Contact Info) Description 07/03/2013 Patient Msg Medical Records [address] [place] [address] Provider, Ccf RE:(No subject) Social History Tobacco [...] on filedocumented in this encounter Care Teams Garment Mender Relationship Specialty Start Date End Date Feliz Mitchell Jr. PCP - General Family Medicine 03/25/12 05/12/14 Carlos Andersen DO PCP - General Family Medicine 05/13/14 01/20/19 Cabrera Dupont MD PCP - General Family Medicine 01/21/19 Mandie Osborne MD Primary Staff Physician Cardiology 02/09/15 6 documented as of this encounter
--- OUTSIDE RECORDS SUMMARY | 2025-07-07 14:28 | XMS_ITS | Encounter Summary ---
Author Organization [facility] Address [address] [place] [address] Care Team Providers Care Glass Washer Name Role Phone Cabrera Dupont MD Primary Care Provider [phone] Source Comments In the event this information is protected by the Federal Confidentiality of Alcohol and Drug AbusePatient Records regulations: The Federal rules restrict any use of the information to criminally investigate or prosecute any alcohol or drug abuse patient.[facility] Encounter Details Date Type Department Care Team (Late st Contact Info) Description 10/01/2019 Get Medical Advice Endocrinology [address] [place] [address] Mandie Osborne MD [address] [facility] [address] [address] Medication Question (Not Renewal) Social [...] on filedocumented in this encounter Care Teams Glass Washer Relationship Specialty Start Date End Date Cabrera Dupont MD PCP - General Family Medicine 01/21/19 documented as of this encounter
--- OUTSIDE RECORDS SUMMARY | 2025-07-07 14:28 | XMS_ITS | Encounter Summary ---
Author Organization [facility] Address [address] [place] [address] Care Team Providers Care Automotive Sales Representative Name Role Phone GaneshCarlos DO Primary Care Provider Mandie Osborne MD Unavailable [phone] Cabrera Dupont MD Primary Care Provider [phone] Source Comments In the event this information is protected by the Federal Confidentiality of Alcohol and Drug AbusePatient Records regulations: The Federal rules restrict any use of the information to criminally investigate or prosecute any alcohol or drug abuse patient.[facility] Encounter Details Date Type Department Care Team (Late st Contact Info) Description 04/16/2015 Get Medical Advice Endocrinology [address] [place] [address] Mandie Osborne MD 18[address] [facility] [address] [address] RE: Medication Question (Not Renewal) [...] 1:39 PM EDT Caio, Radha jesenia L (Factory Worker), MANUFACTURER * Are you blind or do you have serious difficulty seeing, even when wearing glasses? Answer Date of Assessment Author No 02/23/2015 1:39 PM EDT Caio, Va jesenia L (Factory Worker), MANUFACTURER * Do you have serious difficulty walking or climbing stairs? Answer Date of Assessment Author No 02/23/2015 1:39 PM EDT Caio, Va jesenia L (Factory Worker), MANUFACTURER * Do you have difficulty dressing or bathing? Answer Date of Assessment Author No 02/23/2015 1:39 PM EDT Caio, Va jesenia L (Factory Worker), MANUFACTURER * Because of a physical, mental, or emotional condition, do you have difficulty doing errands alone such as visiting a doctor's office or shopping? Answer Date of Assessment Author No 02/23/2015 1:39 PM EDT Caio, Va jesenia L (Factory Worker), MANUFACTURER documented as of this encounter Mental Status * Because of a physical, mental, or emotional condition, do you have serious difficulty concentrating, remembering, or making decisions? Answer Entry Date Author No 02/23/2015 1:39 PM EDT Caio Radha jesenia L (Factory Worker), MANUFACTURER documented in this encounter Miscellaneous Notes * [...] on filedocumented in this encounter Care Teams Automotive Sales Representative Relationship Specialty Start Date End Date Carlos Andersen DO PCP - General Family Medicine 05/13/14 01/20/19 Cabrera Dupont MD PCP - General Family Medicine 01/21/19 Mandie Osborne MD Primary Staff Physician Cardiology 02/09/15 6 documented as of this encounter
--- OUTSIDE RECORDS SUMMARY | 2025-07-07 14:28 | XMS_ITS | Clinical Summary ---
Author Organization [facility] Address [address] [place], [place] [id number] Care Team Providers Care General Matcher Name Role Phone Cabrera Dupont MD Primary Care Provider [phone] Allergies Active Allergy Reactions Criticality Noted Date [...] Take by mouth once daily. Active Insulin Zenda, Disposable, (BD ULTRAFINE III MINI PEN) 31 [...] N ot on file 10/16/2020 Data from: https://www.neighborhoodatlas.medicine.[email or web address]/. Last address used for calculation Not on [...] 08/12/2018 08/12/2017, 08/04/2014 Lipid Screening 08/24/2021 08/24/2016, 04/1 03/2015, 12/02/2013, Additional history exists Diabetes Screening 01/21/2022 01/21/2019, 0 01/21/2019, 08/24/2016, Additional history exists Advance Directive Discussion 11/11/2024 Influenza Vaccine (#1) 2025 8, 07/19/2018, 08/21/2017, Additional history exists RSV Vaccine [...] COMP METABOLIC PANEL (01/21/2019 4:04 PM EDT) Protein, Total 7.2 6.3 - 8.0 g/dL 01/21/2019 10:09 PM EDT [facility] Albumin 4.3 3.9 - 4.9 g/dL 01/21/2019 10:09 PM EDT [facility] Calcium 11.9(H) 8.5 - 10.2 mg/dL 01/21/2019 10:09 PM EDT [facility] Bilirubin, Total 0.4 0.2 - 1.3 mg/dL 01/21/2019 10:09 PM EDT [facility] Alkaline Phosphatase 61 38 - 113 U/L 01/21/2019 10:09 PM EDT [facility] AST 15 14 - 40 U/L 01/21/2019 10:09 PM EDT [facility] Glucose 82 74 - 99 mg/dL 01/21/2019 10:09 PM EDT [facility] Comment: The [place] Diabetes Association (ADA) provides guidance for cutoff [...] Standards of Medical Care in Diabetes 2016, [place] [employer]. Diabetes Care. 2016.39(Suppl 1). BUN 11 9 - 24 mg/dL 01/21/2019 10:09 PM [facility] Creatinine 0.97 0.73 - 1.22 mg/dL 01/21/2019 10:09 PM [facility] Sodium 148(H) 136 - 144 mmol/L 01/21/2019 10:09 PM [facility] Potassium 4.7 3.7 - 5.1 mmol/L 01/21/2019 10:09 PM [facility] Chloride 108(H) 97 - 105 mmol/L 01/21/2019 10:09 PM [facility] CO2 25 22 - 30 mmol/L 01/21/2019 10:09 PM [facility] Anion Gap 15 9 - 18 mmol/L 01/21/2019 10:09 PM [facility] ALT 16 10 - 54 U/L 01/21/2019 10:09 PM [facility] eGFR- >60 01/21/2019 10:09 PM [facility] eGFR-All Other Races >60 . 01/21/2019 10:09 PM [facility] Comment: eGFR (Estimated GFR) Units of measure: [...] 4:04 PM EDT 01/21/2019 4:06 PM EDT us Mandie Osborne MD LABORATORY Final Resul t Performing Organization Address [facility]/ZIP Co de Phone Number [facility] [address] [place] [address] [facility] [address] [place] [address] * (ABNORMAL) LIPID PANEL BASIC (08/24/2016 11:36 AM EDT) Triglyceride 209(H) 30 - 149 mg/dL 08/24/2016 2:08 PM EDT [facility] Cholesterol, Total 180 100 - 199 mg/dL 08/24/2016 2:08 PM EDT [facility] HDL Cholesterol 41(L) >45 mg/dL 6 2:08 PM EDT [facility] VLDL Cholesterol 42(H) 6 - 40 mg/dL 08/24/2016 2:08 PM EDT [facility] LDL Cholesterol, Calculated 97 60 - 129 mg/dL 08/24/2016 2:08 PM EDT [facility] Fasting Time 12 hrs 08/24/2016 11:36 AM EDT [facility] TC:HDL Ratio 4.39 1.00 - 5.00 08/24/2016 2:08 PM EDT [facility] LDL:HDL Ratio 2.37 0.50 - 3.55 08/24/2016 2:08 PM EDT [facility] Non HDL Cholesterol 139 90 - 159 mg/dL 08/24/2016 2:08 PM EDT [facility] Blood specimen (specimen) BLOOD SPECIMEN / Unknown 08/24/2016 11:36 AM EDT 08/24/2016 11:40 AM EDT us Mandie Osborne MD LABORATORY Final Resul t Performing Organization Address City/[facility]/ZIP Co de Phone Number [facility] [address] [place] [address] from Last 3 Months or Most Recently Relevant to Health Maintenance Insurance [facility] [address] [facility] MEDICARE ADVANTAGE PPO [facility] [address] GENERIC Care Teams General Matcher Relationship Specialty Start Date End Date Cabrera Dupont MD PCP - General Family Medicine 01/21/19
--- OUTSIDE RECORDS SUMMARY | 2025-07-07 14:28 | XMS_ITS | Encounter Summary ---
Author Organization [facility] Address [address] [place] [address] Care Team Providers Care Cartography Teacher Name Role Phone Carlos Andersen DO Primary Care Provider Cabrera Dupont MD Primary Care Provider [phone] Source Comments In the event this information is protected by the Federal Confidentiality of Alcohol and Drug AbusePatient Records regulations: The Federal rules restrict any use of the information to criminally investigate or prosecute any alcohol or drug abuse patient.[facility] Encounter Details Date Type Department Care Team (Late st Contact Info) Description 02/04/2017 Patient Msg Endocrinology [address] [place] [address] Mandie Osborne MD [address] [facility] [address] [address] RE: Request an Appointment Social [...] on filedocumented in this encounter Care Teams Cartography Teacher Relationship Specialty Start Date End Date Carlos Andersen DO PCP - General Family Medicine 05/13/14 01/20/19 Cabrera Dupont MD PCP - General Family Medicine 01/21/19 documented as of this encounter
--- OUTSIDE RECORDS SUMMARY | 2025-07-07 14:28 | XMS_ITS | Encounter Summary ---
Author Organization [facility] Address [address] [place] [address] Care Team Providers Care Waxer Tender Name Role Phone GaneshCarlos DO Primary Care Provider Mandie Osborne MD Unavailable [phone] Cabrera Dupont MD Primary Care Provider [phone] Source Comments In the event this information is protected by the Federal Confidentiality of Alcohol and Drug AbusePatient Records regulations: The Federal rules restrict any use of the information to criminally investigate or prosecute any alcohol or drug abuse patient.[facility] Encounter Details Date Type Department Care Team (Late st Contact Info) Description 09/12/2014 Get Medical Advice Endocrinology [address] [place] [address] Mandie Osborne MD [address] [facility] [address] [address] RE: Non-Urgent Medical Question Social [...] on filedocumented in this encounter Care Teams Waxer Tender Relationship Specialty Start Date End Date Carlos Andersen DO PCP - General Family Medicine 05/13/14 01/20/19 Cabrera Dupont MD PCP - General Family Medicine 01/21/19 Mandie Osborne MD Primary Staff Physician Cardiology 02/09/15 6 documented as of this encounter
--- OUTSIDE RECORDS SUMMARY | 2025-07-07 14:29 | XMS_ITS | Encounter Summary ---
Author Organization [facility] Address [address] [place] [address] Phone Care Team Providers Care Supervisor Body Assembly Name Role Phone Cabrera Dupont MD Primary Care Provider [phone] Encounter Details Date Type Department Care Team (Late st Contact Info) Description 06/27/2022 Orders Only [facility] [address] [place] [address] Conversion, Onbase Social History Tobacco Use Types [...] filedocumented in this encounter Care Teams Supervisor Body Assembly Relationship Specialty Start Date End Date Cabrera Dupont MD [address] [facility] [place] [address] PCP - General 11/30/20 documented as of this encounter
--- OUTSIDE RECORDS SUMMARY | 2025-07-07 14:29 | XMS_ITS | Encounter Summary ---
Author Organization [facility] Address [address] [facility] [place] [address] Care Team Providers Care Shop Tech Name Role Phone Ric Ross MD Unavailable [phone] Haritha Argueta MD Primary Care Provider [phone] Haritha Argueta MD Primary Care Provider [phone] Encounter Details Date Type Department Care Team (Late st Contact Info) Description 03/23/2022 Abstract [facility] [address] [place] [id number] Ever Oropeza DO [address] [place] [address] Social History Tobacco Use Types Packs/Day Years Used Date Smoking Tobacco: Former Cigarettes 1 1990 Alcohol Use Standard Drinks/Week Comments Never [...] on filedocumented in this encounter Care Teams Shop Tech Relationship Specialty Start Date End Date Ric Ross MD [address] [id number] PCP - Sav SEWELL 11/11/21 05/10/22 Harihta Argueta MD [address] [address] PCP - General Family Medicine 03/23/24 06/29/25 Haritha Argueta MD [address] [place] [phone] PCP - General Family Medicine 06/30/25 documented as of this encounter
--- OUTSIDE RECORDS SUMMARY | 2025-07-07 14:29 | XMS_ITS | Encounter Summary ---
Author Organization [facility] Address [address] [place] [address] Care Team Providers Care Scarifier Operator Name Role Phone Cabrera Dupont MD Primary Care Provider [phone] Source Comments In the event this information is protected by the Federal Confidentiality of Alcohol and Drug AbusePatient Records regulations: The Federal rules restrict any use of the information to criminally investigate or prosecute any alcohol or drug abuse patient.[facility] Encounter Details Date Type Department Care Team (Late st Contact Info) Description 02/24/2019 Get Medical Advice Endocrinology [address] [place] [address] Mandie Osborne MD [address] [facility] [address] [address] RE: Medication Question (Not [...] on filedocumented in this encounter Care Teams Scarifier Operator Relationship Specialty Start Date End Date Cabrera Dupont MD PCP - General Family Medicine 01/21/19 documented as of this encounter
--- OUTSIDE RECORDS SUMMARY | 2025-07-07 14:29 | XMS_ITS | Encounter Summary ---
Author Organization [facility] Address [address] [place] [address] Care Team Providers Care Instant Print Operator Name Role Phone Haritha Argueta MD Primary Care Provider [phone] Reason for Visit * Reason Comments Med Refill Encounter Details Date Type Department Care Team ([facility] st Contact Info) Description 12/08/2023 Refill [facility] [address] [place] [address] Janee Rayo, ADULT HEALTH CLINICAL NURSE SPECIALIST [address] [place] [phone] Acute on chronic systolic congestive heart failure [...] place to sleep or slept in a fpc (including now)? No 05/02/2023 Hunger Vital Sign [...] Description 07/16/2025 1:40 PM EDT Office Visit [facility] [address] [place] [address] Rc Starr, ADULT HEALTH CLINICAL NURSE SPECIALIST [address] [place] [address] documented as of this encounter Visit Diagnoses Diagnosis Acute on chronic systolic congestive heart failure (CMS/HCC) documented in this encounter Care Teams Instant Print Operator Relationship Specialty Start Date End Date Haritha Argueta MD [address] [facility] [address] PCP - General 10/16/22 documented as of this encounter
--- OUTSIDE RECORDS SUMMARY | 2025-07-07 14:29 | XMS_ITS | Clinical Summary ---
Author Organization [facility] Healthcare Address [address] [place] [address] Care Team Providers Care Tractor Crane Engineer Name Role Phone Haritha Argueta MD Primary Care Provider [phone] Allergies No known active allergies Medications Eliquis [...] 25.0-29.9) 12/29/2024 Coronary artery disease invo [place]ving [place] coronary artery of [place] heart without angina pectoris 09/16/2024 Diabetes mellitus [...] DCCV on 10/24. Continue Eliquis and Carvedilol. [id number]- 7, D/W Dr Espinoza- EP and he recommends pt to start amiodarone for antiarrythmic and plan for outpt cardioversion PFO (patent foramen ovale) ([facility]) 11/28/2022 Overview (07/09/2024): Last Assessment & Plan: [...] (07/09/2024): Added automatically from request for surgery [id number] Last Assessment & Plan: [id number]= 6 Continue eliquis anticoagulation. Continue coreg- rate is well controlled and pt remains in Sinus rhythm RTC [address] Espinoza Persistent atrial fibrillation 10/16/2022 Overview (07/09/2024): Last Assessment & Plan: -[id number] - 4 (age, hx cva, DM, htn) [...] Encounters Date Type Department Care Team Description 06/29/2025 Clinisync Result Encounter [facility] External Department Unsolicited Henrry Spivey MD from Last 3 Months Family History Medical History Relation Name Comments Diabetes type II Mother Relation Name Status Comments Father Mother Social History Tobacco Use Types Packs/Day Years Used Date Smoking Tobacco: Former Cigarettes 1 04 12 967 1990 Smokeless Tobacco: Never Tobacco Cessation:Counseling Given: [...] 02/11/2025 1:12 PM EDT Plan of Treatment Health Maintenance Due Date Last Done Comments CT Colonography 1950 FIT-DNA 1950 FIT 1950 FOBT 1950 Sigmoidoscopy 1950 Pneumococcal Vaccine: 65+ Ye ars (2 of 2 - PCV) 08/12/2018 08/12/2017, 08/04/2014 Influenza Vaccine (#1) 2025 4, 10/12/2023, 08/15/2022, Additional history exists Colonoscopy 04/14/2034 04/14/2024 Colorectal Cancer Screening 04/14/2034 Procedures Procedure Name Priority Date/Time Associated Diagnosis Comments US THYROID 06/29/2025 12:30 PM EDT from Last 3 Months Results * US thyroid (06/29/2025 12:30 PM EDT) Anatomical Region Laterality Modality Head, Neck Ultrasound 06/29/2025 12:3 0 PM EDT Narrative 06/29/2025 12:32 [place] [address] Ultrasound Report Signed Patient: GADIEL LIANG MR#: [id number] : 1950 Acct:[id number] Age/Sex: 74 / M ADM Date: 06/29/25 Loc: US Attending Dr: Henrry Spivey M.D. Ordering Physician: Henrry Spivey M.D. Date of Service: 06/29/25 Procedure(s): US thyroid Accession Number(s): [id number] cc: Haritha Argueta M.D.; Henrry Spivey M.D. [address] [address] Patient Name: GADIEL LIANG MRN: [id number] date: 1950 Sex: M Assigned Patient Location: US Current Patient Location: US Accession/Order Number: [id number] Exam Date: 06/29/2025 12:27 Report Date: 06/29/2025 12:30 At the request of: HENRRY SPIVEY MD Procedure: US thyroid Thyroid Ultrasound HISTORY: [...] Coello M.D. 06/29/2025 12:30 PM Dictation Location: [employer] Electronically authenticated by: [id number] Y Date: 06/29/2025 12:30 Dictated By: Rocky Coello D.O. Signed By: 06/29/25 1232 DD/ 1230 TD/TT: Label Maker: Procedure Note Radiology, Radiologist, MD - 06/29/2025 [place] [address] Ultrasound Report Signed Patient: GADIEL LIANG EMR#: [id number] : 1950cct:[id number] Age/Sex: 74 / MADM Date: 06/29/25 Loc: US Attending Dr: Henrry Spivey M.D. Ordering Physician: Henrry Spviey M.D. Date of Service: 06/29/25 Procedure(s): US thyroid Accession Number(s): [id number] cc: Haritha Argueta M.D.; Henrry Spivey M.D. The [place] [id number] Patient Name: GADIEL LIANG MRN: [id number] date: 1950 Sex: M Assigned Patient Location: US Current Patient Location: US Accession/Order Number: [id number] Exam Date: 06/29/2025 12:27 Report Date: 06/29/2025 12:30 At the request of: HENRRY SPIVEY MD Procedure: US thyroid Thyroid Ultrasound HISTORY: Follow-up thyroid nodules COMPARISON: 12/23/2024 The RIGHT lobe measures 4.6 x 1.2 x 2.3cm. LEFT lobe measures 3.8 x 1.4 x 1.7 cm. Isthmus has an AP dimension of 0.5cm. Heterogeneous thyroid parenchyma throughout. Right mid 4 mm nodule. 9 mm right mid thyroid nodule. 5 mm left mid thyroid nodule. 1 cm leftinferior thyroid nodule.. Similar prior examination. Predominant cystic and solid nodules. No new nodules. No enlarging nodules. No microcalcifications identified. Symmetric blood flow of the thyroid gland identified. US/US thyroid IMPRESSION: Similar small bilateral thyroid nodules. Follow-up assessmentin one year recommended. Impression dictated by: Rocky Coello M.D. 06/29/2025 12:30 PM Dictation Location: [place] [address] Electronically authenticated by: [id number] Y Date: 2:30 Dictated By: Rocky Coello D.O. Signed By:06/29/25 1232 DD/ 1230 TD/TT: Label Maker: us Henrry Spivey MD IMG US PROCEDURES Final Resul t from Last 3 Months Insurance [employer] MEDICARE ADVANTAGE Care Teams Tractor Crane Engineer Relationship Specialty Start Date End Date Haritha Argueta MD [address] [place] [address] PCP - General Family Medicine 06/30/25
--- OUTSIDE RECORDS SUMMARY | 2025-07-07 14:29 | XMS_ITS | Encounter Summary ---
Author Organization [facility] Address [address] [place] [address] Care Team Providers Care Applications Programmer Analyst Name Role Phone Haritha Argueta MD Primary Care Provider [phone] Reason for Visit * Reason Comments Med Refill Encounter Details Date Type Department Care Team (Late st Contact Info) Description 05/26/2023 Refill [facility] Ortho Surgery [address] [place] [address] Alta Schulz, RACHAEL [address] [place] [address] Paroxysmal atrial fibrillation (CMS/HCC); S/P [...] and heating? Not hard at all 05/02/2023 [place] Safety & Environment Answer Date Rec orded [...] place to sleep or slept in a mcc (including now)? No 05/02/2023 Hunger Vital Sign [...] Description 07/16/2025 1:40 PM EDT Office Visit [facility] [address] [place] [address] Rc Starr, CASING FLUID TENDER [address] [place] [address] documented as of this encounter Visit Diagnoses Diagnosis Paroxysmal atrial fibrillation (CMS/HCC) Atrial fibrillation S/P ablation of atrial fibrillation Other postprocedural status documented in this encounter Care Teams Applications Programmer Analyst Relationship Specialty Start Date End Date Haritha Argueta MD [address] [facility] #A PCP - General 10/16/22 documented as of this encounter
--- OUTSIDE RECORDS SUMMARY | 2025-07-07 14:29 | XMS_ITS | Encounter Summary ---
Author Organization [facility] Address [address] [place] [address] Phone Care Team Providers Care Desktop Architect Name Role Phone Cabrera Dupont MD Primary Care Provider [phone] Encounter Details Date Type Department Care Team (Late st Contact Info) Description 07/04/2022 Orders Only [facility] [address] [place] [address] Conversion, Onbase Social History Tobacco Use Types [...] on filedocumented in this encounter Care Teams Desktop Architect Relationship Specialty Start Date End Date Cabrera Dupont MD [address] [facility] [place] [address] PCP - General 11/30/20 documented as of this encounter
--- OUTSIDE RECORDS SUMMARY | 2025-07-07 14:29 | XMS_ITS | Patient Health Record ---
Author Organization [facility] Address [address] [place] [id number] Care Team Providers Care Ore Sampler Name Role Phone Cabrera Calderón Unavailable [phone] . Unavailable Unavailabl [...] stop date) Former Smoker NA - 02/01/1992 Social History Social History Social Info Question Answer Notes Smoking: Are you a: former smoker How long has it been since you last smoked? > 10 years When did you stop smoking? 02/01/1992 Tobacco Non-User Additional Findings: Ex-heavy cigarette smoker (20-30/day) 1 pack/day Total Pack Years = 20 Alcohol screen Did you have a drink containing alcohol in the past year? No Interpretation Negative Additional Details Category Social Info Options Details Social History Occupation: Retired Recreational Drug Use: No Problems Problem Type SNOMED Code ICD Code Onset Dates Problem Status W/U Status Risk Notes Problem Onychocryptosis (401511541) Onychocryptosis (703.0) Active confirmed tibial border Problem Pain in limb (73717254) Pain in limb (729.5) Active confirmed Problem Type II diabetes mellitus without complication (625339090) Diabetes mellitus, type II, w/o complications, not stated as uncontrolled (250.00) Active confirmed Encounters Encounter Location Date Provider Diagnosis [facility] [address] [id number] 09/05/2024 Provider Migration Plan Of Treatment No Information Insurance Providers Payer Name Payer Address Payer Phone Subscriber Number Group Number Insured Name Patient Relationship to Insured Coverage Start Date Coverage End Date [employer] Benefits [address] [address] [place] [address] 1603 [id number] Gadiel Liang Self - patient is the insured Medical (General) History Medical History History ICD Code Diabetes Mellitus, type II, non-insulin requiring Hypercholestrolemia Surgical History Surgery Date(Month/Year) Appendectomy Tonsillectomy Shoulder Hospitalization History Reason Date(Month/Year) Related to above listed surgeries
--- OUTSIDE RECORDS SUMMARY | 2025-07-07 14:29 | XMS_ITS | Encounter Summary ---
Author Organization [facility] Address [address] [place] [address] Care Team Providers Care Ultrasound Technologist Name Role Phone Haritha Argueta MD Primary Care Provider [phone] Reason for Visit * Reason Comments Med Refill Encounter Details Date Type Department Care Team ([facility] st Contact Info) Description 06/04/2023 Refill [facility] [address] [place] [address] Caryn Gillette PA-C [address] [place] [address] Acute on chronic systolic heart failure (CMS/[facility]) Social History Tobacco Use Types Packs/Day Years [...] and heating? Not hard at all 05/02/2023 [place] Safety & Environment Answer Date Rec orded [...] Upcoming Encounters Date Type Department Care Team ([facility] st Contact Info) Description 07/16/2025 1:40 PM EDT Office Visit [facility] [address] [place] [address] Rc Starr, MANAGER OF HEALTH [address] [place] [address] documented as of this encounter Visit Diagnoses Diagnosis Acute on chronic systolic heart failure (CMS/HCC) Acute on chronic systolic heart failure documented in this encounter Care Teams Ultrasound Technologist Relationship Specialty Start Date End Date Haritha Argueta MD [address] [facility] #A PCP - General 10/16/22 documented as of this encounter
--- OUTSIDE RECORDS SUMMARY | 2025-07-07 14:30 | XMS_ITS | Encounter Summary ---
Author Organization [facility] Address [address] [place] [address] Care Team Providers Care National Account Manager Name Role Phone Haritha Argueta MD Primary Care Provider [phone] Encounter Details Date Type Department Care Team (Late st Contact Info) Description 06/29/2025 Clinisync Result Encounter [facility] External Department Unsolicited Henrry Spivey MD [address] [place] [address] Social History Tobacco Use Types Packs/Day Years Used Date Smoking Tobacco: Former Cigarettes 1 24 1 967 - 1990 Smokeless Tobacco: Never Alcohol Use Standard Drinks/Week Comments Never 0 (1 standard drink = 0.6 oz pur e alcohol) Sex and Gender Information Value Date Recorded Sex Assigned at Not on file Legal Sex Male 6:38 PM EDT Gender Identity Not on file Sexual Orientation Not on file documented as of this encounter Plan of Treatment Not on file documented as of this encounter Procedures Procedure Name Priority Date/Time Associated Diagnosis Comments US THYROID 06/29/2025 12:30 PM EDT documented in this encounter Results * US thyroid (06/29/2025 12:30 PM EDT) Anatomical Region Laterality Modality Head, Neck Ultrasound 06/29/2025 12:3 0 PM EDT Narrative 06/29/2025 12:32 PM EDT The [address] [address] Ultrasound Report Signed Patient: GADIEL LIANG MR#: [id number] : 1950 Acct:[id number] Age/Sex: 74 / M ADM Date: 06/29/25 Loc: US Attending Dr: Henrry Spivey M.D. Ordering Physician: Henrry Spivey M.D. Date of Service: 06/29/25 Procedure(s): US thyroid Accession Number(s): [id number] cc: Haritha Argueta M.D.; Henrry Spivey M.D. The [place] [address] Patient Name: GADIEL LIANG MRN: [id number] date: 1950 Sex: M Assigned Patient Location: US Current Patient Location: US Accession/Order Number: [id number] Exam Date: 06/29/2025 12:27 Report Date: 06/29/2025 [...] Coello M.D. 06/29/2025 12:30 PM Dictation Location: [place] [address] Electronically authenticated by: [id number] Y Date: 06/29/2025 12:30 Dictated By: Rocky Coello D.O. Signed By: 06/29/25 1232 DD/ 1230 TD/TT: Patrol Police Lieutenant: Procedure Note Radiology, Radiologist, - 06/29/2025 [place] [address] Ultrasound Report Signed Patient: GADIEL LIANG EMR#: [id number] : 1950cct:[id number] Age/Sex: 74 / MADM Date: 06/29/25 Loc: US Attending Dr: Henrry Spivey M.D. Ordering Physician: Henrry Spivey M.D. Date of Service: 06/29/25 Procedure(s): US thyroid Accession Number(s): [id number] cc: Haritha Argueta M.D.; Henrry Spivey M.D. [facility] [address] [place] [address] Patient Name: GADIEL LIANG MRN: [id number] date: 1950 Sex: M Assigned Patient Location: US Current Patient Location: US Accession/Order Number: [id number] Exam Date: 06/29/2025 12:27 Report Date: 06/29/2025 [...] Coello M.D. 06/29/2025 12:30 PM Dictation Location: [place] [address] Electronically authenticated by: [id number] Y Date: 2:30 Dictated By: Rocky Coello D.O. Signed By:06/29/25 1232 DD/ 1230 TD/TT: Patrol Police Lieutenant: us Henrry Spivey MD IMG US PROCEDURES Final Resul t documented in this encounter Visit Diagnoses Not on filedocumented in this encounter Care Teams National Account Manager Relationship Specialty Start Date End Date Haritha Argueta MD PCP - General Family Medicine 03/23/24 06/29/25 documented as of this encounter
--- OUTSIDE RECORDS SUMMARY | 2025-07-07 14:30 | XMS_ITS | Clinical Summary ---
Author Organization [facility] Address [address] [place] [address] Phone Care Team Providers Care Cost Estimating Manager Name Role Phone Cabrera Dupont MD Primary Care Provider [phone] Allergies No known active allergies Medications Eliquis [...] (Glucophage) 500 mg tablet Take by mouth. A ctive BD Ultra-Fine Mini Pen Needle 31 gauge [...] (40 mg) by mouth once daily. Active testosterone 1 % (50 mg/5 gram) gel in packetIndicatio ns:Hypopituitar ism (Multi),Hypogon adism male,Hyperparat hyroidism (Multi),Hyperpr olactinemia (Multi),Type 2 diabetes mellitus without complication, with long-term current use of insulin Place 1 packet (50 mg) on the skin once daily. 90 packet 1 4 Active cabergoline (Dostinex) 0.5 mg tabletIndicatio ns:Healthcare maintenance Take 1 tablet (0.5 mg) by mouth every other day. Please schedule follow up for further refills. 15 tablet 6 5 Active Lantus Solostar U-100 Insulin 100 unit/mL (3 mL) penIndications: Hypopituitarism (Multi),Hypogon adism male,Hyperparat hyroidism (Multi),Hyperpr olactinemia (Multi),Type 2 diabetes mellitus without complication, with long-term current use of insulin Inject 35 Units under the skin once daily in the morning. Patient needs to schedule appointment for further refills. 15 mL 5 Active levothyroxine (Synthroid, Levoxyl) 75 mcg tabletIndicatio ns:Hypopituitar ism (Multi),Hypogon adism male,Hyperparat hyroidism (Multi),Hyperpr olactinemia (Multi),Type 2 diabetes mellitus without complication, with long-term current use of insulin Take 1 tablet (75 mcg) by mouth once daily. 90 tablet 3 5 Active levothyroxine (Synthroid, Levoxyl) 75 mcg tabletIndicatio ns:Hypopituitar ism (Multi),Hypogon adism male,Hyperparat hyroidism (Multi),Hyperpr olactinemia (Multi),Type 2 diabetes mellitus without complication, with long-term current use of insulin Take 1 tablet (75 mcg) by mouth once daily. 90 tablet 3 4 025 Discontin ued(Ineff ective) Encounters Date Type Department Care Team Description 06/11/2025 [place] [address] [place] [address] Mandie Osborne MD Hypopituitarism (Multi); Hypogonadism male; Hyperparathyroidism (Multi); Hyperprolactinemia (Multi); Type 2 diabetes mellitus without complication, with long-term current use of insulin 05/12/[address] [place] [address] Mandie Osborne MD Hypopituitarism (Multi); Hypogonadism male; Hyperparathyroidism (Multi); Hyperprolactinemia (Multi); Type 2 diabetes mellitus without complication, with long-term current use of insulin from Last 3 Months Social History Tobacco [...] (AWV) 1950 Sigmoidoscopy 1950 TSH Level 1950 MMR Vaccines (1 of 1 - Stand tristin series) 1952 Diabetes: Retinopathy Screening 1961 Hepatitis C Screening 1969 Pneumococcal Vaccine (1 of 2 - PCV) 1970 DTaP/Tdap/Td Vaccines (1 - Tdap) 1973 Zoster Vaccines (1 of 2) 2001 RSV High Risk: (Elderly (60+ ) or Population) (1 - Risk 60-74 years 1-dose series) 2011 COVID-19 Vaccine ( - 2023-2 5 season) 2024 Influenza Vaccine (#1) 2025 HIB Vaccines Aged Out No longer [...] MEDICARE ADVANTAGE [employer] MEDICARE ADVANTAGE Care Teams Cost Estimating Manager Relationship Specialty Start Date End Date Cabrera Dupont MD [address] [facility] [place] [address] PCP - General 11/30/20
--- NOTE | 2025-07-07 14:46 | XR_ITS ---
The [address] [address] Patient Name: SANTA SMITH MRN: [id number] date: 1950 Sex: M Assigned Patient Location: ER Current Patient Location: ER Accession/Order Number: [id number] Exam Date: 07/07/2025 14:54 Report Date: 07/07/2025 15:16 At the request of: COLTEN MOLINA DO Procedure: XR chest 2V Plain film chest 2 view HISTORY: Shortness of breath. Dizziness. COMPARISON: 03/07/2024 FINDINGS: SUPPORT DEVICES: None POSTSURGICAL CHANGES: None HEART: Within normal limits PULMONARY ALTAF: Within normal limits MEDIASTINUM: Unremarkable LUNGS AND PLEURA: No acute lung process, pleural effusion or pneumothorax identified. BONY STRUCTURES: Intact ADDITIONAL FINDINGS None XR/XR chest 2V IMPRESSION: No acute process. Impression dictated by: Rocky Coello M.D. 07/07/2025 3:16 PM Dictation Location: [employer] Electronically authenticated by: [id number] Y Date: 07/07/2025 15:16
--- NOTE | 2025-07-07 14:46 | ECG_ITS ---
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
--- NOTE | 2025-07-07 14:46 | ED.GENADUL1 ---
HPI HPI - General Adult General Chief complaint: Dizziness Stated complaint: SOB, DIZZINESS Time Seen by Provider: 07/07/25 14:28 Source: patient Mode of arrival: walk-in Limitations: no limitations History of Present Illness HPI narrative: Patient is a 74-year-old male presenting to the emergency department for evaluation of dyspnea. Patient states that over the last week, he has had progressively worsening exertional dyspnea. He states he is only able to walk approximately 10 to 20 feet before becoming short of breath. He states that the last time this happened was 2 years ago when he was diagnosed with heart failure. He denies orthopnea or PND. He states he had a left heart cath done at that time, which was clean . He also had a cardiac ablation at that time for atrial fibrillation. He is on Eliquis twice daily with no missed doses. He states he gained approximately 3 pounds over the last week, and he is concerned for fluid retention. He denies any URI symptoms, cough, fevers, chills, or infectious-like symptoms. Denies history of DVT/PE or leg swelling. Denies history of previous PR, coronary stents, or CABG. Denies black or tarry stools. No hematochezia. Related Data Home Medications ?Medication ?Instructions ?Recorded ?Confirmed apixaban 5 mg tablet (Eliquis) 5 mg PO Q12H 03/07/24 07/07/25 bupropion HCl 150 mg 24 hr tablet, 150 mg PO DAILY 03/07/24 07/07/25 extended release cabergoline 0.5 mg tablet 0.5 mg PO .every other day 03/07/24 07/07/25 carvedilol 6.25 mg tablet 6.25 mg PO Q12H 03/07/24 07/07/25 dapagliflozin propanediol 10 mg 10 mg PO DAILY 03/07/24 07/07/25 tablet (Farxiga) escitalopram oxalate 10 mg tablet 10 mg PO DAILY 03/07/24 07/07/25 esomeprazole magnesium 40 mg 40 mg PO DAILY 03/07/24 07/07/25 capsule,delayed release furosemide 40 mg tablet 40 mg PO DAILY PRN edema 03/07/24 07/07/25 insulin glargine 100 unit/mL (3 35 unit subcut DAILY 03/07/24 07/07/25 mL) subcutaneous pen (Lantus Solostar U-100 Insulin) levothyroxine 75 mcg tablet 75 mcg PO DAILY 03/07/24 07/07/25 (Synthroid) lisinopril 5 mg tablet 5 mg PO DAILY 03/07/24 07/07/25 metformin 500 mg tablet 500 mg PO DAILY 03/07/24 07/07/25 spironolactone 25 mg tablet 12.5 mg PO DAILY 03/07/24 07/07/25 testosterone 1 % (50 mg/5 gram) 1 packet topical DAILY 03/07/24 03/07/24 transdermal gel packet rosuvastatin 40 mg tablet (Crestor) 40 mg PO DAILY 07/07/25 07/07/25 Allergies Allergy/AdvReac Type Severity Reaction Status Date / Time No Known Drug Allergies Allergy Verified 07/07/25 14:25 Opioid HPI Opioid Management Most Recent Opioid Data: Last Pain Assessment Today, 18:00 Last ORT Total Score 3 Today, 17:45 Last ORT Risk Category Low Risk Today, 17:45 Review of Systems ROS Status of ROS 10 or more systems reviewed and unremarkable except as noted in history and below [facility] Medical History (Updated 07/07/25 @ 16:57 by Gamal Ellis DO) Cataract ?H26.9 - Unspecified cataract (ICD-10) Carpal tunnel syndrome of right wrist ?G56.01 - Carpal tunnel syndrome, right upper limb (ICD-10) Right shoulder tendonitis ?M77.8 - Other enthesopathies, not elsewhere classified (ICD-10) Left shoulder tendonitis ?M77.8 - Other enthesopathies, not elsewhere classified (ICD-10) Afib ?I48.91 - Unspecified atrial fibrillation (ICD-10) CHF (congestive heart failure) ?I50.9 - Heart failure, unspecified (ICD-10) TIA (transient ischemic attack) ?G45.9 - Transient cerebral ischemic attack, unspecified (ICD-10) Ischemic stroke of frontal lobe ?I63.9 - Cerebral infarction, unspecified (ICD-10) Hiatal hernia ?K44.9 - Diaphragmatic hernia without obstruction or gangrene (ICD-10) Hyperlipidemia ?E78.5 - Hyperlipidemia, unspecified (ICD-10) GERD (gastroesophageal reflux disease) ?K21.9 - Gastro-esophageal reflux disease without esophagitis (ICD-10) Hypothyroid ?E03.9 - Hypothyroidism, unspecified (ICD-10) Type 2 diabetes mellitus ?E11.9 - Type 2 diabetes mellitus without complications (ICD-10) 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 - Benign neoplasm of pituitary gland (ICD-10) Surgical History (Updated 07/07/25 @ 15:08 by Portia Cheney) H/O parathyroidectomy ?Z98.890 - Other specified postprocedural states (ICD-10) ?Z90.89 - Acquired absence of other organs (ICD-10) S/P removal of thyroid nodule ?Z98.890 - Other specified postprocedural states (ICD-10) History of cardiac ablation for atrial fibrillation ?Z98.890 - Other specified postprocedural states (ICD-10) ?I48.91 - Unspecified atrial fibrillation (ICD-10) Social History Highest level of school completed/degree received: high school graduate Little interest or pleasure in doing things: not at all Feeling down, depressed, or hopeless: not at all Exam Narrative Exam Narrative: CONSTITUTIONAL: Well-appearing, answering questions and following commands appropriately SKIN: Was warm and dry. EYES: No conjunctival pallor. EARS, NOSE, THROAT: No JVD RESPIRATORY: Clear to auscultation bilaterally, no wheezes, crackles, or stridor, no use of accessory muscles CARDIOVASCULAR: Normal rate and regular rhythm. There is no S3, S4, murmur, rub. GASTROINTESTINAL: Abdomen is nondistended MUSCULOSKELETAL: There was no lower extremity edema, erythema, or tenderness. NEUROLOGIC: Patient is awake and alert. Facies were symmetrical. Constitutional Vital Signs, click to edit/add: Last Vital Signs Temp 97.6 F 07/07/25 17:48 Pulse 63 07/07/25 18:00 Resp 18 07/07/25 17:48 BP 128/71 07/07/25 17:48 Pulse Ox 95 07/07/25 17:48 O2 Del Method Room Air 07/07/25 17:48 Course Vital Signs Vital signs: Vital Signs Temperature 98 F 07/07/25 14:25 Pulse Rate 68 07/07/25 14:25 Respiratory Rate 20 07/07/25 14:25 Blood Pressure 132/82 07/07/25 14:25 Pulse Oximetry 95 07/07/25 14:25 Oxygen Delivery Method Room Air 07/07/25 14:25 Temperature 97.6 F 07/07/25 17:48 Pulse Rate 63 07/07/25 18:00 Respiratory Rate 18 07/07/25 17:48 Blood Pressure 128/71 07/07/25 17:48 Pulse Oximetry 95 07/07/25 17:48 Oxygen Delivery Method Room Air 07/07/25 17:48 Medical Decision Making MDM Narrative Medical decision making narrative: Patient is a 74-year-old male, history significant for CHF, presenting to the emergency department for evaluation of 2 weeks of exertional dyspnea. Vital signs arrival are within normal limits. He is afebrile and hemodynamically stable. He is saturating 95% on room air, in no respiratory distress. He has an unremarkable physical examination with clear breath sounds bilaterally. My clinical impression is that the patient is an exacerbation of congestive heart failure. I did consider PE, however the patient is on Eliquis twice daily with no missed doses, and he has no evidence of lower extremity DVT. He has a Well's Score of 0, making him low risk. Other potential differential diagnoses include ACS, arrhythmia, symptomatic anemia, pneumothorax, pneumonia, or other electrolyte/metabolic derangement. IV was established and laboratory studies were obtained. 12 Lead EKG: Normal sinus rhythm at a rate of 60. Prolonged QRS duration with RSR' configuration, consistent with right bundle branch block. No ST segment elevations. Unchanged compared to prior EKG from 03/09/2024. Final impression: normal sinus rhythm with chronic RBB. No evidence of acute myocardial ischemia Laboratory studies were unremarkable. No significant electrolyte or metabolic derangement. No evidence of acute kidney injury. No anemia, leukocytosis, or thrombocytopenia. No transaminitis or hyperbilirubinemia. Troponin nonelevated. BNP not elevated. Chest x-ray independently reviewed/interpreted by myself demonstrated no acute cardiopulmonary process. Given that the patient has a normal workup to this point, I elected to obtain CT angiogram of the chest to rule out any other pulmonary pathologies or PE. CT angiogram of the thorax independently reviewed and interpreted by myself and radiology demonstrated no evidence of acute pulmonary embolism, pulmonary edema, or any acute intrathoracic process The patient's workup so far has been unremarkable. I still do not have an explanation as to the patient's acute symptoms. It could be secondary to valvular disease such as aortic stenosis, and possibly an anginal equivalent. Patient does not feel comfortable being discharged home at this point. Therefore, I do believe he warrants admission to the observation unit for further evaluation. I discussed the patient with hospitalist, Dr. Zuniga, who accepted the patient to his service. FINAL IMPRESSION: #Acute dyspnea DISPOSITION: Admitted to the observation unit on telemetry CONDITION: Good Medical Records Medical records reviewed: Yes I reviewed the patient's medical records Lab Data Lab results reviewed: Yes I reviewed the patient's lab results Labs: Lab Results 07/07/25 Range/Units 14:36 WBC 6.9 (4.0-11.0) 10^3/uL RBC 4.83 (4.70-6.10) 10^6/uL Hgb 14.2 (14.0-18.0) g/dL Hct 43.2 (42.0-54.0) % MCV 89.4 (80.0-94.0) fL MCH 29.4 (25.9-34.0) pg MCHC 32.9 (29.9-35.2) g/dL RDW 12.8 (11.0-15.0) % Plt Count 207 (150-450) 10^3/uL MPV 9.6 (9.5-13.5) fL Sodium 136 (136-145) mmol/L Potassium 4.6 (3.5-5.1) mmol/L Chloride 104 (98-107) mmol/L Carbon Dioxide 25.3 (21.0-32.0) mmol/L Anion Gap 11.3 BUN 16.0 (7.0-18.0) mg/dL Creatinine 1.30 (0.70-1.30) mg/dL Est GFR ( Amer) >60 (>=60 mL/min/1.73m^2) Est GFR (Non-Af Amer) 54 L (>=60 mL/min/1.73m^2) BUN/Creatinine Ratio 12.3 Glucose 309 H (74-106) mg/dL Calcium 9.3 (8.5-10.1) mg/dL Magnesium 2.2 (1.8-2.4) mg/dL Troponin I High Sens 18.4 (4.0-76.1) pg/mL NT-Pro-B Natriuret Pep 152.0 (<=900.0) pg/mL Imaging Data Chest x-ray: Radiologist's impression: ITS Impressions Chest X-Ray 07/07/25 14:46 IMPRESSION: No acute process. Impression dictated by: Rocky Coello M.D. 07/07/2025 3:16 PM Dictation Location: [place] Electronically authenticated by: [id number] Y Date: 07/07/2025 15:16 Chest CTA 07/07/25 15:14 IMPRESSION: No acute pulmonary embolus. No aortic aneurysm or dissection. No acute cardiopulmonary disease. Impression dictated by: Rocky Coello M.D. 07/07/2025 4:35 PM Dictation Location: [place] Electronically authenticated by: [id number] Y Date: 07/07/2025 16:35 ECG Data Attestation: I personally reviewed and interpreted this ECG as follows: Discharge Plan Discharge Chief Complaint: Dizziness Clinical Impression: Exertional dyspnea Patient Disposition: Admitted as Observation Time of Disposition Decision: 16:57 Condition: Good Discharge Date/Time: 07/07/25 17:38
[2025-07-07 14:53] LABS: Hematocrit 43.2 % (42.0-54.0); Hemoglobin 14.2 g/dL (14.0-18.0); Mean Corpuscular HGB Conc 32.9 g/dL (29.9-35.2); Mean Corpuscular Hemoglobin 29.4 pg (25.9-34.0); Mean Corpuscular Volume 89.4 fL (80.0-94.0); Platelet Count 207 10^3/uL (150-450); Red Blood Count 4.83 10^6/uL (4.70-6.10); White Blood Count 6.9 10^3/uL (4.0-11.0)
[2025-07-07 15:10] LABS: Anion Gap 11.3; Blood Urea Nitrogen 16.0 mg/dL (7.0-18.0); Calcium 9.3 mg/dL (8.5-10.1); Carbon Dioxide 25.3 mmol/L (21.0-32.0); Chloride 104 mmol/L (98-107); Estimated GFR (African America >60 (>=60 mL/min/1.73m^2); Estimated GFR (Non-African Ame 54 (>=60 mL/min/1.73m^2); Glucose 309 mg/dL (74-106); Magnesium 2.2 mg/dL (1.8-2.4); NT Pro B Type Natriuretic Pept 152.0 pg/mL (<=900.0); Potassium 4.6 mmol/L (3.5-5.1); Sodium 136 mmol/L (136-145)
--- NOTE | 2025-07-07 15:14 | CT_ITS ---
The [address] [address] Patient Name: SANTA SMITH MRN: [id number] date: 1950 Sex: M Assigned Patient Location: ER Current Patient Location: ER Accession/Order Number: [id number] Exam Date: 07/07/2025 15:25 Report Date: 07/07/2025 16:35 At the request of: COLTEN MOLINA DO Procedure: CT angio chest CTA Chest with PE protocol TECHNIQUE: Axial imaging with 2-D and 3-D reconstruction. 100 cc of Omnipaque [address] exam was performed using one or more the following dose reduction techniques: Automated exposure control, adjustment of the MA and/or Kv according to patient size, or use of the iterative reconstruction technique. History: Dizziness and shortness of breath for one week COMPARISON: None THYROID: Unremarkable TRACHEA AND BRONCHI: Patent ESOPHAGUS: Unremarkable. HEART: Within normal limits PERICARDIAL EFFUSION: None CORONARY ARTERY CALCIFICATION: Moderate atherosclerosis MEDIASTINUM: No adenopathy. No pneumoperitoneum. No mediastinal hematoma. PULMONARY ALTAF: No hilar mass or adenopathy is seen. THORACIC AORTA no aneurysm. Atherosclerosis PULMONARY EMBOLUS: None LUNG NODULE None LUNGS: Lungs are clear PLEURAL EFFUSION: None PNEUMOTHORAX: No pneumothorax seen. CHEST WALL: No abnormality AXILLA: Unremarkable BONY STRUCTURES Intact UPPER ABDOMEN: Images of the upper abdomen are noncontributory. CT/CT angio chest IMPRESSION: No acute pulmonary embolus. No aortic aneurysm or dissection. No acute cardiopulmonary disease. Impression dictated by: Rocky Coello M.D. 07/07/2025 4:35 PM Dictation Location: [place] Electronically authenticated by: [id number] Y Date: 07/07/2025 16:35
--- OUTSIDE RECORDS SUMMARY | 2025-07-07 16:50 | XMS_ITS | CCD ---
Author Organization [facility] Care Team Providers Care Mica Spreader Name Role Phone PHYSICIAN, DEFAULT Unavailable Unavailable [...] Care Provider DO Merly Paul Attending Provider [phone] Joseluis Quiroz Primary Care Unavailable Merly Paul [...] Unavailable Joseluis Quiroz MD Primary Care Provider Milan Peña MD Attending Provider Joseluis Quiroz MD Attending Provider TONA ROSENBERG Attending Unavailable MILAN PEÑA Attending Unavailable Joseluis Quiroz MD Primary Care Provider Allergies Allergy Classification Reported Allergen(s) Allergy Type Date of Onset Reaction(s) Facility (2 sources) Lisinopril Drug Allergy 5 Other: See Comments [facility] Work Phone: (1 source) Lisinopril Propensity to adverse reactions 5 [facility] Work Phone: Medications Current Medications Medication Drug Class(es) Dates Sig (Normalized) Sig (Original) [id number] 200 actuat albuterol 0.09 mg/actuat metered dose [...] other day for 0 *Pick strength-form from [employer] for eRX* Jul, Active Ocuvite TABS WYATT [...] Oral Once a day *Pick strength-form from [employer] for eRX* Jul, Active Start: 07-23-2022 take 1 tablet by woody th twice daily buPROPion HCl ER (XL) 150MG buPROPion HCl ER (XL) 150MG, 1 (one) Tablet Tablet two times daily # 180, 07/23/2022, Ref. x1. Active Oral two times daily for 0 *Pick strength-form from [employer] for eRX* Jul, Active Start: 04-13-2020 take [...] same time Active take 1 capsule by [facility] once daily esomeprazole 20 mg capsule Indications: [...] as directed for 30 *Pick strength-form from [employer] for eRX* Jul, Active take 1 tablet by woody th once daily as needed Sildenafil Citrate 50 MG 1 tablet as needed Orally daily as directed for 30 days *Pick strength-form from [employer] for eRX* Active spironolactone 25 mg oral [...] Entry Transdermal daily for 0 *Reorder from [employer] for eRx and Interaction Alerts* Jul, Active [...] Coronary arteriosclerosis; Translations: [Atherosclerotic heart disease of [place] coronary artery without angina pectoris] Onset: 4 [...] sources) Long-term current use of insulin; Translations: [roasterman (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 insulin] Episodic Other and [...] 11-13-2022 Episodic Other aftercare (1 source) Other senior care (current) drug therapy; Translations: [OTH SALES EXHIBITOR CURRENT DRUG THERAPY] Onset: 11-13-2022 Episodic Other aftercare (1 source) roasterman (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 oral hypoglycemic drugs; Translations: [SALES EXHIBITOR USE ORAL HYPOGLYCEMIC DX] Onset: 11-13-2022 Episodic Other aftercare (1 source) senior care (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 insulin; Translations: [CARE HOME CURRENT USE OF INSULIN] Onset: 11-13-2022 Episodic Other aftercare (1 source) senior care (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 aspirin; Translations: [CARE HOME CURRENT USE OF ASPIRIN] Onset: 10-17-2022 Episodic [...] Interpretation Reference Range Facility US Thyroid [place] [address] [address] Ultrasound Report Signed Patient: GADIEL LIANG MR#: [id number] : 1950 Acct:[id number] Age/Sex: 74 / M ADM Date: 06/29/25 Loc: US Attending Dr: Henrry Johnson M.D. Ordering Physician: Henrry Johnson M.D. Date of Service: 06/29/25 Procedure(s): US thyroid Accession Number(s): [id number] cc: Joseluis Quiroz M.D.; Henrry Johnson M.D. [address] [place] [address] Patient Name: GADIEL LIANG MRN: [facility]:[id number] date: 1950 Sex: M Assigned Patient Location: US Current Patient Location: US Accession/Order Number: [id number] Exam Date: 06/29/2025 12:27 Report Date: 06/29/2025 [...] Coello M.D. 06/29/2025 12:30 PM Dictation Location: [place] [address] Electronically authenticated by: [id number] Y Date: 06/29/2025 12:30 Dictated By: Rocky Coello D.O. Signed By: 06/29/25 1232 DD/ 1230 TD/TT: Cad Detailer: [facility] Radiology, Radiologi MD jake - 06/29/2025 [place] [address] Ultrasound Report Signed Patient: GADIEL LIANG MR#: [id number] : 1950 Acct:[id number] Age/Sex: 74 / M ADM Date: 06/29/25 Loc: US Attending Dr: Henrry Johnson M.D. Ordering Physician: Henrry Johnson M.D. Date of Service: 06/29/25 Procedure(s): US thyroid Accession Number(s): [id number] cc: Joseluis Quiroz M.D.; Henrry Johnson M.D. [place] [address] Patient Name: GADIEL LIANG MRN: [facility]:[id number] date: 1950 Sex: M Assigned Patient Location: US Current Patient Location: US Accession/Order Number: [id number] Exam Date: 06/29/2025 12:27 Report Date: 06/29/2025 [...] Coello M.D. 06/29/2025 12:30 PM Dictation Location: [place] [address] Electronically authenticated by: [id number] Y Date: 06/29/2025 12:30 Dictated By: Rocky Coello D.O. Signed By: 06/29/25 1232 DD/ 1230 TD/TT: Cad Detailer: [facility] Radiology Study observation (narrative) [facility] US Thyroid glandOrdered By: Radiologist Radiology on 06-29-2025 [facility] Work Phone: 36on 05-18-2025 36 Regarding lab result s from 04/15/2025: Milan Peña MD to Ms 04/25/25 5:45 PM Good lipids and AST ALT, continue current management and recheck in 6 months Lab orders to be done prior to Oct 2025 apt were mailed to patient. Normal [facility] Results Follow-Upon 04-25-20 Results Follow-Up [id number] Barber Liang eliseo E 1950 M Date Provider Department Center 04/25/2025 [id number]-HKLZQKMILAN PEÑA [facility] Family History Problem Relation Age of Onset [...] Paternal Grandmother Paternal Grandfather Other Normal [facility] Office Visiton 04-20-2025 Follow-up visit [id number] Barber Liang E 1950 M Date Provider Department Center 04/20/2025 TONA FORTE RO [facility] Family History Problem Relation Age of [...] Paternal Grandmother Paternal Grandfather Other Level of Service:14705 IN OFFICE/OUTPATIENT ESTABLISHED LOW MDM 20 MIN Normal [facility] Cholesterol in LDL Calc [Mas s/Vol]on 04-15-2025 Cholesterol in LDL [Mass/Vol] 36.2 mg/dL [facility] Comment on above: <100 mg/dl RBIUMIU56 0-129 mg/dl NEAR OR ABOVE [id number] mg/dl BORDERLINE EUOY640-856 mg/dl HIGH>190 mg/dl VERY HIGH Cholesterol in VLDL Calc [Ma ss/Vol]on 04-15-2025 Cholesterol in VLDL [Mass/Vol] 15.8 mg/dL [facility] Laboratory - Chemistry and C hemistry - challengeon 04-15-2025 ALT [Catalytic activity/Vol] 22 U/L 16-63 [facility] AST [Catalytic activity/Vol] 13 U/L Low 15-37 [facility] Cholesterol [Mass/Vol] 109 mg/dL <=200 [facility] Cholesterol in HDL [Mass/Vol] 57 mg/dL 40-60 [facility] Comment on above: > or =60 mg/dl - LOW CARDIOVASCULAR RISK<40 mg/dl - HIGH CARDIOVASCULAR RISK Triglyceride [Mass/Vol] 79 mg/dL <=150 [facility] Orders Onlyon 04-15-2025 Orders Only [id number] Barber Liang 1950 M Date Provider Department Center 04/15/2025 22962-USWJWRMILAN PEÑA [facility] Family History Problem Relation [...] Paternal Grandmother Paternal Grandfather Other Normal [facility] Serum or plasma total choles terol/high density lipoprotein (HDL) cholesterol mass [place] 04-15-2025 Cholesterol.total/C holesterol in HDL [Mass ratio] 1.9 {ratio} [facility] Comment on above: 3.3 - 4.4 LOW RISK4. 4 - 7.1 AVERAGE RISK7.1 - 11.0 MODERATE RISK>11.0 HIGH RISK 36on 12-24-2024 36 Regarding lab result s from 12/10/2024: MD Traah Pandya MA Good lipids, continue current medications. Recheck lipids and AST ALT in 6-month. LM for patient. Told him we could order repeats labs at his next apt in 3 months (March) with Dr. Rosenberg. Asked him to call the office with any questions. Normal [facility] [place] [address] Ultrasound Report Signed Patient: GADIEL LIANG MR#: [id number] : 1950 Acct:[id number] Age/Sex: 74 / M ADM Date: 12/23/24 Loc: US Attending Dr: Henrry Johnson M.D. Ordering Physician: Henrry Johnson M.D. Date of Service: 12/23/24 Procedure(s): US thyroid Accession Number(s): [id number] cc: Joseluis Quiroz M.D.; Henrry Johnson M.D. [place] [id number] Patient Name: GADIEL LIANG MRN: [id number]:[id number] date: 1950 Sex: M Assigned Patient Location: US Current Patient Location: US Accession/Order Number: [id number] Exam Date: 12/23/2024 12:20 Report Date: 12/23/2024 [...] Bilateral subcentimeter TR 4 nodules TI-RADS: [employer] TI-RADS committee's white paper recommendations for thyroid lesions classified as TR4 (moderately suspicious) are listed below: > 1.0 cm. Follow-up ultrasound in 1, 2, 3, and 5 years. > 1.5 cm. FNA. J. Am Dionicio Radiol 2017;14:587-595. Electronically authenticated by: GEORGIE VIERA Date: 12/23/2024 13:12 Dictated By: Georgie Viera M.D. Signed By: 12/23/241314 DD/ 11 TD/TT: Cad Detailer: [facility] Radiology, Radiologi MD jake - 12/23/2024 [place] [address] Ultrasound Report Signed Patient: GADIEL LIANG MR#: [id number] : 1950 Acct:[id number] Age/Sex: 74 / M ADM Date: 12/23/24 Loc: US Attending Dr: Henrry Johnson M.D. Ordering Physician: Henrry Johnson M.D. Date of Service: 12/23/24 Procedure(s): US thyroid Accession Number(s): [id number] cc: Joseluis Quiroz M.D.; Henrry Johnson M.D. The [place] [id number] Patient Name: GADIEL LIANG MRN: [facility]:[id number] date: 1950 Sex: M Assigned Patient Location: US Current Patient Location: US Accession/Order Number: [id number] Exam Date: 12/23/2024 12:20 Report Date: 12/23/2024 [...] Bilateral subcentimeter TR 4 nodules TI-RADS: [employer] TI-RADS committee's white paper recommendations for thyroid lesions classified as TR4 (moderately suspicious) are listed below: > 1.0 cm. Follow-up ultrasound in 1, 2, 3, and 5 years. > 1.5 cm. FNA. J. Am Dionicio Radiol 2017;14:587-595. Electronically authenticated by: GEORGIE VIERA Date: 12/23/2024 13:12 Dictated By: Georgie Viera M.D. Signed By: 12/23/241314 DD/ 11 TD/TT: Cad Detailer: [facility] Radiology Study observation (narrative) [facility] US Thyroid glandOrdered By: Radiologist Radiology on 12-23-2024 [facility] [employer] Work Phone: Office Visiton 09-16-2024 Follow-up visit [id number] Barber Liang 1950 M Date Provider Department Center 09/16/2024 [id number]-[id number] PEÑA [facility] Family History Problem Relation Age of [...] Paternal Grandmother Paternal Grandfather Other Level of Service:52566 IN OFFICE/OUTPATIENT ESTABLISHED MOD MDM 30 MIN Reason for Visit and Comments: Atrial Fibrillation [80] - S/p afib ablation vasovagal syncope [Other] Transient Ischemic Attack [075650] - X2 Carotid stenosis, bilateral [Other] Hyperlipidemia [182] - HAD LABS 11/5/24 Chronic systolic congestive heart failure [Other] - Congestive heart failure due to NICM Heart failure is stable . NYHA Class II Normal [facility] CNPMirta 06-18-2024 RACHAELN Telephone (PULMMN) GADIEL LIANG ([id number]) 1950 M Date Time Provider Department 06/18/24 RICKEY OSBORNE During your visit today, we recorded the following information about you: Greg River 06/18/2024 4:24 PM Signed Received a mail from [facility] with a notice on the Authorization for MRI, Brain, W/O Contrast Dated: 06/04/24 Status: Approve Service Requested: MRI, Brain, W/O Contrast Effective Dates: 06/04/2024 - 09/01/2024 Reference #: [id number] Uploaded into scan docs. Please allow time [...] LANCETS) lancets Use as instructed - Insulin Barton, Disposable, (BD ULTRAFINE III MINI PEN) 31 [...] Status:Closed by GREG RIVER on 06/18/24 Normal [facility] Capillary blood glucose corey urement by glucometer (mass/volume)Ordered By: Merly Paul on 04-14-2024 Glucose [Mass/Vol] 73 mg/dL Normal [facility] Comment on above: Random Glucose Refer ence Range is dependent on time and content of last meal. Glucose of more than 200 mg/dL in a nonstressed, ambulatory subject supports the diagnosis of Diabetes Mellitus. Result Comment: [place] Glucose Reference Range is dependent on time and content of last meal. Glucose of more than 200 mg/dL in a nonstressed, ambulatory subject supports the diagnosis of Diabetes Mellitus. PERFORMED BY: [facility] [place] [address] PATHOLOGIST [employer] WORKER ANJANA SEWELL M.D. Performed By: #### G LULS #### Point of Care testing , [place] 04-14-2024 L Specimen: [id number] Received: 04/14/24 Status: MAYO Yuridia Num: [id number] Spec Type: Surgical Subm Dr: Merly Paul DO Tissues: A Colon Biopsy (CECAL POLYP) B Colon Biopsy (ASC POLYPS) C Colon Biopsy (TRANSV POLYP) D Colon Biopsy (DESC POLYP) Procedures: HE/8, Gross/Micro L4/4 Age/ Patient Sex Location Account Attending Physician Gadiel Liang 73/M [id number] Merly Paul DO SPEC NUM: [id number] RECD: 04/14/24 STATUS: MAYO ESCALANTEDevin NUM: [id number] DIONICIO: 04/14/24- DR: Merly Paul DO ENTERED: 04/14/[address] [facility] [address]: Joseluis Quiroz MD SPEC TYPE: [...] -Tubular adenoma Clinical Information Diarrhea, constipation Specimen: [id number] Received: 04/14/24 Status: MAYO Shi Num: [id number] Spec Type: Surgical Subm Dr: Merly Paul DO Tissues: A Colon Biopsy (CECAL POLYP) B Colon Biopsy (ASC POLYPS) C Colon Biopsy (TRANSV POLYP) D Colon Biopsy (DESC POLYP) Procedures: HE/Claribel, Gross/Micro L4/4 Patient: Gadiel Liang [id number] (Continued) Specimen: Received: 04/14/24 (Continued) Signed (signature on file) Ayush Jackson MD 04/16/24 1330 Specimen: Received: 04/14/24 Status: MAYO Shi Num: [id number] Spec Type: Surgical Subm Dr: Merly Paul, Tissues: A Colon Biopsy (CECAL POLYP) B Colon Biopsy (ASC POLYPS) C Colon Biopsy (TRANSV POLYP) D Colon Biopsy (DESC POLYP) Procedures: , Gross/Micro L4/4 Patient: Gadiel Liang [id number] (Continued) Specimen: [id number] Received: 04/14/24 (Continued) Gross Description Received are [...] mucosal tissue fragment, entirely submitted in D1. [facility] Codes 11526D8 Specimen: [id number] Received: 04/14/24 Status: MAYO Escalantedevin Num: [id number] Spec Type: Surgical Subm Dr: Merly Paul DO Tissues: A Colon Biopsy (CECAL POLYP) B Colon Biopsy (ASC POLYPS) C Colon Biopsy (TRANSV POLYP) D Colon Biopsy (DESC POLYP) Procedures: Rivas LOFTON/Andrew L4/4 Patient: Gadiel Liang [id number] (Continued) Signed (signature on file) Suki Jackson MD 04/16/24 8330 [facility] ECHOCARDIO M/2D COMPLETEon 0 02-28-2023 ECHOCARDIO M/2D COMPLETE Patient: GADIEL LIANG Exam Date: 02/28/2023 : 1950 Gender:M Ordering : TONA AmayaIgnacio ROSEBNERG Admission #: [id number] Family : DR JOSELUIS QUIROZ M.D. Order #: [id number] CLICK HERE TO VIEW EXAM ECHOCARDIOGRAM REPORT [...] Left Atrium LA Volume Index (2D A2C): 27522 mm3 Left Atrium Systolic Dimension: 4.90 cm [...] Patten M.D. on 02/28/2023 at 20:13 Normal [facility] PROF 14(COMP METB)on 023 Albumin [Mass/Vol] 3.7 g/dL Normal 3.4-5.0 [facility] Comment on above: Performed By: #### C MP #### [facility] [address] [place] [address] Dr. Esme Jackson Albumin/Globulin [Mass ratio] 1.1 {ratio} Normal [facility] Comment on above: Performed By: #### C MP #### [facility] [address] [place] [address] [address] Esme Jackson ALP [Catalytic activity/Vol] 65 U/L Normal 46-116 [facility] Comment on above: Performed By: #### C MP #### [facility] [address] [place] [address] [address] Esme Jackson ALT [Catalytic activity/Vol] 26 U/L Normal 16-63 [facility] Comment on above: Performed By: #### C MP #### [facility] [address] [place] [address] [address] Esme Jackson Anion gap [Moles/Vol] 10.8 mmol/L Normal [facility] Comment on above: Performed By: #### C MP #### [facility] [address] [place] [address] [address] Esme Jackson AST [Catalytic activity/Vol] 16 U/L Normal 15-37 [facility] Comment on above: Performed By: #### C MP #### [facility] [address] [place] [address] [address] Esme Jackson Bilirubin [Mass/Vol] 1.1 mg/dL Critically high 0.2-1.0 [facility] Comment on above: Performed By: #### C MP #### [facility] [address] [place] [address] [address] Esme Jackson Calcium [Mass/Vol] 9.4 mg/dL Normal 8.5-10.1 [facility] Comment on above: Performed By: #### C MP #### [facility] [address] [place] [address] [address] Esme Jackson Chloride [Moles/Vol] 103 mmol/L Normal 98-107 [facility] Comment on above: Performed By: #### C MP #### [facility] [address] [place] [address] [address] Esme Jackson CO2 [Moles/Vol] 28.5 mmol/L Normal 21.0-32.0 [facility] Comment on above: Performed By: #### C MP #### [facility] [address] [place] [address] [address] Esme Jackson Creatinine [Mass/Vol] 1.07 mg/dL Normal 0.70-1.30 [facility] Comment on above: Performed By: #### C MP #### [facility] [address] [place] [address] [address] Esme Jackson EGFR-AF [place] >60 Normal >=60 [facility] Comment on above: Performed By: #### C MP #### [facility] [address] [place] [address] [address] Esme Jackson EGFR-NON AF [place] >60 Normal >=60 [facility] Comment on above: Performed By: #### C MP #### [facility] [address] [place] [address] [address] Esme Jackson Globulin (S) [Mass/Vol] 3.5 g/dL Normal [facility] Comment on above: Performed By: #### C MP #### [facility] [address] [place] [address] [address] Esme Jackson Glucose [Mass/Vol] 190 mg/dL Critically high 74-106 [facility] Comment on above: Performed By: #### C MP #### [facility] [address] [place] [address] Dr. Esme Jackson Potassium [Moles/Vol] 5.3 mmol/L Critically high 3.5-5.1 [facility] Comment on above: Performed By: #### C MP #### [facility] [address] [place] [address] Dr. Esme Jackson Protein [Mass/Vol] 7.2 g/dL Normal 6.4-8.2 [facility] Comment on above: Performed By: #### C MP #### [facility] [address] [place] [address] Dr. Esme Jackson Sodium [Moles/Vol] 137 mmol/L Normal 136-145 [facility] Comment on above: Performed By: #### C MP #### [facility] [address] [place] [address] Dr. Esme Jackson Urea nitrogen [Mass/Vol] 14.0 mg/dL Normal 7.0-18.0 [facility] Comment on above: Performed By: #### C MP #### [facility] [address] [place] [address] Dr. Esme Jackson Urea nitrogen/Creatinine [Mass ratio] 13.1 mg/mg Normal [facility] Comment on above: Performed By: #### C MP #### [facility] [address] [place] [address] Dr. Esme Jackson BNPon 11-10-2022 Natriuretic peptide B (Bld) [Mass/Vol] 6259.0 pg/mL Critically high <=900.0 [facility] Comment on above: Performed By: #### B BUDDER, BMP, HSTROPN #### [facility] [address] [place] [address] Dr. Esme Jackson CBC AUTO DIFFon 11-10-2022 BASO # 0.0 103/ul Normal 0.0-0.1 [facility] Comment on above: Performed By: #### C BC #### [facility] [address] [place] [address] Dr. Esme Jackson Basophils/100 WBC (Bld) 0.5 % Normal 0.2-2.0 [facility] Comment on above: Performed By: #### C BC #### [facility] [address] [place] [address] Dr. Esme Jackson EO # 0.3 103/ul Normal 0.0-0.7 [facility] Comment on above: Performed By: #### C BC #### [facility] [address] [place] [address] Dr. Esme Jackson Eosinophils/100 WBC (Bld) 3.6 % Normal 0.9-7.0 [facility] Comment on above: Performed By: #### C BC #### [facility] [address] [place] [address] Dr. Emse Jackson Erythrocyte distribution width (RBC) [Ratio] 14.8 % Normal 11.0-15.0 [facility] Comment on above: Performed By: #### C BC #### [facility] [address] [place] [address] Dr. Esme Jackson Hematocrit (Bld) [Volume fraction] 36.9 % Critically low 42.0-54.0 [facility] Comment on above: Performed By: #### C BC #### [facility] [address] [place] [address] Dr. Esme Jackson Hemoglobin (Bld) [Mass/Vol] 12.0 g/dL Critically low 14.0-18.0 [facility] Comment on above: Performed By: #### C BC #### [facility] [address] [place] [address] [address] Esme Jackson IG # 0.04 10e3/ul Critically high 0.00-0.03 [facility] Comment on above: Performed By: #### C BC #### [facility] [address] [place] [address] [address] Esme Jackson IG % 0.5 % Normal 0.0-0.5 [facility] Comment on above: Performed By: #### C BC #### [facility] [address] [place] [address] Dr. Esme Jackson LYMPH # 1.3 103/ul Normal 1.2-3.8 [facility] Comment on above: Performed By: #### C BC #### [facility] [address] [place] [address] Dr. Esme Jackson Lymphocytes/100 WBC (Bld) 18.2 % Critically low 20.5-60.0 [facility] Comment on above: Performed By: #### C BC #### [facility] [address] [place] [address] Dr. Esme Jackson MANUAL DIFF REQ NO Normal [facility] Comment on above: Performed By: #### C BC #### [facility] [address] [place] [address] Dr. Esme Jackson MCH (RBC) [Entitic mass] 28.0 pg Normal 25.9-34.0 [facility] Comment on above: Performed By: #### C BC #### [facility] [address] [place] [address] Dr. Esme Jackson MCHC (RBC) [Mass/Vol] 32.5 g/dL Normal 29.9-35.2 [facility] Comment on above: Performed By: #### C BC #### [facility] [address] [place] [address] Dr. Esme Jackson MCV (RBC) [Entitic vol] 86.0 fL Normal 80.0-94.0 [facility] Comment on above: Performed By: #### C BC #### [facility] [address] [place] [address] Dr. Esme Jackson MONO # 0.5 103/ul Normal 0.3-0.8 [facility] Comment on above: Performed By: #### C BC #### [facility] [address] [place] [address] [address] Esme Jackson Monocytes/100 WBC (Bld) 7.3 % Normal 1.7-12.0 [facility] Comment on above: Performed By: #### C BC #### [facility] [address] [place] [address] Dr. Esme Jackson NEUT # 5.1 103/ul Normal 1.4-6.5 [facility] Comment on above: Performed By: #### C BC #### [facility] [address] [place] [address] Dr. Esme Jackson Neutrophils/100 WBC (Bld) 69.9 % Normal 43.0-75.0 [facility] Comment on above: Performed By: #### C BC #### [facility] [address] [place] [address] Dr. Esme Jackson Platelet mean volume (Bld) [Entitic vol] 10.3 fL Normal 9.5-13.5 [facility] Comment on above: Performed By: #### C BC #### [facility] [address] [place] [address] Dr. Esme Jackson PLT 220 103/ul Normal 150-450 [facility] Comment on above: Performed By: #### C BC #### [facility] [address] [place] [address] Dr. Esme Jackson RBC 4.29 106/ul Critically low 4.70-6.10 [facility] Comment on above: Performed By: #### C BC #### [facility] [address] [place] [address] Dr. Esme Jackson WBC 7.3 103/ul Normal 4.0-11.0 [facility] Comment on above: Performed By: #### C BC #### [facility] [address] [place] [address] Dr. Esme Jackson Covid-19 PCR (CVDTB)on 10-13 SARS-CoV-2 (COVID-19) RNA HANSA+probe Ql (Unsp spec) Not detected Normal NOT DETECTED [facility] Comment on [...] for this test is supported by the [place] of Health and Human Service's declaration that [...] used). Performed By: #### C VDTB #### [facility] [address] [place] [address] Dr. Esme Jackson INFLUENZA A AND B AGon 11-10 INFLUANEGH SEE BELOW Normal [facility] Comment on above: Result Comment: Nega tive for Flu A protein angiten. Infection due to Flu A cannot be ruled out. Flu A angiten in the sample may be below the detection limit of the test. Performed By: #### F T4 #### [facility] [address] [place] [address] Dr. Esme Jackson INFLUBNEG SEE BELOW Normal [facility] Comment on above: Result Comment: Nega tive for Flu B protein antigen. Infection due to Flu B cannot be ruled out. Flu B antigen in the sample may be below the detection limit of the test. Performed By: #### F T4 #### [facility] [address] [place] [address] Dr. Esme Jackson INFLUENZA A AG Negative Normal NEGATIVE SEE COMMENT [facility] Comment on above: Performed By: #### F T4 #### [facility] [address] [place] [address] Dr. Esme Jackson INFLUENZA B AG Negative Normal NEGATIVE SEE COMMENT [facility] Comment on above: Performed By: #### F T4 #### [facility] [address] [place] [address] Dr. sEme Jackson PROF CHEM 8 (BAS METB)on Anion gap [Moles/Vol] 13.9 mmol/L Normal [facility] Comment on above: Performed By: #### B BUDDER, BMP, HSTROPN #### [facility] [address] [place] [address] Dr. Esme Jackson Calcium [Mass/Vol] 8.7 mg/dL Normal 8.5-10.1 [facility] Comment on above: Performed By: #### B BUDDER, BMP, HSTROPN #### [facility] [address] [place] [address] Dr. Esme Jackson Chloride [Moles/Vol] 104 mmol/L Normal 98-107 [facility] Comment on above: Performed By: #### B BUDDER, BMP, HSTROPN #### [facility] [address] [place] [address] Dr. Esme Jackson CO2 [Moles/Vol] 25.2 mmol/L Normal 21.0-32.0 [facility] Comment on above: Performed By: #### B BUDDER, BMP, HSTROPN #### [facility] [address] [place] [address] Dr. Esme Jackson Creatinine [Mass/Vol] 1.04 mg/dL Normal 0.70-1.30 [facility] Comment on above: Performed By: #### B BUDDER, BMP, HSTROPN #### [facility] [address] [place] [address] Dr. Esme Jackson EGFR-AF PAPUA [place]AN >60 Normal >=60 [facility] Comment on above: Performed By: #### B BUDDER, BMP, HSTROPN #### [facility] [address] [place] [address] Dr. Esme Jackson EGFR-NON AF PAP[place] >60 Normal >=60 [facility] Comment on above: Performed By: #### B BUDDER, BMP, HSTROPN #### [facility] [address] [address] [address] Esme Jackson Glucose [Mass/Vol] 199 mg/dL Critically high 74-106 T [facility] Comment on above: Performed By: #### B BUDDER, BMP, HSTROPN #### [facility] [address] [address] [address] Esme Jackson Potassium [Moles/Vol] 4.1 mmol/L Normal 3.5-5.1 [facility] Comment on above: Performed By: #### B BUDDER, BMP, HSTROPN #### [facility] [address] [place] [address] Dr. Esme Jackson Sodium [Moles/Vol] 139 mmol/L Normal 136-145 [facility] Comment on above: Performed By: #### B BUDDER, BMP, HSTROPN #### [facility] [address] [place] [address] Dr. Esme Jackson Urea nitrogen [Mass/Vol] 18.0 mg/dL Normal 7.0-18.0 [facility] Comment on above: Performed By: #### B BUDDER, BMP, HSTROPN #### [facility] [address] [place] [address] Dr. Esme Jackson Urea nitrogen/Creatinine [Mass ratio] 17.3 mg/mg Normal [facility] Comment on above: Performed By: #### B BUDDER, BMP, HSTROPN #### [facility] [address] [place] [address] Dr. Esme Jackson TROPONIN, HIGH SENSITIVITYon 11-10-2022 HSTROP 35.5 pg/mL Normal 4.0-76.1 [facility] Comment on above: Result Comment: CUT- OFF POINTS HAVE BEEN ESTABLISHED BASED ON THE FOURTH UNIVERSAL DEFINITIONS OF MYOCARDIAL INFARCTION. THE UPPER REFERENCE LIMIT (URL) OF TROPONIN, DEFINED THE 99TH PERCENTILE OF cTnI DISTRIBUTION IN A REFERENCE POPULATION, HAS BEEN CONFIRMED THE DECISION THRESHOLD FOR [place] DIAGNOSIS. Performed By: #### B BUDDER, BMP, HSTROPN #### [facility] [address] [address] [address] Esme Jackson XR CHEST 1 Von [...] RY [place] Date: 2022-11-10 09:24 Normal [facility] Covid-19 PCR (CVDTB)on SARS-CoV-2 (COVID-19) RNA HANSA+probe Ql (Unsp spec) Not detected Normal NOT DETECTED [facility] Comment on [...] for this test is supported by the [place] of Health and Human Service's declaration that [...] used). Performed By: #### C VDTB #### [facility] [address] [address] [address] Esme Jackson INFLUENZA A AND B AGon 10-15 INFLUANEGH SEE BELOW Normal [facility] Comment on above: Result Comment: Nega tive for Flu A protein angiten. Infection due to Flu A cannot be ruled out. Flu A angiten in the sample may be below the detection limit of the test. Performed By: #### F T4 #### [facility] [address] [place] [address] Dr. Esme Jackson INFLUBNEG SEE BELOW Normal [facility] Comment on above: Result Comment: Nega tive for Flu B protein antigen. Infection due to Flu B cannot be ruled out. Flu B antigen in the sample may be below the detection limit of the test. Performed By: #### F T4 #### [facility] [address] [place] [address] Dr. Esme Jackson INFLUENZA A AG Negative Normal NEGATIVE SEE COMMENT [facility] Comment on above: Performed By: #### F T4 #### [facility] [address] [place] [address] Dr. Esme Jackson INFLUENZA B AG Negative Normal NEGATIVE SEE COMMENT [facility] Comment on above: Performed By: #### F T4 #### [facility] [address] [place] [address] Dr. Esme Jackson INTERNAL CONTROLS Within Normal Limits Normal Wi thin Normal Limits [facility] Comment on above: Performed By: #### F T4 #### [facility] [address] [place] [address] Dr. Esme Jackson XR CHEST 2 Von [...] RAPHAEL NUNEZ Date: 2022-10-15 10:08 Normal [facility] Follow Up (Endocrinology)on 10-10-2022 Follow [...] insulin; CATIE = N; Verified Transmission to [id number]; Last Updated By: [employer] 10/10/2022 11:29:03 AM Albumin, Urine Spot; Status:Active; Requested for:10Oct2022; Perform:Lab Services - Lab To Draw (Non-Blood Test); Due:08Jan2023;Ordered; For:Central hypothyroidism, Hyperlipemia, Hypogonadism male, Pituitary macroadenoma, Thyroid nodule, Type 2 diabetes mellitus with other specified complication, with long-term current use of insulin; Ordered By:Mandie Osborne; Brain Natriuretic Peptide BNP; Status:Active; Requested for:10Oct2022; Perform:Lab Services - Lab To Draw (Blood Test); Due:[id number];Ordered; For:Central hypothyroidism, Hyperlipemia, Hypogonadism male, Pituitary macroadenoma, Thyroid nodule, Type 2 diabetes mellitus with other specified complication, with long-term current use of insulin; Ordered By:Mandie Osborne; Complete Blood Count + Differential; Status:Active; Requested for:10Oct2022; Perform:Lab Services - Lab To Draw (Blood Test); Due:[id number];Ordered; For:Central hypothyroidism, Hyperlipemia, Hypogonadism male, Pituitary macroadenoma, [...] Services - Lab To Draw (Blood Test); Due:[id number];Ordered; For:Central hypothyroidism, Hyperlipemia, Hypogonadism male, Pituitary macroadenoma, Thyroid nodule, Type 2 diabetes mellitus with other specified complication, with long-term current use of insulin; Ordered By:Mandie Osborne; T4 - Free Thyroxine, Serum; Status:Active; Requested for:10Oct2022; Perform:Lab Services - Lab To Draw (Blood Test); Due:[id number];Ordered; For:Central hypothyroidism, Hyperlipemia, Hypogonadism male, Pituitary macroadenoma, Thyroid nodule, Type 2 (more content not included)... Normal [facility] CORTISOL Bri 06-25-2022 Cortisol AM 19.6 ug/dL Critically high 6.2-19.4 [facility] Comment on above: Performed By: #### C ORTAM #### [facility] [address] [address] [address] Esme Jackson MICROALBUMIN URINEon 022 Albumin, Urine 36.5 ug/mL Normal Not Estab. [facility] Comment on above: Performed By: #### F T4 #### [facility] [address] [address] [address] Esme Jackson FREE T4on 06-22-2022 Free T4 [Mass/Vol] 1.22 ng/dL Normal 0.76-1.46 [facility] Comment on above: Performed By: #### F T4 #### [facility] [address] [address] [address] Esme Jackson GLYCOHEMOGLOBIN A1Con 2021 ADA RECOMMENDATION SEE BELOW Normal [facility] Comment on above: Result Comment: ADA RECOMMENDED LIMIT 4.0 - 6.0 ADA THERAPEUTIC TARGET < 7.0 ACTION SUGGESTED > 7.0 Performed By: #### F T4 #### [facility] [address] [address] [address] Esme Jackson Glucose [Mass/Vol] 194 mg/dL Normal [facility] Comment on above: Performed By: #### F T4 #### [facility] [address] [address] [address] Esme Jackson HbA1c (Bld) [Mass fraction] 8.4 % Critically high 4.5-6.2 [facility] Comment on above: Performed By: #### F T4 #### [facility] [address] [address] [address] Esme Jackson LIPID PROFILEon 06-22-2022 CHOL-HDL RATIO NORM SEE BELOW Normal [facility] Comment on above: Result Comment: 3.3 - 4.4 LOW RISK 4.4 - 7.1 AVERAGE RISK 7.1 - 11.0 MODERATE RISK >11.0 HIGH RISK Performed By: #### F T4 #### [facility] [address] [address] [address] Esme Jackson Cholesterol [Mass/Vol] 153 mg/dL Normal <=200 [facility] Comment on above: Performed By: #### F T4 #### [facility] [address] [address] [address] Esme Jackson Cholesterol in HDL [Mass/Vol] 55 mg/dL Normal 40-60 [facility] Comment on above: Performed By: #### F T4 #### [facility] [address] [address] [address] Esme Jackson Cholesterol in LDL [Mass/Vol] 82.2 mg/dL Normal [facility] Comment on above: Performed By: #### F T4 #### [facility] [address] [address] [address] Esme Jackson Cholesterol.total/C holesterol in HDL [Mass ratio] 2.8 {ratio} Normal [facility] Comment on above: Performed By: #### F T4 #### [facility] [address] [address] [address] Esme Jackson HDL NORMAL > or = 60 mg/dl - LO W CARDIOVASCULAR RISK <40 mg/dl - HIGH CARDIOVASCULAR RISK Normal [facility] Comment on above: Performed By: #### F T4 #### [facility] [address] [place] [address] Dr. Esme Jackson LDL CALC NORMAL SEE BELOW Normal [facility] Comment on above: Result Comment: <100 mg/dl OPTIMAL 100 - 129 mg/dl NEAR OR ABOVE OPTIMAL 130 - 159 mg/dl BORDERLINE HIGH 160 - 189 mg/dl HIGH >190 mg/dl VERY HIGH Performed By: #### F T4 #### [facility] [address] [address] [address] Esme Jackson Triglyceride [Mass/Vol] 79 mg/dL Normal <=150 [facility] Comment on above: Performed By: #### F T4 #### [facility] [address] [place] [address] Dr. Esme Jackson VLDL CALC 15.8 mg/dL Normal [facility] Comment on above: Performed By: #### F T4 #### [facility] [address] [place] [address] Dr. Esme Jackson PROF 14(COMP METB)on 022 Albumin [Mass/Vol] 3.9 g/dL Normal 3.4-5.0 [facility] Comment on above: Performed By: #### F T4 #### [facility] [address] [place] [address] Dr. Esme Jackson Albumin/Globulin [Mass ratio] 1.1 {ratio} Normal [facility] Comment on above: Performed By: #### F T4 #### [facility] [address] [place] [address] Dr. Esme Jackson ALP [Catalytic activity/Vol] 57 U/L Normal 46-116 [facility] Comment on above: Performed By: #### F T4 #### [facility] [address] [place] [address] Dr. Esme Jackson ALT [Catalytic activity/Vol] 22 U/L Normal 16-63 [facility] Comment on above: Performed By: #### F T4 #### [facility] [address] [place] [address] Dr. Esme Jackson Anion gap [Moles/Vol] 12.6 mmol/L Normal [facility] Comment on above: Performed By: #### F T4 #### [facility] [address] [address] [address] Esme Jackson AST [Catalytic activity/Vol] 18 U/L Normal 15-37 [facility] Comment on above: Performed By: #### F T4 #### [facility] [address] [address] [address] Esme Jackson Bilirubin [Mass/Vol] 1.1 mg/dL Critically high 0.2-1.0 [facility] Comment on above: Performed By: #### F T4 #### [facility] [address] [address] [address] Esme Jackson Calcium [Mass/Vol] 9.0 mg/dL Normal 8.5-10.1 [facility] Comment on above: Performed By: #### F T4 #### [facility] [address] [address] [address] Esme Jackson Chloride [Moles/Vol] 103 mmol/L Normal 98-107 [facility] Comment on above: Performed By: #### F T4 #### [facility] [address] [address] [address] Esme Jackson CO2 [Moles/Vol] 27.2 mmol/L Normal 21.0-32.0 [facility] Comment on above: Performed By: #### F T4 #### [facility] [address] [address] [address] Esme Jackson Creatinine [Mass/Vol] 0.90 mg/dL Normal 0.70-1.30 [facility] Comment on above: Performed By: #### F T4 #### [facility] [address] [address] [address] Esme Jackson EGFR-AF PAPUA [place] >60 Normal >=60 [facility] Comment on above: Performed By: #### F T4 #### [facility] [address] [address] [address] Esme Jackson EGFR-NON AF P[place] >60 Normal >=60 [facility] Comment on above: Performed By: #### F T4 #### [facility] [address] [address] [address] Esme Jackson Globulin (S) [Mass/Vol] 3.4 g/dL Normal [facility] Comment on above: Performed By: #### F T4 #### [facility] [address] [place] [address] Dr. Esme Jackson Glucose [Mass/Vol] 185 mg/dL Critically high 74-106 T [facility] Comment on above: Performed By: #### F T4 #### [facility] [address] [place] [address] Dr. Esme Jackson Potassium [Moles/Vol] 3.8 mmol/L Normal 3.5-5.1 [facility] Comment on above: Performed By: #### F T4 #### [facility] [address] [place] [address] Dr. Esme Jackson Protein [Mass/Vol] 7.3 g/dL Normal 6.4-8.2 [facility] Comment on above: Performed By: #### F T4 #### [facility] [address] [place] [address] Dr. Esme Jackson Sodium [Moles/Vol] 139 mmol/L Normal 136-145 [facility] Comment on above: Performed By: #### F T4 #### [facility] [address] [place] [address] Dr. Esme Jackson Urea nitrogen [Mass/Vol] 12.0 mg/dL Normal 7.0-18.0 [facility] Comment on above: Performed By: #### F T4 #### [facility] [address] [place] [address] Dr. Esme Jackson Urea nitrogen/Creatinine [Mass ratio] 13.3 mg/mg Normal [facility] Comment on above: Performed By: #### F T4 #### [facility] [address] [place], [place] [id number] Dr. Esme Jackson US THYROIDon 06-22-2022 US [...] nodules. 1 year follow-up recommended TI-RADS: The [employer] TI-RADS committee's white paper recommendations for thyroid lesions classified as TR5 (highly suspicious) are listed below: > 0.5 cm. Annual ultrasound follow-up for up to 5 years. > 1.0 cm. FNA. J. Am Dionicio Radiol 2017;14:587-595. Electronically authenticated by: GEORGIE VIERA Date: 2022-06-22 17:28 Normal [facility] Follow Up (Endocrinology)on 04-24-2022 Follow Up [...] current use of insulin; Ordered By:Manide Osborne; Lipid Panel; Status:Active; Requested for:24Apr2022; Perform:Lab [...] For - Scheduling; Requested for:24Apr2022; Perform:[facility]; Due:23Jul2022;Ordered; For:Central [...] nodule; CATIE = N; Verified Transmission to [facility]; Last Updated By: [employer] 04/24/2022 10:33:22 AM Hypogonadism male, Pituitary macroadenoma Renew: Testosterone 50 MG/5GM (1%) Transdermal Gel; APPLY 1 PACKET ONE TIME DAILY DIRECTED Rx By: Mandie Osborne; Dispense: 0 Days ; #:90 X 5 GM Package; Refill: 1;For: Hypogonadism male, Pituitary macroadenoma; CATIE = N; Verified Transmission to [facility]; Last Updated By: [employer]; 04/24/2022 10:33:21 AM Pituitary macroadenoma Renew: Cabergoline 0.5 MG Oral Tablet; Take 1 tablet every other day Rx By: Mandie Osborne; Dispense: 80 Days ; #:40 Tablet; Refill: 3;For: Pituitary macroadenoma; CATIE = N; Verified Transmission to [facility]; Last Updated By: [employer]; 04/24/2022 10:33:26 AM Type 2 diabetes mellitus with other specified complication, with long-term current use of insulin Renew: Accu-Chek Alicia Plus In Vitro Strip; TEST TWICE DAILY Rx B (more content not included)... Normal [facility] Tobacco Screening.on 022 Adult depression screening assessment No [facility] [address] Work Phone: Fall risk assessment a) No falls within the last year [id number] [address] Work Phone: Tobacco use status [facility] b) No QG[facility]gooodtp[facility] [address] Work Phone: Vital Signs Date Time Vital Sign Value Performing Clinician Facility 05-24-2025 10:02-0400 Body height 176.53 cm Joseluis Quiroz MD Work Phone: [facility] 05-24-2025 10:02-0400 Body mass index (BMI) [Ratio] 27.9 kg/m2 Joseluis Quiroz MD Work Phone: [facility] 05-24-2025 10:02-0400 Body weight 87.08 kg Joseluis Quiroz MD Work Phone: [facility] 05-24-2025 10:02-0400 Diastolic blood pressure 62 mm[Hg] Joseluis Quiroz MD Work Phone: [facility] 05-24-2025 10:02-0400 Heart rate 68 /min Joseluis Quiroz MD Work Phone: [facility] 05-24-2025 10:02-0400 Respiratory rate 12 /min Joseluis Quiroz MD Work Phone: [facility] 05-24-2025 10:02-0400 SaO2% (BldA) [Mass fraction] 97 % Joseluis Quiroz MD Work Phone: [facility] 05-24-2025 10:02-0400 Systolic blood pressure 104 mm[Hg] Joseluis Quiroz MD Work Phone: [facility] 02-11-2025 13:12-0400 Body height 182.9 cm Ansley Chaves DO Work Phone: [facility] 02-11-2025 13:12-0400 Body mass index (BMI) [Ratio] 26.56 kg/m2 Ansley Chaves DO Work Phone: [facility] 02-11-2025 13:12-0400 Body weight 88.81 kg Ansley Chaves DO Work Phone: [facility] 12-29-2024 13:31-0500 Body height 182.9 cm Henrry Johnson MD Work Phone: [facility] 12-29-2024 13:31-0500 Body mass index (BMI) [Ratio] 26.72 kg/m2 Henrry Johnson MD Work Phone: [facility] 12-29-2024 13:31-0500 Body weight 89.36 kg Henrry Johnson MD Work Phone: [facility] 12-29-2024 13:31-0500 Diastolic blood pressure 59 mm[Hg] Henrry Johnson MD Work Phone: [facility] 12-29-2024 13:31-0500 Heart rate 77 /min Henrry Johnson MD Work Phone: [facility] 12-29-2024 13:31-0500 Systolic blood pressure 100 mm[Hg] Henrry Johnson MD Work Phone: [facility] 07-14-2024 11:22-0400 Body height 182.9 cm Henrry Johnson MD Work Phone: [facility] 07-14-2024 11:22-0400 Body mass index (BMI) [Ratio] 26.31 kg/m2 Henrry Johnson MD Work Phone: [facility] 07-14-2024 11:22-0400 Body weight 88 kg Henrry Johnson MD Work Phone: [facility] 07-14-2024 11:22-0400 Diastolic blood pressure 62 mm[Hg] Henrry Johnson MD Work Phone: [facility] 07-14-2024 11:22-0400 Systolic blood pressure 131 mm[Hg] Henrry Johnson MD Work Phone: [facility] 04-14-2024 12:35-0400 Diastolic blood pressure 63 mm[Hg] MD Joseluis Quiroz Work Phone: [facility] 04-14-2024 12:35-0400 Heart rate 54 /min MD Joseluis Quiroz Work Phone: [facility] 04-14-2024 12:35-0400 Respiratory rate 18 /min MD Joseluis Quiroz Work Phone: [facility] 04-14-2024 12:35-0400 SaO2% (BldA) [Mass fraction] 99 % MD Joseluis Quiroz Work Phone: [facility] 04-14-2024 12:35-0400 Systolic blood pressure 125 mm[Hg] MD Joseluis Quiroz Work Phone: [facility] 04-14-2024 11:02-0400 Body height 182.88 cm MD Joseluis Quiroz Work Phone: [facility] 04-14-2024 11:02-0400 Body weight 86.18 kg MD Joseulis Quiroz Work Phone: [facility] 03-18-2024 10:35-0400 Body height 182.88 cm MD Joseluis Quiroz Work Phone: [facility] 03-18-2024 10:35-0400 Body mass index (BMI) [Ratio] 25.7 kg/m2 MD Joseluis Quiroz Work Phone: [facility] [facility] [place] 03-18-2024 10:35-0400 Body weight 86.18 kg MD Joseluis Quiroz Work Phone: [facility] [place] 03-06-2024 10:52-0400 Body height 182.88 cm MD Joseluis Quiroz Work Phone: [facility] [place] 03-06-2024 10:52-0400 Body mass index (BMI) [Ratio] 26.9 kg/m2 MD Joseluis Quiroz Work Phone: [facility] [place] 03-06-2024 10:52-0400 Body temperature 99.2 [degF] MD Joseluis Quiroz Work Phone: [facility] [place] 03-06-2024 10:52-0400 Body weight 89.98 kg MD Joseluis Quiroz Work Phone: [facility] [place] 03-06-2024 10:52-0400 Diastolic blood pressure 60 mm[Hg] MD Joseluis Quiroz Work Phone: [facility] [place] 03-06-2024 10:52-0400 Heart rate 69 /min MD Joseluis Quiroz Work Phone: [facility] [place] 03-06-2024 10:52-0400 Respiratory rate 18 /min MD Joseluis Quiroz Work Phone: [facility] [place] 03-06-2024 10:52-0400 SaO2% (BldA) [Mass fraction] 95 % MD Joseluis Quiroz Work Phone: [facility] [place] 03-06-2024 10:52-0400 Systolic blood pressure 127 mm[Hg] MD Joseluis Quiroz Work Phone: [facility] [place] 10-29-2023 13:30-0500 Body height 182.88 cm Joseluis Quiroz Other [facility] [employer] Other 10-29-2023 13:30-0500 Body mass index (BMI) [Ratio] 26.09 kg/m2 Joseluis Quiroz Other [facility] [employer] Other 10-29-2023 13:30-0500 Body weight 87.27 kg Joseluis Quiroz Other [facility] [employer] Other 10-29-2023 13:30-0500 Diastolic blood pressure 72 mm[Hg] Joseluis Quiroz Other [facility] [employer] Other 10-29-2023 13:30-0500 SaO2% (BldA) [Mass fraction] 93 % Joselius Quiroz Other [employer] Other 10-29-2023 13:30-0500 Systolic blood pressure 130 mm[Hg] Joseluis Quiroz Other [employer] Other 08-19-2023 11:00-0400 Body height 182.88 cm Joseluis Quiroz Other [employer] Other 08-19-2023 11:00-0400 Body mass index (BMI) [Ratio] 25.36 kg/m2 Joseluis Quiroz Other [employer] Other 08-19-2023 11:00-0400 Body weight 84.82 kg Joseluis Quiroz Other [employer] Other 08-19-2023 11:00-0400 Diastolic blood pressure 61 mm[Hg] Joseluis Quiroz Other [employer] Other 08-19-2023 11:00-0400 Systolic blood pressure 126 mm[Hg] Joseluis Quiroz Other [employer] Other Encounters Encounter Date Encounter Type Care Provider Facility Start: 06-29-2025 End: 06-29-2025 Clinisync Result Encounter Henrry Johnson MD Work Phone: [facility] Unsolicited Start: 06-29-2025 End: 06-29-2025 Clinisync Result Encounter Henrry Johnson MD Work Phone: [facility] External [facility] Unsolicited Start: 05-24-2025 End: 05-24-2025 ambulatory Joseluis Quiroz MD Work Phone: [facility] Work Phone: Start: 05-24-2025 End: 05-24-2025 Patient encounter procedure Joseluis Quiroz MD -[facility] Work Phone: Start: 04-20-2025 End: 04-20-2025 ambulatory TONA [facility] Start: 04-15-2025 Non-patient / Non-visit Milan Peña MD -[facility] Work Phone: Start: 02-11-2025 End: [...] Department Unsolicited Start: 09-16-2024 End: 09-16-2024 ambulatory [facility] Start: 07-14-2024 End: 07-14-2024 Bamboo flowsheet Henrry [...] Medicine Comment on above: Insurance Authorizat ion ([employer]) Start: 05-20-2024 Patient encounter procedure Joseluis Quiroz MD Work Phone: [facility] [place] Start: 05-07-2024 End: 05-07-2024 Office outpatient visit 40 minutes Mandie Osborne MD Work Phone: [facility] Comment on above: Hypopituitarism (Mul ti) (Primary Dx); Hypogonadism male; Hyperparathyroidism (Multi); Hyperprolactinemia (Multi); Type 2 diabetes mellitus without complication, with long-term current use of insulin (Multi); Thyroid nodule Start: 04-14-2024 Non-patient / Non-visit MD Hiral Quiroz Work Phone: [facility] Work Phone: Start: 04-14-2024 End: 04-14-2024 Admission to same day surgery center MD Joseluis Quiroz Work Phone: [facility] Work Phone: Start: 04-14-2024 End: 04-14-2024 ambulatory MD Joseluis Quiroz Work Phone: [facility] Work Phone: Start: 03-23-2024 End: 03-23-2024 ambulatory RAPHAEL SPRINGER Not Available Start: 03-18-2024 End: 03-18-2024 Patient encounter procedure MD Joseluis Quiroz Work Phone: [facility] Work Phone: Start: 03-06-2024 End: 03-06-2024 Patient encounter procedure MD Joseluis Quiroz Work Phone: [facility] [place] Work Phone: Start: 12-23-2023 End: 12-23-2023 ambulatory Joseluis Quiroz Other [employer] Other Start: 12-23-2023 Telephone encounter Joseluis Quiroz [facility] Start: 10-29-2023 End: 10-29-2023 ambulatory Joseluis Quiroz Other [employer] Other Start: 10-29-2023 Office outpatient vi sit 15 minutes Joseluis Quiroz [facility] Start: 10-16-2023 End: 10-16-2023 ambulatory Joseluis Quiroz Other [employer] Other Start: 10-16-2023 Telephone encounter Joseluis Quiroz [facility] Start: 09-13-2023 End: 09-13-2023 ambulatory Joseluis Quiroz Other [employer] Other Start: 09-13-2023 Telephone encounter Joseluis Quiroz [facility] Start: 09-10-2023 End: 09-10-2023 ambulatory Joseluis Quiroz Other [employer] Other Start: 09-10-2023 Telephone encounter Joseluis Quiroz [facility] Start: 08-19-2023 End: 08-19-2023 ambulatory Joseluis Quiroz Other [employer] Other Start: 08-19-2023 Office outpatient vi sit 15 minutes Joseluis Quiroz [facility] Start: 07-31-2023 End: 07-31-2023 ambulatory Joseluis Quiroz Other [employer] Other Start: 07-31-2023 Telephone encounter Joseluis Quiroz [facility] Start: 05-29-2023 Rx Renewal Cbarera Dupont Work Phone: [facility] [address] Work Phone: Start: 04-08-2023 Rx Renewal Cabrera Dupont Work Phone: [facility] [address] [place] Work Phone: Start: 02-28-2023 End: 03-01-2023 ambulatory TONA ROSENBERG Facility:H1 Start: 01-30-[address] JOSELUIS QUIROZ Facil ity:H1 Start: 01-22-2023 AUDIT Cabrera Dupont Work Phone: [facility] Work Phone: Start: 01-22-2023 Rx Renewal Cabrera [...] sit 25 minutes Cabrera Dupont Work Phone: AK-Qqrejpmojjaek-BGE [address] Work Phone: Start: 10-10-2022 ambulatory Referral Self Facility: [id number] Start: 09-28-2022 AUDIT Cabrera Dupont Work Phone: [facility] Work Phone: Start: 07-13-2022 Rx Renewal Cabrera Dupont Work Phone: [facility] [address] [address] [place] Work Phone: Start: 07-02-2022 Telephone encounter Mandie sun MD Work Phone: Endocrinology Comment on above: Received Outside Med [facility] Records (Received Thyroid US report from [facility]. Indexed into chart. ) Start: 06-22-2022 End: 06-23-[address] DOCTOR BUSBY Facility:H1 Start: 04-24-2022 Office outpatient vi sit 40 minutes Cabrera Dupont Work Phone: [facility]hday[facility] [address] Work Phone: Start: 04-24-[address] Cabrera Dupont Facility:[id number] Start: 03-27-2022 AUDIT Cabrera Dupont Work Phone: JO-Fykzgnvuoiwqe[facility] Work Phone: Start: 01-23-2022 KALPESH Dupont Work Phone: XR-Vwczolzmuiqwr-[facility] Work Phone: Start: 12-11-2021 Rx Renewal Cabrera Dupont Work Phone: TJ-Mljcsxfvymjdc-[facility] Work Phone: Start: 11-08-2021 KALPESH Dupont Work Phone: XT-Izbkhvzxoudnt-Lckmhtd[facility] Work Phone: Start: 08-21-2021 KALPESH Dupont Work Phone: GB-Gbexumbzkhgte-UUP [address] Work Phone: Start: 05-31-2021 AUDIT Cabrera Dupont Work Phone: FR-Xhoeatdsotptj-YZL [place] [address] Work Phone: Start: 06-20-2017 End: 06-21-2017 Ambulatory DEFAULT PHYSICIAN Facility:[facility] Procedures Date Procedure Procedure Detail Performing [...] [place] [address] Ansley Chaves DO [address] [place], [place] [id number] Primary osteoarthritis of right hip (Primary Dx) [facility] NARAYAN GARNICA Comment on above: Primary osteoarthritis of right hip (Jocelynn mary ann Dx) Start: 12-29-2024 End: 12-29-2024 Patient encounter procedure 12/29/2024 1:30 PM EST Office Visit [facility] [address] [place] [address] Henrry Johnson MD [address] [place] [address] [facility] Start: 07-14-2024 End: 07-14-2024 Patient encounter procedure 07/14/2024 11:30 AM EDT Office Visit [facility] [address] [place] [address] Henrry Johnson MD [address] [place] [address] Arrived [facility] Comment on above: Arrived Start: 07-12-2024 Influenza vaccination [facility] Start: 05-07-2024 End: 05-07-2025 Comprehensive metabolic 2000 panel - Serum or Plasma Comprehensive Metabolic Panel Lab Routine Hypopituitarism (Multi) Hypogonadism male Hyperparathyroidism (Multi) Hyperprolactinemia (Multi) Type 2 diabetes mellitus without complication, with long-term current use of insulin (Multi) Expected: 05/07/2024 (Approximate), Expires: 05/07/2025 [facility] Work Phone: Comment on above: Expected: 05/07/2024 (Approximate), Expi res: 05/07/2025 Start: 05-07-2024 End: 05-07-2025 Cortisol [Mass/volume] in Serum or Plasma Cortisol Lab Routine Hypopituitarism (Multi) Hypogonadism male Hyperparathyroidism (Multi) Hyperprolactinemia (Multi) Type 2 diabetes mellitus without complication, with long-term current use of insulin (Multi) Expected: 05/07/2024 (Approximate), Expires: 05/07/2025 [facility] Service Area Work Phone: Comment on above: Expected: 05/07/2024 (Approximate), Expi res: 05/07/2025 Start: 05-07-2024 End: 05-07-2025 Hemoglobin A1c/Hemoglobin.total in Blood Hemoglobin A1C Lab Routine Hypopituitarism (Multi) Hypogonadism male Hyperparathyroidism (Multi) Hyperprolactinemia (Multi) Type 2 diabetes mellitus without complication, with long-term current use of insulin (Multi) Expected: 05/07/2024 (Approximate), Expires: 05/07/2025 [facility] Work Phone: Comment on above: Expected: 05/07/2024 (Approximate), Expi res: 05/07/2025 Start: 05-07-2024 End: 05-07-2025 Lipid 1996 panel - Serum or Plasma Lipid Panel Lab Routine Hypopituitarism (Multi) Hypogonadism male Hyperparathyroidism (Multi) Hyperprolactinemia (Multi) Type 2 diabetes mellitus without complication, with long-term current use of insulin (Multi) Expected: 05/07/2024 (Approximate), Expires: 05/07/2025 [facility] Work Phone: Comment on above: Expected: 05/07/2024 (Approximate), Expi res: 05/07/2025 Start: 05-07-2024 End: 05-07-2025 Microalbumin/Creatinine [Mass Ratio] in Urine Albumin-Creatinine Ratio, Urine Random Lab Routine Hypopituitarism (Multi) Hypogonadism male Hyperparathyroidism (Multi) Hyperprolactinemia (Multi) Type 2 diabetes mellitus without complication, with long-term current use of insulin (Multi) Expected: 05/07/2024 (Approximate), Expires: 05/07/2025 [facility] Work Phone: Comment on above: Expected: 05/07/2024 (Approximate), Expi res: 05/07/2025 Start: 05-07-2024 End: 05-07-2025 MR Pituitary and Sella turcica WO and W contrast IV MR sella w and wo IV contrast Imaging Routine Hypopituitarism (Multi) Hypogonadism male Hyperparathyroidism (Multi) Hyperprolactinemia (Multi) Type 2 diabetes mellitus without complication, with long-term current use of insulin (Multi) Thyroid nodule Expected: 05/07/2024, Expires: 05/07/2025 [facility] Work Phone: Comment on above: Expected: 05/07/2024, Expires: Start: 05-07-2024 End: 05-07-2025 Parathyrin.intact [Mass/volume] in Serum or Plasma Parathyroid Hormone, Intact Lab Routine Hypopituitarism (Multi) Hypogonadism male Hyperparathyroidism (Multi) Hyperprolactinemia (Multi) Type 2 diabetes mellitus without complication, with long-term current use of insulin (Multi) Thyroid nodule Expected: 05/07/2024 (Approximate), Expires: 05/07/2025 [facility] Work Phone: Comment on above: Expected: 05/07/2024 (Approximate), Expi res: 05/07/2025 Start: 05-07-2024 End: 05-07-2025 Prolactin [Mass/volume] in Serum or Plasma Prolactin Lab Routine Hypopituitarism (Multi) Hypogonadism male Hyperparathyroidism (Multi) Hyperprolactinemia (Multi) Type 2 diabetes mellitus without complication, with long-term current use of insulin (Multi) Expected: 05/07/2024 (Approximate), Expires: 05/07/2025 [facility] Work Phone: Comment on above: Expected: 05/07/2024 (Approximate), Expi res: 05/07/2025 Start: 05-07-2024 End: 05-07-2025 Testosterone,Free and Total Testosterone,Free and Total Lab Routine Hypopituitarism (Multi) Hypogonadism male Hyperparathyroidism (Multi) Hyperprolactinemia (Multi) Type 2 diabetes mellitus without complication, with long-term current use of insulin (Multi) Expected: 05/07/2024 (Approximate), Expires: 05/07/2025 [facility] Work Phone: Comment on above: Expected: 05/07/2024 (Approximate), Expi res: 05/07/2025 Start: 05-07-2024 End: 05-07-2025 Thyroxine (T4) free [Mass/volume] in Serum or Plasma Thyroxine, Free Lab Routine Hypopituitarism (Multi) Hypogonadism male Hyperparathyroidism (Multi) Hyperprolactinemia (Multi) Type 2 diabetes mellitus without complication, with long-term current use of insulin (Multi) Expected: 05/07/2024 (Approximate), Expires: 05/07/2025 [facility] Work Phone: Comment on above: Expected: 05/07/2024 (Approximate), Expi res: 05/07/2025 Start: 04-14-2024 [facility] [place] Start: 11-11-2023 Advance Directive Discussion Advance Directive Discussion [facility] Start: 07-12-2023 Covid-19 Vaccine ( season) Covid-19 Vaccine () [facility] Start: 10-10-2022 VIRKEENA, Provider: Mandie Osborne, Status: Pen, Time: 11:15 AM AMY, Provider: Mandie Osborne, Status: Pen, Time: 11:15 AM MF-Estuslwzcbcgj-T [facility] Work Phone: Start: 07-12-2022 Influenza vaccination INFLUENZA (#1) [facility] Start: 04-24-2022 AMY, Provider: Ynes Sahni, Status: Pen, Time: 1:00 PM AMY, Provider: Ynes Sahni, Status: Pen, Time: 1:00 PM NZ-Ltkscjhoagqyx-J [facility] Work Phone: Start: 01-21-2022 Diabetes Screening Diabetes Screening [facility] Start: 11-11-2021 ADVANCE DIRECTIVE DISCUSSION ADVANCE DIRECTIVE DISCUSSION [facility] Start: 08-24-2021 Lipid panel Lipid Screening [facility] Start: 07-24-2019 Hemoglobin A1c/Hemoglobin.total in Blood HBA1C [facility] Start: 08-12-2018 Pneumococcal Vaccine: 65+ (2 of 2 - PCV) Pneumococcal Vaccine: 65+ (2 of 2 - PCV) [facility] Start: 08-12-2018 Pneumococcal Vaccine: 65+ Years (2 of 2 - PCV) Pneumococcal Vaccine: 65+ Years (2 of 2 - PCV) [facility] Start: 10-07-2017 Shingrix Vaccine (3 of 3) Shingrix Vaccine (3 of 3) [facility] Start: 08-24-2017 Hepatitis B screening URINE ALBUMIN:CREATININE RATIO [facility] Start: 08-24-2017 Hepatitis B surface antibody level LDL CHOLESTEROL [facility] Start: 08-14-2017 3 comp foot exam completed DIABETIC FOOT EXAM [facility] Start: 11-22-2016 Hepatitis C antibody, confirmatory test DILATED RETINAL EXAM [facility] Start: 2016 PNEUMOCOCCAL: 65+ (1 - PCV) PNEUMOCOCCAL: 65+ (1 - PCV) [facility] Start: 2011 RSV patients and/or patients aged 60+ years (1 - 1-dose 60+ series) RSV patients and/or patients aged 60+ years (1 - 1-dose 60+ series) [facility] Start: 2011 RSV Vaccine (1 - 1-dose 60+ series) RSV Vaccine (1 - 1-dose 60+ series) [facility] Start: 2001 SHINGRIX VACCINE (1 of 2) SHINGRIX VACCINE (1 of 2) [facility] Start: 2001 Zoster Vaccines (1 of 2) Zoster Vaccines (1 of 2) [facility] Start: 1996 COLOGUARD (FIT-DNA) COLOGUARD (FIT-DNA) [facility] Start: 1996 Colonoscopy COLONOSCOPY [facility] Start: 1996 COLORECTAL CANCER SCREENING COLORECTAL CANCER SCREENING [facility] Start: [address] COLONOGRAPHY [facility] Start: 1996 FECAL OCCULT BLOOD FECAL OCCULT BLOOD [facility] Start: 1996 Screening for malignant neoplasm of colon [facility] Start: 1996 SIGMOIDOSCOPY SIGMOIDOSCOPY [facility] Start: 1973 DTaP/Tdap/Td Vaccines (1 - Tdap) DTaP/Tdap/Td Vaccines (1 - Tdap) [facility] Start: 1970 Urine microalbumin profile [facility] Start: 1970 Urine screening for protein Diabetes: Urine Protein Screening [facility] Start: 1969 Anxiety Screening Anxiety Screening [facility] Start: 1969 Depression Screening Depression Screening [facility] Start: 1969 HEPATITIS C SCREENING HEPATITIS C SCREENING [facility] Start: 1969 Hepatitis C screening Hepatitis C Screening [facility] Start: 1963 Adult depression screening assessment DEPRESSION SCREENING [facility] Start: 1961 Diabetic foot examination Diabetes: Foot Exam [facility] Start: 1961 Glaucoma screening Diabetes: Retinopathy Screening [facility] Start: 1957 Pneumococcal Vaccine: 65+ Years (1 of 2 - PCV) Pneumococcal Vaccine: 65+ Years (1 of 2 - PCV) [facility] Start: 02-08-1952 COVID-19 VACCINE (#1) COVID-19 VACCINE (#1) [facility] Start: 1951 ABDOMINAL AORTIC ANEURYSM SCREENING ABDOMINAL AORTIC ANEURYSM SCREENING [facility] Start: 1951 Abdominal aortic aneurysm screening Abdominal Aortic Aneurysm Screening [facility] Start: 1951 Hemoglobin A1c measurement Diabetes: Hemoglobin A1C [facility] Start: 1951 Lipid panel Lipid Panel [facility] Start: 1951 Medicare Annual Wellness Visit Medicare Annual Wellness Visit (AWV) [facility] Start: 1951 Screening for malignant neoplasm of colon [facility] Start: 1951 Thyroid stimulating hormone measurement TSH Level [facility] Comprehensive metabo lic 2000 panel - Serum or Plasma [facility] [place] Patient Education Colon polyps D iverticulosis (DC) [facility] Work Phone: US Thyroid gland US thyroid Imag ing Routine Hypopituitarism (Multi) Hypogonadism male Hyperparathyroidism (Multi) Hyperprolactinemia (Multi) Type 2 diabetes mellitus without complication, with long-term current use of insulin (Multi) Thyroid nodule Ordered: 05/07/2024 [facility] Work Phone: Comment on above: Ordered: 05/07/2024 XR Abdomen Single view [facility] Immunizations Immunization Date Immunization Notes Care Provider Fa cili 08-21-2024 influenza virus vacc ine, unspecified formulation Henrry Johnson MD Work Phone: [facility] 10-12-2023 Influenza vaccine, quadrivalent, adjuvanted Joseluis Quiroz MD Work Phone: [facility] [place] 10-12-2023 influenza virus vacc ine, unspecified formulation Henrry Johnson MD Work Phone: [facility] 08-15-2022 Fluzone High-Dose Quadrivalent 0.7 ML Intramuscular Suspension Prefilled Syringe Cabrera Dupont Work Phone: [facility] [place] 09-06-2021 Fluad Quadrivalent 0 .5 ML Intramuscular Prefilled Syringe Cabrera Dupont Work Phone: [facility] [place] 01-18-2021 Neva COVID-19 Vac cine 0.5 ML Intramuscular Suspension Cabrera Dupont Work Phone: [facility] [place] 09-08-2020 Fluad Quadrivalent 0 .5 ML Intramuscular Prefilled Syringe Cabrera Dupont Work Phone: [facility] [place] 08-24-2020 influenza, seasonal, injectable Cabrera Dupont Work Phone: [facility] [place] 08-24-2019 Seasonal trivalent influenza vaccine, adjuvanted, preservative free Cabrera Dupont Work Phone: [facility] [place] 08-04-2018 influenza, injectabl e, quadrivalent, preservative free Cabrera Dupont Work Phone: [facility] [place] 08-04-2018 influenza virus vacc ine, unspecified formulation Rickey Osborne MD Work Phone: [facility] 07-19-2018 influenza, high dose seasonal, preservative-free Cabrera Dupont Work Phone: [facility] [place] 08-21-2017 influenza, high dose seasonal, preservative-free Cabrera Dupont Work Phone: [facility] [place] 08-12-2017 pneumococcal polysaccharide vaccine, 23 valent Cabrera Dupont Work Phone: [facility] [place] 08-12-2017 zoster vaccine recombinant Cabrera Dupont Work Phone: [facility] [place] 08-21-2016 influenza, high dose seasonal, preservative-free Cabrera Dupont Work Phone: [facility] [place] 2015 influenza, seasonal, injectable, preservative free Cabrera Dupont Work Phone: [facility] [place] 08-04-2014 influenza, seasonal, injectable Cabrera Dupont Work Phone: [facility] [place] 08-04-2014 pneumococcal polysaccharide vaccine, 23 valent Cabrera Dupont Work Phone: [facility] [place] 08-04-2014 zoster vaccine, live Cabrera Dupont Work Phone: [facility] [place] Payers Date Payer Category Payer Self-pay [id number] 2023 Medicare (Managed Care) [employer] [id number] 2018 Medicare [id number] 2013 Unknown 1959 Self-pay [id number] 1959 Unknown [id number] 1951 Unknown [id number] 2.840.1.471556.3.579. 2.356 1951 Unknown [id number] 2.840.1.177010.3.579. 2.356 1951 Unknown [id number] 2.16.840.1.480408.3.579. 2.593 1951 Unknown [id number] 2.840.1.886803.3.579. 2.593 1951 Unknown [id number] 2.16.840.1.010119.3.579. 2.593 1951 Unknown [id number] 2.16.840.1.483962.3.579. 2.593 1951 Unknown [id number] 2.16.840.1.894233.3.579. 2.593 1951 Unknown [id number] 2.16.840.1.322266.3.579. 2.593 1951 Unknown [id number] 2.16.840.1.816715.3.579. 2.593 1951 Unknown [id number] 2.16.840.1.961479.3.579. 2.1259 1951 Unknown [id number] 2.16.840.1.204181.3.579. 2.1259 1951 Unknown [id number] 2.16.840.1.344182.3.579. 2.1259 1951 Unknown [id number] 2.16.840.1.536183.3.579. 2.1259 1951 Unknown [id number] 2.16.840.1.044037.3.579. 2.1259 1951 Unknown [id number] 2.16.840.1.138713.3.579. 2.1259 Unknown [id number] 2.16.840.1.618421.3.579. 2.593 Unknown [facility] [id number] Unknown [id number] 2.16.840.1.574896.3.579. 2.531 Social History Date Type Detail Facility Start: 01-21-2019 End: 02-11-2025 Former smoker Former smoker [facility]Mupmd[facility]hrame[facility] [address] Work Phone: Start: 06-30-2013 End: 07-09-2024 Tobacco smoking status NHIS Ex-smoker [facility] Start: 11-11-1966 End: 12-12-1992 History of tobacco use Current smoker [facility] Start: 11-11-1966 End: 12-12-1992 History of tobacco use Cigarette Smoker [facility] Start: 06-30-2013 End: 07-09-2024 Tobacco use and exposure Smokeless tobacco non-user [facility] Start: 01-21-2019 Alcohol intake Current non-dr staff technologist of alcohol (finding) [facility] Start: 1950 Sex Assigned At Not on file [facility] Start: 01-21-2019 End: 02-11-2025 Sex Assigned At [facility] [employer] Other Start: 1950 Sex Assigned At Male [facility] National Score (1-100), lower number is lower risk Not on file [facility] Tobacco smoking status ILIS Tobacco smoking consumption unknown [facility] Work Phone: Start: 07-14-2024 End: 02-11-2025 Alcoholic beverage intake Lifetime non-drinker (finding) [facility] Sex Male (finding) [facility] Medical Equipment Procedure Code Equipment Code Equipment Original Text Equipment Identifier Dates [id number], [id number], [id number] Start: 09-15-2018 Comment on above: Use as [...] Date & Type Note Facility 04-20-2025 Note ME Electrophysiology Consult Note [facility] Reason for Consultation: Atrial fibrillation, [...] on 10/15 and he went to the [facility] emergency department was found to [...] Use: Not At Risk (12/24/2019) Received from [facility], [facility] AUDIT-C Frequency of Alcohol Consumption: Never [...] on file Intimate Partner Violence: Unknown (05/05/2024) ME Safety & Environment Fear of Current or [...] to Visit Me (more content not included)... [facility] 02-11-2025 History of Present illness [...] 12:10 PM EDT documented in this encounter [facility] 12-29-2024 History of Present illness Narrative Subjective Patient ID: Alexis Liang is a 74 y.o. male who presents for Thyroid Nodule (5 month ultrasound [facility] 12/23/24) Thyroid US shows a 4mm RT and 9mm LT nodule, compared to an 8mm RT nodule 6 mo ago. Family History Problem Relation Name Age of Onset Diabetes type II Mother Active Ambulatory Problems Diagnosis Date Noted Alzheimer's disease with late onset ([facility]) 06/27/2024 Dementia in other diseases classified elsewhere, unspecified severity, without behavioral disturbance, psychotic disturbance, mood disturbance, and anxiety ([facility]) 06/27/2024 History of ischemic stroke 06/27/2024 Personality change 06/27/2024 Pituitary mass ([facility]) 06/27/2024 Depression ([facility]) 06/27/2024 Memory impairment 06/27/2024 Abnormal stress test 04/28/2015 Acquired hypothyroidism (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) 11/28/2022 Carotid stenosis, bilateral 04/01/2024 Chronic systolic heart failure ([facility]) 11/15/2022 Constipation 07/09/2024 CVA (cerebral vascular accident) ([facility]) 10/26/2022 Diverticulosis of colon 07/09/2024 History of transient ischemic attack (TIA) 10/26/2022 Hypercalcemia 12/23/2012 Hyperlipidemia ([facility]) 07/09/2024 Hypertension ([facility]) 07/09/2024 Hypogonadism male 12/23/2012 Incontinence of feces with fecal urgency 07/09/2024 Paroxysmal atrial fibrillation ([facility]) 10/18/2022 Persistent atrial fibrillation (HCC) ([facility]) 10/16/2022 PFO (patent foramen ovale) 11/28/2022 Primary hyperparathyroidism ([facility]) 12/24/2019 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[facility]) 11/16/2009 Pure hypercholesterolemia ([facility]) 07/09/2024 Thyroid nodule ([facility]) 11/16/2009 Type 2 diabetes mellitus with hyperglycemia ([facility]) 07/09/2024 Coronary artery disease involving [place] coronary artery of [place] heart without angina pectoris ([facility]) 09/16/2024 Diabetes mellitus due to underlying condition with diabetic cataract ([facility]) 09/16/2024 Nonischemic cardiomyopathy ([facility]) 09/16/2024 Overweight (BMI 25.0-29.9) 12/29/2024 Type 2 diabetes mellitus without complication ([facility]) 09/24/2012 Vasovagal syncope 10/26/2022 Resolved Ambulatory Problems Diagnosis Date Noted Diarrhea 07/09/2024 Dietary counseling and surveillance 07/09/2024 Rotator cuff strain 06/16/2013 S/P ablation of atrial fibrillation 05/02/2023 Past Medical History: Diagnosis Date Afib ([facility]) CHF (congestive heart failure) ([facility]) Diabetes mellitus type II, controlled ([facility]) GERD (gastroesophageal reflux disease) Hypercholesterolemia ([facility] Hypogonadism in male Hypothyroid ([facility]) Stroke ([facility]) 2016 Past Surgical History: Procedure Laterality Date [...] annually if stable documented in this encounter [facility] 09-16-2024 Note ME Cardiology - [facility] Subjective Gadiel Liang is a 74 [...] in the mor (more content not included)... [facility] 07-14-2024 History of Present illness Narrative Subjective Patient ID: Alexis Liang is a 73 y.o. male who presents for Thyroid Nodule (Ultrasound 06/09/24. ) Pt has a long h/o thyroid nodules and a remote h/o parathyroidectomy. H/O prolactinoma tx medically. 05/3024 thyroid US shows a [id number] RT TR5 nodule. 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 Review of Systems All other systems reviewed and are negative. Family History Problem Relation Name Age of Onset Diabetes type II Mother Active Ambulatory Problems Diagnosis Date Noted Alzheimer's disease with late onset ([facility]/HCC) 06/27/2024 Dementia in other diseases classified elsewhere, unspecified severity, without behavioral disturbance, psychotic disturbance, mood disturbance, and anxiety (CMS/HCC) 06/27/2024 History of ischemic stroke 06/27/2024 Personality change 06/27/2024 Pituitary mass (CMS/HCC) 06/27/2024 Depression (CMS/HCC) 06/27/2024 Memory impairment 06/27/2024 Abnormal stress test 04/28/2015 Acquired hypothyroidism (CMS/HCC) 07/09/2024 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CMS/HCC) 02/23/2015 Atrial flutter (CMS/HCC) 11/28/2022 Carotid stenosis, bilateral 04/01/2024 Chronic systolic heart failure ([facility]) 11/15/2022 Constipation 07/09/2024 CVA (cerebral vascular accident) ([facility]) 10/26/2022 Diverticulosis of colon 07/09/2024 History of transient ischemic attack (TIA) 10/26/2022 Hypercalcemia 12/23/2012 Hyperlipidemia ([facility]) 07/09/2024 Hypertension ([facility]) 07/09/2024 Hypogonadism male 12/23/2012 Incontinence of feces with fecal urgency 07/09/2024 Paroxysmal atrial fibrillation ([facility]) 10/18/2022 Persistent atrial fibrillation (HCC) ([facility]) 10/16/2022 PFO (patent foramen ovale) 11/28/2022 Primary hyperparathyroidism ([facility]) 12/24/2019 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[facility]) 11/16/2009 Pure hypercholesterolemia ([facility]) 07/09/2024 Thyroid nodule ([facility]) 11/16/2009 Type 2 diabetes mellitus with hyperglycemia ([facility]) 07/09/2024 Resolved Ambulatory Problems Diagnosis Date Noted Diarrhea 07/09/2024 Dietary counseling and surveillance 07/09/2024 Rotator cuff strain 06/16/2013 S/P ablation of atrial fibrillation 05/02/2023 Past Medical History: Diagnosis Date Afib ([facility]) CHF (congestive heart failure) ([facility]) Diabetes mellitus type II, controlled ([facility]) GERD (gastroesophageal reflux disease) Hypercholesterolemia ([facility] Hypogonadism in male Hypothyroid ([facility]) Stroke ([facility]) 2016 Past Surgical History: Procedure Laterality Date [...] sig growth found documented in this encounter [facility] 06-18-2024 Telephone encounter Note Summary: [facility] Received a mail from [facility] with a notice on the Authorization for MRI, Brain, W/O Contrast Dated: 06/04/24 Status: Approve Service Requested: MRI, Brain, W/O Contrast Effective Dates: 06/04/2024 - 09/01/2024 Reference #: [id number] Uploaded into scan docs. Please allow time for upload. [facility] 06-18-2024 Miscellaneous Notes Summary: [facility] Received a mail from [facility] with a notice on the Authorization for MRI, Brain, W/O Contrast Dated: 06/04/24 Status: Approve Service Requested: MRI, Brain, W/O Contrast Effective Dates: 06/04/2024 - 09/01/2024 Reference #: [id number] Uploaded into scan docs. Please allow time for upload. documented in this encounter [facility] 05-07-2024 History of Present illness Narrative [...] which included preparing to see the patient, [id number] patient care, completing clinical documentation, obtaining and [...] Mandie Osborne MD documented in this encounter [facility] Work Phone: 04-14-2024 Procedure note [facility] 10-29-2023 Evaluation note Encounter Date [...] improved w present med increase in dose. [employer] Other 11-03-2023 Evaluation note* Encounter Date Diagnosis Assessment Notes Treatment Notes Treatment Clinical Notes Sep, Anxiety (ICD-10 - F41.9) [employer] Other 10-31-2023 Evaluation note* Encounter Date Diagnosis Assessment Notes Treatment Notes Treatment Clinical Notes Aug, Anxiety (ICD-10 - F41.9) [employer] Other 10-09-2023 Evaluation note* Encounter Date [...] from 25mg to 50mg for better results. [employer] Other 11-30-2022 Chief complaint Narrative - Reported* [...] Patient presents for a follow up visit. HA[facility]Tryxwqzbdaohu[facility] [address] Work Phone: 1(128) 487-757108-22-2022 Miscellaneous Notes* Telephone Encounter - Janee Hughes - 07/02/2022 2:37 PM EDT Received Thyroid US report from [facility]. Indexed into chart. [facility] Chief complaint Narrative - Reported* An [...] follow-up for hypothyroidism, pituitary, and diabetes today. [facility] [address] Work Phone: Evaluation noteNo [employer] Other Evaluation note* Diagnosis Onset Date Resolution Status Bronchitis noneactive Constipation acute Incontinence of feces with fecal urgency acute [facility] Work Phone: Evaluation note* Diagnosis Hypopituitarism (Multi)- Primary Panhypopituitarism Hypogonadism male Other testicular hypofunction Hyperparathyroidism (Multi) Hyperparathyroidism, unspecified Hyperprolactinemia (Multi) Other and unspecified anterior pituitary hyperfunction Type 2 diabetes mellitus without complication, with long-term current use of insulin (Multi) Thyroid nodule Nontoxic uninodular goiter documented in this encounter [facility] Work Phone: Evaluation note* Diagnosis Thyroid [...] circulatory complications acute May 24, 2025 9:50am [facility] [place] Work Phone: History and physical note Author Merly Paul [facility] April 14, 2024 11:26am Note Date/Time April 14, 2024 11:26 am [facility] [address] [place] [address] Gastroenterology H&P Signed Patient: Gadiel Liang MR#: [id number] : 1950 Acct:[id number] Age/Sex: 73 / M Adm Date: 4 Loc: Room: Type: [facility] Attending Dr: Merly Paul DO [...] signed by Merly Paul DO> 04/14/24 [address] [facility] Work Phone: History general Narrative - Reported* Type Description Date Medical History Diabetes mellitus Medical History Hyperlipemia Medical History Acid reflux Medical History Hiatal hernia Medical History Pituitary tumor Surgical History knee surgery Surgical History shoulder surgery Surgical History thyroid nodule removed Hospitalization History hematoma related to fall 2011 Hospitalization History TIA 03/2020 Hospitalization History DEHYDRATION 09/2020 [employer] Other History of Present illness Narrative* [...] * -Most recent US on 12/2019 in [place], records not available * -Due for US [...] on file * Occupational History * Occupation: [employer] * Employer: [employer] * Comment: retired * Tobacco Use * Smoking status: Former Smoker * Years: 16.00 * Quit date: 12/12/1992 * Years since quittin.1 * Smokeless tobacco: Never Used * Substance and Sexual Activity * Alcohol use: No * Drug use: No * Sexual activity: Not on file * Other Topics * Concerns: * Not on file * Social History Narrative * resides in [place] 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 KQ[facility]rot[facility] [address] Work Phone: History of [...] * -Most recent US on 12/2019 in [place], records not available * -Due for US [...] on file * Occupational History * Occupation: [employer] * Employer: [employer] * Comment: retired * Tobacco Use * Smoking status: Former Smoker * Years: 16.00 * Quit date: 12/12/1992 * Years since quittin.1 * Smokeless tobacco: Never Used * Substance and Sexual Activity * Alcohol use: No * Drug use: No * Sexual activity: Not on file * Other Topics * Concerns: * Not on file * Social History Narrative * resides in [place] 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 MF-Onklpvvnqvgmg-QFG [address] Work Phone: reason for referral (narrative)No reason for referral information availableKettering Health [place] Work Phone: Summary Purpose Family History Unknown [...] [place] [address] [address] [facility] [place] [address] Referral ID Status Reason Start Date Expiration Date Visits Requested Visits Authorized [id number] Pending Review Perform Procedure 05/07/2024 05/07/2025 1 1 Specialty Diagnoses / Procedures Referred By Saeid vences Referred To Contact Radiology Diagnoses Hypopituitarism (Multi) Hypogonadism male Hyperparathyroidism (Multi) Hyperprolactinemia (Multi) Type 2 diabetes mellitus without complication, with long-term current use of insulin (Multi) Thyroid nodule [place] [address] [address] [facility] [place] [address] Referral ID Status Reason Start Date Expiration Date Visits Requested Visits Authorized [id number] Authorized Perform Procedure 05/07/2024 05/07/2025 1 1 Additional Source Comments (unrecognized sect ion and content) No Status Records FoundNo Status Records FoundNo Status Records FoundNo Status Records FoundNo Status Records FoundNo Status Records FoundNo Status Records FoundNo Status Records Found INFORMATION SOURCE (unrecogn ized section and content) DATE CREATED AUTHOR 05/07/2018 [facility] DATE CREATED AUTHOR AUTHOR'S ORGANIZ ATION 10/11/2022 [facility] DATE CREATED AUTHOR AUTHOR'S ORGANIZ ATION 10/11/2022 [employer] DATE CREATED AUTHOR AUTHOR'S ORGANIZ ATION 03/04/2023 [facility] DATE CREATED AUTHOR AUTHOR'S ORGANIZ ATION 04/22/2024 [facility] DATE CREATED AUTHOR AUTHOR'S ORGANIZ ATION 06/21/2024 [facility] [place] [facility] DATE CREATED AUTHOR AUTHOR'S ORGANIZ ATION 02/14/2025 [facility] EPIC DATE CREATED AUTHOR AUTHOR'S CORTES MEDRANO 06/27/2025 [facility] Source Comments (unrecognize d section and content) In the event this informatio n is protected by the Federal Confidentiality of Alcohol and Drug Abuse Patient Records regulations: The Federal rules restrict any use of the information to criminally investigate or prosecute any alcohol or drug abuse patient.[facility] Hospital[facility] the event this information is protected by the Federal Confidentiality of Alcohol and Drug Abuse Patient Records regulations: The Federal rules restrict any use of the information to criminally investigate or prosecute any alcohol or drug abuse patient.[facility] Reason for Visit (unrecogniz ed section and content) Reason Comments Received Outside Medical Records Receive d Thyroid US report from [facility]. Indexed into chart. Reason Comments Insurance Authorization [facility] Reason Comments Follow-up Pituitary Problem Reason Comments Thyroid Nodule Ultrasound 06/09/24. Reason Comments Thyroid Nodule 5 month ultrasound T 12/23/24 Reason Comments Osteoarthritis Specialty Diagnoses / Procedures Referred By Saeid vences Referred To Contact Orthopaedic Surgery Diagnoses Primary osteoarthritis of right hip Isaura Garber, BUDDER [address] [place] [address] Phone: tel: fax: Ansley Chaves, DO [address] [facility] [address] [place], [place] Phone: tel: fax: Referral ID Status Reason Start Date Expiration Date V isits Requested Visits Authorized [id number] Closed Specialty Services Required 02/01/2025 07/31/2025 1 [...] May 24, 2025 End: May 24, 2025 Mica Spreader Relationship Specialty Start Date End Date Cabrera [...] Other Provider Active Start: April 14, 2024 Mica Spreader Relationship Specialty Start Date End Date Cabrera Dupont MD PCP - General Family Medicine 01/21/19 Mica Spreader Relationship Specialty Start Date End Date Cabrera Dupont MD [address] [place] [facility] [place] [address] PCP - General 11/30/20 Mica Spreader Relationship Specialty Start Date End Date Joseluis Quiroz MD [address] [place] [facility] [place] [phone] PCP - General Family Medicine 03/23/24 Mica Spreader Relationship Specialty Start Date End Date Joseluis Quiroz MD [address] [place] [facility] [place] [phone] PCP - General Family Medicine 03/23/24 Mica Spreader Relationship Specialty Start Date End Date Joseluis Quiroz MD [address] [facility] [phone] PCP - General Family Medicine 03/23/24 Mica Spreader Relationship Specialty Start Date End Date Joseluis Quiroz MD [address] [place] [facility] [place] [address] PCP - General Family Medicine 03/23/24 Mica Spreader Relationship Specialty Start Date End Date Joseluis Quiroz MD [address] [place] [facility] [place] [phone] PCP - General Family Medicine 03/23/24 Mica Spreader Relationship Specialty Start Date End Date Joseluis Quiroz MD [address] [place] [facility] [place] [phone] PCP - General Family Medicine 03/23/24 Mica Spreader Relationship Specialty Start Date End Date Joseluis [...] BE BASED ON THE PRIMARY CLINICAL RECORDS. [facility]. provides no warranty or guarantee of the accuracy or completeness of information in this document.
--- OUTSIDE RECORDS SUMMARY | 2025-07-07 18:09 | XMS_ITS | CCD ---
Author Organization [facility] Care Team Providers Care Outpatient Surgery Rn Name Role Phone PHYSICIAN, DEFAULT Unavailable Unavailable [...] Care Provider DO Merly Paul Attending Provider [phone] Joseluis Quiroz Primary Care Unavailable Merly Paul [...] Lisinopril Drug Allergy 5 Other: See Comments [facility] Work Phone: (1 source) Lisinopril Propensity to adverse reactions 5 [facility] Work Phone: Medications Current Medications Medication Drug Class(es) Dates Sig (Normalized) Sig (Original) [id number] 200 actuat albuterol 0.09 mg/actuat metered dose [...] other day for 0 *Pick strength-form from [employer] for eRX* Jul, Active Ocuvite TABS WYATT [...] Oral Once a day *Pick strength-form from [employer] for eRX* Jul, Active Start: 07-23-2022 take 1 tablet by woody th twice daily buPROPion HCl ER (XL) 150MG buPROPion HCl ER (XL) 150MG, 1 (one) Tablet Tablet two times daily # 180, 07/23/2022, Ref. x1. Active Oral two times daily for 0 *Pick strength-form from [employer] for eRX* Jul, Active Start: 04-13-2020 take [...] as directed for 30 *Pick strength-form from [employer] for eRX* Jul, Active take 1 tablet by woody th once daily as needed Sildenafil Citrate 50 MG 1 tablet as needed Orally daily as directed for 30 days *Pick strength-form from [employer] for eRX* Active spironolactone 25 mg oral [...] Entry Transdermal daily for 0 *Reorder from [employer] for eRx and Interaction Alerts* Jul, Active [...] 10:45am Start: 01-21-2019 take 1 tablet by wooyd th once daily at bedtime atorvastatin (LIPITOR) [...] Coronary arteriosclerosis; Translations: [Atherosclerotic heart disease of [place] coronary artery without angina pectoris] Onset: 4 [...] sources) Long-term current use of insulin; Translations: [terminal 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 operator (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 insulin] Episodic Other and [...] 11-13-2022 Episodic Other aftercare (1 source) Other mcfp (current) drug therapy; Translations: [OTH PREPARATION DEPARTMENT SUPERVISOR CURRENT DRUG THERAPY] Onset: 11-13-2022 Episodic Other aftercare (1 source) terminal system operator (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 oral hypoglycemic drugs; Translations: [PREPARATION DEPARTMENT SUPERVISOR USE ORAL HYPOGLYCEMIC DX] Onset: 11-13-2022 Episodic Other aftercare (1 source) MCFP (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 insulin; Translations: [ALF CURRENT USE OF INSULIN] Onset: 11-13-2022 Episodic Other aftercare (1 source) MCFP (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 aspirin; Translations: [ALF CURRENT USE OF ASPIRIN] Onset: 10-17-2022 Episodic [...] Interpretation Reference Range Facility US Thyroid [place] [address] [address] Ultrasound Report Signed Patient: GADIEL LIANG MR#: [id number] : 1950 Acct:[id number] Age/Sex: 74 / M ADM Date: 06/29/25 Loc: US Attending Dr: Henrry Johnson M.D. Ordering Physician: Henrry Johnson M.D. Date of Service: 06/29/25 Procedure(s): US thyroid Accession Number(s): [id number] cc: Joseluis Quiroz M.D.; Henrry Johnson M.D. [facility] [place] [address] Patient Name: GADIEL LIANG MRN: [facility]:[id number] date: 1950 Sex: M Assigned Patient Location: US Current Patient Location: US Accession/Order Number: [id number] Exam Date: 06/29/2025 12:27 Report Date: 06/29/2025 [...] Coello M.D. 06/29/2025 12:30 PM Dictation Location: [place] [address] Electronically authenticated by: [id number] Y Date: 06/29/2025 12:30 Dictated By: Rocky Coello D.O. Signed By: 06/29/25 1232 DD/ 1230 TD/TT: Computer Lab Aide: [facility] Radiology, Radiologi MD jake - 06/29/2025 [place] [address] Ultrasound Report Signed Patient: GADIEL LIANG MR#: [id number] : 1950 Acct:[id number] Age/Sex: 74 / M ADM Date: 06/29/25 Loc: US Attending Dr: Henrry Johnson M.D. Ordering Physician: Henrry Johnson M.D. Date of Service: 06/29/25 Procedure(s): US thyroid Accession Number(s): [id number] cc: Joseluis Quiroz M.D.; Henrry Johnson M.D. [place] [address] Patient Name: GADIEL LIANG MRN: [id number] date: 1950 Sex: M Assigned Patient Location: US Current Patient Location: US Accession/Order Number: [id number] Exam Date: 06/29/2025 12:27 Report Date: 06/29/2025 [...] Coello M.D. 06/29/2025 12:30 PM Dictation Location: [place] [address] Electronically authenticated by: [id number] Y Date: 06/29/2025 12:30 Dictated By: Rocky Coello D.O. Signed By: 06/29/25 1232 DD/ 1230 TD/TT: Computer Lab Aide: [facility] Radiology Study observation (narrative) [facility] US Thyroid glandOrdered By: Radiologist Radiology on 06-29-2025 [facility] Work Phone: 36on 05-18-2025 36 Regarding lab result s from 04/15/2025: Milan Peña MD to Wy 04/25/25 5:45 PM Good lipids and AST ALT, continue current management and recheck in 6 months Lab orders to be done prior to Oct 2025 apt were mailed to patient. Normal [facility] Results Follow-Upon 04-25-20 Results Follow-Up [id number] Barber Liang eliseo E 1950 M Date Provider Department Center 04/25/2025 20247-EYJAOYMILAN PEÑA [facility] Family History Problem Relation Age of [...] Grandfather Paternal Grandmother Paternal Grandfather Other Normal [facility] Office Visiton 04-20-2025 Follow-up visit [id number] Barber Liang E 1950 M Date Provider Department Center 04/20/2025 TONA FORTE RO [facility] Family History Problem Relation Age of [...] Paternal Grandmother Paternal Grandfather Other Level of Service:22404 [place] OFFICE/OUTPATIENT ESTABLISHED LOW MDM 20 MIN Normal [facility] Cholesterol in LDL Calc [Mas s/Vol]on 04-15-2025 Cholesterol in LDL [Mass/Vol] 36.2 mg/dL [facility] Comment on above: <100 mg/dl [id number] 0-129 mg/dl NEAR OR ABOVE [id number] mg/dl BORDERLINE [id number] mg/dl HIGH>190 mg/dl VERY HIGH Cholesterol in VLDL Calc [Ma ss/Vol]on 04-15-2025 Cholesterol in VLDL [Mass/Vol] 15.8 mg/dL [facility] Laboratory - Chemistry and C hemistry - challengeon 04-15-2025 ALT [Catalytic activity/Vol] 22 U/L 16-63 [facility] AST [Catalytic activity/Vol] 13 U/L Low 15-37 [facility] Cholesterol [Mass/Vol] 109 mg/dL <=200 [facility] Cholesterol in HDL [Mass/Vol] 57 mg/dL 40-60 [facility] Comment on above: > or =60 mg/dl - LOW CARDIOVASCULAR RISK<40 mg/dl - HIGH CARDIOVASCULAR RISK Triglyceride [Mass/Vol] 79 mg/dL <=150 [facility] Orders Onlyon 04-15-2025 Orders Only [id number] Barber Liang 1950 M Date Provider Department Center 04/15/2025 67386-OGOHUBMILAN PEÑA [facility] Family History Problem Relation [...] Grandfather Paternal Grandmother Paternal Grandfather Other Normal [facility] Serum or plasma total choles terol/high density lipoprotein (HDL) cholesterol mass [place] 04-15-2025 Cholesterol.total/C holesterol in HDL [Mass ratio] 1.9 {ratio} [facility] Comment on above: 3.3 - 4.4 LOW [...] call the office with any questions. Normal [facility] [place] [address] Ultrasound Report Signed Patient: GADIEL LIANG MR#: [id number] : 1950 Acct:[id number] Age/Sex: 74 / M ADM Date: 12/23/24 Loc: US Attending Dr: Henrry Johnson M.D. Ordering Physician: Henrry Johnson M.D. Date of Service: 12/23/24 Procedure(s): US thyroid Accession Number(s): [id number] cc: Joseluis Quiroz M.D.; Henrry Johnson M.D. [place] [id number] Patient Name: GADIEL LIANG MRN: [id number] date: 1950 Sex: M Assigned Patient Location: US Current Patient Location: US Accession/Order Number: [id number] Exam Date: 12/23/2024 12:20 Report Date: 12/23/2024 [...] Bilateral subcentimeter TR 4 nodules TI-RADS: The [employer] TI-RADS committee's white paper recommendations for thyroid lesions classified as TR4 (moderately suspicious) are listed below: > 1.0 cm. Follow-up ultrasound in 1, 2, 3, and 5 years. > 1.5 cm. FNA. J. Am Dionicio Radiol 2017;14:587-595. Electronically authenticated by: GEORGIE VIERA Date: 12/23/2024 13:12 Dictated By: Georgie Viera M.D. Signed By: 12/23/241314 DD/ 11 TD/TT: Computer Lab Aide: [facility] Radiology, Radiologi MD jake - 12/23/2024 [place] [address] Ultrasound Report Signed Patient: GADIEL LIANG MR#: [id number] : 1950 Acct:[id number] Age/Sex: 74 / M ADM Date: 12/23/24 Loc: US Attending Dr: Henrry Johnson M.D. Ordering Physician: Henrry Johnson M.D. Date of Service: 12/23/24 Procedure(s): US thyroid Accession Number(s): [id number] cc: Joseluis Quiroz M.D.; Henrry Johnson M.D. [facility] [place] [id number] Patient Name: GADIEL LIANG MRN: [facility]:[id number] date: 1950 Sex: M Assigned Patient Location: US Current Patient Location: US Accession/Order Number: [id number] Exam Date: 12/23/2024 12:20 Report Date: 12/23/2024 [...] Bilateral subcentimeter TR 4 nodules TI-RADS: The [employer] TI-RADS committee's white paper recommendations for thyroid lesions classified as TR4 (moderately suspicious) are listed below: > 1.0 cm. Follow-up ultrasound in 1, 2, 3, and 5 years. > 1.5 cm. FNA. J. Am Dionicio Radiol 2017;14:587-595. Electronically authenticated by: GEORGIE VIERA Date: 12/23/2024 13:12 Dictated By: Georgie Viera M.D. Signed By: 12/23/241314 DD/ 11 TD/TT: Computer Lab Aide: [facility] Radiology Study observation (narrative) [facility] US Thyroid glandOrdered By: Radiologist Radiology on 12-23-2024 [facility] [employer] Work Phone: Office Visiton 09-16-2024 Follow-up visit [id number] Barber Liang 1950 M Date Provider Department Center 09/16/2024 24087-XUJUJUMILAN PEÑA [facility] Family History Problem Relation Age of Onset [...] Paternal Grandmother Paternal Grandfather Other Level of Service:97248 [place] OFFICE/OUTPATIENT ESTABLISHED MOD MDM 30 MIN Reason for Visit and Comments: Atrial Fibrillation [80] - S/p afib ablation vasovagal syncope [Other] Transient Ischemic Attack [722249] - X2 Carotid stenosis, bilateral [Other] Hyperlipidemia [182] - HAD LABS 11/5/24 Chronic systolic congestive heart failure [Other] - Congestive heart failure due to NICM Heart failure is stable . NYHA Class II Normal [facility] CNPMirta 06-18-2024 RACHAELN Telephone (PULMMN) GADIEL LIANG ([id number]) 1950 M Date Time Provider Department 06/18/24 RICKEY OSBORNE During your visit today, we recorded the following information about you: Greg River 06/18/2024 4:24 PM Signed Received a mail from [employer] with a notice on the Authorization for MRI, Brain, W/O Contrast Dated: 06/04/24 Status: Approve Service Requested: MRI, Brain, W/O Contrast Effective Dates: 06/04/2024 - 09/01/2024 Reference #: [id number] Uploaded into scan docs. Please allow time [...] LANCETS) lancets Use as instructed - Insulin [place], Disposable, (BD ULTRAFINE III MINI PEN) 31 [...] Status:Closed by GREG RIVER on 06/18/24 Normal [facility] Capillary blood glucose corey urement by glucometer (mass/volume)Ordered By: Merly Paul on 04-14-2024 Glucose [Mass/Vol] 73 mg/dL Normal [place] Comment on above: Random Glucose Refer ence Range is dependent on time and content of last meal. Glucose of more than 200 mg/dL in a nonstressed, ambulatory subject supports the diagnosis of Diabetes Mellitus. Result Comment: [place] Glucose Reference Range is dependent on time and content of last meal. Glucose of more than 200 mg/dL in a nonstressed, ambulatory subject supports the diagnosis of Diabetes Mellitus. PERFORMED BY: [facility] [place] [address] PATHOLOGIST WORM PACKER ANJANA SEWELL M.D. Performed By: #### G LULS #### Point of Care testing , [place] 04-14-2024 L Specimen: [id number] Received: 04/14/24 Status: MAYO Yuridia Num: [id number] Spec Type: Surgical Subm Dr: Merly Paul DO Tissues: A Colon Biopsy (CECAL POLYP) B Colon Biopsy (ASC POLYPS) C Colon Biopsy (TRANSV POLYP) D Colon Biopsy (DESC POLYP) Procedures: HE/8, Gross/Micro L4/4 Age/ Patient Sex Location Account Attending Physician Gadiel Liang 73/M [id number] Meryl Paul DO SPEC NUM: [id number] RECD: 04/14/24 STATUS: MAYO ESCALANTEDevin NUM: [id number] DIONICIO: 04/14/24- DR: Merly Paul DO ENTERED: 04/14/[address] [facility] [address]: Joseluis Quiroz MD SPEC TYPE: Surgical [...] -Tubular adenoma Clinical Information Diarrhea, constipation Specimen: [id number] Received: 04/14/24 Status: MAYO Shi Num: [id number] Spec Type: Surgical Subm Dr: Merly Paul DO Tissues: A Colon Biopsy (CECAL POLYP) B Colon Biopsy (ASC POLYPS) C Colon Biopsy (TRANSV POLYP) D Colon Biopsy (DESC POLYP) Procedures: HE/Claribel, Gross/Micro L4/4 Patient: Gadiel Liang [id number] (Continued) Specimen: Received: 04/14/24 (Continued) Signed (signature on file) Ayush Jackson MD 04/16/24 1330 Specimen: Received: 04/14/24 Status: MAYO Shi Num: [id number] Spec Type: Surgical Subm Dr: Merly Paul, Tissues: A Colon Biopsy (CECAL POLYP) B Colon Biopsy (ASC POLYPS) C Colon Biopsy (TRANSV POLYP) D Colon Biopsy (DESC POLYP) Procedures: , Gross/Micro L4/4 Patient: Gadiel Liang [id number] (Continued) Specimen: [id number] Received: 04/14/24 (Continued) Gross Description Received are [...] mucosal tissue fragment, entirely submitted in D1. [facility] Codes 75365A6 Specimen: [id number] Received: 04/14/24 Status: MAYO Escalantedevin Num: [id number] Spec Type: Surgical Subm Dr: Merly Paul DO Tissues: A Colon Biopsy (CECAL POLYP) B Colon Biopsy (ASC POLYPS) C Colon Biopsy (TRANSV POLYP) D Colon Biopsy (DESC POLYP) Procedures: Rivas LOFTON/Andrew L4/4 Patient: Gadiel Liang [id number] (Continued) Signed (signature on file) Suki Jackson MD 04/16/24 9942 [facility] ECHOCARDIO M/2D COMPLETEon 0 02-28-2023 ECHOCARDIO M/2D COMPLETE Patient: GADIEL LIANG Exam Date: 02/28/2023 : 1950 Gender:M Ordering : TONA AmayaIgnacio ROSENBERG Admission #: [id number] Family : DR JOSELUIS QUIROZ M.D. Order #: [id number] CLICK HERE TO VIEW EXAM ECHOCARDIOGRAM REPORT [...] Left Atrium LA Volume Index (2D A2C): 42779 mm3 Left Atrium Systolic Dimension: 4.90 cm [...] Patten M.D. on 02/28/2023 at 20:13 Normal [facility] PROF 14(COMP METB)on 023 Albumin [Mass/Vol] 3.7 g/dL Normal 3.4-5.0 [facility] Comment on above: Performed By: #### C MP #### [facility] [address] [place] [address] Dr. Esme Jackson Albumin/Globulin [Mass ratio] 1.1 {ratio} Normal [facility] Comment on above: Performed By: #### C MP #### [facility] [address] [place] [address] [address] Esme Jackson ALP [Catalytic activity/Vol] 65 U/L Normal 46-116 [facility] Comment on above: Performed By: #### C MP #### [facility] [address] [place] [address] [address] Esme Jackson ALT [Catalytic activity/Vol] 26 U/L Normal 16-63 [facility] Comment on above: Performed By: #### C MP #### [facility] [address] [place] [address] [address] Esme Jackson Anion gap [Moles/Vol] 10.8 mmol/L Normal [facility] Comment on above: Performed By: #### C MP #### [facility] [address] [place] [address] [address] Esme Jackson AST [Catalytic activity/Vol] 16 U/L Normal 15-37 [facility] Comment on above: Performed By: #### C MP #### [facility] [address] [place] [address] [address] Esme Jackson Bilirubin [Mass/Vol] 1.1 mg/dL Critically high 0.2-1.0 [facility] Comment on above: Performed By: #### C MP #### [facility] [address] [place] [address] [address] Esme Jackson Calcium [Mass/Vol] 9.4 mg/dL Normal 8.5-10.1 [facility] Comment on above: Performed By: #### C MP #### [facility] [address] [place] [address] [address] Esme Jackson Chloride [Moles/Vol] 103 mmol/L Normal 98-107 [facility] Comment on above: Performed By: #### C MP #### [facility] [address] [place] [address] [address] Esme Jackson CO2 [Moles/Vol] 28.5 mmol/L Normal 21.0-32.0 [facility] Comment on above: Performed By: #### C MP #### [facility] [address] [place] [address] [address] Esme Jackson Creatinine [Mass/Vol] 1.07 mg/dL Normal 0.70-1.30 [facility] Comment on above: Performed By: #### C MP #### [facility] [address] [place] [address] [address] Esme Jackson EGFR-AF ENGLISH >60 Normal >=60 [facility] Comment on above: Performed By: #### C MP #### [facility] [address] [place] [address] [address] Esme Jackson EGFR-NON AF ENGLISH >60 Normal >=60 [facility] Comment on above: Performed By: #### C MP #### [facility] [address] [place] [address] [address] Esme Jackson Globulin (S) [Mass/Vol] 3.5 g/dL Normal [facility] Comment on above: Performed By: #### C MP #### [facility] [address] [place] [address] [address] Esme Jackson Glucose [Mass/Vol] 190 mg/dL Critically high 74-106 [facility] Comment on above: Performed By: #### C MP #### [facility] [address] [place] [address] Dr. Esme Jackson Potassium [Moles/Vol] 5.3 mmol/L Critically high 3.5-5.1 [facility] Comment on above: Performed By: #### C MP #### [facility] [address] [place] [address] Dr. Esme Jackson Protein [Mass/Vol] 7.2 g/dL Normal 6.4-8.2 [facility] Comment on above: Performed By: #### C MP #### [facility] [address] [place] [address] Dr. Esme Jackson Sodium [Moles/Vol] 137 mmol/L Normal 136-145 [facility] Comment on above: Performed By: #### C MP #### [facility] [address] [place] [address] Dr. Esme Jackson Urea nitrogen [Mass/Vol] 14.0 mg/dL Normal 7.0-18.0 [facility] Comment on above: Performed By: #### C MP #### [facility] [address] [place] [address] Dr. Esme Jackson Urea nitrogen/Creatinine [Mass ratio] 13.1 mg/mg Normal [facility] Comment on above: Performed By: #### C MP #### [facility] [address] [place] [address] Dr. Esme Jackson BNPon 11-10-2022 Natriuretic peptide B (Bld) [Mass/Vol] 6259.0 pg/mL Critically high <=900.0 [facility] Comment on above: Performed By: #### B BUSINESS OBJECTS ARCHITECT, BMP, HSTROPN #### [facility] [address] [place] [address] Dr. Esme Jackson CBC AUTO DIFFon 11-10-2022 BASO # 0.0 103/ul Normal 0.0-0.1 [facility] Comment on above: Performed By: #### C BC #### [facility] [address] [place] [address] Dr. Esme Jackson Basophils/100 WBC (Bld) 0.5 % Normal 0.2-2.0 [facility] Comment on above: Performed By: #### C BC #### [facility] [address] [place] [address] Dr. Esme Jackson EO # 0.3 103/ul Normal 0.0-0.7 [facility] Comment on above: Performed By: #### C BC #### [facility] [address] [place] [address] Dr. Esme Jackson Eosinophils/100 WBC (Bld) 3.6 % Normal 0.9-7.0 [facility] Comment on above: Performed By: #### C BC #### [facility] [address] [place] [address] Dr. Esme Jackson Erythrocyte distribution width (RBC) [Ratio] 14.8 % Normal 11.0-15.0 [facility] Comment on above: Performed By: #### C BC #### [facility] [address] [place] [address] Dr. Esme Jackson Hematocrit (Bld) [Volume fraction] 36.9 % Critically low 42.0-54.0 [facility] Comment on above: Performed By: #### C BC #### [facility] [address] [place] [address] Dr. Esme Jackson Hemoglobin (Bld) [Mass/Vol] 12.0 g/dL Critically low 14.0-18.0 [facility] Comment on above: Performed By: #### C BC #### [facility] [address] [place] [address] [address] Esme Jackson IG # 0.04 10e3/ul Critically high 0.00-0.03 [facility] Comment on above: Performed By: #### C BC #### [facility] [address] [place] [address] [address] Esem Jackson IG % 0.5 % Normal 0.0-0.5 [facility] Comment on above: Performed By: #### C BC #### [facility] [address] [place] [address] Dr. Esme Jackson LYMPH # 1.3 103/ul Normal 1.2-3.8 [facility] Comment on above: Performed By: #### C BC #### [facility] [address] [place] [address] Dr. Esme Jackson Lymphocytes/100 WBC (Bld) 18.2 % Critically low 20.5-60.0 [facility] Comment on above: Performed By: #### C BC #### [facility] [address] [place] [address] Dr. Esme Jackson MANUAL DIFF REQ NO Normal [facility] Comment on above: Performed By: #### C BC #### [facility] [address] [place] [address] Dr. Esme Jackson MCH (RBC) [Entitic mass] 28.0 pg Normal 25.9-34.0 [facility] Comment on above: Performed By: #### C BC #### [facility] [address] [place] [address] Dr. Esme Jackson MCHC (RBC) [Mass/Vol] 32.5 g/dL Normal 29.9-35.2 [facility] Comment on above: Performed By: #### C BC #### [facility] [address] [place] [address] Dr. Esme Jackson MCV (RBC) [Entitic vol] 86.0 fL Normal 80.0-94.0 [facility] Comment on above: Performed By: #### C BC #### [facility] [address] [place] [address] Dr. Esme Jackson MONO # 0.5 103/ul Normal 0.3-0.8 [facility] Comment on above: Performed By: #### C BC #### [facility] [address] [place] [address] [address] Esme Jackson Monocytes/100 WBC (Bld) 7.3 % Normal 1.7-12.0 [facility] Comment on above: Performed By: #### C BC #### [facility] [address] [place] [address] Dr. Esme Jackson NEUT # 5.1 103/ul Normal 1.4-6.5 [facility] Comment on above: Performed By: #### C BC #### [facility] [address] [place] [address] Dr. Esme Jackson Neutrophils/100 WBC (Bld) 69.9 % Normal 43.0-75.0 [facility] Comment on above: Performed By: #### C BC #### [facility] [address] [place] [address] Dr. Esme Jackson Platelet mean volume (Bld) [Entitic vol] 10.3 fL Normal 9.5-13.5 [facility] Comment on above: Performed By: #### C BC #### [facility] [address] [place] [address] Dr. Esme Jackson PLT 220 103/ul Normal 150-450 [facility] Comment on above: Performed By: #### C BC #### [facility] [address] [place] [address] Dr. Esme Jackson RBC 4.29 106/ul Critically low 4.70-6.10 [facility] Comment on above: Performed By: #### C BC #### [facility] [address] [place] [address] Dr. Esme Jackson WBC 7.3 103/ul Normal 4.0-11.0 [facility] Comment on above: Performed By: #### C BC #### [facility] [address] [place] [address] Dr. Esme Jackson Covid-19 PCR (CVDTB)on 10-13 SARS-CoV-2 (COVID-19) RNA HANSA+probe Ql (Unsp spec) Not detected Normal NOT DETECTED [facility] Comment on above: Result Comment: When [...] for this test is supported by the [place] of Health and Human Service's declaration that [...] used). Performed By: #### C VDTB #### [facility] [address] [place] [address] Dr. Esme Jackson INFLUENZA A AND B AGon 11-10 INFLUANEGH SEE BELOW Normal [facility] [place] Comment on above: Result Comment: Nega tive for Flu A protein angiten. Infection due to Flu A cannot be ruled out. Flu A angiten in the sample may be below the detection limit of the test. Performed By: #### F T4 #### [facility] [address] [place] [address] Dr. Esme Jackson INFLUBNEG SEE BELOW Normal [facility] Comment on above: Result Comment: Nega tive for Flu B protein antigen. Infection due to Flu B cannot be ruled out. Flu B antigen in the sample may be below the detection limit of the test. Performed By: #### F T4 #### [facility] [address] [place] [address] Dr. Esme Jackson INFLUENZA A AG Negative Normal NEGATIVE SEE COMMENT [facility] Comment on above: Performed By: #### F T4 #### [facility] [address] [place] [address] Dr. Esme Jackson INFLUENZA B AG Negative Normal NEGATIVE SEE COMMENT [facility] [place] Comment on above: Performed By: #### F T4 #### [facility] [address] [place] [address] Dr. Esme Jackson PROF CHEM 8 (BAS METB)on Anion gap [Moles/Vol] 13.9 mmol/L Normal [facility] [place] Comment on above: Performed By: #### B BUSINESS OBJECTS ARCHITECT, BMP, HSTROPN #### [facility] [address] [place] [address] Dr. Esme Jackson Calcium [Mass/Vol] 8.7 mg/dL Normal 8.5-10.1 [facility] Comment on above: Performed By: #### B BUSINESS OBJECTS ARCHITECT, BMP, HSTROPN #### [facility] [address] [place] [address] Dr. Esme Jackson Chloride [Moles/Vol] 104 mmol/L Normal 98-107 [facility] [place] Comment on above: Performed By: #### B BUSINESS OBJECTS ARCHITECT, BMP, HSTROPN #### [facility] [address] [place] [address] Dr. Esme Jackson CO2 [Moles/Vol] 25.2 mmol/L Normal 21.0-32.0 [facility] Comment on above: Performed By: #### B BUSINESS OBJECTS ARCHITECT, BMP, HSTROPN #### [facility] [address] [place] [address] Dr. Esme Jackson Creatinine [Mass/Vol] 1.04 mg/dL Normal 0.70-1.30 [facility] [place] Comment on above: Performed By: #### B BUSINESS OBJECTS ARCHITECT, BMP, HSTROPN #### [facility] [address] [place] [address] Dr. Esme Jackson EGFR-AF ENGLISH >60 Normal >=60 [facility] Comment on above: Performed By: #### B BUSINESS OBJECTS ARCHITECT, BMP, HSTROPN #### [facility] [address] [place] [address] Dr. Esme Jackson EGFR-NON AF ENGLISH >60 Normal >=60 [facility] [place] Comment on above: Performed By: #### B BUSINESS OBJECTS ARCHITECT, BMP, HSTROPN #### [facility] [address] [address] [address] Esme Jackson Glucose [Mass/Vol] 199 mg/dL Critically high 74-106 T [facility] Comment on above: Performed By: #### B BUSINESS OBJECTS ARCHITECT, BMP, HSTROPN #### [facility] [address] [address] [address] Esme Jackson Potassium [Moles/Vol] 4.1 mmol/L Normal 3.5-5.1 [facility] [place] Comment on above: Performed By: #### B BUSINESS OBJECTS ARCHITECT, BMP, HSTROPN #### [facility] [address] [place] [address] Dr. Esme Jcakson Sodium [Moles/Vol] 139 mmol/L Normal 136-145 [facility] Comment on above: Performed By: #### B BUSINESS OBJECTS ARCHITECT, BMP, HSTROPN #### [facility] [address] [place] [address] Dr. Esme Jackson Urea nitrogen [Mass/Vol] 18.0 mg/dL Normal 7.0-18.0 [facility] [place] Comment on above: Performed By: #### B BUSINESS OBJECTS ARCHITECT, BMP, HSTROPN #### [facility] [address] [place] [address] Dr. Esme Jackson Urea nitrogen/Creatinine [Mass ratio] 17.3 mg/mg Normal [facility] [place] Comment on above: Performed By: #### B BUSINESS OBJECTS ARCHITECT, BMP, HSTROPN #### [facility] [address] [place] [address] Dr. Esme Jackson TROPONIN, HIGH SENSITIVITYon 11-10-2022 HSTROP 35.5 pg/mL Normal 4.0-76.1 [facility] [place] Comment on above: Result Comment: CUT- OFF POINTS HAVE BEEN ESTABLISHED BASED ON THE FOURTH UNIVERSAL DEFINITIONS OF MYOCARDIAL INFARCTION. THE UPPER REFERENCE LIMIT (URL) OF TROPONIN, DEFINED THE 99TH PERCENTILE OF cTnI DISTRIBUTION IN A REFERENCE POPULATION, HAS BEEN CONFIRMED THE DECISION THRESHOLD FOR DC DIAGNOSIS. Performed By: #### B BUSINESS OBJECTS ARCHITECT, BMP, HSTROPN #### [facility] [address] [address] [address] Esme Jackson XR CHEST 1 Von [...] RY [place] Date: 2022-11-10 09:24 Normal [facility] Covid-19 PCR (CVDTB)on SARS-CoV-2 (COVID-19) RNA HANSA+probe Ql (Unsp spec) Not detected Normal NOT DETECTED [facility] Comment on above: Result Comment: When [...] for this test is supported by the [place] of Health and Human Service's declaration that [...] used). Performed By: #### C VDTB #### [facility] [address] [address] [address] Esme Jackson INFLUENZA A AND B AGon 10-15 INFLUANEGH SEE BELOW Normal [facility] Comment on above: Result Comment: Nega tive for Flu A protein angiten. Infection due to Flu A cannot be ruled out. Flu A angiten in the sample may be below the detection limit of the test. Performed By: #### F T4 #### [facility] [address] [place] [address] Dr. Esme Jackson INFLUBNEG SEE BELOW Normal [facility] [place] Comment on above: Result Comment: Nega tive for Flu B protein antigen. Infection due to Flu B cannot be ruled out. Flu B antigen in the sample may be below the detection limit of the test. Performed By: #### F T4 #### [facility] [address] [place] [address] Dr. Esme Jackson INFLUENZA A AG Negative Normal NEGATIVE SEE COMMENT [facility] Comment on above: Performed By: #### F T4 #### [facility] [address] [place] [address] Dr. Esme Jackson INFLUENZA B AG Negative Normal NEGATIVE SEE COMMENT [facility] [place] Comment on above: Performed By: #### F T4 #### [facility] [address] [place] [address] Dr. Esme Jackson INTERNAL CONTROLS Within Normal Limits Normal Wi thin Normal Limits [facility] Comment on above: Performed By: #### F T4 #### [facility] [address] [place] [address] Dr. Esme Jackson XR CHEST 2 Von [...] RAPHAEL NUNEZ Date: 2022-10-15 10:08 Normal [facility] Follow Up (Endocrinology)on 10-10-2022 Follow Up [...] insulin; CATIE = N; Verified Transmission to [id number]; Last Updated By: Hingi; 10/10/2022 11:29:03 AM Albumin, Urine Spot; Status:Active; Requested for:10Oct2022; Perform:Lab Services - Lab To Draw (Non-Blood Test); Due:08Jan2023;Ordered; For:Central hypothyroidism, Hyperlipemia, Hypogonadism male, Pituitary macroadenoma, Thyroid nodule, Type 2 diabetes mellitus with other specified complication, with long-term current use of insulin; Ordered By:Mandie Osborne; Brain Natriuretic Peptide BNP; Status:Active; Requested for:10Oct2022; Perform:Lab Services - Lab To Draw (Blood Test); Due:[id number];Ordered; For:Central hypothyroidism, Hyperlipemia, Hypogonadism male, Pituitary macroadenoma, Thyroid nodule, Type 2 diabetes mellitus with other specified complication, with long-term current use of insulin; Ordered By:Mandie Osborne; Complete Blood Count + Differential; Status:Active; Requested for:10Oct2022; Perform:Lab Services - Lab To Draw (Blood Test); Due:[id number];Ordered; For:Central hypothyroidism, Hyperlipemia, Hypogonadism male, Pituitary macroadenoma, [...] Services - Lab To Draw (Blood Test); Due:[id number];Ordered; For:Central hypothyroidism, Hyperlipemia, Hypogonadism male, Pituitary macroadenoma, Thyroid nodule, Type 2 diabetes mellitus with other specified complication, with long-term current use of insulin; Ordered By:Mandie Osborne; T4 - Free Thyroxine, Serum; Status:Active; Requested for:10Oct2022; Perform:Lab Services - Lab To Draw (Blood Test); Due:[id number];Ordered; For:Central hypothyroidism, Hyperlipemia, Hypogonadism male, Pituitary macroadenoma, Thyroid nodule, Type 2 (more content not included)... Normal [facility] CORTISOL Bri 06-25-2022 Cortisol AM 19.6 ug/dL Critically high 6.2-19.4 [facility] Comment on above: Performed By: #### C ORTAM #### [facility] [address] [address] [address] Esme Jackson MICROALBUMIN URINEon 022 Albumin, Urine 36.5 ug/mL Normal Not Estab. [facility] Comment on above: Performed By: #### F T4 #### [facility] [address] [address] [address] Esme Jackson FREE T4on 06-22-2022 Free T4 [Mass/Vol] 1.22 ng/dL Normal 0.76-1.46 [facility] Comment on above: Performed By: #### F T4 #### [facility] [address] [address] [address] Esme Jackson GLYCOHEMOGLOBIN A1Con 2021 ADA RECOMMENDATION SEE BELOW Normal [facility] Comment on above: Result Comment: ADA RECOMMENDED LIMIT 4.0 - 6.0 ADA THERAPEUTIC TARGET < 7.0 ACTION SUGGESTED > 7.0 Performed By: #### F T4 #### [facility] [address] [address] [address] Esme Jackson Glucose [Mass/Vol] 194 mg/dL Normal [facility] Comment on above: Performed By: #### F T4 #### [facility] [address] [address] [address] Esme Jackson HbA1c (Bld) [Mass fraction] 8.4 % Critically high 4.5-6.2 [facility] [place] Comment on above: Performed By: #### F T4 #### [facility] [address] [address] [address] Esme Jackson LIPID PROFILEon 06-22-2022 CHOL-HDL RATIO NORM SEE BELOW Normal [facility] Comment on above: Result Comment: 3.3 - 4.4 LOW RISK 4.4 - 7.1 AVERAGE RISK 7.1 - 11.0 MODERATE RISK >11.0 HIGH RISK Performed By: #### F T4 #### [facility] [address] [address] [address] Esme Jackson Cholesterol [Mass/Vol] 153 mg/dL Normal <=200 [facility] [place] Comment on above: Performed By: #### F T4 #### [facility] [address] [address] [address] Esme Jackson Cholesterol in HDL [Mass/Vol] 55 mg/dL Normal 40-60 [facility] [place] Comment on above: Performed By: #### F T4 #### [facility] [address] [address] [address] Esme Jackson Cholesterol in LDL [Mass/Vol] 82.2 mg/dL Normal [facility] [place] Comment on above: Performed By: #### F T4 #### [facility] [address] [address] [address] Esme Jackson Cholesterol.total/C holesterol in HDL [Mass ratio] 2.8 {ratio} Normal [facility] [place] Comment on above: Performed By: #### F T4 #### [facility] [address] [address] [address] Esme Jackson HDL NORMAL > or = 60 mg/dl - LO W CARDIOVASCULAR RISK <40 mg/dl - HIGH CARDIOVASCULAR RISK Normal [facility] [place] Comment on above: Performed By: #### F T4 #### [facility] [address] [place] [address] Dr. Esme Jackson LDL CALC NORMAL SEE BELOW Normal [facility] Comment on above: Result Comment: <100 mg/dl OPTIMAL 100 - 129 mg/dl NEAR OR ABOVE OPTIMAL 130 - 159 mg/dl BORDERLINE HIGH 160 - 189 mg/dl HIGH >190 mg/dl VERY HIGH Performed By: #### F T4 #### [facility] [address] [address] [address] Esme Jackson Triglyceride [Mass/Vol] 79 mg/dL Normal <=150 [facility] Comment on above: Performed By: #### F T4 #### [facility] [address] [place] [address] Dr. Esme Jackson VLDL CALC 15.8 mg/dL Normal [facility] Comment on above: Performed By: #### F T4 #### [facility] [address] [place] [address] Dr. Esme Jackson PROF 14(COMP METB)on 022 Albumin [Mass/Vol] 3.9 g/dL Normal 3.4-5.0 [facility] Comment on above: Performed By: #### F T4 #### [facility] [address] [place] [address] Dr. Esme Jackson Albumin/Globulin [Mass ratio] 1.1 {ratio} Normal [facility] [place] Comment on above: Performed By: #### F T4 #### [facility] [address] [place] [address] Dr. Esme Jackson ALP [Catalytic activity/Vol] 57 U/L Normal 46-116 [facility] Comment on above: Performed By: #### F T4 #### [facility] [address] [place] [address] Dr. Esme Jackson ALT [Catalytic activity/Vol] 22 U/L Normal 16-63 [facility] Comment on above: Performed By: #### F T4 #### [facility] [address] [place] [address] Dr. Esme Jackson Anion gap [Moles/Vol] 12.6 mmol/L Normal [facility] [place] Comment on above: Performed By: #### F T4 #### [facility] [address] [address] [address] Esme Jakcson AST [Catalytic activity/Vol] 18 U/L Normal 15-37 [facility] [place] Comment on above: Performed By: #### F T4 #### [facility] [address] [address] [address] Esme Jackson Bilirubin [Mass/Vol] 1.1 mg/dL Critically high 0.2-1.0 [facility] [place] Comment on above: Performed By: #### F T4 #### [facility] [address] [address] [address] Esme Jackson Calcium [Mass/Vol] 9.0 mg/dL Normal 8.5-10.1 [facility] Comment on above: Performed By: #### F T4 #### [facility] [address] [address] [address] Esme Jackson Chloride [Moles/Vol] 103 mmol/L Normal 98-107 [facility] [place] Comment on above: Performed By: #### F T4 #### [facility] [address] [address] [address] Esme Jackson CO2 [Moles/Vol] 27.2 mmol/L Normal 21.0-32.0 [facility] Comment on above: Performed By: #### F T4 #### [facility] [address] [address] [address] Esme Jackson Creatinine [Mass/Vol] 0.90 mg/dL Normal 0.70-1.30 [facility] Comment on above: Performed By: #### F T4 #### [facility] [address] [address] [address] Esme Jackson EGFR-AF ENGLISH >60 Normal >=60 [facility] Comment on above: Performed By: #### F T4 #### [facility] [address] [address] [address] Esme Jackson EGFR-NON AF ENGLISH >60 Normal >=60 [facility] Comment on above: Performed By: #### F T4 #### [facility] [address] [address] [address] Esme Jackson Globulin (S) [Mass/Vol] 3.4 g/dL Normal [facility] [place] Comment on above: Performed By: #### F T4 #### [facility] [address] [place] [address] Dr. Esme Jackson Glucose [Mass/Vol] 185 mg/dL Critically high 74-106 T [facility] Comment on above: Performed By: #### F T4 #### [facility] [address] [place] [address] Dr. Esme Jackson Potassium [Moles/Vol] 3.8 mmol/L Normal 3.5-5.1 [facility] Comment on above: Performed By: #### F T4 #### [facility] [address] [place] [address] Dr. Esme Jackson Protein [Mass/Vol] 7.3 g/dL Normal 6.4-8.2 [facility] Comment on above: Performed By: #### F T4 #### [facility] [address] [place] [address] Dr. Esme Jackson Sodium [Moles/Vol] 139 mmol/L Normal 136-145 [facility] Comment on above: Performed By: #### F T4 #### [facility] [address] [place] [address] Dr. Esme Jackson Urea nitrogen [Mass/Vol] 12.0 mg/dL Normal 7.0-18.0 [facility] Comment on above: Performed By: #### F T4 #### [facility] [address] [place] [address] Dr. Esme Jackson Urea nitrogen/Creatinine [Mass ratio] 13.3 mg/mg Normal [facility] Comment on above: Performed By: #### F T4 #### [facility] [address] [place], [place] [address] Dr. Esme Jackson US THYROIDon 06-22-2022 US [...] nodules. 1 year follow-up recommended TI-RADS: The [employer] TI-RADS committee's white paper recommendations for thyroid lesions classified as TR5 (highly suspicious) are listed below: > 0.5 cm. Annual ultrasound follow-up for up to 5 years. > 1.0 cm. FNA. J. Am Dionicio Radiol 2017;14:587-595. Electronically authenticated by: GEORGIE VIERA Date: 2022-06-22 17:28 Normal [facility] Follow Up (Endocrinology)on 04-24-2022 Follow Up (Endocrinology) [...] Thyroid; Status:Hold For - Scheduling; Requested for:24Apr2022; Perform:[facility]; Due:23Jul2022;Ordered; For:Central hypothyroidism, Hyperlipemia, [...] nodule; CATIE = N; Verified Transmission to [facility]; Last Updated By: Hingi; 04/24/2022 10:33:22 AM Hypogonadism male, Pituitary macroadenoma Renew: Testosterone 50 MG/5GM (1%) Transdermal Gel; APPLY 1 PACKET ONE TIME DAILY DIRECTED Rx By: Mandie Osborne; Dispense: 0 Days ; #:90 X 5 GM Package; Refill: 1;For: Hypogonadism male, Pituitary macroadenoma; CATIE = N; Verified Transmission to [facility]; Last Updated By: [facility]; 04/24/2022 10:33:21 AM Pituitary macroadenoma Renew: Cabergoline 0.5 MG Oral Tablet; Take 1 tablet every other day Rx By: Mandie Osborne; Dispense: 80 Days ; #:40 Tablet; Refill: 3;For: Pituitary macroadenoma; CATIE = N; Verified Transmission to [facility]; Last Updated By: [facility] [employer]; 04/24/2022 10:33:26 AM Type 2 diabetes mellitus with other specified complication, with long-term current use of insulin Renew: Accu-Chek Alicia Plus In Vitro Strip; TEST TWICE DAILY Rx B (more content not included)... Normal [facility] Tobacco Screening.on 022 Adult depression screening assessment No [facility] [address] Work Phone: Fall risk assessment a) No falls within the last year [facility] [address] Work Phone: Tobacco use status [facility] b) No [facility] [address] Work Phone: Vital Signs Date Time Vital Sign Value Performing Clinician Facility 05-24-2025 10:02-0400 Body height 176.53 cm Joseluis Quiroz MD Work Phone: [facility] 05-24-2025 10:02-0400 Body mass index (BMI) [Ratio] 27.9 kg/m2 Joseluis Quiroz MD Work Phone: [facility] 05-24-2025 10:02-0400 Body weight 87.08 kg Joseluis Quiroz MD Work Phone: [facility] 05-24-2025 10:02-0400 Diastolic blood pressure 62 mm[Hg] Joseluis Quiroz MD Work Phone: [facility] 05-24-2025 10:02-0400 Heart rate 68 /min Joseluis Quiroz MD Work Phone: [facility] 05-24-2025 10:02-0400 Respiratory rate 12 /min Joseluis Quiroz MD Work Phone: [facility] 05-24-2025 10:02-0400 SaO2% (BldA) [Mass fraction] 97 % Joseluis Quiroz MD Work Phone: [facility] 05-24-2025 10:02-0400 Systolic blood pressure 104 mm[Hg] Joseluis Quiroz MD Work Phone: [facility] 02-11-2025 13:12-0400 Body height 182.9 cm Ansley Chaves DO Work Phone: [facility] 02-11-2025 13:12-0400 Body mass index (BMI) [Ratio] 26.56 kg/m2 Ansley Chaves DO Work Phone: [facility] 02-11-2025 13:12-0400 Body weight 88.81 kg Ansley Cahves DO Work Phone: [facility] 12-29-2024 13:31-0500 Body height 182.9 cm Henrry Johnson MD Work Phone: [facility] 12-29-2024 13:31-0500 Body mass index (BMI) [Ratio] 26.72 kg/m2 Henrry Johnson MD Work Phone: [facility] 12-29-2024 13:31-0500 Body weight 89.36 kg Henrry Johnson MD Work Phone: [facility] 12-29-2024 13:31-0500 Diastolic blood pressure 59 mm[Hg] Henrry Johnson MD Work Phone: [facility] 12-29-2024 13:31-0500 Heart rate 77 /min Henrry Johnson MD Work Phone: [facility] 12-29-2024 13:31-0500 Systolic blood pressure 100 mm[Hg] Henrry Johnson MD Work Phone: [facility] 07-14-2024 11:22-0400 Body height 182.9 cm Henrry Johnson MD Work Phone: [facility] 07-14-2024 11:22-0400 Body mass index (BMI) [Ratio] 26.31 kg/m2 Henrry Johnson MD Work Phone: [facility] 07-14-2024 11:22-0400 Body weight 88 kg Henrry Johnson MD Work Phone: [facility] 07-14-2024 11:22-0400 Diastolic blood pressure 62 mm[Hg] Henrry Johnson MD Work Phone: [facility] 07-14-2024 11:22-0400 Systolic blood pressure 131 mm[Hg] Henrry Johnson MD Work Phone: [facility] 04-14-2024 12:35-0400 Diastolic blood pressure 63 mm[Hg] MD Joseluis Quiroz Work Phone: [facility] 04-14-2024 12:35-0400 Heart rate 54 /min MD Joseluis Quiroz Work Phone: [facility] 04-14-2024 12:35-0400 Respiratory rate 18 /min MD Joseluis Quiroz Work Phone: [facility] 04-14-2024 12:35-0400 SaO2% (BldA) [Mass fraction] 99 % MD Joseluis Quiroz Work Phone: [facility] 04-14-2024 12:35-0400 Systolic blood pressure 125 mm[Hg] MD Joseluis Quiroz Work Phone: [facility] 04-14-2024 11:02-0400 Body height 182.88 cm MD Joseluis Quiroz Work Phone: [facility] 04-14-2024 11:02-0400 Body weight 86.18 kg MD Joseluis Quiroz Work Phone: [facility] 03-18-2024 10:35-0400 Body height 182.88 cm MD Joseluis Quiroz Work Phone: [facility] 03-18-2024 10:35-0400 Body mass index (BMI) [Ratio] 25.7 kg/m2 MD Joseluis Quiroz Work Phone: [facility] 03-18-2024 10:35-0400 Body weight 86.18 kg MD Joseluis Quiroz Work Phone: [facility] 03-06-2024 10:52-0400 Body height 182.88 cm MD Joseluis Quiroz Work Phone: [facility] 03-06-2024 10:52-0400 Body mass index (BMI) [Ratio] 26.9 kg/m2 MD Joseluis Quiroz Work Phone: [facility] 03-06-2024 10:52-0400 Body temperature 99.2 [degF] MD Joseluis Quiroz Work Phone: [facility] 03-06-2024 10:52-0400 Body weight 89.98 kg MD Joseluis Quiroz Work Phone: [facility] 03-06-2024 10:52-0400 Diastolic blood pressure 60 mm[Hg] MD Joseluis Quiroz Work Phone: [facility] 03-06-2024 10:52-0400 Heart rate 69 /min MD Joseluis Quiroz Work Phone: [facility] 03-06-2024 10:52-0400 Respiratory rate 18 /min MD Joseluis Quiroz Work Phone: [facility] 03-06-2024 10:52-0400 SaO2% (BldA) [Mass fraction] 95 % MD Joseluis Quiroz Work Phone: [facility] 03-06-2024 10:52-0400 Systolic blood pressure 127 mm[Hg] MD Joseluis Quiroz Work Phone: [facility] 10-29-2023 13:30-0500 Body height 182.88 cm Joseluis Quiroz Other [facility] [employer] Other 10-29-2023 13:30-0500 Body mass index (BMI) [Ratio] 26.09 kg/m2 Joseluis Quiroz Other [facility] [employer] Other 10-29-2023 13:30-0500 Body weight 87.27 kg Joseluis Quiroz Other [facility] [employer] Other 10-29-2023 13:30-0500 Diastolic blood pressure 72 mm[Hg] Joseluis Quiroz Other [facility] [employer] Other 10-29-2023 13:30-0500 SaO2% (BldA) [Mass fraction] 93 % Joseluis Quiroz Other [employer] Other 10-29-2023 13:30-0500 Systolic blood pressure 130 mm[Hg] Joseluis Quiroz Other [employer] Other 08-19-2023 11:00-0400 Body height 182.88 cm Joseluis Quiroz Other [employer] Other 08-19-2023 11:00-0400 Body mass index (BMI) [Ratio] 25.36 kg/m2 Joseluis Quiroz Other [employer] Other 08-19-2023 11:00-0400 Body weight 84.82 kg Joseluis Quiroz Other [employer] Other 08-19-2023 11:00-0400 Diastolic blood pressure 61 mm[Hg] Joseluis Quiroz Other [employer] Other 08-19-2023 11:00-0400 Systolic blood pressure 126 mm[Hg] Joseluis Quiroz Other [employer] Other Encounters Encounter Date Encounter Type Care Provider Facility Start: 06-29-2025 End: 06-29-2025 Clinisync Result Encounter Henrry Johnson MD Work Phone: [facility] External [facility] Unsolicited Start: 06-29-2025 End: 06-29-2025 Clinisync Result Encounter Henrry Johnson MD Work Phone: [facility] External [facility] Unsolicited Start: 05-24-2025 End: 05-24-2025 ambulatory Joseluis Quiroz MD Work Phone: [facility] Work Phone: Start: 05-24-2025 End: 05-24-2025 Patient encounter procedure Joseluis Quiroz MD -[facility] Work Phone: Start: 04-20-2025 End: 04-20-2025 ambulatory [facility] Start: 04-15-2025 Non-patient / Non-visit Milan Peña MD -[facility] [employer] Work Phone: Start: 02-11-2025 End: [...] Department Unsolicited Start: 09-16-2024 End: 09-16-2024 ambulatory [facility] Start: 07-14-2024 End: 07-14-2024 Bamboo flowsheet Henrry [...] Medicine Comment on above: Insurance Authorizat ion ([place]) Start: 05-20-2024 Patient encounter procedure Joseluis Quiroz MD Work Phone: [facility] Start: 05-07-2024 End: 05-07-2024 Office outpatient visit 40 minutes Mandie Osborne MD Work Phone: [facility] Comment on above: Hypopituitarism (Mul ti) (Primary Dx); Hypogonadism male; Hyperparathyroidism (Multi); Hyperprolactinemia (Multi); Type 2 diabetes mellitus without complication, with long-term current use of insulin (Multi); Thyroid nodule Start: 04-14-2024 Non-patient / Non-visit MD Hiral Quiroz Work Phone: [facility] Work Phone: Start: 04-14-2024 End: 04-14-2024 Admission to same day surgery center MD Joseluis Quiroz Work Phone: [facility] Work Phone: Start: 04-14-2024 End: 04-14-2024 ambulatory MD Joseluis Quiroz Work Phone: [facility] Work Phone: Start: 03-23-2024 End: 03-23-2024 ambulatory RAPHAEL SPRINGER Not Available Start: 03-18-2024 End: 03-18-2024 Patient encounter procedure MD Joseluis Quiroz Work Phone: [facility] Gastroenterology Work Phone: Start: 03-06-2024 End: 03-06-2024 Patient encounter procedure MD Joseluis Quiroz Work Phone: [facility] [place] Work Phone: Start: 12-23-2023 End: 12-23-2023 ambulatory Joseluis Quiroz Other [employer] Other Start: 12-23-2023 Telephone encounter Joseluis Quiroz [facility] Start: 10-29-2023 End: 10-29-2023 ambulatory Joseluis Quiroz Other [employer] Other Start: 10-29-2023 Office outpatient vi sit 15 minutes Joseluis Quiroz [facility] Start: 10-16-2023 End: 10-16-2023 ambulatory Joseluis Quiroz Other [employer] Other Start: 10-16-2023 Telephone encounter Joseluis Quiroz [facility] Start: 09-13-2023 End: 09-13-2023 ambulatory Joseluis Quiroz Other [employer] Other Start: 09-13-2023 Telephone encounter Joseluis Quiroz [facility] Start: 09-10-2023 End: 09-10-2023 ambulatory Joseluis Quiroz Other [employer] Other Start: 09-10-2023 Telephone encounter Joseluis Quiroz [facility] Start: 08-19-2023 End: 08-19-2023 ambulatory Joseluis Quiroz Other [employer] Other Start: 08-19-2023 Office outpatient vi sit 15 minutes Joseluis Quiroz [facility] Start: 07-31-2023 End: 07-31-2023 ambulatory Joseluis Quiroz Other [employer] Other Start: 07-31-2023 Telephone encounter Joseluis Quiroz [facility] Start: 05-29-2023 Rx Renewal Cabrera Dupont Work Phone: [facility] [address] Work Phone: Start: 04-08-2023 Rx Renewal Cabrera Dupont Work Phone: [facility] [address] [place] Work Phone: Start: 02-28-2023 End: 03-01-2023 ambulatory TONA ROSENBERG Facility:H1 Start: 01-30-[address] JOSELUIS QUIROZ Facil ity:H1 Start: 01-22-2023 AUDIT Cabrera Dupont Work Phone: [facility] Work Phone: Start: 01-22-2023 Rx Renewal [...] sit 25 minutes Cabrera Dupont Work Phone: VW-Wnflvfefonida-UFP [address] Work Phone: Start: 10-10-2022 ambulatory Referral Self Facility: [id number] Start: 09-28-2022 AUDIT Cabrera Dupont Work Phone: [facility] Work Phone: Start: 07-13-2022 Rx Renewal Cabrera Dupont Work Phone: [facility] [address] [place] Work Phone: Start: 07-02-2022 Telephone encounter Mandie sun MD Work Phone: Endocrinology Comment on above: Received Outside [employer] Records (Received Thyroid US report from [facility]. Indexed into chart. ) Start: 06-22-2022 End: 06-23-[address] DOCTOR BUSBY Facility:H1 Start: 04-24-2022 Office outpatient vi sit 40 minutes Cabrera Dupont Work Phone: MN[facility] [address] Work Phone: Start: 04-24-[address] Cabrera Dupont Facility:[id number] Start: 03-27-2022 AUDIT Cabrera Dupont Work Phone: HU[facility]amq[facility]fsnjx[facility] Work Phone: Start: 01-23-2022 KALPESH Dupont Work Phone: YT-[facility]bptqihthyvrb[facility] Work Phone: Start: 12-11-2021 Rx Renewal Cabrera Dupont Work Phone: XO-Llpkkqzjwcyll-[facility]uc[facility] Work Phone: Start: 11-08-2021 KALPESH Dupont Work Phone: QY-Uclcpshjkrwpd-[facility]jmqu[facility] Work Phone: Start: 08-21-2021 KALPESH Dupont Work Phone: RV-Ytnusimfarood-IFG [address] Work Phone: Start: 05-31-2021 AUDIT Cabrera Dupont Work Phone: DT-Mnyhwriiwzzxm-[facility] [place] [address] Work Phone: Start: 06-20-2017 End: 06-21-2017 Ambulatory DEFAULT PHYSICIAN Facility:[facility] Procedures Date Procedure Procedure Detail [...] [place] [address] Ansley Chaves DO [address] [place], [place] [id number] Primary osteoarthritis of right hip (Primary Dx) [facility] NARAYAN GARNICA Comment on above: Primary osteoarthritis of right hip (Jocelynn mary ann Dx) Start: 12-29-2024 End: 12-29-2024 Patient encounter procedure 12/29/2024 1:30 PM EST Office Visit [facility] [address] [place] [address] Henrry Johnson MD [address] [place] [address] [facility] Start: 07-14-2024 End: 07-14-2024 Patient encounter procedure 07/14/2024 11:30 AM EDT Office Visit [facility] [address] [place] [address] Henrry Johnson MD [address] [place] [address] Arrived [facility] Comment on above: Arrived Start: 07-12-2024 Influenza vaccination [facility] Start: 05-07-2024 End: 05-07-2025 Comprehensive metabolic 2000 panel - Serum or Plasma Comprehensive Metabolic Panel Lab Routine Hypopituitarism (Multi) Hypogonadism male Hyperparathyroidism (Multi) Hyperprolactinemia (Multi) Type 2 diabetes mellitus without complication, with long-term current use of insulin (Multi) Expected: 05/07/2024 (Approximate), Expires: 05/07/2025 [facility] Work Phone: Comment on above: Expected: 05/07/2024 [...] insulin (Multi) Expected: 05/07/2024 (Approximate), Expires: 05/07/2025 [facility] Work Phone: Comment on above: Expected: 05/07/2024 (Approximate), Expi res: 05/07/2025 Start: 05-07-2024 End: 05-07-2025 Lipid 1996 panel - Serum or Plasma Lipid Panel Lab Routine Hypopituitarism (Multi) Hypogonadism male Hyperparathyroidism (Multi) Hyperprolactinemia (Multi) Type 2 diabetes mellitus without complication, with long-term current use of insulin (Multi) Expected: 05/07/2024 (Approximate), Expires: 05/07/2025 [facility] Work Phone: Comment on above: Expected: 05/07/2024 (Approximate), Expi res: 05/07/2025 Start: 05-07-2024 End: 05-07-2025 Microalbumin/Creatinine [Mass Ratio] in Urine Albumin-Creatinine Ratio, Urine Random Lab Routine Hypopituitarism (Multi) Hypogonadism male Hyperparathyroidism (Multi) Hyperprolactinemia (Multi) Type 2 diabetes mellitus without complication, with long-term current use of insulin (Multi) Expected: 05/07/2024 (Approximate), Expires: 05/07/2025 [facility] Work Phone: Comment on above: Expected: 05/07/2024 (Approximate), Expi res: 05/07/2025 Start: 05-07-2024 End: 05-07-2025 MR Pituitary and Sella turcica WO and W contrast IV MR sella w and wo IV contrast Imaging Routine Hypopituitarism (Multi) Hypogonadism male Hyperparathyroidism (Multi) Hyperprolactinemia (Multi) Type 2 diabetes mellitus without complication, with long-term current use of insulin (Multi) Thyroid nodule Expected: 05/07/2024, Expires: 05/07/2025 [facility] Work Phone: Comment on above: Expected: 05/07/2024, Expires: Start: 05-07-2024 End: 05-07-2025 Parathyrin.intact [Mass/volume] in Serum or Plasma Parathyroid Hormone, Intact Lab Routine Hypopituitarism (Multi) Hypogonadism male Hyperparathyroidism (Multi) Hyperprolactinemia (Multi) Type 2 diabetes mellitus without complication, with long-term current use of insulin (Multi) Thyroid nodule Expected: 05/07/2024 (Approximate), Expires: 05/07/2025 [facility] Work Phone: Comment on above: Expected: 05/07/2024 (Approximate), Expi res: 05/07/2025 Start: 05-07-2024 End: 05-07-2025 Prolactin [Mass/volume] in Serum or Plasma Prolactin Lab Routine Hypopituitarism (Multi) Hypogonadism male Hyperparathyroidism (Multi) Hyperprolactinemia (Multi) Type 2 diabetes mellitus without complication, with long-term current use of insulin (Multi) Expected: 05/07/2024 (Approximate), Expires: 05/07/2025 [facility] Work Phone: Comment on above: Expected: 05/07/2024 (Approximate), Expi res: 05/07/2025 Start: 05-07-2024 End: 05-07-2025 Testosterone,Free and Total Testosterone,Free and Total Lab Routine Hypopituitarism (Multi) Hypogonadism male Hyperparathyroidism (Multi) Hyperprolactinemia (Multi) Type 2 diabetes mellitus without complication, with long-term current use of insulin (Multi) Expected: 05/07/2024 (Approximate), Expires: 05/07/2025 [facility] Work Phone: Comment on above: Expected: 05/07/2024 (Approximate), Expi res: 05/07/2025 Start: 05-07-2024 End: 05-07-2025 Thyroxine (T4) free [Mass/volume] in Serum or Plasma Thyroxine, Free Lab Routine Hypopituitarism (Multi) Hypogonadism male Hyperparathyroidism (Multi) Hyperprolactinemia (Multi) Type 2 diabetes mellitus without complication, with long-term current use of insulin (Multi) Expected: 05/07/2024 (Approximate), Expires: 05/07/2025 [facility] Work Phone: Comment on above: Expected: 05/07/2024 (Approximate), Expi res: 05/07/2025 Start: 04-14-2024 [facility] Start: 11-11-2023 Advance Directive Discussion Advance Directive Discussion [facility] Start: 07-12-2023 Covid-19 Vaccine ( season) Covid-19 Vaccine () [facility] Start: 10-10-2022 VIRKEENA, Provider: Mandie Osborne, Status: Pen, Time: 11:15 AM AMY, Provider: Mandie Osborne, Status: Pen, Time: 11:15 AM GJ-Skajqgjcfrxmh-Z [facility] Work Phone: Start: 07-12-2022 Influenza vaccination INFLUENZA (#1) [facility] Start: 04-24-2022 AMY, Provider: Ynes Sahni, Status: Pen, Time: 1:00 PM AMY, Provider: Ynes Sahni, Status: Pen, Time: 1:00 PM KN-Gtitvnvrgtfco-I [facility] Work Phone: Start: 01-21-2022 Diabetes Screening Diabetes Screening [facility] Start: 11-11-2021 ADVANCE DIRECTIVE DISCUSSION ADVANCE DIRECTIVE DISCUSSION [facility] Start: 08-24-2021 Lipid panel Lipid Screening [facility] Start: 07-24-2019 Hemoglobin A1c/Hemoglobin.total in Blood HBA1C [facility] Start: 08-12-2018 Pneumococcal Vaccine: 65+ (2 of 2 - PCV) Pneumococcal Vaccine: 65+ (2 of 2 - PCV) [facility] Start: 08-12-2018 Pneumococcal Vaccine: 65+ Years (2 of 2 - PCV) Pneumococcal Vaccine: 65+ Years (2 of 2 - PCV) [facility] Start: 10-07-2017 Shingrix Vaccine (3 of 3) Shingrix Vaccine (3 of 3) [facility] Start: 08-24-2017 Hepatitis B screening URINE ALBUMIN:CREATININE RATIO [facility] Start: 08-24-2017 Hepatitis B surface antibody level LDL CHOLESTEROL [facility] Start: 08-14-2017 3 comp foot exam completed DIABETIC FOOT EXAM [facility] Start: 11-22-2016 Hepatitis C antibody, confirmatory test DILATED RETINAL EXAM [facility] Start: 2016 PNEUMOCOCCAL: 65+ (1 - PCV) PNEUMOCOCCAL: 65+ (1 - PCV) [facility] Start: 2011 RSV patients and/or patients aged 60+ years (1 - 1-dose 60+ series) RSV patients and/or patients aged 60+ years (1 - 1-dose 60+ series) [facility] Start: 2011 RSV Vaccine (1 - 1-dose 60+ series) RSV Vaccine (1 - 1-dose 60+ series) [facility] Start: 2001 SHINGRIX VACCINE (1 of 2) SHINGRIX VACCINE (1 of 2) [facility] Start: 2001 Zoster Vaccines (1 of 2) Zoster Vaccines (1 of 2) [facility] Start: 1996 COLOGUARD (FIT-DNA) COLOGUARD (FIT-DNA) [facility] Start: 1996 Colonoscopy COLONOSCOPY [facility] Start: 1996 COLORECTAL CANCER SCREENING COLORECTAL CANCER SCREENING [facility] Start: [address] COLONOGRAPHY [facility] Start: 1996 FECAL OCCULT BLOOD FECAL OCCULT BLOOD [facility] Start: 1996 Screening for malignant neoplasm of colon [facility] Start: 1996 SIGMOIDOSCOPY SIGMOIDOSCOPY [facility] Start: 1973 DTaP/Tdap/Td Vaccines (1 - Tdap) DTaP/Tdap/Td Vaccines (1 - Tdap) [facility] Start: 1970 Urine microalbumin profile [facility] Start: 1970 Urine screening for protein Diabetes: Urine Protein Screening [facility] Start: 1969 Anxiety Screening Anxiety Screening [facility] Start: 1969 Depression Screening Depression Screening [facility] Start: 1969 HEPATITIS C SCREENING HEPATITIS C SCREENING [facility] Start: 1969 Hepatitis C screening Hepatitis C Screening [facility] Start: 1963 Adult depression screening assessment DEPRESSION SCREENING [facility] Start: 1961 Diabetic foot examination Diabetes: Foot Exam [facility] Start: 1961 Glaucoma screening Diabetes: Retinopathy Screening [facility] Start: 1957 Pneumococcal Vaccine: 65+ Years (1 of 2 - PCV) Pneumococcal Vaccine: 65+ Years (1 of 2 - PCV) [facility] Start: 02-08-1952 COVID-19 VACCINE (#1) COVID-19 VACCINE (#1) [facility] Start: 1951 ABDOMINAL AORTIC ANEURYSM SCREENING ABDOMINAL AORTIC ANEURYSM SCREENING [facility] Start: 1951 Abdominal aortic aneurysm screening Abdominal Aortic Aneurysm Screening [facility] Start: 1951 Hemoglobin A1c measurement Diabetes: Hemoglobin A1C [facility] Start: 1951 Lipid panel Lipid Panel [facility] Start: 1951 Medicare Annual Wellness Visit Medicare Annual Wellness Visit (AWV) [facility] Start: 1951 Screening for malignant neoplasm of colon [facility] Start: 1951 Thyroid stimulating hormone measurement TSH Level [facility] Comprehensive metabo lic 2000 panel - Serum or Plasma [facility] Patient Education Colon polyps D iverticulosis (DC) [facility] Work Phone: US Thyroid gland US thyroid Imag ing Routine Hypopituitarism (Multi) Hypogonadism male Hyperparathyroidism (Multi) Hyperprolactinemia (Multi) Type 2 diabetes mellitus without complication, with long-term current use of insulin (Multi) Thyroid nodule Ordered: 05/07/2024 [facility] Work Phone: Comment on above: Ordered: 05/07/2024 XR Abdomen Single view [facility] Immunizations Immunization Date Immunization Notes Care Provider Fa cili 08-21-2024 influenza virus vacc ine, unspecified formulation Henrry Johnson MD Work Phone: [facility] 10-12-2023 Influenza vaccine, quadrivalent, adjuvanted Joseluis Quiroz MD Work Phone: [facility] 10-12-2023 influenza virus vacc ine, unspecified formulation Henrry Johnson MD Work Phone: [facility] 08-15-2022 Fluzone High-Dose Quadrivalent 0.7 ML Intramuscular Suspension Prefilled Syringe Cabrera Dupont Work Phone: [facility] 09-06-2021 Fluad Quadrivalent 0 .5 ML Intramuscular Prefilled Syringe Cabrera Dupont Work Phone: [facility] 01-18-2021 Neva COVID-19 Vac cine 0.5 ML Intramuscular Suspension Cabrera Dupont Work Phone: [facility] 09-08-2020 Fluad Quadrivalent 0 .5 ML Intramuscular Prefilled Syringe Cabrera Dupont Work Phone: [facility] 08-24-2020 influenza, seasonal, injectable Cabrera Dupont Work Phone: [facility] 08-24-2019 Seasonal trivalent influenza vaccine, adjuvanted, preservative free Cabrera Dupont Work Phone: [facility] 08-04-2018 influenza, injectabl e, quadrivalent, preservative free Cabrera Dupont Work Phone: [facility] 08-04-2018 influenza virus vacc ine, unspecified formulation Rickey Osborne MD Work Phone: [facility] 07-19-2018 influenza, high dose seasonal, preservative-free Cabrera Dupont Work Phone: [facility] 08-21-2017 influenza, high dose seasonal, preservative-free Cabrera Dupont Work Phone: [facility] 08-12-2017 pneumococcal polysaccharide vaccine, 23 valent Cabrera Dupont Work Phone: [facility] 08-12-2017 zoster vaccine recombinant Cabrera Dupont Work Phone: [facility] 08-21-2016 influenza, high dose seasonal, preservative-free Cabrera Dupont Work Phone: [facility] 2015 influenza, seasonal, injectable, preservative free Cabrera Dupont Work Phone: [facility] 08-04-2014 influenza, seasonal, injectable Cabrera Dupont Work Phone: [facility] 08-04-2014 pneumococcal polysaccharide vaccine, 23 valent Cabrera Dupont Work Phone: [facility] 08-04-2014 zoster vaccine, live Cabrera Dupont Work Phone: [facility] Payers Date Payer Category Payer Self-pay [id number] 2023 Medicare (Managed Care) [employer] [id number] 2018 Medicare [id number] 2013 Unknown 1959 Self-pay [id number] 1959 Unknown [id number] 1951 Unknown [id number] 2.840.1.303834.3.579. 2.356 1951 Unknown [id number] 2.840.1.613393.3.579. 2.356 1951 Unknown [id number] 2.16.840.1.010808.3.579. 2.593 1951 Unknown [id number] 2.840.1.433599.3.579. 2.593 1951 Unknown [id number] 2.16.840.1.949496.3.579. 2.593 1951 Unknown [id number] 2.16.840.1.485792.3.579. 2.593 1951 Unknown [id number] 2.16.840.1.429906.3.579. 2.593 1951 Unknown [id number] 2.16.840.1.222673.3.579. 2.593 1951 Unknown [id number] 2.16.840.1.623703.3.579. 2.593 1951 Unknown [id number] 2.16.840.1.114195.3.579. 2.1259 1951 Unknown [id number] 2.16.840.1.342729.3.579. 2.1259 1951 Unknown [id number] 2.16.840.1.227430.3.579. 2.1259 1951 Unknown [id number] 2.16.840.1.959906.3.579. 2.1259 1951 Unknown [id number] 2.16.840.1.442476.3.579. 2.1259 1951 Unknown [id number] 2.16.840.1.623008.3.579. 2.1259 Unknown [id number] 2.16.840.1.223921.3.579. 2.593 Unknown [facility] [id number] Unknown [id number] [id number]. 2.531 Social History Date Type Detail Facility Start: 01-21-2019 End: 02-11-2025 Former smoker Former smoker [facility] Work Phone: Start: 06-30-2013 End: 07-09-2024 Tobacco smoking status NHIS Ex-smoker [facility] Start: 11-11-1966 End: 12-12-1992 History of tobacco use Current smoker [facility] Start: 11-11-1966 End: 12-12-1992 History of tobacco use Cigarette Smoker [facility] Start: 06-30-2013 End: 07-09-2024 Tobacco use and exposure Smokeless tobacco non-user [facility] Start: 01-21-2019 Alcohol intake Current non-dr edge inker heels of alcohol (finding) [facility] Start: 1950 Sex Assigned At Not on file [facility] Start: 01-21-2019 End: 02-11-2025 Sex Assigned At [facility] [employer] Other Start: 1950 Sex Assigned At Male F [facility] National Score (1-100), lower number is lower risk Not on file [facility] Tobacco smoking status MTIS Tobacco smoking consumption unknown [facility] Work Phone: Start: 07-14-2024 End: 02-11-2025 Alcoholic beverage intake Lifetime non-drinker (finding) [facility] Sex Male (finding) [facility] Medical Equipment Procedure Code Equipment Code Equipment Original Text Equipment Identifier Dates [id number], [id number], [id number] Start: 09-15-2018 Comment on above: Use as [...] Date & Type Note Facility 04-20-2025 Note [place] Electrophysiology Consult Note [facility] Reason for Consultation: Atrial fibrillation, s/p [...] on 10/15 and he went to the [facility] emergency department was found to be [...] Use: Not At Risk (12/24/2019) [facility]C Frequency of Alcohol Consumption: Never Average [...] on file Intimate Partner Violence: Unknown (05/05/2024) [place] Safety & Environment Fear of Current or [...] to Visit Me (more content not included)... [facility] 02-11-2025 History of Present illness [...] 12:10 PM EDT documented in this encounter [facility] 12-29-2024 History of Present illness Narrative Subjective Patient ID: Alexis Liang is a 74 y.o. male who presents for Thyroid Nodule (5 month ultrasound [facility] 12/23/24) Thyroid US shows a 4mm RT and 9mm LT nodule, compared to an 8mm RT nodule 6 mo ago. Family History Problem Relation Name Age of Onset Diabetes type II Mother Active Ambulatory Problems Diagnosis Date Noted Alzheimer's disease with late onset ([facility] [facility]) 06/27/2024 Dementia in other diseases classified elsewhere, unspecified severity, without behavioral disturbance, psychotic disturbance, mood disturbance, and anxiety ([facility]) 06/27/2024 History of ischemic stroke 06/27/2024 Personality change 06/27/2024 Pituitary mass ([facility]) 06/27/2024 Depression ([facility]) 06/27/2024 Memory impairment 06/27/2024 Abnormal stress test 04/28/2015 Acquired hypothyroidism ([facility]) 07/09/2024 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 Atrial flutter ([facility]) 11/28/2022 Carotid stenosis, bilateral 04/01/2024 Chronic systolic heart failure ([facility]) 11/15/2022 Constipation 07/09/2024 CVA (cerebral vascular accident) ([facility]) 10/26/2022 Diverticulosis of colon 07/09/2024 History of transient ischemic attack (TIA) 10/26/2022 Hypercalcemia 12/23/2012 Hyperlipidemia ([facility]) 07/09/2024 Hypertension ([facility]) 07/09/2024 Hypogonadism male 12/23/2012 Incontinence of feces with fecal urgency 07/09/2024 Paroxysmal atrial fibrillation ([facility]) 10/18/2022 Persistent atrial fibrillation (HCC) ([facility]) 10/16/2022 PFO (patent foramen ovale) 11/28/2022 Primary hyperparathyroidism ([facility]) 12/24/2019 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[facility]) 11/16/2009 Pure hypercholesterolemia ([facility]) 07/09/2024 Thyroid nodule ([facility]) 11/16/2009 Type 2 diabetes mellitus with hyperglycemia ([facility]) 07/09/2024 Coronary artery disease involving [place] coronary artery of [place] heart without angina pectoris ([facility]) 09/16/2024 Diabetes mellitus due to underlying condition with diabetic cataract ([facility]) 09/16/2024 Nonischemic cardiomyopathy ([facility]) 09/16/2024 Overweight (BMI 25.0-29.9) 12/29/2024 Type 2 diabetes mellitus without complication ([facility]) 09/24/2012 Vasovagal syncope 10/26/2022 Resolved Ambulatory Problems Diagnosis Date Noted Diarrhea 07/09/2024 Dietary counseling and surveillance 07/09/2024 Rotator cuff strain 06/16/2013 S/P ablation of atrial fibrillation 05/02/2023 Past Medical History: Diagnosis Date Afib ([facility]) CHF (congestive heart failure) ([facility]) Diabetes mellitus type II, controlled ([facility]) GERD (gastroesophageal reflux disease) Hypercholesterolemia ([facility]) Hypogonadism in male Hypothyroid ([facility]) Stroke ([facility]) 2016 Past Surgical History: Procedure Laterality Date [...] annually if stable documented in this encounter [facility] 09-16-2024 Note OK Cardiology - [facility] Subjective Gadiel Liang is a [...] in the mor (more content not included)... [facility] 07-14-2024 History of Present illness Narrative Subjective Patient ID: Alexis Liang is a 73 y.o. male who presents for Thyroid Nodule (Ultrasound 06/09/24. ) Pt has a long h/o thyroid nodules and a remote h/o parathyroidectomy. H/O prolactinoma tx medically. 05/3024 thyroid US shows a [id number] RT TR5 nodule. 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 Review of Systems All other systems reviewed and are negative. Family History Problem Relation Name Age of Onset Diabetes type II Mother Active Ambulatory Problems Diagnosis Date Noted Alzheimer's disease with late onset ([facility]) 06/27/2024 Dementia in other diseases classified elsewhere, unspecified severity, without behavioral disturbance, psychotic disturbance, mood disturbance, and anxiety ([facility]/HCC) 06/27/2024 History of ischemic stroke 06/27/2024 Personality change 06/27/2024 Pituitary mass (CMS/HCC) 06/27/2024 Depression (CMS/HCC) 06/27/2024 Memory impairment 06/27/2024 Abnormal stress test 04/28/2015 Acquired hypothyroidism (CMS/HCC) 07/09/2024 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CMS/HCC) 02/23/2015 Atrial flutter (CMS/HCC) 11/28/2022 Carotid stenosis, bilateral 04/01/2024 Chronic systolic heart failure ([facility]) 11/15/2022 Constipation 07/09/2024 CVA (cerebral vascular accident) ([facility]) 10/26/2022 Diverticulosis of colon 07/09/2024 History of transient ischemic attack (TIA) 10/26/2022 Hypercalcemia 12/23/2012 Hyperlipidemia ([facility]) 07/09/2024 Hypertension ([facility]) 07/09/2024 Hypogonadism male 12/23/2012 Incontinence of feces with fecal urgency 07/09/2024 Paroxysmal atrial fibrillation ([facility]) 10/18/2022 Persistent atrial fibrillation (HCC) ([facility]) 10/16/2022 PFO (patent foramen ovale) 11/28/2022 Primary hyperparathyroidism ([facility]) 12/24/2019 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[facility]) 11/16/2009 Pure hypercholesterolemia ([facility]) 07/09/2024 Thyroid nodule ([facility]) 11/16/2009 Type 2 diabetes mellitus with hyperglycemia ([facility]) 07/09/2024 Resolved Ambulatory Problems Diagnosis Date Noted Diarrhea 07/09/2024 Dietary counseling and surveillance 07/09/2024 Rotator cuff strain 06/16/2013 S/P ablation of atrial fibrillation 05/02/2023 Past Medical History: Diagnosis Date Afib ([facility]) CHF (congestive heart failure) ([facility]) Diabetes mellitus type II, controlled ([facility]) GERD (gastroesophageal reflux disease) Hypercholesterolemia ([facility]) Hypogonadism in male Hypothyroid ([facility]) Stroke ([facility]) 2016 Past Surgical History: Procedure Laterality Date [...] sig growth found documented in this encounter [facility] 06-18-2024 Telephone encounter Note Summary: [place] Received a mail from [facility] with a notice on the Authorization for MRI, Brain, W/O Contrast Dated: 06/04/24 Status: Approve Service Requested: MRI, Brain, W/O Contrast Effective Dates: 06/04/2024 - 09/01/2024 Reference #: [id number] Uploaded into scan docs. Please allow time for upload. [facility] 06-18-2024 Miscellaneous Notes Summary: [place] Received a mail from [facility] with a notice on the Authorization for MRI, Brain, W/O Contrast Dated: 06/04/24 Status: Approve Service Requested: MRI, Brain, W/O Contrast Effective Dates: 06/04/2024 - 09/01/2024 Reference #: [id number] Uploaded into scan docs. Please allow time for upload. documented in this encounter [facility] 05-07-2024 History of Present illness Narrative Consults [...] results for the last 24 hours, type .[id number] If you would like to pull in [...] which included preparing to see the patient, [id number] patient care, completing clinical documentation, obtaining and [...] Mandie Osborne MD documented in this encounter [facility] Work Phone: 04-14-2024 Procedure note [place] 10-29-2023 Evaluation note Encounter Date Diagnosis Assessment [...] improved w present med increase in dose. [facility] Other 11-03-2023 Evaluation note* Encounter Date Diagnosis Assessment Notes Treatment Notes Treatment Clinical Notes Sep, Anxiety (ICD-10 - F41.9) [facility] 10-31-2023 Evaluation note* Encounter Date Diagnosis Assessment Notes Treatment Notes Treatment Clinical Notes Aug, Anxiety (ICD-10 - F41.9) [facility] Other 10-09-2023 Evaluation note* Encounter Date Diagnosis [...] from 25mg to 50mg for better results. [facility] Other 11-30-2022 Chief complaint Narrative - Reported* [...] Patient presents for a follow up visit. VY[facility]Jnoaylusfifuq[facility] [address] Work Phone: 1(738) 398-673608-22-2022 Miscellaneous Notes* Telephone Encounter - Janee Hughes - 07/02/2022 2:37 PM EDT Received Thyroid US report from [facility]. Indexed into chart. [facility] Chief complaint Narrative - Reported* An interactive [...] follow-up for hypothyroidism, pituitary, and diabetes today. [facility] [address] Work Phone: Evaluation noteNo Social PointDeviceAuthority [employer] Other Evaluation note* Diagnosis Onset Date Resolution Status Bronchitis noneactive Constipation acute Incontinence of feces with fecal urgency acute [facility] Work Phone: Evaluation note* Diagnosis Hypopituitarism (Multi)- Primary Panhypopituitarism Hypogonadism male Other testicular hypofunction Hyperparathyroidism (Multi) Hyperparathyroidism, unspecified Hyperprolactinemia (Multi) Other and unspecified anterior pituitary hyperfunction Type 2 diabetes mellitus without complication, with long-term current use of insulin (Multi) Thyroid nodule Nontoxic uninodular goiter documented in this encounter [facility] Work Phone: Evaluation note* Diagnosis Thyroid nodule [...] circulatory complications acute May 24, 2025 9:50am [facility] Work Phone: History and physical note Author Merly Paul [facility] April 14, 2024 11:26am Note Date/Time April 14, 2024 11:26 am [facility] [address] [place] [address] Gastroenterology H&P Signed Patient: Gadiel Liang MR#: [id number] : 1950 Acct:[id number] Age/Sex: 73 / M Adm Date: 4 Loc: Room: Type: [facility] Attending Dr: Merly Paul DO Copies [...] signed by Merly Paul DO> 04/14/[address] [facility] Work Phone: History general Narrative - Reported* Type Description Date Medical History Diabetes mellitus Medical History Hyperlipemia Medical History Acid reflux Medical History Hiatal hernia Medical History Pituitary tumor Surgical History knee surgery Surgical History shoulder surgery Surgical History thyroid nodule removed Hospitalization History hematoma related to fall 2011 Hospitalization History TIA 03/2020 Hospitalization History DEHYDRATION 09/2020 [facility] Other History of Present illness Narrative* This [...] * -Most recent US on 12/2019 in [place], records not available * -Due for US [...] on file * Occupational History * Occupation: [employer] * Employer: [employer] * Comment: retired * Tobacco Use * Smoking status: Former Smoker * Years: 16.00 * Quit date: 12/12/1992 * Years since quittin.1 * Smokeless tobacco: Never Used * Substance and Sexual Activity * Alcohol use: No * Drug use: No * Sexual activity: Not on file * Other Topics * Concerns: * Not on file * Social History Narrative * 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 NT-Hstfkelpcgldx-[facility] [address] Work Phone: reason for referral (narrative)No reason for referral information availableGrant Hospital Work Phone: Summary Purpose Family History [...] [place] [id number] [address] [facility] [place] [address] Referral ID Status Reason Start Date Expiration Date Visits Requested Visits Authorized [id number] Pending Review Perform Procedure 05/07/2024 05/07/2025 1 1 Specialty Diagnoses / Procedures Referred By Saeid vecnes Referred To Contact Radiology Diagnoses Hypopituitarism (Multi) Hypogonadism male Hyperparathyroidism (Multi) Hyperprolactinemia (Multi) Type 2 diabetes mellitus without complication, with long-term current use of insulin (Multi) Thyroid nodule [place] [address] [employer] [facility] [place] [address] Referral ID Status Reason Start Date Expiration Date Visits Requested Visits Authorized [id number] Authorized Perform Procedure 05/07/2024 05/07/2025 1 1 Additional Source Comments (unrecognized sect ion and content) No Status Records FoundNo Status Records FoundNo Status Records FoundNo Status Records FoundNo Status Records FoundNo Status Records FoundNo Status Records FoundNo Status Records Found INFORMATION SOURCE (unrecogn ized section and content) DATE CREATED AUTHOR 05/07/2018 [facility] DATE CREATED AUTHOR AUTHOR'S ORGANIZ ATION 10/11/2022 [facility] DATE CREATED AUTHOR AUTHOR'S ORGANIZ ATION 10/11/2022 [employer] DATE CREATED AUTHOR AUTHOR'S ORGANIZ ATION [facility]/04[facility]2023 [facility] DATE CREATED AUTHOR AUTHOR'S ORGANIZ ATION 04/22/2024 [facility] DATE CREATED AUTHOR AUTHOR'S ORGANIZ ATION 06/21/2024 [facility] DATE CREATED AUTHOR AUTHOR'S ORGANIZ ATION 02/14/2025 [facility] EPIC DATE CREATED AUTHOR AUTHOR'S CORTES MEDRANO 06/27/2025 [facility] Source Comments (unrecognize d section and content) In the event this informatio n is protected by the Federal Confidentiality of Alcohol and Drug Abuse Patient Records regulations: The Federal rules restrict any use of the information to criminally investigate or prosecute any alcohol or drug abuse patient.[facility] Center[facility] the event this information is protected by the Federal Confidentiality of Alcohol and Drug Abuse Patient Records regulations: The Federal rules restrict any use of the information to criminally investigate or prosecute any alcohol or drug abuse patient.[facility] Reason for Visit (unrecogniz ed section and content) Reason Comments Received Outside Medical Records Receive d Thyroid US report from [facility]. Indexed into chart. Reason Comments Insurance Authorization [place] Reason Comments Follow-up Pituitary Problem Reason Comments Thyroid Nodule Ultrasound 06/09/24. Reason Comments Thyroid Nodule 5 month ultrasound T 12/23/24 Reason Comments Osteoarthritis Specialty Diagnoses / Procedures Referred By Saeid vences Referred To Contact Orthopaedic Surgery Diagnoses Primary osteoarthritis of right hip Isaura Garber, BUSINESS OBJECTS ARCHITECT [address] [place] [address] Phone: tel: fax: Ansley Chaves, DO [address] [facility] [address] [place], [place] Phone: tel: fax: Referral ID Status Reason Start Date Expiration Date V isits Requested Visits Authorized [id number] Closed Specialty Services Required 02/01/2025 07/31/2025 1 [...] May 24, 2025 End: May 24, 2025 Outpatient Surgery Rn Relationship Specialty Start Date End Date Cabrera [...] Other Provider Active Start: April 14, 2024 Outpatient Surgery Rn Relationship Specialty Start Date End Date Cabrera Dupont MD PCP - General Family Medicine 01/21/19 Outpatient Surgery Rn Relationship Specialty Start Date End Date Cabrera Dupont MD [address] [facility] [place] [address] PCP - General 11/30/20 Outpatient Surgery Rn Relationship Specialty Start Date End Date Joseluis Quiroz MD [address] [facility] [place] [phone] PCP - General Family Medicine 03/23/24 Outpatient Surgery Rn Relationship Specialty Start Date End Date Joseluis Quiroz MD [address] [facility] [phone] PCP - General Family Medicine 03/23/24 Outpatient Surgery Rn Relationship Specialty Start Date End Date Joseluis Quiroz MD [address] [facility] [place] [phone] PCP - General Family Medicine 03/23/24 Outpatient Surgery Rn Relationship Specialty Start Date End Date Joseluis Quiroz MD [address] [facility] [phone] PCP - General Family Medicine 03/23/24 Outpatient Surgery Rn Relationship Specialty Start Date End Date Joseluis Quiroz MD [address] [facility] [phone] PCP - General Family Medicine 03/23/24 Outpatient Surgery Rn Relationship Specialty Start Date End Date Joseluis Quiroz MD [address] [facility] [phone] PCP - General Family Medicine 03/23/24 Outpatient Surgery Rn Relationship Specialty Start Date End Date Joseluis [...] BE BASED ON THE PRIMARY CLINICAL RECORDS. [facility] [employer]. provides no warranty or guarantee of the accuracy or completeness of information in this document.
[2025-07-07] MEDS: CARVEDILOL 6.25 MG TABLET PO (21:56)
[2025-07-07] MEDS: APIXABAN 5 MG TABLET PO (21:56)
[2025-07-07] MEDS: ESCITALOPRAM 10 MG TABLET PO (21:56)
[2025-07-07] MEDS: INSULIN GLARGINE 300 UNIT/3 ML INSULN.PEN 35 UNIT SQ (21:56)
[2025-07-07] MEDS: INSULIN ASPART 300 UNIT/3 ML PEN SUBQ (21:57)
[2025-07-08] VITALS (19 sets, daily range): BP systolic 105–143; BP diastolic 54–73; PULSE 58–81; TEMP 36.4–36.8; O2SAT 92–97
[2025-07-08] MEDS: LEVOTHYROXINE SODIUM 75 MCG TABLET PO (05:32)
[2025-07-08 05:37] LABS: Hematocrit 40.2 % (42.0-54.0); Hemoglobin 13.1 g/dL (14.0-18.0); Immature Granulocytes Abs Auto 0.04 10^3/uL (0.00-0.03); Immature Granulocytes Pct Auto 0.5 % (0.0-0.5); Lymphocytes Absolute Auto 2.1 10^3/uL (1.2-3.8); Mean Corpuscular HGB Conc 32.6 g/dL (29.9-35.2); Mean Corpuscular Hemoglobin 29.2 pg (25.9-34.0); Mean Corpuscular Volume 89.5 fL (80.0-94.0); Platelet Count 203 10^3/uL (150-450); Red Blood Count 4.49 10^6/uL (4.70-6.10); White Blood Count 8.3 10^3/uL (4.0-11.0)
[2025-07-08 06:00] LABS: Alanine Aminotransferase 21 U/L (16-63); Albumin Globulin Ratio 1.1; Albumin Level 3.6 g/dL (3.4-5.0); Alkaline Phosphatase 53 U/L (46-116); Anion Gap 10.9; Aspartate Amino Transferase 11 U/L (15-37); Blood Urea Nitrogen 17.0 mg/dL (7.0-18.0); Calcium 9.2 mg/dL (8.5-10.1); Carbon Dioxide 25.9 mmol/L (21.0-32.0); Chloride 108 mmol/L (98-107); Estimated GFR (African America >60 (>=60 mL/min/1.73m^2); Estimated GFR (Non-African Ame >60 (>=60 mL/min/1.73m^2); Globulin 3.2 g/dL; Glucose 79 mg/dL (74-106); NT Pro B Type Natriuretic Pept 182.0 pg/mL (<=900.0); Potassium 3.8 mmol/L (3.5-5.1); Sodium 141 mmol/L (136-145); Total Protein 6.8 g/dL (6.4-8.2)
--- NOTE | 2025-07-08 07:00 | CA_ITS ---
Patient Name: SANTA SMITH MR#: [id number] : 1950 Exam Date: 07/08/2025 Ordering Doctor: FAY LAGUNA ECHOCARDIOGRAM REPORT PROCEDURE: CA ECHO DOPPLER COMPLETE INDICATIONS: Dyspnea, r/o valvular disease, h/o ablation for atrial fibrillation, congestive heart failure COMPARISON: None. DESCRIPTION: COMPLETE ECHOCARDIOGRAM Real-time transthoracic echocardiography with 2D, M-mode, spectral and color flow Doppler performed. QUALITY: Technical quality was good. LEFT VENTRICLE: Normal chamber size. Mild concentric left ventricular hypertrophy. Normal to hyperdynamic left ventricle systolic function without wall motion abnormalities, ejection fraction estimated about 70% LV EF: Normal left ventricular ejection fraction, (>55%). DIASTOLIC: Normal diastolic function. ATRIAL SEPTUM: Visually appears intact LEFT ATRIUM: Normal chamber size. RIGHT ATRIUM: Normal chamber size. RIGHT VENTRICLE: Normal chamber size. Normal right ventricular systolic function. TRICUSPID VALVE: Normal mobility and thickness. No stenosis with no regurgitation. MITRAL VALVE: Normal mobility and thickness. No evidence of mitral valve stenosis. There is no mitral annular calcification. No mitral regurgitation. AORTIC VALVE: Normal trileaflet appearance. Mildly calcified aortic valve. Normal leaflet mobility. No evidence of aortic valve stenosis. No aortic regurgitation. AORTIC ROOT: Normal diameter and appearance. PULMONIC VALVE: Not well visualized. No stenosis. No regurgitation. PERICARDIUM: No evidence of pericardial effusion. IVC: Collapes with inspirations. IVC is normal in size. PLEURA: CONCLUSION: Mild concentric left ventricle hypertrophy Normal to hyperdynamic left ventricle systolic function without wall motion abnormalities, ejection fraction 70% Normal left ventricle diastolic function Normal right ventricular size and systolic function Aortic valve sclerosis without stenosis No significant valvular abnormalities Adult Echocardiography Procedure Report Left Ventricle LVEDD (3.7 - 5.6 cm): 3.87 cm LVESD (2.2 - 4.0 cm): 3.28 cm LVIVS thickness (0.6 - 1.2 cm): 1.33 cm LVPW thickness (0.5 - 1.0 cm): 1.30 cm e': 0.13 m/s E - e': 3.12 LVOT Max Gradient: 2.80 mm[Hg] LVOT Area (cm2): 0.84 m/s Peak Velocity (LVOT): 0.84 m/s Mean Velocity (LVOT): 0.52 m/s LVOT Diameter 2.11 cm Left Ventricular Ejection Fraction: Left Atrium LA Volume Index (2D A2C): 34.88 ml/m2 Left Atrium Systolic Dimension: 4.87 cm Mitral Valve MV E to A Ratio: 0.74 MV Max Gradient: MV Mean Gradient: Mitral Valve A-Wave Peak Velocity: 0.54 m/s Mitral Valve E-Wave Peak Velocity: 0.40 m/s Cardiovascular Orifice Area: Right Ventricle RV Internal Diastolic Dimension: Aorta AO Root Diam: 4.00 cm Ascending Ao Diam: Aortic Valve AoV Area (Peak Sean): 2.37 cm2, 2.37 cm2 AoV Area (VTI): 2.75 cm2, 2.75 cm2 Deceleration [place]: Pressure Half-Time: Peak Velocity(Antegrade Flow): 1.23 m/s Peak Gradient(Antegrade Flow): 6.05 mm[Hg] Mean Velocity(Antegrade Flow): 0.73 m/s Mean Gradient(Antegrade Flow): 2.70 mm[Hg] Velocity Time Integral: 21.44 cm Tricuspid Valve Peak Velocity (Regurgitant Flow): Peak Velocity: Pulmonic Valve Mean Gradient: Mean Velocity: Peak Velocity: 0.81 m/s Peak Gradient: 2.61 mm[Hg] Right Atrium Right Atrium Systolic Pressure: 50.38 ml, 50.38 ml Dictated by: Abiel Hernandez MD on 07/09/2025 at 17:47 Approved by: Abiel Hernandez MD on 07/09/2025 at 17:52
[2025-07-08] MEDS: INSULIN ASPART 300 UNIT/3 ML PEN SUBQ ×4 (08:44→20:43)
[2025-07-08] MEDS: LISINOPRIL 5 MG TABLET PO (08:46)
[2025-07-08] MEDS: APIXABAN 5 MG TABLET PO ×2 (08:46→20:43)
[2025-07-08] MEDS: PANTOPRAZOLE SODIUM 40 MG TABLET.DR PO (08:46)
[2025-07-08] MEDS: CARVEDILOL 6.25 MG TABLET PO ×2 (08:46→20:43)
[2025-07-08] MEDS: BUPROPION HCL 150 MG XL TABLET 24H PO (08:46)
--- NOTE | 2025-07-08 08:50 | CM.NOTE ---
Rounds made with Dr. Zuniga, discussed with pt reason for admission and plan of care. Pt will have cardiac echo and cardiology consult today. Pt verbalizes understanding.
--- NOTE | 2025-07-08 11:23 | PM.HP ---
HPI H&P: HPI History of Present Illness Chief complaint: SOB, DIZZINESS EXERTIONAL DYSPNEA Narrative: Mr Liang is a 74-year-old gentleman with a history of hypertension, diabetes, hyperlipidemia and hypothyroidism. Patient presented to the emergency room with 3 weeks history of progressive dyspnea on exertion. No chest pain. No fever or chills. No cough. Patient reports that when he walks outside he gets tired and fatigued easily and he feels like he is out of breath. Once again, patient denied any chest pain or squeezing sensation. No abdominal pain. No nausea or vomiting. Patient had a history of A-fib. He had ablation. He is on Eliquis. Never had a heart attack or had received any stenting Opioid HPI Opioid Management Most Recent Pain and Opioid Data: Last Pain Scale 0 Today, 07:38 Last Pain Assessment 07/07/25, 18:00 Last ORT Total Score 3 07/07/25, 17:45 Last ORT Risk Category Low Risk 07/07/25, 17:45 Review of Systems ROS Status of ROS 10 or more systems reviewed and unremarkable except as noted in history and below [facility] Medical History (Updated 07/08/25 @ 11:29 by Norberto Zuniga MD) Cataract ?H26.9 - Unspecified cataract (ICD-10) Carpal tunnel syndrome of right wrist ?G56.01 - Carpal tunnel syndrome, right upper limb (ICD-10) Right shoulder tendonitis ?M77.8 - Other enthesopathies, not elsewhere classified (ICD-10) Left shoulder tendonitis ?M77.8 - Other enthesopathies, not elsewhere classified (ICD-10) Afib ?I48.91 - Unspecified atrial fibrillation (ICD-10) CHF (congestive heart failure) ?I50.9 - Heart failure, unspecified (ICD-10) TIA (transient ischemic attack) ?G45.9 - Transient cerebral ischemic attack, unspecified (ICD-10) Ischemic stroke of frontal lobe ?I63.9 - Cerebral infarction, unspecified (ICD-10) Hiatal hernia ?K44.9 - Diaphragmatic hernia without obstruction or gangrene (ICD-10) GERD (gastroesophageal reflux disease) ?K21.9 - Gastro-esophageal reflux disease without esophagitis (ICD-10) Type 2 diabetes mellitus ?E11.9 - Type 2 diabetes mellitus without complications (ICD-10) 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 - Benign neoplasm of pituitary gland (ICD-10) Surgical History (Updated 07/07/25 @ 15:08 by Portia Cheney) H/O parathyroidectomy ?Z98.890 - Other specified postprocedural states (ICD-10) ?Z90.89 - Acquired absence of other organs (ICD-10) S/P removal of thyroid nodule ?Z98.890 - Other specified postprocedural states (ICD-10) History of cardiac ablation for atrial fibrillation ?Z98.890 - Other specified postprocedural states (ICD-10) ?I48.91 - Unspecified atrial fibrillation (ICD-10) Social History Highest level of school completed/degree received: high school graduate Little interest or pleasure in doing things: not at all Feeling down, depressed, or hopeless: not at all Meds Home Medications and Allergies Home Medications ?Medication ?Instructions ?Recorded ?Confirmed ?Type apixaban 5 mg tablet (Eliquis) 5 mg PO Q12H 03/07/24 07/07/25 History bupropion HCl 150 mg 24 hr tablet, 150 mg PO DAILY 03/07/24 07/07/25 History extended release cabergoline 0.5 mg tablet 0.5 mg PO .every other day 03/07/24 07/07/25 History carvedilol 6.25 mg tablet 6.25 mg PO Q12H 03/07/24 07/07/25 History dapagliflozin propanediol 10 mg 10 mg PO DAILY 03/07/24 07/07/25 History tablet (Farxiga) escitalopram oxalate 10 mg tablet 10 mg PO DAILY 03/07/24 07/07/25 History esomeprazole magnesium 40 mg 40 mg PO DAILY 03/07/24 07/07/25 History capsule,delayed release furosemide 40 mg tablet 40 mg PO DAILY PRN edema 03/07/24 07/07/25 History insulin glargine 100 unit/mL (3 35 unit subcut DAILY 03/07/24 07/07/25 History mL) subcutaneous pen (Lantus Solostar U-100 Insulin) levothyroxine 75 mcg tablet 75 mcg PO DAILY 03/07/24 07/07/25 History (Synthroid) lisinopril 5 mg tablet 5 mg PO DAILY 03/07/24 07/07/25 History metformin 500 mg tablet 500 mg PO DAILY 03/07/24 07/07/25 History spironolactone 25 mg tablet 12.5 mg PO DAILY 03/07/24 07/07/25 History rosuvastatin 40 mg tablet (Crestor) 40 mg PO DAILY 07/07/25 07/07/25 History Allergies Allergy/AdvReac Type Severity Reaction Status Date / Time No Known Drug Allergies Allergy Verified 07/07/25 14:25 Exam Narrative Exam Narrative: [pt is awake and alert. oriented to place, time and person HEENT: [place] conjunctiva and NL buccal mucosa Neck: Supple, no tenderness Endocrine: No Thyromegaly. Vascular: No JVD or carotid bruit. Lymphatic: No cervical lymphadenopathy. Chest: CTA no DTP. Heart RRR, no extra sound or murmur. Abd: Soft, no tenderness, no rebound and no rigidity. Increase abd girth therefore clinically I could not exclude the possibility of intra abd mass or organomegaly. LE: No cyanosis or clubbing, no varices or edema. Neuro: A A O. Nl speech, comprehension and attention. Nl and symetrical motor and tone examination through out. []] Constitutional Vital Signs, click to edit/add: Last Vital Signs Temp 97.6 F 07/08/25 07:38 Pulse 72 07/08/25 10:00 Resp 16 07/08/25 07:38 BP 143/73 H 07/08/25 07:38 Pulse Ox 97 07/08/25 07:38 O2 Del Method Room Air 07/08/25 07:38 Results Labs Labs: Short CBC 07/07/25 07/08/25 Range/Units 14:36 05:09 WBC 6.9 8.3 (4.0-11.0) 10^3/uL Hgb 14.2 13.1 L (14.0-18.0) g/dL Hct 43.2 40.2 L (42.0-54.0) % Plt Count 207 203 (150-450) 10^3/uL BMP 07/07/25 07/08/25 14:36 05:09 Sodium 136 141 Potassium 4.6 3.8 Chloride 104 108 H Carbon Dioxide 25.3 25.9 BUN 16.0 17.0 Creatinine 1.30 0.98 Glucose 309 H 79 Calcium 9.3 9.2 Liver Function 07/08/25 Range/Units 05:09 Total Bilirubin 1.2 H (0.2-1.0) mg/dL AST 11 L (15-37) U/L ALT 21 (16-63) U/L Alkaline Phosphatase 53 (46-116) U/L Albumin 3.6 (3.4-5.0) g/dL Assessment and Plan Assessment and Plan (1) Exertional dyspnea: (2) Paroxysmal A-fib: (3) Diabetes: (4) Hypertension: (5) Hypothyroid: (6) Hyperlipidemia: Plan Exertional dyspnea for the last few weeks. is telling me that patient had from her. He has been having it since April. Workup thus far is negative. Serial troponins are negative. EKG does not show ST elevation or depression. CTA of the chest is negative for PE, pneumonia, pneumothorax or edema. O2 saturation is 97% on room air Patient smoked for 35 years in the past. He quit 35 years ago. Never been diagnosed having COPD or emphysema I suspect that his exertional dyspnea could be related to exertional angina. May need to have a stress test. Could be related to valvular disease such as aortic stenosis Echocardiogram is ordered Cardiac evaluation to evaluate his case and provide further recommendation. May need to have stress test as listed above Paroxysmal A-fib Currently patient is in sinus rhythm Continue Eliquis and beta-argelia Diabetes Holding metformin for 48 hours after contrasted CTA completed yesterday in the emergency room department Sliding scale coverage Hypothyroidism Continue Synthroid Slight elevation of the bilirubin Unknown etiology. Patient does not have any tenderness in the right upper quadrant. Patient has had elevation of bilirubin before in May and December 2023 Unknown etiology, broad differential diagnosis including but not limited to cholestasis, neoplastic, autoimmune, infiltrative liver disease. This will need to be investigated further. Could be investigated further in the outpatient setting by PCP and/or with collaboration with hepatology Chronic medical conditions not listed above, incidental findings seen on labs and imaging. These would need to be addressed. Could be addressed when time and condition are appropriate. Could be addressed in the outpatient setting by PCP collaboration with other needed outpatient providers. I discussed this case with his at the bedside. I provided her information about his disease, prognosis, expectation and trajectory. Answered all of her questions.
--- NOTE | 2025-07-08 12:52 | PM.CACN ---
History of Present Illness History of Present Illness Consult date: 07/08/25 Consult reason: shortness of breath Chief complaint: SOB, DIZZINESS EXERTIONAL DYSPNEA Narrative: Mr. Vallecillo tells me that he has had progressive shortness of breath with activity I walked out into my yard to cut a metal pole, got a third of the way through and had to stop due to SOB . He also complains of dizziness with standing. He has no chest pain or tightness. He denies PND or orthopnea although he sleeps in a recliner due to reflux Review of Systems ROS Narrative No fever, chills, change in vision, cough, abdominal pain, swelling, neck pain Does have exertional SOB, no CP or tightness PFSH PFSH Medical History (Updated 07/08/25 @ 13:34 by MILANA TURCIOS MD) Cataract ?H26.9 - Unspecified cataract (ICD-10) Carpal tunnel syndrome of right wrist ?G56.01 - Carpal tunnel syndrome, right upper limb (ICD-10) Right shoulder tendonitis ?M77.8 - Other enthesopathies, not elsewhere classified (ICD-10) Left shoulder tendonitis ?M77.8 - Other enthesopathies, not elsewhere classified (ICD-10) Afib ?I48.91 - Unspecified atrial fibrillation (ICD-10) CHF (congestive heart failure) ?I50.9 - Heart failure, unspecified (ICD-10) TIA (transient ischemic attack) ?G45.9 - Transient cerebral ischemic attack, unspecified (ICD-10) Ischemic stroke of frontal lobe ?I63.9 - Cerebral infarction, unspecified (ICD-10) Hiatal hernia ?K44.9 - Diaphragmatic hernia without obstruction or gangrene (ICD-10) GERD (gastroesophageal reflux disease) ?K21.9 - Gastro-esophageal reflux disease without esophagitis (ICD-10) Type 2 diabetes mellitus ?E11.9 - Type 2 diabetes mellitus without complications (ICD-10) 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 - Benign neoplasm of pituitary gland (ICD-10) Surgical History (Updated 07/07/25 @ 15:08 by Portia Cheney) H/O parathyroidectomy ?Z98.890 - Other specified postprocedural states (ICD-10) ?Z90.89 - Acquired absence of other organs (ICD-10) S/P removal of thyroid nodule ?Z98.890 - Other specified postprocedural states (ICD-10) History of cardiac ablation for atrial fibrillation ?Z98.890 - Other specified postprocedural states (ICD-10) ?I48.91 - Unspecified atrial fibrillation (ICD-10) Social History Highest level of school completed/degree received: high school graduate Little interest or pleasure in doing things: not at all Feeling down, depressed, or hopeless: not at all Meds Home Medications and Allergies Home Medications ?Medication ?Instructions ?Recorded ?Confirmed ?Type apixaban 5 mg tablet (Eliquis) 5 mg PO Q12H 03/07/24 07/07/25 History bupropion HCl 150 mg 24 hr tablet, 150 mg PO DAILY 03/07/24 07/07/25 History extended release cabergoline 0.5 mg tablet 0.5 mg PO .every other day 03/07/24 07/07/25 History carvedilol 6.25 mg tablet 6.25 mg PO Q12H 03/07/24 07/07/25 History dapagliflozin propanediol 10 mg 10 mg PO DAILY 03/07/24 07/07/25 History tablet (Farxiga) escitalopram oxalate 10 mg tablet 10 mg PO DAILY 03/07/24 07/07/25 History esomeprazole magnesium 40 mg 40 mg PO DAILY 03/07/24 07/07/25 History capsule,delayed release furosemide 40 mg tablet 40 mg PO DAILY PRN edema 03/07/24 07/07/25 History insulin glargine 100 unit/mL (3 35 unit subcut DAILY 03/07/24 07/07/25 History mL) subcutaneous pen (Lantus Solostar U-100 Insulin) levothyroxine 75 mcg tablet 75 mcg PO DAILY 03/07/24 07/07/25 History (Synthroid) lisinopril 5 mg tablet 5 mg PO DAILY 03/07/24 07/07/25 History metformin 500 mg tablet 500 mg PO DAILY 03/07/24 07/07/25 History spironolactone 25 mg tablet 12.5 mg PO DAILY 03/07/24 07/07/25 History rosuvastatin 40 mg tablet (Crestor) 40 mg PO DAILY 07/07/25 07/07/25 History Allergies Allergy/AdvReac Type Severity Reaction Status Date / Time No Known Drug Allergies Allergy Verified 07/07/25 14:25 Exam Constitutional Vital Signs, click to edit/add: Last Vital Signs Temp 98.3 F 07/08/25 11:35 Pulse 66 07/08/25 12:00 Resp 16 07/08/25 11:35 BP 119/54 07/08/25 11:35 Pulse Ox 94 L 07/08/25 11:35 O2 Del Method Room Air 07/08/25 11:35 Documenting provider has reviewed patient's vital signs: yes Common normals: no apparent distress, average body habitus, oriented x3 and well nourished General appearance: cooperative and comfortable HENMT Common normals: normocephalic and head/scalp atraumatic Neck & C-Spine Common normals: no carotid bruits (bruit R) Other: JVP approximately 6 cm Chest Common normals: inspection of chest normal and palpation of chest normal Respiratory Common normals: normal respiratory effort Effort & inspection: able to speak in complete sentences and symmetric chest movement Auscultation: clear to auscultation bilaterally Cardio Common normals: regular rate, regular rhythm, S1 normal heart sound, S2 normal heart sound, no gallops, no clicks and no murmurs Palpation: normal PMI (unable to feel PMI) Rate: regular rate Rhythm: regular rhythm Heart sounds: S1 normal and S2 normal Peripheral pulses: pulses 2+ throughout, radial pulses present, posterior tibial pulses present and dorsalis pedis pulses present GI Common normals: Normal to inspection, nondistended, normoactive bowel sounds present and soft to palpation Extremity Common normals: normal to inspection Neuro Common normals: oriented x3 Psych Common normals: mental status grossly normal Results Labs and Meds Lab results: Cardiac Enzymes 07/08/25 Range/Units 05:09 AST 11 L (15-37) U/L CBC 07/07/25 07/08/25 Range/Units 14:36 05:09 WBC 6.9 8.3 (4.0-11.0) 10^3/uL RBC 4.83 4.49 L (4.70-6.10) 10^6/uL Hgb 14.2 13.1 L (14.0-18.0) g/dL Hct 43.2 40.2 L (42.0-54.0) % Plt Count 207 203 (150-450) 10^3/uL Neut # (Auto) 4.7 (1.4-6.5) 10^3/uL Lymph # (Auto) 2.1 (1.2-3.8) 10^3/uL [place] # (Auto) 1.0 H (0.3-0.8) 10^3/uL Eos # (Auto) 0.4 (0.0-0.7) 10^3/uL Baso # (Auto) 0.1 (0.0-0.1) 10^3/uL Comprehensive Metabolic Panel 07/07/25 07/08/25 Range/Units 14:36 05:09 Sodium 136 141 (136-145) mmol/L Potassium 4.6 3.8 (3.5-5.1) mmol/L Chloride 104 108 H (98-107) mmol/L Carbon Dioxide 25.3 25.9 (21.0-32.0) mmol/L BUN 16.0 17.0 (7.0-18.0) mg/dL Creatinine 1.30 0.98 (0.70-1.30) mg/dL Glucose 309 H 79 (74-106) mg/dL Calcium 9.3 9.2 (8.5-10.1) mg/dL AST 11 L (15-37) U/L ALT 21 (16-63) U/L Alkaline Phosphatase 53 (46-116) U/L Total Protein 6.8 (6.4-8.2) g/dL Albumin 3.6 (3.4-5.0) g/dL Intake and Output 07/07/25 07/08/25 07/08/25 23:59 07:59 15:59 Intake Total 800 / 800 240 / 240 Balance 800 / 800 240 / 240 Intake: Oral 800 / 800 240 / 240 Other: Weight 86.8 kg 87.8 kg EKG Interpretation EKG: no acute changes (EKG demonstrates right bundle branch block and inferior T wave inversions that are not different from EKGs in February 2024 by my review) Assessment and Plan Assessment and Plan (1) Exertional dyspnea: (2) Paroxysmal A-fib: (3) Diabetes: (4) Hypertension: Qualifiers: Hypertension type: primary hypertension Qualified Code(s): I10 - Essential (primary) hypertension (5) Hypothyroid: Qualifiers: Hypothyroidism type: other Qualified Code(s): E03.8 - Other specified hypothyroidism (6) Hyperlipidemia: Qualifiers: Hyperlipidemia type: other hyperlipidemia Qualified Code(s): E78.49 - Other hyperlipidemia Plan Mr. Vallecillo has a clear increase in SOB with activity however, he does not appear to be in heart failure at this time: pro-BNP normal as is chest x-ray, and clinical exam shows no elevation in neck veins, rales, or pitting edema. This could be coronary ischemia anginal equivalent . would recommend stress (lexiscan given abnormal baseline ekg) and echo to assess LV function.
--- NOTE | 2025-07-08 16:30 | SWNOTE1 ---
Medicare Outpatient Observation Notice reviewed and discussed with patient. Pt. verbalized understanding and signed the form. Original given to patient and copy placed in patient?s chart. Pt lives at home with his . Pt' son in room during conversation. Pt uses his canes at times when he is out and about. Pt does not have any services coming in to the home at this time. Pt denies any discharge needs at this time.
[2025-07-08] MEDS: ESCITALOPRAM 10 MG TABLET PO (20:43)
[2025-07-08] MEDS: SPIRONOLACTONE 25 MG TABLET 12.5 MG PO (21:17)
[2025-07-08] MEDS: ATORVASTATIN CALCIUM 40 MG TABLET 80 MG PO (21:17)
[2025-07-09] VITALS (9 sets, daily range): BP systolic 117–131; BP diastolic 64–68; PULSE 54–69; TEMP 36.5–36.6; O2SAT 95–97
[2025-07-09] MEDS: LEVOTHYROXINE SODIUM 75 MCG TABLET PO (05:11)
[2025-07-09] MEDS: INSULIN ASPART 300 UNIT/3 ML PEN SUBQ (08:18)
[2025-07-09] MEDS: LISINOPRIL 5 MG TABLET PO (08:19)
[2025-07-09] MEDS: CARVEDILOL 6.25 MG TABLET PO (08:19)
[2025-07-09] MEDS: PANTOPRAZOLE SODIUM 40 MG TABLET.DR PO (08:19)
[2025-07-09] MEDS: APIXABAN 5 MG TABLET PO (08:19)
[2025-07-09] MEDS: BUPROPION HCL 150 MG XL TABLET 24H PO (08:19)
--- NOTE | 2025-07-09 08:20 | CM.NOTE ---
Rounds made with Dr. Zuniga, pt will discharge today with outpatient stress test scheduled for Saturday. 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
--- NOTE | 2025-07-09 09:54 | CM.NOTE ---
Called Cardiology clinic and spoke with Meghana, Meghana states Dr. Arora is aware of pt discharging for outpatient stress test to be done on Saturday and is in agreement with plan. CM called centralized scheduling and pt is scheduled for 6:45 check in at front desk supervisor test will start at 7:00am. CM will put information on pt's discharge. Pt will have 1 day protocol for Lexiscan.
--- NOTE | 2025-07-09 10:03 | PM.DS1 ---
DS: Providers Provider Date of admission: 07/07/25 17:38 Primary care physician: Haritha Argueta MD Consults: 07/08/25 Consult to Cardiology Routine Reason for consultation: exertional dyspnea, probable angina DS: Diagnosis Discharge Diagnosis (1) Exertional dyspnea: (2) Paroxysmal A-fib: (3) Diabetes: (4) Hypertension: Qualifiers: Hypertension type: primary hypertension Qualified Code(s): I10 - Essential (primary) hypertension (5) Hypothyroid: Qualifiers: Hypothyroidism type: other Qualified Code(s): E03.8 - Other specified hypothyroidism (6) Hyperlipidemia: Qualifiers: Hyperlipidemia type: other hyperlipidemia Qualified Code(s): E78.49 - Other hyperlipidemia Plan As listed above, below and others that are not listed DS: Summary Hospital Course Hospital Course: Mr. Liang is a 74-year-old male who came in with a complaint of dyspnea sensation on exertion that has been going on for several weeks according to him but for several months according to his . Exertional dyspnea for the last few weeks. is telling me that patient had from her. He has been having it since April. Workup thus far is negative. Serial troponins are negative. EKG does not show ST elevation or depression. CTA of the chest is negative for PE, pneumonia, pneumothorax or edema. O2 saturation is 97% on room air Patient smoked for 35 years in the past. He quit 35 years ago. Never been diagnosed having COPD or emphysema I suspect that his exertional dyspnea could be related to exertional angina. May need to have a stress test. Could be related to valvular disease such as aortic stenosis Echocardiogram is ordered. Preliminary report stating that the patient has good EF Patient was seen by web marketing manager who recommended an outpatient stress test on Saturday. We will make sure that the patient is cleared by cardiology before discharge I recommended and offered patient to stay in the hospital until Saturday. I informed him and his about the potential risk including heart attack and even . Patient does not want to stay in the hospital. He wants to go home and come back on Saturday. Patient and his promised that he would not do any form of exertion between now and Saturday. Patient and his promised me to call 911 if he develops any chest pain or discomfort. Once again, after explaining potential risk, patient elected not to stay here until Saturday but to go home and come back for an outpatient stress test as recommended by cardiology Patient is already on statin, beta-areglia, DEREK inhibitor, MRA. I would add nitroglycerin sublingual as needed. For extra cardiovascular protection I would add aspirin 81 mg daily I would also add Imdur 30 mg daily to be discontinued if his stress test is negative. I would add nitroglycerin sublingual as needed. If stress test is negative I would recommend referral to see pulmonary. He may need to have PFT given his history of smoking for 35 years. Furthermore, patient may be a candidate to undergo yearly low-dose radiation CAT scan of the chest to screen for lung cancer to be arranged by PCP given his previous history of smoking for 35 years Paroxysmal A-fib Currently patient is in sinus rhythm Continue Eliquis and beta-argelia Diabetes Holding metformin for 48 hours after contrasted CTA completed yesterday in the emergency room department Sliding scale coverage Hypothyroidism Continue Synthroid Slight elevation of the bilirubin Unknown etiology. Patient does not have any tenderness in the right upper quadrant. Patient has had elevation of bilirubin before in May and December 2023 Unknown etiology, broad differential diagnosis including but not limited to cholestasis, neoplastic, autoimmune, infiltrative liver disease. This will need to be investigated further. Could be investigated further in the outpatient setting by PCP and/or with collaboration with hepatology Chronic medical conditions not listed above, incidental findings seen on labs and imaging. These would need to be addressed. Could be addressed when time and condition are appropriate. Could be addressed in the outpatient setting by PCP collaboration with other needed outpatient providers. I discussed this case with his at the bedside yesterday and today. I provided her information about his disease, prognosis, expectation and trajectory. Answered all of her questions. is comfortable with patient going home and coming back on Saturday. She stated that she would not allow him to do any form of physical exertion. She promised to call 911 if the patient develops any chest discomfort. Patient has multiple complex medical issues as listed above and others that are not listed. All appear to be stable. I do not have any clear or strong clinical justification to extend inpatient hospitalization against his will and desire to be discharged home and come back on Saturday. Patient however will require close and frequent monitoring as well as additional work-up, investigation and therapeutic intervention that could take place from this point on post discharge. That is to prevent relapse, decompensation, rehospitalization and other medical implications. I instructed patient to ask her primary care doctor to obtain [facility] record entirely to address abnormalities seen on labs and imaging that I have and have not addressed during this hospitalization, follow-up on pending blood work, imaging and pathology is if available and to follow-up on needed medical care in the outpatient setting. Time Spent with Patient Time attestation: Total time spent providing and/or coordinating discharge services: Exam Narrative Exam Narrative: [pt is awake and alert. oriented to place, time and person HEENT: [place] conjunctiva and NL buccal mucosa Neck: Supple, no tenderness Endocrine: No Thyromegaly. Vascular: No JVD or carotid bruit. Lymphatic: No cervical lymphadenopathy. Chest: CTA no DTP. Heart RRR, no extra sound or murmur. Abd: Soft, no tenderness, no rebound and no rigidity. Increase abd girth therefore clinically I could not exclude the possibility of intra abd mass or organomegaly. LE: No cyanosis or clubbing, no varices or edema. Neuro: A A O. Nl speech, comprehension and attention. Nl and symetrical motor and tone examination through out. []] Constitutional Vital Signs, click to edit/add: Last Vital Signs Temp 97.8 F 07/09/25 07:40 Pulse 54 L 07/09/25 08:00 Resp 16 07/09/25 07:40 BP 117/64 07/09/25 07:40 Pulse Ox 97 07/09/25 07:40 O2 Del Method Room Air 07/09/25 07:40 DS: Data Data Completed and Pending Labs on day of discharge: Labs from last 24 hours 07/09/25 07/08/25 07/08/25 07:45 20:43 16:14 POC Glucose 169 H 281 H 263 H 07/08/25 11:37 POC Glucose 241 H Discharge Plan Discharge Disposition: Home, Self-Care Condition: Good Discharge Medications: New aspirin 81 mg tablet 81 mg PO DAILY Qty: 60 2RF isosorbide mononitrate 30 mg tablet extended release 24 hr 30 mg PO DAILY Qty: 30 2RF nitroglycerin 0.4 mg tablet, sublingual 0.4 mg sublingual Q5M PRN (Reason: chest pain) Qty: 30 1RF Rx Instructions: do not exceed 3 doses per episode Continued Eliquis 5 mg tablet 5 mg PO Q12H bupropion HCl 150 mg tablet extended release 24 hr 150 mg PO DAILY cabergoline 0.5 mg tablet 0.5 mg PO .every other day carvedilol 6.25 mg tablet 6.25 mg PO Q12H dapagliflozin propanediol [Farxiga] 10 mg tablet 10 mg PO DAILY escitalopram oxalate 10 mg tablet 10 mg PO DAILY esomeprazole magnesium 40 mg capsule,delayed release(DR/EC) 40 mg PO DAILY furosemide 40 mg tablet 40 mg PO DAILY PRN (Reason: edema) levothyroxine [Synthroid] 75 mcg tablet 75 mcg PO DAILY lisinopril 5 mg tablet 5 mg PO DAILY metformin 500 mg tablet 500 mg PO DAILY spironolactone 25 mg tablet 12.5 mg PO DAILY insulin glargine [Lantus Solostar U-100 Insulin] 100 unit/mL (3 mL) insulin pen 35 unit SUBCUT DAILY rosuvastatin [Crestor] 40 mg tablet 40 mg PO DAILY Print Language: Mozambican Activity Restrictions/Additional Instructions: I may not have addressed or treated all of your medical illnesses or the abnormal blood work or imaging studies during this hospitalization. Please ask your primary care provider to obtain [facility] records entirely to follow up on all of the abnormal physical, laboratory, and imaging findings that I have not addressed. Please return back to the emergency room or seek medical attention if your symptoms worsen or return. Please call 911 if you develop any chest pain or discomfort. Check your blood sugar 3 times a day before meals. Document these numbers on a blood glucose log and bring them with you to your follow-up appointment with your primary care doctor. Communicate with your primary care doctor or investigation specialist if your blood sugar is under 100 or above 300 on 2 consecutive checks. Communicate with your primary care doctor or investigation specialist if you have any questions about your diabetes medications. Signs of a low blood sugar include sweating, racing heart, dizziness and/or weakness. Check your blood sugar if you have any of the symptoms. Discharging you from [facility] does not mean that your medical care ends here and now. You may still need additional monitoring, work up, investigation, and treatment plan to be handled from this point on by out patient providers including your primary care provider and specialists. For any medication question, please contact your retail pharmacist or your primary care provider. Thank you. Microbiology Lab Technician/Edge Grinder Instructions: Stress test 8/2 6:45 check in at front window cashier [facility], test scheduled for 7AM. Pt will need to fast 12 hours prior to test. No caffeine and No chocolate after midnight. Testing should be complete around 10am Forms: Portal Instructions Referrals: Warren Henderson MD [Physician, Cardiology] Haritha Argueta MD [Primary Care Provider, Family Practice] Follow Up Appointments: [facility] cardiology @ [facility] phone [phone] ext [phone] Jul @1:40 Dr Argueta Jul@ 10:30 phone [phone]
--- NOTE | 2025-07-14 13:24 | CM.DCFOLLOWU ---
Person spoke with:pt's How are you feeling?well, no change in behaviors, he has been sleeping a lot which is his normal How is your pain?none Did you understand your discharge instructions?yes Do you have any questions about your discharge instructions?no Were you given any prescriptions at discharge?yes Were you able to get your prescriptions filled?yes Do you understand how to take your medications as ordered?yes Do you have any questions about your follow up appointment and do you plan to keep your follow up appointment? no questions, follow ups reviewed. Had stress test Is there anything else that you would like to discuss? no Questions/Comments/Concerns/Other:none
== END 2025-07-09 12:25 | disposition home or self-care (01) ==
LOC: ER 16:57 → MS 17:41
PROVIDERS: Admitting Provider Internal Medicine; Emergency Provider Student in an Organized Health Care Education/Training Program; PCP Family Medicine; Visit Provider Internal Medicine
DX: R06.09 Other forms of dyspnea (principal); E11.9 Type 2 diabetes mellitus without complications; E78.5 Hyperlipidemia, unspecified; E03.9 Hypothyroidism, unspecified; Z79.01 Long term (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 anticoagulants; Z90.89 Acquired absence of other organs; Z79.84 Long term (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 oral hypoglycemic drugs; Z79.4 Long term (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 insulin; I48.0 Paroxysmal atrial fibrillation; Z87.891 Personal history of nicotine dependence; E80.6 Other disorders of bilirubin metabolism; R42 Dizziness and giddiness; I10 Essential (primary) hypertension
CPT/HCPCS: 36415; 71046; 71275; 80048; 80053; 82948; 83735; 83880; 84484; 85025; 85027; 93005; 93306; 99285; G0378; Q9967

== ENCOUNTER 2025-07-13 06:42 | Outpatient (OUT) | payer MEDICARE, SELFPAY ==
--- OUTSIDE RECORDS SUMMARY | 2024-09-05 17:30 | XMS_ITS ---
Author Organization [place] [facility] Address [address] [place] [id number] Care Team Providers Care [facility] Nurse Practitioner Name Role Phone Cabrera Calderón Unavailable [phone] . Unavailable Unavailabl e Migration, Provider Unavailable Un[facility] Conversion Encounter Medications Medication SIG (Take, Route, Frequency, Duration) Notes Start Date End Date Status NexIUM 20 MG Capsule Delayed Release 1 cap(s) orally once a day Active metFORMIN HCl 1000 MG Tablet 1 tab(s) orally 2 times a day Active ANDROGEL *Please review f or potential replacement for e-prescription and drug interaction check* Active Cabergoline 0.5 MG Tablet 1 tab(s) orally 2 times a week Active Simvastatin 20 MG Tablet 1 tab(s) orally once a day (at bedtime) Active Wellbutrin XL 150 MG Tablet Extended Release 24 Hour 1 tab(s) orally every 24 hours Active Encounters Encounter Location Date Provider Diagnosis [facility] [address] [id number] 09/05/2024 Provider Migration Plan Of Treatment No Information Progress Notes * Gadiel LIANGDOB: (74 yo M)Acc No.[id number]:09/05/2024 Patient: Barber Eatonnis Provider: Thuan mares Migration :1950 A ge:74 Y S ex:Male Date:09/05/2024 Address:[address] [place] [address], [place] [id number] Subjective: * Chief Complaints: * [facility] * Medications: T akingWellbutrin XL 150 MG Tablet Extended Release 24 Hour 1 tab(s) orally every 24 hours Simvastatin 20 MG Tablet 1 tab(s) orally once a day (at bedtime) Cabergoline 0.5 MG Tablet 1 tab(s) orally 2 times a week ANDROGEL , Notes to Pharmacist: *Please review for potential replacement for e-prescription and drug interaction check*metFORMIN HCl 1000 MG Tablet 1 tab(s) orally 2 times a day NexIUM 20 MG Capsule Delayed Release 1 cap(s) orally once a day Taking Wellbutrin XL 150 MG Tablet Extended Release 24 Hour 1 tab(s) orally every 24 hours Taking Simvastatin 20 MG Tablet 1 tab(s) orally once a day (at bedtime) Taking Cabergoline 0.5 MG Tablet 1 tab(s) orally 2 times a week Taking ANDROGEL , Notes to Pharmacist: *Please review for potential replacement for e-prescription and drug interaction check*Taking metFORMIN HCl 1000 MG Tablet 1 tab(s) orally 2 times a day Taking NexIUM 20 MG Capsule Delayed Release 1 cap(s) orally once a day * Electronic signature of Prov ider Migration on 07/13/2025 at 03:44 AM [facility] Sign off status: Pending * Provider: Thuan mares Migration Date: Generated for Westley correa/Violet/Mike on: 0 07/13/2025 03:44 AM [facility]
--- OUTSIDE RECORDS SUMMARY | 2025-07-13 06:44 | XMS_ITS | Encounter Summary ---
Author Organization [facility] Address [facility] [place] [address] Care Team Providers Care Construction Teacher Name Role Phone Carlos Andersen DO Primary Care Provider Mandie Osborne MD Unavailable [phone] Cabrera Dupont MD Primary Care Provider [phone] Source Comments In the event this information is protected by the Federal Confidentiality of Alcohol and Drug AbusePatient Records regulations: The Federal rules restrict any use of the information to criminally investigate or prosecute any alcohol or drug abuse patient.[facility] Encounter Details Date Type Department Care Team (Late st Contact Info) Description 09/02/2015 Patient Msg Medical Records [address] [place] [id number] Provider, Ccf Social History Tobacco Use Types [...] on filedocumented in this encounter Care Teams Construction Teacher Relationship Specialty Start Date End Date Carlos Andersen DO PCP - General Family Medicine 05/13/14 01/20/19 Cabrera Dupont MD PCP - General Family Medicine 01/21/19 Mandie Osborne MD Primary Staff Physician Cardiology 02/09/15 6 documented as of this encounter
--- OUTSIDE RECORDS SUMMARY | 2025-07-13 06:44 | XMS_ITS | Encounter Summary ---
Author Organization [facility] Address [address] [place] [address] Care Team Providers Care Mechanical Drafter Name Role Phone Cabrera Dupont MD Primary Care Provider [phone] Source Comments In the event this information is protected by the Federal Confidentiality of Alcohol and Drug AbusePatient Records regulations: The Federal rules restrict any use of the information to criminally investigate or prosecute any alcohol or drug abuse patient.[facility] Encounter Details Date Type Department Care Team (Late st Contact Info) Description 10/01/2019 Get Medical Advice Endocrinology [address] [place] [address] Mandie Osborne MD [address] [facility] [address] [address] Medication Question (Not Renewal) Social [...] on filedocumented in this encounter Care Teams Mechanical Drafter Relationship Specialty Start Date End Date Cabrera Dupont MD PCP - General Family Medicine 01/21/19 documented as of this encounter
--- OUTSIDE RECORDS SUMMARY | 2025-07-13 06:44 | XMS_ITS | Encounter Summary ---
Author Organization [facility] Address [facility] [place] [address] Care Team Providers Care Cone Trucker Name Role Phone Carlos Andersen DO Primary Care Provider Mandie Osborne MD Unavailable [phone] Cabrera Dupont MD Primary Care Provider [phone] Source Comments In the event this information is protected by the Federal Confidentiality of Alcohol and Drug AbusePatient Records regulations: The Federal rules restrict any use of the information to criminally investigate or prosecute any alcohol or drug abuse patient.[facility] Encounter Details Date Type Department Care Team (Late st Contact Info) Description 09/03/2014 Patient Msg Medical Records [address] [place] [address] Provider, Ccf Social History Tobacco Use Types [...] on filedocumented in this encounter Care Teams Cone Trucker Relationship Specialty Start Date End Date Carlos Andersen DO PCP - General Family Medicine 05/13/14 01/20/19 Cabrera Dupont MD PCP - General Family Medicine 01/21/19 Mandie Osborne MD Primary Staff Physician Cardiology 02/09/15 6 documented as of this encounter
--- OUTSIDE RECORDS SUMMARY | 2025-07-13 06:44 | XMS_ITS | Encounter Summary ---
Author Organization [facility] Address [address] [place] [address] Care Team Providers Care Healthcare Risk Control Consultant Name Role Phone GaneshCralos DO Primary Care Provider Mandie Osborne MD Unavailable [phone] Cabrera Dupont MD Primary Care Provider [phone] Source Comments In the event this information is protected by the Federal Confidentiality of Alcohol and Drug AbusePatient Records regulations: The Federal rules restrict any use of the information to criminally investigate or prosecute any alcohol or drug abuse patient.[facility] Encounter Details Date Type Department Care Team (Late st Contact Info) Description 02/25/2015 Get Medical Advice Endocrinology [address] [place] [address] Mandie Osborne MD 0799 [facility] [address] [address] RE: Test Result Question Social [...] 1:39 PM EDT Caio, Va jesenia L (Roundhouse Worker), STREET SWEEPER OPERATOR * Are you blind or do you have serious difficulty seeing, even when wearing glasses? Answer Date of Assessment Author No 02/23/2015 1:39 PM EDT Caio, Va jesenia L (Roundhouse Worker), STREET SWEEPER OPERATOR * Do you have serious difficulty walking or climbing stairs? Answer Date of Assessment Author No 02/23/2015 1:39 PM EDT Caio, Va jesenia L (Roundhouse Worker), STREET SWEEPER OPERATOR * Do you have difficulty dressing or bathing? Answer Date of Assessment Author No 02/23/2015 1:39 PM EDT Caio, Va jesenia L (Roundhouse Worker), STREET SWEEPER OPERATOR * Because of a physical, mental, or emotional condition, do you have difficulty doing errands alone such as visiting a doctor's office or shopping? Answer Date of Assessment Author No 02/23/2015 1:39 PM EDT Caio, Va jesenia L (Roundhouse Worker), STREET SWEEPER OPERATOR documented as of this encounter Mental Status * Because of a physical, mental, or emotional condition, do you have serious difficulty concentrating, remembering, or making decisions? Answer Entry Date Author No 02/23/2015 1:39 PM EDT Caio Va jesenia L (Roundhouse Worker), STREET SWEEPER OPERATOR documented in this encounter Plan of Treatment Not on file documented as of this encounter Visit Diagnoses Not on filedocumented in this encounter Care Teams Healthcare Risk Control Consultant Relationship Specialty Start Date End Date Carlos Andersen DO PCP - General Family Medicine 05/13/14 01/20/19 Cabrera Dupont MD PCP - General Family Medicine 01/21/19 Mandie Osborne MD Primary Staff Physician Cardiology 02/09/15 6 documented as of this encounter
--- OUTSIDE RECORDS SUMMARY | 2025-07-13 06:44 | XMS_ITS | Clinical Summary ---
Author Organization [facility] Address [id number] [address] [place] [address] Care Team Providers Care Breeding Manager Name Role Phone Haritha Argueta MD Primary Care Provider [phone] Allergies No known active allergies Medications apixaban [...] on file Insurance [employer] Care Teams Breeding Manager Relationship Specialty Start Date End Date Haritha Argueta MD [address] [place] [address] PCP - General Family Medicine 10/31/22
--- OUTSIDE RECORDS SUMMARY | 2025-07-13 06:44 | XMS_ITS | Encounter Summary ---
Author Organization [facility] Address [address] [place] [address] Care Team Providers Care Hired Help Name Role Phone GaneshCarlos DO Primary Care Provider Mandie Osborne MD Unavailable [phone] Cabrera Dupont MD Primary Care Provider [phone] Source Comments In the event this information is protected by the Federal Confidentiality of Alcohol and Drug AbusePatient Records regulations: The Federal rules restrict any use of the information to criminally investigate or prosecute any alcohol or drug abuse patient.[facility] Encounter Details Date Type Department Care Team (Late st Contact Info) Description 04/16/2015 Get Medical Advice Endocrinology [address] [place] [address] Mandie Osborne MD 1675 [facility] [address] [address] RE: Medication Question (Not Renewal) [...] 1:39 PM EDT Caio, Radha jesenia L (Math Tutor), SLITTER CREASER SLOTTER OPERATOR * Are you blind or do you have serious difficulty seeing, even when wearing glasses? Answer Date of Assessment Author No 02/23/2015 1:39 PM EDT Caio, Va jesenia L (Math Tutor), SLITTER CREASER SLOTTER OPERATOR * Do you have serious difficulty walking or climbing stairs? Answer Date of Assessment Author No 02/23/2015 1:39 PM EDT Caio, Va jesenia L (Math Tutor), SLITTER CREASER SLOTTER OPERATOR * Do you have difficulty dressing or bathing? Answer Date of Assessment Author No 02/23/2015 1:39 PM EDT Caio, Va jesenia L (Math Tutor), SLITTER CREASER SLOTTER OPERATOR * Because of a physical, mental, or emotional condition, do you have difficulty doing errands alone such as visiting a doctor's office or shopping? Answer Date of Assessment Author No 02/23/2015 1:39 PM EDT Caio, Va jesenia L (Math Tutor), SLITTER CREASER SLOTTER OPERATOR documented as of this encounter Mental Status * Because of a physical, mental, or emotional condition, do you have serious difficulty concentrating, remembering, or making decisions? Answer Entry Date Author No 02/23/2015 1:39 PM EDT Caio Radha jesenia L (Math Tutor), SLITTER CREASER SLOTTER OPERATOR documented in this encounter Miscellaneous Notes [...] on filedocumented in this encounter Care Teams Hired Help Relationship Specialty Start Date End Date Carlos Andersen DO PCP - General Family Medicine 05/13/14 01/20/19 Cabrera Dupont MD PCP - General Family Medicine 01/21/19 Mandie Osborne MD Primary Staff Physician Cardiology 02/09/15 6 documented as of this encounter
--- OUTSIDE RECORDS SUMMARY | 2025-07-13 06:44 | XMS_ITS | Encounter Summary ---
Author Organization [facility] Address [address] [place] [address] Care Team Providers Care Hydroelectric Plant Technician Name Role Phone Carlos Andersen DO Primary Care Provider Cabrera Dupont MD Primary Care Provider [phone] Source Comments In the event this information is protected by the Federal Confidentiality of Alcohol and Drug AbusePatient Records regulations: The Federal rules restrict any use of the information to criminally investigate or prosecute any alcohol or drug abuse patient.[facility] Encounter Details Date Type Department Care Team (Late st Contact Info) Description 09/03/2016 Patient Msg Medical Records [address] [place] [address] Provider, Ccf Social History Tobacco Use Types [...] of Assessment Author Yes 04/28/2015 11:27 AM Joleen Cruz Ma * Do you have serious [...] on filedocumented in this encounter Care Teams Hydroelectric Plant Technician Relationship Specialty Start Date End Date Carlos Andersen DO PCP - General Family Medicine 05/13/14 01/20/19 Cabrera Dupont MD PCP - General Family Medicine 01/21/19 documented as of this encounter
--- OUTSIDE RECORDS SUMMARY | 2025-07-13 06:44 | XMS_ITS | Encounter Summary ---
Author Organization [facility] Address [address] [place] [address] Care Team Providers Care Speeder Frame Tender Name Role Phone Carlos Andersen DO Primary Care Provider Cabrera Dupont MD Primary Care Provider [phone] Source Comments In the event this information is protected by the Federal Confidentiality of Alcohol and Drug AbusePatient Records regulations: The Federal rules restrict any use of the information to criminally investigate or prosecute any alcohol or drug abuse patient.[facility] Encounter Details Date Type Department Care Team (Late st Contact Info) Description 11/08/2016 Patient Msg Preventive Cardiology [address] [place] [address] Mandie Osborne MD [address] [address] Social History Tobacco Use Types [...] on filedocumented in this encounter Care Teams Speeder Frame Tender Relationship Specialty Start Date End Date Carlos Andersen DO PCP - General Family Medicine 05/13/14 01/20/19 Cabrera Dupont MD PCP - General Family Medicine 01/21/19 documented as of this encounter
--- OUTSIDE RECORDS SUMMARY | 2025-07-13 06:44 | XMS_ITS | Encounter Summary ---
Author Organization [facility] Address [facility] [place] [address] Care Team Providers Care Syruper Name Role Phone Carlos Andersen DO Primary Care Provider Mandie Osborne MD Unavailable [phone] Cabrera Dupont MD Primary Care Provider [phone] Source Comments In the event this information is protected by the Federal Confidentiality of Alcohol and Drug AbusePatient Records regulations: The Federal rules restrict any use of the information to criminally investigate or prosecute any alcohol or drug abuse patient.[facility] Encounter Details Date Type Department Care Team (Late st Contact Info) Description 09/02/2015 Patient Msg Medical Records [address] [place] [address] Provider, Ccf RE: Request an Appointment Social [...] on filedocumented in this encounter Care Teams Syruper Relationship Specialty Start Date End Date Carlos Andersen DO PCP - General Family Medicine 05/13/14 01/20/19 Cabrera Dupont MD PCP - General Family Medicine 01/21/19 Mandie Osborne MD Primary Staff Physician Cardiology 02/09/15 6 documented as of this encounter
--- OUTSIDE RECORDS SUMMARY | 2025-07-13 06:44 | XMS_ITS | Encounter Summary ---
Author Organization [facility] Address [facility] [place] [address] Care Team Providers Care Guide Changer Name Role Phone Feliz Mitchell Jr. Primary Care Provider Unava Carlos Bowman DO Primary Care Provider Mandie Osborne MD Unavailable [phone] Cabrera Dupont MD Primary Care Provider [phone] Source Comments In the event this information is protected by the Federal Confidentiality of Alcohol and Drug AbusePatient Records regulations: The Federal rules restrict any use of the information to criminally investigate or prosecute any alcohol or drug abuse patient.[facility] Encounter Details Date Type Department Care Team (Late st Contact Info) Description 03/26/2012 Patient Msg Medical Records [address] [place] [address] Provider, Ccf Social History Tobacco Use Types [...] on filedocumented in this encounter Care Teams Guide Changer Relationship Specialty Start Date End Date Feliz Mitchell Jr. PCP - General Family Medicine 03/25/12 05/12/14 Carlos Andersen DO PCP - General Family Medicine 05/13/14 01/20/19 Cabrera Dupont MD PCP - General Family Medicine 01/21/19 Mandie Osborne MD Primary Staff Physician Cardiology 02/09/15 6 documented as of this encounter
--- OUTSIDE RECORDS SUMMARY | 2025-07-13 06:44 | XMS_ITS | Encounter Summary ---
Author Organization [facility] Address [address] [place] [address] Care Team Providers Care Budget Officer Name Role Phone Carlos Andersen DO Primary Care Provider Cabrera Dupont MD Primary Care Provider [phone] Source Comments In the event this information is protected by the Federal Confidentiality of Alcohol and Drug AbusePatient Records regulations: The Federal rules restrict any use of the information to criminally investigate or prosecute any alcohol or drug abuse patient.[facility] Encounter Details Date Type Department Care Team (Late st Contact Info) Description 03/06/2017 Patient Msg Endocrinology [address] [place] [address] Mandie Osborne MD [address] [facility] [address] [address] RE: Request an Appointment Social [...] on filedocumented in this encounter Care Teams Budget Officer Relationship Specialty Start Date End Date Carlos Andersen DO PCP - General Family Medicine 05/13/14 01/20/19 Cabrera Dupont MD PCP - General Family Medicine 01/21/19 documented as of this encounter
--- OUTSIDE RECORDS SUMMARY | 2025-07-13 06:44 | XMS_ITS | Encounter Summary ---
Author Organization [facility] Address [facility] [place] [address] Care Team Providers Care Music Library Assistant Name Role Phone Feliz Mitchell Jr. Primary Care Provider Unava Carlos Bowman DO Primary Care Provider Mandie Osborne MD Unavailable [phone] Cabrera Dupont MD Primary Care Provider [phone] Source Comments In the event this information is protected by the Federal Confidentiality of Alcohol and Drug AbusePatient Records regulations: The Federal rules restrict any use of the information to criminally investigate or prosecute any alcohol or drug abuse patient.[facility] Encounter Details Date Type Department Care Team (Late st Contact Info) Description 07/03/2013 Patient Msg Medical Records [address] [place] [address] Provider, Ccf RE:(No subject) Social History Tobacco [...] on filedocumented in this encounter Care Teams Music Library Assistant Relationship Specialty Start Date End Date Feliz Mitchell Jr. PCP - General Family Medicine 03/25/12 05/12/14 Carlos Andersen DO PCP - General Family Medicine 05/13/14 01/20/19 Cabrera Dupont MD PCP - General Family Medicine 01/21/19 Mandie Osborne MD Primary Staff Physician Cardiology 02/09/15 6 documented as of this encounter
--- OUTSIDE RECORDS SUMMARY | 2025-07-13 06:44 | XMS_ITS | Encounter Summary ---
Author Organization [facility] Address [address] [place] [address] Phone Care Team Providers Care Superintendent Maintenance Airports Name Role Phone Cabrera Dupont MD Primary Care Provider [phone] Reason for Visit * Reason Comments Med Refill Encounter Details Date Type Department Care Team (Late st Contact Info) Description 07/12/[address] [address] [place] [address] [address] Department of Medicine-Endocrino logy [place] [id number] Hypopituitarism (Multi); Hypogonadism male; Hyperparathyroidism (Multi); Hyperprolactinemia (Multi); Type 2 diabetes mellitus without complication, with long-term current use of insulin Social History Tobacco Use Types Packs/Day Years [...] as of this encounter Visit Diagnoses Diagnosis Hypopituitarism (Multi) Panhypopituitarism Hypogonadism male Other testicular hypofunction Hyperparathyroidism (Multi) Hyperparathyroidism, unspecified Hyperprolactinemia (Multi) Other and unspecified anterior pituitary hyperfunction Type 2 diabetes mellitus without complication, with long-term current use of insulin documented in this encounter Care Teams Superintendent Maintenance Airports Relationship Specialty Start Date End Date Cabrera Dupont MD [address] [facility] [place] [address] PCP - General 11/30/20 documented as of this encounter
--- OUTSIDE RECORDS SUMMARY | 2025-07-13 06:44 | XMS_ITS | Encounter Summary ---
Author Organization [facility] Address [address] [place] [address] Care Team Providers Care Draw Furnace Tender Name Role Phone Carlos Andersen DO Primary Care Provider Cabrera Dupont MD Primary Care Provider [phone] Source Comments In the event this information is protected by the Federal Confidentiality of Alcohol and Drug AbusePatient Records regulations: The Federal rules restrict any use of the information to criminally investigate or prosecute any alcohol or drug abuse patient.[facility] Encounter Details Date Type Department Care Team (Late st Contact Info) Description 02/26/2017 Patient Msg Endocrinology [address] [place] [address] Mandie Osborne MD [address] [facility] [address] [address] Request an Appointment Social History [...] on filedocumented in this encounter Care Teams Draw Furnace Tender Relationship Specialty Start Date End Date Carlos Andersen DO PCP - General Family Medicine 05/13/14 01/20/19 Cabrera Dupont MD PCP - General Family Medicine 01/21/19 documented as of this encounter
--- OUTSIDE RECORDS SUMMARY | 2025-07-13 06:44 | XMS_ITS | Encounter Summary ---
Author Organization [facility] Address [address] [place] [address] Care Team Providers Care Hair Spring Winder Name Role Phone Cabrera Dupont MD Primary Care Provider [phone] Source Comments In the event this information is protected by the Federal Confidentiality of Alcohol and Drug AbusePatient Records regulations: The Federal rules restrict any use of the information to criminally investigate or prosecute any alcohol or drug abuse patient.[facility] Encounter Details Date Type Department Care Team (Late st Contact Info) Description 10/01/2019 Get Medical Advice Endocrinology [address] [place] [address] Mandie Osborne MD [address] [facility] [address] [address] RE: Medication Question (Not Renewal) [...] on filedocumented in this encounter Care Teams Hair Spring Winder Relationship Specialty Start Date End Date Cabrera Dupont MD PCP - General Family Medicine 01/21/19 documented as of this encounter
--- OUTSIDE RECORDS SUMMARY | 2025-07-13 06:44 | XMS_ITS | Encounter Summary ---
Author Organization [facility] Address [address] [place] [address] Care Team Providers Care Carpenter Cradle And Dolly Name Role Phone Cabrera Dupont MD Primary Care Provider [phone] Source Comments In the event this information is protected by the Federal Confidentiality of Alcohol and Drug AbusePatient Records regulations: The Federal rules restrict any use of the information to criminally investigate or prosecute any alcohol or drug abuse patient.[facility] Encounter Details Date Type Department Care Team (Late st Contact Info) Description 01/22/2019 Patient Msg Endocrinology [address] [place] [address] Mandie Osborne MD [address] [facility] [address] [address] RE:(No subject) Social History Tobacco [...] on filedocumented in this encounter Care Teams Carpenter Cradle And Dolly Relationship Specialty Start Date End Date Cabrera Dupont MD PCP - General Family Medicine 01/21/19 documented as of this encounter
--- OUTSIDE RECORDS SUMMARY | 2025-07-13 06:44 | XMS_ITS | Clinical Summary ---
Author Organization [facility] Address [address] [place] [address] Care Team Providers Care Box Bender Name Role Phone Haritha Argueta MD Primary Care Provider [phone] Allergies Active Allergy Reactions Criticality Noted Date [...] cardiomyopathy 09/16/2024 Coronary artery disease invo lving [place] coronary artery of [place] heart without angina pectoris 09/16/2024 Diarrhea 09/16/2024 [...] DCCV on 10/24. Continue Eliquis and Carvedilol. [id number]- 7, D/W Dr Espinoza- EP and he [...] Plan (11/28/2022 3:48 PM EST): [facility] II-III Currently euvolemic, without excerbation. Continue GDMT- lipitor, coreg, farxiga, lasix, lisinopril and aldactone Check CMP today Monitor daily weights, I&O, fluid restriction 1.5-2L/day, renal function and electrolytes Vasovagal syncope 10/26/2022 History of transient ischemic attack (TIA) 10/26 CVA (cerebral vascular accident) 10/26/2022 Overview (10/26/2022): a2017 affecting left side Atrial fibrillation 10/18/2022 Overview (10/18/2022): Added automatically from request for surgery [id number] Assessment & Plan (04/01/2024 12:53 PM EDT): [id number]= 6 Continue eliquis anticoagulation. Continue coreg- rate is well controlled and pt remains in Sinus rhythm RTC [address] Espinoza Assessment & Plan (11/28/2022 3:50 PM EST): as above- s/p DCCV on 10/24. Continue Eliquis and Carvedilol. [id number]- 7, D/W Dr Espinoza- EP and he recommends pt to start amiodarone for antiarrythmic and plan for outpt cardioversion Persistent atrial fibrillation 10/16/2022 Assessment & Plan (10/16/2022 4:37 PM EST): -[id number] - 4 (age, hx cva, DM, htn) [...] Encounters Date Type Department Care Team Description 07/08/2025 Orders Only [address] [place] [id number] Tarah Figueroa MA DOE (dyspnea on exertion) (Primary Dx); Abnormal EKG 05/28/[address] [place] [id number] Janee Rayo CNP Acute on chronic systolic heart failure (CMS/HCC) (Primary Dx) 05/18/[address] [place] [address] Tarah Figueroa MA 04/25/2025 Results Follow-Up [facility] Cardiology [address] [place] [address] Abiel Hernandez MD Lipid panel, ALT, AST 04/20/2025 10:00 AM EDT Office Visit [address] [place] [address] Eliceo Espinoza MD Permanent atrial fibrillation (CMS/HCC) 04/15/2025 Orders Only [address] [place] [address] Abiel Hernandez MD from Last 3 Months [...] place to sleep or slept in a retirement (including now)? No 05/02/2023 Hunger Vital Sign [...] Description 07/16/2025 1:40 PM EDT Office Visit [facility] [address] [place] [address] Rc Starr, INSTRUCTOR FLYING [address] [place] [address] Health Maintenance Due Date Last Done Comments [...] Vaccine ( season) 2024 01/18/2021 Influenza Vaccine (#1) 2025 4, 10/12/2023, 08/15/2022, Additional history exists HIB Vaccines [...] EDT) Blood Venous blood specimen / Unknown us Abiel Hernandez MD LAB BLOOD ORDERABLES Final Resul t * AST (04/15/2025 12:14 PM EDT) Blood Venous blood specimen / Unknown us Abiel Hernandez MD LAB BLOOD ORDERABLES Final Resul t * Lipid panel (04/15/2025 12:14 PM EDT) Blood Venous blood specimen / Unknown Abiel Hernandez MD LAB BLOOD ORDERABLES Final Resul t from Last 3 Months Insurance [employer] MEDICARE ADVANTAGE [facility] [address] [id number] Advance Directives * Full Code (Latest Code Status on File) Date Activated Date Inactivated Comments 05/02/2023 5:35 PM 05/03/2023 3:13 PM * Full Code Date Activated Date Inactivated Comments 11/15/2022 3:14 PM 11/20/2022 8:07 PM Care Teams Box Bender Relationship Specialty Start Date End Date Haritha Argueta MD [address] [place], [place] [address]A PCP - General 10/16/22
--- OUTSIDE RECORDS SUMMARY | 2025-07-13 06:44 | XMS_ITS | Patient Health Record ---
Author Organization [facility] Address [address] [place] [id number] Care Team Providers Care Tumbling And Rolling Supervisor Name Role Phone Cabrera Calderón Unavailable [phone] . Unavailable Unavailabl [...] Status W/U Status Risk Notes Problem Onychocryptosis (178327021) Onychocryptosis (703.0) Active confirmed tibial border Problem Pain in limb (05613520) Pain in limb (729.5) Active confirmed Problem Type II diabetes mellitus without complication (106341610) Diabetes mellitus, type II, w/o complications, not stated as uncontrolled (250.00) Active confirmed Encounters Encounter Location Date Provider Diagnosis [facility] [address] [phone] 09/05/2024 Provider Migration Plan Of Treatment No Information Insurance Providers Payer Name Payer Address Payer Phone Subscriber Number Group Number Insured Name Patient Relationship to Insured Coverage Start Date Coverage End Date [employer] Benefits [address] [address] [place] [address] 1603 [id number] Gadiel Liang Self - patient is the insured Medical (General) History Medical History History ICD Code Diabetes Mellitus, type II, non-insulin requiring Hypercholestrolemia Surgical History Surgery Date(Month/Year) Appendectomy Tonsillectomy Shoulder Hospitalization History Reason Date(Month/Year) Related to above listed surgeries
--- OUTSIDE RECORDS SUMMARY | 2025-07-13 06:44 | XMS_ITS | Encounter Summary ---
Author Organization [facility] Address [address] [place] [address] Care Team Providers Care Supervisor Wire Rope Fabrication Name Role Phone Carlos Andersen DO Primary Care Provider Cabrera Dupont MD Primary Care Provider [phone] Source Comments In the event this information is protected by the Federal Confidentiality of Alcohol and Drug AbusePatient Records regulations: The Federal rules restrict any use of the information to criminally investigate or prosecute any alcohol or drug abuse patient.[facility] Encounter Details Date Type Department Care Team (Late st Contact Info) Description 10/23/2018 Patient Msg Endocrinology [address] [place] [id number] Provider, Ccf From Dr. Mandie Osborne's office [...] filedocumented in this encounter Care Teams Supervisor Wire Rope Fabrication Relationship Specialty Start Date End Date Carlos Andersen DO PCP - General Family Medicine 05/13/14 01/20/19 Cabrera Dupont MD PCP - General Family Medicine 01/21/19 documented as of this encounter
--- OUTSIDE RECORDS SUMMARY | 2025-07-13 06:44 | XMS_ITS | Encounter Summary ---
Author Organization [facility] Address [address] [place] [address] Care Team Providers Care Textile Finisher Name Role Phone GaneshCarlos DO Primary Care Provider Mandie Osborne MD Unavailable [phone] Cabrera Dupont MD Primary Care Provider [phone] Source Comments In the event this information is protected by the Federal Confidentiality of Alcohol and Drug AbusePatient Records regulations: The Federal rules restrict any use of the information to criminally investigate or prosecute any alcohol or drug abuse patient.[facility] Encounter Details Date Type Department Care Team (Late st Contact Info) Description 09/12/2014 Get Medical Advice Endocrinology [address] [place] [address] Mandie Osborne MD [address] [facility] [address] [address] RE: Non-Urgent Medical Question Social [...] on filedocumented in this encounter Care Teams Textile Finisher Relationship Specialty Start Date End Date Carlos Andersen DO PCP - General Family Medicine 05/13/14 01/20/19 Cabrera Dupont MD PCP - General Family Medicine 01/21/19 Mandie Osborne MD Primary Staff Physician Cardiology 02/09/15 6 documented as of this encounter
--- OUTSIDE RECORDS SUMMARY | 2025-07-13 06:44 | XMS_ITS | Encounter Summary ---
Author Organization [facility] Address [facility] [place] [address] Care Team Providers Care Lead Generation Representative Name Role Phone Carlos Andersen DO Primary Care Provider Mandie Osborne MD Unavailable [phone] Cabrera Dupont MD Primary Care Provider [phone] Source Comments In the event this information is protected by the Federal Confidentiality of Alcohol and Drug AbusePatient Records regulations: The Federal rules restrict any use of the information to criminally investigate or prosecute any alcohol or drug abuse patient.[facility] Encounter Details Date Type Department Care Team (Late st Contact Info) Description 03/03/2015 Patient Msg Medical Records [address] [place] [address] Provider, Ccf lab orders and appointment Social [...] 1:39 PM EDT Caio, Radha jesenia L (Senior Functional Analyst), COMMERCIAL ARTIST LETTERING * Are you blind or do you have serious difficulty seeing, even when wearing glasses? Answer Date of Assessment Author No 02/23/2015 1:39 PM EDT Caio, Va jesenia L (Senior Functional Analyst), COMMERCIAL ARTIST LETTERING * Do you have serious difficulty walking or climbing stairs? Answer Date of Assessment Author No 02/23/2015 1:39 PM EDT Caio, Va jesenia L (Senior Functional Analyst), COMMERCIAL ARTIST LETTERING * Do you have difficulty dressing or bathing? Answer Date of Assessment Author No 02/23/2015 1:39 PM EDT Caio, Radha jesenia L (Senior Functional Analyst), COMMERCIAL ARTIST LETTERING * Because of a physical, mental, or emotional condition, do you have difficulty doing errands alone such as visiting a doctor's office or shopping? Answer Date of Assessment Author No 02/23/2015 1:39 PM EDT Caio, Radha jesenia L (Senior Functional Analyst), COMMERCIAL ARTIST LETTERING documented as of this encounter Mental Status * Because of a physical, mental, or emotional condition, do you have serious difficulty concentrating, remembering, or making decisions? Answer Entry Date Author No 02/23/2015 1:39 PM EDT Caio, Radha jesenia L (Senior Functional Analyst), COMMERCIAL ARTIST LETTERING documented in this encounter Plan of Treatment Not on file documented as of this encounter Visit Diagnoses Not on filedocumented in this encounter Care Teams Lead Generation Representative Relationship Specialty Start Date End Date Carlos Andersen DO PCP - General Family Medicine 05/13/14 01/20/19 Cabrera Dupont MD PCP - General Family Medicine 01/21/19 Mandie Osborne MD Primary Staff Physician Cardiology 02/09/15 6 documented as of this encounter
--- OUTSIDE RECORDS SUMMARY | 2025-07-13 06:44 | XMS_ITS | Encounter Summary ---
Author Organization [facility] Address [address] [place] [address] Care Team Providers Care Cdl A Driver Name Role Phone Carlos Andersen DO Primary Care Provider Cabrera Dupont MD Primary Care Provider Source Comments In the event this information is protected by the Federal Confidentiality of Alcohol and Drug AbusePatient Records regulations: The Federal rules restrict any use of the information to criminally investigate or prosecute any alcohol or drug abuse patient.[facility] Encounter Details Date Type Department Care Team (Late st Contact Info) Description 09/14/2018 Get Medical Advice Endocrinology [address] [place] [address] Mandie Osborne MD [address] [facility] [address] [address] RE: Medication Question (Not Renewal) [...] uncontrolled documented in this encounter Care Teams Cdl A Driver Relationship Specialty Start Date End Date Carlos Andersen DO PCP - General Family Medicine 05/13/14 01/20/19 Cabrera Dupont MD PCP - General Family Medicine 01/21/19 documented as of this encounter
--- OUTSIDE RECORDS SUMMARY | 2025-07-13 06:44 | XMS_ITS | Encounter Summary ---
Author Organization [facility] Address [address] [place] [address] Care Team Providers Care Pressroom Foreman Name Role Phone Cabrera Dupont MD Primary Care Provider [phone] Source Comments In the event this information is protected by the Federal Confidentiality of Alcohol and Drug AbusePatient Records regulations: The Federal rules restrict any use of the information to criminally investigate or prosecute any alcohol or drug abuse patient.[facility] Encounter Details Date Type Department Care Team (Late st Contact Info) Description 10/01/2019 Get Medical Advice Endocrinology [address] [place] [address] Mandie Osborne MD [address] [facility] [address] [address] RE: Medication Question (Not [...] on filedocumented in this encounter Care Teams Pressroom Foreman Relationship Specialty Start Date End Date Cabrera Dupont MD PCP - General Family Medicine 01/21/19 documented as of this encounter
--- OUTSIDE RECORDS SUMMARY | 2025-07-13 06:44 | XMS_ITS | Clinical Summary ---
Author Organization [facility] Address [address] [place], [place] [address] Care Team Providers Care Concrete Mason Name Role Phone Cabrera Dupont MD Primary Care Provider [phone] Allergies Active Allergy Reactions Criticality Noted Date [...] Take by mouth once daily. Active Insulin [place], Disposable, (BD ULTRAFINE III MINI PEN) 31 [...] N ot on file 10/16/2020 Data from: https://www.neighborhoodatlas.medicine.[facility]/. Last address used for calculation Not [...] - 8.0 g/dL 01/21/2019 10:09 PM EDT [facility] Albumin 4.3 3.9 - 4.9 g/dL 01/21/2019 10:09 PM EDT [facility] Calcium 11.9(H) 8.5 - 10.2 mg/dL 01/21/2019 10:09 PM EDT [facility] Bilirubin, Total 0.4 0.2 - 1.3 mg/dL 01/21/2019 10:09 PM EDT [facility] Alkaline Phosphatase 61 38 - 113 U/L 01/21/2019 10:09 PM EDT [facility] AST 15 14 - 40 U/L 01/21/2019 10:09 PM EDT [facility] Glucose 82 74 - 99 mg/dL 01/21/2019 10:09 PM EDT [facility] Comment: The [place] Diabetes Association (ADA) provides guidance for cutoff [...] Standards of Medical Care in Diabetes 2016, [place] [employer] Association. Diabetes Care. 2016.39(Suppl 1). BUN 11 9 - 24 mg/dL 01/21/2019 10:09 PM [facility] Creatinine 0.97 0.73 - 1.22 mg/dL 01/21/2019 10:09 PM [facility] Sodium 148(H) 136 - 144 mmol/L 01/21/2019 10:09 PM [facility] Potassium 4.7 3.7 - 5.1 mmol/L 01/21/2019 10:09 PM [facility] Chloride 108(H) 97 - 105 mmol/L 01/21/2019 10:09 PM [facility] CO2 25 22 - 30 mmol/L 01/21/2019 10:09 PM [facility] Anion Gap 15 9 - 18 mmol/L 01/21/2019 10:09 PM [facility] ALT 16 10 - 54 U/L 01/21/2019 10:09 PM [facility] eGFR- >60 01/21/2019 10:09 PM [facility] eGFR-All Other Races >60 . 01/21/2019 10:09 PM [facility] Comment: eGFR (Estimated GFR) Units [...] LABORATORY Final Resul t Performing Organization Address [facility]/ZIP Co de Phone Number [facility] [address] [place] [address] [facility] [address] [place] [address] * (ABNORMAL) LIPID PANEL BASIC (08/24/2016 11:36 AM EDT) Triglyceride 209(H) 30 - 149 mg/dL 08/24/2016 2:08 PM EDT [facility] Cholesterol, Total 180 100 - 199 mg/dL 08/24/2016 2:08 PM EDT [facility] HDL Cholesterol 41(L) >45 mg/dL 6 2:08 PM EDT [facility] VLDL Cholesterol 42(H) 6 - 40 mg/dL 08/24/2016 2:08 PM EDT [facility] LDL Cholesterol, Calculated 97 60 - 129 mg/dL 08/24/2016 2:08 PM EDT [facility] Fasting Time 12 hrs 08/24/2016 11:36 AM EDT [facility] TC:HDL Ratio 4.39 1.00 - 5.00 08/24/2016 2:08 PM EDT [facility] LDL:HDL Ratio 2.37 0.50 - 3.55 08/24/2016 2:08 PM EDT [facility] Non HDL Cholesterol 139 90 - 159 mg/dL 08/24/2016 2:08 PM EDT [facility] Blood specimen (specimen) BLOOD SPECIMEN / Unknown 08/24/2016 11:36 AM EDT 08/24/2016 11:40 AM EDT us Mandie Osborne MD LABORATORY Final Resul t Performing Organization Address City/[facility]/ZIP Co de Phone Number [facility] [address] [place] [address] from Last 3 Months or Most Recently Relevant to Health Maintenance Insurance [facility] [address] [facility] MEDICARE ADVANTAGE PPO [facility] [address] GENERIC Care Teams Concrete Mason Relationship Specialty Start Date End Date Cabrera Dupont MD PCP - General Family Medicine 01/21/19
--- OUTSIDE RECORDS SUMMARY | 2025-07-13 06:44 | XMS_ITS | Encounter Summary ---
Author Organization [facility] Address [address] [place] [address] Care Team Providers Care Embroidery Supervisor Name Role Phone Carlos Andersen DO Primary Care Provider Cabrera Dupont MD Primary Care Provider [phone] Source Comments In the event this information is protected by the Federal Confidentiality of Alcohol and Drug AbusePatient Records regulations: The Federal rules restrict any use of the information to criminally investigate or prosecute any alcohol or drug abuse patient.[facility] Encounter Details Date Type Department Care Team (Late st Contact Info) Description 02/04/2017 Patient Msg Endocrinology [address] [place] [address] Mandie Osborne MD [address] [facility] [address] [address] RE: Request an Appointment Social [...] on filedocumented in this encounter Care Teams Embroidery Supervisor Relationship Specialty Start Date End Date Carlos Andersen DO PCP - General Family Medicine 05/13/14 01/20/19 Cabrera Dupont MD PCP - General Family Medicine 01/21/19 documented as of this encounter
--- OUTSIDE RECORDS SUMMARY | 2025-07-13 06:44 | XMS_ITS | Encounter Summary ---
Author Organization [facility] Address [facility] [place] [address] Care Team Providers Care Embedded Developer Name Role Phone Carlos Andersen DO Primary Care Provider Mandie Osborne MD Unavailable Cabrera Dupont MD Primary Care Provider [phone] Source Comments In the event this information is protected by the Federal Confidentiality of Alcohol and Drug AbusePatient Records regulations: The Federal rules restrict any use of the information to criminally investigate or prosecute any alcohol or drug abuse patient.[facility] Encounter Details Date Type Department Care Team (Late st Contact Info) Description 05/27/2014 Patient Msg Medical Records [address] [place] [address] Provider, Ccf Social History Tobacco Use Types [...] on filedocumented in this encounter Care Teams Embedded Developer Relationship Specialty Start Date End Date Carlos Andersen DO PCP - General Family Medicine 05/13/14 01/20/19 Cabrera Dupont MD PCP - General Family Medicine 01/21/19 Mandie Osborne MD Primary Staff Physician Cardiology 02/09/15 6 documented as of this encounter
--- OUTSIDE RECORDS SUMMARY | 2025-07-13 06:44 | XMS_ITS | Encounter Summary ---
Author Organization [facility] Address [address] [place] [address] Care Team Providers Care Application Support Lead Name Role Phone Haritha Argueta MD Primary Care Provider [phone] Reason for Visit * Reason Comments Med Refill Encounter Details Date Type Department Care Team ([facility] st Contact Info) Description 06/04/2023 Refill [facility] Heart at [facility] [address] [place] [address] Caryn Gillette PA-C [address] [place] [address] Acute on chronic systolic heart failure (CMS/[facility]) Social History Tobacco Use Types Packs/Day [...] and heating? Not hard at all 05/02/2023 [place] Safety & Environment Answer Date Rec orded [...] place to sleep or slept in a correction (including now)? No 05/02/2023 Hunger Vital Sign [...] Upcoming Encounters Date Type Department Care Team ([facility] st Contact Info) Description 07/16/2025 1:40 PM EDT Office Visit [facility] Heart at [facility] [address] [place] [address] Rc Starr, TRAFFIC ENUMERATOR [address] [place] [address] documented as of this encounter Visit Diagnoses Diagnosis Acute on chronic systolic heart failure (CMS/HCC) Acute on chronic systolic heart failure documented in this encounter Care Teams Application Support Lead Relationship Specialty Start Date End Date Haritha Argueta MD [address] [facility] #A PCP - General 10/16/22 documented as of this encounter
--- OUTSIDE RECORDS SUMMARY | 2025-07-13 06:44 | XMS_ITS | Encounter Summary ---
Author Organization [facility] Address [address] [place] [address] Care Team Providers Care Streetcar Starter Name Role Phone Carlos Andersen DO Primary Care Provider Cabrera Dupont MD Primary Care Provider [phone] Source Comments In the event this information is protected by the Federal Confidentiality of Alcohol and Drug AbusePatient Records regulations: The Federal rules restrict any use of the information to criminally investigate or prosecute any alcohol or drug abuse patient.[facility] Encounter Details Date Type Department Care Team (Late st Contact Info) Description 12/20/2017 Get Medical Advice Endocrinology [address] [place] [address] Mandie Osborne MD [address] [facility]yee Farmer [address] [address] RE: Medication Question (Not Renewal) [...] on filedocumented in this encounter Care Teams Streetcar Starter Relationship Specialty Start Date End Date Carlos Andersen DO PCP - General Family Medicine 05/13/14 01/20/19 Cabrera Dupont MD PCP - General Family Medicine 01/21/19 documented as of this encounter
--- OUTSIDE RECORDS SUMMARY | 2025-07-13 06:45 | XMS_ITS | Encounter Summary ---
Author Organization [facility] Address [address] [place] [address] Care Team Providers Care Field Service Manager Name Role Phone Haritha Argueta MD Primary Care Provider [phone] Encounter Details Date Type Department Care Team (Late st Contact Info) Description 07/08/2025 Orders Only [facility] Heart at [facility] [address] [place] [address] Tarah Figueroa MA MANNING (dyspnea on exertion) (Primary Dx); Abnormal EKG Social History Tobacco Use Types Packs/Day Years [...] and heating? Not hard at all 05/02/2023 CT Safety & Environment Answer Date Rec orded [...] Description 07/16/2025 1:40 PM EDT Office Visit [facility] [address] [place] [address] Rc Starr, HAZMAT CDL A DRIVER [address] [place] [address] Scheduled Orders Name Type Priority Associated Diagnoses Orde r Schedule Lexiscan Stress Myocardial Perfusion Imaging Cardiac Services Routine MANNING (dyspnea on exertion) Abnormal EKG Expected: 07/08/2025 (Approximate), Expires: 07/08/2027 documented as of this encounter Visit Diagnoses Diagnosis MANNING (dyspnea on exertion)- Primary Other dyspnea and respiratory abnormality Abnormal EKG Nonspecific abnormal electrocardiogram (ECG) (EKG) documented in this encounter Care Teams Field Service Manager Relationship Specialty Start Date End Date Haritha Argueta MD [address] [facility] #A PCP - General 10/16/22 documented as of this encounter
--- OUTSIDE RECORDS SUMMARY | 2025-07-13 06:45 | XMS_ITS | Encounter Summary ---
Author Organization [facility] Address [address] [place] [address] Care Team Providers Care Technical Specialist Cytogenetics Name Role Phone Haritha Argueta MD Primary Care Provider [phone] Encounter Details Date Type Department Care Team (Late st Contact Info) Description 06/29/2025 Clinisync Result Encounter [facility] External Department Unsolicited Henrry Spivey MD [address] [place] [address] Social History Tobacco Use Types [...] EDT Narrative 06/29/2025 12:32 PM EDT The [address] [address] Ultrasound Report Signed Patient: GADIEL LIANG MR#: [id number] : 1950 Acct:[id number] Age/Sex: 74 / M ADM Date: 06/29/25 Loc: US Attending Dr: Henrry Spivey M.D. Ordering Physician: Henrry Spivey M.D. Date of Service: 06/29/25 Procedure(s): US thyroid Accession Number(s): [id number] cc: Haritha Argueta M.D.; Henrry Spivey M.D. The [place] [address] Patient Name: GADIEL LIANG MRN: [id number] date: 1950 Sex: M Assigned Patient Location: US Current Patient Location: US Accession/Order Number: [id number] Exam Date: 06/29/2025 12:27 Report Date: 06/29/2025 [...] Coello M.D. 06/29/2025 12:30 PM Dictation Location: [place] [address] Electronically authenticated by: [id number] Y Date: 06/29/2025 12:30 Dictated By: Rocky Coello D.O. Signed By: 06/29/25 1232 DD/ 1230 TD/TT: Auto Adjudication Specialist: Procedure Note Radiology, Radiologist, - 06/29/2025 [place] [address] Ultrasound Report Signed Patient: GADIEL LIANG EMR#: [id number] : 1950cct:[id number] Age/Sex: 74 / MADM Date: 06/29/25 Loc: US Attending Dr: Henrry Spivey M.D. Ordering Physician: Henrry Spivey M.D. Date of Service: 06/29/25 Procedure(s): US thyroid Accession Number(s): [id number] cc: Haritha Argueta M.D.; Henrry Spivey M.D. [facility] [address] [place] [address] Patient Name: GADIEL LIANG MRN: [id number] date: 1950 Sex: M Assigned Patient Location: US Current Patient Location: US Accession/Order Number: [id number] Exam Date: 06/29/2025 12:27 Report Date: 06/29/2025 [...] Coello M.D. 06/29/2025 12:30 PM Dictation Location: [place] [address] Electronically authenticated by: [id number] Y Date: 2:30 Dictated By: Rocky Coello D.O. Signed By:06/29/25 1232 DD/ 1230 TD/TT: Auto Adjudication Specialist: us Henrry Spivey MD IMG US PROCEDURES Final Resul t documented in this encounter Visit Diagnoses Not on filedocumented in this encounter Care Teams Technical Specialist Cytogenetics Relationship Specialty Start Date End Date Haritha Argueta MD PCP - General Family Medicine 03/23/24 06/29/25 documented as of this encounter
--- OUTSIDE RECORDS SUMMARY | 2025-07-13 06:45 | XMS_ITS | Encounter Summary ---
Author Organization [facility] Address [address] [place] [address] Phone Care Team Providers Care Manager Deli Name Role Phone Cabrera Dupont MD Primary Care Provider Encounter Details Date Type Department Care Team (Late st Contact Info) Description 06/27/2022 Orders Only [facility] [address] [place] [address] Conversion, Onbase Social History Tobacco Use Types [...] on filedocumented in this encounter Care Teams Manager Deli Relationship Specialty Start Date End Date Cabrera Dupont MD [address] [facility] [place] [address] PCP - General 11/30/20 documented as of this encounter
--- OUTSIDE RECORDS SUMMARY | 2025-07-13 06:45 | XMS_ITS | Clinical Summary ---
Author Organization [facility] Address [address] [place] [address] Care Team Providers Care Weight Reducing Technician Name Role Phone Haritha Argueta MD Primary Care Provider [phone] Allergies No known active allergies Medications Eliquis [...] 25.0-29.9) 12/29/2024 Coronary artery disease invo lving [place] coronary artery of [place] heart without angina pectoris 09/16/2024 Diabetes mellitus [...] DCCV on 10/24. Continue Eliquis and Carvedilol. [id number]- 7, D/W Dr Espinoza- EP and he recommends pt to start amiodarone for antiarrythmic and plan for outpt cardioversion PFO (patent foramen ovale) ([facility]) 11/28/2022 Overview (07/09/2024): Last Assessment & Plan: [...] (07/09/2024): Added automatically from request for surgery [id number] Last Assessment & Plan: [id number]= 6 Continue eliquis anticoagulation. Continue coreg- rate is well controlled and pt remains in Sinus rhythm RTC [address] Espinoza Persistent atrial fibrillation 10/16/2022 Overview (07/09/2024): Last Assessment & Plan: -[id number] - 4 (age, hx cva, DM, htn) [...] PM EDT Narrative 06/29/2025 12:32 [place] [address] Ultrasound Report Signed Patient: GADIEL LIANG MR#: [id number] : 1950 Acct:[id number] Age/Sex: 74 / M ADM Date: 06/29/25 Loc: US Attending Dr: Henrry Spivey M.D. Ordering Physician: Henrry Spivey M.D. Date of Service: 06/29/25 Procedure(s): US thyroid Accession Number(s): [id number] cc: Haritha Argueta M.D.; Henrry Spivey M.D. [address] [address] Patient Name: GADIEL LIANG MRN: [id number] date: 1950 Sex: M Assigned Patient Location: US Current Patient Location: US Accession/Order Number: [id number] Exam Date: 06/29/2025 12:27 Report Date: 06/29/2025 [...] Coello M.D. 06/29/2025 12:30 PM Dictation [facility] Electron[facility] authenticated by: [id number] Y Date: 06/29/2025 12:30 Dictated By: Rocky Coello D.O. Signed By: 06/29/25 1232 DD/ 1230 TD/TT: Clinical Research Technician: Procedure Note Radiology, Radiologist, MD - 06/29/2025 [place] [address] Ultrasound Report Signed Patient: GADIEL LIANG EMR#: [id number] : 1950cct:[id number] Age/Sex: 74 / MADM Date: 06/29/25 Loc: US Attending Dr: Henrry Spivey M.D. Ordering Physician: Henrry Spivey M.D. Date of Service: 06/29/25 Procedure(s): US thyroid Accession Number(s): [id number] cc: Haritha Argueta M.D.; Henrry Spivey M.D. The [place] [id number] Patient Name: GADIEL LIANG MRN: [id number] date: 1950 Sex: M Assigned Patient Location: US Current Patient Location: US Accession/Order Number: [id number] Exam Date: 06/29/2025 12:27 Report Date: 06/29/2025 [...] Coello M.D. 06/29/2025 12:30 PM Dictation Location: [place] [address] Electronically authenticated by: [id number] Y Date: 2:30 Dictated By: Rocky Coello D.O. Signed By:06/29/25 1232 DD/ 1230 TD/TT: Clinical Research Technician: us Henrry Spivey MD IMG US PROCEDURES Final Resul t from Last 3 Months Insurance [employer] MEDICARE ADVANTAGE Care Teams Weight Reducing Technician Relationship Specialty Start Date End Date Haritha Argueta MD [address] [place] [address] PCP - General Family Medicine 06/30/25
--- OUTSIDE RECORDS SUMMARY | 2025-07-13 06:45 | XMS_ITS | Encounter Summary ---
Author Organization [facility] Address [address] [place] [address] Phone Care Team Providers Care Commission Broker Name Role Phone Cabrera Dupont MD Primary Care Provider [phone] Encounter Details Date Type Department Care Team (Late st Contact Info) Description 07/04/2022 Orders Only [facility] [address] [place] [address] Conversion, Onbase Social History Tobacco Use Types [...] on filedocumented in this encounter Care Teams Commission Broker Relationship Specialty Start Date End Date Cabrera Dupont MD [address] [facility] [place] [address] PCP - General 11/30/20 documented as of this encounter
--- OUTSIDE RECORDS SUMMARY | 2025-07-13 06:45 | XMS_ITS | Encounter Summary ---
Author Organization [facility] Address [address] [place] [address] Care Team Providers Care Hand Former Helper Name Role Phone Haritha Argueta MD Primary Care Provider [phone] Reason for Visit * Reason Comments Med Refill Encounter Details Date Type Department Care Team (Late st Contact Info) Description 05/26/2023 Refill [facility] 6AB Ortho Surgery [address] [place] [address] Alta Schulz, ACCOUNT RESOLUTION EXPERT [address] [place] [address] Paroxysmal atrial fibrillation (CMS/HCC); S/P [...] and heating? Not hard at all 05/02/2023 PR Safety & Environment Answer Date Rec orded [...] place to sleep or slept in a nursing home (including now)? No 05/02/2023 Hunger Vital Sign [...] Description 07/16/2025 1:40 PM EDT Office Visit [facility] Heart at [facility] [address] [place] [address] Rc Starr, ACCOUNT RESOLUTION EXPERT [address] [place] [address] documented as of this encounter Visit Diagnoses Diagnosis Paroxysmal atrial fibrillation (CMS/HCC) Atrial fibrillation S/P ablation of atrial fibrillation Other postprocedural status documented in this encounter Care Teams Hand Former Helper Relationship Specialty Start Date End Date Haritha Argueta MD [address] [facility] #A PCP - General 10/16/22 documented as of this encounter
--- OUTSIDE RECORDS SUMMARY | 2025-07-13 06:45 | XMS_ITS | Encounter Summary ---
Author Organization [facility] Address [address] [place] [address] Care Team Providers Care Gas Leak Inspector Name Role Phone Cabrera Dupont MD Primary Care Provider [phone] Source Comments In the event this information is protected by the Federal Confidentiality of Alcohol and Drug AbusePatient Records regulations: The Federal rules restrict any use of the information to criminally investigate or prosecute any alcohol or drug abuse patient.[facility] Encounter Details Date Type Department Care Team (Late st Contact Info) Description 02/24/2019 Get Medical Advice Endocrinology [address] [place] [address] Mandie Osborne MD [address] [facility] [address] [address] RE: Medication Question (Not Renewal) [...] filedocumented in this encounter Care Teams Gas Leak Inspector Relationship Specialty Start Date End Date Cabrera Dupont MD PCP - General Family Medicine 01/21/19 documented as of this encounter
--- OUTSIDE RECORDS SUMMARY | 2025-07-13 06:45 | XMS_ITS | CCD ---
Author Organization [facility] Care Team Providers Care Program Writer Name Role Phone PHYSICIAN, DEFAULT Unavailable Unavailable PHYSICIAN, DEFAULT Unavailable Unavailable PHYSICIAN, DEFAULT Unavailable Unavailable PHYSICIAN, DEFAULT Unavailable Unavailable Cabrera Dupont Unavailable Cabrera Dupont MD Primary Care Provider [phone] Cabrera Dupont Primary Care [...] Unavailable Joseluis Quiroz MD Primary Care Provider [phone] Allergies Allergy Classification Reported Allergen(s) Allergy Type Date of Onset Reaction(s) Facility (2 sources) Lisinopril Drug Allergy 5 Other: See Comments [facility] Work Phone: (1 source) Lisinopril Propensity to adverse reactions 5 [facility] Work Phone: Medications Current Medications Medication Drug Class(es) Dates Sig (Normalized) Sig (Original) [id number] 200 actuat albuterol 0.09 mg/actuat metered dose [...] other day for 0 *Pick strength-form from Oobafit for eRX* Jul, Active Ocuvite TABS WYATT [...] Oral Once a day *Pick strength-form from Oobafit for eRX* Jul, Active Start: 07-23-2022 take 1 tablet by woody th twice daily buPROPion HCl ER (XL) 150MG buPROPion HCl ER (XL) 150MG, 1 (one) Tablet Tablet two times daily # 180, 07/23/2022, Ref. x1. Active Oral two times daily for 0 *Pick strength-form from Oobafit for eRX* Jul, Active Start: 04-13-2020 take [...] same time Active take 1 capsule by [facility] once daily esomeprazole 20 mg capsule [...] as directed for 30 *Pick strength-form from Oobafit for eRX* Jul, Active take 1 tablet by woody th once daily as needed Sildenafil Citrate 50 MG 1 tablet as needed Orally daily as directed for 30 days *Pick strength-form from Gurujian for eRX* Active spironolactone 25 mg oral [...] Entry Transdermal daily for 0 *Reorder from Oobafit for eRx and Interaction Alerts* Jul, Active [...] Coronary arteriosclerosis; Translations: [Atherosclerotic heart disease of [place] coronary artery without angina pectoris] Onset: 4 [...] aftercare (1 source) Other long term care social worker (current) drug therapy; Translations: [OTH PENITENTIARY CURRENT DRUG THERAPY] Onset: 11-13-2022 Episodic Other aftercare (1 source) USP (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 oral hypoglycemic drugs; Translations: [JAVA ENTERPRISE ARCHITECT USE ORAL HYPOGLYCEMIC DX] Onset: 11-13-2022 Episodic Other aftercare (1 source) USP (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 insulin; Translations: [PENITENTIARY CURRENT USE OF INSULIN] Onset: 11-13-2022 Episodic Other aftercare (1 source) rat exterminator (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 aspirin; Translations: [JAVA ENTERPRISE ARCHITECT CURRENT USE OF ASPIRIN] Onset: 10-17-2022 Episodic [...] Interpretation Reference Range Facility US Thyroid gl[place] [address] [address] Ultrasound Report Signed Patient: GADIEL LIANG MR#: [id number] : 1950 Acct:[id number] Age/Sex: 74 / M ADM Date: 06/29/25 Loc: US Attending Dr: Henrry Johnson M.D. Ordering Physician: Henrry Johnson M.D. Date of Service: 06/29/25 Procedure(s): US thyroid Accession Number(s): [id number] cc: Joseluis Quiroz M.D.; Henrry Johnson M.D. [address] [place] [address] Patient Name: GADIEL LIANG MRN: [facility]:[id number] date: 1950 Sex: M Assigned Patient Location: US Current Patient Location: US Accession/Order Number: [id number] Exam Date: 06/29/2025 12:27 Report Date: 06/29/2025 [...] Coello M.D. 06/29/2025 12:30 PM Dictation Location: [place] [address] Electronically authenticated by: [id number] Y Date: 06/29/2025 12:30 Dictated By: Rocky Coello D.O. 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 Ordering Physician: Henrry Johnson M.D. Date of Service: 06/29/25 Procedure(s): US thyroid Accession Number(s): [id number] cc: Joseluis Quiroz M.D.; Henrry Johnson M.D. [place] [address] Patient Name: GADIEL LIANG MRN: [id number]:[id number] date: 1950 Sex: M Assigned Patient Location: US Current Patient Location: US Accession/Order Number: [id number] Exam Date: 06/29/2025 12:27 Report Date: 06/29/2025 [...] Coello M.D. 06/29/2025 12:30 PM Dictation Location: [place] [address] Electronically authenticated by: [id number] Y Date: 06/29/2025 12:30 Dictated By: Rocky Coello D.O. 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 Radiology Study observation (narrative) [facility] US Thyroid glandOrdered By: Radiologist Radiology on 06-29-2025 [facility] Work Phone: [phone] 05-18-2025 36 Regarding lab result s from 04/15/2025: Milan Peña MD to Sc 04/25/25 5:45 PM Good lipids and AST ALT, continue current management and recheck in 6 months Lab orders to be done prior to Oct 2025 apt were mailed to patient. Normal [facility] Results Follow-Upon 04-25-20 Results Follow-Up [id number] Barber Liang eliseo E 1950 M Date Provider Department Center 04/25/2025 50583-YTQSEBMILAN PEÑA [facility] Family History Problem Relation Age of [...] Grandfather Paternal Grandmother Paternal Grandfather Other Normal [facility] Office Visiton 04-20-2025 Follow-up visit [id number] Barber Liang E 1950 M Date Provider Department Center 04/20/2025 TONA FORTE RO [facility] Family History Problem Relation Age of [...] Paternal Grandmother Paternal Grandfather Other Level of Service:[address] [place] OFFICE/OUTPATIENT ESTABLISHED LOW MDM 20 MIN Normal [facility] Cholesterol in LDL Calc [Mas s/Vol]on 04-15-2025 Cholesterol in LDL [Mass/Vol] 36.2 mg/dL [facility] Comment on above: <100 mg/dl [id number] 0-129 mg/dl NEAR OR ABOVE [id number] mg/dl BORDERLINE IBIN469-397 mg/dl HIGH>190 mg/dl VERY HIGH Cholesterol in VLDL Calc [Ma ss/Vol]on 04-15-2025 Cholesterol in VLDL [Mass/Vol] 15.8 mg/dL [facility] Laboratory - Chemistry and C hemistry - challengeon 04-15-2025 ALT [Catalytic activity/Vol] 22 U/L 16-63 [facility] AST [Catalytic activity/Vol] 13 U/L Low 15-37 [facility] Cholesterol [Mass/Vol] 109 mg/dL <=200 [facility] Cholesterol in HDL [Mass/Vol] 57 mg/dL 40-60 [facility] Comment on above: > or =60 mg/dl - LOW CARDIOVASCULAR RISK<40 mg/dl - HIGH CARDIOVASCULAR RISK Triglyceride [Mass/Vol] 79 mg/dL <=150 [facility] Orders Onlyon 04-15-2025 Orders Only [id number] Barber Liang 1950 M Date Provider Department Center 04/15/2025 97919-EMZIQGMILAN PEÑA RO [place] Family History Problem Relation [...] Grandfather Paternal Grandmother Paternal Grandfather Other Normal [facility] Serum or plasma total choles terol/high density lipoprotein (HDL) cholesterol mass [place] 04-15-2025 Cholesterol.total/C holesterol in HDL [Mass ratio] 1.9 {ratio} [facility] Comment on above: 3.3 - 4.4 LOW [...] call the office with any questions. Normal [facility] [place] [address] Ultrasound Report Signed Patient: GADIEL LIANG MR#: [id number] : 1950 Acct:[id number] Age/Sex: 74 / M ADM Date: 12/23/24 Loc: US Attending Dr: Henrry Johnson M.D. Ordering Physician: Henrry Johnson M.D. Date of Service: 12/23/24 Procedure(s): US thyroid Accession Number(s): [id number] cc: Joseluis Quiroz M.D.; Henrry Johnson M.D. [place] [address] Patient Name: GADIEL LIANG MRN: [id number]:[id number] date: 1950 Sex: M Assigned Patient Location: US Current Patient Location: US Accession/Order Number: [id number] Exam Date: 12/23/2024 12:20 Report Date: 12/23/2024 [...] Bilateral subcentimeter TR 4 nodules TI-RADS: [employer] TI-RADS committee's white paper recommendations for thyroid lesions classified as TR4 (moderately suspicious) are listed below: > 1.0 cm. Follow-up ultrasound in 1, 2, 3, and 5 years. > 1.5 cm. FNA. J. Am Dionicio Radiol 2017;14:587-595. Electronically authenticated by: GEORGIE VIERA Date: 12/23/2024 13:12 Dictated By: Georgie Viera M.D. 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 Ordering Physician: Henrry Johnson M.D. Date of Service: 12/23/24 Procedure(s): US thyroid Accession Number(s): [id number] cc: Joseluis Quiroz M.D.; Henrry Johnson M.D. [address] [place] [id number] Patient Name: GADIEL LIANG MRN: [facility]:[id number] date: 1950 Sex: M Assigned Patient Location: US Current Patient Location: US Accession/Order Number: [id number] Exam Date: 12/23/2024 12:20 Report Date: 12/23/2024 [...] Bilateral subcentimeter TR 4 nodules TI-RADS: The [employer] TI-RADS committee's white paper recommendations for thyroid lesions classified as TR4 (moderately suspicious) are listed below: > 1.0 cm. Follow-up ultrasound in 1, 2, 3, and 5 years. > 1.5 cm. FNA. J. Am Dionicio Radiol 2017;14:587-595. Electronically authenticated by: GEORGIE VIERA Date: 12/23/2024 13:12 Dictated By: Georgie Viera M.D. Signed By: 12/23/241314 DD/ 11 TD/TT: Underground [employer] Mach[employer] Mechanic: [facility] Radiology Study observation (narrative) [facility] US Thyroid glandOrdered By: Radiologist Radiology on 12-23-2024 [facility] [employer] Work Phone: Office Visiton 09-16-2024 Follow-up visit [id number] Barber Liang 1950 M Date Provider Department Center 09/16/2024 06245-OYTOCPMILAN PEÑA [facility] Family History Problem Relation Age of [...] Paternal Grandmother Paternal Grandfather Other Level of Service:[address] [place] OFFICE/OUTPATIENT ESTABLISHED MOD MDM 30 MIN Reason for Visit and Comments: Atrial Fibrillation [80] - S/p afib ablation vasovagal syncope [Other] Transient Ischemic Attack [505302] - X2 Carotid stenosis, bilateral [Other] Hyperlipidemia [182] - HAD LABS 11/5/24 Chronic systolic congestive heart failure [Other] - Congestive heart failure due to NICM Heart failure is stable . NYHA Class II Normal [facility] CNPMirta 06-18-2024 RACHAELN Telephone (PULMMN) GADIEL LIANG ([id number]) 1950 M Date Time Provider Department 06/18/24 RICKEY OSBORNE During your visit today, we recorded the following information about you: Greg River 06/18/2024 4:24 PM Signed Received a mail from [facility] with a notice on the Authorization for MRI, Brain, W/O Contrast Dated: 06/04/24 Status: Approve Service Requested: MRI, Brain, W/O Contrast Effective Dates: 06/04/2024 - 09/01/2024 Reference #: [id number] Uploaded into scan docs. Please allow time [...] LANCETS) lancets Use as instructed - Insulin [place], Disposable, (BD ULTRAFINE III MINI PEN) 31 [...] Status:Closed by GREG RIVER on 06/18/24 Normal [facility] Capillary blood glucose corey urement by glucometer (mass/volume)Ordered By: Merly Paul on 04-14-2024 Glucose [Mass/Vol] 73 mg/dL Normal [facility] Comment on above: Random Glucose Refer ence Range is dependent on time and content of last meal. Glucose of more than 200 mg/dL in a nonstressed, ambulatory subject supports the diagnosis of Diabetes Mellitus. Result Comment: [place] Glucose Reference Range is dependent on time and content of last meal. Glucose of more than 200 mg/dL in a nonstressed, ambulatory subject supports the diagnosis of Diabetes Mellitus. PERFORMED BY: [facility] [place] [address] PATHOLOGIST [employer]EST E[employer]OMIST ANJANA SEWELL M.D. Performed By: #### G LULS #### Point of Care testing , [place] 04-14-2024 L Specimen: [id number] Received: 04/14/24 Status: MAYO Yuridia Num: [id number] Spec Type: Surgical Subm Dr: Merly Paul DO Tissues: A Colon Biopsy (CECAL POLYP) B Colon Biopsy (ASC POLYPS) C Colon Biopsy (TRANSV POLYP) D Colon Biopsy (DESC POLYP) Procedures: HE/8, Gross/Micro L4/4 Age/ Patient Sex Location Account Attending Physician Gadiel Liang 73/M [id number] Merly Paul DO SPEC NUM: [id number] RECD: 04/14/24 STATUS: MAYO ESCALANTEDevin NUM: [id number] DIONICIO: 04/14/24- DR: Merly Paul DO ENTERED: 04/14/[address] [facility] [address]: Joseluis Quiroz MD SPEC TYPE: [...] -Tubular adenoma Clinical Information Diarrhea, constipation Specimen: [id number] Received: 04/14/24 Status: MAYO Shi Num: [id number] Spec Type: Surgical Subm Dr: Merly Paul DO Tissues: A Colon Biopsy (CECAL POLYP) B Colon Biopsy (ASC POLYPS) C Colon Biopsy (TRANSV POLYP) D Colon Biopsy (DESC POLYP) Procedures: HE/Claribel, Gross/Micro L4/4 Patient: Gadiel Liang [id number] (Continued) Specimen: Received: 04/14/24 (Continued) Signed (signature on file) Ayush Jackson MD 04/16/24 1330 Specimen: Received: 04/14/24 Status: MAYO Shi Num: [id number] Spec Type: Surgical Subm Dr: Merly Paul, Tissues: A Colon Biopsy (CECAL POLYP) B Colon Biopsy (ASC POLYPS) C Colon Biopsy (TRANSV POLYP) D Colon Biopsy (DESC POLYP) Procedures: , Gross/Micro L4/4 Patient: Gadiel Liang [id number] (Continued) Specimen: [id number] Received: 04/14/24 (Continued) Gross Description Received are [...] mucosal tissue fragment, entirely submitted in D1. [facility] Codes 67874Z3 Specimen: [id number] Received: 04/14/24 Status: MAYO Escalantedevin Num: [id number] Spec Type: Surgical Subm Dr: Merly Paul DO Tissues: A Colon Biopsy (CECAL POLYP) B Colon Biopsy (ASC POLYPS) C Colon Biopsy (TRANSV POLYP) D Colon Biopsy (DESC POLYP) Procedures: Rivas LOFTON/Andrew L4/4 Patient: Gadiel Liang [id number] (Continued) Signed (signature on file) Suki Jackson MD 04/16/24 3918 [facility] ECHOCARDIO M/2D COMPLETEon 0 02-28-2023 ECHOCARDIO M/2D COMPLETE Patient: GADIEL LIANG Exam Date: 02/28/2023 : 1950 Gender:M Ordering : TONA AmayaIgnacio ROSENBERG Admission #: [id number] Family : DR JOSELUIS QUIROZ M.D. Order #: [id number] CLICK HERE TO VIEW EXAM ECHOCARDIOGRAM REPORT [...] Left Atrium LA Volume Index (2D A2C): 13046 mm3 Left Atrium Systolic Dimension: 4.90 cm [...] 3 mm[Hg] Right Atrium Dictated by: Bryant aPtten M.D. on 02/28/2023 at 20:09 Approved by: Bryant Patten M.D. on 02/28/2023 at 20:13 Normal [facility] PROF 14(COMP METB)on 023 Albumin [Mass/Vol] 3.7 g/dL Normal 3.4-5.0 [facility] Comment on above: Performed By: #### C MP #### [facility] [address] [place] [address] Dr. Esme Jackson Albumin/Globulin [Mass ratio] 1.1 {ratio} Normal [facility] Comment on above: Performed By: #### C MP #### [facility] [address] [place] [address] [address] Esme Jackson ALP [Catalytic activity/Vol] 65 U/L Normal 46-116 [facility] Comment on above: Performed By: #### C MP #### [facility] [address] [place] [address] [address] Esme Jackson ALT [Catalytic activity/Vol] 26 U/L Normal 16-63 [facility] Comment on above: Performed By: #### C MP #### [facility] [address] [place] [address] [address] Esme Jackson Anion gap [Moles/Vol] 10.8 mmol/L Normal [facility] Comment on above: Performed By: #### C MP #### [facility] [address] [place] [address] [address] Esme Jackson AST [Catalytic activity/Vol] 16 U/L Normal 15-37 [facility] Comment on above: Performed By: #### C MP #### [facility] [address] [place] [address] [address] Esme Jackson Bilirubin [Mass/Vol] 1.1 mg/dL Critically high 0.2-1.0 [facility] Comment on above: Performed By: #### C MP #### [facility] [address] [place] [address] [address] Esme Jackson Calcium [Mass/Vol] 9.4 mg/dL Normal 8.5-10.1 [facility] Comment on above: Performed By: #### C MP #### [facility] [address] [place] [address] [address] Esme Jackson Chloride [Moles/Vol] 103 mmol/L Normal 98-107 [facility] Comment on above: Performed By: #### C MP #### [facility] [address] [place] [address] [address] Esme Jackson CO2 [Moles/Vol] 28.5 mmol/L Normal 21.0-32.0 [facility] Comment on above: Performed By: #### C MP #### [facility] [address] [place] [address] [address] Esme Jackson Creatinine [Mass/Vol] 1.07 mg/dL Normal 0.70-1.30 [facility] Comment on above: Performed By: #### C MP #### [facility] [address] [place] [address] [address] Esme Jackson EGFR-AF EQUATORIAL GUINEAN >60 Normal >=60 [facility] Comment on above: Performed By: #### C MP #### [facility] [address] [place] [address] [address] Esme Jackson EGFR-NON AF EQUATORIAL GUINEAN >60 Normal >=60 [facility] Comment on above: Performed By: #### C MP #### [facility] [address] [place] [address] [address] Esme Jackson Globulin (S) [Mass/Vol] 3.5 g/dL Normal [facility] Comment on above: Performed By: #### C MP #### [facility] [address] [place] [address] [address] Esme Jackson Glucose [Mass/Vol] 190 mg/dL Critically high 74-106 [facility] Comment on above: Performed By: #### C MP #### [facility] [address] [place] [address] Dr. Esme Jackson Potassium [Moles/Vol] 5.3 mmol/L Critically high 3.5-5.1 [facility] Comment on above: Performed By: #### C MP #### [facility] [address] [place] [address] Dr. Esme Jackson Protein [Mass/Vol] 7.2 g/dL Normal 6.4-8.2 [facility] [place] Comment on above: Performed By: #### C MP #### [facility] [address] [place] [address] Dr. Esme Jackson Sodium [Moles/Vol] 137 mmol/L Normal 136-145 [facility] [place] Comment on above: Performed By: #### C MP #### [facility] [address] [place] [address] Dr. Esme Jackson Urea nitrogen [Mass/Vol] 14.0 mg/dL Normal 7.0-18.0 [facility] Comment on above: Performed By: #### C MP #### [facility] [address] [place] [address] Dr. Esme Jackson Urea nitrogen/Creatinine [Mass ratio] 13.1 mg/mg Normal [facility] Comment on above: Performed By: #### C MP #### [facility] [address] [place] [address] Dr. Esme Jackson BNPon 11-10-2022 Natriuretic peptide B (Bld) [Mass/Vol] 6259.0 pg/mL Critically high <=900.0 [facility] Comment on above: Performed By: #### B DIRECTOR OF IN SERVICE EDUCATION, BMP, HSTROPN #### [facility] [address] [place] [address] Dr. Esme Jackson CBC AUTO DIFFon 11-10-2022 BASO # 0.0 103/ul Normal 0.0-0.1 [facility] Comment on above: Performed By: #### C BC #### [facility] [address] [place] [address] Dr. Esme Jackson Basophils/100 WBC (Bld) 0.5 % Normal 0.2-2.0 [facility] Comment on above: Performed By: #### C BC #### [facility] [address] [place] [address] Dr. Esme Jackson EO # 0.3 103/ul Normal 0.0-0.7 [facility] Comment on above: Performed By: #### C BC #### [facility] [address] [place] [address] Dr. Esme Jackson Eosinophils/100 WBC (Bld) 3.6 % Normal 0.9-7.0 [facility] Comment on above: Performed By: #### C BC #### [facility] [address] [place] [address] Dr. Esme Jackson Erythrocyte distribution width (RBC) [Ratio] 14.8 % Normal 11.0-15.0 [facility] Comment on above: Performed By: #### C BC #### [facility] [address] [place] [address] Dr. Esme Jackson Hematocrit (Bld) [Volume fraction] 36.9 % Critically low 42.0-54.0 [facility] Comment on above: Performed By: #### C BC #### [facility] [address] [place] [address] Dr. Esme Jackson Hemoglobin (Bld) [Mass/Vol] 12.0 g/dL Critically low 14.0-18.0 [facility] Comment on above: Performed By: #### C BC #### [facility] [address] [place] [address] [address] Esme Jackson IG # 0.04 10e3/ul Critically high 0.00-0.03 [facility] Comment on above: Performed By: #### C BC #### [facility] [address] [place] [address] [address] Esme Jackson IG % 0.5 % Normal 0.0-0.5 [facility] Comment on above: Performed By: #### C BC #### [facility] [address] [place] [address] Dr. Esme Jackson LYMPH # 1.3 103/ul Normal 1.2-3.8 [facility] Comment on above: Performed By: #### C BC #### [facility] [address] [place] [address] Dr. Esme Jackson Lymphocytes/100 WBC (Bld) 18.2 % Critically low 20.5-60.0 [facility] Comment on above: Performed By: #### C BC #### [facility] [address] [place] [address] Dr. Esme Jackson MANUAL DIFF REQ NO Normal [facility] Comment on above: Performed By: #### C BC #### [facility] [address] [place] [address] Dr. Esme Jackson MCH (RBC) [Entitic mass] 28.0 pg Normal 25.9-34.0 [facility] Comment on above: Performed By: #### C BC #### [facility] [address] [place] [address] Dr. Esme Jackson MCHC (RBC) [Mass/Vol] 32.5 g/dL Normal 29.9-35.2 [facility] Comment on above: Performed By: #### C BC #### [facility] [address] [place] [address] Dr. Esme Jackson MCV (RBC) [Entitic vol] 86.0 fL Normal 80.0-94.0 [facility] Comment on above: Performed By: #### C BC #### [facility] [address] [place] [address] Dr. Esme Jackson MONO # 0.5 103/ul Normal 0.3-0.8 [facility] Comment on above: Performed By: #### C BC #### [facility] [address] [address] [address] Esme Jackson Monocytes/100 WBC (Bld) 7.3 % Normal 1.7-12.0 [facility] Comment on above: Performed By: #### C BC #### [facility] [address] [place] [address] Dr. Esme Jackson NEUT # 5.1 103/ul Normal 1.4-6.5 [facility] Comment on above: Performed By: #### C BC #### [facility] [address] [place] [address] Dr. Esme Jackson Neutrophils/100 WBC (Bld) 69.9 % Normal 43.0-75.0 [facility] Comment on above: Performed By: #### C BC #### [facility] [address] [place] [address] Dr. Esme Jackson Platelet mean volume (Bld) [Entitic vol] 10.3 fL Normal 9.5-13.5 [facility] Comment on above: Performed By: #### C BC #### [facility] [address] [place] [address] Dr. Esme Jackson PLT 220 103/ul Normal 150-450 [facility] Comment on above: Performed By: #### C BC #### [facility] [address] [place] [address] Dr. Esme Jackson RBC 4.29 106/ul Critically low 4.70-6.10 [facility] Comment on above: Performed By: #### C BC #### [facility] [facility] [address] [place] [address] Dr. Esme Jackson WBC 7.3 103/ul Normal 4.0-11.0 [facility] Comment on above: Performed By: #### C BC #### [facility] [address] [place] [address] Dr. Esme Jackson Covid-19 PCR (CVDTB)on 10-13 SARS-CoV-2 (COVID-19) RNA HANSA+probe Ql (Unsp spec) Not detected Normal NOT DETECTED [facility] Comment on above: Result Comment: When diagnostic [...] for this test is supported by the [employer] Professor of Health and Human Service's declaration that [...] used). Performed By: #### C VDTB #### [facility] [address] [place] [address] Dr. Esme Jackson INFLUENZA A AND B AGon 11-10 INFLUANEGH SEE BELOW Normal [facility] Comment on above: Result Comment: Nega tive for Flu A protein angiten. Infection due to Flu A cannot be ruled out. Flu A angiten in the sample may be below the detection limit of the test. Performed By: #### F T4 #### [facility] [address] [place] [address] Dr. Esme Jackson INFLUBNEG SEE BELOW Normal [facility] Comment on above: Result Comment: Nega tive for Flu B protein antigen. Infection due to Flu B cannot be ruled out. Flu B antigen in the sample may be below the detection limit of the test. Performed By: #### F T4 #### [facility] [address] [place] [address] Dr. Esme Jackson INFLUENZA A AG Negative Normal NEGATIVE SEE COMMENT [facility] Comment on above: Performed By: #### F T4 #### [facility] [address] [place] [address] Dr. Esme Jackson INFLUENZA B AG Negative Normal NEGATIVE SEE COMMENT [facility] Comment on above: Performed By: #### F T4 #### [facility] [address] [place] [address] Dr. Esme Jackson PROF CHEM 8 (BAS METB)on Anion gap [Moles/Vol] 13.9 mmol/L Normal [facility] Comment on above: Performed By: #### B DIRECTOR OF IN SERVICE EDUCATION, BMP, HSTROPN #### [facility] [address] [place] [address] Dr. Esme Jackson Calcium [Mass/Vol] 8.7 mg/dL Normal 8.5-10.1 [facility] Comment on above: Performed By: #### B DIRECTOR OF IN SERVICE EDUCATION, BMP, HSTROPN #### [facility] [address] [place] [address] Dr. Esme Jackson Chloride [Moles/Vol] 104 mmol/L Normal 98-107 [facility] Comment on above: Performed By: #### B DIRECTOR OF IN SERVICE EDUCATION, BMP, HSTROPN #### [facility] [address] [place] [address] Dr. Esme Jackson CO2 [Moles/Vol] 25.2 mmol/L Normal 21.0-32.0 [facility] Comment on above: Performed By: #### B DIRECTOR OF IN SERVICE EDUCATION, BMP, HSTROPN #### [facility] [address] [place] [address] Dr. Esme Jackson Creatinine [Mass/Vol] 1.04 mg/dL Normal 0.70-1.30 [facility] Comment on above: Performed By: #### B DIRECTOR OF IN SERVICE EDUCATION, BMP, HSTROPN #### [facility] [address] [place] [address] Dr. Esme Jackson EGFR-AF EQUATORIAL GUINEAN >60 Normal >=60 [facility] Comment on above: Performed By: #### B DIRECTOR OF IN SERVICE EDUCATION, BMP, HSTROPN #### [facility] [address] [place] [address] Dr. Esme Jackson EGFR-NON AF EQUATORIAL GUINEAN >60 Normal >=60 [facility] Comment on above: Performed By: #### B DIRECTOR OF IN SERVICE EDUCATION, BMP, HSTROPN #### [facility] [address] [address] [address] Esme Jackson Glucose [Mass/Vol] 199 mg/dL Critically high 74-106 [facility] Comment on above: Performed By: #### B DIRECTOR OF IN SERVICE EDUCATION, BMP, HSTROPN #### [facility] [address] [address] [address] Esme Jackson Potassium [Moles/Vol] 4.1 mmol/L Normal 3.5-5.1 [facility] Comment on above: Performed By: #### B DIRECTOR OF IN SERVICE EDUCATION, BMP, HSTROPN #### [facility] [address] [place] [address] Dr. Esme Jackson Sodium [Moles/Vol] 139 mmol/L Normal 136-145 [facility] Comment on above: Performed By: #### B DIRECTOR OF IN SERVICE EDUCATION, BMP, HSTROPN #### [facility] [address] [place] [address] Dr. Esme Jackson Urea nitrogen [Mass/Vol] 18.0 mg/dL Normal 7.0-18.0 [facility] Comment on above: Performed By: #### B DIRECTOR OF IN SERVICE EDUCATION, BMP, HSTROPN #### [facility] [address] [place] [address] Dr. Esme Jackson Urea nitrogen/Creatinine [Mass ratio] 17.3 mg/mg Normal [facility] Comment on above: Performed By: #### B DIRECTOR OF IN SERVICE EDUCATION, BMP, HSTROPN #### [facility] [address] [place] [address] Dr. Esme Jackson TROPONIN, HIGH SENSITIVITYon 11-10-2022 HSTROP 35.5 pg/mL Normal 4.0-76.1 [facility] Comment on above: Result Comment: CUT- OFF POINTS HAVE BEEN ESTABLISHED BASED ON THE FOURTH UNIVERSAL DEFINITIONS OF MYOCARDIAL INFARCTION. THE UPPER REFERENCE LIMIT (URL) OF TROPONIN, DEFINED THE 99TH PERCENTILE OF cTnI DISTRIBUTION IN A REFERENCE POPULATION, HAS BEEN CONFIRMED THE DECISION THRESHOLD FOR MS DIAGNOSIS. Performed By: #### B DIRECTOR OF IN SERVICE EDUCATION, BMP, HSTROPN #### [facility] [address] [address] [address] Esme Jackson XR CHEST 1 Von [...] RY CLINTON Date: 2022-11-10 09:24 Normal [facility] Covid-19 PCR (CVDTB)on SARS-CoV-2 (COVID-19) RNA HANSA+probe Ql (Unsp spec) Not detected Normal NOT DETECTED [facility] Comment on above: Result Comment: When diagnostic [...] for this test is supported by the [employer] Professor of Health and Human Service's declaration that [...] used). Performed By: #### C VDTB #### [facility] [address] [address] [address] Esme Jackson INFLUENZA A AND B AGon 10-15 INFLUANEGH SEE BELOW Normal [facility] Comment on above: Result Comment: Nega tive for Flu A protein angiten. Infection due to Flu A cannot be ruled out. Flu A angiten in the sample may be below the detection limit of the test. Performed By: #### F T4 #### [facility] [address] [place] [address] Dr. Esme Jackson INFLUBNEG SEE BELOW Normal [facility] Comment on above: Result Comment: Nega tive for Flu B protein antigen. Infection due to Flu B cannot be ruled out. Flu B antigen in the sample may be below the detection limit of the test. Performed By: #### F T4 #### [facility] [address] [place] [address] Dr. Esme Jackson INFLUENZA A AG Negative Normal NEGATIVE SEE COMMENT [facility] Comment on above: Performed By: #### F T4 #### [facility] [address] [place] [address] Dr. Esme Jackson INFLUENZA B AG Negative Normal NEGATIVE SEE COMMENT [facility] Comment on above: Performed By: #### F T4 #### [facility] [address] [place] [address] Dr. Esme Jackson INTERNAL CONTROLS Within Normal Limits Normal Wi thin Normal Limits [facility] Comment on above: Performed By: #### F T4 #### [facility] [address] [place] [address] Dr. Esme Jackson XR CHEST 2 Von [...] RAPHAEL NUNEZ Date: 2022-10-15 10:08 Normal [facility] Follow Up (Endocrinology)on 10-10-2022 Follow Up (Endocrinology) [...] insulin; CATIE = N; Verified Transmission to [id number]; Last Updated By: [employer]; 10/10/2022 11:29:03 AM Albumin, Urine Spot; Status:Active; Requested for:10Oct2022; Perform:Lab Services - Lab To Draw (Non-Blood Test); Due:08Jan2023;Ordered; For:Central hypothyroidism, Hyperlipemia, Hypogonadism male, Pituitary macroadenoma, Thyroid nodule, Type 2 diabetes mellitus with other specified complication, with long-term current use of insulin; Ordered By:Mandie Osborne; Brain Natriuretic Peptide BNP; Status:Active; Requested for:10Oct2022; Perform:Lab Services - Lab To Draw (Blood Test); Due:[id number];Ordered; For:Central hypothyroidism, Hyperlipemia, Hypogonadism male, Pituitary macroadenoma, Thyroid nodule, Type 2 diabetes mellitus with other specified complication, with long-term current use of insulin; Ordered By:Mandie Osborne; Complete Blood Count + Differential; Status:Active; Requested for:10Oct2022; Perform:Lab Services - Lab To Draw (Blood Test); Due:[id number];Ordered; For:Central hypothyroidism, Hyperlipemia, Hypogonadism male, Pituitary macroadenoma, [...] Services - Lab To Draw (Blood Test); Due:[id number];Ordered; For:Central hypothyroidism, Hyperlipemia, Hypogonadism male, Pituitary macroadenoma, Thyroid nodule, Type 2 diabetes mellitus with other specified complication, with long-term current use of insulin; Ordered By:Mandie Osborne; T4 - Free Thyroxine, Serum; Status:Active; Requested for:10Oct2022; Perform:Lab Services - Lab To Draw (Blood Test); Due:[id number];Ordered; For:Central hypothyroidism, Hyperlipemia, Hypogonadism male, Pituitary macroadenoma, Thyroid nodule, Type 2 (more content not included)... Normal [facility] CORTISOL Bri 06-25-2022 Cortisol AM 19.6 ug/dL Critically high 6.2-19.4 [facility] Comment on above: Performed By: #### C ORTAM #### [facility] [address] [address] [address] Esme Jackson MICROALBUMIN URINEon 022 Albumin, Urine 36.5 ug/mL Normal Not Estab. [facility] Comment on above: Performed By: #### F T4 #### [facility] [address] [address] [address] Esme Jackson FREE T4on 06-22-2022 Free T4 [Mass/Vol] 1.22 ng/dL Normal 0.76-1.46 [facility] Comment on above: Performed By: #### F T4 #### [facility] [address] [address] [address] Esme Jackson GLYCOHEMOGLOBIN A1Con 2021 ADA RECOMMENDATION SEE BELOW Normal [facility] Comment on above: Result Comment: ADA RECOMMENDED LIMIT 4.0 - 6.0 ADA THERAPEUTIC TARGET < 7.0 ACTION SUGGESTED > 7.0 Performed By: #### F T4 #### [facility] [address] [address] [address] Esme Jackson Glucose [Mass/Vol] 194 mg/dL Normal [facility] Comment on above: Performed By: #### F T4 #### [facility] [address] [address] [address] Esme Jackson HbA1c (Bld) [Mass fraction] 8.4 % Critically high 4.5-6.2 [facility] Comment on above: Performed By: #### F T4 #### [facility] [address] [address] [address] Esme Jackson LIPID PROFILEon 06-22-2022 CHOL-HDL RATIO NORM SEE BELOW Normal [facility] Comment on above: Result Comment: 3.3 - 4.4 LOW RISK 4.4 - 7.1 AVERAGE RISK 7.1 - 11.0 MODERATE RISK >11.0 HIGH RISK Performed By: #### F T4 #### [facility] [address] [address] [address] Esme Jackson Cholesterol [Mass/Vol] 153 mg/dL Normal <=200 [facility] Comment on above: Performed By: #### F T4 #### [facility] [address] [address] [address] Esme Jackson Cholesterol in HDL [Mass/Vol] 55 mg/dL Normal 40-60 [facility] Comment on above: Performed By: #### F T4 #### [facility] [address] [address] [address] Esme Jackson Cholesterol in LDL [Mass/Vol] 82.2 mg/dL Normal [facility] Comment on above: Performed By: #### F T4 #### [facility] [address] [address] [address] Esme Jackson Cholesterol.total/C holesterol in HDL [Mass ratio] 2.8 {ratio} Normal [facility] Comment on above: Performed By: #### F T4 #### [facility] [address] [address] [address] Esme Jackson HDL NORMAL > or = 60 mg/dl - LO W CARDIOVASCULAR RISK <40 mg/dl - HIGH CARDIOVASCULAR RISK Normal [facility] Comment on above: Performed By: #### F T4 #### [facility] [address] [place] [address] Dr. Esme Jackson LDL CALC NORMAL SEE BELOW Normal [facility] Comment on above: Result Comment: <100 mg/dl OPTIMAL 100 - 129 mg/dl NEAR OR ABOVE OPTIMAL 130 - 159 mg/dl BORDERLINE HIGH 160 - 189 mg/dl HIGH >190 mg/dl VERY HIGH Performed By: #### F T4 #### [facility] [address] [address] [address] Esme Jackson Triglyceride [Mass/Vol] 79 mg/dL Normal <=150 [facility] Comment on above: Performed By: #### F T4 #### [facility] [address] [place] [address] Dr. Esme Jackson VLDL CALC 15.8 mg/dL Normal [facility] Comment on above: Performed By: #### F T4 #### [facility] [address] [place] [address] Dr. Esme Jackson PROF 14(COMP METB)on 022 Albumin [Mass/Vol] 3.9 g/dL Normal 3.4-5.0 [facility] Comment on above: Performed By: #### F T4 #### [facility] [address] [place] [address] Dr. Esme Jackson Albumin/Globulin [Mass ratio] 1.1 {ratio} Normal [facility] Comment on above: Performed By: #### F T4 #### [facility] [address] [place] [address] Dr. Esme Jackson ALP [Catalytic activity/Vol] 57 U/L Normal 46-116 [facility] Comment on above: Performed By: #### F T4 #### [facility] [address] [place] [address] Dr. Esme Jackson ALT [Catalytic activity/Vol] 22 U/L Normal 16-63 [facility] Comment on above: Performed By: #### F T4 #### [facility] [address] [place] [address] Dr. Esme Jackson Anion gap [Moles/Vol] 12.6 mmol/L Normal [facility] Comment on above: Performed By: #### F T4 #### [facility] [address] [address] [address] Esme Jackson AST [Catalytic activity/Vol] 18 U/L Normal 15-37 [facility] Comment on above: Performed By: #### F T4 #### [facility] [address] [address] [address] Esme Jackson Bilirubin [Mass/Vol] 1.1 mg/dL Critically high 0.2-1.0 [facility] Comment on above: Performed By: #### F T4 #### [facility] [address] [address] [address] Esme Jackson Calcium [Mass/Vol] 9.0 mg/dL Normal 8.5-10.1 [facility] Comment on above: Performed By: #### F T4 #### [facility] [address] [address] [address] Esme Jackson Chloride [Moles/Vol] 103 mmol/L Normal 98-107 [facility] Comment on above: Performed By: #### F T4 #### [facility] [address] [address] [address] Esme Jackson CO2 [Moles/Vol] 27.2 mmol/L Normal 21.0-32.0 [facility] Comment on above: Performed By: #### F T4 #### [facility] [address] [address] [address] Esme Jackson Creatinine [Mass/Vol] 0.90 mg/dL Normal 0.70-1.30 [facility] Comment on above: Performed By: #### F T4 #### [facility] [address] [address] [address] Esme Jackson EGFR-AF EQUATORIAL GUINEAN >60 Normal >=60 [facility] Comment on above: Performed By: #### F T4 #### [facility] [address] [address] [address] Esme Jackson EGFR-NON AF EQUATORIAL GUINEAN >60 Normal >=60 [facility] Comment on above: Performed By: #### F T4 #### [facility] [address] [address] [address] Esme Jackson Globulin (S) [Mass/Vol] 3.4 g/dL Normal [facility] Comment on above: Performed By: #### F T4 #### [facility] [address] [place] [address] Dr. Esme Jackson Glucose [Mass/Vol] 185 mg/dL Critically high 74-106 [facility] Comment on above: Performed By: #### F T4 #### [facility] [address] [place] [address] Dr. Esme Jackson Potassium [Moles/Vol] 3.8 mmol/L Normal 3.5-5.1 [facility] Comment on above: Performed By: #### F T4 #### [facility] [address] [place] [address] Dr. Esme Jackson Protein [Mass/Vol] 7.3 g/dL Normal 6.4-8.2 [facility] Comment on above: Performed By: #### F T4 #### [facility] [address] [place] [address] Dr. Esme Jackson Sodium [Moles/Vol] 139 mmol/L Normal 136-145 [facility] Comment on above: Performed By: #### F T4 #### [facility] [address] [place] [address] Dr. Esme Jackson Urea nitrogen [Mass/Vol] 12.0 mg/dL Normal 7.0-18.0 [facility] Comment on above: Performed By: #### F T4 #### [facility] [address] [place] [address] Dr. Esme Jackson Urea nitrogen/Creatinine [Mass ratio] 13.3 mg/mg Normal [facility] Comment on above: Performed By: #### F T4 #### [facility] [address] [place], [place] [id number] Dr. Esme Jackson US THYROIDon 06-22-2022 US [...] nodules. 1 year follow-up recommended TI-RADS: The [employer] TI-RADS committee's white paper recommendations for thyroid lesions classified as TR5 (highly suspicious) are listed below: > 0.5 cm. Annual ultrasound follow-up for up to 5 years. > 1.0 cm. FNA. J. Am Dionicio Radiol 2017;14:587-595. Electronically authenticated by: GEORGIE VIERA Date: 2022-06-22 17:28 Normal [facility] Follow Up (Endocrinology)on 04-24-2022 Follow Up [...] Thyroid; Status:Hold For - Scheduling; Requested for:24Apr2022; Perform:[facility]; Due:23Jul2022;Ordered; For:Central [...] nodule; CATIE = N; Verified Transmission to [facility]; Last Updated By: [employer]; 04/24/2022 10:33:22 AM Hypogonadism male, Pituitary macroadenoma Renew: Testosterone 50 MG/5GM (1%) Transdermal Gel; APPLY 1 PACKET ONE TIME DAILY DIRECTED Rx By: Mandie Osborne; Dispense: 0 Days ; #:90 X 5 GM Package; Refill: 1;For: Hypogonadism male, Pituitary macroadenoma; CATIE = N; Verified Transmission to [facility]; Last Updated By: [employer]; 04/24/2022 10:33:21 AM Pituitary macroadenoma Renew: Cabergoline 0.5 MG Oral Tablet; Take 1 tablet every other day Rx By: Mandie Osborne; Dispense: 80 Days ; #:40 Tablet; Refill: 3;For: Pituitary macroadenoma; CATIE = N; Verified Transmission to [facility]; Last Updated By: [employer]; 04/24/2022 10:33:26 AM Type 2 diabetes mellitus with other specified complication, with long-term current use of insulin Renew: Accu-Chek Alicia Plus In Vitro Strip; TEST TWICE DAILY Rx B (more content not included)... Normal [facility] Tobacco Screening.on 022 Adult depression screening assessment No [facility] [address] Work Phone: Fall risk assessment a) No falls within the last year [facility] [address] Work Phone: Tobacco use status [facility] b) No [facility] [address] Work Phone: Vital Signs Date Time Vital Sign Value Performing Clinician Facility 05-24-2025 10:02-0400 Body height 176.53 cm Joseluis Quiroz MD Work Phone: [facility] 05-24-2025 10:02-0400 Body mass index (BMI) [Ratio] 27.9 kg/m2 Joseluis Quiroz MD Work Phone: [facility] 05-24-2025 10:02-0400 Body weight 87.08 kg Joseluis Quiroz MD Work Phone: [facility] 05-24-2025 10:02-0400 Diastolic blood pressure 62 mm[Hg] Joseluis Quiroz MD Work Phone: [facility] 05-24-2025 10:02-0400 Heart rate 68 /min Joseluis Quiroz MD Work Phone: [facility] 05-24-2025 10:02-0400 Respiratory rate 12 /min Joseluis Quiroz MD Work Phone: [facility] 05-24-2025 10:02-0400 SaO2% (BldA) [Mass fraction] 97 % Joseluis Quiroz MD Work Phone: [facility] 05-24-2025 10:02-0400 Systolic blood pressure 104 mm[Hg] Joseluis Quiroz MD Work Phone: [facility] 02-11-2025 13:12-0400 Body height 182.9 cm Ansley Chaves DO Work Phone: [facility] 02-11-2025 13:12-0400 Body mass index (BMI) [Ratio] 26.56 kg/m2 Ansley Chaves DO Work Phone: [facility] 02-11-2025 13:12-0400 Body weight 88.81 kg Ansley Chaves DO Work Phone: [facility] 12-29-2024 13:31-0500 Body height 182.9 cm Henrry Johnson MD Work Phone: [facility] 12-29-2024 13:31-0500 Body mass index (BMI) [Ratio] 26.72 kg/m2 Henrry Johnson MD Work Phone: [facility] 12-29-2024 13:31-0500 Body weight 89.36 kg Henrry Johnson MD Work Phone: [facility] 12-29-2024 13:31-0500 Diastolic blood pressure 59 mm[Hg] Henrry Johnson MD Work Phone: [facility] 12-29-2024 13:31-0500 Heart rate 77 /min Henrry Johnson MD Work Phone: [facility] 12-29-2024 13:31-0500 Systolic blood pressure 100 mm[Hg] Henrry Johnson MD Work Phone: [facility] 07-14-2024 11:22-0400 Body height 182.9 cm Henrry Johnson MD Work Phone: [facility] 07-14-2024 11:22-0400 Body mass index (BMI) [Ratio] 26.31 kg/m2 Henrry Johnson MD Work Phone: [facility] 07-14-2024 11:22-0400 Body weight 88 kg Henrry Johnson MD Work Phone: [facility] 07-14-2024 11:22-0400 Diastolic blood pressure 62 mm[Hg] Henrry Johnson MD Work Phone: [facility] 07-14-2024 11:22-0400 Systolic blood pressure 131 mm[Hg] Henrry Johnson MD Work Phone: [facility] 04-14-2024 12:35-0400 Diastolic blood pressure 63 mm[Hg] MD Joseluis Quiroz Work Phone: [facility] 04-14-2024 12:35-0400 Heart rate 54 /min MD Joseluis Quiroz Work Phone: [facility] 04-14-2024 12:35-0400 Respiratory rate 18 /min MD Joseluis Quiroz Work Phone: [facility] 04-14-2024 12:35-0400 SaO2% (BldA) [Mass fraction] 99 % MD Joseluis Quiroz Work Phone: [facility] 04-14-2024 12:35-0400 Systolic blood pressure 125 mm[Hg] MD Joseluis Quiroz Work Phone: [facility] 04-14-2024 11:02-0400 Body height 182.88 cm MD Joseluis Quiroz Work Phone: [facility] 04-14-2024 11:02-0400 Body weight 86.18 kg MD Joseluis Quiroz Work Phone: [facility] 03-18-2024 10:35-0400 Body height 182.88 cm MD Joseluis Quiroz Work Phone: [facility] 03-18-2024 10:35-0400 Body mass index (BMI) [Ratio] 25.7 kg/m2 MD Joseluis Quiroz Work Phone: [facility] 03-18-2024 10:35-0400 Body weight 86.18 kg MD Joseluis Quiroz Work Phone: [facility] 03-06-2024 10:52-0400 Body height 182.88 cm MD Joseluis Quiroz Work Phone: [facility] 03-06-2024 10:52-0400 Body mass index (BMI) [Ratio] 26.9 kg/m2 MD Joseluis Quiroz Work Phone: [facility] 03-06-2024 10:52-0400 Body temperature 99.2 [degF] MD Joseluis Quiroz Work Phone: [facility] 03-06-2024 10:52-0400 Body weight 89.98 kg MD Joseluis Quiroz Work Phone: [facility] 03-06-2024 10:52-0400 Diastolic blood pressure 60 mm[Hg] MD Joseluis Quiroz Work Phone: [facility] 03-06-2024 10:52-0400 Heart rate 69 /min MD Joseluis Quiroz Work Phone: [facility] 03-06-2024 10:52-0400 Respiratory rate 18 /min MD Joseluis Quiroz Work Phone: [facility] 03-06-2024 10:52-0400 SaO2% (BldA) [Mass fraction] 95 % MD Joseluis Quiroz Work Phone: [facility] 03-06-2024 10:52-0400 Systolic blood pressure 127 mm[Hg] MD Joseluis Quiroz Work Phone: [facility] 10-29-2023 13:30-0500 Body height 182.88 cm Joseluis Quiroz Other [facility] Other 10-29-2023 13:30-0500 Body mass index (BMI) [Ratio] 26.09 kg/m2 Joseluis Quiroz Other [facility] [employer] Other 10-29-2023 13:30-0500 Body weight 87.27 kg Joseluis Quiroz Other [facility] [employer] Other 10-29-2023 13:30-0500 Diastolic blood pressure 72 mm[Hg] Joseluis Quiroz Other [facility] [employer] Other 10-29-2023 13:30-0500 SaO2% (BldA) [Mass fraction] 93 % Joseluis Quiroz Other [facility] Other 10-29-2023 13:30-0500 Systolic blood pressure 130 mm[Hg] Joseluis Quiroz Other [facility] Other 08-19-2023 11:00-0400 Body height 182.88 cm Joseluis Quiroz Other [facility] Other 08-19-2023 11:00-0400 Body mass index (BMI) [Ratio] 25.36 kg/m2 Joseluis Quiroz Other [facility] Other 08-19-2023 11:00-0400 Body weight 84.82 kg Joseluis Quiroz Other [facility] Other 08-19-2023 11:00-0400 Diastolic blood pressure 61 mm[Hg] Joseluis Quiroz Other [facility] Other 08-19-2023 11:00-0400 Systolic blood pressure 126 mm[Hg] Joseluis Quiroz Other [facility] Other Encounters Encounter Date Encounter Type Care Provider Facility Start: 06-29-2025 End: 06-29-2025 Clinisync Result Encounter Henrry Johnson MD Work Phone: [facility] External [facility] Unsolicited Start: 06-29-2025 End: 06-29-2025 Clinisync Result Encounter Henrry Johnson MD Work Phone: [facility] Unsolicited Start: 05-24-2025 End: 05-24-2025 ambulatory Joseluis Quiroz MD Work Phone: [facility] Work Phone: Start: 05-24-2025 End: 05-24-2025 Patient encounter procedure Joseluis Quiroz MD -[facility] Work Phone: Start: 04-20-2025 End: 04-20-2025 ambulatory TONA [facility] Start: 04-15-2025 Non-patient / Non-visit Milan Peña MD -[facility] Work Phone: Start: [...] Available Start: 02-01-2025 End: 02-01-2025 ambulatory ISAURA GABRER Not Available Start: 12-29-2024 End: 12-29-2024 Bamboo flowsheet Henrry Johnson MD Work Phone: [facility] Start: 12-29-2024 End: 12-29-2024 Bamboo flowsheet Henrry Johnson MD Work Phone: [facility] Start: 12-29-2024 End: 12-29-2024 ambulatory HENRRY JOHNSON Not Available Start: 12-29-2024 End: 12-29-2024 Office outpatient visit 15 minutes eHnrry Johnson MD Work Phone: [facility] Comment on above: Thyroid nodule (CMS/ HCC) (Primary Dx) Start: 12-23-2024 End: 12-23-2024 Clinisync Result Encounter Henrry Johnson MD Work Phone: [facility] External [facility] Unsolicited Start: 12-23-2024 End: 12-23-2024 Clinisync Result Encounter Henrry Johnson MD Work Phone: [facility] External Department Unsolicited Start: 09-16-2024 End: 09-16-2024 ambulatory [facility] Start: 07-14-2024 End: 07-14-2024 Bamboo flowsheet Henrry [...] Medicine Comment on above: Insurance Authorizat ion ([place]) Start: 05-20-2024 Patient encounter procedure Joseluis Quiroz MD Work Phone: [facility] Start: 05-07-2024 End: 05-07-2024 Office outpatient visit 40 minutes Mandie Osborne MD Work Phone: [facility] Comment on above: Hypopituitarism ([place]) (Primary Dx); Hypogonadism male; Hyperparathyroidism (Multi); Hyperprolactinemia (Multi); Type 2 diabetes mellitus without complication, with long-term current use of insulin (Multi); Thyroid nodule Start: 04-14-2024 Non-patient / Non-visit MD Hiral Quiroz Work Phone: [facility] Work Phone: Start: 04-14-2024 End: 04-14-2024 Admission to same day surgery center MD Joseluis Quiroz Work Phone: [facility] Work Phone: Start: 04-14-2024 End: 04-14-2024 ambulatory MD Joseluis Quiroz Work Phone: [facility] Work Phone: Start: 03-23-2024 End: 03-23-2024 ambulatory RAPHAEL SPRINGER Not Available Start: 03-18-2024 End: 03-18-2024 Patient encounter procedure MD Joseluis Quiroz Work Phone: [facility] Work Phone: Start: 03-06-2024 End: 03-06-2024 Patient encounter procedure MD Joseluis Quiroz Work Phone: [facility] [place] Work Phone: Start: 12-23-2023 End: 12-23-2023 ambulatory Joseluis Quiroz Other [facility] Other Start: 12-23-2023 Telephone encounter Joseluis Quiroz [facility] Start: 10-29-2023 End: 10-29-2023 ambulatory Joseluis Quiroz Other [facility] Other Start: 10-29-2023 Office outpatient vi sit 15 minutes Joseluis Quirzo [facility] Start: 10-16-2023 End: 10-16-2023 ambulatory Joseluis Quiroz Other [facility] Other Start: 10-16-2023 Telephone encounter Joseluis Quiroz [facility] Start: 09-13-2023 End: 09-13-2023 ambulatory Joseluis Quiroz Other [facility] Other Start: 09-13-2023 Telephone encounter Joseluis Quiroz [facility] Start: 09-10-2023 End: 09-10-2023 ambulatory Joseluis Quiroz Other [facility] Other Start: 09-10-2023 Telephone encounter Joseluis Quiroz [facility] Start: 08-19-2023 End: 08-19-2023 ambulatory Joseluis Quiroz Other [facility] Other Start: 08-19-2023 Office outpatient vi sit 15 minutes Joseluis Quiroz [facility] Start: 07-31-2023 End: 07-31-2023 ambulatory Joseluis Quiroz Other [facility] Other Start: 07-31-2023 Telephone encounter Joseluis Quiroz [facility] Start: 05-29-2023 Rx Renewal Cabrera Dupont Work Phone: [facility] [address] Work Phone: Start: 04-08-2023 Rx Renewal Cabrera Dupont Work Phone: [facility] [address] [place] Work Phone: Start: 02-28-2023 End: 03-01-2023 ambulatory TONA ROSENBERG Facility:H1 Start: 01-30-[address] JOSELUIS QUIROZ Facil ity:H1 Start: 01-22-2023 AUDIT Cabrera Dupont Work Phone: [facility] Work Phone: Start: 01-22-2023 Rx Renewal [...] sit 25 minutes Cabrera Dupont Work Phone: DE-Wytnltlxxolly-CTK [address] Work Phone: Start: 10-10-2022 ambulatory Referral Self Facility: [id number] Start: 09-28-2022 AUDIT Cabrera Dupont Work Phone: ME-Fvzjuotfckvdl[facility] Work Phone: Start: 07-13-2022 Rx Renewal Cabrera Dupont Work Phone: [facility] [address] [place] Work Phone: Start: 07-02-2022 Telephone encounter Mandie sun MD Work Phone: Endocrinology Comment on above: Received Outside [facility] Records (Received Thyroid US report from [facility]. Indexed into chart. ) Start: 06-22-2022 End: 06-23-[address] DOCTOR BUSBY Facility:H1 Start: 04-24-2022 Office outpatient vi sit 40 minutes Cabrera Dupont Work Phone: ZH-Urezssve[facility]nj[facility] [address] Work Phone: Start: 04-24-[address] Cabrera Dupont Facility:[id number] Start: 03-27-2022 AUDIT Cabrera Dupont Work Phone: [facility] Work Phone: Start: 01-23-2022 KALPESH Dupont Work Phone: KQ-Midrbexsryfdu-NajrufsChi [facility] Work Phone: Start: 12-11-2021 Rx Renewal Cabrera Dupont Work Phone: XK[facility] Work Phone: Start: 11-08-2021 KALPESH Dupont Work Phone: EP-Glqucimxmpdab-[facility]ngbcgg[facility] Work Phone: Start: 08-21-2021 KALPESH Dupont Work Phone: VZ-Lopuodpsnauvb-KXJ [place] [address] Work Phone: Start: 05-31-2021 AUDIT Cabrera Dupont Work Phone: BE-Jehfthiowiehp-WJT [place] [address] Work Phone: Start: 06-20-2017 End: 06-21-2017 Ambulatory DEFAULT PHYSICIAN Facility:[facility] Procedures Date Procedure Procedure Detail Performing Clinician [...] [place] [address] Ansley Chaves DO [address] [place], [place] [id number] Primary osteoarthritis of right hip (Primary Dx) [facility] NARAYAN GARNICA Comment on above: Primary osteoarthritis of right hip (Jocelynn mary ann Dx) Start: 12-29-2024 End: 12-29-2024 Patient encounter procedure 12/29/2024 1:30 PM EST Office Visit [facility] [address] [place] [address] Henrry Johnson MD [address] [place] [address] [facility] Start: 07-14-2024 End: 07-14-2024 Patient encounter procedure 07/14/2024 11:30 AM EDT Office Visit [facility] [address] [place] [address] Henrry Johnson MD [address] [place] [address] Arrived [facility] Comment on above: Arrived Start: 07-12-2024 Influenza vaccination [facility] Start: 05-07-2024 End: 05-07-2025 Comprehensive metabolic 2000 panel - Serum or Plasma Comprehensive Metabolic Panel Lab Routine Hypopituitarism (Multi) Hypogonadism male Hyperparathyroidism (Multi) Hyperprolactinemia (Multi) Type 2 diabetes mellitus without complication, with long-term current use of insulin (Multi) Expected: 05/07/2024 (Approximate), Expires: 05/07/2025 [facility] Work Phone: Comment on above: Expected: 05/07/2024 (Approximate), Expi res: 05/07/2025 Start: 05-07-2024 End: 05-07-2025 Cortisol [Mass/volume] in Serum or Plasma Cortisol Lab Routine Hypopituitarism (Multi) Hypogonadism male Hyperparathyroidism (Multi) Hyperprolactinemia (Multi) Type 2 diabetes mellitus without complication, with long-term current use of insulin (Multi) Expected: 05/07/2024 (Approximate), Expires: 05/07/2025 [facility] Service Area Work Phone: Comment on above: Expected: 05/07/2024 (Approximate), Expi res: 05/07/2025 Start: 05-07-2024 End: 05-07-2025 Hemoglobin A1c/Hemoglobin.total in Blood Hemoglobin A1C Lab Routine Hypopituitarism (Multi) Hypogonadism male Hyperparathyroidism (Multi) Hyperprolactinemia (Multi) Type 2 diabetes mellitus without complication, with long-term current use of insulin (Multi) Expected: 05/07/2024 (Approximate), Expires: 05/07/2025 [facility] Work Phone: Comment on above: Expected: 05/07/2024 (Approximate), Expi res: 05/07/2025 Start: 05-07-2024 End: 05-07-2025 Lipid 1996 panel - Serum or Plasma Lipid Panel Lab Routine Hypopituitarism (Multi) Hypogonadism male Hyperparathyroidism (Multi) Hyperprolactinemia (Multi) Type 2 diabetes mellitus without complication, with long-term current use of insulin (Multi) Expected: 05/07/2024 (Approximate), Expires: 05/07/2025 [facility] Work Phone: Comment on above: Expected: 05/07/2024 (Approximate), Expi res: 05/07/2025 Start: 05-07-2024 End: 05-07-2025 Microalbumin/Creatinine [Mass Ratio] in Urine Albumin-Creatinine Ratio, Urine Random Lab Routine Hypopituitarism (Multi) Hypogonadism male Hyperparathyroidism (Multi) Hyperprolactinemia (Multi) Type 2 diabetes mellitus without complication, with long-term current use of insulin (Multi) Expected: 05/07/2024 (Approximate), Expires: 05/07/2025 [facility] Work Phone: Comment on above: Expected: 05/07/2024 (Approximate), Expi res: 05/07/2025 Start: 05-07-2024 End: 05-07-2025 MR Pituitary and Sella turcica WO and W contrast IV MR sella w and wo IV contrast Imaging Routine Hypopituitarism (Multi) Hypogonadism male Hyperparathyroidism (Multi) Hyperprolactinemia (Multi) Type 2 diabetes mellitus without complication, with long-term current use of insulin (Multi) Thyroid nodule Expected: 05/07/2024, Expires: 05/07/2025 [facility] Work Phone: Comment on above: Expected: 05/07/2024, Expires: Start: 05-07-2024 End: 05-07-2025 Parathyrin.intact [Mass/volume] in Serum or Plasma Parathyroid Hormone, Intact Lab Routine Hypopituitarism (Multi) Hypogonadism male Hyperparathyroidism (Multi) Hyperprolactinemia (Multi) Type 2 diabetes mellitus without complication, with long-term current use of insulin (Multi) Thyroid nodule Expected: 05/07/2024 (Approximate), Expires: 05/07/2025 [facility] Work Phone: Comment on above: Expected: 05/07/2024 (Approximate), Expi res: 05/07/2025 Start: 05-07-2024 End: 05-07-2025 Prolactin [Mass/volume] in Serum or Plasma Prolactin Lab Routine Hypopituitarism (Multi) Hypogonadism male Hyperparathyroidism (Multi) Hyperprolactinemia (Multi) Type 2 diabetes mellitus without complication, with long-term current use of insulin (Multi) Expected: 05/07/2024 (Approximate), Expires: 05/07/2025 [facility] Work Phone: Comment on above: Expected: 05/07/2024 (Approximate), Expi res: 05/07/2025 Start: 05-07-2024 End: 05-07-2025 Testosterone,Free and Total Testosterone,Free and Total Lab Routine Hypopituitarism (Multi) Hypogonadism male Hyperparathyroidism (Multi) Hyperprolactinemia (Multi) Type 2 diabetes mellitus without complication, with long-term current use of insulin (Multi) Expected: 05/07/2024 (Approximate), Expires: 05/07/2025 [facility] Work Phone: Comment on above: Expected: 05/07/2024 (Approximate), Expi res: 05/07/2025 Start: 05-07-2024 End: 05-07-2025 Thyroxine (T4) free [Mass/volume] in Serum or Plasma Thyroxine, Free Lab Routine Hypopituitarism (Multi) Hypogonadism male Hyperparathyroidism (Multi) Hyperprolactinemia (Multi) Type 2 diabetes mellitus without complication, with long-term current use of insulin (Multi) Expected: 05/07/2024 (Approximate), Expires: 05/07/2025 [facility] Work Phone: Comment on above: Expected: 05/07/2024 (Approximate), Expi res: 05/07/2025 Start: 04-14-2024 [facility] Start: 11-11-2023 Advance Directive Discussion Advance Directive Discussion [facility] Start: 07-12-2023 Covid-19 Vaccine ( season) Covid-19 Vaccine () [facility] Start: 10-10-2022 VIRKEENA, Provider: Mandie Osborne, Status: Pen, Time: 11:15 AM AMY, Provider: Mandie Osborne, Status: Pen, Time: 11:15 AM CZ-Kofzppxpgnxqv-F [facility] Work Phone: Start: 07-12-2022 Influenza vaccination INFLUENZA (#1) [facility] Start: 04-24-2022 AMY, Provider: Ynes Sahni, Status: Pen, Time: 1:00 PM AMY, Provider: Ynes Sahni, Status: Pen, Time: 1:00 PM HQ-Gtsjfyblfmpcw-D [facility] Work Phone: Start: 01-21-2022 Diabetes Screening Diabetes Screening [facility] Start: 11-11-2021 ADVANCE DIRECTIVE DISCUSSION ADVANCE DIRECTIVE DISCUSSION [facility] Start: 08-24-2021 Lipid panel Lipid Screening [facility] Start: 07-24-2019 Hemoglobin A1c/Hemoglobin.total in Blood HBA1C [facility] Start: 08-12-2018 Pneumococcal Vaccine: 65+ (2 of 2 - PCV) Pneumococcal Vaccine: 65+ (2 of 2 - PCV) [facility] Start: 08-12-2018 Pneumococcal Vaccine: 65+ Years (2 of 2 - PCV) Pneumococcal Vaccine: 65+ Years (2 of 2 - PCV) [facility] Start: 10-07-2017 Shingrix Vaccine (3 of 3) Shingrix Vaccine (3 of 3) [facility] Start: 08-24-2017 Hepatitis B screening URINE ALBUMIN:CREATININE RATIO [facility] Start: 08-24-2017 Hepatitis B surface antibody level LDL CHOLESTEROL [facility] Start: 08-14-2017 3 comp foot exam completed DIABETIC FOOT EXAM [facility] Start: 11-22-2016 Hepatitis C antibody, confirmatory test DILATED RETINAL EXAM [facility] Start: 2016 PNEUMOCOCCAL: 65+ (1 - PCV) PNEUMOCOCCAL: 65+ (1 - PCV) [facility] Start: 2011 RSV patients and/or patients aged 60+ years (1 - 1-dose 60+ series) RSV patients and/or patients aged 60+ years (1 - 1-dose 60+ series) [facility] Start: 2011 RSV Vaccine (1 - 1-dose 60+ series) RSV Vaccine (1 - 1-dose 60+ series) [facility] Start: 2001 SHINGRIX VACCINE (1 of 2) SHINGRIX VACCINE (1 of 2) [facility] Start: 2001 Zoster Vaccines (1 of 2) Zoster Vaccines (1 of 2) [facility] Start: 1996 COLOGUARD (FIT-DNA) COLOGUARD (FIT-DNA) [facility] Start: 1996 Colonoscopy COLONOSCOPY [facility] Start: 1996 COLORECTAL CANCER SCREENING COLORECTAL CANCER SCREENING [facility] Start: [address] COLONOGRAPHY [facility] Start: 1996 FECAL OCCULT BLOOD FECAL OCCULT BLOOD [facility] Start: 1996 Screening for malignant neoplasm of colon [facility] Start: 1996 SIGMOIDOSCOPY SIGMOIDOSCOPY [facility] Start: 1973 DTaP/Tdap/Td Vaccines (1 - Tdap) DTaP/Tdap/Td Vaccines (1 - Tdap) [facility] Start: 1970 Urine microalbumin profile [facility] Start: 1970 Urine screening for protein Diabetes: Urine Protein Screening [facility] Start: 1969 Anxiety Screening Anxiety Screening [facility] Start: 1969 Depression Screening Depression Screening [facility] Start: 1969 HEPATITIS C SCREENING HEPATITIS C SCREENING [facility] Start: 1969 Hepatitis C screening Hepatitis C Screening [facility] Start: 1963 Adult depression screening assessment DEPRESSION SCREENING [facility] Start: 1961 Diabetic foot examination Diabetes: Foot Exam [facility] Start: 1961 Glaucoma screening Diabetes: Retinopathy Screening [facility] Start: 1957 Pneumococcal Vaccine: 65+ Years (1 of 2 - PCV) Pneumococcal Vaccine: 65+ Years (1 of 2 - PCV) [facility] Start: 02-08-1952 COVID-19 VACCINE (#1) COVID-19 VACCINE (#1) [facility] Start: 1951 ABDOMINAL AORTIC ANEURYSM SCREENING ABDOMINAL AORTIC ANEURYSM SCREENING [facility] Start: 1951 Abdominal aortic aneurysm screening Abdominal Aortic Aneurysm Screening [facility] Start: 1951 Hemoglobin A1c measurement Diabetes: Hemoglobin A1C [facility] Start: 1951 Lipid panel Lipid Panel [facility] Start: 1951 Medicare Annual Wellness Visit Medicare Annual Wellness Visit (AWV) [facility] Start: 1951 Screening for malignant neoplasm of colon [facility] Start: 1951 Thyroid stimulating hormone measurement TSH Level [facility] Comprehensive metabo lic 2000 panel - Serum or Plasma [facility] Patient Education Colon polyps D iverticulosis (DC) [facility] Work Phone: US Thyroid gland US thyroid Imag ing Routine Hypopituitarism (Multi) Hypogonadism male Hyperparathyroidism (Multi) Hyperprolactinemia (Multi) Type 2 diabetes mellitus without complication, with long-term current use of insulin (Multi) Thyroid nodule Ordered: 05/07/2024 [facility] Work Phone: Comment on above: Ordered: 05/07/2024 XR Abdomen Single view [facility] Immunizations Immunization Date Immunization Notes Care Provider Fa cili 08-21-2024 influenza virus vacc ine, unspecified formulation Henrry Johnson MD Work Phone: [facility] 10-12-2023 Influenza vaccine, quadrivalent, adjuvanted Joseluis Quiroz MD Work Phone: [facility] 10-12-2023 influenza virus vacc ine, unspecified formulation Henrry Johnson MD Work Phone: [facility] 08-15-2022 Fluzone High-Dose Quadrivalent 0.7 ML Intramuscular Suspension Prefilled Syringe Cabrera Dupont Work Phone: [facility] 09-06-2021 Fluad Quadrivalent 0 .5 ML Intramuscular Prefilled Syringe Cabrera Dupont Work Phone: [facility] 01-18-2021 Neva COVID-19 Vac cine 0.5 ML Intramuscular Suspension Cabrera Dupont Work Phone: [facility] 09-08-2020 Fluad Quadrivalent 0 .5 ML Intramuscular Prefilled Syringe Carbera Dupont Work Phone: [facility] 08-24-2020 influenza, seasonal, injectable Cabrera Dupont Work Phone: [facility] 08-24-2019 Seasonal trivalent influenza vaccine, adjuvanted, preservative free Cabrera Dupont Work Phone: [facility] 08-04-2018 influenza, injectabl e, quadrivalent, preservative free Cabrera Dupont Work Phone: [facility] 08-04-2018 influenza virus vacc ine, unspecified formulation Rickey Osborne MD Work Phone: [facility] 07-19-2018 influenza, high dose seasonal, preservative-free Cabrera Dupont Work Phone: [facility] 08-21-2017 influenza, high dose seasonal, preservative-free Cabrera Dupont Work Phone: [facility] 08-12-2017 pneumococcal polysaccharide vaccine, 23 valent Cabrera Dupont Work Phone: [facility] 08-12-2017 zoster vaccine recombinant Cabrera Dupont Work Phone: [facility] 08-21-2016 influenza, high dose seasonal, preservative-free Cabrera Dupont Work Phone: [facility] 2015 influenza, seasonal, injectable, preservative free Cabrera Dupont Work Phone: [facility] 08-04-2014 influenza, seasonal, injectable Cabrera Dupont Work Phone: [facility] 08-04-2014 pneumococcal polysaccharide vaccine, 23 valent Cabrera Dupont Work Phone: [facility] 08-04-2014 zoster vaccine, live Cabrera Dupont Work Phone: [facility] Payers Date Payer Category Payer Self-pay [id number] 2023 Medicare (Managed Care) [employer] [id number] 2018 Medicare [id number] 2013 Unknown 1959 Self-pay [id number] 1959 Unknown [id number] 1951 Unknown [id number] 2.840.1.535264.3.579. 2.356 1951 Unknown [id number] 2.840.1.318025.3.579. 2.356 1951 Unknown [id number] 2.16.840.1.563200.3.579. 2.593 1951 Unknown [id number] 2.840.1.237081.3.579. 2.593 1951 Unknown [id number] 2.16.840.1.959857.3.579. 2.593 1951 Unknown [id number] 2.16.840.1.134447.3.579. 2.593 1951 Unknown [id number] 2.16.840.1.051940.3.579. 2.593 1951 Unknown [id number] 2.16.840.1.103738.3.579. 2.593 1951 Unknown [id number] 2.16.840.1.652422.3.579. 2.593 1951 Unknown [id number] 2.16.840.1.152613.3.579. 2.1259 1951 Unknown [id number] 2.16.840.1.075663.3.579. 2.1259 1951 Unknown [id number] 2.16.840.1.571012.3.579. 2.1259 1951 Unknown [id number] 2.16.840.1.650189.3.579. 2.1259 1951 Unknown [id number] 2.16.840.1.396711.3.579. 2.1259 1951 Unknown [id number] 2.16.840.1.307484.3.579. 2.1259 Unknown [id number] 2.16.840.1.126321.3.579. 2.593 Unknown [facility] [id number] Unknown [id number] [id number]. 2.531 Social History Date Type Detail Facility Start: 01-21-2019 End: 02-11-2025 Former smoker Former smoker YF-Jxkmaqvwljhby-IBZ [place] [address] Work Phone: Start: 06-30-2013 End: 07-09-2024 Tobacco smoking status NHIS Ex-smoker [facility] Start: 11-11-1966 End: 12-12-1992 History of tobacco use Current smoker [facility] Start: 11-11-1966 End: 12-12-1992 History of tobacco use Cigarette Smoker [facility] Start: 06-30-2013 End: 07-09-2024 Tobacco use and exposure Smokeless tobacco non-user [facility] Start: 01-21-2019 Alcohol intake Current non-dr esl tutor of alcohol (finding) [facility] Start: 1950 Sex Assigned At Not on file [facility] Start: 01-21-2019 End: 02-11-2025 Sex Assigned At [facility] [employer] Other Start: 1950 Sex Assigned At Male F [facility] [facility] National Score (1-100), lower number is lower risk Not on file [facility] Tobacco smoking status COIS Tobacco smoking consumption unknown [facility] Work Phone: Start: 07-14-2024 End: 02-11-2025 Alcoholic beverage intake Lifetime non-drinker (finding) [facility] Sex Male (finding) [facility] Medical Equipment Procedure Code Equipment Code Equipment Original Text Equipment Identifier Dates [id number], [id number], [id number] Start: 09-15-2018 Comment on above: Use as [...] Date & Type Note Facility 04-20-2025 Note [place] Electrophysiology Consult Note [facility] Reason for Consultation: Atrial fibrillation, s/p [...] on 10/15 and he went to the [facility] emergency department was found to be in [...] Use: Not At Risk (12/24/2019) [facility] Frequency of Alcohol Consumption: Never Average [...] on file Intimate Partner Violence: Unknown (05/05/2024) [place] Safety & Environment Fear of Current or [...] to Visit Me (more content not included)... [facility] 02-11-2025 History of Present illness Narrative Images [...] 12:10 PM EDT documented in this encounter [facility] 12-29-2024 History of Present illness Narrative Subjective Patient ID: Alexis Liang is a 74 y.o. male who presents for Thyroid Nodule (5 month ultrasound [facility] 12/23/24) Thyroid US shows a 4mm RT and 9mm LT nodule, compared to an 8mm RT nodule 6 mo ago. Family History Problem Relation Name Age of Onset Diabetes type II Mother Active Ambulatory Problems Diagnosis Date Noted Alzheimer's disease with late onset ([facility]) 06/27/2024 Dementia in other diseases classified elsewhere, unspecified severity, without behavioral disturbance, psychotic disturbance, mood disturbance, and anxiety ([facility]) 06/27/2024 History of ischemic stroke 06/27/2024 Personality change 06/27/2024 Pituitary mass ([facility]) 06/27/2024 Depression ([facility]) 06/27/2024 Memory impairment 06/27/2024 Abnormal stress test 04/28/2015 Acquired hypothyroidism ([facility]) 07/09/2024 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 Atrial flutter ([facility]) 11/28/2022 Carotid stenosis, bilateral 04/01/2024 Chronic systolic heart failure ([facility]) 11/15/2022 Constipation 07/09/2024 CVA (cerebral vascular accident) ([facility]) 10/26/2022 Diverticulosis of colon 07/09/2024 History of transient ischemic attack (TIA) 10/26/2022 Hypercalcemia 12/23/2012 Hyperlipidemia ([facility]) 07/09/2024 Hypertension ([facility]) 07/09/2024 Hypogonadism male 12/23/2012 Incontinence of feces with fecal urgency 07/09/2024 Paroxysmal atrial fibrillation ([facility]) 10/18/2022 Persistent atrial fibrillation (HCC) ([facility]) 10/16/2022 PFO (patent foramen ovale) 11/28/2022 Primary hyperparathyroidism ([facility]) 12/24/2019 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[facility]) 11/16/2009 Pure hypercholesterolemia ([facility]) 07/09/2024 Thyroid nodule ([facility]) 11/16/2009 Type 2 diabetes mellitus with hyperglycemia ([facility]) 07/09/2024 Coronary artery disease involving [place] coronary artery of [place] heart without angina pectoris ([facility]) 09/16/2024 Diabetes mellitus due to underlying condition with diabetic cataract ([facility]) 09/16/2024 Nonischemic cardiomyopathy ([facility]) 09/16/2024 Overweight (BMI 25.0-29.9) 12/29/2024 Type 2 diabetes mellitus without complication ([facility]) 09/24/2012 Vasovagal syncope 10/26/2022 Resolved Ambulatory Problems Diagnosis Date Noted Diarrhea 07/09/2024 Dietary counseling and surveillance 07/09/2024 Rotator cuff strain 06/16/2013 S/P ablation of atrial fibrillation 05/02/2023 Past Medical History: Diagnosis Date Afib ([facility]) CHF (congestive heart failure) ([facility]) Diabetes mellitus type II, controlled ([facility]) GERD (gastroesophageal reflux disease) Hypercholesterolemia ([facility] Hypogonadism in male Hypothyroid ([facility]) Stroke ([facility]) 2016 Past Surgical History: Procedure Laterality [...] annually if stable documented in this encounter [facility] 09-16-2024 Note [place] Cardiology - [facility] Subjective Gadiel Liang is a [...] in the mor (more content not included)... [facility] 07-14-2024 History of Present illness Narrative Subjective Patient ID: Alexis Liang is a 73 y.o. male who presents for Thyroid Nodule (Ultrasound 06/09/24. ) Pt has a long h/o thyroid nodules and a remote h/o parathyroidectomy. H/O prolactinoma tx medically. 05/3024 thyroid US shows a 1o2e5xs RT TR5 nodule. Pt's manager loan would like the nodule biopsied. Review of Systems All other systems reviewed and are negative. Family History Problem Relation Name Age of Onset Diabetes type II Mother Active Ambulatory Problems Diagnosis Date Noted Alzheimer's disease with late onset ([facility]) 06/27/2024 Dementia in other diseases classified elsewhere, unspecified severity, without behavioral disturbance, psychotic disturbance, mood disturbance, and anxiety (CMS/HCC) 06/27/2024 History of ischemic stroke 06/27/2024 Personality change 06/27/2024 Pituitary mass (CMS/HCC) 06/27/2024 Depression (CMS/HCC) 06/27/2024 Memory impairment 06/27/2024 Abnormal stress test 04/28/2015 Acquired hypothyroidism (CMS/HCC) 07/09/2024 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CMS/HCC) 02/23/2015 Atrial flutter (CMS/HCC) 11/28/2022 Carotid stenosis, bilateral 04/01/2024 Chronic systolic heart failure ([facility]) 11/15/2022 Constipation 07/09/2024 CVA (cerebral vascular accident) ([facility]) 10/26/2022 Diverticulosis of colon 07/09/2024 History of transient ischemic attack (TIA) 10/26/2022 Hypercalcemia 12/23/2012 Hyperlipidemia ([facility]) 07/09/2024 Hypertension ([facility]) 07/09/2024 Hypogonadism male 12/23/2012 Incontinence of feces with fecal urgency 07/09/2024 Paroxysmal atrial fibrillation ([facility]) 10/18/2022 Persistent atrial fibrillation (HCC) ([facility]) 10/16/2022 PFO (patent foramen ovale) 11/28/2022 Primary hyperparathyroidism ([facility]) 12/24/2019 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[facility]) 11/16/2009 Pure hypercholesterolemia ([facility]) 07/09/2024 Thyroid nodule ([facility]) 11/16/2009 Type 2 diabetes mellitus with hyperglycemia ([facility]) 07/09/2024 Resolved Ambulatory Problems Diagnosis Date Noted Diarrhea 07/09/2024 Dietary counseling and surveillance 07/09/2024 Rotator cuff strain 06/16/2013 S/P ablation of atrial fibrillation 05/02/2023 Past Medical History: Diagnosis Date Afib ([facility]) CHF (congestive heart failure) ([facility]) Diabetes mellitus type II, controlled ([facility]) GERD (gastroesophageal reflux disease) Hypercholesterolemia ([facility]) Hypogonadism in male Hypothyroid ([facility]) Stroke ([facility]) 2016 Past Surgical History: Procedure Laterality [...] sig growth found documented in this encounter [facility] 06-18-2024 Telephone encounter Note Summary: [place] Received a mail from [facility] with a notice on the Authorization for MRI, Brain, W/O Contrast Dated: 06/04/24 Status: Approve Service Requested: MRI, Brain, W/O Contrast Effective Dates: 06/04/2024 - 09/01/2024 Reference #: [id number] Uploaded into scan docs. Please allow time for upload. [facility] 06-18-2024 Miscellaneous Notes Summary: [place] Received a mail from [facility] with a notice on the Authorization for MRI, Brain, W/O Contrast Dated: 06/04/24 Status: Approve Service Requested: MRI, Brain, W/O Contrast Effective Dates: 06/04/2024 - 09/01/2024 Reference #: [id number] Uploaded into scan docs. Please allow time for upload. documented in this encounter [facility] 05-07-2024 History of Present illness Narrative [...] which included preparing to see the patient, [id number] patient care, completing clinical documentation, obtaining and [...] Mandie Osborne MD documented in this encounter [facility] Work Phone: 04-14-2024 Procedure note [facility] 10-29-2023 Evaluation note Encounter Date Diagnosis [...] improved w present med increase in dose. [facility] 11-03-2023 Evaluation note* Encounter Date Diagnosis Assessment Notes Treatment Notes Treatment Clinical Notes Sep, Anxiety (ICD-10 - F41.9) [facility] 10-31-2023 Evaluation note* Encounter Date Diagnosis Assessment Notes Treatment Notes Treatment Clinical Notes Aug, Anxiety (ICD-10 - F41.9) [facility] 10-09-2023 Evaluation note* Encounter Date Diagnosis [...] from 25mg to 50mg for better results. [facility] 11-30-2022 Chief complaint Narrative - Reported* [...] Patient presents for a follow up visit. [facility]ke[facility] [place] [address] Work Phone: [phone]) 527-575408-22-2022 Miscellaneous Notes* Telephone Encounter - Janee Hughes - 07/02/2022 2:37 PM EDT Received Thyroid US report from [facility]. Indexed into chart. [facility] Chief complaint Narrative - Reported* An [...] follow-up for hypothyroidism, pituitary, and diabetes today. [facility] [address] Work Phone: Evaluation noteNo [employer] Other Evaluation note* Diagnosis Onset Date Resolution Status Bronchitis noneactive Constipation acute Incontinence of feces with fecal urgency acute [facility] Work Phone: Evaluation note* Diagnosis Hypopituitarism (Multi)- Primary Panhypopituitarism Hypogonadism male Other testicular hypofunction Hyperparathyroidism (Multi) Hyperparathyroidism, unspecified Hyperprolactinemia (Multi) Other and unspecified anterior pituitary hyperfunction Type 2 diabetes mellitus without complication, with long-term current use of insulin (Multi) Thyroid nodule Nontoxic uninodular goiter documented in this encounter [facility] Work Phone: Evaluation note* Diagnosis Thyroid [...] circulatory complications acute May 24, 2025 9:50am [facility] Work Phone: History and physical note Author Merly Paul [facility] April 14, 2024 11:26am Note Date/Time April 14, 2024 11:26 am [facility] ENTER [address] [place] [address] Gastroenterology H&P Signed Patient: Gadiel Liang MR#: [id number] : 1950 Acct:[id number] Age/Sex: 73 / M Adm Date: 4 Loc: Room: Type: [facility] Attending Dr: Merly Paul DO Copies [...] signed by Merly Paul DO> 04/14/24 [address] [facility] Work Phone: History general Narrative - Reported* Type Description Date Medical History Diabetes mellitus Medical History Hyperlipemia Medical History Acid reflux Medical History Hiatal hernia Medical History Pituitary tumor Surgical History knee surgery Surgical History shoulder surgery Surgical History thyroid nodule removed Hospitalization History hematoma related to fall 2011 Hospitalization History TIA 03/2020 Hospitalization History DEHYDRATION 09/2020 [facility] History of Present illness Narrative* This [...] * -Most recent [place] on 12/2019 in [place], records not available * -Due for US [...] on file * Occupational History * Occupation: [employer] * Employer: [employer] * Comment: retired * Tobacco Use * Smoking status: Former Smoker * Years: 16.00 * Quit date: 12/12/1992 * Years since quittin.1 * Smokeless tobacco: Never Used * Substance and Sexual Activity * Alcohol use: No * Drug use: No * Sexual activity: Not on file * Other Topics * Concerns: * Not on file * Social History Narrative * resides in [place] 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 [facility]iailh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 LW-Ymhvutjrvxpeg-[facility] [address] Work Phone: reason for referral (narrative)No reason for referral information availableUniversity Hospitals St. [facility] Medical Center Work Phone: Summary Purpose Family History Unknown [...] [place] [address] [address] [facility] [place] [address] Referral ID Status Reason Start Date Expiration Date Visits Requested Visits Authorized [id number] Pending Review Perform Procedure 05/07/2024 05/07/2025 1 1 Specialty Diagnoses / Procedures Referred By Saeid vences Referred To Contact Radiology Diagnoses Hypopituitarism (Multi) Hypogonadism male Hyperparathyroidism (Multi) Hyperprolactinemia (Multi) Type 2 diabetes mellitus without complication, with long-term current use of insulin (Multi) Thyroid nodule [place] [address] [facility] [place] [address] Referral ID Status Reason Start Date Expiration Date Visits Requested Visits Authorized [id number] Authorized Perform Procedure 05/07/2024 05/07/2025 1 1 Additional Source Comments (unrecognized sect ion and content) No Status Records FoundNo Status Records FoundNo Status Records FoundNo Status Records FoundNo Status Records FoundNo Status Records FoundNo Status Records FoundNo Status Records Found INFORMATION SOURCE (unrecogn ized section and content) DATE CREATED AUTHOR 05/07/2018 [facility] DATE CREATED AUTHOR AUTHOR'S ORGANIZ ATION 10/11/2022 [facility] DATE CREATED AUTHOR AUTHOR'S ORGANIZ ATION 10/11/2022 [employer] DATE CREATED AUTHOR AUTHOR'S ORGANIZ ATION 03/04/2023 [facility] DATE CREATED AUTHOR AUTHOR'S ORGANIZ ATION 04/22/2024 [facility] DATE CREATED AUTHOR AUTHOR'S ORGANIZ ATION 06/21/2024 [facility] DATE CREATED AUTHOR AUTHOR'S ORGANIZ ATION 02/14/2025 [facility] EPIC DATE CREATED AUTHOR AUTHOR'S CORTES MEDRANO 06/27/2025 [facility] Source Comments (unrecognize d section and content) In the event this informatio n is protected by the Federal Confidentiality of Alcohol and Drug Abuse Patient Records regulations: The Federal rules restrict any use of the information to criminally investigate or prosecute any alcohol or drug abuse patient.[facility] the event this information is protected by the Federal Confidentiality of Alcohol and Drug Abuse Patient Records regulations: The Federal rules restrict any use of the information to criminally investigate or prosecute any alcohol or drug abuse patient.[facility] Reason for Visit (unrecogniz ed section and content) Reason Comments Received Outside Medical Records Receive d Thyroid US report from [facility]. Indexed into chart. Reason Comments Insurance Authorization [place] Reason Comments Follow-up Pituitary Problem Reason Comments Thyroid Nodule Ultrasound 06/09/24. Reason Comments Thyroid Nodule 5 month ultrasound T 12/23/24 Reason Comments Osteoarthritis Specialty Diagnoses / Procedures Referred By Saeid vences Referred To Contact Orthopaedic Surgery Diagnoses Primary osteoarthritis of right hip Isaura Garber, DIRECTOR OF IN SERVICE EDUCATION [address] [place] [address] Phone: tel: fax: Ansley Chaves, DO [address] [facility] [address] [place], [place] Phone: tel: fax: Referral ID Status Reason Start Date Expiration Date V isits Requested Visits Authorized [id number] Closed Specialty Services Required 02/01/2025 07/31/2025 1 [...] May 24, 2025 End: May 24, 2025 Program Writer Relationship Specialty Start Date End Date Cabrera [...] Other Provider Active Start: April 14, 2024 Program Writer Relationship Specialty Start Date End Date Cabrera Dupont MD PCP - General Family Medicine 01/21/19 Program Writer Relationship Specialty Start Date End Date Cabrera Dupont MD [address] [place] [facility] [place] [facility] [address] PCP - General 11/30/20 Program Writer Relationship Specialty Start Date End Date Joseluis Quiroz MD [address] [facility] [place] [phone] PCP - General Family Medicine 03/23/24 Program Writer Relationship Specialty Start Date End Date Joseluis Quiroz MD [address] [facility] [place] [address] PCP - General Family Medicine 03/23/24 Program Writer Relationship Specialty Start Date End Date Joseluis Quiroz MD [address] [facility] [place] [phone] PCP - General Family Medicine 03/23/24 Program Writer Relationship Specialty Start Date End Date Joseluis Quiroz MD [address] [facility] [place] [address] PCP - General Family Medicine 03/23/24 Program Writer Relationship Specialty Start Date End Date Joseluis Quiroz MD [address] [facility] [place] [phone] PCP - General Family Medicine 03/23/24 Program Writer Relationship Specialty Start Date End Date Joseluis Quirzo MD [address] [facility] [place] [phone] PCP - General Family Medicine 03/23/24 Program Writer Relationship Specialty Start Date End Date Joseluis [...] BE BASED ON THE PRIMARY CLINICAL RECORDS. [facility] [employer] [facility]. provides no warranty or guarantee of the accuracy or completeness of information in this document.
--- OUTSIDE RECORDS SUMMARY | 2025-07-13 06:45 | XMS_ITS | Encounter Summary ---
Author Organization [facility] Address [address] [place] [address] Care Team Providers Care Continuous Pickling Line Pickler Name Role Phone Ric Ross MD Unavailable [phone] Haritha Argueta MD Primary Care Provider [phone] Haritha Argueta MD Primary Care Provider [phone] Encounter Details Date Type Department Care Team (Late st Contact Info) Description 03/23/2022 Abstract [facility] [address] [place] [phone] Ever Oropeza DO [address] [place] [address] Social History Tobacco Use Types [...] on filedocumented in this encounter Care Teams Continuous Pickling Line Pickler Relationship Specialty Start Date End Date Ric Ross MD [address] [id number] PCP - [facility] 11/11/21 05/10/22 Haritha Argueta MD [address] [address] PCP - General Family Medicine 03/23/24 06/29/25 Haritha Argueta MD [address] [place] [phone] PCP - General Family Medicine 06/30/25 documented as of this encounter
--- OUTSIDE RECORDS SUMMARY | 2025-07-13 06:45 | XMS_ITS | Encounter Summary ---
Author Organization [facility] Address [address] [place] [address] Care Team Providers Care Building Admin Name Role Phone Haritha Argueta MD Primary Care Provider Reason for Visit * Reason Comments Med Refill Encounter Details Date Type Department Care Team ([facility] st Contact Info) Description 12/08/2023 Refill [facility] [address] [place] [address] Janee Rayo, TIP BANDER [address] [place] [phone] Acute on chronic systolic congestive heart failure [...] Description 07/16/2025 1:40 PM EDT Office Visit [facility] [address] [place] [address] Rc Starr, TIP BANDER [address] [place] [address] documented as of this encounter Visit Diagnoses Diagnosis Acute on chronic systolic congestive heart failure (CMS/HCC) documented in this encounter Care Teams Building Admin Relationship Specialty Start Date End Date Haritha Argueta MD [address] [facility] [address] PCP - General 10/16/22 documented as of this encounter
--- OUTSIDE RECORDS SUMMARY | 2025-07-13 06:45 | XMS_ITS | Clinical Summary ---
Author Organization [facility] Address [address] [place] [address] Phone Care Team Providers Care Switch Technician Name Role Phone Cabrera Dupont MD Primary Care Provider [phone] Allergies No known active allergies Medications Eliquis [...] (Glucophage) 500 mg tablet Take by mouth. Activ e BD Ultra-Fine Mini Pen Needle 31 gauge [...] 5 Active levothyroxine (Synthroid, Levoxyl) 75 mcg tabletIndication s:Hypopituitaris m (Multi),Hypogona dism male,Hyperparath yroidism (Multi),Hyperpro lactinemia (Multi),Type 2 diabetes mellitus without complication, with long-term current use of insulin Take 1 tablet (75 mcg) by mouth once daily. 90 tablet 3 5 Active Encounters Date Type Department Care Team Description 07/12/2025 [place] [address] [place] [address] Mandie Osborne MD Hypopituitarism (Multi); Hypogonadism male; Hyperparathyroidism (Multi); Hyperprolactinemia (Multi); Type 2 diabetes mellitus without complication, with long-term current use of insulin 06/11/2025 [facility] [address] [place] [id number] Mandie Osborne MD Hypopituitarism (Multi); Hypogonadism male; Hyperparathyroidism (Multi); Hyperprolactinemia (Multi); Type 2 diabetes mellitus without complication, with long-term current use of insulin 05/12/2025 [facility] [address] [place] [id number] Mandie Osborne MD Hypopituitarism (Multi); Hypogonadism male; [...] 60-74 years 1-dose series) 2011 COVID-19 Vaccine (1 - 2023-2 5 season) 2025 Influenza Vaccine (#1) 2025 HIB Vaccines Aged [...] MEDICARE ADVANTAGE ANTHEM MEDICARE ADVANTAGE Care Teams Switch Technician Relationship Specialty Start Date End Date Cabrera Dupont MD [address] [facility] [place] [address] [facility] - General 11/30/20
--- NOTE | 2025-07-13 07:00 | NM_ITS ---
Patient Name: SANTA SMITH MR#: [id number] : 1950 Exam Date: 07/13/2025 Ordering Doctor: MILANA TURCIOS RADIOLOGY REPORT PROCEDURE: NM ROSA MARIA PERF SPECT REST STR COMPARISON: None. INDICATIONS: DYSPNEA ON EXERTION, ABNORMAL EKG TECHNIQUE: Exam Description: Stress/Rest one day protocol gated SPECT Rest Imagin.7 mCi Tc-99m Cardiolite IV on 07/13/2025 Stress Imaging 30.2 mCi Tc-99m Cardiolite IV on 07/13/2025 Exercise Protocol: 0.4 mg Lexiscan given IV Heart Rate (bpm): Rest: 57 Max: 74 PMHR: 50 Blood Pressure: Rest: 122/70 Max: 122/70 Symptoms: Rest and peak stress ECG findings were pending, and the exercise portion of the study was pending per attending physician [facility]. For more details, please see separate cardiac stress test report. FINDINGS: QUALITY OF STUDY: Good PERFUSION DEFECT: LOCATION: N/A SIZE: N/A SEVERITY: N/A TYPE: N/A WALL MOTION: Normal wall motion LV SIZE: 90 mL. TID / TCD: 0.8 LVEF: Calculated EF 62%. SUMMARY: Myocardial perfusion imaging study is normal CONCLUSION: 1. Myocardial perfusion is normal with soft tissue attenuation 2. Global left ventricular systolic function is normal; EF 62% 3. No significant transient ischemic dilatation Dictated by: Warren Henderson M.D. on 07/14/2025 at 09:57 Approved by: Warren Henderson M.D. on 07/14/2025 at 09:59
[2025-07-13] MEDS: REGADENOSON 0.4 MG/5 ML SYRINGE IV (08:46)
--- NOTE | 2025-07-13 08:46 | PC.NURSE ---
Nursing Note Cardiac Stress Test Reviewed: Medication, allergies and patient history reviewed. Stress Test: [ x]? Patient tolerated stress test well. [ ]? Patient unable to tolerate walking on treadmill. Switched to Lexiscan stress test. [x ]? No chest pain noted per patient [ ]? Chest pain that resolved prior to leaving stress lab. [x ]? No dyspnea noted. [ ]? Dyspnea that resolved prior to leaving stress lab. [ x]? Patient left stress lab asymptomatic and hemodynamically stable. [ ]? Patient taken to the Emergency Room due to non-resolving symptoms following stress test. [ ]? Patient achieved target heart rate. [ ]? Patient unable to achieve target heart rate. [ ]? Aminophylline administered as reversal agent to Lexiscan (Regadenoson). [ ]? Nitro administered. Nursing Comments: Procedure explained, pt denied questions. Lexiscan administered. Stress test completed. Pt denied any chest pain or shortness of breath. Pt stated that he had mild generalized heaviness that went away within 2 minutes. Pt denies any other symptoms. Pt taken to cafeteria for breakfast.
--- NOTE | 2025-07-13 17:13 | PM.STRESS ---
Stress Test Stress Test Allergies Allergy/AdvReac Type Severity Reaction Status Date / Time No Known Drug Allergies Allergy Verified 07/07/25 14:25 Requesting physician: MILANA TURCIOS Procedure: Lexiscan stress test General Information: Reason for Stress Test: Dyspnea on exertion Cardiac History and Risk Factors: Hypertension, hyperlipidemia, diabetes mellitus type 2, thyroid disorders, stroke Resting 12 - Lead Electrocardiogram: Sinus bradycardia with underlying right bundle branch block, P wave that is very poorly appreciable, nonspecific ST-T wave changes noted on the inferior leads Occasional PVC of outflow tract origin noted at baseline Stress Test: Protocol: Vasodilator stress test Blood Pressure Response: At baseline the heart rate was 57 beats a minute and blood pressure 122/70 mmHg and with infusion of vasodilator increase to 74 bpm with blood pressure of 122/70 mmHg achieving 50% of expected heart rate Rhythm: Sinus rhythm ST - Response: No ischemic evidence seen Patient Response: Mild generalized heaviness that resolved in 2 minutes Interpretation: 1. Baseline sinus bradycardia with P waves that is poorly appreciable with underlying right bundle branch block and evidence of outflow tract PVCs 2. No EKG evidence of acute ischemia seen with vasodilator 3. PVCs noted 4. Nuclear perfusion study to be reported separately
== END 2025-07-13 06:43 | disposition home or self-care (01) ==
LOC: NM 06:42
PROVIDERS: PCP Family Medicine; Visit Provider Internal Medicine Cardiovascular Disease
DX: R06.09 Other forms of dyspnea (principal); R94.31 Abnormal electrocardiogram [ECG] [EKG]
CPT/HCPCS: 78452; 93017; A9500; J2785

== ENCOUNTER 2025-08-31 12:02 | Outpatient (OUT) | payer MEDICARE, SELFPAY ==
--- OUTSIDE RECORDS SUMMARY | 2025-08-31 12:09 | XMS_ITS | CCD ---
Author Organization [facility] Care Team Providers Care Taxicab Driver Name Role Phone PHYSICIAN, DEFAULT Unavailable Unavailable PHYSICIAN, DEFAULT Unavailable Unavailable PHYSICIAN, DEFAULT Unavailable Unavailable PHYSICIAN, DEFAULT Unavailable Unavailable Cabrera Dupont Unavailable Cabrera Dupont MD Primary Care Provider Unavailable Unavailable Dr. Cabrera Dupont Primary Care Unavailab delilah Osborne, Dr. Mandie Piper Attending Syed Murrayu, Dr. Mandie Piper Referring Unavai lable Self, Referral Referring Unavailable Hatipoglu, Dr. Mandie Piper Attending Syed Dupont, Dr. Cabrera Gaspar Primary Care Unavailab delilah QUIROZ, DR JOSELUIS Austin Primary Care Unavailable YEARTYTONY Attending Unavailable YEARTYTONY Admitting Unavailable MISC, DR LOZADA Attending Unavailable LODI, DR GEORGIE Erwin Consulting Unavailable QUIROZ, DR JOSELUIS Austin Primary Care Unavailable MISC, DR LOZADA Admitting Unavailable MISC, DR LOZADA Consulting Unavailable TONA ROSENBERG Admitting Unavailable QUIROZ, DR JOSELUIS Austin Primary Care Unavailable SHAKIRATONA Shepherd Attending Unavailable SHAKIRATONA Consulting Unavailable MAUREENJANEE Consulting [...] OZ, RY Consulting Unavailable Joseluis Quiroz Unavailable MD Joseluis Quiroz Primary Care Provider DO Merly Paul Attending Provider Cabrera Dupont MD Primary Care Provider [phone] Cabrera Dupont MD Primary Care Provider Joseluis Quiroz MD Primary Care Provider RAPHAEL SPRINGER Attending Unavailable HENRRY JOHNSON Attending Unavailable JOSELUIS QUIROZ Referring Unavailable HENRRY JOHNSON Attending Unavailable ISAURA GARBER Attending Unavailable ISAURA GARBER Referring Unavailable ANSLEY CHAVES Attending Unavailable ISAURA GARBER Referring Unavailable Joseluis Quiroz MD Primary Care Provider Milan Hernandez MD Attending Provider Joseluis Quiroz MD Attending Provider Joseluis Quiroz MD Primary Care Provider [phone] Joseluis Quiroz MD Primary Care Provider Gamal Ellis DO Attending Provider Norberto Zuniga MD Attending Provider Merly Luo CMA Attending Provider Unavaila MILAN Ortiz Attending Unavailable TONA ROSENBERG Attending Unavailable ZOILA ROSARIO Attending Unavailable Joseluis Quiroz MD Referring Provider [phone] Alfredo MALCOLM-CRosaura Attending Provider Rosaura Fuentes Admitting Unavailable Rosaura Fuentes Attending Unavailable Joseluis Quiroz Referring Unavailable Joseluis Quiroz Primary Care Unavailable Allergies Allergy ClassificationReported Allergen(s)Allergy TypeDate of OnsetReaction(s) Facility (2 sources)LisinoprilDrug Nmyywnp54-03-0846Rdgob: See CommentsAv[facility] Work Phone: (1 source)LisinoprilPropensity to adverse [id number] Work Phone: Medications Current Medications MedicationDrug Class(es)DatesSig (Normalized)Sig (Original)[id number] 200 actuat albuterol 0.09 mg/actuat metered dose inhaler (11 sources)beta2-Adrenergic AgonistStart: 13-02-2159lbrr 2 puff(s) by inhalation every four hoursalbuterol HFA 90 mcg/act inhaler Inhale 2 puffs every 4 (four) hours if needed 03/08/2024 ActiveAmiodarone (1 source)AntiarrhythmicAmiodarone ActiveAscorbic Acid (2 sources)Vitamin CASCORBIC ACID (VITAMIN C ORAL) Take by mouth once daily. 0 ActiveComment on above:Take by mouth once daily.Ascorbic Acid / Beta Carotene / cuprous oxide / Lutein / sodium selenate / Vitamin E / Zinc Oxide (20 sources)Vitamin CStart: 12-58-0369Kxrymji Adult 50+ Ocuvite Adult 50+( Oral 1 capusle every other day ) Active -Hx Entry Oral every other day for 0 *Pick strength-form from avVenta for eRX* Jul, ActiveOcuvite TABS TAKE 1 TABLET DAILY. Quantity: 0 Refills: 0 Ordered: 30-Nov-2020 DO Activeaspirin 81 mg oral tablet (4 sources)Platelet Aggregation Inhibitor, Nonsteroidal Anti-inflammatory Drug Start: 28-75-7366cznp 1 tablet by mouth once dailytake 1 tablet by mouth once dailyaspirin, enteric coated (ASPIRIN, ENTERIC COATED) 81 mg EC tablet Take 81 mg by mouth once daily. 0ActiveComment on above:Take 81 mg by mouth once daily. BD Pen Needle Mini U/F (7 sources)BD Pen Needle Mini U/F BD Pen Needle Mini U/F , 2 (two) Injection Injection as directed # 2, 11/16/2021, Ref. x1. Active as directed for 90 days patient takes 2 injections daily ActiveBlood-Glucose Sensor (Dexcom G7 Sensor) device (2 sources)Start: 38-66-1106Ddfyo-Glucose Sensor (Dexcom G7 Sensor) device Active 0 .Route 3 July 21, 2025 12:00am As directedBlood- Glucose,Engineering Psychologist,Cont (Dexcom G7 Engineering Psychologist) misc (2 sources)Start: 76-03-1042Nddge-Glucose,Engineering Psychologist,Cont (Dexcom G7 Engineering Psychologist) misc Active 0 .Route July 21, 2025 12:00am As directedcarvedilol 6.25 mg oral tablet (20 sources)alpha-Adrenergic Veronica, beta-Adrenergic BlockerStart: 02-26-2024 take 1 tablet by mouth twice dailyCitracal Plus (5 sources)Citracal Plus ActiveCYANOCOBALAMIN, VITAMIN B-12, (VITAMIN B-12 ORAL) (2 sources)CYANOCOBALAMIN, VITAMIN B-12, (VITAMIN B-12 ORAL) Take by mouth once daily. 0 ActiveComment on above:Take by mouth once daily.dapagliflozin 10 mg oral tablet (20 sources)Sodium-Glucose Cotransporter 2 InhibitorStart: 89-73-4816wmtc 1 tablet by mouth once dailyfurosemide 40 mg oral tablet (12 sources)Loop DiureticStart: 04-23-2025 End: 28-04-5567vojf 1 tablet by mouth once daily as needed End: 99-46-5283thvh 1 tablet by mouth once daily for edemafurosemide (Lasix) 40 MG tablet TAKE 1 TABLET BY MOUTH DAILY FOR FLUID RETENTION DIRECTED 025 Discontinued (Therapy completed)3 ml insulin glargine 100 unt/ml pen injector (20 sources)Insulin AnalogStart: 05-03-2025 End: 40-81-6219Veabv: 80-09-9132Cgqpoo Solostar U-100 Insulin 100 unit/mL (3 mL) pen Indications: Hypopituitarism (Multi) , Hypogonadism male , Hyperparathyroidism (Multi) , Hyperprolactinemia (Multi) , Type 2 diabetes mellitus without complication, with long-term current use of insulin (Multi) Inject 35 Units under the skin oncedaily in the morning. 15 mL 11 05/07/2024 ActiveStart: 03-31-2024 End: 78-14-2636Ysdxlji Glargine (Lantus Solostar U-100 Insulin) 100 unit/mL (3 mL) insulin pen Discontinued 35 UNIT SUBCUT Every morning March 31, 2024 12:00am May 03, 2025 10:52amStart: 78-21-4719txhpzxt glargine (LANTUS SOLOSTAR U-100 INSULIN) 100 unit/mL (3 mL) INJECT 50 UNITS UNDER THE SKIN TWICE A DAY 45 mL 1 04/13/2020 Activeinject 30 [IU] by subcutaneous injection in the morning, then inject 15 [IU] by subcutaneous injection in the eveninginsulin glargine (Lantus) 100 UNIT/ML injection as directed Subcutaneous 30 units in AM 15 units inPM Active End: 21-06-6861Yyepoe Solostar U-100 Insulin 100 unit/mL (3 mL) pen Inject under the skin. 05/07/2024 Discontinued(Reorder)Lantus 30 Subcutaneous daily Active Lantus SoloStar 100 UNIT/ML Subcutaneous Solution Pen-injector INJECT 30 UNITS IN THE MORNING Quantity: 3 Refills: 3 Ordered: 10-Oct-2022 Mandie Osborne MD Activeinject 25 [IU] by subcutaneous injection in the morning, then inject 12 [IU] by subcutaneous injection at bedtimeLantus SoloStar 100 UNIT/ML Subcutaneous Solution Pen-injector Inject 25 units in the morning and 12 units at bedtime Quantity: 3 Refills: 3 Ordered: 21-Aug-2021 Mandie Osborne MD ActiveComment on above:INJECT 50 UNITS UNDER THE SKIN TWICE A DAYiv contrast (will be provided with radiology test) (2 sources)Start: 16-40-0506wc contrast (will be provided with radiology test) [...] exam is complete flush line and de-access accordingto line specific nursing protocol in the MR contrast administration guidelines link. 1 Each 1 01/21/2019 ActiveComment on above:MRI Pituitary Inject, intravenously, once for 1 dose. No IV access, insert saline lock prior to thebeginning of sedation, infusion, injection of imaging exam. Discontinue saline lock post exam. If Pt. has a central line or IVAD, may access for administration according to line specific nursing protocol. Once exam is complete flush line and de-access according to line specific nursing protocol in the MR contrast administration guidelines link.levothyroxine sodium 0.075 mg oral tablet (20 sources)l-ThyroxineStart: 12-86-1388Mbjls: 03-06-2024 End: 87-47-1220brsa 1 tablet by mouth once dailyLevothyroxine (Synthroid) 75 mcg tablet Discontinued 75 MCG PO Daily 90 March 20, 2024 1:31pm March 31, 2024 9:55amStart: 86-38-0621rwzf 0.5 tablet by mouth once dailylevothyroxine (SYNTHROID) 75 mcg tablet Indications: Thyroid disease Take 0.5 tablets by mouth oncedaily. 45 tablet 1 04/13/2020 ActiveLevothyroxine Sodium 75 MCG 1/2 tab once a day ActiveComment on above:Take 0.5 tablets by mouth once daily.metFORMIN hydrochloride 500 mg oral tablet (20 sources)BiguanideStart: 05-20-2024 End: 85-10-9182zhua 1 tablet by mouth once dailyStart: 03-06-2024 End: 85-13-8687lbsi 1 tablet by mouth once daily in the eveningMetformin 500 mg tablet Discontinued 500 MG PO Every evening March 06, 2024 12:00am April 14, 2024 10:49amStart: 78-80-4913zttZKKJFP HCl - 1000 MG Oral Tablet Quantity: 180 Refills: 0 Ordered: 20-Dec-2021 DO Start : 20-Dec-2021 ActiveStart: 52-96-1396lenc 1 tablet by mouth twice dailymetFORMIN HCl 500 MG metFORMIN HCl 500MG, 1 (one) Tablet Tablet two times daily # 60, 11/27/2021, No Refill. Active Oral nightly for 0 days Nov, ActiveStart: 74-85-3879mwvAFXPRN (GLUCOPHAGE) 500 mg tablet TAKE 2 TABLETS TWICE A DAY WITH MEALS 360 tablet 4 09/25/2019 Active metFORMIN (Glucophage) 1000 MG tablet Take 500 mg by mouth in the morning. Take with meals. ActiveComment on above:TAKE 2 TABLETS TWICE A DAY WITH MEALSMULTIVIT &MINERALS/FERROUS FUM (MULTI VITAMIN ORAL) (2 sources)MULTIVIT &MINERALS/FERROUS FUM (MULTI VITAMIN ORAL) Take by mouth once daily. 0 ActiveComment on above:Take by mouth once daily.rosuvastatin calcium 40 mg oral tablet (15 sources)HMG-CoA Reductase InhibitorStart: 48-38-4965szex 1 tablet by mouth once dailyspironolactone 25 mg oral tablet (20 sources)Aldosterone AntagonistStart: 62-09-4721Absye: 10-55-8630zoqz 12.5 mg by mouth once daily in the eveningSpironolactone Active 12.5 MG PO Every evening March 06, 2024 12:00amStart: 84-23-2486iidt 0.5 tablet by mouth in the morningspironolactone (Aldactone) 25 mg tablet TAKE 1/2 TABLET BY MOUTH IN THE MORNING 03/05/2024 Activespironolactone (Aldactone) 25 MG tablet Take by mouth Daily ActiveAldactone 25 MG 1/2 tablet once a day Znnmvm9827 mg testosterone 0.01 mg/mg topical gel (20 sources)AndrogenStart: 03-06-2024 End: 92-05-6664Eeeyo: 99-97-4665HjshzEex 50 MG/5GM(1%) AndroGel( 50 MG/5GM(1%) Transdermal daily ) Active -Hx Entry Transdermal daily for 0 *Reorder from avVenta for eRx and Interaction Alerts* Jul, ActiveStart: 11-30-2020 Testosterone 50 MG/5GM (1%) Transdermal Gel APPLY 1 PACKET ONE TIME DAILY DIRECTED Quantity: 90 Refills: 1 Ordered: 10-Oct-2022 Mandie Osborne MD Start : 30-Nov-2020 ActiveStart: 05-27-2020 End: 18-08-9677orgrpcxsmgry 1 % (50 mg/5 gram) gel in packet 1 packet (50 mg) once daily. 03/02/2024 05/07/2024 Discontinued (Reorder)Comment on above:APPLY CONTENTS OF 1 PACKET TO AFFECTED AREA ONCE DAILY DIRECTED Completed/Discontinued Medications MedicationDrug Class(es)DatesSig (Normalized)Sig (Original)apixaban 5 mg oral tablet (20 sources)Factor Xa InhibitorStart: 54-45-4816udsb 1 tablet by mouth every twelve hoursEliquis 5 mg tablet Take 1 tablet (5 mg) by mouth every 12 hours. 02/26/2024 ActiveStart: 01-28-2024 End: 83-64-1900hyet 1 tablet by mouth twice dailyApixaban (Eliquis) 5 mg tablet Discontinued 0 .ROUTE .COMPLEX 180 September 07, 2024 8:51pm March 16, 2025 1:27pm TAKE 1 TABLET BY MOUTH TWICE A DAYStart: 01-28-2024 End: 39-64-5157novu 1 tablet by mouth twice dailyApixaban 5 mg tablet Discontinued 5 MG PO Twice daily January 28, 2024 12:00am January 28, 2024 3:49 pmtake 1 tablet by mouth every twelve hoursEliquis 5 MG 1 tablet twice a day for 90 days Activeatorvastatin 20 mg oral tablet (20 sources)HMG-CoA Reductase InhibitorStart: 03-06-2024 End: 93-07-7414kvbc 1 tablet by mouth once daily at bedtimeAtorvastatin 20 mg tablet Discontinued 20 MG PO Daily at bedtime March 06, 2024 12:00am May 20, 2024 10:45amStart: 44-12-7589ehlc 1 tablet by mouth once daily at bedtime atorvastatin (LIPITOR) 10 mg tablet Take 1 tablet by mouth daily at bedtime. 0 01/21/2019 ActiveAtorvastatin Calcium 40 MG 1/2 tab once a day Activetake 1 tablet by mouth once dailyAtorvastatin Calcium 20 MG Oral Tablet TAKE 1 TABLET DAILY. Quantity: 90 Refills: 3 Ordered: 24-Apr-2022 Mandie Osborne MD Active Comment on above:Take 1 tablet by mouth daily at bedtime.24 hr buPROPion hydrochloride 150 mg extended release oral tablet (20 sources)AminoketoneStart: 03-06-2024 End: 88-28-4351eihj 1 tablet by mouth once dailyBupropion Hcl 150 mg tablet extended release 24 hr Discontinued 150 MG PO Daily April 21, 2025 1:20pm July 19, 2025 8:26amStart: 37-07-6344amrt 1 tablet by mouth every twelve hoursbuPROPion XL (Wellbutrin XL) 150 mg 24 hr tablet Take 1 tablet (150 mg) by mouth every 12 hours. 01/10/2024 ActiveStart: 35-19-6487oees 1 tablet by mouth every twenty-four hoursbuPROPion HCl ER (XL) 150 MG 1 tablet in the morning Oral Once a day *Pick strength-form from [facility] for eRX* Jul, ActiveStart: 83-59-0792arws 1 tablet by mouth twice dailybuPROPion HCl ER (XL) 150MG buPROPion HCl ER (XL) 150MG, 1 (one) Tablet Tablet two times daily # 180, 07/23/2022, Ref. x1. Active Oral two times daily for 0 *Pick strength-form from avVenta for eRX*Jul, ActiveStart: 95-42-9445jtzo 1 tablet by mouth twice dailybuPROPion SR (ZYBAN SR; WELLBUTRIN SR) 150 mg 12 hr tablet Take 1 tablet by mouth twice daily. 180 tablet 1 04/13/2020 ActivebuPROPion SR (Wellbutrin SR) 150 MG 12 hr tablet every 12 (twelve) hours Activetake 1 tablet by mouth twice dailybuPROPion HCl ER (XL) 150 MG TAKE 1 TABLET BY MOUTH TWICE A DAY Activetake 1 tablet by mouth once dailyWellbutrin SR 150 MG Oral Tablet Extended Release 12 Hour TAKE 1 TABLET EVERY 12 HOURS DAILY. Quantity: 0 Refills: 0 Ordered: 30-Nov-2020 DO ActiveComment on above:Take 1 tablet by mouth twice daily.cabergoline 0.5 mg oral tablet (20 sources)Ergot DerivativeStart: 04-13-2020 End: 96-45-2628xuqa 1 tablet by mouth every other dayCabergoline 0.5 mg tablet Discontinued 0.5 MG PO .qod March 06, 2024 12:00am December 18, 2024 9:27am Comment on above:Take one tablet every other dayCalcium Citrate (16 sources)Citracal TABS TAKE 1 TABLET TWICE DAILY. Quantity: 0 Refills: 0 Ordered: 30-Nov-2020 DO Activeclopidogrel 75 mg oral tablet (16 sources)P2Y12 Platelet Inhibitortake 1 tablet by mouth once dailyPlavix 75 MG Oral Tablet TAKE 1 TABLET DAILY. Quantity: 30 Refills: 6 Ordered: 30-Nov-2020 DO Activedocosahexaenoic acid 120 mg / eicosapentaenoic acid 180 mg oral capsule (16 sources)take 1 capsule by mouth once dailyFish Oil 1000 MG Oral Capsule Take one capsule daily Quantity: 0 Refills: 0 Ordered: 30-Nov-2020 DOActive doxycycline hyclate 100 mg oral capsule (4 sources)Tetracycline-class DrugStart: 03-06-2024 End: 63-87-3173deoy 1 capsule by mouth twice dailyDoxycycline Hyclate 100 mg capsule Discontinued 100 MG PO Twice daily 30 08March 06, 2024 12:00am March 18, 2024 10:40amescitalopram 10 mg oral tablet (20 sources)Serotonin Reuptake InhibitorStart: 06-10-2024 End: 50-01-2210spxj 1 tablet by mouth once dailyEscitalopram Oxalate 10 mg tablet Discontinued 0 .ROUTE .COMPLEX March 05, 2025 1:10pm June 14, 2025 2:03pm TAKE 1 TABLET BY MOUTH EVERY DAY FOR 30 DAYSStart: 08-19-2023 End: 22-00-7468gwlb 1 tablet by mouth once daily in the eveningEscitalopram Oxalate 10 mg tablet Discontinued 10 MG PO Every evening March 31, 2024 12:00am June 10, 2024 8:32am FreeTextSi tablet Orally Once a day; Note: Source Status: Taking; Refills: 3; Provider: Ellie Mg Eesomeprazole 40 mg delayed release oral capsule (20 sources)Proton Pump InhibitorStart: 06-10-2024 End: 78-95-0638vsaw 1 capsule by mouth once dailyEsomeprazole Magnesium 40 mg capsule,delayed release(DR/EC) Discontinued 0 .ROUTE .COMPLEX 2024 1:10pm June 14, 2025 2:03pm TAKE 1 CAPSULE BY MOUTH DAILYStart: 03-06-2024 End: 24-26-1032hzyz 1 capsule by mouth once dailyEsomeprazole Magnesium (Nexium) 40 mg capsule,delayed release(DR/EC) Discontinued 40 MG PO Daily 2023 8:39am June 10, 2024 8:32amesomeprazole (NexIUM) [address] capsule 2 capsules 1 (one) time each day at the same time Activetake 1 capsule by mouth once dailyesomeprazole 20 mg capsule Indications: Thyroid nodule , 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HCC) , Type II or unspecified type diabetes mellitus without mention of complication, uncontrolled , Hypogonadism male , Hypercalcemia Take 20 mg by mouth once daily. 0 ActiveComment on above:Take 20 mg by mouth once daily. hydrOXYzine hydrochloride 25 mg oral tablet (6 sources)Antihistaminetake 1 tablet by mouth at bedtime as neededhydrOXYzine HCl - 25 MG Oral Tablet TAKE 1 TABLET AT BEDTIME NEEDED Quantity: 0 Refills: 0 Ordered: 30-Nov-2020 DO Activelisinopril 5 mg oral tablet (20 sources)Angiotensin Converting Enzyme InhibitorStart: 01-10-2024 End: 83-71-1485xenq 1 tablet by mouth once dailyLisinopril 5 mg tablet Discontinued 5 MG PO Daily 90 January 10, 2024 3:59pm November 30, 2024 4:58pm melatonin 5 mg oral capsule (10 sources)Start: 02-29-4953Ncolcxajo 5 MG Oral Capsule TAKE 1 CAPSULE BY MOUTH NEEDED. Quantity: 0 Refills: 0 Ordered: 24-Apr-2022 DO Start : 24-Apr-2022 Siokzr22 hr oxybutynin chloride 5 mg extended release oral tablet (6 sources)Cholinergic Muscarinic Antagonisttake 1 tablet by mouth twice daily Oxybutynin Chloride ER 5 MG Oral Tablet Extended Release 24 Hour Take one tablet twice daily Quantity: 0 Refills: 0 Ordered: 30-Nov-2020 DO Activeramipril 5 mg oral capsule (6 sources)Angiotensin Converting Enzyme InhibitorStart: 67-52-1685xqtv 1 capsule by mouth once dailyRamipril 5 MG Oral Capsule TAKE 1 CAPSULE ONCE DAILY. Quantity: 30 Refills: 11 Ordered: 82-Lic-5680Rskvbrfad MD, Betul Start : 10-Oct-2022 Activesildenafil 50 mg oral tablet (15 sources)Phosphodiesterase 5 InhibitorStart: 09-16-2024 End: 09-31-6906lgoa 1 tablet by mouth once daily as neededSildenafil 50 mg tablet Discontinued 0 .ROUTE .COMPLEX 9 September 16, 2024 2:57pm 2025 2:26pm TAKE 1 TABLET BY MOUTH ONCE A DAY NEEDED DIRECTED FOR 30 DAYSStart: 03-06-2024 End: 82-37-1947iqbu 1 tablet by mouth once dailySildenafil 50 mg tablet Discontinued 50 MG PO Daily March 06, 2024 12:00am September 16, 2024 2:57pm Start: 46-61-3457xwoo 1 tablet by mouth once dailySildenafil Citrate 25MG Sildenafil Citrate 25MG, 1 (one) Tablet daily as directed # 10, 07/12/2022,Ref. x2. Active Oral daily as directed for 30 *Pick strength-form from avVenta for eRX* Jul, Activetake 1 tablet by mouth once daily as neededSildenafil Citrate 50 MG 1 tablet as needed Orally daily as directed for 30 days *Pick strength-form from avVenta for eRX* Active Problems Active Problems Problem ClassificationProblemDateDocumented DateEpisodic/ChronicAbdominal pain (7 sources)Abdominal pain; Translations: [Unspecified abdominal pain]Episodic Acute cerebrovascular disease (11 sources)Cerebrovascular accident; Translations: [Cerebral infarction, unspecified]Onset: 699966-52-7705TdsjznyArrcnztccsvvfv/social admission (15 sources)Patient encounter status; Translations: [Dietary counseling and surveillance]Onset: 07-09-2024 Resolved: 741348-49-9167XddnngtjOuvdiwl disorders (10 sources)Anxiety; Translations: [Anxiety disorder, unspecified]ChronicCardiac and circulatory congenital anomalies (11 sources)Patent foramen ovale; Translations: [PFO (patent foramen ovale)] Onset: 081646-07-3873RszwzaiBsuprob dysrhythmias (20 sources)Paroxysmal atrial fibrillation; Translations: [Unspecified atrial fibrillation]Onset: 10-09-3932WzmpsiqBukoupt on above:novhronic obstructive pulmonary disease and bronchiectasis (1 source)Bronchitis, not specified as acute or chronic; Translations: [Bronchitis, not specified as acute orchronic]18-60-0734CcybvainPgommyldwz disorders (1 source)Unspecified right bundle-branch block; Translations: [UNSPECIFIED RT BUNDLE-BRANCH BLOCK]Onset: 12-10-7720GjtiucnQzhlydjmxd heart failure; nonhypertensive (20 sources)Chronic systolic (congestive) heart failure; Translations: [Acute on chronic systolic (congestive) heart failure]Onset: 82-78-1376UjwzuowCmsxzicv atherosclerosis and other heart disease (8 sources)Coronary arteriosclerosis; Translations: [Atherosclerotic heart disease of [place] coronary artery without angina pectoris]Onset: 09-16-2024 35-86-3037CwwnsqyMfbnmrtjjz and other anemia (3 sources)Anemia; Translations: [Anemia, unspecified]EpisodicDeficiency and other anemia (2 sources)Normocytic anemia; Translations: [Anemia, unspecified]2025 EpisodicDeficiency and other anemia (1 source)Anemia, unspecified; Translations: [Anemia, unspecified]Onset: 08-63-9859VsnvzslqZugdralwyr and other anemia (1 source)Deficiency and other anemiaDelirium, dementia, and amnestic and other cognitive disorders (20 sources)Alzheimer's disease; Translations: [Alzheimer's disease with late onset]Onset: 351073-88-2686EsdzosgIbnaqkgd mellitus with complications (20 sources)Type 2 diabetes mellitus; Translations: [Diabetes with other specified manifestations, type II or unspecified type, not stated as uncontrolled]Onset: 158642-05-2788WyrijaeKunfvyod mellitus without complication (16 sources)Type 2 diabetes mellitus without complications; Translations: [Diabetes mellitus]Onset: 453228-90-2348JrinpwcPexgidnww of lipid metabolism (20 sources)Hyperlipidemia; Translations: [Other and unspecified hyperlipidemia] Onset: 88-07-1837YumgkqmQafmjrqflolfns and diverticulitis (11 sources)Diverticulosis of colon; Translations: [Diverticulosis of large intestine without perforation or abscess without bleeding]Onset: 07-09-2024 68-33-3030HroxuwhIgfugcpeuz disorders (1 source)Gastro-esophageal reflux disease without esophagitis; Translations: [GERD WITHOUT ESOPHAGITIS]Onset: 59-55-4452HnrrmgeSoijafqvc hypertension (19 sources)Hypertensive disorder; Translations: [Essential (primary) hypertension]Onset: 853429-65-1455RdtkvciMbkglbpnnftz with complications and secondary hypertension (2 sources)Hypertensive heart disease with heart failure; Translations: [Hypertensive heart disease with heartfailure]Onset: 92-77-5153GvtoswwApgpqpz and fatigue (3 sources)Fatigue; Translations: [Other fatigue]EpisodicMiscellaneous mental health disorders (11 sources)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; Translations: [Other specified disorders of adult personality and behavior]Onset: 052831-45-5537EgnvjcyHwyw disorders (11 sources)Depressive disorder; Translations: [Depression]Onset: 06-27-2024 22-59-6538WbcgpeeLpvvii and vomiting (7 sources)Nausea; Translations: [Nausea]EpisodicOcclusion or stenosis of precerebral arteries (13 sources)Bilateral stenosis of carotid arteries; Translations: [Occlusion and stenosis of bilateral carotid arteries]Onset: hronic Osteoarthritis (3 sources)Unspecified osteoarthritis, unspecified site; Translations: [Osteoarthritis of right hip joint]Onset: 801592-88-2917BzwmixaUypig aftercare (7 sources)Long-term current use of insulin; Translations: [jail (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 insulin]EpisodicOther and unspecified benign neoplasm (16 sources)Pituitary macroadenoma; 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]EpisodicOther and unspecified benign neoplasm (20 sources)Prolactinoma; 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 gland] Onset: 882975-48-3013KhnspphtQvhhp circulatory disease (3 sources)Personal history of transient ischemic attack (TIA), and cerebral infarction without residual deficits; Translations: [PERS HX TIA AND CI NO RESID DEFICIT]Onset: 61-23-1691KukwqlliKpkxj circulatory disease (2 sources)History of cerebrovascular accident; Translations: [Personal history of transient ischemic attack (TIA), and cerebral infarction without residual deficits]10-14-9927SpxfuhfyQfhom endocrine disorders (20 sources)Male hypogonadism; Translations: [Other testicular hypofunction] Onset: 662679-12-0339QrzxowfOnusi endocrine disorders (6 sources)Hypogonadotropic hypogonadism; Translations: [Other anterior pituitary disorders]ChronicOther endocrine disorders (1 source)Testicular hypofunction; Translations: [TESTICULAR HYPOFUNCTION]Onset: 71-44-1291GbkwqrqAiydz endocrine disorders (1 source)Hypopituitarism; Translations: [Hypopituitarism]61-53-3614RozkmndNiumz endocrine disorders (1 source)Hyperparathyroidism; Translations: [Hyperparathyroidism, unspecified] 80-28-3543PsorjayUpsge endocrine disorders (1 source)Hyperprolactinemia; Translations: [Hyperprolactinemia]05-07-2024 ChronicOther endocrine disorders (11 sources)Pituitary mass; Translations: [Other disorders of pituitary gland] Onset: 246215-20-0994ArjuvwzZfiqk endocrine disorders (11 sources)Primary hyperparathyroidism; Translations: [Primary hyperparathyroidism]Onset: 225467-41-7093IalcynfCnzsx gastrointestinal disorders (15 sources)Diarrhea; Translations: [Diarrhea, unspecified]Onset: 07-09-2024 Resolved: 241779-08-1205QskgtbzjLzalr gastrointestinal disorders (15 sources)Fecal incontinence with fecal urgency; Translations: [Full incontinence of feces]Onset: 833951-37-9446GkyalticKdpuits on above: Suspect patient has constipation with overflowOther gastrointestinal disorders (15 sources)Constipation; Translations: [Constipation, unspecified]Onset: 068814-28-9694WckvxvvhVjuov gastrointestinal disorders (1 source)Constipation, unspecified; Translations: [Constipation, unspecified] 22-67-1921AypdxwrcZswzs gastrointestinal disorders (1 source)Full incontinence of feces; Translations: [Fecal urgency]03-18-2024 EpisodicOther male genital disorders (6 sources)Secondary erectile dysfunction; Translations: [Erectile dysfunction due to diseases classified elsewhere]ChronicOther male genital disorders (1 source)Erectile dysfunction due to diseases classified elsewhereChronicOther nutritional; endocrine; and metabolic disorders (13 sources)Hypercalcemia; Translations: [Hypercalcemia]Onset: 12-23-2012 80-56-6049WtoeupeSaaog nutritional; endocrine; and metabolic disorders (7 sources)Loss of appetite; Translations: [Anorexia]EpisodicOther nutritional; endocrine; and metabolic disorders (6 sources)Weight loss; Translations: [Abnormal weight loss]EpisodicOther nutritional; endocrine; and metabolic disorders (1 source)Abnormal weight loss; Translations: [Weight loss]EpisodicPeri-; endo-; and myocarditis; cardiomyopathy (except that caused by tuberculosis or sexually transmitted disease) (8 sources)Cardiomyopathy; Translations: [Other cardiomyopathies]Onset: 467420-39-7878LjfsmtfRyosgzaj codes; unclassified (2 sources)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; Translations: [Idiopathic hypersomnia with long sleep time]26-73-3602HehtxugHddnpqq disorders (20 sources)Central hypothyroidism; 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]Onset: 819532-06-1744XellvrfRvlppqqfywln (1 source)CONTACT W/AND (SUSP) EXPOS COVID-19; Translations: [CONTACT W/AND (SUSP) EXPOS COVID-19]Onset: 68-22-8809Cczdfflhpyre (2 sources)Permanent atrial fibrillation; Translations: [Permanent atrial fibrillation]Onset: 09-16-2024 Past or Other Problems Problem ClassificationProblemDateDocumented DateEpisodic/ChronicMenopausal disorders (1 source)Hormone replacement therapy; Translations: [HORMONE REPLACEMENT THERAPY]Onset: 44-84-5630BvvzvjknBlmqf aftercare (1 source)Other residential (current) drug therapy; Translations: [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]Onset: 74-09-6077AzayhpazUspcm aftercare (1 source)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; Translations: [ALF USE ORAL HYPOGLYCEMIC DX]Onset: 89-38-5350FwwpkzffTjbiw aftercare (1 source)jail (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 insulin; Translations: [ALF CURRENT USE OF INSULIN]Onset: 01-44-5816BfijeyptXwjtn aftercare (1 source)jail (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 aspirin; Translations: [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 MACHINE 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 CURRENT USE OF ASPIRIN]Onset: 06-83-7442BjgzuauqClzlm and unspecified benign neoplasm (4 sources)Benign neoplasm of pituitary gland; Translations: [BENIGN NEOPLASM OF PITUITARY GLAND]Onset: 05-95-6809RiwcigciYzrxc circulatory disease (11 sources)History of cerebrovascular accident due to ischemia; Translations: [Personal history of transient ischemic attack (TIA), and cerebral infarction without residual deficits]Onset: 377418-95-7419GxdmyiaiYvnmm circulatory disease (11 sources)History of transient ischemic attack; Translations: [Personal history of transient ischemic attack (TIA), and cerebral infarction without residual deficits]Onset: 605057-45-0594MpqbptjaIevqp lower respiratory disease (3 sources)Shortness of breath; Translations: [SHORTNESS OF BREATH]Onset: 44-42-2356EbbmlrxnHalmx lower respiratory disease (1 source)Dyspnea, unspecified; Translations: [DYSPNEA UNSPECIFIED]Onset: 10-32-7976AzyvrbpdHsnbk nutritional; endocrine; and metabolic disorders (6 sources)Body mass index 25-29 - overweight; Translations: [Overweight]Onset: 415734-95-0139SgfapzdrGvdpc screening for suspected conditions (not mental disorders or infectious disease) (14 sources)Cardiovascular stress test abnormal; Translations: [Abnormal result of other cardiovascular function study]Onset: 034296-47-0449Vergsyih Residual codes; unclassified (11 sources)Memory impairment; Translations: [Other amnesia]Onset: 06-27-2024 62-59-5056PzrrttipHokbwkew codes; unclassified (11 sources)H/O: atrial fibrillation; Translations: [Other specified postprocedural states]Onset: 05-02-2023 Resolved: 784003-51-0579MquxsldcKtfnpfizk and history of mental health and substance abuse codes (1 source)Personal history of nicotine dependence; Translations: [PERSONAL HISTORY OF NICOTINE DEPEND]Onset: 58-77-2285PngwgaeiXoxkjuz and strains (13 sources)Strain of rotator cuff of shoulder; Translations: [Strain of muscle(s) and tendon(s) of the rotatorcuff of unspecified shoulder, initial encounter]Onset: 06-16-2013 Resolved: 407451-20-2008YktxmhsfBniibme (6 sources)Vasovagal syncope; Translations: [Syncope and collapse]Onset: 716396-54-8217Brcbzxxi Results Test NameValueInterpretationReference XjoayWykqsgbh40ip 07-42-169614Yqu, let's reduce the coreg to 3.125 mg BID, thanks.[facility]36on 76-00-156727Le not taking any lasix, is there something else we can tryNormalUniversity of [facility]36on 22-82-024480Vny's start by reducing lasix from 40 mg daily to 20 mg daily. Have him continue to keep a BP and HR log and to keep us updated. Thanks.[facility] HospitalOffice Visiton 90-61-4611Dguvkk-up [id number] Gadiel Liang 1950 M Date Provider Department Center 07/16/2025 [id number], ADAM RO [facility] Family History Problem Relation [...] Paternal Grandmother Paternal Grandfather Other Level of Service:20605 [facility] OFFICE/OUTPATIENT ESTABLISHED MOD MDM 30 MIN Reason for Visit and Comments: Follow-up [417546] - [facility] admission for SOB and Dizziness Atrial Fibrillation [80] CVA [Other] Atrial Flutter [101] Hyperlipidemia [182] Nonischemic cardiomyopathy [Other] Coronary Artery Disease [187] Hypertension [556844] Carotid stenosis [Other]NormalFort Hamilton Hospital Onlyon 76-46-0961Fzzpku [id number] Gadiel Liang 1950 M Date Provider Department [place] 07/14/2025 [id number], HISTORICAL CARD [facility] Family History Problem [...] Grandmother Maternal Grandfather Paternal Grandmother Paternal Grandfather OtherNormalUniversity University Hospitals Beachwood Medical CenterBasophils Auto (Bld) [#/Vol] Ordered By: Norberto Zuniga on 39-75-7934Pfmojaamy (Bld) [#/Vol]0.1 10 3/uL0.0-0.1 [facility] HospitalBasophils/100 WBC Auto (Bld)Ordered By: Norberto Zuniga on 58-54-4315Bpgwyhkya/100 WBC (Bld)0.6 %0.2-2.0[facility] HospitalEosinophils/100 WBC Auto (Bld)Ordered By: Norberto Zuniga on 41-33-3009Uxssjvhdolz/100 WBC (Bld)5.0 %0.9-7.0[facility] Erythrocyte distribution width Auto (RBC) [Ratio]Ordered By: Norberto Zuniga on 25-39-0225Kcatswwkqvt distribution width (RBC) [Ratio]12.8 %11.0-15.0[facility] HospitalGlobulin Calc (S) [Mass/Vol]Ordered By: Norberto Zuniga on 23-76-0598Zcbtecbl (S) [Mass/Vol]3.2 g/dLBarnesville Hospital Glomerular filtration rate (GFR) estimation in non- AmericanOrdered By: Norberto Zuniga on 77-60-4837VCK/1.73 sq M.predicted among non-blacks MDRD (S/P/Bld) [Vol rate/Area]mL/min/{1.73_m2}>=60 mL/min/1.73m 2FUniversity Hospitals St. John Medical CenterHematocrit Auto (Bld) [Volume fraction]Ordered By: Norberto Zuniga on 79-76-6718Cegpfmdssc (Bld) [Volume fraction]40.2 %Low42.0-54.0[facility] HospitalHemoglobin [Mass/volume] in BloodOrdered By: Norberto Zuniga on 43-26-7661Obsigtgfzj (Bld) [Mass/Vol]13.1 g/dLLow14.0-18.0[facility] HospitalLaboratory - Chemistry and Chemistry - challengeOrdered By: Norberto Zuniga on 15-23-8835Flusady [Mass/Vol]3.6 g/dL3.4-5.0[facility] HospitalALP [Catalytic activity/Vol]53 U/G97-509PpsiznlymBarnesville HospitalALT [Catalytic activity/Vol]21 U/J06-17QqnvfwullBarnesville HospitalAST [Catalytic activity/Vol]11 U/QWmh45-92UpupyqajpBarnesville HospitalBilirubin [Mass/Vol]1.2 mg/dLHigh0.2-1.0[facility] HospitalCalcium [Mass/Vol]9.2 mg/dL8.5-10.1FUniversity Hospitals St. John Medical Center Chloride [Moles/Vol]108 mmol/GUncc27-519IcuppkxioBarnesville HospitalCO2 [Moles/Vol]25.9 mmol/L21.0-32.0[facility] HospitalCreatinine [Mass/Vol]0.98 mg/dL0.70-1.30[facility] HospitalGFR/1.73 sq M.predicted MDRD (S/P/Bld) [Vol rate/Area]mL/min/{1.73_m2}>=60 mL/min/1.73m 2 [facility] HospitalGlucose [Mass/Vol]79 mg/bR92-664WmgcrfwpfBarnesville HospitalNatriuretic peptide B (Bld) [Mass/Vol]182.0 pg/mL<=900.0 [facility] HospitalPotassium [Moles/Vol]3.8 mmol/L3.5-5.1FUniversity Hospitals St. John Medical CenterProtein [Mass/Vol]6.8 g/dL6.4-8.2FMercy Health Allen Hospitalodium [Moles/Vol]141 mmol/U224-898ZwktdbtltBarnesville HospitalUrea nitrogen [Mass/Vol]17.0 mg/dL7.0-18.0[facility] HospitalUrea nitrogen/Creatinine [Mass ratio]17.3 mg/mgBarnesville HospitalLaboratory - Hematology and Cell countsOrdered By: Norberto Zuniga on 05-78-5724Mnvdtvko granulocytes/100 WBC (Bld)0.5 %0.0-0.5FUniversity Hospitals St. John Medical CenterLeukocytes [#/volume] corrected for nucleated erythrocytes in Blood by Automated counOrdered By: Norberto Zuniga on 29-61-2691KCW corrected for nucl RBC Auto (Bld) [#/Vol]8.3 10 3/uL4.0-11.0[facility] Lymphocytes Auto (Bld) [#/Vol]Ordered By: Norberto Zuniga on 55-13-9162Auicunugmgw (Bld) [#/Vol]2.1 10 3/uL1.2-3.8[facility] HospitalLymphocytes/100 WBC Auto (Bld)Ordered By: Norberto Zuniga on 17-54-3140Aoceulqfkek/100 WBC (Bld) 25.4 %20.5-60.0[facility] Medical CenterH Auto (RBC) [Entitic mass] Ordered By: Norberto Zuniga on 58-69-7360ANP (RBC) [Entitic mass]29.2 pg25.9-34.0 [facility] HospitalMCHC Auto (RBC) [Mass/Vol]Ordered By: Norberto Zuniga on 00-39-9955CTSO (RBC) [Mass/Vol]32.6 g/dL29.9-35.2FUniversity Hospitals St. John Medical CenterMCV Auto (RBC) [Entitic vol]Ordered By: Norberto Zuniga on 90-65-8144YYI (RBC) [Entitic vol]89.5 fL80.0-94.0[facility] HospitalMonocytes Auto (Bld) [#/Vol]Ordered By: Norberto Zuniga on 07-08-2025 Monocytes (Bld) [#/Vol]1.0 10 3/uLHigh0.3-0.8[facility] Monocytes/100 WBC Auto (Bld)Ordered By: Norberto Zuniga on 66-03-3147Aamqbkkbs/100 WBC (Bld)12.1 %High1.7-12.0[facility] HospitalNeutrophils Auto (Bld) [#/Vol]Ordered By: Norberto Zuniga on 21-64-5425Chfurrhvfut (Bld) [#/Vol]4.7 10 3/uL1.4-6.5FUniversity Hospitals St. John Medical CenterNeutrophils/100 WBC Auto (Bld) Ordered By: Norberto Zuniga on 76-42-2370Xuzghiwngig/100 WBC (Bld)56.4 %43.0-75.0 [facility] HospitalNo Panel InformationOrdered By: Norberto Zuniga on 59-29-2669Envxxqlkrhk # (Auto)0.4 10 3/uL0.0-0.7FUniversity Hospitals St. John Medical CenterImmature Granulocyte # (Auto)0.04 10 3/uLHigh0.00-0.03[facility] HospitalTroponin I High Xtlqgpqfowx13.7 pg/mL4.0-76.1FUniversity Hospitals St. John Medical CenterComment on above:CUT-OFF POINTS HAVE BEEN ESTABLISHED BASED ON THE FOURTHUNIVERSAL DEFINITION OF MYOCARDIAL INFARCTION. THE UPPERREFERENCE LIMIT (URL) OF TROPONIN, DEFINED THE 99THPERCENTILE OF cTnI DISTRIBUTION IN A REFERENCE POPULATION,HAS BEEN CONFIRMED THE DECISION THRESHOLD FOR MIDIAGNOSIS.99TH PERCENTILE = 76.2 PG/MLNOTE: HIGH-SENSITIVITY TROPONIN ASSAY IS NOT INTENDED TO BEUSED IN ISOLATION BUT SHOULD BE INTERPRETED IN CONJUNCTIONWITH OTHER DIAGNOSTIC AND CLINICAL INFORMATION.Platelet mean volume Auto (Bld) [Entitic vol]Ordered By: Norberto Zuniga on 87-33-7709Qvckyfmb mean volume (Bld) [Entitic vol]9.9 fL9.5-13.5FUniversity Hospitals St. John Medical Center Platelets Auto (Bld) [#/Vol]Ordered By: Norberto Zuniga on 57-52-6299Qqdluqahr (Bld) [#/Vol]203 10 3/zY661-076RmpfvytzaBarnesville HospitalRBC Auto (Bld) [#/Vol]Ordered By: Norberto Zuniga on 72-95-8290RKF (Bld) [#/Vol]4.49 10 6/uLLow 4.70-6.10ProMedica Bay Park Hospitalerum or plasma albumin/globulin mass ratioOrdered By: Norberot Zuniga on 49-54-8810Sxikgnb/Globulin [Mass ratio]1.1 {ratio}[facility] Hospitalerum or plasma anion gap determination Ordered By: Norberto Zuniga on 33-27-0934Xamfc gap [Moles/Vol]10.9 mmol/LFUniversity Hospitals St. John Medical CenterErythrocyte distribution width Auto (RBC) [Ratio]Ordered By: Gamal Ellis on 47-09-0087Mlqlhdbozvk distribution width (RBC) [Ratio]12.8 % 11.0-15.0[facility] HospitalGlomerular filtration rate (GFR) estimation in non- AmericanOrdered By: Gamal Ellis on 53-43-5000DPS/1.73 sq M.predicted among non-blacks MDRD (S/P/Bld) [Vol rate/Area]54 mL/min/{1.73_m2}Low>=60 mL/min/1.73m 2FUniversity Hospitals St. John Medical Center Hematocrit Auto (Bld) [Volume fraction]Ordered By: Gamal Ellis on 07-07-2025 Hematocrit (Bld) [Volume fraction]43.2 %42.0-54.0[facility] HospitalHemoglobin [Mass/volume] in BloodOrdered By: Gamal Ellis on 07-07-2025 Hemoglobin (Bld) [Mass/Vol]14.2 g/dL14.0-18.0[facility] Laboratory - Chemistry and Chemistry - challengeOrdered By: Gamal Ellis on 58-23-2006Cetnufu [Mass/Vol]9.3 mg/dL8.5-10.1FUniversity Hospitals St. John Medical Center Chloride [Moles/Vol]104 mmol/M58-458PcpwewnpfBarnesville HospitalCO2 [Moles/Vol]25.3 mmol/L21.0-32.0[facility] HospitalCreatinine [Mass/Vol]1.30 mg/dL0.70-1.30[facility] HospitalGFR/1.73 sq M.predicted MDRD (S/P/Bld) [Vol rate/Area]mL/min/{1.73_m2}>=60 mL/min/1.73m 2 [facility] HospitalGlucose [Mass/Vol]309 mg/jVJcia88-303SfdygolhcBarnesville HospitalMagnesium [Mass/Vol]2.2 mg/dL1.8-2.4FUniversity Hospitals St. John Medical CenterNatriuretic peptide B (Bld) [Mass/Vol]152.0 pg/mL<=900.0[facility] HospitalPotassium [Moles/Vol]4.6 mmol/L3.5-5.1FMercy Health Allen Hospitalodium [Moles/Vol]136 mmol/E921-802NskizgtrfBarnesville HospitalUrea nitrogen [Mass/Vol]16.0 mg/dL7.0-18.0[facility] HospitalUrea nitrogen/Creatinine [Mass ratio]12.3 mg/mgBarnesville HospitalLeukocytes [#/volume] corrected for nucleated erythrocytes in Blood by Automated counOrdered By: Gamal Ellis on 72-27-8948TQH corrected for nucl RBC Auto (Bld) [#/Vol]6.9 10 3/uL4.0-11.0[facility] Auto (RBC) [Entitic mass]Ordered By: Gamal Ellis on 62-92-4432OYA (RBC) [Entitic mass]29.4 pg25.9-34.0[facility] HospitalMCHC Auto (RBC) [Mass/Vol] Ordered By: Gamal Ellis on 02-69-5438CBXO (RBC) [Mass/Vol]32.9 g/dL29.9-35.2 [facility] HospitalMCV Auto (RBC) [Entitic vol]Ordered By: Gamal Ellis on 68-41-2904DZA (RBC) [Entitic vol]89.4 fL80.0-94.0[facility] HospitalNo Panel InformationOrdered By: Norberto Zuniga on 07-07-2025 Troponin I High Qajxxldifrb78.5 pg/mL4.0-76.1FUniversity Hospitals St. John Medical Center Comment on above:CUT-OFF POINTS HAVE BEEN ESTABLISHED BASED ON THE FOURTHUNIVERSAL DEFINITION OF MYOCARDIAL INFARCTION. THE UPPERREFERENCE LIMIT (URL) OF TROPONIN, DEFINED THE 99THPERCENTILE OF cTnI DISTRIBUTION IN A REFERENCE POPULATION,HAS BEEN CONFIRMED THE DECISION THRESHOLD FOR MIDIAGNOSIS.99TH PERCENTILE = 76.2 PG/MLNOTE: HIGH-SENSITIVITY TROPONIN ASSAY IS NOT INTENDED TO BEUSED IN ISOLATION BUT SHOULD BE INTERPRETED IN CONJUNCTIONWITH OTHER DIAGNOSTIC AND CLINICAL INFORMATION.Platelet mean volume Auto (Bld) [Entitic vol]Ordered By: Gamal Ellis on 31-51-9680Soobjqjm mean volume (Bld) [Entitic vol]9.6 fL9.5-13.5FUniversity Hospitals St. John Medical CenterPlatelets Auto (Bld) [#/Vol]Ordered By: Gamal Ellis on 01-92-1787Ghdqdqslf (Bld) [#/Vol]207 10 3/uL 150-450Barnesville HospitalRBC Auto (Bld) [#/Vol]Ordered By: Gamal Ellis on 13-38-4864OLH (Bld) [#/Vol]4.83 10 6/uL4.70-6.10Pro[facility] Park Hospitalerum or plasma anion gap determinationOrdered By: Gamal Ellis on 19-44-0391Ggfhe gap [Moles/Vol]11.3 mmol/LFUniversity Hospitals St. John Medical CenterUS Thyroid glandon 06-04-8906[address] [address] Ultrasound Report Signed Patient: GADIEL LIANG MR#: [id number] : 1950 Acct:[id number] Age/Sex: 74 / M ADM Date: 06/29/25 Loc: US Attending Dr: Henrry Johnson M.D. Ordering Physician: Henrry Johnson M.D. Date of Service: 06/29/25 Procedure(s): US thyroid Accession Number(s): [id number] cc: Joseluis Quiroz M.D.; Henrry Johnson M.D. [address] [address] Patient Name: GADIEL LIANG MRN: [id number] date: 1950 Sex: M Assigned Patient Location: US Current Patient Location: US Accession/Order Number: [id number] Exam Date: 06/29/2025 12:27 Report Date: 06/29/2025 [...] Coello M.D. 06/29/2025 12:30 PM Dictation Location: [place] [address] Electronically authenticated by: [id number] Y Date: 06/29/2025 12:30 Dictated By: Rocky Coello D.O. Signed By: 06/29/25 1232 DD/ 1230 TD/TT: Senior Data Warehouse Architect:JOSSELINEadiolelen Radiologist, - 06/29/2025 [place] [address] Ultrasound Report Signed Patient: GADIEL LIANG MR#: [id number] : 1950 Acct:[id number] Age/Sex: 74 / M ADM Date: 06/29/25 Loc: US Attending Dr: Henrry Johnson M.D. Ordering Physician: Henrry Johnson M.D. Date of Service: 06/29/25 Procedure(s): US thyroid Accession Number(s): [id number] cc: Joseluis Quiroz M.D.; Henrry Johnson M.D. [address] [address] Patient Name: GADIEL LIANG MRN: [id number] date: 1950 Sex: M Assigned Patient Location: US Current Patient Location: US Accession/Order Number: [id number] Exam Date: 06/29/2025 12:27 Report Date: 06/29/2025 [...] Coello M.D. 06/29/2025 12:30 PM Dictation Location: [facility] HealthcareTR[facility]ITALFab[facility] Electronically authenticated by: [id number] Y Date: 06/29/2025 12:30 Dictated By: Rocky Coello D.O. Signed By: 06/29/25 1232 DD/ 1230 TD/TT: Senior Data Warehouse Architect: YOGI HealthcareRadiology Study observation (narrative)YOGI MartinUS Thyroid glandOrdered By: Radiologist Radiology on 20-03-2682[facility] Work Phone: basophils Auto (Bld) [#/Vol]Ordered By: Joseluis Quiroz on 66-65-3915Hzbgdbzrf (Bld) [#/Vol]0.0 10 3/uL0.0-0.1FUniversity Hospitals St. John Medical CenterBasophils/100 WBC Auto (Bld)Ordered By: Joseluis Quiroz on 05-24-2025 Basophils/100 WBC (Bld)0.6 %0.2-2.0[facility] HospitalCholesterol in LDL Calc [Mass/Vol]Ordered By: Joseluis Quiroz on 51-98-3507Biyioutdtcw in LDL [Mass/Vol]47.8 mg/dLBarnesville HospitalComment on above:<100 mg/dl UYVDJSF802-097 mg/dl NEAR OR ABOVE MXLFDTG265-075 mg/dl BORDERLINE NZCS022-762 mg/dl HIGH>190 mg/dl VERY HIGHCholesterol in VLDL Calc [Mass/Vol]Ordered By: Joseluis Quiroz on 40-47-5243Tngiejjwlhc in VLDL [Mass/Vol]17.2 mg/dLBarnesville HospitalEosinophils/100 WBC Auto (Bld)Ordered By: Joseluis Quiroz on 32-74-8141Vqppyulaaiv/100 WBC (Bld)5.4 %0.9-7.0[facility] HospitalErythrocyte distribution width Auto (RBC) [Ratio]Ordered By: Joseluis Quiroz on 87-87-0299Kjodqfjxxud distribution width (RBC) [Ratio]12.9 %11.0-15.0 [facility] HospitalGlobulin Calc (S) [Mass/Vol]Ordered By: Joseluis Quiroz on 82-25-7608Dmmnsmvr (S) [Mass/Vol]3.4 g/dLBarnesville HospitalGlomerular filtration rate (GFR) estimation in non- AmericanOrdered By: Joseluis Quiroz on 44-03-6806UMN/1.73 sq M.predicted among non-blacks MDRD (S/P/Bld) [Vol rate/Area]mL/min/{1.73_m2}>=60 mL/min/1.73m 2FUniversity Hospitals St. John Medical CenterGlucose mean value [Mass/volume] in Blood Estimated from glycated hemoglobinOrdered By: Joseluis Quiroz on 56-14-5120Ozjruqr glucose Estimated from glycated hemoglobin (Bld) [Mass/Vol]206 mg/dLBarnesville Hospital Hematocrit Auto (Bld) [Volume fraction]Ordered By: Joseluis Quiroz on 05-24-2025 Hematocrit (Bld) [Volume fraction]40.8 %Low42.0-54.0[facility] HospitalHemoglobin A1c percentageOrdered By: Joseluis Quiroz on 07-31-3709WsS3m (Bld) [Mass fraction]8.8 %High4.5-6.2FUniversity Hospitals St. John Medical CenterComment on above:ADA RECOMMENDED LIMIT 4.0 - 6.0ADA THERAPEUTIC TARGET < 7.0ACTION SUGGESTED> 7.0Hemoglobin [Mass/volume] in BloodOrdered By: Joseluis Quiroz on 51-84-1370Gqefkhspds (Bld) [Mass/Vol]13.3 g/dLLow14.0-18.0[facility] HospitalLaboratory - Chemistry and Chemistry - challengeOrdered By: Joseluis Quiroz on 92-85-7144Thacruz [Mass/Vol]3.6 g/dL3.4-5.0[facility] HospitalALP [Catalytic activity/Vol]59 U/N34-654LvfmxldkpBarnesville Hospital ALT [Catalytic activity/Vol]14 U/SMmt04-31TxpsaknxnBarnesville HospitalAST [Catalytic activity/Vol]8 U/HFcd56-23VgiqfugdiBarnesville HospitalBilirubin [Mass/Vol]1.0 mg/dL0.2-1.0[facility] HospitalCalcium [Mass/Vol]9.2 mg/dL8.5-10.1FUniversity Hospitals St. John Medical CenterChloride [Moles/Vol]105 mmol/L 98-107Barn[facility] HospitalCholesterol [Mass/Vol]125 mg/dL<=200 [facility] HospitalCholesterol in HDL [Mass/Vol]60 mg/dL40-60 [facility] HospitalComment on above:> or =60 mg/dl - LOW CARDIOVASCULAR RISK<40 mg/dl - HIGH CARDIOVASCULAR RISKCO2 [Moles/Vol]29.8 mmol/L21.0-32.0[facility] HospitalCreatinine [Mass/Vol]1.03 mg/dL 0.70-1.30Barn[facility]ville HospitalFree T4 [Mass/Vol]1.28 ng/dL0.76-1.46 [facility] HospitalGFR/1.73 sq M.predicted MDRD (S/P/Bld) [Vol rate/Area]mL/min/{1.73_m2}>=60 mL/min/1.73m 2FUniversity Hospitals [address]. John Medical Center Glucose [Mass/Vol]240 mg/vOSkcw97-880FrfjqojviBarnesville HospitalPotassium [Moles/Vol]4.5 mmol/L3.5-5.1FUniversity Hospitals St. John Medical CenterProtein [Mass/Vol] 7.0 g/dL6.4-8.2FMercy Health Allen Hospitalodium [Moles/Vol]141 mmol/L 136-145Barn[facility]ville HospitalTriglyceride [Mass/Vol]86 mg/dL<=150 [facility] HospitalTSH Qn1.483 m[IU]/L0.358-3.740Barn[facility]ville HospitalUrea nitrogen [Mass/Vol]13.0 mg/dL7.0-18.0[facility] HospitalUrea nitrogen/Creatinine [Mass ratio]12.6 mg/mgBarnesville HospitalLaboratory - Hematology and Cell countsOrdered By: Joseluis Quiroz on 55-60-3332Xielfboc granulocytes/100 WBC (Bld)0.5 %0.0-0.5FUniversity Hospitals St. John Medical CenterLeukocytes [#/volume] corrected for nucleated erythrocytes in Blood by Automated counOrdered By: Joseluis Quiroz on 25-78-6662EVA corrected for nucl RBC Auto (Bld) [#/Vol]6.3 10 3/uL4.0-11.0[facility] HospitalLymphocytes Auto (Bld) [#/Vol]Ordered By: Joseluis Quiroz on 56-86-2686Krsdbfhrxgz (Bld) [#/Vol]1.2 10 3/uL1.2-3.8[facility] HospitalLymphocytes/100 WBC Auto (Bld)Ordered By: Joseluis Quiroz on 05-24-2025 Lymphocytes/100 WBC (Bld)19.3 %Low20.5-60.0[facility] Auto (RBC) [Entitic mass]Ordered By: Joseluis Quiroz on 83-75-8202XFQ (RBC) [Entitic mass]29.6 pg25.9-34.0[facility] CenterHC Auto (RBC) [Mass/Vol]Ordered By: Joseluis Quiroz on 51-59-5849KASI (RBC) [Mass/Vol]32.6 g/dL 29.9-35.2FUniversity Hospitals St. John Medical CenterMCV Auto (RBC) [Entitic vol]Ordered By: Joseluis Quiroz on 83-81-9316UTI (RBC) [Entitic vol]90.7 fL80.0-94.0[facility] HospitalMicroalbumin [Mass/volume] in UrineOrdered By: Joseluis Quiroz on 42-23-2974Zzhzptn DL <= 20 mg/L (U) [Mass/Vol]3.0 mg/dL<=30.0[facility] HospitalMonocytes Auto (Bld) [#/Vol]Ordered By: Joseluis Quiroz on 95-04-3249Ixjyeghuj (Bld) [#/Vol]0.5 10 3/uL0.3-0.8[facility] HospitalMonocytes/100 WBC Auto (Bld)Ordered By: Joseluis Quiroz on 05-24-2025 Monocytes/100 WBC (Bld)8.3 %1.7-12.0[facility] HospitalNeutrophils Auto (Bld) [#/Vol]Ordered By: Joseluis Quiroz on 48-09-1906Asjhhvkzwmr (Bld) [#/Vol]4.1 10 3/uL1.4-6.5FUniversity Hospitals St. John Medical CenterNeutrophils/100 WBC Auto (Bld)Ordered By: Joseluis Quiroz on 26-08-5734Agalaswpuhw/100 WBC (Bld)65.9 % 43.0-75.0[facility] HospitalNo Panel InformationOrdered By: Joseluis Quiroz on 11-88-3685Hnwwpmrkgep # (Auto)0.3 10 3/uL0.0-0.7FUniversity Hospitals St. John Medical CenterImmature Granulocyte # (Auto)0.03 10 3/uL0.00-0.03[place] HospitalUrine Random Brlehryeiu66.81 mg/dL20.00-300.00[facility] HospitalPlatelet mean volume Auto (Bld) [Entitic vol]Ordered By: Joseluis Quiroz on 32-92-9056Mphezhui mean volume (Bld) [Entitic vol]9.5 fL9.5-13.5 [facility] HospitalPlatelets Auto (Bld) [#/Vol]Ordered By: Joseluis Quiroz on 98-79-5042Ksatxyehn (Bld) [#/Vol]195 10 3/kA495-374AyqusiikqBarnesville HospitalRBC Auto (Bld) [#/Vol]Ordered By: Joseluis Quiroz on 75-60-3186MXE (Bld) [#/Vol]4.50 10 6/uLLow4.70-6.10[facility] Hospitalerum or plasma albumin/globulin mass ratioOrdered By: Joseluis Quiroz on 05-24-2025 Albumin/Globulin [Mass ratio]1.1 {ratio}[facility] Hospitalerum or plasma anion gap determinationOrdered By: Joseluis Quiroz on 71-27-3390Qosbg gap [Moles/Vol]10.7 mmol/LFMercy Health Allen Hospitalerum or plasma total cholesterol/high density lipoprotein (HDL) cholesterol mass ratOrdered By: Joseluis Quiroz on 50-11-8346Tdizvaqsleu.total/Cholesterol in HDL [Mass ratio]2.1 {ratio}[facility]ville HospitalComment on above:3.3 - 4.4 LOW RISK4.4 - 7.1 AVERAGE RISK7.1 - 11.0 MODERATE RISK>11.0 HIGH RISKUrine microalbumin/creatinine mass ratioOrdered By: Joseluis Quiroz on 05-24-2025 Albumin/Creatinine DL <= 20 mg/L (U) [Mass ratio]47.7 mg/gHigh0.0-29.9Barn[facility]ville HospitalComment on above:NO MICROALBUMINURIA 0-29 MG/GCLINICAL MICROALBUMINURIA 30-300 MG/GMACROALBUMINURIA >300 MG/G36on 03-37-976367Hswwczpax lab results from 04/15/2025: Milan Hernandez MD to [place] 04/25/25 5:45 PM Good lipids and AST ALT, continue current management and recheck in 6 months Lab orders to be done prior to Oct 2025 apt were mailed [facility] patient.[facility] HospitalResults Follow-Upon 64-79-6659Wcpookn Follow-[id number] Gadiel Liang 1950 M Date Provider Department Center 04/25/2025 62424-IEVDTJMILAN HERNANDEZ RO Champagne Ignacio Family History Problem Relation Age of Onset [...] Grandmother Maternal Grandfather Paternal Grandmother Paternal Grandfather OtherNormalUniversUC HealthOffice Visiton 91-30-9224Mdjckq-up [id number] Gadiel Liang 1950 M Date Provider Department Center 04/20/2025 TONA FORTE RO [facility] [...] Paternal Grandmother Paternal Grandfather Other Level of Service:66929 [facility] OFFICE/OUTPATIENT ESTABLISHED LOW MDM 20 [facility] HealthCholesterol in LDL Calc [Mass/Vol]on 28-52-0009Fozlxyckaeh in LDL [Mass/Vol]36.2 mg/dLBarnesville HospitalComment on above:<100 mg/dl ZLBQYPK524-793 mg/dl NEAR OR ABOVE TJORYXS688- 159 mg/dl BORDERLINE BYUS812-645 mg/dl HIGH>190 mg/dl VERY HIGHCholesterol in VLDL Calc [Mass/Vol]on 92-57-3212Tjmpjnlepza in VLDL [Mass/Vol]15.8 mg/dL [facility] HospitalLaboratory - Chemistry and Chemistry - challengeon 74-34-1893TZE [Catalytic activity/Vol]22 U/B96-10SmvxvaksnBarnesville HospitalAST [Catalytic activity/Vol]13 U/KEqf37-00OifghtcdcBarnesville HospitalCholesterol [Mass/Vol]109 mg/dL<=200Barn[facility]ville HospitalCholesterol in HDL [Mass/Vol]57 mg/eR52-34QprcxeyxcBarnesville HospitalComment on above:> or =60 mg/dl - LOW CARDIOVASCULAR RISK<40 mg/dl - HIGH CARDIOVASCULAR RISKTriglyceride [Mass/Vol]79 mg/dL<=150Barn[facility]ville HospitalOrders Onlyon 97-87-4967Rhwotm [id number] Gadiel Liang 1950 M Date Provider Department Center 04/15/2025 50623-UTFRTHMILAN ZHONG Family History Problem Relation Age of Onset [...] Grandmother Maternal Grandfather Paternal Grandmother Paternal Grandfather OtherNormalUniversity of Parkview Regional Hospitalerum or plasma total cholesterol/high density lipoprotein (HDL) cholesterol mass lourdes 04-15-2025 Cholesterol.total/Cholesterol in HDL [Mass ratio]1.9 {ratio}[facility]ville HospitalComment on above:3.3 - 4.4 LOW RISK4.4 - 7.1 AVERAGE RISK7.1 - 11.0 MODERATE RISK>11.0 HIGH FKEC10td 58-03-058233Nwfhsdiao lab results from 12/10/2024: MD Tarah Pandya MA Good lipids, continue current medications. Recheck lipids and AST ALT in 6-month. LM for patient. Told him we could order repeats labs at his next apt in 3 months (March) with Dr. Rosenberg. Asked him to call the office with any questions.Normal [facility] CenterUS Thyroid glandon 47-03-7[place] [address] Ultrasound Report Signed Patient: GADIEL LIANG MR#: [id number] : 1950 Acct:[id number] Age/Sex: 74 / M ADM Date: 12/23/24 Loc: US Attending Dr: Henrry Johnson M.D. Ordering Physician: Henrry Johnson M.D. Date of Service: 12/23/24 Procedure(s): US thyroid Accession Number(s): [id number] cc: Joseluis Quiroz M.D.; Henrry Johnson M.D. [address] [address] Patient Name: GADIEL LIANG MRN: [id number] date: 1950 Sex: M Assigned Patient Location: US Current Patient Location: US Accession/Order Number: [id number] Exam Date: 12/23/2024 12:20 Report Date: 12/23/2024 [...] Dictated By: Georgie Viera M.D. Signed By: 12/23/24 131 DD/ 131 TD/TT: Senior Data Warehouse Architect:TBHRadiology, Radiologist, MD - 12/23/2024 [place] [address] Ultrasound Report Signed Patient: GADIEL LIANG MR#: [id number] : 1950 Acct:[id number] Age/Sex: 74 / M ADM Date: 12/23/24 Loc: US Attending Dr: Henrry Johnson M.D. Ordering Physician: Henrry Johnson M.D. Date of Service: 12/23/24 Procedure(s): US thyroid Accession Number(s): [id number] cc: Joseluis Quiroz M.D.; Henrry Johnson M.D. [address] [place] [id number] Patient Name: GADIEL LIANG MRN: [id number] date: 1950 Sex: M Assigned Patient Location: US Current Patient Location: US Accession/Order Number: [id number] Exam Date: 12/23/2024 12:20 Report Date: 12/23/2024 13:12 At the request of: HENRRY ANUJAAMAN Procedure: US thyroid EXAMINATION: US thyroid HISTORY: [...] Dictated By: Georgie Viera M.D. Signed By: 12/23/24 131 DD/ 11 TD/TT: Senior Data Warehouse Architect: YOGI HealthcareRadiology Study observation (narrative)YOGI MartinUS Thyroid glandOrdered By: Radiologist Radiology on 82-91-9628[facility] Work Phone: Office Visiton 51-62-7231Fjuesx-up [id number] Gadiel Liang 1950 M Date Provider Department Center 09/16/2024 17563-SMBNDPMILAN HERNANDEZ [facility] Family History Problem [...] Paternal Grandmother Paternal Grandfather Other Level of Service:41990 [facility] OFFICE/OUTPATIENT ESTABLISHED MOD [facility] 30 MIN Reason for Visit and Comments: Atrial Fibrillation [80] - S/p afib ablation vasovagal syncope [Other] Transient Ischemic Attack [314920] - X2 Carotid stenosis, bilateral [Other] Hyperlipidemia [182] - HAD LABS 09/15/24 Chronic systolic congestive heart failure [Other] - Congestive heart failure due to NICM Heart failure is stable . NYHA Class IINormalUniversity of [facility] 07-06-1988MRDUHqdwxsfvg (PULMMN) GADIEL LIANG ([id number]) 1950 M Date Time Provider Department 06/18/24 RICKEY OSBORNE During your visit today, we recorded the following information about you: Greg River 06/18/2024 4:24 PM Signed Received a mail from Sav with a notice on the Authorization for MRI, Brain, W/O Contrast Dated: 06/04/24 Status: Approve Service Requested: MRI, Brain, W/O Contrast Effective Dates: 06/04/2024 - 09/01/2024 Reference #: [id number] Uploaded into scan docs. Please allow time for upload. Allergies As of Date: 06/18/2024 Noted Allergy Reaction LISINOPRIL 04/28/2015 14 - Other: See Comments Comments: Fatigue Date Reviewed: 01/21/2019 Reviewed by: Maricruz Diaz) - Fully Assessed Reason for Visit: Insurance Authorization [[id number]] Cmt: Sav Prescriptions as of 06/18/2024 - [...] LANCETS) lancets Use as instructed - Insulin [place], Disposable, (BD ULTRAFINE III MINI PEN) 31 [...] 04/28/2015 Encounter Status:Closed by GREG RIVER on 06/18/24NoBrown Memorial HospitalGlucose Glucometer (BldC) [Mass/Vol]Ordered By: Merly Paul on 90-81-7257Snypgsn [Mass/Vol]73 mg/dLBarnesville HospitalComment on above:Random Glucose Reference Range is dependent on time and content of last meal. Glucose of more than 200 mg/dL in a nonstressed, ambulatory subject supports the diagnosis of Diabetes Mellitus.ECHOCARDIO M/2D COMPLETEon 76-79-2885OUXOTSMQCL M/2D COMPLETEPatient: GADIEL LIANG Exam Date: 02/28/2023 : 1950 Gender:M Ordering : TONA ROSENBERG Admission #: [id number] Family : DR JOSELUIS QUIROZ M.D. Order #: [id number] CLICK HERE TO VIEW EXAM ECHOCARDIOGRAM REPORT [...] Left Atrium LA Volume Index (2D A2C): 91246 mm3 Left Atrium Systolic Dimension: 4.90 cm [...] by: Bryant Patten M.D. on 02/28/2023 at 20:13[facility] 14(COMP METB)on 93-57-7500Erhmcmp [Mass/Vol]3.7 g/dLNormal3.4-5.0 The [facility] CenterComment on above:Performed By: #### CMP #### [facility] [address] [place] [address] Dr. Esme JacksonAlbumin/Globulin [Mass ratio]1.1 {ratio}NormalThe [facility] Medical CenterComment on above:Performed By: #### CMP #### [facility] [address] [place] [address] Dr. Esme ReedP [Catalytic activity/Vol]65 U/BNyvpip13-665Owt [facility] CenterComment on above:Performed By: #### CMP #### [facility] [address] [place] [address] Dr. Esme ReedT [Catalytic activity/Vol]26 U/PSgllqp00-29Mnj [facility] CenterComment on above:Performed By: #### CMP #### [facility] [address] [place] [address] Dr. Esme Tanon gap [Moles/Vol]10.8 mmol/LNormalThe [facility] Comment on above:Performed By: #### CMP #### [facility] [address] [place] [address] Dr. Esme JacksonAST [Catalytic activity/Vol]16 U/RArdygw11-80[facility] on above:Performed By: #### CMP #### [facility] [address] [place] [address] Dr. Esme JacksonBilirubin [Mass/Vol]1.1 mg/dLCritically high0.2-1.0The [facility] CenterComment on above:Performed By: #### CMP #### [facility] [address] [place] [address] Dr. Esme JacksonCalcium [Mass/Vol]9.4 mg/dLNormal8.5-10.1[facility] Comment on above:Performed By: #### CMP #### [facility] [address] [place] [address] Dr. Esme JacksonChloride [Moles/Vol]103 mmol/ZJjnzpp27-483Uxx [facility] Comment on above:Performed By: #### CMP #### [facility] [address] [address] [address] Esme JacksonCO2 [Moles/Vol]28.5 mmol/CLjhblz32.0-32.0The [facility] Comment on above:Performed By: #### CMP #### [facility] [address] [address] [address] Esme JacksonCreatinine [Mass/Vol]1.07 mg/dLNormal0.70-1.30The [facility] CenterComment on above:Performed By: #### CMP #### [facility] [address] [address] [address] Esme DamonGFR-AF SIERRA LEONEAN>60Normal>=60The [facility] CenterComment on above:Performed By: #### CMP #### [facility] [address] [place] [address] Dr. Esme aDmonGFR-NON AF SIERRA LEONEAN>60Normal>=60The [facility] CenterComment on above:Performed By: #### CMP #### [facility] [address] [place] [address] Dr. Esme JacksonGlobulin (S) [Mass/Vol]3.5 g/dLNormalThe [facility] CenterComment on above:Performed By: #### CMP #### [facility] [address] [place] [address] Dr. Esme JacksonGlucose [Mass/Vol]190 mg/dLCritically zjio78-269Xeu [facility] CenterComment on above:Performed By: #### CMP #### [facility] [address] [place] [address] Dr. Esme JacksonPotassium [Moles/Vol]5.3 mmol/LCritically high3.5-5.1The [facility] CenterComment on above:Performed By: #### CMP #### [facility] [address] [place] [address] Dr. Esme JacksonProtein [Mass/Vol]7.2 g/dLNormal6.4-8.2The [facility] Comment on above:Performed By: #### CMP #### [facility] [address] [place] [address] Dr. Esme Landisdium [Moles/Vol]137 mmol/SXtgbtm560-754Ekj [facility] Comment on above:Performed By: #### CMP #### [facility] [address] [place] [address] Dr. Esme JacksonUrea nitrogen [Mass/Vol]14.0 mg/dLNormal7.0-18.0The [facility] CenterComment on above:Performed By: #### CMP #### [facility] [address] [place] [address] Dr. Esme Rojas nitrogen/Creatinine [Mass ratio]13.1 mg/mgNormalThe [facility] CenterComment on above:Performed By: #### CMP #### [facility] [address] [place] [address] Dr. Esme Fischer 94-63-3009Cwqotlkfekg peptide B (Bld) [Mass/Vol]6259.0 pg/mLCritically high<=900.0The [facility] CenterComment on above:Performed By: #### BNP, BMP, HSTROPN #### [facility] [address] [place] [address] Dr. Esme Mccallum AUTO DIFFon 98-13-8958OROX #0.0 103/ulNormal0.0-0.1The [facility] CenterComment on above:Performed By: #### CBC #### [facility] [address] [place] [address] Dr. Esme JacksonBasophils/100 WBC (Bld)0.5 %Normal0.2-2.0[facility] Comment on above:Performed By: #### CBC #### [facility] [address] [place] [address] Dr. Esme Villegas #0.3 103/ulNormal0.0-0.7The [facility] CenterComment on above: Performed By: #### CBC #### [facility] [address] [place] [address] Dr. Yilan ChangEosinophils/100 WBC (Bld)3.6 %Normal0.9-7.0The [facility] Comment on above:Performed By: #### CBC #### [facility] [address] [place] [address] Dr. Esme Damonrythrocyte distribution width (RBC) [Ratio]14.8 %Jkrmtt68.0-15.0 [facility] CenterComment on above:Performed By: #### CBC #### [facility] [address] [place] [address] Dr. Esme JacksonHematocrit (Bld) [Volume fraction]36.9 %Critically low42.0-54.0 The [facility] CenterComment on above:Performed By: #### CBC #### [facility] [address] [place] [address] Dr. Esme JacksonHemoglobin (Bld) [Mass/Vol]12.0 g/dLCritically low14.0-18.0The [facility] CenterComment on above:Performed By: #### CBC #### [facility] [address] [place] [address] Dr. Esme Hahn #0.04 10e3/ulCritically high0.00-0.03[facility] Comment on above:Performed By: #### CBC #### [facility] [address] [place] [address] Dr. Esme Hahn %0.5 %Normal0.0-0.5ThProMedica Memorial HospitalComment on above: Performed By: #### CBC #### [facility] [address] [place] [address] Dr. Esme SenH #1.3 103/ulNormal1.2-3.8The [facility] CenterComment on above:Performed By: #### CBC #### [facility] [address] [place] [address] Dr. Esme Gonzalezmphocytes/100 WBC (Bld)18.2 %Critically low20.5-60.0[facility] CenterComment on above:Performed By: #### CBC #### [facility] [address] [place] [address] Dr. Esme Kaur DIFF REQNONormalThe [facility] CenterComment on above: Performed By: #### CBC #### [facility] [address] [place] [address] Dr. Esme Funk (RBC) [Entitic mass]28.0 ckOpggyz58.9-34.0The [facility] CenterComment on above:Performed By: #### CBC #### [facility] [address] [place] [address] Dr. Esme Funk (RBC) [Mass/Vol]32.5 g/iNOyejmk86.9-35.2The [facility] CenterComment on above:Performed By: #### CBC #### [facility] [address] [place] [address] Dr. Esme Funk (RBC) [Entitic vol]86.0 aWGdvbyf63.0-94.0The [facility] CenterComment on above:Performed By: #### CBC #### [facility] [address] [place] [address] Dr. Esme Pretty #0.5 103/ulNormal0.3-0.8The [facility] CenterComment on above:Performed By: #### CBC #### [facility] [address] [place] [address] Dr. Esme Youngocytes/100 WBC (Bld)7.3 %Normal1.7-12.0The [facility] Comment on above:Performed By: #### CBC #### [facility] [address] [place] [address] Dr. Esme Elizabeth #5.1 103/ulNormal1.4-6.5The [facility] Medical CenterComment on above:Performed By: #### CBC #### [facility] [address] [place] [address] Dr. Esme Burrisutrophils/100 WBC (Bld)69.9 %Flslnu29.0-75.0The [facility] CenterComment on above:Performed By: #### CBC #### [facility] [address] [address] [address] Esme JacksonPlatelet mean volume (Bld) [Entitic vol]10.3 fLNormal9.5-13.5The [facility] CenterComment on above:Performed By: #### CBC #### [facility] [address] [place] [address] Dr. Esme JacksonPLT220 103/cdZsgotm020-149Glk [facility] CenterComment on above: Performed By: #### CBC #### [facility] [address] [place] [address] Dr. Esme JacksonRBC4.29 106/ulCritically low4.70-6.10The [facility] CenterComment on above:Performed By: #### CBC #### [facility] [address] [place] [address] Dr. Esme JacksonWBC7.3 103/ulNormal4.0-11.0The [facility] CenterComment on above: Performed By: #### CBC #### [facility] [address] [place] [address] Dr. Esme JacksonCovid-19 PCR ([facility])on 99-02-7599UJOV-CoV-2 (COVID-19) RNA HANSA+probe Ql (Unsp spec)Not detectedNormalNOT DETECTEDThe [facility] Comment on above:Result Comment: When diagnostic testing is negative, the [...] for this test is supported by the Elevator Service Technician of Health and Human Service's declaration [...] which the test may no longer be used).Performed By: #### CVDTBH #### [facility] [address] [place] [address] Dr. Esme Khan AND B AGon 45-34-6790TEKTBHMBTZNSHLicking Memorial HospitalComment on above:Result Comment: Negative for Flu A protein angiten. Infection due to Flu A cannot be ruled out. FluA angiten in the sample may be below the detection limit of the test.Performed By: #### FT4 #### [facility] [address] [place] [address] Dr. Esme GoodeUBNEGCARLOS [facility] HospitalComment on above: Result Comment: Negative for Flu B protein antigen. Infection due to Flu B cannot be ruled out. FluB antigen in the sample may be below the detection limit of the test.Performed By: #### FT4 #### [facility] [address] [place] [address] Dr. Esme Khan AGNegativeNormalNEGATIVE SEE COMMENTThe [facility] Medical CenterComment on above:Performed By: #### FT4 #### [facility] [address] [place] [address] Dr. Esme Tate AGNegativeNormalNEGATIVE SEE COMMENTThe [facility] Medical CenterComment on above:Performed By: #### FT4 #### [facility] [address] [place] [address] Dr. Esme JacksonPROF CHEM 8 (BAS METB)on 77-85-3389Tnlqq gap [Moles/Vol]13.9 mmol/LNormalThe [facility] CenterComment on above:Performed By: #### BNP, BMP, HSTROPN #### [facility] [address] [place] [address] Dr. Esme JacksonCalcium [Mass/Vol]8.7 mg/dLNormal8.5-10.1The [facility] Comment on above:Performed By: #### BNP, BMP, HSTROPN #### [facility] [address] [place], [place] [address] Dr. Esme JacksonChloride [Moles/Vol]104 mmol/VIoujvt60-506Gld [facility] Comment on above:Performed By: #### BNP, BMP, HSTROPN #### [facility] [address] [place] [address] Dr. Esme JacksonCO2 [Moles/Vol]25.2 mmol/JTozcno86.0-32.0The [facility] Comment on above:Performed By: #### BNP, BMP, HSTROPN #### [facility] [address] [place] [address] Dr. Esme JacksonCreatinine [Mass/Vol]1.04 mg/dLNormal0.70-1.30The [facility] CenterComment on above:Performed By: #### BNP, BMP, HSTROPN #### [facility] [address] [place] [address] Dr. Esme DamonGFR-AF SIERRA LEONEAN>60Normal>=60The [facility] CenterComment on above:Performed By: #### BNP, BMP, HSTROPN #### [facility] [address] [place] [address] Dr. Esme DamonGFR-NON AF SIERRA LEONEAN>60Normal>=60The [facility] CenterComment on above:Performed By: #### BNP, BMP, HSTROPN #### [facility] [address] [place] [address] Dr. Esme JacksonGlucose [Mass/Vol]199 mg/dLCritically mwha43-371Guz [facility] CenterComment on above:Performed By: #### BNP, BMP, HSTROPN #### [facility] [address] [place] [address] Dr. Esme JacksonPotassium [Moles/Vol]4.1 mmol/LNormal3.5-5.1The [facility] Comment on above:Performed By: #### BNP, BMP, HSTROPN #### [facility] [address] [place] [address] Dr. Esme JacksonSodium [Moles/Vol]139 mmol/FNrjtcj381-398Mtj [facility] Comment on above:Performed By: #### BNP, BMP, HSTROPN #### [facility] [address] [address] [address] Esme Rojas nitrogen [Mass/Vol]18.0 mg/dLNormal7.0-18.0The [facility] CenterComment on above:Performed By: #### BNP, BMP, HSTROPN #### [facility] [address] [address] [address] Esme JacksonUrea nitrogen/Creatinine [Mass ratio]17.3 mg/mgNormMercy Health Urbana HospitalComment on above:Performed By: #### BNP, BMP, HSTROPN #### [facility] [address] [address] [address] Esme Rinaldi, HIGH SENSITIVITYon 15-14-5131GUSNGD17.5 pg/mLNormal 4.0-76.1The [facility] Medical CenterComment on above:Result Comment: CUT-OFF POINTS HAVE BEEN ESTABLISHED BASED ON THE FOURTH UNIVERSAL DEFINITIONS OF MYOCARDIAL INFARCTION. THE UPPER REFERENCE LIMIT (URL) OF TROPONIN, DEFINED THE 99TH PERCENTILE OF cTnI DISTRIBUTION IN A REFERENCE POPULATION, HAS BEEN CONFIRMED THE DECISION THRESHOLD FOR AL DIAGNOSIS.Performed By: #### BNP, BMP, HSTROPN #### [facility] [address] [place] [address] Dr. Esme JacksonXR CHEST 1 Von 79-47-4587KD CHEST 1 VEXAM: XR CHEST 1 V 11/10/2022 COMPARISON STUDY: [...] osseous structures are stable. Electronically authenticated by: [employer] Date: 2022-11-10 09:24[facility] ShawCovid-19 PCR (CVDTBH)on 33-22-7926KKWH-CoV-2 (COVID-19) RNA HANSA+probe Ql (Unsp spec)Not detectedNormalNOT DETECTEDAshtabula County Medical Center Comment on above:Result Comment: When diagnostic testing is negative, the [...] for this test is supported by the Elevator Service Technician of Health and Human Service's declaration [...] which the test may no longer be used).Performed By: #### CVDTBH #### [facility] [address] [place] [address] Dr. Esme Khan AND B [facility] 92-72-9801USAZPZCLMAIVIBlanchard Valley Health System Bluffton HospitalComment on above:Result Comment: Negative for Flu A protein angiten. Infection due to Flu A cannot be ruled out. FluA angiten in the sample may be below the detection limit of the test.Performed By: #### FT4 #### [facility] [address] [place] [address] Dr. Esme GoodeUBNEGHSCARLOS [facility] on above: Result Comment: Negative for Flu B protein antigen. Infection due to Flu B cannot be ruled out. FluB antigen in the sample may be below the detection limit of the test.Performed By: #### FT4 #### [facility] [address] [place] [address] Dr. Esme Khan AGNegativeNormalNEGATIVE SEE COMMENTThe [facility] on above:Performed By: #### FT4 #### [facility] [address] [place] [address] Dr. Esme Tate AGNegativeNormalNEGATIVE SEE COMMENTThe [facility] CenterComment on above:Performed By: #### FT4 #### [facility] [address] [address] [address] Esme JacksonINTERNAL CONTROLSWithin Normal LimitsNormalWithin Normal Limits The [facility] CenterComment on above:Performed By: #### FT4 #### [facility] [address] [address] [address] 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) [...] insulin; CATIE = N; Verified Transmission to [id number]; Last Updated By: Gabby [employer]; 10/10/2022 11:29:03 AM Albumin, Urine Spot; Status:Active; Requested for:10Oct2022; Perform:Lab Services - Lab To Draw (Non-Blood Test); Due:[id number];Ordered; For:Central hypothyroidism, Hyperlipemia, Hypogonadism male, Pituitary macroadenoma, Thyroid nodule, Type 2 diabetes mellitus with other specified complication, with long-term current use of insulin; Ordered By:Yves Osborne; Brain Natriuretic Peptide BNP; Status:Active; Requested for:10Oct2022; Perform:Lab Services - Lab To Draw (Blood Test); Due:51Ehj3672;Ordered; For:Central hypothyroidism,Hyperlipemia, Hypogonadism male, Pituitary macroadenoma, Thyroid nodule, Type 2 diabetes mellitus with other specified complication, with long-term current use of insulin; Ordered By:Mandie Osborne; Complete Blood Count + Differential; Status:Active; Requested for:10Oct2022; Perform:Lab Services - Lab To Draw (Blood Test); Due:72Tzg9313;Ordered; For:Central hypothyroidism,Hyperlipemia, Hypogonadism male, Pituitary macroadenoma, Thyroid nodule, Type 2 diabetes mellitus with other specified complication, with long-term current use of insulin; Ordered By:Mandie Osborne; Comprehensive Metabolic Panel; Status:Active; Requested for:10Oct2022; Perform:Lab Services - Lab To Draw (Blood Test); Due:40Vjb4703;Ordered; For:Central hypothyroidism,Hyperlipemia, Hypogonadism male, Pituitary macroadenoma, Thyroid nodule, Type 2 diabetes mellitus with other specified complication, with long-term current use of insulin; Ordered By:Mandie Osborne; Cortisol, Unspecified; Status:Active; Requested for:10Oct2022; Perform:Lab Services - Lab To Draw (Blood Test); Due:98Kjy2074;Ordered; For:Central hypothyroidism,Hyperlipemia, Hypogonadism male, Pituitary macroadenoma, Thyroid nodule, Type 2 diabetes mellitus with other specified complication, with long-term current use of insulin; Ordered By:Mandie Osborne; Hemoglobin A1C; Status:Active; Requested for:10Oct2022; Perform:Lab Services - Lab To Draw (Blood Test); Due:28Gei1427;Ordered; For:Central hypothyroidism,Hyperlipemia, Hypogonadism male, Pituitary macroadenoma, Thyroid nodule, Type 2 diabetes mellitus with other specified complication, with long-term current use of insulin; Ordered By:Mandie Osborne; Lipid Panel; Status:Active; Requested for:10Oct2022; Perform:Lab Services - Lab To Draw (Blood Test); Due:08Jan2023;Ordered; For:Central hypothyroidism,Hyperlipemia, Hypogonadism male, Pituitary macroadenoma, Thyroid nodule, Type 2 diabetes mellitus with other specified complication, with long-term current use of insulin; Ordered By:Mandie Osborne; Prolactin, Serum; Status:Active; Requested for:10Oct2022; Perform:Lab Services - Lab To Draw (Blood Test); Due:34Lnh2247;Ordered; For:Central hypothyroidism,Hyperlipemia, Hypogonadism male, Pituitary macroadenoma, Thyroid nodule, Type 2 diabetes mellitus with other specified complication, with long-term current use of insulin; Ordered By:Mandie Osborne; T4 - Free Thyroxine, Serum; Status:Active; Requested for:10Oct2022; Perform:Lab Services - Lab To Draw (Blood Test); Due:44Ujj6221;Ordered; For:Central hypothyroidism,Hyperlipemia, Hypogonadism male, Pituitary macroadenoma, Thyroid nodule, Type 2 (more content not included)...NormalUH TouchworksCORTISOL Bri 15-86-0099Mubdoacj AM19.6 ug/dLCritically high6.2-19.[address] [facility]ment on above:Performed By: #### CORTAM #### [facility] [address] [address] [address] Esme JacksonMICROALBUMIN URINEon 77-73-8856Njlmtpd, Urine36.5 ug/mLNormalNot Estab.The [facility] CenterComment on above:Performed By: #### FT4 #### [facility] [address] [address] [address] Esme JacksonFREE T4on 46-77-5099Wlsg T4 [Mass/Vol]1.22 ng/dLNormal0.76-1.46 The [facility] CenterComment on above:Performed By: #### FT4 #### [facility] [address] [address] [address] Esme JacksonGLYCOHEMOGLOBIN A1Con 94-95-0430WVP RECOMMENDATIONSEE BELOWNormal The [facility] CenterComcorewell health [facility] on above:Result Comment: ADA RECOMMENDED LIMIT 4.0 - 6.0 ADA THERAPEUTIC TARGET < 7.0 ACTION SUGGESTED > 7.0Performed By: #### FT4 #### [facility] [address] [address] [address] Esme JacksonGlucose [Mass/Vol]194 mg/dLNormalThe [facility] CenterComcorewell health [facility] on above:Performed By: #### FT4 #### [facility] [address] [address] [address] Esme JacksonHbA1c (Bld) [Mass fraction]8.4 %Critically high4.5-6.2The [facility] Hospitalment on above:Performed By: #### FT4 #### [facility] [address] [place] [address] Dr. Esme JacksonLIPID PROFILEon 34-43-6398GZYA-HDL RATIO NORMSEE BELOWNormalThProMedica Memorial HospitalComment on above:Result Comment: 3.3 - 4.4 LOW RISK 4.4 - 7.1 AVERAGE RISK 7.1 - 11.0 MODERATE RISK >11.0 HIGH RISKPerformed By: #### FT4 #### [facility] [address] [address] [address] Esme JacksonCholesterol [Mass/Vol]153 mg/dLNormal<=200The [facility] Comment on above:Performed By: #### FT4 #### [facility] [address] [address] [address] Esme JacksonCholesterol in HDL [Mass/Vol]55 mg/gSVtvdak61-54Pvr [facility] CenterComment on above:Performed By: #### FT4 #### [facility] [address] [place] [address] Dr. Esme JacksonCholesterol in LDL [Mass/Vol]82.2 mg/dLSelect [facility] Hospital, Edwin ShawComment on above:Performed By: #### FT4 #### [facility] [address] [place] [address] Dr. Esme JacksonCholesterroc.total/Cholesterol in HDL [Mass ratio]2.8 {ratio} NormalAshtabula County Medical CenterComment on above:Performed By: #### FT4 #### [facility] [address] [place] [address] Dr. Esme JacksonHDL NORMAL> or = 60 mg/dl - LOW CARDIOVASCULAR RISK <40 mg/dl - HIGH CARDIOVASCULAR RISKSelect [facility], [facility] ShawComment on above:Performed By: #### FT4 #### [facility] [address] [place] [address] Dr. Esme JacksonLDL CALC NORMALSEE BELOWSelect Medical [facility] Clinic Rehabilitation Hospital, Edwin ShawComment on above:Result Comment: <100 mg/dl OPTIMAL 100 - 129 mg/dl NEAR OR ABOVE OPTIMAL 130 - 159 mg/dl BORDERLINE HIGH 160 - 189 mg/dl HIGH >190 mg/dl VERY HIGH Performed By: #### FT4 #### [facility] [address] [place] [address] Dr. Esme JacksonTriglyceride [Mass/Vol]79 mg/dLNormal<=150The [facility] Comment on above:Performed By: #### FT4 #### [facility] [address] [place] [address] Dr. Esme JacksonVLDL CALC15.8 mg/dLNormalThe [facility] CenterComment on above: Performed By: #### FT4 #### [facility] [address] [place] [address] Dr. Esme JacksonPROF 14(COMP METB)on 04-10-1426Fortjvt [Mass/Vol]3.9 g/dLNormal 3.4-5.0The [facility] CenterComment on above:Performed By: #### FT4 #### [facility] [address] [place] [address] Dr. Esme JacksonAlbumin/Globulin [Mass ratio]1.1 {ratio}NormalThe [facility] Medical CenterComment on above:Performed By: #### FT4 #### [facility] [address] [place] [address] Dr. Esme Loja [Catalytic activity/Vol]57 U/QZpqybv19-376Mmk [facility] CenterComment on above:Performed By: #### FT4 #### [facility] [address] [place] [address] Dr. Esme Ward [Catalytic activity/Vol]22 U/BRyfcmr66-33Utx [facility] CenterComment on above:Performed By: #### FT4 #### [facility] [address] [place] [address] Dr. Esme Ruiz gap [Moles/Vol]12.6 mmol/LNormalThe [facility] Comment on above:Performed By: #### FT4 #### [facility] [address] [place] [address] Dr. Esme Badillo [Catalytic activity/Vol]18 U/FImhwpg29-63Rdd [facility] CenterComment on above:Performed By: #### FT4 #### [facility] [address] [place] [address] Dr. Esme JacksonBilirubin [Mass/Vol]1.1 mg/dLCritically high0.2-1.0The [facility] CenterComment on above:Performed By: #### FT4 #### [facility] [address] [place] [address] Dr. Esme JacksonCalcium [Mass/Vol]9.0 mg/dLNormal8.5-10.1The [facility] Comment on above:Performed By: #### FT4 #### [facility] [address] [place] [address] Dr. Esme JacksonChloride [Moles/Vol]103 mmol/WYnflaa03-380Dqj [facility] Comment on above:Performed By: #### FT4 #### [facility] [address] [place] [address] Dr. Esme JacksonCO2 [Moles/Vol]27.2 mmol/BPvhqsx64.0-32.0The [facility] Comment on above:Performed By: #### FT4 #### [facility] [address] [place] [address] Dr. Esme JacksonCreatinine [Mass/Vol]0.90 mg/dLNormal0.70-1.30The [facility] CenterComment on above:Performed By: #### FT4 #### [facility] [address] [place] [address] Dr. Esme DamonGFR-AF SIERRA LEONEAN>60Normal>=60The [facility] CenterComment on above:Performed By: #### FT4 #### [facility] [address] [place] [address] Dr. Esme DamonGFR-NON AF SIERRA LEONEAN>60Normal>=60The [facility] CenterComment on above:Performed By: #### FT4 #### [facility] [address] [place] [address] Dr. Esme JacksonGlobulin (S) [Mass/Vol]3.4 g/dLNormalThe [facility] CenterComment on above:Performed By: #### FT4 #### [facility] [address] [place] [address] Dr. Esme JacksonGlucose [Mass/Vol]185 mg/dLCritically erfb24-961Zpx [facility] CenterComment on above:Performed By: #### FT4 #### [facility] [address] [address] [address] Esme JacksonPotassium [Moles/Vol]3.8 mmol/LNormal3.5-5.1[facility] Comment on above:Performed By: #### FT4 #### [facility] [address] [place] [address] Dr. Esme JacksonProtein [Mass/Vol]7.3 g/dLNormal6.4-8.2[facility] Comment on above:Performed By: #### FT4 #### [facility] [address] [place] [address] Dr. Esme JacksonSodium [Moles/Vol]139 mmol/VQwehmi306-740ZbiAshtabula County Medical Center Comment on above:Performed By: #### FT4 #### [facility] [address] [place] [address] Dr. Esme JacksonUrea nitrogen [Mass/Vol]12.0 mg/dLNormal7.0-18.0The [facility] CenterComment on above:Performed By: #### FT4 #### [facility] [address] [place] [address] Dr. Esme Rojas nitrogen/Creatinine [Mass ratio]13.3 mg/mgNormalThe [facility] CenterComment on above:Performed By: #### FT4 #### [facility] [address] [place] [address] Dr. Esme Beckford THYROIDon 23-35-5022JM THYROIDEXAMINATION: US THYROID HISTORY: Non-toxic uninodular goiter COMPARISON: [...] Electronically authenticated by: GEORGIE VIERA Date: 2022-06-22 17:28[facility] ShawFollow Up (Endocrinology)on 67-28-2344Ftbine Up (Endocrinology) Diagnoses/Problems Health Maintenance/Risks Encounter for [...] with long-term current use of insulin; Ordered By:Yves Osborne; Comprehensive Metabolic Panel; Status:Active; Requested for:24Apr2022; Perform:Lab Services - Lab To Draw (Blood Test); Due:23Jul2022;Ordered; For:Central hypothyroidism,Hyperlipemia, Hypogonadism male, Pituitary macroadenoma, Thyroid nodule, Type 2 diabetes mellitus with other specified complication, with long-term current use of insulin; Ordered By:Mandie Osborne; Cortisol A.M.; Status:Active; Requested for:24Apr2022; Perform:Lab Services - Lab To Draw (Blood Test); Due:23Jul2022;Ordered; For:Central hypothyroidism,Hyperlipemia, Hypogonadism male, Pituitary macroadenoma, Thyroid nodule, Type 2 diabetes mellitus with other specified complication, with long-term current use of insulin; Ordered By:Mandie Osborne; Hemoglobin A1C; Status:Active; Requested for:24Apr2022; Perform:Lab Services - Lab To Draw (Blood Test); Due:23Jul2022;Ordered; For:Central hypothyroidism,Hyperlipemia, Hypogonadism male, Pituitary macroadenoma, Thyroid nodule, Type 2 diabetes mellitus with other specified complication, with long-term current use of insulin; Ordered By:Mandie Osborne; Lipid Panel; Status:Active; Requested for:24Apr2022; Perform:Lab Services - Lab To Draw (Blood Test); Due:23Jul2022;Ordered; For:Central hypothyroidism,Hyperlipemia, Hypogonadism male, Pituitary macroadenoma, Thyroid nodule, Type 2 diabetes mellitus with other specified complication, with long-term current use of insulin; Ordered By:Mandie Osborne; T4 - Free Thyroxine, Serum; Status:Active; Requested for:24Apr2022; Perform:Lab Services - Lab To Draw (Blood Test); Due:23Jul2022;Ordered; For:Central hypothyroidism,Hyperlipemia, Hypogonadism male, Pituitary macroadenoma, Thyroid nodule, Type 2 diabetes mellitus with other specified complication, with long-term current use of insulin; Ordered By:Mandie Osborne; Testosterone, Level; Status:Active; Requested for:24Apr2022; Perform:Lab Services - Lab To Draw (Blood Test); Due:23Jul2022;Ordered; For:Central hypothyroidism,Hyperlipemia, Hypogonadism male, Pituitary macroadenoma, Thyroid nodule, Type 2 diabetes mellitus with other specified complication, with long-term current use of insulin; Ordered By:Mandie Osborne; Ultrasound Thyroid; Status:Hold For - Scheduling; Requested for:24Apr2022; Perform:[facility]; Due:23Jul2022;Ordered; For:Central [...] nodule; CATIE = N; Verified Transmission to [facility]; Last Updated By: Laura Sapiens; 04/24/2022 10:33:22 AM Hypogonadism male, Pituitary macroadenoma Renew: Testosterone 50 MG/5GM (1%) Transdermal Gel; APPLY 1 PACKET ONE TIME DAILY DIRECTED Rx By: Mandie Osborne; Dispense: 0 Days ; #:90 X 5 GM Package; Refill: 1;For: Hypogonadism male, Pituitary macroadenoma; CATIE = N; Verified Transmission to [facility]; Last Updated By: Laura Sapiens; 04/24/2022 10:33:21 AM Pituitary macroadenoma Renew: Cabergoline 0.5 MG Oral Tablet; Take 1 tablet every other day Rx By: Mandie Osborne; Dispense: 80 Days ; #:40 Tablet; Refill: 3;For: Pituitary macroadenoma; CATIE = N; Verified Transmission to [facility]; Last Updated By: Laura Sapiens; 04/24/2022 10:33:26 AM Type 2 diabetes mellitus with other specified complication, with long-term current use of insulin Renew: Accu-Chek Alicia Plus In Vitro Strip; TEST TWICE DAILY Rx B (more content not included)...NormalUH TouchworksTobacco Screening.on 17-82-0197Ricbl depression screening licqdgorumOaJQ-Ofvikmfo-QmiwyovBeckley [facility] [address] Work Phone: Fall risk assessmenta) No falls within the last year [place] [address] Work Phone: Tobacco use status CPHSb) Mz[facility]-Luqtrnbo-[facility]dgbvbjTr[facility] [address] Work Phone: Vital Signs Date TimeVital SignValuePerforming TzeichhzxFcvbpgnb51-82-8785 14:29-0400Body tzztauetnbs92.5 [degF]Joseluis Quiroz MD Work Phone: [phone]35[facility]09-30-2025 14:29-0400 Body inmjbh44.81 kgJoseluis Quiroz MD Work Phone: [phone]09-30-2025 14:29-0400 Diastolic blood ykkzmmmq40 mm[Hg]Joseluis Quiroz MD Work Phone: [phone])[address]09-30-2025 14:29-0400 Heart rate68 /Bess Quiroz MD Work Phone: [phone]09-30-2025 14:29-0400 Respiratory rate16 /Bess Quiroz MD Work Phone: [phone]46[facility]09-30-2025 14:29-0400 SaO2% (BldA) [Mass fraction]96 %Joseluis Quiroz MD Work Phone: [phone]09-30-2025 14:29-0400 Systolic blood afcuoyyu80 mm[Hg]Joseluis Quiroz MD Work Phone: [phone]09-10-2025 09:56-0400 Body .53 cmJoseluis Quiroz MD Work Phone: [phone]09-10-2025 09:56-0400 Body mass index (BMI) [Ratio]28.1 kg/n0AienozJoseluis Quiroz MD Work Phone: [phone]09-10-2025 09:56-0400 Body kxnxze60.71 kgJoseluis Quiroz MD Work Phone: [phone]09-10-2025 09:56-0400 Diastolic blood iggsqtoj60 mm[Hg]Joseluis Quiroz MD Work Phone: [phone]09-10-2025 09:56-0400 Heart rate65 /Bess Quiroz MD Work Phone: [phone]09-10-2025 09:56-0400 SaO2% (BldA) [Mass fraction]93 %Joseluis Quiroz MD Work Phone: [phone])[address]09-10-2025 09:56-0400 Systolic blood mm[Hg]Joseluis Quiroz MD Work Phone: [phone] [place], [place] 3935607-14-2025 10:02-0400 Body .53 cmJoseluis Quirzo MD Work Phone: [phone] [place], [place] 3935607-14-2025 10:02-0400 Body mass index (BMI) [Ratio]27.9 kg/t4UgejqkJoseluis Quiroz MD Work Phone: [phone] [place], [place] 3935607-14-2025 10:02-0400 Body wopfhf04.08 Adán Quiroz MD Work Phone: [phone])[address] [place], [place] 3935607-14-2025 10:02-0400 Diastolic blood vkjovdsa23 mm[Hg]Joseluis Quiroz MD Work Phone: [phone])[address]07-14-2025 10:02-0400 Heart rate68 /Bess Quiroz MD Work Phone: [phone]07-14-2025 10:02-0400 Respiratory rate12 /Bess Quiroz MD Work Phone: [phone] [place], [place] 3935607-14-2025 10:02-0400 SaO2% (BldA) [Mass fraction]97 %Joseluis Quiroz MD Work Phone: [phone]07-14-2025 10:02-0400 Systolic blood xvxmivtp545 mm[Hg]Joseluis Quiroz MD Work Phone: [facility]04-03-2025 13:12-0400 Body aavnrc495.9 cmMichael Chaves DO Work Phone: [facility] HospitalIdoziatspk03-99-4634 13:12-0400Body mass index (BMI) [Ratio]26.56 kg/f1Omyxvwr Chaves DO Work Phone: [facility] HospitalWiqxhvlldt93-57-5968 13:12-0400Body ypkpvx23.81 kgMichael Chaves DO Work Phone: [facility] HospitalWlwdugdssg01-99-6290 13:31-0500Body rgspob428.9 cmHenrry Johnson MD Work Phone: [facility] HospitalGvmflmjypy82-96-8093 13:31-0500Body mass index (BMI) [Ratio]26.72 kg/p9JuxxyoHenrry Johnson MD Work Phone: [facility] HospitalKfzjkqyyne90-68-0989 13:31-0500Body qwdrab84.36 kgHenrry Johnson MD Work Phone: [facility] HospitalDmnfetsypp61-23-2548 13:31-0500Diastolic blood pemlgyob09 mm[Hg]Henrry Johnson MD Work Phone: [facility] HospitalQeluaotogv97-23-8321 13:31-0500Heart rate77 /min Henrry Johnson MD Work Phone: [facility] HospitalRpttoygssb71-64-2616 13:31-0500Systolic blood mm[Hg]Henrry Johnson MD Work Phone: [facility] HospitalLymwvhchpy11-04-1466 11:22-0400Body afldia783.9 cmHenrry Johnson MD Work Phone: [facility] HospitalBahhdbrurc28-82-8966 11:22-0400Body mass index (BMI) [Ratio]26.31 kg/w2BuxmscHenrry Johnson MD Work Phone: [facility] HospitalDyizviqbrg71-09-6242 11:22-0400Body ebaklk95 kg Henrry Johnson MD Work Phone: [facility] HospitalRfnklnqsgc88-32-4092 11:22-0400Diastolic blood yeoifpzt72 mm[Hg]Henrry Johnson MD Work Phone: [facility] HospitalWagolegaxt18-66-6925 11:22-0400Systolic blood buoyuvcz389 mm[Hg]Henrry Johnson MD Work Phone: [facility] HospitalGobncutwed77-54-5101 12:35-0400Diastolic blood ujxczney79 mm[Hg]MD Joseluis Quiroz Work Phone: [phone]06-04-2024 12:35-0400 Heart rate54 /minMD Joseluis Quiroz Work Phone: [phone]06-04-2024 12:35-0400 Respiratory rate18 /minMD Joseluis Quiroz Work Phone: [phone] [place], [place] 3935606-04-2024 12:35-0400 SaO2% (BldA) [Mass fraction]99 %MD Joseluis Quiroz Work Phone: [phone]06-04-2024 12:35-0400 Systolic blood ncttogjf290 mm[Hg]MD Joseluis Quiroz Work Phone: [phone])[address] [place], [place] 3935606-04-2024 11:02-0400 Body uxjbpf603.88 cmMD Joseluis Quiroz Work Phone: [phone])[address] [place], [place] 3935606-04-2024 11:02-0400 Body .18 kgMD Joseluis Quiroz Work Phone: [phone]05-08-2024 10:35-0400 Body emsqrr374.88 cmMD Joseluis Quiroz Work Phone: [phone]05-08-2024 10:35-0400 Body mass index (BMI) [Ratio]25.7 kg/m2MD Joseluis Quiroz Work Phone: [phone]05-08-2024 10:35-0400 Body .18 kgMD Joseluis Quiroz Work Phone: [phone]04-26-2024 10:52-0400 Body nkyutj720.88 cmMD Joseluis Quiroz Work Phone: [phone]04-26-2024 10:52-0400 Body mass index (BMI) [Ratio]26.9 kg/m2MD Joseluis Quiroz Work Phone: [phone]04-26-2024 10:52-0400 Body pcnegmwdrxl96.2 [degF]MD Joseluis Quiroz Work Phone: [phone]04-26-2024 10:52-0400 Body xmsfau72.98 kgMD Joseluis Quiroz Work Phone: [phone]04-26-2024 10:52-0400 Diastolic blood uisgbvgk61 mm[Hg]MD Joseluis Quiroz Work Phone: [phone]04-26-2024 10:52-0400 Heart rate69 /minMD Joseluis Quiroz Work Phone: [phone])[address]04-26-2024 10:52-0400 Respiratory rate18 /minMD Joseluis Quiroz Work Phone: [phone])73962 [address]04-26-2024 10:52-0400 SaO2% (BldA) [Mass fraction]95 %MD Joseluis Quiroz Work Phone: [phone] [place], [place] 1070604-26-2024 10:52-0400 Systolic blood mm[Hg]MD Joseluis Quiroz Work Phone: [phone]12-19-2023 13:30-0500 Body npspuu753.88 cmJoseluis Quiroz Other [employer] Other 205978-20-6201 13:30-0500Body mass index (BMI) [Ratio] 26.09 kg/j5WjtimhJoseluis Quiroz Other [facility] [employer] Other 12-19-2023 13:30-0500Body bitvzv35.27 kgJoseluis Quiroz Other [employer] Other 12-19-2023 13:30-0500Diastolic blood wmqgykuy14 mm[Hg] Joseluis Quiroz Other [employer] Other 12-19-2023 13:30-5296YtM9% (BldA) [Mass fraction]93 % Joseluis Quiroz Other [employer] Other 12-19-2023 13:30-0500Systolic blood mm[Hg] Joseluis Quiroz Other [employer] Other 10-09-2023 11:00-0400Body .88 cmJoseluis Ellie Other [employer] Other 10-09-2023 11:00-0400Body mass index (BMI) [Ratio] 25.36 kg/h7Mvmgrs Ellie Other [employer] Other 10-09-2023 11:00-0400Body klvewl72.82 kgJoseluis Ellie Other [employer] [facility] Other 10-09-2023 11:00-0400Diastolic blood rykuqeah89 mm[Hg] Joseluis Quiroz Other [facility] Other 10-09-2023 11:00-0400Systolic blood dvacejkz760 mm[Hg] Joseluis Quiroz Other [facility] Other Encounters Encounter DateEncounter TypeCare ProviderFacilityStart: 47-47-5104Ghphgqzbtn [facility]onia [facility] Work Phone: Start: 2025 End: 91-05-0390bixrfwrpdbStkiwk E Braun MD Work Phone: [facility] Work Phone: Start: 2025 End: 05-52-8279Ojuhxoy encounter Shalini [facility] Ambulatory Work Phone: Start: 07-21-2025 End: 90-02-6996hjuyoooabyLynsit E Braun MD Work Phone: [facility] Work Phone: Start: 07-21-2025 End: 78-93-1621Radkuiz encounter Mary Quiroz MD-[facility] Work Phone: Start: 07-16-2025 End: 12-80-2978qnhrcuusxiLHRFLutheran Hospitaltart: 49-80-6767Mmj-patient / Non-visitCatherine Valerio [facility] Work Phone: Start: 04-75-6850Sdx-patient / Non-visitCatherine Valerio [facility] Work Phone: Start: 00-51-7884Alh-patient / Non-visitNorberto Zuniga MD-[facility] Work Phone: Start: 94-11-4114Mfa-patient / Non-visitGamal Lester DO-[facility] Work Phone: Start: 06-29-2025 End: 94-08-6285Ueehlerwq Result EncounterHijeannine Johnson MD Work Phone: noms External Department UnsolicitedStart: 06-29-2025 End: 70-32-7197Xodfbzbku Result EncounterHenrry Johnson MD Work Phone: noms External Department UnsolicitedStart: 05-24-2025 End: 46-97-3525rssmbvbxhdHouhcx E Braun MD Work Phone: [facility] Work Phone: Start: 05-24-2025 End: 48-58-8580Elktfqc encounter procedureJoseluis Quiroz MD-[facility] Work Phone: Start: 04-20-2025 End: 46-03-1551qdedvkdlrfDRGU [facility] Hospitaltart: 55-93-4323Vmz-patient / Non-visitSalberto Hernandez MD-[facility] Work Phone: Start: 02-11-2025 End: 16-38-5511Tnllah flowsheetMichael T Chaves DO Work Phone: [facility]S ORTHOStart: 02-11-2025 End: 62-53-1879Eqxvfn flowsheetMichael T Chaves DO Work Phone: [phone] ORTHOStart: 02-11-2025 End: 91-03-3435Msptzvb encounter procedureMichael T Chaves DO Work Phone: [phone] NB ORTHOComment on above:Primary osteoarthritis of right hip (Primary Dx)Start: 02-11-2025 End: 87-39-6127ttwusujnzsWROICQU T POWERSNot AvailableStart: 02-01-2025 End: 06-92-1004qqhdjeuksoJIDBZ T OLSENNot AvailableStart: 12-29-2024 End: 33-35-5025Iobmax Johnny Johnson MD Work Phone: [facility] CI ENTStart: 12-29-2024 End: 85-11-7929Rpodey flowsPeyman Johnson MD Work Phone: [facility] CI ENTStart: 12-29-2024 End: 93-45-0838dihgxpetbqGIECQI H TIMMISNot AvailableStart: 12-29-2024 End: 75-18-4886Uastnz outpatient visit 15 minutesHijeannine Johnson MD Work Phone: [facility] CI ENTComment on above:Thyroid nodule (CMS/HCC) (Primary Dx)Start: 12-23-2024 End: 15-21-3660Cjkchdxgl Result EncounterHenrry Johnson MD Work Phone: noms External Department UnsolicitedStart: 12-23-2024 End: 48-52-9584Bqhtquptb Result EncounterHenrry Johnson MD Work Phone: noms External Department UnsolicitedStart: 09-16-2024 End: 40-23-9840ourxocehmqRKABRHarrison Community Hospitaltart: 07-14-2024 End: 17-02-2630Aujijf flowsheetHenrry Johnson MD Work Phone: noms CI ENTStart: 07-14-2024 End: 71-87-1378Tocrly Johnny Johnson MD Work Phone: noms CI ENTStart: 07-14-2024 End: 87-40-6753Zpkojp outpatient new 45 minutesHenrry Johnson MD Work Phone: noms CI ENTComment on above:Thyroid nodule (CMS/HCC) (Primary Dx)Start: 07-14-2024 End: 53-68-4702wdqxdgsmiaNNWBQJ H TIMMISNot AvailableStart: 88-84-5768Vuvyzpazo encounterUmnancy Osborne MD Work Phone: ulmonary MedicineComment on above:Insurance Authorization ([place])Start: 07-12-7775Bwdefar encounter Mary Quiroz MD Work Phone: [facility]: 05-07-2024 End: 83-91-8707Hgtqzr outpatient visit 40 minutesBetvikas Osborne MD Work Phone: [facility] CenterComment on above:Hypopituitarism (Multi) (Primary Dx); Hypogonadism male; Hyperparathyroidism (Multi); Hyperprolactinemia (Multi); Type 2 diabetes mellitus without complication, with long-term current use of insulin (Multi); Thyroid noduleStart: 48-46-2146Usj-patient / Non-visitMD Joseluis Quiroz Work Phone: [facility] Work Phone: Start: 04-14-2024 End: 91-64-7703Aznufviog to same day surgery centerMD Joseluis Quiroz Work Phone: [facility] Work Phone: Start: 04-14-2024 End: 12-61-9319drzowuqblqKP Joseluis Quiroz Work Phone: [facility] Work Phone: Start: 03-23-2024 End: 73-13-1281yzuruaxckmECFPOS A RUSHERNot AvailableStart: 03-18-2024 End: 98-05-1189Lizpwsz encounter procedureMD Joseluis Quiroz Work Phone: [facility] Work Phone: Start: 03-06-2024 End: 25-28-4045Cdwndsa encounter procedureMD Joseluis Quiroz Work Phone: [facility] [place] Work Phone: Start: 12-23-2023 End: 11-37-7345pizzsmrldlEpxukl Braun Other [facility] Other Start: 41-14-5395Tqzxmpvbp encounterJoseluis [facility] ClinicStart: 10-29-2023 End: 43-86-8634okmdgvdwxpFgbovm Braun Other [facility] Other Start: 12-55-2011Ryepuq outpatient visit 15 minutes Joseluis [facility] ClinicStart: 10-16-2023 End: 91-19-4743qlfqnbiwkqCmvhyc Braun Other [facility] Other Start: 96-05-3117Vmklbhdmt encounterMarrey David [facility] ClinicStart: 09-13-2023 End: 94-85-1380lrnbbgqemxFbxswo Ellie Other [employer] Other Start: 94-81-2928Sdbhszrpb encounterMarrey David [facility] ClinicStart: 09-10-2023 End: 68-09-7479wrtmaqfsdsEhvppi Ellie Other noSpontly [employer] Other Start: 75-92-8033Zdgqipfsw encounterMarrey David [facility] ClinicStart: 08-19-2023 End: 44-07-9440sehxcbrxgoGztgmd Quiroz Other [facility] [employer] Other Start: 08-69-4366Djiygz outpatient visit 15 minutes Joseluis David [facility] ClinicStart: 07-31-2023 End: 76-34-3404vcgimvvrmoCzpnjl Braun Other noSpontly [employer] Other Start: 65-32-6078Kfpwmtluf encounterJoseluis David [facility] ClinicStart: 72-22-2821Up Gilma Dupont Work Phone: [phone]-UyysgoldWar [facility] [address] Work Phone: Start: 75-84-4940Ji Gilma Dupont Work Phone: [phone]-XJA [address] [place] Work Phone: Start: 02-28-2023 End: 92-01-0572bweubvlkuvXYEX CHACKOFacility:V0Cwhms: 74-85-7800sdtuofsgpiSA JOSELUIS QUIROZFacility:Y8Jtthc: 24-94-6994EYZJMEoqich E Ross Work Phone: [phone]-ZtccqlwlfgzmdLovell General Hospital Work Phone: Start: 18-70-0489Xu RenewalCabrera Dupont Work Phone: [phone]-NAL [address] [place] Work Phone: Start: 01-03-2023 End: 31-18-7763pvcqssprkzQD JOSELUIS QUIROZFacility:L7Cdntz: 11-28-2022 End: 59-50-6518akrtqjfgmjSNYEZDQ BOESFacility:A1Kxgbo: 40-73-5721chfdcgprvuTU JOSELUIS Austin BRAUNFacility:A0Jguek: 11-10-2022 End: 71-26-0162vmveholdpePG JEANNE ALLEN .Facility:T4Qjied: 10-15-2022 End: 06-76-3236lvrpbrdwmtTI RAPHAEL NUNEZFacility:U9Njclk: 24-08-9101Hnsqor outpatient visit 25 minutesSazeb Geovanna Dupont Work Phone: [phone]-Mpxetmdemvafu-[facility] [address] Work Phone: start: 68-45-0925wihfzuzjofTmwvodxt SelfFacility:9346 Start: 34-66-0766PIUKNQzdboe E Ross Work Phone: [phone]-GrlxmiwfmbobcLovell General Hospital Work Phone: Start: 14-74-1353Wi Gilma Dupont Work Phone: [phone]-TPY [address] [place] Work Phone: Start: 39-80-2155Bqucaqigu encounterBetvikas Osborne MD Work Phone: EndocrinologyComment on above:Received Outside Medical Records (Received Thyroid US report from [facility]. Indexed into chart. )Start: 06-22-2022 End: 57-43-1353altyyyzdaiGW DOCTOR MISCFacility:Q3Ikcdl: 56-53-8445Kesvys outpatient visit 40 minutesSazeb Geovanna Dupont Work Phone: [phone]-TrcilylbTrinity Health [address] Work Phone: Start: 19-24-4252vkwvkwywvfQiIgnacio Cabrera Dupont Facility:9416Start: 59-92-7219QUQYMJgdtsy E Ross Work Phone: [phone]-MvjwvumpdzmilTrinity Health Work Phone: Start: 30-57-3758UBPTDXmmpmx E Ross Work Phone: [phone]-DezmzxraibftaTrinity Health Work Phone: Start: 15-77-1580Xf RenewalCabrera Dupont Work Phone: [phone]-PnldabplkwxkkTrinity Health Work Phone: Start: 21-49-2966HLQJXMzgdwr E Ross Work Phone: [phone]-VilxvejdikeluLovell General Hospital Work Phone: Start: 12-13-4581ZTPNMLoolit E Ross Work Phone: [phone]-Ztfvbjzpgstlz-[facility] [address] Work Phone: Start: 80-75-3645DPHPLHobxru E Ross Work Phone: [phone]-Rxamzzonchwkc-[facility] [address] Work Phone: start: 06-20-2017 End: 35-17-7935EkfbllycwnTZNSUTS PHYSICIANFacility:[facility] Procedures DateProcedureProcedure DetailPerforming ClinicianStart: 81-07-9706Ql soft tissue head & neck real time imge Marva Johnson MD Work Phone: Start: 24-98-7267Em soft tissue head & neck real time imge Marva Johnson MD Work Phone: Start: 04-14-2024 End: 72-38-9926NyaipzpmyweBY Joseluis Quiroz Work Phone: Start: 98-17-4724Suhsc 1996 panel - Serum or Plasma Rickey Osborne MD Work Phone: AppendectomySamuel E Ross Work Phone: Arthroscopy of kneeSniles Dupont Work Phone: ParathyroidectomyCabrera Dupont Work Phone: VasectomyCabrera Dupont Work Phone: Plan of Treatment DateCare ActivityDetailAuthorStart: 31-46-0524Cegvkitmi for malignant neoplasm of colonNOMS HealthcareStart: 33-16-5055Jfhyady referralC[facility] Clinic Hillcrest [facility] Work Phone: Start: 05-32-8339Sdgejyvnr vaccinationInfluenza Vaccine (#1)[facility] HealthcareStart: 07-06-2025 End: 75-87-1234Qijarqd encounter procedureNOMS CI ENTStart: 02-11-2025 End: 80-01-4311Cfkeqvs encounter vnqvtuifz27/03/2025 1:15 PM EDT Office Visit [facility] [address] [facility] [id number] Ansley Chaves, [address] [place] [address] Primary osteoarthritis of right hip (Primary Dx)[facility] Comment on above:Primary osteoarthritis of right hip (Primary Dx)Start: 12-29-2024 End: 59-78-8861Bbgitco encounter wgmopddhs02/18/2025 1:30 PM EST Office Visit [facility] [address] [place] [address] Henrry Johnson MD [address] [place] [address] NOMS CI ENTStart: 07-14-2024 End: 11-23-4896Xnwqxqs encounter bxwocoelh90/03/2024 11:30 AM EDT Office Visit [facility] [address] [place] [address] Henrry Johnson MD [address] [place] [address] ArrivedNOMS CI ENTComment on above:ArrivedStart: 85-17-8435Xscbsrcro [facility]art: 05-07-2024 End: 80-84-4849Qmfulvoukecci metabolic 2000 panel - Serum or PlasmaComprehensive Metabolic Panel Lab Routine Hypopituitarism (Multi) Hypogonadism male Hyperparathyroidism (Multi) Hyperprolactinemia (Multi) Type 2 diabetes mellitus without complication, with long-term current use of insulin (Multi) Expected: 05/07/2024 (Approximate), Expires: 05/07/2025[facility] Work Phone: Comment on above:Expected: 05/07/2024 (Approximate), Expires: 05/07/2025Start: 05-07-2024 End: 37-05-4102Dxqaejei [Mass/volume] in Serum or PlasmaCortisol Lab Routine Hypopituitarism (Multi) Hypogonadism male Hyperparathyroidism (Multi) Hyperprol actinemia (Multi) Type 2 diabetes mellitus without complication, with long-term current use of insulin (Multi) Expected: 05/07/2024 (Approximate), Expires: 05/07/2025[facility] Service Area Work Phone: Comment on above:Expected: 05/07/2024 (Approximate), Expires: 05/07/2025Start: 05-07-2024 End: 95-31-9160Xwqhxwjklq A1c/Hemoglobin.total in BloodHemoglobin A1C Lab Routine Hypopituitarism (Multi) Hypogonadism male Hyperparathyroidism (Multi) Hyperprolactinemia (Multi) Type 2 diabetes mellitus without complication, with long-term current use of insulin (Multi) Expected: 05/07/2024 (Approximate), Expires: 05/07/2025[facility] Work Phone: Comment on above:Expected: 05/07/2024 (Approximate), Expires: 05/07/2025Start: 05-07-2024 End: 97-87-7808Zuuco 1996 panel - Serum or PlasmaLipid Panel Lab Routine Hypopituitarism (Multi) Hypogonadism male Hyperparathyroidism (Multi) Hyperp rolactinemia (Multi) Type 2 diabetes mellitus without complication, with long- term current use of insulin (Multi) Expected: 05/07/2024 (Approximate), Expires: [facility]/07/2025[facility] Work Phone: Comment on above:Expected: 05/07/2024 (Approximate), Expires: 05/07/2025Start: 05-07-2024 End: 12-80-9564Xhburfdhvhiw/Creatinine [Mass Ratio] in UrineAlbumin-Creatinine Ratio, Urine Random Lab Routine Hypopituitarism (Multi) Hypogonadism male Hyperparathyroidism (Multi) Hyperprolactinemia (Multi) Type 2 diabetes mellitus without complication, withlong-term current use of insulin (Multi) Expected: 05/07/2024 (Approximate), Expires: 05/07/2025[facility] Work Phone: Comment on above:Expected: 05/07/2024 (Approximate), Expires: 05/07/2025Start: 05-07-2024 End: 96-56-4397NC Pituitary and Sella turcica WO and W contrast IVMR sella w and wo IV contrast Imaging Routine Hypopituitarism (Multi) Hypogonadism male Hyperparathyroidism (Multi) Hyperprolactinemia (Multi) Type 2 diabetes mellitus without complication, with long-term current use of insulin (Multi) Thyroid nodule Expected: 05/07/2024, Expires: 05/07/2025[facility] Work Phone: Comment on above:Expected: 05/07/2024, Expires: 05/07/2025Start: 05-07-2024 End: 08-31-8834Jnyqxuxohy.intact [Mass/volume] in Serum or PlasmaParathyroid Hormone, Intact Lab Routine Hypopituitarism (Multi) Hypogonadism male Hyperparathyroidism (Multi) Hyperprolactinemia (Multi) Type 2 diabetes mellitus without complication, with long-term current use of insulin (Multi) Thyroid nodule Expected: 05/07/2024 (Approximate), Expires: 05/07/2025[facility] Work Phone: Comment on above:Expected: 05/07/2024 (Approximate), Expires: 05/07/2025Start: 05-07-2024 End: 55-44-4770Vuzebgaqo [Mass/volume] in Serum or PlasmaProlactin Lab Routine Hypopituitarism (Multi) Hypogonadism male Hyperparathyroidism (Multi) Hyperpro lactinemia (Multi) Type 2 diabetes mellitus without complication, with long-term current use of insulin (Multi) Expected: 05/07/2024 (Approximate), Expires: 05/07/2025[facility] Work Phone: Comment on above:Expected: 05/07/2024 (Approximate), Expires: 05/07/2025Start: 05-07-2024 End: 37-70-5666Efxktyzqawct,Free and TotalTestosterone,Free and Total Lab Routine Hypopituitarism (Multi) Hypogonadism male Hyperparathyroidism (Multi) Hyperprolactinemia (Multi) Type 2 diabetes mellitus without complication, with long-term current use of insulin (Multi) Expected: 05/07/2024 (Approximate), Expires: 05/07/2025[facility] Work Phone: Comment on above:Expected: 05/07/2024 (Approximate), Expires: 05/07/2025Start: 05-07-2024 End: 94-48-4986Mfgqhrrfj (T4) free [Mass/volume] in Serum or PlasmaThyroxine, Free Lab Routine Hypopituitarism (Multi) Hypogonadism male Hyperparathyroidism (Multi) Hyperprolactinemia (Multi) Type 2 diabetes mellitus without complication, with long-term current use of insulin (Multi) Expected: 05/07/2024 (Approximate), Expires: 05/07/2025[facility] Work Phone: Comment on above:Expected: 05/07/2024 (Approximate), Expires: 05/07/2025Start: 84-83-9752KneogorzcProMedica Bay Park Hospitaltart: 20-84-6470Rqgkvfr Directive DiscussionAdvance Directive DiscussionOhio State University Wexner Medical Centertart: 88-75-5260Cihby-19 Vaccine ( season)Covid-19 Vaccine ( season)[facility]art: 18-19-1844TIAZFJPFLC, Provider: Mandie Osborne, Status: Pen, Time: 11:15 AMVIRFUVGRAHAM, Provider: Mandie Osborne, Status: Pen, Time: 11:15 KZRF-Ebsrrmfbczdhe-XvwvsnzPeter [facility] Work Phone: Start: 38-41-9070Pkqumbqqu vaccinationINFLUENZA (#1) [facility]art: 23-64-8398SAIMRHCSMM, Provider: Ynes Sahni, Status: Pen, Time: 1:00 PMVIRFUTOBY, Provider: Ynes Sahni, Status: Pen, Time: 1:00 GOPK-Albocxidalyym-KpexwrwPeter [facility] Work Phone: Start: 01-37-1055Otiwytkm ScreeningDiabetes Screening [facility]ertart: 16-28-2522FRXVZYJ DIRECTIVE DISCUSSIONADVANCE DIRECTIVE DISCUSSIONOhio State University Wexner Medical Centertart: 60-42-9915Jlwea panelLipid ScreeningOhio State University Wexner Medical Centertart: 67-74-2493Mzwxflmoso A1c/Hemoglobin.total in ZzwhkMEH7KXrsmvmrti ClinicStart: 07-89-6519Gaeklpleutvg Vaccine: 65+ (2 of 2 - PCV)Pneumococcal Vaccine: 65+ (2 of 2 - PCV)[facility]: 13-71-4051Hnanmkyrmfur Vaccine: 65+ Years (2 of 2 - PCV)Pneumococcal Vaccine: 65+ Years (2 of 2 - PCV) [facility] HealthcareStart: 62-24-0918Pwrptibq Vaccine (3 of 3)Shingrix Vaccine (3 of 3)[facility]: 43-36-8426Hlvhibool B screeningURINE ALBUMIN:CREATININE RATIOOhio State University Wexner Medical Centertart: 69-42-0360Jzigpqiem B surface antibody levelLDL CHOLESTEROLOhio State University Wexner Medical Centertart: comp foot exam completedDIABETIC FOOT EXAMOhio State University Wexner Medical Centertart: 80-40-4887Gprggalkd C antibody, confirmatory testDILATED RETINAL EXAMOhio State University Wexner Medical Centertart: 48-47-9323XCMAXRURSJYU: 65+ (1 - PCV)PNEUMOCOCCAL: 65+ (1 - PCV)[facility]: 86-40-1713ODN patients and/or patients aged 60+ years (1 - 1-dose 60+ series)RSV patients and/or patients aged 60+ years (1 - 1-dose 60+ series)[facility]: 59-37-5312ZEU Vaccine (1 - 1-dose 60+ series)RSV Vaccine (1 - 1-dose 60+ series)[facility]: 65-48-5372VKIBZEXY VACCINE (1 of 2)SHINGRIX VACCINE (1 of 2)[facility]: 91-17-3630Tddwts Vaccines (1 of 2)Zoster Vaccines (1 of 2)[facility]: 72-34-7656MWTXPFZRN (FIT-DNA)COLOGUARD (FIT-DNA)[facility]: 02-09-8686GounjdzefywUMBRWJAVQYVCsastbgod ClinicStart: 30-95-8207BPXLQHQFNX CANCER SCREENINGCOLORECTAL CANCER SCREENINGOhio State University Wex[facility] Medical Centertart: 18-74-1388ZZ COLONOGRAPHYCT COLONOGRAPHYOhio State University Wexner Medical Centertart: 31-83-0305AKFQK OCCULT BLOOD FECAL OCCULT BLOODOhio State University Wexner Medical Centertart: 33-18-5248Zeonzjsaq for malignant neoplasm of colonOhio State University Wexner Medical Centertart: 97-55-3530HGCMAAFUOGTXAEKOJTWBGJPABF [facility]: 13-99-5722DOuO/Tdap/Td Vaccines (1 - Tdap)DTaP/Tdap/Td Vaccines (1 - Tdap)[facility]: 89-85-0468Uupqn microalbumin profileOhio State University Wexner Medical Centertart: 03-36-9051Vhdux screening for protein Diabetes: Urine Protein ScreeningUnHighland District Hospital: 70-54-3420Tepwrxs ScreeningAnxiety ScreeningOhio State University Wexner Medical Centertart: 1969 Depression ScreeningDepression ScreeningOhio State University Wexner Medical Centertart: 1968 HEPATITIS C SCREENINGHEPATITIS C SCREENINGOhio State University Wex[facility] Medical Centertart: 1969 Hepatitis C screeningHepatitis C ScreeningOhio State University [facility] Medical Centertart: 29-75-1462Iengt depression screening assessmentDEPRESSION SCREENINGOhio State University Wex[facility] Medical Centertart: 88-39-4902Sjfgiwvu foot examinationDiabetes: Foot ExamUnHighland District Hospital: 56-96-5301Uvgmylms screeningDiabetes: Retinopathy Screening [facility]: 43-36-9728Mggfbxhwrwvq Vaccine: 65+ Years (1 of 2 - PCV)Pneumococcal Vaccine: 65+ Years (1 of 2 - PCV)[facility]: 45-64-1473SJAXQ-19 VACCINE (#1)COVID-19 VACCINE (#1)[facility]: 79-15-4470UGLWZTJGL AORTIC ANEURYSM SCREENING ABDOMINAL AORTIC ANEURYSM SCREENINGOhio State University Wexner Medical Centertart: 19-35-8642Yuvxniekn aortic aneurysm screeningAbdominal Aortic Aneurysm ScreeningAvita Health System [facility] Start: 27-33-5283Cwosibbkew A1c measurementDiabetes: Hemoglobin M6SOqdvvxueroShelby Memorial Hospital: 76-44-1750Jqvzx panelLipid PanelUnHighland District Hospital: 1951Medicare Annual Wellness VisitMedicare Annual Wellness Visit (AWV)[facility]: 1950 Screening for malignant neoplasm of colonShelby Memorial Hospital: 84-89-7957Sxmecjg stimulating hormone measurementTSJackson C. Memorial VA Medical Center – MuskogeeComprehensive metabolic 1999 panel - Serum or PlasmaBarnesville HospitalComprehenve metabolic 1999 panel - Serum or Plasma [facility] HospitalPatient EducationColon polyps Diverticulosis (DC)[facility] Work Phone: [facility] referralC[facility] Work Phone: US Thyroid glandUS thyroid Imaging Routine Hypopituitarism (Multi) Hypogonadism male Hyperparathyroidism (Multi) Hyp erprolactinemia (Multi) Type 2 diabetes mellitus without complication, with long-term current use of insulin (Multi) Thyroid nodule Ordered: 05/07/2024 [facility] Work Phone: Comment on above:Ordered: 05/07/2024XR Abdomen Single viewPal[facility] Immunizations Immunization DateImmunizationNotesCare WebzrzhxZqgaqpwu30-14-4914jlvfzgxfo virus vaccine, unspecified formulationHenrry Johnson MD Work Phone: [facility] HospitalNddbwdpxyr33-09-8907Kcaaahzqv vaccine, quadrivalent, adjuvantedJoseluis Quiroz MD Work Phone: [facility]12-02-2023influenza virus vaccine, unspecified formulationHenrry Johnson MD Work Phone: [facility] HospitalVagybokgna64-78-7932Mvbxbig High-Dose Quadrivalent 0.7 ML Intramuscular Suspension Prefilled SyringeSamuel E Ross Work Phone: [facility]10-27-2021Fluad Quadrivalent 0.5 ML Intramuscular Prefilled SyringeSamuel E Ross Work Phone: [facility]03-10-2021Janssen COVID-19 Vaccine 0.5 ML Intramuscular SuspensionSamuel E Ross Work Phone: [facility]10-29-2020Fluad Quadrivalent 0.5 ML Intramuscular Prefilled SyringeSamuel E Ross Work Phone: [facility]10-14-2020influenza, seasonal, injectableSamuel E Ross Work Phone: [facility]10-14-2019Seasonal trivalent influenza vaccine, adjuvanted, preservative freeSamuel E Ross Work Phone: [facility]09-24-2018influenza, injectable, quadrivalent, preservative freeSamuel E Ross Work Phone: [facility]09-24-2018influenza virus vaccine, unspecified formulationRickey Osborne MD Work Phone: [facility] HospitalAmzypt13-67-6925xtaphbegf, high dose seasonal, preservative-freeSamuel E Ross Work Phone: [facility]10-11-2017influenza, high dose seasonal, preservative-freeSamuel E Ross Work Phone: [facility]10-02-2017 pneumococcal polysaccharide vaccine, 23 Kashif Dupont Work Phone: [facility]10-02-2017zoster vaccine recombinantSniles Dupont Work Phone: [facility]10-11-2016influenza, high dose seasonal, preservative-freeSamuel E Ross Work Phone: [phone] [place], [place] [address]09-30-2015influenza, seasonal, injectable, preservative freeSamuel E Ross Work Phone: [facility]09-24-2014influenza, seasonal, injectableSamuel E Cresencio Work Phone: [facility]09-24-2014 pneumococcal polysaccharide vaccine, 23 valMata [address]ont Work Phone: [facility]09-24-2014zoster vaccine, Carlita Dupont Work Phone: [phone] [place] [address] Payers DatePayer CategoryPayerPolicy [id number] 2024Medicare (Managed Care)[employer] .[id number] 2019Medicare [id number]-ahb [id number] 2.16.840.1.226255.3.579.[id number] 2.16.840.1.524555.3.57[id number] 2.16.840.1.493089.3.579.[id number] 2.16.840.1.131250.3.579.[id number] 2.16.840.1.878186.3.57[id number] 2.16.840.1.798896.3.579.[id number] 2.16.840.1.611459.3.57[id number] 2.16.840.1.009008.3.579.2.63822-00-2679Rcsqefn3247995 2.16.840.1.127055.3.579.[id number] 2.16.840.1.251352.3.579.2.[id number] 2.16.840.1.379328.3.57[id number] 2.16.840.1.593261.3.579.[id number] 2.16.840.1.258469.3.579.2.[id number] 2.16.840.1.114402.3.579.2.[id number] 2..840.1.465296.3.579.2.7591Aaurwxu0783517 2.840.1.629561.3.579.2.593 [id number] y755ati6-0vo4-85p5-xt7[id number] 2..840.1.907274.3.579.2.531 Social History DateTypeDetailFacilityStart: 01-21-2019 End: 20-40-6430Idjhev smokerFormer gwfsbxAX-Yjbfsyfwporfi-MOO [address] Work Phone: start: 06-30-2013 End: 90-10-2607Bmiyvlc smoking status NHISEx-smokerOhio [facility] University [facility] Cent[facility]art: 11-11-1965 End: 29-51-8923Qohgnjl of tobacco useCurrent smokerOhio State University Wexner Medical Centertart: 11-11-1966 End: 03-50-9958Zwfibrh of tobacco useCigarette SmokerOhio State University Wexner Medical Centertart: 06-30-2013 End: 53-45-9447Lhjmmdt use and exposureSmokeless tobacco non-userOhio State University Wexner Medical Centertart: 72-55-4886Wvpvsew intakeCurrent non-drinker of alcohol (finding) [facility]: 51-05-5950Fay Assigned At BirthNot on [facility]: 01-21-2019 End: 65-42-7744Ksy Assigned At [facility] [employer] Other Start: 80-63-9373Vbc Assigned At [facility] HospitalNational Score (1-100), lower number is lower riskNot on [facility] [place] smoking status NHISTobacco smoking consumption unknownGerman Hospital Work Phone: Start: 07-14-2024 End: 91-97-3227Fqheykozk beverage intakeLifetime non-drinker (finding)[facility] HealthcareSexMale (finding)[facility] Medical Equipment Procedure CodeEquipment CodeEquipment Original TextEquipment IdentifierDates [id number], [id number], [id number]: 52-49-7728Ipjlfoi on above:Use as instructedUSE WITH INSULIN PENS three times a dayPen Needle, Diabetic (Bd Ultra- Fine Mini Pen Needle) 31 gauge x 3/16 needleStart: 68-38-8525Bdh Needle, Diabetic (Bd Ultra-Fine Mini Pen Needle) 31 gauge x 3/16 needleStart: 28-97-9922Ous Needle, Diabetic (Bd Ultra-Fine Mini Pen Needle) 31 gauge x 3/16 needleStart: 01-07-2024 End: 24-23-2928Oef Needle, Diabetic (Bd Ultra-Fine Mini Pen Needle) 31 gauge x 3/16 needleStart: 28-02-4673Yeq Needle, Diabetic (Bd Ultra-Fine Mini Pen Needle) 31 gauge x 3/16 needleStart: 01-07-2024 End: 21-97-3351Dtt Needle, Diabetic (Bd Ultra-Fine Mini Pen Needle) 31 gauge x 3/16 needleStart: 43-42-7449Lmh Needle, Diabetic (Bd Ultra-Fine Mini Pen Needle) 31 gauge x 3/16 needleStart: 01-07-2024 End: 11-30-2024 Goals DatePatient GoalDesired Activity/State Clinical Notes 04-24-2022 to 07-16-2025 Note Date & GqoxYxzpKavctqnm13-91-4886 NoteSUBJECTIVE Reason for Visit: Gadiel Liang is a 74 y.o. year old male patient being seen for hospital follow-up, stress test. HPI: Gadiel Liang is a 74 y.o. year old male with significant medical history of heart failure with improved ejection fraction, persistent A-fib status post ablation (on apixaban), history of TIA, diabetes, CAD status post heart cath 11/19/2022 with mild-moderate CAD no intervention, and hyperlipidemia. 07/16/2025 office visit: Patient was seen and evaluated in the office today, accompanied by his following hospitalization for shortness of breath and dizziness He reports doing well overall, denying chest pain, palpitations, or lower extremity edema. He does note a single episode of dizziness associated with positional change, but denies any presyncope or syncopal events. He states his systolic blood pressures at home generally run in the low 100s. His reports that over the past several months she has noticed increased fatigue and shortness of breath compared to his baseline. For example, during a recent trip to [place], he required the use of a wheelchair due to fatigue. In light of his negative cardiac testing and unremarkable exam today, I recommended that he follow up with his primary care provider to discuss pulmonary function testing, further anemia workup, and/or a sleep study for further evaluation of sleepiness, fatigue, and SOB 04/20/2025 office visit (Dr. Rosenberg): Patient is here today for a 6 month follow up. Patient states he has SOB, MANNING, fatigue. Medical History[1] Surgical History[2] Problem List[3] family history includes No Known Problems in his brother, father, father's brother, father's sister, maternal grandfather, maternal grandmother, mother, mother's brother, mother's sister, paternal grandfather, paternal grandmother, sister, and another family member. Social History[4] OBJECTIVE Visit Vitals Smoking Status Former Physical Exam Constitutional: General Appearance: well-developed, appears stated age. Level of Distress: no acute distress. Neck: Jugular Veins: normal jugular venous pressure. Lungs: Auscultation: no rales or rhonchi and normal breath sounds. Cardiovascular: Rate And Rhythm: regular Heart Sounds: normal S1 and s2; Systolic Murmur: not heard. Diastolic Murmur: not heard. Extremities: no edema Peripheral Pulses: Pulses: full and equal in all extremities except if noted. Abdomen: Inspection and Palpation: non distended or tender and soft. Musculoskeletal: Inspection: no joint tenderness or swelling. Neurologic: Gait: normal gait. Psychiatric: Mental Status: alert and normal affect. Skin: Inspection and Palpation: warm and dry. Allergies: Allergies[5] Outpatient Medications: Current Outpatient Medications Medication Instructions apixaban (ELIQUIS) 5 mg, oral, 2 times daily buPROPion SR (Wellbutrin SR) 150 mg 12 hr tablet Take 1 tablet twice a day by oral route. cabergoline (Dostinex) 0.5 mg tablet Take 1 tablet every other day by oral route. carvedilol (COREG) 6.25 mg, oral, 2 times daily escitalopram (LEXAPRO) 10 mg, oral, Daily esomeprazole (NEXIUM) 40 mg, oral, Daily before breakfast, Do not open capsule. Farxiga 10 mg, Every morning furosemide (Lasix) 40 mg tablet Take 1 tablet by mouth daily for fluid retention as directed Lantus Solostar U-100 Insulin 45 Units, subcutaneous, Every morning levothyroxine (SYNTHROID, LEVOXYL) 37.5 mcg, Daily lisinopril 5 mg, oral, Daily metFORMIN (GLUCOPHAGE) 500 mg, oral, Nightly rosuvastatin (CRESTOR) 40 mg, Every morning sildenafil (VIAGRA) 25 mg, oral, Daily PRN spironolactone (ALDACTONE) 12.5 mg, oral, Every morning testosterone (ANDROGEL) 50 mg, transdermal, Daily, As directed Recent Labs: No visits with results within 6 Month(s) from this visit. Latest known visit with results is: Admission on 05/02/2023, Discharged on 05/03/2023 Component Date Value Protime 05/02/2023 12.9 INR 05/02/2023 0.98 Ventricular Rate 05/02/2023 55 Atrial Rate 05/02/2023 55 VA Interval 05/02/2023 244 QRS DURATION 05/02/2023 146 QT Interval 05/02/2023 496 QTC CALCULATION(BAZETT) 05/02/2023 474 P [place] 05/02/2023 47 R-[place] 05/02/2023 -46 T Wave [place] 05/02/2023 -31 Glucose POC 05/02/2023 198 (H) Glucose POC 05/02/2023 108 (H) Glucose POC 05/02/2023 113 (H) Glucose POC 05/02/2023 125 (H) Sodium 05/03/2023 137 Potassium 05/03/2023 3.6 Chloride 05/03/2023 104 CO2 05/03/2023 28 BUN 05/03/2023 11 Creatinine 05/03/2023 0.79 Glucose 05/03/2023 176 (H) Calcium 05/03/2023 8.9 Anion Gap 05/03/2023 9 eGFR 05/03/2023 95.0 BUN/Creatinine Ratio 05/03/2023 13.9 Auto WBC 05/03/2023 8.32 RBC 05/03/2023 4.21 Hemoglobin 05/03/2023 12.6 (L) Hematocrit 05/03/2023 39.3 MCV 05/03/2023 93.3 MCH 05/03/2023 29.9 MCHC 05/03/2023 32.1 RDW 05/03/2023 12.8 Platelets 05/03/2023 179 Glucose POC 05/03/2023 176 (H) Glucose POC (more content not included)...[facility] 05-24-2025 Evaluation note* Diagnosis Onset Date Resolution Status Admit Date Hyperlipidemia acuteJuly 2024 9:50amHypertensionacuteJuly 2024 9:50amHypothyroidism acuteJuly 2024 9:50amInsulin dependent diabetes mellitusacuteJuly 2024 9:50amMedicare annual wellness visit, subsequentacuteJuly 2024 9:50am Prolactin secreting pituitary adenomaacuteJuly 2024 9:50amType 2 diabetes mellitus with diabetic polyneuropathyacuteJuly 2024 9:50amType 2 diabetes mellitus with hyperglycemiaacuteJuly 2024 9:50amType 2 diabetes mellitus with other circulatory complicationsacuteJuly 2024 9:50amInsulin dependent diabetes mellitusacuteSept2024 9:53am [facility] Work Phone: 1(867) 838-806007-14-2025 Evaluation note* Diagnosis Onset Date Resolution Status Admit Date Hyperlipidemia acuteJuly 2024 9:50amHypertensionacuteJuly 2024 9:50amHypothyroidism acuteJuly 2024 9:50amInsulin dependent diabetes mellitusacuteJuly 2024 9:50amMedicare annual wellness visit, subsequentacuteJuly 2024 9:50am Prolactin secreting pituitary adenomaacuteJuly 2024 9:50amType 2 diabetes mellitus with diabetic polyneuropathyacuteJuly 2024 9:50amType 2 diabetes mellitus with hyperglycemiaacuteJuly 2024 9:50amType 2 diabetes mellitus with other circulatory complicationsacuteJuly 2024 9:50amAnemiaacute Jodie 2024 9:53amFatigueacuteSept2024 9:53amHyperlipidemia acuteSe2024 9:53amHypertensionacuteJuly 21, 2025 9:53am HypothyroidismacuteJuly 21, 2025 9:53amIdiopathic hypersomnia with long sleep timeacuteJuly 21, 2025 9:53amInsulin dependent diabetes mellitus acuteJuly 21, 2025 9:53amProlactin secreting pituitary adenomaacute July 21, 2025 9:53amType 2 diabetes mellitus with diabetic polyneuropathy acuteSe2024 9:53amType 2 diabetes mellitus with hyperglycemiaacute July 21, 2025 9:53amType 2 diabetes mellitus with other circulatory complicationsacuteSept2024 9:53amHistory of CVA (cerebrovascular accident)acuteAugust 10, 2025 2:08pmNormocytic anemiaacuteAugust 10, 2025 2:08pm [facility] Work Phone: 1(559) 531-265006-10-2025 NoteUT Electrophysiology Consult Note [facility] Reason for Consultation: Atrial fibrillation, s/p [...] on 10/15 and he went to the [facility] emergency department was found to [...] Use: Not At Risk (12/24/2019) Re[facility], [facility] AUDIT-C Frequency of Alcohol Consumption: Never [...] on file Intimate Partner Violence: Unknown (05/05/2024) [facility] Fear of Current or [...] Prior to Visit Me (more content not included)...[facility]04-03-2025 History of Present illness Narrative* Angela Cortez - 02/11/2025 1:15 PM EDT Images from the original note were not [...] inguinal hernia signs, but his pain is inhis right lower quadrant. It has been going on for two to three months. He states he had a colonoscopy in the past. He has not seen a general surgeon. There were some concern that his pain was comingfrom his hip. He has no groin pain or radicular pattern. He is actually feeling somewhat better. Onthe way over, he states he had no [...] Subcutaneous 30 units in AM 15 units inPM levothyroxine (Synthroid, Levoxyl) 75 MCG tablet Daily [...] points to his right lower quadrant just abovehis iliac brim. He has no rebound or signs of tenderness in that area. I do not appreciate a hernia. Scrotal testicular exam is not performed and will be deferred to his primary care physician. Thereis no intracapsular irritability. Log roll and heel strike is negative. Bench and straight leg raise testing is negative. The patient is neurovascularly intact distally without sign of deficit. X-rays and imaging permanently saved to the patient's record were reviewed taken recently performedby Isaura Garber, nurse practitioner, through the web [...] point, I do not see the need fororthopedic surgery. He voices verbal understanding. He is [...] 02/16/2025 12:10 PM EDT documented in this encounterChristian [id number] History of Present illness Narrative* Henrry Johnson MD - 12/29/2024 1:30 PM EST Subjective Patient ID: Alexis Liang is a 74 y.o. male who presents for Thyroid Nodule (5 month ultrasound [facility] 12/23/24) Thyroid US shows a 4mm RT and 9mm LT nodule, compared to an 8mm RT nodule 6 mo ago. Family History Problem Relation Name Age of Onset Diabetes type II Mother Active Ambulatory Problems Diagnosis Date Noted Alzheimer's disease with late onset ([facility]) 06/27/2024 Dementia in other diseases classified elsewhere, unspecified severity, without behavioral disturbance, psychotic disturbance, mood disturbance, and anxiety ([facility]) 06/27/2024 History of ischemic stroke 06/27/2024 Personality change 06/27/2024 Pituitary mass ([facility]) 06/27/2024 Depression ([facility]) 06/27/2024 Memory impairment 06/27/2024 Abnormal stress test 04/28/2015 Acquired hypothyroidism ([facility]) 07/09/2024 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[facility]) 02/23/2015 Atrial flutter ([facility]) 11/28/2022 Carotid stenosis, bilateral 04/01/2024 Chronic systolic heart failure ([facility]) 11/15/2022 Constipation 07/09/2024 CVA (cerebral vascular accident) ([facility]) 10/26/2022 Diverticulosis of colon 07/09/2024 History of transient ischemic attack (TIA) 10/26/2022 Hypercalcemia 12/23/2012 Hyperlipidemia ([facility]) 07/09/2024 Hypertension ([facility]) 07/09/2024 Hypogonadism male 12/23/2012 Incontinence of feces with fecal urgency 07/09/2024 Paroxysmal atrial fibrillation (CMS/HCC) 10/18/2022 Persistent atrial fibrillation (HCC) ([facility]) 10/16/2022 PFO (patent foramen ovale) 11/28/2022 Primary hyperparathyroidism ([facility]) 12/24/2019 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 Pure hypercholesterolemia ([facility]) 07/09/2024 Thyroid nodule ([facility]) 11/16/2009 Type 2 diabetes mellitus with hyperglycemia ([facility]) 07/09/2024 Coronary artery disease involving [place] coronary artery of [place] heart without angina pectoris ([facility]) 09/16/2024 Diabetes mellitus due to underlying condition with diabetic cataract ([facility]) 09/16/2024 Nonischemic cardiomyopathy ([facility]) 09/16/2024 Overweight (BMI 25.0-29.9) 12/29/2024 Type 2 diabetes mellitus without complication ([facility]) 09/24/2012 Vasovagal syncope 10/26/2022 Resolved Ambulatory Problems Diagnosis Date Noted Diarrhea 07/09/2024 Dietary counseling and surveillance 07/09/2024 Rotator cuff strain 06/16/2013 S/P ablation of atrial fibrillation 05/02/2023 Past Medical History: Diagnosis Date Afib ([facility]) CHF (congestive heart failure) ([facility]) Diabetes mellitus type II, controlled ([facility]) GERD (gastroesophageal reflux disease) Hypercholesterolemia ([facility]) Hypogonadism in male Hypothyroid ([facility]) Stroke ([facility]) 2016 Past Surgical History: Procedure [...] Subcutaneous 30 units in AM 15 units inPM levothyroxine (Synthroid, Levoxyl) 75 MCG tablet Take [...] then annually if stable documented in this encounterChristian [id number] NoteUT Cardiology - [facility] Subjective Gadiel Liang is [...] (patent foramen ovale) Chronic systolic heart failure ([facility]) S/P ablation of atrial fibrillation Carotid stenosis, [...] Past Medical History: Diagnosis Date Atrial fibrillation ([facility]) AV block, 1st degree CHF (congestive heart failure) (CMS/HCC) Diabetes mellitus (CMS/HCC) GERD (gastroesophageal reflux disease) Hypothyroidism Memory changes PFO (patent foramen ovale) 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CMS/HCC) Stroke ([facility]) TIA (transient ischemic attack) Past Surgical History: [...] skin in the mor (more content not included)...[facility]09-03-2024 History of Present illness Narrative* Henrry Johnson MD - 07/14/2024 11:30 AM EDT Subjective Patient ID: Alexis Liang is a 73 y.o. male who presents for Thyroid Nodule (Ultrasound 06/09/24. ) Pt has a long h/o thyroid nodules and a remote h/o parathyroidectomy. H/O prolactinoma tx medically. 05/3024 thyroid US shows a 4q5h3nd RT TR5 nodule. 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 Review of Systems All other systems reviewed and are negative. Family History Problem Relation Name Age of Onset Diabetes type II Mother Active Ambulatory Problems Diagnosis Date Noted Alzheimer's disease with late onset ([facility]) 06/27/2024 Dementia in other diseases classified elsewhere, unspecified severity, without behavioral disturbance, psychotic disturbance, mood disturbance, and anxiety (CMS/HCC) 06/27/2024 History of ischemic stroke 06/27/2024 Personality change 06/27/2024 Pituitary mass ([facility]) 06/27/2024 Depression ([facility]) 06/27/2024 Memory impairment 06/27/2024 Abnormal stress test 04/28/2015 Acquired hypothyroidism ([facility]) 07/09/2024 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[facility]) 02/23/2015 Atrial flutter ([facility]) 11/28/2022 Carotid stenosis, bilateral 04/01/2024 Chronic systolic heart failure (CMS/HCC) 11/15/2022 Constipation 07/09/2024 CVA (cerebral vascular accident) ([facility]) 10/26/2022 Diverticulosis of colon 07/09/2024 History of transient ischemic attack (TIA) 10/26/2022 Hypercalcemia 12/23/2012 Hyperlipidemia (CMS/HCC) 07/09/2024 Hypertension (CMS/[facility]) 07/09/2024 Hypogonadism male 12/23/2012 Incontinence of feces with fecal urgency 07/09/2024 Paroxysmal atrial fibrillation (CMS/HCC) 10/18/2022 Persistent atrial fibrillation (HCC) ([facility]) 10/16/2022 PFO (patent foramen ovale) 11/28/2022 Primary hyperparathyroidism ([facility]) 12/24/2019 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CMS/HCC) 11/16/2009 Pure hypercholesterolemia (CMS/HCC) 07/09/2024 Thyroid nodule ([facility]) 11/16/2009 Type 2 diabetes mellitus with hyperglycemia ([facility]) 07/09/2024 Resolved Ambulatory Problems Diagnosis Date Noted Diarrhea 07/09/2024 Dietary counseling and surveillance 07/09/2024 Rotator cuff strain 06/16/2013 S/P ablation of atrial fibrillation 05/02/2023 Past Medical History: Diagnosis Date Afib ([facility]) CHF (congestive heart failure) ([facility]) Diabetes mellitus type II, controlled ([facility]) GERD (gastroesophageal reflux disease) Hypercholesterolemia ([facility]) Hypogonadism in male Hypothyroid ([facility]) Stroke ([facility]) 2016 Past Surgical History: Procedure [...] Subcutaneous 30 units in AM 15 units inPM levothyroxine (Synthroid, Levoxyl) 75 MCG tablet Take [...] if sig growth found documented in this encounterChristian [id number] Telephone encounter Note* Telephone Encounter - Greg River - 06/18/2024 4:18 PM EDTSummary: Sav Received a mail from Sav with a notice on the Authorization for MRI, Brain, W/O Contrast Dated: 06/04/24 Status: Approve Service Requested: MRI, Brain, W/O Contrast Effective Dates: 06/04/2024 - 09/01/2024 Reference #: [id number] Uploaded into scan docs. Please allow time for upload. [facility]08-08-2024 Miscellaneous Notes* Telephone Encounter - Greg River - 06/18/2024 4:18 PM EDTSummary: Sav Received a mail from Sav with a notice on the Authorization for MRI, Brain, W/O Contrast Dated: 06/04/24 Status: Approve Service Requested: MRI, Brain, W/O Contrast Effective Dates: 06/04/2024 - 09/01/2024 Reference #: [id number] Uploaded into scan docs. Please allow time for upload. documented in this encounterAvita Health [facility]06-27-20[facility] History of Present illness Narrative* Mandie Osborne MD - 05/07/2024 12:00 PM EDT Consults Reason For Consult Pituitary d, high [...] (10/10/2022), and Type 2 diabetes mellitus with otherspecified complication (Multi) (10/10/2022). Surgical History He has [...] with long-term current use of insulin (Multi) E11.9,Z79.4 Relevant Medications Lantus Solostar U-100 Insulin 100 [...] of stroke -Up to date with [facility] follow up yearly he did this yearly [...] which included preparing to see the patient, pszu-jp-gsnz patient care, completing clinical documentation, obtaining and [...] verified. Mandie Osborne MD documented in this encounterGerman Hospital Work Phone: 1(646) 203-327206-04-2024 Procedure noteBarnesville Hospital12-19-2023 Evaluation note* Encounter Date Diagnosis Assessment Notes Treatment Notes Treatment Clinical Notes Oct, Type 2 diabetes mellitus with hy perglycemia (ICD-10 - E11.65) Educated patient on the importance of meal content and meal timing. Patient is to have a snack at bedtime to avoid Hypoglycemic episodes. Increase daily exercise routine and watch diet. Continue withabove medication and we will continue to monitor every 3 months. Oct,Mixed hyperlipidemia (ICD-10 - E78.2)Patient to continue to watch diet and increase exercise routine. Remain active as tolerated and we will continue to monitor with routine blood work. Patient is to continue with above medication as directed. Oct,Screening PSA (prostate specific antigen) (ICD-10 - Z12.5) Oct,nxiety (ICD-10 - F41.9)Pt improved w present med increase in dose. [facility] Other 11-03-2023 Evaluation note* Encounter Date Diagnosis Assessment Notes Treatment Notes Treatment Clinical Notes Sep, Anxiety (ICD-10 - F41.9) [facility] Other 10-31-2023 Evaluation note* Encounter Date Diagnosis Assessment Notes Treatment Notes Treatment Clinical Notes Aug, Anxiety (ICD-10 - F41.9) [facility] Other 10-09-2023 Evaluation note* Encounter Date Diagnosis Assessment Notes Treatment Notes Treatment Clinical Notes Aug, Anxiety (ICD-10 - F41.9) Has been on the wellbutren at the same dose for 30 years. Notes increased anxiety. Denies insomnia.Denies headaches. Agrees to decrease to 1 tablet daily and add lexapro. Explained that med is oftenused more for depression than anxiety. Possibly SNRIs are actually increasing his anxiety. Will monitor in 3-4 weeks. Aug,Erectile disorder due to medical condition in male patient (ICD-10 - N52.1)Pt states med works ok, but need increase from 25mg to 50mg for better results. [facility] Other 11-30-2022 Chief complaint Narrative - Reported* [...] Patient presents for a follow up visit. SM-Dxvwdfjnhmghj-RFZ [address] Work Phone: 1(472) 242-198608-22-2022 Miscellaneous Notes* Telephone Encounter - Janee Hughes - 07/02/2022 2:37 PM EDT Received Thyroid US report from [facility]. Indexed into chart. documented in this encounterAvita Health [facility]06-14-2022 Chief complaint Narrative - Reported* An [...] follow-up for hypothyroidism, pituitary, and diabetes today. NB-Mdpfeopb-NgabizvSan[facility] [address] Work Phone: Evaluation noteNo [employer] Other Evaluation note* Diagnosis Onset Date Resolution Status Bronchitis noneactiveConstipationacuteIncontinence of feces with fecal urgencyacute [facility] Work Phone: Evaluation note* Diagnosis Hypopituitarism (Multi)- Primary Panhypopituitarism Hypogonadism male Other testicular hypofunction Hyperparathyroidism (Multi) Hyperparathyroidism, unspecified Hyperprolactinemia (Multi) Other and unspecified anterior pituitary hyperfunction Type 2 diabetes mellitus without complication, with long-term current use of insulin (Multi) Thyroid nodule Nontoxic uninodular goiter documented in this encounter [facility] Work Phone: Evaluation note* Diagnosis Thyroid nodule (CMS/HCC)- Primary Nontoxic uninodular goiter documented in this encounter [facility] HealthcareEvaluation note* Diagnosis Thyroid nodule (CMS/HCC)- Primary Nontoxic uninodular goiter documented in this encounter [facility] HealthcareEvaluation note* Diagnosis Primary osteoarthritis of right hip- Primary documented in this encounter [facility] HealthcareEvaluation note* Diagnosis Onset Date Resolution Status Admit Date Hyperlipidemia acuteJuly 2024 9:50amHypertensionacuteJuly 2024 9:50amHypothyroidism acuteJuly 2024 9:50amInsulin dependent diabetes mellitusacuteJuly 2024 9:50amMedicare annual wellness visit, subsequentacuteJuly 2024 9:50am Prolactin secreting pituitary adenomaacuteJuly 2024 9:50amType 2 diabetes mellitus with diabetic polyneuropathyacuteJuly 2024 9:50amType 2 diabetes mellitus with hyperglycemiaacuteJuly 2024 9:50amType 2 diabetes mellitus with other circulatory complicationsacuteJuly 2024 9:50am [facility] Work Phone: History and physical note Author Merly Paul [facility] April 14, 2024 11:26amNote Date/TimeJune 2023 11:26[place] [address] Gastroenterology H&P Signed Patient: Gadiel Liang MR#: [id number] : 1950 Acct:[id number] Age/Sex: 73 / M Adm Date: 4 Loc: Room: Type: [facility] Attending Dr: Merly Paul DO Copies to: DO Joseluis Chery MD~ Date of Service: 04/14/2024 HISTORY & PHYSICAL: Patient's history with special attention to the cardiovascular, pulmonary systems and the current problem was reviewed with the patient immediately prior to the procedure. Present medications and doses reviewed in the EMR. Allergies and pertinent laboratory tests were also re viewedat this time in the EMR. The physical [...] by Merly Paul DO> 04/14/24 1126 [facility] Work Phone: History general Narrative - Reported* Type Description Date Medical History Diabetes mellitus Medical HistoryHyperlipemiaMedical HistoryAcid refluxMedical HistoryHiatal herniaMedical HistoryPituitary tumorSurgical Historyknee surgerySurgical History shoulder surgerySurgical Historythyroid nodule removedHospitalization History hematoma related to [id number] HistoryTIA03/2020Hospitalization GhcsyayEHNWRJKNPAW84/2020 [facility] Other History of Present illness Narrative* This [...] * -Most recent US on 12/2019 in [place], records not available * -Due for US [...] on file * Occupational History * Occupation: [employer] * Employer: [employer] * Comment: retired * Tobacco Use * Smoking status: Former Smoker * Years: 16.00 * Quit date: 12/12/1992 * Years since quittin.1 * Smokeless tobacco: Never Used * Substance and Sexual Activity * Alcohol use: No * Drug use: No * Sexual activity: Not on file * Other Topics * Concerns: * Not on file * Social History Narrative * 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 VM-Qewrzpyjyvzkw-NUP [address] Work Phone: reason for referral (narrative)No reason for referral information availableC[facility] Clinic [facility]st [facility] Work Phone: Summary Purpose Family History No Family History Records FoundUnknown Family Member Name Dates Details : Mother, Father Status:ActiveFamily history of malignant neoplasm of urinary bladder: Father (V16.52, Z80.52) Status:ActiveFamily history of pancreatic cancer: Brother(V16.0, Z80.0) Status:ActiveFamily history of diabetes mellitus: Mother(V18.0, Z83.3) Status:Active Unknown Family Member Name Dates Details : Mother, Father Status:ActiveFamily history of malignant neoplasm of urinary bladder: Father (V16.52, Z80.52) Status:ActiveFamily history of pancreatic cancer: Brother(V16.0, Z80.0) Status:ActiveFamily history of diabetes mellitus: Mother(V18.0, Z83.3) Status:Active Unknown Family Member Name Dates Details Family history of diabetes m ellitus: Mother(V18.0, Z83.3) Status:ActiveFamily history of pancreatic cancer: Brother(V16.0, Z80.0) Status:ActiveFamily history of malignant neoplasm of urinary bladder: Father (V16.52, Z80.52) Status:ActiveDeceased: Mother, Father Status:Active Unknown Family Member Name Dates Details : Mother, Father Status:ActiveFamily history of malignant neoplasm of urinary bladder: Father (V16.52, Z80.52) Status:ActiveFamily history of pancreatic cancer: Brother(V16.0, Z80.0) Status:ActiveFamily history of diabetes mellitus: Mother(V18.0, Z83.3) Status:Active Unknown Family Member Name Dates Details : Mother, Father Status:ActiveFamily history of malignant neoplasm of urinary bladder: Father (V16.52, Z80.52) Status:ActiveFamily history of pancreatic cancer: Brother(V16.0, Z80.0) Status:ActiveFamily history of diabetes mellitus: Mother(V18.0, Z83.3) Status:Active Unknown Family Member Name Dates Details : Mother, Father Status:ActiveFamily history of malignant neoplasm of urinary bladder: Father (V16.52, Z80.52) Status:ActiveFamily history of pancreatic cancer: Brother(V16.0, Z80.0) Status:ActiveFamily history of diabetes mellitus: Mother(V18.0, Z83.3) Status:Active Unknown Family Member Name Dates Details : Mother, Father Status:ActiveFamily history of malignant neoplasm of urinary bladder: Father (V16.52, Z80.52) Status:ActiveFamily history of pancreatic cancer: Brother(V16.0, Z80.0) Status:ActiveFamily history of diabetes mellitus: Mother(V18.0, Z83.3) Status:Active Unknown Family Member Name Dates Details : Mother, Father Status:ActiveFamily history of malignant neoplasm of urinary bladder: Father (V16.52, Z80.52) Status:ActiveFamily history of pancreatic cancer: Brother(V16.0, Z80.0) Status:ActiveFamily history of diabetes mellitus: Mother(V18.0, Z83.3) Status:Active Unknown Family Member Name Dates Details : Mother, Father Status:ActiveFamily history of malignant neoplasm of urinary bladder: Father (V16.52, Z80.52) Status:ActiveFamily history of pancreatic cancer: Brother(V16.0, Z80.0) Status:ActiveFamily history of diabetes mellitus: Mother(V18.0, Z83.3) Status:Active Unknown Family Member Name Dates Details : Mother, Father Status:ActiveFamily history of malignant neoplasm of urinary bladder: Father (V16.52, Z80.52) Status:ActiveFamily history of pancreatic cancer: Brother(V16.0, Z80.0) Status:ActiveFamily history of diabetes mellitus: Mother(V18.0, Z83.3) Status:Active Unknown Family Member Name Dates Details : Mother, Father Status:ActiveFamily history of malignant neoplasm of urinary bladder: Father (V16.52, Z80.52) Status:ActiveFamily history of pancreatic cancer: Brother(V16.0, Z80.0) Status:ActiveFamily history of diabetes mellitus: Mother(V18.0, Z83.3) Status:Active Unknown Family Member Name Dates Details : Mother, Father Status:ActiveFamily history of malignant neoplasm of urinary bladder: Father (V16.52, Z80.52) Status:ActiveFamily history of pancreatic cancer: Brother(V16.0, Z80.0) Status:ActiveFamily history of diabetes mellitus: Mother(V18.0, Z83.3) Status:Active Unknown Family Member Name Dates Details : Mother, Father Status:ActiveFamily history of malignant neoplasm of urinary bladder: Father (V16.52, Z80.52) Status:ActiveFamily history of pancreatic cancer: Brother(V16.0, Z80.0) Status:ActiveFamily history of diabetes mellitus: Mother(V18.0, Z83.3) Status:Active Relationship Condition Age at Onset Recorded Date/T abhijit brother Unknown Malignant neoplasm of pancreasUnknownfatherDeceasedUnknownMalignant neoplasm of urinary bladderUnknownNot SpecifiedDeceasedUnknownDiabetes mellitusUnknown HypertensionUnknown Relationship Condition Age at Onset Recorded Date/T abhijit brother Unknown Malignant neoplasm of pancreasUnknownfatherDeceasedUnknownMalignant neoplasm of urinary bladderUnknownmotherDeceasedUnknownDiabetes mellitusUnknownHypertension Unknown Advance Directives No Advanced Directives Records Found Advance Directive Response Recorded Date/ Time Advance Directives No October 17, 2021 8:22am Advance Directive Response Recorded Date/ Time Advance Directives No April 21 9:26am Chief Complaint and Reason for Visit Chief Complaint Cough bowel urgency- more frequent in the last month. diarrhea/constipation diarrhea/constipationReason for VisitBronchitis Constipation Incontinence of feces with fecal urgency Chief Complaint Admit Date Wellness May 24, 2025 9:50 am Reason for Visit Admit Date Hyperlipidemia May 24, 2025 9:50 am Hypertension May 24, 2025 9:50 am Hypothyroidism May 24, 2025 9:50 am Insulin dependent diabetes mellitus May 24, 2025 9:50am Medicare annual wellness visit, hanhe nt May 24, 2025 9:50am Prolactin secreting pituitary adenoma Ju ly 2024 9:50am Type 2 diabetes mellitus with diabetic p olyneuropathy May 24, 2025 9:50am Type 2 diabetes mellitus with hyperglyce glenn May 24, 2025 9:50am Type 2 diabetes mellitus with other circ ulatory complications May 24, 2025 9:50am Chief Complaint Admit Date Wellness May 24, 2025 9:50 am Amb Documentation July 09, 2025 11 :32am Amb Documentation July 15, 2025 8:18am [facility] follow up, Cardiac issues July 21, 2025 9:53am Reason for Visit Admit Date Hyperlipidemia May 24, 2025 9:50 am Hypertension May 24, 2025 9:50 am Hypothyroidism May 24, 2025 9:50 am Insulin dependent diabetes mellitus May 24, 2025 9:50am Medicare annual wellness visit, subseque nt May 24, 2025 9:50am Prolactin secreting pituitary adenoma Ju ly 2024 9:50am Type 2 diabetes mellitus with diabetic p olyneuropathy May 24, 2025 9:50am Type 2 diabetes mellitus with hyperglyce glenn May 24, 2025 9:50am Type 2 diabetes mellitus wit h other circulatory complications May 24, 2025 9:50am Insulin dependent diabetes mellitus Sept emb2024 9:53am Chief Complaint Admit Date Wellness May 24, 2025 9:50 am Amb Documentation July 09, 2025 11 :32am Amb Documentation July 15, 2025 8:18am [facility] follow up, Cardiac issues July 21, 2025 9:53am NEW - Anemia /Fatigue August 10 2:08pm Anemia / Fatigue 2025 2:10pm Reason for Visit Admit Date Hyperlipidemia May 24, 2025 9:50 am Hypertension May 24, 2025 9:50 am Hypothyroidism May 24, 2025 9:50 am Insulin dependent diabetes mellitus May 24, 2025 9:50am Medicare annual wellness visit, subseque nt May 24, 2025 9:50am Prolactin secreting pituitary adenoma Ju ly 2024 9:50am Type 2 diabetes mellitus with diabetic p olyneuropathy May 24, 2025 9:50am Type 2 diabetes mellitus with hyperglyce glenn May 24, 2025 9:50am Type 2 diabetes mellitus wit h other circulatory complications May 24, 2025 9:50am Anemia July 21, 2025 9:53am Fatigue July 21, 2025 9:53am Hyperlipidemia July 21, 2025 9:53am Hypertension July 21, 2025 9:53am Hypothyroidism July 21, 2025 9:53am Idiopathic hypersomnia with long sleep t abhijit July 21, 2025 9:53am Insulin dependent diabetes mellitus Sept ember 2024 9:53am Prolactin secreting pituitary adenoma Se ptember 2024 9:53am Type 2 diabetes mellitus with diabetic p olyneuropathy July 21, 2025 9:53am Type 2 diabetes mellitus with hyperglyce glenn July 21, 2025 9:53am Type 2 diabetes mellitus wit h other circulatory complications July 21, 2025 9:53am History of CVA (cerebrovascular accident ) 2025 2:08pm Normocytic anemia 2025 2:08pm Reason for Referral SpecialtyDiagnoses / ProceduresReferred By ContactReferred To ContactRadiology Diagnoses Hypopituitarism (Multi) Hypogonadism male Hyperparathyroidism (Multi) Hyperprolactinemia (Multi) Type 2 diabetes mellitus without complication, with long-term current use of insulin (Multi) Thyroid nodule Procedures MR sella [place] [address] [address] [facility] Department of Medicine-[place] [address] Referral IDStatusReasonCascade DateExpiration DateVisits RequestedVisits [id number] Review Perform Procedure [id number] / ProceduresReferred By ContactReferred To ContactRadiology Diagnoses Hypopituitarism (Multi) Hypogonadism male Hyperparathyroidism (Multi) Hyperprolactinemia (Multi) Type 2 diabetes mellitus without complication, with long-term current use of insulin (Multi) Thyroid [place] [address] [facility] [address] Referral IDStatusReasonStart DateExpiration DateVisits RequestedVisits [id number] Perform Procedure Additional Source Comments (unrecognized sect ion and content) No Status Records FoundNo Status Records FoundNo Status Records FoundNo Status Records FoundNo Status Records FoundNo Status Records FoundNo Status Records FoundNo Status Records Found INFORMATION SOURCE (unrecogn ized section and content) DATE CREATED AUTHOR 05/07/2018 [facility] DATE CREATED AUTHOR AUTHOR'S ORGANIZ ATION 10/11/2022 [facility] DATE CREATED AUTHOR AUTHOR'S ORGANIZ ATION 10/11/2022 [facility] DATE CREATED AUTHOR AUTHOR'S ORGANIZ ATION 03/04/2023 [facility] DATE CREATED AUTHOR AUTHOR'S ORGANIZ ATION 06/21/2024 [facility] DATE CREATED AUTHOR AUTHOR'S ORGANIZ ATION 02/14/2025 [facility] DATE CREATED AUTHOR AUTHOR'S ORGANIZ ATION 08/12/2025 [facility] DATE CREATED AUTHOR AUTHOR'S ORGANIZ ATION 08/16/2025 [facility] Source Comments (unrecognize d section and content) In the event this informatio n is protected by the Federal Confidentiality of Alcohol and Drug Abuse Patient Records regulations: The Federal rules restrict any use of the information to criminally investigate or prosecute any alcohol or drug abuse patient.[facility] HospitalIn the event this information is protected by the Federal Confidentiality of Alcohol and Drug Abuse Patient Records regulations: The Federal rules restrict any use of the information to criminally investigate or prosecute any alcohol or drug abuse patient.[facility] Reason for Visit (unrecogniz ed section and content) ReasonCommentsReceived Outside Medical RecordsReceived Thyroid US report from [facility]. Indexed into chart.ReasonCommentsInsurance Authorization AnthemReasonCommentsFollow-upPituitary ProblemReasonCommentsThyroid Nodule Ultrasound 06/09/24.ReasonCommentsThyroid Nodule5 month ultrasound [facility] 12/23/24 ReasonCommentsOsteoarthritisSpecialtyDiagnoses / ProceduresReferred By Contact Referred To ContactOrthopaedic Surgery Diagnoses Primary osteoarthritis of right hip Isaura Garber, FLATTENING MACHINE OPERATOR [address] [place] [address] Phone: tel: fax: Ansley Chaves, DO [address] [facility] [address] [place], [place] Phone: tel: fax: Referral IDStatusReasonStart DateExpiration DateVisits RequestedVisits [id number] Specialty Services Required Care Teams (unrecognized sec tion and content) Team Status: Active Member Role Status Romero Quiroz MD Primary Care Provider Active Team Status: Inactive Member Role Status Dates Joseluis Quiroz MD Primary Care Provider Active Start: May 24, 2025 End: May 24, 2025Navdeep Arguello ProviderActiveStart: May 24, 2025 End: May 24, 2025 Team Status: Active Member Role Status Romero Quiroz MD Primary Care Provider Active Start: July 07, 2025 Rhea Camilo ProviderActiveStart: July 07, 2025 Team Status: Active Member Role Status Romero Quiroz MD Primary Care Provider Active Start: July 08, 2025 Navdeep Yang ProviderActiveStart: July 08, 2025 Team Status: Active Member Role Status Romero Quiroz MD Primary Care Provider Active Start: July 09, 2025 Pavel Brunson ProviderActiveStart: July 09, 2025 Team Status: Active Member Role Status Romero Quiroz MD Primary Care Provider Active Start: July 15, 2025 Pavel Brunson ProviderActiveStart: July 15, 2025 Team Status: Inactive Member Role Status Romero Quiroz MD Primary Care Provider Active Start: July 21, 2025 End: July 21, 2025Navdeep Arguello ProviderActiveStart: July 21, 2025 End: July 21, 2025 Team Status: Active Member Role Status Dates Joseluis Quiroz MD Primary Care Provider Active Start: April 15, 2025 Milan Hernandez MDAttending ProviderActiveStart: April 15, 2025 Team MemberRelationshipSpecialtyStart DateEnd Date Cabrera Dupont MD PCP - [facility]01/21/19 Team Status: Inactive Member Role Status Dates Joseluis Quiroz MD Primary Care Provider Active Start: March 06, 2024 End: March 06angel Patel FLATTENING MACHINE OPERATOR-CAttending ProviderActiveStart: March 06, 2024 End: March 06, 2024 Team Status: Inactive Member Role Status Dates Joseluis Quiroz MD Primary Care Provider Active Start: March 18, 2024 End: March 18atherine L Ly , DOAttending ProviderActiveStart: March 18, 2024 End: March 18, 2024 Team Status: Inactive Member Role Status Dates Joseluis Quiroz MD Primary Care Provider Active Start: April 14, 2024 End: April 144Catherine L Ly , DOAttending ProviderActiveStart: April 14, 2024 End: April 14, 2024 Team Status: Active Member Role Status Dates Joseluis Quiroz MD Primary Care Provider Active Start: April 14, 2024 Merly L Ly , DOAttending Provider, Other ProviderActiveStart: April 14, 2024 Team MemberRelationshipSpecialtyStart DateEnd Date Cabrera Dupont MD [facility] - [facility]01/21/19Team MemberRelationshipSpecialtyStart DateEnd Date Cabrera Dpuont MD [address] [place] [address] [place] [address] PCP [facility]11/30/20Team MemberRelationshipSpecialtyStart DateEnd Date Joseluis Quiroz MD [address] [place] [address] [facility] [place] [address] PCP - GeneralFamily Medicine03/23/24Team MemberRelationshipSpecialtyStart DateEnd Date Joseluis Quiroz MD [address] [facility] [place] [place] [address] PCP - GeneralFamily Medicine03/23/24Team MemberRelationshipSpecialtyStart DateEnd Date Joseluis Quiroz MD [address] [facility] [place] [address] PCP - GeneralFamily Medicine03/23/24Team MemberRelationshipSpecialtyStart DateEnd Date Joseluis Quiroz MD [address] [facility] [place] [address] PCP - GeneralFamily Medicine03/23/24Team MemberRelationshipSpecialtyStart DateEnd Date Joseluis Quiroz MD [address] [facility] [place] [address] PCP - GeneralFamily Medicine03/23/24Team MemberRelationshipSpecialtyStart DateEnd Date Joseluis Quiroz MD [address] [facility] [place] [address] PCP - GeneralFamily Medicine03/23/24Team MemberRelationshipSpecialtyStart DateEnd Date Joseluis Quiroz MD PCP - GeneralFamily Medicine03/23/24 Team Status: Inactive Member Role Status Dates Joseluis Quiroz MD Primary Care Provider Active Start: 2025 End: August 10, 2025Stella Arguello ProviderActiveStart: 2025 End: August 10AZIZA ArtCAtkelley ProviderActiveStart: 2025 End: 2025 Team Status: Active Member Role Status Dates Joseluis Quiroz MD Primary Care Provider Active Start: 2025 Stella Arguello ProviderActiveStart: 2025 Maia Lucas ProviderActiveStart: 2025 Goals (unrecognized section and content) Goals may [...] BE BASED ON THE PRIMARY CLINICAL RECORDS. [facility] uiu [facility]. provides no warranty or guarantee of the accuracy or completeness of information in this document.
[2025-08-31 12:40] LABS: Hematocrit 42.5 % (42.0-54.0); Hemoglobin 14.0 g/dL (14.0-18.0); Immature Granulocytes Abs Auto 0.02 10^3/uL (0.00-0.03); Immature Granulocytes Pct Auto 0.4 % (0.0-0.5); Lymphocytes Absolute Auto 1.4 10^3/uL (1.2-3.8); Mean Corpuscular HGB Conc 32.9 g/dL (29.9-35.2); Mean Corpuscular Hemoglobin 29.5 pg (25.9-34.0); Mean Corpuscular Volume 89.5 fL (80.0-94.0); Platelet Count 224 10^3/uL (150-450); Red Blood Count 4.75 10^6/uL (4.70-6.10); White Blood Count 5.3 10^3/uL (4.0-11.0)
[2025-08-31 13:02] LABS: Alanine Aminotransferase 25 U/L (16-63); Albumin Globulin Ratio 1.0; Albumin Level 3.8 g/dL (3.4-5.0); Alkaline Phosphatase 64 U/L (46-116); Anion Gap 12.9; Aspartate Amino Transferase 13 U/L (15-37); Blood Urea Nitrogen 13.0 mg/dL (7.0-18.0); Calcium 9.3 mg/dL (8.5-10.1); Carbon Dioxide 26.4 mmol/L (21.0-32.0); Chloride 104 mmol/L (98-107); Estimated GFR (African America >60 (>=60 mL/min/1.73m^2); Estimated GFR (Non-African Ame >60 (>=60 mL/min/1.73m^2); Globulin 3.9 g/dL; Glucose 164 mg/dL (74-106); Potassium 4.3 mmol/L (3.5-5.1); Sodium 139 mmol/L (136-145); Thyroid Stimulating Hormone 1.183 uIU/mL (0.358-3.740); Total Protein 7.7 g/dL (6.4-8.2)
[2025-08-31 13:32] LABS: Iron 58.0 ug/dL (65.0-175.0); Percent Iron Saturation 14.1 %; Total Iron Binding Capacity 412.0 ug/dL (250.0-450.0)
[2025-08-31 14:39] LABS: Ferritin 25.0 ng/mL (26.0-388.0); Folate 16.20 ng/mL (8.60-58.90)
[2025-09-01 04:08] LABS: Vitamin B12 541 pg/mL (232-1245)
[2025-09-02 16:09] LABS: Albumin 3.5 g/dL (2.9-4.4); Alpha-1-Globulin 0.1 g/dL (0.0-0.4); Alpha-2-Globulin 1.1 g/dL (0.4-1.0); Free Kappa Lt Chains,S 17.2 mg/L (3.3-19.4); Free Lambda Lt Chains,S 13.8 mg/L (5.7-26.3); Gamma Globulin 0.9 g/dL (0.4-1.8); Immunoglobulin A, Qn, Serum 255 mg/dL (61-437); Kappa/Lambda Ratio,S 1.25 (0.26-1.65)
== END 2025-08-31 12:03 | disposition home or self-care (01) ==
LOC: LAB 12:06
PROVIDERS: PCP Family Medicine; Visit Provider Nurse Practitioner Adult Health
DX: D64.9 Anemia, unspecified (principal); R53.83 Other fatigue
CPT/HCPCS: 36415; 80053; 82607; 82728; 82746; 82784; 83521; 83540; 83550; 84155; 84165; 84443; 85025; 86334